=== PATIENT | male | born 1955 | race Caucasian/White ===

== ENCOUNTER → 2017-07-25 | Outpatient (CLI) | payer OTHER ==
[~2017-07-25] MED LIST: APRACLONIDINE 1% 0.1 ML OPH ONE; PILOCARPINE 2% 15ML OPH ONE; PROPARACAINE 0.5% 15 ML OPH ONE
== END | disposition home or self-care (01) ==
LOC: RAD 09:59
PROVIDERS: ATTEND Ophthalmology
DX: H40.20X0 Unspecified primary angle-closure glaucoma, stage unspecified (principal)
CPT/HCPCS: 66761; Z7610

== ENCOUNTER → 2017-08-27 | Outpatient (CLI) | END | disposition home or self-care (01) ==

== ENCOUNTER 2018-06-09 05:49 | Day surgery (SDC) | END 2018-06-09 12:28 | disposition home or self-care (01) ==

== ENCOUNTER → 2018-10-31 | Day surgery (SDC) | payer OTHER ==
[~2018-10-31] VITALS: Ht 177.8 cm; Wt 103.0 kg
[2018-10-31] VITALS (8 sets, daily range): BP systolic 101–118; BP diastolic 57–77; PULSE 82–100; RESP 13–18; Ht 177.8 cm; Wt 103.0 kg
[~2018-10-31] MED LIST changes: +ACETAMINOPHEN 325 MG TAB ONE; +ACETAMINOPHEN 325 MG TAB PO PRN; +AMIO200T4 PO; +APIX5TAB PO; -APRACLONIDINE 1% 0.1 ML OPH ONE; +ATOR40TA68 PO; +CLOP75TA27 PO; +DIGO125T19 ORAL; +EMPA25TA PO; +FENTAnyl 50 MCG/ML VIAL ONE; +GABA-526 PO; +GABA300C16 PO; +HEPARIN 1000 UNITS/ML 10 ML INJ ONE; +IODIXANOL LOCM 100 ML BTL ONE; +LACTATED RINGER'S 500 ML IV SCH; +LANT3I SC; +LIDOCAINE 1% (MDV) 20 ML INJ ONE; +METF100010 PO; +MIDAZOLAM 1 MG/ML 2 ML INJ ONE; +MTF1000T PO; +NAPR-688 PO; -PILOCARPINE 2% 15ML OPH ONE; -PROPARACAINE 0.5% 15 ML OPH ONE; +RIVA20TA5 PO; +TAPE100T6 PO
--- NOTE | 2018-10-31 13:01 | SIPON ---
Date/Time of Note Date/Time of Note DATE: 10/31/18 TIME: 12:59 Operative Report Preoperative Diagnosis R heel gangrene Postoperative Diagnosis same Operation/Procedure Performed aortogram, RLE runoff, R EXECUTIVE ADMINISTRATIVE ASST , R DOUGLAS angioplasty Surgeon see signature line assistant accounting manager none Anesthesia: moderate sedation Estimated blood loss: minimal Transfusion Required none Specimen none Grafts/Implants none Complications none VERO MAHONEY MD Oct 31, 2018 13:01
--- NOTE | 2018-10-31 14:18 | OPR ---
DATE OF OPERATION: 10/31/2018 PREOPERATIVE DIAGNOSIS: Right heel gangrene and nonhealing ulcer. POSTOPERATIVE DIAGNOSIS: Right heel gangrene and nonhealing ulcer. PROCEDURE PERFORMED: Aortogram, right lower extremity runoff and percutaneous angioplasty of the pos terior tibial artery and the anterior tibial artery. SURGEON: Vero Sheppard MD ANESTHESIA: Local with sedation. ESTIMATED BLOOD LOSS: Minimal. COMPLICATIONS: No intraprocedural complications. INDICATIONS: A 62-year-old diabetic hypertensive gentleman with CHF and ischemic cardiomyopathy. He presented months ago with a gangrenous right heel. It has been debrided extensively. I did an elvira ogram on him about 6 months ago and the posterior tibial artery is completely occluded distally. The anterior tibial artery had severe stenosis which I treated but he has just not been progressing. I no longer can feel the dorsalis pedis pulse. I brought him back today for angiogram and possible int ervention. PROCEDURE IN DETAILS: The patient was brought to the aquatic laborer and was placed on the table in the sup ine position. Left groin was prepped and draped in the usual sterile fashion. I began by infiltrkali suarez over the left common femoral artery using about 10 mL of 1% Xylocaine. I used a micropuncture nee dle to enter the artery under ultrasound guidance. An 0.018 wire was inserted through the needle int o the artery and then a 6-Mosotho sheath was advanced over the wire into the artery. I then advanced a Bentson wire and then Omniflush catheter into the infrarenal aorta, did an infrarenal aortogram. I then used the catheter and the wire to go up and over the bifurcation. I advanced the catheter down into the left SFA and then did runoff down the left lower extremity. FINDINGS OF ANGIOGRAPHY: The infrarenal aorta, internal and external iliac arteries bilaterally are widely patent. Both common, superficial and profunda femoral artery are widely patent. On the right , the popliteal artery is widely patent below the knee. The TP trunk is patent. The peroneal artery is patent and sort of dissipates in the mid calf. It is diseased. Posterior tibial artery has lynnette re diffuse disease from the mid portion down and then there is no reconstitution of the foot. I do n ot see any posterior tibial vessels in the foot itself. The anterior tibial artery had severe recurr ent stenosis about I would say 75% proximally and the rest of the anterior tibial artery is patent ac ross the ankle into the foot with patent dorsalis pedis, so I decided to treat the anterior tibial ar marii for sure. I gave the patient 5000 units of heparin intravenously, Advantage wire through the sh eath and into the left popliteal. I then advanced a 6-Mosotho 70 cm Loami Destination sheath over the wire into the right popliteal. I then used the Advantage wire and NaviCross catheter to engage t he anterior tibial artery and then used 0.014 Command wire which I advanced down through the stenosis in the proximal anterior tibial. I then treated the anterior tibial with severe stenosis with a 3 m m x 10 cm balloon to 12 atmospheres with no residual stenosis. It looked good. There was good flow down into the dorsalis pedis. There are ulcers at the heel so I decided to open up the posterior tib ial and get some flow even though it is occluded distally to see if I can get some flow down into the heel region, so I backed out the Command wire and then I advanced it down into the posterior tibial and I was able to get the wire to go all the way down into the foot. Even though the vessels were oc cluded proximal to that and I do not see any runoff, I was able to get the wire all the way down, so then I used a 2.5 x 22 cm balloon. I ballooned the posterior tibial artery below the medial malleolu s all the way up to its origin to 12 atmospheres. Completion angiogram showed the posterior tibial w as wide open all the way down across the ankle into the foot and there was very little runoff distall y through the plantar but there was several branches going towards the heel area, so the perfusion wa s definitely improved although not perfect. There was no complete pedal arch, but there was now flow into the heel region through the posterior tibial artery. The dorsalis pedis again was wide open an d anterior tibial now is wide open. I was happy with the results. I removed all the catheter sheath s and wires. I closed the left groin puncture site using a 6-Mosotho Angio-Seal device with good hemo stasis. Sterile dressing was applied. The patient was transferred to recovery room in stable condit ion. He tolerated the procedure well without any complications. Dictated By: VERO TAYLOR/DEXTER Conf#: [id number] DID#: [id number] CC: KIM ODELL MD; LIANA MANRIQUEZ DPM;*EndCC*
== END | disposition home or self-care (01) ==
LOC: SDS 10:09
PROVIDERS: ATTEND Surgery Vascular Surgery
DX: L97.419 Non-pressure chronic ulcer of right heel and midfoot with unspecified severity (principal); I96 Gangrene, not elsewhere classified; E11.9 Type 2 diabetes mellitus without complications; I10 Essential (primary) hypertension; I73.9 Peripheral vascular disease, unspecified
CPT/HCPCS: 75630; 80048; 81003; 82962; 85025; 85610; 85730; C1725; C1760; C1769; C1894; J1644; J2250; J3010; Q9967

== ENCOUNTER 2019-01-09 14:04 | Inpatient (IN) | payer OTHER ==
[~2019-01-09] VITALS: Ht 177.8 cm; Wt 102.7 kg
[~2019-01-09 14:04] MED LIST changes: -ACETAMINOPHEN 325 MG TAB ONE; -ACETAMINOPHEN 325 MG TAB PO PRN; -APIX5TAB PO; -ATOR40TA68 PO; -FENTAnyl 50 MCG/ML VIAL ONE; -GABA300C16 PO; -HEPARIN 1000 UNITS/ML 10 ML INJ ONE; -IODIXANOL LOCM 100 ML BTL ONE; -LACTATED RINGER'S 500 ML IV SCH; -LIDOCAINE 1% (MDV) 20 ML INJ ONE; -MIDAZOLAM 1 MG/ML 2 ML INJ ONE
[2019-01-09] MEDS ORDERED: VANCOMYCIN 1 GM (PMX) 250 ML IVPB STA (17:10)
--- NOTE | 2019-01-09 17:10 | ERD ---
ER Documentation Chief Complaint Chief Complaint sent by wound care for R foot wound HPI 63-year-old male with history of ischemic cardiomyopathy with AICD, diabetes and atrial fibrillation presenting for right heel wound. He is being seen by Dr. Sheppard in wound clinic and was told to go to the ER due to worsening condition. The wound began to close about a year ago. He developed necrosis of the heel which was debrided at another hospital. Angiogram was done about 2 months ago showing stenosis in the proximal anterior tibial artery with diffuse disease in the posterior tibial artery. He was able to get a balloon procedure done in the posterior tibial artery. Yesterday he was seen by Dr. Sheppard who could not feel dorsalis pedal pulse anymore. He stated in his note that "his heel wound looks terrible. There is more necrosis around the edges. He is having more pain". He recommended patient to go to the emergency room for admission and IV antibiotics. He has recommended the patient have a bypass surgery versus am putation. Patient is complaining of moderate to severe pain in the right heel, nonradiating, worse with touch and ambulation. No associated fevers or chills. No alleviating factors. He has bilateral foot burning pain at baseline due to his diabetes. ROS All systems reviewed and are negative except as per history of present illness. Medications Home Meds Reported Medications Amiodarone Hcl* (Amiodarone Hcl*) 200 Mg Tablet, 200 MG PO DAILY, #30 TAB 01/09/19 Digoxin* (Digitek*) 125 Mcg Tablet, 0.125 MG PO DAILY, TAB 01/09/19 Rivaroxaban* (Xarelto*) 20 Mg Tablet, 20 MG PO WITH DINNER, TAB 01/09/19 Clopidogrel Bisulfate* (Clopidogrel Bisulfate*) 75 Mg Tablet, 75 MG PO DAILY, #3 0 TAB 01/09/19 Empagliflozin (Jardiance) 25 Mg Tablet, 25 MG PO DAILY, TAB 01/09/19 Insulin Glargine,Hum.rec.anlog (Basaglar Kwikpen U-100) 100 Unit/1 Ml Insuln .pen, 18 UNIT SC QHS, EA 01/09/19 Sulfamethoxazole/Trimethoprim* (Bactrim Ds* Tablet) 1 Each Tablet, 1 TAB PO BID, TAB FOR 10 DAYS,START TAKING 01/06/19 01/09/19 Tapentadol Hcl (Nucynta) 100 Mg Tablet, 100 MG PO BID, TAB 01/09/19 Gabapentin* (Gabapentin*) 600 Mg Tablet, 600 MG PO DAILY, #60 TAB 01/09/19 Metformin Hcl* (Metformin Hcl*) 1,000 Mg Tablet, 1000 MG PO WITH BREAKFAST DINNE, #60 TAB 01/09/19 Discontinued Reported Medications Amiodarone Hcl* (Amiodarone Hcl*) 200 Mg Tablet, 200 MG PO DAILY, #30 TAB 10/31/18 Digoxin* (Digox*) 125 Mcg Tablet, 125 MCG ORAL am 10/31/18 Gabapentin* (Gabapentin*) 600 Mg Tablet, 600 MG PO hs, #60 TAB 10/31/18 Naproxen* (Naproxen*) 500 Mg Tablet, 500 MG PO DAILY, TAB 10/31/18 Rivaroxaban* (Xarelto*) 20 Mg Tablet, 20 MG PO WITH DINNER, TAB 10/31/18 Clopidogrel Bisulfate (Clopidogrel) 75 Mg Tablet, 75 MG PO DAILY, #30 TAB 10/31/18 Tapentadol Hcl (Nucynta) 100 Mg Tablet, 100 MG PO Q4 PRN for PAIN LEVEL 6-10, TAB 10/31/18 Empagliflozin (Jardiance) 25 Mg Tablet, 25 MG PO DAILY, TAB 10/31/18 Insulin Glargine* (Lantus*) 100 Unit/Ml Soln, 20 UNIT SC QHS, #1 VIAL 10/31/18 Metformin* (Glucophage*) 1,000 Mg Tablet, 1000 MG PO WITH BREAKFAST DINNE, #30 TAB 10/31/18 Metformin Hcl* (Metformin Hcl*) 1,000 Mg Tablet, 1000 MG PO WITH BREAKFAST DINNE, #60 TAB 06/09/18 Amiodarone Hcl* (Amiodarone Hcl*) 200 Mg Tablet, 200 MG PO DAILY, #30 TAB 06/09/18 Allergies Allergies: Coded Allergies: No Known Allergy (Unverified , 01/09/19) PMhx/Soc History of Surgery: Yes (CARDIAC STENTS, CABG,AICD,EPIDURALS FOR PAIN) Anesthesia Reaction: No Hx 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 Disorder: Yes (NEUROPATHY) Hx Respiratory Disorders: Yes (PNA) Hx Cardiac Disorders: Yes (CAD WITH STENTS, ) Hx Psychiatric Problems: No Hx Miscellaneous Medical Probl: No Hx Alcohol Use: Yes (1 YEAR AGO) Hx Substance Use: No Hx Tobacco Use: Yes FmHx Family History: diabetes Physical Exam Vitals Vital Signs Date Temp Pulse Resp B/P (MAP) Pulse Ox O2 O2 Flow FiO2 Time Delivery Rate 01/09/19 68 14 112/76 98 Room Air 18:00 (88) 01/09/19 71 16 107/68 98 Room Air 16:55 (81) 01/09/19 98.1 77 20 107/62 97 16:55 (77) Physical Exam Const: No acute distress, nontoxic Head: Atraumatic Eyes: Normal Conjunctiva ENT: Normal External Ears, Nose and Mouth. Neck: Full range of motion. No meningismus. Resp: Clear to auscultation bilaterally Cardio: Regular rate and rhythm, no murmurs. 1+ DP pulse right lower extremity, difficult to palpate right PT pulse. 1+ DP and PT pulses left lower extremity Abd: Soft, non tender, non distended. Normal bowel sounds Skin: See extremity exam. No petechiae or rashes Back: No midline or flank tenderness Ext: No cyanosis, or edema. right foot with 3 x 3 cm deep wound over the calcaneus. Surrounding erythema. No active discharge. Tender to palpation surrounding the wound. Foot otherwise nontender without erythema. Neur: Awake and alert Psych: Normal Mood and Affect Result Diagram: 01/09/19171601/09/191716 Results 24 hrs Laboratory Tests Test 01/09/19 17:17 White Blood Count 9.9 10^3/ul Red Blood Count 4.70 10^6/ul Hemoglobin 13.8 g/dl Hematocrit 43.0 % Mean Corpuscular Volume 91.5 fl Mean Corpuscular Hemoglobin 29.4 pg Mean Corpuscular Hemoglobin Concent 32.1 g/dl Red Cell Distribution Width 14.6 % Platelet Count 257 10^3/UL Mean Platelet Volume 11.0 fl Immature Granulocytes % 0.400 % Neutrophils % 58.0 % Lymphocytes % 29.8 % Monocytes % 8.4 % Eosinophils % 3.1 % Basophils % 0.3 % Nucleated Red Blood Cells % 0.0 /100WBC Immature Granulocytes # 0.040 10^3/ul Neutrophils # 5.7 10^3/ul Lymphocytes # 3.0 10^3/ul Monocytes # 0.8 10^3/ul Eosinophils # 0.3 10^3/ul Basophils # 0.0 10^3/ul Nucleated Red Blood Cells # 0.0 10^3/ul Erythrocyte Sedimentation Rate 26 mm/Hr Prothrombin Time 12.4 Sec Prothrombin Time Ratio 1.0 INR International Normalized Ratio 0.91 Activated Partial Thromboplast Time 23.5 Sec Sodium Level 141 mmol/L Potassium Level 4.9 mmol/L Chloride Level 108 mmol/L Carbon Dioxide Level 21 mmol/L Anion Gap 12 Blood Urea Nitrogen 18 mg/dl Creatinine 0.57 mg/dl Est Glomerular Filtrat Rate mL/min > 60 mL/min Glucose Level 125 mg/dl Calcium Level 9.8 mg/dl Total Bilirubin 0.2 mg/dl Direct Bilirubin 0.00 mg/dl Indirect Bilirubin 0.2 mg/dl Aspartate Amino Transf (AST/SGOT) 26 IU/L Alanine Aminotransferase (ALT/SGPT) 12 IU/L Alkaline Phosphatase 102 IU/L C-Reactive Protein < 0.5 mg/dl Total Protein 7.9 g/dl Albumin 4.3 g/dl Globulin 3.60 g/dl Albumin/Globulin Ratio 1.19 Current Medications Medications Dose Sig/Pritesh Start Time Status Last (Trade) Ordered Route PRN Stop Time Admin Dose Reason Admin Vancomycin 250 ml @ ONCE STAT 01/09/19 01/09/19 HCl 125 mls/hr IVPB 17:10 01/09/19 18:06 19:09 Cefepime HCl 50 ml @ ONCE ONCE 01/09/19 DC 01/09/19 100 mls/hr IVPB 17:30 01/09/19 17:32 17:59 Morphine 6 mg ONCE ONCE 01/09/19 DC 01/09/19 Sulfate IV 18:30 01/09/19 18:14 (morphine) 18:31 Ondansetron 4 mg BRIDGE ORDER 01/09/19 HCl (Zofran PRN IV 18:30 01/10/19 Inj) NAUSEA/VOMITI 18:29 NG 650 mg ER BRIDGE 01/09/19 Acetaminophen PRN PO 18:30 01/10/19 (Tylenol .MILD PAIN 18:29 Tab) 1-3 OR TEMP Procedures/MDM EMERGENT LABS AND DIAGNOSTIC STUDIES: Lab Results above were reviewed and interpreted by me. CBC: no anemia or evidence of infection CMP: No evidence of clinically significant electrolyte abnormality, acidosis, renal failure, hypoglycemia, liver disease, or biliary obstruction ESR elevated but CRP is within normal limits Coags unremarkable, no evidence of coagulopathy 1 12-lead EKG was interpreted by Liz Avalos MD: Normal Sinus Rhythm Normal axis Normal intervals No acute ST or T wave changes suggestive of acute ischemia or STEMI. Radiology Results as interpreted by Radiology below were reviewed by SJamie Avalos MD: Chest x-ray shows no acute abnormalities Initial Nursing notes reviewed. Previous Medical Records requested via the Electronic Health Record. EMERGENCY DEPARTMENT COURSE / MEDICAL DECISION MAKING: Patient is presenting with left heel chronic wound with acute infection. There are no signs of sepsis. Patient was given pain medications and started on IV antibiotics. Blood cultures were collected prior to IV antibiotics. There is n o evidence of critical ischemic limb. Patient will be admitted for further management and surgical intervention. Accepting Care Team: Current data and ongoing care discussed. Time: Time of admission Primary Provider: Dr. Mann Consulting: Dr. Sheppard Outstanding Data: none Departure Diagnosis: Primary Impression: Infected wound Additional Impression: Chronic wound of extremity Condition: SUSAN Malik MD January 09, 2019 17:10
[2019-01-09] MEDS ORDERED: CEFEPIME 2GM/50 ML (PMX) 50 ML IVPB ONE (17:30)
[2019-01-09] MEDS ORDERED: METF100010 PO (17:47)
[2019-01-09] MEDS ORDERED: TAPE100T6 PO (17:48)
[2019-01-09] MEDS ORDERED: GABA-526 PO (17:48)
[2019-01-09] MEDS ORDERED: INSU100I33 SC (17:49)
[2019-01-09] MEDS ORDERED: SULF1TAB31 PO (17:49)
[2019-01-09] MEDS ORDERED: CLOP75TA19 PO (17:50)
[2019-01-09] MEDS ORDERED: RIVA20TA5 PO (17:50)
[2019-01-09] MEDS ORDERED: EMPA25TA PO (17:50)
[2019-01-09] MEDS ORDERED: AMIO200T4 PO (17:51)
[2019-01-09] MEDS ORDERED: DIGO125T PO (17:51)
[2019-01-09] MEDS ORDERED: ACETAMINOPHEN 325 MG TAB PO PRN ×2 (18:30→20:30)
[2019-01-09] MEDS ORDERED: morphine 10 MG INJ IV ONE (18:30)
[2019-01-09] MEDS ORDERED: ONDANSETRON 4 MG INJ IV PRN ×2 (18:30→20:30)
[2019-01-09 20:00] VITALS: BP 119/74; PULSE 69; RESP 19
[2019-01-09 20:19] VITALS: Ht 177.8 cm; Wt 102.7 kg
[2019-01-09] MEDS: ACCU-CHEK XX SCH (21:00)
[2019-01-09] MEDS ORDERED: GLUCAGON 1 MG INJ IM PRN (21:30)
[2019-01-09] MEDS ORDERED: GLUCOSE GEL 15 GRAM TUBE PO PRN ×2 (21:30)
[2019-01-09] MEDS ORDERED: GLUCOSE GEL 15 GRAM TUBE BUCCAL PRN (21:30)
[2019-01-09] MEDS ORDERED: DEXTROSE 50% 50 ML SYRINGE IV PRN ×2 (21:30)
[2019-01-09] MEDS: morphine 4 MG/ML VIAL IV PRN (21:49)
[2019-01-09] MEDS ORDERED: TRIMETHOPRIM/SULFAMETHOX (DS) TAB PO SCH (22:30)
[2019-01-09] MEDS ORDERED: INSULIN GLARGINE [LANtus] 3 ML PEN SC SCH (22:30)
[2019-01-09] MEDS: INSULIN ASPART [NOVOLOG] 3 ML PEN SC SCH (23:33)
[2019-01-09] MEDS: INSULIN GLARGINE [LANTus] (100 UNITS/ML) SYG SC SCH (23:36)
--- NOTE | 2019-01-10 00:02 | HP ---
DATE OF ADMISSION: 01/09/2019 CHIEF COMPLAINT: Necrotic right heel wound. HISTORY OF PRESENT ILLNESS: The patient is a 63-year-old gentleman with history of coronary artery d isease, status post CABG, also status post AICD placement. The patient also has history of hypertens ion, diabetes, peripheral vascular disease, status post aortogram and right lower extremity runoff an d percutaneous angioplasty of the posterior tibial artery and anterior tibial artery in 10/2018. The patient, however, continued to have worsening of his wound. The patient is being followed by Dr. Claus Mata from podiatry standpoint and Dr. Bakari Sheppard from a medical standpoint. The patient kassie torres is noncompliant and has missed several appointments in ____. In 11/2018, he underwent excisio nal debridement of the right heel. The patient apparently was also placed on oral antibiotic as an o utpatient. Details are not available. The patient back in October 2018 had a wound culture from [facility] heel, which revealed E. coli, but only scant growth, which was sensitive to third generation ceph alosporins and aminoglycosides. The patient was sent to ER by Dr. Sheppard for further evaluation and m anagement. The patient was seen in ER and was found to have normal white count. The patient did not have any fever or chills. The patient did have significant pain and therefore, patient was admitted for evaluation and management. The patient did have his defibrillator go off a couple of times back in 11/2018. The patient went to see Dr. Ronnell Eduardo who had been following him from electrophysiology standpoint and possibly als o from cardiac standpoint. The patient was told that his AICD [facility] needs to be [facility], [facility] or not. The patient denied any anginal chest pain. N o reported fever or chills. No reported nausea or vomiting. No reported headache, dizziness or sync ope. REVIEW OF SYSTEMS: Rest of the review of systems is unremarkable. PAST MEDICAL HISTORY: As stated above. PAST MEDICAL HISTORY: As stated above. ALLERGIES: NONE. SOCIAL HISTORY: The patient intermittently smoked a few cigarettes. No history of alcohol abuse. N o history of drug abuse. FAMILY HISTORY: Noncontributory. PHYSICAL EXAMINATION: GENERAL: The patient is awake, alert and fairly oriented. VITAL SIGNS: Temperature 97.3, pulse 69, respiration 19, blood pressure 190/74, O2 saturation 99% on room air. HEENT: Atraumatic, normocephalic. Conjunctivae normal. Oropharynx clear. NECK: Supple. No mass or thyromegaly. CHEST: Fairly clear. CARDIOVASCULAR: S1, S2 normal, no murmur. ABDOMEN: Soft, nondistended and nontender. Bowel sounds plus. EXTREMITIES: No leg edema. Right heel has necrotic ulcer, I could not appreciate pedal pulses. Lef t foot pedal pulses palpable. NEUROLOGIC: The patient is awake, alert, fairly oriented with no gross focal deficit. LABORATORY DATA: WBC 9.9, hemoglobin 13.8 and platelet 257. Sodium 141, potassium 4.9, BUN 18 and c reatinine 0.5. Liver enzymes unremarkable. Coagulation profile unremarkable. EKG revealed normal s inus rhythm, no acute ST or T changes. IMPRESSION: 1. Right heel necrotic wound. 2. Peripheral vascular disease status post REFERRAL MANAGER, right lower extremity. 3. Coronary artery disease, status post coronary artery bypass graft. 4. Status post AICD. 5. Hypertension. 6. Diabetes. PLAN: The patient will be admitted on medical floor. The patient will be given a diabetic diet and will be continued on Lantus, oral hypoglycemic and sliding scale insulin. We will hold off on antico agulant, but will continue Plavix for now. Apparently, he was already on antibiotic, Septra. We nik l obtain ID consultation for further guidance. Cardiology consult with Dr. Foster has also been req uested for cardiac clearance. Echocardiogram will be obtained. Meanwhile, we will obtain lipid pane l and hemoglobin A1c. The patient did receive IV vancomycin and cefepime in the ER. I am not sure w hether new wound cultures were obtained or not. However, blood cultures were obtained. Meanwhile, C -reactive protein was less than 0.5. Sed rate is 26. We will continue to follow. Dictated By: KRISTIN ASTUDILLO/DEXTER Conf#: [id number] DID#: [id number]
[2019-01-10] MEDS: HYDROCODONE/APAP (5/325) TAB PO PRN ×4 (00:18→23:01)
[2019-01-10] MEDS: morphine 4 MG/ML VIAL IV PRN ×5 (01:57→20:33)
[2019-01-10] MEDS: ACCU-CHEK XX SCH ×5 (01:59→20:42)
[2019-01-10 02:44] VITALS: BP 97/57; PULSE 65; RESP 20
[2019-01-10 07:28] VITALS: BP 107/66; PULSE 65; RESP 20
[2019-01-10] MEDS: INSULIN ASPART [NOVOLOG] 3 ML PEN SC SCH ×4 (08:00→20:42)
[2019-01-10] MEDS: GABAPENTIN 300 MG CAP PO SCH (09:12)
[2019-01-10] MEDS: LINAGLIPTIN 5 MG TABLET PO SCH (09:14)
[2019-01-10] MEDS: EMPAGLIFLOZIN 10 MG TABLET PO SCH (09:14)
[2019-01-10] MEDS: CLOPIDOGREL 75 MG TAB PO SCH (09:15)
[2019-01-10] MEDS: AMIODARONE 200 MG TAB PO SCH (09:16)
[2019-01-10 12:37] VITALS: BP 141/83; PULSE 82; RESP 18
[2019-01-10] MEDS: DIGOXIN 0.125 MG TAB PO SCH (12:40)
--- NOTE | 2019-01-10 13:29 | PN ---
Date/Time of Note Date/Time of Note DATE: 01/10/19 TIME: 13:28 Assessment/Plan VTE Prophylaxis Risk score (from [facility] [place]0 risk: 5 SCD applied (from [facility] [place]): No SCD contraindicated: other Pharmacological prophylaxis: LMWH Lines/Catheters IV Catheter Type (from [facility]): [place] Assessment/Plan Hospital Course 1. Right heel necrotic wound. 2. Peripheral vascular disease status post LOGISTICS COORDINATOR, right lower extremity. 3. Coronary artery disease, status post coronary artery bypass graft. 4. Status post AICD. 5. Hypertension. 6. Diabetes. Result Diagram: 01/09/19 1717 01/10/19 0502 Results 24hrs Laboratory Tests Test 01/09/19 17:17 01/09/19 21:48 01/09/19 23:32 01/10/19 05:02 White Blood Count 9.9 Red Blood Count 4.70 Hemoglobin 13.8 L Hematocrit 43.0 Mean Corpuscular Volume 91.5 Mean Corpuscular 29.4 Hemoglobin Mean Corpuscular 32.1 Hemoglobin Concent Red Cell Distribution 14.6 H Width Platelet Count 257 Mean Platelet Volume 11.0 H Immature Granulocytes % 0.400 Neutrophils % 58.0 Lymphocytes % 29.8 Monocytes % 8.4 Eosinophils % 3.1 Basophils % 0.3 Nucleated Red Blood 0.0 Cells % Immature Granulocytes # 0.040 H Neutrophils # 5.7 Lymphocytes # 3.0 H Monocytes # 0.8 Eosinophils # 0.3 Basophils # 0.0 Nucleated Red Blood 0.0 Cells # Erythrocyte 26 H Sedimentation Rate Prothrombin Time 12.4 12.4 Prothrombin Time Ratio 1.0 1.0 INR International 0.91 0.91 Normalized Ratio Activated 23.5 26.2 Partial Thromboplast Time Sodium Level 141 140 Potassium Level 4.9 4.3 Chloride Level 108 105 Carbon Dioxide Level 21 28 Anion Gap 12 7 Blood Urea Nitrogen 18 16 Creatinine 0.57 L 0.56 L Est Glomerular Filtrat > 60 > 60 Rate mL/min Glucose Level 125 114 Calcium Level 9.8 9.2 Total Bilirubin 0.2 Direct Bilirubin 0.00 Indirect Bilirubin 0.2 Aspartate Amino 26 Transf (AST/SGOT) Alanine 12 L Aminotransferase (ALT/SG PT) Alkaline Phosphatase 102 C-Reactive Protein < 0.5 Total Protein 7.9 Albumin 4.3 Globulin 3.60 H Albumin/Globulin Ratio 1.19 Bedside Glucose 112 163 Hemoglobin A1c 7.6 H Triglycerides Level 89 Cholesterol Level 108 LDL Cholesterol, 65 Calculated HDL Cholesterol 25 L Cholesterol/HDL Ratio 4.3 Test 01/10/19 07:54 01/10/19 12:28 Bedside Glucose 109 92 Subjective 24 Hr Interval Summary Free Text/Dictation Patient complain of pain in right knee Exam/Review of Systems Exam Vitals Vital Signs Date Temp Pulse Resp B/P (MAP) Pulse Ox O2 O2 Flow FiO2 Time Delivery Rate 01/10/19 82 18 141/83 100 Room Air 12:37 (102) 01/10/19 97.5 07:28 Intake and Output 01/09/19 01/09/19 01/10/19 1515:00 23:00 07:00 IntakeIntake Total 120 ml BalanceBalance 120 ml Constitutional: well developed Head: normocephalic, atraumatic Neck: supple Respiratory: clear to auscultation Cardiovascular: regular rate and rhythm Gastrointestinal: soft, non-tender Extremities: normal pulses Results Results 24hrs Laboratory Tests Test 01/09/19 17:17 01/09/19 21:48 01/09/19 23:32 01/10/19 05:02 White Blood Count 9.9 Red Blood Count 4.70 Hemoglobin 13.8 L Hematocrit 43.0 Mean Corpuscular Volume 91.5 Mean Corpuscular 29.4 Hemoglobin Mean Corpuscular 32.1 Hemoglobin Concent Red Cell Distribution 14.6 H Width Platelet Count 257 Mean Platelet Volume 11.0 H Immature Granulocytes % 0.400 Neutrophils % 58.0 Lymphocytes % 29.8 Monocytes % 8.4 Eosinophils % 3.1 Basophils % 0.3 Nucleated Red Blood 0.0 Cells % Immature Granulocytes # 0.040 H Neutrophils # 5.7 Lymphocytes # 3.0 H Monocytes # 0.8 Eosinophils # 0.3 Basophils # 0.0 Nucleated Red Blood 0.0 Cells # Erythrocyte 26 H Sedimentation Rate Prothrombin Time 12.4 12.4 Prothrombin Time Ratio 1.0 1.0 INR International 0.91 0.91 Normalized Ratio Activated 23.5 26.2 Partial Thromboplast Time Sodium Level 141 140 Potassium Level 4.9 4.3 Chloride Level 108 105 Carbon Dioxide Level 21 28 Anion Gap 12 7 Blood Urea Nitrogen 18 16 Creatinine 0.57 L 0.56 L Est Glomerular Filtrat > 60 > 60 Rate mL/min Glucose Level 125 114 Calcium Level 9.8 9.2 Total Bilirubin 0.2 Direct Bilirubin 0.00 Indirect Bilirubin 0.2 Aspartate Amino 26 Transf (AST/SGOT) Alanine 12 L Aminotransferase (ALT/SG PT) Alkaline Phosphatase 102 C-Reactive Protein < 0.5 Total Protein 7.9 Albumin 4.3 Globulin 3.60 H Albumin/Globulin Ratio 1.19 Bedside Glucose 112 163 Hemoglobin A1c 7.6 H Triglycerides Level 89 Cholesterol Level 108 LDL Cholesterol, 65 Calculated HDL Cholesterol 25 L Cholesterol/HDL Ratio 4.3 Test 01/10/19 07:54 01/10/19 12:28 Bedside Glucose 109 92 Medications Medication Current Medications Ondansetron HCl (Zofran Inj) 4 mg BRIDGE ORDER PRN IV NAUSEA/VOMITING; Start 01/09/19 at 18:30; Stop 01/10/19 at 18:29 Acetaminophen (Tylenol Tab) 650 mg ER BRIDGE PRN PO .MILD PAIN 1-3 OR TEMP; Start 01/09/19 at 18:30; Stop 01/10/19 at 18:29 Amiodarone HCl (Cordarone) 200 mg DAILY PO Last administered on 01/10/19 09:16; Admin Dose 200 MG; Start 01/10/19 at 09:00 Clopidogrel Bisulfate (plaVIX) 75 mg DAILY PO Last administered on 01/10/19 09: 15; Admin Dose 75 MG; Start 01/10/19 at 09:00 Digoxin (Digoxin) 0.125 mg DAILY@1300 PO Last administered on 01/10/19at 12:40; Admin Dose 0.125 MG; Start 01/10/19 at 13:00 Gabapentin (Neurontin) 600 mg DAILY PO Last administered on 01/10/19 09:12; Admin Dose 600 MG; Start 01/10/19 at 09:00 Empaglifozin (Jardiance) 25 mg DAILY PO Last administered on 01/10/19 09:14; Admin Dose 25 MG; Start 01/10/19 at 09:00 Linagliptin (Tradjenta) 5 mg DAILY PO Last administered on 01/10/19 09:14; Admin Dose 5 MG; Start 01/10/19 at 09:00 Diagnostic Test (Pha) (Accu-Chek) 1 ea AC MEALS AND BEDTIME XX ; Start 01/09/19 at 21:00 Acetaminophen (Tylenol Tab) 650 mg Q4H PRN PO MILD PAIN(1-3)OR ELEVATED TEMP; Start 01/09/19 at 20:30 Acetaminophen/ Hydrocodone Bitart ([place] (5/325)) 1 tab Q4H PRN PO MODERATE PAIN LEVEL 4-6 Last administered on 01/10/19at 09:15; Admin Dose 1 TAB; Start 01/09/19 at 20:30 Morphine Sulfate (morphine) 3 mg Q4H PRN IV SEVERE PAIN LEVEL 7-10 Last administered on 01/10/19at 11:05; Admin Dose 3 MG; Start 01/09/19 at 20:30 Ondansetron HCl (Zofran Inj) 4 mg Q6H PRN IV NAUSEA AND/OR VOMITING; Start 01/09/19 at 20:30 Diagnostic Test (Pha) (Accu-Chek) 1 ea 02 XX ; Start 01/10/19 at 02:00 Insulin Aspart (Novolog Insulin Pen) NOVOLOG *MILD* ALGORITHM WITH MEALS BEDTIME SC ; Start 01/09/19 at 22:30 Miscellaneous Information 1 ea NOTE XX ; Start 01/09/19 at 21:30 Glucose (Glutose) 15 gm Q15M PRN PO DECREASED GLUCOSE; Start 01/09/19 at 21:30 Glucose (Glutose) 22.5 gm Q15M PRN PO DECREASED GLUCOSE; Start 01/09/19 at 21:30 Dextrose (D50w Syringe) 25 ml Q15M PRN IV DECREASED GLUCOSE; Start 01/09/19 at 21:30 Dextrose (D50w Syringe) 50 ml Q15M PRN IV DECREASED GLUCOSE; Start 01/09/19 at 21:30 Glucagon (Glucagen) 1 mg Q15M PRN IM DECREASED GLUCOSE; Start 01/09/19 at 21:30 Glucose (Glutose) 15 gm Q15M PRN BUCCAL DECREASED GLUCOSE; Start 01/09/19 at 21:30 Insulin Glargine (Lantus) 18 units QHS SC Last administered on 01/09/19at 23:36; Admin Dose 18 UNITS; Start 01/09/19 at 22:30 PARISA VARGAS January 10, 2019 13:29
[2019-01-10 15:51] VITALS: BP 115/57; PULSE 70; RESP 20
--- NOTE | 2019-01-10 18:52 | RADRPT ---
Echocardiogram Report Patient Name: SHANELL STEVENSONPatient ID: [id number] : 1955 (63y 1m)Study Date: 01/10/2019 11:40:20 AM Gender: MAccession #: [id number] Tech: Santiago Sortoagawa [facility] Location: [address] Ref.Physician: KRISTIN PRYOR Height(Cm): BSA: Weight(Kg): Quality: AdequateAccount #: Procedures: Echocardiographic Report: Transthoracic echocardiogram with complete 2D, M-Mode, and doppler examination. Indications: Pre-op. Measurements: 2D/M Mode Doppler Measurement Value Normal Range Measurement Value Normal Range LVIDd 2D 6.5 [ 4.2 - 5.8 ] cm AV Peak Leopoldo 1.2 [ 100.0 - 170.0 ] cm/sec LVIDs 2D 5.9 [ 2.5 - 4.0 ] cm AV Peak PG 6.0 [ 2.0 - 9.0 ] mmHg LVPWd 2D 0.9 [ 0.6 - 1.0 ] cm LVOT Peak Leopoldo 1.0 [ 70.0 - 110.0 ] cm/sec IVSd 2D 0.9 [ 0.6 - 1.0 ] cm LVOT Peak PG 4.0 [ 2.0 - 6.0 ] mmHg AoR Diam 2D 2.9 [ 2.6 - 3.4 ] cm MV E Peak Leopoldo 0.7 [ 60.0 - 130.0 ] cm/sec EDV 2D 215.0 [ 62.0 - 150.0 ] ml MV A Peak Leopoldo 0.5 [ 100.0 - 120.0 ] cm/sec ESV 2D 173.0 [ 21.0 - 61.0 ] ml MV E/A 1.5 [ 0.8 - 1.5 ] ratio EF 2D 19.5 [ 52.0 - 72.0 ] percent MV Decel Time 229 [ 104 - 258 ] msec LA Dimen 2D 4.4 [ 3.0 - 4.0 ] cm Lat E` Leopoldo 0.1 [ 10.0 - 15.0 ] cm/sec Lateral E/E` 7.5 [ 1.0 - 2.0 ] ratio MV E/A 1.5 [ 0.8 - 1.5 ] ratio TR Peak Leopoldo 2.4 [ 100.0 - 280.0 ] cm/sec TR Peak PG 23.0 mmHg RVSP 26.0 [ 10.0 - 36.0 ] mmHg Findings: Left Ventricle: Normal left ventricular wall thickness. Mild enlargement of left ventricle cavity. Severe global left ventricular systolic dysfunction. Ejection fraction is visually estimated at 25 %. Tissue Doppler/Mitral Doppler indices are consistent with pseudonormalization with mildly elevated left atrial pressure (Stage II diastolic dysfunction). Right Ventricle: Normal right ventricular size. Normal right ventricular systolic function. Linear artifact in right ventricle suggestive of catheter, pacer lead, or ICD lead. Left Atrium: There is mild enlargement of left atrium. Right Atrium: The right atrium is normal in size. Mitral Valve: Mild mitral leaflet calcification. Mild mitral annular calcification. Trace mitral regurgitation. Aortic Valve: No hemodynamically significant aortic stenosis by doppler. Aortic cusps appear mildly calcified. Tricuspid Valve: Normal appearance of the tricuspid valve. Estimated peak PA systolic pressure 26 mmHg. There is trace tricuspid regurgitation. Pericardium: Normal pericardium with no significant pericardial effusion. Aorta: Normal aortic root. IVC: Normal size and normal respiratory collapse consistent with normal right atrial pressure. Conclusions: Normal left ventricular wall thickness. Mild enlargement of left ventricle cavity. Severe global left ventricular systolic dysfunction. Ejection fraction is visually estimated at 25 %. Tissue Doppler/Mitral Doppler indices are consistent with pseudonormalization with mildly elevated left atrial pressure (Stage II diastolic dysfunction). There is mild enlargement of left atrium. Mild mitral leaflet calcification. Mild mitral annular calcification. Trace mitral regurgitation. Normal appearance of the tricuspid valve. Estimated peak PA systolic pressure 26 mmHg. There is trace tricuspid regurgitation. Electronically Signed By: Bakari Foster 2019-01-10 18:51:54 PDT
[2019-01-10 19:29] VITALS: BP 107/55; PULSE 70; RESP 18
[2019-01-10] MEDS: INSULIN GLARGINE [LANTus] (100 UNITS/ML) SYG SC SCH (20:46)
--- NOTE | 2019-01-10 23:12 | CONS ---
Assessment/Plan Assessment/Plan Hospital Course (Demo Recall) - infections of non-healing ulcer of R heel - chronic wound of R heel, in the past the wound culture grew E. coli - h/o OM of R foot, h/o 6 weeks of IV vancomycin and 2nd antibiotic in 2018 - trauma to R knee - CAD - PVD - h/o aortogram, RLE runoff and percutaneous angioplasty of the posterior tibial artery and the anterior tibial artery in 10/2018 - h/o CABG - h/o AICD placement - DM recommendations - pending: blood culture x2 - ordered: wound culture, aerobic and anaerobic bacteria, ESR, CT to r/o osteomyelitis - start IV vancomycin, cefepime and metronidazole (01/11/2019-); will adjust the antibiotics based on the final culture results management d/w Pt and his RN Consultation Date/Type/Reason Admit Date/Time January 09, 2019 at 18:17 Date of Consultation: January 10, 2019 Type of Consult ID Reason for Consultation non-healing ulcer of R heel Requesting Provider: KRISTIN PRYOR MD Date/Time of Note DATE: 01/10/19 TIME: 23:10 Hx of Present Illness This is a 63 yo male with CAD, PVD and DM who was sent to ER by Dr. Sheppard for infection of chronic wound of R heel. Approximately one year ago Pt sustained a small ulcer on R heel. This eventually became larger, necrotic and infected. Pt was seen by two ux consultant, and finally admitted at [facility]. Pt was informed that the infection was reaching the bone. As a result Pt completed 6 weeks of IV vancomycin and another antibiotic. His ID resourcing consultant at that time was Dr. Calvillo at [facility]. He was getting care from two podiatrists. The wound was lightly debrided. Pt was informed that the infection was controlled based on the results of his blood tests (?ESR). In 10/2018, Pt underwent artogram, RLE runoff and percutaneous angioplasty of the posterior tibial artery and the anterior tibial artery. Around that time, the wound of R heel became necrotic; started producing green, malodorous purulence. Pt has diminished sensation of toes and feet due to diabetic neuropathy. For the last two weeks, the wound continued to drain purulence, R foot became swollen and very painful. It is rated at 10 on the 1-10 scale. Pt was advised to present at ER of [facility] by Dr. Sheppard. As he entered the [facility] hospital, he fell off from the scooter and hit R knee. As a result of this, Pt is in considerable pain of RLE, including knee, hamstring and feel. Dr. Pryor requested ID consultation on this Pt. Constitutional: No chills, No diaphoresis, No febrile Eyes: no complaints ENT: sore throat Respiratory: cough Cardiovascular: no complaints Gastrointestinal: no complaints Genitourinary: no complaints Musculoskeletal: bone/joint pain, restricted range of motion, swelling Skin: skin lesions (wound of R heel has some yoana that looked pale) Neurologic: no complaints, other (normally has diminished sensation of b/l toes) Endocrine: no complaints Lymphatic: no complaints Psychological: no complaints, nl mood/affect Past Medical History Medical History: congestive heart failure, coronary artery disease, diabetes, high cholesterol, hypertension Home Meds Reported Medications Amiodarone Hcl* (Amiodarone Hcl*) 200 Mg Tablet, 200 MG PO DAILY, #30 TAB 01/09/19 Digoxin* (Digitek*) 125 Mcg Tablet, 0.125 MG PO DAILY, TAB 01/09/19 Rivaroxaban* (Xarelto*) 20 Mg Tablet, 20 MG PO WITH DINNER, TAB 01/09/19 Clopidogrel Bisulfate* (Clopidogrel Bisulfate*) 75 Mg Tablet, 75 MG PO DAILY, #30 TAB 01/09/19 Empagliflozin (Jardiance) 25 Mg Tablet, 25 MG PO DAILY, TAB 01/09/19 Insulin Glargine,Hum.rec.anlog (Basaglar Kwikpen U-100) 100 Unit/1 Ml Insuln.pen, 18 UNIT SC QHS, EA 01/09/19 Sulfamethoxazole/Trimethoprim* (Bactrim Ds* Tablet) 1 Each Tablet, 1 TAB PO BID, TAB FOR 10 DAYS,START TAKING 01/06/19 01/09/19 Tapentadol Hcl (Nucynta) 100 Mg Tablet, 100 MG PO BID, TAB 01/09/19 Gabapentin* (Gabapentin*) 600 Mg Tablet, 600 MG PO DAILY, #60 TAB 01/09/19 Metformin Hcl* (Metformin Hcl*) 1,000 Mg Tablet, 1000 MG PO WITH BREAKFAST DINNE, #60 TAB 01/09/19 Discontinued Reported Medications Amiodarone Hcl* (Amiodarone Hcl*) 200 Mg Tablet, 200 MG PO DAILY, #30 TAB 10/31/18 Digoxin* (Digox*) 125 Mcg Tablet, 125 MCG ORAL am 10/31/18 Gabapentin* (Gabapentin*) 600 Mg Tablet, 600 MG PO hs, #60 TAB 10/31/18 Naproxen* (Naproxen*) 500 Mg Tablet, 500 MG PO DAILY, TAB 10/31/18 Rivaroxaban* (Xarelto*) 20 Mg Tablet, 20 MG PO WITH DINNER, TAB 10/31/18 Clopidogrel Bisulfate (Clopidogrel) 75 Mg Tablet, 75 MG PO DAILY, #30 TAB 10/31/18 Tapentadol Hcl (Nucynta) 100 Mg Tablet, 100 MG PO Q4 PRN for PAIN LEVEL 6-10, TAB 10/31/18 Empagliflozin (Jardiance) 25 Mg Tablet, 25 MG PO DAILY, TAB 10/31/18 Insulin Glargine* (Lantus*) 100 Unit/Ml Soln, 20 UNIT SC QHS, #1 VIAL 10/31/18 Metformin* (Glucophage*) 1,000 Mg Tablet, 1000 MG PO WITH BREAKFAST DINNE, #30 TAB 10/31/18 Metformin Hcl* (Metformin Hcl*) 1,000 Mg Tablet, 1000 MG PO WITH BREAKFAST DINNE, #60 TAB 06/09/18 Amiodarone Hcl* (Amiodarone Hcl*) 200 Mg Tablet, 200 MG PO DAILY, #30 TAB 06/09/18 Medications Current Medications Amiodarone HCl (Cordarone) 200 mg DAILY PO Last administered on 01/10/19at 09:16; Admin Dose 200 MG; Start 01/10/19 at 09:00 Clopidogrel Bisulfate (plaVIX) 75 mg DAILY PO Last administered on 01/10/19at 09:15; Admin Dose 75 MG; Start 01/10/19 at 09:00 Digoxin (Digoxin) 0.125 mg DAILY@1300 PO Last administered on 01/10/19at 12:40; Admin Dose 0.125 MG; Start 01/10/19 at 13:00 Gabapentin (Neurontin) 600 mg DAILY PO Last administered on 01/10/19at 09:12; Admin Dose 600 MG; Start 01/10/19 at 09:00 Empaglifozin (Jardiance) 25 mg DAILY PO Last administered on 01/10/19at 09:14; Admin Dose 25 MG; Start 01/10/19 at 09:00 Linagliptin (Tradjenta) 5 mg DAILY PO Last administered on 01/10/19at 09:14; Admin Dose 5 MG; Start 01/10/19 at 09:00 Diagnostic Test (Pha) (Accu-Chek) 1 ea AC MEALS AND BEDTIME XX ; Start 01/09/19 at 21:00 Acetaminophen (Tylenol Tab) 650 mg Q4H PRN PO MILD PAIN(1-3)OR ELEVATED TEMP; Start 01/09/19 at 20:30 Acetaminophen/ Hydrocodone Bitart ([place] (5/325)) 1 tab Q4H PRN PO MODERATE PAIN LEVEL 4-6 Last administered on 01/10/19at 23:01; Admin Dose 1 TAB; Start 01/09/19 at 20:30 Ondansetron HCl (Zofran Inj) 4 mg Q6H PRN IV NAUSEA AND/OR VOMITING; Start 01/09/19 at 20:30 Diagnostic Test (Pha) (Accu-Chek) 1 ea 02 XX ; Start 01/10/19 at 02:00 Insulin Aspart (Novolog Insulin Pen) NOVOLOG *MILD* ALGORITHM WITH MEALS BEDTIME SC Last administered on 01/10/19at 17:44; Admin Dose 1 UNIT; Start 01/09/19 at 22:30 Miscellaneous Information 1 ea NOTE XX ; Start 01/09/19 at 21:30 Glucose (Glutose) 15 gm Q15M PRN PO DECREASED GLUCOSE; Start 01/09/19 at 21:30 Glucose (Glutose) 22.5 gm Q15M PRN PO DECREASED GLUCOSE; Start 01/09/19 at 21:30 Dextrose (D50w Syringe) 25 ml Q15M PRN IV DECREASED GLUCOSE; Start 01/09/19 at 21:30 Dextrose (D50w Syringe) 50 ml Q15M PRN IV DECREASED GLUCOSE; Start 01/09/19 at 21:30 Glucagon (Glucagen) 1 mg Q15M PRN IM DECREASED GLUCOSE; Start 01/09/19 at 21:30 Glucose (Glutose) 15 gm Q15M PRN BUCCAL DECREASED GLUCOSE; Start 01/09/19 at 21:30 Insulin Glargine (Lantus) 18 units QHS SC Last administered on 01/10/19at 20:46; Admin Dose 18 UNITS; Start 01/09/19 at 22:30 Carvedilol (Coreg) 3.125 mg BID PO ; Start 01/10/19 at 21:00 Morphine Sulfate (morphine) 4 mg Q4H PRN IV SEVERE PAIN LEVEL 7-10; Start 01/11/19 at 00:00 Allergies: Coded Allergies: No Known Allergy (Unverified , 01/09/19) Past Surgical History Past Surgical Hx: coronary bypass surgery Social History Alcohol Use: none Smoking Status: Never smoker Exam/Review of Systems Exam Vitals Vital Signs Date Temp Pulse Resp B/P (MAP) Pulse Ox O2 O2 Flow FiO2 Time Delivery Rate 01/10/19 98.6 70 18 107/55 98 19:29 (72) 01/10/19 Room Air 12:37 Intake and Output 01/09/19 01/09/19 01/10/19 1515:00 23:00 07:00 IntakeIntake Total 120 ml BalanceBalance 120 ml Constitutional: alert, oriented, well developed Psych: no complaints, nl mood/affect Head: normocephalic, atraumatic Eyes: nl conjunctiva, nl lids, nl sclera ENMT: nl external ears & nose, nl nasal mucosa & septum, mucosa pink and moist Neck: supple, non-tender Respiratory: clear to auscultation, normal air movement Cardiovascular: nl pulses, edema Gastrointestinal: soft, nl liver, spleen, non-tender Musculoskeletal: swelling (R knee, without effusion), other (large ulcer of R heel) Extremities: normal pulses 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: BOLT LABELER II-XII intact Skin: rash or lesions (large ulcer of R heel) Results Result Diagram: 01/09/19 1717 01/10/19 0502 Results 24hrs Laboratory Tests Test 01/09/19 23:32 01/10/19 05:02 01/10/19 07:54 01/10/19 12:28 Bedside Glucose 163 109 92 Prothrombin Time 12.4 Prothrombin Time Ratio 1.0 INR International 0.91 Normalized Ratio Activated 26.2 Partial Thromboplast Time Sodium Level 140 Potassium Level 4.3 Chloride Level 105 Carbon Dioxide Level 28 Anion Gap 7 Blood Urea Nitrogen 16 Creatinine 0.56 L Est Glomerular Filtrat > 60 Rate mL/min Glucose Level 114 Hemoglobin A1c 7.6 H Calcium Level 9.2 Triglycerides Level 89 Cholesterol Level 108 LDL Cholesterol, 65 Calculated HDL Cholesterol 25 L Cholesterol/HDL Ratio 4.3 Test 01/10/19 17:41 01/10/19 18:04 01/10/19 20:39 Bedside Glucose 170 145 Troponin I < 0.012 Medications Medication Current Medications Amiodarone HCl (Cordarone) 200 mg DAILY PO Last administered on 01/10/19 09:16; Admin Dose 200 MG; Start 01/10/19 at 09:00 Clopidogrel Bisulfate (plaVIX) 75 mg DAILY PO Last administered on 01/10/19 09:15; Admin Dose 75 MG; Start 01/10/19 at 09:00 Digoxin (Digoxin) 0.125 mg DAILY@1300 PO Last administered on 01/10/19 12:40; Admin Dose 0.125 MG; Start 01/10/19 at 13:00 Gabapentin (Neurontin) 600 mg DAILY PO Last administered on 01/10/19 09:12; Admin Dose 600 MG; Start 01/10/19 at 09:00 Empaglifozin (Jardiance) 25 mg DAILY PO Last administered on 01/10/19 09:14; Admin Dose 25 MG; Start 01/10/19 at 09:00 Linagliptin (Tradjenta) 5 mg DAILY PO Last administered on 01/10/19 09:14; Admin Dose 5 MG; Start 01/10/19 at 09:00 Diagnostic Test (Pha) (Accu-Chek) 1 ea AC MEALS AND BEDTIME XX ; Start 01/09/19 at 21:00 Acetaminophen (Tylenol Tab) 650 mg Q4H PRN PO MILD PAIN(1-3)OR ELEVATED TEMP; Start 01/09/19 at 20:30 Acetaminophen/ Hydrocodone Bitart ([place] (5/325)) 1 tab Q4H PRN PO MODERATE PAIN LEVEL 4-6 Last administered on 01/10/19at 23:01; Admin Dose 1 TAB; Start 01/09/19 at 20:30 Ondansetron HCl (Zofran Inj) 4 mg Q6H PRN IV NAUSEA AND/OR VOMITING; Start 01/09/19 at 20:30 Diagnostic Test (Pha) (Accu-Chek) 1 ea 02 XX ; Start 01/10/19 at 02:00 Insulin Aspart (Novolog Insulin Pen) NOVOLOG *MILD* ALGORITHM WITH MEALS BEDTIME SC Last administered on 01/10/19at 17:44; Admin Dose 1 UNIT; Start 01/09/19 at 22:30 Miscellaneous Information 1 ea NOTE XX ; Start 01/09/19 at 21:30 Glucose (Glutose) 15 gm Q15M PRN PO DECREASED GLUCOSE; Start 01/09/19 at 21:30 Glucose (Glutose) 22.5 gm Q15M PRN PO DECREASED GLUCOSE; Start 01/09/19 at 21:30 Dextrose (D50w Syringe) 25 ml Q15M PRN IV DECREASED GLUCOSE; Start 01/09/19 at 21:30 Dextrose (D50w Syringe) 50 ml Q15M PRN IV DECREASED GLUCOSE; Start 01/09/19 at 21:30 Glucagon (Glucagen) 1 mg Q15M PRN IM DECREASED GLUCOSE; Start 01/09/19 at 21:30 Glucose (Glutose) 15 gm Q15M PRN BUCCAL DECREASED GLUCOSE; Start 01/09/19 at 21:30 Insulin Glargine (Lantus) 18 units QHS SC Last administered on 01/10/19at 20:46; Admin Dose 18 UNITS; Start 01/09/19 at 22:30 Carvedilol (Coreg) 3.125 mg BID PO ; Start 01/10/19 at 21:00 Morphine Sulfate (morphine) 4 mg Q4H PRN IV SEVERE PAIN LEVEL 7-10; Start at 00:00 CARMITA WATTS M.D. January 10, 2019 23:12
[2019-01-11] MEDS: morphine 4 MG/ML VIAL IV PRN ×5 (01:47→22:44)
[2019-01-11] MEDS: ACCU-CHEK XX SCH ×5 (02:00→20:31)
[2019-01-11] MEDS: metroNIDAZOLE 500 MG TAB PO SCH ×3 (02:04→14:13)
[2019-01-11 02:15] VITALS: BP 99/55; PULSE 68; RESP 18
[2019-01-11] MEDS ORDERED: VANCOMYCIN IV PER PHARMACY XX SCH (02:30)
[2019-01-11] MEDS ORDERED: VANCOMYCIN HCL 2 GM in SOD CHLORIDE 0.9% 500 ML IVPB SCH (04:00)
[2019-01-11] MEDS: HYDROCODONE/APAP (5/325) TAB PO PRN ×3 (04:15→20:27)
[2019-01-11 07:27] VITALS: BP 94/59; PULSE 66; RESP 18
[2019-01-11] MEDS: INSULIN ASPART [NOVOLOG] 3 ML PEN SC SCH ×4 (08:00→20:31)
[2019-01-11] MEDS: LINAGLIPTIN 5 MG TABLET PO SCH (08:48)
[2019-01-11] MEDS: CLOPIDOGREL 75 MG TAB PO SCH (08:48)
[2019-01-11] MEDS: EMPAGLIFLOZIN 10 MG TABLET PO SCH (08:49)
[2019-01-11] MEDS: GABAPENTIN 300 MG CAP PO SCH (08:50)
[2019-01-11] MEDS: AMIODARONE 200 MG TAB PO SCH (09:00)
[2019-01-11] MEDS ORDERED: CEFEPIME 2GM/50 ML (PMX) 50 ML IVPB SCH (09:00)
[2019-01-11] MEDS ORDERED: REGADENOSON 0.4 MG/5 ML SYG ONE (10:48)
--- NOTE | 2019-01-11 12:17 | CONS ---
DATE OF ADMISSION: 01/09/2019 DATE OF CONSULTATION: 01/10/2019 CARDIAC CONSULTATION REASON FOR CONSULTATION: Preoperative evaluation and a history of congestive heart failure, cardiomyopathy. REQUESTING PHYSICIAN: Kristin Pryor MD HISTORY OF PRESENT ILLNESS: Mr. Zayas is a 63-year-old male with history of coronary artery disease, status post coronary artery bypass graft surgery, prior AICD placement, followed by Dr. Eduardo, recent discharge 11/2018. Peripheral arterial disease, status post prior right lower extremity PTAs with a nonhealing heel ulcer, who has been admitted to the hospital after being evaluated in the wound care clinic with needs to undergo peripheral bypass. The patient at this time denies chest pain or shortness of breath. Has pain in his foot. PAST MEDICAL HISTORY: As above in HPI. MEDICATIONS: Currently in the hospital: 1. Digoxin 0.125 mg daily. 2. Amiodarone 10 mg daily. 3. Plavix 75 mg daily. 4. Neurontin 300 mg daily. 5. Jardiance. 6. Tradjenta. 7. Tylenol p.r.n. 7. Morley p.r.n. 8. Morphine p.r.n. ALLERGIES: NO KNOWN DRUG ALLERGIES. SOCIAL HISTORY: No current tobacco, ETOH or illicit drug use. FAMILY HISTORY: No history of sudden cardiac or early CAD. REVIEW OF SYSTEMS: As above in HPI. CONSTITUTIONAL: No fevers, chills. PULMONARY: No current signs of respiratory compromise. GASTROINTESTINAL: No vomiting. GENITOURINARY: No hematuria. MUSCULOSKELETAL: Degenerative joint disease. PSYCHIATRIC: No documented psych history. NEUROLOGIC: No documented history of CVA. ENDOCRINE: Diabetes mellitus. PHYSICAL EXAMINATION: VITAL SIGNS: Temperature 98.3, blood pressure most recently 115/57, pulse 70, respiratory rate 20, sat 97%. GENERAL: The patient is alert, awake, no acute distress. NECK: JVP approximately 9 cm of water. CHEST: Decreased breath sounds at bases bilaterally. HEART: Regular rate and rhythm. Normal S1, S2, I/ systolic murmur, nondisplaced PMI. ABDOMEN: Positive bowel sounds, soft. EXTREMITIES: Right lower extremity swelling, covered by dressing, nonhealing ulceration on the heel. Difficult to palpate distal pulses bilaterally, dorsalis pedis and posterior tibial. LABORATORY DATA: Most recently from today, sodium 140, potassium 4.3, creatinine 0.56, BUN 16, LDL 65, HDL 25. White blood cell count 9.9, hemoglobin 13.8, platelet count 257. IMAGING STUDIES: A venous ultrasound revealing no DVT with venous mapping done, and a chest x-ray with no acute cardiopulmonary. ECG dated 01/09/2019 revealed normal sinus rhythm, rate of 66, normal axis and intervals with inferolateral biphasic T abnormalities. IMPRESSION: 1. Preoperative evaluation prior to possible peripheral bypass surgery. 2. Abnormal cardiogram with inferolateral T-wave abnormalities, assess for acute coronary syndrome. 3. History of coronary artery disease, status post coronary bypass graft surgery. 4. History of congestive heart failure, question systolic versus diastolic, likely chronic at this time. 5. Hypertension. 6. Cardiac arrhythmia, on amiodarone. 7. History of ICD with discharge from 11/2018. 8. Diabetes mellitus. RECOMMENDATIONS: 1. At this time, would check serial EKGs to assess for changes and repeat EKG in the morning. EKG for any complaints of chest pain or change in rhythm. 2. Complete the patient's rule out for myocardial infarction to ensure the patient's chronic in nature and not due to any recent acute coronary syndrome. 3. Continue the patient's current Plavix for prevention of cardiovascular events and will continue the patient's amiodarone to prevent recurrent cardiac arrhythmias. 4. Likely initiate patient on low dose beta dejon to assure good heart rate and to treat possible cardiomyopathy and also in the setting of AICD discharge. 5. We will follow the patient's 2D echo and found to have decreased EF, will initiate patient on afterload reduction. 6. Will give patient gentle Lasix diuresis, following strict I's and O's, creatinine closely and will consider a stress test on this patient unless patient is found to have had a stress test done by primary tipple engineer, Dr. Dumont, who I will contact. Thank you for allowing me to take part in the care of this patient. I will continue to follow very closely with you. Further recommendations will be made as the patient progresses through his inpatient hospital clinical course. Dictated By: VERO BRITO/DEXTER Conf#: [id number] DID#: [id number] CC: KRISTIN PRYOR MD;*EndCC* MTDD
--- NOTE | 2019-01-11 12:20 | CONS ---
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 7.DM Recc: -Contineu coreg/digoxin -Contineu amio -Contineu plavix -add low dose afterload reduction -Pre-op lexsican stress test -Continue abx's and f/u cx data Consultation Date/Type/Reason Admit Date/Time January 09, 2019 at 18:17 Initial Consult Date 01/10/19 Type of Consult Cardiology Reason for Consultation preop Requesting Provider: KRISTIN PRYOR MD Date/Time of Note DATE: 01/11/19 TIME: 12:15 Exam/Review of Systems Vital Signs Vitals Vital Signs Date Temp Pulse Resp B/P (MAP) Pulse Ox O2 O2 Flow FiO2 Time Delivery Rate 01/11/19 97.8 66 18 94/59 (71) 100 Room Air 07:27 Intake and Output 01/10/19 01/10/19 01/11/19 1414:59 22:59 06:59 IntakeIntake Total 880 ml 840 ml 610 ml OutputOutput Total 600 ml BalanceBalance 880 ml 840 ml 10 ml Exam Exam Review of Systems: CONSTITUTIONAL: No fevers, chills. PULMONARY: No sob CARDIOVASCULAR: No chest pain/palpitations GASTROINTESTINAL: No nausea/vomiting. GENITOURINARY: No hematuria/dysuria. MUSCULOSKELETAL: No myagias/arthalgias. PSYCHIATRIC: The patient denies depression. NEUROLOGIC: No weakness Constitutional: alert Psych: no complaints Head: normocephalic ENMT: mucosa pink and moist Neck: supple, jvd (9 cm water) Respiratory: diminished breath sounds Cardiovascular: regular rate and rhythm Gastrointestinal: soft, non-tender Musculoskeletal: muscle tone (normal) Extremities: edema (RLE), other (R foot and ankle covered by dressing) Labs Result Diagram: 01/09/19 1717 01/10/19 0502 Results 24hrs Laboratory Tests Test 01/10/19 12:28 01/10/19 17:41 01/10/19 18:04 01/10/19 20:39 Bedside Glucose 92 170 145 Troponin I < 0.012 Test 01/11/19 00:34 01/11/19 05:08 01/11/19 08:01 Troponin I < 0.012 < 0.012 Triglycerides Level 57 Cholesterol Level 102 LDL Cholesterol, 62 Calculated HDL Cholesterol 29 L Cholesterol/HDL Ratio 3.5 Bedside Glucose 122 Medications Medications Current Medications Amiodarone HCl (Cordarone) 200 mg DAILY PO Last administered on 01/10/19 09:16; Admin Dose 200 MG; Start 01/10/19 at 09:00 Clopidogrel Bisulfate (plaVIX) 75 mg DAILY PO Last administered on 01/11/19 08:48; Admin Dose 75 MG; Start 01/10/19 at 09:00 Digoxin (Digoxin) 0.125 mg DAILY@1300 PO Last administered on 01/10/19at 12:40; Admin Dose 0.125 MG; Start 01/10/19 at 13:00 Gabapentin (Neurontin) 600 mg DAILY PO Last administered on 01/10/19 09:12; Admin Dose 600 MG; Start 01/10/19 at 09:00 Empaglifozin (Jardiance) 25 mg DAILY PO Last administered on 01/11/19at 08:49; Admin Dose 25 MG; Start 01/10/19 at 09:00 Linagliptin (Tradjenta) 5 mg DAILY PO Last administered on 01/11/19 08:48; Admin Dose 5 MG; Start 01/10/19 at 09:00 Diagnostic Test (Pha) (Accu-Chek) 1 ea AC MEALS AND BEDTIME XX ; Start 01/09/19 at 21:00 Acetaminophen (Tylenol Tab) 650 mg Q4H PRN PO MILD PAIN(1-3)OR ELEVATED TEMP; Start 01/09/19 at 20:30 Acetaminophen/ Hydrocodone Bitart ([place] (5/325)) 1 tab Q4H PRN PO MODERATE PAIN LEVEL 4-6 Last administered on 01/11/19at 10:24; Admin Dose 1 TAB; Start 01/09/19 at 20:30 Ondansetron HCl (Zofran Inj) 4 mg Q6H PRN IV NAUSEA AND/OR VOMITING; Start 01/09/19 at 20:30 Diagnostic Test (Pha) (Accu-Chek) 1 ea 02 XX ; Start 01/10/19 at 02:00 Insulin Aspart (Novolog Insulin Pen) NOVOLOG *MILD* ALGORITHM WITH MEALS BEDTIME SC Last administered on 01/10/19at 17:44; Admin Dose 1 UNIT; Start 01/09/19 at 22:30 Miscellaneous Information 1 ea NOTE XX ; Start 01/09/19 at 21:30 Glucose (Glutose) 15 gm Q15M PRN PO DECREASED GLUCOSE; Start 01/09/19 at 21:30 Glucose (Glutose) 22.5 gm Q15M PRN PO DECREASED GLUCOSE; Start 01/09/19 at 21:30 Dextrose (D50w Syringe) 25 ml Q15M PRN IV DECREASED GLUCOSE; Start 01/09/19 at 21:30 Dextrose (D50w Syringe) 50 ml Q15M PRN IV DECREASED GLUCOSE; Start 01/09/19 at 21:30 Glucagon (Glucagen) 1 mg Q15M PRN IM DECREASED GLUCOSE; Start 01/09/19 at 21:30 Glucose (Glutose) 15 gm Q15M PRN BUCCAL DECREASED GLUCOSE; Start 01/09/19 at 21:30 Insulin Glargine (Lantus) 18 units QHS SC Last administered on 01/10/19at 20:46; Admin Dose 18 UNITS; Start 01/09/19 at 22:30 Carvedilol (Coreg) 3.125 mg BID PO ; Start 01/10/19 at 21:00 Morphine Sulfate (morphine) 4 mg Q4H PRN IV SEVERE PAIN LEVEL 7-10 Last administered on 01/11/19at 07:57; Admin Dose 4 MG; Start 01/11/19 at 00:00 Vancomycin HCl (Vanco Iv Per Pharmacy) VANCOMYCIN PER PHARMACY PER PROTOCOL XX ; Start 01/11/19 at 02:30 Cefepime HCl 50 ml @ 100 mls/hr Q12 IVPB Last administered on 01/11/19at 08:55; Admin Dose 100 MLS/HR; Start 01/11/19 at 09:00 Metronidazole (Flagyl) 500 mg Q8 PO Last administered on 01/11/19at 08:47; Admin Dose 500 MG; Start 01/11/19 at 01:30 Vancomycin HCl 1.5 gm/Sodium Chloride 250 ml @ 83.333 mls/ hr Q12H IVPB ; Start 01/11/19 at 16:00 Miscellaneous Information (*Rx Drug Level Order Reminder*) VANCO TROUGH 01/12 @ 1,500 1500 ONCE XX ; Start 01/12/19 at 15:00; Stop 01/12/19 at 15:01 VERO ARELLANO January 11, 2019 12:20
--- NOTE | 2019-01-11 13:41 | PN ---
Date/Time of Note Date/Time of Note DATE: 01/11/19 TIME: 13:41 Assessment/Plan VTE Prophylaxis Risk score (from Ns)>0 risk: 5 [place] [facility] [place] contraindicated: other Pharmacological prophylaxis: LMWH Lines/Catheters IV Catheter Type (from [facility]): [place] Assessment/Plan Hospital Course 1. Right heel necrotic wound. 2. Peripheral vascular disease status post MEDICAL SERVICES COORDINATOR, right lower extremity. 3. Coronary artery disease, status post coronary artery bypass graft. 4. Status post AICD. 5. Hypertension. 6. Diabetes. Result Diagram: 01/09/19 1717 01/10/19 0502 Results 24hrs Laboratory Tests Test 01/10/19 17:41 01/10/19 18:04 01/10/19 20:39 01/11/19 00:34 Bedside Glucose 170 145 Troponin I < 0.012 < 0.012 Test 01/11/19 05:08 01/11/19 08:01 01/11/19 13:02 Troponin I < 0.012 Triglycerides Level 57 Cholesterol Level 102 LDL Cholesterol, 62 Calculated HDL Cholesterol 29 L Cholesterol/HDL Ratio 3.5 Bedside Glucose 122 110 Subjective 24 Hr Interval Summary Free Text/Dictation Patient complain of pain and swelling in right leg where the cellulitis is Exam/Review of Systems Exam Vitals Vital Signs Date Temp Pulse Resp B/P (MAP) Pulse Ox O2 O2 Flow FiO2 Time Delivery Rate 01/11/19 97.8 66 18 94/59 (71) 100 Room Air 07:27 Intake and Output 01/10/19 01/10/19 01/11/19 1515:00 23:00 07:00 IntakeIntake Total 880 ml 840 ml 610 ml OutputOutput Total 600 ml BalanceBalance 880 ml 840 ml 10 ml Constitutional: well developed Head: normocephalic, atraumatic Neck: supple Respiratory: clear to auscultation Cardiovascular: regular rate and rhythm Gastrointestinal: soft, non-tender Extremities: normal pulses Results Results 24hrs Laboratory Tests Test 01/10/19 17:41 01/10/19 18:04 01/10/19 20:39 01/11/19 00:34 Bedside Glucose 170 145 Troponin I < 0.012 < 0.012 Test 01/11/19 05:08 01/11/19 08:01 01/11/19 13:02 Troponin I < 0.012 Triglycerides Level 57 Cholesterol Level 102 LDL Cholesterol, 62 Calculated HDL Cholesterol 29 L Cholesterol/HDL Ratio 3.5 Bedside Glucose 122 110 Medications Medication Current Medications Amiodarone HCl (Cordarone) 200 mg DAILY PO Last administered on 01/10/19 09:16; Admin Dose 200 MG; Start 01/10/19 at 09:00 Clopidogrel Bisulfate (plaVIX) 75 mg DAILY PO Last administered on 01/11/19 08:48; Admin Dose 75 MG; Start 01/10/19 at 09:00 Digoxin (Digoxin) 0.125 mg DAILY@1300 PO Last administered on 01/10/19 12:40; Admin Dose 0.125 MG; Start 01/10/19 at 13:00 Gabapentin (Neurontin) 600 mg DAILY PO Last administered on 01/10/19 09:12; Admin Dose 600 MG; Start 01/10/19 at 09:00 Empaglifozin (Jardiance) 25 mg DAILY PO Last administered on 01/11/19 08:49; Admin Dose 25 MG; Start 01/10/19 at 09:00 Linagliptin (Tradjenta) 5 mg DAILY PO Last administered on 01/11/19 08:48; Admin Dose 5 MG; Start 01/10/19 at 09:00 Diagnostic Test (Pha) (Accu-Chek) 1 ea AC MEALS AND BEDTIME XX ; Start 01/09/19 at 21:00 Acetaminophen (Tylenol Tab) 650 mg Q4H PRN PO MILD PAIN(1-3)OR ELEVATED TEMP; Start 01/09/19 at 20:30 Acetaminophen/ Hydrocodone Bitart ([place] (5/325)) 1 tab Q4H PRN PO MODERATE PAIN LEVEL 4-6 Last administered on 01/11/19 10:24; Admin Dose 1 TAB; Start 01/09/19 at 20:30 Ondansetron HCl (Zofran Inj) 4 mg Q6H PRN IV NAUSEA AND/OR VOMITING; Start 01/09/19 at 20:30 Diagnostic Test (Pha) (Accu-Chek) 1 ea 02 XX ; Start 01/10/19 at 02:00 Insulin Aspart (Novolog Insulin Pen) NOVOLOG *MILD* ALGORITHM WITH MEALS BEDTIME SC Last administered on 01/10/19at 17:44; Admin Dose 1 UNIT; Start 01/09/19 at 22:30 Miscellaneous Information 1 ea NOTE XX ; Start 01/09/19 at 21:30 Glucose (Glutose) 15 gm Q15M PRN PO DECREASED GLUCOSE; Start 01/09/19 at 21:30 Glucose (Glutose) 22.5 gm Q15M PRN PO DECREASED GLUCOSE; Start 01/09/19 at 21:30 Dextrose (D50w Syringe) 25 ml Q15M PRN IV DECREASED GLUCOSE; Start 01/09/19 at 21:30 Dextrose (D50w Syringe) 50 ml Q15M PRN IV DECREASED GLUCOSE; Start 01/09/19 at 21:30 Glucagon (Glucagen) 1 mg Q15M PRN IM DECREASED GLUCOSE; Start 01/09/19 at 21:30 Glucose (Glutose) 15 gm Q15M PRN BUCCAL DECREASED GLUCOSE; Start 01/09/19 at 21:30 Insulin Glargine (Lantus) 18 units QHS SC Last administered on 01/10/19at 20:46; Admin Dose 18 UNITS; Start 01/09/19 at 22:30 Carvedilol (Coreg) 3.125 mg BID PO ; Start 01/10/19 at 21:00 Morphine Sulfate (morphine) 4 mg Q4H PRN IV SEVERE PAIN LEVEL 7-10 Last administered on 01/11/19at 07:57; Admin Dose 4 MG; Start 01/11/19 at 00:00 Vancomycin HCl (Vanco Iv Per Pharmacy) VANCOMYCIN PER PHARMACY PER PROTOCOL XX ; Start 01/11/19 at 02:30 Cefepime HCl 50 ml @ 100 mls/hr Q12 IVPB Last administered on 01/11/19at 08:55; Admin Dose 100 MLS/HR; Start 01/11/19 at 09:00 Metronidazole (Flagyl) 500 mg Q8 PO Last administered on 01/11/19at 08:47; Admin Dose 500 MG; Start 01/11/19 at 01:30 Vancomycin HCl 1.5 gm/Sodium Chloride 250 ml @ 83.333 mls/ hr Q12H IVPB ; Start 01/11/19 at 16:00 Miscellaneous Information (*Rx Drug Level Order Reminder*) VANCO TROUGH 01/12 @ 1,500 1500 ONCE XX ; Start 01/12/19 at 15:00; Stop 5/6/19 at 15:01 PARISA VARGAS January 11, 2019 13:41
[2019-01-11 14:00] VITALS: BP 115/73; PULSE 100; RESP 17
[2019-01-11] MEDS: DIGOXIN 0.125 MG TAB PO SCH (14:14)
--- NOTE | 2019-01-11 14:55 | CONS ---
DATE OF ADMISSION: 01/09/2019 DATE OF CONSULTATION: 01/11/2019 LEXISCAN CARDIOLITE STRESS TEST REASON FOR STRESS TESTING: Preoperative evaluation. Severe depressed left ventricular ejection fraction, abnormal electrocardiogram, assess for ischemia. BASELINE VITAL SIGNS AND ELECTROCARDIOGRAM: Pulse 60, blood pressure 124/71. Electrocardiogram reveals sinus rhythm, rate of 64, normal axis, normal intervals with inferior lateral T-wave abnormalities. PROCEDURE: The patient underwent standard Lexiscan infusion . The patient's test was stopped due to completion of protocol. Maximal blood pressure during test 122/73. Maximum heart rate during the test 80. ECG FINDINGS: The patient did not develop any new Lexiscan-induced ST or T-wave changes from baseline abnormalities. No documented PVCs. SYMPTOMS: The patient had no complaints of chest pain or shortness of breath during stress testing. IMPRESSION: 1. No Lexiscan-induced ST or T-wave changes from baseline abnormalities diagnostic of cardiac ischemia. 2. No complaints of chest pain or shortness of breath during stress test. 3. No documented premature ventricular contractions during stress testing. 4. Report of nuclear images to follow in separate dictation. Dictated By: VERO BRITO/DEXTER Conf#: [id number] DID#: [id number] CC: KRISTIN PRYOR MD;*EndCC* MTDD
[2019-01-11] MEDS: VANCOMYCIN HCL 1.5 GM in SOD CHLORIDE 0.9% 250 ML IVPB SCH (16:20)
--- NOTE | 2019-01-11 18:50 | CONS ---
Assessment/Plan Assessment/Plan Hospital Course (Demo Recall) - infections of non-healing ulcer of R heel due to Gram negative bacteria. CT on 01/10/2019 did not show evidence of OM. ESR 26 on 01/09/2019 - chronic wound of R heel, in the past the wound culture grew E. coli - h/o OM of R foot, h/o 6 weeks of IV vancomycin and ceftriaxone in 2018. Pt remembers it was a "Staph infection." - trauma to R knee - CAD - PVD - h/o aortogram, RLE runoff and percutaneous angioplasty of the posterior tibial artery and the anterior tibial artery in 10/2018 - h/o CABG - h/o AICD placement - DM recommendations - pending: blood culture x2, wound culture, aerobic and anaerobic bacteria - continue IV vancomycin (01/11/2019-) - will d/c cefepime and metronidazole; start IV meropenem in case of ESBL+bacteria - will also add clindamycin (01/11/2019-); Pt exhibits signs and Sx of progressive inflammation, and I recommend adding clindamycin until streptococcal infections are ruled out - If Pt undergoes debridement, will collect more samples for testing management d/w Pt and his RN Yee Consultation Date/Type/Reason Admit Date/Time January 09, 2019 at 18:17 Initial Consult Date 01/10/19 Type of Consult ID Requesting Provider: KRISTIN PRYOR MD Date/Time of Note DATE: 01/11/19 TIME: 18:41 24 HR Interval Summary Constitutional: no complaints Detailed Summary Eyes: no complaints ENT: no complaints Respiratory: no complaints Cardiovascular: no complaints Gastrointestinal: no complaints Genitourinary: no complaints Musculoskeletal: bone/joint pain (pain of R foot) Skin: other (the color of the metatarsal and heel has darkened) Neurologic: other (at baseline, has diminished sensation of b/l toes) Exam/Review of Systems Exam Vitals Vital Signs Date Temp Pulse Resp B/P (MAP) Pulse Ox O2 O2 Flow FiO2 Time Delivery Rate 01/11/19 98.3 100 17 115/73 98 14:00 (87) 01/11/19 Room Air 07:27 Intake and Output 01/10/19 01/10/19 01/11/19 1515:00 23:00 07:00 IntakeIntake Total 880 ml 840 ml 610 ml OutputOutput Total 600 ml BalanceBalance 880 ml 840 ml 10 ml Constitutional: alert, oriented, well developed Psych: no complaints, nl mood/affect Head: normocephalic, atraumatic Eyes: nl conjunctiva, nl lids, nl sclera ENMT: nl external ears & nose, nl nasal mucosa & septum Neck: supple, other (not swollen) Respiratory: normal air movement Cardiovascular: edema (R pedal edema) Gastrointestinal: No distended Musculoskeletal: swelling (R foot) Extremities: edema (R foot and R ankle) 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: other (+sensation of toes and feet is intact) Skin: other (darker color of R toes and heel) Results Result Diagram: 01/09/19 1717 01/10/19 0502 Results 24hrs Laboratory Tests Test 01/10/19 20:39 01/11/19 00:34 01/11/19 05:08 01/11/19 08:01 Bedside Glucose 145 122 Troponin I < 0.012 < 0.012 Triglycerides Level 57 Cholesterol Level 102 LDL Cholesterol, 62 Calculated HDL Cholesterol 29 L Cholesterol/HDL Ratio 3.5 Test 01/11/19 13:02 01/11/19 17:56 Bedside Glucose 110 154 Medications Medication Current Medications Amiodarone HCl (Cordarone) 200 mg DAILY PO Last administered on 01/10/19 09:16; Admin Dose 200 MG; Start 01/10/19 at 09:00 Clopidogrel Bisulfate (plaVIX) 75 mg DAILY PO Last administered on 01/11/19 08:48; Admin Dose 75 MG; Start 01/10/19 at 09:00 Digoxin (Digoxin) 0.125 mg DAILY@1300 PO Last administered on 01/11/19 14:14; Admin Dose 0.125 MG; Start 01/10/19 at 13:00 Gabapentin (Neurontin) 600 mg DAILY PO Last administered on 01/10/19 09:12; Admin Dose 600 MG; Start 01/10/19 at 09:00 Empaglifozin (Jardiance) 25 mg DAILY PO Last administered on 01/11/19 08:49; Admin Dose 25 MG; Start 01/10/19 at 09:00 Linagliptin (Tradjenta) 5 mg DAILY PO Last administered on 01/11/19 08:48; Admin Dose 5 MG; Start 01/10/19 at 09:00 Diagnostic Test (Pha) (Accu-Chek) 1 ea AC MEALS AND BEDTIME XX ; Start 01/09/19 at 21:00 Acetaminophen (Tylenol Tab) 650 mg Q4H PRN PO MILD PAIN(1-3)OR ELEVATED TEMP; Start 01/09/19 at 20:30 Acetaminophen/ Hydrocodone Bitart ([place] (5/325)) 1 tab Q4H PRN PO MODERATE PAIN LEVEL 4-6 Last administered on 01/11/19at 10:24; Admin Dose 1 TAB; Start 01/09/19 at 20:30 Ondansetron HCl (Zofran Inj) 4 mg Q6H PRN IV NAUSEA AND/OR VOMITING; Start 01/09/19 at 20:30 Diagnostic Test (Pha) (Accu-Chek) 1 ea 02 XX ; Start 01/10/19 at 02:00 Insulin Aspart (Novolog Insulin Pen) NOVOLOG *MILD* ALGORITHM WITH MEALS BEDTIME SC Last administered on 01/11/19at 17:57; Admin Dose 1 UNIT; Start 01/09/19 at 22:30 Miscellaneous Information 1 ea NOTE XX ; Start 01/09/19 at 21:30 Glucose (Glutose) 15 gm Q15M PRN PO DECREASED GLUCOSE; Start 01/09/19 at 21:30 Glucose (Glutose) 22.5 gm Q15M PRN PO DECREASED GLUCOSE; Start 01/09/19 at 21:30 Dextrose (D50w Syringe) 25 ml Q15M PRN IV DECREASED GLUCOSE; Start 01/09/19 at 21:30 Dextrose (D50w Syringe) 50 ml Q15M PRN IV DECREASED GLUCOSE; Start 01/09/19 at 21:30 Glucagon (Glucagen) 1 mg Q15M PRN IM DECREASED GLUCOSE; Start 01/09/19 at 21:30 Glucose (Glutose) 15 gm Q15M PRN BUCCAL DECREASED GLUCOSE; Start 01/09/19 at 21:30 Insulin Glargine (Lantus) 18 units QHS SC Last administered on 01/10/19at 20:46; Admin Dose 18 UNITS; Start 01/09/19 at 22:30 Carvedilol (Coreg) 3.125 mg BID PO ; Start 01/10/19 at 21:00 Morphine Sulfate (morphine) 4 mg Q4H PRN IV SEVERE PAIN LEVEL 7-10 Last administered on 01/11/19at 18:16; Admin Dose 4 MG; Start 01/11/19 at 00:00 Vancomycin HCl (Vanco Iv Per Pharmacy) VANCOMYCIN PER PHARMACY PER PROTOCOL XX ; Start 01/11/19 at 02:30 Cefepime HCl 50 ml @ 100 mls/hr Q12 IVPB Last administered on 01/11/19at 08:55; Admin Dose 100 MLS/HR; Start 01/11/19 at 09:00 Metronidazole (Flagyl) 500 mg Q8 PO Last administered on 01/11/19at 14:13; Admin Dose 500 MG; Start 01/11/19 at 01:30 Vancomycin HCl 1.5 gm/Sodium Chloride 250 ml @ 83.333 mls/ hr Q12H IVPB Last administered on 01/11/19at 16:20; Admin Dose 83.333 MLS/HR; Start 01/11/19 at 16:00 Miscellaneous Information (*Rx Drug Level Order Reminder*) VANCO TROUGH 01/12 @ 1,500 1500 ONCE XX ; Start 01/12/19 at 15:00; Stop 01/12/19 at 15:01 CARMITA WATTS M.D. January 11, 2019 18:50
[2019-01-11 19:42] VITALS: BP 113/76; PULSE 76; RESP 18
[2019-01-11] MEDS: INSULIN GLARGINE [LANTus] (100 UNITS/ML) SYG SC SCH (20:33)
[2019-01-11] MEDS: MEROPENEM 1 GM/50ML(PMX) 50 ML IVPB SCH (20:35)
[2019-01-11] MEDS: CLINDAMYCIN 900 MG/D5W (PMX) 50 ML IVPB SCH (22:47)
[2019-01-12] MEDS: HYDROCODONE/APAP (5/325) TAB PO PRN ×4 (00:37→22:13)
[2019-01-12 02:00] VITALS: BP 98/69; PULSE 70; RESP 18
[2019-01-12] MEDS: ACCU-CHEK XX SCH ×5 (02:00→21:00)
[2019-01-12] MEDS: morphine 4 MG/ML VIAL IV PRN ×6 (02:54→23:52)
[2019-01-12] MEDS: VANCOMYCIN HCL 1.5 GM in SOD CHLORIDE 0.9% 250 ML IVPB SCH ×2 (04:09→16:32)
[2019-01-12] MEDS: MEROPENEM 1 GM/50ML(PMX) 50 ML IVPB SCH ×3 (05:47→21:28)
[2019-01-12] MEDS: CLINDAMYCIN 900 MG/D5W (PMX) 50 ML IVPB SCH ×3 (06:15→23:46)
[2019-01-12 07:30] VITALS: BP 99/62; PULSE 63; RESP 20
[2019-01-12] MEDS: INSULIN ASPART [NOVOLOG] 3 ML PEN SC SCH ×4 (08:00→21:00)
--- NOTE | 2019-01-12 09:26 | PN ---
Date/Time of Note Date/Time of Note DATE: 01/12/19 TIME: 09:22 Assessment/Plan Lines/Catheters IV Catheter Type (from [facility]): Peripheral IV Assessment/Plan Assessment/Plan R heel chronic ulcer - infected w/ GNR, chronic PAD s/p angioplasty x 2 Dr. Mata to see from podiatry Continue antibiotics per ID I will schedule him for R pop-DP bypass at the next available time - in process, likely next week, he can go home in the interim with wound care and antibiotics if necessary Subjective 24 Hr Interval Summary No new c/o. R foot is feeling better today. Stress test was negative for ischemia. Vein mapping shows reasonable R GSV for bypass. Exam/Review of Systems Vital Signs Vitals Vital Signs Date Temp Pulse Resp B/P (MAP) Pulse Ox O2 O2 Flow FiO2 Time Delivery Rate 01/12/19 97.7 63 20 99/62 (74) 100 07:30 01/11/19 Room Air 07:27 Intake and Output 01/11/19 01/11/19 01/12/19 1515:00 23:00 07:00 IntakeIntake Total 780 ml 800 ml 290 ml OutputOutput Total 500 ml 600 ml 700 ml BalanceBalance 280 ml 200 ml -410 ml Exam Free Text/Dictation R foot dressed, no drainage Results Result Diagram: 01/12/19 0456 01/12/19 0455 VERO MAHONEY MD January 12, 2019 09:26
[2019-01-12] MEDS: CLOPIDOGREL 75 MG TAB PO SCH (09:33)
[2019-01-12] MEDS: GABAPENTIN 300 MG CAP PO SCH (09:34)
[2019-01-12] MEDS: LINAGLIPTIN 5 MG TABLET PO SCH (09:34)
[2019-01-12] MEDS: AMIODARONE 200 MG TAB PO SCH (09:35)
[2019-01-12] MEDS: EMPAGLIFLOZIN 10 MG TABLET PO SCH (11:17)
[2019-01-12] MEDS: DIGOXIN 0.125 MG TAB PO SCH (12:32)
--- NOTE | 2019-01-12 12:55 | CONS ---
Assessment/Plan Assessment/Plan Hospital Course (Demo Recall) - infections of non-healing ulcer of R heel due to Gram negative bacteria. CT on 01/10/2019 did not show evidence of OM. ESR 26 on 01/09/2019 - chronic wound of R heel, in the past the wound culture grew E. coli - h/o OM of R foot, h/o 6 weeks of IV vancomycin and ceftriaxone in 2018. Pt remembers it was a "Staph infection." - trauma to R knee - CAD - PVD - h/o aortogram, RLE runoff and percutaneous angioplasty of the posterior tibial artery and the anterior tibial artery in 10/2018 - h/o CABG - h/o AICD placement - DM Recommendations: - pending: blood culture x2 (NGTD), wound culture (prelim GNR, GNRx2, enterococcus), aerobic and anaerobic bacteria - continue IV vancomycin (01/11/2019-) - Continue IV meropenem in case of ESBL+bacteria; s/p cefepime and metronidazole; - Continue clindamycin (01/11/2019-); Pt exhibits signs and Sx of progressive inflammation, and we recommend adding clindamycin until streptococcal infections are ruled out - Patient going for debridement tomorrow - ordered deep wound culture to be done at time of procedure. management d/w patient, KAY Estevez, and with Dr. Urbano. Thank you Consultation Date/Type/Reason Admit Date/Time January 09, 2019 at 18:17 Initial Consult Date 01/10/19 Type of Consult ID Requesting Provider: KRISTIN PRYOR MD Date/Time of Note DATE: 01/12/19 TIME: 12:51 24 HR Interval Summary Free Text/Dictation Patient states he spoke to his tier over a short time ago and that podiatry plans a debridement and will try to schedule him. He remains afebrile, wbc 8.4. No acute issues were reported by nursing. Pt reports pain 10/10 in his right foot stating that pain medication does not help. Also reports pain R knee s/p a fall prior to hospitalization for which he applies ice packs intermittently. Detailed Summary Eyes: no complaints ENT: no complaints; No sore throat Respiratory: no complaints; No cough, No shortness of breath, No sputum, No wheezing Cardiovascular: edema (right foot); No chest pain Gastrointestinal: no complaints; No diarrhea, No nausea, No vomiting Genitourinary: no complaints Musculoskeletal: bone/joint pain Skin: other (states Left foot wound still draining green drainage but that amt has improved.) Neurologic: no complaints Psychological: no complaints, nl mood/affect Exam/Review of Systems Exam Vitals Vital Signs Date Temp Pulse Resp B/P (MAP) Pulse Ox O2 O2 Flow FiO2 Time Delivery Rate 01/12/19 97.7 63 20 99/62 (74) 100 07:30 01/11/19 Room Air 07:27 Intake and Output 01/11/19 01/11/19 01/12/19 1515:00 23:00 07:00 IntakeIntake Total 780 ml 800 ml 290 ml OutputOutput Total 500 ml 600 ml 700 ml BalanceBalance 280 ml 200 ml -410 ml Allergies Coded Allergies No Known Allergy (Unverified01/09/19) Constitutional: alert, oriented, well developed, other (sitting up at side of bed ) Psych: no complaints, nl mood/affect Head: normocephalic, atraumatic Eyes: nl conjunctiva, nl lids, nl sclera ENMT: nl external ears & nose, nl nasal mucosa & septum, mucosa pink and moist (no thrushj) Neck: supple, non-tender Respiratory: clear to auscultation, normal air movement; No labored breathing, No wheezing Cardiovascular: regular rate and rhythm, nl pulses, edema (right foot swelling) Gastrointestinal: soft, non-tender, bowel sounds (normoactive); No distended, No firm, No tender Genitourinary - Male: other (urinal at bedside.) Extremities: normal pulses, other (right foot wrapped with c/d/i kerlix dressing) 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, nl mental status, nl speech, nl strength Skin: nl turgor; No rash or lesions Results Result Diagram: 01/12/19 0456 01/12/19 0455 Results 24hrs Laboratory Tests Test 01/11/19 13:02 01/11/19 17:56 01/11/19 20:29 01/12/19 02:57 Bedside Glucose 110 154 144 113 Test 01/12/19 04:55 01/12/19 04:56 01/12/19 08:14 Erythrocyte 37 H Sedimentation Rate Sodium Level 140 Potassium Level 4.2 Chloride Level 104 Carbon Dioxide Level 27 Anion Gap 9 Blood Urea Nitrogen 19 Creatinine 0.59 L Est Glomerular Filtrat > 60 Rate mL/min Glucose Level 123 Calcium Level 9.4 White Blood Count 8.4 Red Blood Count 4.79 Hemoglobin 14.0 Hematocrit 43.0 Mean Corpuscular Volume 89.8 Mean Corpuscular 29.2 Hemoglobin Mean Corpuscular 32.6 Hemoglobin Concent Red Cell Distribution 14.3 Width Platelet Count 257 Mean Platelet Volume 10.9 H Immature Granulocytes % 0.500 H Neutrophils % 62.1 Lymphocytes % 24.9 Monocytes % 8.6 Eosinophils % 3.5 Basophils % 0.4 Nucleated Red Blood 0.0 Cells % Immature Granulocytes # 0.040 H Neutrophils # 5.2 Lymphocytes # 2.1 Monocytes # 0.7 Eosinophils # 0.3 Basophils # 0.0 Nucleated Red Blood 0.0 Cells # Bedside Glucose 121 Imaging Imaging Lexiscan 01/11/19 IMPRESSION: 1. The type and distribution of the scintigraphic abnormalities are most consistent with a small to moderate-sized nonreversible perfusion defect in the apical, distal anterior, distal anteroseptal and distal inferior roman. 2. Moderate hypokinesis of the left ventricle. 3. The left ventricle ejection fraction at stress is 28%. Medications Medication Current Medications Amiodarone HCl (Cordarone) 200 mg DAILY PO Last administered on 01/12/19 09:35; Admin Dose 200 MG; Start 01/10/19 at 09:00 Clopidogrel Bisulfate (plaVIX) 75 mg DAILY PO Last administered on 01/12/19 09:33; Admin Dose 75 MG; Start 01/10/19 at 09:00 Digoxin (Digoxin) 0.125 mg DAILY@1300 PO Last administered on 01/12/19 12:32; Admin Dose 0.125 MG; Start 01/10/19 at 13:00 Gabapentin (Neurontin) 600 mg DAILY PO Last administered on 01/12/19 09:34; Admin Dose 600 MG; Start 01/10/19 at 09:00 Empaglifozin (Jardiance) 25 mg DAILY PO Last administered on 01/12/19 11:17; Admin Dose 25 MG; Start 01/10/19 at 09:00 Linagliptin (Tradjenta) 5 mg DAILY PO Last administered on 01/12/19 09:34; Admin Dose 5 MG; Start 01/10/19 at 09:00 Diagnostic Test (Pha) (Accu-Chek) 1 ea AC MEALS AND BEDTIME XX ; Start 01/09/19 at 21:00 Acetaminophen (Tylenol Tab) 650 mg Q4H PRN PO MILD PAIN(1-3)OR ELEVATED TEMP; Start 01/09/19 at 20:30 Acetaminophen/ Hydrocodone Bitart ([place]jo (5/325)) 1 tab Q4H PRN PO MODERATE PAIN LEVEL 4-6 Last administered on 01/12/19 05:42; Admin Dose 1 TAB; Start 01/09/19 at 20:30 Ondansetron HCl (Zofran Inj) 4 mg Q6H PRN IV NAUSEA AND/OR VOMITING; Start 01/09/19 at 20:30 Diagnostic Test (Pha) (Accu-Chek) 1 ea 02 XX ; Start 01/10/19 at 02:00 Insulin Aspart (Novolog Insulin Pen) NOVOLOG *MILD* ALGORITHM WITH MEALS BEDTIME SC Last administered on 01/11/19at 17:57; Admin Dose 1 UNIT; Start 01/09/19 at 22:30 Miscellaneous Information 1 ea NOTE XX ; Start 01/09/19 at 21:30 Glucose (Glutose) 15 gm Q15M PRN PO DECREASED GLUCOSE; Start 01/09/19 at 21:30 Glucose (Glutose) 22.5 gm Q15M PRN PO DECREASED GLUCOSE; Start 01/09/19 at 21:30 Dextrose (D50w Syringe) 25 ml Q15M PRN IV DECREASED GLUCOSE; Start 01/09/19 at 21:30 Dextrose (D50w Syringe) 50 ml Q15M PRN IV DECREASED GLUCOSE; Start 01/09/19 at 21:30 Glucagon (Glucagen) 1 mg Q15M PRN IM DECREASED GLUCOSE; Start 01/09/19 at 21:30 Glucose (Glutose) 15 gm Q15M PRN BUCCAL DECREASED GLUCOSE; Start 01/09/19 at 21:30 Insulin Glargine (Lantus) 18 units QHS SC Last administered on 01/11/19 20:33; Admin Dose 18 UNITS; Start 01/09/19 at 22:30 Carvedilol (Coreg) 3.125 mg BID PO Last administered on 01/11/19at 20:27; Admin Dose 3.125 MG; Start 01/10/19 at 21:00 Morphine Sulfate (morphine) 4 mg Q4H PRN IV SEVERE PAIN LEVEL 7-10 Last administered on 01/12/19at 11:10; Admin Dose 4 MG; Start 01/11/19 at 00:00 Vancomycin HCl (Vanco Iv Per Pharmacy) VANCOMYCIN PER PHARMACY PER PROTOCOL XX ; Start 01/11/19 at 02:30 Vancomycin HCl 1.5 gm/Sodium Chloride 250 ml @ 83.333 mls/ hr Q12H IVPB Last administered on 01/12/19at 04:09; Admin Dose 83.333 MLS/HR; Start 01/11/19 at 16:00 Miscellaneous Information (*Rx Drug Level Order Reminder*) VANCO TROUGH 01/12 @ 1,500 1500 ONCE XX ; Start 01/12/19 at 15:00; Stop 01/12/19 at 15:01 Meropenem/Sodium Chloride 50 ml @ 100 mls/hr Q8 IVPB Last administered on 01/12/19at 05:47; Admin Dose 100 MLS/HR; Start 01/11/19 at 19:30 Clindamycin HCl/ Dextrose 50 ml @ 50 mls/hr Q8 IVPB Last administered on 01/12/19at 06:15; Admin Dose 50 MLS/HR; Start 01/11/19 at 22:00 FELICITY SORTO NP January 12, 2019 12:55
--- NOTE | 2019-01-12 13:45 | CONS ---
Assessment/Plan Assessment/Plan Hospital Course (Demo Recall) IMP: 1.Pre-op for peripheral bypass surgery. Lexiscan with no ischemia/+scar EF 28%. Echo EF 25%. 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 7.DM Recc: -Contineu coreg/digoxin -Contineu amio -Contineu plavix -add low dose afterload reduction as tolerated -Continue abx's and f/u cx data -local wound care Consultation Date/Type/Reason Admit Date/Time January 09, 2019 at 18:17 Initial Consult Date 01/10/19 Type of Consult Cardiology Reason for Consultation preop Requesting Provider: KRISTIN PRYOR MD Date/Time of Note DATE: 01/12/19 TIME: 13:42 Exam/Review of Systems Vital Signs Vitals Vital Signs Date Temp Pulse Resp B/P (MAP) Pulse Ox O2 O2 Flow FiO2 Time Delivery Rate 01/12/19 97.7 63 20 99/62 (74) 100 07:30 01/11/19 Room Air 07:27 Intake and Output 01/11/19 01/11/19 01/12/19 1515:00 23:00 07:00 IntakeIntake Total 780 ml 800 ml 290 ml OutputOutput Total 500 ml 600 ml 700 ml BalanceBalance 280 ml 200 ml -410 ml Exam Exam Review of Systems: CONSTITUTIONAL: No fevers, chills. PULMONARY: No sob CARDIOVASCULAR: No chest pain/palpitations GASTROINTESTINAL: No nausea/vomiting. GENITOURINARY: No hematuria/dysuria. MUSCULOSKELETAL: No myagias/arthalgias. PSYCHIATRIC: The patient denies depression. NEUROLOGIC: No weakness Constitutional: alert, oriented Psych: no complaints Head: normocephalic ENMT: mucosa pink and moist Neck: supple, jvd Respiratory: diminished breath sounds (at bases/B) Cardiovascular: regular rate and rhythm Gastrointestinal: soft, non-tender Musculoskeletal: muscle tone (normal) Extremities: edema (none) 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: other (No focal deficits) Labs Result Diagram: 01/12/19 0456 01/12/19 0455 Results 24hrs Laboratory Tests Test 01/11/19 17:56 01/11/19 20:29 01/12/19 02:57 01/12/19 04:55 Bedside Glucose 154 144 113 Erythrocyte 37 H Sedimentation Rate Sodium Level 140 Potassium Level 4.2 Chloride Level 104 Carbon Dioxide Level 27 Anion Gap 9 Blood Urea Nitrogen 19 Creatinine 0.59 L Est Glomerular Filtrat > 60 Rate mL/min Glucose Level 123 Calcium Level 9.4 Test 01/12/19 04:56 01/12/19 08:14 01/12/19 12:49 White Blood Count 8.4 Red Blood Count 4.79 Hemoglobin 14.0 Hematocrit 43.0 Mean Corpuscular Volume 89.8 Mean Corpuscular 29.2 Hemoglobin Mean Corpuscular 32.6 Hemoglobin Concent Red Cell Distribution 14.3 Width Platelet Count 257 Mean Platelet Volume 10.9 H Immature Granulocytes % 0.500 H Neutrophils % 62.1 Lymphocytes % 24.9 Monocytes % 8.6 Eosinophils % 3.5 Basophils % 0.4 Nucleated Red Blood 0.0 Cells % Immature Granulocytes # 0.040 H Neutrophils # 5.2 Lymphocytes # 2.1 Monocytes # 0.7 Eosinophils # 0.3 Basophils # 0.0 Nucleated Red Blood 0.0 Cells # Bedside Glucose 121 108 Medications Medications Current Medications Amiodarone HCl (Cordarone) 200 mg DAILY PO Last administered on 01/12/19 09:35; Admin Dose 200 MG; Start 01/10/19 at 09:00 Clopidogrel Bisulfate (plaVIX) 75 mg DAILY PO Last administered on 01/12/19 09:33; Admin Dose 75 MG; Start 01/10/19 at 09:00 Digoxin (Digoxin) 0.125 mg DAILY@1300 PO Last administered on 01/12/19 12:32; Admin Dose 0.125 MG; Start 01/10/19 at 13:00 Gabapentin (Neurontin) 600 mg DAILY PO Last administered on 01/12/19 09:34; Admin Dose 600 MG; Start 01/10/19 at 09:00 Empaglifozin (Jardiance) 25 mg DAILY PO Last administered on 01/12/19 11:17; Admin Dose 25 MG; Start 01/10/19 at 09:00 Linagliptin (Tradjenta) 5 mg DAILY PO Last administered on 01/12/19 09:34; Admin Dose 5 MG; Start 01/10/19 at 09:00 Diagnostic Test (Pha) (Accu-Chek) 1 ea AC MEALS AND BEDTIME XX ; Start 01/09/19 at 21:00 Acetaminophen (Tylenol Tab) 650 mg Q4H PRN PO MILD PAIN(1-3)OR ELEVATED TEMP; Start 01/09/19 at 20:30 Acetaminophen/ Hydrocodone Bitart (Mcdonald (5/325)) 1 tab Q4H PRN PO MODERATE PAIN LEVEL 4-6 Last administered on 01/12/19at 13:10; Admin Dose 1 TAB; Start 01/09/19 at 20:30 Ondansetron HCl (Zofran Inj) 4 mg Q6H PRN IV NAUSEA AND/OR VOMITING; Start 01/09/19 at 20:30 Diagnostic Test (Pha) (Accu-Chek) 1 ea 02 XX ; Start 01/10/19 at 02:00 Insulin Aspart (Novolog Insulin Pen) NOVOLOG *MILD* ALGORITHM WITH MEALS BEDTIME SC Last administered on 01/11/19at 17:57; Admin Dose 1 UNIT; Start 01/09/19 at 22:30 Miscellaneous Information 1 ea NOTE XX ; Start 01/09/19 at 21:30 Glucose (Glutose) 15 gm Q15M PRN PO DECREASED GLUCOSE; Start 01/09/19 at 21:30 Glucose (Glutose) 22.5 gm Q15M PRN PO DECREASED GLUCOSE; Start 01/09/19 at 21:30 Dextrose (D50w Syringe) 25 ml Q15M PRN IV DECREASED GLUCOSE; Start 01/09/19 at 21:30 Dextrose (D50w Syringe) 50 ml Q15M PRN IV DECREASED GLUCOSE; Start 01/09/19 at 21:30 Glucagon (Glucagen) 1 mg Q15M PRN IM DECREASED GLUCOSE; Start 01/09/19 at 21:30 Glucose (Glutose) 15 gm Q15M PRN BUCCAL DECREASED GLUCOSE; Start 01/09/19 at 21:30 Insulin Glargine (Lantus) 18 units QHS SC Last administered on 01/11/19at 20:33; Admin Dose 18 UNITS; Start 01/09/19 at 22:30 Carvedilol (Coreg) 3.125 mg BID PO Last administered on 01/11/19at 20:27; Admin Dose 3.125 MG; Start 01/10/19 at 21:00 Morphine Sulfate (morphine) 4 mg Q4H PRN IV SEVERE PAIN LEVEL 7-10 Last admini stered on 01/12/19at 11:10; Admin Dose 4 MG; Start 01/11/19 at 00:00 Vancomycin HCl (Vanco Iv Per Pharmacy) VANCOMYCIN PER PHARMACY PER PROTOCOL XX ; Start 01/11/19 at 02:30 Vancomycin HCl 1.5 gm/Sodium Chloride 250 ml @ 83.333 mls/ hr Q12H IVPB Last administered on 01/12/19at 04:09; Admin Dose 83.333 MLS/HR; Start 01/11/19 at 16:00 Miscellaneous Information (*Rx Drug Level Order Reminder*) VANCO TROUGH 01/12 @ 1,500 1500 ONCE XX ; Start 01/12/19 at 15:00; Stop 01/12/19 at 15:01 Meropenem/Sodium Chloride 50 ml @ 100 mls/hr Q8 IVPB Last administered on 01/12/19at 13:10; Admin Dose 100 MLS/HR; Start 01/11/19 at 19:30 Clindamycin HCl/ Dextrose 50 ml @ 50 mls/hr Q8 IVPB Last administered on 01/12/19at 06:15; Admin Dose 50 MLS/HR; Start 01/11/19 at 22:00 VERO ARELLANO January 12, 2019 13:45
[2019-01-12 14:06] VITALS: BP 117/74; PULSE 74; RESP 20
--- NOTE | 2019-01-12 16:16 | CONS ---
Consultation Date/Type/Reason Admit Date/Time January 09, 2019 at 18:17 Date/Time of Note DATE: 01/12/19 TIME: 16:11 Hx of Present Illness DM right calcaneal ulceration. Plan: Debridement in the OR with application of allograft. 930am tomorrow. Past Medical History Medical History: congestive heart failure, coronary artery disease, diabetes, high cholesterol, hypertension Home Meds Reported Medications Amiodarone Hcl* (Amiodarone Hcl*) 200 Mg Tablet, 200 MG PO DAILY, #30 TAB 01/09/19 Digoxin* (Digitek*) 125 Mcg Tablet, 0.125 MG PO DAILY, TAB 01/09/19 Rivaroxaban* (Xarelto*) 20 Mg Tablet, 20 MG PO WITH DINNER, TAB 01/09/19 Clopidogrel Bisulfate* (Clopidogrel Bisulfate*) 75 Mg Tablet, 75 MG PO DAILY, #30 TAB 01/09/19 Empagliflozin (Jardiance) 25 Mg Tablet, 25 MG PO DAILY, TAB 01/09/19 Insulin Glargine,Hum.rec.anlog (Basaglar Kwikpen U-100) 100 Unit/1 Ml Insuln.pe n, 18 UNIT SC QHS, EA 01/09/19 Sulfamethoxazole/Trimethoprim* (Bactrim Ds* Tablet) 1 Each Tablet, 1 TAB PO BID, TAB FOR 10 DAYS,START TAKING 01/06/19 01/09/19 Tapentadol Hcl (Nucynta) 100 Mg Tablet, 100 MG PO BID, TAB 01/09/19 Gabapentin* (Gabapentin*) 600 Mg Tablet, 600 MG PO DAILY, #60 TAB 01/09/19 Metformin Hcl* (Metformin Hcl*) 1,000 Mg Tablet, 1000 MG PO WITH BREAKFAST DINNE, #60 TAB 01/09/19 Discontinued Reported Medications Amiodarone Hcl* (Amiodarone Hcl*) 200 Mg Tablet, 200 MG PO DAILY, #30 TAB 10/31/18 Digoxin* (Digox*) 125 Mcg Tablet, 125 MCG ORAL am 10/31/18 Gabapentin* (Gabapentin*) 600 Mg Tablet, 600 MG PO hs, #60 TAB 10/31/18 Naproxen* (Naproxen*) 500 Mg Tablet, 500 MG PO DAILY, TAB 10/31/18 Rivaroxaban* (Xarelto*) 20 Mg Tablet, 20 MG PO WITH DINNER, TAB 10/31/18 Clopidogrel Bisulfate (Clopidogrel) 75 Mg Tablet, 75 MG PO DAILY, #30 TAB 10/31/18 Tapentadol Hcl (Nucynta) 100 Mg Tablet, 100 MG PO Q4 PRN for PAIN LEVEL 6-10, TAB 10/31/18 Empagliflozin (Jardiance) 25 Mg Tablet, 25 MG PO DAILY, TAB 10/31/18 Insulin Glargine* (Lantus*) 100 Unit/Ml Soln, 20 UNIT SC QHS, #1 VIAL 10/31/18 Metformin* (Glucophage*) 1,000 Mg Tablet, 1000 MG PO WITH BREAKFAST DINNE, #30 TAB 10/31/18 Metformin Hcl* (Metformin Hcl*) 1,000 Mg Tablet, 1000 MG PO WITH BREAKFAST DINNE, #60 TAB 06/09/18 Amiodarone Hcl* (Amiodarone Hcl*) 200 Mg Tablet, 200 MG PO DAILY, #30 TAB 06/09/18 Medications Current Medications Amiodarone HCl (Cordarone) 200 mg DAILY PO Last administered on 01/12/19 09:35; Admin Dose 200 MG; Start 01/10/19 at 09:00 Clopidogrel Bisulfate (plaVIX) 75 mg DAILY PO Last administered on 01/12/19 09:33; Admin Dose 75 MG; Start 01/10/19 at 09:00 Digoxin (Digoxin) 0.125 mg DAILY@1300 PO Last administered on 01/12/19at 12:32; Admin Dose 0.125 MG; Start 01/10/19 at 13:00 Gabapentin (Neurontin) 600 mg DAILY PO Last administered on 01/12/19 09:34; Admin Dose 600 MG; Start 01/10/19 at 09:00 Empaglifozin (Jardiance) 25 mg DAILY PO Last administered on 01/12/19at 11:17; Admin Dose 25 MG; Start 01/10/19 at 09:00 Linagliptin (Tradjenta) 5 mg DAILY PO Last administered on 01/12/19 09:34; Admin Dose 5 MG; Start 01/10/19 at 09:00 Diagnostic Test (Pha) (Accu-Chek) 1 ea AC MEALS AND BEDTIME XX ; Start 01/09/19 at 21:00 Acetaminophen (Tylenol Tab) 650 mg Q4H PRN PO MILD PAIN(1-3)OR ELEVATED TEMP; Start 01/09/19 at 20:30 Acetaminophen/ Hydrocodone Bitart ([place] (5/325)) 1 tab Q4H PRN PO MODERATE PAIN LEVEL 4-6 Last administered on 01/12/19at 13:10; Admin Dose 1 TAB; Start 01/09/19 at 20:30 Ondansetron HCl (Zofran Inj) 4 mg Q6H PRN IV NAUSEA AND/OR VOMITING; Start 01/09/19 at 20:30 Diagnostic Test (Pha) (Accu-Chek) 1 ea 02 XX ; Start 01/10/19 at 02:00 Insulin Aspart (Novolog Insulin Pen) NOVOLOG *MILD* ALGORITHM WITH MEALS BEDTIME SC Last administered on 01/11/19at 17:57; Admin Dose 1 UNIT; Start 01/09/19 at 22:30 Miscellaneous Information 1 ea NOTE XX ; Start 01/09/19 at 21:30 Glucose (Glutose) 15 gm Q15M PRN PO DECREASED GLUCOSE; Start 01/09/19 at 21:30 Glucose (Glutose) 22.5 gm Q15M PRN PO DECREASED GLUCOSE; Start 01/09/19 at 21:30 Dextrose (D50w Syringe) 25 ml Q15M PRN IV DECREASED GLUCOSE; Start 01/09/19 at 21:30 Dextrose (D50w Syringe) 50 ml Q15M PRN IV DECREASED GLUCOSE; Start 01/09/19 at 21:30 Glucagon (Glucagen) 1 mg Q15M PRN IM DECREASED GLUCOSE; Start 01/09/19 at 21:30 Glucose (Glutose) 15 gm Q15M PRN BUCCAL DECREASED GLUCOSE; Start 01/09/19 at 21:30 Insulin Glargine (Lantus) 18 units QHS SC Last administered on 01/11/19at 20:33; Admin Dose 18 UNITS; Start 01/09/19 at 22:30 Carvedilol (Coreg) 3.125 mg BID PO Last administered on 01/11/19at 20:27; Admin Dose 3.125 MG; Start 01/10/19 at 21:00 Morphine Sulfate (morphine) 4 mg Q4H PRN IV SEVERE PAIN LEVEL 7-10 Last administered on 01/12/19at 15:40; Admin Dose 4 MG; Start 01/11/19 at 00:00 Vancomycin HCl (Vanco Iv Per Pharmacy) VANCOMYCIN PER PHARMACY PER PROTOCOL XX ; Start 01/11/19 at 02:30 Vancomycin HCl 1.5 gm/Sodium Chloride 250 ml @ 83.333 mls/ hr Q12H IVPB Last administered on 01/12/19at 04:09; Admin Dose 83.333 MLS/HR; Start 01/11/19 at 16:00 Meropenem/Sodium Chloride 50 ml @ 100 mls/hr Q8 IVPB Last administered on 01/12/19at 13:10; Admin Dose 100 MLS/HR; Start 01/11/19 at 19:30 Clindamycin HCl/ Dextrose 50 ml @ 50 mls/hr Q8 IVPB Last administered on 01/12/19at 14:04; Admin Dose 50 MLS/HR; Start 01/11/19 at 22:00 Lisinopril (Zestril) 2.5 mg DAILY PO ; Start 01/13/19 at 09:00 Allergies: Coded Allergies: No Known Allergy (Unverified , 01/09/19) Past Surgical History Past Surgical Hx: coronary bypass surgery Social History Alcohol Use: none Smoking Status: Never smoker Exam/Review of Systems Exam Vitals Vital Signs Date Temp Pulse Resp B/P (MAP) Pulse Ox O2 O2 Flow FiO2 Time Delivery Rate 01/12/19 97.1 74 20 117/74 98 14:06 (88) 01/11/19 Room Air 07:27 Intake and Output 01/11/19 01/11/19 01/12/19 1414:59 22:59 06:59 IntakeIntake Total 780 ml 800 ml 290 ml OutputOutput Total 500 ml 600 ml 700 ml BalanceBalance 280 ml 200 ml -410 ml Results Result Diagram: 01/12/19 0456 01/12/19 0455 Results 24hrs Laboratory Tests Test 01/11/19 17:56 01/11/19 20:29 01/12/19 02:57 01/12/19 04:55 Bedside Glucose 154 144 113 Erythrocyte 37 H Sedimentation Rate Sodium Level 140 Potassium Level 4.2 Chloride Level 104 Carbon Dioxide Level 27 Anion Gap 9 Blood Urea Nitrogen 19 Creatinine 0.59 L Est Glomerular Filtrat > 60 Rate mL/min Glucose Level 123 Calcium Level 9.4 Test 01/12/19 04:56 01/12/19 08:14 01/12/19 12:49 01/12/19 14:54 White Blood Count 8.4 Red Blood Count 4.79 Hemoglobin 14.0 Hematocrit 43.0 Mean Corpuscular Volume 89.8 Mean Corpuscular 29.2 Hemoglobin Mean Corpuscular 32.6 Hemoglobin Concent Red Cell Distribution 14.3 Width Platelet Count 257 Mean Platelet Volume 10.9 H Immature Granulocytes % 0.500 H Neutrophils % 62.1 Lymphocytes % 24.9 Monocytes % 8.6 Eosinophils % 3.5 Basophils % 0.4 Nucleated Red Blood 0.0 Cells % Immature Granulocytes # 0.040 H Neutrophils # 5.2 Lymphocytes # 2.1 Monocytes # 0.7 Eosinophils # 0.3 Basophils # 0.0 Nucleated Red Blood 0.0 Cells # Bedside Glucose 121 108 Vancomycin Level Trough 13.7 Medications Medication Current Medications Amiodarone HCl (Cordarone) 200 mg DAILY PO Last administered on 01/12/19 09:35; Admin Dose 200 MG; Start 01/10/19 at 09:00 Clopidogrel Bisulfate (plaVIX) 75 mg DAILY PO Last administered on 01/12/19 09:33; Admin Dose 75 MG; Start 01/10/19 at 09:00 Digoxin (Digoxin) 0.125 mg DAILY@1300 PO Last administered on 01/12/19 12:32; Admin Dose 0.125 MG; Start 01/10/19 at 13:00 Gabapentin (Neurontin) 600 mg DAILY PO Last administered on 01/12/19 09:34; Admin Dose 600 MG; Start 01/10/19 at 09:00 Empaglifozin (Jardiance) 25 mg DAILY PO Last administered on 01/12/19 11:17; Admin Dose 25 MG; Start 01/10/19 at 09:00 Linagliptin (Tradjenta) 5 mg DAILY PO Last administered on 01/12/19 09:34; Admin Dose 5 MG; Start 01/10/19 at 09:00 Diagnostic Test (Pha) (Accu-Chek) 1 ea AC MEALS AND BEDTIME XX ; Start 01/09/19 at 21:00 Acetaminophen (Tylenol Tab) 650 mg Q4H PRN PO MILD PAIN(1-3)OR ELEVATED TEMP; Start 01/09/19 at 20:30 Acetaminophen/ Hydrocodone Bitart ([place] (5/325)) 1 tab Q4H PRN PO MODERATE PAIN LEVEL 4-6 Last administered on 01/12/19at 13:10; Admin Dose 1 TAB; Start 01/09/19 at 20:30 Ondansetron HCl (Zofran Inj) 4 mg Q6H PRN IV NAUSEA AND/OR VOMITING; Start 01/09/19 at 20:30 Diagnostic Test (Pha) (Accu-Chek) 1 ea 02 XX ; Start 01/10/19 at 02:00 Insulin Aspart (Novolog Insulin Pen) NOVOLOG *MILD* ALGORITHM WITH MEALS BEDTIME SC Last administered on 01/11/19at 17:57; Admin Dose 1 UNIT; Start 01/09/19 at 22:30 Miscellaneous Information 1 ea NOTE XX ; Start 01/09/19 at 21:30 Glucose (Glutose) 15 gm Q15M PRN PO DECREASED GLUCOSE; Start 01/09/19 at 21:30 Glucose (Glutose) 22.5 gm Q15M PRN PO DECREASED GLUCOSE; Start 01/09/19 at 21:30 Dextrose (D50w Syringe) 25 ml Q15M PRN IV DECREASED GLUCOSE; Start 01/09/19 at 21:30 Dextrose (D50w Syringe) 50 ml Q15M PRN IV DECREASED GLUCOSE; Start 01/09/19 at 21:30 Glucagon (Glucagen) 1 mg Q15M PRN IM DECREASED GLUCOSE; Start 01/09/19 at 21:30 Glucose (Glutose) 15 gm Q15M PRN BUCCAL DECREASED GLUCOSE; Start 01/09/19 at 21:30 Insulin Glargine (Lantus) 18 units QHS SC Last administered on 01/11/19at 20:33; Admin Dose 18 UNITS; Start 01/09/19 at 22:30 Carvedilol (Coreg) 3.125 mg BID PO Last administered on 01/11/19at 20:27; Admin Dose 3.125 MG; Start 01/10/19 at 21:00 Morphine Sulfate (morphine) 4 mg Q4H PRN IV SEVERE PAIN LEVEL 7-10 Last administered on 01/12/19at 15:40; Admin Dose 4 MG; Start 01/11/19 at 00:00 Vancomycin HCl (Vanco Iv Per Pharmacy) VANCOMYCIN PER PHARMACY PER PROTOCOL XX ; Start 01/11/19 at 02:30 Vancomycin HCl 1.5 gm/Sodium Chloride 250 ml @ 83.333 mls/ hr Q12H IVPB Last administered on 01/12/19at 04:09; Admin Dose 83.333 MLS/HR; Start 01/11/19 at 16:00 Meropenem/Sodium Chloride 50 ml @ 100 mls/hr Q8 IVPB Last administered on 01/12/19at 13:10; Admin Dose 100 MLS/HR; Start 01/11/19 at 19:30 Clindamycin HCl/ Dextrose 50 ml @ 50 mls/hr Q8 IVPB Last administered on 01/12/19at 14:04; Admin Dose 50 MLS/HR; Start 01/11/19 at 22:00 Lisinopril (Zestril) 2.5 mg DAILY PO ; Start 01/13/19 at 09:00 KIM ODELL DPM January 12, 2019 16:16
--- NOTE | 2019-01-12 17:12 | PN ---
DATE: 01/12/2019 HISTORY OF PRESENT ILLNESS: This is a patient that I have seen in the past with an ulceration on the plantar aspect of his right heel. He was admitted to the hospital through the ER on Saturday by Dr. Vero Mahoney for an infected diabetic wound. We are seeing him today and he relates that he is feeling much better, but he still has pain in his heel and he is currently getting antibiotics and bed rest. PAST MEDICAL HISTORY: Right heel infected diabetic wound, diabetes with neuropathy. PHYSICAL EXAMINATION: DERMATOLOGIC: There is a circular approximately 3 cm x 3 cm x 2 cm ulceration on the plantar aspect of the right calcaneal region. There is localized hyperkeratotic tissue maceration and local cellulitis. However, there is no drainage and no odor noted. VASCULAR: A 0/4 for posterior tibial pulses of the right, 2/4 for the left posterior tibial. DP is +2/4 bilaterally. NEUROLOGIC: Neuropathy to the mid foot region, confirmed with 5.07 monofilament. MUSCULOSKELETAL: No abnormalities noted. IMPRESSION: Right heel infected diabetic ulceration. PLAN: We are going to institute dressing changes on a daily basis of Betadine wet to dry. We are going to take him to the OR tomorrow at 9:30 a.m. for debridement of the ulceration and application of allograft. We will keep him n.p.o. after midnight and we will follow him during his course here in the hospital afterwards. Dictated By: KIM ODELL MD RS/NTS Conf#: [id number] DID#: [id number] CC: KRISTIN PRYOR MD; VERO MAHONEY MD;*EndCC* MTDD
--- NOTE | 2019-01-12 17:31 | PN ---
Date/Time of Note Date/Time of Note DATE: 01/12/19 TIME: 17:31 Assessment/Plan VTE Prophylaxis Risk score (from Ns)>0 risk: 4 SCD applied (from [facility] [place] No SCD contraindicated: other Pharmacological prophylaxis: LMWH Lines/Catheters IV Catheter Type (from [facility] [place] Assessment/Plan Hospital Course Patient stated that her foot pain is better controlled, denies any nausea and vomiting, plan for wound debridement tomorrow. Assessment/Plan -Right heel necrotic wound. Dr. Mata is following in podiatry consultation. Continue antibiotics per ID. Dr. Landa is following in infection disease consultation. -Chronic peripheral vascular disease, history of angioplasty x2. Dr. Sheppard is following in vascular surgery consultation with recommendation for a right pop DP bypass next week. -Coronary artery disease, status post coronary artery bypass graft. Continue Plavix. -Cardiomyopathy with ejection fraction of 25%. Continue Coreg. Dr. Foster is following in cardiology consultation. -Status post AICD. -Hypertension. -Diabetes hemoglobin A1c 7.6. Further recommendations based on clinical course. Plan of care discussed with Dr. Mann. Result Diagram: 01/12/19 0456 01/12/19 0455 Results 24hrs Laboratory Tests Test 01/11/19 17:56 01/11/19 20:29 01/12/19 02:57 01/12/19 04:55 Bedside Glucose 154 144 113 Erythrocyte 37 H Sedimentation Rate Sodium Level 140 Potassium Level 4.2 Chloride Level 104 Carbon Dioxide Level 27 Anion Gap 9 Blood Urea Nitrogen 19 Creatinine 0.59 L Est Glomerular Filtrat > 60 Rate mL/min Glucose Level 123 Calcium Level 9.4 Test 01/12/19 04:56 01/12/19 08:14 01/12/19 12:49 01/12/19 14:54 White Blood Count 8.4 Red Blood Count 4.79 Hemoglobin 14.0 Hematocrit 43.0 Mean Corpuscular Volume 89.8 Mean Corpuscular 29.2 Hemoglobin Mean Corpuscular 32.6 Hemoglobin Concent Red Cell Distribution 14.3 Width Platelet Count 257 Mean Platelet Volume 10.9 H Immature Granulocytes % 0.500 H Neutrophils % 62.1 Lymphocytes % 24.9 Monocytes % 8.6 Eosinophils % 3.5 Basophils % 0.4 Nucleated Red Blood 0.0 Cells % Immature Granulocytes # 0.040 H Neutrophils # 5.2 Lymphocytes # 2.1 Monocytes # 0.7 Eosinophils # 0.3 Basophils # 0.0 Nucleated Red Blood 0.0 Cells # Bedside Glucose 121 108 Vancomycin Level Trough 13.7 Exam/Review of Systems Exam Vitals Vital Signs Date Temp Pulse Resp B/P (MAP) Pulse Ox O2 O2 Flow FiO2 Time Delivery Rate 01/12/19 97.1 74 20 117/74 98 14:06 (88) 01/11/19 Room Air 07:27 Intake and Output 01/11/19 01/11/19 01/12/19 1515:00 23:00 07:00 IntakeIntake Total 780 ml 800 ml 290 ml OutputOutput Total 500 ml 600 ml 700 ml BalanceBalance 280 ml 200 ml -410 ml Constitutional: alert, oriented Neck: supple Respiratory: clear to auscultation Cardiovascular: nl pulses Gastrointestinal: soft, non-tender Extremities: normal pulses, other (Right heel wound) Results Results 24hrs Laboratory Tests Test 01/11/19 17:56 01/11/19 20:29 01/12/19 02:57 01/12/19 04:55 Bedside Glucose 154 144 113 Erythrocyte 37 H Sedimentation Rate Sodium Level 140 Potassium Level 4.2 Chloride Level 104 Carbon Dioxide Level 27 Anion Gap 9 Blood Urea Nitrogen 19 Creatinine 0.59 L Est Glomerular Filtrat > 60 Rate mL/min Glucose Level 123 Calcium Level 9.4 Test 01/12/19 04:56 01/12/19 08:14 01/12/19 12:49 01/12/19 14:54 White Blood Count 8.4 Red Blood Count 4.79 Hemoglobin 14.0 Hematocrit 43.0 Mean Corpuscular Volume 89.8 Mean Corpuscular 29.2 Hemoglobin Mean Corpuscular 32.6 Hemoglobin Concent Red Cell Distribution 14.3 Width Platelet Count 257 Mean Platelet Volume 10.9 H Immature Granulocytes % 0.500 H Neutrophils % 62.1 Lymphocytes % 24.9 Monocytes % 8.6 Eosinophils % 3.5 Basophils % 0.4 Nucleated Red Blood 0.0 Cells % Immature Granulocytes # 0.040 H Neutrophils # 5.2 Lymphocytes # 2.1 Monocytes # 0.7 Eosinophils # 0.3 Basophils # 0.0 Nucleated Red Blood 0.0 Cells # Bedside Glucose 121 108 Vancomycin Level Trough 13.7 Medications Medication Current Medications Amiodarone HCl (Cordarone) 200 mg DAILY PO Last administered on 01/12/19 09:35; Admin Dose 200 MG; Start 01/10/19 at 09:00 Clopidogrel Bisulfate (plaVIX) 75 mg DAILY PO Last administered on 01/12/19 09:33; Admin Dose 75 MG; Start 01/10/19 at 09:00 Digoxin (Digoxin) 0.125 mg DAILY@1300 PO Last administered on 01/12/19 12:32; Admin Dose 0.125 MG; Start 01/10/19 at 13:00 Gabapentin (Neurontin) 600 mg DAILY PO Last administered on 01/12/19 09:34; Admin Dose 600 MG; Start 01/10/19 at 09:00 Empaglifozin (Jardiance) 25 mg DAILY PO Last administered on 01/12/19 11:17; Admin Dose 25 MG; Start 01/10/19 at 09:00 Linagliptin (Tradjenta) 5 mg DAILY PO Last administered on 01/12/19 09:34; Admin Dose 5 MG; Start 01/10/19 at 09:00 Diagnostic Test (Pha) (Accu-Chek) 1 ea AC MEALS AND BEDTIME XX ; Start 01/09/19 at 21:00 Acetaminophen (Tylenol Tab) 650 mg Q4H PRN PO MILD PAIN(1-3)OR ELEVATED TEMP; Start 01/09/19 at 20:30 Acetaminophen/ Hydrocodone Bitart ([place] (5/325)) 1 tab Q4H PRN PO MODERATE PAIN LEVEL 4-6 Last administered on 01/12/19 13:10; Admin Dose 1 TAB; Start 01/09/19 at 20:30 Ondansetron HCl (Zofran Inj) 4 mg Q6H PRN IV NAUSEA AND/OR VOMITING; Start 01/09/19 at 20:30 Diagnostic Test (Pha) (Accu-Chek) 1 ea 02 XX ; Start 01/10/19 at 02:00 Insulin Aspart (Novolog Insulin Pen) NOVOLOG *MILD* ALGORITHM WITH MEALS BEDTIME SC Last administered on 01/11/19 17:57; Admin Dose 1 UNIT; Start 01/09/19 at 22:30 Miscellaneous Information 1 ea NOTE XX ; Start 01/09/19 at 21:30 Glucose (Glutose) 15 gm Q15M PRN PO DECREASED GLUCOSE; Start 01/09/19 at 21:30 Glucose (Glutose) 22.5 gm Q15M PRN PO DECREASED GLUCOSE; Start 01/09/19 at 21:30 Dextrose (D50w Syringe) 25 ml Q15M PRN IV DECREASED GLUCOSE; Start 01/09/19 at 21:30 Dextrose (D50w Syringe) 50 ml Q15M PRN IV DECREASED GLUCOSE; Start 01/09/19 at 21:30 Glucagon (Glucagen) 1 mg Q15M PRN IM DECREASED GLUCOSE; Start 01/09/19 at 21:30 Glucose (Glutose) 15 gm Q15M PRN BUCCAL DECREASED GLUCOSE; Start 01/09/19 at 21:30 Insulin Glargine (Lantus) 18 units QHS SC Last administered on 01/11/19at 20:33; Admin Dose 18 UNITS; Start 01/09/19 at 22:30 Carvedilol (Coreg) 3.125 mg BID PO Last administered on 01/11/19 20:27; Admin Dose 3.125 MG; Start 01/10/19 at 21:00 Morphine Sulfate (morphine) 4 mg Q4H PRN IV SEVERE PAIN LEVEL 7-10 Last administered on 01/12/19 15:40; Admin Dose 4 MG; Start 01/11/19 at 00:00 Vancomycin HCl (Vanco Iv Per Pharmacy) VANCOMYCIN PER PHARMACY PER PROTOCOL XX ; Start 01/11/19 at 02:30 Vancomycin HCl 1.5 gm/Sodium Chloride 250 ml @ 83.333 mls/ hr Q12H IVPB Last administered on 01/12/19at 16:32; Admin Dose 83.333 MLS/HR; Start 01/11/19 at 16:00 Meropenem/Sodium Chloride 50 ml @ 100 mls/hr Q8 IVPB Last administered on 01/12/19at 13:10; Admin Dose 100 MLS/HR; Start 01/11/19 at 19:30 Lisinopril (Zestril) 2.5 mg DAILY PO ; Start 01/13/19 at 09:00 Clindamycin HCl/ Dextrose 50 ml @ 50 mls/hr Q8 IVPB ; Start 01/12/19 at 22:00 RAMESH SOLORZANO January 12, 2019 17:31
[2019-01-12] MEDS: NEOMYC/POLYMYX/BACIT 30 GM OINT TOP SCH (18:30)
[2019-01-12 20:00] VITALS: BP 114/72; PULSE 68; RESP 18
[2019-01-12] MEDS: INSULIN GLARGINE [LANTus] (100 UNITS/ML) SYG SC SCH (21:33)
[2019-01-13] VITALS (15 sets, daily range): BP systolic 86–140; BP diastolic 55–97; PULSE 62–76; RESP 12–22
[2019-01-13] MEDS: ACCU-CHEK XX SCH ×5 (02:00→20:40)
[2019-01-13] MEDS: HYDROCODONE/APAP (5/325) TAB PO PRN ×4 (02:18→20:36)
[2019-01-13] MEDS: VANCOMYCIN HCL 1.5 GM in SOD CHLORIDE 0.9% 250 ML IVPB SCH ×2 (03:22→16:06)
[2019-01-13] MEDS: morphine 4 MG/ML VIAL IV PRN ×5 (04:04→22:09)
[2019-01-13] MEDS: MEROPENEM 1 GM/50ML(PMX) 50 ML IVPB SCH ×3 (06:32→22:08)
[2019-01-13] MEDS: CLINDAMYCIN 900 MG/D5W (PMX) 50 ML IVPB SCH ×3 (07:09→22:47)
--- NOTE | 2019-01-13 07:53 | PREAC ---
Date/Time of Note Date/Time of Note DATE: 01/13/19 TIME: 07:52 Anesthesia Eval and Record Evaluation Time Pre-Procedure Interview DATE: 01/13/19 TIME: 07:52 Age 63 Sex male NPO: 8 hrs Preoperative diagnosis Right heel necrotic wound Planned procedure DEBRIDEMENT RIGHT HEEL Past Medical History Past Medical History: Includes Cardio: HTN, CAD, CABG, PPM/AICD, CHF, Other ( Peripheral vascular disease) Endo: Diabetes GI: Morbid obesity Surgery & Anesthesia Issues No known issue Meds Anticoagulation: No Beta Tasha within 24 hr: Yes Reason Beta Tasha not given: Pt. not on B-Tasha Reported Medications Amiodarone Hcl* (Amiodarone Hcl*) 200 Mg Tablet, 200 MG PO DAILY, #30 TAB 01/09/19 Digoxin* (Digitek*) 125 Mcg Tablet, 0.125 MG PO DAILY, TAB 01/09/19 Rivaroxaban* (Xarelto*) 20 Mg Tablet, 20 MG PO WITH DINNER, TAB 01/09/19 Clopidogrel Bisulfate* (Clopidogrel Bisulfate*) 75 Mg Tablet, 75 MG PO DAILY, #30 TAB 01/09/19 Empagliflozin (Jardiance) 25 Mg Tablet, 25 MG PO DAILY, TAB 01/09/19 Insulin Glargine,Hum.rec.anlog (Basaglar Kwikpen U-100) 100 Unit/1 Ml Insuln.pen, 18 UNIT SC QHS, EA 01/09/19 Sulfamethoxazole/Trimethoprim* (Bactrim Ds* Tablet) 1 Each Tablet, 1 TAB PO BID, TAB FOR 10 DAYS,START TAKING 01/06/19 01/09/19 Tapentadol Hcl (Nucynta) 100 Mg Tablet, 100 MG PO BID, TAB 01/09/19 Gabapentin* (Gabapentin*) 600 Mg Tablet, 600 MG PO DAILY, #60 TAB 01/09/19 Metformin Hcl* (Metformin Hcl*) 1,000 Mg Tablet, 1000 MG PO WITH BREAKFAST DINNE, #60 TAB 01/09/19 Discontinued Reported Medications Amiodarone Hcl* (Amiodarone Hcl*) 200 Mg Tablet, 200 MG PO DAILY, #30 TAB 10/31/18 Digoxin* (Digox*) 125 Mcg Tablet, 125 MCG ORAL am 10/31/18 Gabapentin* (Gabapentin*) 600 Mg Tablet, 600 MG PO hs, #60 TAB 10/31/18 Naproxen* (Naproxen*) 500 Mg Tablet, 500 MG PO DAILY, TAB 10/31/18 Rivaroxaban* (Xarelto*) 20 Mg Tablet, 20 MG PO WITH DINNER, TAB 10/31/18 Clopidogrel Bisulfate (Clopidogrel) 75 Mg Tablet, 75 MG PO DAILY, #30 TAB 10/31/18 Tapentadol Hcl (Nucynta) 100 Mg Tablet, 100 MG PO Q4 PRN for PAIN LEVEL 6-10, TAB 10/31/18 Empagliflozin (Jardiance) 25 Mg Tablet, 25 MG PO DAILY, TAB 10/31/18 Insulin Glargine* (Lantus*) 100 Unit/Ml Soln, 20 UNIT SC QHS, #1 VIAL 10/31/18 Metformin* (Glucophage*) 1,000 Mg Tablet, 1000 MG PO WITH BREAKFAST DINNE, #30 TAB 10/31/18 Metformin Hcl* (Metformin Hcl*) 1,000 Mg Tablet, 1000 MG PO WITH BREAKFAST DINNE, #60 TAB 06/09/18 Amiodarone Hcl* (Amiodarone Hcl*) 200 Mg Tablet, 200 MG PO DAILY, #30 TAB 06/09/18 Current Medications Amiodarone HCl (Cordarone) 200 mg DAILY PO Last administered on 01/12/19 09:35; Admin Dose 200 MG; Start 01/10/19 at 09:00 Clopidogrel Bisulfate (plaVIX) 75 mg DAILY PO Last administered on 01/12/19 09:33; Admin Dose 75 MG; Start 01/10/19 at 09:00 Digoxin (Digoxin) 0.125 mg DAILY@1300 PO Last administered on 01/12/19at 12:32; Admin Dose 0.125 MG; Start 01/10/19 at 13:00 Gabapentin (Neurontin) 600 mg DAILY PO Last administered on 01/12/19 09:34; Admin Dose 600 MG; Start 01/10/19 at 09:00 Empaglifozin (Jardiance) 25 mg DAILY PO Last administered on 01/12/19at 11:17; Admin Dose 25 MG; Start 01/10/19 at 09:00 Linagliptin (Tradjenta) 5 mg DAILY PO Last administered on 01/12/19 09:34; Admin Dose 5 MG; Start 01/10/19 at 09:00 Diagnostic Test (Pha) (Accu-Chek) 1 ea AC MEALS AND BEDTIME XX ; Start 01/09/19 at 21:00 Acetaminophen (Tylenol Tab) 650 mg Q4H PRN PO MILD PAIN(1-3)OR ELEVATED TEMP; Start 01/09/19 at 20:30 Acetaminophen/ Hydrocodone Bitart ([place] (5/325)) 1 tab Q4H PRN PO MODERATE PAIN LEVEL 4-6 Last administered on 01/13/19 02:18; Admin Dose 1 TAB; Start 01/09/19 at 20:30 Ondansetron HCl (Zofran Inj) 4 mg Q6H PRN IV NAUSEA AND/OR VOMITING; Start 01/09/19 at 20:30 Diagnostic Test (Pha) (Accu-Chek) 1 ea 02 XX ; Start 01/10/19 at 02:00 Insulin Aspart (Novolog Insulin Pen) NOVOLOG *MILD* ALGORITHM WITH MEALS BEDTIME SC Last administered on 01/12/19at 17:53; Admin Dose 1 UNIT; Start 01/09/19 at 22:30 Miscellaneous Information 1 ea NOTE XX ; Start 01/09/19 at 21:30 Glucose (Glutose) 15 gm Q15M PRN PO DECREASED GLUCOSE; Start 01/09/19 at 21:30 Glucose (Glutose) 22.5 gm Q15M PRN PO DECREASED GLUCOSE; Start 01/09/19 at 21:30 Dextrose (D50w Syringe) 25 ml Q15M PRN IV DECREASED GLUCOSE; Start 01/09/19 at 21:30 Dextrose (D50w Syringe) 50 ml Q15M PRN IV DECREASED GLUCOSE; Start 01/09/19 at 21:30 Glucagon (Glucagen) 1 mg Q15M PRN IM DECREASED GLUCOSE; Start 01/09/19 at 21:30 Glucose (Glutose) 15 gm Q15M PRN BUCCAL DECREASED GLUCOSE; Start 01/09/19 at 21:30 Insulin Glargine (Lantus) 18 units QHS SC Last administered on 01/12/19at 21:33; Admin Dose 18 UNITS; Start 01/09/19 at 22:30 Carvedilol (Coreg) 3.125 mg BID PO Last administered on 01/12/19at 21:30; Admin Dose 3.125 MG; Start 01/10/19 at 21:00 Morphine Sulfate (morphine) 4 mg Q4H PRN IV SEVERE PAIN LEVEL 7-10 Last administered on 01/13/19at 04:04; Admin Dose 4 MG; Start 01/11/19 at 00:00 Vancomycin HCl (Vanco Iv Per Pharmacy) VANCOMYCIN PER PHARMACY PER PROTOCOL XX ; Start 01/11/19 at 02:30 Vancomycin HCl 1.5 gm/Sodium Chloride 250 ml @ 83.333 mls/ hr Q12H IVPB Last administered on 01/13/19at 03:22; Admin Dose 83.333 MLS/HR; Start 01/11/19 at 16:00 Meropenem/Sodium Chloride 50 ml @ 100 mls/hr Q8 IVPB Last administered on 01/13/19at 06:32; Admin Dose 100 MLS/HR; Start 01/11/19 at 19:30 Lisinopril (Zestril) 2.5 mg DAILY PO ; Start 01/13/19 at 09:00 Clindamycin HCl/ Dextrose 50 ml @ 50 mls/hr Q8 IVPB Last administered on 01/13/19at 07:09; Admin Dose 50 MLS/HR; Start 01/12/19 at 22:00 Senna (Senokot) 1 tab DAILY PRN PO CONSTIPATION; Start 01/12/19 at 18:30 Docusate Sodium (Colace) 100 mg BID PRN PO CONSTIPATION; Start 01/12/19 at 18:30 Neomycin/ Polymyxin/ Bacitracin (Neosporin Topical Oint) 1 applic DAILY TOP ; Start 01/12/19 at 18:30 Acetaminophen (Tylenol Tab) 1,000 mg ONCE ONCE PO ; Start 01/13/19 at 08:00; Stop 01/13/19 at 08:01 Meds reviewed: Yes Allergies Coded Allergies: No Known Allergy (Unverified , 01/09/19) Allergies Reviewed: Yes Labs/Studies Labs Reviewed: Reviewed by anesthesiologist Result Diagram: 01/12/19 0456 01/12/19 0455 test: N/A Studies: ECG, CXR (The lungs are clear of acute infiltrates, edema, effusions, or masses. Sternotomy wires and CABG clips are present. Left-sided dual chamber AICD is in place.. The cardiomediastinal silhouette is unremarkable. The osseous structures are intact. ), 2D Echo (EF 25%) Pre-procedure Exam Last vitals Vital Signs Date Temp Pulse Resp B/P (MAP) Pulse Ox O2 O2 Flow FiO2 Time Delivery Rate 01/13/19 98.0 69 20 108/62 99 07:45 (77) 01/11/19 Room Air 07:27 Airway: Adequate mouth opening Mallampati: Mallampati II Teeth: Abnormal Lung: Normal Heart: Normal ASA Physical Status ASA physical status: 3 Emergency: None Planned Anesthetic General/MAC: MAC Pre-operative Attestations Prior to commencing anesthesia and surgery, the patient was re-evaluated, there was verification of: *The patient's identity *The results of appropriate recent lab work and preoperative vital signs *The above evaluation not changing prior to induction *Anesthetic plan, risk benefits, alternative and complications discussed with patient/family; questions answered; patient/family understands, accepts and wishes to proceed. MATHEW FORREST January 13, 2019 07:53
[2019-01-13] MEDS: INSULIN ASPART [NOVOLOG] 3 ML PEN SC SCH ×4 (08:00→20:39)
[2019-01-13] MEDS ORDERED: ACETAMINOPHEN 500 MG TAB PO ONE (08:00)
[2019-01-13] MEDS ORDERED: LIDOCAINE 100 MG SYRINGE ONE (08:49)
[2019-01-13] MEDS ORDERED: FENTAnyl 50 MCG/ML VIAL ONE ×2 (08:49→10:01)
[2019-01-13] MEDS ORDERED: MIDAZOLAM 1 MG/ML 2 ML INJ ONE (08:49)
--- NOTE | 2019-01-13 08:52 | HPN ---
Date/Time of Note Date/Time of Note DATE: 01/13/19 TIME: 08:52 Interval H&P Admission Note Pt. seen H&P reviewed: No system changes KIM ODELL DPM January 13, 2019 08:52
[2019-01-13] MEDS: GABAPENTIN 300 MG CAP PO SCH (09:00)
[2019-01-13] MEDS: NEOMYC/POLYMYX/BACIT 30 GM OINT TOP SCH (09:00)
[2019-01-13] MEDS: LISINOPRIL 5 MG TAB PO SCH (09:00)
[2019-01-13] MEDS ORDERED: BUPIVACAINE 0.5% (SDV) 30 ML INJ ONE (09:25)
[2019-01-13] MEDS ORDERED: CEFAZOLIN 1 GM INJ ONE (10:00)
[2019-01-13] MEDS ORDERED: LIDOCAINE 2% (MDV) 20 ML INJ ONE (10:05)
[2019-01-13] MEDS ORDERED: ETOMIDATE 20 MG INJ ONE (10:26)
[2019-01-13] MEDS ORDERED: PROPOFOL 100 ML ONE (10:26)
[2019-01-13] MEDS ORDERED: HYDROmorphONE 1 MG/5 ML IV SYRINGE IV PRN ×2 (10:30)
[2019-01-13] MEDS ORDERED: LABETALOL HCL 20MG INJ IV PRN (10:30)
[2019-01-13] MEDS ORDERED: ONDANSETRON 4 MG INJ IV PRN (10:30)
[2019-01-13] MEDS ORDERED: METOCLOPRAMIDE 10 MG INJ IV PRN (10:30)
[2019-01-13] MEDS ORDERED: hydrALAzine 20 MG INJ IV PRN (10:30)
[2019-01-13] MEDS ORDERED: FENTAnyl 50 MCG/ML VIAL IV PRN ×2 (10:30)
--- NOTE | 2019-01-13 10:37 | PAC ---
Date/Time of Note Date/Time of Note DATE: 01/13/19 TIME: 10:37 Post-Anesthesia Notes Post-Anesthesia Note Last documented vital signs Vital Signs Date Temp Pulse Resp B/P (MAP) Pulse Ox O2 O2 Flow FiO2 Time Delivery Rate 01/13/19 98.0 69 20 108/62 99 07:45 (77) 01/11/19 Room Air 07:27 Activity: WNL Respiratory function: WNL Cardiovascular function: WNL Mental status: Baseline Pain reasonably controlled: Yes Hydration appropriate: Yes Nausea/Vomiting absent: Yes MATHEW FORREST January 13, 2019 10:37
--- NOTE | 2019-01-13 10:40 | SIPON ---
Date/Time of Note Date/Time of Note DATE: 01/13/19 TIME: 10:38 Operative Report Preoperative Diagnosis Right Calcneal ulceration. DFU. Postoperative Diagnosis Same Operation/Procedure Performed Debridement of the ulceration. application of Allograft. Surgeon see signature line assistant chief nursing officer None. Anesthesia: MAC Estimated blood loss: minimal Transfusion Required none Specimen Necrotic Tissue. Grafts/Implants none Complications none KIM ODELL DPM January 13, 2019 10:40
--- NOTE | 2019-01-13 10:42 | SIPON ---
Date/Time of Note Date/Time of Note DATE: 01/13/19 TIME: 10:40 Operative Report Preoperative Diagnosis DFU. Postoperative Diagnosis Same Operation/Procedure Performed Debridement of the right calcaneal ulceration. Surgeon see signature line gynecological assistant None. Anesthesia: MAC Estimated blood loss: minimal Transfusion Required none Specimen Necrotic Tissue Grafts/Implants Acell. Allograft. Complications none KIM ODELL DPM January 13, 2019 10:42
--- NOTE | 2019-01-13 10:47 | CONS ---
Consultation Date/Type/Reason Admit Date/Time January 09, 2019 at 18:17 Initial Consult Date 01/10/19 Requesting Provider: KRISTIN PRYOR MD Date/Time of Note DATE: 01/13/19 TIME: 10:47 24 HR Interval Summary Free Text/Dictation In OR now, VS reviewed Exam/Review of Systems Exam Vitals Vital Signs Date Temp Pulse Resp B/P (MAP) Pulse Ox O2 O2 Flow FiO2 Time Delivery Rate 01/13/19 74 12 98/64 (75) 92 Room Air 10:45 01/13/19 98.6 10:41 01/13/19 6.0 10:35 Intake and Output 01/12/19 01/12/19 01/13/19 1515:00 23:00 07:00 IntakeIntake Total 1450 ml 1010 ml 350 ml OutputOutput Total 200 ml 450 ml BalanceBalance 1250 ml 560 ml 350 ml Results Result Diagram: 01/12/19 0456 01/12/19 0455 Results 24hrs Laboratory Tests Test 01/12/19 12:49 01/12/19 14:54 01/12/19 17:37 01/12/19 21:26 Bedside Glucose 108 157 110 Vancomycin Level Trough 13.7 Test 01/13/19 09:08 Bedside Glucose 126 Medications Medication Current Medications Amiodarone HCl (Cordarone) 200 mg DAILY PO Last administered on 01/12/19 09:35; Admin Dose 200 MG; Start 01/10/19 at 09:00 Clopidogrel Bisulfate (plaVIX) 75 mg DAILY PO Last administered on 01/12/19 09:33; Admin Dose 75 MG; Start 01/10/19 at 09:00 Digoxin (Digoxin) 0.125 mg DAILY@1300 PO Last administered on 01/12/19 12:32; Admin Dose 0.125 MG; Start 01/10/19 at 13:00 Gabapentin (Neurontin) 600 mg DAILY PO Last administered on 01/12/19 09:34; Admin Dose 600 MG; Start 01/10/19 at 09:00 Empaglifozin (Jardiance) 25 mg DAILY PO Last administered on 01/12/19 11:17; Admin Dose 25 MG; Start 01/10/19 at 09:00 Linagliptin (Tradjenta) 5 mg DAILY PO Last administered on 5/6/19at 09:34; Admin Dose 5 MG; Start 01/10/19 at 09:00 Diagnostic Test (Pha) (Accu-Chek) 1 ea AC MEALS AND BEDTIME XX Last administe red on 01/13/19at 07:00; Admin Dose 1 EA; Start 01/09/19 at 21:00 Acetaminophen (Tylenol Tab) 650 mg Q4H PRN PO MILD PAIN(1-3)OR ELEVATED TEMP; Start 01/09/19 at 20:30 Acetaminophen/ Hydrocodone Bitart ([place] (5/325)) 1 tab Q4H PRN PO MODERATE PAIN LEVEL 4-6 Last administered on 01/13/19 02:18; Admin Dose 1 TAB; Start 01/09/19 at 20:30 Ondansetron HCl (Zofran Inj) 4 mg Q6H PRN IV NAUSEA AND/OR VOMITING; Start 01/09/19 at 20:30 Diagnostic Test (Pha) (Accu-Chek) 1 ea 02 XX ; Start 01/10/19 at 02:00 Insulin Aspart (Novolog Insulin Pen) NOVOLOG *MILD* ALGORITHM WITH MEALS BEDTIME SC Last administered on 01/12/19 17:53; Admin Dose 1 UNIT; Start 01/09/19 at 22:30 Miscellaneous Information 1 ea NOTE XX ; Start 01/09/19 at 21:30 Glucose (Glutose) 15 gm Q15M PRN PO DECREASED GLUCOSE; Start 01/09/19 at 21:30 Glucose (Glutose) 22.5 gm Q15M PRN PO DECREASED GLUCOSE; Start 01/09/19 at 21:30 Dextrose (D50w Syringe) 25 ml Q15M PRN IV DECREASED GLUCOSE; Start 01/09/19 at 21:30 Dextrose (D50w Syringe) 50 ml Q15M PRN IV DECREASED GLUCOSE; Start 01/09/19 at 21:30 Glucagon (Glucagen) 1 mg Q15M PRN IM DECREASED GLUCOSE; Start 01/09/19 at 21:30 Glucose (Glutose) 15 gm Q15M PRN BUCCAL DECREASED GLUCOSE; Start 01/09/19 at 21:30 Insulin Glargine (Lantus) 18 units QHS SC Last administered on 01/12/19 21:33; Admin Dose 18 UNITS; Start 01/09/19 at 22:30 Carvedilol (Coreg) 3.125 mg BID PO Last administered on 01/12/19at 21:30; Admin Dose 3.125 MG; Start 01/10/19 at 21:00 Morphine Sulfate (morphine) 4 mg Q4H PRN IV SEVERE PAIN LEVEL 7-10 Last administered on 01/13/19at 07:59; Admin Dose 4 MG; Start 01/11/19 at 00:00 Vancomycin HCl (Vanco Iv Per Pharmacy) VANCOMYCIN PER PHARMACY PER PROTOCOL XX ; Start 01/11/19 at 02:30 Vancomycin HCl 1.5 gm/Sodium Chloride 250 ml @ 83.333 mls/ hr Q12H IVPB Last administered on 01/13/19at 03:22; Admin Dose 83.333 MLS/HR; Start 01/11/19 at 16:00 Meropenem/Sodium Chloride 50 ml @ 100 mls/hr Q8 IVPB Last administered on 01/13/19at 06:32; Admin Dose 100 MLS/HR; Start 01/11/19 at 19:30 Lisinopril (Zestril) 2.5 mg DAILY PO ; Start 01/13/19 at 09:00 Clindamycin HCl/ Dextrose 50 ml @ 50 mls/hr Q8 IVPB Last administered on 01/13/19at 07:09; Admin Dose 50 MLS/HR; Start 01/12/19 at 22:00 Senna (Senokot) 1 tab DAILY PRN PO CONSTIPATION; Start 01/12/19 at 18:30 Docusate Sodium (Colace) 100 mg BID PRN PO CONSTIPATION; Start 01/12/19 at 18:30 Neomycin/ Polymyxin/ Bacitracin (Neosporin Topical Oint) 1 applic DAILY TOP ; Start 01/12/19 at 18:30 Hydromorphone HCl (Dilaudid) 0.2 mg PACU PRN IV MILD PAIN 1-3; Start 01/13/19 at 10:30; Stop 01/13/19 at 20:00 Hydromorphone HCl (Dilaudid) 0.4 mg PACU PRN IV MOD PAIN 4-6; Start 01/13/19 at 10:30; Stop 01/13/19 at 20:00 Fentanyl (Sublimaze) 25 mcg PACU ORDER PRN IV MILD PAIN 1-3; Start 5/7/19 at 10:30; Stop 01/13/19 at 20:00 Fentanyl (Sublimaze) 50 mcg PACU ORDER PRN IV MOD PAIN 4-6; Start 01/13/19 at 10:30; Stop 01/13/19 at 20:00 Ondansetron HCl (Zofran Inj) 4 mg PACU ORDER PRN IV NAUSEA/VOMITING; Start 01/13/19 at 10:30; Stop 01/13/19 at 20:00 Metoclopramide HCl (Reglan) 10 mg PACU ORDER PRN IV NAUSEA/VOMITING; Start 01/13/19 at 10:30; Stop 01/13/19 at 20:00 Labetalol HCl (Labetalol) 5 mg PACU ORDER PRN IV HIGH BLOOD PRESSURE; Start 01/13 at 10:30; Stop 01/13/19 at 20:00 Hydralazine HCl (Apresoline) 5 mg PACU ORDER PRN IV HIGH BLOOD PRESSURE; Start 01/13/19 at 10:30; Stop 01/13/19 at 20:00 MIGUEL WADE MD January 13, 2019 10:47
[2019-01-13] MEDS: EMPAGLIFLOZIN 10 MG TABLET PO SCH (11:41)
[2019-01-13] MEDS: LINAGLIPTIN 5 MG TABLET PO SCH (11:42)
[2019-01-13] MEDS: AMIODARONE 200 MG TAB PO SCH (11:42)
[2019-01-13] MEDS: CLOPIDOGREL 75 MG TAB PO SCH (11:42)
--- NOTE | 2019-01-13 12:59 | OPR ---
DATE OF OPERATION: 01/13/2019 PREOPERATIVE DIAGNOSIS: Right ulceration of the Achilles region diabetes, diabetic foot ulceration a nd peripheral vascular disease. POSTOPERATIVE DIAGNOSIS: Right ulceration of the Achilles region diabetes, diabetic foot ulceration and peripheral vascular disease. DESCRIPTION OF PROCEDURE: The patient was brought into the OR and approximately 10 mL of 0.5% plain Marcaine was utilized circumferentially around the ulceration on the plantar medial aspect of the rig ht calcaneal region. After anesthesia was achieved, the tourniquet was applied around the ankle. e foot and ankle were cleaned with Betadine solution. A tourniquet was applied around the ankle. Es march was utilized to exsanguinate the foot and ankle and the tourniquet was inflated to approximatel y 250 mmHg. Attention was then directed to the posterior medial aspect of the right calcaneal region . Utilizing a #10 blade, the necrotic tissue was removed up circumferentially around the rim of the ulceration to create excellent bleeding in the region. Utilizing scissors a 10 blade and a curet wit h necrotic adipose tissue was debrided and removed from the central area of the wound. The wound is approximately 4.5 x 4 x 2 cm in depth. Continued debridement is done down to the adipose, fascia and bone layer. The area was then inspected. There was no necrotic adipose tissue noted. There did no t appear to be any osteomyelitic changes in the plantar aspect of the calcaneus. There is excellent bleeding around the wound periphery as well as the central area of the wound. Anaerobic and aerobic cultures were taken at this time. Utilizing the pulse lavage approximately 1000 mL of antibiotic natan ution was utilized to lavage the ulcerative area. Once again, the ulcer was inspected. There was ex cellent bleeding and no necrotic tissue was noted around the ulcer or centrally. The area was then i njected with approximately 9 mL of 0.5% plain Marcaine. It should also be noted that intraoperativel y 2% plain lidocaine was used approximately 8 mL. After the area was inspected for excellent bleedin g, 1 gram of ACell allograft Micro-Matrix powder paste was utilized to fill the void where the ulcera tion remained. In addition, a 7 x 10 cm ACell second layer was applied, which is considered the wou nd sheet over the area and followed with Adaptic and gel to keep the wound moist. A dressing was the n applied of gauze, rolled gauze, Coban and an Anupam wrap. The tourniquet was released and normoactive hyperemia was noted to all the digits of the right foot. This patient tolerated the procedure well and left the OR in stable condition. There were no intraoperative complications noted. There was mi nimal blood loss noted. Dictated By: KIM ODELL MD RS/NTS Conf#: [id number] DID#: [id number] CC: KRISTIN PRYOR MD;*EndCC*
[2019-01-13] MEDS: DIGOXIN 0.125 MG TAB PO SCH (13:12)
--- NOTE | 2019-01-13 16:42 | CONS ---
Assessment/Plan Assessment/Plan Hospital Course (Demo Recall) - infections of non-healing ulcer of R heel due to Gram negative bacteria. CT on 01/10/2019 did not show evidence of OM. ESR 26 on 01/09/2019 - chronic wound of R heel, in the past the wound culture grew E. coli - h/o OM of R foot, h/o 6 weeks of IV vancomycin and ceftriaxone in 2018. Pt remembers it was a "Staph infection." - trauma to R knee - CAD - PVD - h/o aortogram, RLE runoff and percutaneous angioplasty of the posterior tibial artery and the anterior tibial artery in 10/2018 - h/o CABG - h/o AICD placement - DM Recommendations: - consider picc line - will likely require 4-6 weeks abx - pending: blood culture x2 (NGTD), wound culture (prelim GNR, GNRx2, enteroc occus), aerobic and anaerobic bacteria - continue IV vancomycin (01/11/2019-) - Continue IV meropenem in case of ESBL+bacteria; s/p cefepime and metronidazole; - Continue clindamycin (01/11/2019-); Pt exhibits signs and Sx of progressive inflammation, and we recommend adding clindamycin until streptococcal infections are ruled out Consultation Date/Type/Reason Admit Date/Time January 09, 2019 at 18:17 Initial Consult Date 01/10/19 Requesting Provider: KRISTIN PRYOR MD Date/Time of Note DATE: 01/13/19 TIME: 16:32 24 HR Interval Summary Free Text/Dictation s/p debridement Exam/Review of Systems Exam Vitals Vital Signs Date Temp Pulse Resp B/P (MAP) Pulse Ox O2 O2 Flow FiO2 Time Delivery Rate 01/13/19 98.0 69 20 131/67 96 13:18 (88) 01/13/19 Room Air 11:00 01/13/19 6.0 10:35 Intake and Output 01/12/19 01/12/19 01/13/19 1515:00 23:00 07:00 IntakeIntake Total 1450 ml 1010 ml 350 ml OutputOutput Total 200 ml 450 ml BalanceBalance 1250 ml 560 ml 350 ml Constitutional: alert, oriented, well developed Psych: no complaints, nl mood/affect Head: normocephalic, atraumatic Eyes: nl conjunctiva, EOMI, nl lids, nl sclera, PERRL ENMT: nl external ears & nose, nl lips & teeth, nl nasal mucosa & septum Respiratory: clear to auscultation, normal air movement Cardiovascular: regular rate and rhythm, nl pulses Gastrointestinal: soft, nl liver, spleen, non-tender Musculoskeletal: nl extremities to inspection, nl gait and stance 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, nl mental status, nl speech, nl strength Skin: other (wound banadaged) Results Result Diagram: 01/12/19 0456 01/12/19 0455 Results 24hrs Laboratory Tests Test 01/12/19 17:37 01/12/19 21:26 01/13/19 09:08 01/13/19 11:36 Bedside Glucose 157 110 126 114 Medications Medication Current Medications Amiodarone HCl (Cordarone) 200 mg DAILY PO Last administered on 01/13/19 11:42; Admin Dose 200 MG; Start 01/10/19 at 09:00 Clopidogrel Bisulfate (plaVIX) 75 mg DAILY PO Last administered on 01/13/19 11:42; Admin Dose 75 MG; Start 01/10/19 at 09:00 Digoxin (Digoxin) 0.125 mg DAILY@1300 PO Last administered on 01/13/19 13:12; Admin Dose 0.125 MG; Start 01/10/19 at 13:00 Gabapentin (Neurontin) 600 mg DAILY PO Last administered on 01/12/19 09:34; Admin Dose 600 MG; Start 01/10/19 at 09:00 Empaglifozin (Jardiance) 25 mg DAILY PO Last administered on 01/13/19 11:41; Admin Dose 25 MG; Start 01/10/19 at 09:00 Linagliptin (Tradjenta) 5 mg DAILY PO Last administered on 01/13/19 11:42; Admin Dose 5 MG; Start 01/10/19 at 09:00 Diagnostic Test (Pha) (Accu-Chek) 1 ea AC MEALS AND BEDTIME XX Last administered on 01/13/19 11:36; Admin Dose 1 EA; Start 01/09/19 at 21:00 Acetaminophen (Tylenol Tab) 650 mg Q4H PRN PO MILD PAIN(1-3)OR ELEVATED TEMP; Start 01/09/19 at 20:30 Acetaminophen/ Hydrocodone Bitart ([place] (5/325)) 1 tab Q4H PRN PO MODERATE PA IN LEVEL 4-6 Last administered on 01/13/19at 16:00; Admin Dose 1 TAB; Start 01/09/19 at 20:30 Ondansetron HCl (Zofran Inj) 4 mg Q6H PRN IV NAUSEA AND/OR VOMITING; Start 01/09/19 at 20:30 Diagnostic Test (Pha) (Accu-Chek) 1 ea 02 XX ; Start 01/10/19 at 02:00 Insulin Aspart (Novolog Insulin Pen) NOVOLOG *MILD* ALGORITHM WITH MEALS BEDTIME SC Last administered on 01/12/19at 17:53; Admin Dose 1 UNIT; Start 01/09/19 at 22:30 Miscellaneous Information 1 ea NOTE XX ; Start 01/09/19 at 21:30 Glucose (Glutose) 15 gm Q15M PRN PO DECREASED GLUCOSE; Start 01/09/19 at 21:30 Glucose (Glutose) 22.5 gm Q15M PRN PO DECREASED GLUCOSE; Start 01/09/19 at 21:30 Dextrose (D50w Syringe) 25 ml Q15M PRN IV DECREASED GLUCOSE; Start 01/09/19 at 21:30 Dextrose (D50w Syringe) 50 ml Q15M PRN IV DECREASED GLUCOSE; Start 01/09/19 at 21:30 Glucagon (Glucagen) 1 mg Q15M PRN IM DECREASED GLUCOSE; Start 01/09/19 at 21:30 Glucose (Glutose) 15 gm Q15M PRN BUCCAL DECREASED GLUCOSE; Start 01/09/19 at 21:30 Insulin Glargine (Lantus) 18 units QHS SC Last administered on 01/12/19at 21:33; Admin Dose 18 UNITS; Start 01/09/19 at 22:30 Carvedilol (Coreg) 3.125 mg BID PO Last administered on 01/12/19at 21:30; Admin Dose 3.125 MG; Start 01/10/19 at 21:00 Morphine Sulfate (morphine) 4 mg Q4H PRN IV SEVERE PAIN LEVEL 7-10 Last administered on 01/13/19at 13:07; Admin Dose 4 MG; Start 01/11/19 at 00:00 Vancomycin HCl (Vanco Iv Per Pharmacy) VANCOMYCIN PER PHARMACY PER PROTOCOL XX ; Start 01/11/19 at 02:30 Vancomycin HCl 1.5 gm/Sodium Chloride 250 ml @ 83.333 mls/ hr Q12H IVPB Last administered on 01/13/19at 16:06; Admin Dose 83.333 MLS/HR; Start 01/11/19 at 16:00 Meropenem/Sodium Chloride 50 ml @ 100 mls/hr Q8 IVPB Last administered on 01/13/19at 13:09; Admin Dose 100 MLS/HR; Start 01/11/19 at 19:30 Lisinopril (Zestril) 2.5 mg DAILY PO ; Start 01/13/19 at 09:00 Clindamycin HCl/ Dextrose 50 ml @ 50 mls/hr Q8 IVPB Last administered on 01/13/19at 14:01; Admin Dose 50 MLS/HR; Start 01/12/19 at 22:00 Senna (Senokot) 1 tab DAILY PRN PO CONSTIPATION; Start 01/12/19 at 18:30 Docusate Sodium (Colace) 100 mg BID PRN PO CONSTIPATION; Start 01/12/19 at 18:30 Neomycin/ Polymyxin/ Bacitracin (Neosporin Topical Oint) 1 applic DAILY TOP ; Start 01/12/19 at 18:30 Hydromorphone HCl (Dilaudid) 0.2 mg PACU PRN IV MILD PAIN 1-3; Start 01/13/19 at 10:30; Stop 01/13/19 at 20:00 Hydromorphone HCl (Dilaudid) 0.4 mg PACU PRN IV MOD PAIN 4-6; Start 01/13/19 at 10:30; Stop 01/13/19 at 20:00 Fentanyl (Sublimaze) 25 mcg PACU ORDER PRN IV MILD PAIN 1-3; Start 01/13/19 at 10:30; Stop 01/13/19 at 20:00 Fentanyl (Sublimaze) 50 mcg PACU ORDER PRN IV MOD PAIN 4-6; Start 01/13/19 at 10:30; Stop 01/13/19 at 20:00 Ondansetron HCl (Zofran Inj) 4 mg PACU ORDER PRN IV NAUSEA/VOMITING; Start 01/13/19 at 10:30; Stop 01/13/19 at 20:00 Metoclopramide HCl (Reglan) 10 mg PACU ORDER PRN IV NAUSEA/VOMITING; Start 01/13/19 at 10:30; Stop 01/13/19 at 20:00 Labetalol HCl (Labetalol) 5 mg PACU ORDER PRN IV HIGH BLOOD PRESSURE; Start 01/13/19 at 10:30; Stop 01/13/19 at 20:00 Hydralazine HCl (Apresoline) 5 mg PACU ORDER PRN IV HIGH BLOOD PRESSURE; Start 01/13/19 at 10:30; Stop 01/13/19 at 20:00 Enoxaparin Sodium (Lovenox) 30 mg DAILY SC ; Start 01/14/19 at 09:00 DENITA WOMACK MD January 13, 2019 16:42
--- NOTE | 2019-01-13 17:39 | CONS ---
DATE OF ADMISSION: 01/09/2019 DATE OF CONSULTATION: 01/13/2019 TYPE OF CONSULTATION: Orthopedic surgical. HISTORY OF PRESENT ILLNESS: The patient is a 63-year-old male who was admitted for the surgical care of the necrotic right heel wound on 01/09/2019. PAST MEDICAL HISTORY: He has multiple medical problems including coronary artery disease, status pos t CABG, status post AICD placement, hypertension, diabetes mellitus, peripheral vascular disease, sta tus post percutaneous angioplasty of the tibial arteries. He obviously had a ground-level fall about 4 days ago and was having painful swelling involving his r ight knee along with the pain involving the left low back. He seems to have a history of spondylolis thesis according to his description in the past. PHYSICAL EXAMINATION: GENERAL: My examination revealed a 63-year-old male who can be up and around without too much proble ms. MUSCULOSKELETAL: There was minimal swelling of the soft tissue around the anterior aspect of the rig ht knee with small area of abrasions. There were no gross instabilities and there was no obvious eff usion in the knee joint. There was mild tenderness in the medial aspect of the prepatellar area of t he right knee. The examination of the low back revealed mild tenderness at the left lumbosacral junc tion. Range of motion of the lumbosacral spine was essentially within normal limits. Straight leg r aising was negative up to 80 degrees bilaterally. There were no signs of motor weakness or sensory c hanges in the distribution of the lumbosacral spinal nerve. Deep tendon reflexes excluding ankle carloine k was essentially within normal limits. DIAGNOSTIC DATA: X-ray of the right knee was essentially within normal limits. DIAGNOSTIC IMPRESSION: 1. Soft tissue contusion and abrasion over the anterior aspect of the right knee, minimally symptoma tic at this time. No signs of fracture or dislocations. 2. Recurrent low back pain at the lumbosacral area following the fall without any signs of lumbosacr al radiculopathy. RECOMMENDATIONS FOR MANAGEMENT: 1. Continue observation for right knee. 2. X-rays of the lumbosacral spine to complete the evaluation. Dictated By: CHRISTIANO SULTANA/NTS Conf#: [id number] DID#: [id number] CC: VERO MAHONEY MD; KRISTIN PRYOR MD;*EndCC*
[2019-01-13] MEDS: SENNA TAB PO PRN (17:49)
--- NOTE | 2019-01-13 19:46 | PN ---
Date/Time of Note Date/Time of Note DATE: 01/13/19 TIME: 19:41 Assessment/Plan VTE Prophylaxis Risk score (from Ns)>0 risk: 2 SCD applied (from [facility] [place]): No SCD contraindicated: other Pharmacological prophylaxis: NA/contraindicated Pharm contraindication: surgical contra Lines/Catheters [facility] Peripheral IV Urinary Cath still in place: No Assessment/Plan Hospital Course Patient underwent right heel wound debridement today in the morning, patient complains of the left lower extremity pain pending a lumbar spine x-ray. Continue current pain management. Assessment/Plan -Right heel necrotic wound. Dr. Mata is following in podiatry consultation. Status post debridement. Continue antibiotics per ID. Dr. Landa is following in infection disease consultation. -Chronic peripheral vascular disease, history of angioplasty x2. Dr. Sheppard is following in vascular surgery consultation with recommendation for a right pop DP bypass next week. -Coronary artery disease, status post coronary artery bypass graft. Continue Plavix. -Cardiomyopathy with ejection fraction of 25%. Continue Coreg. Dr. Foster is following in cardiology consultation. -Status post AICD. -Hypertension. -Diabetes hemoglobin A1c 7.6. -Right knee contusion and abrasion status post fall. Status post evaluation by Dr. Zelaya and orthopedic surgery. No signs of fracture or dystrophic dislocation. Further recommendations based on clinical course. Plan of care discussed with Dr. Mann. Result Diagram: 01/12/19 0456 01/12/19 0455 Results 24hrs Laboratory Tests Test 01/12/19 21:26 01/13/19 09:08 01/13/19 11:36 01/13/19 17:39 Bedside Glucose 110 126 114 132 Exam/Review of Systems Exam Vitals Vital Signs Date Temp Pulse Resp B/P (MAP) Pulse Ox O2 O2 Flow FiO2 Time Delivery Rate 01/13/19 98.0 69 20 131/67 96 13:18 (88) 01/13/19 Room Air 12:40 01/13/19 6.0 10:35 Intake and Output 01/12/19 01/12/19 01/13/19 1515:00 23:00 07:00 IntakeIntake Total 1450 ml 1010 ml 350 ml OutputOutput Total 200 ml 450 ml BalanceBalance 1250 ml 560 ml 350 ml Exam Constitutional: alert, oriented Respiratory: clear to auscultation Cardiovascular: nl pulses Gastrointestinal: soft, non-tender Extremities: normal pulses, other (Right heel wound) Results Results 24hrs Laboratory Tests Test 01/12/19 21:26 01/13/19 09:08 01/13/19 11:36 01/13/19 17:39 Bedside Glucose 110 126 114 132 Medications Medication Current Medications Amiodarone HCl (Cordarone) 200 mg DAILY PO Last administered on 01/13/19 11:42; Admin Dose 200 MG; Start 01/10/19 at 09:00 Clopidogrel Bisulfate (plaVIX) 75 mg DAILY PO Last administered on 01/13/19 11:42; Admin Dose 75 MG; Start 01/10/19 at 09:00 Digoxin (Digoxin) 0.125 mg DAILY@1300 PO Last administered on 01/13/19 13:12; Admin Dose 0.125 MG; Start 01/10/19 at 13:00 Gabapentin (Neurontin) 600 mg DAILY PO Last administered on 01/12/19 09:34; Admin Dose 600 MG; Start 01/10/19 at 09:00 Empaglifozin (Jardiance) 25 mg DAILY PO Last administered on 01/13/19 11:41; Admin Dose 25 MG; Start 01/10/19 at 09:00 Linagliptin (Tradjenta) 5 mg DAILY PO Last administered on 01/13/19 11:42; Admin Dose 5 MG; Start 01/10/19 at 09:00 Diagnostic Test (Pha) (Accu-Chek) 1 ea AC MEALS AND BEDTIME XX Last administered on 01/13/19 17:35; Admin Dose 1 EA; Start 01/09/19 at 21:00 Acetaminophen (Tylenol Tab) 650 mg Q4H PRN PO MILD PAIN(1-3)OR ELEVATED TEMP; Start 01/09/19 at 20:30 Acetaminophen/ Hydrocodone Bitart ([place] (5/325)) 1 tab Q4H PRN PO MODERATE PAIN LEVEL 4-6 Last administered on 01/13/19 16:00; Admin Dose 1 TAB; Start 01/09/19 at 20:30 Ondansetron HCl (Zofran Inj) 4 mg Q6H PRN IV NAUSEA AND/OR VOMITING; Start 01/09/19 at 20:30 Diagnostic Test (Pha) (Accu-Chek) 1 ea 02 XX ; Start 01/10/19 at 02:00 Insulin Aspart (Novolog Insulin Pen) NOVOLOG *MILD* ALGORITHM WITH MEALS BEDTIME SC Last administered on 01/12/19 17:53; Admin Dose 1 UNIT; Start 01/09/19 at 22:30 Miscellaneous Information 1 ea NOTE XX ; Start 01/09/19 at 21:30 Glucose (Glutose) 15 gm Q15M PRN PO DECREASED GLUCOSE; Start 01/09/19 at 21:30 Glucose (Glutose) 22.5 gm Q15M PRN PO DECREASED GLUCOSE; Start 01/09/19 at 21:30 Dextrose (D50w Syringe) 25 ml Q15M PRN IV DECREASED GLUCOSE; Start 01/09/19 at 21:30 Dextrose (D50w Syringe) 50 ml Q15M PRN IV DECREASED GLUCOSE; Start 01/09/19 at 21:30 Glucagon (Glucagen) 1 mg Q15M PRN IM DECREASED GLUCOSE; Start 01/09/19 at 21:30 Glucose (Glutose) 15 gm Q15M PRN BUCCAL DECREASED GLUCOSE; Start 01/09/19 at 21: 30 Insulin Glargine (Lantus) 18 units QHS SC Last administered on 01/12/19 21:33; Admin Dose 18 UNITS; Start 01/09/19 at 22:30 Carvedilol (Coreg) 3.125 mg BID PO Last administered on 01/12/19 21:30; Admin Dose 3.125 MG; Start 01/10/19 at 21:00 Morphine Sulfate (morphine) 4 mg Q4H PRN IV SEVERE PAIN LEVEL 7-10 Last administered on 01/13/19 17:34; Admin Dose 4 MG; Start 01/11/19 at 00:00 Vancomycin HCl (Vanco Iv Per Pharmacy) VANCOMYCIN PER PHARMACY PER PROTOCOL XX ; Start 01/11/19 at 02:30 Vancomycin HCl 1.5 gm/Sodium Chloride 250 ml @ 83.333 mls/ hr Q12H IVPB Last administered on 01/13/19 16:06; Admin Dose 83.333 MLS/HR; Start 01/11/19 at 16:00 Meropenem/Sodium Chloride 50 ml @ 100 mls/hr Q8 IVPB Last administered on 01/13/19 13:09; Admin Dose 100 MLS/HR; Start 01/11/19 at 19:30 Lisinopril (Zestril) 2.5 mg DAILY PO ; Start 01/13/19 at 09:00 Clindamycin HCl/ Dextrose 50 ml @ 50 mls/hr Q8 IVPB Last administered on 01/13/19at 14:01; Admin Dose 50 MLS/HR; Start 01/12/19 at 22:00 Senna (Senokot) 1 tab DAILY PRN PO CONSTIPATION Last administered on 01/13/19at 17:49; Admin Dose 1 TAB; Start 01/12/19 at 18:30 Docusate Sodium (Colace) 100 mg BID PRN PO CONSTIPATION; Start 01/12/19 at 18:30 Neomycin/ Polymyxin/ Bacitracin (Neosporin Topical Oint) 1 applic DAILY TOP ; Start 01/12/19 at 18:30 Hydromorphone HCl (Dilaudid) 0.2 mg PACU PRN IV MILD PAIN 1-3; Start 01/13/19 at 10:30; Stop 01/13/19 at 20:00 Hydromorphone HCl (Dilaudid) 0.4 mg PACU PRN IV MOD PAIN 4-6; Start 01/13/19 at 10:30; Stop 01/13/19 at 20:00 Fentanyl (Sublimaze) 25 mcg PACU ORDER PRN IV MILD PAIN 1-3; Start 01/13/19 at 10:30; Stop 01/13/19 at 20:00 Fentanyl (Sublimaze) 50 mcg PACU ORDER PRN IV MOD PAIN 4-6; Start 01/13/19 at 10 :30; Stop 01/13/19 at 20:00 Ondansetron HCl (Zofran Inj) 4 mg PACU ORDER PRN IV NAUSEA/VOMITING; Start 01/13/19 at 10:30; Stop 01/13/19 at 20:00 Metoclopramide HCl (Reglan) 10 mg PACU ORDER PRN IV NAUSEA/VOMITING; Start 01/13/19 at 10:30; Stop 01/13/19 at 20:00 Labetalol HCl (Labetalol) 5 mg PACU ORDER PRN IV HIGH BLOOD PRESSURE; Start 01/13/19 at 10:30; Stop 01/13/19 at 20:00 Hydralazine HCl (Apresoline) 5 mg PACU ORDER PRN IV HIGH BLOOD PRESSURE; Start 01/13/19 at 10:30; Stop 01/13/19 at 20:00 Enoxaparin Sodium (Lovenox) 30 mg DAILY SC ; Start 01/14/19 at 09:00 RAMESH SOLORZANO January 13, 2019 19:46
[2019-01-13] MEDS: INSULIN GLARGINE [LANTus] (100 UNITS/ML) SYG SC SCH (20:43)
[2019-01-14 01:52] VITALS: BP 114/64; PULSE 72; RESP 18
[2019-01-14] MEDS: ACCU-CHEK XX SCH ×5 (02:00→21:04)
[2019-01-14] MEDS: morphine 4 MG/ML VIAL IV PRN ×4 (02:33→16:44)
[2019-01-14] MEDS: VANCOMYCIN HCL 1.5 GM in SOD CHLORIDE 0.9% 250 ML IVPB SCH ×3 (04:00→16:53)
[2019-01-14] MEDS: CLINDAMYCIN 900 MG/D5W (PMX) 50 ML IVPB SCH ×3 (06:00→23:26)
[2019-01-14] MEDS: MEROPENEM 1 GM/50ML(PMX) 50 ML IVPB SCH ×3 (06:02→21:43)
[2019-01-14] MEDS: INSULIN ASPART [NOVOLOG] 3 ML PEN SC SCH ×4 (08:00→21:00)
[2019-01-14 08:25] VITALS: BP 132/75; PULSE 85; RESP 17
[2019-01-14] MEDS: CLOPIDOGREL 75 MG TAB PO SCH (08:41)
[2019-01-14] MEDS: LISINOPRIL 5 MG TAB PO SCH (08:41)
[2019-01-14] MEDS: EMPAGLIFLOZIN 10 MG TABLET PO SCH (08:41)
[2019-01-14] MEDS: AMIODARONE 200 MG TAB PO SCH (08:41)
[2019-01-14] MEDS: NEOMYC/POLYMYX/BACIT 30 GM OINT TOP SCH (08:42)
[2019-01-14] MEDS: ENOXAPARIN 30 MG/0.3 ML SYG SC SCH (08:48)
[2019-01-14] MEDS: GABAPENTIN 300 MG CAP PO SCH (08:49)
[2019-01-14] MEDS: LINAGLIPTIN 5 MG TABLET PO SCH (08:50)
[2019-01-14] MEDS: HYDROCODONE/APAP (10/325) TAB PO PRN (11:02)
[2019-01-14] MEDS: DIGOXIN 0.125 MG TAB PO SCH (14:25)
--- NOTE | 2019-01-14 14:37 | QN ---
Documentation Comment No new c/o. Foot was debrided yesterday. No pain. R foot wrapped - scheduled for R pop-DP bypass this Saturday AM - antibiotics per VERO MILIAN MD January 14, 2019 14:37
--- NOTE | 2019-01-14 14:51 | CONS ---
Assessment/Plan Assessment/Plan Hospital Course (Demo Recall) - infections of non-healing ulcer of R heel due to Gram negative bacteria. CT on 01/10/2019 did not show evidence of OM. ESR 26 on 01/09/2019 - chronic wound of R heel, in the past the wound culture grew E. coli - h/o OM of R foot, h/o 6 weeks of IV vancomycin and ceftriaxone in 2018. Pt remembers it was a "Staph infection." - trauma to R knee - CAD - PVD - h/o aortogram, RLE runoff and percutaneous angioplasty of the posterior tibial artery and the anterior tibial artery in 10/2018 - h/o CABG - h/o AICD placement - DM Recommendations: - consider picc line - will likely require 4-6 weeks abx - pending: blood culture x2 (NGTD), wound culture (prelim GNR, GNRx2, enteroc occus), aerobic and anaerobic bacteria - continue IV vancomycin (01/11/2019-) - Continue IV meropenem in case of ESBL+bacteria; s/p cefepime and metronidazole; - Continue clindamycin (01/11/2019-); Pt exhibits signs and Sx of progressive inflammation, and we recommend adding clindamycin until streptococcal infections are ruled out-- so far not uncovered. Consultation Date/Type/Reason Admit Date/Time January 09, 2019 at 18:17 Initial Consult Date 01/10/19 Requesting Provider: KRISTIN PRYOR MD Date/Time of Note DATE: 01/14/19 TIME: 14:49 24 HR Interval Summary Free Text/Dictation awaiting deep cx from foot. Exam/Review of Systems Exam Vitals Vital Signs Date Temp Pulse Resp B/P (MAP) Pulse Ox O2 O2 Flow FiO2 Time Delivery Rate 01/14/19 97.6 85 17 132/75 97 Room Air 08:25 (94) 01/13/19 6.0 10:35 Intake and Output 01/13/19 01/13/19 01/14/19 1515:00 23:00 07:00 IntakeIntake Total 630 ml 1020 ml 100 ml OutputOutput Total 860 ml 1925 ml BalanceBalance -230 ml -905 ml 100 ml Results Result Diagram: 01/14/19 0437 01/14/19 0437 Results 24hrs Laboratory Tests Test 01/13/19 17:39 01/13/19 20:39 01/14/19 04:37 01/14/19 08:19 Bedside Glucose 132 152 122 White Blood Count 10.4 # Red Blood Count 4.77 Hemoglobin 14.1 Hematocrit 42.9 Mean Corpuscular Volume 89.9 Mean Corpuscular 29.6 Hemoglobin Mean Corpuscular 32.9 Hemoglobin Concent Red Cell Distribution 14.3 Width Platelet Count 256 Mean Platelet Volume 10.9 H Immature Granulocytes % 0.500 H Neutrophils % 65.3 Lymphocytes % 21.0 Monocytes % 9.1 Eosinophils % 3.7 Basophils % 0.4 Nucleated Red Blood 0.0 Cells % Immature Granulocytes # 0.050 H Neutrophils # 6.8 Lymphocytes # 2.2 Monocytes # 1.0 H Eosinophils # 0.4 Basophils # 0.0 Nucleated Red Blood 0.0 Cells # Sodium Level 139 Potassium Level 5.0 Chloride Level 101 Carbon Dioxide Level 30 Anion Gap 8 Blood Urea Nitrogen 28 H Creatinine 0.68 Est Glomerular Filtrat > 60 Rate mL/min Glucose Level 122 Calcium Level 9.8 Magnesium Level 2.2 Test 01/14/19 12:40 Bedside Glucose 186 Medications Medication Current Medications Amiodarone HCl (Cordarone) 200 mg DAILY PO Last administered on 01/14/19 08:41; Admin Dose 200 MG; Start 01/10/19 at 09:00 Clopidogrel Bisulfate (plaVIX) 75 mg DAILY PO Last administered on 01/14/19 08:41; Admin Dose 75 MG; Start 01/10/19 at 09:00 Digoxin (Digoxin) 0.125 mg DAILY@1300 PO Last administered on 01/14/19 14:25; Admin Dose 0.125 MG; Start 01/10/19 at 13:00 Gabapentin (Neurontin) 600 mg DAILY PO Last administered on 01/12/19 09:34; Admin Dose 600 MG; Start 01/10/19 at 09:00 Empaglifozin (Jardiance) 25 mg DAILY PO Last administered on 01/14/19 08:41; Admin Dose 25 MG; Start 01/10/19 at 09:00 Linagliptin (Tradjenta) 5 mg DAILY PO Last administered on 01/14/19 08:50; Admin Dose 5 MG; Start 01/10/19 at 09:00 Diagnostic Test (Pha) (Accu-Chek) 1 ea AC MEALS AND BEDTIME XX Last administered on 01/14/19 11:30; Admin Dose 1 EA; Start 01/09/19 at 21:00 Acetaminophen (Tylenol Tab) 650 mg Q4H PRN PO MILD PAIN(1-3)OR ELEVATED TEMP; Start 01/09/19 at 20:30 Acetaminophen/ Hydrocodone Bitart ([place] (5/325)) 1 tab Q4H PRN PO MODERATE PAIN LEVEL 4-6 Last administered on 01/13/19 20:36; Admin Dose 1 TAB; Start 01/09/19 at 20:30 Ondansetron HCl (Zofran Inj) 4 mg Q6H PRN IV NAUSEA AND/OR VOMITING; Start 01/09/19 at 20:30 Diagnostic Test (Pha) (Accu-Chek) 1 ea 02 XX ; Start 01/10/19 at 02:00 Insulin Aspart (Novolog Insulin Pen) NOVOLOG *MILD* ALGORITHM WITH MEALS BEDTIME SC Last administered on 01/14/19 12:42; Admin Dose 1 UNIT; Start 01/09/19 at 22:30 Miscellaneous Information 1 ea NOTE XX ; Start 01/09/19 at 21:30 Glucose (Glutose) 15 gm Q15M PRN PO DECREASED GLUCOSE; Start 01/09/19 at 21:30 Glucose (Glutose) 22.5 gm Q15M PRN PO DECREASED GLUCOSE; Start 01/09/19 at 21:30 Dextrose (D50w Syringe) 25 ml Q15M PRN IV DECREASED GLUCOSE; Start 01/09/19 at 21:30 Dextrose (D50w Syringe) 50 ml Q15M PRN IV DECREASED GLUCOSE; Start 01/09/19 at 21:30 Glucagon (Glucagen) 1 mg Q15M PRN IM DECREASED GLUCOSE; Start 01/09/19 at 21:30 Glucose (Glutose) 15 gm Q15M PRN BUCCAL DECREASED GLUCOSE; Start 01/09/19 at 21:30 Insulin Glargine (Lantus) 18 units QHS SC Last administered on 01/13/19 20:43; Admin Dose 18 UNITS; Start 01/09/19 at 22:30 Carvedilol (Coreg) 3.125 mg BID PO Last administered on 01/14/19 08:50; Admin Dose 3.125 MG; Start 01/10/19 at 21:00 Morphine Sulfate (morphine) 4 mg Q4H PRN IV SEVERE PAIN LEVEL 7-10 Last administered on 01/14/19 12:34; Admin Dose 4 MG; Start 01/11/19 at 00:00 Vancomycin HCl (Vanco Iv Per Pharmacy) VANCOMYCIN PER PHARMACY PER PROTOCOL XX ; Start 01/11/19 at 02:30 Vancomycin HCl 1.5 gm/Sodium Chloride 250 ml @ 83.333 mls/ hr Q12H IVPB Last administered on 01/14/19 05:04; Admin Dose 83.333 MLS/HR; Start 01/11/19 at 16:00 Meropenem/Sodium Chloride 50 ml @ 100 mls/hr Q8 IVPB Last administered on 01/14/19 14:15; Admin Dose 100 MLS/HR; Start 01/11/19 at 19:30 Lisinopril (Zestril) 2.5 mg DAILY PO Last administered on 01/14/19 08:41; Admin Dose 2.5 MG; Start 01/13/19 at 09:00 Clindamycin HCl/ Dextrose 50 ml @ 50 mls/hr Q8 IVPB Last administered on 01/13/19 22:47; Admin Dose 50 MLS/HR; Start 01/12/19 at 22:00 Senna (Senokot) 1 tab DAILY PRN PO CONSTIPATION Last administered on 01/13/19 17:49; Admin Dose 1 TAB; Start 01/12/19 at 18:30 Docusate Sodium (Colace) 100 mg BID PRN PO CONSTIPATION; Start 01/12/19 at 18:30 Neomycin/ Polymyxin/ Bacitracin (Neosporin Topical Oint) 1 applic DAILY TOP Last administered on 01/14/19 08:42; Admin Dose 1 APPLIC; Start 01/12/19 at 18:30 Enoxaparin Sodium (Lovenox) 30 mg DAILY SC Last administered on 01/14/19 08:48; Admin Dose 30 MG; Start 01/14/19 at 09:00 Acetaminophen/ Hydrocodone Bitart ([place] (10/325)) 1 tab Q4H PRN PO MODERATE PAIN LEVEL 4-6 Last administered on 01/14/19 11:02; Admin Dose 1 TAB; Start 01/13/19 at 21:00 DENITA WOMACK MD January 14, 2019 14:51
[2019-01-14 14:55] VITALS: BP 92/54; PULSE 73; RESP 17
--- NOTE | 2019-01-14 15:28 | CONS ---
Assessment/Plan Assessment/Plan Hospital Course (Demo Recall) IMP: 1.Pre-op for peripheral bypass surgery. Lexiscan with no ischemia/+scar EF 28%. Echo EF 25%. OK to proceed to surgery at moderate CV risk 2.Cardiomyopathy with low EF-severely depressed by echo this admit 3.HTN 4.HL 5.Non-healing LE ulcer 6.PAD-severe s/p prior COTTON BAG CLIPPER 7.DM Recc: -Continue coreg/digoxin/zestril -Continue amio -Continue plavix -Continue abx's and f/u cx data -start daily lasix and follow volume status clsoely -local wound care -pnding LE bypass Consultation Date/Type/Reason Admit Date/Time January 09, 2019 at 18:17 Initial Consult Date 01/10/19 Type of Consult Cardiology Reason for Consultation preop Requesting Provider: KRISTIN PRYOR MD Date/Time of Note DATE: 01/14/19 TIME: 15:25 Exam/Review of Systems Vital Signs Vitals Vital Signs Date Temp Pulse Resp B/P (MAP) Pulse Ox O2 O2 Flow FiO2 Time Delivery Rate 01/14/19 98.4 73 17 92/54 (67) 96 Room Air 14:55 01/13/19 6.0 10:35 Intake and Output 01/13/19 01/13/19 01/14/19 1414:59 22:59 06:59 IntakeIntake Total 630 ml 1020 ml 100 ml OutputOutput Total 860 ml 1925 ml BalanceBalance -230 ml -905 ml 100 ml Exam Exam Review of Systems: CONSTITUTIONAL: No fevers, chills. PULMONARY: No sob CARDIOVASCULAR: No chest pain/palpitations GASTROINTESTINAL: No nausea/vomiting. GENITOURINARY: No hematuria/dysuria. MUSCULOSKELETAL: pain in foot PSYCHIATRIC: The patient denies depression. NEUROLOGIC: No weakness Constitutional: alert Psych: no complaints Head: normocephalic ENMT: mucosa pink and moist Neck: supple, jvd (9 cm water) Respiratory: diminished breath sounds (at bases/B) Cardiovascular: regular rate and rhythm Gastrointestinal: soft, non-tender Musculoskeletal: muscle tone (normal) Extremities: edema (none) 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: other (No focal deficits) Labs Result Diagram: 01/14/19 0437 01/14/19 0437 Results 24hrs Laboratory Tests Test 01/13/19 17:39 01/13/19 20:39 01/14/19 04:37 01/14/19 08:19 Bedside Glucose 132 152 122 White Blood Count 10.4 # Red Blood Count 4.77 Hemoglobin 14.1 Hematocrit 42.9 Mean Corpuscular Volume 89.9 Mean Corpuscular 29.6 Hemoglobin Mean Corpuscular 32.9 Hemoglobin Concent Red Cell Distribution 14.3 Width Platelet Count 256 Mean Platelet Volume 10.9 H Immature Granulocytes % 0.500 H Neutrophils % 65.3 Lymphocytes % 21.0 Monocytes % 9.1 Eosinophils % 3.7 Basophils % 0.4 Nucleated Red Blood 0.0 Cells % Immature Granulocytes # 0.050 H Neutrophils # 6.8 Lymphocytes # 2.2 Monocytes # 1.0 H Eosinophils # 0.4 Basophils # 0.0 Nucleated Red Blood 0.0 Cells # Sodium Level 139 Potassium Level 5.0 Chloride Level 101 Carbon Dioxide Level 30 Anion Gap 8 Blood Urea Nitrogen 28 H Creatinine 0.68 Est Glomerular Filtrat > 60 Rate mL/min Glucose Level 122 Calcium Level 9.8 Magnesium Level 2.2 Test 01/14/19 12:40 Bedside Glucose 186 Medications Medications Current Medications Amiodarone HCl (Cordarone) 200 mg DAILY PO Last administered on 01/14/19 08:41; Admin Dose 200 MG; Start 01/10/19 at 09:00 Clopidogrel Bisulfate (plaVIX) 75 mg DAILY PO Last administered on 01/14/19 08:41; Admin Dose 75 MG; Start 01/10/19 at 09:00 Digoxin (Digoxin) 0.125 mg DAILY@1300 PO Last administered on 01/14/19 14:25; Admin Dose 0.125 MG; Start 01/10/19 at 13:00 Gabapentin (Neurontin) 600 mg DAILY PO Last administered on 01/12/19 09:34; Admin Dose 600 MG; Start 01/10/19 at 09:00 Empaglifozin (Jardiance) 25 mg DAILY PO Last administered on 01/14/19 08:41; Admin Dose 25 MG; Start 01/10/19 at 09:00 Linagliptin (Tradjenta) 5 mg DAILY PO Last administered on 01/14/19 08:50; Admin Dose 5 MG; Start 01/10/19 at 09:00 Diagnostic Test (Pha) (Accu-Chek) 1 ea AC MEALS AND BEDTIME XX Last administered on 01/14/19 11:30; Admin Dose 1 EA; Start 01/09/19 at 21:00 Acetaminophen (Tylenol Tab) 650 mg Q4H PRN PO MILD PAIN(1-3)OR ELEVATED TEMP; Start 01/09/19 at 20:30 Acetaminophen/ Hydrocodone Bitart ([place] (5/325)) 1 tab Q4H PRN PO MODERATE PAIN LEVEL 4-6 Last administered on 01/13/19 20:36; Admin Dose 1 TAB; Start 01/09/19 at 20:30 Ondansetron HCl (Zofran Inj) 4 mg Q6H PRN IV NAUSEA AND/OR VOMITING; Start 01/09/19 at 20:30 Diagnostic Test (Pha) (Accu-Chek) 1 ea 02 XX ; Start 01/10/19 at 02:00 Insulin Aspart (Novolog Insulin Pen) NOVOLOG *MILD* ALGORITHM WITH MEALS BEDTIME SC Last administered on 01/14/19 12:42; Admin Dose 1 UNIT; Start 01/09/19 at 22:30 Miscellaneous Information 1 ea NOTE XX ; Start 01/09/19 at 21:30 Glucose (Glutose) 15 gm Q15M PRN PO DECREASED GLUCOSE; Start 01/09/19 at 21:30 Glucose (Glutose) 22.5 gm Q15M PRN PO DECREASED GLUCOSE; Start 01/09/19 at 21:30 Dextrose (D50w Syringe) 25 ml Q15M PRN IV DECREASED GLUCOSE; Start 01/09/19 at 21:30 Dextrose (D50w Syringe) 50 ml Q15M PRN IV DECREASED GLUCOSE; Start 01/09/19 at 21:30 Glucagon (Glucagen) 1 mg Q15M PRN IM DECREASED GLUCOSE; Start 01/09/19 at 21:30 Glucose (Glutose) 15 gm Q15M PRN BUCCAL DECREASED GLUCOSE; Start 01/09/19 at 21:30 Insulin Glargine (Lantus) 18 units QHS SC Last administered on 01/13/19 20:43; Admin Dose 18 UNITS; Start 01/09/19 at 22:30 Carvedilol (Coreg) 3.125 mg BID PO Last administered on 01/14/19 08:50; Admin Dose 3.125 MG; Start 01/10/19 at 21:00 Morphine Sulfate (morphine) 4 mg Q4H PRN IV SEVERE PAIN LEVEL 7-10 Last administered on 01/14/19 12:34; Admin Dose 4 MG; Start 01/11/19 at 00:00 Vancomycin HCl (Vanco Iv Per Pharmacy) VANCOMYCIN PER PHARMACY PER PROTOCOL XX ; Start 01/11/19 at 02:30 Vancomycin HCl 1.5 gm/Sodium Chloride 250 ml @ 83.333 mls/ hr Q12H IVPB Last administered on 01/14/19 05:04; Admin Dose 83.333 MLS/HR; Start 01/11/19 at 16:00 Meropenem/Sodium Chloride 50 ml @ 100 mls/hr Q8 IVPB Last administered on 01/14/19 14:15; Admin Dose 100 MLS/HR; Start 01/11/19 at 19:30 Lisinopril (Zestril) 2.5 mg DAILY PO Last administered on 01/14/19 08:41; Admin Dose 2.5 MG; Start 01/13/19 at 09:00 Clindamycin HCl/ Dextrose 50 ml @ 50 mls/hr Q8 IVPB Last administered on 22:47; Admin Dose 50 MLS/HR; Start 01/12/19 at 22:00 Senna (Senokot) 1 tab DAILY PRN PO CONSTIPATION Last administered on 01/13/19 17:49; Admin Dose 1 TAB; Start 01/12/19 at 18:30 Docusate Sodium (Colace) 100 mg BID PRN PO CONSTIPATION; Start 01/12/19 at 18:30 Neomycin/ Polymyxin/ Bacitracin (Neosporin Topical Oint) 1 applic DAILY TOP Last administered on 01/14/19 08:42; Admin Dose 1 APPLIC; Start 01/12/19 at 18:30 Enoxaparin Sodium (Lovenox) 30 mg DAILY SC Last administered on 01/14/19 08:48; Admin Dose 30 MG; Start 01/14/19 at 09:00 Acetaminophen/ Hydrocodone Bitart ([place] (10/325)) 1 tab Q4H PRN PO MODERATE PAIN LEVEL 4-6 Last administered on 01/14/19 11:02; Admin Dose 1 TAB; Start 01/13/19 at 21:00 VERO ARELLANO 8, 2019 15:28
[2019-01-14] MEDS: SENNA TAB PO PRN (16:52)
[2019-01-14] MEDS: DOCUSATE SODIUM 100 MG CAP PO PRN (16:52)
--- NOTE | 2019-01-14 17:34 | PN ---
Date/Time of Note Date/Time of Note DATE: 01/14/19 TIME: 17:31 Assessment/Plan VTE Prophylaxis Risk score (from Ns)>0 risk: 3 SCD applied (from Ns): Yes Pharmacological prophylaxis: LMWH Lines/Catheters IV [facility]ter Type [facility]from [facility] [place] Urinary Cath still in place: No Assessment/Plan Hospital Course Patient's complaints of low back pain, lumbar x-ray noted, follow-up orthopedic surgery recommendations, patient remains hemodynamically stable, afebrile pain is adequately controlled. Plan for vascular surgery on right lower extremity on Saturday. Assessment/Plan -Right heel necrotic wound. Dr. Mata is following in podiatry consultation. Status post debridement. Continue antibiotics per ID. Dr. Landa is following in infection disease consultation. -Chronic peripheral vascular disease, history of angioplasty x2. Dr. Sheppard is following in vascular surgery consultation with recommendation for a right pop DP bypass. -Coronary artery disease, status post coronary artery bypass graft. Continue Plavix. -Cardiomyopathy with ejection fraction of 25%. Continue Coreg. Dr. Foster is following in cardiology consultation. -Status post AICD. -Hypertension. -Diabetes hemoglobin A1c 7.6. -Right knee contusion and abrasion status post fall. Status post evaluation by Dr. Zelaya and orthopedic surgery. No signs of fracture or dystrophic dislocation. Further recommendations based on clinical course. Plan of care discussed with Dr. Mann. Result Diagram: 01/14/19 0437 01/14/19 0437 Results 24hrs Laboratory Tests Test 01/13/19 17:39 01/13/19 20:39 01/14/19 04:37 01/14/19 08:19 Bedside Glucose 132 152 122 White Blood Count 10.4 # Red Blood Count 4.77 Hemoglobin 14.1 Hematocrit 42.9 Mean Corpuscular Volume 89.9 Mean Corpuscular 29.6 Hemoglobin Mean Corpuscular 32.9 Hemoglobin Concent Red Cell Distribution 14.3 Width Platelet Count 256 Mean Platelet Volume 10.9 H Immature Granulocytes % 0.500 H Neutrophils % 65.3 Lymphocytes % 21.0 Monocytes % 9.1 Eosinophils % 3.7 Basophils % 0.4 Nucleated Red Blood 0.0 Cells % Immature Granulocytes # 0.050 H Neutrophils # 6.8 Lymphocytes # 2.2 Monocytes # 1.0 H Eosinophils # 0.4 Basophils # 0.0 Nucleated Red Blood 0.0 Cells # Sodium Level 139 Potassium Level 5.0 Chloride Level 101 Carbon Dioxide Level 30 Anion Gap 8 Blood Urea Nitrogen 28 H Creatinine 0.68 Est Glomerular Filtrat > 60 Rate mL/min Glucose Level 122 Calcium Level 9.8 Magnesium Level 2.2 Test 01/14/19 12:40 Bedside Glucose 186 Exam/Review of Systems Exam Vitals Vital Signs Date Temp Pulse Resp B/P (MAP) Pulse Ox O2 O2 Flow FiO2 Time Delivery Rate 01/14/19 98.4 73 17 92/54 (67) 96 Room Air 14:55 01/13/19 6.0 10:35 Intake and Output 01/13/19 01/13/19 01/14/19 1515:00 23:00 07:00 IntakeIntake Total 630 ml 1020 ml 100 ml OutputOutput Total 860 ml 1925 ml BalanceBalance -230 ml -905 ml 100 ml Exam Constitutional: alert, oriented Respiratory: clear to auscultation Cardiovascular: nl pulses Gastrointestinal: soft, non-tender Extremities: normal pulses, other (Right heel wound) Results Results 24hrs Laboratory Tests Test 01/13/19 17:39 01/13/19 20:39 01/14/19 04:37 01/14/19 08:19 Bedside Glucose 132 152 122 White Blood Count 10.4 # Red Blood Count 4.77 Hemoglobin 14.1 Hematocrit 42.9 Mean Corpuscular Volume 89.9 Mean Corpuscular 29.6 Hemoglobin Mean Corpuscular 32.9 Hemoglobin Concent Red Cell Distribution 14.3 Width Platelet Count 256 Mean Platelet Volume 10.9 H Immature Granulocytes % 0.500 H Neutrophils % 65.3 Lymphocytes % 21.0 Monocytes % 9.1 Eosinophils % 3.7 Basophils % 0.4 Nucleated Red Blood 0.0 Cells % Immature Granulocytes # 0.050 H Neutrophils # 6.8 Lymphocytes # 2.2 Monocytes # 1.0 H Eosinophils # 0.4 Basophils # 0.0 Nucleated Red Blood 0.0 Cells # Sodium Level 139 Potassium Level 5.0 Chloride Level 101 Carbon Dioxide Level 30 Anion Gap 8 Blood Urea Nitrogen 28 H Creatinine 0.68 Est Glomerular Filtrat > 60 Rate mL/min Glucose Level 122 Calcium Level 9.8 Magnesium Level 2.2 Test 01/14/19 12:40 Bedside Glucose 186 Medications Medication Current Medications Amiodarone HCl (Cordarone) 200 mg DAILY PO Last administered on 01/14/19 08:41; Admin Dose 200 MG; Start 01/10/19 at 09:00 Clopidogrel Bisulfate (plaVIX) 75 mg DAILY PO Last administered on 01/14/19 08:41; Admin Dose 75 MG; Start 01/10/19 at 09:00 Digoxin (Digoxin) 0.125 mg DAILY@1300 PO Last administered on 01/14/19 14:25; Admin Dose 0.125 MG; Start 01/10/19 at 13:00 Gabapentin (Neurontin) 600 mg DAILY PO Last administered on 01/12/19 09:34; Admin Dose 600 MG; Start 01/10/19 at 09:00 Empaglifozin (Jardiance) 25 mg DAILY PO Last administered on 01/14/19 08:41; Admin Dose 25 MG; Start 01/10/19 at 09:00 Linagliptin (Tradjenta) 5 mg DAILY PO Last administered on 01/14/19 08:50; Admin Dose 5 MG; Start 01/10/19 at 09:00 Diagnostic Test (Pha) (Accu-Chek) 1 ea AC MEALS AND BEDTIME XX Last administered on 01/14/19 11:30; Admin Dose 1 EA; Start 01/09/19 at 21:00 Acetaminophen (Tylenol Tab) 650 mg Q4H PRN PO MILD PAIN(1-3)OR ELEVATED TEMP; Start 01/09/19 at 20:30 Acetaminophen/ Hydrocodone Bitart ([place] (5/325)) 1 tab Q4H PRN PO MODERATE PAIN LEVEL 4-6 Last administered on 01/13/19 20:36; Admin Dose 1 TAB; Start 01/09/19 at 20:30 Ondansetron HCl (Zofran Inj) 4 mg Q6H PRN IV NAUSEA AND/OR VOMITING; Start 01/09/19 at 20:30 Diagnostic Test (Pha) (Accu-Chek) 1 ea 02 XX ; Start 01/10/19 at 02:00 Insulin Aspart (Novolog Insulin Pen) NOVOLOG *MILD* ALGORITHM WITH MEALS BEDTIME SC Last administered on 01/14/19 12:42; Admin Dose 1 UNIT; Start 01/09/19 at 22:30 Miscellaneous Information 1 ea NOTE XX ; Start 01/09/19 at 21:30 Glucose (Glutose) 15 gm Q15M PRN PO DECREASED GLUCOSE; Start 01/09/19 at 21:30 Glucose (Glutose) 22.5 gm Q15M PRN PO DECREASED GLUCOSE; Start 01/09/19 at 21:30 Dextrose (D50w Syringe) 25 ml Q15M PRN IV DECREASED GLUCOSE; Start 01/09/19 at 21:30 Dextrose (D50w Syringe) 50 ml Q15M PRN IV DECREASED GLUCOSE; Start 01/09/19 at 21:30 Glucagon (Glucagen) 1 mg Q15M PRN IM DECREASED GLUCOSE; Start 01/09/19 at 21:30 Glucose (Glutose) 15 gm Q15M PRN BUCCAL DECREASED GLUCOSE; Start 01/09/19 at 21:30 Insulin Glargine (Lantus) 18 units QHS SC Last administered on 01/13/19 20:43; Admin Dose 18 UNITS; Start 01/09/19 at 22:30 Carvedilol (Coreg) 3.125 mg BID PO Last administered on 01/14/19 08:50; Admin Dose 3.125 MG; Start 01/10/19 at 21:00 Morphine Sulfate (morphine) 4 mg Q4H PRN IV SEVERE PAIN LEVEL 7-10 Last administered on 01/14/19 16:44; Admin Dose 4 MG; Start 01/11/19 at 00:00 Vancomycin HCl (Vanco Iv Per Pharmacy) VANCOMYCIN PER PHARMACY PER PROTOCOL XX ; Start 01/11/19 at 02:30 Vancomycin HCl 1.5 gm/Sodium Chloride 250 ml @ 83.333 mls/ hr Q12H IVPB Last administered on 01/14/19 16:53; Admin Dose 83.333 MLS/HR; Start 01/11/19 at 16:00 Meropenem/Sodium Chloride 50 ml @ 100 mls/hr Q8 IVPB Last administered on 01/14/19 14:15; Admin Dose 100 MLS/HR; Start 01/11/19 at 19:30 Lisinopril (Zestril) 2.5 mg DAILY PO Last administered on 01/14/19 08:41; Admin Dose 2.5 MG; Start 01/13/19 at 09:00 Clindamycin HCl/ Dextrose 50 ml @ 50 mls/hr Q8 IVPB Last administered on 01/14/19 15:54; Admin Dose 50 MLS/HR; Start 01/12/19 at 22:00 Senna (Senokot) 1 tab DAILY PRN PO CONSTIPATION Last administered on 01/14/19 16:52; Admin Dose 1 TAB; Start 01/12/19 at 18:30 Docusate Sodium (Colace) 100 mg BID PRN PO CONSTIPATION Last administered on 01/14/19 16:52; Admin Dose 100 MG; Start 01/12/19 at 18:30 Neomycin/ Polymyxin/ Bacitracin (Neosporin Topical Oint) 1 applic DAILY TOP Last administered on 01/14/19 08:42; Admin Dose 1 APPLIC; Start 01/12/19 at 18:30 Enoxaparin Sodium (Lovenox) 30 mg DAILY SC Last administered on 01/14/19 08:48; Admin Dose 30 MG; Start 01/14/19 at 09:00 Acetaminophen/ Hydrocodone Bitart ([place] (10/325)) 1 tab Q4H PRN PO MODERATE PAIN LEVEL 4-6 Last administered on 01/14/19 11:02; Admin Dose 1 TAB; Start 01/13/19 at 21:00 Furosemide (Lasix) 20 mg DAILY PO ; Start 01/15/19 at 09:00 RAMESH SOLORZANO January 14, 2019 17:34
[2019-01-14] MEDS ORDERED: LIDOCAINE 1% (MPF) 5 ML VIAL SC ONE (18:00)
[2019-01-14] MEDS: INSULIN GLARGINE [LANTus] (100 UNITS/ML) SYG SC SCH (21:03)
[2019-01-15] VITALS (66 sets, daily range): BP systolic 58–114; BP diastolic 39–88; PULSE 78–121; RESP 10–29
[2019-01-15] MEDS ORDERED: ACETAMINOPHEN 1000MG/100ML IV 100 ML IVPB ONE
[2019-01-15] MEDS ORDERED: SOD CHLORIDE 0.9% 250 ML IV ONE
[2019-01-15] MEDS ORDERED: PHENYLephrine 20MG IN 250 ML 250 ML ONE (01:11)
[2019-01-15] MEDS: PHENYLephrine 20MG IN 250 ML 250 ML IV SCH ×3 (01:15→08:38)
[2019-01-15] MEDS: ACCU-CHEK XX SCH ×5 (02:00→20:56)
[2019-01-15] MEDS: VANCOMYCIN HCL 1.5 GM in SOD CHLORIDE 0.9% 250 ML IVPB SCH ×2 (04:07→17:09)
[2019-01-15] MEDS: MEROPENEM 1 GM/50ML(PMX) 50 ML IVPB SCH ×3 (05:09→21:36)
[2019-01-15] MEDS: GABAPENTIN 300 MG CAP PO SCH ×2 (08:01→08:14)
[2019-01-15] MEDS: EMPAGLIFLOZIN 10 MG TABLET PO SCH (08:01)
[2019-01-15] MEDS: CLOPIDOGREL 75 MG TAB PO SCH (08:01)
[2019-01-15] MEDS: LINAGLIPTIN 5 MG TABLET PO SCH (08:01)
[2019-01-15] MEDS: ENOXAPARIN 30 MG/0.3 ML SYG SC SCH (08:03)
[2019-01-15] MEDS: FUROSEMIDE 20 MG TAB PO SCH (08:05)
[2019-01-15] MEDS: CLINDAMYCIN 900 MG/D5W (PMX) 50 ML IVPB SCH ×3 (08:05→21:20)
[2019-01-15] MEDS: LISINOPRIL 5 MG TAB PO SCH (08:22)
[2019-01-15] MEDS: HYDROCODONE/APAP (5/325) TAB PO PRN (08:43)
[2019-01-15] MEDS: AMIODARONE 200 MG TAB PO SCH (09:00)
[2019-01-15] MEDS: NEOMYC/POLYMYX/BACIT 30 GM OINT TOP SCH (09:00)
[2019-01-15] MEDS: INSULIN ASPART [NOVOLOG] 3 ML PEN SC SCH ×4 (10:10→21:03)
--- NOTE | 2019-01-15 10:18 | CONS ---
Assessment/Plan Assessment/Plan Hospital Course (Demo Recall) - infections of non-healing ulcer of R heel due to Gram negative bacteria. CT on 01/10/2019 did not show evidence of OM. ESR 26 on 01/09/2019 - chronic wound of R heel, in the past the wound culture grew E. coli - h/o OM of R foot, h/o 6 weeks of IV vancomycin and ceftriaxone in 2018. Pt remembers it was a "Staph infection." - trauma to R knee - CAD - PVD - h/o aortogram, RLE runoff and percutaneous angioplasty of the posterior tibial artery and the anterior tibial artery in 10/2018 - h/o CABG - h/o AICD placement - DM Recommendations: - Check LA - ordered - Consider picc line - Will likely require 4-6 weeks abx - Pending: blood culture x2 (NGTD), 01/13/19 wound culture (prelim GNR) - Continue IV vancomycin (01/11/2019-) - Continue IV meropenem in case of ESBL+bacteria; s/p cefepime and metronidazole; - Continue clindamycin (01/11/2019-); Pt exhibits signs and Sx of progressive inflammation, and we recommend adding clindamycin until streptococcal infections are ruled out-- so far not uncovered. Above plan discussed and coordinated with via [employer]. Consultation Date/Type/Reason Admit Date/Time January 09, 2019 at 18:17 Initial Consult Date 01/10/19 Requesting Provider: KRISTIN PRYOR MD Date/Time of Note DATE: 01/15/19 TIME: 10:10 24 HR Interval Summary Free Text/Dictation Pt was transferred to ICU overnight due to hypotensive episode and tachycardia, started on phenylephrine in ICU per d/w nurse. WBC 10.2, Afebrile 01/13/19 R foot cx preliminary - GNR Detailed Summary Additional Comments Pt expressed frustration of his current health status. Exam/Review of Systems Exam Vitals Vital Signs Date Temp Pulse Resp B/P (MAP) Pulse Ox O2 O2 Flow FiO2 Time Delivery Rate 01/15/19 97.7 86 19 110/62 98 Room Air 09:00 (78) 01/13/19 6.0 10:35 Intake and Output 01/14/19 01/14/19 01/15/19 1515:00 23:00 07:00 IntakeIntake Total 900 ml 1100 ml 971.250 ml OutputOutput Total 625 ml 700 ml BalanceBalance 275 ml 1100 ml 271.250 ml Constitutional: alert, oriented, well developed, obese Psych: other (crying expressed frustration) Head: normocephalic, atraumatic Eyes: EOMI, PERRL ENMT: mucosa pink and moist Neck: supple Respiratory: clear to auscultation; No congested cough, No crackles/rales Cardiovascular: other (S.tachy); No bruits, No edema, No irregular rhythm, No murmurs/extra sounds Gastrointestinal: bowel sounds, other (obese); No distended Extremities: No cyanosis, No clubbing, No edema 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: nl mental status, nl speech, nl strength; No numbness Skin: other (R foot non healing ulcer wrapped with bandage ) Results Result Diagram: 01/15/19 0907 01/15/19 0500 Results 24hrs Laboratory Tests Test 01/14/19 12:40 01/14/19 17:56 01/14/19 20:53 01/14/19 23:28 Bedside Glucose 186 159 169 152 Test 01/15/19 02:08 01/15/19 05:00 01/15/19 07:53 01/15/19 09:07 Bedside Glucose 151 169 White Blood Count 11.7 H 10.2 Red Blood Count 3.11 #L 2.74 L Hemoglobin 9.2 #L 8.3 L Hematocrit 28.7 #L 25.3 L Mean Corpuscular Volume 92.3 92.3 Mean Corpuscular 29.6 30.3 Hemoglobin Mean Corpuscular 32.1 32.8 Hemoglobin Concent Red Cell Distribution 14.2 14.5 Width Platelet Count 254 226 Mean Platelet Volume 11.4 H 10.2 Immature Granulocytes % 1.000 H 0.700 H Neutrophils % 72.2 69.9 Lymphocytes % 19.8 21.5 Monocytes % 6.4 7.4 Eosinophils % 0.3 0.3 Basophils % 0.3 0.2 Nucleated Red Blood 0.0 0.0 Cells % Immature Granulocytes # 0.120 H 0.070 H Neutrophils # 8.4 H 7.1 Lymphocytes # 2.3 2.2 Monocytes # 0.8 0.8 Eosinophils # 0.0 0.0 Basophils # 0.0 0.0 Nucleated Red Blood 0.0 0.0 Cells # Sodium Level 140 Potassium Level 5.4 H Chloride Level 108 Carbon Dioxide Level 24 Anion Gap 8 Blood Urea Nitrogen 67 #H Creatinine 0.84 Est Glomerular Filtrat > 60 Rate mL/min Glucose Level 159 Calcium Level 8.7 Magnesium Level 2.2 Imaging Imaging [place] [id number] Radiology Main Line: [phone] DIAGNOSTIC IMAGING REPORT Patient: SHANELL STEVENSON : 1955 Age: 63 Sex: M MR #: [id number] DOS: 01/15/19 0120 Ordering MD: DAVID NEGRETE MD Location: ICU Room/Bed: [facility] PROCEDURE: Portable chest x-ray. CLINICAL INDICATION: 63 years of age, male. Central line placement TECHNIQUE: Portable AP view of the chest. COMPARISON: None available. FINDINGS: Medical devices: There is a right subclavian central venous line with the tip over the superior right atrium. There is a left subclavian dual chamber pacemaker / AICD with leads in the right atrium and right ventricle. Mediastinum: Sternal wires from previous surgery. Atherosclerotic calcification of the thoracic aorta. Normal heart size. Lungs: Lungs are clear. Pleura: Negative for pleural effusion or pneumothorax. Bones: No acute bony abnormality. Additional comment: None. IMPRESSION: 1. Right subclavian central venous line tip is over the superior right atrium. The line could be pulled back 2 cm to the inferior SVC. Negative for a postprocedure pneumothorax. 2. Left subclavian pacemaker / AICD and postsurgical changes with sternal wires. RPTAT: HCTS Medications Medication Current Medications Amiodarone HCl (Cordarone) 200 mg DAILY PO Last administered on 01/14/19at 08:41; Admin Dose 200 MG; Start 01/10/19 at 09:00 Clopidogrel Bisulfate (plaVIX) 75 mg DAILY PO Last administered on 01/15/19at 08:01; Admin Dose 75 MG; Start 01/10/19 at 09:00 Digoxin (Digoxin) 0.125 mg DAILY@1300 PO Last administered on 01/14/19 14:25; Admin Dose 0.125 MG; Start 01/10/19 at 13:00 Gabapentin (Neurontin) 600 mg DAILY PO Last administered on 01/12/19 09:34; Admin Dose 600 MG; Start 01/10/19 at 09:00 Empaglifozin (Jardiance) 25 mg DAILY PO Last administered on 01/15/19 08:01; Admin Dose 25 MG; Start 01/10/19 at 09:00 Linagliptin (Tradjenta) 5 mg DAILY PO Last administered on 01/15/19 08:01; Admin Dose 5 MG; Start 01/10/19 at 09:00 Diagnostic Test (Pha) (Accu-Chek) 1 ea AC MEALS AND BEDTIME XX Last administered on 01/15/19 06:59; Admin Dose 1 EA; Start 01/09/19 at 21:00 Acetaminophen (Tylenol Tab) 650 mg Q4H PRN PO MILD PAIN(1-3)OR ELEVATED TEMP; Start 01/09/19 at 20:30 Acetaminophen/ Hydrocodone Bitart ([place] (5/325)) 1 tab Q4H PRN PO MODERATE PAIN LEVEL 4-6 Last administered on 01/15/19 08:43; Admin Dose 1 TAB; Start 01/09/19 at 20:30 Ondansetron HCl (Zofran Inj) 4 mg Q6H PRN IV NAUSEA AND/OR VOMITING Last administered on 01/14/19 19:59; Admin Dose 4 MG; Start 01/09/19 at 20:30 Diagnostic Test (Pha) (Accu-Chek) 1 ea 02 XX ; Start 01/10/19 at 02:00 Insulin Aspart (Novolog Insulin Pen) NOVOLOG *MILD* ALGORITHM WITH MEALS BEDTIME SC Last administered on 01/14/19 17:59; Admin Dose 1 UNIT; Start 01/09/19 at 22:30 Miscellaneous Information 1 ea NOTE XX ; Start 01/09/19 at 21:30 Glucose (Glutose) 15 gm Q15M PRN PO DECREASED GLUCOSE; Start 01/09/19 at 21:30 Glucose (Glutose) 22.5 gm Q15M PRN PO DECREASED GLUCOSE; Start 01/09/19 at 21:30 Dextrose (D50w Syringe) 25 ml Q15M PRN IV DECREASED GLUCOSE; Start 01/09/19 at 21:30 Dextrose (D50w Syringe) 50 ml Q15M PRN IV DECREASED GLUCOSE; Start 01/09/19 at 21:30 Glucagon (Glucagen) 1 mg Q15M PRN IM DECREASED GLUCOSE; Start 01/09/19 at 21:30 Glucose (Glutose) 15 gm Q15M PRN BUCCAL DECREASED GLUCOSE; Start 01/09/19 at 21:30 Insulin Glargine (Lantus) 18 units QHS SC Last administered on 01/14/19 21:03; Admin Dose 18 UNITS; Start 01/09/19 at 22:30 Carvedilol (Coreg) 3.125 mg BID PO Last administered on 01/14/19 08:50; Admin Dose 3.125 MG; Start 01/10/19 at 21:00 Vancomycin HCl (Vanco Iv Per Pharmacy) VANCOMYCIN PER PHARMACY PER PROTOCOL XX ; Start 01/11/19 at 02:30 Vancomycin HCl 1.5 gm/Sodium Chloride 250 ml @ 83.333 mls/ hr Q12H IVPB Last administered on 01/15/19 04:07; Admin Dose 83.333 MLS/HR; Start 01/11/19 at 16:00 Meropenem/Sodium Chloride 50 ml @ 100 mls/hr Q8 IVPB Last administered on 01/15/19 05:09; Admin Dose 100 MLS/HR; Start 01/11/19 at 19:30 Lisinopril (Zestril) 2.5 mg DAILY PO Last administered on 01/14/19 08:41; Admin Dose 2.5 MG; Start 01/13/19 at 09:00 Clindamycin HCl/ Dextrose 50 ml @ 50 mls/hr Q8 IVPB Last administered on 01/15/19 08:05; Admin Dose 50 MLS/HR; Start 01/12/19 at 22:00 Senna (Senokot) 1 tab DAILY PRN PO CONSTIPATION Last administered on 01/14/19 16:52; Admin Dose 1 TAB; Start 01/12/19 at 18:30 Docusate Sodium (Colace) 100 mg BID PRN PO CONSTIPATION Last administered on 01/14/19 16:52; Admin Dose 100 MG; Start 01/12/19 at 18:30 Neomycin/ Polymyxin/ Bacitracin (Neosporin Topical Oint) 1 applic DAILY TOP Last administered on 01/14/19 08:42; Admin Dose 1 APPLIC; Start 01/12/19 at 18:30 Enoxaparin Sodium (Lovenox) 30 mg DAILY SC Last administered on 01/15/19 08:03; Admin Dose 30 MG; Start 01/14/19 at 09:00 Acetaminophen/ Hydrocodone Bitart ([place] (10/325)) 1 tab Q4H PRN PO MODERATE PAIN LEVEL 4-6 Last administered on 01/14/19 11:02; Admin Dose 1 TAB; Start 01/13/19 at 21:00 Furosemide (Lasix) 20 mg DAILY PO Last administered on 01/15/19 08:05; Admin Dose 20 MG; Start 01/15/19 at 09:00 Phenylephrine HCl 250 ml @ 75 mls/hr TITRATE IV Last administered on 01/15/19 08:38; Admin Dose 56.25 MLS/HR; Start 01/15/19 at 01:30 BLANCO MAR NP January 15, 2019 10:18
--- NOTE | 2019-01-15 11:51 | PN ---
Date/Time of Note Date/Time of Note DATE: 01/15/19 TIME: 11:39 Assessment/Plan VTE Prophylaxis Risk score (from Ns)>0 risk: 4 SCD applied (from Nsg): Yes Pharmacological prophylaxis: LMWH Lines/Catheters IV Catheter Type (from Nrsg): Central Line Central line still needed: Yes Urinary Cath still in place: No Assessment/Plan Hospital Course Patient became hypotensive and tachycardic overnight, ASSISTANT PASTRY CHEF was called, patient did not respond to IV fluid bolus and was transferred to intensive care unit and started on pressor. Patient is currently is awake, alert denies any chest pain, denies shortness of breath. Noted hemoglobin dropped from 14 yesterday to 9.2 today in the morning, continue to monitor H&H, will obtain stool for OB. Patient is currently on Phenylephrne for BP support. Continue ICU care, obtain troponin q. 8 hours x 3. Assessment/Plan -Hypotension requiring pressors and ICU monitoring. -Hyperkalemia, administer Kayexalate. -Drop in hemoglobin, continue to monitor H&H, follow-up on stool for OB. -Right heel necrotic wound. Dr. Mata is following in podiatry consultation. Status post debridement. Continue antibiotics per ID. Dr. Landa is following in infection disease consultation. -Chronic peripheral vascular disease, history of angioplasty x2. Dr. Sheppard is following in vascular surgery consultation. Plan for a right pop DP bypass on Saturday. -Coronary artery disease, status post coronary artery bypass graft. Continue Plavix. -Cardiomyopathy with ejection fraction of 25%. Continue Coreg. Dr. Foster is following in cardiology consultation. -Status post AICD. -Hx of Hypertension. -Diabetes hemoglobin A1c 7.6. Continue Lantus and NovoLog. -Right knee contusion and abrasion status post fall. Status post evaluation by Dr. Zelaya and orthopedic surgery. No signs of fracture or dystrophic dislocation. Further recommendations based on clinical course. Plan of care discussed with Dr. Mann. Result Diagram: 01/15/19 0907 01/15/19 0500 Results 24hrs Laboratory Tests Test 01/14/19 12:40 01/14/19 17:56 01/14/19 20:53 01/14/19 23:28 Bedside Glucose 186 159 169 152 Test 01/15/19 02:08 01/15/19 05:00 01/15/19 07:53 01/15/19 09:07 Bedside Glucose 151 169 White Blood Count 11.7 H 10.2 Red Blood Count 3.11 #L 2.74 L Hemoglobin 9.2 #L 8.3 L Hematocrit 28.7 #L 25.3 L Mean Corpuscular Volume 92.3 92.3 Mean Corpuscular 29.6 30.3 Hemoglobin Mean Corpuscular 32.1 32.8 Hemoglobin Concent Red Cell Distribution 14.2 14.5 Width Platelet Count 254 226 Mean Platelet Volume 11.4 H 10.2 Immature Granulocytes % 1.000 H 0.700 H Neutrophils % 72.2 69.9 Lymphocytes % 19.8 21.5 Monocytes % 6.4 7.4 Eosinophils % 0.3 0.3 Basophils % 0.3 0.2 Nucleated Red Blood 0.0 0.0 Cells % Immature Granulocytes # 0.120 H 0.070 H Neutrophils # 8.4 H 7.1 Lymphocytes # 2.3 2.2 Monocytes # 0.8 0.8 Eosinophils # 0.0 0.0 Basophils # 0.0 0.0 Nucleated Red Blood 0.0 0.0 Cells # Sodium Level 140 Potassium Level 5.4 H Chloride Level 108 Carbon Dioxide Level 24 Anion Gap 8 Blood Urea Nitrogen 67 #H Creatinine 0.84 Est Glomerular Filtrat > 60 Rate mL/min Glucose Level 159 Calcium Level 8.7 Magnesium Level 2.2 Exam/Review of Systems Exam Vitals Vital Signs Date Temp Pulse Resp B/P (MAP) Pulse Ox O2 O2 Flow FiO2 Time Delivery Rate 01/15/19 97.7 86 19 110/62 98 Room Air 09:00 (78) 01/13/19 6.0 10:35 Intake and Output 01/14/19 01/14/19 01/15/19 1515:00 23:00 07:00 IntakeIntake Total 900 ml 1100 ml 971.250 ml OutputOutput Total 625 ml 700 ml BalanceBalance 275 ml 1100 ml 271.250 ml Exam Constitutional: alert, oriented Respiratory: clear to auscultation Cardiovascular: Regular rhythm and rate, AICD Gastrointestinal: soft, non-tender Extremities: normal pulses, other (Right heel wound) Right chest triple lumen catheter Results Results 24hrs Laboratory Tests Test 01/14/19 12:40 01/14/19 17:56 01/14/19 20:53 01/14/19 23:28 Bedside Glucose 186 159 169 152 Test 01/15/19 02:08 01/15/19 05:00 01/15/19 07:53 01/15/19 09:07 Bedside Glucose 151 169 White Blood Count 11.7 H 10.2 Red Blood Count 3.11 #L 2.74 L Hemoglobin 9.2 #L 8.3 L Hematocrit 28.7 #L 25.3 L Mean Corpuscular Volume 92.3 92.3 Mean Corpuscular 29.6 30.3 Hemoglobin Mean Corpuscular 32.1 32.8 Hemoglobin Concent Red Cell Distribution 14.2 14.5 Width Platelet Count 254 226 Mean Platelet Volume 11.4 H 10.2 Immature Granulocytes % 1.000 H 0.700 H Neutrophils % 72.2 69.9 Lymphocytes % 19.8 21.5 Monocytes % 6.4 7.4 Eosinophils % 0.3 0.3 Basophils % 0.3 0.2 Nucleated Red Blood 0.0 0.0 Cells % Immature Granulocytes # 0.120 H 0.070 H Neutrophils # 8.4 H 7.1 Lymphocytes # 2.3 2.2 Monocytes # 0.8 0.8 Eosinophils # 0.0 0.0 Basophils # 0.0 0.0 Nucleated Red Blood 0.0 0.0 Cells # Sodium Level 140 Potassium Level 5.4 H Chloride Level 108 Carbon Dioxide Level 24 Anion Gap 8 Blood Urea Nitrogen 67 #H Creatinine 0.84 Est Glomerular Filtrat > 60 Rate mL/min Glucose Level 159 Calcium Level 8.7 Magnesium Level 2.2 Medications Medication Current Medications Amiodarone HCl (Cordarone) 200 mg DAILY PO Last administered on 01/14/19at 08:41; Admin Dose 200 MG; Start 01/10/19 at 09:00 Clopidogrel Bisulfate (plaVIX) 75 mg DAILY PO Last administered on 01/15/19at 0 8:01; Admin Dose 75 MG; Start 01/10/19 at 09:00 Digoxin (Digoxin) 0.125 mg DAILY@1300 PO Last administered on 01/14/19at 14:25; Admin Dose 0.125 MG; Start 01/10/19 at 13:00 Gabapentin (Neurontin) 600 mg DAILY PO Last administered on 01/12/19 09:34; Admin Dose 600 MG; Start 01/10/19 at 09:00 Empaglifozin (Jardiance) 25 mg DAILY PO Last administered on 01/15/19 08:01; Admin Dose 25 MG; Start 01/10/19 at 09:00 Linagliptin (Tradjenta) 5 mg DAILY PO Last administered on 01/15/19 08:01; Admin Dose 5 MG; Start 01/10/19 at 09:00 Diagnostic Test (Pha) (Accu-Chek) 1 ea AC MEALS AND BEDTIME XX Last admini stered on 01/15/19 06:59; Admin Dose 1 EA; Start 01/09/19 at 21:00 Acetaminophen (Tylenol Tab) 650 mg Q4H PRN PO MILD PAIN(1-3)OR ELEVATED TEMP; Start 01/09/19 at 20:30 Acetaminophen/ Hydrocodone Bitart ([place] (5/325)) 1 tab Q4H PRN PO MODERATE PAIN LEVEL 4-6 Last administered on 01/15/19 08:43; Admin Dose 1 TAB; Start 01/09/19 at 20:30 Ondansetron HCl (Zofran Inj) 4 mg Q6H PRN IV NAUSEA AND/OR VOMITING Last administered on 01/14/19 19:59; Admin Dose 4 MG; Start 01/09/19 at 20:30 Diagnostic Test (Pha) (Accu-Chek) 1 ea 02 XX ; Start 01/10/19 at 02:00 Insulin Aspart (Novolog Insulin Pen) NOVOLOG *MILD* ALGORITHM WITH MEALS BEDTIME SC Last administered on 01/14/19 17:59; Admin Dose 1 UNIT; Start 01/09/19 at 22:30 Miscellaneous Information 1 ea NOTE XX ; Start 01/09/19 at 21:30 Glucose (Glutose) 15 gm Q15M PRN PO DECREASED GLUCOSE; Start 01/09/19 at 21:30 Glucose (Glutose) 22.5 gm Q15M PRN PO DECREASED GLUCOSE; Start 01/09/19 at 21:30 Dextrose (D50w Syringe) 25 ml Q15M PRN IV DECREASED GLUCOSE; Start 01/09/19 at 21:30 Dextrose (D50w Syringe) 50 ml Q15M PRN IV DECREASED GLUCOSE; Start 01/09/19 at 21:30 Glucagon (Glucagen) 1 mg Q15M PRN IM DECREASED GLUCOSE; Start 01/09/19 at 21:30 Glucose (Glutose) 15 gm Q15M PRN BUCCAL DECREASED GLUCOSE; Start 01/09/19 at 21:30 Insulin Glargine (Lantus) 18 units QHS SC Last administered on 01/14/19 21:03; Admin Dose 18 UNITS; Start 01/09/19 at 22:30 Carvedilol (Coreg) 3.125 mg BID PO Last administered on 01/14/19 08:50; Admin Dose 3.125 MG; Start 01/10/19 at 21:00 Vancomycin HCl (Vanco Iv Per Pharmacy) VANCOMYCIN PER PHARMACY PER PROTOCOL XX ; Start 01/11/19 at 02:30 Vancomycin HCl 1.5 gm/Sodium Chloride 250 ml @ 83.333 mls/ hr Q12H IVPB Last administered on 01/15/19 04:07; Admin Dose 83.333 MLS/HR; Start 01/11/19 at 16:00 Meropenem/Sodium Chloride 50 ml @ 100 mls/hr Q8 IVPB Last administered on 01/15/19 05:09; Admin Dose 100 MLS/HR; Start 01/11/19 at 19:30 Lisinopril (Zestril) 2.5 mg DAILY PO Last administered on 01/14/19 08:41; Admin Dose 2.5 MG; Start 01/13/19 at 09:00 Clindamycin HCl/ Dextrose 50 ml @ 50 mls/hr Q8 IVPB Last administered on 01/15/19 08:05; Admin Dose 50 MLS/HR; Start 01/12/19 at 22:00 Senna (Senokot) 1 tab DAILY PRN PO CONSTIPATION Last administered on 01/14/19 16:52; Admin Dose 1 TAB; Start 01/12/19 at 18:30 Docusate Sodium (Colace) 100 mg BID PRN PO CONSTIPATION Last administered on 01/14/19 16:52; Admin Dose 100 MG; Start 01/12/19 at 18:30 Neomycin/ Polymyxin/ Bacitracin (Neosporin Topical Oint) 1 applic DAILY TOP Last administered on 01/15/19 09:00; Admin Dose 1 APPLIC; Start 01/12/19 at 18:30 Enoxaparin Sodium (Lovenox) 30 mg DAILY SC Last administered on 01/15/19 08:03; Admin Dose 30 MG; Start 01/14/19 at 09:00 Acetaminophen/ Hydrocodone Bitart ([place] (10/325)) 1 tab Q4H PRN PO MODERATE PAIN LEVEL 4-6 Last administered on 01/14/19 11:02; Admin Dose 1 TAB; Start 01/13/19 at 21:00 Furosemide (Lasix) 20 mg DAILY PO Last administered on 01/15/19 08:05; Admin Dose 20 MG; Start 01/15/19 at 09:00 Phenylephrine HCl 250 ml @ 75 mls/hr TITRATE IV Last administered on 01/15/19 08:38; Admin Dose 56.25 MLS/HR; Start 01/15/19 at 01:30 RAMESH SOLORZANO January 15, 2019 11:49
[2019-01-15] MEDS ORDERED: NA POLYST SULFON 15 GM/60 ML BTL PO ONE (12:00)
[2019-01-15] MEDS: DIGOXIN 0.125 MG TAB PO SCH (12:29)
[2019-01-15] MEDS: HYDROCODONE/APAP (10/325) TAB PO PRN ×2 (14:43→21:26)
--- NOTE | 2019-01-15 14:43 | PN ---
Date/Time of Note Date/Time of Note DATE: 01/15/19 TIME: 14:36 Assessment/Plan Lines/Catheters IV C[facility]ter Type (from [facility] Central Line Avelar in Place (from Nrs): No Assessment/Plan Assessment/Plan R heel ulcer - was scheduled for bypass tomorrow but he is now having either a cardiac event or ? GI bleed Bypass is canceled and will be rescheduled once he has stabilized Serial Hg being checked Subjective 24 Hr Interval Summary Transferred to ICU overnight b/c hypotension and tachycardia, Hg dropped from 14 to 8. He has no c/o other than being dizzy. No BM or vomiting. No abdominal or back pain. He has been on pressors but they are now off and BP is 80-100, HR 120's. Exam/Review of Systems Vital Signs Vitals Vital Signs Date Temp Pulse Resp B/P (MAP) Pulse Ox O2 O2 Flow FiO2 Time Delivery Rate 01/15/19 94 25 107/59 99 Room Air 14:00 (75) 01/15/19 98.4 12:00 01/13/19 6.0 10:35 Intake and Output 01/14/19 01/14/19 01/15/19 1515:00 23:00 07:00 IntakeIntake Total 900 ml 1100 ml 971.250 ml OutputOutput Total 625 ml 700 ml BalanceBalance 275 ml 1100 ml 271.250 ml Exam Free Text/Dictation abdomen is soft, nontender R foot wrapped Results Result Diagram: 01/15/19 0907 01/15/19 0500 VERO MAHONEY MD January 15, 2019 14:43
--- NOTE | 2019-01-15 16:41 | PREAC ---
Date/Time of Note Date/Time of Note DATE: 01/15/19 TIME: 16:39 Anesthesia Eval and Record Evaluation Time Pre-Procedure Interview DATE: 01/15/19 TIME: 16:39 Age 63 Sex male NPO: 8 hrs Preoperative diagnosis Peripheral vascular disease Planned procedure RIGHT POPLITEAL TO DORSALIS PEDIS VEIN Past Medical History Past Medical History: Includes Cardio: HTN, CAD, CABG, Arrythmia, PPM/AICD, CHF, Other (Peripheral vascular disease) Endo: Diabetes GI: Obesity Surgery & Anesthesia Issues No known issue Meds Anticoagulation: No Beta Tasha within 24 hr: No Reason Beta Tasha not given: Pt. not on B-Tasha Reported Medications Amiodarone Hcl* (Amiodarone Hcl*) 200 Mg Tablet, 200 MG PO DAILY, #30 TAB 01/09/19 Digoxin* (Digitek*) 125 Mcg Tablet, 0.125 MG PO DAILY, TAB 01/09/19 Rivaroxaban* (Xarelto*) 20 Mg Tablet, 20 MG PO WITH DINNER, TAB 01/09/19 Clopidogrel Bisulfate* (Clopidogrel Bisulfate*) 75 Mg Tablet, 75 MG PO DAILY, #30 TAB 01/09/19 Empagliflozin (Jardiance) 25 Mg Tablet, 25 MG PO DAILY, TAB 01/09/19 Insulin Glargine,Hum.rec.anlog (Basaglar Kwikpen U-100) 100 Unit/1 Ml Insuln. pen, 18 UNIT SC QHS, EA 01/09/19 Sulfamethoxazole/Trimethoprim* (Bactrim Ds* Tablet) 1 Each Tablet, 1 TAB PO BID, TAB FOR 10 DAYS,START TAKING 01/06/19 01/09/19 Tapentadol Hcl (Nucynta) 100 Mg Tablet, 100 MG PO BID, TAB 01/09/19 Gabapentin* (Gabapentin*) 600 Mg Tablet, 600 MG PO DAILY, #60 TAB 01/09/19 Metformin Hcl* (Metformin Hcl*) 1,000 Mg Tablet, 1000 MG PO WITH BREAKFAST DINNE, #60 TAB 01/09/19 Discontinued Reported Medications Amiodarone Hcl* (Amiodarone Hcl*) 200 Mg Tablet, 200 MG PO DAILY, #30 TAB 10/31/18 Digoxin* (Digox*) 125 Mcg Tablet, 125 MCG ORAL am 10/31/18 Gabapentin* (Gabapentin*) 600 Mg Tablet, 600 MG PO hs, #60 TAB 10/31/18 Naproxen* (Naproxen*) 500 Mg Tablet, 500 MG PO DAILY, TAB 10/31/18 Rivaroxaban* (Xarelto*) 20 Mg Tablet, 20 MG PO WITH DINNER, TAB 10/31/18 Clopidogrel Bisulfate (Clopidogrel) 75 Mg Tablet, 75 MG PO DAILY, #30 TAB 10/31/18 Tapentadol Hcl (Nucynta) 100 Mg Tablet, 100 MG PO Q4 PRN for PAIN LEVEL 6-10, TAB 10/31/18 Empagliflozin (Jardiance) 25 Mg Tablet, 25 MG PO DAILY, TAB 10/31/18 Insulin Glargine* (Lantus*) 100 Unit/Ml Soln, 20 UNIT SC QHS, #1 VIAL 10/31/18 Metformin* (Glucophage*) 1,000 Mg Tablet, 1000 MG PO WITH BREAKFAST DINNE, #30 TAB 10/31/18 Metformin Hcl* (Metformin Hcl*) 1,000 Mg Tablet, 1000 MG PO WITH BREAKFAST DINNE, #60 TAB 06/09/18 Amiodarone Hcl* (Amiodarone Hcl*) 200 Mg Tablet, 200 MG PO DAILY, #30 TAB 06/09/18 Current Medications Amiodarone HCl (Cordarone) 200 mg DAILY PO Last administered on 01/14/19at 08:41; Admin Dose 200 MG; Start 01/10/19 at 09:00 Clopidogrel Bisulfate (plaVIX) 75 mg DAILY PO Last administered on 01/15/19 08:01; Admin Dose 75 MG; Start 01/10/19 at 09:00 Digoxin (Digoxin) 0.125 mg DAILY@1300 PO Last administered on 01/15/19at 12:29; Admin Dose 0.125 MG; Start 01/10/19 at 13:00 Gabapentin (Neurontin) 600 mg DAILY PO Last administered on 01/12/19 09:34; Admin Dose 600 MG; Start 01/10/19 at 09:00 Empaglifozin (Jardiance) 25 mg DAILY PO Last administered on 01/15/19 08:01; Admin Dose 25 MG; Start 01/10/19 at 09:00 Linagliptin (Tradjenta) 5 mg DAILY PO Last administered on 01/15/19 08:01; Admin Dose 5 MG; Start 01/10/19 at 09:00 Diagnostic Test (Pha) (Accu-Chek) 1 ea AC MEALS AND BEDTIME XX Last administered on 01/15/19at 11:00; Admin Dose 1 EA; Start 01/09/19 at 21:00 Acetaminophen (Tylenol Tab) 650 mg Q4H PRN PO MILD PAIN(1-3)OR ELEVATED TEMP; Start 01/09/19 at 20:30 Acetaminophen/ Hydrocodone Bitart ([place] (5/325)) 1 tab Q4H PRN PO MODERATE PAIN LEVEL 4-6 Last administered on 01/15/19at 08:43; Admin Dose 1 TAB; Start 01/09/19 at 20:30 Ondansetron HCl (Zofran Inj) 4 mg Q6H PRN IV NAUSEA AND/OR VOMITING Last administered on 01/14/19 19:59; Admin Dose 4 MG; Start 01/09/19 at 20:30 Diagnostic Test (Pha) (Accu-Chek) 1 ea 02 XX ; Start 01/10/19 at 02:00 Insulin Aspart (Novolog Insulin Pen) NOVOLOG *MILD* ALGORITHM WITH MEALS BEDTIME SC Last administered on 01/14/19 17:59; Admin Dose 1 UNIT; Start 01/09/19 at 22:30 Miscellaneous Information 1 ea NOTE XX ; Start 01/09/19 at 21:30 Glucose (Glutose) 15 gm Q15M PRN PO DECREASED GLUCOSE; Start 01/09/19 at 21:30 Glucose (Glutose) 22.5 gm Q15M PRN PO DECREASED GLUCOSE; Start 01/09/19 at 21:30 Dextrose (D50w Syringe) 25 ml Q15M PRN IV DECREASED GLUCOSE; Start 01/09/19 at 21:30 Dextrose (D50w Syringe) 50 ml Q15M PRN IV DECREASED GLUCOSE; Start 01/09/19 at 21:30 Glucagon (Glucagen) 1 mg Q15M PRN IM DECREASED GLUCOSE; Start 01/09/19 at 21:30 Glucose (Glutose) 15 gm Q15M PRN BUCCAL DECREASED GLUCOSE; Start 01/09/19 at 21:30 Insulin Glargine (Lantus) 18 units QHS SC Last administered on 01/14/19 21:03; Admin Dose 18 UNITS; Start 01/09/19 at 22:30 Carvedilol (Coreg) 3.125 mg BID PO Last administered on 01/14/19 08:50; Admin Dose 3.125 MG; Start 01/10/19 at 21:00 Vancomycin HCl (Vanco Iv Per Pharmacy) VANCOMYCIN PER PHARMACY PER PROTOCOL XX ; Start 01/11/19 at 02:30 Vancomycin HCl 1.5 gm/Sodium Chloride 250 ml @ 83.333 mls/ hr Q12H IVPB Last administered on 01/15/19 04:07; Admin Dose 83.333 MLS/HR; Start 01/11/19 at 16:00 Meropenem/Sodium Chloride 50 ml @ 100 mls/hr Q8 IVPB Last administered on 01/15/19 14:43; Admin Dose 100 MLS/HR; Start 01/11/19 at 19:30 Lisinopril (Zestril) 2.5 mg DAILY PO Last administered on 01/14/19 08:41; Admin Dose 2.5 MG; Start 01/13/19 at 09:00 Clindamycin HCl/ Dextrose 50 ml @ 50 mls/hr Q8 IVPB Last administered on 01/15/19 13:16; Admin Dose 50 MLS/HR; Start 01/12/19 at 22:00 Senna (Senokot) 1 tab DAILY PRN PO CONSTIPATION Last administered on 01/14/19 16:52; Admin Dose 1 TAB; Start 01/12/19 at 18:30 Docusate Sodium (Colace) 100 mg BID PRN PO CONSTIPATION Last administered on 01/14/19 16:52; Admin Dose 100 MG; Start 01/12/19 at 18:30 Neomycin/ Polymyxin/ Bacitracin (Neosporin Topical Oint) 1 applic DAILY TOP Last administered on 01/15/19 09:00; Admin Dose 1 APPLIC; Start 01/12/19 at 18:30 Enoxaparin Sodium (Lovenox) 30 mg DAILY SC Last administered on 01/15/19 08:03; Admin Dose 30 MG; Start 01/14/19 at 09:00 Acetaminophen/ Hydrocodone Bitart ([place] (10/325)) 1 tab Q4H PRN PO MODERATE PAIN LEVEL 4-6 Last administered on 01/15/19 14:43; Admin Dose 1 TAB; Start 01/13/19 at 21:00 Furosemide (Lasix) 20 mg DAILY PO Last administered on 01/15/19at 08:05; Admin Dose 20 MG; Start 01/15/19 at 09:00 Phenylephrine HCl 250 ml @ 75 mls/hr TITRATE IV Last administered on 01/15/19at 08:38; Admin Dose 56.25 MLS/HR; Start 01/15/19 at 01:30 Miscellaneous Information (*Rx Drug Level Order Reminder*) VANCO TROUGH @ 0,300 ON... 0300 ONCE XX ; Start 01/16/19 at 03:00; Stop 01/16/19 at 03:01 Meds reviewed: Yes Allergies Coded Allergies: No Known Allergy (Unverified , 01/09/19) Allergies Reviewed: Yes Labs/Studies Labs Reviewed: Reviewed by anesthesiologist Result Diagram: 01/15/19 1556 01/15/19 0500 Laboratory Tests 01/15/19 05:00 01/15/19 15:56 test: N/A Studies: ECG, CXR (Negative for pleural effusion or pneumothorax.), 2D Echo (EF 25%) Pre-procedure Exam Last vitals Vital Signs Date Temp Pulse Resp B/P (MAP) Pulse Ox O2 O2 Flow FiO2 Time Delivery Rate 01/15/19 100 16:00 01/15/19 25 107/59 99 Room Air 14:00 (75) 01/15/19 98.4 12:00 01/13/19 6.0 10:35 Airway: Adequate mouth opening Mallampati: Mallampati II Teeth: Normal Lung: Normal Heart: Normal ASA Physical Status ASA physical status: 4 Emergency: None Planned Anesthetic General/MAC: ETT Pre-operative Attestations Prior to commencing anesthesia and surgery, the patient was re-evaluated, there was verification of: *The patient's identity *The results of appropriate recent lab work and preoperative vital signs *The above evaluation not changing prior to induction *Anesthetic plan, risk benefits, alternative and complications discussed with patient/family; questions answered; patient/family understands, accepts and wishes to proceed. MATHEW FORREST January 15, 2019 16:41
--- NOTE | 2019-01-15 17:38 | CONS ---
Assessment/Plan Assessment/Plan Hospital Course (Demo Recall) IMP: 1.Pre-op for peripheral bypass surgery. Lexiscan with no ischemia/+scar EF 28%. Echo EF 25%. OK to proceed to surgery at moderate CV risk 2.Cardiomyopathy with low EF-severely depressed by echo this admit 3.HTN 4.HL 5.Non-healing LE ulcer 6.PAD-severe s/p prior CLIENT CONSULTANT 7.DM Recc: -Transferred to ICU secondary to onset of anemia and subsequent hypotension -Holding Continue coreg/zestril while on pressors -wean pressors as tolerated -Continue amio -Continue plavix -Continue abx's and f/u cx data -Follow volume status clsoely -local wound care -pnding LE bypass if patient stable -transfusr PRBC's as necessary Consultation Date/Type/Reason Admit Date/Time January 09, 2019 at 18:17 Initial Consult Date 01/10/19 Type of Consult Cardiology Reason for Consultation perop/cardiomyopathy Requesting Provider: KRISTIN PRYOR MD Date/Time of Note DATE: 01/15/19 TIME: 17:32 Exam/Review of Systems Vital Signs Vitals Vital Signs Date Temp Pulse Resp B/P (MAP) Pulse Ox O2 O2 Flow FiO2 Time Delivery Rate 01/15/19 108 16 100 17:00 01/15/19 70/48 (55) 16:45 01/15/19 98.7 Room Air 16:00 01/13/19 6.0 10:35 Intake and Output 01/14/19 01/14/19 01/15/19 1515:00 23:00 07:00 IntakeIntake Total 900 ml 1100 ml 971.250 ml OutputOutput Total 625 ml 700 ml BalanceBalance 275 ml 1100 ml 271.250 ml Exam Exam Review of Systems: CONSTITUTIONAL: No fevers, chills. PULMONARY: No sob CARDIOVASCULAR: No chest pain/palpitations GASTROINTESTINAL: No nausea/vomiting. GENITOURINARY: No hematuria/dysuria. MUSCULOSKELETAL: No myagias/arthalgias. PSYCHIATRIC: The patient denies depression. NEUROLOGIC: No weakness Constitutional: alert, oriented Psych: no complaints Head: normocephalic ENMT: mucosa pink and moist Neck: supple, jvd (9 cm water) Respiratory: clear to auscultation Cardiovascular: regular rate and rhythm Gastrointestinal: soft Musculoskeletal: muscle tone (normal) Extremities: edema (trace/B), other (foot covered by cast) Labs Result Diagram: 01/15/19 1556 01/15/19 0500 Results 24hrs Laboratory Tests Test 01/14/19 17:56 01/14/19 20:53 01/14/19 23:28 01/15/19 02:08 Bedside Glucose 159 169 152 151 Test 01/15/19 05:00 01/15/19 07:53 01/15/19 09:07 01/15/19 12:18 White Blood Count 11.7 H 10.2 Red Blood Count 3.11 #L 2.74 L Hemoglobin 9.2 #L 8.3 L Hematocrit 28.7 #L 25.3 L Mean Corpuscular Volume 92.3 92.3 Mean Corpuscular 29.6 30.3 Hemoglobin Mean Corpuscular 32.1 32.8 Hemoglobin Concent Red Cell Distribution 14.2 14.5 Width Platelet Count 254 226 Mean Platelet Volume 11.4 H 10.2 Immature Granulocytes % 1.000 H 0.700 H Neutrophils % 72.2 69.9 Lymphocytes % 19.8 21.5 Monocytes % 6.4 7.4 Eosinophils % 0.3 0.3 Basophils % 0.3 0.2 Nucleated Red Blood 0.0 0.0 Cells % Immature Granulocytes # 0.120 H 0.070 H Neutrophils # 8.4 H 7.1 Lymphocytes # 2.3 2.2 Monocytes # 0.8 0.8 Eosinophils # 0.0 0.0 Basophils # 0.0 0.0 Nucleated Red Blood 0.0 0.0 Cells # Sodium Level 140 Potassium Level 5.4 H Chloride Level 108 Carbon Dioxide Level 24 Anion Gap 8 Blood Urea Nitrogen 67 #H Creatinine 0.84 Est Glomerular Filtrat > 60 Rate mL/min Glucose Level 159 Calcium Level 8.7 Magnesium Level 2.2 Bedside Glucose 169 Lactic Acid Level 0.7 Troponin I 0.014 Test 01/15/19 12:25 01/15/19 15:56 01/15/19 17:10 Bedside Glucose 129 194 White Blood Count 10.7 Red Blood Count 2.68 L Hemoglobin 7.9 L Hematocrit 24.2 L Mean Corpuscular Volume 90.3 Mean Corpuscular 29.5 Hemoglobin Mean Corpuscular 32.6 Hemoglobin Concent Red Cell Distribution 14.6 H Width Platelet Count 210 Mean Platelet Volume 9.8 Immature Granulocytes % 0.900 H Neutrophils % 60.0 Lymphocytes % 27.2 Monocytes % 11.0 Eosinophils % 0.7 Basophils % 0.2 Nucleated Red Blood 0.0 Cells % Immature Granulocytes # 0.100 H Neutrophils # 6.4 Lymphocytes # 2.9 Monocytes # 1.2 H Eosinophils # 0.1 Basophils # 0.0 Nucleated Red Blood 0.0 Cells # Medications Medications Current Medications Amiodarone HCl (Cordarone) 200 mg DAILY PO Last administered on 01/14/19 08:41; Admin Dose 200 MG; Start 01/10/19 at 09:00 Clopidogrel Bisulfate (plaVIX) 75 mg DAILY PO Last administered on 01/15/19 08:01; Admin Dose 75 MG; Start 01/10/19 at 09:00 Digoxin (Digoxin) 0.125 mg DAILY@1300 PO Last administered on 01/15/19 12:29; Admin Dose 0.125 MG; Start 01/10/19 at 13:00 Gabapentin (Neurontin) 600 mg DAILY PO Last administered on 01/12/19 09:34; Admin Dose 600 MG; Start 01/10/19 at 09:00 Empaglifozin (Jardiance) 25 mg DAILY PO Last administered on 01/15/19 08:01; Admin Dose 25 MG; Start 01/10/19 at 09:00 Linagliptin (Tradjenta) 5 mg DAILY PO Last administered on 01/15/19 08:01; Admin Dose 5 MG; Start 01/10/19 at 09:00 Diagnostic Test (Pha) (Accu-Chek) 1 ea AC MEALS AND BEDTIME XX Last administered on 01/15/19 11:00; Admin Dose 1 EA; Start 01/09/19 at 21:00 Acetaminophen (Tylenol Tab) 650 mg Q4H PRN PO MILD PAIN(1-3)OR ELEVATED TEMP; Start 01/09/19 at 20:30 Acetaminophen/ Hydrocodone Bitart ([place] (5/325)) 1 tab Q4H PRN PO MODERATE PAIN LEVEL 4-6 Last administered on 01/15/19 08:43; Admin Dose 1 TAB; Start 01/09/19 at 20:30 Ondansetron HCl (Zofran Inj) 4 mg Q6H PRN IV NAUSEA AND/OR VOMITING Last administered on 01/14/19 19:59; Admin Dose 4 MG; Start 01/09/19 at 20:30 Diagnostic Test (Pha) (Accu-Chek) 1 ea 02 XX ; Start 01/10/19 at 02:00 Insulin Aspart (Novolog Insulin Pen) NOVOLOG *MILD* ALGORITHM WITH MEALS BEDTIME SC Last administered on 01/14/19 17:59; Admin Dose 1 UNIT; Start 01/09/19 at 22:30 Miscellaneous Information 1 ea NOTE XX ; Start 01/09/19 at 21:30 Glucose (Glutose) 15 gm Q15M PRN PO DECREASED GLUCOSE; Start 01/09/19 at 21:30 Glucose (Glutose) 22.5 gm Q15M PRN PO DECREASED GLUCOSE; Start 01/09/19 at 21:30 Dextrose (D50w Syringe) 25 ml Q15M PRN IV DECREASED GLUCOSE; Start 01/09/19 at 21:30 Dextrose (D50w Syringe) 50 ml Q15M PRN IV DECREASED GLUCOSE; Start 01/09/19 at 21:30 Glucagon (Glucagen) 1 mg Q15M PRN IM DECREASED GLUCOSE; Start 01/09/19 at 21:30 Glucose (Glutose) 15 gm Q15M PRN BUCCAL DECREASED GLUCOSE; Start 01/09/19 at 21: 30 Insulin Glargine (Lantus) 18 units QHS SC Last administered on 01/14/19at 21:03; Admin Dose 18 UNITS; Start 01/09/19 at 22:30 Carvedilol (Coreg) 3.125 mg BID PO Last administered on 01/14/19at 08:50; Admin Dose 3.125 MG; Start 01/10/19 at 21:00 Vancomycin HCl (Vanco Iv Per Pharmacy) VANCOMYCIN PER PHARMACY PER PROTOCOL XX ; Start 01/11/19 at 02:30 Vancomycin HCl 1.5 gm/Sodium Chloride 250 ml @ 83.333 mls/ hr Q12H IVPB Last administered on 01/15/19 04:07; Admin Dose 83.333 MLS/HR; Start 01/11/19 at 16:00 Meropenem/Sodium Chloride 50 ml @ 100 mls/hr Q8 IVPB Last administered on 01/15/19at 14:43; Admin Dose 100 MLS/HR; Start 01/11/19 at 19:30 Lisinopril (Zestril) 2.5 mg DAILY PO Last administered on 01/14/19 08:41; Admin Dose 2.5 MG; Start 01/13/19 at 09:00 Clindamycin HCl/ Dextrose 50 ml @ 50 mls/hr Q8 IVPB Last administered on 01/15/19 13:16; Admin Dose 50 MLS/HR; Start 01/12/19 at 22:00 Senna (Senokot) 1 tab DAILY PRN PO CONSTIPATION Last administered on 01/14/19 16:52; Admin Dose 1 TAB; Start 01/12/19 at 18:30 Docusate Sodium (Colace) 100 mg BID PRN PO CONSTIPATION Last administered on 01/14/19 16:52; Admin Dose 100 MG; Start 01/12/19 at 18:30 Neomycin/ Polymyxin/ Bacitracin (Neosporin Topical Oint) 1 applic DAILY TOP Last administered on 01/15/19 09:00; Admin Dose 1 APPLIC; Start 01/12/19 at 18:30 Enoxaparin Sodium (Lovenox) 30 mg DAILY SC Last administered on 01/15/19 08:03; Admin Dose 30 MG; Start 01/14/19 at 09:00 Acetaminophen/ Hydrocodone Bitart ([place] (10/325)) 1 tab Q4H PRN PO MODERATE PAIN LEVEL 4-6 Last administered on 01/15/19 14:43; Admin Dose 1 TAB; Start 01/13/19 at 21:00 Furosemide (Lasix) 20 mg DAILY PO Last administered on 01/15/19 08:05; Admin Dose 20 MG; Start 01/15/19 at 09:00 Phenylephrine HCl 250 ml @ 75 mls/hr TITRATE IV Last administered on 01/15/19 08:38; Admin Dose 56.25 MLS/HR; Start 01/15/19 at 01:30 Miscellaneous Information (*Rx Drug Level Order Reminder*) VANCO TROUGH @ 0,300 ON... 0300 ONCE XX ; Start 01/16/19 at 03:00; Stop 01/16/19 at 03:01 VERO ARELLANO January 15, 2019 17:38
[2019-01-15] MEDS ORDERED: SOD CHLORIDE 0.9% 250 ML IV* ONE (18:27)
--- NOTE | 2019-01-15 20:05 | CONS ---
DATE OF ADMISSION: 01/09/2019 DATE OF CONSULTATION: HISTORY OF PRESENT ILLNESS: The patient is a 63-year-old male with a history of coronary artery dise ase status post coronary artery bypass graft, AICD, hypertension, diabetes mellitus, peripheral vascu lar disease, status post angiogram of the lower extremity and percutaneous angioplasty in 2019. The patient came to the ER with complaints of fever and chills and was found to have a right heel necroti c wound, so was admitted for further management. He is in intensive care unit. GI consult was becker d in for a significant drop in hemoglobin from 13 to 8. The patient was intubated. He denied of any abdominal pain, no nausea, no vomiting, no GI bleeding. His stool is brown in color. He has been o n blood thinner and also Lovenox. He had a 2D echo done which showed EF of 20% to 35%. PAST MEDICAL HISTORY: As described. SOCIAL HISTORY: Used to smoke, quit. No alcohol or recreational drug. ALLERGIES: NONE. FAMILY HISTORY: Nothing contributory. REVIEW OF SYSTEMS: Negative. PHYSICAL EXAMINATION GENERAL: Well-built, nourished, not in distress. VITAL SIGNS: Blood pressure is towards lower side 70/50, heart rate is normal. CARDIOVASCULAR: No murmur, gallop or click. LUNGS: Clear. ABDOMEN: Benign. EXTREMITIES: No edema. CENTRAL NERVOUS SYSTEM: Grossly within normal limits. In the right foot, he has a necrotic ulcer. IMPRESSION: 1. Right heel necrotic wound. 2. Cardiomyopathy with ejection fraction of 20% to 30%. 3. Peripheral vascular disease status post PCI, right lower extremity. 4. Coronary artery disease status post coronary artery bypass graft. 5. Status post automatic implantable cardioverter-defibrillator. 6. Hypertension. 7. Diabetes mellitus. 8. Anemia. Patient has a significant drop in hematocrit. So far, clinically, there is no evidence of obvious GI bleeding. PLAN: Hold off on Lovenox. Monitor for acute GI bleeding. Continue with PPI. Continue all the sup portive care. We will give 1 unit of packed cell RBC. We will also send for stool for occult blood. However, if the hematocrit continues to drop, then will get a CAT scan of the abdomen and pelvis to rule out retroperitoneal bleed in the abdominal cavity. Dictated By: KACI BALBUENA/DEXTER Conf#: [id number] [facility]#: [id number]
[2019-01-15] MEDS: morphine 2 MG INJ IV PRN (20:09)
[2019-01-15] MEDS: INSULIN GLARGINE [LANTus] (100 UNITS/ML) SYG SC SCH (21:21)
[2019-01-16] VITALS (25 sets, daily range): BP systolic 85–133; BP diastolic 37–88; PULSE 68–95; RESP 12–65
[2019-01-16] MEDS: morphine 2 MG INJ IV PRN ×4 (01:08→22:10)
[2019-01-16] MEDS: ACCU-CHEK XX SCH ×5 (01:58→20:47)
[2019-01-16] MEDS: HYDROCODONE/APAP (10/325) TAB PO PRN ×4 (02:57→19:49)
[2019-01-16] MEDS: VANCOMYCIN HCL 1.5 GM in SOD CHLORIDE 0.9% 250 ML IVPB SCH (04:24)
[2019-01-16] MEDS: MEROPENEM 1 GM/50ML(PMX) 50 ML IVPB SCH ×2 (05:06→13:06)
[2019-01-16] MEDS: CLINDAMYCIN 900 MG/D5W (PMX) 50 ML IVPB SCH ×2 (05:48→13:06)
[2019-01-16] MEDS ORDERED: PANTOPRAZOLE 40 MG INJ IV SCH (06:00)
[2019-01-16] MEDS ORDERED: GELATIN SIZE 100 SPONGE ONE (07:35)
[2019-01-16] MEDS ORDERED: THROMBIN (BOVINE) 5,000 UNIT VIAL TP ONE (07:35)
[2019-01-16] MEDS ORDERED: HEPARIN 1000 UNITS/ML 10 ML INJ ONE (07:39)
[2019-01-16] MEDS: INSULIN ASPART [NOVOLOG] 3 ML PEN SC SCH ×4 (07:50→20:46)
[2019-01-16] MEDS: AMIODARONE 200 MG TAB PO SCH (08:47)
[2019-01-16] MEDS: CLOPIDOGREL 75 MG TAB PO SCH (08:47)
[2019-01-16] MEDS: EMPAGLIFLOZIN 10 MG TABLET PO SCH (08:47)
[2019-01-16] MEDS: FUROSEMIDE 20 MG TAB PO SCH (08:48)
[2019-01-16] MEDS: GABAPENTIN 300 MG CAP PO SCH (08:49)
[2019-01-16] MEDS: CYANOCOBALAMIN 1000 MCG INJ IM SCH (08:50)
[2019-01-16] MEDS: ENOXAPARIN 30 MG/0.3 ML SYG SC SCH (08:51)
[2019-01-16] MEDS: LINAGLIPTIN 5 MG TABLET PO SCH (08:58)
[2019-01-16] MEDS: LISINOPRIL 5 MG TAB PO SCH (08:58)
[2019-01-16] MEDS: NEOMYC/POLYMYX/BACIT 30 GM OINT TOP SCH (08:59)
--- NOTE | 2019-01-16 09:16 | CONS ---
Consult Date/Type/Reason Admit Date/Time January 09, 2019 at 18:17 Initial Consult Date 01/10/19 Requesting Provider: KRISTIN PRYOR MD Date/Time of Note DATE: 01/16/19 TIME: 09:12 Subjective No acute events - pt stable - off mariel gtt now - better overall - might go to tele if stable. ROS: No fever, no chills, no nausea, no vomiting, no diarrhea/constipation - improved SOB Objective Vitals Vital Signs Date Temp Pulse Resp B/P (MAP) Pulse Ox O2 O2 Flow FiO2 Time Delivery Rate 01/16/19 78 18 92/65 (74) 100 Room Air 06:00 01/16/19 97.8 04:00 01/13/19 6.0 10:35 Intake and Output 01/15/19 01/15/19 01/16/19 1515:00 23:00 07:00 IntakeIntake Total 1253.75 ml 1510 ml 673.333 ml OutputOutput Total 2000 ml 1850 ml 500 ml BalanceBalance -746.25 ml -340 ml 173.333 ml Exam General: WN/WD/NAD, AOx 3 HEENT: Unicetric/atraumatic/EOMI (follow commands) NECK: JVD elevated, no thyromegaly Lymph: no lymphadenopathy HEART: regular with no S3, II/ systolic murmur at apex, scar from CABG LUNGS: Coarse sounds ABD: soft, NT, ND, +BS : Intact Neuro: non focal SKIN: chronic changes EXT: trace edema, R LE in bandage - warm Results/Medications Result Diagram: 01/16/19 0324 01/16/19 0324 Results 24 hrs Laboratory Tests Test 01/15/19 12:18 01/15/19 12:25 01/15/19 15:56 01/15/19 17:10 Lactic Acid Level 0.7 Troponin I 0.014 Bedside Glucose 129 194 White Blood Count 10.7 Red Blood Count 2.68 L Hemoglobin 7.9 L Hematocrit 24.2 L Mean Corpuscular 90.3 Volume Mean Corpuscular 29.5 Hemoglobin Mean Corpuscular 32.6 Hemoglobin Concen t Red Cell 14.6 H Distribution Width Platelet Count 210 Mean Platelet 9.8 Volume Immature 0.900 H Granulocytes % Neutrophils % 60.0 Lymphocytes % 27.2 Monocytes % 11.0 Eosinophils % 0.7 Basophils % 0.2 Nucleated Red 0.0 Blood Cells % Immature 0.100 H Granulocytes # Neutrophils # 6.4 Lymphocytes # 2.9 Monocytes # 1.2 H Eosinophils # 0.1 Basophils # 0.0 Nucleated Red 0.0 Blood Cells # Test 01/15/19 17:38 01/15/19 20:55 01/15/19 22:52 01/16/19 00:23 Troponin I 0.014 0.014 Bedside Glucose 199 Iron Level 98 Total Iron 251 Binding Capacity Percent Iron 39 Saturation Test 01/16/19 01:57 01/16/19 03:24 01/16/19 04:42 01/16/19 07:01 Bedside Glucose 168 152 White Blood Count 10.2 Red Blood Count 2.57 L Hemoglobin 7.8 L Hematocrit 23.5 L Mean Corpuscular 91.4 Volume Mean Corpuscular 30.4 Hemoglobin Mean Corpuscular 33.2 Hemoglobin Concen t Red Cell 14.6 H Distribution Width Platelet Count 189 Mean Platelet 10.9 H Volume Immature 1.000 H Granulocytes % Neutrophils % 58.5 Lymphocytes % 29.2 Monocytes % 8.9 Eosinophils % 2.2 Basophils % 0.2 Nucleated Red 0.0 Blood Cells % Immature 0.100 H Granulocytes # Neutrophils # 6.0 Lymphocytes # 3.0 H Monocytes # 0.9 Eosinophils # 0.2 Basophils # 0.0 Nucleated Red 0.0 Blood Cells # Absolute 0.100 Reticulocyte Count Percent 3.9 H Reticulocyte Count Sodium Level 140 Potassium Level 3.9 Chloride Level 111 H Carbon Dioxide 24 Level Anion Gap 5 Blood Urea 39 #H Nitrogen Creatinine 0.58 L Est Glomerular > 60 Filtrat Rate mL/min Glucose Level 133 Calcium Level 8.3 L Magnesium Level 2.3 Total Bilirubin 0.4 Direct Bilirubin 0.00 Indirect 0.4 Bilirubin Aspartate Amino 21 Transf (AST/SGOT) Alanine 29 Aminotransferase (ALT/SGPT) Alkaline 60 Phosphatase Total Protein 5.4 L Albumin 2.9 L Globulin 2.50 Albumin/Globulin 1.16 Ratio Vancomycin Level 14.5 Trough Lab Scanned BLOOD TRANSFUSIO Report N Home Meds Reported Medications Amiodarone Hcl* (Amiodarone Hcl*) 200 Mg Tablet, 200 MG PO DAILY, #30 TAB 01/09/19 Digoxin* (Digitek*) 125 Mcg Tablet, 0.125 MG PO DAILY, TAB 01/09/19 Rivaroxaban* (Xarelto*) 20 Mg Tablet, 20 MG PO WITH DINNER, TAB 01/09/19 Clopidogrel Bisulfate* (Clopidogrel Bisulfate*) 75 Mg Tablet, 75 MG PO DAILY, #30 TAB 01/09/19 Empagliflozin (Jardiance) 25 Mg Tablet, 25 MG PO DAILY, TAB 01/09/19 Insulin Glargine,Hum.rec.anlog (Basaglar Kwikpen U-100) 100 Unit/1 Ml Insuln.pen, 18 UNIT SC QHS, EA 01/09/19 Sulfamethoxazole/Trimethoprim* (Bactrim Ds* Tablet) 1 Each Tablet, 1 TAB PO BID, TAB FOR 10 DAYS,START TAKING 01/06/19 01/09/19 Tapentadol Hcl (Nucynta) 100 Mg Tablet, 100 MG PO BID, TAB 01/09/19 Gabapentin* (Gabapentin*) 600 Mg Tablet, 600 MG PO DAILY, #60 TAB 01/09/19 Metformin Hcl* (Metformin Hcl*) 1,000 Mg Tablet, 1000 MG PO WITH BREAKFAST DINNE, #60 TAB 01/09/19 Discontinued Reported Medications Amiodarone Hcl* (Amiodarone Hcl*) 200 Mg Tablet, 200 MG PO DAILY, #30 TAB 10/31/18 Digoxin* (Digox*) 125 Mcg Tablet, 125 MCG ORAL am 10/31/18 Gabapentin* (Gabapentin*) 600 Mg Tablet, 600 MG PO hs, #60 TAB 10/31/18 Naproxen* (Naproxen*) 500 Mg Tablet, 500 MG PO DAILY, TAB 10/31/18 Rivaroxaban* (Xarelto*) 20 Mg Tablet, 20 MG PO WITH DINNER, TAB 10/31/18 Clopidogrel Bisulfate (Clopidogrel) 75 Mg Tablet, 75 MG PO DAILY, #30 TAB 10/31/18 Tapentadol Hcl (Nucynta) 100 Mg Tablet, 100 MG PO Q4 PRN for PAIN LEVEL 6-10, TAB 10/31/18 Empagliflozin (Jardiance) 25 Mg Tablet, 25 MG PO DAILY, TAB 10/31/18 Insulin Glargine* (Lantus*) 100 Unit/Ml Soln, 20 UNIT SC QHS, #1 VIAL 10/31/18 Metformin* (Glucophage*) 1,000 Mg Tablet, 1000 MG PO WITH BREAKFAST DINNE, #30 TAB 10/31/18 Metformin Hcl* (Metformin Hcl*) 1,000 Mg Tablet, 1000 MG PO WITH BREAKFAST DINNE, #60 TAB 06/09/18 Amiodarone Hcl* (Amiodarone Hcl*) 200 Mg Tablet, 200 MG PO DAILY, #30 TAB 06/09/18 Medications Current Medications Amiodarone HCl (Cordarone) 200 mg DAILY PO Last administered on 01/16/19 08:47; Admin Dose 200 MG; Start 01/10/19 at 09:00 Clopidogrel Bisulfate (plaVIX) 75 mg DAILY PO Last administered on 01/16/19 08:47; Admin Dose 75 MG; Start 01/10/19 at 09:00 Digoxin (Digoxin) 0.125 mg DAILY@1300 PO Last administered on 01/15/19 12:29; Admin Dose 0.125 MG; Start 01/10/19 at 13:00 Gabapentin (Neurontin) 600 mg DAILY PO Last administered on 01/16/19 08:49; Admin Dose 600 MG; Start 01/10/19 at 09:00 Empaglifozin (Jardiance) 25 mg DAILY PO Last administered on 01/16/19 08:47; Admin Dose 25 MG; Start 01/10/19 at 09:00 Linagliptin (Tradjenta) 5 mg DAILY PO Last administered on 01/16/19 08:58; Admin Dose 5 MG; Start 01/10/19 at 09:00 Diagnostic Test (Pha) (Accu-Chek) 1 ea AC MEALS AND BEDTIME XX Last administered on 01/15/19 17:49; Admin Dose 1 EA; Start 01/09/19 at 21:00 Acetaminophen (Tylenol Tab) 650 mg Q4H PRN PO MILD PAIN(1-3)OR ELEVATED TEMP; Start 01/09/19 at 20:30 Acetaminophen/ Hydrocodone Bitart ([place] (5/325)) 1 tab Q4H PRN PO MODERATE PAIN LEVEL 4-6 Last administered on 01/15/19 08:43; Admin Dose 1 TAB; Start 01/09/19 at 20:30 Ondansetron HCl (Zofran Inj) 4 mg Q6H PRN IV NAUSEA AND/OR VOMITING Last administered on 01/14/19 19:59; Admin Dose 4 MG; Start 01/09/19 at 20:30 Diagnostic Test (Pha) (Accu-Chek) 1 ea 02 XX ; Start 01/10/19 at 02:00 Insulin Aspart (Novolog Insulin Pen) NOVOLOG *MILD* ALGORITHM WITH MEALS BEDTIME SC Last administered on 01/16/19at 07:50; Admin Dose 1 UNIT; Start 01/09/19 at 22:30 Miscellaneous Information 1 ea NOTE XX ; Start 01/09/19 at 21:30 Glucose (Glutose) 15 gm Q15M PRN PO DECREASED GLUCOSE; Start 01/09/19 at 21:30 Glucose (Glutose) 22.5 gm Q15M PRN PO DECREASED GLUCOSE; Start 01/09/19 at 21:30 Dextrose (D50w Syringe) 25 ml Q15M PRN IV DECREASED GLUCOSE; Start 01/09/19 at 21:30 Dextrose (D50w Syringe) 50 ml Q15M PRN IV DECREASED GLUCOSE; Start 01/09/19 at 21:30 Glucagon (Glucagen) 1 mg Q15M PRN IM DECREASED GLUCOSE; Start 01/09/19 at 21:30 Glucose (Glutose) 15 gm Q15M PRN BUCCAL DECREASED GLUCOSE; Start 01/09/19 at 21:30 Insulin Glargine (Lantus) 18 units QHS SC Last administered on 01/15/19at 21:21; Admin Dose 18 UNITS; Start 01/09/19 at 22:30 Carvedilol (Coreg) 3.125 mg BID PO Last administered on 01/16/19at 08:57; Admin Dose 3.125 MG; Start 01/10/19 at 21:00 Vancomycin HCl (Vanco Iv Per Pharmacy) VANCOMYCIN PER PHARMACY PER PROTOCOL XX ; Start 01/11/19 at 02:30 Meropenem/Sodium Chloride 50 ml @ 100 mls/hr Q8 IVPB Last administered on 01/16/19at 05:06; Admin Dose 100 MLS/HR; Start 01/11/19 at 19:30 Lisinopril (Zestril) 2.5 mg DAILY PO Last administered on 01/16/19at 08:58; Admin Dose 2.5 MG; Start 01/13/19 at 09:00 Clindamycin HCl/ Dextrose 50 ml @ 50 mls/hr Q8 IVPB Last administered on 9at 05:48; Admin Dose 50 MLS/HR; Start 01/12/19 at 22:00 Senna (Senokot) 1 tab DAILY PRN PO CONSTIPATION Last administered on 01/14/19 16:52; Admin Dose 1 TAB; Start 01/12/19 at 18:30 Docusate Sodium (Colace) 100 mg BID PRN PO CONSTIPATION Last administered on 01/14/19 16:52; Admin Dose 100 MG; Start 01/12/19 at 18:30 Neomycin/ Polymyxin/ Bacitracin (Neosporin Topical Oint) 1 applic DAILY TOP Last administered on 01/16/19 08:59; Admin Dose 1 APPLIC; Start 01/12/19 at 18:30 Enoxaparin Sodium (Lovenox) 30 mg DAILY SC Last administered on 01/16/19 08:51; Admin Dose 30 MG; Start 01/14/19 at 09:00 Acetaminophen/ Hydrocodone Bitart ([place] (10/325)) 1 tab Q4H PRN PO MODERATE PAIN LEVEL 4-6 Last administered on 01/16/19 09:00; Admin Dose 1 TAB; Start 01/13/19 at 21:00 Furosemide (Lasix) 20 mg DAILY PO Last administered on 01/16/19 08:48; Admin Dose 20 MG; Start 01/15/19 at 09:00 Phenylephrine HCl 250 ml @ 75 mls/hr TITRATE IV Last administered on 01/15/19 08:38; Admin Dose 56.25 MLS/HR; Start 01/15/19 at 01:30 Pantoprazole (Protonix Iv) 40 mg DAILY@06 IV Last administered on 01/16/19 0 5:06; Admin Dose 40 MG; Start 01/16/19 at 06:00 Morphine Sulfate (morphine) 2 mg Q4H PRN IV SEVERE PAIN LEVEL 7-10 Last administered on 01/16/19 06:33; Admin Dose 2 MG; Start 01/15/19 at 20:30 Cyanocobalamin (Vitamin B12 Inj) 1,000 mcg DAILY IM Last administered on 01/16/19 08:50; Admin Dose 1,000 MCG; Start 01/16/19 at 09:00 Vancomycin HCl 1.25 gm/Sodium Chloride 250 ml @ 83.333 mls/ hr Q12H IVPB ; Start 01/16/19 at 16:00 Assessment/Plan Hospital Course (Demo Recall) 1.Pre-op for peripheral bypass surgery. Lexiscan with no ischemia/+scar EF 28%. Echo EF 25%. OK to proceed to surgery at moderate CV risk - stable now 2.Cardiomyopathy with low EF-severely depressed by echo this admit - mild CHF, con't gentle diuresis 3.HTN - well Rx - on therapy now 4.HL 5.Non-healing LE ulcer - in bandage, will follow 6.PAD-severe s/p prior [employer] 7.DM - on meds, keep euglycemic 8. A. Fib - in sinus now, paroxysmal - on amio - off anti-coag with low H/H MIGUEL WADE MD January 16, 2019 09:16
[2019-01-16] MEDS: DIGOXIN 0.125 MG TAB PO SCH (12:53)
--- NOTE | 2019-01-16 12:53 | PN ---
Date/Time of Note Date/Time of Note DATE: 01/16/19 TIME: 12:53 Assessment/Plan VTE Prophylaxis Risk score (from [facility] [place]0 risk: 7 SCD applied (from [facility] [place]): No SCD contraindicated: other Pharmacological prophylaxis: other Lines/Catheters IV Catheter Type (from [facility]): Saline Lock Urinary Cath still in place: No Assessment/Plan Assessment/Plan -Hypotension requiring pressors and ICU monitoring. -Hyperkalemia, sp Kayexalate- RESOLVED -Drop in hemoglobin- SP 1 unit PRBC Hgb 7.8 tday - continue to monitor H&H - stool for OB.- Negative -Right heel necrotic wound. Status post debridement - Dr Black follows in oncology for Anemia - Dr. Mata is following in podiatry consultation. -Continue antibiotics per ID. Dr. Landa is following in infection disease consultation. -Chronic peripheral vascular disease, history of angioplasty x2. Dr. Sheppard is following in vascular surgery consultation. - Plan for a right pop DP bypass today -Coronary artery disease, status post coronary artery bypass graft. -Continue Plavix. -Cardiomyopathy with ejection fraction of 25%. Continue Coreg. -Dr. Foster is following in cardiology consultation. -Status post AICD. -Hx of Hypertension. -Diabetes hemoglobin A1c 7.6. Continue Lantus and NovoLog. -Right knee contusion and abrasion status post fall. - Status post evaluation by Dr. Zelaya and orthopedic surgery. No signs of fracture or dystrophic dislocation. Total critical care time spent 30 mins Further recommendations based on clinical course. Plan of care discussed with Dr. Mann. Result Diagram: 01/16/19 0324 01/16/19 0324 Results 24hrs Laboratory Tests Test 01/15/19 15:56 01/15/19 17:10 01/15/19 17:38 01/15/19 20:55 White Blood Count 10.7 Red Blood Count 2.68 L Hemoglobin 7.9 L Hematocrit 24.2 L Mean Corpuscular 90.3 Volume Mean Corpuscular 29.5 Hemoglobin Mean Corpuscular 32.6 Hemoglobin Concen t Red Cell 14.6 H Distribution Width Platelet Count 210 Mean Platelet 9.8 Volume Immature 0.900 H Granulocytes % Neutrophils % 60.0 Lymphocytes % 27.2 Monocytes % 11.0 Eosinophils % 0.7 Basophils % 0.2 Nucleated Red 0.0 Blood Cells % Immature 0.100 H Granulocytes # Neutrophils # 6.4 Lymphocytes # 2.9 Monocytes # 1.2 H Eosinophils # 0.1 Basophils # 0.0 Nucleated Red 0.0 Blood Cells # Bedside Glucose 194 199 Troponin I 0.014 Test 01/15/19 22:52 01/16/19 00:23 01/16/19 01:57 01/16/19 03:24 Iron Level 98 Total Iron 251 Binding Capacity Percent Iron 39 Saturation Troponin I 0.014 Bedside Glucose 168 White Blood Count 10.2 Red Blood Count 2.57 L Hemoglobin 7.8 L Hematocrit 23.5 L Mean Corpuscular 91.4 Volume Mean Corpuscular 30.4 Hemoglobin Mean Corpuscular 33.2 Hemoglobin Concen t Red Cell 14.6 H Distribution Width Platelet Count 189 Mean Platelet 10.9 H Volume Immature 1.000 H Granulocytes % Neutrophils % 58.5 Lymphocytes % 29.2 Monocytes % 8.9 Eosinophils % 2.2 Basophils % 0.2 Nucleated Red 0.0 Blood Cells % Immature 0.100 H Granulocytes # Neutrophils # 6.0 Lymphocytes # 3.0 H Monocytes # 0.9 Eosinophils # 0.2 Basophils # 0.0 Nucleated Red 0.0 Blood Cells # Absolute 0.100 Reticulocyte Count Percent 3.9 H Reticulocyte Count Sodium Level 140 Potassium Level 3.9 Chloride Level 111 H Carbon Dioxide 24 Level Anion Gap 5 Blood Urea 39 #H Nitrogen Creatinine 0.58 L Est Glomerular > 60 Filtrat Rate mL/min Glucose Level 133 Calcium Level 8.3 L Magnesium Level 2.3 Total Bilirubin 0.4 Direct Bilirubin 0.00 Indirect 0.4 Bilirubin Aspartate Amino 21 Transf (AST/SGOT) Alanine 29 Aminotransferase (ALT/SGPT) Alkaline 60 Phosphatase Total Protein 5.4 L Albumin 2.9 L Globulin 2.50 Albumin/Globulin 1.16 Ratio Vancomycin Level 14.5 Trough Test 01/16/19 04:42 01/16/19 07:01 01/16/19 12:17 Lab Scanned BLOOD TRANSFUSIO Report N Bedside Glucose 152 166 Subjective 24 Hr Interval Summary Free Text/Dictation - NAD - C/O right heel pain - Patient was scheduled for bypass today but Bypass is canceled 2/2 Low Hgb, ? sp AICD ; will be rescheduled once he has stabilized Constitutional: improved Eyes: no complaints ENT: no complaints Respiratory: no complaints Cardiovascular: no complaints Gastrointestinal: no complaints Musculoskeletal: bone/joint pain, restricted range of motion Skin: other Neurologic: no complaints Endocrine: no complaints Psychological: no complaints Immunologic: no complaints Exam/Review of Systems Exam Vitals Vital Signs Date Temp Pulse Resp B/P (MAP) Pulse Ox O2 O2 Flow FiO2 Time Delivery Rate 01/16/19 93 12 95/46 (62) 100 Room Air 10:00 01/16/19 97.5 08:00 01/13/19 6.0 10:35 Intake and Output 01/15/19 01/15/19 01/16/19 1515:00 23:00 07:00 IntakeIntake Total 1253.75 ml 1510 ml 673.333 ml OutputOutput Total 2000 ml 1850 ml 500 ml BalanceBalance -746.25 ml -340 ml 173.333 ml Constitutional: alert, well developed, obese Psych: nl mood/affect Head: normocephalic Eyes: nl lids, nl sclera ENMT: nl external ears & nose Neck: non-tender Respiratory: clear to auscultation Cardiovascular: nl pulses, other (s1s2) Gastrointestinal: soft, non-tender Musculoskeletal: range of motion, swelling Extremities: edema 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: nl speech, other (alert/repsonsive) Skin: other Lymph: nontender Results Results 24hrs Laboratory Tests Test 01/15/19 15:56 01/15/19 17:10 01/15/19 17:38 01/15/19 20:55 White Blood Count 10.7 Red Blood Count 2.68 L Hemoglobin 7.9 L Hematocrit 24.2 L Mean Corpuscular 90.3 Volume Mean Corpuscular 29.5 Hemoglobin Mean Corpuscular 32.6 Hemoglobin Concen t Red Cell 14.6 H Distribution Width Platelet Count 210 Mean Platelet 9.8 Volume Immature 0.900 H Granulocytes % Neutrophils % 60.0 Lymphocytes % 27.2 Monocytes % 11.0 Eosinophils % 0.7 Basophils % 0.2 Nucleated Red 0.0 Blood Cells % Immature 0.100 H Granulocytes # Neutrophils # 6.4 Lymphocytes # 2.9 Monocytes # 1.2 H Eosinophils # 0.1 Basophils # 0.0 Nucleated Red 0.0 Blood Cells # Bedside Glucose 194 199 Troponin I 0.014 Test 01/15/19 22:52 01/16/19 00:23 01/16/19 01:57 01/16/19 03:24 Iron Level 98 Total Iron 251 Binding Capacity Percent Iron 39 Saturation Troponin I 0.014 Bedside Glucose 168 White Blood Count 10.2 Red Blood Count 2.57 L Hemoglobin 7.8 L Hematocrit 23.5 L Mean Corpuscular 91.4 Volume Mean Corpuscular 30.4 Hemoglobin Mean Corpuscular 33.2 Hemoglobin Concen t Red Cell 14.6 H Distribution Width Platelet Count 189 Mean Platelet 10.9 H Volume Immature 1.000 H Granulocytes % Neutrophils % 58.5 Lymphocytes % 29.2 Monocytes % 8.9 Eosinophils % 2.2 Basophils % 0.2 Nucleated Red 0.0 Blood Cells % Immature 0.100 H Granulocytes # Neutrophils # 6.0 Lymphocytes # 3.0 H Monocytes # 0.9 Eosinophils # 0.2 Basophils # 0.0 Nucleated Red 0.0 Blood Cells # Absolute 0.100 Reticulocyte Count Percent 3.9 H Reticulocyte Count Sodium Level 140 Potassium Level 3.9 Chloride Level 111 H Carbon Dioxide 24 Level Anion Gap 5 Blood Urea 39 #H Nitrogen Creatinine 0.58 L Est Glomerular > 60 Filtrat Rate mL/min Glucose Level 133 Calcium Level 8.3 L Magnesium Level 2.3 Total Bilirubin 0.4 Direct Bilirubin 0.00 Indirect 0.4 Bilirubin Aspartate Amino 21 Transf (AST/SGOT) Alanine 29 Aminotransferase (ALT/SGPT) Alkaline 60 Phosphatase Total Protein 5.4 L Albumin 2.9 L Globulin 2.50 Albumin/Globulin 1.16 Ratio Vancomycin Level 14.5 Trough Test 01/16/19 04:42 01/16/19 07:01 01/16/19 12:17 Lab Scanned BLOOD TRANSFUSIO Report N Bedside Glucose 152 166 Medications Medication Current Medications Amiodarone HCl (Cordarone) 200 mg DAILY PO Last administered on 01/16/19 08:47; Admin Dose 200 MG; Start 01/10/19 at 09:00 Clopidogrel Bisulfate (plaVIX) 75 mg DAILY PO Last administered on 01/16/19 08:47; Admin Dose 75 MG; Start 01/10/19 at 09:00 Digoxin (Digoxin) 0.125 mg DAILY@1300 PO Last administered on 01/15/19 12:29; Admin Dose 0.125 MG; Start 01/10/19 at 13:00 Gabapentin (Neurontin) 600 mg DAILY PO Last administered on 01/16/19at 08:49; Admin Dose 600 MG; Start 01/10/19 at 09:00 Empaglifozin (Jardiance) 25 mg DAILY PO Last administered on 01/16/19 08:47; Admin Dose 25 MG; Start 01/10/19 at 09:00 Linagliptin (Tradjenta) 5 mg DAILY PO Last administered on 01/16/19 08:58; Admin Dose 5 MG; Start 01/10/19 at 09:00 Diagnostic Test (Pha) (Accu-Chek) 1 ea AC MEALS AND BEDTIME XX Last administered on 01/15/19 17:49; Admin Dose 1 EA; Start 01/09/19 at 21:00 Acetaminophen (Tylenol Tab) 650 mg Q4H PRN PO MILD PAIN(1-3)OR ELEVATED TEMP; Start 01/09/19 at 20:30 Acetaminophen/ Hydrocodone Bitart (Chemult (5/325)) 1 tab Q4H PRN PO MODERATE PAIN LEVEL 4-6 Last administered on 01/15/19 08:43; Admin Dose 1 TAB; Start 01/09/19 at 20:30 Ondansetron HCl (Zofran Inj) 4 mg Q6H PRN IV NAUSEA AND/OR VOMITING Last administered on 01/14/19 19:59; Admin Dose 4 MG; Start 01/09/19 at 20:30 Diagnostic Test (Pha) (Accu-Chek) 1 ea 02 XX ; Start 01/10/19 at 02:00 Insulin Aspart (Novolog Insulin Pen) NOVOLOG *MILD* ALGORITHM WITH MEALS BEDTIME SC Last administered on 01/16/19 12:38; Admin Dose 1 UNIT; Start 01/09/19 at 22:30 Miscellaneous Information 1 ea NOTE XX ; Start 01/09/19 at 21:30 Glucose (Glutose) 15 gm Q15M PRN PO DECREASED GLUCOSE; Start 01/09/19 at 21:30 Glucose (Glutose) 22.5 gm Q15M PRN PO DECREASED GLUCOSE; Start 01/09/19 at 21:30 Dextrose (D50w Syringe) 25 ml Q15M PRN IV DECREASED GLUCOSE; Start 01/09/19 at 21:30 Dextrose (D50w Syringe) 50 ml Q15M PRN IV DECREASED GLUCOSE; Start 01/09/19 at 21:30 Glucagon (Glucagen) 1 mg Q15M PRN IM DECREASED GLUCOSE; Start 01/09/19 at 21:30 Glucose (Glutose) 15 gm Q15M PRN BUCCAL DECREASED GLUCOSE; Start 01/09/19 at 21:30 Insulin Glargine (Lantus) 18 units QHS SC Last administered on 01/15/19 21:21; Admin Dose 18 UNITS; Start 01/09/19 at 22:30 Carvedilol (Coreg) 3.125 mg BID PO Last administered on 01/16/19 08:57; Admin Dose 3.125 MG; Start 01/10/19 at 21:00 Vancomycin HCl (Vanco Iv Per Pharmacy) VANCOMYCIN PER PHARMACY PER PROTOCOL XX ; Start 01/11/19 at 02:30 Meropenem/Sodium Chloride 50 ml @ 100 mls/hr Q8 IVPB Last administered on 01/16/19 05:06; Admin Dose 100 MLS/HR; Start 01/11/19 at 19:30 Lisinopril (Zestril) 2.5 mg DAILY PO Last administered on 01/16/19 08:58; Admin Dose 2.5 MG; Start 01/13/19 at 09:00 Clindamycin HCl/ Dextrose 50 ml @ 50 mls/hr Q8 IVPB Last administered on 01/16/19 05:48; Admin Dose 50 MLS/HR; Start 01/12/19 at 22:00 Senna (Senokot) 1 tab DAILY PRN PO CONSTIPATION Last administered on 01/14/19 16:52; Admin Dose 1 TAB; Start 01/12/19 at 18:30 Docusate Sodium (Colace) 100 mg BID PRN PO CONSTIPATION Last administered on 01/14/19 16:52; Admin Dose 100 MG; Start 01/12/19 at 18:30 Neomycin/ Polymyxin/ Bacitracin (Neosporin Topical Oint) 1 applic DAILY TOP Last administered on 01/16/19 08:59; Admin Dose 1 APPLIC; Start 01/12/19 at 18:30 Enoxaparin Sodium (Lovenox) 30 mg DAILY SC Last administered on 01/16/19 08:51; Admin Dose 30 MG; Start 01/14/19 at 09:00 Acetaminophen/ Hydrocodone Bitart (Chemult (10)) 1 tab Q4H PRN PO MODERATE PAIN LEVEL 4-6 Last administered on 01/16/19 09:00; Admin Dose 1 TAB; Start 01/13/19 at 21:00 Furosemide (Lasix) 20 mg DAILY PO Last administered on 01/16/19 08:48; Admin Dose 20 MG; Start 01/15/19 at 09:00 Phenylephrine HCl 250 ml @ 75 mls/hr TITRATE IV Last administered on 01/15/19 08:38; Admin Dose 56.25 MLS/HR; Start 01/15/19 at 01:30 Pantoprazole (Protonix Iv) 40 mg DAILY@06 IV Last administered on 01/16/19 05:06; Admin Dose 40 MG; Start 01/16/19 at 06:00 Morphine Sulfate (morphine) 2 mg Q4H PRN IV SEVERE PAIN LEVEL 7-10 Last administered on 01/16/19 06:33; Admin Dose 2 MG; Start 01/15/19 at 20:30 Cyanocobalamin (Vitamin B12 Inj) 1,000 mcg DAILY IM Last administered on 01/16/19 08:50; Admin Dose 1,000 MCG; Start 01/16/19 at 09:00 Vancomycin HCl 1.25 gm/Sodium Chloride 250 ml @ 83.333 mls/ hr Q12H IVPB ; Start 01/16/19 at 16:00 MARTINE PUENTES January 16, 2019 12:53
--- NOTE | 2019-01-16 13:16 | CONS ---
Assessment/Plan Assessment/Plan Assessment/Plan (Daily) 63-year-old gentleman with history of coronary artery disease, status post CABG, also status post AICD placement, hypertension, diabetes, peripheral vascular disease, status post aortogram and right lower extremity runoff and percutaneous angioplasty of the posterior tibial artery and anterior tibial artery in 10/2018. Patient has a worsening RLE heel wound and thus admitted for sepsis. Patient with acute 3-4 gram drop in Hgb since admission and thus consulted for anemia. # Anemia-normocytic -With the acute drop, I am concerned about either a GI bleed or intrabdominal bleed. -Patient has been on lovenox and I would discontinue at this time. -Recommend CT A/P with contrast to evaluate for intra-abdominal bleed. -Transfuse to keep hgb > 7. Patient had a transfusion yesterday but did not r espond appropriately. -Iron studies are normal but vitamin b12 is low and thus initiated vitamin b12 1000 mcg weekly. -There is no evidence of hemolysis at this time. -Stool occult blood sent and awaiting results; stool color was black. -I do not think there is a bone marrow disorder or blood disorder causing anemia and think this is highly due to blood loss. Thank you to Dr. Mann for allowing me to participate in the care of this patient. I am covering Dr. Hancock this weekend. Consultation Date/Type/Reason Admit Date/Time January 09, 2019 at 18:17 Date of Consultation: January 16, 2019 Type of Consult Hematology/Oncology Reason for Consultation anemia Date/Time of Note DATE: 01/16/19 TIME: 13:13 Hx of Present Illness 63-year-old gentleman with history of coronary artery disease, status post CABG, also status post AICD placement, hypertension, diabetes, peripheral vascular disease, status post aortogram and right lower extremity runoff and percutaneous angioplasty of the posterior tibial artery and anterior tibial artery in 10/2018. The patient, however, continued to have worsening of his wound and was noted to have a heel ulcer with infection. MRI did not show any osteomyelitis. Upon admission the patient's Hgb was 13.8 and then on 01/15/19, the patient had an acute drop to 9. The patient states he has never had a colonscopy or EGD. The patient states he noted melenic stools over the past 24 hours which have been sent for evaluation. Patient was also on lovenox prophylaxis as well. Due to this significant drop in hgb, we were consulted. Stool studies are pending. Iron studies are stable. Vitamin b12 are stable. PMH: as above PSxH: as above SH: Denies tobacco, ETOH, or IVDA. FH: denies any family history of blood disorders or cancers. Meds: see list All: NKDA Constitutional: improved Eyes: no complaints ENT: no complaints Respiratory: no complaints Cardiovascular: no complaints Gastrointestinal: no complaints Genitourinary: no complaints Musculoskeletal: no complaints Skin: skin lesions Neurologic: no complaints Lymphatic: no complaints Psychological: no complaints, nl mood/affect Immunologic: no complaints Past Medical History Medical History: congestive heart failure, coronary artery disease, diabetes, high cholesterol, hypertension Home Meds Reported Medications Amiodarone Hcl* (Amiodarone Hcl*) 200 Mg Tablet, 200 MG PO DAILY, #30 TAB 01/09/19 Digoxin* (Digitek*) 125 Mcg Tablet, 0.125 MG PO DAILY, TAB 01/09/19 Rivaroxaban* (Xarelto*) 20 Mg Tablet, 20 MG PO WITH DINNER, TAB 01/09/19 Clopidogrel Bisulfate* (Clopidogrel Bisulfate*) 75 Mg Tablet, 75 MG PO DAILY, #30 TAB 01/09/19 Empagliflozin (Jardiance) 25 Mg Tablet, 25 MG PO DAILY, TAB 01/09/19 Insulin Glargine,Hum.rec.anlog (Basaglar Kwikpen U-100) 100 Unit/1 Ml Insuln.pen, 18 UNIT SC QHS, EA 01/09/19 Sulfamethoxazole/Trimethoprim* (Bactrim Ds* Tablet) 1 Each Tablet, 1 TAB PO BID, TAB FOR 10 DAYS,START TAKING 01/06/19 01/09/19 Tapentadol Hcl (Nucynta) 100 Mg Tablet, 100 MG PO BID, TAB 01/09/19 Gabapentin* (Gabapentin*) 600 Mg Tablet, 600 MG PO DAILY, #60 TAB 01/09/19 Metformin Hcl* (Metformin Hcl*) 1,000 Mg Tablet, 1000 MG PO WITH BREAKFAST DINNE, #60 TAB 01/09/19 Discontinued Reported Medications Amiodarone Hcl* (Amiodarone Hcl*) 200 Mg Tablet, 200 MG PO DAILY, #30 TAB 10/31/18 Digoxin* (Digox*) 125 Mcg Tablet, 125 MCG ORAL am 10/31/18 Gabapentin* (Gabapentin*) 600 Mg Tablet, 600 MG PO hs, #60 TAB 10/31/18 Naproxen* (Naproxen*) 500 Mg Tablet, 500 MG PO DAILY, TAB 10/31/18 Rivaroxaban* (Xarelto*) 20 Mg Tablet, 20 MG PO WITH DINNER, TAB 10/31/18 Clopidogrel Bisulfate (Clopidogrel) 75 Mg Tablet, 75 MG PO DAILY, #30 TAB 10/31/18 Tapentadol Hcl (Nucynta) 100 Mg Tablet, 100 MG PO Q4 PRN for PAIN LEVEL 6-10, TAB 10/31/18 Empagliflozin (Jardiance) 25 Mg Tablet, 25 MG PO DAILY, TAB 10/31/18 Insulin Glargine* (Lantus*) 100 Unit/Ml Soln, 20 UNIT SC QHS, #1 VIAL 10/31/18 Metformin* (Glucophage*) 1,000 Mg Tablet, 1000 MG PO WITH BREAKFAST DINNE, #30 TAB 10/31/18 Metformin Hcl* (Metformin Hcl*) 1,000 Mg Tablet, 1000 MG PO WITH BREAKFAST DINNE, #60 TAB 06/09/18 Amiodarone Hcl* (Amiodarone Hcl*) 200 Mg Tablet, 200 MG PO DAILY, #30 TAB 06/09/18 Medications Current Medications Amiodarone HCl (Cordarone) 200 mg DAILY PO Last administered on 01/16/19at 08:47; Admin Dose 200 MG; Start 01/10/19 at 09:00 Clopidogrel Bisulfate (plaVIX) 75 mg DAILY PO Last administered on 01/16/19at 08:47; Admin Dose 75 MG; Start 01/10/19 at 09:00 Digoxin (Digoxin) 0.125 mg DAILY@1300 PO Last administered on 01/16/19at 12:53; Admin Dose 0.125 MG; Start 01/10/19 at 13:00 Gabapentin (Neurontin) 600 mg DAILY PO Last administered on 01/16/19at 08:49; Admin Dose 600 MG; Start 01/10/19 at 09:00 Empaglifozin (Jardiance) 25 mg DAILY PO Last administered on 01/16/19at 08:47; Admin Dose 25 MG; Start 01/10/19 at 09:00 Linagliptin (Tradjenta) 5 mg DAILY PO Last administered on 01/16/19 08:58; Admin Dose 5 MG; Start 01/10/19 at 09:00 Diagnostic Test (Pha) (Accu-Chek) 1 ea AC MEALS AND BEDTIME XX Last administered on 01/15/19 17:49; Admin Dose 1 EA; Start 01/09/19 at 21:00 Acetaminophen (Tylenol Tab) 650 mg Q4H PRN PO MILD PAIN(1-3)OR ELEVATED TEMP; Start 01/09/19 at 20:30 Acetaminophen/ Hydrocodone Bitart (Denair (5/325)) 1 tab Q4H PRN PO MODERATE PAIN LEVEL 4-6 Last administered on 01/15/19 08:43; Admin Dose 1 TAB; Start 01/09/19 at 20:30 Ondansetron HCl (Zofran Inj) 4 mg Q6H PRN IV NAUSEA AND/OR VOMITING Last administered on 01/14/19 19:59; Admin Dose 4 MG; Start 01/09/19 at 20:30 Diagnostic Test (Pha) (Accu-Chek) 1 ea 02 XX ; Start 01/10/19 at 02:00 Insulin Aspart (Novolog Insulin Pen) NOVOLOG *MILD* ALGORITHM WITH MEALS BEDT TIKA SC Last administered on 01/16/19 12:38; Admin Dose 1 UNIT; Start 01/09/19 at 22:30 Miscellaneous Information 1 ea NOTE XX ; Start 01/09/19 at 21:30 Glucose (Glutose) 15 gm Q15M PRN PO DECREASED GLUCOSE; Start 01/09/19 at 21:30 Glucose (Glutose) 22.5 gm Q15M PRN PO DECREASED GLUCOSE; Start 01/09/19 at 21:30 Dextrose (D50w Syringe) 25 ml Q15M PRN IV DECREASED GLUCOSE; Start 01/09/19 at 21:30 Dextrose (D50w Syringe) 50 ml Q15M PRN IV DECREASED GLUCOSE; Start 01/09/19 at 21:30 Glucagon (Glucagen) 1 mg Q15M PRN IM DECREASED GLUCOSE; Start 01/09/19 at 21:30 Glucose (Glutose) 15 gm Q15M PRN BUCCAL DECREASED GLUCOSE; Start 01/09/19 at 21:30 Insulin Glargine (Lantus) 18 units QHS SC Last administered on 01/15/19 21:21; Admin Dose 18 UNITS; Start 01/09/19 at 22:30 Carvedilol (Coreg) 3.125 mg BID PO Last administered on 01/16/19 08:57; Admin Dose 3.125 MG; Start 01/10/19 at 21:00 Vancomycin HCl (Vanco Iv Per Pharmacy) VANCOMYCIN PER PHARMACY PER PROTOCOL XX ; Start 01/11/19 at 02:30 Meropenem/Sodium Chloride 50 ml @ 100 mls/hr Q8 IVPB Last administered on 01/16/19 13:06; Admin Dose 100 MLS/HR; Start 01/11/19 at 19:30 Lisinopril (Zestril) 2.5 mg DAILY PO Last administered on 01/16/19 08:58; Admin Dose 2.5 MG; Start 01/13/19 at 09:00 Clindamycin HCl/ Dextrose 50 ml @ 50 mls/hr Q8 IVPB Last administered on 01/16/19 13:06; Admin Dose 50 MLS/HR; Start 01/12/19 at 22:00 Senna (Senokot) 1 tab DAILY PRN PO CONSTIPATION Last administered on 01/14/19 16:52; Admin Dose 1 TAB; Start 01/12/19 at 18:30 Docusate Sodium (Colace) 100 mg BID PRN PO CONSTIPATION Last administered on 01/14/19 16:52; Admin Dose 100 MG; Start 01/12/19 at 18:30 Neomycin/ Polymyxin/ Bacitracin (Neosporin Topical Oint) 1 applic DAILY TOP Last administered on 01/16/19 08:59; Admin Dose 1 APPLIC; Start 01/12/19 at 18:30 Enoxaparin Sodium (Lovenox) 30 mg DAILY SC Last administered on 01/16/19 08:51; Admin Dose 30 MG; Start 01/14/19 at 09:00 Acetaminophen/ Hydrocodone Bitart (Denair (10/325)) 1 tab Q4H PRN PO MODERATE PAIN LEVEL 4-6 Last administered on 01/16/19 13:07; Admin Dose 1 TAB; Start 01/13/19 at 21:00 Furosemide (Lasix) 20 mg DAILY PO Last administered on 01/16/19 08:48; Admin Dose 20 MG; Start 01/15/19 at 09:00 Phenylephrine HCl 250 ml @ 75 mls/hr TITRATE IV Last administered on 01/15/19at 08:38; Admin Dose 56.25 MLS/HR; Start 01/15/19 at 01:30 Pantoprazole (Protonix Iv) 40 mg DAILY@06 IV Last administered on 01/16/19at 05:06; Admin Dose 40 MG; Start 01/16/19 at 06:00 Morphine Sulfate (morphine) 2 mg Q4H PRN IV SEVERE PAIN LEVEL 7-10 Last administered on 01/16/19at 06:33; Admin Dose 2 MG; Start 01/15/19 at 20:30 Cyanocobalamin (Vitamin B12 Inj) 1,000 mcg DAILY IM Last administered on 01/16at 08:50; Admin Dose 1,000 MCG; Start 01/16/19 at 09:00 Vancomycin HCl 1.25 gm/Sodium Chloride 250 ml @ 83.333 mls/ hr Q12H IVPB ; Start 01/16/19 at 16:00 Allergies: Coded Allergies: No Known Allergy (Unverified , 01/09/19) Past Surgical History Past Surgical Hx: coronary bypass surgery Social History Alcohol Use: none Smoking Status: Never smoker Exam/Review of Systems Exam Vitals Vital Signs Date Temp Pulse Resp B/P (MAP) Pulse Ox O2 O2 Flow FiO2 Time Delivery Rate 01/16/19 93 12 95/46 (62) 100 Room Air 10:00 01/16/19 97.5 08:00 01/13/19 6.0 10:35 Intake and Output 01/15/19 01/15/19 01/16/19 1515:00 23:00 07:00 IntakeIntake Total 1253.75 ml 1510 ml 673.333 ml OutputOutput Total 2000 ml 1850 ml 500 ml BalanceBalance -746.25 ml -340 ml 173.333 ml Constitutional: alert, oriented, well developed Psych: no complaints, nl mood/affect Head: normocephalic, atraumatic Eyes: nl conjunctiva, EOMI, nl lids, nl sclera, PERRL ENMT: nl external ears & nose, nl lips & teeth, nl nasal mucosa & septum Neck: supple, non-tender Respiratory: clear to auscultation, normal air movement Cardiovascular: regular rate and rhythm, nl pulses Gastrointestinal: soft, nl liver, spleen, non-tender Musculoskeletal: nl extremities to inspection, nl gait and stance Extremities: normal pulses, pitting pedal edema, tenderness, other (heel ulcer) 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: PILLOW CLEANER II-XII intact, nl mental status, nl speech, nl strength Skin: nl turgor; No rash or lesions Lymph: nl lymph nodes Results Result Diagram: 01/16/19 0324 01/16/19 0324 Results 24hrs Laboratory Tests Test 01/15/19 15:56 01/15/19 17:10 01/15/19 17:38 01/15/19 20:55 White Blood Count 10.7 Red Blood Count 2.68 L Hemoglobin 7.9 L Hematocrit 24.2 L Mean Corpuscular 90.3 Volume Mean Corpuscular 29.5 Hemoglobin Mean Corpuscular 32.6 Hemoglobin Concen t Red Cell 14.6 H Distribution Width Platelet Count 210 Mean Platelet 9.8 Volume Immature 0.900 H Granulocytes % Neutrophils % 60.0 Lymphocytes % 27.2 Monocytes % 11.0 Eosinophils % 0.7 Basophils % 0.2 Nucleated Red 0.0 Blood Cells % Immature 0.100 H Granulocytes # Neutrophils # 6.4 Lymphocytes # 2.9 Monocytes # 1.2 H Eosinophils # 0.1 Basophils # 0.0 Nucleated Red 0.0 Blood Cells # Bedside Glucose 194 199 Troponin I 0.014 Test 01/15/19 22:52 01/16/19 00:23 01/16/19 01:57 01/16/19 03:24 Iron Level 98 Total Iron 251 Binding Capacity Percent Iron 39 Saturation Troponin I 0.014 Bedside Glucose 168 White Blood Count 10.2 Red Blood Count 2.57 L Hemoglobin 7.8 L Hematocrit 23.5 L Mean Corpuscular 91.4 Volume Mean Corpuscular 30.4 Hemoglobin Mean Corpuscular 33.2 Hemoglobin Concen t Red Cell 14.6 H Distribution Width Platelet Count 189 Mean Platelet 10.9 H Volume Immature 1.000 H Granulocytes % Neutrophils % 58.5 Lymphocytes % 29.2 Monocytes % 8.9 Eosinophils % 2.2 Basophils % 0.2 Nucleated Red 0.0 Blood Cells % Immature 0.100 H Granulocytes # Neutrophils # 6.0 Lymphocytes # 3.0 H Monocytes # 0.9 Eosinophils # 0.2 Basophils # 0.0 Nucleated Red 0.0 Blood Cells # Absolute 0.100 Reticulocyte Count Percent 3.9 H Reticulocyte Count Sodium Level 140 Potassium Level 3.9 Chloride Level 111 H Carbon Dioxide 24 Level Anion Gap 5 Blood Urea 39 #H Nitrogen Creatinine 0.58 L Est Glomerular > 60 Filtrat Rate mL/min Glucose Level 133 Calcium Level 8.3 L Magnesium Level 2.3 Total Bilirubin 0.4 Direct Bilirubin 0.00 Indirect 0.4 Bilirubin Aspartate Amino 21 Transf (AST/SGOT) Alanine 29 Aminotransferase (ALT/SGPT) Alkaline 60 Phosphatase Total Protein 5.4 L Albumin 2.9 L Globulin 2.50 Albumin/Globulin 1.16 Ratio Vancomycin Level 14.5 Trough Test 01/16/19 04:42 01/16/19 07:01 01/16/19 08:00 01/16/19 12:17 Lab Scanned BLOOD TRANSFUSIO Report N Bedside Glucose 152 166 Stool Occult NEGATIVE Blood Medications Medication Current Medications Amiodarone HCl (Cordarone) 200 mg DAILY PO Last administered on 01/16/19 08:47; Admin Dose 200 MG; Start 01/10/19 at 09:00 Clopidogrel Bisulfate (plaVIX) 75 mg DAILY PO Last administered on 01/16/19 08:47; Admin Dose 75 MG; Start 01/10/19 at 09:00 Digoxin (Digoxin) 0.125 mg DAILY@1300 PO Last administered on 01/16/19 12:53; Admin Dose 0.125 MG; Start 01/10/19 at 13:00 Gabapentin (Neurontin) 600 mg DAILY PO Last administered on 01/16/19 08:49; Admin Dose 600 MG; Start 01/10/19 at 09:00 Empaglifozin (Jardiance) 25 mg DAILY PO Last administered on 01/16/19 08:47; Admin Dose 25 MG; Start 01/10/19 at 09:00 Linagliptin (Tradjenta) 5 mg DAILY PO Last administered on 01/16/19 08:58; Admin Dose 5 MG; Start 01/10/19 at 09:00 Diagnostic Test (Pha) (Accu-Chek) 1 ea AC MEALS AND BEDTIME XX Last administered on 01/15/19 17:49; Admin Dose 1 EA; Start 01/09/19 at 21:00 Acetaminophen (Tylenol Tab) 650 mg Q4H PRN PO MILD PAIN(1-3)OR ELEVATED TEMP; Start 01/09/19 at 20:30 Acetaminophen/ Hydrocodone Bitart (Denair (5/325)) 1 tab Q4H PRN PO MODERATE PAIN LEVEL 4-6 Last administered on 01/15/19 08:43; Admin Dose 1 TAB; Start 01/09/19 at 20:30 Ondansetron HCl (Zofran Inj) 4 mg Q6H PRN IV NAUSEA AND/OR VOMITING Last administered on 01/14/19 19:59; Admin Dose 4 MG; Start 01/09/19 at 20:30 Diagnostic Test (Pha) (Accu-Chek) 1 ea 02 XX ; Start 01/10/19 at 02:00 Insulin Aspart (Novolog Insulin Pen) NOVOLOG *MILD* ALGORITHM WITH MEALS BE DTIME SC Last administered on 01/16/19 12:38; Admin Dose 1 UNIT; Start 01/09/19 at 22:30 Miscellaneous Information 1 ea NOTE XX ; Start 01/09/19 at 21:30 Glucose (Glutose) 15 gm Q15M PRN PO DECREASED GLUCOSE; Start 01/09/19 at 21:30 Glucose (Glutose) 22.5 gm Q15M PRN PO DECREASED GLUCOSE; Start 01/09/19 at 21:30 Dextrose (D50w Syringe) 25 ml Q15M PRN IV DECREASED GLUCOSE; Start 01/09/19 at 21:30 Dextrose (D50w Syringe) 50 ml Q15M PRN IV DECREASED GLUCOSE; Start 01/09/19 at 21:30 Glucagon (Glucagen) 1 mg Q15M PRN IM DECREASED GLUCOSE; Start 01/09/19 at 21:30 Glucose (Glutose) 15 gm Q15M PRN BUCCAL DECREASED GLUCOSE; Start 01/09/19 at 21:30 Insulin Glargine (Lantus) 18 units QHS SC Last administered on 01/15/19 21:21; Admin Dose 18 UNITS; Start 01/09/19 at 22:30 Carvedilol (Coreg) 3.125 mg BID PO Last administered on 01/16/19 08:57; Admin Dose 3.125 MG; Start 01/10/19 at 21:00 Vancomycin HCl (Vanco Iv Per Pharmacy) VANCOMYCIN PER PHARMACY PER PROTOCOL XX ; Start 01/11/19 at 02:30 Meropenem/Sodium Chloride 50 ml @ 100 mls/hr Q8 IVPB Last administered on 01/16/19 13:06; Admin Dose 100 MLS/HR; Start 01/11/19 at 19:30 Lisinopril (Zestril) 2.5 mg DAILY PO Last administered on 01/16/19 08:58; Admin Dose 2.5 MG; Start 01/13/19 at 09:00 Clindamycin HCl/ Dextrose 50 ml @ 50 mls/hr Q8 IVPB Last administered on 01/16/19 13:06; Admin Dose 50 MLS/HR; Start 01/12/19 at 22:00 Senna (Senokot) 1 tab DAILY PRN PO CONSTIPATION Last administered on 01/14/19 16:52; Admin Dose 1 TAB; Start 01/12/19 at 18:30 Docusate Sodium (Colace) 100 mg BID PRN PO CONSTIPATION Last administered on 01/14/19 16:52; Admin Dose 100 MG; Start 01/12/19 at 18:30 Neomycin/ Polymyxin/ Bacitracin (Neosporin Topical Oint) 1 applic DAILY TOP Last administered on 01/16/19 08:59; Admin Dose 1 APPLIC; Start 01/12/19 at 18:30 Enoxaparin Sodium (Lovenox) 30 mg DAILY SC Last administered on 01/16/19 08:51; Admin Dose 30 MG; Start 01/14/19 at 09:00 Acetaminophen/ Hydrocodone Bitart (Denair (10/325)) 1 tab Q4H PRN PO MODERATE PAIN LEVEL 4-6 Last administered on 01/16/19 13:07; Admin Dose 1 TAB; Start 01/13/19 at 21:00 Furosemide (Lasix) 20 mg DAILY PO Last administered on 01/16/19 08:48; Admin Dose 20 MG; Start 01/15/19 at 09:00 Phenylephrine HCl 250 ml @ 75 mls/hr TITRATE IV Last administered on 01/15/19 08:38; Admin Dose 56.25 MLS/HR; Start 01/15/19 at 01:30 Pantoprazole (Protonix Iv) 40 mg DAILY@06 IV Last administered on 01/16/19 05:06; Admin Dose 40 MG; Start 01/16/19 at 06:00 Morphine Sulfate (morphine) 2 mg Q4H PRN IV SEVERE PAIN LEVEL 7-10 Last administered on 01/16/19at 06:33; Admin Dose 2 MG; Start 01/15/19 at 20:30 Cyanocobalamin (Vitamin B12 Inj) 1,000 mcg DAILY IM Last administered on 06/27at 08:50; Admin Dose 1,000 MCG; Start 01/16/19 at 09:00 Vancomycin HCl 1.25 gm/Sodium Chloride 250 ml @ 83.333 mls/ hr Q12H IVPB ; Start 01/16/19 at 16:00 STEVEN LOPEZ DO January 16, 2019 13:16
--- NOTE | 2019-01-16 13:37 | CONS ---
Assessment/Plan Assessment/Plan Hospital Course (Demo Recall) Case will be coordinated with [employer] BLANCO MAR via [employer] texting and phone call. I reviewed the emr as well and will be directing care shortly. Consultation Date/Type/Reason Admit Date/Time January 09, 2019 at 18:17 Initial Consult Date 01/10/19 Requesting Provider: KRISTIN PRYOR MD Date/Time of Note DATE: 01/16/19 TIME: 13:36 Exam/Review of Systems Exam Vitals Vital Signs Date Temp Pulse Resp B/P (MAP) Pulse Ox O2 O2 Flow FiO2 Time Delivery Rate 01/16/19 93 12 95/46 (62) 100 Room Air 10:00 01/16/19 97.5 08:00 01/13/19 6.0 10:35 Intake and Output 01/15/19 01/15/19 01/16/19 1414:59 22:59 06:59 IntakeIntake Total 1404.584 ml 1340 ml 843.333 ml OutputOutput Total 2000 ml 1400 ml 950 ml BalanceBalance -595.416 ml -60 ml -106.667 ml Results Result Diagram: 01/16/19 0324 01/16/19 0324 Results 24hrs Laboratory Tests Test 01/15/19 15:56 01/15/19 17:10 01/15/19 17:38 01/15/19 20:55 White Blood Count 10.7 Red Blood Count 2.68 L Hemoglobin 7.9 L Hematocrit 24.2 L Mean Corpuscular 90.3 Volume Mean Corpuscular 29.5 Hemoglobin Mean Corpuscular 32.6 Hemoglobin Concen t Red Cell 14.6 H Distribution Width Platelet Count 210 Mean Platelet 9.8 Volume Immature 0.900 H Granulocytes % Neutrophils % 60.0 Lymphocytes % 27.2 Monocytes % 11.0 Eosinophils % 0.7 Basophils % 0.2 Nucleated Red 0.0 Blood Cells % Immature 0.100 H Granulocytes # Neutrophils # 6.4 Lymphocytes # 2.9 Monocytes # 1.2 H Eosinophils # 0.1 Basophils # 0.0 Nucleated Red 0.0 Blood Cells # Bedside Glucose 194 199 Troponin I 0.014 Test 01/15/19 22:52 01/16/19 00:23 01/16/19 01:57 01/16/19 03:24 Iron Level 98 Total Iron 251 Binding Capacity Percent Iron 39 Saturation Troponin I 0.014 Bedside Glucose 168 White Blood Count 10.2 Red Blood Count 2.57 L Hemoglobin 7.8 L Hematocrit 23.5 L Mean Corpuscular 91.4 Volume Mean Corpuscular 30.4 Hemoglobin Mean Corpuscular 33.2 Hemoglobin Concen t Red Cell 14.6 H Distribution Width Platelet Count 189 Mean Platelet 10.9 H Volume Immature 1.000 H Granulocytes % Neutrophils % 58.5 Lymphocytes % 29.2 Monocytes % 8.9 Eosinophils % 2.2 Basophils % 0.2 Nucleated Red 0.0 Blood Cells % Immature 0.100 H Granulocytes # Neutrophils # 6.0 Lymphocytes # 3.0 H Monocytes # 0.9 Eosinophils # 0.2 Basophils # 0.0 Nucleated Red 0.0 Blood Cells # Absolute 0.100 Reticulocyte Count Percent 3.9 H Reticulocyte Count Sodium Level 140 Potassium Level 3.9 Chloride Level 111 H Carbon Dioxide 24 Level Anion Gap 5 Blood Urea 39 #H Nitrogen Creatinine 0.58 L Est Glomerular > 60 Filtrat Rate mL/min Glucose Level 133 Calcium Level 8.3 L Magnesium Level 2.3 Total Bilirubin 0.4 Direct Bilirubin 0.00 Indirect 0.4 Bilirubin Aspartate Amino 21 Transf (AST/SGOT) Alanine 29 Aminotransferase (ALT/SGPT) Alkaline 60 Phosphatase Total Protein 5.4 L Albumin 2.9 L Globulin 2.50 Albumin/Globulin 1.16 Ratio Vancomycin Level 14.5 Trough Test 01/16/19 04:42 01/16/19 07:01 01/16/19 08:00 01/16/19 12:17 Lab Scanned BLOOD TRANSFUSIO Report N Bedside Glucose 152 166 Stool Occult NEGATIVE Blood Medications Medication Current Medications Amiodarone HCl (Cordarone) 200 mg DAILY PO Last administered on 01/16/19 08:47; Admin Dose 200 MG; Start 01/10/19 at 09:00 Clopidogrel Bisulfate (plaVIX) 75 mg DAILY PO Last administered on 01/16/19 08:47; Admin Dose 75 MG; Start 01/10/19 at 09:00 Digoxin (Digoxin) 0.125 mg DAILY@1300 PO Last administered on 01/16/19 12:53; Admin Dose 0.125 MG; Start 01/10/19 at 13:00 Gabapentin (Neurontin) 600 mg DAILY PO Last administered on 01/16/19 08:49; Admin Dose 600 MG; Start 01/10/19 at 09:00 Empaglifozin (Jardiance) 25 mg DAILY PO Last administered on 01/16/19 08:47; Admin Dose 25 MG; Start 01/10/19 at 09:00 Linagliptin (Tradjenta) 5 mg DAILY PO Last administered on 01/16/19 08:58; Admin Dose 5 MG; Start 01/10/19 at 09:00 Diagnostic Test (Pha) (Accu-Chek) 1 ea AC MEALS AND BEDTIME XX Last administered on 01/15/19 17:49; Admin Dose 1 EA; Start 01/09/19 at 21:00 Acetaminophen (Tylenol Tab) 650 mg Q4H PRN PO MILD PAIN(1-3)OR ELEVATED TEMP; Start 01/09/19 at 20:30 Acetaminophen/ Hydrocodone Bitart ([place] (5/325)) 1 tab Q4H PRN PO MODERATE PAIN LEVEL 4-6 Last administered on 01/15/19 08:43; Admin Dose 1 TAB; Start 01/09/19 at 20:30 Ondansetron HCl (Zofran Inj) 4 mg Q6H PRN IV NAUSEA AND/OR VOMITING Last administered on 01/14/19 19:59; Admin Dose 4 MG; Start 01/09/19 at 20:30 Diagnostic Test (Pha) (Accu-Chek) 1 ea 02 XX ; Start 01/10/19 at 02:00 Insulin Aspart (Novolog Insulin Pen) NOVOLOG *MILD* ALGORITHM WITH MEALS BEDTIME SC Last administered on 01/16/19 12:38; Admin Dose 1 UNIT; Start 01/09/19 at 22:30 Miscellaneous Information 1 ea NOTE XX ; Start 01/09/19 at 21:30 Glucose (Glutose) 15 gm Q15M PRN PO DECREASED GLUCOSE; Start 01/09/19 at 21:30 Glucose (Glutose) 22.5 gm Q15M PRN PO DECREASED GLUCOSE; Start 01/09/19 at 21:30 Dextrose (D50w Syringe) 25 ml Q15M PRN IV DECREASED GLUCOSE; Start 01/09/19 at 21:30 Dextrose (D50w Syringe) 50 ml Q15M PRN IV DECREASED GLUCOSE; Start 01/09/19 at 21:30 Glucagon (Glucagen) 1 mg Q15M PRN IM DECREASED GLUCOSE; Start 01/09/19 at 21:30 Glucose (Glutose) 15 gm Q15M PRN BUCCAL DECREASED GLUCOSE; Start 01/09/19 at 21:30 Insulin Glargine (Lantus) 18 units QHS SC Last administered on 01/15/19 21:21; Admin Dose 18 UNITS; Start 01/09/19 at 22:30 Carvedilol (Coreg) 3.125 mg BID PO Last administered on 01/16/19 08:57; Admin Dose 3.125 MG; Start 01/10/19 at 21:00 Vancomycin HCl (Vanco Iv Per Pharmacy) VANCOMYCIN PER PHARMACY PER PROTOCOL XX ; Start 01/11/19 at 02:30 Meropenem/Sodium Chloride 50 ml @ 100 mls/hr Q8 IVPB Last administered on 01/16/19 13:06; Admin Dose 100 MLS/HR; Start 01/11/19 at 19:30 Lisinopril (Zestril) 2.5 mg DAILY PO Last administered on 01/16/19 08:58; Admin Dose 2.5 MG; Start 01/13/19 at 09:00 Clindamycin HCl/ Dextrose 50 ml @ 50 mls/hr Q8 IVPB Last administered on 01/16/19 13:06; Admin Dose 50 MLS/HR; Start 01/12/19 at 22:00 Senna (Senokot) 1 tab DAILY PRN PO CONSTIPATION Last administered on 01/14/19 16:52; Admin Dose 1 TAB; Start 01/12/19 at 18:30 Docusate Sodium (Colace) 100 mg BID PRN PO CONSTIPATION Last administered on 01/14/19 16:52; Admin Dose 100 MG; Start 01/12/19 at 18:30 Neomycin/ Polymyxin/ Bacitracin (Neosporin Topical Oint) 1 applic DAILY TOP Last administered on 01/16/19 08:59; Admin Dose 1 APPLIC; Start 01/12/19 at 18:30 Enoxaparin Sodium (Lovenox) 30 mg DAILY SC Last administered on 01/16/19 08:51; Admin Dose 30 MG; Start 01/14/19 at 09:00 Acetaminophen/ Hydrocodone Bitart ([place] (10/325)) 1 tab Q4H PRN PO MODERATE PAIN LEVEL 4-6 Last administered on 01/16/19 13:07; Admin Dose 1 TAB; Start 01/13/19 at 21:00 Furosemide (Lasix) 20 mg DAILY PO Last administered on 01/16/19 08:48; Admin Dose 20 MG; Start 01/15/19 at 09:00 Phenylephrine HCl 250 ml @ 75 mls/hr TITRATE IV Last administered on 01/15/19 08:38; Admin Dose 56.25 MLS/HR; Start 01/15/19 at 01:30 Pantoprazole (Protonix Iv) 40 mg DAILY@06 IV Last administered on 01/16/19 05:06; Admin Dose 40 MG; Start 01/16/19 at 06:00 Morphine Sulfate (morphine) 2 mg Q4H PRN IV SEVERE PAIN LEVEL 7-10 Last administered on 01/16/19 06:33; Admin Dose 2 MG; Start 01/15/19 at 20:30 Cyanocobalamin (Vitamin B12 Inj) 1,000 mcg DAILY IM Last administered on 01/16/19 08:50; Admin Dose 1,000 MCG; Start 01/16/19 at 09:00 Vancomycin HCl 1.25 gm/Sodium Chloride 250 ml @ 83.333 mls/ hr Q12H IVPB ; Start 01/16/19 at 16:00 DENITA WOMACK MD January 16, 2019 13:37
--- NOTE | 2019-01-16 14:56 | CONS ---
Assessment/Plan Assessment/Plan Hospital Course (Demo Recall) - infections of non-healing ulcer of R heel due to Gram negative bacteria. CT on 01/10/2019 did not show evidence of OM. ESR 26 on 01/09/2019; 01/13/19 wound cx grew E.Coli, P.mirabilis, Enterococcus species - chronic wound of R heel, in the past the wound culture grew E. coli - h/o OM of R foot, h/o 6 weeks of IV vancomycin and ceftriaxone in 2018. Pt remembers it was a "Staph infection." - trauma to R knee - CAD - PVD - h/o aortogram, RLE runoff and percutaneous angioplasty of the posterior tibial artery and the anterior tibial artery in 10/2018 - h/o CABG - h/o AICD placement - DM Recommendations: - Start Flagyl IV and Ceftriaxone (01/16/19 -) - Continue IV vancomycin (01/11/2019-) - F/u with micro: Unasyn S to E.coli and P.mirabilis from 01/13/19 wound cx - ordered - Consider picc line - Will likely require 4-6 weeks abx - S/p IV meropenem; s/p cefepime and metronidazole; - S/p clindamycin (01/11/2019-01/16/19) Above plan discussed and coordinated with via [employer]. Consultation Date/Type/Reason Admit Date/Time January 09, 2019 at 18:17 Initial Consult Date 01/10/19 Requesting Provider: KRISTIN PRYOR MD Date/Time of Note DATE: 01/16/19 TIME: 14:55 24 HR Interval Summary Free Text/Dictation Off Phenylephrine; BP stable WBC 10.2, afebrile 01/13/19 Wound cx grew E.Coli, P.mirabilis, Enterococcus species Constitutional: no complaints Exam/Review of Systems Exam Vitals Vital Signs Date Temp Pulse Resp B/P (MAP) Pulse Ox O2 O2 Flow FiO2 Time Delivery Rate 01/16/19 83 16 133/88 100 Room Air 13:00 (103) 01/16/19 97.5 08:00 01/13/19 6.0 10:35 Intake and Output 01/15/19 01/15/19 01/16/19 1515:00 23:00 07:00 IntakeIntake Total 1253.75 ml 1510 ml 673.333 ml OutputOutput Total 2000 ml 1850 ml 500 ml BalanceBalance -746.25 ml -340 ml 173.333 ml Exam Constitutional: alert, oriented, well developed, obese Head: normocephalic, atraumatic Eyes: EOMI, PERRL ENMT: mucosa pink and moist Neck: supple Respiratory: clear to auscultation; No congested cough, No crackles/rales Cardiovascular: other (S.tachy); No bruits, No irregular rhythm, No murmurs/extra sounds Gastrointestinal: bowel sounds, other (obese); No distended Extremities: Edema +1 RLE, No cyanosis, No clubbing, 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: nl mental status, nl speech, nl strength; No numbness Skin: other (R foot non healing ulcer wrapped with bandage ) Psych: no complaints, nl mood/affect Results Result Diagram: 01/16/19 0324 01/16/19 0324 Results 24hrs Laboratory Tests Test 01/15/19 15:56 01/15/19 17:10 01/15/19 17:38 01/15/19 20:55 White Blood Count 10.7 Red Blood Count 2.68 L Hemoglobin 7.9 L Hematocrit 24.2 L Mean Corpuscular 90.3 Volume Mean Corpuscular 29.5 Hemoglobin Mean Corpuscular 32.6 Hemoglobin Concen t Red Cell 14.6 H Distribution Width Platelet Count 210 Mean Platelet 9.8 Volume Immature 0.900 H Granulocytes % Neutrophils % 60.0 Lymphocytes % 27.2 Monocytes % 11.0 Eosinophils % 0.7 Basophils % 0.2 Nucleated Red 0.0 Blood Cells % Immature 0.100 H Granulocytes # Neutrophils # 6.4 Lymphocytes # 2.9 Monocytes # 1.2 H Eosinophils # 0.1 Basophils # 0.0 Nucleated Red 0.0 Blood Cells # Bedside Glucose 194 199 Troponin I 0.014 Test 01/15/19 22:52 01/16/19 00:23 01/16/19 01:57 01/16/19 03:24 Iron Level 98 Total Iron 251 Binding Capacity Percent Iron 39 Saturation Troponin I 0.014 Bedside Glucose 168 White Blood Count 10.2 Red Blood Count 2.57 L Hemoglobin 7.8 L Hematocrit 23.5 L Mean Corpuscular 91.4 Volume Mean Corpuscular 30.4 Hemoglobin Mean Corpuscular 33.2 Hemoglobin Concen t Red Cell 14.6 H Distribution Width Platelet Count 189 Mean Platelet 10.9 H Volume Immature 1.000 H Granulocytes % Neutrophils % 58.5 Lymphocytes % 29.2 Monocytes % 8.9 Eosinophils % 2.2 Basophils % 0.2 Nucleated Red 0.0 Blood Cells % Immature 0.100 H Granulocytes # Neutrophils # 6.0 Lymphocytes # 3.0 H Monocytes # 0.9 Eosinophils # 0.2 Basophils # 0.0 Nucleated Red 0.0 Blood Cells # Absolute 0.100 Reticulocyte Count Percent 3.9 H Reticulocyte Count Sodium Level 140 Potassium Level 3.9 Chloride Level 111 H Carbon Dioxide 24 Level Anion Gap 5 Blood Urea 39 #H Nitrogen Creatinine 0.58 L Est Glomerular > 60 Filtrat Rate mL/min Glucose Level 133 Calcium Level 8.3 L Magnesium Level 2.3 Total Bilirubin 0.4 Direct Bilirubin 0.00 Indirect 0.4 Bilirubin Aspartate Amino 21 Transf (AST/SGOT) Alanine 29 Aminotransferase (ALT/SGPT) Alkaline 60 Phosphatase Total Protein 5.4 L Albumin 2.9 L Globulin 2.50 Albumin/Globulin 1.16 Ratio Vancomycin Level 14.5 Trough Test 01/16/19 04:42 01/16/19 07:01 01/16/19 08:00 01/16/19 12:17 Lab Scanned BLOOD TRANSFUSIO Report N Bedside Glucose 152 166 Stool Occult NEGATIVE Blood Medications Medication Current Medications Amiodarone HCl (Cordarone) 200 mg DAILY PO Last administered on 01/16/19 08:47; Admin Dose 200 MG; Start 01/10/19 at 09:00 Clopidogrel Bisulfate (plaVIX) 75 mg DAILY PO Last administered on 01/16/19 08:47; Admin Dose 75 MG; Start 01/10/19 at 09:00 Digoxin (Digoxin) 0.125 mg DAILY@1300 PO Last administered on 01/16/19 12:53; Admin Dose 0.125 MG; Start 01/10/19 at 13:00 Gabapentin (Neurontin) 600 mg DAILY PO Last administered on 01/16/19 08:49; Admin Dose 600 MG; Start 01/10/19 at 09:00 Empaglifozin (Jardiance) 25 mg DAILY PO Last administered on 01/16/19 08:47; Admin Dose 25 MG; Start 01/10/19 at 09:00 Linagliptin (Tradjenta) 5 mg DAILY PO Last administered on 01/16/19 08:58; Admin Dose 5 MG; Start 01/10/19 at 09:00 Diagnostic Test (Pha) (Accu-Chek) 1 ea AC MEALS AND BEDTIME XX Last administered on 01/15/19 17:49; Admin Dose 1 EA; Start 01/09/19 at 21:00 Acetaminophen (Tylenol Tab) 650 mg Q4H PRN PO MILD PAIN(1-3)OR ELEVATED TEMP; Start 01/09/19 at 20:30 Acetaminophen/ Hydrocodone Bitart ([place] (5/325)) 1 tab Q4H PRN PO MODERATE PAIN LEVEL 4-6 Last administered on 01/15/19 08:43; Admin Dose 1 TAB; Start 01/09/19 at 20:30 Ondansetron HCl (Zofran Inj) 4 mg Q6H PRN IV NAUSEA AND/OR VOMITING Last administered on 01/14/19 19:59; Admin Dose 4 MG; Start 01/09/19 at 20:30 Diagnostic Test (Pha) (Accu-Chek) 1 ea 02 XX ; Start 01/10/19 at 02:00 Insulin Aspart (Novolog Insulin Pen) NOVOLOG *MILD* ALGORITHM WITH MEALS BEDTIME SC Last administered on 01/16/19 12:38; Admin Dose 1 UNIT; Start 01/09/19 at 22:30 Miscellaneous Information 1 ea NOTE XX ; Start 01/09/19 at 21:30 Glucose (Glutose) 15 gm Q15M PRN PO DECREASED GLUCOSE; Start 01/09/19 at 21:30 Glucose (Glutose) 22.5 gm Q15M PRN PO DECREASED GLUCOSE; Start 01/09/19 at 21:30 Dextrose (D50w Syringe) 25 ml Q15M PRN IV DECREASED GLUCOSE; Start 01/09/19 at 21:30 Dextrose (D50w Syringe) 50 ml Q15M PRN IV DECREASED GLUCOSE; Start 01/09/19 at 21:30 Glucagon (Glucagen) 1 mg Q15M PRN IM DECREASED GLUCOSE; Start 01/09/19 at 21:30 Glucose (Glutose) 15 gm Q15M PRN BUCCAL DECREASED GLUCOSE; Start 01/09/19 at 21:30 Insulin Glargine (Lantus) 18 units QHS SC Last administered on 01/15/19 21:21; Admin Dose 18 UNITS; Start 01/09/19 at 22:30 Carvedilol (Coreg) 3.125 mg BID PO Last administered on 01/16/19 08:57; Admin Dose 3.125 MG; Start 01/10/19 at 21:00 Vancomycin HCl (Vanco Iv Per Pharmacy) VANCOMYCIN PER PHARMACY PER PROTOCOL XX ; Start 01/11/19 at 02:30 Meropenem/Sodium Chloride 50 ml @ 100 mls/hr Q8 IVPB Last administered on 01/16/19 13:06; Admin Dose 100 MLS/HR; Start 01/11/19 at 19:30 Lisinopril (Zestril) 2.5 mg DAILY PO Last administered on 01/16/19 08:58; Admin Dose 2.5 MG; Start 01/13/19 at 09:00 Clindamycin HCl/ Dextrose 50 ml @ 50 mls/hr Q8 IVPB Last administered on 01/16/19 13:06; Admin Dose 50 MLS/HR; Start 01/12/19 at 22:00 Senna (Senokot) 1 tab DAILY PRN PO CONSTIPATION Last administered on 01/14/19 16:52; Admin Dose 1 TAB; Start 01/12/19 at 18:30 Docusate Sodium (Colace) 100 mg BID PRN PO CONSTIPATION Last administered on 01/14/19 16:52; Admin Dose 100 MG; Start 01/12/19 at 18:30 Neomycin/ Polymyxin/ Bacitracin (Neosporin Topical Oint) 1 applic DAILY TOP Last administered on 01/16/19 08:59; Admin Dose 1 APPLIC; Start 01/12/19 at 18:30 Acetaminophen/ Hydrocodone Bitart ([place] (10/325)) 1 tab Q4H PRN PO MODERATE PAIN LEVEL 4-6 Last administered on 01/16/19 13:07; Admin Dose 1 TAB; Start 01/13/19 at 21:00 Furosemide (Lasix) 20 mg DAILY PO Last administered on 01/16/19 08:48; Admin D ose 20 MG; Start 01/15/19 at 09:00 Phenylephrine HCl 250 ml @ 75 mls/hr TITRATE IV Last administered on 5/9/19at 08:38; Admin Dose 56.25 MLS/HR; Start 01/15/19 at 01:30 Morphine Sulfate (morphine) 2 mg Q4H PRN IV SEVERE PAIN LEVEL 7-10 Last administered on 01/16/19at 06:33; Admin Dose 2 MG; Start 01/15/19 at 20:30 Cyanocobalamin (Vitamin B12 Inj) 1,000 mcg DAILY IM Last administered on 01/16/19at 08:50; Admin Dose 1,000 MCG; Start 01/16/19 at 09:00 Vancomycin HCl 1.25 gm/Sodium Chloride 250 ml @ 83.333 mls/ hr Q12H IVPB ; Start 01/16/19 at 16:00 Pantoprazole (Protonix Tab) 40 mg DAILY@06 PO ; Start 01/17/19 at 06:00 BLANCO MAR NP January 16, 2019 14:55
[2019-01-16] MEDS: CEFTRIAXONE 1 GM/50 ML (PMX) 50 ML IVPB SCH (16:37)
[2019-01-16] MEDS: VANCOMYCIN HCL 1.25 GM in SOD CHLORIDE 0.9% 250 ML IVPB SCH (16:38)
[2019-01-16] MEDS: INSULIN GLARGINE [LANTus] (100 UNITS/ML) SYG SC SCH (20:47)
[2019-01-16] MEDS: metroNIDAZOLE 500 MG/NS (PMX) 100 ML IVPB SCH (21:45)
[2019-01-17] VITALS (20 sets, daily range): BP systolic 88–118; BP diastolic 53–89; PULSE 63–101; RESP 8–47
[2019-01-17] MEDS: HYDROCODONE/APAP (10/325) TAB PO PRN ×4 (00:22→22:11)
[2019-01-17] MEDS: ACCU-CHEK XX SCH ×5 (02:00→20:47)
[2019-01-17] MEDS: VANCOMYCIN HCL 1.25 GM in SOD CHLORIDE 0.9% 250 ML IVPB SCH ×2 (04:09→17:02)
[2019-01-17] MEDS: metroNIDAZOLE 500 MG/NS (PMX) 100 ML IVPB SCH ×3 (05:07→21:14)
[2019-01-17] MEDS: PANTOPRAZOLE (EC) 40 MG TAB PO SCH (05:07)
[2019-01-17] MEDS: LISINOPRIL 5 MG TAB PO SCH (09:00)
[2019-01-17] MEDS: GABAPENTIN 300 MG CAP PO SCH (09:06)
[2019-01-17] MEDS: EMPAGLIFLOZIN 10 MG TABLET PO SCH (09:07)
[2019-01-17] MEDS: AMIODARONE 200 MG TAB PO SCH (09:08)
[2019-01-17] MEDS: CLOPIDOGREL 75 MG TAB PO SCH (09:08)
[2019-01-17] MEDS: FUROSEMIDE 20 MG TAB PO SCH (09:09)
[2019-01-17] MEDS: LINAGLIPTIN 5 MG TABLET PO SCH (09:11)
[2019-01-17] MEDS: CYANOCOBALAMIN 1000 MCG INJ IM SCH (09:12)
[2019-01-17] MEDS: morphine 2 MG INJ IV PRN ×2 (09:13→17:51)
[2019-01-17] MEDS: NEOMYC/POLYMYX/BACIT 30 GM OINT TOP SCH (09:14)
[2019-01-17] MEDS: INSULIN ASPART [NOVOLOG] 3 ML PEN SC SCH ×5 (09:21→20:45)
--- NOTE | 2019-01-17 10:50 | PN ---
Date/Time of Note Date/Time of Note DATE: 01/17/19 TIME: 10:48 Assessment/Plan VTE Prophylaxis Risk score (from Ns)>0 risk: 5 SCD applied (from [facility] [place] No SCD contraindicated: other Pharmacological prophylaxis: other Pharm contraindication: other Lines/Catheters IV Catheter Type (from Nrsg): Central Line Central line still needed: Yes Urinary Cath still in place: No Assessment/Plan Assessment/Plan -Hypotension requiring pressors and ICU monitoring. -Drop in hemoglobin- SP 1 unit PRBC Hgb 7.8 tday - continue to monitor H&H - stool for OB.- Negative -Right heel necrotic wound. Status post debridement - Dr Black follows in oncology for Anemia - Dr. Mata is following in podiatry consultation. -Continue antibiotics per ID. Dr. Landa is following in infection disease consultation. -Chronic peripheral vascular disease, history of angioplasty x2. Dr. Sheppard is following in vascular surgery consultation. - Plan for a right pop DP bypass today -Coronary artery disease, status post coronary artery bypass graft. -Continue Plavix. -Cardiomyopathy with ejection fraction of 25%. Continue Coreg. -Dr. Foster is following in cardiology consultation. -Status post AICD. -Hx of Hypertension. -Diabetes hemoglobin A1c 7.6. Continue Lantus and NovoLog. -Right knee contusion and abrasion status post fall. - Status post evaluation by Dr. Zelaya and orthopedic surgery. No signs of fracture or dystrophic dislocation. Total critical care time spent 30 mins Further recommendations based on clinical course. Plan of care discussed with Dr. Mann. - NAD - C/O right heel pain ; ;effective pain control - Patient was scheduled for bypass today but Bypass is canceled 2/2 Low Hgb, ? sp AICD ; will be rescheduled once he has stabilized - tele transfer when bed available - no acute events reported last night dw staff Result Diagram: 01/17/19 0726 01/17/19 0726 Results 24hrs Laboratory Tests Test 01/16/19 12:17 01/16/19 16:39 01/16/19 20:44 01/17/19 02:01 Bedside Glucose 166 150 177 143 Test 01/17/19 07:26 01/17/19 08:46 White Blood Count 8.5 Red Blood Count 2.57 L Hemoglobin 7.8 L Hematocrit 23.6 L Mean Corpuscular 91.8 Volume Mean Corpuscular 30.4 Hemoglobin Mean Corpuscular 33.1 Hemoglobin Concent Red Cell 14.7 H Distribution Width Platelet Count 204 Mean Platelet Volume 11.3 H Immature 1.300 H Granulocytes % Neutrophils % 63.1 Lymphocytes % 24.0 Monocytes % 8.2 Eosinophils % 3.2 Basophils % 0.2 Nucleated Red Blood 0.0 Cells % Immature 0.110 H Granulocytes # Neutrophils # 5.3 Lymphocytes # 2.0 Monocytes # 0.7 Eosinophils # 0.3 Basophils # 0.0 Nucleated Red Blood 0.0 Cells # Sodium Level 138 Potassium Level 4.1 Chloride Level 104 Carbon Dioxide Level 25 Anion Gap 9 Blood Urea Nitrogen 18 # Creatinine 0.49 L Est Glomerular > 60 Filtrat Rate mL/min Glucose Level 125 Calcium Level 8.8 Bedside Glucose 143 Subjective 24 Hr Interval Summary Free Text/Dictation - NAD - C/O right heel pain ; ;effective pain control - Patient was scheduled for bypass today but Bypass is canceled 2/2 Low Hgb, ? sp AICD ; will be rescheduled once he has stabilized - tele transfer when bed available - no acute events reported last night dw staff Exam/Review of Systems Exam Vitals Vital Signs Date Temp Pulse Resp B/P (MAP) Pulse Ox O2 O2 Flow FiO2 Time Delivery Rate 01/17/19 63 08:00 01/17/19 97.9 16 104/68 100 Room Air 08:00 (80) 01/13/19 6.0 10:35 Intake and Output 01/16/19 01/16/19 01/17/19 1515:00 23:00 07:00 IntakeIntake Total 940 ml 1563.334 ml 203.333 ml OutputOutput Total 1100 ml 1593 ml 1025 ml BalanceBalance -160 ml -29.666 ml -821.667 ml Constitutional: alert, well developed, obese Head: normocephalic Eyes: nl lids, nl sclera ENMT: nl external ears & nose Neck: non-tender Respiratory: clear to auscultation Cardiovascular: nl pulses, other (s1s2) Gastrointestinal: soft, non-tender Musculoskeletal: range of motion, swelling Extremities: edema 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: nl speech, other (alert/responsive) Skin: other Lymph: nontender Results Results 24hrs Laboratory Tests Test 01/16/19 12:17 01/16/19 16:39 01/16/19 20:44 01/17/19 02:01 Bedside Glucose 166 150 177 143 Test 01/17/19 07:26 01/17/19 08:46 White Blood Count 8.5 Red Blood Count 2.57 L Hemoglobin 7.8 L Hematocrit 23.6 L Mean Corpuscular 91.8 Volume Mean Corpuscular 30.4 Hemoglobin Mean Corpuscular 33.1 Hemoglobin Concent Red Cell 14.7 H Distribution Width Platelet Count 204 Mean Platelet Volume 11.3 H Immature 1.300 H Granulocytes % Neutrophils % 63.1 Lymphocytes % 24.0 Monocytes % 8.2 Eosinophils % 3.2 Basophils % 0.2 Nucleated Red Blood 0.0 Cells % Immature 0.110 H Granulocytes # Neutrophils # 5.3 Lymphocytes # 2.0 Monocytes # 0.7 Eosinophils # 0.3 Basophils # 0.0 Nucleated Red Blood 0.0 Cells # Sodium Level 138 Potassium Level 4.1 Chloride Level 104 Carbon Dioxide Level 25 Anion Gap 9 Blood Urea Nitrogen 18 # Creatinine 0.49 L Est Glomerular > 60 Filtrat Rate mL/min Glucose Level 125 Calcium Level 8.8 Bedside Glucose 143 Medications Medication Current Medications Amiodarone HCl (Cordarone) 200 mg DAILY PO Last administered on 01/17/19 09:08; Admin Dose 200 MG; Start 01/10/19 at 09:00 Clopidogrel Bisulfate (plaVIX) 75 mg DAILY PO Last administered on 01/17/19 09:08; Admin Dose 75 MG; Start 01/10/19 at 09:00 Digoxin (Digoxin) 0.125 mg DAILY@1300 PO Last administered on 01/16/19 12:53; Admin Dose 0.125 MG; Start 01/10/19 at 13:00 Gabapentin (Neurontin) 600 mg DAILY PO Last administered on 01/17/19 09:06; Admin Dose 600 MG; Start 01/10/19 at 09:00 Empaglifozin (Jardiance) 25 mg DAILY PO Last administered on 01/17/19 09:07; Admin Dose 25 MG; Start 01/10/19 at 09:00 Linagliptin (Tradjenta) 5 mg DAILY PO Last administered on 01/17/19 09:11; Admin Dose 5 MG; Start 01/10/19 at 09:00 Diagnostic Test (Pha) (Accu-Chek) 1 ea AC MEALS AND BEDTIME XX Last administer ed on 01/15/19 17:49; Admin Dose 1 EA; Start 01/09/19 at 21:00 Acetaminophen (Tylenol Tab) 650 mg Q4H PRN PO MILD PAIN(1-3)OR ELEVATED TEMP; Start 01/09/19 at 20:30 Acetaminophen/ Hydrocodone Bitart ([place] (5/325)) 1 tab Q4H PRN PO MODERATE PAIN LEVEL 4-6 Last administered on 01/15/19 08:43; Admin Dose 1 TAB; Start 01/09/19 at 20:30 Ondansetron HCl (Zofran Inj) 4 mg Q6H PRN IV NAUSEA AND/OR VOMITING Last administered on 01/14/19 19:59; Admin Dose 4 MG; Start 01/09/19 at 20:30 Diagnostic Test (Pha) (Accu-Chek) 1 ea 02 XX ; Start 01/10/19 at 02:00 Insulin Aspart (Novolog Insulin Pen) NOVOLOG *MILD* ALGORITHM WITH MEALS BEDTIME SC Last administered on 01/17/19 09:21; Admin Dose 1 UNIT; Start 01/09/19 at 22:30 Miscellaneous Information 1 ea NOTE XX ; Start 01/09/19 at 21:30 Glucose (Glutose) 15 gm Q15M PRN PO DECREASED GLUCOSE; Start 01/09/19 at 21:30 Glucose (Glutose) 22.5 gm Q15M PRN PO DECREASED GLUCOSE; Start 01/09/19 at 21:30 Dextrose (D50w Syringe) 25 ml Q15M PRN IV DECREASED GLUCOSE; Start 01/09/19 at 21:30 Dextrose (D50w Syringe) 50 ml Q15M PRN IV DECREASED GLUCOSE; Start 01/09/19 at 21:30 Glucagon (Glucagen) 1 mg Q15M PRN IM DECREASED GLUCOSE; Start 01/09/19 at 21:30 Glucose (Glutose) 15 gm Q15M PRN BUCCAL DECREASED GLUCOSE; Start 01/09/19 at 21:30 Insulin Glargine (Lantus) 18 units QHS SC Last administered on 01/16/19 20:47; Admin Dose 18 UNITS; Start 01/09/19 at 22:30 Carvedilol (Coreg) 3.125 mg BID PO Last administered on 01/17/19 09:10; Admin Dose 3.125 MG; Start 01/10/19 at 21:00 Vancomycin HCl (Vanco Iv Per Pharmacy) VANCOMYCIN PER PHARMACY PER PROTOCOL XX ; Start 01/11/19 at 02:30 Lisinopril (Zestril) 2.5 mg DAILY PO Last administered on 01/16/19 08:58; Admi n Dose 2.5 MG; Start 01/13/19 at 09:00 Senna (Senokot) 1 tab DAILY PRN PO CONSTIPATION Last administered on 01/14/19 16:52; Admin Dose 1 TAB; Start 01/12/19 at 18:30 Docusate Sodium (Colace) 100 mg BID PRN PO CONSTIPATION Last administered on 01/14/19 16:52; Admin Dose 100 MG; Start 01/12/19 at 18:30 Neomycin/ Polymyxin/ Bacitracin (Neosporin Topical Oint) 1 applic DAILY TOP Last administered on 01/17/19 09:14; Admin Dose 1 APPLIC; Start 01/12/19 at 18:30 Acetaminophen/ Hydrocodone Bitart ([place] (10/325)) 1 tab Q4H PRN PO MODERATE PAIN LEVEL 4-6 Last administered on 01/17/19 00:22; Admin Dose 1 TAB; Start 01/13/19 at 21:00 Furosemide (Lasix) 20 mg DAILY PO Last administered on 01/17/19 09:09; Admin Dose 20 MG; Start 01/15/19 at 09:00 Phenylephrine HCl 250 ml @ 75 mls/hr TITRATE IV Last administered on 01/15/19 08:38; Admin Dose 56.25 MLS/HR; Start 01/15/19 at 01:30 Morphine Sulfate (morphine) 2 mg Q4H PRN IV SEVERE PAIN LEVEL 7-10 Last administered on 01/17/19 09:13; Admin Dose 2 MG; Start 01/15/19 at 20:30 Cyanocobalamin (Vitamin B12 Inj) 1,000 mcg DAILY IM Last administered on 01/17/19 09:12; Admin Dose 1,000 MCG; Start 01/16/19 at 09:00 Vancomycin HCl 1.25 gm/Sodium Chloride 250 ml @ 83.333 mls/ hr Q12H IVPB Last administered on 5/11/19at 04:09; Admin Dose 83.333 MLS/HR; Start 01/16/19 at 16:00 Pantoprazole (Protonix Tab) 40 mg DAILY@06 PO Last administered on 01/17/19 05:07; Admin Dose 40 MG; Start 01/17/19 at 06:00 Ceftriaxone Sodium 50 ml @ 100 mls/hr Q24H IVPB Last administered on 01/16/19at 16:37; Admin Dose 100 MLS/HR; Start 01/16/19 at 16:00 Metronidazole 100 ml @ 100 mls/hr Q8 IVPB Last administered on 01/17/19 05:07; Admin Dose 100 MLS/HR; Start 01/16/19 at 22:00 MARTINE PUENTES January 17, 2019 10:50
--- NOTE | 2019-01-17 12:50 | CONS ---
Consult Date/Type/Reason Admit Date/Time January 09, 2019 at 18:17 Initial Consult Date 01/10/19 Requesting Provider: KRISTIN PRYOR MD Date/Time of Note DATE: 01/17/19 TIME: 12:48 Subjective NO acute events - BP in good range - no CP now - in a chair now - surgical intervention postponed now. ROS: No fever, no chills, no nausea, no vomiting, no diarrhea/constipation No recent weight changes No chest pain, no PND, no orthopnea - mild SOB,better now No dizziness, blurred vision No thirst, no heat or cold intolerance Objective Vitals Vital Signs Date Temp Pulse Resp B/P (MAP) Pulse Ox O2 O2 Flow FiO2 Time Delivery Rate 01/17/19 63 08:00 01/17/19 97.9 16 104/68 100 Room Air 08:00 (80) 01/13/19 6.0 10:35 Intake and Output 01/16/19 01/16/19 01/17/19 1515:00 23:00 07:00 IntakeIntake Total 940 ml 1563.334 ml 203.333 ml OutputOutput Total 1100 ml 1593 ml 1025 ml BalanceBalance -160 ml -29.666 ml -821.667 ml Exam General: WN/WD/NAD, AOx 3 HEENT: Unicetric/atraumatic/EOMI (follows commands) NECK: JVD elevated, no thyromegaly Lymph: no lymphadenopathy HEART: regular with no S3, II/ systolic murmur at apex, PMI L LUNGS: Coarse sounds ABD: soft, NT, ND, +BS : Intact Neuro: non focal SKIN: chronic changes EXT: trace edema, dressing on Results/Medications Result Diagram: 01/17/1972501/17/19 07 Results 24 hrs Laboratory Tests Test 01/16/19 16:39 01/16/19 20:44 01/17/19 02:01 01/17/19 07:26 Bedside Glucose 150 177 143 White Blood Count 8.5 Red Blood Count 2.57 L Hemoglobin 7.8 L Hematocrit 23.6 L Mean Corpuscular 91.8 Volume Mean Corpuscular 30.4 Hemoglobin Mean Corpuscular 33.1 Hemoglobin Concent Red Cell 14.7 H Distribution Width Platelet Count 204 Mean Platelet Volume 11.3 H Immature 1.300 H Granulocytes % Neutrophils % 63.1 Lymphocytes % 24.0 Monocytes % 8.2 Eosinophils % 3.2 Basophils % 0.2 Nucleated Red Blood 0.0 Cells % Immature 0.110 H Granulocytes # Neutrophils # 5.3 Lymphocytes # 2.0 Monocytes # 0.7 Eosinophils # 0.3 Basophils # 0.0 Nucleated Red Blood 0.0 Cells # Sodium Level 138 Potassium Level 4.1 Chloride Level 104 Carbon Dioxide Level 25 Anion Gap 9 Blood Urea Nitrogen 18 # Creatinine 0.49 L Est Glomerular > 60 Filtrat Rate mL/min Glucose Level 125 Calcium Level 8.8 Test 01/17/19 08:46 01/17/19 12:30 Bedside Glucose 143 164 Home Meds Reported Medications Amiodarone Hcl* (Amiodarone Hcl*) 200 Mg Tablet, 200 MG PO DAILY, #30 TAB 01/09/19 Digoxin* (Digitek*) 125 Mcg Tablet, 0.125 MG PO DAILY, TAB 01/09/19 Rivaroxaban* (Xarelto*) 20 Mg Tablet, 20 MG PO WITH DINNER, TAB 01/09/19 Clopidogrel Bisulfate* (Clopidogrel Bisulfate*) 75 Mg Tablet, 75 MG PO DAILY, #30 TAB 01/09/19 Empagliflozin (Jardiance) 25 Mg Tablet, 25 MG PO DAILY, TAB 01/09/19 Insulin Glargine,Hum.rec.anlog (Basaglar Kwikpen U-100) 100 Unit/1 Ml Insuln.pen, 18 UNIT SC QHS, EA 01/09/19 Sulfamethoxazole/Trimethoprim* (Bactrim Ds* Tablet) 1 Each Tablet, 1 TAB PO BID, TAB FOR 10 DAYS,START TAKING 01/06/19 01/09/19 Tapentadol Hcl (Nucynta) 100 Mg Tablet, 100 MG PO BID, TAB 01/09/19 Gabapentin* (Gabapentin*) 600 Mg Tablet, 600 MG PO DAILY, #60 TAB 01/09/19 Metformin Hcl* (Metformin Hcl*) 1,000 Mg Tablet, 1000 MG PO WITH BREAKFAST DINNE, #60 TAB 01/09/19 Medications Current Medications Amiodarone HCl (Cordarone) 200 mg DAILY PO Last administered on 01/17/19at 09:08; Admin Dose 200 MG; Start 01/10/19 at 09:00 Clopidogrel Bisulfate (plaVIX) 75 mg DAILY PO Last administered on 01/17/19 09:08; Admin Dose 75 MG; Start 01/10/19 at 09:00 Digoxin (Digoxin) 0.125 mg DAILY@1300 PO Last administered on 01/16/19 12:53; Admin Dose 0.125 MG; Start 01/10/19 at 13:00 Gabapentin (Neurontin) 600 mg DAILY PO Last administered on 01/17/19 09:06; Admin Dose 600 MG; Start 01/10/19 at 09:00 Empaglifozin (Jardiance) 25 mg DAILY PO Last administered on 01/17/19 09:07; Admin Dose 25 MG; Start 01/10/19 at 09:00 Linagliptin (Tradjenta) 5 mg DAILY PO Last administered on 01/17/19 09:11; Admin Dose 5 MG; Start 01/10/19 at 09:00 Diagnostic Test (Pha) (Accu-Chek) 1 ea AC MEALS AND BEDTIME XX Last administered on 01/15/19 17:49; Admin Dose 1 EA; Start 01/09/19 at 21:00 Acetaminophen (Tylenol Tab) 650 mg Q4H PRN PO MILD PAIN(1-3)OR ELEVATED TEMP; Start 01/09/19 at 20:30 Acetaminophen/ Hydrocodone Bitart ([place] (5/325)) 1 tab Q4H PRN PO MODERATE PAIN LEVEL 4-6 Last administered on 01/15/19 08:43; Admin Dose 1 TAB; Start 01/09/19 at 20:30 Ondansetron HCl (Zofran Inj) 4 mg Q6H PRN IV NAUSEA AND/OR VOMITING Last administered on 01/14/19 19:59; Admin Dose 4 MG; Start 01/09/19 at 20:30 Diagnostic Test (Pha) (Accu-Chek) 1 ea 02 XX ; Start 01/10/19 at 02:00 Insulin Aspart (Novolog Insulin Pen) NOVOLOG *MILD* ALGORITHM WITH MEALS BEDTIME SC Last administered on 01/17/19 12:33; Admin Dose 1 UNIT; Start 01/09/19 at 22:30 Miscellaneous Information 1 ea NOTE XX ; Start 01/09/19 at 21:30 Glucose (Glutose) 15 gm Q15M PRN PO DECREASED GLUCOSE; Start 01/09/19 at 21:30 Glucose (Glutose) 22.5 gm Q15M PRN PO DECREASED GLUCOSE; Start 01/09/19 at 21:30 Dextrose (D50w Syringe) 25 ml Q15M PRN IV DECREASED GLUCOSE; Start 01/09/19 at 21:30 Dextrose (D50w Syringe) 50 ml Q15M PRN IV DECREASED GLUCOSE; Start 01/09/19 at 21:30 Glucagon (Glucagen) 1 mg Q15M PRN IM DECREASED GLUCOSE; Start 01/09/19 at 21:30 Glucose (Glutose) 15 gm Q15M PRN BUCCAL DECREASED GLUCOSE; Start 01/09/19 at 21:30 Insulin Glargine (Lantus) 18 units QHS SC Last administered on 01/16/19 20:47; Admin Dose 18 UNITS; Start 01/09/19 at 22:30 Carvedilol (Coreg) 3.125 mg BID PO Last administered on 01/17/19 09:10; Admin Dose 3.125 MG; Start 01/10/19 at 21:00 Vancomycin HCl (Vanco Iv Per Pharmacy) VANCOMYCIN PER PHARMACY PER PROTOCOL XX ; Start 01/11/19 at 02:30 Lisinopril (Zestril) 2.5 mg DAILY PO Last administered on 01/16/19 08:58; Admin Dose 2.5 MG; Start 01/13/19 at 09:00 Senna (Senokot) 1 tab DAILY PRN PO CONSTIPATION Last administered on 01/14/19 16:52; Admin Dose 1 TAB; Start 01/12/19 at 18:30 Docusate Sodium (Colace) 100 mg BID PRN PO CONSTIPATION Last administered on 01/14/19 16:52; Admin Dose 100 MG; Start 01/12/19 at 18:30 Neomycin/ Polymyxin/ Bacitracin (Neosporin Topical Oint) 1 applic DAILY TOP Last administered on 01/17/19 09:14; Admin Dose 1 APPLIC; Start 01/12/19 at 18:30 Acetaminophen/ Hydrocodone Bitart ([place] (10/325)) 1 tab Q4H PRN PO MODERATE PAIN LEVEL 4-6 Last administered on 01/17/19 11:19; Admin Dose 1 TAB; Start 01/13/19 at 21:00 Furosemide (Lasix) 20 mg DAILY PO Last administered on 01/17/19 09:09; Admin Dose 20 MG; Start 01/15/19 at 09:00 Morphine Sulfate (morphine) 2 mg Q4H PRN IV SEVERE PAIN LEVEL 7-10 Last administered on 01/17/19 09:13; Admin Dose 2 MG; Start 01/15/19 at 20:30 Cyanocobalamin (Vitamin B12 Inj) 1,000 mcg DAILY IM Last administered on 01/17/19 09:12; Admin Dose 1,000 MCG; Start 01/16/19 at 09:00 Vancomycin HCl 1.25 gm/Sodium Chloride 250 ml @ 83.333 mls/ hr Q12H IVPB Last administered on 01/17/19 04:09; Admin Dose 83.333 MLS/HR; Start 01/16/19 at 16:00 Pantoprazole (Protonix Tab) 40 mg DAILY@06 PO Last administered on 01/17/19 05:07; Admin Dose 40 MG; Start 01/17/19 at 06:00 Ceftriaxone Sodium 50 ml @ 100 mls/hr Q24H IVPB Last administered on 01/16/19 16:37; Admin Dose 100 MLS/HR; Start 01/16/19 at 16:00 Metronidazole 100 ml @ 100 mls/hr Q8 IVPB Last administered on 01/17/19 05:07; Admin Dose 100 MLS/HR; Start 01/16/19 at 22:00 Assessment/Plan Hospital Course (Demo Recall) 1.Pre-op for peripheral bypass surgery. Lexiscan with no ischemia/+scar EF 28%. Echo EF 25%. OK to proceed to surgery at moderate CV risk - stable now - on hold for now - con't wound care. 2.Cardiomyopathy with low EF-severely depressed by echo this admit - mild CHF, con't gentle diuresis - stable fluidsatus. 3.HTN - well Rx - on therapy now - in good range now. 4.HL 5.Non-healing LE ulcer - in bandage, will follow - con't wound care. 6.PAD-severe s/p prior [employer] 7.DM - on meds, keep euglycemic 8. A. Fib - in sinus now, paroxysmal - on amio - off anti-coag with low H/H MIGUEL WADE MD January 17, 2019 12:50
--- NOTE | 2019-01-17 13:59 | CONS ---
[facility] HCIS Consult Follow-up Patient Name: Humble Zayas Unit Number: [id number] Date of : 1955 Patient Status: Admitted Inpatient Attending Doctor: Kristin Pryor MD Edit: CARMITA GARCIA M.D. on 01/19/19 @ 03:19 Jose: I discussed the management with PHOEBE Hutchins and agree Assessment/Plan Assessment/Plan Hospital Course (Demo Recall) - polymicrobial infection of non-healing ulcer of R heel. CT on 01/10/2019 did not show evidence of OM. ESR 26 on 01/09/2019 and 37 on 01/12/2019; superficial wound cx Pseudomonas, E. Coli, Enterococcus (isolated from broth only), scant Proteus, and scant CoNS - s/p Debridement of the right calcaneal ulceration 01/13/2019; intraop cx grew E. Coli, Proteus, and Enterococcus - chronic wound of R heel, in the past the wound culture grew E. coli - h/o OM of R foot, h/o 6 weeks of IV vancomycin and ceftriaxone in 2018. Pt remembers it was a "Staph infection." - trauma to R knee - anemia requiring PRBC - PAF - CAD s/p CABG - HTN - CM with EF 25% - h/o AICD placement - PVD - h/o aortogram, RLE runoff and percutaneous angioplasty of the posterior tibial artery and the anterior tibial artery in 10/2018 - DM - Hgb A1c 7.6% - HLD associated with DM Recommendations: - Change Ceftriaxone to Cefepime (restart 01/17/2019-) to also cover Pseudomonas - Continue IV vancomycin (01/11/2019-) - Continue Flagyl IV (01/16/19 -) - F/u with micro: Unasyn S to E.coli and P.mirabilis from 5/7/19 wound cx - ordered - Consider picc line - Will likely require 4-6 weeks abx - S/p clindamycin and meropenem (01/11/2019-01/16/19) Management d/w patient and with Dr. Garcia Critical care time spent: 40 min Consultation Date/Type/Reason Admit Date/Time January 09, 2019 at 18:17 Initial Consult Date 01/16/19 Type of Consult Infectious Disease Requesting Provider: KRISTIN PRYOR MD Date/Time of Note DATE: 01/17/19 TIME: 13:55 24 HR Interval Summary Free Text/Dictation RLE bypass was cancelled d/t anemia and hypotension requiring short term pressor support. Pt will likely transfer to telemetry per d/w [employer]. States R foot pain is tolerable after getting [place]. Currently rates pain 4- 5/10. Denies fever, chills, SOB, CP, n/v/d. Exam/Review of Systems Exam Vitals Vital Signs Date Temp Pulse Resp B/P (MAP) Pulse Ox O2 O2 Flow FiO2 Time Delivery Rate 01/17/19 70 12:00 01/17/19 97.9 16 104/68 100 Room Air 08:00 (80) 01/13/19 6.0 10:35 Intake and Output 01/16/19 01/16/19 01/17/19 1515:00 23:00 07:00 IntakeIntake Total 940 ml 1563.334 ml 203.333 ml OutputOutput Total 1100 ml 1593 ml 1025 ml BalanceBalance -160 ml -29.666 ml -821.667 ml Constitutional: alert, oriented, well developed, obese, other (sitting in chair in ICU in NAD) Psych: no complaints, nl mood/affect Head: normocephalic, atraumatic Eyes: nl conjunctiva, nl sclera ENMT: nl external ears & nose, nl nasal mucosa & septum, mucosa pink and moist Neck: supple, non-tender Respiratory: clear to auscultation, normal air movement, other (on room air) Cardiovascular: regular rate and rhythm, edema (R foot) Gastrointestinal: soft, non-tender, bowel sounds; No distended Genitourinary - Male: other (No Avelar) Musculoskeletal: swelling (R foot); No nl gait and stance Extremities: normal pulses, edema (R foot), other (R foot wrapped with coban and GABI wrap c/d/i) 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: nl mental status, nl speech Skin: nl turgor Results Result Diagram: 01/17/19 0726 01/17/19 0726 Results 24hrs Laboratory Tests Test 01/16/19 16:39 01/16/19 20:44 01/17/19 02:01 01/17/19 07:26 Bedside Glucose 150 177 143 White Blood Count 8.5 Red Blood Count 2.57 L Hemoglobin 7.8 L Hematocrit 23.6 L Mean Corpuscular 91.8 Volume Mean Corpuscular 30.4 Hemoglobin Mean Corpuscular 33.1 Hemoglobin Concent Red Cell 14.7 H Distribution Width Platelet Count 204 Mean Platelet Volume 11.3 H Immature 1.300 H Granulocytes % Neutrophils % 63.1 Lymphocytes % 24.0 Monocytes % 8.2 Eosinophils % 3.2 Basophils % 0.2 Nucleated Red Blood 0.0 Cells % Immature 0.110 H Granulocytes # Neutrophils # 5.3 Lymphocytes # 2.0 Monocytes # 0.7 Eosinophils # 0.3 Basophils # 0.0 Nucleated Red Blood 0.0 Cells # Sodium Level 138 Potassium Level 4.1 Chloride Level 104 Carbon Dioxide Level 25 Anion Gap 9 Blood Urea Nitrogen 18 # Creatinine 0.49 L Est Glomerular > 60 Filtrat Rate mL/min Glucose Level 125 Calcium Level 8.8 Test 01/17/19 08:46 01/17/19 12:30 Bedside Glucose 143 164 Imaging Imaging CXR 01/15/2019: 1. Right subclavian central venous line tip is over the superior right atrium. The line could be pulled back 2 cm to the inferior SVC. Negative for a postprocedure pneumothorax. 2. Left subclavian pacemaker / AICD and postsurgical changes with sternal wires. Medications Medication Current Medications Amiodarone HCl (Cordarone) 200 mg DAILY PO Last administered on 01/17/19at 09:08; Admin Dose 200 MG; Start 01/10/19 at 09:00 Clopidogrel Bisulfate (plaVIX) 75 mg DAILY PO Last administered on 01/17/19at 09:08; Admin Dose 75 MG; Start 01/10/19 at 09:00 Digoxin (Digoxin) 0.125 mg DAILY@1300 PO Last administered on 01/16/19at 12:53; Admin Dose 0.125 MG; Start 01/10/19 at 13:00 Gabapentin (Neurontin) 600 mg DAILY PO Last administered on 01/17/19 09:06; Admin Dose 600 MG; Start 01/10/19 at 09:00 Empaglifozin (Jardiance) 25 mg DAILY PO Last administered on 01/17/19 09:07; Admin Dose 25 MG; Start 01/10/19 at 09:00 Linagliptin (Tradjenta) 5 mg DAILY PO Last administered on 01/17/19 09:11; Admin Dose 5 MG; Start 01/10/19 at 09:00 Diagnostic Test (Pha) (Accu-Chek) 1 ea AC MEALS AND BEDTIME XX Last administered on 01/15/19 17:49; Admin Dose 1 EA; Start 01/09/19 at 21:00 Acetaminophen (Tylenol Tab) 650 mg Q4H PRN PO MILD PAIN(1-3)OR ELEVATED TEMP; Start 01/09/19 at 20:30 Acetaminophen/ Hydrocodone Bitart ([place] (5/325)) 1 tab Q4H PRN PO MODERATE PAIN LEVEL 4-6 Last administered on 01/15/19 08:43; Admin Dose 1 TAB; Start 01/09/19 at 20:30 Ondansetron HCl (Zofran Inj) 4 mg Q6H PRN IV NAUSEA AND/OR VOMITING Last administered on 01/14/19 19:59; Admin Dose 4 MG; Start 01/09/19 at 20:30 Diagnostic Test (Pha) (Accu-Chek) 1 ea 02 XX ; Start 01/10/19 at 02:00 Insulin Aspart (Novolog Insulin Pen) NOVOLOG *MILD* ALGORITHM WITH MEALS BEDTIME SC Last administered on 01/17/19 12:33; Admin Dose 1 UNIT; Start 01/09/19 at 22:30 Miscellaneous Information 1 ea NOTE XX ; Start 01/09/19 at 21:30 Glucose (Glutose) 15 gm Q15M PRN PO DECREASED GLUCOSE; Start 01/09/19 at 21:30 Glucose (Glutose) 22.5 gm Q15M PRN PO DECREASED GLUCOSE; Start 01/09/19 at 21:30 Dextrose (D50w Syringe) 25 ml Q15M PRN IV DECREASED GLUCOSE; Start 01/09/19 at 21:30 Dextrose (D50w Syringe) 50 ml Q15M PRN IV DECREASED GLUCOSE; Start 01/09/19 at 21:30 Glucagon (Glucagen) 1 mg Q15M PRN IM DECREASED GLUCOSE; Start 01/09/19 at 21:30 Glucose (Glutose) 15 gm Q15M PRN BUCCAL DECREASED GLUCOSE; Start 01/09/19 at 21:30 Insulin Glargine (Lantus) 18 units QHS SC Last administered on 01/16/19 20:47; Admin Dose 18 UNITS; Start 01/09/19 at 22:30 Carvedilol (Coreg) 3.125 mg BID PO Last administered on 01/17/19 09:10; Admin Dose 3.125 MG; Start 01/10/19 at 21:00 Vancomycin HCl (Vanco Iv Per Pharmacy) VANCOMYCIN PER PHARMACY PER PROTOCOL XX ; Start 01/11/19 at 02:30 Lisinopril (Zestril) 2.5 mg DAILY PO Last administered on 01/16/19 08:58; Admin Dose 2.5 MG; Start 01/13/19 at 09:00 Senna (Senokot) 1 tab DAILY PRN PO CONSTIPATION Last administered on 01/14/19 16:52; Admin Dose 1 TAB; Start 01/12/19 at 18:30 Docusate Sodium (Colace) 100 mg BID PRN PO CONSTIPATION Last administered on 01/14/19 16:52; Admin Dose 100 MG; Start 01/12/19 at 18:30 Neomycin/ Polymyxin/ Bacitracin (Neosporin Topical Oint) 1 applic DAILY TOP Last administered on 01/17/19 09:14; Admin Dose 1 APPLIC; Start 01/12/19 at 18:30 Acetaminophen/ Hydrocodone Bitart ([place] (10/325)) 1 tab Q4H PRN PO MODERATE PA IN LEVEL 4-6 Last administered on 01/17/19 11:19; Admin Dose 1 TAB; Start 01/13/19 at 21:00 Furosemide (Lasix) 20 mg DAILY PO Last administered on 01/17/19 09:09; Admin Dose 20 MG; Start 01/15/19 at 09:00 Morphine Sulfate (morphine) 2 mg Q4H PRN IV SEVERE PAIN LEVEL 7-10 Last administered on 01/17/19 09:13; Admin Dose 2 MG; Start 01/15/19 at 20:30 Cyanocobalamin (Vitamin B12 Inj) 1,000 mcg DAILY IM Last administered on 01/17/19at 09:12; Admin Dose 1,000 MCG; Start 01/16/19 at 09:00 Vancomycin HCl 1.25 gm/Sodium Chloride 250 ml @ 83.333 mls/ hr Q12H IVPB Last administered on 01/17/19at 04:09; Admin Dose 83.333 MLS/HR; Start 01/16/19 at 16:00 Pantoprazole (Protonix Tab) 40 mg DAILY@06 PO Last administered on 01/17/19at 05:07; Admin Dose 40 MG; Start 01/17/19 at 06:00 Ceftriaxone Sodium 50 ml @ 100 mls/hr Q24H IVPB Last administered on 01/16/19at 16:37; Admin Dose 100 MLS/HR; Start 01/16/19 at 16:00 Metronidazole 100 ml @ 100 mls/hr Q8 IVPB Last administered on 01/17/19at 05:07; Admin Dose 100 MLS/HR; Start 01/16/19 at 22:00 LE HUTCHINS NP January 17, 2019 13:59
[2019-01-17] MEDS: DIGOXIN 0.125 MG TAB PO SCH (14:25)
--- NOTE | 2019-01-17 15:28 | CONS ---
Assessment/Plan Assessment/Plan Assessment/Plan (Daily) 63-year-old gentleman with history of coronary artery disease, status post CABG, also status post AICD placement, hypertension, diabetes, peripheral vascular disease, status post aortogram and right lower extremity runoff and percutaneous angioplasty of the posterior tibial artery and anterior tibial artery in 10/2018. Patient has a worsening RLE heel wound and thus admitted for sepsis. Patient with acute 3-4 gram drop in Hgb since admission and thus consulted for anemia. # Anemia-normocytic -Hgb stable at this time. -Stool occult was negative. -This patient without hemolysis there is still concern about retroperitoneal or intra-abdominal bleed as he was lovenox and xarelto prior to hospitaliztion. -Still recommend CT A/P with contrast to rule out bleed. -Transfuse to keep hgb > 7. Patient had a transfusion two days ago. -Iron studies are normal but vitamin b12 is low and thus initiated vitamin b12 1000 mcg weekly. -I do not think there is a bone marrow disorder or blood disorder causing anemia and think this is highly due to blood loss. Thank you to Dr. Mann for allowing me to participate in the care of this patient. I am covering Dr. Hancock this weekend. Consultation Date/Type/Reason Admit Date/Time January 09, 2019 at 18:17 Initial Consult Date 01/16/19 Type of Consult Hematology/Oncology Requesting Provider: KRISTIN MANN MD Date/Time of Note DATE: 01/17/19 TIME: 15:22 24 HR Interval Summary Free Text/Dictation Patient states that he is doing better but he still has pain in his foot. He denies any dark stools. The stool occult was negative. His hgb is stable and energy level is stable. Constitutional: no complaints Exam/Review of Systems Exam Vitals Vital Signs Date Temp Pulse Resp B/P (MAP) Pulse Ox O2 O2 Flow FiO2 Time Delivery Rate 01/17/19 70 12:00 01/17/19 97.9 16 104/68 100 Room Air 08:00 (80) 01/13/19 6.0 10:35 Intake and Output 01/16/19 01/16/19 01/17/19 1515:00 23:00 07:00 IntakeIntake Total 940 ml 1563.334 ml 203.333 ml OutputOutput Total 1100 ml 1593 ml 1025 ml BalanceBalance -160 ml -29.666 ml -821.667 ml Constitutional: alert, oriented, well developed Psych: no complaints, nl mood/affect Head: normocephalic, atraumatic Eyes: nl conjunctiva, EOMI, nl lids, nl sclera, PERRL ENMT: nl external ears & nose, nl lips & teeth, nl nasal mucosa & septum Neck: supple, non-tender Respiratory: clear to auscultation, normal air movement Cardiovascular: regular rate and rhythm, nl pulses Gastrointestinal: soft, nl liver, spleen, non-tender Musculoskeletal: nl extremities to inspection, nl gait and stance Extremities: other (heel ulcer and currently wrapped. ) 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: PREP MANAGER II-XII intact, nl mental status, nl speech, nl strength Skin: nl turgor; No rash or lesions Lymph: nl lymph nodes Results Result Diagram: 01/17/19 0726 01/17/19 0726 Results 24hrs Laboratory Tests Test 01/16/19 16:39 01/16/19 20:44 01/17/19 02:01 01/17/19 07:26 Bedside Glucose 150 177 143 White Blood Count 8.5 Red Blood Count 2.57 L Hemoglobin 7.8 L Hematocrit 23.6 L Mean Corpuscular 91.8 Volume Mean Corpuscular 30.4 Hemoglobin Mean Corpuscular 33.1 Hemoglobin Concent Red Cell 14.7 H Distribution Width Platelet Count 204 Mean Platelet Volume 11.3 H Immature 1.300 H Granulocytes % Neutrophils % 63.1 Lymphocytes % 24.0 Monocytes % 8.2 Eosinophils % 3.2 Basophils % 0.2 Nucleated Red Blood 0.0 Cells % Immature 0.110 H Granulocytes # Neutrophils # 5.3 Lymphocytes # 2.0 Monocytes # 0.7 Eosinophils # 0.3 Basophils # 0.0 Nucleated Red Blood 0.0 Cells # Sodium Level 138 Potassium Level 4.1 Chloride Level 104 Carbon Dioxide Level 25 Anion Gap 9 Blood Urea Nitrogen 18 # Creatinine 0.49 L Est Glomerular > 60 Filtrat Rate mL/min Glucose Level 125 Calcium Level 8.8 Test 01/17/19 08:46 01/17/19 12:30 Bedside Glucose 143 164 Medications Medication Current Medications Amiodarone HCl (Cordarone) 200 mg DAILY PO Last administered on 01/17/19at 09:08; Admin Dose 200 MG; Start 01/10/19 at 09:00 Clopidogrel Bisulfate (plaVIX) 75 mg DAILY PO Last administered on 01/17/19 09:08; Admin Dose 75 MG; Start 01/10/19 at 09:00 Digoxin (Digoxin) 0.125 mg DAILY@1300 PO Last administered on 01/17/19 14:25; Admin Dose 0.125 MG; Start 01/10/19 at 13:00 Gabapentin (Neurontin) 600 mg DAILY PO Last administered on 01/17/19 09:06; Admin Dose 600 MG; Start 01/10/19 at 09:00 Empaglifozin (Jardiance) 25 mg DAILY PO Last administered on 01/17/19 09:07; Admin Dose 25 MG; Start 01/10/19 at 09:00 Linagliptin (Tradjenta) 5 mg DAILY PO Last administered on 01/17/19 09:11; Admin Dose 5 MG; Start 01/10/19 at 09:00 Diagnostic Test (Pha) (Accu-Chek) 1 ea AC MEALS AND BEDTIME XX Last administered on 01/15/19 17:49; Admin Dose 1 EA; Start 01/09/19 at 21:00 Acetaminophen (Tylenol Tab) 650 mg Q4H PRN PO MILD PAIN(1-3)OR ELEVATED TEMP; Start 01/09/19 at 20:30 Acetaminophen/ Hydrocodone Bitart ([place] (5/325)) 1 tab Q4H PRN PO MODERATE PAIN LEVEL 4-6 Last administered on 01/15/19 08:43; Admin Dose 1 TAB; Start 01/09/19 at 20:30 Ondansetron HCl (Zofran Inj) 4 mg Q6H PRN IV NAUSEA AND/OR VOMITING Last administered on 01/14/19 19:59; Admin Dose 4 MG; Start 01/09/19 at 20:30 Diagnostic Test (Pha) (Accu-Chek) 1 ea 02 XX ; Start 01/10/19 at 02:00 Insulin Aspart (Novolog Insulin Pen) NOVOLOG *MILD* ALGORITHM WITH MEALS BEDTIME SC Last administered on 01/17/19 12:33; Admin Dose 1 UNIT; Start 01/09/19 at 22:30 Miscellaneous Information 1 ea NOTE XX ; Start 01/09/19 at 21:30 Glucose (Glutose) 15 gm Q15M PRN PO DECREASED GLUCOSE; Start 01/09/19 at 21:30 Glucose (Glutose) 22.5 gm Q15M PRN PO DECREASED GLUCOSE; Start 01/09/19 at 21:30 Dextrose (D50w Syringe) 25 ml Q15M PRN IV DECREASED GLUCOSE; Start 01/09/19 at 21:30 Dextrose (D50w Syringe) 50 ml Q15M PRN IV DECREASED GLUCOSE; Start 01/09/19 at 21:30 Glucagon (Glucagen) 1 mg Q15M PRN IM DECREASED GLUCOSE; Start 01/09/19 at 21:30 Glucose (Glutose) 15 gm Q15M PRN BUCCAL DECREASED GLUCOSE; Start 01/09/19 at 21:30 Insulin Glargine (Lantus) 18 units QHS SC Last administered on 01/16/19 20:47; Admin Dose 18 UNITS; Start 01/09/19 at 22:30 Carvedilol (Coreg) 3.125 mg BID PO Last administered on 01/17/19 09:10; Admin Dose 3.125 MG; Start 01/10/19 at 21:00 Vancomycin HCl (Vanco Iv Per Pharmacy) VANCOMYCIN PER PHARMACY PER PROTOCOL XX ; Start 01/11/19 at 02:30 Lisinopril (Zestril) 2.5 mg DAILY PO Last administered on 01/16/19 08:58; Admin Dose 2.5 MG; Start 01/13/19 at 09:00 Senna (Senokot) 1 tab DAILY PRN PO CONSTIPATION Last administered on 01/14/19 16:52; Admin Dose 1 TAB; Start 01/12/19 at 18:30 Docusate Sodium (Colace) 100 mg BID PRN PO CONSTIPATION Last administered on 01/14/19 16:52; Admin Dose 100 MG; Start 01/12/19 at 18:30 Neomycin/ Polymyxin/ Bacitracin (Neosporin Topical Oint) 1 applic DAILY TOP Last administered on 01/17/19 09:14; Admin Dose 1 APPLIC; Start 01/12/19 at 18:30 Acetaminophen/ Hydrocodone Bitart ([place] (10)) 1 tab Q4H PRN PO MODERATE PAIN LEVEL 4-6 Last administered on 01/17/19 11:19; Admin Dose 1 TAB; Start 01/13/19 at 21:00 Furosemide (Lasix) 20 mg DAILY PO Last administered on 01/17/19 09:09; Admin Dose 20 MG; Start 01/15/19 at 09:00 Morphine Sulfate (morphine) 2 mg Q4H PRN IV SEVERE PAIN LEVEL 7-10 Last administered on 01/17/19 09:13; Admin Dose 2 MG; Start 01/15/19 at 20:30 Cyanocobalamin (Vitamin B12 Inj) 1,000 mcg DAILY IM Last administered on 01/17/19 09:12; Admin Dose 1,000 MCG; Start 01/16/19 at 09:00 Vancomycin HCl 1.25 gm/Sodium Chloride 250 ml @ 83.333 mls/ hr Q12H IVPB Last administered on 01/17/19 04:09; Admin Dose 83.333 MLS/HR; Start 01/16/19 at 16:00 Pantoprazole (Protonix Tab) 40 mg DAILY@06 PO Last administered on 01/17/19 05:07; Admin Dose 40 MG; Start 01/17/19 at 06:00 Ceftriaxone Sodium 50 ml @ 100 mls/hr Q24H IVPB Last administered on 01/16/19 16:37; Admin Dose 100 MLS/HR; Start 01/16/19 at 16:00 Metronidazole 100 ml @ 100 mls/hr Q8 IVPB Last administered on 01/17/19 14:25; Admin Dose 100 MLS/HR; Start 01/16/19 at 22:00 STEVEN LOPEZ DO January 17, 2019 15:28
[2019-01-17] MEDS: CEFTRIAXONE 1 GM/50 ML (PMX) 50 ML IVPB SCH (15:39)
--- NOTE | 2019-01-17 17:14 | CONS ---
Assessment/Plan Assessment/Plan Assessment/Plan (Daily) PRESSION: 1. Right heel necrotic wound. 2. Cardiomyopathy with ejection fraction of 20% to 30%. 3. Peripheral vascular disease status post PCI, right lower extremity. 4. Coronary artery disease status post coronary artery bypass graft. 5. Status post automatic implantable cardioverter-defibrillator. 6. Hypertension. 7. Diabetes mellitus. 8. Anemia. Patient has a significant drop in hematocrit. So far, clinically, there is no evidence of obvious GI bleeding. Plan Continue PPI Hold off on Lovenox Will obtain CAT scan of the abdomen and pelvis to rule out retroperitoneal bleed Consultation Date/Type/Reason Admit Date/Time January 09, 2019 at 18:17 Initial Consult Date 01/16/19 Requesting Provider: KRISTIN PRYOR MD Date/Time of Note DATE: 01/17/19 TIME: 17:13 24 HR Interval Summary Free Text/Dictation Patient denies of abdominal pain no nausea no vomiting no GI bleeding no abdominal discomfort Denies of any abdominal distention Constitutional: no complaints, improved Exam/Review of Systems Exam Vitals Vital Signs Date Temp Pulse Resp B/P (MAP) Pulse Ox O2 O2 Flow FiO2 Time Delivery Rate 01/17/19 70 14 105/55 100 16:00 (72) 01/17/19 97.9 Room Air 14:00 01/13/19 6.0 10:35 Intake and Output 01/16/19 01/16/19 01/17/19 1515:00 23:00 07:00 IntakeIntake Total 940 ml 1563.334 ml 453.333 ml OutputOutput Total 1100 ml 1593 ml 1025 ml BalanceBalance -160 ml -29.666 ml -571.667 ml Constitutional: alert, oriented, well developed Psych: no complaints, nl mood/affect Head: normocephalic, atraumatic Eyes: nl conjunctiva, EOMI, nl lids, nl sclera, PERRL ENMT: nl external ears & nose, nl lips & teeth, nl nasal mucosa & septum Neck: supple, non-tender Respiratory: clear to auscultation, normal air movement Cardiovascular: regular rate and rhythm, nl pulses Gastrointestinal: soft, nl liver, spleen, non-tender Musculoskeletal: nl extremities to inspection, nl gait and stance Extremities: normal pulses 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, nl mental status, nl speech, nl strength Skin: nl turgor; No rash or lesions Lymph: nl lymph nodes Results Result Diagram: 01/17/1972501/17/19725 Results 24hrs Laboratory Tests Test 01/16/19 20:44 01/17/19 02:01 01/17/19 07:26 01/17/19 08:46 Bedside Glucose 177 143 143 White Blood Count 8.5 Red Blood Count 2.57 L Hemoglobin 7.8 L Hematocrit 23.6 L Mean Corpuscular 91.8 Volume Mean Corpuscular 30.4 Hemoglobin Mean Corpuscular 33.1 Hemoglobin Concent Red Cell 14.7 H Distribution Width Platelet Count 204 Mean Platelet Volume 11.3 H Immature 1.300 H Granulocytes % Neutrophils % 63.1 Lymphocytes % 24.0 Monocytes % 8.2 Eosinophils % 3.2 Basophils % 0.2 Nucleated Red Blood 0.0 Cells % Immature 0.110 H Granulocytes # Neutrophils # 5.3 Lymphocytes # 2.0 Monocytes # 0.7 Eosinophils # 0.3 Basophils # 0.0 Nucleated Red Blood 0.0 Cells # Sodium Level 138 Potassium Level 4.1 Chloride Level 104 Carbon Dioxide Level 25 Anion Gap 9 Blood Urea Nitrogen 18 # Creatinine 0.49 L Est Glomerular > 60 Filtrat Rate mL/min Glucose Level 125 Calcium Level 8.8 Test 01/17/19 12:30 01/17/19 17:05 Bedside Glucose 164 141 Medications Medication Current Medications Amiodarone HCl (Cordarone) 200 mg DAILY PO Last administered on 01/17/19 09:08; Admin Dose 200 MG; Start 01/10/19 at 09:00 Clopidogrel Bisulfate (plaVIX) 75 mg DAILY PO Last administered on 01/17/19 09:08; Admin Dose 75 MG; Start 01/10/19 at 09:00 Digoxin (Digoxin) 0.125 mg DAILY@1300 PO Last administered on 01/17/19 14:25; Admin Dose 0.125 MG; Start 01/10/19 at 13:00 Gabapentin (Neurontin) 600 mg DAILY PO Last administered on 01/17/19 09:06; Admin Dose 600 MG; Start 01/10/19 at 09:00 Empaglifozin (Jardiance) 25 mg DAILY PO Last administered on 01/17/19 09:07; Admin Dose 25 MG; Start 01/10/19 at 09:00 Linagliptin (Tradjenta) 5 mg DAILY PO Last administered on 01/17/19 09:11; Admin Dose 5 MG; Start 01/10/19 at 09:00 Diagnostic Test (Pha) (Accu-Chek) 1 ea AC MEALS AND BEDTIME XX Last administered on 01/15/19 17:49; Admin Dose 1 EA; Start 01/09/19 at 21:00 Acetaminophen (Tylenol Tab) 650 mg Q4H PRN PO MILD PAIN(1-3)OR ELEVATED TEMP; Start 01/09/19 at 20:30 Acetaminophen/ Hydrocodone Bitart ([place] (5/325)) 1 tab Q4H PRN PO MODERATE PAIN LEVEL 4-6 Last administered on 01/15/19 08:43; Admin Dose 1 TAB; Start 01/09/19 at 20:30 Ondansetron HCl (Zofran Inj) 4 mg Q6H PRN IV NAUSEA AND/OR VOMITING Last administered on 01/14/19 19:59; Admin Dose 4 MG; Start 01/09/19 at 20:30 Diagnostic Test (Pha) (Accu-Chek) 1 ea 02 XX ; Start 01/10/19 at 02:00 Insulin Aspart (Novolog Insulin Pen) NOVOLOG *MILD* ALGORITHM WITH MEALS BEDTIME SC Last administered on 01/17/19 12:33; Admin Dose 1 UNIT; Start 01/09/19 at 22:30 Miscellaneous Information 1 ea NOTE XX ; Start 01/09/19 at 21:30 Glucose (Glutose) 15 gm Q15M PRN PO DECREASED GLUCOSE; Start 01/09/19 at 21:30 Glucose (Glutose) 22.5 gm Q15M PRN PO DECREASED GLUCOSE; Start 01/09/19 at 21:30 Dextrose (D50w Syringe) 25 ml Q15M PRN IV DECREASED GLUCOSE; Start 01/09/19 at 21:30 Dextrose (D50w Syringe) 50 ml Q15M PRN IV DECREASED GLUCOSE; Start 01/09/19 at 21:30 Glucagon (Glucagen) 1 mg Q15M PRN IM DECREASED GLUCOSE; Start 01/09/19 at 21:30 Glucose (Glutose) 15 gm Q15M PRN BUCCAL DECREASED GLUCOSE; Start 01/09/19 at 21:30 Insulin Glargine (Lantus) 18 units QHS SC Last administered on 01/16/19 20:47; Admin Dose 18 UNITS; Start 01/09/19 at 22:30 Carvedilol (Coreg) 3.125 mg BID PO Last administered on 01/17/19 09:10; Admin Dose 3.125 MG; Start 01/10/19 at 21:00 Vancomycin HCl (Vanco Iv Per Pharmacy) VANCOMYCIN PER PHARMACY PER PROTOCOL XX ; Start 01/11/19 at 02:30 Lisinopril (Zestril) 2.5 mg DAILY PO Last administered on 01/16/19 08:58; Admin Dose 2.5 MG; Start 01/13/19 at 09:00 Senna (Senokot) 1 tab DAILY PRN PO CONSTIPATION Last administered on 01/14/19 16:52; Admin Dose 1 TAB; Start 01/12/19 at 18:30 Docusate Sodium (Colace) 100 mg BID PRN PO CONSTIPATION Last administered on 01/14/19 16:52; Admin Dose 100 MG; Start 01/12/19 at 18:30 Neomycin/ Polymyxin/ Bacitracin (Neosporin Topical Oint) 1 applic DAILY TOP Last administered on 01/17/19 09:14; Admin Dose 1 APPLIC; Start 01/12/19 at 18:30 Acetaminophen/ Hydrocodone Bitart ([place] (10/325)) 1 tab Q4H PRN PO MODERATE PAIN LEVEL 4-6 Last administered on 01/17/19 15:39; Admin Dose 1 TAB; Start 01/13/19 at 21:00 Furosemide (Lasix) 20 mg DAILY PO Last administered on 01/17/19 09:09; Admin Dose 20 MG; Start 01/15/19 at 09:00 Morphine Sulfate (morphine) 2 mg Q4H PRN IV SEVERE PAIN LEVEL 7-10 Last administered on 01/17/19 09:13; Admin Dose 2 MG; Start 01/15/19 at 20:30 Cyanocobalamin (Vitamin B12 Inj) 1,000 mcg DAILY IM Last administered on 01/17/19 09:12; Admin Dose 1,000 MCG; Start 01/16/19 at 09:00 Vancomycin HCl 1.25 gm/Sodium Chloride 250 ml @ 83.333 mls/ hr Q12H IVPB Last administered on 01/17/19at 17:02; Admin Dose 83.333 MLS/HR; Start 01/16/19 at 16:00 Pantoprazole (Protonix Tab) 40 mg DAILY@06 PO Last administered on 01/17/19at 05:07; Admin Dose 40 MG; Start 01/17/19 at 06:00 Ceftriaxone Sodium 50 ml @ 100 mls/hr Q24H IVPB Last administered on 01/17/19at 15:39; Admin Dose 100 MLS/HR; Start 01/16/19 at 16:00 Metronidazole 100 ml @ 100 mls/hr Q8 IVPB Last administered on 01/17/19at 14: 25; Admin Dose 100 MLS/HR; Start 01/16/19 at 22:00 KACI TORRES MD January 17, 2019 17:14
[2019-01-17] MEDS ORDERED: IOHEXOL 14.3 MG(I)/ML (ADULT) BTL PO ONE (17:30)
[2019-01-17] MEDS: INSULIN GLARGINE [LANTus] (100 UNITS/ML) SYG SC SCH (21:15)
[2019-01-17] MEDS: CEFEPIME 2GM/50 ML (PMX) 50 ML IVPB SCH (21:17)
[2019-01-18] VITALS (10 sets, daily range): BP systolic 99–118; BP diastolic 51–62; PULSE 64–75; RESP 17–18
[2019-01-18] MEDS: HYDROCODONE/APAP (5/325) TAB PO PRN (00:56)
[2019-01-18] MEDS: ACCU-CHEK XX SCH ×5 (02:20→20:49)
[2019-01-18] MEDS: morphine 2 MG INJ IV PRN ×2 (02:36→10:01)
[2019-01-18] MEDS: VANCOMYCIN HCL 1.25 GM in SOD CHLORIDE 0.9% 250 ML IVPB SCH ×2 (04:05→15:54)
[2019-01-18] MEDS: HYDROCODONE/APAP (10/325) TAB PO PRN ×2 (04:39→11:32)
[2019-01-18] MEDS: PANTOPRAZOLE (EC) 40 MG TAB PO SCH (04:39)
[2019-01-18] MEDS: metroNIDAZOLE 500 MG/NS (PMX) 100 ML IVPB SCH ×3 (04:46→21:05)
--- NOTE | 2019-01-18 05:37 | PN ---
Date/Time of Note Date/Time of Note DATE: 01/18/19 TIME: 05:35 Assessment/Plan VTE Prophylaxis Risk score (from [facility] [place])>0 risk: 8 SCD applied (from [facility] [place]): No SCD contraindicated: other Pharmacological prophylaxis: other Pharm contraindication: other Lines/Catheters [facility]from [facility] Central Line Central line still needed: Yes Urinary Cath still in place: No Assessment/Plan Assessment/Plan -Hypotension requiring pressors and ICU monitoring. -Drop in hemoglobin- SP 1 unit PRBC Hgb 7.8 tday - continue to monitor H&H - stool for OB.- Negative -Right heel necrotic wound. Status post debridement. Intractable pain - Will et pain management consult - Dr Black follows in oncology for Anemia - Dr. Mata is following in podiatry consultation. -Continue antibiotics per ID. Dr. Landa is following in infection disease consultation. -Chronic peripheral vascular disease, history of angioplasty x2. Dr. Sheppard is following in vascular surgery consultation. - Plan for a right pop DP bypass today -Coronary artery disease, status post coronary artery bypass graft. -Continue Plavix. -Cardiomyopathy with ejection fraction of 25%. Continue Coreg. -Dr. Foster is following in cardiology consultation. -Status post AICD. -Hx of Hypertension. -Diabetes hemoglobin A1c 7.6. Continue Lantus and NovoLog. -Right knee contusion and abrasion status post fall. - Status post evaluation by Dr. Zelaya and orthopedic surgery. No signs of fracture or dystrophic dislocation. Further recommendations based on clinical course. Plan of care discussed with Dr. Mann. Result Diagram: 01/17/19 0726 01/17/19 0726 Results 24hrs Laboratory Tests Test 01/17/19 07:26 01/17/19 08:46 01/17/19 12:30 01/17/19 17:05 White Blood Count 8.5 Red Blood Count 2.57 L Hemoglobin 7.8 L Hematocrit 23.6 L Mean Corpuscular 91.8 Volume Mean Corpuscular 30.4 Hemoglobin Mean Corpuscular 33.1 Hemoglobin Concent Red Cell 14.7 H Distribution Width Platelet Count 204 Mean Platelet Volume 11.3 H Immature 1.300 H Granulocytes % Neutrophils % 63.1 Lymphocytes % 24.0 Monocytes % 8.2 Eosinophils % 3.2 Basophils % 0.2 Nucleated Red Blood 0.0 Cells % Immature 0.110 H Granulocytes # Neutrophils # 5.3 Lymphocytes # 2.0 Monocytes # 0.7 Eosinophils # 0.3 Basophils # 0.0 Nucleated Red Blood 0.0 Cells # Sodium Level 138 Potassium Level 4.1 Chloride Level 104 Carbon Dioxide Level 25 Anion Gap 9 Blood Urea Nitrogen 18 # Creatinine 0.49 L Est Glomerular > 60 Filtrat Rate mL/min Glucose Level 125 Calcium Level 8.8 Bedside Glucose 143 164 141 Test 01/17/19 17:55 01/17/19 20:08 01/18/19 02:16 Bedside Glucose 118 220 113 Subjective 24 Hr Interval Summary Free Text/Dictation -got transferred from ICU - alert; sitting on side of bed patient c/o left foot pain; states norco helps; but wants something stronger. - WILL GET PAIN MANAGEMENT - CT abdomen done r/o bleeding - pending results - - CT abdomen result available, Vee notified [facility] STAFF ENT: no complaints Respiratory: no complaints Cardiovascular: no complaints Gastrointestinal: no complaints Musculoskeletal: bone/joint pain, restricted range of motion Skin: other Neurologic: no complaints Endocrine: no complaints Psychological: nl mood/affect Exam/Review of Systems Exam Vitals Vital Signs Date Temp Pulse Resp B/P (MAP) Pulse Ox O2 O2 Flow FiO2 Time Delivery Rate 01/18/19 97.8 67 17 115/55 99 04:00 (75) 01/17/19 Room Air 14:00 Intake and Output 01/17/19 01/17/19 01/18/19 1515:00 23:00 07:00 IntakeIntake Total 200 ml 390 ml 800 ml OutputOutput Total 2000 ml 500 ml 850 ml BalanceBalance -1800 ml -110 ml -50 ml Constitutional: alert, well developed, obese Psych: no complaints Head: normocephalic Eyes: nl lids, nl sclera ENMT: nl external ears & nose Neck: non-tender Respiratory: clear to auscultation Cardiovascular: nl pulses, other (s1s2) Gastrointestinal: soft, non-tender Musculoskeletal: swelling Extremities: edema 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: nl speech, other (alert/reponsive) Lymph: nontender Results Results 24hrs Laboratory Tests Test 01/17/19 07:26 01/17/19 08:46 01/17/19 12:30 01/17/19 17:05 White Blood Count 8.5 Red Blood Count 2.57 L Hemoglobin 7.8 L Hematocrit 23.6 L Mean Corpuscular 91.8 Volume Mean Corpuscular 30.4 Hemoglobin Mean Corpuscular 33.1 Hemoglobin Concent Red Cell 14.7 H Distribution Width Platelet Count 204 Mean Platelet Volume 11.3 H Immature 1.300 H Granulocytes % Neutrophils % 63.1 Lymphocytes % 24.0 Monocytes % 8.2 Eosinophils % 3.2 Basophils % 0.2 Nucleated Red Blood 0.0 Cells % Immature 0.110 H Granulocytes # Neutrophils # 5.3 Lymphocytes # 2.0 Monocytes # 0.7 Eosinophils # 0.3 Basophils # 0.0 Nucleated Red Blood 0.0 Cells # Sodium Level 138 Potassium Level 4.1 Chloride Level 104 Carbon Dioxide Level 25 Anion Gap 9 Blood Urea Nitrogen 18 # Creatinine 0.49 L Est Glomerular > 60 Filtrat Rate mL/min Glucose Level 125 Calcium Level 8.8 Bedside Glucose 143 164 141 Test 01/17/19 17:55 01/17/19 20:08 01/18/19 02:16 Bedside Glucose 118 220 113 Medications Medication Current Medications Amiodarone HCl (Cordarone) 200 mg DAILY PO Last administered on 01/17/19 09:08; Admin Dose 200 MG; Start 01/10/19 at 09:00 Clopidogrel Bisulfate (plaVIX) 75 mg DAILY PO Last administered on 01/17/19 09:08; Admin Dose 75 MG; Start 01/10/19 at 09:00 Digoxin (Digoxin) 0.125 mg DAILY@1300 PO Last administered on 01/17/19 14:25; Admin Dose 0.125 MG; Start 01/10/19 at 13:00 Gabapentin (Neurontin) 600 mg DAILY PO Last administered on 01/17/19 09:06; Admin Dose 600 MG; Start 01/10/19 at 09:00 Empaglifozin (Jardiance) 25 mg DAILY PO Last administered on 01/17/19 09:07; Admin Dose 25 MG; Start 01/10/19 at 09:00 Linagliptin (Tradjenta) 5 mg DAILY PO Last administered on 01/17/19 09:11; Admin Dose 5 MG; Start 01/10/19 at 09:00 Diagnostic Test (Pha) (Accu-Chek) 1 ea AC MEALS AND BEDTIME XX Last administered on 01/17/19 20:47; Admin Dose 1 EA; Start 01/09/19 at 21:00 Acetaminophen (Tylenol Tab) 650 mg Q4H PRN PO MILD PAIN(1-3)OR ELEVATED TEMP; Start 01/09/19 at 20:30 Acetaminophen/ Hydrocodone Bitart ([place] (5/325)) 1 tab Q4H PRN PO MODERATE PAIN LEVEL 4-6 Last administered on 01/18/19 00:56; Admin Dose 1 TAB; Start 01/09/19 at 20:30 Ondansetron HCl (Zofran Inj) 4 mg Q6H PRN IV NAUSEA AND/OR VOMITING Last admin istered on 01/14/19 19:59; Admin Dose 4 MG; Start 01/09/19 at 20:30 Diagnostic Test (Pha) (Accu-Chek) 1 ea 02 XX Last administered on 01/18/19 02:20; Admin Dose 1 EA; Start 01/10/19 at 02:00 Insulin Aspart (Novolog Insulin Pen) NOVOLOG *MILD* ALGORITHM WITH MEALS BEDTIME SC Last administered on 01/17/19 20:45; Admin Dose 1 UNIT; Start 01/09/19 at 22:30 Miscellaneous Information 1 ea NOTE XX ; Start 01/09/19 at 21:30 Glucose (Glutose) 15 gm Q15M PRN PO DECREASED GLUCOSE; Start 01/09/19 at 21:30 Glucose (Glutose) 22.5 gm Q15M PRN PO DECREASED GLUCOSE; Start 01/09/19 at 21:30 Dextrose (D50w Syringe) 25 ml Q15M PRN IV DECREASED GLUCOSE; Start 01/09/19 at 21:30 Dextrose (D50w Syringe) 50 ml Q15M PRN IV DECREASED GLUCOSE; Start 01/09/19 at 21:30 Glucagon (Glucagen) 1 mg Q15M PRN IM DECREASED GLUCOSE; Start 01/09/19 at 21:30 Glucose (Glutose) 15 gm Q15M PRN BUCCAL DECREASED GLUCOSE; Start 01/09/19 at 21:30 Insulin Glargine (Lantus) 18 units QHS SC Last administered on 01/17/19 21:15; Admin Dose 18 UNITS; Start 01/09/19 at 22:30 Carvedilol (Coreg) 3.125 mg BID PO Last administered on 01/17/19 09:10; Admin Dose 3.125 MG; Start 01/10/19 at 21:00 Vancomycin HCl (Vanco Iv Per Pharmacy) VANCOMYCIN PER PHARMACY PER PROTOCOL XX ; Start 01/11/19 at 02:30 Lisinopril (Zestril) 2.5 mg DAILY PO Last administered on 01/16/19 08:58; Admin Dose 2.5 MG; Start 01/13/19 at 09:00 Senna (Senokot) 1 tab DAILY PRN PO CONSTIPATION Last administered on 01/14/19 16:52; Admin Dose 1 TAB; Start 01/12/19 at 18:30 Docusate Sodium (Colace) 100 mg BID PRN PO CONSTIPATION Last administered on 01/14/19 16:52; Admin Dose 100 MG; Start 01/12/19 at 18:30 Neomycin/ Polymyxin/ Bacitracin (Neosporin Topical Oint) 1 applic DAILY TOP Last administered on 01/17/19 09:14; Admin Dose 1 APPLIC; Start 01/12/19 at 18:30 Acetaminophen/ Hydrocodone Bitart ([place] (10/325)) 1 tab Q4H PRN PO MODERATE PAIN LEVEL 4-6 Last administered on 01/18/19 04:39; Admin Dose 1 TAB; Start 01/13/19 at 21:00 Furosemide (Lasix) 20 mg DAILY PO Last administered on 01/17/19 09:09; Admin Dose 20 MG; Start 01/15/19 at 09:00 Morphine Sulfate (morphine) 2 mg Q4H PRN IV SEVERE PAIN LEVEL 7-10 Last administered on 01/18/19 02:36; Admin Dose 2 MG; Start 01/15/19 at 20:30 Cyanocobalamin (Vitamin B12 Inj) 1,000 mcg DAILY IM Last administered on 01/17/19 09:12; Admin Dose 1,000 MCG; Start 01/16/19 at 09:00 Vancomycin HCl 1.25 gm/Sodium Chloride 250 ml @ 83.333 mls/ hr Q12H IVPB Last administered on 01/18/19 04:05; Admin Dose 83.333 MLS/HR; Start 01/16/19 at 16:00 Pantoprazole (Protonix Tab) 40 mg DAILY@06 PO Last administered on 01/18/19 04:39; Admin Dose 40 MG; Start 01/17/19 at 06:00 Metronidazole 100 ml @ 100 mls/hr Q8 IVPB Last administered on 01/18/19at 04:46; Admin Dose 100 MLS/HR; Start 01/16/19 at 22:00 Cefepime HCl 50 ml @ 100 mls/hr Q12 IVPB Last administered on 01/17/19at 21:17; Admin Dose 100 MLS/HR; Start 01/17/19 at 21:00 MARTINE PUENTES January 18, 2019 05:37
[2019-01-18] MEDS: INSULIN ASPART [NOVOLOG] 3 ML PEN SC SCH ×4 (07:55→20:30)
[2019-01-18] MEDS: CYANOCOBALAMIN 1000 MCG INJ IM SCH (08:20)
[2019-01-18] MEDS: CEFEPIME 2GM/50 ML (PMX) 50 ML IVPB SCH ×2 (08:20→20:49)
[2019-01-18] MEDS: EMPAGLIFLOZIN 10 MG TABLET PO SCH (08:21)
[2019-01-18] MEDS: GABAPENTIN 300 MG CAP PO SCH (08:21)
[2019-01-18] MEDS: FUROSEMIDE 20 MG TAB PO SCH (08:21)
[2019-01-18] MEDS: AMIODARONE 200 MG TAB PO SCH (08:22)
[2019-01-18] MEDS: CLOPIDOGREL 75 MG TAB PO SCH (08:22)
[2019-01-18] MEDS: LINAGLIPTIN 5 MG TABLET PO SCH (08:22)
[2019-01-18] MEDS: LISINOPRIL 5 MG TAB PO SCH (08:22)
[2019-01-18] MEDS: NEOMYC/POLYMYX/BACIT 30 GM OINT TOP SCH (08:23)
--- NOTE | 2019-01-18 13:40 | CONS ---
[facility] HCIS Consult Follow-up Patient Name: Humble Zayas Unit Number: [id number] Date of : 1955 Patient Status: Admitted Inpatient Attending Doctor: Kristin Pryor MD Edit: CARMITA GARCIA M.D. on 01/19/19 @ 03:22 Jose: I discussed the management with PHOEBE Hutchins and agree Assessment/Plan Assessment/Plan Hospital Course (Demo Recall) - polymicrobial infection of non-healing ulcer of R heel. CT on 01/10/2019 did not show evidence of OM. ESR 26 on 01/09/2019 and 37 on 01/12/2019; superficial wound cx Pseudomonas, E. Coli, Enterococcus (isolated from broth only), scant Proteus, and scant CoNS - s/p Debridement of the right calcaneal ulceration 01/13/2019; intraop cx grew E. Coli, Proteus, and Enterococcus - chronic wound of R heel, in the past the wound culture grew E. coli - h/o OM of R foot, h/o 6 weeks of IV vancomycin and ceftriaxone in 2018. Pt remembers it was a "Staph infection." - trauma to R knee - anemia requiring PRBC - PAF - CAD s/p CABG - HTN - CM with EF 25% - h/o AICD placement - PVD - h/o aortogram, RLE runoff and percutaneous angioplasty of the posterior tibial artery and the anterior tibial artery in 10/2018 - DM - Hgb A1c 7.6% - HLD associated with DM Recommendations: - Continue Cefepime (restart 01/17/2019-) for Pseudomonas, E. Coli and Proteus. I spoked to Judy at [facility] who confirmed sensis of Cefepime to E. Coli and Proteus - Continue IV vancomycin (01/11/2019-) - Continue Flagyl IV (01/16/19 -) - Consider PICC line - Will likely require 4-6 weeks abx - S/p clindamycin and meropenem (01/11/2019-01/16/19); S/p Ceftriaxone Management d/w patient, KAY Regan, and with Dr. Garcia Consultation Date/Type/Reason Admit Date/Time January 09, 2019 at 18:17 Initial Consult Date 01/16/19 Type of Consult Infectious Disease Requesting Provider: KRISTIN PRYOR MD Date/Time of Note DATE: 01/18/19 TIME: 15:30 24 HR Interval Summary Free Text/Dictation Cefepime is sensitive to E. coli and proteus per d/w [facility]. Seen by Dr. Angeles and pain meds were adjusted with verbalized improvement. Pt states R foot pain is currently 0/10. Still has BLE edema. No n/v/d, dysuria, SOB, CP, fever or chills. Exam/Review of Systems Exam Vitals Vital Signs Date Temp Pulse Resp B/P (MAP) Pulse Ox O2 O2 Flow FiO2 Time Delivery Rate 01/18/19 65 12:47 01/18/19 98.0 18 101/51 100 11:40 (68) 01/17/19 Room Air 14:00 Intake and Output 01/17/19 01/17/19 01/18/19 1515:00 23:00 07:00 IntakeIntake Total 200 ml 390 ml 800 ml OutputOutput Total 2000 ml 500 ml 850 ml BalanceBalance -1800 ml -110 ml -50 ml Exam Constitutional: alert, oriented, well developed, obese, other (sitting in chair in NAD) Psych: no complaints, nl mood/affect Head: normocephalic, atraumatic Eyes: nl conjunctiva, nl sclera ENMT: nl external ears & nose, nl nasal mucosa & septum, mucosa pink and moist Neck: supple, non-tender Respiratory: clear to auscultation, normal air movement, other (on room air) Cardiovascular: regular rate and rhythm, edema (R foot) Gastrointestinal: soft, non-tender, bowel sounds; No distended Genitourinary - Male: other (No Avelar) Musculoskeletal: swelling (R foot); No nl gait and stance Extremities: normal pulses, edema (R foot), other (R foot wrapped with Coban and GABI wrap c/d/i. I offered pt his knee walker so that he can elevate BLE) 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: nl mental status, nl speech Skin: nl turgor Results Result Diagram: 01/18/19 0557 01/18/19 0557 Results 24hrs Laboratory Tests Test 01/17/19 17:05 01/17/19 17:55 01/17/19 20:08 01/18/19 02:16 Bedside Glucose 141 118 220 113 Test 01/18/19 05:57 01/18/19 07:52 01/18/19 11:26 White Blood Count 7.4 Red Blood Count 2.48 L Hemoglobin 7.5 L Hematocrit 22.9 L Mean Corpuscular 92.3 Volume Mean Corpuscular 30.2 Hemoglobin Mean Corpuscular 32.8 Hemoglobin Concent Red Cell 14.8 H Distribution Width Platelet Count 203 Mean Platelet Volume 11.4 H Immature 1.000 H Granulocytes % Neutrophils % 56.4 Lymphocytes % 29.8 Monocytes % 9.0 Eosinophils % 3.7 Basophils % 0.1 Nucleated Red Blood 0.0 Cells % Immature 0.070 H Granulocytes # Neutrophils # 4.2 Lymphocytes # 2.2 Monocytes # 0.7 Eosinophils # 0.3 Basophils # 0.0 Nucleated Red Blood 0.0 Cells # Sodium Level 138 Potassium Level 4.1 Chloride Level 105 Carbon Dioxide Level 27 Anion Gap 6 Blood Urea Nitrogen 14 Creatinine 0.50 L Est Glomerular > 60 Filtrat Rate mL/min Glucose Level 112 Calcium Level 8.5 Bedside Glucose 123 159 Medications Medication Current Medications Amiodarone HCl (Cordarone) 200 mg DAILY PO Last administered on 01/18/19 08:22; Admin Dose 200 MG; Start 01/10/19 at 09:00 Clopidogrel Bisulfate (plaVIX) 75 mg DAILY PO Last administered on 01/18/19 08:22; Admin Dose 75 MG; Start 01/10/19 at 09:00 Digoxin (Digoxin) 0.125 mg DAILY@1300 PO Last administered on 01/17/19 14:25; Admin Dose 0.125 MG; Start 01/10/19 at 13:00 Gabapentin (Neurontin) 600 mg DAILY PO Last administered on 01/18/19 08:21; Admin Dose 600 MG; Start 01/10/19 at 09:00 Empaglifozin (Jardiance) 25 mg DAILY PO Last administered on 01/18/19 08:21; Admin Dose 25 MG; Start 01/10/19 at 09:00 Linagliptin (Tradjenta) 5 mg DAILY PO Last administered on 01/18/19 08:22; Admin Dose 5 MG; Start 01/10/19 at 09:00 Diagnostic Test (Pha) (Accu-Chek) 1 ea AC MEALS AND BEDTIME XX Last administered on 01/17/19 20:47; Admin Dose 1 EA; Start 01/09/19 at 21:00 Acetaminophen (Tylenol Tab) 650 mg Q4H PRN PO MILD PAIN(1-3)OR ELEVATED TEMP; Start 01/09/19 at 20:30 Acetaminophen/ Hydrocodone Bitart ([place] (5/325)) 1 tab Q4H PRN PO MODERATE PAIN LEVEL 4-6 Last administered on 01/18/19 00:56; Admin Dose 1 TAB; Start 01/09/19 at 20:30 Ondansetron HCl (Zofran Inj) 4 mg Q6H PRN IV NAUSEA AND/OR VOMITING Last administered on 01/14/19 19:59; Admin Dose 4 MG; Start 01/09/19 at 20:30 Diagnostic Test (Pha) (Accu-Chek) 1 ea 02 XX Last administered on 01/18/19 02:20; Admin Dose 1 EA; Start 01/10/19 at 02:00 Insulin Aspart (Novolog Insulin Pen) NOVOLOG *MILD* ALGORITHM WITH MEALS BEDTIME SC Last administered on 01/18/19 11:39; Admin Dose 1 UNIT; Start 01/09/19 at 22:30 Miscellaneous Information 1 ea NOTE XX ; Start 01/09/19 at 21:30 Glucose (Glutose) 15 gm Q15M PRN PO DECREASED GLUCOSE; Start 01/09/19 at 21:30 Glucose (Glutose) 22.5 gm Q15M PRN PO DECREASED GLUCOSE; Start 01/09/19 at 21:30 Dextrose (D50w Syringe) 25 ml Q15M PRN IV DECREASED GLUCOSE; Start 01/09/19 at 21:30 Dextrose (D50w Syringe) 50 ml Q15M PRN IV DECREASED GLUCOSE; Start 01/09/19 at 21:30 Glucagon (Glucagen) 1 mg Q15M PRN IM DECREASED GLUCOSE; Start 01/09/19 at 21:30 Glucose (Glutose) 15 gm Q15M PRN BUCCAL DECREASED GLUCOSE; Start 01/09/19 at 21:30 Insulin Glargine (Lantus) 18 units QHS SC Last administered on 01/17/19 21:15; Admin Dose 18 UNITS; Start 01/09/19 at 22:30 Carvedilol (Coreg) 3.125 mg BID PO Last administered on 01/18/19 08:21; Admin Dose 3.125 MG; Start 01/10/19 at 21:00 Vancomycin HCl (Vanco Iv Per Pharmacy) VANCOMYCIN PER PHARMACY PER PROTOCOL XX ; Start 01/11/19 at 02:30 Lisinopril (Zestril) 2.5 mg DAILY PO Last administered on 01/18/19 08:22; Admin Dose 2.5 MG; Start 01/13/19 at 09:00 Senna (Senokot) 1 tab DAILY PRN PO CONSTIPATION Last administered on 01/14/19 16:52; Admin Dose 1 TAB; Start 01/12/19 at 18:30 Docusate Sodium (Colace) 100 mg BID PRN PO CONSTIPATION Last administered on 01/14/19 16:52; Admin Dose 100 MG; Start 01/12/19 at 18:30 Neomycin/ Polymyxin/ Bacitracin (Neosporin Topical Oint) 1 applic DAILY TOP Last administered on 01/18/19 08:23; Admin Dose 1 APPLIC; Start 01/12/19 at 18:30 Acetaminophen/ Hydrocodone Bitart ([place] (10/325)) 1 tab Q4H PRN PO MODERATE PAIN LEVEL 4-6 Last administered on 01/18/19 11:32; Admin Dose 1 TAB; Start 01/13/19 at 21:00 Furosemide (Lasix) 20 mg DAILY PO Last administered on 01/18/19 08:21; Admin Dose 20 MG; Start 01/15/19 at 09:00 Morphine Sulfate (morphine) 2 mg Q4H PRN IV SEVERE PAIN LEVEL 7-10 Last administered on 01/18/19 10:01; Admin Dose 2 MG; Start 01/15/19 at 20:30 Cyanocobalamin (Vitamin B12 Inj) 1,000 mcg DAILY IM Last administered on 01/18/19 08:20; Admin Dose 1,000 MCG; Start 01/16/19 at 09:00 Vancomycin HCl 1.25 gm/Sodium Chloride 250 ml @ 83.333 mls/ hr Q12H IVPB Last administered on 01/18/19at 04:05; Admin Dose 83.333 MLS/HR; Start 01/16/19 at 16:00 Pantoprazole (Protonix Tab) 40 mg DAILY@06 PO Last administered on 01/18/19at 04:39; Admin Dose 40 MG; Start 01/17/19 at 06:00 Metronidazole 100 ml @ 100 mls/hr Q8 IVPB Last administered on 01/18/19at 04:46; Admin Dose 100 MLS/HR; Start 01/16/19 at 22:00 Cefepime HCl 50 ml @ 100 mls/hr Q12 IVPB Last administered on 01/18/19at 08:20; Admin Dose 100 MLS/HR; Start 01/17/19 at 21:00 LE HUTCHINS NP January 18, 2019 13:40
[2019-01-18] MEDS: DIGOXIN 0.125 MG TAB PO SCH (13:47)
--- NOTE | 2019-01-18 15:23 | CONS ---
Consult Date/Type/Reason Admit Date/Time January 09, 2019 at 18:17 Initial Consult Date 01/10/19 Requesting Provider: KRISTIN PRYOR MD Date/Time of Note DATE: 01/18/19 TIME: 15:21 Subjective NO acute events - BP in good range - out of ICU - minimally increased edema - elevation advised. ROS: No fever, no chills, no nausea, no vomiting, no diarrhea/constipation NO CP now - pain better controlled. Objective Vitals Vital Signs Date Temp Pulse Resp B/P (MAP) Pulse Ox O2 O2 Flow FiO2 Time Delivery Rate 01/18/19 65 12:47 01/18/19 98.0 18 101/51 100 11:40 (68) 01/17/19 Room Air 14:00 Intake and Output 01/17/19 01/17/19 01/18/19 1515:00 23:00 07:00 IntakeIntake Total 200 ml 390 ml 800 ml OutputOutput Total 2000 ml 500 ml 850 ml BalanceBalance -1800 ml -110 ml -50 ml Exam General: WN/WD/NAD, AOx 3 HEENT: Unicetric/atraumatic/EOMI ( follow commands) NECK: JVD elevated, no thyromegaly Lymph: no lymphadenopathy HEART: regular with no S3, II/ systolic murmur at apex, PMI L mid-sternal scar LUNGS: Coarse sounds ABD: soft, NT, ND, +BS : Intact Neuro: non focal SKIN: chronic changes EXT: bandages, 1+ edema, poor pulse Results/Medications Result Diagram: 01/18/19 0557 01/18/19 0557 Results 24 hrs Laboratory Tests Test 01/17/19 17:05 01/17/19 17:55 01/17/19 20:08 01/18/19 02:16 Bedside Glucose 141 118 220 113 Test 01/18/19 05:57 01/18/19 07:52 01/18/19 11:26 White Blood Count 7.4 Red Blood Count 2.48 L Hemoglobin 7.5 L Hematocrit 22.9 L Mean Corpuscular 92.3 Volume Mean Corpuscular 30.2 Hemoglobin Mean Corpuscular 32.8 Hemoglobin Concent Red Cell 14.8 H Distribution Width Platelet Count 203 Mean Platelet Volume 11.4 H Immature 1.000 H Granulocytes % Neutrophils % 56.4 Lymphocytes % 29.8 Monocytes % 9.0 Eosinophils % 3.7 Basophils % 0.1 Nucleated Red Blood 0.0 Cells % Immature 0.070 H Granulocytes # Neutrophils # 4.2 Lymphocytes # 2.2 Monocytes # 0.7 Eosinophils # 0.3 Basophils # 0.0 Nucleated Red Blood 0.0 Cells # Sodium Level 138 Potassium Level 4.1 Chloride Level 105 Carbon Dioxide Level 27 Anion Gap 6 Blood Urea Nitrogen 14 Creatinine 0.50 L Est Glomerular > 60 Filtrat Rate mL/min Glucose Level 112 Calcium Level 8.5 Bedside Glucose 123 159 Home Meds Reported Medications Amiodarone Hcl* (Amiodarone Hcl*) 200 Mg Tablet, 200 MG PO DAILY, #30 TAB 01/09/19 Digoxin* (Digitek*) 125 Mcg Tablet, 0.125 MG PO DAILY, TAB 01/09/19 Rivaroxaban* (Xarelto*) 20 Mg Tablet, 20 MG PO WITH DINNER, TAB 01/09/19 Clopidogrel Bisulfate* (Clopidogrel Bisulfate*) 75 Mg Tablet, 75 MG PO DAILY, #30 TAB 01/09/19 Empagliflozin (Jardiance) 25 Mg Tablet, 25 MG PO DAILY, TAB 01/09/19 Insulin Glargine,Hum.rec.anlog (Basaglar Kwikpen U-100) 100 Unit/1 Ml Insuln.pen, 18 UNIT SC QHS, EA 01/09/19 Sulfamethoxazole/Trimethoprim* (Bactrim Ds* Tablet) 1 Each Tablet, 1 TAB PO BID, TAB FOR 10 DAYS,START TAKING 01/06/19 01/09/19 Tapentadol Hcl (Nucynta) 100 Mg Tablet, 100 MG PO BID, TAB 01/09/19 Gabapentin* (Gabapentin*) 600 Mg Tablet, 600 MG PO DAILY, #60 TAB 01/09/19 Metformin Hcl* (Metformin Hcl*) 1,000 Mg Tablet, 1000 MG PO WITH BREAKFAST DINNE, #60 TAB 01/09/19 Medications Current Medications Amiodarone HCl (Cordarone) 200 mg DAILY PO Last administered on 01/18/19at 08:22; Admin Dose 200 MG; Start 01/10/19 at 09:00 Clopidogrel Bisulfate (plaVIX) 75 mg DAILY PO Last administered on 01/18/19at 08:22; Admin Dose 75 MG; Start 01/10/19 at 09:00 Digoxin (Digoxin) 0.125 mg DAILY@1300 PO Last administered on 01/18/19 13:47; Admin Dose 0.125 MG; Start 01/10/19 at 13:00 Gabapentin (Neurontin) 600 mg DAILY PO Last administered on 01/18/19 08:21; Admin Dose 600 MG; Start 01/10/19 at 09:00 Empaglifozin (Jardiance) 25 mg DAILY PO Last administered on 01/18/19 08:21; Admin Dose 25 MG; Start 01/10/19 at 09:00 Linagliptin (Tradjenta) 5 mg DAILY PO Last administered on 01/18/19 08:22; Admin Dose 5 MG; Start 01/10/19 at 09:00 Diagnostic Test (Pha) (Accu-Chek) 1 ea AC MEALS AND BEDTIME XX Last administered on 01/17/19 20:47; Admin Dose 1 EA; Start 01/09/19 at 21:00 Acetaminophen (Tylenol Tab) 650 mg Q4H PRN PO MILD PAIN(1-3)OR ELEVATED TEMP; Start 01/09/19 at 20:30 Acetaminophen/ Hydrocodone Bitart ([place] (5/325)) 1 tab Q4H PRN PO MODERATE PAIN LEVEL 4-6 Last administered on 01/18/19 00:56; Admin Dose 1 TAB; Start 01/09/19 at 20:30 Ondansetron HCl (Zofran Inj) 4 mg Q6H PRN IV NAUSEA AND/OR VOMITING Last administered on 01/14/19 19:59; Admin Dose 4 MG; Start 01/09/19 at 20:30 Diagnostic Test (Pha) (Accu-Chek) 1 ea 02 XX Last administered on 01/18/19 02:20; Admin Dose 1 EA; Start 01/10/19 at 02:00 Insulin Aspart (Novolog Insulin Pen) NOVOLOG *MILD* ALGORITHM WITH MEALS BEDTIM E SC Last administered on 01/18/19 11:39; Admin Dose 1 UNIT; Start 01/09/19 at 22:30 Miscellaneous Information 1 ea NOTE XX ; Start 01/09/19 at 21:30 Glucose (Glutose) 15 gm Q15M PRN PO DECREASED GLUCOSE; Start 01/09/19 at 21:30 Glucose (Glutose) 22.5 gm Q15M PRN PO DECREASED GLUCOSE; Start 01/09/19 at 21:30 Dextrose (D50w Syringe) 25 ml Q15M PRN IV DECREASED GLUCOSE; Start 01/09/19 at 21:30 Dextrose (D50w Syringe) 50 ml Q15M PRN IV DECREASED GLUCOSE; Start 01/09/19 at 21:30 Glucagon (Glucagen) 1 mg Q15M PRN IM DECREASED GLUCOSE; Start 01/09/19 at 21:30 Glucose (Glutose) 15 gm Q15M PRN BUCCAL DECREASED GLUCOSE; Start 01/09/19 at 21:30 Insulin Glargine (Lantus) 18 units QHS SC Last administered on 01/17/19 21:15; Admin Dose 18 UNITS; Start 01/09/19 at 22:30 Carvedilol (Coreg) 3.125 mg BID PO Last administered on 01/18/19 08:21; Admin Dose 3.125 MG; Start 01/10/19 at 21:00 Vancomycin HCl (Vanco Iv Per Pharmacy) VANCOMYCIN PER PHARMACY PER PROTOCOL XX ; Start 01/11/19 at 02:30 Lisinopril (Zestril) 2.5 mg DAILY PO Last administered on 01/18/19 08:22; Admin Dose 2.5 MG; Start 01/13/19 at 09:00 Senna (Senokot) 1 tab DAILY PRN PO CONSTIPATION Last administered on 01/14/19 16:52; Admin Dose 1 TAB; Start 01/12/19 at 18:30 Docusate Sodium (Colace) 100 mg BID PRN PO CONSTIPATION Last administered on 01/14/19 16:52; Admin Dose 100 MG; Start 01/12/19 at 18:30 Neomycin/ Polymyxin/ Bacitracin (Neosporin Topical Oint) 1 applic DAILY TOP Last administered on 01/18/19 08:23; Admin Dose 1 APPLIC; Start 01/12/19 at 18:30 Furosemide (Lasix) 20 mg DAILY PO Last administered on 01/18/19 08:21; Admin Dose 20 MG; Start 01/15/19 at 09:00 Cyanocobalamin (Vitamin B12 Inj) 1,000 mcg DAILY IM Last administered on 01/18/19 08:20; Admin Dose 1,000 MCG; Start 01/16/19 at 09:00 Vancomycin HCl 1.25 gm/Sodium Chloride 250 ml @ 83.333 mls/ hr Q12H IVPB Last administered on 01/18/19at 04:05; Admin Dose 83.333 MLS/HR; Start 01/16/19 at 16:00 Pantoprazole (Protonix Tab) 40 mg DAILY@06 PO Last administered on 01/18/19at 04:39; Admin Dose 40 MG; Start 01/17/19 at 06:00 Metronidazole 100 ml @ 100 mls/hr Q8 IVPB Last administered on 01/18/19at 13:48; Admin Dose 100 MLS/HR; Start 01/16/19 at 22:00 Cefepime HCl 50 ml @ 100 mls/hr Q12 IVPB Last administered on 01/18/19at 08:20; Admin Dose 100 MLS/HR; Start 01/17/19 at 21:00 Oxycodone HCl (Oxycontin) 10 mg BID PO ; Start 01/18/19 at 15:00 Hydromorphone HCl (Dilaudid) 1 mg Q4H PRN IV SEVERE PAIN LEVEL 7-10; Start 01/18/19 at 15:00 Assessment/Plan Hospital Course (Demo Recall) 1.Pre-op for peripheral bypass surgery. Lexiscan with no ischemia/+scar EF 28%. Echo EF 25%. OK to proceed to surgery at moderate CV risk - stable now - on hold for now - con't wound care. Treated. 2.Cardiomyopathy with low EF-severely depressed by echo this admit - mild CHF, con't gentle diuresis - stable fluid satus. BiV upgrade planned per Dr. Herrera. 3.HTN - well Rx - on therapy now - in good range now. TREATED. 4.HL 5.Non-healing LE ulcer - in bandage, will follow - con't wound care. 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 A. Fib - in sinus now, paroxysmal - on amio - off anti-coag with low H/H MIGUEL WADE MD January 18, 2019 15:23
[2019-01-18] MEDS: oxyCODONE (CR) 10 MG TAB [oxyCONTIN] PO SCH ×2 (15:25→21:05)
[2019-01-18] MEDS: HYDROmorphONE 1 MG/ML SYG IV PRN ×2 (15:26→20:15)
--- NOTE | 2019-01-18 17:29 | PN ---
DATE: 01/18/2019 Still has some residual pain over left low back. However, it is better than right after the recent f all. The x-rays of the lumbosacral spine and subsequent CT scan revealed a rather significant spondy lolisthesis grade II at the level of L5 to S1 with the bilateral pars defect. This has been known to the patient more than 20 years and possible surgical treatment in the form of fusion with instrument ation was discussed, but it has not done because of the patient's reluctance and he claims that he is feeling better without surgery with exercise, et cetera. Further ortho followup will be on p.r.n. b asis as an outpatient for his back problems. Dictated By: CHRISTIANO ECHOLS MD IK/NTS Conf#: [id number] DID#: [id number] CC: VERO MAHONEY MD; KRISTIN PRYOR MD;*EndCC*
[2019-01-18] MEDS: INSULIN GLARGINE [LANTus] (100 UNITS/ML) SYG SC SCH (20:30)
--- NOTE | 2019-01-18 21:00 | CONS ---
Assessment/Plan Assessment/Plan Assessment/Plan (Daily) Assessment/Plan (Daily) PRESSION: 1. Right heel necrotic wound. 2. Cardiomyopathy with ejection fraction of 20% to 30%. 3. Peripheral vascular disease status post PCI, right lower extremity. 4. Coronary artery disease status post coronary artery bypass graft. 5. Status post automatic implantable cardioverter-defibrillator. 6. Hypertension. 7. Diabetes mellitus. 8. Anemia. Patient has a significant drop in hematocrit. So far, clinically, there is no evidence of obvious GI bleeding. Plan Continue PPI Hold off on Lovenox Will obtain CAT scan of the abdomen and pelvis shows 3 cm gastric mass EGD Consultation Date/Type/Reason Admit Date/Time January 09, 2019 at 18:17 Initial Consult Date 01/16/19 Requesting Provider: KRISTIN PRYOR MD Date/Time of Note DATE: 01/18/19 TIME: 20:59 24 HR Interval Summary Constitutional: no complaints, improved Exam/Review of Systems Exam Vitals Vital Signs Date Temp Pulse Resp B/P (MAP) Pulse Ox O2 O2 Flow FiO2 Time Delivery Rate 01/18/19 97.4 69 18 99/54 (69) 100 20:00 01/17/19 Room Air 14:00 Intake and Output 01/17/19 01/17/19 01/18/19 1515:00 23:00 07:00 IntakeIntake Total 200 ml 390 ml 800 ml OutputOutput Total 2000 ml 500 ml 850 ml BalanceBalance -1800 ml -110 ml -50 ml Constitutional: alert, oriented, well developed Psych: no complaints, nl mood/affect Head: normocephalic, atraumatic Eyes: nl conjunctiva, EOMI, nl lids, nl sclera, PERRL ENMT: nl external ears & nose, nl lips & teeth, nl nasal mucosa & septum Neck: supple, non-tender Respiratory: clear to auscultation, normal air movement Cardiovascular: regular rate and rhythm, nl pulses Gastrointestinal: soft, nl liver, spleen, non-tender Musculoskeletal: nl extremities to inspection, nl gait and stance Extremities: normal pulses 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: DOLL WIG HACKLER II-XII intact, nl mental status, nl speech, nl strength Skin: nl turgor; No rash or lesions Lymph: nl lymph nodes Results Result Diagram: 01/18/19 0557 01/18/19 0557 Results 24hrs Laboratory Tests Test 01/18/19 02:16 01/18/19 05:57 01/18/19 07:52 01/18/19 11:26 Bedside Glucose 113 123 159 White Blood Count 7.4 Red Blood Count 2.48 L Hemoglobin 7.5 L Hematocrit 22.9 L Mean Corpuscular 92.3 Volume Mean Corpuscular 30.2 Hemoglobin Mean Corpuscular 32.8 Hemoglobin Concent Red Cell 14.8 H Distribution Width Platelet Count 203 Mean Platelet Volume 11.4 H Immature 1.000 H Granulocytes % Neutrophils % 56.4 Lymphocytes % 29.8 Monocytes % 9.0 Eosinophils % 3.7 Basophils % 0.1 Nucleated Red Blood 0.0 Cells % Immature 0.070 H Granulocytes # Neutrophils # 4.2 Lymphocytes # 2.2 Monocytes # 0.7 Eosinophils # 0.3 Basophils # 0.0 Nucleated Red Blood 0.0 Cells # Sodium Level 138 Potassium Level 4.1 Chloride Level 105 Carbon Dioxide Level 27 Anion Gap 6 Blood Urea Nitrogen 14 Creatinine 0.50 L Est Glomerular > 60 Filtrat Rate mL/min Glucose Level 112 Calcium Level 8.5 Test 01/18/19 17:37 01/18/19 20:14 Bedside Glucose 121 183 Medications Medication Current Medications Amiodarone HCl (Cordarone) 200 mg DAILY PO Last administered on 01/18/19 08:22; Admin Dose 200 MG; Start 01/10/19 at 09:00 Clopidogrel Bisulfate (plaVIX) 75 mg DAILY PO Last administered on 01/18/19 08:22; Admin Dose 75 MG; Start 01/10/19 at 09:00 Digoxin (Digoxin) 0.125 mg DAILY@1300 PO Last administered on 01/18/19 13:47; Admin Dose 0.125 MG; Start 01/10/19 at 13:00 Gabapentin (Neurontin) 600 mg DAILY PO Last administered on 01/18/19 08:21; Admin Dose 600 MG; Start 01/10/19 at 09:00 Empaglifozin (Jardiance) 25 mg DAILY PO Last administered on 01/18/19 08:21; Admin Dose 25 MG; Start 01/10/19 at 09:00 Linagliptin (Tradjenta) 5 mg DAILY PO Last administered on 01/18/19 08:22; Admin Dose 5 MG; Start 01/10/19 at 09:00 Diagnostic Test (Pha) (Accu-Chek) 1 ea AC MEALS AND BEDTIME XX Last administered on 01/18/19 20:49; Admin Dose 1 EA; Start 01/09/19 at 21:00 Acetaminophen (Tylenol Tab) 650 mg Q4H PRN PO MILD PAIN(1-3)OR ELEVATED TEMP; Start 01/09/19 at 20:30 Acetaminophen/ Hydrocodone Bitart ([place] (5/325)) 1 tab Q4H PRN PO MODERATE PAIN LEVEL 4-6 Last administered on 01/18/19 00:56; Admin Dose 1 TAB; Start 01/09/19 at 20:30 Ondansetron HCl (Zofran Inj) 4 mg Q6H PRN IV NAUSEA AND/OR VOMITING Last administered on 01/14/19 19:59; Admin Dose 4 MG; Start 01/09/19 at 20:30 Diagnostic Test (Pha) (Accu-Chek) 1 ea 02 XX Last administered on 01/18/19 02:20; Admin Dose 1 EA; Start 01/10/19 at 02:00 Insulin Aspart (Novolog Insulin Pen) NOVOLOG *MILD* ALGORITHM WITH MEALS BEDTIME SC Last administered on 01/18/19 20:30; Admin Dose 1 UNIT; Start 01/09/19 at 22:30 Miscellaneous Information 1 ea NOTE XX ; Start 01/09/19 at 21:30 Glucose (Glutose) 15 gm Q15M PRN PO DECREASED GLUCOSE; Start 01/09/19 at 21:30 Glucose (Glutose) 22.5 gm Q15M PRN PO DECREASED GLUCOSE; Start 01/09/19 at 21:30 Dextrose (D50w Syringe) 25 ml Q15M PRN IV DECREASED GLUCOSE; Start 01/09/19 at 21:30 Dextrose (D50w Syringe) 50 ml Q15M PRN IV DECREASED GLUCOSE; Start 01/09/19 at 21:30 Glucagon (Glucagen) 1 mg Q15M PRN IM DECREASED GLUCOSE; Start 01/09/19 at 21:30 Glucose (Glutose) 15 gm Q15M PRN BUCCAL DECREASED GLUCOSE; Start 01/09/19 at 21:30 Insulin Glargine (Lantus) 18 units QHS SC Last administered on 01/18/19 20:30; Admin Dose 18 UNITS; Start 01/09/19 at 22:30 Carvedilol (Coreg) 3.125 mg BID PO Last administered on 01/18/19 08:21; Admin Dose 3.125 MG; Start 01/10/19 at 21:00 Vancomycin HCl (Vanco Iv Per Pharmacy) VANCOMYCIN PER PHARMACY PER PROTOCOL XX ; Start 01/11/19 at 02:30 Lisinopril (Zestril) 2.5 mg DAILY PO Last administered on 01/18/19 08:22; Admin Dose 2.5 MG; Start 01/13/19 at 09:00 Senna (Senokot) 1 tab DAILY PRN PO CONSTIPATION Last administered on 01/14/19 16:52; Admin Dose 1 TAB; Start 01/12/19 at 18:30 Docusate Sodium (Colace) 100 mg BID PRN PO CONSTIPATION Last administered on 01/14/19 16:52; Admin Dose 100 MG; Start 01/12/19 at 18:30 Neomycin/ Polymyxin/ Bacitracin (Neosporin Topical Oint) 1 applic DAILY TOP Last administered on 01/18/19 08:23; Admin Dose 1 APPLIC; Start 01/12/19 at 18:30 Furosemide (Lasix) 20 mg DAILY PO Last administered on 01/18/19 08:21; Admin Dose 20 MG; Start 01/15/19 at 09:00 Cyanocobalamin (Vitamin B12 Inj) 1,000 mcg DAILY IM Last administered on 01/18/19 08:20; Admin Dose 1,000 MCG; Start 01/16/19 at 09:00 Vancomycin HCl 1.25 gm/Sodium Chloride 250 ml @ 83.333 mls/ hr Q12H IVPB Last administered on 01/18/19 15:54; Admin Dose 83.333 MLS/HR; Start 01/16/19 at 16:00 Pantoprazole (Protonix Tab) 40 mg DAILY@06 PO Last administered on 01/18/19 04:39; Admin Dose 40 MG; Start 01/17/19 at 06:00 Metronidazole 100 ml @ 100 mls/hr Q8 IVPB Last administered on 01/18/19 13:48; Admin Dose 100 MLS/HR; Start 01/16/19 at 22:00 Cefepime HCl 50 ml @ 100 mls/hr Q12 IVPB Last administered on 01/18/19at 20:49; Admin Dose 100 MLS/HR; Start 01/17/19 at 21:00 Oxycodone HCl (Oxycontin) 10 mg BID PO Last administered on 01/18/19at 15:25; Admin Dose 10 MG; Start 01/18/19 at 15:00 Hydromorphone HCl (Dilaudid) 1 mg Q4H PRN IV SEVERE PAIN LEVEL 7-10 Last administered on 01/18/19at 20:15; Admin Dose 1 MG; Start 01/18/19 at 15:00 KACI TORRES MD January 18, 2019 21:00
[2019-01-19] VITALS (13 sets, daily range): BP systolic 87–117; BP diastolic 46–87; PULSE 60–87; RESP 16–18
[2019-01-19] MEDS: ACCU-CHEK XX SCH ×5 (02:19→21:49)
[2019-01-19] MEDS: VANCOMYCIN HCL 1.25 GM in SOD CHLORIDE 0.9% 250 ML IVPB SCH ×2 (04:12→16:32)
[2019-01-19] MEDS: metroNIDAZOLE 500 MG/NS (PMX) 100 ML IVPB SCH ×3 (05:36→22:41)
[2019-01-19] MEDS: PANTOPRAZOLE (EC) 40 MG TAB PO SCH (05:36)
[2019-01-19] MEDS: HYDROmorphONE 1 MG/ML SYG IV PRN ×3 (05:39→19:39)
--- NOTE | 2019-01-19 07:10 | CONS ---
Assessment/Plan Assessment/Plan Assessment/Plan (Daily) Status post debridement debridement the right human chronic wound Severe peripheral vascular disease status post angioplasty times two, hyperkalemia hypertension coronary artery disease status post coronary artery bypass graft, cardiomyopathy with an ejection fraction 25% Severe peripheral vascular disease resulting in uncontrolled pain with elevation of his leg with light dependent pain is almost 100% resolved. At this time our switches current pain control medication to OxyContin low dose continue with this as needed dose of the Dilaudid force for the control of his pain relief throughout the day. His BUN and creatinine are normal but I will follow to make sure that is renal function does not deteriorate on OxyContin. Consultation Date/Type/Reason Admit Date/Time January 09, 2019 at 18:17 Date/Time of Note DATE: 01/19/19 TIME: 07:08 This is a very pleasant 63-year-old gentleman was admitted to [facility] with right heel necrotic wound. Patient is a long-standing history of severe peripheral vascular disease status post CONSERVATION OR HERITAGE ARCHITECT, history of coronary heart disease status post coronary artery bypass graft. Patient is status post agreement through this hospitalization is been seen by ID as well as cardiology consultations. I am seen this gentleman and pain management consultation secondary to continue right foot pain. Patient describes his pain is ignoring discomfort primarily when he elevates his leg and his legs are dependent he is without pain. Current pain control medications are not achieving optimal control so much so he is unable to participate in therapy. Describes his pain is 9/10 when his legs elevated 3/10 when his leg is in a dependent position with current pain control medications he has control of his pain for short period of time with IV Dilaudid administration. Denies mood changes or social relationship changes however he states that his pain interferes with his overall physical functioning and sleeping patterns. Denies nausea, vomiting, constipation, itching hands, mental cloudiness. He is not negotiating for higher doses of pain control medications on examination he has no negative mood changes does not appear to be intoxicated or unkempt. He is not ask for increases dose of pain control medication just better control is not a attempting to obtain higher doses of pain control medication there's no past medical history of smoking or alcohol abuse. ENT: no complaints Respiratory: no complaints Cardiovascular: no complaints Gastrointestinal: no complaints Genitourinary: no complaints Musculoskeletal: other (HPI) Skin: no complaints Neurologic: no complaints Endocrine: no complaints Psychological: no complaints, nl mood/affect Past Medical History Medical History: congestive heart failure, coronary artery disease, diabetes, high cholesterol, hypertension Home Meds Reported Medications Amiodarone Hcl* (Amiodarone Hcl*) 200 Mg Tablet, 200 MG PO DAILY, #30 TAB 01/09/19 Digoxin* (Digitek*) 125 Mcg Tablet, 0.125 MG PO DAILY, TAB 01/09/19 Rivaroxaban* (Xarelto*) 20 Mg Tablet, 20 MG PO WITH DINNER, TAB 01/09/19 Clopidogrel Bisulfate* (Clopidogrel Bisulfate*) 75 Mg Tablet, 75 MG PO DAILY, #30 TAB 01/09/19 Empagliflozin (Jardiance) 25 Mg Tablet, 25 MG PO DAILY, TAB 01/09/19 Insulin Glargine,Hum.rec.anlog (Basaglar Kwikpen U-100) 100 Unit/1 Ml Insuln.pen, 18 UNIT SC QHS, EA 01/09/19 Sulfamethoxazole/Trimethoprim* (Bactrim Ds* Tablet) 1 Each Tablet, 1 TAB PO BID, TAB FOR 10 DAYS,START TAKING 01/06/19 01/09/19 Tapentadol Hcl (Nucynta) 100 Mg Tablet, 100 MG PO BID, TAB 01/09/19 Gabapentin* (Gabapentin*) 600 Mg Tablet, 600 MG PO DAILY, #60 TAB 01/09/19 Metformin Hcl* (Metformin Hcl*) 1,000 Mg Tablet, 1000 MG PO WITH BREAKFAST DINNE, #60 TAB 01/09/19 Medications Current Medications Amiodarone HCl (Cordarone) 200 mg DAILY PO Last administered on 01/18/19at 08:22; Admin Dose 200 MG; Start 01/10/19 at 09:00 Clopidogrel Bisulfate (plaVIX) 75 mg DAILY PO Last administered on 01/18/19at 08:22; Admin Dose 75 MG; Start 01/10/19 at 09:00 Digoxin (Digoxin) 0.125 mg DAILY@1300 PO Last administered on 01/18/19at 13:47; Admin Dose 0.125 MG; Start 01/10/19 at 13:00 Gabapentin (Neurontin) 600 mg DAILY PO Last administered on 01/18/19at 08:21; Admin Dose 600 MG; Start 01/10/19 at 09:00 Empaglifozin (Jardiance) 25 mg DAILY PO Last administered on 01/18/19 08:21; Admin Dose 25 MG; Start 01/10/19 at 09:00 Linagliptin (Tradjenta) 5 mg DAILY PO Last administered on 01/18/19 08:22; Admin Dose 5 MG; Start 01/10/19 at 09:00 Diagnostic Test (Pha) (Accu-Chek) 1 ea AC MEALS AND BEDTIME XX Last administered on 01/18/19 20:49; Admin Dose 1 EA; Start 01/09/19 at 21:00 Acetaminophen (Tylenol Tab) 650 mg Q4H PRN PO MILD PAIN(1-3)OR ELEVATED TEMP; Start 01/09/19 at 20:30 Acetaminophen/ Hydrocodone Bitart ([place] (5/325)) 1 tab Q4H PRN PO MODERATE PAIN LEVEL 4-6 Last administered on 01/18/19 00:56; Admin Dose 1 TAB; Start 01/09/19 at 20:30 Ondansetron HCl (Zofran Inj) 4 mg Q6H PRN IV NAUSEA AND/OR VOMITING Last administered on 01/14/19 19:59; Admin Dose 4 MG; Start 01/09/19 at 20:30 Diagnostic Test (Pha) (Accu-Chek) 1 ea 02 XX Last administered on 01/19/19 02:19; Admin Dose 1 EA; Start 01/10/19 at 02:00 Insulin Aspart (Novolog Insulin Pen) NOVOLOG *MILD* ALGORITHM WITH MEALS BEDTIME SC Last administered on 01/18/19 20:30; Admin Dose 1 UNIT; Start 01/09/19 at 22:30 Miscellaneous Information 1 ea NOTE XX ; Start 01/09/19 at 21:30 Glucose (Glutose) 15 gm Q15M PRN PO DECREASED GLUCOSE; Start 01/09/19 at 21:30 Glucose (Glutose) 22.5 gm Q15M PRN PO DECREASED GLUCOSE; Start 01/09/19 at 21:30 Dextrose (D50w Syringe) 25 ml Q15M PRN IV DECREASED GLUCOSE; Start 01/09/19 at 2 1:30 Dextrose (D50w Syringe) 50 ml Q15M PRN IV DECREASED GLUCOSE; Start 01/09/19 at 21:30 Glucagon (Glucagen) 1 mg Q15M PRN IM DECREASED GLUCOSE; Start 01/09/19 at 21:30 Glucose (Glutose) 15 gm Q15M PRN BUCCAL DECREASED GLUCOSE; Start 01/09/19 at 21:30 Insulin Glargine (Lantus) 18 units QHS SC Last administered on 01/18/19 20:30; Admin Dose 18 UNITS; Start 01/09/19 at 22:30 Carvedilol (Coreg) 3.125 mg BID PO Last administered on 01/18/19 08:21; Admin Dose 3.125 MG; Start 01/10/19 at 21:00 Vancomycin HCl (Vanco Iv Per Pharmacy) VANCOMYCIN PER PHARMACY PER PROTOCOL XX ; Start 01/11/19 at 02:30 Lisinopril (Zestril) 2.5 mg DAILY PO Last administered on 01/18/19 08:22; Admin Dose 2.5 MG; Start 01/13/19 at 09:00 Senna (Senokot) 1 tab DAILY PRN PO CONSTIPATION Last administered on 01/14/19 16:52; Admin Dose 1 TAB; Start 01/12/19 at 18:30 Docusate Sodium (Colace) 100 mg BID PRN PO CONSTIPATION Last administered on 01/14/19 16:52; Admin Dose 100 MG; Start 01/12/19 at 18:30 Neomycin/ Polymyxin/ Bacitracin (Neosporin Topical Oint) 1 applic DAILY TOP Last administered on 01/18/19 08:23; Admin Dose 1 APPLIC; Start 01/12/19 at 18:30 Furosemide (Lasix) 20 mg DAILY PO Last administered on 01/18/19 08:21; Admin Dose 20 MG; Start 01/15/19 at 09:00 Cyanocobalamin (Vitamin B12 Inj) 1,000 mcg DAILY IM Last administered on 01/18/19 08:20; Admin Dose 1,000 MCG; Start 01/16/19 at 09:00 Vancomycin HCl 1.25 gm/Sodium Chloride 250 ml @ 83.333 mls/ hr Q12H IVPB Last administered on 01/19/19 04:12; Admin Dose 83.333 MLS/HR; Start 01/16/19 at 16:00 Pantoprazole (Protonix Tab) 40 mg DAILY@06 PO Last administered on 01/19/19 05:36; Admin Dose 40 MG; Start 01/17/19 at 06:00 Metronidazole 100 ml @ 100 mls/hr Q8 IVPB Last administered on 01/19/19at 05:36; Admin Dose 100 MLS/HR; Start 01/16/19 at 22:00 Cefepime HCl 50 ml @ 100 mls/hr Q12 IVPB Last administered on 01/18/19at 20:49; Admin Dose 100 MLS/HR; Start 01/17/19 at 21:00 Oxycodone HCl (Oxycontin) 10 mg BID PO Last administered on 01/18/19at 21:05; Admin Dose 10 MG; Start 01/18/19 at 15:00 Hydromorphone HCl (Dilaudid) 1 mg Q4H PRN IV SEVERE PAIN LEVEL 7-10 Last administered on 01/19/19at 05:39; Admin Dose 1 MG; Start 01/18/19 at 15:00 Allergies: Coded Allergies: No Known Allergy (Unverified , 01/09/19) Past Surgical History Past Surgical Hx: coronary bypass surgery Social History Alcohol Use: none Smoking Status: Never smoker Exam/Review of Systems Exam Vitals Vital Signs Date Temp Pulse Resp B/P (MAP) Pulse Ox O2 O2 Flow FiO2 Time Delivery Rate 01/19/19 79 04:00 01/19/19 97.9 18 97/50 (66) 98 04:00 01/17/19 Room Air 14:00 Intake and Output 01/18/19 01/18/19 01/19/19 1515:00 23:00 07:00 IntakeIntake Total 1200 ml 250 ml OutputOutput Total 2100 ml 750 ml BalanceBalance -900 ml -500 ml Constitutional: alert, oriented, well developed Psych: No no complaints, No nl mood/affect, No anxiety, No confusion, No depression, No suicidal, No other Eyes: No nl conjunctiva, No EOMI, No nl lids, No nl sclera, No PERRL, No i cteric, No fundi, disc, No other ENMT: No nl external ears & nose, No nl lips & teeth, No nl nasal mucosa & septum, No mucosa pink and moist, No intubated, No tympanic membranes, No other Respiratory: No clear to auscultation, No normal air movement, No congested cough, No crackles/rales, No diminished breath sounds, No intercostal retraction, No labored breathing, No respirations, No tactile fremitus, No wheezing, No other Cardiovascular: No regular rate and rhythm, No nl pulses, No bruits, No diastolic murmur, No edema, No gallop, No irregular rhythm, No jugular venous distention (JVD), No murmurs/extra sounds, No rub, No systolic murmur, No S3, No S4, No other Gastrointestinal: No soft, No nl liver, spleen, No non-tender, No ascites, No bowel sounds, No distended, No firm, No hepatomegaly, No mass, No rebound or guarding, No splenomegaly, No surgical scars, No tender, No other Musculoskeletal: No nl extremities to inspection, No nl gait and stance, No joint tenderness, No muscle tone, No muscle weakness, No range of motion, No spine non-tender, No swelling, No other 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: No WOUND SPECIALIST II-XII intact, No nl mental status, No nl speech, No nl strength, No confused, No DTR's symmetric, No focal weakness, No lethargic, No numbness, No reflexes, No unresponsive, No other Results Result Diagram: 01/19/19 0554 01/18/19 0557 Results 24hrs Laboratory Tests Test 01/18/19 07:52 01/18/19 11:26 01/18/19 17:37 01/18/19 20:14 Bedside Glucose 123 159 121 183 Test 01/19/19 02:09 01/19/19 05:54 Bedside Glucose 147 White Blood Count 8.0 Red Blood Count 2.68 L Hemoglobin 8.1 L Hematocrit 24.7 L Mean Corpuscular 92.2 Volume Mean Corpuscular 30.2 Hemoglobin Mean Corpuscular 32.8 Hemoglobin Concent Red Cell 15.4 H Distribution Width Platelet Count 242 Mean Platelet Volume 11.3 H Immature 0.900 H Granulocytes % Neutrophils % 64.3 Lymphocytes % 23.1 Monocytes % 8.4 Eosinophils % 3.0 Basophils % 0.3 Nucleated Red Blood 0.0 Cells % Immature 0.070 H Granulocytes # Neutrophils # 5.1 Lymphocytes # 1.8 Monocytes # 0.7 Eosinophils # 0.2 Basophils # 0.0 Nucleated Red Blood 0.0 Cells # Sodium Level 138 Potassium Level 4.2 Chloride Level 104 Carbon Dioxide Level 26 Anion Gap 8 Blood Urea Nitrogen 13 Creatinine 0.50 L Est Glomerular > 60 Filtrat Rate mL/min Glucose Level 119 Calcium Level 8.8 Medications Medication Current Medications Amiodarone HCl (Cordarone) 200 mg DAILY PO Last administered on 01/18/19 08:22; Admin Dose 200 MG; Start 01/10/19 at 09:00 Clopidogrel Bisulfate (plaVIX) 75 mg DAILY PO Last administered on 01/18/19 08:22; Admin Dose 75 MG; Start 01/10/19 at 09:00 Digoxin (Digoxin) 0.125 mg DAILY@1300 PO Last administered on 01/18/19 13:47; Admin Dose 0.125 MG; Start 01/10/19 at 13:00 Gabapentin (Neurontin) 600 mg DAILY PO Last administered on 01/18/19 08:21; Admin Dose 600 MG; Start 01/10/19 at 09:00 Empaglifozin (Jardiance) 25 mg DAILY PO Last administered on 01/18/19 08:21; Admin Dose 25 MG; Start 01/10/19 at 09:00 Linagliptin (Tradjenta) 5 mg DAILY PO Last administered on 01/18/19 08:22; Admin Dose 5 MG; Start 01/10/19 at 09:00 Diagnostic Test (Pha) (Accu-Chek) 1 ea AC MEALS AND BEDTIME XX Last administered on 01/18/19 20:49; Admin Dose 1 EA; Start 01/09/19 at 21:00 Acetaminophen (Tylenol Tab) 650 mg Q4H PRN PO MILD PAIN(1-3)OR ELEVATED TEMP; Start 01/09/19 at 20:30 Acetaminophen/ Hydrocodone Bitart ([place] (5/325)) 1 tab Q4H PRN PO MODERATE PAIN LEVEL 4-6 Last administered on 01/18/19 00:56; Admin Dose 1 TAB; Start 01/09/19 at 20:30 Ondansetron HCl (Zofran Inj) 4 mg Q6H PRN IV NAUSEA AND/OR VOMITING Last administered on 01/14/19 19:59; Admin Dose 4 MG; Start 01/09/19 at 20:30 Diagnostic Test (Pha) (Accu-Chek) 1 ea 02 XX Last administered on 01/19/19 02:19; Admin Dose 1 EA; Start 01/10/19 at 02:00 Insulin Aspart (Novolog Insulin Pen) NOVOLOG *MILD* ALGORITHM WITH MEALS BEDTIME SC Last administered on 01/18/19 20:30; Admin Dose 1 UNIT; Start 01/09/19 at 22:30 Miscellaneous Information 1 ea NOTE XX ; Start 01/09/19 at 21:30 Glucose (Glutose) 15 gm Q15M PRN PO DECREASED GLUCOSE; Start 01/09/19 at 21:30 Glucose (Glutose) 22.5 gm Q15M PRN PO DECREASED GLUCOSE; Start 01/09/19 at 21:30 Dextrose (D50w Syringe) 25 ml Q15M PRN IV DECREASED GLUCOSE; Start 01/09/19 at 21:30 Dextrose (D50w Syringe) 50 ml Q15M PRN IV DECREASED GLUCOSE; Start 01/09/19 at 21:30 Glucagon (Glucagen) 1 mg Q15M PRN IM DECREASED GLUCOSE; Start 01/09/19 at 21:30 Glucose (Glutose) 15 gm Q15M PRN BUCCAL DECREASED GLUCOSE; Start 01/09/19 at 21:30 Insulin Glargine (Lantus) 18 units QHS SC Last administered on 01/18/19 20:30; Admin Dose 18 UNITS; Start 01/09/19 at 22:30 Carvedilol (Coreg) 3.125 mg BID PO Last administered on 01/18/19 08:21; Admin Dose 3.125 MG; Start 01/10/19 at 21:00 Vancomycin HCl (Vanco Iv Per Pharmacy) VANCOMYCIN PER PHARMACY PER PROTOCOL XX ; Start 01/11/19 at 02:30 Lisinopril (Zestril) 2.5 mg DAILY PO Last administered on 01/18/19 08:22; Admin Dose 2.5 MG; Start 01/13/19 at 09:00 Senna (Senokot) 1 tab DAILY PRN PO CONSTIPATION Last administered on 01/14/19 16:52; Admin Dose 1 TAB; Start 01/12/19 at 18:30 Docusate Sodium (Colace) 100 mg BID PRN PO CONSTIPATION Last administered on 01/14/19 16:52; Admin Dose 100 MG; Start 01/12/19 at 18:30 Neomycin/ Polymyxin/ Bacitracin (Neosporin Topical Oint) 1 applic DAILY TOP Last administered on 01/18/19 08:23; Admin Dose 1 APPLIC; Start 01/12/19 at 18:30 Furosemide (Lasix) 20 mg DAILY PO Last administered on 01/18/19 08:21; Admin Dose 20 MG; Start 01/15/19 at 09:00 Cyanocobalamin (Vitamin B12 Inj) 1,000 mcg DAILY IM Last administered on 01/18/19 08:20; Admin Dose 1,000 MCG; Start 01/16/19 at 09:00 Vancomycin HCl 1.25 gm/Sodium Chloride 250 ml @ 83.333 mls/ hr Q12H IVPB Last administered on 01/19/19 04:12; Admin Dose 83.333 MLS/HR; Start 01/16/19 at 16:00 Pantoprazole (Protonix Tab) 40 mg DAILY@06 PO Last administered on 01/19/19 05:36; Admin Dose 40 MG; Start 01/17/19 at 06:00 Metronidazole 100 ml @ 100 mls/hr Q8 IVPB Last administered on 01/19/19 05:36; Admin Dose 100 MLS/HR; Start 01/16/19 at 22:00 Cefepime HCl 50 ml @ 100 mls/hr Q12 IVPB Last administered on 01/18/19 20:49; Admin Dose 100 MLS/HR; Start 01/17/19 at 21:00 Oxycodone HCl (Oxycontin) 10 mg BID PO Last administered on 01/18/19 21:05; Admin Dose 10 MG; Start 01/18/19 at 15:00 Hydromorphone HCl (Dilaudid) 1 mg Q4H PRN IV SEVERE PAIN LEVEL 7-10 Last administered on 01/19/19 05:39; Admin Dose 1 MG; Start 01/18/19 at 15:00 BIGG RICHARDSON January 19, 2019 07:10
[2019-01-19] MEDS: INSULIN ASPART [NOVOLOG] 3 ML PEN SC SCH ×4 (07:55→21:47)
--- NOTE | 2019-01-19 08:30 | CONS ---
Assessment/Plan Assessment/Plan Hospital Course (Demo Recall) 63 yo male with anemia Interval hx: NO abd pain. Has been tolerating PO diet. NPO for possible EGD. 1. Right heel necrotic wound. 2. Cardiomyopathy with ejection fraction of 20% to 30%. 3. Peripheral vascular disease status post PCI, right lower extremity. 4. Coronary artery disease status post coronary artery bypass graft. 5. Status post automatic implantable cardioverter-defibrillator. 6. Hypertension. 7. Diabetes mellitus. 8. Anemia. Patient has a significant drop in hematocrit. So far, clinically, there is no evidence of obvious GI bleeding. 9. Ovoid mass or filling defect arising from lesser curvature of stomach. 10. Pt is pre op for peripheral artery bypass surgery which is on hold for now. CT of abd pelvis:IMPRESSION: 1. No acute intra-abdominal or pelvic abnormality including no evidence of intraperitoneal or retroperitoneal free fluid or hemorrhage seen. 2. There is an ovoid 3.5 cm mass/filling defect arising along the lesser curvature of the stomach, for which endoscopic evaluation is recommended. 3. No evidence of intestinal obstruction. Colonic diverticulosis without diverticulitis. Moderate colonic stool burden. 4. Advanced degenerative changes with chronic bilateral L5 pars defects, grade 2 anterolisthesis, along with associated central canal and foraminal stenosis at L5-S1. Plan Continue PPI EGD planned for today if cardiology gives clearance. He is on Plavix. Last dose yesterday. INR 0.91 Pt examined and plan of care discussed with Dr Roberts Consultation Date/Type/Reason Admit Date/Time January 09, 2019 at 18:17 Initial Consult Date 01/16/19 Requesting Provider: KRISTIN PRYOR MD Date/Time of Note DATE: 01/19/19 TIME: Exam/Review of Systems Exam Vitals Vital Signs Date Temp Pulse Resp B/P (MAP) Pulse Ox O2 O2 Flow FiO2 Time Delivery Rate 01/19/19 98.0 67 16 90/46 (61) 100 07:54 01/17/19 Room Air 14:00 Intake and Output 01/18/19 01/18/19 01/19/19 1515:00 23:00 07:00 IntakeIntake Total 1200 ml 250 ml OutputOutput Total 2100 ml 750 ml BalanceBalance -900 ml -500 ml Constitutional: alert, oriented Psych: no complaints Eyes: nl sclera, PERRL Respiratory: clear to auscultation Gastrointestinal: soft, non-tender Extremities: other (rt foot bandage) 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: nl mental status Results Result Diagram: 01/19/19 0554 01/19/19 0554 Results 24hrs Laboratory Tests Test 01/18/19 11:26 01/18/19 17:37 01/18/19 20:14 01/19/19 02:09 Bedside Glucose 159 121 183 147 Test 01/19/19 05:54 01/19/19 08:03 White Blood Count 8.0 Red Blood Count 2.68 L Hemoglobin 8.1 L Hematocrit 24.7 L Mean Corpuscular 92.2 Volume Mean Corpuscular 30.2 Hemoglobin Mean Corpuscular 32.8 Hemoglobin Concent Red Cell 15.4 H Distribution Width Platelet Count 242 Mean Platelet Volume 11.3 H Immature 0.900 H Granulocytes % Neutrophils % 64.3 Lymphocytes % 23.1 Monocytes % 8.4 Eosinophils % 3.0 Basophils % 0.3 Nucleated Red Blood 0.0 Cells % Immature 0.070 H Granulocytes # Neutrophils # 5.1 Lymphocytes # 1.8 Monocytes # 0.7 Eosinophils # 0.2 Basophils # 0.0 Nucleated Red Blood 0.0 Cells # Sodium Level 138 Potassium Level 4.2 Chloride Level 104 Carbon Dioxide Level 26 Anion Gap 8 Blood Urea Nitrogen 13 Creatinine 0.50 L Est Glomerular > 60 Filtrat Rate mL/min Glucose Level 119 Calcium Level 8.8 Bedside Glucose 132 Medications Medication Current Medications Amiodarone HCl (Cordarone) 200 mg DAILY PO Last administered on 01/18/19 08:22; Admin Dose 200 MG; Start 01/10/19 at 09:00 Clopidogrel Bisulfate (plaVIX) 75 mg DAILY PO Last administered on 01/18/19 08:22; Admin Dose 75 MG; Start 01/10/19 at 09:00 Digoxin (Digoxin) 0.125 mg DAILY@1300 PO Last administered on 01/18/19 13:47; Admin Dose 0.125 MG; Start 01/10/19 at 13:00 Gabapentin (Neurontin) 600 mg DAILY PO Last administered on 01/18/19 08:21; Admin Dose 600 MG; Start 01/10/19 at 09:00 Empaglifozin (Jardiance) 25 mg DAILY PO Last administered on 01/18/19 08:21; Admin Dose 25 MG; Start 01/10/19 at 09:00 Linagliptin (Tradjenta) 5 mg DAILY PO Last administered on 01/18/19 08:22; Admin Dose 5 MG; Start 01/10/19 at 09:00 Diagnostic Test (Pha) (Accu-Chek) 1 ea AC MEALS AND BEDTIME XX Last administered on 01/19/19 08:05; Admin Dose 1 EA; Start 01/09/19 at 21:00 Acetaminophen (Tylenol Tab) 650 mg Q4H PRN PO MILD PAIN(1-3)OR ELEVATED TEMP; Start 01/09/19 at 20:30 Acetaminophen/ Hydrocodone Bitart ([place] (5/325)) 1 tab Q4H PRN PO MODERATE PAIN LEVEL 4-6 Last administered on 01/18/19 00:56; Admin Dose 1 TAB; Start 01/09/19 at 20:30 Ondansetron HCl (Zofran Inj) 4 mg Q6H PRN IV NAUSEA AND/OR VOMITING Last administered on 01/14/19 19:59; Admin Dose 4 MG; Start 01/09/19 at 20:30 Diagnostic Test (Pha) (Accu-Chek) 1 ea 02 XX Last administered on 01/19/19 02:19; Admin Dose 1 EA; Start 01/10/19 at 02:00 Insulin Aspart (Novolog Insulin Pen) NOVOLOG *MILD* ALGORITHM WITH MEALS BEDTIME SC Last administered on 01/18/19 20:30; Admin Dose 1 UNIT; Start 01/09/19 at 22:30 Miscellaneous Information 1 ea NOTE XX ; Start 01/09/19 at 21:30 Glucose (Glutose) 15 gm Q15M PRN PO DECREASED GLUCOSE; Start 01/09/19 at 21:30 Glucose (Glutose) 22.5 gm Q15M PRN PO DECREASED GLUCOSE; Start 01/09/19 at 21:30 Dextrose (D50w Syringe) 25 ml Q15M PRN IV DECREASED GLUCOSE; Start 01/09/19 at 21:30 Dextrose (D50w Syringe) 50 ml Q15M PRN IV DECREASED GLUCOSE; Start 01/09/19 at 21:30 Glucagon (Glucagen) 1 mg Q15M PRN IM DECREASED GLUCOSE; Start 01/09/19 at 21:30 Glucose (Glutose) 15 gm Q15M PRN BUCCAL DECREASED GLUCOSE; Start 01/09/19 at 21:30 Insulin Glargine (Lantus) 18 units QHS SC Last administered on 01/18/19 20:30; Admin Dose 18 UNITS; Start 01/09/19 at 22:30 Carvedilol (Coreg) 3.125 mg BID PO Last administered on 01/18/19 08:21; Admin Dose 3.125 MG; Start 01/10/19 at 21:00 Vancomycin HCl (Vanco Iv Per Pharmacy) VANCOMYCIN PER PHARMACY PER PROTOCOL XX ; Start 01/11/19 at 02:30 Lisinopril (Zestril) 2.5 mg DAILY PO Last administered on 01/18/19 08:22; Admin Dose 2.5 MG; Start 01/13/19 at 09:00 Senna (Senokot) 1 tab DAILY PRN PO CONSTIPATION Last administered on 01/14/19 16:52; Admin Dose 1 TAB; Start 01/12/19 at 18:30 Docusate Sodium (Colace) 100 mg BID PRN PO CONSTIPATION Last administered on 01/14/19 16:52; Admin Dose 100 MG; Start 01/12/19 at 18:30 Neomycin/ Polymyxin/ Bacitracin (Neosporin Topical Oint) 1 applic DAILY TOP [place] [facility] administered on 01/18/19 08:23; Admin Dose 1 APPLIC; Start 01/12/19 at 18:30 Furosemide (Lasix) 20 mg DAILY PO Last administered on 01/18/19 08:21; Admin Dose 20 MG; Start 01/15/19 at 09:00 Cyanocobalamin (Vitamin B12 Inj) 1,000 mcg DAILY IM Last administered on 01/18/19 08:20; Admin Dose 1,000 MCG; Start 01/16/19 at 09:00 Vancomycin HCl 1.25 gm/Sodium Chloride 250 ml @ 83.333 mls/ hr Q12H IVPB Last administered on 01/19/19 04:12; Admin Dose 83.333 MLS/HR; Start 01/16/19 at 16:00 Pantoprazole (Protonix Tab) 40 mg DAILY@06 PO Last administered on 01/19/19 05:36; Admin Dose 40 MG; Start 01/17/19 at 06:00 Metronidazole 100 ml @ 100 mls/hr Q8 IVPB Last administered on 01/19/19 05:3 6; Admin Dose 100 MLS/HR; Start 01/16/19 at 22:00 Cefepime HCl 50 ml @ 100 mls/hr Q12 IVPB Last administered on 01/18/19at 20:49; Admin Dose 100 MLS/HR; Start 01/17/19 at 21:00 Oxycodone HCl (Oxycontin) 10 mg BID PO Last administered on 01/18/19at 21:05; Admin Dose 10 MG; Start 01/18/19 at 15:00 Hydromorphone HCl (Dilaudid) 1 mg Q4H PRN IV SEVERE PAIN LEVEL 7-10 Last administered on 01/19/19 05:39; Admin Dose 1 MG; Start 01/18/19 at 15:00 TAMELA BOWMAN January 19, 2019 08:30
--- NOTE | 2019-01-19 08:42 | CONS ---
Consult Date/Type/Reason Admit Date/Time January 09, 2019 at 18:17 Initial Consult Date 01/10/19 Requesting Provider: KRISTIN PRYOR MD Date/Time of Note DATE: 01/19/19 TIME: 08:40 Subjective NO acute events - pt feels much better now - EGD planned today - OK to proceed if needed - improved CHF now. ROS: No fever, no chills, no nausea, no vomiting, no diarrhea/constipation No recent weight changes No chest pain, no PND, no orthopnea - improved pain, improved SOB No dizziness, blurred vision No thirst, no heat or cold intolerance Objective Vitals Vital Signs Date Temp Pulse Resp B/P (MAP) Pulse Ox O2 O2 Flow FiO2 Time Delivery Rate 01/19/19 98.0 67 16 90/46 (61) 100 07:54 01/17/19 Room Air 14:00 Intake and Output 01/18/19 01/18/19 01/19/19 1515:00 23:00 07:00 IntakeIntake Total 1200 ml 250 ml OutputOutput Total 2100 ml 750 ml BalanceBalance -900 ml -500 ml Exam General: WN/WD/NAD, AOx 3 HEENT: Unicetric/atraumatic/EOMI (follows commands) NECK: JVD elevated, no thyromegaly Lymph: no lymphadenopathy HEART: regular with no S3, II/ systolic murmur at apex, PMI L - ICD, scar LUNGS: Coarse sounds ABD: soft, NT, ND, +BS : Intact Neuro: non focal SKIN: chronic changes EXT: 1+ edema, bandages Results/Medications Result Diagram: 01/19/19 0554 01/19/19 0554 Results 24 hrs Laboratory Tests Test 01/18/19 11:26 01/18/19 17:37 01/18/19 20:14 01/19/19 02:09 Bedside Glucose 159 121 183 147 Test 01/19/19 05:54 01/19/19 08:03 White Blood Count 8.0 Red Blood Count 2.68 L Hemoglobin 8.1 L Hematocrit 24.7 L Mean Corpuscular 92.2 Volume Mean Corpuscular 30.2 Hemoglobin Mean Corpuscular 32.8 Hemoglobin Concent Red Cell 15.4 H Distribution Width Platelet Count 242 Mean Platelet Volume 11.3 H Immature 0.900 H Granulocytes % Neutrophils % 64.3 Lymphocytes % 23.1 Monocytes % 8.4 Eosinophils % 3.0 Basophils % 0.3 Nucleated Red Blood 0.0 Cells % Immature 0.070 H Granulocytes # Neutrophils # 5.1 Lymphocytes # 1.8 Monocytes # 0.7 Eosinophils # 0.2 Basophils # 0.0 Nucleated Red Blood 0.0 Cells # Sodium Level 138 Potassium Level 4.2 Chloride Level 104 Carbon Dioxide Level 26 Anion Gap 8 Blood Urea Nitrogen 13 Creatinine 0.50 L Est Glomerular > 60 Filtrat Rate mL/min Glucose Level 119 Calcium Level 8.8 Bedside Glucose 132 Home Meds Reported Medications Amiodarone Hcl* (Amiodarone Hcl*) 200 Mg Tablet, 200 MG PO DAILY, #30 TAB 01/09/19 Digoxin* (Digitek*) 125 Mcg Tablet, 0.125 MG PO DAILY, TAB 01/09/19 Rivaroxaban* (Xarelto*) 20 Mg Tablet, 20 MG PO WITH DINNER, TAB 01/09/19 Clopidogrel Bisulfate* (Clopidogrel Bisulfate*) 75 Mg Tablet, 75 MG PO DAILY, #30 TAB 01/09/19 Empagliflozin (Jardiance) 25 Mg Tablet, 25 MG PO DAILY, TAB 01/09/19 Insulin Glargine,Hum.rec.anlog (Basaglar Kwikpen U-100) 100 Unit/1 Ml Insuln.pen, 18 UNIT SC QHS, EA 01/09/19 Sulfamethoxazole/Trimethoprim* (Bactrim Ds* Tablet) 1 Each Tablet, 1 TAB PO BID, TAB FOR 10 DAYS,START TAKING 01/06/19 01/09/19 Tapentadol Hcl (Nucynta) 100 Mg Tablet, 100 MG PO BID, TAB 01/09/19 Gabapentin* (Gabapentin*) 600 Mg Tablet, 600 MG PO DAILY, #60 TAB 01/09/19 Metformin Hcl* (Metformin Hcl*) 1,000 Mg Tablet, 1000 MG PO WITH BREAKFAST DINN E, #60 TAB 01/09/19 Medications Current Medications Amiodarone HCl (Cordarone) 200 mg DAILY PO Last administered on 01/18/19at 08:22; Admin Dose 200 MG; Start 01/10/19 at 09:00 Clopidogrel Bisulfate (plaVIX) 75 mg DAILY PO Last administered on 01/18/19at 08:22; Admin Dose 75 MG; Start 01/10/19 at 09:00 Digoxin (Digoxin) 0.125 mg DAILY@1300 PO Last administered on 01/18/19 13:47; Admin Dose 0.125 MG; Start 01/10/19 at 13:00 Gabapentin (Neurontin) 600 mg DAILY PO Last administered on 01/18/19 08:21; Admin Dose 600 MG; Start 01/10/19 at 09:00 Empaglifozin (Jardiance) 25 mg DAILY PO Last administered on 01/18/19 08:21; Admin Dose 25 MG; Start 01/10/19 at 09:00 Linagliptin (Tradjenta) 5 mg DAILY PO Last administered on 01/18/19 08:22; Admin Dose 5 MG; Start 01/10/19 at 09:00 Diagnostic Test (Pha) (Accu-Chek) 1 ea AC MEALS AND BEDTIME XX Last admin istered on 01/19/19 08:05; Admin Dose 1 EA; Start 01/09/19 at 21:00 Acetaminophen (Tylenol Tab) 650 mg Q4H PRN PO MILD PAIN(1-3)OR ELEVATED TEMP; Start 01/09/19 at 20:30 Acetaminophen/ Hydrocodone Bitart ([place] (5/325)) 1 tab Q4H PRN PO MODERATE PAIN LEVEL 4-6 Last administered on 01/18/19 00:56; Admin Dose 1 TAB; Start 01/09/19 at 20:30 Ondansetron HCl (Zofran Inj) 4 mg Q6H PRN IV NAUSEA AND/OR VOMITING Last administered on 01/14/19 19:59; Admin Dose 4 MG; Start 01/09/19 at 20:30 Diagnostic Test (Pha) (Accu-Chek) 1 ea 02 XX Last administered on 01/19/19 02:19; Admin Dose 1 EA; Start 01/10/19 at 02:00 Insulin Aspart (Novolog Insulin Pen) NOVOLOG *MILD* ALGORITHM WITH MEALS BEDTIME SC Last administered on 01/18/19 20:30; Admin Dose 1 UNIT; Start 01/09/19 at 22:30 Miscellaneous Information 1 ea NOTE XX ; Start 01/09/19 at 21:30 Glucose (Glutose) 15 gm Q15M PRN PO DECREASED GLUCOSE; Start 01/09/19 at 21:30 Glucose (Glutose) 22.5 gm Q15M PRN PO DECREASED GLUCOSE; Start 01/09/19 at 21:30 Dextrose (D50w Syringe) 25 ml Q15M PRN IV DECREASED GLUCOSE; Start 01/09/19 at 21:30 Dextrose (D50w Syringe) 50 ml Q15M PRN IV DECREASED GLUCOSE; Start 01/09/19 at 21:30 Glucagon (Glucagen) 1 mg Q15M PRN IM DECREASED GLUCOSE; Start 01/09/19 at 21:30 Glucose (Glutose) 15 gm Q15M PRN BUCCAL DECREASED GLUCOSE; Start 01/09/19 at 21:30 Insulin Glargine (Lantus) 18 units QHS SC Last administered on 01/18/19 20:30; Admin Dose 18 UNITS; Start 01/09/19 at 22:30 Carvedilol (Coreg) 3.125 mg BID PO Last administered on 01/18/19 08:21; Admin Dose 3.125 MG; Start 01/10/19 at 21:00 Vancomycin HCl (Vanco Iv Per Pharmacy) VANCOMYCIN PER PHARMACY PER PROTOCOL XX ; Start 01/11/19 at 02:30 Lisinopril (Zestril) 2.5 mg DAILY PO Last administered on 01/18/19 08:22; Admin Dose 2.5 MG; Start 01/13/19 at 09:00 Senna (Senokot) 1 tab DAILY PRN PO CONSTIPATION Last administered on 01/14/19 16:52; Admin Dose 1 TAB; Start 01/12/19 at 18:30 Docusate Sodium (Colace) 100 mg BID PRN PO CONSTIPATION Last administered on 01/14/19 16:52; Admin Dose 100 MG; Start 01/12/19 at 18:30 Neomycin/ Polymyxin/ Bacitracin (Neosporin Topical Oint) 1 applic DAILY TOP Last administered on 01/18/19 08:23; Admin Dose 1 APPLIC; Start 01/12/19 at 18:30 Furosemide (Lasix) 20 mg DAILY PO Last administered on 01/18/19 08:21; Admin Dose 20 MG; Start 01/15/19 at 09:00 Cyanocobalamin (Vitamin B12 Inj) 1,000 mcg DAILY IM Last administered on 01/18/19 08:20; Admin Dose 1,000 MCG; Start 01/16/19 at 09:00 Vancomycin HCl 1.25 gm/Sodium Chloride 250 ml @ 83.333 mls/ hr Q12H IVPB Last administered on 01/19/19at 04:12; Admin Dose 83.333 MLS/HR; Start 01/16/19 at 16:00 Pantoprazole (Protonix Tab) 40 mg DAILY@06 PO Last administered on 01/19/19at 05:36; Admin Dose 40 MG; Start 01/17/19 at 06:00 Metronidazole 100 ml @ 100 mls/hr Q8 IVPB Last administered on 01/19/19at 05:36; Admin Dose 100 MLS/HR; Start 01/16/19 at 22:00 Cefepime HCl 50 ml @ 100 mls/hr Q12 IVPB Last administered on 01/18/19at 20:49; Admin Dose 100 MLS/HR; Start 01/17/19 at 21:00 Oxycodone HCl (Oxycontin) 10 mg BID PO Last administered on 01/18/19at 21:05; Admin Dose 10 MG; Start 01/18/19 at 15:00 Hydromorphone HCl (Dilaudid) 1 mg Q4H PRN IV SEVERE PAIN LEVEL 7-10 Last administered on 01/19/19at 05:39; Admin Dose 1 MG; Start 01/18/19 at 15:00 Assessment/Plan Hospital Course (Demo Recall) 1.Pre-op for peripheral bypass surgery. Lexiscan with no ischemia/+scar EF 28%. Echo EF 25%. OK to proceed to surgery at moderate CV risk - stable now - on hold for now - con't wound care. Treated. Pt planned for EGD - OK to proceed if needed from cardiac standpoint. 2.Cardiomyopathy with low EF-severely depressed by echo this admit - mild CHF, con't gentle diuresis - stable fluid satus. BiV upgrade planned per Dr. Herrera. Jagdish. 3.HTN - well Rx - on therapy now - in good range now. TREATED. 4.HL 5.Non-healing LE ulcer - in bandage, will follow - con't wound care. Pain better Rx. 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 A. Fib - in sinus now, paroxysmal - on amio - off anti-coag with low H/H MIGUEL WADE MD January 19, 2019 08:42
[2019-01-19] MEDS: LISINOPRIL 5 MG TAB PO SCH (09:00)
[2019-01-19] MEDS: CLOPIDOGREL 75 MG TAB PO SCH (09:00)
[2019-01-19] MEDS: NEOMYC/POLYMYX/BACIT 30 GM OINT TOP SCH (09:18)
[2019-01-19] MEDS: LINAGLIPTIN 5 MG TABLET PO SCH (09:19)
[2019-01-19] MEDS: oxyCODONE (CR) 10 MG TAB [oxyCONTIN] PO SCH ×2 (09:19→22:41)
[2019-01-19] MEDS: GABAPENTIN 300 MG CAP PO SCH (09:19)
[2019-01-19] MEDS: AMIODARONE 200 MG TAB PO SCH (09:20)
[2019-01-19] MEDS: EMPAGLIFLOZIN 10 MG TABLET PO SCH (09:21)
[2019-01-19] MEDS: CYANOCOBALAMIN 1000 MCG INJ IM SCH (09:21)
[2019-01-19] MEDS: FUROSEMIDE 20 MG TAB PO SCH (09:22)
[2019-01-19] MEDS: CEFEPIME 2GM/50 ML (PMX) 50 ML IVPB SCH ×2 (09:30→21:26)
--- NOTE | 2019-01-19 12:48 | CONS ---
Assessment/Plan Assessment/Plan Hospital Course (Demo Recall) - polymicrobial infection of non-healing ulcer of R heel. CT on 01/10/2019 did not show evidence of OM. ESR 26 on 01/09/2019 and 37 on 01/12/2019; superficial wound cx Pseudomonas, E. Coli, Enterococcus (isolated from broth only), scant Proteus, and scant CoNS - s/p Debridement of the right calcaneal ulceration 01/13/2019; intraop cx grew E. Coli, Proteus, and Enterococcus - chronic wound of R heel, in the past the wound culture grew E. coli - h/o OM of R foot, h/o 6 weeks of IV vancomycin and ceftriaxone in 2018. Pt remembers it was a "Staph infection." - trauma to R knee - anemia requiring PRBC - PAF - CAD s/p CABG - HTN - CM with EF 25% - h/o AICD placement - PVD - h/o aortogram, RLE runoff and percutaneous angioplasty of the posterior tibial artery and the anterior tibial artery in 10/2018 - DM - Hgb A1c 7.6% - HLD associated with DM Recommendations: - Continue Cefepime (restart 01/17/2019-) for Pseudomonas, E. Coli and Proteus. Micro Lab who confirmed sensis of Cefepime to E. Coli and Proteus. E.coli is resistant to Amp-sulbactam - Continue IV vancomycin (01/11/2019-) - Continue Flagyl IV (01/16/19 -) - Consider PICC line - Will likely require 4-6 weeks abx Consultation Date/Type/Reason Admit Date/Time January 09, 2019 at 18:17 Initial Consult Date 01/10/19 Requesting Provider: KRISTIN PRYOR MD Date/Time of Note DATE: 01/19/19 TIME: 12:47 24 HR Interval Summary Free Text/Dictation going for EGD Exam/Review of Systems Exam Vitals Vital Signs Date Temp Pulse Resp B/P (MAP) Pulse Ox O2 O2 Flow FiO2 Time Delivery Rate 01/19/19 97.5 77 18 110/60 98 12:14 (77) 01/17/19 Room Air 14:00 Intake and Output 01/18/19 01/18/19 01/19/19 1515:00 23:00 07:00 IntakeIntake Total 1200 ml 250 ml OutputOutput Total 2100 ml 750 ml BalanceBalance -900 ml -500 ml Constitutional: alert, oriented, well developed Psych: no complaints, nl mood/affect Head: normocephalic, atraumatic Eyes: nl conjunctiva, EOMI, nl lids, nl sclera, PERRL ENMT: nl external ears & nose, nl lips & teeth, nl nasal mucosa & septum Respiratory: clear to auscultation, normal air movement Cardiovascular: regular rate and rhythm, nl pulses Gastrointestinal: soft, nl liver, spleen, non-tender Results Result Diagram: 01/19/19 0554 01/19/19 0554 Results 24hrs Laboratory Tests Test 01/18/19 17:37 01/18/19 20:14 01/19/19 02:09 01/19/19 05:54 Bedside Glucose 121 183 147 White Blood Count 8.0 Red Blood Count 2.68 L Hemoglobin 8.1 L Hematocrit 24.7 L Mean Corpuscular 92.2 Volume Mean Corpuscular 30.2 Hemoglobin Mean Corpuscular 32.8 Hemoglobin Concent Red Cell 15.4 H Distribution Width Platelet Count 242 Mean Platelet Volume 11.3 H Immature 0.900 H Granulocytes % Neutrophils % 64.3 Lymphocytes % 23.1 Monocytes % 8.4 Eosinophils % 3.0 Basophils % 0.3 Nucleated Red Blood 0.0 Cells % Immature 0.070 H Granulocytes # Neutrophils # 5.1 Lymphocytes # 1.8 Monocytes # 0.7 Eosinophils # 0.2 Basophils # 0.0 Nucleated Red Blood 0.0 Cells # Sodium Level 138 Potassium Level 4.2 Chloride Level 104 Carbon Dioxide Level 26 Anion Gap 8 Blood Urea Nitrogen 13 Creatinine 0.50 L Est Glomerular > 60 Filtrat Rate mL/min Glucose Level 119 Calcium Level 8.8 Test 01/19/19 08:03 01/19/19 11:49 Bedside Glucose 132 134 Medications Medication Current Medications Amiodarone HCl (Cordarone) 200 mg DAILY PO Last administered on 01/19/19at 09:20; Admin Dose 200 MG; Start 01/10/19 at 09:00 Clopidogrel Bisulfate (plaVIX) 75 mg DAILY PO Last administered on 01/18/19at 08:22; Admin Dose 75 MG; Start 01/10/19 at 09:00 Digoxin (Digoxin) 0.125 mg DAILY@1300 PO Last administered on 01/18/19 13:47; Admin Dose 0.125 MG; Start 01/10/19 at 13:00 Gabapentin (Neurontin) 600 mg DAILY PO Last administered on 01/19/19 09:19; Admin Dose 600 MG; Start 01/10/19 at 09:00 Empaglifozin (Jardiance) 25 mg DAILY PO Last administered on 01/19/19 09:21; Admin Dose 25 MG; Start 01/10/19 at 09:00 Linagliptin (Tradjenta) 5 mg DAILY PO Last administered on 01/19/19 09:19; Admin Dose 5 MG; Start 01/10/19 at 09:00 Diagnostic Test (Pha) (Accu-Chek) 1 ea AC MEALS AND BEDTIME XX Last administered on 01/19/19 08:05; Admin Dose 1 EA; Start 01/09/19 at 21:00 Acetaminophen (Tylenol Tab) 650 mg Q4H PRN PO MILD PAIN(1-3)OR ELEVATED TEMP; Start 01/09/19 at 20:30 Acetaminophen/ Hydrocodone Bitart ([place] (5/325)) 1 tab Q4H PRN PO MODERATE PAIN LEVEL 4-6 Last administered on 01/18/19 00:56; Admin Dose 1 TAB; Start 01/09/19 at 20:30 Ondansetron HCl (Zofran Inj) 4 mg Q6H PRN IV NAUSEA AND/OR VOMITING Last administered on 01/14/19 19:59; Admin Dose 4 MG; Start 01/09/19 at 20:30 Diagnostic Test (Pha) (Accu-Chek) 1 ea 02 XX Last administered on 01/19/19 02:19; Admin Dose 1 EA; Start 01/10/19 at 02:00 Insulin Aspart (Novolog Insulin Pen) NOVOLOG *MILD* ALGORITHM WITH MEALS BEDTIME SC Last administered on 01/18/19 20:30; Admin Dose 1 UNIT; Start 01/09/19 at 22:30 Miscellaneous Information 1 ea NOTE XX ; Start 01/09/19 at 21:30 Glucose (Glutose) 15 gm Q15M PRN PO DECREASED GLUCOSE; Start 01/09/19 at 21:30 Glucose (Glutose) 22.5 gm Q15M PRN PO DECREASED GLUCOSE; Start 01/09/19 at 21:30 Dextrose (D50w Syringe) 25 ml Q15M PRN IV DECREASED GLUCOSE; Start 01/09/19 at 21:30 Dextrose (D50w Syringe) 50 ml Q15M PRN IV DECREASED GLUCOSE; Start 01/09/19 at 21:30 Glucagon (Glucagen) 1 mg Q15M PRN IM DECREASED GLUCOSE; Start 01/09/19 at 21:30 Glucose (Glutose) 15 gm Q15M PRN BUCCAL DECREASED GLUCOSE; Start 01/09/19 at 21:30 Insulin Glargine (Lantus) 18 units QHS SC Last administered on 01/18/19 20:30; Admin Dose 18 UNITS; Start 01/09/19 at 22:30 Carvedilol (Coreg) 3.125 mg BID PO Last administered on 01/18/19 08:21; Admin Dose 3.125 MG; Start 01/10/19 at 21:00 Vancomycin HCl (Vanco Iv Per Pharmacy) VANCOMYCIN PER PHARMACY PER PROTOCOL XX ; Start 01/11/19 at 02:30 Lisinopril (Zestril) 2.5 mg DAILY PO Last administered on 01/18/19 08:22; Admin Dose 2.5 MG; Start 01/13/19 at 09:00 Senna (Senokot) 1 tab DAILY PRN PO CONSTIPATION Last administered on 01/14/19 16:52; Admin Dose 1 TAB; Start 01/12/19 at 18:30 Docusate Sodium (Colace) 100 mg BID PRN PO CONSTIPATION Last administered on 01/14/19 16:52; Admin Dose 100 MG; Start 01/12/19 at 18:30 Neomycin/ Polymyxin/ Bacitracin (Neosporin Topical Oint) 1 applic DAILY TOP Last administered on 01/19/19 09:18; Admin Dose 1 APPLIC; Start 01/12/19 at 18:30 Furosemide (Lasix) 20 mg DAILY PO Last administered on 01/19/19 09:22; Admin Dose 20 MG; Start 01/15/19 at 09:00 Cyanocobalamin (Vitamin B12 Inj) 1,000 mcg DAILY IM Last administered on 01/19/19 09:21; Admin Dose 1,000 MCG; Start 01/16/19 at 09:00 Vancomycin HCl 1.25 gm/Sodium Chloride 250 ml @ 83.333 mls/ hr Q12H IVPB Last administered on 01/19/19 04:12; Admin Dose 83.333 MLS/HR; Start 01/16/19 at 16:00 Pantoprazole (Protonix Tab) 40 mg DAILY@06 PO Last administered on 01/19/19 05:36; Admin Dose 40 MG; Start 01/17/19 at 06:00 Metronidazole 100 ml @ 100 mls/hr Q8 IVPB Last administered on 01/19/19at 05:36; Admin Dose 100 MLS/HR; Start 01/16/19 at 22:00 Cefepime HCl 50 ml @ 100 mls/hr Q12 IVPB Last administered on 01/19/19 09:30; Admin Dose 100 MLS/HR; Start 01/17/19 at 21:00 Oxycodone HCl (Oxycontin) 10 mg BID PO Last administered on 01/19/19 09:19; Admin Dose 10 MG; Start 01/18/19 at 15:00 Hydromorphone HCl (Dilaudid) 1 mg Q4H PRN IV SEVERE PAIN LEVEL 7-10 Last administered on 01/19/19at 10:46; Admin Dose 1 MG; Start 01/18/19 at 15:00 Miscellaneous Information (*Rx Drug Level Order Reminder*) VANCO TROUGH ON 01/07... 1500 ONCE XX ; Start 01/20/19 at 15:00; Stop 01/20/19 at 15:01 DENITA WOMACK MD January 19, 2019 12:48
[2019-01-19] MEDS: DIGOXIN 0.125 MG TAB PO SCH (13:18)
--- NOTE | 2019-01-19 14:54 | PN ---
Date/Time of Note Date/Time of Note DATE: 01/19/19 TIME: 14:49 Assessment/Plan VTE Prophylaxis Risk score (from Ns)>0 risk: 5 SCD applied (from Ns): Yes Pharmacological prophylaxis: NA/contraindicated Pharm contraindication: surgical contra Lines/Catheters IV Catheter Type (from Nrsg): Central Line Central line still needed: Yes Urinary Cath still in place: No Assessment/Plan Hospital Course Pt is awake, alert, sitting in chair eating dinner, pain is well controlled, plan for EGD tomorrow. Start pt NPO from midnight. Assessment/Plan -Gastric mass, plan for EGD today. Continue PPI. Dr. Han is following in [facility] consultation. -New onset of anemia and hypotension requiring blood transfusion on 01/15/2019, stool for OB is negative. -Right heel necrotic wound. Dr. Mata is following in podiatry consultation. Status post debridement. Continue antibiotics per ID. Dr. Landa is following in infection disease consultation. -Chronic peripheral vascular disease, history of angioplasty x2. Dr. Sheppard is following in vascular surgery consultation. Plan for a right pop DP bypass on Saturday. -Coronary artery disease, status post coronary artery bypass graft. Continue Plavix. -Cardiomyopathy with ejection fraction of 25%. Continue Coreg. Dr. Foster is following in cardiology consultation. -Status post AICD. -Hx of Hypertension. -Diabetes hemoglobin A1c 7.6. Continue Lantus and NovoLog. -Right knee contusion and abrasion status post fall. Status post evaluation by Dr. Zelaya and orthopedic surgery. No signs of fracture or dystrophic dislocation. -Chronic low back pain with significant spondylolisthesis grade II at the level of L5 to S1. Further recommendations based on clinical course. Plan of care discussed with Dr. Mann. Result Diagram: 01/19/19 0554 01/19/19 0554 Results 24hrs Laboratory Tests Test 01/18/19 17:37 01/18/19 20:14 01/19/19 02:09 01/19/19 05:54 Bedside Glucose 121 183 147 White Blood Count 8.0 Red Blood Count 2.68 L Hemoglobin 8.1 L Hematocrit 24.7 L Mean Corpuscular 92.2 Volume Mean Corpuscular 30.2 Hemoglobin Mean Corpuscular 32.8 Hemoglobin Concent Red Cell 15.4 H Distribution Width Platelet Count 242 Mean Platelet Volume 11.3 H Immature 0.900 H Granulocytes % Neutrophils % 64.3 Lymphocytes % 23.1 Monocytes % 8.4 Eosinophils % 3.0 Basophils % 0.3 Nucleated Red Blood 0.0 Cells % Immature 0.070 H Granulocytes # Neutrophils # 5.1 Lymphocytes # 1.8 Monocytes # 0.7 Eosinophils # 0.2 Basophils # 0.0 Nucleated Red Blood 0.0 Cells # Sodium Level 138 Potassium Level 4.2 Chloride Level 104 Carbon Dioxide Level 26 Anion Gap 8 Blood Urea Nitrogen 13 Creatinine 0.50 L Est Glomerular > 60 Filtrat Rate mL/min Glucose Level 119 Calcium Level 8.8 Test 01/19/19 08:03 01/19/19 11:49 Bedside Glucose 132 134 Exam/Review of Systems Exam Vitals Vital Signs Date Temp Pulse Resp B/P (MAP) Pulse Ox O2 O2 Flow FiO2 Time Delivery Rate 01/19/19 97.5 77 18 110/60 98 12:14 (77) 01/17/19 Room Air 14:00 Intake and Output 01/18/19 01/18/19 01/19/19 1515:00 23:00 07:00 IntakeIntake Total 1200 ml 250 ml OutputOutput Total 2100 ml 750 ml BalanceBalance -900 ml -500 ml Exam Constitutional: alert, oriented Respiratory: clear to auscultation Cardiovascular: Regular rhythm and rate, AICD Gastrointestinal: soft, non-tender Extremities: normal pulses, other (Right heel wound) Right chest triple lumen catheter Results Results 24hrs Laboratory Tests Test 01/18/19 17:37 01/18/19 20:14 01/19/19 02:09 01/19/19 05:54 Bedside Glucose 121 183 147 White Blood Count 8.0 Red Blood Count 2.68 L Hemoglobin 8.1 L Hematocrit 24.7 L Mean Corpuscular 92.2 Volume Mean Corpuscular 30.2 Hemoglobin Mean Corpuscular 32.8 Hemoglobin Concent Red Cell 15.4 H Distribution Width Platelet Count 242 Mean Platelet Volume 11.3 H Immature 0.900 H Granulocytes % Neutrophils % 64.3 Lymphocytes % 23.1 Monocytes % 8.4 Eosinophils % 3.0 Basophils % 0.3 Nucleated Red Blood 0.0 Cells % Immature 0.070 H Granulocytes # Neutrophils # 5.1 Lymphocytes # 1.8 Monocytes # 0.7 Eosinophils # 0.2 Basophils # 0.0 Nucleated Red Blood 0.0 Cells # Sodium Level 138 Potassium Level 4.2 Chloride Level 104 Carbon Dioxide Level 26 Anion Gap 8 Blood Urea Nitrogen 13 Creatinine 0.50 L Est Glomerular > 60 Filtrat Rate mL/min Glucose Level 119 Calcium Level 8.8 Test 01/19/19 08:03 01/19/19 11:49 Bedside Glucose 132 134 Medications Medication Current Medications Amiodarone HCl (Cordarone) 200 mg DAILY PO Last administered on 01/19/19 09:20; Admin Dose 200 MG; Start 01/10/19 at 09:00 Clopidogrel Bisulfate (plaVIX) 75 mg DAILY PO Last administered on 01/18/19 08:22; Admin Dose 75 MG; Start 01/10/19 at 09:00 Digoxin (Digoxin) 0.125 mg DAILY@1300 PO Last administered on 01/19/19 13:18; Admin Dose 0.125 MG; Start 01/10/19 at 13:00 Gabapentin (Neurontin) 600 mg DAILY PO Last administered on 01/19/19 09:19; Admin Dose 600 MG; Start 01/10/19 at 09:00 Empaglifozin (Jardiance) 25 mg DAILY PO Last administered on 01/19/19 09:21; Admin Dose 25 MG; Start 01/10/19 at 09:00 Linagliptin (Tradjenta) 5 mg DAILY PO Last administered on 01/19/19 09:19; Admin Dose 5 MG; Start 01/10/19 at 09:00 Diagnostic Test (Pha) (Accu-Chek) 1 ea AC MEALS AND BEDTIME XX Last administered on 01/19/19 08:05; Admin Dose 1 EA; Start 01/09/19 at 21:00 Acetaminophen (Tylenol Tab) 650 mg Q4H PRN PO MILD PAIN(1-3)OR ELEVATED TEMP; Start 01/09/19 at 20:30 Acetaminophen/ Hydrocodone Bitart ([place] (5/325)) 1 tab Q4H PRN PO MODERATE PA IN LEVEL 4-6 Last administered on 01/18/19 00:56; Admin Dose 1 TAB; Start 01/09/19 at 20:30 Ondansetron HCl (Zofran Inj) 4 mg Q6H PRN IV NAUSEA AND/OR VOMITING Last administered on 01/14/19 19:59; Admin Dose 4 MG; Start 01/09/19 at 20:30 Diagnostic Test (Pha) (Accu-Chek) 1 ea 02 XX Last administered on 01/19/19 02:19; Admin Dose 1 EA; Start 01/10/19 at 02:00 Insulin Aspart (Novolog Insulin Pen) NOVOLOG *MILD* ALGORITHM WITH MEALS BEDTIME SC Last administered on 01/18/19 20:30; Admin Dose 1 UNIT; Start 01/09/19 at 22:30 Miscellaneous Information 1 ea NOTE XX ; Start 01/09/19 at 21:30 Glucose (Glutose) 15 gm Q15M PRN PO DECREASED GLUCOSE; Start 01/09/19 at 21:30 Glucose (Glutose) 22.5 gm Q15M PRN PO DECREASED GLUCOSE; Start 01/09/19 at 21:30 Dextrose (D50w Syringe) 25 ml Q15M PRN IV DECREASED GLUCOSE; Start 01/09/19 at 21:30 Dextrose (D50w Syringe) 50 ml Q15M PRN IV DECREASED GLUCOSE; Start 01/09/19 at 21:30 Glucagon (Glucagen) 1 mg Q15M PRN IM DECREASED GLUCOSE; Start 01/09/19 at 21:30 Glucose (Glutose) 15 gm Q15M PRN BUCCAL DECREASED GLUCOSE; Start 01/09/19 at 21:30 Insulin Glargine (Lantus) 18 units QHS SC Last administered on 01/18/19 20:30; Admin Dose 18 UNITS; Start 01/09/19 at 22:30 Carvedilol (Coreg) 3.125 mg BID PO Last administered on 01/18/19 08:21; Admin Dose 3.125 MG; Start 01/10/19 at 21:00 Vancomycin HCl (Vanco Iv Per Pharmacy) VANCOMYCIN PER PHARMACY PER PROTOCOL XX ; Start 01/11/19 at 02:30 Lisinopril (Zestril) 2.5 mg DAILY PO Last administered on 01/18/19 08:22; Admin Dose 2.5 MG; Start 01/13/19 at 09:00 Senna (Senokot) 1 tab DAILY PRN PO CONSTIPATION Last administered on 01/14/19 16:52; Admin Dose 1 TAB; Start 01/12/19 at 18:30 Docusate Sodium (Colace) 100 mg BID PRN PO CONSTIPATION Last administered on 01/14/19 16:52; Admin Dose 100 MG; Start 01/12/19 at 18:30 Neomycin/ Polymyxin/ Bacitracin (Neosporin Topical Oint) 1 applic DAILY TOP Last administered on 01/19/19 09:18; Admin Dose 1 APPLIC; Start 01/12/19 at 18:30 Furosemide (Lasix) 20 mg DAILY PO Last administered on 01/19/19 09:22; Admin Dose 20 MG; Start 01/15/19 at 09:00 Cyanocobalamin (Vitamin B12 Inj) 1,000 mcg DAILY IM Last administered on 01/19/19 09:21; Admin Dose 1,000 MCG; Start 01/16/19 at 09:00 Vancomycin HCl 1.25 gm/Sodium Chloride 250 ml @ 83.333 mls/ hr Q12H IVPB Last administered on 01/19/19 04:12; Admin Dose 83.333 MLS/HR; Start 01/16/19 at 16:00 Pantoprazole (Protonix Tab) 40 mg DAILY@06 PO Last administered on 01/19/19 05:36; Admin Dose 40 MG; Start 01/17/19 at 06:00 Metronidazole 100 ml @ 100 mls/hr Q8 IVPB Last administered on 01/19/19 13:18; Admin Dose 100 MLS/HR; Start 01/16/19 at 22:00 Cefepime HCl 50 ml @ 100 mls/hr Q12 IVPB Last administered on 01/19/19 09:30; Admin Dose 100 MLS/HR; Start 01/17/19 at 21:00 Oxycodone HCl (Oxycontin) 10 mg BID PO Last administered on 01/19/19 09:19; Admin Dose 10 MG; Start 01/18/19 at 15:00 Hydromorphone HCl (Dilaudid) 1 mg Q4H PRN IV SEVERE PAIN LEVEL 7-10 Last administered on 01/19/19 10:46; Admin Dose 1 MG; Start 01/18/19 at 15:00 Miscellaneous Information (*Rx Drug Level Order Reminder*) VANCO TROUGH ON 01/07... 1500 ONCE XX ; Start 01/20/19 at 15:00; Stop 01/20/19 at 15:01 RAMESH SOLORZANO January 19, 2019 14:54
--- NOTE | 2019-01-19 16:14 | CONS ---
Assessment/Plan Assessment/Plan Hospital Course (Demo Recall) Bandage intact. Pt. having less pain at surgical site. Will remove dressing and evaluate allograft next week. Will see him in [facility] if discharged prior to next week. Consultation Date/Type/Reason Admit Date/Time January 09, 2019 at 18:17 Initial Consult Date 01/16/19 Requesting Provider: KRISTIN PRYOR MD Date/Time of Note DATE: 01/19/19 TIME: 16:11 24 HR Interval Summary Free Text/Dictation s/p Debridement of plantar calcaneal ulceration with application of allograft. Exam/Review of Systems Exam Vitals Vital Signs Date Temp Pulse Resp B/P (MAP) Pulse Ox O2 O2 Flow FiO2 Time Delivery Rate 01/19/19 98.0 75 18 100/55 98 16:08 (70) 01/17/19 Room Air 14:00 Intake and Output 01/18/19 01/18/19 01/19/19 1414:59 22:59 06:59 IntakeIntake Total 1200 ml 250 ml OutputOutput Total 2100 ml 750 ml BalanceBalance -900 ml -500 ml Results Result Diagram: 01/19/19 0554 01/19/19 0554 Results 24hrs Laboratory Tests Test 01/18/19 17:37 01/18/19 20:14 01/19/19 02:09 01/19/19 05:54 Bedside Glucose 121 183 147 White Blood Count 8.0 Red Blood Count 2.68 L Hemoglobin 8.1 L Hematocrit 24.7 L Mean Corpuscular 92.2 Volume Mean Corpuscular 30.2 Hemoglobin Mean Corpuscular 32.8 Hemoglobin Concent Red Cell 15.4 H Distribution Width Platelet Count 242 Mean Platelet Volume 11.3 H Immature 0.900 H Granulocytes % Neutrophils % 64.3 Lymphocytes % 23.1 Monocytes % 8.4 Eosinophils % 3.0 Basophils % 0.3 Nucleated Red Blood 0.0 Cells % Immature 0.070 H Granulocytes # Neutrophils # 5.1 Lymphocytes # 1.8 Monocytes # 0.7 Eosinophils # 0.2 Basophils # 0.0 Nucleated Red Blood 0.0 Cells # Sodium Level 138 Potassium Level 4.2 Chloride Level 104 Carbon Dioxide Level 26 Anion Gap 8 Blood Urea Nitrogen 13 Creatinine 0.50 L Est Glomerular > 60 Filtrat Rate mL/min Glucose Level 119 Calcium Level 8.8 Test 01/19/19 08:03 01/19/19 11:49 Bedside Glucose 132 134 Medications Medication Current Medications Amiodarone HCl (Cordarone) 200 mg DAILY PO Last administered on 01/19/19 09:20; Admin Dose 200 MG; Start 01/10/19 at 09:00 Clopidogrel Bisulfate (plaVIX) 75 mg DAILY PO Last administered on 01/18/19 08:22; Admin Dose 75 MG; Start 01/10/19 at 09:00 Digoxin (Digoxin) 0.125 mg DAILY@1300 PO Last administered on 01/19/19 13:18; Admin Dose 0.125 MG; Start 01/10/19 at 13:00 Gabapentin (Neurontin) 600 mg DAILY PO Last administered on 01/19/19 09:19; Admin Dose 600 MG; Start 01/10/19 at 09:00 Empaglifozin (Jardiance) 25 mg DAILY PO Last administered on 01/19/19 09:21; Admin Dose 25 MG; Start 01/10/19 at 09:00 Linagliptin (Tradjenta) 5 mg DAILY PO Last administered on 01/19/19 09:19; Admin Dose 5 MG; Start 01/10/19 at 09:00 Diagnostic Test (Pha) (Accu-Chek) 1 ea AC MEALS AND BEDTIME XX Last a dministered on 01/19/19 08:05; Admin Dose 1 EA; Start 01/09/19 at 21:00 Acetaminophen (Tylenol Tab) 650 mg Q4H PRN PO MILD PAIN(1-3)OR ELEVATED TEMP; Start 01/09/19 at 20:30 Acetaminophen/ Hydrocodone Bitart ([place] (5/325)) 1 tab Q4H PRN PO MODERATE PAIN LEVEL 4-6 Last administered on 01/18/19 00:56; Admin Dose 1 TAB; Start 01/09/19 at 20:30 Ondansetron HCl (Zofran Inj) 4 mg Q6H PRN IV NAUSEA AND/OR VOMITING Last administered on 01/14/19 19:59; Admin Dose 4 MG; Start 01/09/19 at 20:30 Diagnostic Test (Pha) (Accu-Chek) 1 ea 02 XX Last administered on 01/19/19 02:19; Admin Dose 1 EA; Start 01/10/19 at 02:00 Insulin Aspart (Novolog Insulin Pen) NOVOLOG *MILD* ALGORITHM WITH MEALS BEDTIME SC Last administered on 01/18/19 20:30; Admin Dose 1 UNIT; Start 01/09/19 at 22:30 Miscellaneous Information 1 ea NOTE XX ; Start 01/09/19 at 21:30 Glucose (Glutose) 15 gm Q15M PRN PO DECREASED GLUCOSE; Start 01/09/19 at 21:30 Glucose (Glutose) 22.5 gm Q15M PRN PO DECREASED GLUCOSE; Start 01/09/19 at 21:30 Dextrose (D50w Syringe) 25 ml Q15M PRN IV DECREASED GLUCOSE; Start 01/09/19 at 21:30 Dextrose (D50w Syringe) 50 ml Q15M PRN IV DECREASED GLUCOSE; Start 01/09/19 at 21:30 Glucagon (Glucagen) 1 mg Q15M PRN IM DECREASED GLUCOSE; Start 01/09/19 at 21:30 Glucose (Glutose) 15 gm Q15M PRN BUCCAL DECREASED GLUCOSE; Start 01/09/19 at 21:30 Insulin Glargine (Lantus) 18 units QHS SC Last administered on 01/18/19 20:30; Admin Dose 18 UNITS; Start 01/09/19 at 22:30 Carvedilol (Coreg) 3.125 mg BID PO Last administered on 01/18/19 08:21; Admin Dose 3.125 MG; Start 01/10/19 at 21:00 Vancomycin HCl (Vanco Iv Per Pharmacy) VANCOMYCIN PER PHARMACY PER PROTOCOL XX ; Start 01/11/19 at 02:30 Lisinopril (Zestril) 2.5 mg DAILY PO Last administered on 01/18/19 08:22; Admin Dose 2.5 MG; Start 01/13/19 at 09:00 Senna (Senokot) 1 tab DAILY PRN PO CONSTIPATION Last administered on 01/14/19 16:52; Admin Dose 1 TAB; Start 01/12/19 at 18:30 Docusate Sodium (Colace) 100 mg BID PRN PO CONSTIPATION Last administered on 01/14/19 16:52; Admin Dose 100 MG; Start 01/12/19 at 18:30 Neomycin/ Polymyxin/ Bacitracin (Neosporin Topical Oint) 1 applic DAILY TOP Last administered on 01/19/19 09:18; Admin Dose 1 APPLIC; Start 01/12/19 at 18:30 Furosemide (Lasix) 20 mg DAILY PO Last administered on 01/19/19 09:22; Admin Dose 20 MG; Start 01/15/19 at 09:00 Cyanocobalamin (Vitamin B12 Inj) 1,000 mcg DAILY IM Last administered on 01/19/19 09:21; Admin Dose 1,000 MCG; Start 01/16/19 at 09:00 Vancomycin HCl 1.25 gm/Sodium Chloride 250 ml @ 83.333 mls/ hr Q12H IVPB Last administered on 01/19/19 04:12; Admin Dose 83.333 MLS/HR; Start 01/16/19 at 16:00 Pantoprazole (Protonix Tab) 40 mg DAILY@06 PO Last administered on 01/19/19 05:36; Admin Dose 40 MG; Start 01/17/19 at 06:00 Metronidazole 100 ml @ 100 mls/hr Q8 IVPB Last administered on 01/19/19 13:18; Admin Dose 100 MLS/HR; Start 01/16/19 at 22:00 Cefepime HCl 50 ml @ 100 mls/hr Q12 IVPB Last administered on 01/19/19 09:30; Admin Dose 100 MLS/HR; Start 01/17/19 at 21:00 Oxycodone HCl (Oxycontin) 10 mg BID PO Last administered on 01/19/19 09:19; Admin Dose 10 MG; Start 01/18/19 at 15:00 Hydromorphone HCl (Dilaudid) 1 mg Q4H PRN IV SEVERE PAIN LEVEL 7-10 Last administered on 01/19/19at 10:46; Admin Dose 1 MG; Start 01/18/19 at 15:00 Miscellaneous Information (*Rx Drug Level Order Reminder*) VANCO TROUGH ON 01/07... 1500 ONCE XX ; Start 01/20/19 at 15:00; Stop 01/20/19 at 15:01 KIM ODELL DPM January 19, 2019 16:14
[2019-01-19] MEDS: DOCUSATE SODIUM 100 MG CAP PO PRN (21:26)
[2019-01-19] MEDS: INSULIN GLARGINE [LANTus] (100 UNITS/ML) SYG SC SCH (21:47)
[2019-01-20] VITALS (13 sets, daily range): BP systolic 87–121; BP diastolic 50–64; PULSE 63–93; RESP 17–20
[2019-01-20] MEDS: HYDROmorphONE 1 MG/ML SYG IV PRN ×5 (00:08→23:33)
[2019-01-20] MEDS: ACCU-CHEK XX SCH ×5 (02:53→21:00)
[2019-01-20] MEDS: VANCOMYCIN HCL 1.25 GM in SOD CHLORIDE 0.9% 250 ML IVPB SCH ×2 (04:11→17:38)
[2019-01-20] MEDS: metroNIDAZOLE 500 MG/NS (PMX) 100 ML IVPB SCH ×3 (05:45→22:32)
[2019-01-20] MEDS: PANTOPRAZOLE (EC) 40 MG TAB PO SCH (05:45)
--- NOTE | 2019-01-20 07:35 | CONS ---
Assessment/Plan Assessment/Plan Hospital Course (Demo Recall) 63 yo male with anemia 1. Right heel necrotic wound. 2. Cardiomyopathy with ejection fraction of 20% to 30%. 3. Peripheral vascular disease status post PCI, right lower extremity. 4. Coronary artery disease status post coronary artery bypass graft. 5. Status post automatic implantable cardioverter-defibrillator. 6. Hypertension. 7. Diabetes mellitus. 8. Anemia. Patient has a significant drop in hematocrit. So far, clinically, there is no evidence of obvious GI bleeding. 9. Ovoid mass or filling defect arising from lesser curvature of stomach. 10. Pt is pre op for peripheral artery bypass surgery which is on hold for now. CT of abd pelvis:IMPRESSION: 1. No acute intra-abdominal or pelvic abnormality including no evidence of intraperitoneal or retroperitoneal free fluid or hemorrhage seen. 2. There is an ovoid 3.5 cm mass/filling defect arising along the lesser curvatu re of the stomach, for which endoscopic evaluation is recommended. 3. No evidence of intestinal obstruction. Colonic diverticulosis without diverticulitis. Moderate colonic stool burden. 4. Advanced degenerative changes with chronic bilateral L5 pars defects, grade 2 anterolisthesis, along with associated central canal and foraminal stenosis at L5-S1. Plan EGD cancelled yesterday. Pt has been on plavix and biopsy of mass is needed. We will wait 5 days with patient off of Plavix. If no surgeries are scheduled for Saturday, which per pt and RN there is not, we will plan for EGD on Saturday to evaluate stomach mass seen on CT scan Continue PPI Continue diet as tolerated. PSA Pt examined and plan of care discussed with Dr Roberts Consultation Date/Type/Reason Admit Date/Time January 09, 2019 at 18:17 Initial Consult Date 01/16/19 Requesting Provider: KRISTIN PRYOR MD Date/Time of Note DATE: 01/20/19 TIME: 07:33 Exam/Review of Systems Exam Vitals Vital Signs Date Temp Pulse Resp B/P (MAP) Pulse Ox O2 O2 Flow FiO2 Time Delivery Rate 01/20/19 68 19 111/64 05:44 (80) 01/20/19 98.1 100 03:37 01/17/19 Room Air 14:00 Intake and Output 01/19/19 01/19/19 01/20/19 1515:00 23:00 07:00 IntakeIntake Total 1100 ml 600 ml OutputOutput Total 1200 ml 850 ml BalanceBalance -100 ml -250 ml Constitutional: alert, oriented, well developed Psych: no complaints Head: normocephalic Eyes: nl sclera, PERRL ENMT: mucosa pink and moist Respiratory: normal air movement Cardiovascular: regular rate and rhythm Gastrointestinal: soft, non-tender Musculoskeletal: other (rt foot wrapped in rosalba bandage) 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: nl mental status Results Result Diagram: 01/19/19 0554 01/19/19 0554 Results 24hrs Laboratory Tests Test 01/19/19 08:03 01/19/19 11:49 01/19/19 17:36 01/19/19 21:20 Bedside Glucose 132 134 213 189 Test 01/20/19 02:18 Bedside Glucose 159 Medications Medication Current Medications Amiodarone HCl (Cordarone) 200 mg DAILY PO Last administered on 01/19/19 09:20; Admin Dose 200 MG; Start 01/10/19 at 09:00 Digoxin (Digoxin) 0.125 mg DAILY@1300 PO Last administered on 01/19/19 13:18; Admin Dose 0.125 MG; Start 01/10/19 at 13:00 Gabapentin (Neurontin) 600 mg DAILY PO Last administered on 01/19/19 09:19; Admin Dose 600 MG; Start 01/10/19 at 09:00 Empaglifozin (Jardiance) 25 mg DAILY PO Last administered on 01/19/19 09:21; Admin Dose 25 MG; Start 01/10/19 at 09:00 Linagliptin (Tradjenta) 5 mg DAILY PO Last administered on 01/19/19 09:19; Admin Dose 5 MG; Start 01/10/19 at 09:00 Diagnostic Test (Pha) (Accu-Chek) 1 ea AC MEALS AND BEDTIME XX Last administered on 01/19/19 21:49; Admin Dose 1 EA; Start 01/09/19 at 21:00 Acetaminophen (Tylenol Tab) 650 mg Q4H PRN PO MILD PAIN(1-3)OR ELEVATED TEMP; Start 01/09/19 at 20:30 Acetaminophen/ Hydrocodone Bitart ([place] (5/325)) 1 tab Q4H PRN PO MODERATE PAIN LEVEL 4-6 Last administered on 01/18/19at 00:56; Admin Dose 1 TAB; Start 01/09/19 at 20:30 Ondansetron HCl (Zofran Inj) 4 mg Q6H PRN IV NAUSEA AND/OR VOMITING Last administered on 01/14/19 19:59; Admin Dose 4 MG; Start 01/09/19 at 20:30 Diagnostic Test (Pha) (Accu-Chek) 1 ea 02 XX Last administered on 01/20/19 02:53; Admin Dose 1 EA; Start 01/10/19 at 02:00 Insulin Aspart (Novolog Insulin Pen) NOVOLOG *MILD* ALGORITHM WITH MEALS BEDTIME SC Last administered on 01/19/19 21:47; Admin Dose 1 UNIT; Start 01/09/19 at 22:30 Miscellaneous Information 1 ea NOTE XX ; Start 01/09/19 at 21:30 Glucose (Glutose) 15 gm Q15M PRN PO DECREASED GLUCOSE; Start 01/09/19 at 21:30 Glucose (Glutose) 22.5 gm Q15M PRN PO DECREASED GLUCOSE; Start 01/09/19 at 21:30 Dextrose (D50w Syringe) 25 ml Q15M PRN IV DECREASED GLUCOSE; Start 01/09/19 at 21:30 Dextrose (D50w Syringe) 50 ml Q15M PRN IV DECREASED GLUCOSE; Start 01/09/19 at 21:30 Glucagon (Glucagen) 1 mg Q15M PRN IM DECREASED GLUCOSE; Start 01/09/19 at 21:30 Glucose (Glutose) 15 gm Q15M PRN BUCCAL DECREASED GLUCOSE; Start 01/09/19 at 21:30 Insulin Glargine (Lantus) 18 units QHS SC Last administered on 01/19/19at 21:47; Admin Dose 18 UNITS; Start 01/09/19 at 22:30 Carvedilol (Coreg) 3.125 mg BID PO Last administered on 01/19/19 21:27; Admin Dose 3.125 MG; Start 01/10/19 at 21:00 Vancomycin HCl (Vanco Iv Per Pharmacy) VANCOMYCIN PER PHARMACY PER PROTOCOL XX ; Start 01/11/19 at 02:30 Lisinopril (Zestril) 2.5 mg DAILY PO Last administered on 01/18/19at 08:22; Admin Dose 2.5 MG; Start 01/13/19 at 09:00 Senna (Senokot) 1 tab DAILY PRN PO CONSTIPATION Last administered on 01/14/19 16:52; Admin Dose 1 TAB; Start 01/12/19 at 18:30 Docusate Sodium (Colace) 100 mg BID PRN PO CONSTIPATION Last administered on 01/19/19 21:26; Admin Dose 100 MG; Start 01/12/19 at 18:30 Neomycin/ Polymyxin/ Bacitracin (Neosporin Topical Oint) 1 applic DAILY TOP Last administered on 01/19/19 09:18; Admin Dose 1 APPLIC; Start 01/12/19 at 18:30 Furosemide (Lasix) 20 mg DAILY PO Last administered on 01/19/19 09:22; Admin Dose 20 MG; Start 01/15/19 at 09:00 Cyanocobalamin (Vitamin B12 Inj) 1,000 mcg DAILY IM Last administered on 01/19/19 09:21; Admin Dose 1,000 MCG; Start 01/16/19 at 09:00 Vancomycin HCl 1.25 gm/Sodium Chloride 250 ml @ 83.333 mls/ hr Q12H IVPB Last administered on 01/20/19 04:11; Admin Dose 83.333 MLS/HR; Start 01/16/19 at 16:00 Pantoprazole (Protonix Tab) 40 mg DAILY@06 PO Last administered on 01/20/19 05:45; Admin Dose 40 MG; Start 01/17/19 at 06:00 Metronidazole 100 ml @ 100 mls/hr Q8 IVPB Last administered on 01/20/19 05:45; Admin Dose 100 MLS/HR; Start 01/16/19 at 22:00 Cefepime HCl 50 ml @ 100 mls/hr Q12 IVPB Last administered on 01/19/19 21:26; Admin Dose 100 MLS/HR; Start 01/17/19 at 21:00 Oxycodone HCl (Oxycontin) 10 mg BID PO Last administered on 01/19/19 22:41; Admin Dose 10 MG; Start 01/18/19 at 15:00 Hydromorphone HCl (Dilaudid) 1 mg Q4H PRN IV SEVERE PAIN LEVEL 7-10 Last administered on 01/20/19 00:08; Admin Dose 1 MG; Start 01/18/19 at 15:00 Miscellaneous Information (*Rx Drug Level Order Reminder*) VANCO TROUGH ON 01/07... 1500 ONCE XX ; Start 01/20/19 at 15:00; Stop 01/20/19 at 15:01 TAMELA BOWMAN January 20, 2019 07:35
[2019-01-20] MEDS: INSULIN ASPART [NOVOLOG] 3 ML PEN SC SCH ×4 (08:31→20:47)
[2019-01-20] MEDS: oxyCODONE (CR) 10 MG TAB [oxyCONTIN] PO SCH ×2 (08:38→21:56)
[2019-01-20] MEDS: AMIODARONE 200 MG TAB PO SCH (08:38)
[2019-01-20] MEDS: CYANOCOBALAMIN 1000 MCG INJ IM SCH (08:38)
[2019-01-20] MEDS: LINAGLIPTIN 5 MG TABLET PO SCH (08:38)
[2019-01-20] MEDS: LISINOPRIL 5 MG TAB PO SCH (08:39)
[2019-01-20] MEDS: NEOMYC/POLYMYX/BACIT 30 GM OINT TOP SCH (08:40)
[2019-01-20] MEDS: GABAPENTIN 300 MG CAP PO SCH (08:40)
[2019-01-20] MEDS: EMPAGLIFLOZIN 10 MG TABLET PO SCH (08:40)
[2019-01-20] MEDS: FUROSEMIDE 20 MG TAB PO SCH (08:40)
[2019-01-20] MEDS: CEFEPIME 2GM/50 ML (PMX) 50 ML IVPB SCH ×2 (08:43→20:46)
--- NOTE | 2019-01-20 10:51 | CONS ---
Consult Date/Type/Reason Admit Date/Time January 09, 2019 at 18:17 Initial Consult Date 01/10/19 Requesting Provider: KRISTIN PRYOR MD Date/Time of Note DATE: 01/20/19 TIME: 10:49 Subjective NO acute events - pt comfortable - EGD planned for Saturday - discussed with GI team - hold plavix now. ROS: No fever, no chills, no nausea, no vomiting, no diarrhea/constipation No recent weight changes No chest pain, no PND, no orthopnea - improved SOB No dizziness, blurred vision No thirst, no heat or cold intolerance Objective Vitals Vital Signs Date Temp Pulse Resp B/P (MAP) Pulse Ox O2 O2 Flow FiO2 Time Delivery Rate 01/20/19 69 08:01 01/20/19 98.0 18 92/57 (69) 98 07:38 01/17/19 Room Air 14:00 Intake and Output 01/19/19 01/19/19 01/20/19 1515:00 23:00 07:00 IntakeIntake Total 1100 ml 600 ml OutputOutput Total 1200 ml 850 ml BalanceBalance -100 ml -250 ml Exam General: WN/WD/NAD, AOx 3 HEENT: Unicetric/atraumatic/EOMI (follow commands) NECK: JVD elevated, no thyromegaly Lymph: no lymphadenopathy HEART: regular with no S3, II/ systolic murmur at apex, PMI L LUNGS: Coarse sounds ABD: soft, NT, ND, +BS : Intact Neuro: non focal SKIN: chronic changes EXT: 1-2 + edema, bandages - stable Results/Medications Result Diagram: 01/19/19 0554 01/19/19 0554 Results 24 hrs Laboratory Tests Test 01/19/19 11:49 01/19/19 17:36 01/19/19 21:20 01/20/19 02:18 Bedside Glucose 134 213 189 159 Test 01/20/19 08:12 01/20/19 08:45 Bedside Glucose 147 Prostate Specific 0.4 Antigen Home Meds Reported Medications Amiodarone Hcl* (Amiodarone Hcl*) 200 Mg Tablet, 200 MG PO DAILY, #30 TAB 01/09/19 Digoxin* (Digitek*) 125 Mcg Tablet, 0.125 MG PO DAILY, TAB 01/09/19 Rivaroxaban* (Xarelto*) 20 Mg Tablet, 20 MG PO WITH DINNER, TAB 01/09/19 Clopidogrel Bisulfate* (Clopidogrel Bisulfate*) 75 Mg Tablet, 75 MG PO DAILY, #30 TAB 01/09/19 Empagliflozin (Jardiance) 25 Mg Tablet, 25 MG PO DAILY, TAB 01/09/19 Insulin Glargine,Hum.rec.anlog (Basaglar Kwikpen U-100) 100 Unit/1 Ml Insuln.pen, 18 UNIT SC QHS, EA 01/09/19 Sulfamethoxazole/Trimethoprim* (Bactrim Ds* Tablet) 1 Each Tablet, 1 TAB PO BID, TAB FOR 10 DAYS,START TAKING 01/06/19 01/09/19 Tapentadol Hcl (Nucynta) 100 Mg Tablet, 100 MG PO BID, TAB 01/09/19 Gabapentin* (Gabapentin*) 600 Mg Tablet, 600 MG PO DAILY, #60 TAB 01/09/19 Metformin Hcl* (Metformin Hcl*) 1,000 Mg Tablet, 1000 MG PO WITH BREAKFAST DINNE, #60 TAB 01/09/19 Medications Current Medications Amiodarone HCl (Cordarone) 200 mg DAILY PO Last administered on 01/20/19 08:38; Admin Dose 200 MG; Start 01/10/19 at 09:00 Digoxin (Digoxin) 0.125 mg DAILY@1300 PO Last administered on 01/19/19at 13:18; Admin Dose 0.125 MG; Start 01/10/19 at 13:00 Gabapentin (Neurontin) 600 mg DAILY PO Last administered on 01/20/19at 08:40; Admin Dose 600 MG; Start 01/10/19 at 09:00 Empaglifozin (Jardiance) 25 mg DAILY PO Last administered on 01/20/19at 08:40; Admin Dose 25 MG; Start 01/10/19 at 09:00 Linagliptin (Tradjenta) 5 mg DAILY PO Last administered on 01/20/19 08:38; Admin Dose 5 MG; Start 01/10/19 at 09:00 Diagnostic Test (Pha) (Accu-Chek) 1 ea AC MEALS AND BEDTIME XX Last administe red on 01/20/19at 08:14; Admin Dose 1 EA; Start 01/09/19 at 21:00 Acetaminophen (Tylenol Tab) 650 mg Q4H PRN PO MILD PAIN(1-3)OR ELEVATED TEMP; Start 01/09/19 at 20:30 Acetaminophen/ Hydrocodone Bitart ([place] (5/325)) 1 tab Q4H PRN PO MODERATE PAIN LEVEL 4-6 Last administered on 01/18/19 00:56; Admin Dose 1 TAB; Start 01/09/19 at 20:30 Ondansetron HCl (Zofran Inj) 4 mg Q6H PRN IV NAUSEA AND/OR VOMITING Last administered on 01/14/19 19:59; Admin Dose 4 MG; Start 01/09/19 at 20:30 Diagnostic Test (Pha) (Accu-Chek) 1 ea 02 XX Last administered on 01/20/19 02:53; Admin Dose 1 EA; Start 01/10/19 at 02:00 Insulin Aspart (Novolog Insulin Pen) NOVOLOG *MILD* ALGORITHM WITH MEALS BEDTIME SC Last administered on 01/20/19 08:31; Admin Dose 1 UNIT; Start 01/09/19 at 22:30 Miscellaneous Information 1 ea NOTE XX ; Start 01/09/19 at 21:30 Glucose (Glutose) 15 gm Q15M PRN PO DECREASED GLUCOSE; Start 01/09/19 at 21:30 Glucose (Glutose) 22.5 gm Q15M PRN PO DECREASED GLUCOSE; Start 01/09/19 at 21:30 Dextrose (D50w Syringe) 25 ml Q15M PRN IV DECREASED GLUCOSE; Start 01/09/19 at 21:30 Dextrose (D50w Syringe) 50 ml Q15M PRN IV DECREASED GLUCOSE; Start 01/09/19 at 21:30 Glucagon (Glucagen) 1 mg Q15M PRN IM DECREASED GLUCOSE; Start 01/09/19 at 21:30 Glucose (Glutose) 15 gm Q15M PRN BUCCAL DECREASED GLUCOSE; Start 01/09/19 at 21:30 Insulin Glargine (Lantus) 18 units QHS SC Last administered on 01/19/19 21:47; Admin Dose 18 UNITS; Start 01/09/19 at 22:30 Carvedilol (Coreg) 3.125 mg BID PO Last administered on 01/19/19 21:27; Admin Dose 3.125 MG; Start 01/10/19 at 21:00 Vancomycin HCl (Vanco Iv Per Pharmacy) VANCOMYCIN PER PHARMACY PER PROTOCOL XX ; Start 01/11/19 at 02:30 Lisinopril (Zestril) 2.5 mg DAILY PO Last administered on 01/18/19 08:22; Admin Dose 2.5 MG; Start 01/13/19 at 09:00 Senna (Senokot) 1 tab DAILY PRN PO CONSTIPATION Last administered on 01/14/19 16:52; Admin Dose 1 TAB; Start 01/12/19 at 18:30 Docusate Sodium (Colace) 100 mg BID PRN PO CONSTIPATION Last administered on 01/19/19 21:26; Admin Dose 100 MG; Start 01/12/19 at 18:30 Neomycin/ Polymyxin/ Bacitracin (Neosporin Topical Oint) 1 applic DAILY TOP Last administered on 01/20/19 08:40; Admin Dose 1 APPLIC; Start 01/12/19 at 18:30 Furosemide (Lasix) 20 mg DAILY PO Last administered on 01/20/19 08:40; Admin Dose 20 MG; Start 01/15/19 at 09:00 Cyanocobalamin (Vitamin B12 Inj) 1,000 mcg DAILY IM Last administered on 01/20/19 08:38; Admin Dose 1,000 MCG; Start 01/16/19 at 09:00 Vancomycin HCl 1.25 gm/Sodium Chloride 250 ml @ 83.333 mls/ hr Q12H IVPB Last administered on 01/20/19 04:11; Admin Dose 83.333 MLS/HR; Start 01/16/19 at 16:00 Pantoprazole (Protonix Tab) 40 mg DAILY@06 PO Last administered on 01/20/19 05:45; Admin Dose 40 MG; Start 01/17/19 at 06:00 Metronidazole 100 ml @ 100 mls/hr Q8 IVPB Last administered on 01/20/19 05:45; Admin Dose 100 MLS/HR; Start 01/16/19 at 22:00 Cefepime HCl 50 ml @ 100 mls/hr Q12 IVPB Last administered on 01/20/19 08:43; Admin Dose 100 MLS/HR; Start 01/17/19 at 21:00 Oxycodone HCl (Oxycontin) 10 mg BID PO Last administered on 01/20/19 08:38; Admin Dose 10 MG; Start 01/18/19 at 15:00 Hydromorphone HCl (Dilaudid) 1 mg Q4H PRN IV SEVERE PAIN LEVEL 7-10 Last administered on 01/20/19at 10:39; Admin Dose 1 MG; Start 01/18/19 at 15:00 Miscellaneous Information (*Rx Drug Level Order Reminder*) VANCO TROUGH ON 01/07... 1500 ONCE XX ; Start 01/20/19 at 15:00; Stop 01/20/19 at 15:01 Assessment/Plan Hospital Course (Demo Recall) 1.Pre-op for peripheral bypass surgery. Lexiscan with no ischemia/+scar EF 28%. Echo EF 25%. OK to proceed to surgery at moderate CV risk - stable now - on hold for now - con't wound care. Treated. Pt planned for EGD - OK to proceed if needed from cardiac standpoint. 2.Cardiomyopathy with low EF-severely depressed by echo this admit - mild CHF, con't gentle diuresis - stable fluid satus. BiV upgrade planned per Dr. Herrera. Jagdish. 3.HTN - well Rx - on therapy now - in good range now. TREATED. 4.HL 5.Non-healing LE ulcer - in bandage, will follow - con't wound care. Pain better Rx. 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 A. Fib - in sinus now, paroxysmal - on amio - off anti-coag with low H/H MIGUEL WADE MD January 20, 2019 10:51
--- NOTE | 2019-01-20 11:09 | CONS ---
Assessment/Plan Assessment/Plan Hospital Course (Demo Recall) - polymicrobial infection of non-healing ulcer of R heel. CT on 01/10/2019 did not show evidence of OM. ESR 26 on 01/09/2019 and 37 on 01/12/2019; superficial wound cx Pseudomonas, E. Coli, Enterococcus (isolated from broth only), scant Proteus, and scant CoNS - s/p Debridement of the right calcaneal ulceration 01/13/2019; intraop cx grew E. Coli, Proteus, and Enterococcus - chronic wound of R heel, in the past the wound culture grew E. coli - h/o OM of R foot, h/o 6 weeks of IV vancomycin and ceftriaxone in 2018. Pt remembers it was a "Staph infection." - trauma to R knee - anemia requiring PRBC - PAF - CAD s/p CABG - HTN - CM with EF 25% - h/o AICD placement - PVD - h/o aortogram, RLE runoff and percutaneous angioplasty of the posterior tibial artery and the anterior tibial artery in 10/2018 - DM - Hgb A1c 7.6% - HLD associated with DM Recommendations: - Continue Cefepime (restart 01/17/2019-) for Pseudomonas, E. Coli and Proteus. TRIPE SCRAPER Garo spoke with [facility] who confirmed sensis of Cefepime to E. Coli and Proteus. E.coli is resistant to Amp-sulbactam - Continue IV vancomycin (01/11/2019-) - Continue Flagyl IV (01/16/19 -) - Consider PICC line - Will likely require 4-6 weeks abx Management was d/w patient, patient's RN at bedside, and with Dr. Urbano via [employer]. Thank you Total time spent was 45 min including therapeutic time. Consultation Date/Type/Reason Admit Date/Time January 09, 2019 at 18:17 Initial Consult Date 01/10/19 Type of Consult ID Requesting Provider: KRISTIN PRYOR MD Date/Time of Note DATE: 01/20/19 TIME: 11:07 24 HR Interval Summary Free Text/Dictation Patient reports that "I am feeling much better now." He states that his EGD was postponed to Saturday d/t plavix. Reports he has been having R foot pain. States that if he is still here on saturday then he might get another debridement done. He reports he had a lack of appetite after transfer from ICU but that now his appetite has been improving. Denies feeling of fevers, chills, night sweats, sob, cp, cough, n/v/d, dysuria, pruritis, or rash. Had many questions regarding that he applied for disability a few month ago. RN arrived to bedside and she will call drug abuse social worker to discuss these concerns with the patient. Patient also had questions about if he is discharged and the antibiotics how he will receive them. I answered his questions, therapeutic time was provided. Exam/Review of Systems Exam Vitals Vital Signs Date Temp Pulse Resp B/P (MAP) Pulse Ox O2 O2 Flow FiO2 Time Delivery Rate 01/20/19 69 08:01 01/20/19 98.0 18 92/57 (69) 98 07:38 01/17/19 Room Air 14:00 Intake and Output 01/19/19 01/19/19 01/20/19 1515:00 23:00 07:00 IntakeIntake Total 1100 ml 600 ml OutputOutput Total 1200 ml 850 ml BalanceBalance -100 ml -250 ml Allergies Coded Allergies No Known Allergy (Unverified01/09/19) . Exam Constitutional: alert, oriented, well developed, other (sitting in a chair at the bedside) Psych: no complaints, nl mood/affect (smiling) Head: normocephalic, atraumatic Eyes: nl conjunctiva, nl lids, nl sclera ENMT: nl external ears & nose, nl nasal mucosa & septum, mucosa pink and moist (no thrush) Neck: supple, non-tender Respiratory: clear to auscultation, normal air movement; No labored breathing, No wheezing Cardiovascular: regular rate and rhythm, nl pulses, edema (right foot swelling) Gastrointestinal: soft, non-tender, bowel sounds (normoactive); No distended, No firm, No tender Genitourinary - Male: other (urinal at bedside) Extremities: normal pulses, other (right foot wrapped with a c/d/i dressing) 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: DATA MIGRATION CONSULTANT II-XII intact, nl mental status, nl speech, nl strength Skin: nl turgor; No rash or lesions Results Result Diagram: 01/19/19 0554 01/19/19 0554 Results 24hrs Laboratory Tests Test 01/19/19 11:49 01/19/19 17:36 01/19/19 21:20 01/20/19 02:18 Bedside Glucose 134 213 189 159 Test 01/20/19 08:12 01/20/19 08:45 Bedside Glucose 147 Prostate Specific 0.4 Antigen Medications Medication Current Medications Amiodarone HCl (Cordarone) 200 mg DAILY PO Last administered on 01/20/19 08:38; Admin Dose 200 MG; Start 01/10/19 at 09:00 Digoxin (Digoxin) 0.125 mg DAILY@1300 PO Last administered on 01/19/19 13:18; Admin Dose 0.125 MG; Start 01/10/19 at 13:00 Gabapentin (Neurontin) 600 mg DAILY PO Last administered on 01/20/19 08:40; Admin Dose 600 MG; Start 01/10/19 at 09:00 Empaglifozin (Jardiance) 25 mg DAILY PO Last administered on 01/20/19 08:40; Admin Dose 25 MG; Start 01/10/19 at 09:00 Linagliptin (Tradjenta) 5 mg DAILY PO Last administered on 01/20/19 08:38; Admin Dose 5 MG; Start 01/10/19 at 09:00 Diagnostic Test (Pha) (Accu-Chek) 1 ea AC MEALS AND BEDTIME XX Last administered on 01/20/19 08:14; Admin Dose 1 EA; Start 01/09/19 at 21:00 Acetaminophen (Tylenol Tab) 650 mg Q4H PRN PO MILD PAIN(1-3)OR ELEVATED TEMP; Start 01/09/19 at 20:30 Acetaminophen/ Hydrocodone Bitart ([place] (5/325)) 1 tab Q4H PRN PO MODERATE PAIN LEVEL 4-6 Last administered on 01/18/19 00:56; Admin Dose 1 TAB; Start 01/09/19 at 20:30 Ondansetron HCl (Zofran Inj) 4 mg Q6H PRN IV NAUSEA AND/OR VOMITING Last administered on 01/14/19 19:59; Admin Dose 4 MG; Start 01/09/19 at 20:30 Diagnostic Test (Pha) (Accu-Chek) 1 ea 02 XX Last administered on 01/20/19 02:53; Admin Dose 1 EA; Start 01/10/19 at 02:00 Insulin Aspart (Novolog Insulin Pen) NOVOLOG *MILD* ALGORITHM WITH MEALS BEDTIME SC Last administered on 01/20/19 08:31; Admin Dose 1 UNIT; Start 01/09/19 at 22:30 Miscellaneous Information 1 ea NOTE XX ; Start 01/09/19 at 21:30 Glucose (Glutose) 15 gm Q15M PRN PO DECREASED GLUCOSE; Start 01/09/19 at 21:30 Glucose (Glutose) 22.5 gm Q15M PRN PO DECREASED GLUCOSE; Start 01/09/19 at 21:30 Dextrose (D50w Syringe) 25 ml Q15M PRN IV DECREASED GLUCOSE; Start 01/09/19 at 21:30 Dextrose (D50w Syringe) 50 ml Q15M PRN IV DECREASED GLUCOSE; Start 01/09/19 at 21:30 Glucagon (Glucagen) 1 mg Q15M PRN IM DECREASED GLUCOSE; Start 01/09/19 at 21:30 Glucose (Glutose) 15 gm Q15M PRN BUCCAL DECREASED GLUCOSE; Start 01/09/19 at 21:30 Insulin Glargine (Lantus) 18 units QHS SC Last administered on 01/19/19 21:47; Admin Dose 18 UNITS; Start 01/09/19 at 22:30 Carvedilol (Coreg) 3.125 mg BID PO Last administered on 01/19/19 21:27; Admin Dose 3.125 MG; Start 01/10/19 at 21:00 Vancomycin HCl (Vanco Iv Per Pharmacy) VANCOMYCIN PER PHARMACY PER PROTOCOL XX ; Start 01/11/19 at 02:30 Lisinopril (Zestril) 2.5 mg DAILY PO Last administered on 01/18/19 08:22; Admin Dose 2.5 MG; Start 01/13/19 at 09:00 Senna (Senokot) 1 tab DAILY PRN PO CONSTIPATION Last administered on 01/14/19 16:52; Admin Dose 1 TAB; Start 01/12/19 at 18:30 Docusate Sodium (Colace) 100 mg BID PRN PO CONSTIPATION Last administered on 01/19/19 21:26; Admin Dose 100 MG; Start 01/12/19 at 18:30 Neomycin/ Polymyxin/ Bacitracin (Neosporin Topical Oint) 1 applic DAILY TOP Last administered on 01/20/19 08:40; Admin Dose 1 APPLIC; Start 01/12/19 at 18:30 Furosemide (Lasix) 20 mg DAILY PO Last administered on 01/20/19 08:40; Admin Dose 20 MG; Start 01/15/19 at 09:00 Cyanocobalamin (Vitamin B12 Inj) 1,000 mcg DAILY IM Last administered on 08:38; Admin Dose 1,000 MCG; Start 01/16/19 at 09:00 Vancomycin HCl 1.25 gm/Sodium Chloride 250 ml @ 83.333 mls/ hr Q12H IVPB Last administered on 01/20/19 04:11; Admin Dose 83.333 MLS/HR; Start 01/16/19 at 16:00 Pantoprazole (Protonix Tab) 40 mg DAILY@06 PO Last administered on 01/20/19 0 5:45; Admin Dose 40 MG; Start 01/17/19 at 06:00 Metronidazole 100 ml @ 100 mls/hr Q8 IVPB Last administered on 01/20/19 05:45; Admin Dose 100 MLS/HR; Start 01/16/19 at 22:00 Cefepime HCl 50 ml @ 100 mls/hr Q12 IVPB Last administered on 01/20/19 08:43; Admin Dose 100 MLS/HR; Start 01/17/19 at 21:00 Oxycodone HCl (Oxycontin) 10 mg BID PO Last administered on 01/20/19 08:38; Admin Dose 10 MG; Start 01/18/19 at 15:00 Hydromorphone HCl (Dilaudid) 1 mg Q4H PRN IV SEVERE PAIN LEVEL 7-10 Last a dministered on 01/20/19 10:39; Admin Dose 1 MG; Start 01/18/19 at 15:00 Miscellaneous Information (*Rx Drug Level Order Reminder*) VANCO TROUGH ON 01/07... 1500 ONCE XX ; Start 01/20/19 at 15:00; Stop 01/20/19 at 15:01 FELICITY SORTO NP January 20, 2019 11:09
--- NOTE | 2019-01-20 13:21 | CONS ---
Assessment/Plan Assessment/Plan Hospital Course (Demo Recall) 63-year-old gentleman with history of coronary artery disease, status post CABG, also status post AICD placement, hypertension, diabetes, peripheral vascular disease, status post aortogram and right lower extremity runoff and percutaneous angioplasty of the posterior tibial artery and anterior tibial artery in 10/2018. Patient has a worsening RLE heel wound and thus admitted for sepsis. Patient with acute 3-4 gram drop in Hgb since admission and thus consulted for anemia. # Anemia-normocytic -With the acute drop, there is concern about either a GI bleed or intrabdominal bleed. -continue to hold all blood thinners -CT A/P does not reveal evidence of bleed -f/u endoscopy. tp was found with a T3.5 cm mass/filling defect arising along the lesser curvature of the stomach, -Transfuse to keep hgb > 7. Patient had a transfusion yesterday but did not respond appropriately. -Iron studies are normal but vitamin b12 is low and thus initiated vitamin b12 1000 mcg weekly, will continue -There is no evidence of hemolysis at this time. -Stool occult blood sent and awaiting results; stool color was black. -I do not think there is a bone marrow disorder or blood disorder causing anemia and think this is highly due to blood loss. d. Consultation Date/Type/Reason Admit Date/Time January 09, 2019 at 18:17 Initial Consult Date 01/16/19 Type of Consult hematology Reason for Consultation anemia Requesting Provider: KRISTIN PRYOR MD Date/Time of Note DATE: 01/20/19 TIME: 13:18 24 HR Interval Summary Free Text/Dictation pt started on vitamin b12 Exam/Review of Systems Exam Vitals Vital Signs Date Temp Pulse Resp B/P (MAP) Pulse Ox O2 O2 Flow FiO2 Time Delivery Rate 01/20/19 77 12:30 01/20/19 98.0 18 99/58 (72) 98 12:22 01/17/19 Room Air 14:00 Intake and Output 01/19/19 01/19/19 01/20/19 1515:00 23:00 07:00 IntakeIntake Total 1100 ml 600 ml OutputOutput Total 1200 ml 850 ml BalanceBalance -100 ml -250 ml Constitutional: alert, oriented Psych: no complaints Head: normocephalic Eyes: nl conjunctiva ENMT: nl external ears & nose Neck: supple Respiratory: clear to auscultation Cardiovascular: regular rate and rhythm Gastrointestinal: soft Musculoskeletal: nl extremities to inspection Extremities: normal pulses Results Result Diagram: 01/19/19 0554 01/19/19 0554 Results 24hrs Laboratory Tests Test 01/19/19 17:36 01/19/19 21:20 01/20/19 02:18 01/20/19 08:12 Bedside Glucose 213 189 159 147 Test 01/20/19 08:45 01/20/19 11:58 Prostate Specific 0.4 Antigen Bedside Glucose 120 Medications Medication Current Medications Amiodarone HCl (Cordarone) 200 mg DAILY PO Last administered on 01/20/19 08:38; Admin Dose 200 MG; Start 01/10/19 at 09:00 Digoxin (Digoxin) 0.125 mg DAILY@1300 PO Last administered on 01/19/19 13:18; Admin Dose 0.125 MG; Start 01/10/19 at 13:00 Gabapentin (Neurontin) 600 mg DAILY PO Last administered on 01/20/19 08:40; Admin Dose 600 MG; Start 01/10/19 at 09:00 Empaglifozin (Jardiance) 25 mg DAILY PO Last administered on 01/20/19 08:40; Admin Dose 25 MG; Start 01/10/19 at 09:00 Linagliptin (Tradjenta) 5 mg DAILY PO Last administered on 01/20/19 08:38; Admin Dose 5 MG; Start 01/10/19 at 09:00 Diagnostic Test (Pha) (Accu-Chek) 1 ea AC MEALS AND BEDTIME XX Last administered on 01/20/19 11:59; Admin Dose 1 EA; Start 01/09/19 at 21:00 Acetaminophen (Tylenol Tab) 650 mg Q4H PRN PO MILD PAIN(1-3)OR ELEVATED TEMP; Start 01/09/19 at 20:30 Acetaminophen/ Hydrocodone Bitart ([place] (5/325)) 1 tab Q4H PRN PO MODERATE PAIN LEVEL 4-6 Last administered on 01/18/19 00:56; Admin Dose 1 TAB; Start 01/09/19 at 20:30 Ondansetron HCl (Zofran Inj) 4 mg Q6H PRN IV NAUSEA AND/OR VOMITING Last administered on 01/14/19 19:59; Admin Dose 4 MG; Start 01/09/19 at 20:30 Diagnostic Test (Pha) (Accu-Chek) 1 ea 02 XX Last administered on 01/20/19 02:53; Admin Dose 1 EA; Start 01/10/19 at 02:00 Insulin Aspart (Novolog Insulin Pen) NOVOLOG *MILD* ALGORITHM WITH MEALS BEDTIME SC Last administered on 01/20/19 08:31; Admin Dose 1 UNIT; Start 01/09/19 at 22:30 Miscellaneous Information 1 ea NOTE XX ; Start 01/09/19 at 21:30 Glucose (Glutose) 15 gm Q15M PRN PO DECREASED GLUCOSE; Start 01/09/19 at 21:30 Glucose (Glutose) 22.5 gm Q15M PRN PO DECREASED GLUCOSE; Start 01/09/19 at 21:30 Dextrose (D50w Syringe) 25 ml Q15M PRN IV DECREASED GLUCOSE; Start 01/09/19 at 21:30 Dextrose (D50w Syringe) 50 ml Q15M PRN IV DECREASED GLUCOSE; Start 01/09/19 at 21:30 Glucagon (Glucagen) 1 mg Q15M PRN IM DECREASED GLUCOSE; Start 01/09/19 at 21:30 Glucose (Glutose) 15 gm Q15M PRN BUCCAL DECREASED GLUCOSE; Start 01/09/19 at 21:30 Insulin Glargine (Lantus) 18 units QHS SC Last administered on 01/19/19 21:47; Admin Dose 18 UNITS; Start 01/09/19 at 22:30 Carvedilol (Coreg) 3.125 mg BID PO Last administered on 01/19/19 21:27; Admin Dose 3.125 MG; Start 01/10/19 at 21:00 Vancomycin HCl (Vanco Iv Per Pharmacy) VANCOMYCIN PER PHARMACY PER PROTOCOL XX ; Start 01/11/19 at 02:30 Lisinopril (Zestril) 2.5 mg DAILY PO Last administered on 01/18/19 08:22; Admin Dose 2.5 MG; Start 01/13/19 at 09:00 Senna (Senokot) 1 tab DAILY PRN PO CONSTIPATION Last administered on 01/14/19 16:52; Admin Dose 1 TAB; Start 01/12/19 at 18:30 Docusate Sodium (Colace) 100 mg BID PRN PO CONSTIPATION Last administered on 01/19/19 21:26; Admin Dose 100 MG; Start 01/12/19 at 18:30 Neomycin/ Polymyxin/ Bacitracin (Neosporin Topical Oint) 1 applic DAILY TOP Last administered on 01/20/19 08:40; Admin Dose 1 APPLIC; Start 01/12/19 at 18:30 Furosemide (Lasix) 20 mg DAILY PO Last administered on 01/20/19 08:40; Admin Dose 20 MG; Start 01/15/19 at 09:00 Cyanocobalamin (Vitamin B12 Inj) 1,000 mcg DAILY IM Last administered on 01/20/19 08:38; Admin Dose 1,000 MCG; Start 01/16/19 at 09:00 Vancomycin HCl 1.25 gm/Sodium Chloride 250 ml @ 83.333 mls/ hr Q12H IVPB Last administered on 01/20/19 04:11; Admin Dose 83.333 MLS/HR; Start 01/16/19 at 16:00 Pantoprazole (Protonix Tab) 40 mg DAILY@06 PO Last administered on 01/20/19 05:45; Admin Dose 40 MG; Start 01/17/19 at 06:00 Metronidazole 100 ml @ 100 mls/hr Q8 IVPB Last administered on 01/20/19 05:45; Admin Dose 100 MLS/HR; Start 01/16/19 at 22:00 Cefepime HCl 50 ml @ 100 mls/hr Q12 IVPB Last administered on 01/20/19 08:43; Admin Dose 100 MLS/HR; Start 01/17/19 at 21:00 Oxycodone HCl (Oxycontin) 10 mg BID PO Last administered on 01/20/19 08:38; Admin Dose 10 MG; Start 01/18/19 at 15:00 Hydromorphone HCl (Dilaudid) 1 mg Q4H PRN IV SEVERE PAIN LEVEL 7-10 Last administered on 01/20/19 10:39; Admin Dose 1 MG; Start 01/18/19 at 15:00 Miscellaneous Information (*Rx Drug Level Order Reminder*) VANCO TROUGH ON 01/07... 1500 ONCE XX ; Start 01/20/19 at 15:00; Stop 01/20/19 at 15:01 JT QUINTERO M.D. January 20, 2019 13:21
[2019-01-20] MEDS: DIGOXIN 0.125 MG TAB PO SCH (13:26)
--- NOTE | 2019-01-20 15:02 | PN ---
Date/Time of Note Date/Time of Note DATE: 01/20/19 TIME: 15:00 Assessment/Plan VTE Prophylaxis Risk score (from Ns)>0 risk: 7 SCD applied (from Ns): Yes Pharmacological prophylaxis: NA/contraindicated Pharm contraindication: bleeding Lines/Catheters IV Catheter Type (from Nrsg): Central Line Central line still needed: Yes Urinary Cath still in place: No Assessment/Plan Hospital Course No acute events overnight, patient remains hemodynamically stable, plan for EGD on Saturday, Plavix is held. Assessment/Plan -Gastric mass, plan for EGD today. Continue PPI. Dr. Han is following in gastroenterology consultation. -New onset of anemia and hypotension requiring blood transfusion on 01/15/2019, stool for OB is negative. -Right heel necrotic wound. Dr. Mata is following in podiatry consultation. Status post debridement. Continue antibiotics per ID. Dr. Landa is following in infection disease consultation. -Chronic peripheral vascular disease, history of angioplasty x2. Dr. Sheppard is following in vascular surgery consultation. Plan for a right pop DP bypass on Saturday. -Coronary artery disease, status post coronary artery bypass graft. Continue Plavix. -Cardiomyopathy with ejection fraction of 25%. Continue Coreg. Dr. Foster is following in cardiology consultation. -Status post AICD. -Hx of Hypertension. -Diabetes hemoglobin A1c 7.6. Continue Lantus and NovoLog. -Right knee contusion and abrasion status post fall. Status post evaluation by Dr. Zelaya and orthopedic surgery. No signs of fracture or dystrophic dislocation. -Chronic low back pain with significant spondylolisthesis grade II at the level of L5 to S1. Further recommendations based on clinical course. Plan of care discussed with Dr. Mann. Result Diagram: 01/19/19 0554 01/19/19 0554 Results 24hrs Laboratory Tests Test 01/19/19 17:36 01/19/19 21:20 01/20/19 02:18 01/20/19 08:12 Bedside Glucose 213 189 159 147 Test 01/20/19 08:45 01/20/19 11:58 Prostate Specific 0.4 Antigen Bedside Glucose 120 Exam/Review of Systems Exam Vitals Vital Signs Date Temp Pulse Resp B/P (MAP) Pulse Ox O2 O2 Flow FiO2 Time Delivery Rate 01/20/19 77 12:30 01/20/19 98.0 18 99/58 (72) 98 12:22 01/17/19 Room Air 14:00 Intake and Output 01/19/19 01/19/19 01/20/19 1414:59 22:59 06:59 IntakeIntake Total 1100 ml 600 ml OutputOutput Total 1200 ml 850 ml BalanceBalance -100 ml -250 ml Exam Constitutional: alert, oriented Respiratory: clear to auscultation Cardiovascular: Regular rhythm and rate, AICD Gastrointestinal: soft, non-tender Extremities: normal pulses, other (Right heel wound) Right chest triple lumen catheter Results Results 24hrs Laboratory Tests Test 01/19/19 17:36 01/19/19 21:20 01/20/19 02:18 01/20/19 08:12 Bedside Glucose 213 189 159 147 Test 01/20/19 08:45 01/20/19 11:58 Prostate Specific 0.4 Antigen Bedside Glucose 120 Medications Medication Current Medications Amiodarone HCl (Cordarone) 200 mg DAILY PO Last administered on 01/20/19 08:38; Admin Dose 200 MG; Start 01/10/19 at 09:00 Digoxin (Digoxin) 0.125 mg DAILY@1300 PO Last administered on 01/20/19 13:26; Admin Dose 0.125 MG; Start 01/10/19 at 13:00 Gabapentin (Neurontin) 600 mg DAILY PO Last administered on 01/20/19 08:40; Admin Dose 600 MG; Start 01/10/19 at 09:00 Empaglifozin (Jardiance) 25 mg DAILY PO Last administered on 01/20/19 08:40; Admin Dose 25 MG; Start 01/10/19 at 09:00 Linagliptin (Tradjenta) 5 mg DAILY PO Last administered on 01/20/19 08:38; Admin Dose 5 MG; Start 01/10/19 at 09:00 Diagnostic Test (Pha) (Accu-Chek) 1 ea AC MEALS AND BEDTIME XX Last administered on 01/20/19at 11:59; Admin Dose 1 EA; Start 01/09/19 at 21:00 Acetaminophen (Tylenol Tab) 650 mg Q4H PRN PO MILD PAIN(1-3)OR ELEVATED TEMP; Start 01/09/19 at 20:30 Acetaminophen/ Hydrocodone Bitart ([place] (5/325)) 1 tab Q4H PRN PO MODERATE PAIN LEVEL 4-6 Last administered on 01/18/19 00:56; Admin Dose 1 TAB; Start 01/09/19 at 20:30 Ondansetron HCl (Zofran Inj) 4 mg Q6H PRN IV NAUSEA AND/OR VOMITING Last administered on 01/14/19 19:59; Admin Dose 4 MG; Start 01/09/19 at 20:30 Diagnostic Test (Pha) (Accu-Chek) 1 ea 02 XX Last administered on 01/20/19 02:53; Admin Dose 1 EA; Start 01/10/19 at 02:00 Insulin Aspart (Novolog Insulin Pen) NOVOLOG *MILD* ALGORITHM WITH MEALS BEDTIME SC Last administered on 01/20/19 08:31; Admin Dose 1 UNIT; Start 01/09/19 at 22:30 Miscellaneous Information 1 ea NOTE XX ; Start 01/09/19 at 21:30 Glucose (Glutose) 15 gm Q15M PRN PO DECREASED GLUCOSE; Start 01/09/19 at 21:30 Glucose (Glutose) 22.5 gm Q15M PRN PO DECREASED GLUCOSE; Start 01/09/19 at 21:30 Dextrose (D50w Syringe) 25 ml Q15M PRN IV DECREASED GLUCOSE; Start 01/09/19 at 21:30 Dextrose (D50w Syringe) 50 ml Q15M PRN IV DECREASED GLUCOSE; Start 01/09/19 at 21:30 Glucagon (Glucagen) 1 mg Q15M PRN IM DECREASED GLUCOSE; Start 01/09/19 at 21:30 Glucose (Glutose) 15 gm Q15M PRN BUCCAL DECREASED GLUCOSE; Start 01/09/19 at 21:30 Insulin Glargine (Lantus) 18 units QHS SC Last administered on 01/19/19 21:47; Admin Dose 18 UNITS; Start 01/09/19 at 22:30 Carvedilol (Coreg) 3.125 mg BID PO Last administered on 01/19/19 21:27; Admin Dose 3.125 MG; Start 01/10/19 at 21:00 Vancomycin HCl (Vanco Iv Per Pharmacy) VANCOMYCIN PER PHARMACY PER PROTOCOL XX ; Start 01/11/19 at 02:30 Lisinopril (Zestril) 2.5 mg DAILY PO Last administered on 01/18/19 08:22; Admin Dose 2.5 MG; Start 01/13/19 at 09:00 Senna (Senokot) 1 tab DAILY PRN PO CONSTIPATION Last administered on 01/14/19 16:52; Admin Dose 1 TAB; Start 01/12/19 at 18:30 Docusate Sodium (Colace) 100 mg BID PRN PO CONSTIPATION Last administered on 01/19/19 21:26; Admin Dose 100 MG; Start 01/12/19 at 18:30 Neomycin/ Polymyxin/ Bacitracin (Neosporin Topical Oint) 1 applic DAILY TOP Last administered on 01/20/19 08:40; Admin Dose 1 APPLIC; Start 01/12/19 at 18:30 Furosemide (Lasix) 20 mg DAILY PO Last administered on 01/20/19 08:40; Admin Dose 20 MG; Start 01/15/19 at 09:00 Cyanocobalamin (Vitamin B12 Inj) 1,000 mcg DAILY IM Last administered on 01/20/19 08:38; Admin Dose 1,000 MCG; Start 01/16/19 at 09:00 Vancomycin HCl 1.25 gm/Sodium Chloride 250 ml @ 83.333 mls/ hr Q12H IVPB Last administered on 01/20/19 04:11; Admin Dose 83.333 MLS/HR; Start 01/16/19 at 16:00 Pantoprazole (Protonix Tab) 40 mg DAILY@06 PO Last administered on 01/20/19 05:45; Admin Dose 40 MG; Start 01/17/19 at 06:00 Metronidazole 100 ml @ 100 mls/hr Q8 IVPB Last administered on 01/20/19 13:26; Admin Dose 100 MLS/HR; Start 01/16/19 at 22:00 Cefepime HCl 50 ml @ 100 mls/hr Q12 IVPB Last administered on 01/20/19 08:43; Admin Dose 100 MLS/HR; Start 01/17/19 at 21:00 Oxycodone HCl (Oxycontin) 10 mg BID PO Last administered on 01/20/19 08:38; Admin Dose 10 MG; Start 01/18/19 at 15:00 Hydromorphone HCl (Dilaudid) 1 mg Q4H PRN IV SEVERE PAIN LEVEL 7-10 Last administered on 5/14/19at 14:47; Admin Dose 1 MG; Start 01/18/19 at 15:00 Miscellaneous Information (*Rx Drug Level Order Reminder*) VANCO TROUGH ON 01/07... 1500 ONCE XX ; Start 01/20/19 at 15:00; Stop 01/20/19 at 15:01 RAMESH SOLORZANO January 20, 2019 15:02
[2019-01-20] MEDS: INSULIN GLARGINE [LANTus] (100 UNITS/ML) SYG SC SCH (20:57)
--- NOTE | 2019-01-20 23:37 | CONS ---
DATE OF ADMISSION: 01/09/2019 DATE OF CONSULTATION: 01/19/2019 HISTORY OF PRESENT ILLNESS: A 63-year-old male who was scheduled for EGD. The procedure was cancele d because patient was given Plavix 36 hours ago. The patient has otherwise no GI symptoms. OBJECTIVE: VITAL SIGNS: Stable. ABDOMEN: Benign. LUNGS: Clear. EXTREMITIES: No edema. CENTRAL NERVOUS SYSTEM: Grossly within normal limits. LABORATORY DATA: Hematocrit is stable. IMPRESSION: 1. Cardiomyopathy with ejection fraction of 30%. 2. Anemia. No obvious gastrointestinal bleeding. 3. Gastric mass as demonstrated on the CAT scan. 4. Peripheral arterial disease. PLAN: At this point, is to stop the Plavix. The patient is also scheduled for bypass surgery for th e lower extremity on Saturday. Plavix needs to be stopped for 5 days before we do EGD with biopsy. I have discussed with the machine operator general. Dictated By: KACI BALBUENA/DEXTER Conf#: [id number] DID#: [id number]
[2019-01-21] VITALS (11 sets, daily range): BP systolic 91–107; BP diastolic 55–71; PULSE 62–75; RESP 16–20
[2019-01-21] MEDS: ACCU-CHEK XX SCH ×5 (02:12→21:00)
[2019-01-21] MEDS: VANCOMYCIN HCL 1.25 GM in SOD CHLORIDE 0.9% 250 ML IVPB SCH ×2 (03:19→15:50)
[2019-01-21] MEDS: metroNIDAZOLE 500 MG/NS (PMX) 100 ML IVPB SCH ×3 (05:47→21:29)
[2019-01-21] MEDS: PANTOPRAZOLE (EC) 40 MG TAB PO SCH (05:47)
[2019-01-21] MEDS: HYDROmorphONE 1 MG/ML SYG IV PRN ×3 (05:47→15:50)
[2019-01-21] MEDS: INSULIN ASPART [NOVOLOG] 3 ML PEN SC SCH ×4 (07:55→20:42)
[2019-01-21] MEDS: CEFEPIME 2GM/50 ML (PMX) 50 ML IVPB SCH ×2 (08:30→20:41)
[2019-01-21] MEDS: GABAPENTIN 300 MG CAP PO SCH (08:33)
[2019-01-21] MEDS: oxyCODONE (CR) 10 MG TAB [oxyCONTIN] PO SCH ×2 (08:33→20:42)
[2019-01-21] MEDS: EMPAGLIFLOZIN 10 MG TABLET PO SCH (08:33)
[2019-01-21] MEDS: FUROSEMIDE 20 MG TAB PO SCH (08:34)
[2019-01-21] MEDS: LISINOPRIL 5 MG TAB PO SCH ×2 (08:34→08:44)
[2019-01-21] MEDS: AMIODARONE 200 MG TAB PO SCH (08:34)
[2019-01-21] MEDS: NEOMYC/POLYMYX/BACIT 30 GM OINT TOP SCH (08:35)
[2019-01-21] MEDS: LINAGLIPTIN 5 MG TABLET PO SCH (08:35)
[2019-01-21] MEDS: CYANOCOBALAMIN 1000 MCG INJ IM SCH (08:35)
[2019-01-21] MEDS: DIGOXIN 0.125 MG TAB PO SCH (12:54)
--- NOTE | 2019-01-21 13:45 | PN ---
Date/Time of Note Date/Time of Note DATE: 01/21/19 TIME: 13:35 Assessment/Plan VTE Prophylaxis Risk score (from Ns)>0 risk: 4 SCD applied (from Ns): Yes Pharmacological prophylaxis: NA/contraindicated Pharm contraindication: surgical contra Lines/Catheters [facility]from [facility]): Central Line Central line still needed: Yes Urinary Cath still in place: No Assessment/Plan Hospital Course Patient remains hemodynamically stable, plan for EGD on Saturday, Plavix is held. Assessment/Plan -Gastric mass, plan for EGD. Continue PPI. Dr. Roberts is following in gastroenterology consultation. -New onset of anemia and hypotension requiring blood transfusion on 01/15/2019, stool for OB is negative. -Right heel necrotic wound. Dr. Mata is following in podiatry consultation. Status post debridement. Continue antibiotics per ID. Dr. Urbano is following in infection disease consultation. -Chronic peripheral vascular disease, history of angioplasty x2. Dr. Sheppard is following in vascular surgery consultation. Plan for a right pop DP bypass on Saturday. -Coronary artery disease, status post coronary artery bypass graft. Continue Plavix. -Cardiomyopathy with ejection fraction of 25%. Continue Coreg. Dr. Foster is following in cardiology consultation. -Status post AICD. -Hx of Hypertension. -Diabetes hemoglobin A1c 7.6. Continue Lantus and NovoLog. -Right knee contusion and abrasion status post fall. Status post evaluation by Dr. Zelaya and orthopedic surgery. No signs of fracture or dystrophic dislocation. -Chronic low back pain with significant spondylolisthesis grade II at the level of L5 to S1. Further recommendations based on clinical course. Plan of care discussed with Dr. Mann. Result Diagram: 01/21/19 0615 01/21/19 0615 Results 24hrs Laboratory Tests Test 01/20/19 15:09 01/20/19 17:39 01/20/19 20:42 01/21/19 01:38 Vancomycin Level 16.5 Trough Bedside Glucose 164 139 155 Test 01/21/19 06:15 01/21/19 07:55 01/21/19 11:52 White Blood Count 8.5 Red Blood Count 2.62 L Hemoglobin 7.9 L Hematocrit 24.7 L Mean Corpuscular 94.3 Volume Mean Corpuscular 30.2 Hemoglobin Mean Corpuscular 32.0 Hemoglobin Concent Red Cell 15.5 H Distribution Width Platelet Count 293 # Mean Platelet Volume 11.0 H Immature 0.900 H Granulocytes % Neutrophils % 57.7 Lymphocytes % 26.1 Monocytes % 11.1 H Eosinophils % 4.0 Basophils % 0.2 Nucleated Red Blood 0.0 Cells % Immature 0.080 H Granulocytes # Neutrophils # 4.9 Lymphocytes # 2.2 Monocytes # 0.9 Eosinophils # 0.3 Basophils # 0.0 Nucleated Red Blood 0.0 Cells # Sodium Level 138 Potassium Level 4.4 Chloride Level 104 Carbon Dioxide Level 29 Anion Gap 5 Blood Urea Nitrogen 17 Creatinine 0.61 Est Glomerular > 60 Filtrat Rate mL/min Glucose Level 109 Calcium Level 9.1 Bedside Glucose 122 145 Exam/Review of Systems Exam Vitals Vital Signs Date Temp Pulse Resp B/P (MAP) Pulse Ox O2 O2 Flow FiO2 Time Delivery Rate 01/21/19 98.7 75 16 91/71 (78) 100 11:28 01/17/19 Room Air 14:00 Intake and Output 01/20/19 01/20/19 01/21/19 1515:00 23:00 07:00 IntakeIntake Total 1400 ml 400 ml OutputOutput Total 1800 ml 3 ml BalanceBalance -400 ml 397 ml Exam Constitutional: alert, oriented Respiratory: clear to auscultation Cardiovascular: regular rhythm and rate, AICD Gastrointestinal: soft, non-tender Extremities: normal pulses, other (Right heel wound) Right chest triple lumen catheter Results Results 24hrs Laboratory Tests Test 01/20/19 15:09 01/20/19 17:39 01/20/19 20:42 01/21/19 01:38 Vancomycin Level 16.5 Trough Bedside Glucose 164 139 155 Test 01/21/19 06:15 01/21/19 07:55 01/21/19 11:52 White Blood Count 8.5 Red Blood Count 2.62 L Hemoglobin 7.9 L Hematocrit 24.7 L Mean Corpuscular 94.3 Volume Mean Corpuscular 30.2 Hemoglobin Mean Corpuscular 32.0 Hemoglobin Concent Red Cell 15.5 H Distribution Width Platelet Count 293 # Mean Platelet Volume 11.0 H Immature 0.900 H Granulocytes % Neutrophils % 57.7 Lymphocytes % 26.1 Monocytes % 11.1 H Eosinophils % 4.0 Basophils % 0.2 Nucleated Red Blood 0.0 Cells % Immature 0.080 H Granulocytes # Neutrophils # 4.9 Lymphocytes # 2.2 Monocytes # 0.9 Eosinophils # 0.3 Basophils # 0.0 Nucleated Red Blood 0.0 Cells # Sodium Level 138 Potassium Level 4.4 Chloride Level 104 Carbon Dioxide Level 29 Anion Gap 5 Blood Urea Nitrogen 17 Creatinine 0.61 Est Glomerular > 60 Filtrat Rate mL/min Glucose Level 109 Calcium Level 9.1 Bedside Glucose 122 145 Medications Medication Current Medications Amiodarone HCl (Cordarone) 200 mg DAILY PO Last administered on 01/21/19 08:34; Admin Dose 200 MG; Start 01/10/19 at 09:00 Digoxin (Digoxin) 0.125 mg DAILY@1300 PO Last administered on 01/21/19 12:54; Admin Dose 0.125 MG; Start 01/10/19 at 13:00 Gabapentin (Neurontin) 600 mg DAILY PO Last administered on 01/21/19 08:33; Admin Dose 600 MG; Start 01/10/19 at 09:00 Empaglifozin (Jardiance) 25 mg DAILY PO Last administered on 01/21/19 08:33; Admin Dose 25 MG; Start 01/10/19 at 09:00 Linagliptin (Tradjenta) 5 mg DAILY PO Last administered on 01/21/19 08:35; Admin Dose 5 MG; Start 01/10/19 at 09:00 Diagnostic Test (Pha) (Accu-Chek) 1 ea AC MEALS AND BEDTIME XX Last administered on 01/20/19 21:00; Admin Dose 1 EA; Start 01/09/19 at 21:00 Acetaminophen (Tylenol Tab) 650 mg Q4H PRN PO MILD PAIN(1-3)OR ELEVATED TEMP; Start 01/09/19 at 20:30 Acetaminophen/ Hydrocodone Bitart ([place] (5/325)) 1 tab Q4H PRN PO MODERATE PAIN LEVEL 4-6 Last administered on 01/18/19 00:56; Admin Dose 1 TAB; Start 01/09/19 at 20:30 Ondansetron HCl (Zofran Inj) 4 mg Q6H PRN IV NAUSEA AND/OR VOMITING Last administered on 01/14/19 19:59; Admin Dose 4 MG; Start 01/09/19 at 20:30 Diagnostic Test (Pha) (Accu-Chek) 1 ea 02 XX Last administered on 01/21/19at 02:12; Admin Dose 1 EA; Start 01/10/19 at 02:00 Insulin Aspart (Novolog Insulin Pen) NOVOLOG *MILD* ALGORITHM WITH MEALS BEDTIME SC Last administered on 01/21/19 12:00; Admin Dose 1 UNIT; Start 01/09/19 at 22:30 Miscellaneous Information 1 ea NOTE XX ; Start 01/09/19 at 21:30 Glucose (Glutose) 15 gm Q15M PRN PO DECREASED GLUCOSE; Start 01/09/19 at 21:30 Glucose (Glutose) 22.5 gm Q15M PRN PO DECREASED GLUCOSE; Start 01/09/19 at 21:30 Dextrose (D50w Syringe) 25 ml Q15M PRN IV DECREASED GLUCOSE; Start 01/09/19 at 21:30 Dextrose (D50w Syringe) 50 ml Q15M PRN IV DECREASED GLUCOSE; Start 01/09/19 at 21:30 Glucagon (Glucagen) 1 mg Q15M PRN IM DECREASED GLUCOSE; Start 01/09/19 at 21:30 Glucose (Glutose) 15 gm Q15M PRN BUCCAL DECREASED GLUCOSE; Start 01/09/19 at 21: 30 Insulin Glargine (Lantus) 18 units QHS SC Last administered on 01/20/19 20:57; Admin Dose 18 UNITS; Start 01/09/19 at 22:30 Carvedilol (Coreg) 3.125 mg BID PO Last administered on 01/20/19 20:46; Admin Dose 3.125 MG; Start 01/10/19 at 21:00 Vancomycin HCl (Vanco Iv Per Pharmacy) VANCOMYCIN PER PHARMACY PER PROTOCOL XX ; Start 01/11/19 at 02:30 Lisinopril (Zestril) 2.5 mg DAILY PO Last administered on 01/18/19 08:22; Admin Dose 2.5 MG; Start 01/13/19 at 09:00 Senna (Senokot) 1 tab DAILY PRN PO CONSTIPATION Last administered on 01/14/19 16:52; Admin Dose 1 TAB; Start 01/12/19 at 18:30 Docusate Sodium (Colace) 100 mg BID PRN PO CONSTIPATION Last administered on 01/19/19 21:26; Admin Dose 100 MG; Start 01/12/19 at 18:30 Neomycin/ Polymyxin/ Bacitracin (Neosporin Topical Oint) 1 applic DAILY TOP Last administered on 01/21/19 08:35; Admin Dose 1 APPLIC; Start 01/12/19 at 18:30 Furosemide (Lasix) 20 mg DAILY PO Last administered on 01/21/19 08:34; Admin Dose 20 MG; Start 01/15/19 at 09:00 Cyanocobalamin (Vitamin B12 Inj) 1,000 mcg DAILY IM Last administered on 01/21/19 08:35; Admin Dose 1,000 MCG; Start 01/16/19 at 09:00 Vancomycin HCl 1.25 gm/Sodium Chloride 250 ml @ 83.333 mls/ hr Q12H IVPB Last administered on 01/21/19 03:19; Admin Dose 83.333 MLS/HR; Start 01/16/19 at 1 6:00 Pantoprazole (Protonix Tab) 40 mg DAILY@06 PO Last administered on 01/21/19 05:47; Admin Dose 40 MG; Start 01/17/19 at 06:00 Metronidazole 100 ml @ 100 mls/hr Q8 IVPB Last administered on 01/21/19 13:01; Admin Dose 100 MLS/HR; Start 01/16/19 at 22:00 Cefepime HCl 50 ml @ 100 mls/hr Q12 IVPB Last administered on 01/21/19 08:30; Admin Dose 100 MLS/HR; Start 01/17/19 at 21:00 Oxycodone HCl (Oxycontin) 10 mg BID PO Last administered on 01/21/19 08:33; Admin Dose 10 MG; Start 01/18/19 at 15:00 Hydromorphone HCl (Dilaudid) 1 mg Q4H PRN IV SEVERE PAIN LEVEL 7-10 Last administered on 01/21/19 11:08; Admin Dose 1 MG; Start 01/18/19 at 15:00 RAMESH SOLORZANO January 21, 2019 13:45
--- NOTE | 2019-01-21 14:33 | CONS ---
Assessment/Plan Assessment/Plan Hospital Course (Demo Recall) 63-year-old gentleman with history of coronary artery disease, status post CABG, also status post AICD placement, hypertension, diabetes, peripheral vascular disease, status post aortogram and right lower extremity runoff and percutaneous angioplasty of the posterior tibial artery and anterior tibial artery in 10/2018. Patient has a worsening RLE heel wound and thus admitted for sepsis. Patient with acute 3-4 gram drop in Hgb since admission and thus consulted for anemia. #Gastric mass -pt have this biopsied this saturday -further recommendations will be based on biopsy report # Anemia-normocytic -With the acute drop, there is concern about either a GI bleed or intraabdominal bleed. -continue to hold all blood thinners -CT A/P does not reveal evidence of bleed -f/u endoscopy. pt was found with a T3.5 cm mass/filling defect arising along the lesser curvature of the stomach, -Transfuse to keep hgb > 7. Patient had a transfusion yesterday but did not respond appropriately. -Iron studies are normal but vitamin b12 is low and thus initiated vitamin b12 1000 mcg weekly, will continue -There is no evidence of hemolysis at this time. -Stool occult blood sent and awaiting results; stool color was black. -I do not think there is a bone marrow disorder or blood disorder causing anemia and think this is highly due to blood loss. d. Consultation Date/Type/Reason Admit Date/Time January 09, 2019 at 18:17 Initial Consult Date 01/16/19 Type of Consult hematology Reason for Consultation anemia Requesting Provider: KRISTIN PRYOR MD Date/Time of Note DATE: 01/21/19 TIME: 14:22 24 HR Interval Summary Free Text/Dictation pt had EGD done and mass was noted. they were unable biopsy the lesion bc patient was on plavix. Exam/Review of Systems Exam Vitals Vital Signs Date Temp Pulse Resp B/P (MAP) Pulse Ox O2 O2 Flow FiO2 Time Delivery Rate 01/21/19 98.7 75 16 91/71 (78) 100 11:28 01/17/19 Room Air 14:00 Intake and Output 01/20/19 01/20/19 01/21/19 1515:00 23:00 07:00 IntakeIntake Total 1400 ml 400 ml OutputOutput Total 1800 ml 3 ml BalanceBalance -400 ml 397 ml Constitutional: alert, oriented Psych: no complaints Head: normocephalic Eyes: nl conjunctiva ENMT: nl external ears & nose Neck: supple Respiratory: clear to auscultation Cardiovascular: regular rate and rhythm Gastrointestinal: soft Musculoskeletal: nl extremities to inspection Results Result Diagram: 01/21/19 0615 01/21/19 0615 Results 24hrs Laboratory Tests Test 01/20/19 15:09 01/20/19 17:39 01/20/19 20:42 01/21/19 01:38 Vancomycin Level 16.5 Trough Bedside Glucose 164 139 155 Test 01/21/19 06:15 01/21/19 07:55 01/21/19 11:52 White Blood Count 8.5 Red Blood Count 2.62 L Hemoglobin 7.9 L Hematocrit 24.7 L Mean Corpuscular 94.3 Volume Mean Corpuscular 30.2 Hemoglobin Mean Corpuscular 32.0 Hemoglobin Concent Red Cell 15.5 H Distribution Width Platelet Count 293 # Mean Platelet Volume 11.0 H Immature 0.900 H Granulocytes % Neutrophils % 57.7 Lymphocytes % 26.1 Monocytes % 11.1 H Eosinophils % 4.0 Basophils % 0.2 Nucleated Red Blood 0.0 Cells % Immature 0.080 H Granulocytes # Neutrophils # 4.9 Lymphocytes # 2.2 Monocytes # 0.9 Eosinophils # 0.3 Basophils # 0.0 Nucleated Red Blood 0.0 Cells # Sodium Level 138 Potassium Level 4.4 Chloride Level 104 Carbon Dioxide Level 29 Anion Gap 5 Blood Urea Nitrogen 17 Creatinine 0.61 Est Glomerular > 60 Filtrat Rate mL/min Glucose Level 109 Calcium Level 9.1 Bedside Glucose 122 145 Medications Medication Current Medications Amiodarone HCl (Cordarone) 200 mg DAILY PO Last administered on 01/21/19 08:34; Admin Dose 200 MG; Start 01/10/19 at 09:00 Digoxin (Digoxin) 0.125 mg DAILY@1300 PO Last administered on 01/21/19 12:54; Admin Dose 0.125 MG; Start 01/10/19 at 13:00 Gabapentin (Neurontin) 600 mg DAILY PO Last administered on 01/21/19 08:33; Admin Dose 600 MG; Start 01/10/19 at 09:00 Empaglifozin (Jardiance) 25 mg DAILY PO Last administered on 01/21/19 08:33; Admin Dose 25 MG; Start 01/10/19 at 09:00 Linagliptin (Tradjenta) 5 mg DAILY PO Last administered on 01/21/19 08:35; Admin Dose 5 MG; Start 01/10/19 at 09:00 Diagnostic Test (Pha) (Accu-Chek) 1 ea AC MEALS AND BEDTIME XX Last administered on 01/20/19 21:00; Admin Dose 1 EA; Start 01/09/19 at 21:00 Acetaminophen (Tylenol Tab) 650 mg Q4H PRN PO MILD PAIN(1-3)OR ELEVATED TEMP; Start 01/09/19 at 20:30 Acetaminophen/ Hydrocodone Bitart ([place] (5/325)) 1 tab Q4H PRN PO MODERATE PAIN LEVEL 4-6 Last administered on 01/18/19 00:56; Admin Dose 1 TAB; Start 01/09/19 at 20:30 Ondansetron HCl (Zofran Inj) 4 mg Q6H PRN IV NAUSEA AND/OR VOMITING Last administered on 01/14/19 19:59; Admin Dose 4 MG; Start 01/09/19 at 20:30 Diagnostic Test (Pha) (Accu-Chek) 1 ea 02 XX Last administered on 01/21/19 02:12; Admin Dose 1 EA; Start 01/10/19 at 02:00 Insulin Aspart (Novolog Insulin Pen) NOVOLOG *MILD* ALGORITHM WITH MEALS BEDTIME SC Last administered on 01/21/19 12:00; Admin Dose 1 UNIT; Start 01/09/19 at 22:30 Miscellaneous Information 1 ea NOTE XX ; Start 01/09/19 at 21:30 Glucose (Glutose) 15 gm Q15M PRN PO DECREASED GLUCOSE; Start 01/09/19 at 21:30 Glucose (Glutose) 22.5 gm Q15M PRN PO DECREASED GLUCOSE; Start 01/09/19 at 21:30 Dextrose (D50w Syringe) 25 ml Q15M PRN IV DECREASED GLUCOSE; Start 01/09/19 at 21:30 Dextrose (D50w Syringe) 50 ml Q15M PRN IV DECREASED GLUCOSE; Start 01/09/19 at 21:30 Glucagon (Glucagen) 1 mg Q15M PRN IM DECREASED GLUCOSE; Start 01/09/19 at 21:30 Glucose (Glutose) 15 gm Q15M PRN BUCCAL DECREASED GLUCOSE; Start 01/09/19 at 21:30 Insulin Glargine (Lantus) 18 units QHS SC Last administered on 01/20/19 20:57; Admin Dose 18 UNITS; Start 01/09/19 at 22:30 Carvedilol (Coreg) 3.125 mg BID PO Last administered on 01/20/19 20:46; Admin Dose 3.125 MG; Start 01/10/19 at 21:00 Vancomycin HCl (Vanco Iv Per Pharmacy) VANCOMYCIN PER PHARMACY PER PROTOCOL XX ; Start 01/11/19 at 02:30 Lisinopril (Zestril) 2.5 mg DAILY PO Last administered on 01/18/19 08:22; Admin Dose 2.5 MG; Start 01/13/19 at 09:00 Senna (Senokot) 1 tab DAILY PRN PO CONSTIPATION Last administered on 01/14/19 16:52; Admin Dose 1 TAB; Start 01/12/19 at 18:30 Docusate Sodium (Colace) 100 mg BID PRN PO CONSTIPATION Last administered on 01/19/19 21:26; Admin Dose 100 MG; Start 01/12/19 at 18:30 Neomycin/ Polymyxin/ Bacitracin (Neosporin Topical Oint) 1 applic DAILY TOP Last administered on 01/21/19 08:35; Admin Dose 1 APPLIC; Start 01/12/19 at 18:30 Furosemide (Lasix) 20 mg DAILY PO Last administered on 01/21/19 08:34; Admin Dose 20 MG; Start 01/15/19 at 09:00 Cyanocobalamin (Vitamin B12 Inj) 1,000 mcg DAILY IM Last administered on 01/21/19 08:35; Admin Dose 1,000 MCG; Start 01/16/19 at 09:00 Vancomycin HCl 1.25 gm/Sodium Chloride 250 ml @ 83.333 mls/ hr Q12H IVPB Last administered on 01/21/19 03:19; Admin Dose 83.333 MLS/HR; Start 01/16/19 at 16:00 Pantoprazole (Protonix Tab) 40 mg DAILY@06 PO Last administered on 01/21/19 05:47; Admin Dose 40 MG; Start 01/17/19 at 06:00 Metronidazole 100 ml @ 100 mls/hr Q8 IVPB Last administered on 01/21/19 13:01; Admin Dose 100 MLS/HR; Start 01/16/19 at 22:00 Cefepime HCl 50 ml @ 100 mls/hr Q12 IVPB Last administered on 01/21/19 08:30; Admin Dose 100 MLS/HR; Start 01/17/19 at 21:00 Oxycodone HCl (Oxycontin) 10 mg BID PO Last administered on 01/21/19 08:33; Admin Dose 10 MG; Start 01/18/19 at 15:00 Hydromorphone HCl (Dilaudid) 1 mg Q4H PRN IV SEVERE PAIN LEVEL 7-10 Last administered on 01/21/19 11:08; Admin Dose 1 MG; Start 01/18/19 at 15:00 TJ QUINTERO M.D. January 21, 2019 14:33
--- NOTE | 2019-01-21 16:39 | CONS ---
Assessment/Plan Assessment/Plan Hospital Course (Demo Recall) - polymicrobial infection of non-healing ulcer of R heel. CT on 01/10/2019 did not show evidence of OM. ESR 26 on 01/09/2019 and 37 on 01/12/2019; superficial wound cx Pseudomonas, E. Coli, Enterococcus (isolated from broth only), scant Proteus, and scant CoNS - s/p Debridement of the right calcaneal ulceration 01/13/2019; intraop cx grew E. Coli, Proteus, and Enterococcus - chronic wound of R heel, in the past the wound culture grew E. coli - h/o OM of R foot, h/o 6 weeks of IV vancomycin and ceftriaxone in 2018. Pt remembers it was a "Staph infection." - trauma to R knee - anemia requiring PRBC - PAF - CAD s/p CABG - HTN - CM with EF 25% - h/o AICD placement - PVD - h/o aortogram, RLE runoff and percutaneous angioplasty of the posterior tibial artery and the anterior tibial artery in 10/2018 - DM - Hgb A1c 7.6% - HLD associated with DM Recommendations: - Continue Cefepime (restart 01/17/2019-) for Pseudomonas, E. Coli and Proteus. PHOEBE Wyman spoke with [facility] who confirmed sensis of Cefepime to E. Coli and Proteus. E.coli is resistant to Amp-sulbactam - Continue IV vancomycin (01/11/2019-) - Continue Flagyl IV (01/16/19 -) - Consider PICC line - Will likely require 4-6 weeks abx Management was d/w patient, patient's RN at bedside, and with PHOEBE Cosme yesterday via [employer] messaging. Please refer to [employer] log. Consultation Date/Type/Reason Admit Date/Time January 09, 2019 at 18:17 Initial Consult Date 01/10/19 Requesting Provider: KRISTIN PRYOR MD Date/Time of Note DATE: 01/21/19 TIME: 16:38 Exam/Review of Systems Exam Vitals Vital Signs Date Temp Pulse Resp B/P (MAP) Pulse Ox O2 O2 Flow FiO2 Time Delivery Rate 01/21/19 73 16:28 01/21/19 98.0 16 107/58 98 15:27 (74) 01/17/19 Room Air 14:00 Intake and Output 01/20/19 01/20/19 01/21/19 1515:00 23:00 07:00 IntakeIntake Total 1400 ml 400 ml OutputOutput Total 1800 ml 3 ml BalanceBalance -400 ml 397 ml Constitutional: alert, oriented, well developed Psych: no complaints, nl mood/affect Eyes: nl conjunctiva, EOMI, nl lids, nl sclera, PERRL Neck: supple, non-tender Respiratory: clear to auscultation, normal air movement Cardiovascular: regular rate and rhythm, nl pulses Results Result Diagram: 01/21/1961401/21/19614 Results 24hrs Laboratory Tests Test 01/20/19 17:39 01/20/19 20:42 01/21/19 01:38 01/21/19 06:15 Bedside Glucose 164 139 155 White Blood Count 8.5 Red Blood Count 2.62 L Hemoglobin 7.9 L Hematocrit 24.7 L Mean Corpuscular 94.3 Volume Mean Corpuscular 30.2 Hemoglobin Mean Corpuscular 32.0 Hemoglobin Concent Red Cell 15.5 H Distribution Width Platelet Count 293 # Mean Platelet Volume 11.0 H Immature 0.900 H Granulocytes % Neutrophils % 57.7 Lymphocytes % 26.1 Monocytes % 11.1 H Eosinophils % 4.0 Basophils % 0.2 Nucleated Red Blood 0.0 Cells % Immature 0.080 H Granulocytes # Neutrophils # 4.9 Lymphocytes # 2.2 Monocytes # 0.9 Eosinophils # 0.3 Basophils # 0.0 Nucleated Red Blood 0.0 Cells # Sodium Level 138 Potassium Level 4.4 Chloride Level 104 Carbon Dioxide Level 29 Anion Gap 5 Blood Urea Nitrogen 17 Creatinine 0.61 Est Glomerular > 60 Filtrat Rate mL/min Glucose Level 109 Calcium Level 9.1 Test 01/21/19 07:55 01/21/19 11:52 Bedside Glucose 122 145 Medications Medication Current Medications Amiodarone HCl (Cordarone) 200 mg DAILY PO Last administered on 01/21/19at 08:34; Admin Dose 200 MG; Start 01/10/19 at 09:00 Digoxin (Digoxin) 0.125 mg DAILY@1300 PO Last administered on 01/21/19at 12:54; Admin Dose 0.125 MG; Start 01/10/19 at 13:00 Gabapentin (Neurontin) 600 mg DAILY PO Last administered on 01/21/19 08:33; Admin Dose 600 MG; Start 01/10/19 at 09:00 Empaglifozin (Jardiance) 25 mg DAILY PO Last administered on 01/21/19 08:33; Admin Dose 25 MG; Start 01/10/19 at 09:00 Linagliptin (Tradjenta) 5 mg DAILY PO Last administered on 01/21/19 08:35; Admin Dose 5 MG; Start 01/10/19 at 09:00 Diagnostic Test (Pha) (Accu-Chek) 1 ea AC MEALS AND BEDTIME XX Last administered on 01/20/19 21:00; Admin Dose 1 EA; Start 01/09/19 at 21:00 Acetaminophen (Tylenol Tab) 650 mg Q4H PRN PO MILD PAIN(1-3)OR ELEVATED TEMP; Start 01/09/19 at 20:30 Acetaminophen/ Hydrocodone Bitart ([place] (5/325)) 1 tab Q4H PRN PO MODERATE PAIN LEVEL 4-6 Last administered on 01/18/19 00:56; Admin Dose 1 TAB; Start 01/09/19 at 20:30 Ondansetron HCl (Zofran Inj) 4 mg Q6H PRN IV NAUSEA AND/OR VOMITING Last administered on 01/14/19 19:59; Admin Dose 4 MG; Start 01/09/19 at 20:30 Diagnostic Test (Pha) (Accu-Chek) 1 ea 02 XX Last administered on 01/21/19 02:12; Admin Dose 1 EA; Start 01/10/19 at 02:00 Insulin Aspart (Novolog Insulin Pen) NOVOLOG *MILD* ALGORITHM WITH MEALS BEDTIME SC Last administered on 01/21/19 12:00; Admin Dose 1 UNIT; Start 01/09/19 at 22:30 Miscellaneous Information 1 ea NOTE XX ; Start 01/09/19 at 21:30 Glucose (Glutose) 15 gm Q15M PRN PO DECREASED GLUCOSE; Start 01/09/19 at 21:30 Glucose (Glutose) 22.5 gm Q15M PRN PO DECREASED GLUCOSE; Start 01/09/19 at 21:30 Dextrose (D50w Syringe) 25 ml Q15M PRN IV DECREASED GLUCOSE; Start 01/09/19 at 21:30 Dextrose (D50w Syringe) 50 ml Q15M PRN IV DECREASED GLUCOSE; Start 01/09/19 at 21:30 Glucagon (Glucagen) 1 mg Q15M PRN IM DECREASED GLUCOSE; Start 01/09/19 at 21:30 Glucose (Glutose) 15 gm Q15M PRN BUCCAL DECREASED GLUCOSE; Start 01/09/19 at 21:30 Insulin Glargine (Lantus) 18 units QHS SC Last administered on 01/20/19 20:57; Admin Dose 18 UNITS; Start 01/09/19 at 22:30 Carvedilol (Coreg) 3.125 mg BID PO Last administered on 01/20/19 20:46; Admin Dose 3.125 MG; Start 01/10/19 at 21:00 Vancomycin HCl (Vanco Iv Per Pharmacy) VANCOMYCIN PER PHARMACY PER PROTOCOL XX ; Start 01/11/19 at 02:30 Lisinopril (Zestril) 2.5 mg DAILY PO Last administered on 01/18/19 08:22; Adm in Dose 2.5 MG; Start 01/13/19 at 09:00 Senna (Senokot) 1 tab DAILY PRN PO CONSTIPATION Last administered on 01/14/19 16:52; Admin Dose 1 TAB; Start 01/12/19 at 18:30 Docusate Sodium (Colace) 100 mg BID PRN PO CONSTIPATION Last administered on 01/19/19 21:26; Admin Dose 100 MG; Start 01/12/19 at 18:30 Neomycin/ Polymyxin/ Bacitracin (Neosporin Topical Oint) 1 applic DAILY TOP Last administered on 01/21/19 08:35; Admin Dose 1 APPLIC; Start 01/12/19 at 18:30 Furosemide (Lasix) 20 mg DAILY PO Last administered on 01/21/19 08:34; Admin Dose 20 MG; Start 01/15/19 at 09:00 Cyanocobalamin (Vitamin B12 Inj) 1,000 mcg DAILY IM Last administered on 01/21/19 08:35; Admin Dose 1,000 MCG; Start 01/16/19 at 09:00 Vancomycin HCl 1.25 gm/Sodium Chloride 250 ml @ 83.333 mls/ hr Q12H IVPB Last administered on 01/21/19 15:50; Admin Dose 83.333 MLS/HR; Start 01/16/19 at 16:00 Pantoprazole (Protonix Tab) 40 mg DAILY@06 PO Last administered on 01/21/19 05:47; Admin Dose 40 MG; Start 01/17/19 at 06:00 Metronidazole 100 ml @ 100 mls/hr Q8 IVPB Last administered on 01/21/19at 13:01; Admin Dose 100 MLS/HR; Start 01/16/19 at 22:00 Cefepime HCl 50 ml @ 100 mls/hr Q12 IVPB Last administered on 01/21/19at 08:30; Admin Dose 100 MLS/HR; Start 01/17/19 at 21:00 Oxycodone HCl (Oxycontin) 10 mg BID PO Last administered on 01/21/19 08:33; Admin Dose 10 MG; Start 01/18/19 at 15:00 Hydromorphone HCl (Dilaudid) 1 mg Q4H PRN IV SEVERE PAIN LEVEL 7-10 Last administered on 01/21/19at 15:50; Admin Dose 1 MG; Start 01/18/19 at 15:00 DENITA WOMACK MD January 21, 2019 16:39
--- NOTE | 2019-01-21 17:24 | CONS ---
Assessment/Plan Assessment/Plan Assessment/Plan (Daily) Assessment/Plan Hospital Course (Demo Recall) 63 yo male with anemia 1. Right heel necrotic wound. 2. Cardiomyopathy with ejection fraction of 20% to 30%. 3. Peripheral vascular disease status post PCI, right lower extremity. 4. Coronary artery disease status post coronary artery bypass graft. 5. Status post automatic implantable cardioverter-defibrillator. 6. Hypertension. 7. Diabetes mellitus. 8. Anemia. Patient has a significant drop in hematocrit. So far, clinically, there is no evidence of obvious GI bleeding. 9. Ovoid mass or filling defect arising from lesser curvature of stomach. 10. Pt is pre op for peripheral artery bypass surgery which is on hold for now. CT of abd pelvis:IMPRESSION: 1. No acute intra-abdominal or pelvic abnormality including no evidence of intraperitoneal or retroperitoneal free fluid or hemorrhage seen. 2. There is an ovoid 3.5 cm mass/filling defect arising along the lesser curvature of the stomach, for which endoscopic evaluation is recommended. 3. No evidence of intestinal obstruction. Colonic diverticulosis without diverticulitis. Moderate colonic stool burden. 4. Advanced degenerative changes with chronic bilateral L5 pars defects, grade 2 anterolisthesis, along with associated central canal and foraminal stenosis at L5-S1. Plan EGD cancelled yesterday. Pt has been on plavix and biopsy of mass is needed. We will wait 5 days with patient off of Plavix. If no surgeries are scheduled for Saturday, which per pt and RN there is not, we will plan for EGD on Saturday to evaluate stomach mass seen on CT scan Continue PPI Continue diet as tolerated. PSA Consultation Date/Type/Reason Admit Date/Time January 09, 2019 at 18:17 Initial Consult Date 01/16/19 Requesting Provider: KRISTIN PRYOR MD Date/Time of Note DATE: 01/21/19 TIME: 17:23 24 HR Interval Summary Free Text/Dictation No gross GI bleeding Constitutional: no complaints, improved Exam/Review of Systems Exam Vitals Vital Signs Date Temp Pulse Resp B/P (MAP) Pulse Ox O2 O2 Flow FiO2 Time Delivery Rate 01/21/19 73 16:28 01/21/19 98.0 16 107/58 98 15:27 (74) 01/17/19 Room Air 14:00 Intake and Output 01/20/19 01/20/19 01/21/19 1515:00 23:00 07:00 IntakeIntake Total 1400 ml 400 ml OutputOutput Total 1800 ml 3 ml BalanceBalance -400 ml 397 ml Constitutional: alert, oriented, well developed Psych: no complaints, nl mood/affect Head: normocephalic, atraumatic Eyes: nl conjunctiva, EOMI, nl lids, nl sclera, PERRL ENMT: nl external ears & nose, nl lips & teeth, nl nasal mucosa & septum Neck: supple, non-tender Respiratory: clear to auscultation, normal air movement Cardiovascular: regular rate and rhythm, nl pulses Gastrointestinal: soft, nl liver, spleen, non-tender Musculoskeletal: nl extremities to inspection, nl gait and stance Extremities: normal pulses 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, nl mental status, nl speech, nl strength Skin: nl turgor; No rash or lesions Lymph: nl lymph nodes Results Result Diagram: 01/21/19 0615 01/21/19 0615 Results 24hrs Laboratory Tests Test 01/20/19 17:39 01/20/19 20:42 01/21/19 01:38 01/21/19 06:15 Bedside Glucose 164 139 155 White Blood Count 8.5 Red Blood Count 2.62 L Hemoglobin 7.9 L Hematocrit 24.7 L Mean Corpuscular 94.3 Volume Mean Corpuscular 30.2 Hemoglobin Mean Corpuscular 32.0 Hemoglobin Concent Red Cell 15.5 H Distribution Width Platelet Count 293 # Mean Platelet Volume 11.0 H Immature 0.900 H Granulocytes % Neutrophils % 57.7 Lymphocytes % 26.1 Monocytes % 11.1 H Eosinophils % 4.0 Basophils % 0.2 Nucleated Red Blood 0.0 Cells % Immature 0.080 H Granulocytes # Neutrophils # 4.9 Lymphocytes # 2.2 Monocytes # 0.9 Eosinophils # 0.3 Basophils # 0.0 Nucleated Red Blood 0.0 Cells # Sodium Level 138 Potassium Level 4.4 Chloride Level 104 Carbon Dioxide Level 29 Anion Gap 5 Blood Urea Nitrogen 17 Creatinine 0.61 Est Glomerular > 60 Filtrat Rate mL/min Glucose Level 109 Calcium Level 9.1 Test 01/21/19 07:55 01/21/19 11:52 01/21/19 17:03 Bedside Glucose 122 145 191 Medications Medication Current Medications Amiodarone HCl (Cordarone) 200 mg DAILY PO Last administered on 01/21/19 08:34; Admin Dose 200 MG; Start 01/10/19 at 09:00 Digoxin (Digoxin) 0.125 mg DAILY@1300 PO Last administered on 01/21/19 12:54; Admin Dose 0.125 MG; Start 01/10/19 at 13:00 Gabapentin (Neurontin) 600 mg DAILY PO Last administered on 01/21/19 08:33; Admin Dose 600 MG; Start 01/10/19 at 09:00 Empaglifozin (Jardiance) 25 mg DAILY PO Last administered on 01/21/19 08:33; Admin Dose 25 MG; Start 01/10/19 at 09:00 Linagliptin (Tradjenta) 5 mg DAILY PO Last administered on 01/21/19 08:35; Admin Dose 5 MG; Start 01/10/19 at 09:00 Diagnostic Test (Pha) (Accu-Chek) 1 ea AC MEALS AND BEDTIME XX Last administered on 01/20/19 21:00; Admin Dose 1 EA; Start 01/09/19 at 21:00 Acetaminophen (Tylenol Tab) 650 mg Q4H PRN PO MILD PAIN(1-3)OR ELEVATED TEMP; Start 01/09/19 at 20:30 Acetaminophen/ Hydrocodone Bitart ([place] (5/325)) 1 tab Q4H PRN PO MODERATE PAIN LEVEL 4-6 Last administered on 01/18/19 00:56; Admin Dose 1 TAB; Start 01/09/19 at 20:30 Ondansetron HCl (Zofran Inj) 4 mg Q6H PRN IV NAUSEA AND/OR VOMITING Last administered on 01/14/19 19:59; Admin Dose 4 MG; Start 01/09/19 at 20:30 Diagnostic Test (Pha) (Accu-Chek) 1 ea 02 XX Last administered on 01/21/19 02:12; Admin Dose 1 EA; Start 01/10/19 at 02:00 Insulin Aspart (Novolog Insulin Pen) NOVOLOG *MILD* ALGORITHM WITH MEALS BEDTIME SC Last administered on 01/21/19 17:15; Admin Dose 2 UNIT; Start 01/09/19 at 22:30 Miscellaneous Information 1 ea NOTE XX ; Start 01/09/19 at 21:30 Glucose (Glutose) 15 gm Q15M PRN PO DECREASED GLUCOSE; Start 01/09/19 at 21:30 Glucose (Glutose) 22.5 gm Q15M PRN PO DECREASED GLUCOSE; Start 01/09/19 at 21:30 Dextrose (D50w Syringe) 25 ml Q15M PRN IV DECREASED GLUCOSE; Start 01/09/19 at 21:30 Dextrose (D50w Syringe) 50 ml Q15M PRN IV DECREASED GLUCOSE; Start 01/09/19 at 21:30 Glucagon (Glucagen) 1 mg Q15M PRN IM DECREASED GLUCOSE; Start 01/09/19 at 21:30 Glucose (Glutose) 15 gm Q15M PRN BUCCAL DECREASED GLUCOSE; Start 01/09/19 at 21:30 Insulin Glargine (Lantus) 18 units QHS SC Last administered on 01/20/19 20:57; Admin Dose 18 UNITS; Start 01/09/19 at 22:30 Carvedilol (Coreg) 3.125 mg BID PO Last administered on 01/20/19 20:46; Admin Dose 3.125 MG; Start 01/10/19 at 21:00 Vancomycin HCl (Vanco Iv Per Pharmacy) VANCOMYCIN PER PHARMACY PER PROTOCOL XX ; Start 01/11/19 at 02:30 Lisinopril (Zestril) 2.5 mg DAILY PO Last administered on 01/18/19 08:22; Admin Dose 2.5 MG; Start 01/13/19 at 09:00 Senna (Senokot) 1 tab DAILY PRN PO CONSTIPATION Last administered on 01/14/19 16:52; Admin Dose 1 TAB; Start 01/12/19 at 18:30 Docusate Sodium (Colace) 100 mg BID PRN PO CONSTIPATION Last administered on 01/19/19 21:26; Admin Dose 100 MG; Start 01/12/19 at 18:30 Neomycin/ Polymyxin/ Bacitracin (Neosporin Topical Oint) 1 applic DAILY TOP L ast administered on 01/21/19 08:35; Admin Dose 1 APPLIC; Start 01/12/19 at 18:30 Furosemide (Lasix) 20 mg DAILY PO Last administered on 01/21/19 08:34; Admin Dose 20 MG; Start 01/15/19 at 09:00 Cyanocobalamin (Vitamin B12 Inj) 1,000 mcg DAILY IM Last administered on 01/21/19 08:35; Admin Dose 1,000 MCG; Start 01/16/19 at 09:00 Vancomycin HCl 1.25 gm/Sodium Chloride 250 ml @ 83.333 mls/ hr Q12H IVPB Last administered on 01/21/19 15:50; Admin Dose 83.333 MLS/HR; Start 01/16/19 at 16:00 Pantoprazole (Protonix Tab) 40 mg DAILY@06 PO Last administered on 01/21/19 05:47; Admin Dose 40 MG; Start 01/17/19 at 06:00 Metronidazole 100 ml @ 100 mls/hr Q8 IVPB Last administered on 01/21/19 13: 01; Admin Dose 100 MLS/HR; Start 01/16/19 at 22:00 Cefepime HCl 50 ml @ 100 mls/hr Q12 IVPB Last administered on 01/21/19 08:30; Admin Dose 100 MLS/HR; Start 01/17/19 at 21:00 Oxycodone HCl (Oxycontin) 10 mg BID PO Last administered on 01/21/19 08:33; Admin Dose 10 MG; Start 01/18/19 at 15:00 Hydromorphone HCl (Dilaudid) 1 mg Q4H PRN IV SEVERE PAIN LEVEL 7-10 Last administered on 01/21/19 15:50; Admin Dose 1 MG; Start 01/18/19 at 15:00 KACI TORRES MD January 21, 2019 17:24
--- NOTE | 2019-01-21 18:00 | CONS ---
Assessment/Plan Assessment/Plan Hospital Course (Demo Recall) IMP: 1.Pre-op for peripheral bypass surgery. Lexiscan with no ischemia/+scar EF 28%. Echo EF 25%. 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 anemia/GIB Recc: -ON tele -Continue coreg and zestril as tolerated only for treatment of cardiomyopathy -Continue amio -PLavix held in anticipation of endoscopy -Continue abx's and f/u cx data -Follow volume status clsoely -local wound care -pnding LE bypass when patient stable -transfuse PRBC's as necessary Consultation Date/Type/Reason Admit Date/Time January 09, 2019 at 18:17 Initial Consult Date 01/10/19 Type of Consult Cardiology Reason for Consultation Preop/CHF Requesting Provider: KRISTIN PRYOR MD Date/Time of Note DATE: 01/21/19 TIME: 17:57 Exam/Review of Systems Vital Signs Vitals Vital Signs Date Temp Pulse Resp B/P (MAP) Pulse Ox O2 O2 Flow FiO2 Time Delivery Rate 01/21/19 73 16:28 01/21/19 98.0 16 107/58 98 15:27 (74) 01/17/19 Room Air 14:00 Intake and Output 01/20/19 01/20/19 01/21/19 1515:00 23:00 07:00 IntakeIntake Total 1400 ml 400 ml OutputOutput Total 1800 ml 3 ml BalanceBalance -400 ml 397 ml Exam Exam Review of Systems: CONSTITUTIONAL: No fevers, chills. PULMONARY: No sob CARDIOVASCULAR: No chest pain/palpitations GASTROINTESTINAL: No nausea/vomiting. GENITOURINARY: No hematuria/dysuria. MUSCULOSKELETAL: No myagias/arthalgias. PSYCHIATRIC: The patient denies depression. NEUROLOGIC: No weakness Constitutional: alert Psych: no complaints Head: normocephalic ENMT: mucosa pink and moist Neck: supple, jvd (9 cm water) Respiratory: clear to auscultation Cardiovascular: regular rate and rhythm Gastrointestinal: soft, non-tender Musculoskeletal: muscle tone (normal) Extremities: edema (trace) 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: other (NO focal deficits) Labs Result Diagram: 01/21/19 0615 01/21/19 0615 Results 24hrs Laboratory Tests Test 01/20/19 20:42 01/21/19 01:38 01/21/19 06:15 01/21/19 07:55 Bedside Glucose 139 155 122 White Blood Count 8.5 Red Blood Count 2.62 L Hemoglobin 7.9 L Hematocrit 24.7 L Mean Corpuscular 94.3 Volume Mean Corpuscular 30.2 Hemoglobin Mean Corpuscular 32.0 Hemoglobin Concent Red Cell 15.5 H Distribution Width Platelet Count 293 # Mean Platelet Volume 11.0 H Immature 0.900 H Granulocytes % Neutrophils % 57.7 Lymphocytes % 26.1 Monocytes % 11.1 H Eosinophils % 4.0 Basophils % 0.2 Nucleated Red Blood 0.0 Cells % Immature 0.080 H Granulocytes # Neutrophils # 4.9 Lymphocytes # 2.2 Monocytes # 0.9 Eosinophils # 0.3 Basophils # 0.0 Nucleated Red Blood 0.0 Cells # Sodium Level 138 Potassium Level 4.4 Chloride Level 104 Carbon Dioxide Level 29 Anion Gap 5 Blood Urea Nitrogen 17 Creatinine 0.61 Est Glomerular > 60 Filtrat Rate mL/min Glucose Level 109 Calcium Level 9.1 Test 01/21/19 11:52 01/21/19 17:03 Bedside Glucose 145 191 Medications Medications Current Medications Amiodarone HCl (Cordarone) 200 mg DAILY PO Last administered on 01/21/19at 08:34; Admin Dose 200 MG; Start 01/10/19 at 09:00 Digoxin (Digoxin) 0.125 mg DAILY@1300 PO Last administered on 01/21/19 12:54; Admin Dose 0.125 MG; Start 01/10/19 at 13:00 Gabapentin (Neurontin) 600 mg DAILY PO Last administered on 01/21/19 08:33; Admin Dose 600 MG; Start 01/10/19 at 09:00 Empaglifozin (Jardiance) 25 mg DAILY PO Last administered on 01/21/19 08:33; Admin Dose 25 MG; Start 01/10/19 at 09:00 Linagliptin (Tradjenta) 5 mg DAILY PO Last administered on 01/21/19 08:35; Admin Dose 5 MG; Start 01/10/19 at 09:00 Diagnostic Test (Pha) (Accu-Chek) 1 ea AC MEALS AND BEDTIME XX Last administered on 01/20/19at 21:00; Admin Dose 1 EA; Start 01/09/19 at 21:00 Acetaminophen (Tylenol Tab) 650 mg Q4H PRN PO MILD PAIN(1-3)OR ELEVATED TEMP; Start 01/09/19 at 20:30 Acetaminophen/ Hydrocodone Bitart ([place] (5/325)) 1 tab Q4H PRN PO MODERATE PAIN LEVEL 4-6 Last administered on 01/18/19at 00:56; Admin Dose 1 TAB; Start 01/09/19 at 20:30 Ondansetron HCl (Zofran Inj) 4 mg Q6H PRN IV NAUSEA AND/OR VOMITING Last administered on 01/14/19 19:59; Admin Dose 4 MG; Start 01/09/19 at 20:30 Diagnostic Test (Pha) (Accu-Chek) 1 ea 02 XX Last administered on 01/21/19at 02:12; Admin Dose 1 EA; Start 01/10/19 at 02:00 Insulin Aspart (Novolog Insulin Pen) NOVOLOG *MILD* ALGORITHM WITH MEALS BEDTIME SC Last administered on 01/21/19at 17:15; Admin Dose 2 UNIT; Start 01/09/19 at 22:30 Miscellaneous Information 1 ea NOTE XX ; Start 01/09/19 at 21:30 Glucose (Glutose) 15 gm Q15M PRN PO DECREASED GLUCOSE; Start 01/09/19 at 21:30 Glucose (Glutose) 22.5 gm Q15M PRN PO DECREASED GLUCOSE; Start 01/09/19 at 21:30 Dextrose (D50w Syringe) 25 ml Q15M PRN IV DECREASED GLUCOSE; Start 01/09/19 at 21:30 Dextrose (D50w Syringe) 50 ml Q15M PRN IV DECREASED GLUCOSE; Start 01/09/19 at 21:30 Glucagon (Glucagen) 1 mg Q15M PRN IM DECREASED GLUCOSE; Start 01/09/19 at 21:30 Glucose (Glutose) 15 gm Q15M PRN BUCCAL DECREASED GLUCOSE; Start 01/09/19 at 21:30 Insulin Glargine (Lantus) 18 units QHS SC Last administered on 01/20/19 20:57; Admin Dose 18 UNITS; Start 01/09/19 at 22:30 Carvedilol (Coreg) 3.125 mg BID PO Last administered on 01/20/19 20:46; Admin Dose 3.125 MG; Start 01/10/19 at 21:00 Vancomycin HCl (Vanco Iv Per Pharmacy) VANCOMYCIN PER PHARMACY PER PROTOCOL XX ; Start 01/11/19 at 02:30 Lisinopril (Zestril) 2.5 mg DAILY PO Last administered on 01/18/19 08:22; Admin Dose 2.5 MG; Start 01/13/19 at 09:00 Senna (Senokot) 1 tab DAILY PRN PO CONSTIPATION Last administered on 01/14/19 16:52; Admin Dose 1 TAB; Start 01/12/19 at 18:30 Docusate Sodium (Colace) 100 mg BID PRN PO CONSTIPATION Last administered on 01/19/19 21:26; Admin Dose 100 MG; Start 01/12/19 at 18:30 Neomycin/ Polymyxin/ Bacitracin (Neosporin Topical Oint) 1 applic DAILY TOP Last administered on 01/21/19 08:35; Admin Dose 1 APPLIC; Start 01/12/19 at 18:30 Furosemide (Lasix) 20 mg DAILY PO Last administered on 01/21/19 08:34; Admin Dose 20 MG; Start 01/15/19 at 09:00 Cyanocobalamin (Vitamin B12 Inj) 1,000 mcg DAILY IM Last administered on 01/21/19 08:35; Admin Dose 1,000 MCG; Start 01/16/19 at 09:00 Vancomycin HCl 1.25 gm/Sodium Chloride 250 ml @ 83.333 mls/ hr Q12H IVPB Last administered on 01/21/19 15:50; Admin Dose 83.333 MLS/HR; Start 01/16/19 at 16:00 Pantoprazole (Protonix Tab) 40 mg DAILY@06 PO Last administered on 01/21/19 05:47; Admin Dose 40 MG; Start 01/17/19 at 06:00 Metronidazole 100 ml @ 100 mls/hr Q8 IVPB Last administered on 01/21/19 13:01; Admin Dose 100 MLS/HR; Start 01/16/19 at 22:00 Cefepime HCl 50 ml @ 100 mls/hr Q12 IVPB Last administered on 01/21/19 08:30; Admin Dose 100 MLS/HR; Start 01/17/19 at 21:00 Oxycodone HCl (Oxycontin) 10 mg BID PO Last administered on 01/21/19at 08:33; Admin Dose 10 MG; Start 01/18/19 at 15:00 Hydromorphone HCl (Dilaudid) 1 mg Q4H PRN IV SEVERE PAIN LEVEL 7-10 Last administered on 01/21/19at 15:50; Admin Dose 1 MG; Start 01/18/19 at 15:00 VERO ARELLANO January 21, 2019 18:00
[2019-01-21] MEDS: DOCUSATE SODIUM 100 MG CAP PO PRN (18:46)
[2019-01-21] MEDS: SENNA TAB PO PRN (18:46)
[2019-01-21] MEDS: FUROSEMIDE 20 MG INJ IV SCH (19:05)
[2019-01-21] MEDS: INSULIN GLARGINE [LANTus] (100 UNITS/ML) SYG SC SCH (20:53)
[2019-01-22] VITALS (14 sets, daily range): BP systolic 89–107; BP diastolic 52–69; PULSE 62–89; RESP 18–19
[2019-01-22] MEDS: HYDROmorphONE 1 MG/ML SYG IV PRN ×2 (00:02→05:29)
[2019-01-22] MEDS: ACCU-CHEK XX SCH ×5 (02:00→20:34)
[2019-01-22] MEDS: VANCOMYCIN HCL 1.25 GM in SOD CHLORIDE 0.9% 250 ML IVPB SCH (04:20)
[2019-01-22] MEDS: metroNIDAZOLE 500 MG/NS (PMX) 100 ML IVPB SCH ×3 (05:29→22:34)
[2019-01-22] MEDS: PANTOPRAZOLE (EC) 40 MG TAB PO SCH (05:29)
[2019-01-22] MEDS: FUROSEMIDE 20 MG INJ IV SCH ×2 (06:55→17:36)
[2019-01-22] MEDS: INSULIN ASPART [NOVOLOG] 3 ML PEN SC SCH ×4 (08:19→20:33)
[2019-01-22] MEDS: EMPAGLIFLOZIN 10 MG TABLET PO SCH (08:24)
[2019-01-22] MEDS: LINAGLIPTIN 5 MG TABLET PO SCH (08:24)
[2019-01-22] MEDS: AMIODARONE 200 MG TAB PO SCH (08:25)
[2019-01-22] MEDS: oxyCODONE (CR) 10 MG TAB [oxyCONTIN] PO SCH ×2 (08:25→20:23)
[2019-01-22] MEDS: GABAPENTIN 300 MG CAP PO SCH (08:26)
[2019-01-22] MEDS: NEOMYC/POLYMYX/BACIT 30 GM OINT TOP SCH (08:26)
[2019-01-22] MEDS: LISINOPRIL 5 MG TAB PO SCH (08:26)
[2019-01-22] MEDS: CYANOCOBALAMIN 1000 MCG INJ IM SCH (08:28)
[2019-01-22] MEDS: CEFEPIME 2GM/50 ML (PMX) 50 ML IVPB SCH ×2 (08:41→20:35)
[2019-01-22] MEDS: SOD FERRIC GLUC COMPLX 125 MG in SOD CHLORIDE 0.9% 100 ML IVPB SCH (12:15)
[2019-01-22] MEDS: DIGOXIN 0.125 MG TAB PO SCH (12:23)
--- NOTE | 2019-01-22 12:59 | CONS ---
Assessment/Plan Assessment/Plan Hospital Course (Demo Recall) IMP: 1.Pre-op for peripheral bypass surgery. Lexiscan with no ischemia/+scar EF 28%. Echo EF 25%. OK to proceed to surgery at moderate CV risk 2.Cardiomyopathy with low EF-severely depressed by echo this admit 3.HTN 4.HL 5.Non-healing LE ulcer 6.PAD-severe s/p prior [employer] 7.DM 8. anemia/GIB Recc: -ON tele -Continue coreg and zestril as tolerated only for treatment of cardiomyopathy -Continue amio -PLavix held in anticipation of endoscopy/Bx -Continue abx's and f/u cx data -Follow volume status clsoely -local wound care -pnding LE bypass when patient stable -transfuse PRBC's as necessary Consultation Date/Type/Reason Admit Date/Time January 09, 2019 at 18:17 Initial Consult Date 01/10/19 Type of Consult Cardiology Reason for Consultation Preop Requesting Provider: KRISTIN PRYOR MD Date/Time of Note DATE: 01/22/19 TIME: 12:56 Exam/Review of Systems Vital Signs Vitals Vital Signs Date Temp Pulse Resp B/P (MAP) Pulse Ox O2 O2 Flow FiO2 Time Delivery Rate 01/22/19 76 12:22 01/22/19 98.1 18 92/53 (66) 97 11:07 Intake and Output 01/21/19 01/21/19 01/22/19 1515:00 23:00 07:00 IntakeIntake Total 1000 ml 750 ml OutputOutput Total 1500 ml 1400 ml BalanceBalance -500 ml -650 ml Exam Exam Review of Systems: CONSTITUTIONAL: No fevers, chills. PULMONARY: No sob CARDIOVASCULAR: No chest pain/palpitations GASTROINTESTINAL: No nausea/vomiting. GENITOURINARY: No hematuria/dysuria. MUSCULOSKELETAL: No myagias/arthalgias. PSYCHIATRIC: The patient denies depression. NEUROLOGIC: No weakness Constitutional: alert Psych: no complaints Head: normocephalic ENMT: mucosa pink and moist Neck: supple, jvd (9 cm water) Respiratory: diminished breath sounds Cardiovascular: regular rate and rhythm Gastrointestinal: soft, non-tender Musculoskeletal: muscle tone (normal) Extremities: pitting pedal edema (bilateral) 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: other (No focal deficits) Labs Result Diagram: 01/21/19 0615 01/21/19 0615 Results 24hrs Laboratory Tests Test 01/21/19 17:03 01/21/19 20:40 01/22/19 02:29 01/22/19 08:09 Bedside Glucose 191 174 172 143 Test 01/22/19 12:15 Bedside Glucose 137 Medications Medications Current Medications Amiodarone HCl (Cordarone) 200 mg DAILY PO Last administered on 01/22/19 08:25; Admin Dose 200 MG; Start 01/10/19 at 09:00 Digoxin (Digoxin) 0.125 mg DAILY@1300 PO Last administered on 01/22/19 12:23; Admin Dose 0.125 MG; Start 01/10/19 at 13:00 Gabapentin (Neurontin) 600 mg DAILY PO Last administered on 01/21/19 08:33; Admin Dose 600 MG; Start 01/10/19 at 09:00 Empaglifozin (Jardiance) 25 mg DAILY PO Last administered on 01/22/19 08:24; Admin Dose 25 MG; Start 01/10/19 at 09:00 Linagliptin (Tradjenta) 5 mg DAILY PO Last administered on 01/22/19 08:24; Admin Dose 5 MG; Start 01/10/19 at 09:00 Diagnostic Test (Pha) (Accu-Chek) 1 ea AC MEALS AND BEDTIME XX Last administered on 01/22/19 12:15; Admin Dose 1 EA; Start 01/09/19 at 21:00 Acetaminophen (Tylenol Tab) 650 mg Q4H PRN PO MILD PAIN(1-3)OR ELEVATED TEMP; Start 01/09/19 at 20:30 Ondansetron HCl (Zofran Inj) 4 mg Q6H PRN IV NAUSEA AND/OR VOMITING Last administered on 01/14/19 19:59; Admin Dose 4 MG; Start 01/09/19 at 20:30 Diagnostic Test (Pha) (Accu-Chek) 1 ea 02 XX Last administered on 01/22/19 02:00; Admin Dose 1 EA; Start 01/10/19 at 02:00 Insulin Aspart (Novolog Insulin Pen) NOVOLOG *MILD* ALGORITHM WITH MEALS BEDTIME SC Last administered on 01/22/19 08:19; Admin Dose 1 UNIT; Start 01/09/19 at 22:30 Miscellaneous Information 1 ea NOTE XX ; Start 01/09/19 at 21:30 Glucose (Glutose) 15 gm Q15M PRN PO DECREASED GLUCOSE; Start 01/09/19 at 21:30 Glucose (Glutose) 22.5 gm Q15M PRN PO DECREASED GLUCOSE; Start 01/09/19 at 21:30 Dextrose (D50w Syringe) 25 ml Q15M PRN IV DECREASED GLUCOSE; Start 01/09/19 at 21:30 Dextrose (D50w Syringe) 50 ml Q15M PRN IV DECREASED GLUCOSE; Start 01/09/19 at 21:30 Glucagon (Glucagen) 1 mg Q15M PRN IM DECREASED GLUCOSE; Start 01/09/19 at 21:30 Glucose (Glutose) 15 gm Q15M PRN BUCCAL DECREASED GLUCOSE; Start 01/09/19 at 21:30 Insulin Glargine (Lantus) 18 units QHS SC Last administered on 01/21/19at 20:53; Admin Dose 18 UNITS; Start 01/09/19 at 22:30 Carvedilol (Coreg) 3.125 mg BID PO Last administered on 01/20/19 20:46; Admin Dose 3.125 MG; Start 01/10/19 at 21:00 Vancomycin HCl (Vanco Iv Per Pharmacy) VANCOMYCIN PER PHARMACY PER PROTOCOL XX ; Start 01/11/19 at 02:30 Lisinopril (Zestril) 2.5 mg DAILY PO Last administered on 01/18/19 08:22; Admin Dose 2.5 MG; Start 01/13/19 at 09:00 Senna (Senokot) 1 tab DAILY PRN PO CONSTIPATION Last administered on 01/21/19 18:46; Admin Dose 1 TAB; Start 01/12/19 at 18:30 Docusate Sodium (Colace) 100 mg BID PRN PO CONSTIPATION Last administered on 01/21/19 18:46; Admin Dose 100 MG; Start 01/12/19 at 18:30 Neomycin/ Polymyxin/ Bacitracin (Neosporin Topical Oint) 1 applic DAILY TOP Last administered on 01/22/19 08:26; Admin Dose 1 APPLIC; Start 01/12/19 at 18:30 Cyanocobalamin (Vitamin B12 Inj) 1,000 mcg DAILY IM Last administered on 01/22 08:28; Admin Dose 1,000 MCG; Start 01/16/19 at 09:00 Pantoprazole (Protonix Tab) 40 mg DAILY@06 PO Last administered on 01/22/19at 05:29; Admin Dose 40 MG; Start 01/17/19 at 06:00 Metronidazole 100 ml @ 100 mls/hr Q8 IVPB Last administered on 01/22/19at 05:29; Admin Dose 100 MLS/HR; Start 01/16/19 at 22:00 Cefepime HCl 50 ml @ 100 mls/hr Q12 IVPB Last administered on 01/22/19at 08:41; Admin Dose 100 MLS/HR; Start 01/17/19 at 21:00 Oxycodone HCl (Oxycontin) 10 mg BID PO Last administered on 01/22/19at 08:25; Admin Dose 10 MG; Start 01/18/19 at 15:00 Furosemide (Lasix) 20 mg BID DIURETICS IV Last administered on 01/22/19at 06:55; Admin Dose 20 MG; Start 01/21/19 at 18:30 Ferric Sodium Gluconate Complex 125 mg/Sodium Chloride 110 ml @ 110 mls/hr DAILY@1300 IVPB Last administered on 01/22/19at 12:15; Admin Dose 110 MLS/HR; Start 01/22/19 at 13:00; Stop 01/26/19 at 13:59 Hydromorphone HCl (Dilaudid) 0.5 mg Q4H PRN IV SEVERE PAIN LEVEL 7-10; Start 01/22/19 at 13:00 Vancomycin HCl 250 ml @ 125 mls/hr Q12H IVPB ; Start 01/22/19 at 16:00 VERO ARELLANO January 22, 2019 12:59
--- NOTE | 2019-01-22 13:07 | PN ---
Date/Time of Note Date/Time of Note DATE: 01/22/19 TIME: 13:05 Assessment/Plan VTE Prophylaxis Risk score (from Ns)>0 risk: 5 SCD applied (from Ns): Yes Pharmacological prophylaxis: NA/contraindicated Pharm contraindication: bleeding Lines/Catheters IV Catheter Type (from Nrsg): Central Line Central line still needed: Yes Urinary Cath still in place: No Assessment/Plan Hospital Course No acute events overnight, patient remains hemodynamically stable, plan for EGD on Saturday, Plavix is held. Assessment/Plan -Gastric mass, plan for EGD. Continue PPI. Dr. Roberts is following in gastroenterology consultation. -New onset of anemia and hypotension requiring blood transfusion on 01/15/2019, stool for OB is negative. -Right heel necrotic wound. Dr. Mata is following in podiatry consultation. Status post debridement. Continue antibiotics per ID. Dr. Urbano is following in infection disease consultation. -Chronic peripheral vascular disease, history of angioplasty x2. Dr. Sheppard is following in vascular surgery consultation. Plan for a right pop DP bypass which is on hold due to GI issues. -Coronary artery disease, status post coronary artery bypass graft. -Cardiomyopathy with ejection fraction of 25%. Continue Coreg. Dr. Foster is following in cardiology consultation. -Status post AICD. -Hx of Hypertension. -Diabetes hemoglobin A1c 7.6. Continue Lantus and NovoLog. -Right knee contusion and abrasion status post fall. Status post evaluation by Dr. Zelaya and orthopedic surgery. No signs of fracture or dystrophic dislocation. -Chronic low back pain with significant spondylolisthesis grade II at the level of L5 to S1. Further recommendations based on clinical course. Plan of care discussed with Dr. Mann. Result Diagram: 01/21/19 0615 01/21/19 0615 Results 24hrs Laboratory Tests Test 01/21/19 17:03 01/21/19 20:40 01/22/19 02:29 01/22/19 08:09 Bedside Glucose 191 174 172 143 Test 01/22/19 12:15 Bedside Glucose 137 Exam/Review of Systems Exam Vitals Vital Signs Date Temp Pulse Resp B/P (MAP) Pulse Ox O2 O2 Flow FiO2 Time Delivery Rate 01/22/19 76 12:22 01/22/19 98.1 18 92/53 (66) 97 11:07 Intake and Output 5/15/19 5/15/19 5/16/19 1515:00 23:00 07:00 IntakeIntake Total 1000 ml 750 ml OutputOutput Total 1500 ml 1400 ml BalanceBalance -500 ml -650 ml Exam Constitutional: alert, oriented Respiratory: clear to auscultation Cardiovascular: regular rhythm and rate, AICD Gastrointestinal: soft, non-tender Extremities: normal pulses, other (Right heel wound) Right chest triple lumen catheter Results Results 24hrs Laboratory Tests Test 01/21/19 17:03 01/21/19 20:40 01/22/19 02:29 01/22/19 08:09 Bedside Glucose 191 174 172 143 Test 01/22/19 12:15 Bedside Glucose 137 Medications Medication Current Medications Amiodarone HCl (Cordarone) 200 mg DAILY PO Last administered on 01/22/19 08:25; Admin Dose 200 MG; Start 01/10/19 at 09:00 Digoxin (Digoxin) 0.125 mg DAILY@1300 PO Last administered on 01/22/19 12:23; Admin Dose 0.125 MG; Start 01/10/19 at 13:00 Gabapentin (Neurontin) 600 mg DAILY PO Last administered on 01/21/19 08:33; Admin Dose 600 MG; Start 01/10/19 at 09:00 Empaglifozin (Jardiance) 25 mg DAILY PO Last administered on 01/22/19 08:24; Admin Dose 25 MG; Start 01/10/19 at 09:00 Linagliptin (Tradjenta) 5 mg DAILY PO Last administered on 01/22/19 08:24; Admin Dose 5 MG; Start 01/10/19 at 09:00 Diagnostic Test (Pha) (Accu-Chek) 1 ea AC MEALS AND BEDTIME XX Last administered on 01/22/19 12:15; Admin Dose 1 EA; Start 01/09/19 at 21:00 Acetaminophen (Tylenol Tab) 650 mg Q4H PRN PO MILD PAIN(1-3)OR ELEVATED TEMP; Start 01/09/19 at 20:30 Ondansetron HCl (Zofran Inj) 4 mg Q6H PRN IV NAUSEA AND/OR VOMITING Last administered on 01/14/19 19:59; Admin Dose 4 MG; Start 01/09/19 at 20:30 Diagnostic Test (Pha) (Accu-Chek) 1 ea 02 XX Last administered on 01/22/19at 02:00; Admin Dose 1 EA; Start 01/10/19 at 02:00 Insulin Aspart (Novolog Insulin Pen) NOVOLOG *MILD* ALGORITHM WITH MEALS BEDTIME SC Last administered on 01/22/19 08:19; Admin Dose 1 UNIT; Start 01/09/19 at 22:30 Miscellaneous Information 1 ea NOTE XX ; Start 01/09/19 at 21:30 Glucose (Glutose) 15 gm Q15M PRN PO DECREASED GLUCOSE; Start 01/09/19 at 21:30 Glucose (Glutose) 22.5 gm Q15M PRN PO DECREASED GLUCOSE; Start 01/09/19 at 21:30 Dextrose (D50w Syringe) 25 ml Q15M PRN IV DECREASED GLUCOSE; Start 01/09/19 at 21:30 Dextrose (D50w Syringe) 50 ml Q15M PRN IV DECREASED GLUCOSE; Start 01/09/19 at 21:30 Glucagon (Glucagen) 1 mg Q15M PRN IM DECREASED GLUCOSE; Start 01/09/19 at 21:30 Glucose (Glutose) 15 gm Q15M PRN BUCCAL DECREASED GLUCOSE; Start 01/09/19 at 21: 30 Insulin Glargine (Lantus) 18 units QHS SC Last administered on 01/21/19at 20:53; Admin Dose 18 UNITS; Start 01/09/19 at 22:30 Carvedilol (Coreg) 3.125 mg BID PO Last administered on 01/20/19at 20:46; Admin Dose 3.125 MG; Start 01/10/19 at 21:00 Vancomycin HCl (Vanco Iv Per Pharmacy) VANCOMYCIN PER PHARMACY PER PROTOCOL XX ; Start 01/11/19 at 02:30 Lisinopril (Zestril) 2.5 mg DAILY PO Last administered on 01/18/19 08:22; Admin Dose 2.5 MG; Start 01/13/19 at 09:00 Senna (Senokot) 1 tab DAILY PRN PO CONSTIPATION Last administered on 01/21/19 18:46; Admin Dose 1 TAB; Start 01/12/19 at 18:30 Docusate Sodium (Colace) 100 mg BID PRN PO CONSTIPATION Last administered on 01/21/19 18:46; Admin Dose 100 MG; Start 01/12/19 at 18:30 Neomycin/ Polymyxin/ Bacitracin (Neosporin Topical Oint) 1 applic DAILY TOP Last administered on 01/22/19 08:26; Admin Dose 1 APPLIC; Start 01/12/19 at 18:30 Cyanocobalamin (Vitamin B12 Inj) 1,000 mcg DAILY IM Last administered on 01/22/19 08:28; Admin Dose 1,000 MCG; Start 01/16/19 at 09:00 Pantoprazole (Protonix Tab) 40 mg DAILY@06 PO Last administered on 01/22/19 05:29; Admin Dose 40 MG; Start 01/17/19 at 06:00 Metronidazole 100 ml @ 100 mls/hr Q8 IVPB Last administered on 01/22/19 05:29; Admin Dose 100 MLS/HR; Start 01/16/19 at 22:00 Cefepime HCl 50 ml @ 100 mls/hr Q12 IVPB Last administered on 01/22/19 08:41; Admin Dose 100 MLS/HR; Start 01/17/19 at 21:00 Oxycodone HCl (Oxycontin) 10 mg BID PO Last administered on 01/22/19 08:25; Admin Dose 10 MG; Start 01/18/19 at 15:00 Furosemide (Lasix) 20 mg BID DIURETICS IV Last administered on 01/22/19 06:55; Admin Dose 20 MG; Start 01/21/19 at 18:30 Ferric Sodium Gluconate Complex 125 mg/Sodium Chloride 110 ml @ 110 mls/hr DAILY@1300 IVPB Last administered on 01/22/19 12:15; Admin Dose 110 MLS/HR; Start 01/22/19 at 13:00; Stop 01/26/19 at 13:59 Hydromorphone HCl (Dilaudid) 0.5 mg Q4H PRN IV SEVERE PAIN LEVEL 7-10; Start 01/22/19 at 13:00 Vancomycin HCl 250 ml @ 125 mls/hr Q12H IVPB ; Start 01/22/19 at 16:00 RAMESH SOLORZANO January 22, 2019 13:07
[2019-01-22] MEDS: HYDROmorphONE 0.5 MG/0.5 ML SYG IV PRN ×2 (13:33→20:24)
--- NOTE | 2019-01-22 13:40 | CONS ---
Assessment/Plan Assessment/Plan Hospital Course (Demo Recall) 63-year-old gentleman with history of coronary artery disease, status post CABG, also status post AICD placement, hypertension, diabetes, peripheral vascular disease, status post aortogram and right lower extremity runoff and percutaneous angioplasty of the posterior tibial artery and anterior tibial artery in 10/2018. Patient has a worsening RLE heel wound and thus admitted for sepsis. Patient with acute 3-4 gram drop in Hgb since admission and thus consulted for anemia. #Gastric mass -pt have this biopsied this saturday -further recommendations will be based on biopsy report # Anemia-normocytic -With the acute drop, there is concern about either a GI bleed or intraabdominal bleed. -continue to hold all blood thinners -CT A/P does not reveal evidence of bleed -f/u endoscopy. pt was found with a T3.5 cm mass/filling defect arising along the lesser curvature of the stomach, -Transfuse to keep hgb > 7. Patient had a transfusion yesterday but did not respond appropriately. -Iron studies are normal but vitamin b12 is low and thus initiated vitamin b12 1000 mcg weekly, will continue -There is no evidence of hemolysis at this time. -Stool occult blood sent and awaiting results; stool color was black. -I do not think there is a bone marrow disorder or blood disorder causing anemia and think this is highly due to blood loss. d. Consultation Date/Type/Reason Admit Date/Time January 09, 2019 at 18:17 Initial Consult Date 01/16/19 Type of Consult hematology Reason for Consultation gastric mass / anemia Requesting Provider: KRISTIN PRYOR MD Date/Time of Note DATE: 01/22/19 TIME: 13:38 24 HR Interval Summary Free Text/Dictation no acute overnight events Exam/Review of Systems Exam Vitals Vital Signs Date Temp Pulse Resp B/P (MAP) Pulse Ox O2 O2 Flow FiO2 Time Delivery Rate 01/22/19 89 19 107/69 96 13:28 (82) 01/22/19 98.1 11:07 Intake and Output 01/21/19 01/21/19 01/22/19 1515:00 23:00 07:00 IntakeIntake Total 1000 ml 750 ml OutputOutput Total 1500 ml 1400 ml BalanceBalance -500 ml -650 ml Constitutional: alert, oriented Psych: no complaints Head: normocephalic Eyes: nl conjunctiva ENMT: nl external ears & nose Neck: supple Respiratory: clear to auscultation Cardiovascular: regular rate and rhythm Gastrointestinal: soft Musculoskeletal: nl extremities to inspection, nl gait and stance Results Result Diagram: 01/21/19 0615 01/21/19 0615 Results 24hrs Laboratory Tests Test 01/21/19 17:03 01/21/19 20:40 01/22/19 02:29 01/22/19 08:09 Bedside Glucose 191 174 172 143 Test 01/22/19 12:15 Bedside Glucose 137 Medications Medication Current Medications Amiodarone HCl (Cordarone) 200 mg DAILY PO Last administered on 01/22/19 08:25; Admin Dose 200 MG; Start 01/10/19 at 09:00 Digoxin (Digoxin) 0.125 mg DAILY@1300 PO Last administered on 01/22/19 12:23; Admin Dose 0.125 MG; Start 01/10/19 at 13:00 Gabapentin (Neurontin) 600 mg DAILY PO Last administered on 01/21/19 08:33; Admin Dose 600 MG; Start 01/10/19 at 09:00 Empaglifozin (Jardiance) 25 mg DAILY PO Last administered on 01/22/19 08:24; Admin Dose 25 MG; Start 01/10/19 at 09:00 Linagliptin (Tradjenta) 5 mg DAILY PO Last administered on 01/22/19 08:24; Admin Dose 5 MG; Start 01/10/19 at 09:00 Diagnostic Test (Pha) (Accu-Chek) 1 ea AC MEALS AND BEDTIME XX Last administered on 01/22/19 12:15; Admin Dose 1 EA; Start 01/09/19 at 21:00 Acetaminophen (Tylenol Tab) 650 mg Q4H PRN PO MILD PAIN(1-3)OR ELEVATED TEMP; Start 01/09/19 at 20:30 Ondansetron HCl (Zofran Inj) 4 mg Q6H PRN IV NAUSEA AND/OR VOMITING Last administered on 01/14/19 19:59; Admin Dose 4 MG; Start 01/09/19 at 20:30 Diagnostic Test (Pha) (Accu-Chek) 1 ea 02 XX Last administered on 01/22/19at 02:00; Admin Dose 1 EA; Start 01/10/19 at 02:00 Insulin Aspart (Novolog Insulin Pen) NOVOLOG *MILD* ALGORITHM WITH MEALS BEDTIME SC Last administered on 01/22/19 08:19; Admin Dose 1 UNIT; Start 01/09 at 22:30 Miscellaneous Information 1 ea NOTE XX ; Start 01/09/19 at 21:30 Glucose (Glutose) 15 gm Q15M PRN PO DECREASED GLUCOSE; Start 01/09/19 at 21:30 Glucose (Glutose) 22.5 gm Q15M PRN PO DECREASED GLUCOSE; Start 01/09/19 at 21:30 Dextrose (D50w Syringe) 25 ml Q15M PRN IV DECREASED GLUCOSE; Start 01/09/19 at 21:30 Dextrose (D50w Syringe) 50 ml Q15M PRN IV DECREASED GLUCOSE; Start 01/09/19 at 21:30 Glucagon (Glucagen) 1 mg Q15M PRN IM DECREASED GLUCOSE; Start 01/09/19 at 21:30 Glucose (Glutose) 15 gm Q15M PRN BUCCAL DECREASED GLUCOSE; Start 01/09/19 at 21:30 Insulin Glargine (Lantus) 18 units QHS SC Last administered on 01/21/19at 20:53; Admin Dose 18 UNITS; Start 01/09/19 at 22:30 Carvedilol (Coreg) 3.125 mg BID PO Last administered on 01/20/19at 20:46; Admin Dose 3.125 MG; Start 01/10/19 at 21:00 Vancomycin HCl (Vanco Iv Per Pharmacy) VANCOMYCIN PER PHARMACY PER PROTOCOL XX ; Start 01/11/19 at 02:30 Lisinopril (Zestril) 2.5 mg DAILY PO Last administered on 01/18/19at 08:22; Admin Dose 2.5 MG; Start 01/13/19 at 09:00 Senna (Senokot) 1 tab DAILY PRN PO CONSTIPATION Last administered on 01/21/19at 18:46; Admin Dose 1 TAB; Start 01/12/19 at 18:30 Docusate Sodium (Colace) 100 mg BID PRN PO CONSTIPATION Last administered on 01/21/19at 18:46; Admin Dose 100 MG; Start 01/12/19 at 18:30 Neomycin/ Polymyxin/ Bacitracin (Neosporin Topical Oint) 1 applic DAILY TOP Last administered on 01/22/19 08:26; Admin Dose 1 APPLIC; Start 01/12/19 at 18:30 Cyanocobalamin (Vitamin B12 Inj) 1,000 mcg DAILY IM Last administered on 01/22/19 08:28; Admin Dose 1,000 MCG; Start 01/16/19 at 09:00 Pantoprazole (Protonix Tab) 40 mg DAILY@06 PO Last administered on 01/22/19 05:29; Admin Dose 40 MG; Start 01/17/19 at 06:00 Metronidazole 100 ml @ 100 mls/hr Q8 IVPB Last administered on 01/22/19 05 :29; Admin Dose 100 MLS/HR; Start 01/16/19 at 22:00 Cefepime HCl 50 ml @ 100 mls/hr Q12 IVPB Last administered on 01/22/19 08:41; Admin Dose 100 MLS/HR; Start 01/17/19 at 21:00 Oxycodone HCl (Oxycontin) 10 mg BID PO Last administered on 01/22/19 08:25; Admin Dose 10 MG; Start 01/18/19 at 15:00 Furosemide (Lasix) 20 mg BID DIURETICS IV Last administered on 01/22/19 06:55; Admin Dose 20 MG; Start 01/21/19 at 18:30 Ferric Sodium Gluconate Complex 125 mg/Sodium Chloride 110 ml @ 110 mls/hr DAILY@1300 IVPB Last administered on 01/22/19 12:15; Admin Dose 110 MLS/HR; Start 01/22/19 at 13:00; Stop 01/26/19 at 13:59 Hydromorphone HCl (Dilaudid) 0.5 mg Q4H PRN IV SEVERE PAIN LEVEL 7-10; Start 01/22/19 at 13:00 Vancomycin HCl 250 ml @ 125 mls/hr Q12H IVPB ; Start 01/22/19 at 16:00 JT QUINTERO M.D. January 22, 2019 13:40
[2019-01-22] MEDS: VANCOMYCIN 1 GM 250 ML IVPB SCH (15:59)
--- NOTE | 2019-01-22 17:26 | CONS ---
Assessment/Plan Assessment/Plan Assessment/Plan (Daily) Assessment/Plan (Daily) Assessment/Plan Hospital Course (Demo Recall) 63 yo male with anemia 1. Right heel necrotic wound. 2. Cardiomyopathy with ejection fraction of 20% to 30%. 3. Peripheral vascular disease status post PCI, right lower extremity. 4. Coronary artery disease status post coronary artery bypass graft. 5. Status post automatic implantable cardioverter-defibrillator. 6. Hypertension. 7. Diabetes mellitus. 8. Anemia. Patient has a significant drop in hematocrit. So far, clinically, there is no evidence of obvious GI bleeding. 9. Ovoid mass or filling defect arising from lesser curvature of stomach. 10. Pt is pre op for peripheral artery bypass surgery which is on hold for now. CT of abd pelvis:IMPRESSION: 1. No acute intra-abdominal or pelvic abnormality including no evidence of intraperitoneal or retroperitoneal free fluid or hemorrhage seen. 2. There is an ovoid 3.5 cm mass/filling defect arising along the lesser curvature of the stomach, for which endoscopic evaluation is recommended. 3. No evidence of intestinal obstruction. Colonic diverticulosis without diverticulitis. Moderate colonic stool burden. 4. Advanced degenerative changes with chronic bilateral L5 pars defects, grade 2 anterolisthesis, along with associated central canal and foraminal stenosis at L5-S1. Plan EGD cancelled yesterday. Pt has been on plavix and biopsy of mass is needed. We will wait 5 days with patient off of Plavix. If no surgeries are scheduled for Saturday, which per pt and RN there is not, we will plan for EGD on Saturday to evaluate stomach mass seen on CT scan Continue PPI Continue diet as tolerated. Patient is scheduled for EGD tomorrow Consultation Date/Type/Reason Admit Date/Time January 09, 2019 at 18:17 Initial Consult Date 01/16/19 Requesting Provider: KRISTIN PRYOR MD Date/Time of Note DATE: 01/22/19 TIME: 17:25 24 HR Interval Summary Constitutional: no complaints, improved Exam/Review of Systems Exam Vitals Vital Signs Date Temp Pulse Resp B/P (MAP) Pulse Ox O2 O2 Flow FiO2 Time Delivery Rate 01/22/19 79 16:24 01/22/19 98.1 19 89/55 (66) 96 15:04 Intake and Output 01/21/19 01/21/19 01/22/19 1515:00 23:00 07:00 IntakeIntake Total 1000 ml 750 ml OutputOutput Total 1500 ml 1400 ml BalanceBalance -500 ml -650 ml Constitutional: alert, oriented, well developed Psych: no complaints, nl mood/affect Head: normocephalic, atraumatic Eyes: nl conjunctiva, EOMI, nl lids, nl sclera, PERRL ENMT: nl external ears & nose, nl lips & teeth, nl nasal mucosa & septum Neck: supple, non-tender Respiratory: clear to auscultation, normal air movement Cardiovascular: regular rate and rhythm, nl pulses Gastrointestinal: soft, nl liver, spleen, non-tender Musculoskeletal: nl extremities to inspection, nl gait and stance Extremities: normal pulses 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: FIRER GLOST KILN II-XII intact, nl mental status, nl speech, nl strength Skin: nl turgor; No rash or lesions Lymph: nl lymph nodes Results Result Diagram: 01/21/19 0615 01/21/19 0615 Results 24hrs Laboratory Tests Test 01/21/19 20:40 01/22/19 02:29 01/22/19 08:09 01/22/19 12:15 Bedside Glucose 174 172 143 137 Medications Medication Current Medications Amiodarone HCl (Cordarone) 200 mg DAILY PO Last administered on 01/22/19 08:25; Admin Dose 200 MG; Start 01/10/19 at 09:00 Digoxin (Digoxin) 0.125 mg DAILY@1300 PO Last administered on 01/22/19at 12:23; Admin Dose 0.125 MG; Start 01/10/19 at 13:00 Gabapentin (Neurontin) 600 mg DAILY PO Last administered on 01/21/19at 08:33; Admin Dose 600 MG; Start 01/10/19 at 09:00 Empaglifozin (Jardiance) 25 mg DAILY PO Last administered on 01/22/19 08:24; Admin Dose 25 MG; Start 01/10/19 at 09:00 Linagliptin (Tradjenta) 5 mg DAILY PO Last administered on 01/22/19 08:24; Admin Dose 5 MG; Start 01/10/19 at 09:00 Diagnostic Test (Pha) (Accu-Chek) 1 ea AC MEALS AND BEDTIME XX Last administered on 01/22/19at 12:15; Admin Dose 1 EA; Start 01/09/19 at 21:00 Acetaminophen (Tylenol Tab) 650 mg Q4H PRN PO MILD PAIN(1-3)OR ELEVATED TEMP; Start 01/09/19 at 20:30 Ondansetron HCl (Zofran Inj) 4 mg Q6H PRN IV NAUSEA AND/OR VOMITING Last administered on 01/14/19 19:59; Admin Dose 4 MG; Start 01/09/19 at 20:30 Diagnostic Test (Pha) (Accu-Chek) 1 ea 02 XX Last administered on 01/22/19at 02:00; Admin Dose 1 EA; Start 01/10/19 at 02:00 Insulin Aspart (Novolog Insulin Pen) NOVOLOG *MILD* ALGORITHM WITH MEALS BEDTIME SC Last administered on 01/22/19 08:19; Admin Dose 1 UNIT; Start 01/09/19 at 22:30 Miscellaneous Information 1 ea NOTE XX ; Start 01/09/19 at 21:30 Glucose (Glutose) 15 gm Q15M PRN PO DECREASED GLUCOSE; Start 01/09/19 at 21:30 Glucose (Glutose) 22.5 gm Q15M PRN PO DECREASED GLUCOSE; Start 01/09/19 at 21:30 Dextrose (D50w Syringe) 25 ml Q15M PRN IV DECREASED GLUCOSE; Start 01/09/19 at 21:30 Dextrose (D50w Syringe) 50 ml Q15M PRN IV DECREASED GLUCOSE; Start 01/09/19 at 21:30 Glucagon (Glucagen) 1 mg Q15M PRN IM DECREASED GLUCOSE; Start 01/09/19 at 21:30 Glucose (Glutose) 15 gm Q15M PRN BUCCAL DECREASED GLUCOSE; Start 01/09/19 at 21:30 Insulin Glargine (Lantus) 18 units QHS SC Last administered on 01/21/19at 20:53; Admin Dose 18 UNITS; Start 01/09/19 at 22:30 Carvedilol (Coreg) 3.125 mg BID PO Last administered on 01/20/19at 20:46; Admin Dose 3.125 MG; Start 01/10/19 at 21:00 Vancomycin HCl (Vanco Iv Per Pharmacy) VANCOMYCIN PER PHARMACY PER PROTOCOL XX ; Start 01/11/19 at 02:30 Lisinopril (Zestril) 2.5 mg DAILY PO Last administered on 01/18/19 08:22; Admin Dose 2.5 MG; Start 01/13/19 at 09:00 Senna (Senokot) 1 tab DAILY PRN PO CONSTIPATION Last administered on 01/21/19 18:46; Admin Dose 1 TAB; Start 01/12/19 at 18:30 Docusate Sodium (Colace) 100 mg BID PRN PO CONSTIPATION Last administered on 01/21/19 18:46; Admin Dose 100 MG; Start 01/12/19 at 18:30 Neomycin/ Polymyxin/ Bacitracin (Neosporin Topical Oint) 1 applic DAILY TOP Last administered on 01/22/19 08:26; Admin Dose 1 APPLIC; Start 01/12/19 at 18:30 Cyanocobalamin (Vitamin B12 Inj) 1,000 mcg DAILY IM Last administered on 01/22/19 08:28; Admin Dose 1,000 MCG; Start 01/16/19 at 09:00 Pantoprazole (Protonix Tab) 40 mg DAILY@06 PO Last administered on 01/22/19 05:29; Admin Dose 40 MG; Start 01/17/19 at 06:00 Metronidazole 100 ml @ 100 mls/hr Q8 IVPB Last administered on 01/22/19 13:35; Admin Dose 100 MLS/HR; Start 01/16/19 at 22:00 Cefepime HCl 50 ml @ 100 mls/hr Q12 IVPB Last administered on 01/22/19 08:41; Admin Dose 100 MLS/HR; Start 01/17/19 at 21:00 Oxycodone HCl (Oxycontin) 10 mg BID PO Last administered on 01/22/19 08:25; Admin Dose 10 MG; Start 01/18/19 at 15:00 Furosemide (Lasix) 20 mg BID DIURETICS IV Last administered on 01/22/19 06:55; Admin Dose 20 MG; Start 01/21/19 at 18:30 Ferric Sodium Gluconate Complex 125 mg/Sodium Chloride 110 ml @ 110 mls/hr DAILY@1300 IVPB Last administered on 01/22/19 12:15; Admin Dose 110 MLS/HR; Start 01/22/19 at 13:00; Stop 01/26/19 at 13:59 Hydromorphone HCl (Dilaudid) 0.5 mg Q4H PRN IV SEVERE PAIN LEVEL 7-10 Last administered on 01/22/19at 13:33; Admin Dose 0.5 MG; Start 01/22/19 at 13:00 Vancomycin HCl 250 ml @ 125 mls/hr Q12H IVPB Last administered on 01/22/19at 15:59; Admin Dose 125 MLS/HR; Start 01/22/19 at 16:00 KACI TORRES MD January 22, 2019 17:26
--- NOTE | 2019-01-22 17:43 | PREAC ---
Date/Time of Note Date/Time of Note DATE: 01/22/19 TIME: 17:42 Anesthesia Eval and Record Evaluation Time Pre-Procedure Interview DATE: 01/22/19 TIME: 17:42 Age 63 Sex male NPO: 8 hrs Preoperative diagnosis ovoid 3.5 cm mass/filling defect Planned procedure EGD Past Medical History Past Medical History: Includes Cardio: HTN, CAD, CABG, Arrythmia, PPM/AICD, CHF, Other (Peripheral vascular disease) Endo: Diabetes GI: Morbid obesity Surgery & Anesthesia Issues No known issue Meds Anticoagulation: No Beta Tasha within 24 hr: No Reason Beta Tasha not given: Pt. not on B-Tasha Reported Medications Amiodarone Hcl* (Amiodarone Hcl*) 200 Mg Tablet, 200 MG PO DAILY, #30 TAB 01/09/19 Digoxin* (Digitek*) 125 Mcg Tablet, 0.125 MG PO DAILY, TAB 01/09/19 Rivaroxaban* (Xarelto*) 20 Mg Tablet, 20 MG PO WITH DINNER, TAB 01/09/19 Clopidogrel Bisulfate* (Clopidogrel Bisulfate*) 75 Mg Tablet, 75 MG PO DAILY, #30 TAB 01/09/19 Empagliflozin (Jardiance) 25 Mg Tablet, 25 MG PO DAILY, TAB 01/09/19 Insulin Glargine,Hum.rec.anlog (Basaglar Kwikpen U-100) 100 Unit/1 Ml Insuln.pen, 18 UNIT SC QHS, EA 01/09/19 Sulfamethoxazole/Trimethoprim* (Bactrim Ds* Tablet) 1 Each Tablet, 1 TAB PO BID, TAB FOR 10 DAYS,START TAKING 01/06/19 01/09/19 Tapentadol Hcl (Nucynta) 100 Mg Tablet, 100 MG PO BID, TAB 01/09/19 Gabapentin* (Gabapentin*) 600 Mg Tablet, 600 MG PO DAILY, #60 TAB 01/09/19 Metformin Hcl* (Metformin Hcl*) 1,000 Mg Tablet, 1000 MG PO WITH BREAKFAST DINNE, #60 TAB 01/09/19 Current Medications Amiodarone HCl (Cordarone) 200 mg DAILY PO Last administered on 01/22/19at 08:25; Admin Dose 200 MG; Start 01/10/19 at 09:00 Digoxin (Digoxin) 0.125 mg DAILY@1300 PO Last administered on 01/22/19at 12:23; Admin Dose 0.125 MG; Start 01/10/19 at 13:00 Gabapentin (Neurontin) 600 mg DAILY PO Last administered on 01/21/19 08:33; Admin Dose 600 MG; Start 01/10/19 at 09:00 Empaglifozin (Jardiance) 25 mg DAILY PO Last administered on 01/22/19 08:24; Admin Dose 25 MG; Start 01/10/19 at 09:00 Linagliptin (Tradjenta) 5 mg DAILY PO Last administered on 01/22/19 08:24; Admin Dose 5 MG; Start 01/10/19 at 09:00 Diagnostic Test (Pha) (Accu-Chek) 1 ea AC MEALS AND BEDTIME XX Last administered on 01/22/19 12:15; Admin Dose 1 EA; Start 01/09/19 at 21:00 Acetaminophen (Tylenol Tab) 650 mg Q4H PRN PO MILD PAIN(1-3)OR ELEVATED TEMP; Start 01/09/19 at 20:30 Ondansetron HCl (Zofran Inj) 4 mg Q6H PRN IV NAUSEA AND/OR VOMITING Last administered on 01/14/19 19:59; Admin Dose 4 MG; Start 01/09/19 at 20:30 Diagnostic Test (Pha) (Accu-Chek) 1 ea 02 XX Last administered on 01/22/19at 02:00; Admin Dose 1 EA; Start 01/10/19 at 02:00 Insulin Aspart (Novolog Insulin Pen) NOVOLOG *MILD* ALGORITHM WITH MEALS BED TIME SC Last administered on 01/22/19 08:19; Admin Dose 1 UNIT; Start 01/09/19 at 22:30 Miscellaneous Information 1 ea NOTE XX ; Start 01/09/19 at 21:30 Glucose (Glutose) 15 gm Q15M PRN PO DECREASED GLUCOSE; Start 01/09/19 at 21:30 Glucose (Glutose) 22.5 gm Q15M PRN PO DECREASED GLUCOSE; Start 01/09/19 at 21:30 Dextrose (D50w Syringe) 25 ml Q15M PRN IV DECREASED GLUCOSE; Start 01/09/19 at 21:30 Dextrose (D50w Syringe) 50 ml Q15M PRN IV DECREASED GLUCOSE; Start 01/09/19 at 21:30 Glucagon (Glucagen) 1 mg Q15M PRN IM DECREASED GLUCOSE; Start 01/09/19 at 21:30 Glucose (Glutose) 15 gm Q15M PRN BUCCAL DECREASED GLUCOSE; Start 01/09/19 at 21:30 Insulin Glargine (Lantus) 18 units QHS SC Last administered on 01/21/19 20:53; Admin Dose 18 UNITS; Start 01/09/19 at 22:30 Carvedilol (Coreg) 3.125 mg BID PO Last administered on 01/20/19 20:46; Admin Dose 3.125 MG; Start 01/10/19 at 21:00 Vancomycin HCl (Vanco Iv Per Pharmacy) VANCOMYCIN PER PHARMACY PER PROTOCOL XX ; Start 01/11/19 at 02:30 Lisinopril (Zestril) 2.5 mg DAILY PO Last administered on 01/18/19 08:22; Admin Dose 2.5 MG; Start 01/13/19 at 09:00 Senna (Senokot) 1 tab DAILY PRN PO CONSTIPATION Last administered on 01/21/19 18:46; Admin Dose 1 TAB; Start 01/12/19 at 18:30 Docusate Sodium (Colace) 100 mg BID PRN PO CONSTIPATION Last administered on 01/21/19 18:46; Admin Dose 100 MG; Start 01/12/19 at 18:30 Neomycin/ Polymyxin/ Bacitracin (Neosporin Topical Oint) 1 applic DAILY TOP Last administered on 01/22/19 08:26; Admin Dose 1 APPLIC; Start 01/12/19 at 18:30 Cyanocobalamin (Vitamin B12 Inj) 1,000 mcg DAILY IM Last administered on 01/22/19 08:28; Admin Dose 1,000 MCG; Start 01/16/19 at 09:00 Pantoprazole (Protonix Tab) 40 mg DAILY@06 PO Last administered on 01/22/19 05:29; Admin Dose 40 MG; Start 01/17/19 at 06:00 Metronidazole 100 ml @ 100 mls/hr Q8 IVPB Last administered on 01/22/19 13:35; Admin Dose 100 MLS/HR; Start 01/16/19 at 22:00 Cefepime HCl 50 ml @ 100 mls/hr Q12 IVPB Last administered on 01/22/19 08:41; Admin Dose 100 MLS/HR; Start 01/17/19 at 21:00 Oxycodone HCl (Oxycontin) 10 mg BID PO Last administered on 01/22/19at 08:25; Admin Dose 10 MG; Start 01/18/19 at 15:00 Furosemide (Lasix) 20 mg BID DIURETICS IV Last administered on 01/22/19at 06:55; Admin Dose 20 MG; Start 01/21/19 at 18:30 Ferric Sodium Gluconate Complex 125 mg/Sodium Chloride 110 ml @ 110 mls/hr DAILY@1300 IVPB Last administered on 01/22/19at 12:15; Admin Dose 110 MLS/HR; Start 01/22/19 at 13:00; Stop 01/26/19 at 13:59 Hydromorphone HCl (Dilaudid) 0.5 mg Q4H PRN IV SEVERE PAIN LEVEL 7-10 Last administered on 01/22/19at 13:33; Admin Dose 0.5 MG; Start 01/22/19 at 13:00 Vancomycin HCl 250 ml @ 125 mls/hr Q12H IVPB Last administered on 01/22/19at 15:59; Admin Dose 125 MLS/HR; Start 01/22/19 at 16:00 Meds reviewed: Yes Allergies Coded Allergies: No Known Allergy (Unverified , 01/09/19) Allergies Reviewed: Yes Labs/Studies Labs Reviewed: Reviewed by anesthesiologist Result Diagram: 01/21/1961401/21/19614 test: N/A Studies: ECG, CXR, 2D Echo (EF 25%) Pre-procedure Exam Last vitals Vital Signs Date Temp Pulse Resp B/P (MAP) Pulse Ox O2 O2 Flow FiO2 Time Delivery Rate 01/22/19 79 16:24 01/22/19 98.1 19 89/55 (66) 96 15:04 Airway: Adequate mouth opening Mallampati: Mallampati II Teeth: Normal Lung: Normal Heart: Normal ASA Physical Status ASA physical status: 4 Emergency: None Planned Anesthetic General/MAC: MAC Pre-operative Attestations Prior to commencing anesthesia and surgery, the patient was re-evaluated, there was verification of: *The patient's identity *The results of appropriate recent lab work and preoperative vital signs *The above evaluation not changing prior to induction *Anesthetic plan, risk benefits, alternative and complications discussed with patient/family; questions answered; patient/family understands, accepts and wishes to proceed. MATHEW FORREST January 22, 2019 17:43
--- NOTE | 2019-01-22 18:42 | CONS ---
Assessment/Plan Assessment/Plan Hospital Course (Demo Recall) - polymicrobial infection of non-healing ulcer of R heel. CT on 01/10/2019 did not show evidence of OM. ESR 26 on 01/09/2019 and 37 on 01/12/2019; superficial wound cx Pseudomonas, E. Coli, Enterococcus (isolated from broth only), scant Proteus, and scant CoNS - s/p Debridement of the right calcaneal ulceration 01/13/2019; intraop cx grew E. Coli, Proteus, and Enterococcus - chronic wound of R heel, in the past the wound culture grew E. coli - h/o OM of R foot, h/o 6 weeks of IV vancomycin and ceftriaxone in 2018. Pt remembers it was a "Staph infection." - trauma to R knee - anemia requiring PRBC - PAF - CAD s/p CABG - HTN - CM with EF 25% - h/o AICD placement - PVD - h/o aortogram, RLE runoff and percutaneous angioplasty of the posterior tibial artery and the anterior tibial artery in 10/2018 - DM - Hgb A1c 7.6% - HLD associated with DM Recommendations: - Continue Cefepime (restart 01/17/2019-) for Pseudomonas, E. Coli and Proteus. [employer] Garo spoke with [facility] who confirmed sensis of Cefepime to E. Coli and Proteus. E.coli is resistant to Amp-sulbactam - Continue IV vancomycin (01/11/2019-) - Continue Flagyl IV (01/16/19 -) - Consider PICC line - Will likely require 4-6 weeks abx Above plan d/w via [employer] system Consultation Date/Type/Reason Admit Date/Time January 09, 2019 at 18:17 Initial Consult Date 01/10/19 Requesting Provider: KRISTIN PRYOR MD Date/Time of Note DATE: 01/22/19 TIME: 18:42 24 HR Interval Summary Free Text/Dictation Pt has remained afebrile and asymptomatic. Plan for EGD tomorrow. Constitutional: no complaints Detailed Summary Eyes: no complaints ENT: no complaints Respiratory: no complaints Gastrointestinal: no complaints Genitourinary: no complaints Musculoskeletal: other (r foot pain controlled with dilaudid per pt ) Skin: no complaints Neurologic: no complaints Endocrine: no complaints Psychological: no complaints Exam/Review of Systems Exam Vitals Vital Signs Date Temp Pulse Resp B/P (MAP) Pulse Ox O2 O2 Flow FiO2 Time Delivery Rate 01/22/19 94/54 (67) 17:30 01/22/19 79 16:24 01/22/19 98.1 19 96 15:04 Intake and Output 01/21/19 01/21/19 01/22/19 1414:59 22:59 06:59 IntakeIntake Total 1000 ml 750 ml OutputOutput Total 1500 ml 1400 ml BalanceBalance -500 ml -650 ml Constitutional: alert, oriented, well developed, obese; No distress Psych: nl mood/affect Head: normocephalic Eyes: EOMI, PERRL ENMT: mucosa pink and moist Neck: supple Respiratory: clear to auscultation, normal air movement; No congested cough, No crackles/rales Cardiovascular: regular rate and rhythm, edema (+1 BLE) Gastrointestinal: soft, non-tender, bowel sounds (normoactive); No rebound or guarding Extremities: No cyanosis, No clubbing 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: nl speech, nl strength Skin: other (right foot wound wrapped in kerlix and bandage) Results Result Diagram: 01/21/1915 01/21/19 0615 Results 24hrs Laboratory Tests Test 01/21/19 20:40 01/22/19 02:29 01/22/19 08:09 01/22/19 12:15 Bedside Glucose 174 172 143 137 Test 01/22/19 17:38 Bedside Glucose 211 Medications Medication Current Medications Amiodarone HCl (Cordarone) 200 mg DAILY PO Last administered on 01/22/19at 08:25; Admin Dose 200 MG; Start 01/10/19 at 09:00 Digoxin (Digoxin) 0.125 mg DAILY@1300 PO Last administered on 01/22/19at 12:23; Admin Dose 0.125 MG; Start 01/10/19 at 13:00 Gabapentin (Neurontin) 600 mg DAILY PO Last administered on 01/21/19at 08:33; A dmin Dose 600 MG; Start 01/10/19 at 09:00 Empaglifozin (Jardiance) 25 mg DAILY PO Last administered on 01/22/19at 08:24; Admin Dose 25 MG; Start 01/10/19 at 09:00 Linagliptin (Tradjenta) 5 mg DAILY PO Last administered on 01/22/19 08:24; Admin Dose 5 MG; Start 01/10/19 at 09:00 Diagnostic Test (Pha) (Accu-Chek) 1 ea AC MEALS AND BEDTIME XX Last administered on 01/22/19at 17:40; Admin Dose 1 EA; Start 01/09/19 at 21:00 Acetaminophen (Tylenol Tab) 650 mg Q4H PRN PO MILD PAIN(1-3)OR ELEVATED TEMP; Start 01/09/19 at 20:30 Ondansetron HCl (Zofran Inj) 4 mg Q6H PRN IV NAUSEA AND/OR VOMITING Last adm inistered on 01/14/19 19:59; Admin Dose 4 MG; Start 01/09/19 at 20:30 Diagnostic Test (Pha) (Accu-Chek) 1 ea 02 XX Last administered on 01/22/19 02:00; Admin Dose 1 EA; Start 01/10/19 at 02:00 Insulin Aspart (Novolog Insulin Pen) NOVOLOG *MILD* ALGORITHM WITH MEALS BEDTIME SC Last administered on 01/22/19 18:02; Admin Dose 2 UNIT; Start 01/09/19 at 22:30 Miscellaneous Information 1 ea NOTE XX ; Start 01/09/19 at 21:30 Glucose (Glutose) 15 gm Q15M PRN PO DECREASED GLUCOSE; Start 01/09/19 at 21:30 Glucose (Glutose) 22.5 gm Q15M PRN PO DECREASED GLUCOSE; Start 01/09/19 at 21:30 Dextrose (D50w Syringe) 25 ml Q15M PRN IV DECREASED GLUCOSE; Start 01/09/19 at 21:30 Dextrose (D50w Syringe) 50 ml Q15M PRN IV DECREASED GLUCOSE; Start 01/09/19 at 21:30 Glucagon (Glucagen) 1 mg Q15M PRN IM DECREASED GLUCOSE; Start 01/09/19 at 21:30 Glucose (Glutose) 15 gm Q15M PRN BUCCAL DECREASED GLUCOSE; Start 01/09/19 at 21:30 Insulin Glargine (Lantus) 18 units QHS SC Last administered on 01/21/19at 20:53; Admin Dose 18 UNITS; Start 01/09/19 at 22:30 Carvedilol (Coreg) 3.125 mg BID PO Last administered on 01/20/19 20:46; Admin Dose 3.125 MG; Start 01/10/19 at 21:00 Vancomycin HCl (Vanco Iv Per Pharmacy) VANCOMYCIN PER PHARMACY PER PROTOCOL XX ; Start 01/11/19 at 02:30 Lisinopril (Zestril) 2.5 mg DAILY PO Last administered on 01/18/19 08:22; Admin Dose 2.5 MG; Start 01/13/19 at 09:00 Senna (Senokot) 1 tab DAILY PRN PO CONSTIPATION Last administered on 01/21/19 18:46; Admin Dose 1 TAB; Start 01/12/19 at 18:30 Docusate Sodium (Colace) 100 mg BID PRN PO CONSTIPATION Last administered on 01/21/19 18:46; Admin Dose 100 MG; Start 01/12/19 at 18:30 Neomycin/ Polymyxin/ Bacitracin (Neosporin Topical Oint) 1 applic DAILY TOP Last administered on 01/22/19 08:26; Admin Dose 1 APPLIC; Start 01/12/19 at 1 8:30 Cyanocobalamin (Vitamin B12 Inj) 1,000 mcg DAILY IM Last administered on 01/22/19 08:28; Admin Dose 1,000 MCG; Start 01/16/19 at 09:00 Pantoprazole (Protonix Tab) 40 mg DAILY@06 PO Last administered on 01/22/19 05:29; Admin Dose 40 MG; Start 01/17/19 at 06:00 Metronidazole 100 ml @ 100 mls/hr Q8 IVPB Last administered on 01/22/19 13:35; Admin Dose 100 MLS/HR; Start 01/16/19 at 22:00 Cefepime HCl 50 ml @ 100 mls/hr Q12 IVPB Last administered on 01/22/19 08:41; Admin Dose 100 MLS/HR; Start 01/17/19 at 21:00 Oxycodone HCl (Oxycontin) 10 mg BID PO Last administered on 01/22/19 08:25; Admin Dose 10 MG; Start 01/18/19 at 15:00 Furosemide (Lasix) 20 mg BID DIURETICS IV Last administered on 01/22/19 06:55; Admin Dose 20 MG; Start 01/21/19 at 18:30 Ferric Sodium Gluconate Complex 125 mg/Sodium Chloride 110 ml @ 110 mls/hr DAILY@1300 IVPB Last administered on 01/22/19at 12:15; Admin Dose 110 MLS/HR; Start 01/22/19 at 13:00; Stop 01/26/19 at 13:59 Hydromorphone HCl (Dilaudid) 0.5 mg Q4H PRN IV SEVERE PAIN LEVEL 7-10 Last administered on 01/22/19at 13:33; Admin Dose 0.5 MG; Start 01/22/19 at 13:00 Vancomycin HCl 250 ml @ 125 mls/hr Q12H IVPB Last administered on 01/22/19at 15:59; Admin Dose 125 MLS/HR; Start 01/22/19 at 16:00 BLANCO MAR NP January 22, 2019 18:42
[2019-01-22] MEDS: INSULIN GLARGINE [LANTus] (100 UNITS/ML) SYG SC SCH (20:33)
[2019-01-23] VITALS (12 sets, daily range): BP systolic 92–110; BP diastolic 51–65; PULSE 62–94; RESP 11–20
[2019-01-23] MEDS: ACCU-CHEK XX SCH ×5 (01:53→21:08)
[2019-01-23] MEDS: HYDROmorphONE 0.5 MG/0.5 ML SYG IV PRN ×4 (01:58→20:57)
[2019-01-23] MEDS: VANCOMYCIN 1 GM 250 ML IVPB SCH ×2 (04:22→16:15)
[2019-01-23] MEDS: FUROSEMIDE 20 MG INJ IV SCH ×2 (06:00→17:43)
[2019-01-23] MEDS: PANTOPRAZOLE (EC) 40 MG TAB PO SCH (06:00)
[2019-01-23] MEDS: metroNIDAZOLE 500 MG/NS (PMX) 100 ML IVPB SCH ×3 (06:21→21:08)
[2019-01-23] MEDS ORDERED: PROPOFOL 200 MG INJ ONE (07:00)
[2019-01-23] MEDS ORDERED: ETOMIDATE 20 MG INJ ONE (07:00)
[2019-01-23] MEDS ORDERED: LIDOCAINE 2% (SDV) 5 ML INJ ONE (07:00)
[2019-01-23] MEDS: INSULIN ASPART [NOVOLOG] 3 ML PEN SC SCH ×4 (07:55→21:00)
[2019-01-23] MEDS: CYANOCOBALAMIN 1000 MCG INJ IM SCH (08:37)
[2019-01-23] MEDS: LINAGLIPTIN 5 MG TABLET PO SCH (08:38)
[2019-01-23] MEDS: AMIODARONE 200 MG TAB PO SCH (08:38)
[2019-01-23] MEDS: EMPAGLIFLOZIN 10 MG TABLET PO SCH (08:38)
[2019-01-23] MEDS: GABAPENTIN 300 MG CAP PO SCH (08:38)
[2019-01-23] MEDS: LISINOPRIL 5 MG TAB PO SCH (08:39)
[2019-01-23] MEDS: oxyCODONE (CR) 10 MG TAB [oxyCONTIN] PO SCH ×2 (08:41→21:00)
[2019-01-23] MEDS: NEOMYC/POLYMYX/BACIT 30 GM OINT TOP SCH (08:42)
[2019-01-23] MEDS: CEFEPIME 2GM/50 ML (PMX) 50 ML IVPB SCH ×2 (08:42→21:19)
--- NOTE | 2019-01-23 11:06 | PN ---
Date/Time of Note Date/Time of Note DATE: 01/23/19 TIME: 10:58 Assessment/Plan VTE [place] [facility] [place]: 7 [place] [facility] [place] SCD contraindicated: other Pharmacological prophylaxis: other Pharm contraindication: other Lines/Catheters IV C[facility]ter Type [facility]from [facility] Central Line Central line still needed: Yes Urinary Cath still in place: No Assessment/Plan Assessment/Plan -Gastric mass, plan for EGD today - . Continue PPI. Dr. Roberts is following in gastroenterology consultation. -New onset of anemia and hypotension requiring blood transfusion on 01/15/2019, stool for OB is negative. -Right heel necrotic wound. Dr. Mata is following in podiatry consultation. Status post debridement. Continue antibiotics per ID. Dr. Urbano is following in infection disease consultation. -Chronic peripheral vascular disease, history of angioplasty x2. Dr. Sheppard is following in vascular surgery consultation. Plan for a right pop DP bypass which is on hold due to GI issues. -Coronary artery disease, status post coronary artery bypass graft. -Cardiomyopathy with ejection fraction of 25%. Continue Coreg. Dr. Foster is following in cardiology consultation. -Status post AICD. -Hx of Hypertension. -Diabetes hemoglobin A1c 7.6. Continue Lantus and NovoLog. -Right knee contusion and abrasion status post fall. Status post evaluation by Dr. Zelaya and orthopedic surgery. No signs of fracture or dystrophic dislocation. -Chronic low back pain with significant spondylolisthesis grade II at the level of L5 to S1. Further recommendations based on clinical course. Plan of care discussed with Dr. Mann. Result Diagram: 01/23/19 0534 01/23/19 0540 Results 24hrs Laboratory Tests Test 01/22/19 12:15 01/22/19 17:38 01/22/19 20:20 01/23/19 01:52 Bedside Glucose 137 211 205 128 Test 01/23/19 05:34 01/23/19 05:40 01/23/19 07:54 White Blood Count 7.3 Red Blood Count 2.88 L Hemoglobin 8.5 L Hematocrit 26.8 L Mean Corpuscular 93.1 Volume Mean Corpuscular 29.5 Hemoglobin Mean Corpuscular 31.7 L Hemoglobin Concent Red Cell 15.3 H Distribution Width Platelet Count 336 Mean Platelet Volume 10.7 H Immature 0.500 H Granulocytes % Neutrophils % 53.1 Lymphocytes % 30.8 Monocytes % 10.4 Eosinophils % 4.9 Basophils % 0.3 Nucleated Red Blood 0.0 Cells % Immature 0.040 H Granulocytes # Neutrophils # 3.9 Lymphocytes # 2.3 Monocytes # 0.8 Eosinophils # 0.4 Basophils # 0.0 Nucleated Red Blood 0.0 Cells # Sodium Level 140 Potassium Level 4.1 Chloride Level 102 Carbon Dioxide Level 30 Anion Gap 8 Blood Urea Nitrogen 18 Creatinine 0.61 Est Glomerular > 60 Filtrat Rate mL/min Glucose Level 108 Calcium Level 9.3 Bedside Glucose 127 Subjective 24 Hr Interval Summary Free Text/Dictation -nad - patient remains hemodynamically stable - plan for EGD today, Plavix on hold - Right foot pain is well controlled - No acute events overnight reported Eyes: no complaints ENT: no complaints Respiratory: no complaints Cardiovascular: no complaints Gastrointestinal: no complaints Genitourinary: no complaints Musculoskeletal: bone/joint pain, restricted range of motion Skin: other Psychological: nl mood/affect Exam/Review of Systems Exam Vitals Vital Signs Date Temp Pulse Resp B/P (MAP) Pulse Ox O2 O2 Flow FiO2 Time Delivery Rate 01/23/19 63 08:14 01/23/19 97.7 19 95/51 (66) 100 07:18 01/23/19 Room Air 04:00 Intake and Output 01/22/19 01/22/19 01/23/19 1515:00 23:00 07:00 IntakeIntake Total 260 ml 1100 ml 850 ml OutputOutput Total 1600 ml 800 ml BalanceBalance 260 ml -500 ml 50 ml Constitutional: alert, well developed, obese Psych: nl mood/affect Head: normocephalic Eyes: nl lids, nl sclera ENMT: nl external ears & nose Neck: non-tender Respiratory: clear to auscultation, other (s1s2) Cardiovascular: nl pulses Gastrointestinal: soft, non-tender Musculoskeletal: joint tenderness, range of motion Extremities: edema Skin: other (right foot ) Lymph: nontender Results Results 24hrs Laboratory Tests Test 01/22/19 12:15 01/22/19 17:38 01/22/19 20:20 01/23/19 01:52 Bedside Glucose 137 211 205 128 Test 01/23/19 05:34 01/23/19 05:40 01/23/19 07:54 White Blood Count 7.3 Red Blood Count 2.88 L Hemoglobin 8.5 L Hematocrit 26.8 L Mean Corpuscular 93.1 Volume Mean Corpuscular 29.5 Hemoglobin Mean Corpuscular 31.7 L Hemoglobin Concent Red Cell 15.3 H Distribution Width Platelet Count 336 Mean Platelet Volume 10.7 H Immature 0.500 H Granulocytes % Neutrophils % 53.1 Lymphocytes % 30.8 Monocytes % 10.4 Eosinophils % 4.9 Basophils % 0.3 Nucleated Red Blood 0.0 Cells % Immature 0.040 H Granulocytes # Neutrophils # 3.9 Lymphocytes # 2.3 Monocytes # 0.8 Eosinophils # 0.4 Basophils # 0.0 Nucleated Red Blood 0.0 Cells # Sodium Level 140 Potassium Level 4.1 Chloride Level 102 Carbon Dioxide Level 30 Anion Gap 8 Blood Urea Nitrogen 18 Creatinine 0.61 Est Glomerular > 60 Filtrat Rate mL/min Glucose Level 108 Calcium Level 9.3 Bedside Glucose 127 Medications Medication Current Medications Amiodarone HCl (Cordarone) 200 mg DAILY PO Last administered on 01/23/19 08:38; Admin Dose 200 MG; Start 01/10/19 at 09:00 Digoxin (Digoxin) 0.125 mg DAILY@1300 PO Last administered on 01/22/19 12:23; Admin Dose 0.125 MG; Start 01/10/19 at 13:00 Gabapentin (Neurontin) 600 mg DAILY PO Last administered on 01/21/19 08:33; Admin Dose 600 MG; Start 01/10/19 at 09:00 Empaglifozin (Jardiance) 25 mg DAILY PO Last administered on 01/22/19 08:24; Admin Dose 25 MG; Start 01/10/19 at 09:00 Linagliptin (Tradjenta) 5 mg DAILY PO Last administered on 01/22/19 08:24; Admin Dose 5 MG; Start 01/10/19 at 09:00 Diagnostic Test (Pha) (Accu-Chek) 1 ea AC MEALS AND BEDTIME XX Last administered on 01/23/19at 07:55; Admin Dose 1 EA; Start 01/09/19 at 21:00 Acetaminophen (Tylenol Tab) 650 mg Q4H PRN PO MILD PAIN(1-3)OR ELEVATED TEMP; Start 01/09/19 at 20:30 Ondansetron HCl (Zofran Inj) 4 mg Q6H PRN IV NAUSEA AND/OR VOMITING Last administered on 01/14/19 19:59; Admin Dose 4 MG; Start 01/09/19 at 20:30 Diagnostic Test (Pha) (Accu-Chek) 1 ea 02 XX Last administered on 01/23/19 01:53; Admin Dose 1 EA; Start 01/10/19 at 02:00 Insulin Aspart (Novolog Insulin Pen) NOVOLOG *MILD* ALGORITHM WITH MEALS BEDTIME SC Last administered on 01/22/19 20:33; Admin Dose 1 UNIT; Start 01/09/19 at 22:30 Miscellaneous Information 1 ea NOTE XX ; Start 01/09/19 at 21:30 Glucose (Glutose) 15 gm Q15M PRN PO DECREASED GLUCOSE; Start 01/09/19 at 21:30 Glucose (Glutose) 22.5 gm Q15M PRN PO DECREASED GLUCOSE; Start 01/09/19 at 21:30 Dextrose (D50w Syringe) 25 ml Q15M PRN IV DECREASED GLUCOSE; Start 01/09/19 at 21:30 Dextrose (D50w Syringe) 50 ml Q15M PRN IV DECREASED GLUCOSE; Start 01/09/19 at 21:30 Glucagon (Glucagen) 1 mg Q15M PRN IM DECREASED GLUCOSE; Start 01/09/19 at 21:30 Glucose (Glutose) 15 gm Q15M PRN BUCCAL DECREASED GLUCOSE; Start 01/09/19 at 21:30 Insulin Glargine (Lantus) 18 units QHS SC Last administered on 01/22/19 20:33; Admin Dose 18 UNITS; Start 01/09/19 at 22:30 Carvedilol (Coreg) 3.125 mg BID PO Last administered on 01/20/19 20:46; Admin Dose 3.125 MG; Start 01/10/19 at 21:00 Vancomycin HCl (Vanco Iv Per Pharmacy) VANCOMYCIN PER PHARMACY PER PROTOCOL XX ; Start 01/11/19 at 02:30 Lisinopril (Zestril) 2.5 mg DAILY PO Last administered on 01/18/19 08:22; Admin Dose 2.5 MG; Start 01/13/19 at 09:00 Senna (Senokot) 1 tab DAILY PRN PO CONSTIPATION Last administered on 01/21/19 18:46; Admin Dose 1 TAB; Start 01/12/19 at 18:30 Docusate Sodium (Colace) 100 mg BID PRN PO CONSTIPATION Last administered on 01/21/19 18:46; Admin Dose 100 MG; Start 01/12/19 at 18:30 Neomycin/ Polymyxin/ Bacitracin (Neosporin Topical Oint) 1 applic DAILY TOP Last administered on 01/23/19 08:42; Admin Dose 1 APPLIC; Start 01/12/19 at 18:30 Cyanocobalamin (Vitamin B12 Inj) 1,000 mcg DAILY IM Last administered on 01/23/19 08:37; Admin Dose 1,000 MCG; Start 01/16/19 at 09:00 Pantoprazole (Protonix Tab) 40 mg DAILY@06 PO Last administered on 01/22/19 05:29; Admin Dose 40 MG; Start 01/17/19 at 06:00 Metronidazole 100 ml @ 100 mls/hr Q8 IVPB Last administered on 01/23/19 06:21; Admin Dose 100 MLS/HR; Start 01/16/19 at 22:00 Cefepime HCl 50 ml @ 100 mls/hr Q12 IVPB Last administered on 01/23/19 08:42; Admin Dose 100 MLS/HR; Start 01/17/19 at 21:00 Oxycodone HCl (Oxycontin) 10 mg BID PO Last administered on 01/23/19 08:41; Admin Dose 10 MG; Start 01/18/19 at 15:00 Furosemide (Lasix) 20 mg BID DIURETICS IV Last administered on 01/22/19 06:55; Admin Dose 20 MG; Start 01/21/19 at 18:30 Ferric Sodium Gluconate Complex 125 mg/Sodium Chloride 110 ml @ 110 mls/hr DAILY@1300 IVPB Last administered on 01/22/19 12:15; Admin Dose 110 MLS/HR; Start 01/22/19 at 13:00; Stop 01/26/19 at 13:59 Hydromorphone HCl (Dilaudid) 0.5 mg Q4H PRN IV SEVERE PAIN LEVEL 7-10 Last administered on 01/23/19 06:21; Admin Dose 0.5 MG; Start 01/22/19 at 13:00 Vancomycin HCl 250 ml @ 125 mls/hr Q12H IVPB Last administered on 01/23/19at 04:22; Admin Dose 125 MLS/HR; Start 01/22/19 at 16:00 MARTINE PUENTES January 23, 2019 11:05
--- NOTE | 2019-01-23 11:59 | PAC ---
Date/Time of Note Date/Time of Note DATE: 01/23/19 TIME: 11:59 Post-Anesthesia Notes Post-Anesthesia Note Last documented vital signs Vital Signs Date Temp Pulse Resp B/P (MAP) Pulse Ox O2 O2 Flow FiO2 Time Delivery Rate 01/23/19 Simple 10 11:40 Mask 01/23/19 98.2 79 19 102/56 96 11:19 (71) Activity: WNL Respiratory function: WNL Cardiovascular function: WNL Mental status: Baseline Pain reasonably controlled: Yes Hydration appropriate: Yes Nausea/Vomiting absent: Yes MATHEW FORREST January 23, 2019 11:59
[2019-01-23] MEDS ORDERED: hydrALAzine 20 MG INJ IV PRN (12:00)
[2019-01-23] MEDS ORDERED: LABETALOL HCL 20MG INJ IV PRN (12:00)
[2019-01-23] MEDS ORDERED: FENTAnyl 50 MCG/ML VIAL IV PRN ×2 (12:30)
[2019-01-23] MEDS: DIGOXIN 0.125 MG TAB PO SCH (13:31)
[2019-01-23] MEDS: DOCUSATE SODIUM 100 MG CAP PO PRN (13:31)
[2019-01-23] MEDS: SENNA TAB PO PRN (13:31)
[2019-01-23] MEDS: SOD FERRIC GLUC COMPLX 125 MG in SOD CHLORIDE 0.9% 100 ML IVPB SCH (13:33)
--- NOTE | 2019-01-23 13:34 | CONS ---
Assessment/Plan Assessment/Plan Hospital Course (Demo Recall) IMP: 1.Pre-op for peripheral bypass surgery. Lexiscan with no ischemia/+scar EF 28%. Echo EF 25%. OK to proceed to surgery at moderate CV risk 2.Cardiomyopathy with low EF-severely depressed by echo this admit 3.HTN 4.HL 5.Non-healing LE ulcer 6.PAD-severe s/p prior SHAPE CARVER 7.DM 8. 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 resume -Continue abx's and f/u cx data -Follow volume status closely and continue lasix diuresis as patient will comply -local wound care -pnding LE bypass when patient stable -transfuse PRBC's as necessary Consultation Date/Type/Reason Admit Date/Time January 09, 2019 at 18:17 Initial Consult Date 01/10/19 Type of Consult Cardiology Reason for Consultation Preop Requesting Provider: KRISTIN PRYOR MD Date/Time of Note DATE: 01/23/19 TIME: 13:31 Exam/Review of Systems Vital Signs Vitals Vital Signs Date Temp Pulse Resp B/P (MAP) Pulse Ox O2 O2 Flow FiO2 Time Delivery Rate 01/23/19 94 12:08 01/23/19 97.0 11 106/57 100 Room Air 11:49 (73) 01/23/19 10 11:40 Intake and Output 01/22/19 01/22/19 01/23/19 1515:00 23:00 07:00 IntakeIntake Total 260 ml 1100 ml 850 ml OutputOutput Total 1600 ml 800 ml BalanceBalance 260 ml -500 ml 50 ml Exam Exam Review of Systems: CONSTITUTIONAL: No fevers, chills. PULMONARY: No sob CARDIOVASCULAR: No chest pain/palpitations GASTROINTESTINAL: No nausea/vomiting. GENITOURINARY: No hematuria/dysuria. MUSCULOSKELETAL: No myagias/arthalgias. PSYCHIATRIC: The patient denies depression. NEUROLOGIC: No weakness Constitutional: alert Psych: no complaints Head: normocephalic ENMT: mucosa pink and moist Neck: supple, jvd (9 cm water) Respiratory: diminished breath sounds Cardiovascular: regular rate and rhythm Gastrointestinal: soft, non-tender Musculoskeletal: muscle tone (normal) Extremities: pitting pedal edema (BIlateral) Labs Result Diagram: 01/23/19 0534 01/23/19 0540 Results 24hrs Laboratory Tests Test 01/22/19 17:38 01/22/19 20:20 01/23/19 01:52 01/23/19 05:34 Bedside Glucose 211 205 128 White Blood Count 7.3 Red Blood Count 2.88 L Hemoglobin 8.5 L Hematocrit 26.8 L Mean Corpuscular 93.1 Volume Mean Corpuscular 29.5 Hemoglobin Mean Corpuscular 31.7 L Hemoglobin Concent Red Cell 15.3 H Distribution Width Platelet Count 336 Mean Platelet Volume 10.7 H Immature 0.500 H Granulocytes % Neutrophils % 53.1 Lymphocytes % 30.8 Monocytes % 10.4 Eosinophils % 4.9 Basophils % 0.3 Nucleated Red Blood 0.0 Cells % Immature 0.040 H Granulocytes # Neutrophils # 3.9 Lymphocytes # 2.3 Monocytes # 0.8 Eosinophils # 0.4 Basophils # 0.0 Nucleated Red Blood 0.0 Cells # Test 01/23/19 05:40 01/23/19 07:54 Sodium Level 140 Potassium Level 4.1 Chloride Level 102 Carbon Dioxide Level 30 Anion Gap 8 Blood Urea Nitrogen 18 Creatinine 0.61 Est Glomerular > 60 Filtrat Rate mL/min Glucose Level 108 Calcium Level 9.3 Bedside Glucose 127 Medications Medications Current Medications Amiodarone HCl (Cordarone) 200 mg DAILY PO Last administered on 01/23/19at 08:38; Admin Dose 200 MG; Start 01/10/19 at 09:00 Digoxin (Digoxin) 0.125 mg DAILY@1300 PO Last administered on 01/22/19at 12:23; Admin Dose 0.125 MG; Start 01/10/19 at 13:00 Gabapentin (Neurontin) 600 mg DAILY PO Last administered on 01/21/19at 08:33; Admin Dose 600 MG; Start 01/10/19 at 09:00 Empaglifozin (Jardiance) 25 mg DAILY PO Last administered on 01/22/19at 08:24; Admin Dose 25 MG; Start 01/10/19 at 09:00 Linagliptin (Tradjenta) 5 mg DAILY PO Last administered on 01/22/19at 08:24; Admin Dose 5 MG; Start 01/10/19 at 09:00 Diagnostic Test (Pha) (Accu-Chek) 1 ea AC MEALS AND BEDTIME XX Last administered on 01/23/19 07:55; Admin Dose 1 EA; Start 01/09/19 at 21:00 Acetaminophen (Tylenol Tab) 650 mg Q4H PRN PO MILD PAIN(1-3)OR ELEVATED TEMP; Start 01/09/19 at 20:30 Ondansetron HCl (Zofran Inj) 4 mg Q6H PRN IV NAUSEA AND/OR VOMITING Last administered on 01/14/19 19:59; Admin Dose 4 MG; Start 01/09/19 at 20:30 Diagnostic Test (Pha) (Accu-Chek) 1 ea 02 XX Last administered on 01/23/19 01:53; Admin Dose 1 EA; Start 01/10/19 at 02:00 Insulin Aspart (Novolog Insulin Pen) NOVOLOG *MILD* ALGORITHM WITH MEALS BEDTIME SC Last administered on 01/22/19 20:33; Admin Dose 1 UNIT; Start 01/09/19 at 22:30 Miscellaneous Information 1 ea NOTE XX ; Start 01/09/19 at 21:30 Glucose (Glutose) 15 gm Q15M PRN PO DECREASED GLUCOSE; Start 01/09/19 at 21:30 Glucose (Glutose) 22.5 gm Q15M PRN PO DECREASED GLUCOSE; Start 01/09/19 at 21:30 Dextrose (D50w Syringe) 25 ml Q15M PRN IV DECREASED GLUCOSE; Start 01/09/19 at 21:30 Dextrose (D50w Syringe) 50 ml Q15M PRN IV DECREASED GLUCOSE; Start 01/09/19 at 21:30 Glucagon (Glucagen) 1 mg Q15M PRN IM DECREASED GLUCOSE; Start 01/09/19 at 21:30 Glucose (Glutose) 15 gm Q15M PRN BUCCAL DECREASED GLUCOSE; Start 01/09/19 at 21:30 Insulin Glargine (Lantus) 18 units QHS SC Last administered on 01/22/19 20:33; Admin Dose 18 UNITS; Start 01/09/19 at 22:30 Carvedilol (Coreg) 3.125 mg BID PO Last administered on 01/20/19at 20:46; Admin Dose 3.125 MG; Start 01/10/19 at 21:00 Vancomycin HCl (Vanco Iv Per Pharmacy) VANCOMYCIN PER PHARMACY PER PROTOCOL XX ; Start 01/11/19 at 02:30 Lisinopril (Zestril) 2.5 mg DAILY PO Last administered on 01/18/19 08:22; Admin Dose 2.5 MG; Start 01/13/19 at 09:00 Senna (Senokot) 1 tab DAILY PRN PO CONSTIPATION Last administered on 01/21/19 18:46; Admin Dose 1 TAB; Start 01/12/19 at 18:30 Docusate Sodium (Colace) 100 mg BID PRN PO CONSTIPATION Last administered on 01/21/19 18:46; Admin Dose 100 MG; Start 01/12/19 at 18:30 Neomycin/ Polymyxin/ Bacitracin (Neosporin Topical Oint) 1 applic DAILY TOP Last administered on 01/23/19 08:42; Admin Dose 1 APPLIC; Start 01/12/19 at 18:30 Cyanocobalamin (Vitamin B12 Inj) 1,000 mcg DAILY IM Last administered on 01/23/19 08:37; Admin Dose 1,000 MCG; Start 01/16/19 at 09:00 Pantoprazole (Protonix Tab) 40 mg DAILY@06 PO Last administered on 01/22/19 05:29; Admin Dose 40 MG; Start 01/17/19 at 06:00 Metronidazole 100 ml @ 100 mls/hr Q8 IVPB Last administered on 01/23/19 06:21; Admin Dose 100 MLS/HR; Start 01/16/19 at 22:00 Cefepime HCl 50 ml @ 100 mls/hr Q12 IVPB Last administered on 01/23/19 08:42; Admin Dose 100 MLS/HR; Start 01/17/19 at 21:00 Oxycodone HCl (Oxycontin) 10 mg BID PO Last administered on 01/23/19 08:41; Admin Dose 10 MG; Start 01/18/19 at 15:00 Furosemide (Lasix) 20 mg BID DIURETICS IV Last administered on 01/22/19 06:55; Admin Dose 20 MG; Start 01/21/19 at 18:30 Ferric Sodium Gluconate Complex 125 mg/Sodium Chloride 110 ml @ 110 mls/hr DAILY@1300 IVPB Last administered on 01/22/19 12:15; Admin Dose 110 MLS/HR; Start 01/22/19 at 13:00; Stop 01/26/19 at 13:59 Hydromorphone HCl (Dilaudid) 0.5 mg Q4H PRN IV SEVERE PAIN LEVEL 7-10 Last administered on 01/23/19at 06:21; Admin Dose 0.5 MG; Start 01/22/19 at 13:00 Vancomycin HCl 250 ml @ 125 mls/hr Q12H IVPB Last administered on 01/23/19at 04:22; Admin Dose 125 MLS/HR; Start 01/22/19 at 16:00 Labetalol HCl (Labetalol) 5 mg PACU ORDER PRN IV HIGH BLOOD PRESSURE; Start 01/23/19 at 12:00; Stop 01/23/19 at 16:00 Hydralazine HCl (Apresoline) 5 mg PACU ORDER PRN IV HIGH BLOOD PRESSURE; Start 01/23/19 at 12:00; Stop 01/23/19 at 16:00 Miscellaneous Information (*Rx Drug Level Order Reminder*) VANCOMYCIN TROUGH AT 1500 ONCE ONCE XX ; Start 01/24/19 at 15:00; Stop 01/24/19 at 15:01 Fentanyl (Sublimaze) 25 mcg PACU ORDER PRN IV MILD PAIN 1-3 Last administered on 01/23/19at 12:40; Admin Dose 25 MCG; Start 01/23/19 at 12:30; Stop 01/23/19 at 16:30 Fentanyl (Sublimaze) 50 mcg PACU ORDER PRN IV MOD PAIN 4-6; Start 01/23/19 at 12:30; Stop 01/23/19 at 16:30 VERO ARELLANO January 23, 2019 13:34
--- NOTE | 2019-01-23 14:12 | CONS ---
Assessment/Plan Assessment/Plan Hospital Course (Demo Recall) - polymicrobial infection of non-healing ulcer of R heel. CT on 01/10/2019 did not show evidence of OM. ESR 26 on 01/09/2019 and 37 on 01/12/2019; superficial wound cx Pseudomonas, E. Coli, Enterococcus (isolated from broth only), scant Proteus, and scant CoNS - s/p Debridement of the right calcaneal ulceration 01/13/2019; intraop cx grew E. Coli, Proteus, and Enterococcus - chronic wound of R heel, in the past the wound culture grew E. coli - h/o OM of R foot, h/o 6 weeks of IV vancomycin and ceftriaxone in 2018. Pt remembers it was a "Staph infection." - trauma to R knee - anemia requiring PRBC - PAF - CAD s/p CABG - HTN - CM with EF 25% - h/o AICD placement - PVD - h/o aortogram, RLE runoff and percutaneous angioplasty of the posterior tibial artery and the anterior tibial artery in 10/2018 - DM - Hgb A1c 7.6% - HLD associated with DM Recommendations: - Continue Cefepime (restart 01/17/2019-) for Pseudomonas, E. Coli and Proteus. MANAGER AGENCY Garo spoke with [facility] who confirmed sensis of Cefepime to E. Coli and Proteus. E.coli is resistant to Amp-sulbactam - Continue IV vancomycin (01/11/2019-) - Continue Flagyl IV (01/16/19 -) - await EGD report - Will likely require 4-6 weeks abx Care directed to MANAGER AGENCY yesterday via [employer] Consultation Date/Type/Reason Admit Date/Time January 09, 2019 at 18:17 Initial Consult Date 01/10/19 Requesting Provider: KRISTIN PRYOR MD Date/Time of Note DATE: 01/23/19 TIME: 14:11 24 HR Interval Summary Free Text/Dictation s/p EGD Exam/Review of Systems Exam Vitals Vital Signs Date Temp Pulse Resp B/P (MAP) Pulse Ox O2 O2 Flow FiO2 Time Delivery Rate 01/23/19 94 12:08 01/23/19 97.0 11 106/57 100 Room Air 11:49 (73) 01/23/19 10 11:40 Intake and Output 01/22/19 01/22/19 01/23/19 1515:00 23:00 07:00 IntakeIntake Total 260 ml 1100 ml 850 ml OutputOutput Total 1600 ml 800 ml BalanceBalance 260 ml -500 ml 50 ml Constitutional: alert, oriented, well developed Psych: no complaints, nl mood/affect Head: normocephalic, atraumatic Eyes: nl conjunctiva, EOMI, nl lids, nl sclera, PERRL Results Result Diagram: 01/23/19 0534 01/23/19 0540 Results 24hrs Laboratory Tests Test 01/22/19 17:38 01/22/19 20:20 01/23/19 01:52 01/23/19 05:34 Bedside Glucose 211 205 128 White Blood Count 7.3 Red Blood Count 2.88 L Hemoglobin 8.5 L Hematocrit 26.8 L Mean Corpuscular 93.1 Volume Mean Corpuscular 29.5 Hemoglobin Mean Corpuscular 31.7 L Hemoglobin Concent Red Cell 15.3 H Distribution Width Platelet Count 336 Mean Platelet Volume 10.7 H Immature 0.500 H Granulocytes % Neutrophils % 53.1 Lymphocytes % 30.8 Monocytes % 10.4 Eosinophils % 4.9 Basophils % 0.3 Nucleated Red Blood 0.0 Cells % Immature 0.040 H Granulocytes # Neutrophils # 3.9 Lymphocytes # 2.3 Monocytes # 0.8 Eosinophils # 0.4 Basophils # 0.0 Nucleated Red Blood 0.0 Cells # Test 01/23/19 05:40 01/23/19 07:54 Sodium Level 140 Potassium Level 4.1 Chloride Level 102 Carbon Dioxide Level 30 Anion Gap 8 Blood Urea Nitrogen 18 Creatinine 0.61 Est Glomerular > 60 Filtrat Rate mL/min Glucose Level 108 Calcium Level 9.3 Bedside Glucose 127 Medications Medication Current Medications Amiodarone HCl (Cordarone) 200 mg DAILY PO Last administered on 01/23/19at 08:38; Admin Dose 200 MG; Start 01/10/19 at 09:00 Digoxin (Digoxin) 0.125 mg DAILY@1300 PO Last administered on 01/23/19at 13:31; Admin Dose 0.125 MG; Start 01/10/19 at 13:00 Gabapentin (Neurontin) 600 mg DAILY PO Last administered on 01/21/19at 08:33; Admin Dose 600 MG; Start 01/10/19 at 09:00 Empaglifozin (Jardiance) 25 mg DAILY PO Last administered on 01/22/19 08:24; Admin Dose 25 MG; Start 01/10/19 at 09:00 Linagliptin (Tradjenta) 5 mg DAILY PO Last administered on 01/22/19 08:24; Admin Dose 5 MG; Start 01/10/19 at 09:00 Diagnostic Test (Pha) (Accu-Chek) 1 ea AC MEALS AND BEDTIME XX Last admini stered on 01/23/19 07:55; Admin Dose 1 EA; Start 01/09/19 at 21:00 Acetaminophen (Tylenol Tab) 650 mg Q4H PRN PO MILD PAIN(1-3)OR ELEVATED TEMP; Start 01/09/19 at 20:30 Ondansetron HCl (Zofran Inj) 4 mg Q6H PRN IV NAUSEA AND/OR VOMITING Last administered on 01/14/19 19:59; Admin Dose 4 MG; Start 01/09/19 at 20:30 Diagnostic Test (Pha) (Accu-Chek) 1 ea 02 XX Last administered on 01/23/19 01:53; Admin Dose 1 EA; Start 01/10/19 at 02:00 Insulin Aspart (Novolog Insulin Pen) NOVOLOG *MILD* ALGORITHM WITH MEALS BEDTIME SC Last administered on 01/22/19 20:33; Admin Dose 1 UNIT; Start 01/09/19 at 22:30 Miscellaneous Information 1 ea NOTE XX ; Start 01/09/19 at 21:30 Glucose (Glutose) 15 gm Q15M PRN PO DECREASED GLUCOSE; Start 01/09/19 at 21:30 Glucose (Glutose) 22.5 gm Q15M PRN PO DECREASED GLUCOSE; Start 01/09/19 at 21:30 Dextrose (D50w Syringe) 25 ml Q15M PRN IV DECREASED GLUCOSE; Start 01/09/19 at 21:30 Dextrose (D50w Syringe) 50 ml Q15M PRN IV DECREASED GLUCOSE; Start 01/09/19 at 21:30 Glucagon (Glucagen) 1 mg Q15M PRN IM DECREASED GLUCOSE; Start 01/09/19 at 21:30 Glucose (Glutose) 15 gm Q15M PRN BUCCAL DECREASED GLUCOSE; Start 01/09/19 at 21:30 Insulin Glargine (Lantus) 18 units QHS SC Last administered on 01/22/19 20:33; Admin Dose 18 UNITS; Start 01/09/19 at 22:30 Carvedilol (Coreg) 3.125 mg BID PO Last administered on 01/20/19 20:46; Admin Dose 3.125 MG; Start 01/10/19 at 21:00 Vancomycin HCl (Vanco Iv Per Pharmacy) VANCOMYCIN PER PHARMACY PER PROTOCOL XX ; Start 01/11/19 at 02:30 Lisinopril (Zestril) 2.5 mg DAILY PO Last administered on 01/18/19 08:22; Admin Dose 2.5 MG; Start 01/13/19 at 09:00 Senna (Senokot) 1 tab DAILY PRN PO CONSTIPATION Last administered on 01/23/19 13:31; Admin Dose 1 TAB; Start 01/12/19 at 18:30 Docusate Sodium (Colace) 100 mg BID PRN PO CONSTIPATION Last administered on 01/23/19 13:31; Admin Dose 100 MG; Start 01/12/19 at 18:30 Neomycin/ Polymyxin/ Bacitracin (Neosporin Topical Oint) 1 applic DAILY TOP Last administered on 01/23/19 08:42; Admin Dose 1 APPLIC; Start 01/12/19 at 18:30 Cyanocobalamin (Vitamin B12 Inj) 1,000 mcg DAILY IM Last administered on 01/23/19 08:37; Admin Dose 1,000 MCG; Start 01/16/19 at 09:00 Pantoprazole (Protonix Tab) 40 mg DAILY@06 PO Last administered on 01/22/19 05:29; Admin Dose 40 MG; Start 01/17/19 at 06:00 Metronidazole 100 ml @ 100 mls/hr Q8 IVPB Last administered on 01/23/19 06:21; Admin Dose 100 MLS/HR; Start 01/16/19 at 22:00 Cefepime HCl 50 ml @ 100 mls/hr Q12 IVPB Last administered on 01/23/19 08:42; Admin Dose 100 MLS/HR; Start 01/17/19 at 21:00 Oxycodone HCl (Oxycontin) 10 mg BID PO Last administered on 01/23/19 08:41; Admin Dose 10 MG; Start 01/18/19 at 15:00 Furosemide (Lasix) 20 mg BID DIURETICS IV Last administered on 01/22/19at 06:55; Admin Dose 20 MG; Start 01/21/19 at 18:30 Ferric Sodium Gluconate Complex 125 mg/Sodium Chloride 110 ml @ 110 mls/hr DAILY@1300 IVPB Last administered on 01/23/19at 13:33; Admin Dose 110 MLS/HR; Start 01/22/19 at 13:00; Stop 01/26/19 at 13:59 Hydromorphone HCl (Dilaudid) 0.5 mg Q4H PRN IV SEVERE PAIN LEVEL 7-10 Last administered on 01/23/19at 13:58; Admin Dose 0.5 MG; Start 01/22/19 at 13:00 Vancomycin HCl 250 ml @ 125 mls/hr Q12H IVPB Last administered on 01/23/19at 04:22; Admin Dose 125 MLS/HR; Start 01/22/19 at 16:00 Labetalol HCl (Labetalol) 5 mg PACU ORDER PRN IV HIGH BLOOD PRESSURE; Start 01/23/19 at 12:00; Stop 01/23/19 at 16:00 Hydralazine HCl (Apresoline) 5 mg PACU ORDER PRN IV HIGH BLOOD PRESSURE; Start 01/23/19 at 12:00; Stop 01/23/19 at 16:00 Miscellaneous Information (*Rx Drug Level Order Reminder*) VANCOMYCIN TROUGH AT 1500 ONCE ONCE XX ; Start 01/24/19 at 15:00; Stop 01/24/19 at 15:01 Fentanyl (Sublimaze) 25 mcg PACU ORDER PRN IV MILD PAIN 1-3 Last administered on 01/23/19at 12:40; Admin Dose 25 MCG; Start 01/23/19 at 12:30; Stop 01/23/19 at 16:30 Fentanyl (Sublimaze) 50 mcg PACU ORDER PRN IV MOD PAIN 4-6; Start 01/23/19 at 12:30; Stop 01/23/19 at 16:30 DENITA WOMACK MD January 23, 2019 14:12
--- NOTE | 2019-01-23 14:45 | CONS ---
Assessment/Plan Assessment/Plan Hospital Course (Demo Recall) 63-year-old gentleman with history of coronary artery disease, status post CABG, also status post AICD placement, hypertension, diabetes, peripheral vascular disease, status post aortogram and right lower extremity runoff and percutaneous angioplasty of the posterior tibial artery and anterior tibial artery in 10/2018. Patient has a worsening RLE heel wound and thus admitted for sepsis. #Gastric mass -pt have this biopsied today -further recommendations will be based on biopsy report # Anemia-normocytic -Hg currently stable -likely 2/2 GI bleed -continue to hold all blood thinners -CT A/P does not reveal evidence of bleed -f/u endoscopy. pt was found with a T3.5 cm mass/filling defect arising along the lesser curvature of the stomach, -Transfuse to keep hgb > 7. Patient had a transfusion yesterday but did not respond appropriately. -Iron studies are normal but vitamin b12 is low and thus initiated vitamin b12 1000 mcg weekly, will continue d. Consultation Date/Type/Reason Admit Date/Time January 09, 2019 at 18:17 Initial Consult Date 01/16/19 Type of Consult hematology Reason for Consultation gastric mass Requesting Provider: KRISTIN PRYOR MD Date/Time of Note DATE: 01/23/19 TIME: 14:43 24 HR Interval Summary Free Text/Dictation no acute overnight events.continues on IV iron Exam/Review of Systems Exam Vitals Vital Signs Date Temp Pulse Resp B/P (MAP) Pulse Ox O2 O2 Flow FiO2 Time Delivery Rate 01/23/19 94 12:08 01/23/19 97.0 11 106/57 100 Room Air 11:49 (73) 01/23/19 10 11:40 Intake and Output 01/22/19 01/22/19 01/23/19 1515:00 23:00 07:00 IntakeIntake Total 260 ml 1100 ml 850 ml OutputOutput Total 1600 ml 800 ml BalanceBalance 260 ml -500 ml 50 ml Constitutional: alert, oriented Psych: no complaints Head: normocephalic Eyes: nl conjunctiva ENMT: nl external ears & nose Neck: supple Respiratory: clear to auscultation Cardiovascular: regular rate and rhythm Gastrointestinal: soft Musculoskeletal: nl extremities to inspection Results Result Diagram: 01/23/19 0534 01/23/19 0540 Results 24hrs Laboratory Tests Test 01/22/19 17:38 01/22/19 20:20 01/23/19 01:52 01/23/19 05:34 Bedside Glucose 211 205 128 White Blood Count 7.3 Red Blood Count 2.88 L Hemoglobin 8.5 L Hematocrit 26.8 L Mean Corpuscular 93.1 Volume Mean Corpuscular 29.5 Hemoglobin Mean Corpuscular 31.7 L Hemoglobin Concent Red Cell 15.3 H Distribution Width Platelet Count 336 Mean Platelet Volume 10.7 H Immature 0.500 H Granulocytes % Neutrophils % 53.1 Lymphocytes % 30.8 Monocytes % 10.4 Eosinophils % 4.9 Basophils % 0.3 Nucleated Red Blood 0.0 Cells % Immature 0.040 H Granulocytes # Neutrophils # 3.9 Lymphocytes # 2.3 Monocytes # 0.8 Eosinophils # 0.4 Basophils # 0.0 Nucleated Red Blood 0.0 Cells # Test 01/23/19 05:40 01/23/19 07:54 Sodium Level 140 Potassium Level 4.1 Chloride Level 102 Carbon Dioxide Level 30 Anion Gap 8 Blood Urea Nitrogen 18 Creatinine 0.61 Est Glomerular > 60 Filtrat Rate mL/min Glucose Level 108 Calcium Level 9.3 Bedside Glucose 127 Medications Medication Current Medications Amiodarone HCl (Cordarone) 200 mg DAILY PO Last administered on 01/23/19 08:38; Admin Dose 200 MG; Start 01/10/19 at 09:00 Digoxin (Digoxin) 0.125 mg DAILY@1300 PO Last administered on 01/23/19 13:31; Admin Dose 0.125 MG; Start 01/10/19 at 13:00 Gabapentin (Neurontin) 600 mg DAILY PO Last administered on 01/21/19 08:33; Admin Dose 600 MG; Start 01/10/19 at 09:00 Empaglifozin (Jardiance) 25 mg DAILY PO Last administered on 01/22/19 08:24; Admin Dose 25 MG; Start 01/10/19 at 09:00 Linagliptin (Tradjenta) 5 mg DAILY PO Last administered on 01/22/19 08:24; Admin Dose 5 MG; Start 01/10/19 at 09:00 Diagnostic Test (Pha) (Accu-Chek) 1 ea AC MEALS AND BEDTIME XX Last administered on 01/23/19at 07:55; Admin Dose 1 EA; Start 01/09/19 at 21:00 Acetaminophen (Tylenol Tab) 650 mg Q4H PRN PO MILD PAIN(1-3)OR ELEVATED TEMP; Start 01/09/19 at 20:30 Ondansetron HCl (Zofran Inj) 4 mg Q6H PRN IV NAUSEA AND/OR VOMITING Last administered on 01/14/19 19:59; Admin Dose 4 MG; Start 01/09/19 at 20:30 Diagnostic Test (Pha) (Accu-Chek) 1 ea 02 XX Last administered on 01/23/19at 01:53; Admin Dose 1 EA; Start 01/10/19 at 02:00 Insulin Aspart (Novolog Insulin Pen) NOVOLOG *MILD* ALGORITHM WITH MEALS BE DTIME SC Last administered on 01/22/19 20:33; Admin Dose 1 UNIT; Start 01/09/19 at 22:30 Miscellaneous Information 1 ea NOTE XX ; Start 01/09/19 at 21:30 Glucose (Glutose) 15 gm Q15M PRN PO DECREASED GLUCOSE; Start 01/09/19 at 21:30 Glucose (Glutose) 22.5 gm Q15M PRN PO DECREASED GLUCOSE; Start 01/09/19 at 21:30 Dextrose (D50w Syringe) 25 ml Q15M PRN IV DECREASED GLUCOSE; Start 01/09/19 at 21:30 Dextrose (D50w Syringe) 50 ml Q15M PRN IV DECREASED GLUCOSE; Start 01/09/19 at 21:30 Glucagon (Glucagen) 1 mg Q15M PRN IM DECREASED GLUCOSE; Start 01/09/19 at 21:30 Glucose (Glutose) 15 gm Q15M PRN BUCCAL DECREASED GLUCOSE; Start 01/09/19 at 21:30 Insulin Glargine (Lantus) 18 units QHS SC Last administered on 01/22/19 20:33; Admin Dose 18 UNITS; Start 01/09/19 at 22:30 Carvedilol (Coreg) 3.125 mg BID PO Last administered on 01/20/19at 20:46; Admin Dose 3.125 MG; Start 01/10/19 at 21:00 Vancomycin HCl (Vanco Iv Per Pharmacy) VANCOMYCIN PER PHARMACY PER PROTOCOL XX ; Start 01/11/19 at 02:30 Lisinopril (Zestril) 2.5 mg DAILY PO Last administered on 01/18/19 08:22; Admin Dose 2.5 MG; Start 01/13/19 at 09:00 Senna (Senokot) 1 tab DAILY PRN PO CONSTIPATION Last administered on 01/23/19 13:31; Admin Dose 1 TAB; Start 01/12/19 at 18:30 Docusate Sodium (Colace) 100 mg BID PRN PO CONSTIPATION Last administered on 01/23/19 13:31; Admin Dose 100 MG; Start 01/12/19 at 18:30 Neomycin/ Polymyxin/ Bacitracin (Neosporin Topical Oint) 1 applic DAILY TOP Last administered on 01/23/19 08:42; Admin Dose 1 APPLIC; Start 01/12/19 at 18:30 Cyanocobalamin (Vitamin B12 Inj) 1,000 mcg DAILY IM Last administered on 01/23/19 08:37; Admin Dose 1,000 MCG; Start 01/16/19 at 09:00 Pantoprazole (Protonix Tab) 40 mg DAILY@06 PO Last administered on 01/22/19 05:29; Admin Dose 40 MG; Start 01/17/19 at 06:00 Metronidazole 100 ml @ 100 mls/hr Q8 IVPB Last administered on 01/23/19 06:21; Admin Dose 100 MLS/HR; Start 01/16/19 at 22:00 Cefepime HCl 50 ml @ 100 mls/hr Q12 IVPB Last administered on 01/23/19 08:42; Admin Dose 100 MLS/HR; Start 01/17/19 at 21:00 Oxycodone HCl (Oxycontin) 10 mg BID PO Last administered on 01/23/19 08:41; Admin Dose 10 MG; Start 01/18/19 at 15:00 Furosemide (Lasix) 20 mg BID DIURETICS IV Last administered on 01/22/19 06:55; Admin Dose 20 MG; Start 01/21/19 at 18:30 Ferric Sodium Gluconate Complex 125 mg/Sodium Chloride 110 ml @ 110 mls/hr DAILY@1300 IVPB Last administered on 01/23/19 13:33; Admin Dose 110 MLS/HR; Start 01/22/19 at 13:00; Stop 01/26/19 at 13:59 Hydromorphone HCl (Dilaudid) 0.5 mg Q4H PRN IV SEVERE PAIN LEVEL 7-10 Last administered on 01/23/19at 13:58; Admin Dose 0.5 MG; Start 01/22/19 at 13:00 Vancomycin HCl 250 ml @ 125 mls/hr Q12H IVPB Last administered on 01/23/19at 04:22; Admin Dose 125 MLS/HR; Start 01/22/19 at 16:00 Labetalol HCl (Labetalol) 5 mg PACU ORDER PRN IV HIGH BLOOD PRESSURE; Start 01/23/19 at 12:00; Stop 01/23/19 at 16:00 Hydralazine HCl (Apresoline) 5 mg PACU ORDER PRN IV HIGH BLOOD PRESSURE; Start 01/23/19 at 12:00; Stop 01/23/19 at 16:00 Miscellaneous Information (*Rx Drug Level Order Reminder*) VANCOMYCIN TROUGH AT 1500 ONCE ONCE XX ; Start 01/24/19 at 15:00; Stop 01/24/19 at 15:01 Fentanyl (Sublimaze) 25 mcg PACU ORDER PRN IV MILD PAIN 1-3 Last administered on 01/23/19at 12:40; Admin Dose 25 MCG; Start 01/23/19 at 12:30; Stop 01/23/19 at 16:30 Fentanyl (Sublimaze) 50 mcg PACU ORDER PRN IV MOD PAIN 4-6; Start 01/23/19 at 12:30; Stop 01/23/19 at 16:30 TJ QUINTERO M.D. January 23, 2019 14:45
[2019-01-23] MEDS: INSULIN GLARGINE [LANTus] (100 UNITS/ML) SYG SC SCH (21:16)
[2019-01-24] VITALS (11 sets, daily range): BP systolic 92–109; BP diastolic 51–59; PULSE 60–89; RESP 18–19
[2019-01-24] MEDS: HYDROmorphONE 0.5 MG/0.5 ML SYG IV PRN ×3 (01:31→18:43)
[2019-01-24] MEDS: ACCU-CHEK XX SCH ×5 (02:00→21:00)
[2019-01-24] MEDS: VANCOMYCIN 1 GM 250 ML IVPB SCH ×2 (04:24→15:58)
[2019-01-24] MEDS: PANTOPRAZOLE (EC) 40 MG TAB PO SCH (06:48)
[2019-01-24] MEDS: FUROSEMIDE 20 MG INJ IV SCH ×2 (06:48→17:41)
[2019-01-24] MEDS: metroNIDAZOLE 500 MG/NS (PMX) 100 ML IVPB SCH ×3 (06:48→23:16)
[2019-01-24] MEDS: INSULIN ASPART [NOVOLOG] 3 ML PEN SC SCH ×4 (07:55→21:00)
--- NOTE | 2019-01-24 08:54 | CONS ---
Assessment/Plan Assessment/Plan Assessment/Plan (Daily) Assessment/Plan (Daily) Assessment/Plan Hospital Course (Demo Recall) 63 yo male with anemia 1. Right heel necrotic wound. 2. Cardiomyopathy with ejection fraction of 20% to 30%. 3. Peripheral vascular disease status post PCI, right lower extremity. 4. Coronary artery disease status post coronary artery bypass graft. 5. Status post automatic implantable cardioverter-defibrillator. 6. Hypertension. 7. Diabetes mellitus. 8. Anemia. Patient has a significant drop in hematocrit. So far, clinically, there is no evidence of obvious GI bleeding. 9. Ovoid mass or filling defect arising from lesser curvature of stomach. 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 Pt is pre op for peripheral artery bypass surgery which is on hold for now. CT of abd pelvis:IMPRESSION: 1. No acute intra-abdominal or pelvic abnormality including no evidence of intraperitoneal or retroperitoneal free fluid or hemorrhage seen. 2. There is an ovoid 3.5 cm mass/filling defect arising along the lesser curvature of the stomach, for which endoscopic evaluation is recommended. 3. No evidence of intestinal obstruction. Colonic diverticulosis without diverticulitis. Moderate colonic stool burden. 4. Advanced degenerative changes with chronic bilateral L5 pars defects, grade 2 anterolisthesis, along with associated central canal and foraminal stenosis at L5-S1. Plan Patient has GIST tumor and needs EUS with FNA to confirm the diagnosis. Patient will need surgery in the future to remove the tumor. In the interim he can go for his bypass surgery for the lower extremity. Continue PPI Continue diet as tolerated. Consultation Date/Type/Reason Admit Date/Time January 09, 2019 at 18:17 Initial Consult Date 01/16/19 Requesting Provider: KRISTIN PRYOR MD Date/Time of Note DATE: 01/24/19 TIME: 08:51 24 HR Interval Summary Constitutional: no complaints, improved Exam/Review of Systems Exam Vitals Vital Signs Date Temp Pulse Resp B/P (MAP) Pulse Ox O2 O2 Flow FiO2 Time Delivery Rate 01/24/19 68 08:33 01/24/19 98.1 18 109/58 98 Room Air 07:34 (75) 01/23/19 10 11:40 Intake and Output 01/23/19 01/23/19 01/24/19 1515:00 23:00 07:00 IntakeIntake Total 360 ml 900 ml 450 ml OutputOutput Total 3100 ml 800 ml BalanceBalance 360 ml -2200 ml -350 ml Constitutional: alert, oriented, well developed Psych: no complaints, nl mood/affect Head: normocephalic, atraumatic Eyes: nl conjunctiva, EOMI, nl lids, nl sclera, PERRL ENMT: nl external ears & nose, nl lips & teeth, nl nasal mucosa & septum Neck: supple, non-tender Respiratory: clear to auscultation, normal air movement Cardiovascular: regular rate and rhythm, nl pulses Gastrointestinal: soft, nl liver, spleen, non-tender Musculoskeletal: nl extremities to inspection, nl gait and stance Extremities: normal pulses 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: 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/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 II-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 intact, nl mental status, nl speech, nl strength Skin: nl turgor; No rash or lesions Lymph: nl lymph nodes Results Result Diagram: 01/24/19 0619 01/24/19 0620 Results 24hrs Laboratory Tests Test 01/23/19 17:40 01/23/19 21:06 01/24/19 06:19 01/24/19 06:20 Bedside Glucose 213 148 White Blood Count 6.8 Red Blood Count 2.96 L Hemoglobin 8.6 L Hematocrit 27.7 L Mean Corpuscular 93.6 Volume Mean Corpuscular 29.1 Hemoglobin Mean Corpuscular 31.0 L Hemoglobin Concent Red Cell 15.4 H Distribution Width Platelet Count 347 Mean Platelet Volume 10.0 Immature 0.600 H Granulocytes % Neutrophils % 51.5 Lymphocytes % 30.9 Monocytes % 11.2 H Eosinophils % 5.5 Basophils % 0.3 Nucleated Red Blood 0.0 Cells % Immature 0.040 H Granulocytes # Neutrophils # 3.5 Lymphocytes # 2.1 Monocytes # 0.8 Eosinophils # 0.4 Basophils # 0.0 Nucleated Red Blood 0.0 Cells # Sodium Level 137 Potassium Level 4.3 Chloride Level 105 Carbon Dioxide Level 29 Anion Gap 3 L Blood Urea Nitrogen 16 Creatinine 0.72 Est Glomerular > 60 Filtrat Rate mL/min Glucose Level 125 Calcium Level 9.0 Test 01/24/19 07:58 Bedside Glucose 139 Medications Medication Current Medications Amiodarone HCl (Cordarone) 200 mg DAILY PO Last administered on 01/23/19at 08:38; Admin Dose 200 MG; Start 01/10/19 at 09:00 Digoxin (Digoxin) 0.125 mg DAILY@1300 PO Last administered on 01/23/19 13:31; Admin Dose 0.125 MG; Start 01/10/19 at 13:00 Gabapentin (Neurontin) 600 mg DAILY PO Last administered on 01/21/19 08:33; Admin Dose 600 MG; Start 01/10/19 at 09:00 Empaglifozin (Jardiance) 25 mg DAILY PO Last administered on 01/22/19 08:24; Admin Dose 25 MG; Start 01/10/19 at 09:00 Linagliptin (Tradjenta) 5 mg DAILY PO Last administered on 01/22/19 08:24; Admin Dose 5 MG; Start 01/10/19 at 09:00 Diagnostic Test (Pha) (Accu-Chek) 1 ea AC MEALS AND BEDTIME XX Last administered on 01/24/19 08:01; Admin Dose 1 EA; Start 01/09/19 at 21:00 Acetaminophen (Tylenol Tab) 650 mg Q4H PRN PO MILD PAIN(1-3)OR ELEVATED TEMP; Start 01/09/19 at 20:30 Ondansetron HCl (Zofran Inj) 4 mg Q6H PRN IV NAUSEA AND/OR VOMITING Last administered on 01/14/19 19:59; Admin Dose 4 MG; Start 01/09/19 at 20:30 Diagnostic Test (Pha) (Accu-Chek) 1 ea 02 XX Last administered on 01/23/19 01:53; Admin Dose 1 EA; Start 01/10/19 at 02:00 Insulin Aspart (Novolog Insulin Pen) NOVOLOG *MILD* ALGORITHM WITH MEALS BEDTIME SC Last administered on 01/23/19 18:01; Admin Dose 2 UNIT; Start 01/09/19 at 22:30 Miscellaneous Information 1 ea NOTE XX ; Start 01/09/19 at 21:30 Glucose (Glutose) 15 gm Q15M PRN PO DECREASED GLUCOSE; Start 01/09/19 at 21:30 Glucose (Glutose) 22.5 gm Q15M PRN PO DECREASED GLUCOSE; Start 01/09/19 at 21:30 Dextrose (D50w Syringe) 25 ml Q15M PRN IV DECREASED GLUCOSE; Start 01/09/19 at 21:30 Dextrose (D50w Syringe) 50 ml Q15M PRN IV DECREASED GLUCOSE; Start 01/09/19 at 21:30 Glucagon (Glucagen) 1 mg Q15M PRN IM DECREASED GLUCOSE; Start 01/09/19 at 21:30 Glucose (Glutose) 15 gm Q15M PRN BUCCAL DECREASED GLUCOSE; Start 01/09/19 at 21:30 Insulin Glargine (Lantus) 18 units QHS SC Last administered on 01/23/19 21:16; Admin Dose 18 UNITS; Start 01/09/19 at 22:30 Carvedilol (Coreg) 3.125 mg BID PO Last administered on 01/20/19 20:46; Admin Dose 3.125 MG; Start 01/10/19 at 21:00 Vancomycin HCl (Vanco Iv Per Pharmacy) VANCOMYCIN PER PHARMACY PER PROTOCOL XX ; Start 01/11/19 at 02:30 Lisinopril (Zestril) 2.5 mg DAILY PO Last administered on 01/18/19 08:22; Admin Dose 2.5 MG; Start 01/13/19 at 09:00 Senna (Senokot) 1 tab DAILY PRN PO CONSTIPATION Last administered on 01/23/19 13:31; Admin Dose 1 TAB; Start 01/12/19 at 18:30 Docusate Sodium (Colace) 100 mg BID PRN PO CONSTIPATION Last administered on 01/23/19 13:31; Admin Dose 100 MG; Start 01/12/19 at 18:30 Neomycin/ Polymyxin/ Bacitracin (Neosporin Topical Oint) 1 applic DAILY TOP Last administered on 01/23/19 08:42; Admin Dose 1 APPLIC; Start 01/12/19 at 18:30 Cyanocobalamin (Vitamin B12 Inj) 1,000 mcg DAILY IM Last administered on 01/23/19 08:37; Admin Dose 1,000 MCG; Start 01/16/19 at 09:00 Pantoprazole (Protonix Tab) 40 mg DAILY@06 PO Last administered on 01/24/19 06:48; Admin Dose 40 MG; Start 01/17/19 at 06:00 Metronidazole 100 ml @ 100 mls/hr Q8 IVPB Last administered on 01/24/19at 06:48; Admin Dose 100 MLS/HR; Start 01/16/19 at 22:00 Cefepime HCl 50 ml @ 100 mls/hr Q12 IVPB Last administered on 01/23/19at 21:19; Admin Dose 100 MLS/HR; Start 01/17/19 at 21:00 Oxycodone HCl (Oxycontin) 10 mg BID PO Last administered on 01/23/19at 08:41; Admin Dose 10 MG; Start 01/18/19 at 15:00 Furosemide (Lasix) 20 mg BID DIURETICS IV Last administered on 01/24/19at 06:48; Admin Dose 20 MG; Start 01/21/19 at 18:30 Ferric Sodium Gluconate Complex 125 mg/Sodium Chloride 110 ml @ 110 mls/hr DAILY@1300 IVPB Last administered on 01/23/19at 13:33; Admin Dose 110 MLS/HR; Start 01/22/19 at 13:00; Stop 01/26/19 at 13:59 Hydromorphone HCl (Dilaudid) 0.5 mg Q4H PRN IV SEVERE PAIN LEVEL 7-10 Last administered on 01/24/19at 01:31; Admin Dose 0.5 MG; Start 01/22/19 at 13:00 Vancomycin HCl 250 ml @ 125 mls/hr Q12H IVPB Last administered on 01/24/19at 04:24; Admin Dose 125 MLS/HR; Start 01/22/19 at 16:00 Miscellaneous Information (*Rx Drug Level Order Reminder*) VANCOMYCIN TROUGH AT 1500 ONCE ONCE XX ; Start 01/24/19 at 15:00; Stop 01/24/19 at 15:01 KACI TORRES MD January 24, 2019 08:54
[2019-01-24] MEDS: LISINOPRIL 5 MG TAB PO SCH (09:00)
--- NOTE | 2019-01-24 09:09 | CONS ---
Assessment/Plan Assessment/Plan Hospital Course (Demo Recall) - polymicrobial infection of non-healing ulcer of R heel. CT on 01/10/2019 did not show evidence of OM. ESR 26 on 01/09/2019 and 37 on 01/12/2019; superficial wound cx Pseudomonas, E. Coli, Enterococcus (isolated from broth only), scant Proteus, and scant CoNS - s/p Debridement of the right calcaneal ulceration 01/13/2019; intraop cx grew E. Coli, Proteus, and Enterococcus - chronic wound of R heel, in the past the wound culture grew E. coli - h/o OM of R foot, h/o 6 weeks of IV vancomycin and ceftriaxone in 2018. 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 Coli and Proteus. PHOEBE Wyman spoke with [facility] who confirmed sensis of Cefepime to E. Coli and Proteus. E.coli is resistant to Amp-sulbactam - Continue IV vancomycin (01/11/2019-) - Continue Flagyl IV (01/16/19 -) - Await EGD report - Will likely require 4-6 weeks abx Plan was d/w patient verbally and with Dr. Urbano via [employer] messaging. Thank you Consultation Date/Type/Reason Admit Date/Time January 09, 2019 at 18:17 Initial Consult Date 01/10/19 Type of Consult ID Requesting Provider: KRISTIN PRYOR MD Date/Time of Note DATE: 01/24/19 TIME: 09:08 24 HR Interval Summary Free Text/Dictation The patient tells me "I'm very tired" states he couldn't sleep last night. Reports his pain in his foot today is 5/10. States he would like to stay at [facility] to get his RLE bypass done because he is w orried about insurance auth if he transfers elsewhere. Reports that when he spoke with Dr. Roberts he was told for his mass for additional workup would like to have him transferred to [facility]. Patient denied all other ROS on a 10pt ROS. Exam/Review of Systems Exam Vitals Vital Signs Date Temp Pulse Resp B/P (MAP) Pulse Ox O2 O2 Flow FiO2 Time Delivery Rate 01/24/19 68 08:33 01/24/19 98.1 18 109/58 98 Room Air 07:34 (75) 01/23/19 10 11:40 Allergies Coded Allergies No Known Allergy (Unverified01/09/19) Intake and Output 01/23/19 01/23/19 01/24/19 1515:00 23:00 07:00 IntakeIntake Total 360 ml 900 ml 450 ml OutputOutput Total 3100 ml 800 ml BalanceBalance 360 ml -2200 ml -350 ml Exam Constitutional: alert, oriented, well developed, other (sitting in a chair at the bedside sleeping - easily awakened for assessment and then quickly fell back to sleep) Psych: no complaints, nl mood/affect Head: normocephalic, atraumatic Eyes: nl conjunctiva, nl lids, nl sclera ENMT: nl external ears & nose, nl nasal mucosa & septum, mucosa pink and moist (no thrush) Neck: supple, non-tender Respiratory: clear to auscultation, normal air movement; No labored breathing, No wheezing Cardiovascular: regular rate and rhythm, nl pulses, edema (right foot swelling), other (Right 3-lumen chest central line, site is c/d/i) Gastrointestinal: soft, non-tender, bowel sounds (normoactive); No distended, No firm, No tender Genitourinary - Male: other (urinal at bedside containing yellow urine) Extremities: normal pulses, other (right foot wrapped with a c/d/i dressing) 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: FINISHER PLATE II-XII intact, nl mental status, nl speech, nl strength Skin: nl turgor; No rash or lesions Results Result Diagram: 01/24/19 0619 01/24/19 0620 Results 24hrs Laboratory Tests Test 01/23/19 17:40 01/23/19 21:06 01/24/19 06:19 01/24/19 06:20 Bedside Glucose 213 148 White Blood Count 6.8 Red Blood Count 2.96 L Hemoglobin 8.6 L Hematocrit 27.7 L Mean Corpuscular 93.6 Volume Mean Corpuscular 29.1 Hemoglobin Mean Corpuscular 31.0 L Hemoglobin Concent Red Cell 15.4 H Distribution Width Platelet Count 347 Mean Platelet Volume 10.0 Immature 0.600 H Granulocytes % Neutrophils % 51.5 Lymphocytes % 30.9 Monocytes % 11.2 H Eosinophils % 5.5 Basophils % 0.3 Nucleated Red Blood 0.0 Cells % Immature 0.040 H Granulocytes # Neutrophils # 3.5 Lymphocytes # 2.1 Monocytes # 0.8 Eosinophils # 0.4 Basophils # 0.0 Nucleated Red Blood 0.0 Cells # Sodium Level 137 Potassium Level 4.3 Chloride Level 105 Carbon Dioxide Level 29 Anion Gap 3 L Blood Urea Nitrogen 16 Creatinine 0.72 Est Glomerular > 60 Filtrat Rate mL/min Glucose Level 125 Calcium Level 9.0 Test 01/24/19 07:58 Bedside Glucose 139 Medications Medication Current Medications Amiodarone HCl (Cordarone) 200 mg DAILY PO Last administered on 01/23/19 08:38; Admin Dose 200 MG; Start 01/10/19 at 09:00 Digoxin (Digoxin) 0.125 mg DAILY@1300 PO Last administered on 01/23/19 13:31; Admin Dose 0.125 MG; Start 01/10/19 at 13:00 Gabapentin (Neurontin) 600 mg DAILY PO Last administered on 01/21/19 08:33; Admin Dose 600 MG; Start 01/10/19 at 09:00 Empaglifozin (Jardiance) 25 mg DAILY PO Last administered on 01/22/19 08:24; Admin Dose 25 MG; Start 01/10/19 at 09:00 Linagliptin (Tradjenta) 5 mg DAILY PO Last administered on 01/22/19 08:24; Admin Dose 5 MG; Start 01/10/19 at 09:00 Diagnostic Test (Pha) (Accu-Chek) 1 ea AC MEALS AND BEDTIME XX Last administered on 01/24/19 08:01; Admin Dose 1 EA; Start 01/09/19 at 21:00 Acetaminophen (Tylenol Tab) 650 mg Q4H PRN PO MILD PAIN(1-3)OR ELEVATED TEMP; Start 01/09/19 at 20:30 Ondansetron HCl (Zofran Inj) 4 mg Q6H PRN IV NAUSEA AND/OR VOMITING Last administered on 01/14/19at 19:59; Admin Dose 4 MG; Start 01/09/19 at 20:30 Diagnostic Test (Pha) (Accu-Chek) 1 ea 02 XX Last administered on 01/23/19at 01:53; Admin Dose 1 EA; Start 01/10/19 at 02:00 Insulin Aspart (Novolog Insulin Pen) NOVOLOG *MILD* ALGORITHM WITH MEALS B EDTIME SC Last administered on 01/23/19at 18:01; Admin Dose 2 UNIT; Start 01/09/19 at 22:30 Miscellaneous Information 1 ea NOTE XX ; Start 01/09/19 at 21:30 Glucose (Glutose) 15 gm Q15M PRN PO DECREASED GLUCOSE; Start 01/09/19 at 21:30 Glucose (Glutose) 22.5 gm Q15M PRN PO DECREASED GLUCOSE; Start 01/09/19 at 21:30 Dextrose (D50w Syringe) 25 ml Q15M PRN IV DECREASED GLUCOSE; Start 01/09/19 at 21:30 Dextrose (D50w Syringe) 50 ml Q15M PRN IV DECREASED GLUCOSE; Start 01/09/19 at 21:30 Glucagon (Glucagen) 1 mg Q15M PRN IM DECREASED GLUCOSE; Start 01/09/19 at 21:30 Glucose (Glutose) 15 gm Q15M PRN BUCCAL DECREASED GLUCOSE; Start 01/09/19 at 21:30 Insulin Glargine (Lantus) 18 units QHS SC Last administered on 01/23/19at 21:16; Admin Dose 18 UNITS; Start 01/09/19 at 22:30 Carvedilol (Coreg) 3.125 mg BID PO Last administered on 01/20/19at 20:46; Admin Dose 3.125 MG; Start 01/10/19 at 21:00 Vancomycin HCl (Vanco Iv Per Pharmacy) VANCOMYCIN PER PHARMACY PER PROTOCOL XX ; Start 01/11/19 at 02:30 Lisinopril (Zestril) 2.5 mg DAILY PO Last administered on 01/18/19at 08:22; Admin Dose 2.5 MG; Start 01/13/19 at 09:00 Senna (Senokot) 1 tab DAILY PRN PO CONSTIPATION Last administered on 01/23/19 13:31; Admin Dose 1 TAB; Start 01/12/19 at 18:30 Docusate Sodium (Colace) 100 mg BID PRN PO CONSTIPATION Last administered on 01/23/19 13:31; Admin Dose 100 MG; Start 01/12/19 at 18:30 Neomycin/ Polymyxin/ Bacitracin (Neosporin Topical Oint) 1 applic DAILY TOP Last administered on 01/23/19 08:42; Admin Dose 1 APPLIC; Start 01/12/19 at 18:30 Cyanocobalamin (Vitamin B12 Inj) 1,000 mcg DAILY IM Last administered on 01/23/19 08:37; Admin Dose 1,000 MCG; Start 01/16/19 at 09:00 Pantoprazole (Protonix Tab) 40 mg DAILY@06 PO Last administered on 01/24/19 06:48; Admin Dose 40 MG; Start 01/17/19 at 06:00 Metronidazole 100 ml @ 100 mls/hr Q8 IVPB Last administered on 01/24/19 06:48; Admin Dose 100 MLS/HR; Start 01/16/19 at 22:00 Cefepime HCl 50 ml @ 100 mls/hr Q12 IVPB Last administered on 01/23/19 21:19; Admin Dose 100 MLS/HR; Start 01/17/19 at 21:00 Oxycodone HCl (Oxycontin) 10 mg BID PO Last administered on 01/23/19 08:41; Admin Dose 10 MG; Start 01/18/19 at 15:00 Furosemide (Lasix) 20 mg BID DIURETICS IV Last administered on 01/24/19 06:48; Admin Dose 20 MG; Start 01/21/19 at 18:30 Ferric Sodium Gluconate Complex 125 mg/Sodium Chloride 110 ml @ 110 mls/hr DAILY@1300 IVPB Last administered on 01/23/19 13:33; Admin Dose 110 MLS/HR; Start 01/22/19 at 13:00; Stop 01/26/19 at 13:59 Hydromorphone HCl (Dilaudid) 0.5 mg Q4H PRN IV SEVERE PAIN LEVEL 7-10 Last administered on 01/24/19 01:31; Admin Dose 0.5 MG; Start 01/22/19 at 13:00 Vancomycin HCl 250 ml @ 125 mls/hr Q12H IVPB Last administered on 01/24/19at 04:24; Admin Dose 125 MLS/HR; Start 01/22/19 at 16:00 Miscellaneous Information (*Rx Drug Level Order Reminder*) VANCOMYCIN TROUGH AT 1500 ONCE ONCE XX ; Start 01/24/19 at 15:00; Stop 01/24/19 at 15:01 FELICITY SORTO NP January 24, 2019 09:09
[2019-01-24] MEDS: CYANOCOBALAMIN 1000 MCG INJ IM SCH (09:52)
[2019-01-24] MEDS: GABAPENTIN 300 MG CAP PO SCH (09:54)
[2019-01-24] MEDS: EMPAGLIFLOZIN 10 MG TABLET PO SCH (09:54)
[2019-01-24] MEDS: CEFEPIME 2GM/50 ML (PMX) 50 ML IVPB SCH ×2 (09:54→20:55)
[2019-01-24] MEDS: oxyCODONE (CR) 10 MG TAB [oxyCONTIN] PO SCH ×2 (09:55→20:53)
[2019-01-24] MEDS: LINAGLIPTIN 5 MG TABLET PO SCH (09:55)
[2019-01-24] MEDS: AMIODARONE 200 MG TAB PO SCH (09:56)
[2019-01-24] MEDS: NEOMYC/POLYMYX/BACIT 30 GM OINT TOP SCH (09:56)
--- NOTE | 2019-01-24 11:19 | PN ---
Date/Time of Note Date/Time of Note DATE: 01/24/19 TIME: 11:18 Assessment/Plan VTE Prophylaxis Risk score (from [facility]0 risk: 8 SCD applied (from [facility] [place] No SCD contraindicated: other Pharmacological prophylaxis: LMWH Lines/Catheters IV Catheter Type (from [facility]): Central Line Central line still needed: Yes Urinary Cath still in place: No Assessment/Plan Hospital Course 1. Right heel necrotic wound. 2. 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 3. Coronary artery disease, status post coronary artery bypass graft. 4. Status post AICD. 5. Hypertension. 6. Diabetes. Result Diagram: 01/24/19 0619 01/24/19 0620 Results 24hrs Laboratory Tests Test 01/23/19 17:40 01/23/19 21:06 01/24/19 06:19 01/24/19 06:20 Bedside Glucose 213 148 White Blood Count 6.8 Red Blood Count 2.96 L Hemoglobin 8.6 L Hematocrit 27.7 L Mean Corpuscular 93.6 Volume Mean Corpuscular 29.1 Hemoglobin Mean Corpuscular 31.0 L Hemoglobin Concent Red Cell 15.4 H Distribution Width Platelet Count 347 Mean Platelet Volume 10.0 Immature 0.600 H Granulocytes % Neutrophils % 51.5 Lymphocytes % 30.9 Monocytes % 11.2 H Eosinophils % 5.5 Basophils % 0.3 Nucleated Red Blood 0.0 Cells % Immature 0.040 H Granulocytes # Neutrophils # 3.5 Lymphocytes # 2.1 Monocytes # 0.8 Eosinophils # 0.4 Basophils # 0.0 Nucleated Red Blood 0.0 Cells # Sodium Level 137 Potassium Level 4.3 Chloride Level 105 Carbon Dioxide Level 29 Anion Gap 3 L Blood Urea Nitrogen 16 Creatinine 0.72 Est Glomerular > 60 Filtrat Rate mL/min Glucose Level 125 Calcium Level 9.0 Test 01/24/19 07:58 01/24/19 09:54 Bedside Glucose 139 257 H Subjective 24 Hr Interval Summary Free Text/Dictation Patient has no complaints Exam/Review of Systems Exam Vitals Vital Signs Date Temp Pulse Resp B/P (MAP) Pulse Ox O2 O2 Flow FiO2 Time Delivery Rate 01/24/19 68 08:33 01/24/19 98.1 18 109/58 98 Room Air 07:34 (75) 01/23/19 10 11:40 Intake and Output 01/23/19 01/23/19 01/24/19 1515:00 23:00 07:00 IntakeIntake Total 360 ml 900 ml 450 ml OutputOutput Total 3100 ml 800 ml BalanceBalance 360 ml -2200 ml -350 ml Constitutional: well developed Head: normocephalic, atraumatic Neck: supple Respiratory: clear to auscultation Cardiovascular: regular rate and rhythm Gastrointestinal: soft, non-tender Extremities: normal pulses Results Results 24hrs Laboratory Tests Test 01/23/19 17:40 01/23/19 21:06 01/24/19 06:19 01/24/19 06:20 Bedside Glucose 213 148 White Blood Count 6.8 Red Blood Count 2.96 L Hemoglobin 8.6 L Hematocrit 27.7 L Mean Corpuscular 93.6 Volume Mean Corpuscular 29.1 Hemoglobin Mean Corpuscular 31.0 L Hemoglobin Concent Red Cell 15.4 H Distribution Width Platelet Count 347 Mean Platelet Volume 10.0 Immature 0.600 H Granulocytes % Neutrophils % 51.5 Lymphocytes % 30.9 Monocytes % 11.2 H Eosinophils % 5.5 Basophils % 0.3 Nucleated Red Blood 0.0 Cells % Immature 0.040 H Granulocytes # Neutrophils # 3.5 Lymphocytes # 2.1 Monocytes # 0.8 Eosinophils # 0.4 Basophils # 0.0 Nucleated Red Blood 0.0 Cells # Sodium Level 137 Potassium Level 4.3 Chloride Level 105 Carbon Dioxide Level 29 Anion Gap 3 L Blood Urea Nitrogen 16 Creatinine 0.72 Est Glomerular > 60 Filtrat Rate mL/min Glucose Level 125 Calcium Level 9.0 Test 01/24/19 07:58 01/24/19 09:54 Bedside Glucose 139 257 H Medications Medication Current Medications Amiodarone HCl (Cordarone) 200 mg DAILY PO Last administered on 01/24/19at 09:56; Admin Dose 200 MG; Start 01/10/19 at 09:00 Digoxin (Digoxin) 0.125 mg DAILY@1300 PO Last administered on 01/23/19at 13:31; Admin Dose 0.125 MG; Start 01/10/19 at 13:00 Gabapentin (Neurontin) 600 mg DAILY PO Last administered on 01/24/19at 09:54; Admin Dose 600 MG; Start 01/10/19 at 09:00 Empaglifozin (Jardiance) 25 mg DAILY PO Last administered on 01/24/19 09:54; Admin Dose 25 MG; Start 01/10/19 at 09:00 Linagliptin (Tradjenta) 5 mg DAILY PO Last administered on 01/24/19 09:55; Admin Dose 5 MG; Start 01/10/19 at 09:00 Diagnostic Test (Pha) (Accu-Chek) 1 ea AC MEALS AND BEDTIME XX Last administered on 01/24/19 08:01; Admin Dose 1 EA; Start 01/09/19 at 21:00 Acetaminophen (Tylenol Tab) 650 mg Q4H PRN PO MILD PAIN(1-3)OR ELEVATED TEMP; Start 01/09/19 at 20:30 Ondansetron HCl (Zofran Inj) 4 mg Q6H PRN IV NAUSEA AND/OR VOMITING Last administered on 01/14/19 19:59; Admin Dose 4 MG; Start 01/09/19 at 20:30 Diagnostic Test (Pha) (Accu-Chek) 1 ea 02 XX Last administered on 01/23/19 01:53; Admin Dose 1 EA; Start 01/10/19 at 02:00 Insulin Aspart (Novolog Insulin Pen) NOVOLOG *MILD* ALGORITHM WITH MEALS BEDTIME SC Last administered on 01/23/19 18:01; Admin Dose 2 UNIT; Start 01/09/19 at 22:30 Miscellaneous Information 1 ea NOTE XX ; Start 01/09/19 at 21:30 Glucose (Glutose) 15 gm Q15M PRN PO DECREASED GLUCOSE; Start 01/09/19 at 21:30 Glucose (Glutose) 22.5 gm Q15M PRN PO DECREASED GLUCOSE; Start 01/09/19 at 21:30 Dextrose (D50w Syringe) 25 ml Q15M PRN IV DECREASED GLUCOSE; Start 01/09/19 at 21:30 Dextrose (D50w Syringe) 50 ml Q15M PRN IV DECREASED GLUCOSE; Start 01/09/19 at 21:30 Glucagon (Glucagen) 1 mg Q15M PRN IM DECREASED GLUCOSE; Start 01/09/19 at 21:30 Glucose (Glutose) 15 gm Q15M PRN BUCCAL DECREASED GLUCOSE; Start 01/09/19 at 21:30 Insulin Glargine (Lantus) 18 units QHS SC Last administered on 5/17/19at 21:16; Admin Dose 18 UNITS; Start 01/09/19 at 22:30 Carvedilol (Coreg) 3.125 mg BID PO Last administered on 01/20/19 20:46; Admin Dose 3.125 MG; Start 01/10/19 at 21:00 Vancomycin HCl (Vanco Iv Per Pharmacy) VANCOMYCIN PER PHARMACY PER PROTOCOL XX ; Start 01/11/19 at 02:30 Lisinopril (Zestril) 2.5 mg DAILY PO Last administered on 01/18/19 08:22; Admin Dose 2.5 MG; Start 01/13/19 at 09:00 Senna (Senokot) 1 tab DAILY PRN PO CONSTIPATION Last administered on 01/23/19 13:31; Admin Dose 1 TAB; Start 01/12/19 at 18:30 Docusate Sodium (Colace) 100 mg BID PRN PO CONSTIPATION Last administered on 01/23/19 13:31; Admin Dose 100 MG; Start 01/12/19 at 18:30 Neomycin/ Polymyxin/ Bacitracin (Neosporin Topical Oint) 1 applic DAILY TOP Last administered on 01/24/19 09:56; Admin Dose 1 APPLIC; Start 01/12/19 at 18:30 Cyanocobalamin (Vitamin B12 Inj) 1,000 mcg DAILY IM Last administered on 01/24/19 09:52; Admin Dose 1,000 MCG; Start 01/16/19 at 09:00 Pantoprazole (Protonix Tab) 40 mg DAILY@06 PO Last administered on 01/24/19 06:48; Admin Dose 40 MG; Start 01/17/19 at 06:00 Metronidazole 100 ml @ 100 mls/hr Q8 IVPB Last administered on 01/24/19 06:48; Admin Dose 100 MLS/HR; Start 01/16/19 at 22:00 Cefepime HCl 50 ml @ 100 mls/hr Q12 IVPB Last administered on 01/24/19 09:54; Admin Dose 100 MLS/HR; Start 01/17/19 at 21:00 Oxycodone HCl (Oxycontin) 10 mg BID PO Last administered on 01/24/19 09:55; Admin Dose 10 MG; Start 01/18/19 at 15:00 Furosemide (Lasix) 20 mg BID DIURETICS IV Last administered on 5/18/19at 06:48; Admin Dose 20 MG; Start 01/21/19 at 18:30 Ferric Sodium Gluconate Complex 125 mg/Sodium Chloride 110 ml @ 110 mls/hr DAILY@1300 IVPB Last administered on 01/23/19at 13:33; Admin Dose 110 MLS/HR; Start 01/22/19 at 13:00; Stop 01/26/19 at 13:59 Hydromorphone HCl (Dilaudid) 0.5 mg Q4H PRN IV SEVERE PAIN LEVEL 7-10 Last administered on 01/24/19at 01:31; Admin Dose 0.5 MG; Start 01/22/19 at 13:00 Vancomycin HCl 250 ml @ 125 mls/hr Q12H IVPB Last administered on 01/24/19at 04:24; Admin Dose 125 MLS/HR; Start 01/22/19 at 16:00 Miscellaneous Information (*Rx Drug Level Order Reminder*) VANCOMYCIN TROUGH AT 1500 ONCE ONCE XX ; Start 01/24/19 at 15:00; Stop 01/24/19 at 15:01 PARISA VARGAS January 24, 2019 11:19
[2019-01-24] MEDS: SOD FERRIC GLUC COMPLX 125 MG in SOD CHLORIDE 0.9% 100 ML IVPB SCH (12:12)
[2019-01-24] MEDS: DIGOXIN 0.125 MG TAB PO SCH (12:13)
--- NOTE | 2019-01-24 13:20 | CONS ---
Assessment/Plan Assessment/Plan Assessment/Plan (Daily) 63-year-old gentleman with history of coronary artery disease, status post CABG, also status post AICD placement, hypertension, diabetes, peripheral vascular disease, status post aortogram and right lower extremity runoff and percutaneous angioplasty of the posterior tibial artery and anterior tibial artery in 10/2018. Patient has a worsening RLE heel wound and thus admitted for sepsis. 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 Patient will need surgery in the future to remove the tumor. -Hg currently stable -likely 2/2 GI bleed -continue to hold all blood thinners -CT A/P does not reveal evidence of bleed -f/u endoscopy. pt was found with a T3.5 cm mass/filling defect arising along the lesser curvature of the stomach, -Transfuse to keep hgb > 7. Patient had a transfusion 01/15/2019; but did not respond appropriately. 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 Patient will need surgery in the future to remove the tumor. -01/17/2019- CT abdomen/pelvis -c/o right foot pain- effective pain control - no new events reported last night dw staff Detailed Summary Eyes: no complaints ENT: no complaints Respiratory: no complaints Cardiovascular: no complaints Gastrointestinal: no complaints Genitourinary: no complaints Musculoskeletal: bone/joint pain Skin: other Neurologic: no complaints Endocrine: no complaints Lymphatic: no complaints Psychological: nl mood/affect Exam/Review of Systems Exam Vitals Vital Signs Date Temp Pulse Resp B/P (MAP) Pulse Ox O2 O2 Flow FiO2 Time Delivery Rate 01/24/19 75 12:48 01/24/19 98.1 19 92/59 (70) 98 Room Air 11:33 01/23/19 10 11:40 Intake and Output 01/23/19 01/23/19 01/24/19 1515:00 23:00 07:00 IntakeIntake Total 360 ml 900 ml 450 ml OutputOutput Total 3100 ml 800 ml BalanceBalance 360 ml -2200 ml -350 ml Constitutional: alert, well developed, obese Psych: nl mood/affect Head: normocephalic Eyes: nl lids, nl sclera ENMT: nl external ears & nose Neck: non-tender Respiratory: clear to auscultation Cardiovascular: nl pulses, other (s1s2) Gastrointestinal: soft, non-tender Musculoskeletal: joint tenderness, range of motion, swelling Extremities: edema 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: nl speech, other (alert/responsive) Lymph: No nontender Results Result Diagram: 01/24/1961801/24/19 0620 Results 24hrs Laboratory Tests Test 01/23/19 17:40 01/23/19 21:06 01/24/19 06:19 01/24/19 06:20 Bedside Glucose 213 148 White Blood Count 6.8 Red Blood Count 2.96 L Hemoglobin 8.6 L Hematocrit 27.7 L Mean Corpuscular 93.6 Volume Mean Corpuscular 29.1 Hemoglobin Mean Corpuscular 31.0 L Hemoglobin Concent Red Cell 15.4 H Distribution Width Platelet Count 347 Mean Platelet Volume 10.0 Immature 0.600 H Granulocytes % Neutrophils % 51.5 Lymphocytes % 30.9 Monocytes % 11.2 H Eosinophils % 5.5 Basophils % 0.3 Nucleated Red Blood 0.0 Cells % Immature 0.040 H Granulocytes # Neutrophils # 3.5 Lymphocytes # 2.1 Monocytes # 0.8 Eosinophils # 0.4 Basophils # 0.0 Nucleated Red Blood 0.0 Cells # Sodium Level 137 Potassium Level 4.3 Chloride Level 105 Carbon Dioxide Level 29 Anion Gap 3 L Blood Urea Nitrogen 16 Creatinine 0.72 Est Glomerular > 60 Filtrat Rate mL/min Glucose Level 125 Calcium Level 9.0 Test 01/24/19 07:58 01/24/19 09:54 01/24/19 12:11 Bedside Glucose 139 257 H 210 Medications Medication Current Medications Amiodarone HCl (Cordarone) 200 mg DAILY PO Last administered on 01/24/19 09:56; Admin Dose 200 MG; Start 01/10/19 at 09:00 Digoxin (Digoxin) 0.125 mg DAILY@1300 PO Last administered on 01/24/19 12:13; Admin Dose 0.125 MG; Start 01/10/19 at 13:00 Gabapentin (Neurontin) 600 mg DAILY PO Last administered on 01/24/19 09:54; Admin Dose 600 MG; Start 01/10/19 at 09:00 Empaglifozin (Jardiance) 25 mg DAILY PO Last administered on 01/24/19 09:54; Admin Dose 25 MG; Start 01/10/19 at 09:00 Linagliptin (Tradjenta) 5 mg DAILY PO Last administered on 01/24/19 09:55; Admin Dose 5 MG; Start 01/10/19 at 09:00 Diagnostic Test (Pha) (Accu-Chek) 1 ea AC MEALS AND BEDTIME XX Last administered on 01/24/19 12:13; Admin Dose 1 EA; Start 01/09/19 at 21:00 Acetaminophen (Tylenol Tab) 650 mg Q4H PRN PO MILD PAIN(1-3)OR ELEVATED TEMP; Start 01/09/19 at 20:30 Ondansetron HCl (Zofran Inj) 4 mg Q6H PRN IV NAUSEA AND/OR VOMITING Last administered on 01/14/19 19:59; Admin Dose 4 MG; Start 01/09/19 at 20:30 Diagnostic Test (Pha) (Accu-Chek) 1 ea 02 XX Last administered on 01/23/19 01:53; Admin Dose 1 EA; Start 01/10/19 at 02:00 Insulin Aspart (Novolog Insulin Pen) NOVOLOG *MILD* ALGORITHM WITH MEALS BEDTIME SC Last administered on 01/24/19 12:22; Admin Dose 2 UNIT; Start 01/09/19 at 22:30 Miscellaneous Information 1 ea NOTE XX ; Start 01/09/19 at 21:30 Glucose (Glutose) 15 gm Q15M PRN PO DECREASED GLUCOSE; Start 01/09/19 at 21:30 Glucose (Glutose) 22.5 gm Q15M PRN PO DECREASED GLUCOSE; Start 01/09/19 at 21:30 Dextrose (D50w Syringe) 25 ml Q15M PRN IV DECREASED GLUCOSE; Start 01/09/19 at 21:30 Dextrose (D50w Syringe) 50 ml Q15M PRN IV DECREASED GLUCOSE; Start 01/09/19 at 21:30 Glucagon (Glucagen) 1 mg Q15M PRN IM DECREASED GLUCOSE; Start 01/09/19 at 21:30 Glucose (Glutose) 15 gm Q15M PRN BUCCAL DECREASED GLUCOSE; Start 01/09/19 at 21 :30 Insulin Glargine (Lantus) 18 units QHS SC Last administered on 01/23/19 21:16; Admin Dose 18 UNITS; Start 01/09/19 at 22:30 Carvedilol (Coreg) 3.125 mg BID PO Last administered on 01/20/19 20:46; Admin Dose 3.125 MG; Start 01/10/19 at 21:00 Vancomycin HCl (Vanco Iv Per Pharmacy) VANCOMYCIN PER PHARMACY PER PROTOCOL XX ; Start 01/11/19 at 02:30 Lisinopril (Zestril) 2.5 mg DAILY PO Last administered on 01/18/19 08:22; Admin Dose 2.5 MG; Start 01/13/19 at 09:00 Senna (Senokot) 1 tab DAILY PRN PO CONSTIPATION Last administered on 01/23/19 13:31; Admin Dose 1 TAB; Start 01/12/19 at 18:30 Docusate Sodium (Colace) 100 mg BID PRN PO CONSTIPATION Last administered on 01/23/19 13:31; Admin Dose 100 MG; Start 01/12/19 at 18:30 Neomycin/ Polymyxin/ Bacitracin (Neosporin Topical Oint) 1 applic DAILY TOP Last administered on 01/24/19 09:56; Admin Dose 1 APPLIC; Start 01/12/19 at 18:30 Cyanocobalamin (Vitamin B12 Inj) 1,000 mcg DAILY IM Last administered on 01/24/19 09:52; Admin Dose 1,000 MCG; Start 01/16/19 at 09:00 Pantoprazole (Protonix Tab) 40 mg DAILY@06 PO Last administered on 01/24/19 06:48; Admin Dose 40 MG; Start 01/17/19 at 06:00 Metronidazole 100 ml @ 100 mls/hr Q8 IVPB Last administered on 01/24/19 06:48; Admin Dose 100 MLS/HR; Start 01/16/19 at 22:00 Cefepime HCl 50 ml @ 100 mls/hr Q12 IVPB Last administered on 01/24/19 09:54; Admin Dose 100 MLS/HR; Start 01/17/19 at 21:00 Oxycodone HCl (Oxycontin) 10 mg BID PO Last administered on 01/24/19 09:55; Admin Dose 10 MG; Start 01/18/19 at 15:00 Furosemide (Lasix) 20 mg BID DIURETICS IV Last administered on 01/24/19 06:48; Admin Dose 20 MG; Start 01/21/19 at 18:30 Ferric Sodium Gluconate Complex 125 mg/Sodium Chloride 110 ml @ 110 mls/hr DAILY@1300 IVPB Last administered on 01/24/19 12:12; Admin Dose 110 MLS/HR; Start 01/22/19 at 13:00; Stop 01/26/19 at 13:59 Hydromorphone HCl (Dilaudid) 0.5 mg Q4H PRN IV SEVERE PAIN LEVEL 7-10 Last administered on 01/24/19 01:31; Admin Dose 0.5 MG; Start 01/22/19 at 13:00 Vancomycin HCl 250 ml @ 125 mls/hr Q12H IVPB Last administered on 01/24/19 04:24; Admin Dose 125 MLS/HR; Start 01/22/19 at 16:00 Miscellaneous Information (*Rx Drug Level Order Reminder*) VANCOMYCIN TROUGH AT 1500 ONCE ONCE XX ; Start 01/24/19 at 15:00; Stop 01/24/19 at 15:01 MARTINE PUENTES January 24, 2019 13:20
--- NOTE | 2019-01-24 13:49 | CONS ---
Consultation Date/Type/Reason Admit Date/Time January 09, 2019 at 18:17 Initial Consult Date 01/10/19 Type of Consult Cardiology Requesting Provider: KRISTIN PRYOR MD Date/Time of Note DATE: 01/24/19 TIME: 13:49 24 HR Interval Summary Free Text/Dictation VS reviewd - stable. Exam/Review of Systems Vital Signs Vitals Vital Signs Date Temp Pulse Resp B/P (MAP) Pulse Ox O2 O2 Flow FiO2 Time Delivery Rate 01/24/19 75 12:48 01/24/19 98.1 19 92/59 (70) 98 Room Air 11:33 01/23/19 10 11:40 Intake and Output 01/23/19 01/23/19 01/24/19 1515:00 23:00 07:00 IntakeIntake Total 360 ml 900 ml 450 ml OutputOutput Total 3100 ml 800 ml BalanceBalance 360 ml -2200 ml -350 ml Labs Result Diagram: 01/24/19 0619 01/24/19 0620 Results 24hrs Laboratory Tests Test 01/23/19 17:40 01/23/19 21:06 01/24/19 06:19 01/24/19 06:20 Bedside Glucose 213 148 White Blood Count 6.8 Red Blood Count 2.96 L Hemoglobin 8.6 L Hematocrit 27.7 L Mean Corpuscular 93.6 Volume Mean Corpuscular 29.1 Hemoglobin Mean Corpuscular 31.0 L Hemoglobin Concent Red Cell 15.4 H Distribution Width Platelet Count 347 Mean Platelet Volume 10.0 Immature 0.600 H Granulocytes % Neutrophils % 51.5 Lymphocytes % 30.9 Monocytes % 11.2 H Eosinophils % 5.5 Basophils % 0.3 Nucleated Red Blood 0.0 Cells % Immature 0.040 H Granulocytes # Neutrophils # 3.5 Lymphocytes # 2.1 Monocytes # 0.8 Eosinophils # 0.4 Basophils # 0.0 Nucleated Red Blood 0.0 Cells # Sodium Level 137 Potassium Level 4.3 Chloride Level 105 Carbon Dioxide Level 29 Anion Gap 3 L Blood Urea Nitrogen 16 Creatinine 0.72 Est Glomerular > 60 Filtrat Rate mL/min Glucose Level 125 Calcium Level 9.0 Test 01/24/19 07:58 01/24/19 09:54 01/24/19 12:11 Bedside Glucose 139 257 H 210 Medications Medications Current Medications Amiodarone HCl (Cordarone) 200 mg DAILY PO Last administered on 01/24/19 09:56; Admin Dose 200 MG; Start 01/10/19 at 09:00 Digoxin (Digoxin) 0.125 mg DAILY@1300 PO Last administered on 01/24/19 12:13; Admin Dose 0.125 MG; Start 01/10/19 at 13:00 Gabapentin (Neurontin) 600 mg DAILY PO Last administered on 01/24/19 09:54; A dmin Dose 600 MG; Start 01/10/19 at 09:00 Empaglifozin (Jardiance) 25 mg DAILY PO Last administered on 01/24/19 09:54; Admin Dose 25 MG; Start 01/10/19 at 09:00 Linagliptin (Tradjenta) 5 mg DAILY PO Last administered on 01/24/19 09:55; Admin Dose 5 MG; Start 01/10/19 at 09:00 Diagnostic Test (Pha) (Accu-Chek) 1 ea AC MEALS AND BEDTIME XX Last administered on 01/24/19 12:13; Admin Dose 1 EA; Start 01/09/19 at 21:00 Acetaminophen (Tylenol Tab) 650 mg Q4H PRN PO MILD PAIN(1-3)OR ELEVATED TEMP; Start 01/09/19 at 20:30 Ondansetron HCl (Zofran Inj) 4 mg Q6H PRN IV NAUSEA AND/OR VOMITING Last adm inistered on 01/14/19 19:59; Admin Dose 4 MG; Start 01/09/19 at 20:30 Diagnostic Test (Pha) (Accu-Chek) 1 ea 02 XX Last administered on 01/23/19 01:53; Admin Dose 1 EA; Start 01/10/19 at 02:00 Insulin Aspart (Novolog Insulin Pen) NOVOLOG *MILD* ALGORITHM WITH MEALS BEDTIME SC Last administered on 01/24/19 12:22; Admin Dose 2 UNIT; Start 01/09/19 at 22:30 Miscellaneous Information 1 ea NOTE XX ; Start 01/09/19 at 21:30 Glucose (Glutose) 15 gm Q15M PRN PO DECREASED GLUCOSE; Start 01/09/19 at 21:30 Glucose (Glutose) 22.5 gm Q15M PRN PO DECREASED GLUCOSE; Start 01/09/19 at 21:30 Dextrose (D50w Syringe) 25 ml Q15M PRN IV DECREASED GLUCOSE; Start 01/09/19 at 21:30 Dextrose (D50w Syringe) 50 ml Q15M PRN IV DECREASED GLUCOSE; Start 01/09/19 at 21:30 Glucagon (Glucagen) 1 mg Q15M PRN IM DECREASED GLUCOSE; Start 01/09/19 at 21:30 Glucose (Glutose) 15 gm Q15M PRN BUCCAL DECREASED GLUCOSE; Start 01/09/19 at 21:30 Insulin Glargine (Lantus) 18 units QHS SC Last administered on 01/23/19 21:16; Admin Dose 18 UNITS; Start 01/09/19 at 22:30 Carvedilol (Coreg) 3.125 mg BID PO Last administered on 01/20/19at 20:46; Admin Dose 3.125 MG; Start 01/10/19 at 21:00 Vancomycin HCl (Vanco Iv Per Pharmacy) VANCOMYCIN PER PHARMACY PER PROTOCOL XX ; Start 01/11/19 at 02:30 Lisinopril (Zestril) 2.5 mg DAILY PO Last administered on 01/18/19at 08:22; Admin Dose 2.5 MG; Start 01/13/19 at 09:00 Senna (Senokot) 1 tab DAILY PRN PO CONSTIPATION Last administered on 01/23/19 13:31; Admin Dose 1 TAB; Start 01/12/19 at 18:30 Docusate Sodium (Colace) 100 mg BID PRN PO CONSTIPATION Last administered on 01/23/19 13:31; Admin Dose 100 MG; Start 01/12/19 at 18:30 Neomycin/ Polymyxin/ Bacitracin (Neosporin Topical Oint) 1 applic DAILY TOP Last administered on 01/24/19at 09:56; Admin Dose 1 APPLIC; Start 01/12/19 at 1 8:30 Cyanocobalamin (Vitamin B12 Inj) 1,000 mcg DAILY IM Last administered on 01/24/19at 09:52; Admin Dose 1,000 MCG; Start 01/16/19 at 09:00 Pantoprazole (Protonix Tab) 40 mg DAILY@06 PO Last administered on 01/24/19at 06:48; Admin Dose 40 MG; Start 01/17/19 at 06:00 Metronidazole 100 ml @ 100 mls/hr Q8 IVPB Last administered on 01/24/19 06:48; Admin Dose 100 MLS/HR; Start 01/16/19 at 22:00 Cefepime HCl 50 ml @ 100 mls/hr Q12 IVPB Last administered on 01/24/19 09:54; Admin Dose 100 MLS/HR; Start 01/17/19 at 21:00 Oxycodone HCl (Oxycontin) 10 mg BID PO Last administered on 01/24/19 09:55; Admin Dose 10 MG; Start 01/18/19 at 15:00 Furosemide (Lasix) 20 mg BID DIURETICS IV Last administered on 01/24/19 06:48; Admin Dose 20 MG; Start 01/21/19 at 18:30 Ferric Sodium Gluconate Complex 125 mg/Sodium Chloride 110 ml @ 110 mls/hr DAILY@1300 IVPB Last administered on 01/24/19 12:12; Admin Dose 110 MLS/HR; Start 01/22/19 at 13:00; Stop 01/26/19 at 13:59 Hydromorphone HCl (Dilaudid) 0.5 mg Q4H PRN IV SEVERE PAIN LEVEL 7-10 Last administered on 01/24/19 13:44; Admin Dose 0.5 MG; Start 01/22/19 at 13:00 Vancomycin HCl 250 ml @ 125 mls/hr Q12H IVPB Last administered on 01/24/19 04:24; Admin Dose 125 MLS/HR; Start 01/22/19 at 16:00 Miscellaneous Information (*Rx Drug Level Order Reminder*) VANCOMYCIN TROUGH AT 1500 ONCE ONCE XX ; Start 01/24/19 at 15:00; Stop 01/24/19 at 15:01 MIGUEL WADE MD January 24, 2019 13:49
--- NOTE | 2019-01-24 19:47 | CONS ---
Assessment/Plan Assessment/Plan Assessment/Plan (Daily) Status post debridement debridement the right human chronic wound Severe peripheral vascular disease status post angioplasty times two, hyperkalemia hypertension coronary artery disease status post coronary artery bypass graft, cardiomyopathy with an ejection fraction 25% Severe peripheral vascular disease resulting in uncontrolled pain with elevation of his leg with light dependent pain is almost 100% resolved. At this time our switches current pain control medication to OxyContin low dose continue with this as needed dose of the Dilaudid force for the control of his pain relief throughout the day. His BUN and creatinine are normal but I will follow to make sure that is renal function does not deteriorate on OxyContin. Long discussion with patient will not change his current pain control me dications he understands and he states that his pain is improving 40% since he has been here. Consultation Date/Type/Reason Admit Date/Time January 09, 2019 at 18:17 Initial Consult Date 01/16/19 Requesting Provider: KRISTIN PRYOR MD Date/Time of Note DATE: 01/24/19 TIME: 19:46 24 HR Interval Summary Free Text/Dictation Remains controlled on low-dose of IV Dilaudid and Trinity Contin. With increasing doses his blood pressure falls into the low 90s. Exam/Review of Systems Exam Vitals Vital Signs Date Temp Pulse Resp B/P (MAP) Pulse Ox O2 O2 Flow FiO2 Time Delivery Rate 01/24/19 79 16:23 01/24/19 98.3 18 96/52 (67) 98 Room Air 15:40 01/23/19 10 11:40 Intake and Output 01/23/19 01/23/19 01/24/19 1515:00 23:00 07:00 IntakeIntake Total 360 ml 900 ml 450 ml OutputOutput Total 3100 ml 800 ml BalanceBalance 360 ml -2200 ml -350 ml Constitutional: alert, oriented, well developed Psych: anxiety 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: [employer] II-XII intact, nl mental status, nl speech, nl strength Results Result Diagram: 01/24/19 0619 01/24/19 0620 Results 24hrs Laboratory Tests Test 01/23/19 21:06 01/24/19 06:19 01/24/19 06:20 01/24/19 07:58 Bedside Glucose 148 139 White Blood Count 6.8 Red Blood Count 2.96 L Hemoglobin 8.6 L Hematocrit 27.7 L Mean Corpuscular 93.6 Volume Mean Corpuscular 29.1 Hemoglobin Mean Corpuscular 31.0 L Hemoglobin Concent Red Cell 15.4 H Distribution Width Platelet Count 347 Mean Platelet Volume 10.0 Immature 0.600 H Granulocytes % Neutrophils % 51.5 Lymphocytes % 30.9 Monocytes % 11.2 H Eosinophils % 5.5 Basophils % 0.3 Nucleated Red Blood 0.0 Cells % Immature 0.040 H Granulocytes # Neutrophils # 3.5 Lymphocytes # 2.1 Monocytes # 0.8 Eosinophils # 0.4 Basophils # 0.0 Nucleated Red Blood 0.0 Cells # Sodium Level 137 Potassium Level 4.3 Chloride Level 105 Carbon Dioxide Level 29 Anion Gap 3 L Blood Urea Nitrogen 16 Creatinine 0.72 Est Glomerular > 60 Filtrat Rate mL/min Glucose Level 125 Calcium Level 9.0 Test 01/24/19 09:54 01/24/19 12:11 01/24/19 15:00 01/24/19 17:40 Bedside Glucose 257 H 210 108 Vancomycin Level 7.8 L Trough Medications Medication Current Medications Amiodarone HCl (Cordarone) 200 mg DAILY PO Last administered on 01/24/19 09:56; Admin Dose 200 MG; Start 01/10/19 at 09:00 Digoxin (Digoxin) 0.125 mg DAILY@1300 PO Last administered on 01/24/19 12:13; Admin Dose 0.125 MG; Start 01/10/19 at 13:00 Gabapentin (Neurontin) 600 mg DAILY PO Last administered on 01/24/19 09:54; Admin Dose 600 MG; Start 01/10/19 at 09:00 Empaglifozin (Jardiance) 25 mg DAILY PO Last administered on 01/24/19 09:54; Admin Dose 25 MG; Start 01/10/19 at 09:00 Linagliptin (Tradjenta) 5 mg DAILY PO Last administered on 01/24/19 09:55; Admin Dose 5 MG; Start 01/10/19 at 09:00 Diagnostic Test (Pha) (Accu-Chek) 1 ea AC MEALS AND BEDTIME XX Last administered on 01/24/19 17:42; Admin Dose 1 EA; Start 01/09/19 at 21:00 Acetaminophen (Tylenol Tab) 650 mg Q4H PRN PO MILD PAIN(1-3)OR ELEVATED TEMP; Start 01/09/19 at 20:30 Ondansetron HCl (Zofran Inj) 4 mg Q6H PRN IV NAUSEA AND/OR VOMITING Last administered on 01/14/19at 19:59; Admin Dose 4 MG; Start 01/09/19 at 20:30 Diagnostic Test (Pha) (Accu-Chek) 1 ea 02 XX Last administered on 01/23/19at 01:53; Admin Dose 1 EA; Start 01/10/19 at 02:00 Insulin Aspart (Novolog Insulin Pen) NOVOLOG *MILD* ALGORITHM WITH MEALS BEDTIME SC Last administered on 01/24/19at 12:22; Admin Dose 2 UNIT; Start 01/09/19 at 22:30 Miscellaneous Information 1 ea NOTE XX ; Start 01/09/19 at 21:30 Glucose (Glutose) 15 gm Q15M PRN PO DECREASED GLUCOSE; Start 01/09/19 at 21:30 Glucose (Glutose) 22.5 gm Q15M PRN PO DECREASED GLUCOSE; Start 01/09/19 at 21:30 Dextrose (D50w Syringe) 25 ml Q15M PRN IV DECREASED GLUCOSE; Start 01/09/19 at 21:30 Dextrose (D50w Syringe) 50 ml Q15M PRN IV DECREASED GLUCOSE; Start 01/09/19 at 21:30 Glucagon (Glucagen) 1 mg Q15M PRN IM DECREASED GLUCOSE; Start 01/09/19 at 21:30 Glucose (Glutose) 15 gm Q15M PRN BUCCAL DECREASED GLUCOSE; Start 01/09/19 at 21:30 Insulin Glargine (Lantus) 18 units QHS SC Last administered on 01/23/19at 21:16; Admin Dose 18 UNITS; Start 01/09/19 at 22:30 Carvedilol (Coreg) 3.125 mg BID PO Last administered on 01/20/19at 20:46; Admin Dose 3.125 MG; Start 01/10/19 at 21:00 Vancomycin HCl (Vanco Iv Per Pharmacy) VANCOMYCIN PER PHARMACY PER PROTOCOL XX ; Start 01/11/19 at 02:30 Lisinopril (Zestril) 2.5 mg DAILY PO Last administered on 01/18/19at 08:22; Admin Dose 2.5 MG; Start 01/13/19 at 09:00 Senna (Senokot) 1 tab DAILY PRN PO CONSTIPATION Last administered on 01/23/19 13:31; Admin Dose 1 TAB; Start 01/12/19 at 18:30 Docusate Sodium (Colace) 100 mg BID PRN PO CONSTIPATION Last administered on 01/23/19 13:31; Admin Dose 100 MG; Start 01/12/19 at 18:30 Neomycin/ Polymyxin/ Bacitracin (Neosporin Topical Oint) 1 applic DAILY TOP Last administered on 01/24/19 09:56; Admin Dose 1 APPLIC; Start 01/12/19 at 18:30 Cyanocobalamin (Vitamin B12 Inj) 1,000 mcg DAILY IM Last administered on 01/24/19 09:52; Admin Dose 1,000 MCG; Start 01/16/19 at 09:00 Pantoprazole (Protonix Tab) 40 mg DAILY@06 PO Last administered on 01/24/19 06:48; Admin Dose 40 MG; Start 01/17/19 at 06:00 Metronidazole 100 ml @ 100 mls/hr Q8 IVPB Last administered on 01/24/19 14:40; Admin Dose 100 MLS/HR; Start 01/16/19 at 22:00 Cefepime HCl 50 ml @ 100 mls/hr Q12 IVPB Last administered on 01/24/19 09:54; Admin Dose 100 MLS/HR; Start 01/17/19 at 21:00 Oxycodone HCl (Oxycontin) 10 mg BID PO Last administered on 01/24/19 09:55; Admin Dose 10 MG; Start 01/18/19 at 15:00 Furosemide (Lasix) 20 mg BID DIURETICS IV Last administered on 01/24/19 17:41; Admin Dose 20 MG; Start 01/21/19 at 18:30 Ferric Sodium Gluconate Complex 125 mg/Sodium Chloride 110 ml @ 110 mls/hr DAILY@1300 IVPB Last administered on 01/24/19 12:12; Admin Dose 110 MLS/HR; Start 01/22/19 at 13:00; Stop 01/26/19 at 13:59 Hydromorphone HCl (Dilaudid) 0.5 mg Q4H PRN IV SEVERE PAIN LEVEL 7-10 Last administered on 01/24/19 18:43; Admin Dose 0.5 MG; Start 01/22/19 at 13:00 Vancomycin HCl 1.25 gm/Sodium Chloride 250 ml @ 83.333 mls/ hr Q12H IVPB ; Start 01/25/19 at 01:00 BIGG RICHARDSON January 24, 2019 19:47
[2019-01-24] MEDS: INSULIN GLARGINE [LANTus] (100 UNITS/ML) SYG SC SCH (21:02)
[2019-01-25] VITALS (14 sets, daily range): BP systolic 78–103; BP diastolic 51–60; PULSE 63–77; RESP 18–20
[2019-01-25] MEDS: HYDROmorphONE 0.5 MG/0.5 ML SYG IV PRN ×5 (00:11→23:44)
[2019-01-25] MEDS: VANCOMYCIN HCL 1.25 GM in SOD CHLORIDE 0.9% 250 ML IVPB SCH ×2 (00:11→12:11)
[2019-01-25] MEDS: ACCU-CHEK XX SCH ×5 (02:00→21:17)
[2019-01-25] MEDS: PANTOPRAZOLE (EC) 40 MG TAB PO SCH (05:45)
[2019-01-25] MEDS: FUROSEMIDE 20 MG INJ IV SCH ×2 (05:45→17:58)
[2019-01-25] MEDS: metroNIDAZOLE 500 MG/NS (PMX) 100 ML IVPB SCH ×3 (05:46→21:57)
--- NOTE | 2019-01-25 06:47 | EN ---
Date/Time of Note Date/Time of Note DATE: 01/25/19 TIME: 06:46 Event Note Medicine Medicine Event Note EMR reviewed. I coordinated and directed care with FINANCIAL OPERATIONS CLERK yesterday via Telemediq. Please reference telemediq logs. I will review and direct care today. initiated order to have pharmacy adjust vanco dosing to achieve trough of 10-15 DENITA WOMACK MD January 25, 2019 06:47
[2019-01-25] MEDS: INSULIN ASPART [NOVOLOG] 3 ML PEN SC SCH ×4 (07:55→21:15)
[2019-01-25] MEDS: EMPAGLIFLOZIN 10 MG TABLET PO SCH (08:21)
[2019-01-25] MEDS: oxyCODONE (CR) 10 MG TAB [oxyCONTIN] PO SCH ×2 (08:21→20:57)
[2019-01-25] MEDS: CYANOCOBALAMIN 1000 MCG INJ IM SCH (08:21)
[2019-01-25] MEDS: LINAGLIPTIN 5 MG TABLET PO SCH (08:21)
[2019-01-25] MEDS: GABAPENTIN 300 MG CAP PO SCH (08:21)
[2019-01-25] MEDS: LISINOPRIL 5 MG TAB PO SCH (08:22)
[2019-01-25] MEDS: NEOMYC/POLYMYX/BACIT 30 GM OINT TOP SCH (08:22)
[2019-01-25] MEDS: AMIODARONE 200 MG TAB PO SCH (08:22)
[2019-01-25] MEDS: CEFEPIME 2GM/50 ML (PMX) 50 ML IVPB SCH ×2 (09:14→20:58)
--- NOTE | 2019-01-25 09:51 | CONS ---
Assessment/Plan Assessment/Plan Hospital Course (Demo Recall) - polymicrobial infection of non-healing ulcer of R heel. CT on 01/10/2019 did not show evidence of OM. ESR 26 on 01/09/2019 and 37 on 01/12/2019; superficial wound cx Pseudomonas, E. Coli, Enterococcus (isolated from broth only), scant Proteus, and scant CoNS - s/p Debridement of the right calcaneal ulceration 01/13/2019; intraop cx grew E. Coli, Proteus, and Enterococcus - chronic wound of R heel, in the past the wound culture grew E. coli - h/o OM of R foot, h/o 6 weeks of IV vancomycin and ceftriaxone in 2018. 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 Coli and Proteus. PHOEBE Wyman spoke with [facility] who confirmed sensis of Cefepime to E. Coli and Proteus. E.coli is resistant to Amp-sulbactam - Continue IV vancomycin (01/11/2019-) - Continue Flagyl IV (01/16/19 -) - Await EGD report - Will likely require 4-6 weeks abx - Hypotension s/p Dilaudid + Lasix - Fall precautions, and recheck BP Plan was d/w patient and KAY Joseph verbally, and with Dr. Urbano via telem[employer] messaging. Thank you Consultation Date/Type/Reason Admit Date/Time January 09, 2019 at 18:17 Initial Consult Date 01/10/19 Type of Consult ID Requesting Provider: KRISTIN PRYOR MD Date/Time of Note DATE: 01/25/19 TIME: 09:48 24 HR Interval Summary Free Text/Dictation The patient rec'd dilaudid and lasix at same time this am and is now hypotensive. Documented BP 0732 78/51, rechecked and is in 80s, slowly improving. The patient reports he is asymptomatic and without dizziness. He is laying in bed resting. Fall precautions were reinforced and RN to recheck BP shortly. Detailed Summary Eyes: no complaints ENT: no complaints Respiratory: no complaints Cardiovascular: no complaints Gastrointestinal: no complaints Genitourinary: no complaints Musculoskeletal: swelling (BLE edema, R foot swelling), other (RLE dressing - pt states planned for tomorrow for another debridement) Skin: other (as per musculo) Neurologic: no complaints, other (pt verbalizes he will not get oob, will call nurse for assistance); No confusion, No dizziness, No headache, No syncope Endocrine: no complaints Lymphatic: no complaints Psychological: no complaints, nl mood/affect Immunologic: no complaints Exam/Review of Systems Exam Vitals Vital Signs Date Temp Pulse Resp B/P (MAP) Pulse Ox O2 O2 Flow FiO2 Time Delivery Rate 01/25/19 70 08:00 01/25/19 97.7 18 78/51 (60) 98 Room Air 07:32 01/23/19 10 11:40 Allergies Coded Allergies No Known Allergy (Unverified01/09/19) Intake and Output 01/24/19 01/24/19 01/25/19 1414:59 22:59 06:59 IntakeIntake Total 480 ml OutputOutput Total 800 ml BalanceBalance -320 ml Exam Constitutional: alert, oriented, well developed, other (laying in bed sleeping, easily awakened with verbal stimuli) Psych: no complaints, nl mood/affect Head: normocephalic, atraumatic Eyes: nl conjunctiva, nl lids, nl sclera ENMT: nl external ears & nose, nl nasal mucosa & septum, mucosa pink and moist (no thrush) Neck: supple, non-tender Respiratory: clear to auscultation, normal air movement; No labored breathing, No wheezing Cardiovascular: regular rate and rhythm, nl pulses, edema (right foot swelling), other (Right 3-lumen chest central line, site is c/d/i) Gastrointestinal: soft, non-tender, bowel sounds (normoactive); No distended, No firm, No tender Genitourinary - Male: other (urinal at bedside containing clear yellow urine) Extremities: normal pulses, other (right foot wrapped with a c/d/i dressing) 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, nl mental status, nl speech, nl strength Skin: nl turgor; No rash or lesions Results Result Diagram: 01/24/1961801/24/19619 Results 24hrs Laboratory Tests Test 01/24/19 09:54 01/24/19 12:11 01/24/19 15:00 01/24/19 17:40 Bedside Glucose 257 H 210 108 Vancomycin Level 7.8 L Trough Test 01/24/19 20:51 01/25/19 08:20 Bedside Glucose 176 122 Medications Medication Current Medications Amiodarone HCl (Cordarone) 200 mg DAILY PO Last administered on 01/24/19 09:56; Admin Dose 200 MG; Start 01/10/19 at 09:00 Digoxin (Digoxin) 0.125 mg DAILY@1300 PO Last administered on 01/24/19 12:13; Admin Dose 0.125 MG; Start 01/10/19 at 13:00 Gabapentin (Neurontin) 600 mg DAILY PO Last administered on 01/25/19 08:21; Admin Dose 600 MG; Start 01/10/19 at 09:00 Empaglifozin (Jardiance) 25 mg DAILY PO Last administered on 01/25/19 08:21; Admin Dose 25 MG; Start 01/10/19 at 09:00 Linagliptin (Tradjenta) 5 mg DAILY PO Last administered on 01/25/19 08:21; Admin Dose 5 MG; Start 01/10/19 at 09:00 Diagnostic Test (Pha) (Accu-Chek) 1 ea AC MEALS AND BEDTIME XX Last administered on 01/25/19 08:20; Admin Dose 1 EA; Start 01/09/19 at 21:00 Acetaminophen (Tylenol Tab) 650 mg Q4H PRN PO MILD PAIN(1-3)OR ELEVATED TEMP; Start 01/09/19 at 20:30 Ondansetron HCl (Zofran Inj) 4 mg Q6H PRN IV NAUSEA AND/OR VOMITING Last administered on 01/14/19 19:59; Admin Dose 4 MG; Start 01/09/19 at 20:30 Diagnostic Test (Pha) (Accu-Chek) 1 ea 02 XX Last administered on 01/23/19 01:53; Admin Dose 1 EA; Start 01/10/19 at 02:00 Insulin Aspart (Novolog Insulin Pen) NOVOLOG *MILD* ALGORITHM WITH MEALS BEDTIME SC Last administered on 01/24/19at 12:22; Admin Dose 2 UNIT; Start 01/09/19 at 22:30 Miscellaneous Information 1 ea NOTE XX ; Start 01/09/19 at 21:30 Glucose (Glutose) 15 gm Q15M PRN PO DECREASED GLUCOSE; Start 01/09/19 at 21:30 Glucose (Glutose) 22.5 gm Q15M PRN PO DECREASED GLUCOSE; Start 01/09/19 at 21:30 Dextrose (D50w Syringe) 25 ml Q15M PRN IV DECREASED GLUCOSE; Start 01/09/19 at 21:30 Dextrose (D50w Syringe) 50 ml Q15M PRN IV DECREASED GLUCOSE; Start 01/09/19 at 21:30 Glucagon (Glucagen) 1 mg Q15M PRN IM DECREASED GLUCOSE; Start 01/09/19 at 21:30 Glucose (Glutose) 15 gm Q15M PRN BUCCAL DECREASED GLUCOSE; Start 01/09/19 at 21:30 Insulin Glargine (Lantus) 18 units QHS SC Last administered on 01/24/19at 21:02; Admin Dose 18 UNITS; Start 01/09/19 at 22:30 Carvedilol (Coreg) 3.125 mg BID PO Last administered on 01/20/19at 20:46; Admin Dose 3.125 MG; Start 01/10/19 at 21:00 Vancomycin HCl (Vanco Iv Per Pharmacy) VANCOMYCIN PER PHARMACY PER PROTOCOL XX ; Start 01/11/19 at 02:30 Lisinopril (Zestril) 2.5 mg DAILY PO Last administered on 01/18/19at 08:22; Admin Dose 2.5 MG; Start 01/13/19 at 09:00 Senna (Senokot) 1 tab DAILY PRN PO CONSTIPATION Last administered on 01/23/19at 13:31; Admin Dose 1 TAB; Start 01/12/19 at 18:30 Docusate Sodium (Colace) 100 mg BID PRN PO CONSTIPATION Last administered on 01/23/19 13:31; Admin Dose 100 MG; Start 01/12/19 at 18:30 Neomycin/ Polymyxin/ Bacitracin (Neosporin Topical Oint) 1 applic DAILY TOP Last administered on 01/25/19 08:22; Admin Dose 1 APPLIC; Start 01/12/19 at 18:30 Cyanocobalamin (Vitamin B12 Inj) 1,000 mcg DAILY IM Last administered on 01/25/19 08:21; Admin Dose 1,000 MCG; Start 01/16/19 at 09:00 Pantoprazole (Protonix Tab) 40 mg DAILY@06 PO Last administered on 01/25/19 05:45; Admin Dose 40 MG; Start 01/17/19 at 06:00 Metronidazole 100 ml @ 100 mls/hr Q8 IVPB Last administered on 01/25/19 05:46; Admin Dose 100 MLS/HR; Start 01/16/19 at 22:00 Cefepime HCl 50 ml @ 100 mls/hr Q12 IVPB Last administered on 01/25/19 09:14; Admin Dose 100 MLS/HR; Start 01/17/19 at 21:00 Oxycodone HCl (Oxycontin) 10 mg BID PO Last administered on 01/24/19 20:53; Admin Dose 10 MG; Start 01/18/19 at 15:00 Furosemide (Lasix) 20 mg BID DIURETICS IV Last administered on 01/25/19 05:45; Admin Dose 20 MG; Start 01/21/19 at 18:30 Ferric Sodium Gluconate Complex 125 mg/Sodium Chloride 110 ml @ 110 mls/hr DAILY@1300 IVPB Last administered on 01/24/19 12:12; Admin Dose 110 MLS/HR; Start 01/22/19 at 13:00; Stop 01/26/19 at 13:59 Hydromorphone HCl (Dilaudid) 0.5 mg Q4H PRN IV SEVERE PAIN LEVEL 7-10 Last administered on 01/25/19 05:45; Admin Dose 0.5 MG; Start 01/22/19 at 13:00 Vancomycin HCl 1.25 gm/Sodium Chloride 250 ml @ 83.333 mls/ hr Q12H IVPB Last administered on 01/25/19 00:11; Admin Dose 83.333 MLS/HR; Start 01/25/19 at 01:00 FELICITY SORTO NP January 25, 2019 09:51
--- NOTE | 2019-01-25 11:49 | PN ---
Date/Time of Note Date/Time of Note DATE: 01/25/19 TIME: 11:49 Assessment/Plan VTE Prophylaxis Risk score (from Ns)>0 risk: 3 SCD applied (from [facility] [place]): No SCD contraindicated: other Pharmacological prophylaxis: LMWH Lines/Catheters IV Catheter Type (from [facility]): Central Line Central line still needed: Yes Urinary Cath still in place: No Assessment/Plan Hospital Course 1. Right heel necrotic wound. 2. 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 3. Coronary artery disease, status post coronary artery bypass graft. 4. Status post AICD. 5. Hypertension. 6. Diabetes. Result Diagram: 01/24/19 0619 01/24/19 0620 Results 24hrs Laboratory Tests Test 01/24/19 12:11 01/24/19 15:00 01/24/19 17:40 01/24/19 20:51 Bedside Glucose 210 108 176 Vancomycin Level 7.8 L Trough Test 01/25/19 08:20 Bedside Glucose 122 Subjective 24 Hr Interval Summary Free Text/Dictation Patient has pain in legs Exam/Review of Systems Exam Vitals Vital Signs Date Temp Pulse Resp B/P (MAP) Pulse Ox O2 O2 Flow FiO2 Time Delivery Rate 01/25/19 98.7 77 18 96/52 (67) 98 Room Air 11:35 01/23/19 10 11:40 Intake and Output 01/24/19 01/24/19 01/25/19 1414:59 22:59 06:59 IntakeIntake Total 480 ml OutputOutput Total 800 ml BalanceBalance -320 ml Constitutional: well developed Head: normocephalic, atraumatic Neck: supple Respiratory: clear to auscultation Cardiovascular: regular rate and rhythm Gastrointestinal: soft, non-tender Extremities: normal pulses Results Results 24hrs Laboratory Tests Test 01/24/19 12:11 01/24/19 15:00 01/24/19 17:40 01/24/19 20:51 Bedside Glucose 210 108 176 Vancomycin Level 7.8 L Trough Test 01/25/19 08:20 Bedside Glucose 122 Medications Medication Current Medications Amiodarone HCl (Cordarone) 200 mg DAILY PO Last administered on 01/24/19at 09:56; Admin Dose 200 MG; Start 01/10/19 at 09:00 Digoxin (Digoxin) 0.125 mg DAILY@1300 PO Last administered on 01/24/19 12:13; Admin Dose 0.125 MG; Start 01/10/19 at 13:00 Gabapentin (Neurontin) 600 mg DAILY PO Last administered on 01/25/19 08:21; Admin Dose 600 MG; Start 01/10/19 at 09:00 Empaglifozin (Jardiance) 25 mg DAILY PO Last administered on 01/25/19 08:21; Admin Dose 25 MG; Start 01/10/19 at 09:00 Linagliptin (Tradjenta) 5 mg DAILY PO Last administered on 01/25/19 08:21; Admin Dose 5 MG; Start 01/10/19 at 09:00 Diagnostic Test (Pha) (Accu-Chek) 1 ea AC MEALS AND BEDTIME XX Last administered on 01/25/19 08:20; Admin Dose 1 EA; Start 01/09/19 at 21:00 Acetaminophen (Tylenol Tab) 650 mg Q4H PRN PO MILD PAIN(1-3)OR ELEVATED TEMP; Start 01/09/19 at 20:30 Ondansetron HCl (Zofran Inj) 4 mg Q6H PRN IV NAUSEA AND/OR VOMITING Last administered on 01/14/19 19:59; Admin Dose 4 MG; Start 01/09/19 at 20:30 Diagnostic Test (Pha) (Accu-Chek) 1 ea 02 XX Last administered on 01/23/19 01:53; Admin Dose 1 EA; Start 01/10/19 at 02:00 Insulin Aspart (Novolog Insulin Pen) NOVOLOG *MILD* ALGORITHM WITH MEALS BEDTIME SC Last administered on 01/24/19 12:22; Admin Dose 2 UNIT; Start 01/09/19 at 22:30 Miscellaneous Information 1 ea NOTE XX ; Start 01/09/19 at 21:30 Glucose (Glutose) 15 gm Q15M PRN PO DECREASED GLUCOSE; Start 01/09/19 at 21:30 Glucose (Glutose) 22.5 gm Q15M PRN PO DECREASED GLUCOSE; Start 01/09/19 at 21:30 Dextrose (D50w Syringe) 25 ml Q15M PRN IV DECREASED GLUCOSE; Start 01/09/19 at 21:30 Dextrose (D50w Syringe) 50 ml Q15M PRN IV DECREASED GLUCOSE; Start 01/09/19 at 21:30 Glucagon (Glucagen) 1 mg Q15M PRN IM DECREASED GLUCOSE; Start 01/09/19 at 21:30 Glucose (Glutose) 15 gm Q15M PRN BUCCAL DECREASED GLUCOSE; Start 01/09/19 at 21:30 Insulin Glargine (Lantus) 18 units QHS SC Last administered on 01/24/19 21:02; Admin Dose 18 UNITS; Start 01/09/19 at 22:30 Carvedilol (Coreg) 3.125 mg BID PO Last administered on 01/20/19 20:46; Admin Dose 3.125 MG; Start 01/10/19 at 21:00 Vancomycin HCl (Vanco Iv Per Pharmacy) VANCOMYCIN PER PHARMACY PER PROTOCOL XX ; Start 01/11/19 at 02:30 Lisinopril (Zestril) 2.5 mg DAILY PO Last administered on 01/18/19 08:22; Admin Dose 2.5 MG; Start 01/13/19 at 09:00 Senna (Senokot) 1 tab DAILY PRN PO CONSTIPATION Last administered on 01/23/19 13:31; Admin Dose 1 TAB; Start 01/12/19 at 18:30 Docusate Sodium (Colace) 100 mg BID PRN PO CONSTIPATION Last administered on 01/23/19 13:31; Admin Dose 100 MG; Start 01/12/19 at 18:30 Neomycin/ Polymyxin/ Bacitracin (Neosporin Topical Oint) 1 applic DAILY TOP Last administered on 01/25/19 08:22; Admin Dose 1 APPLIC; Start 01/12/19 at 18:30 Cyanocobalamin (Vitamin B12 Inj) 1,000 mcg DAILY IM Last administered on 01/25 08:21; Admin Dose 1,000 MCG; Start 01/16/19 at 09:00 Pantoprazole (Protonix Tab) 40 mg DAILY@06 PO Last administered on 01/25/19 05:45; Admin Dose 40 MG; Start 01/17/19 at 06:00 Metronidazole 100 ml @ 100 mls/hr Q8 IVPB Last administered on 01/25/19 05:46; Admin Dose 100 MLS/HR; Start 01/16/19 at 22:00 Cefepime HCl 50 ml @ 100 mls/hr Q12 IVPB Last administered on 01/25/19 09:14; Admin Dose 100 MLS/HR; Start 01/17/19 at 21:00 Oxycodone HCl (Oxycontin) 10 mg BID PO Last administered on 01/24/19at 20:53; Admin Dose 10 MG; Start 01/18/19 at 15:00 Furosemide (Lasix) 20 mg BID DIURETICS IV Last administered on 01/25/19 05:45; Admin Dose 20 MG; Start 01/21/19 at 18:30 Ferric Sodium Gluconate Complex 125 mg/Sodium Chloride 110 ml @ 110 mls/hr DAILY@1300 IVPB Last administered on 01/24/19 12:12; Admin Dose 110 MLS/HR; Start 01/22/19 at 13:00; Stop 01/26/19 at 13:59 Hydromorphone HCl (Dilaudid) 0.5 mg Q4H PRN IV SEVERE PAIN LEVEL 7-10 Last administered on 01/25/19 05:45; Admin Dose 0.5 MG; Start 01/22/19 at 13:00 Vancomycin HCl 1.25 gm/Sodium Chloride 250 ml @ 83.333 mls/ hr Q12H IVPB Last administered on 01/25/19 00:11; Admin Dose 83.333 MLS/HR; Start 01/25/19 at 01 :00 PARISA VARGAS January 25, 2019 11:49
--- NOTE | 2019-01-25 11:54 | CONS ---
Consultation Date/Type/Reason Admit Date/Time January 09, 2019 at 18:17 Initial Consult Date 01/10/19 Type of Consult Cardiology Requesting Provider: KRISTIN PRYOR MD Date/Time of Note DATE: 01/25/19 TIME: 11:54 24 HR Interval Summary Free Text/Dictation VS reviewed - stable Exam/Review of Systems Vital Signs Vitals Vital Signs Date Temp Pulse Resp B/P (MAP) Pulse Ox O2 O2 Flow FiO2 Time Delivery Rate 01/25/19 98.7 77 18 96/52 (67) 98 Room Air 11:35 01/23/19 10 11:40 Intake and Output 01/24/19 01/24/19 01/25/19 1515:00 23:00 07:00 IntakeIntake Total 480 ml OutputOutput Total 800 ml BalanceBalance -320 ml Labs Result Diagram: 01/24/19 0619 01/24/19 0620 Results 24hrs Laboratory Tests Test 01/24/19 12:11 01/24/19 15:00 01/24/19 17:40 01/24/19 20:51 Bedside Glucose 210 108 176 Vancomycin Level 7.8 L Trough Test 01/25/19 08:20 Bedside Glucose 122 Medications Medications Current Medications Amiodarone HCl (Cordarone) 200 mg DAILY PO Last administered on 01/24/19 09:56; Admin Dose 200 MG; Start 01/10/19 at 09:00 Digoxin (Digoxin) 0.125 mg DAILY@1300 PO Last administered on 01/24/19 12:13; Admin Dose 0.125 MG; Start 01/10/19 at 13:00 Gabapentin (Neurontin) 600 mg DAILY PO Last administered on 01/25/19 08:21; Admin Dose 600 MG; Start 01/10/19 at 09:00 Empaglifozin (Jardiance) 25 mg DAILY PO Last administered on 01/25/19 08:21; Admin Dose 25 MG; Start 01/10/19 at 09:00 Linagliptin (Tradjenta) 5 mg DAILY PO Last administered on 01/25/19 08:21; Admin Dose 5 MG; Start 01/10/19 at 09:00 Diagnostic Test (Pha) (Accu-Chek) 1 ea AC MEALS AND BEDTIME XX Last administered on 01/25/19 08:20; Admin Dose 1 EA; Start 01/09/19 at 21:00 Acetaminophen (Tylenol Tab) 650 mg Q4H PRN PO MILD PAIN(1-3)OR ELEVATED TEMP; Start 01/09/19 at 20:30 Ondansetron HCl (Zofran Inj) 4 mg Q6H PRN IV NAUSEA AND/OR VOMITING Last administered on 01/14/19at 19:59; Admin Dose 4 MG; Start 01/09/19 at 20:30 Diagnostic Test (Pha) (Accu-Chek) 1 ea 02 XX Last administered on 01/23/19at 01:53; Admin Dose 1 EA; Start 01/10/19 at 02:00 Insulin Aspart (Novolog Insulin Pen) NOVOLOG *MILD* ALGORITHM WITH MEALS BEDTIME SC Last administered on 01/24/19at 12:22; Admin Dose 2 UNIT; Start 01/09/19 at 22:30 Miscellaneous Information 1 ea NOTE XX ; Start 01/09/19 at 21:30 Glucose (Glutose) 15 gm Q15M PRN PO DECREASED GLUCOSE; Start 01/09/19 at 21:30 Glucose (Glutose) 22.5 gm Q15M PRN PO DECREASED GLUCOSE; Start 01/09/19 at 21:30 Dextrose (D50w Syringe) 25 ml Q15M PRN IV DECREASED GLUCOSE; Start 01/09/19 at 21:30 Dextrose (D50w Syringe) 50 ml Q15M PRN IV DECREASED GLUCOSE; Start 01/09/19 at 21:30 Glucagon (Glucagen) 1 mg Q15M PRN IM DECREASED GLUCOSE; Start 01/09/19 at 21:30 Glucose (Glutose) 15 gm Q15M PRN BUCCAL DECREASED GLUCOSE; Start 01/09/19 at 21:30 Insulin Glargine (Lantus) 18 units QHS SC Last administered on 01/24/19at 21:02; Admin Dose 18 UNITS; Start 01/09/19 at 22:30 Carvedilol (Coreg) 3.125 mg BID PO Last administered on 01/20/19at 20:46; Admin Dose 3.125 MG; Start 01/10/19 at 21:00 Vancomycin HCl (Vanco Iv Per Pharmacy) VANCOMYCIN PER PHARMACY PER PROTOCOL XX ; Start 01/11/19 at 02:30 Lisinopril (Zestril) 2.5 mg DAILY PO Last administered on 01/18/19 08:22; Admin Dose 2.5 MG; Start 01/13/19 at 09:00 Senna (Senokot) 1 tab DAILY PRN PO CONSTIPATION Last administered on 01/23/19 13:31; Admin Dose 1 TAB; Start 01/12/19 at 18:30 Docusate Sodium (Colace) 100 mg BID PRN PO CONSTIPATION Last administered on 01/23/19 13:31; Admin Dose 100 MG; Start 01/12/19 at 18:30 Neomycin/ Polymyxin/ Bacitracin (Neosporin Topical Oint) 1 applic DAILY TOP Last administered on 01/25/19 08:22; Admin Dose 1 APPLIC; Start 01/12/19 at 18:30 Cyanocobalamin (Vitamin B12 Inj) 1,000 mcg DAILY IM Last administered on 01/25/19 08:21; Admin Dose 1,000 MCG; Start 01/16/19 at 09:00 Pantoprazole (Protonix Tab) 40 mg DAILY@06 PO Last administered on 01/25/19 05:45; Admin Dose 40 MG; Start 01/17/19 at 06:00 Metronidazole 100 ml @ 100 mls/hr Q8 IVPB Last administered on 01/25/19 05:46; Admin Dose 100 MLS/HR; Start 01/16/19 at 22:00 Cefepime HCl 50 ml @ 100 mls/hr Q12 IVPB Last administered on 01/25/19 09:14; Admin Dose 100 MLS/HR; Start 01/17/19 at 21:00 Oxycodone HCl (Oxycontin) 10 mg BID PO Last administered on 01/24/19 20:53; Admin Dose 10 MG; Start 01/18/19 at 15:00 Furosemide (Lasix) 20 mg BID DIURETICS IV Last administered on 01/25/19 05:45; Admin Dose 20 MG; Start 01/21/19 at 18:30 Ferric Sodium Gluconate Complex 125 mg/Sodium Chloride 110 ml @ 110 mls/hr DAILY@1300 IVPB Last administered on 01/24/19 12:12; Admin Dose 110 MLS/HR; Start 01/22/19 at 13:00; Stop 01/26/19 at 13:59 Hydromorphone HCl (Dilaudid) 0.5 mg Q4H PRN IV SEVERE PAIN LEVEL 7-10 Last administered on 01/25/19at 05:45; Admin Dose 0.5 MG; Start 01/22/19 at 13:00 Vancomycin HCl 1.25 gm/Sodium Chloride 250 ml @ 83.333 mls/ hr Q12H IVPB Last administered on 01/25/19at 00:11; Admin Dose 83.333 MLS/HR; Start 01/25/19 at 01:00 MIGUEL WADE MD January 25, 2019 11:54
[2019-01-25] MEDS: DIGOXIN 0.125 MG TAB PO SCH (12:11)
[2019-01-25] MEDS: SOD FERRIC GLUC COMPLX 125 MG in SOD CHLORIDE 0.9% 100 ML IVPB SCH (12:11)
--- NOTE | 2019-01-25 12:13 | CONS ---
Assessment/Plan Assessment/Plan Assessment/Plan (Daily) 63-year-old gentleman with history of coronary artery disease, status post CABG, also status post AICD placement, hypertension, diabetes, peripheral vascular disease, status post aortogram and right lower extremity runoff and percutaneous angioplasty of the posterior tibial artery and anterior tibial artery in 10/2018. Patient has a worsening RLE heel wound and thus admitted for sepsis. 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 Patient will need surgery in the future to remove the tumor. -Hg currently stable -likely 2/2 GI bleed -continue to hold all blood thinners -CT A/P does not reveal evidence of bleed -f/u endoscopy. pt was found with a T3.5 cm mass/filling defect arising along the lesser curvature of the stomach, -Transfuse to keep hgb > 7. Patient had a transfusion 01/15/2019; but did not respond appropriately. -Iron studies are normal but vitamin b12 is low and thus initiated vitamin b12 1000 mcg weekly, will continue Patient seen in collaboration with Dr Hancock/ [facility] staff Consultation Date/Type/Reason Admit Date/Time January 09, 2019 at 18:17 Initial Consult Date 01/16/19 Type of Consult ONCOLOGY/HEMATOLOGY Reason for Consultation Anemia/ Gastric mass Requesting Provider: KRISTIN PRYOR MD Date/Time of Note DATE: 01/25/19 TIME: 12:12 24 HR Interval Summary Free Text/Dictation resting in bed effective pain control denies any GI bleeding no new events overnight dw staff Constitutional: requiring O2 Detailed Summary Eyes: no complaints ENT: no complaints Respiratory: no complaints Cardiovascular: no complaints Gastrointestinal: no complaints Genitourinary: no complaints Musculoskeletal: bone/joint pain, restricted range of motion Skin: no complaints Neurologic: no complaints Endocrine: no complaints Lymphatic: no complaints Psychological: nl mood/affect Immunologic: no complaints Exam/Review of Systems Exam Vitals Vital Signs Date Temp Pulse Resp B/P (MAP) Pulse Ox O2 O2 Flow FiO2 Time Delivery Rate 01/25/19 98.7 77 18 96/52 (67) 98 Room Air 11:35 01/23/19 10 11:40 Intake and Output 01/24/19 01/24/19 01/25/19 1515:00 23:00 07:00 IntakeIntake Total 480 ml OutputOutput Total 800 ml BalanceBalance -320 ml Constitutional: alert, oriented, well developed, obese Head: atraumatic Eyes: nl lids, nl sclera ENMT: nl external ears & nose Neck: non-tender Respiratory: clear to auscultation Cardiovascular: nl pulses, other (s1s2) Gastrointestinal: soft, non-tender Musculoskeletal: joint tenderness, range of motion 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: nl speech, other (alert/respsonsive) Results Result Diagram: 01/24/19 0619 01/24/19 0620 Results 24hrs Laboratory Tests Test 01/24/19 15:00 01/24/19 17:40 01/24/19 20:51 01/25/19 08:20 Vancomycin Level 7.8 L Trough Bedside Glucose 108 176 122 Test 01/25/19 12:06 Bedside Glucose 148 Medications Medication Current Medications Amiodarone HCl (Cordarone) 200 mg DAILY PO Last administered on 01/24/19 09:56; Admin Dose 200 MG; Start 01/10/19 at 09:00 Digoxin (Digoxin) 0.125 mg DAILY@1300 PO Last administered on 01/24/19 12:13; Admin Dose 0.125 MG; Start 01/10/19 at 13:00 Gabapentin (Neurontin) 600 mg DAILY PO Last administered on 01/25/19 08:21; Admin Dose 600 MG; Start 01/10/19 at 09:00 Empaglifozin (Jardiance) 25 mg DAILY PO Last administered on 01/25/19 08:21; Admin Dose 25 MG; Start 01/10/19 at 09:00 Linagliptin (Tradjenta) 5 mg DAILY PO Last administered on 01/25/19 08:21; Admin Dose 5 MG; Start 01/10/19 at 09:00 Diagnostic Test (Pha) (Accu-Chek) 1 ea AC MEALS AND BEDTIME XX Last administered on 01/25/19 08:20; Admin Dose 1 EA; Start 01/09/19 at 21:00 Acetaminophen (Tylenol Tab) 650 mg Q4H PRN PO MILD PAIN(1-3)OR ELEVATED TEMP; Start 01/09/19 at 20:30 Ondansetron HCl (Zofran Inj) 4 mg Q6H PRN IV NAUSEA AND/OR VOMITING Last administered on 01/14/19 19:59; Admin Dose 4 MG; Start 01/09/19 at 20:30 Diagnostic Test (Pha) (Accu-Chek) 1 ea 02 XX Last administered on 01/23/19at 01:53; Admin Dose 1 EA; Start 01/10/19 at 02:00 Insulin Aspart (Novolog Insulin Pen) NOVOLOG *MILD* ALGORITHM WITH MEALS BEDTIME SC Last administered on 01/24/19at 12:22; Admin Dose 2 UNIT; Start 01/09/19 at 22:30 Miscellaneous Information 1 ea NOTE XX ; Start 01/09/19 at 21:30 Glucose (Glutose) 15 gm Q15M PRN PO DECREASED GLUCOSE; Start 01/09/19 at 21:30 Glucose (Glutose) 22.5 gm Q15M PRN PO DECREASED GLUCOSE; Start 01/09/19 at 21:30 Dextrose (D50w Syringe) 25 ml Q15M PRN IV DECREASED GLUCOSE; Start 01/09/19 at 21:30 Dextrose (D50w Syringe) 50 ml Q15M PRN IV DECREASED GLUCOSE; Start 01/09/19 at 21:30 Glucagon (Glucagen) 1 mg Q15M PRN IM DECREASED GLUCOSE; Start 01/09/19 at 21:30 Glucose (Glutose) 15 gm Q15M PRN BUCCAL DECREASED GLUCOSE; Start 01/09/19 at 21:30 Insulin Glargine (Lantus) 18 units QHS SC Last administered on 01/24/19at 21:02; Admin Dose 18 UNITS; Start 01/09/19 at 22:30 Carvedilol (Coreg) 3.125 mg BID PO Last administered on 01/20/19at 20:46; Admin Dose 3.125 MG; Start 01/10/19 at 21:00 Vancomycin HCl (Vanco Iv Per Pharmacy) VANCOMYCIN PER PHARMACY PER PROTOCOL XX ; Start 01/11/19 at 02:30 Lisinopril (Zestril) 2.5 mg DAILY PO Last administered on 01/18/19 08:22; Admin Dose 2.5 MG; Start 01/13/19 at 09:00 Senna (Senokot) 1 tab DAILY PRN PO CONSTIPATION Last administered on 5/17/19at 13:31; Admin Dose 1 TAB; Start 01/12/19 at 18:30 Docusate Sodium (Colace) 100 mg BID PRN PO CONSTIPATION Last administered on 01/23/19 13:31; Admin Dose 100 MG; Start 01/12/19 at 18:30 Neomycin/ Polymyxin/ Bacitracin (Neosporin Topical Oint) 1 applic DAILY TOP Last administered on 01/25/19 08:22; Admin Dose 1 APPLIC; Start 01/12/19 at 18:30 Cyanocobalamin (Vitamin B12 Inj) 1,000 mcg DAILY IM Last administered on 01/25/19 08:21; Admin Dose 1,000 MCG; Start 01/16/19 at 09:00 Pantoprazole (Protonix Tab) 40 mg DAILY@06 PO Last administered on 01/25/19 05:45; Admin Dose 40 MG; Start 01/17/19 at 06:00 Metronidazole 100 ml @ 100 mls/hr Q8 IVPB Last administered on 01/25/19 05:46; Admin Dose 100 MLS/HR; Start 01/16/19 at 22:00 Cefepime HCl 50 ml @ 100 mls/hr Q12 IVPB Last administered on 01/25/19 09:14; Admin Dose 100 MLS/HR; Start 01/17/19 at 21:00 Oxycodone HCl (Oxycontin) 10 mg BID PO Last administered on 01/24/19 20:53; Admin Dose 10 MG; Start 01/18/19 at 15:00 Furosemide (Lasix) 20 mg BID DIURETICS IV Last administered on 01/25/19 05:45; Admin Dose 20 MG; Start 01/21/19 at 18:30 Ferric Sodium Gluconate Complex 125 mg/Sodium Chloride 110 ml @ 110 mls/hr DAILY@1300 IVPB Last administered on 01/24/19 12:12; Admin Dose 110 MLS/HR; Start 01/22/19 at 13:00; Stop 01/26/19 at 13:59 Hydromorphone HCl (Dilaudid) 0.5 mg Q4H PRN IV SEVERE PAIN LEVEL 7-10 Last administered on 01/25/19 05:45; Admin Dose 0.5 MG; Start 01/22/19 at 13:00 Vancomycin HCl 1.25 gm/Sodium Chloride 250 ml @ 83.333 mls/ hr Q12H IVPB Last administered on 01/25/19at 00:11; Admin Dose 83.333 MLS/HR; Start 01/25/19 at 01:00 MARTINE PUENTES January 25, 2019 12:13
--- NOTE | 2019-01-25 13:51 | CONS ---
Assessment/Plan Assessment/Plan Hospital Course (Demo Recall) 63 yo male with anemia 1. Right heel necrotic wound. 2. Cardiomyopathy with ejection fraction of 20% to 30%. 3. Peripheral vascular disease status post PCI, right lower extremity. 4. Coronary artery disease status post coronary artery bypass graft. 5. Status post automatic implantable cardioverter-defibrillator. 6. Hypertension. 7. Diabetes mellitus. 8. Anemia. Patient has a significant drop in hematocrit. So far, clinically, there is no evidence of obvious GI bleeding. 9. Ovoid mass or filling defect arising from lesser curvature of stomach. -GIST tumor 10. Pt is pre op for peripheral artery bypass surgery which is on hold for now. Plan EUS with FNA as outpatient to confirm GIST tumor diagnosis. Will likely need surgical removal of tumor in future. Pt examined and plan of care discussed with Dr Roberts Consultation Date/Type/Reason Admit Date/Time January 09, 2019 at 18:17 Initial Consult Date 01/16/19 Requesting Provider: KRISTIN PRYOR MD Date/Time of Note DATE: 01/25/19 TIME: 13:48 Exam/Review of Systems Exam Vitals Vital Signs Date Temp Pulse Resp B/P (MAP) Pulse Ox O2 O2 Flow FiO2 Time Delivery Rate 01/25/19 72 12:00 01/25/19 98.7 18 96/52 (67) 98 Room Air 11:35 01/23/19 10 11:40 Intake and Output 01/24/19 01/24/19 01/25/19 1515:00 23:00 07:00 IntakeIntake Total 480 ml OutputOutput Total 800 ml BalanceBalance -320 ml Constitutional: alert, oriented Psych: no complaints Eyes: nl sclera, PERRL Respiratory: clear to auscultation Cardiovascular: regular rate and rhythm Gastrointestinal: soft, non-tender, bowel sounds 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: nl mental status Results Result Diagram: 01/24/19 0619 01/24/19 0620 Results 24hrs Laboratory Tests Test 01/24/19 15:00 01/24/19 17:40 01/24/19 20:51 01/25/19 08:20 Vancomycin Level 7.8 L Trough Bedside Glucose 108 176 122 Test 01/25/19 12:06 Bedside Glucose 148 Medications Medication Current Medications Amiodarone HCl (Cordarone) 200 mg DAILY PO Last administered on 01/24/19 09:56; Admin Dose 200 MG; Start 01/10/19 at 09:00 Digoxin (Digoxin) 0.125 mg DAILY@1300 PO Last administered on 01/25/19 12:11; Admin Dose 0.125 MG; Start 01/10/19 at 13:00 Gabapentin (Neurontin) 600 mg DAILY PO Last administered on 01/25/19 08:21; Admin Dose 600 MG; Start 01/10/19 at 09:00 Empaglifozin (Jardiance) 25 mg DAILY PO Last administered on 01/25/19 08:21; Admin Dose 25 MG; Start 01/10/19 at 09:00 Linagliptin (Tradjenta) 5 mg DAILY PO Last administered on 01/25/19 08:21; Admin Dose 5 MG; Start 01/10/19 at 09:00 Diagnostic Test (Pha) (Accu-Chek) 1 ea AC MEALS AND BEDTIME XX Last administered on 01/25/19 11:20; Admin Dose 1 EA; Start 01/09/19 at 21:00 Acetaminophen (Tylenol Tab) 650 mg Q4H PRN PO MILD PAIN(1-3)OR ELEVATED TEMP; Start 01/09/19 at 20:30 Ondansetron HCl (Zofran Inj) 4 mg Q6H PRN IV NAUSEA AND/OR VOMITING Last administered on 01/14/19 19:59; Admin Dose 4 MG; Start 01/09/19 at 20:30 Diagnostic Test (Pha) (Accu-Chek) 1 ea 02 XX Last administered on 01/23/19 01:53; Admin Dose 1 EA; Start 01/10/19 at 02:00 Insulin Aspart (Novolog Insulin Pen) NOVOLOG *MILD* ALGORITHM WITH MEALS BE DTIME SC Last administered on 01/25/19 12:27; Admin Dose 1 UNIT; Start 01/09/19 at 22:30 Miscellaneous Information 1 ea NOTE XX ; Start 01/09/19 at 21:30 Glucose (Glutose) 15 gm Q15M PRN PO DECREASED GLUCOSE; Start 01/09/19 at 21:30 Glucose (Glutose) 22.5 gm Q15M PRN PO DECREASED GLUCOSE; Start 01/09/19 at 21:30 Dextrose (D50w Syringe) 25 ml Q15M PRN IV DECREASED GLUCOSE; Start 01/09/19 at 21:30 Dextrose (D50w Syringe) 50 ml Q15M PRN IV DECREASED GLUCOSE; Start 01/09/19 at 21:30 Glucagon (Glucagen) 1 mg Q15M PRN IM DECREASED GLUCOSE; Start 01/09/19 at 21:30 Glucose (Glutose) 15 gm Q15M PRN BUCCAL DECREASED GLUCOSE; Start 01/09/19 at 21:30 Insulin Glargine (Lantus) 18 units QHS SC Last administered on 01/24/19 21:02; Admin Dose 18 UNITS; Start 01/09/19 at 22:30 Carvedilol (Coreg) 3.125 mg BID PO Last administered on 01/20/19 20:46; Admin Dose 3.125 MG; Start 01/10/19 at 21:00 Vancomycin HCl (Vanco Iv Per Pharmacy) VANCOMYCIN PER PHARMACY PER PROTOCOL XX ; Start 01/11/19 at 02:30 Lisinopril (Zestril) 2.5 mg DAILY PO Last administered on 01/18/19 08:22; Admin Dose 2.5 MG; Start 01/13/19 at 09:00 Senna (Senokot) 1 tab DAILY PRN PO CONSTIPATION Last administered on 01/23/19 13:31; Admin Dose 1 TAB; Start 01/12/19 at 18:30 Docusate Sodium (Colace) 100 mg BID PRN PO CONSTIPATION Last administered on 01/23/19 13:31; Admin Dose 100 MG; Start 01/12/19 at 18:30 Neomycin/ Polymyxin/ Bacitracin (Neosporin Topical Oint) 1 applic DAILY TOP Last administered on 01/25/19 08:22; Admin Dose 1 APPLIC; Start 01/12/19 at 18:30 Cyanocobalamin (Vitamin B12 Inj) 1,000 mcg DAILY IM Last administered on 01/25/19 08:21; Admin Dose 1,000 MCG; Start 01/16/19 at 09:00 Pantoprazole (Protonix Tab) 40 mg DAILY@06 PO Last administered on 01/25/19 05:45; Admin Dose 40 MG; Start 01/17/19 at 06:00 Metronidazole 100 ml @ 100 mls/hr Q8 IVPB Last administered on 01/25/19 05:46; Admin Dose 100 MLS/HR; Start 01/16/19 at 22:00 Cefepime HCl 50 ml @ 100 mls/hr Q12 IVPB Last administered on 01/25/19 09:14; Admin Dose 100 MLS/HR; Start 01/17/19 at 21:00 Oxycodone HCl (Oxycontin) 10 mg BID PO Last administered on 01/24/19 20:53; Admin Dose 10 MG; Start 01/18/19 at 15:00 Furosemide (Lasix) 20 mg BID DIURETICS IV Last administered on 01/25/19 05:45; Admin Dose 20 MG; Start 01/21/19 at 18:30 Ferric Sodium Gluconate Complex 125 mg/Sodium Chloride 110 ml @ 110 mls/hr DAILY@1300 IVPB Last administered on 01/25/19 12:11; Admin Dose 110 MLS/HR; Start 01/22/19 at 13:00; Stop 01/26/19 at 13:59 Hydromorphone HCl (Dilaudid) 0.5 mg Q4H PRN IV SEVERE PAIN LEVEL 7-10 Last administered on 01/25/19 12:12; Admin Dose 0.5 MG; Start 01/22/19 at 13:00 Vancomycin HCl 1.25 gm/Sodium Chloride 250 ml @ 83.333 mls/ hr Q12H IVPB Last administered on 01/25/19 12:11; Admin Dose 83.333 MLS/HR; Start 01/25/19 at 01:00 TAMELA BOWMAN January 25, 2019 13:50
[2019-01-25] MEDS: SENNA TAB PO PRN (21:12)
[2019-01-25] MEDS: DOCUSATE SODIUM 100 MG CAP PO PRN (21:12)
[2019-01-25] MEDS: INSULIN GLARGINE [LANTus] (100 UNITS/ML) SYG SC SCH (21:15)
[2019-01-26] VITALS (14 sets, daily range): BP systolic 91–116; BP diastolic 52–64; PULSE 64–88; RESP 16–18
[2019-01-26] MEDS: VANCOMYCIN HCL 1.25 GM in SOD CHLORIDE 0.9% 250 ML IVPB SCH ×2 (01:04→13:52)
[2019-01-26] MEDS: ACCU-CHEK XX SCH ×5 (01:09→21:42)
[2019-01-26] MEDS: metroNIDAZOLE 500 MG/NS (PMX) 100 ML IVPB SCH ×3 (05:16→21:40)
[2019-01-26] MEDS: FUROSEMIDE 20 MG INJ IV SCH ×2 (05:27→17:16)
[2019-01-26] MEDS: PANTOPRAZOLE (EC) 40 MG TAB PO SCH (05:27)
[2019-01-26] MEDS: HYDROmorphONE 0.5 MG/0.5 ML SYG IV PRN ×4 (05:27→20:20)
[2019-01-26] MEDS: INSULIN ASPART [NOVOLOG] 3 ML PEN SC SCH ×4 (07:49→20:34)
[2019-01-26] MEDS: EMPAGLIFLOZIN 10 MG TABLET PO SCH (08:41)
[2019-01-26] MEDS: AMIODARONE 200 MG TAB PO SCH (08:42)
[2019-01-26] MEDS: GABAPENTIN 300 MG CAP PO SCH (08:42)
[2019-01-26] MEDS: CYANOCOBALAMIN 1000 MCG INJ IM SCH (08:43)
[2019-01-26] MEDS: LISINOPRIL 5 MG TAB PO SCH (08:43)
[2019-01-26] MEDS: CEFEPIME 2GM/50 ML (PMX) 50 ML IVPB SCH ×2 (08:43→20:20)
[2019-01-26] MEDS: LINAGLIPTIN 5 MG TABLET PO SCH (08:43)
[2019-01-26] MEDS: NEOMYC/POLYMYX/BACIT 30 GM OINT TOP SCH (08:44)
--- NOTE | 2019-01-26 08:52 | CONS ---
Assessment/Plan Assessment/Plan Hospital Course (Demo Recall) 63 yo male with anemia Interval hx: NO acute changes. 1. Right heel necrotic wound. 2. Cardiomyopathy with ejection fraction of 20% to 30%. 3. Peripheral vascular disease status post PCI, right lower extremity. 4. Coronary artery disease status post coronary artery bypass graft. 5. Status post automatic implantable cardioverter-defibrillator. 6. Hypertension. 7. Diabetes mellitus. 8. Anemia. Patient has a significant drop in hematocrit. So far, clinically, there is no evidence of obvious GI bleeding. 9. Ovoid mass or filling defect arising from lesser curvature of stomach. -GIST tumor 10. Pt is pre op for peripheral artery bypass surgery which is on hold for now. Plan EUS with FNA as outpatient to confirm GIST tumor diagnosis. Will likely need surgical removal of tumor in future. Spoke with patient today regarding GIST tumor. He will follow up with Dr. Roberts as outpatient. Office number of Dr. Roberts provided. Pt examined and plan of care discussed with Dr Roberts Consultation Date/Type/Reason Admit Date/Time January 09, 2019 at 18:17 Initial Consult Date 01/16/19 Requesting Provider: KRISTIN PRYOR MD Date/Time of Note DATE: 01/26/19 TIME: 08:50 Exam/Review of Systems Exam Vitals Vital Signs Date Temp Pulse Resp B/P (MAP) Pulse Ox O2 O2 Flow FiO2 Time Delivery Rate 01/26/19 66 08:11 01/26/19 98.0 18 106/57 98 07:27 (73) 01/25/19 Room Air 20:25 01/23/19 10 11:40 Intake and Output 01/25/19 01/25/19 01/26/19 1515:00 23:00 07:00 IntakeIntake Total 650 ml 850 ml OutputOutput Total 1900 ml 2100 ml BalanceBalance -1250 ml -1250 ml Constitutional: alert, oriented, well developed Psych: no complaints Head: normocephalic Eyes: nl sclera, PERRL Respiratory: normal air movement Cardiovascular: regular rate and rhythm Gastrointestinal: soft, non-tender Extremities: other (RLE in bandage) 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: nl mental status Results Result Diagram: 01/24/19 0619 01/26/19 0515 Results 24hrs Laboratory Tests Test 01/25/19 12:06 01/25/19 17:49 01/25/19 20:55 01/26/19 01:08 Bedside Glucose 148 135 190 118 Test 01/26/19 05:15 01/26/19 07:48 Blood Urea Nitrogen 17 Creatinine 0.60 L Bedside Glucose 125 Medications Medication Current Medications Amiodarone HCl (Cordarone) 200 mg DAILY PO Last administered on 01/24/19 09:56; Admin Dose 200 MG; Start 01/10/19 at 09:00 Digoxin (Digoxin) 0.125 mg DAILY@1300 PO Last administered on 01/25/19 12:11; Admin Dose 0.125 MG; Start 01/10/19 at 13:00 Gabapentin (Neurontin) 600 mg DAILY PO Last administered on 01/25/19 08:21; Admin Dose 600 MG; Start 01/10/19 at 09:00 Empaglifozin (Jardiance) 25 mg DAILY PO Last administered on 01/25/19 08:21; Admin Dose 25 MG; Start 01/10/19 at 09:00 Linagliptin (Tradjenta) 5 mg DAILY PO Last administered on 01/25/19 08:21; Admin Dose 5 MG; Start 01/10/19 at 09:00 Diagnostic Test (Pha) (Accu-Chek) 1 ea AC MEALS AND BEDTIME XX Last administered on 01/25/19 21:17; Admin Dose 1 EA; Start 01/09/19 at 21:00 Acetaminophen (Tylenol Tab) 650 mg Q4H PRN PO MILD PAIN(1-3)OR ELEVATED TEMP; Start 01/09/19 at 20:30 Ondansetron HCl (Zofran Inj) 4 mg Q6H PRN IV NAUSEA AND/OR VOMITING Last administered on 01/14/19 19:59; Admin Dose 4 MG; Start 01/09/19 at 20:30 Diagnostic Test (Pha) (Accu-Chek) 1 ea 02 XX Last administered on 01/26/19 01:09; Admin Dose 1 EA; Start 01/10/19 at 02:00 Insulin Aspart (Novolog Insulin Pen) NOVOLOG *MILD* ALGORITHM WITH MEALS BEDTIME SC Last administered on 01/25/19 21:15; Admin Dose 1 UNIT; Start 01/09/19 at 22:30 Miscellaneous Information 1 ea NOTE XX ; Start 01/09/19 at 21:30 Glucose (Glutose) 15 gm Q15M PRN PO DECREASED GLUCOSE; Start 01/09/19 at 21:30 Glucose (Glutose) 22.5 gm Q15M PRN PO DECREASED GLUCOSE; Start 01/09/19 at 21:30 Dextrose (D50w Syringe) 25 ml Q15M PRN IV DECREASED GLUCOSE; Start 01/09/19 at 21:30 Dextrose (D50w Syringe) 50 ml Q15M PRN IV DECREASED GLUCOSE; Start 01/09/19 at 21:30 Glucagon (Glucagen) 1 mg Q15M PRN IM DECREASED GLUCOSE; Start 01/09/19 at 21:30 Glucose (Glutose) 15 gm Q15M PRN BUCCAL DECREASED GLUCOSE; Start 01/09/19 at 21:30 Insulin Glargine (Lantus) 18 units QHS SC Last administered on 01/25/19 21:15; Admin Dose 18 UNITS; Start 01/09/19 at 22:30 Carvedilol (Coreg) 3.125 mg BID PO Last administered on 01/20/19at 20:46; Admin Dose 3.125 MG; Start 01/10/19 at 21:00 Vancomycin HCl (Vanco Iv Per Pharmacy) VANCOMYCIN PER PHARMACY PER PROTOCOL XX ; Start 01/11/19 at 02:30 Lisinopril (Zestril) 2.5 mg DAILY PO Last administered on 01/18/19 08:22; Admin Dose 2.5 MG; Start 01/13/19 at 09:00 Senna (Senokot) 1 tab DAILY PRN PO CONSTIPATION Last administered on 01/25/19 21:12; Admin Dose 1 TAB; Start 01/12/19 at 18:30 Docusate Sodium (Colace) 100 mg BID PRN PO CONSTIPATION Last administered on 01/25/19 21:12; Admin Dose 100 MG; Start 01/12/19 at 18:30 Neomycin/ Polymyxin/ Bacitracin (Neosporin Topical Oint) 1 applic DAILY TOP Last administered on 01/25/19 08:22; Admin Dose 1 APPLIC; Start 01/12/19 at 18:30 Cyanocobalamin (Vitamin B12 Inj) 1,000 mcg DAILY IM Last administered on 01/25/19 08:21; Admin Dose 1,000 MCG; Start 01/16/19 at 09:00 Pantoprazole (Protonix Tab) 40 mg DAILY@06 PO Last administered on 01/26/19 05:27; Admin Dose 40 MG; Start 01/17/19 at 06:00 Metronidazole 100 ml @ 100 mls/hr Q8 IVPB Last administered on 01/26/19 05:16; Admin Dose 100 MLS/HR; Start 01/16/19 at 22:00 Cefepime HCl 50 ml @ 100 mls/hr Q12 IVPB Last administered on 01/25/19 20:58; Admin Dose 100 MLS/HR; Start 01/17/19 at 21:00 Oxycodone HCl (Oxycontin) 10 mg BID PO Last administered on 01/25/19 20:57; Admin Dose 10 MG; Start 01/18/19 at 15:00 Furosemide (Lasix) 20 mg BID DIURETICS IV Last administered on 01/26/19 05:27; Admin Dose 20 MG; Start 01/21/19 at 18:30 Ferric Sodium Gluconate Complex 125 mg/Sodium Chloride 110 ml @ 110 mls/hr DAILY@1300 IVPB Last administered on 01/25/19 12:11; Admin Dose 110 MLS/HR; Start 01/22/19 at 13:00; Stop 01/26/19 at 13:59 Hydromorphone HCl (Dilaudid) 0.5 mg Q4H PRN IV SEVERE PAIN LEVEL 7-10 Last administered on 01/26/19 05:27; Admin Dose 0.5 MG; Start 01/22/19 at 13:00 Vancomycin HCl 1.25 gm/Sodium Chloride 250 ml @ 83.333 mls/ hr Q12H IVPB Last administered on 01/26/19 01:04; Admin Dose 83.333 MLS/HR; Start 01/25/19 at 01:00 TAMELA BOWMAN January 26, 2019 08:52
[2019-01-26] MEDS: oxyCODONE (CR) 10 MG TAB [oxyCONTIN] PO SCH ×2 (09:01→21:39)
--- NOTE | 2019-01-26 10:52 | CONS ---
Assessment/Plan Assessment/Plan Hospital Course (Demo Recall) 63-year-old gentleman with history of coronary artery disease, status post CABG, also status post AICD placement, hypertension, diabetes, peripheral vascular disease, status post aortogram and right lower extremity runoff and percutaneous angioplasty of the posterior tibial artery and anterior tibial artery in 10/2018. Patient has a worsening RLE heel wound and thus admitted for sepsis. 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 pt was found with a T3.5 cm mass/filling defect arising along the lesser curvature of the stomach, -Transfuse to keep hgb > 7. Patient had a transfusion yesterday but did not respond appropriately. -Iron studies are normal but vitamin b12 is low and thus initiated vitamin b12 1000 mcg weekly, will continue d. Consultation Date/Type/Reason Admit Date/Time January 09, 2019 at 18:17 Initial Consult Date 01/16/19 Type of Consult oncology Reason for Consultation gastric mass Requesting Provider: KRISTIN PRYOR MD Date/Time of Note DATE: 01/26/19 TIME: 10:45 24 HR Interval Summary Free Text/Dictation no acute overnight events. Hg is currently stable Exam/Review of Systems Exam Vitals Vital Signs Date Temp Pulse Resp B/P (MAP) Pulse Ox O2 O2 Flow FiO2 Time Delivery Rate 01/26/19 66 08:11 01/26/19 98.0 18 106/57 98 07:27 (73) 01/25/19 Room Air 20:25 01/23/19 10 11:40 Intake and Output 01/25/19 01/25/19 01/26/19 1515:00 23:00 07:00 IntakeIntake Total 650 ml 850 ml OutputOutput Total 1900 ml 2100 ml BalanceBalance -1250 ml -1250 ml Constitutional: alert, oriented Psych: no complaints Head: normocephalic Eyes: nl conjunctiva ENMT: nl external ears & nose Neck: supple Respiratory: clear to auscultation Cardiovascular: regular rate and rhythm Gastrointestinal: soft Musculoskeletal: nl extremities to inspection Results Result Diagram: 01/24/19618 01/26/19 0515 Results 24hrs Laboratory Tests Test 01/25/19 12:06 01/25/19 17:49 01/25/19 20:55 01/26/19 01:08 Bedside Glucose 148 135 190 118 Test 01/26/19 05:15 01/26/19 07:48 Blood Urea Nitrogen 17 Creatinine 0.60 L Bedside Glucose 125 Medications Medication Current Medications Amiodarone HCl (Cordarone) 200 mg DAILY PO Last administered on 01/26/19 08:42; Admin Dose 200 MG; Start 01/10/19 at 09:00 Digoxin (Digoxin) 0.125 mg DAILY@1300 PO Last administered on 01/25/19 12:11; Admin Dose 0.125 MG; Start 01/10/19 at 13:00 Gabapentin (Neurontin) 600 mg DAILY PO Last administered on 01/26/19 08:42; Admin Dose 600 MG; Start 01/10/19 at 09:00 Empaglifozin (Jardiance) 25 mg DAILY PO Last administered on 01/26/19 08:41; Admin Dose 25 MG; Start 01/10/19 at 09:00 Linagliptin (Tradjenta) 5 mg DAILY PO Last administered on 01/26/19 08:43; Admin Dose 5 MG; Start 01/10/19 at 09:00 Diagnostic Test (Pha) (Accu-Chek) 1 ea AC MEALS AND BEDTIME XX Last administered on 01/25/19 21:17; Admin Dose 1 EA; Start 01/09/19 at 21:00 Acetaminophen (Tylenol Tab) 650 mg Q4H PRN PO MILD PAIN(1-3)OR ELEVATED TEMP; Start 01/09/19 at 20:30 Ondansetron HCl (Zofran Inj) 4 mg Q6H PRN IV NAUSEA AND/OR VOMITING Last administered on 01/14/19 19:59; Admin Dose 4 MG; Start 01/09/19 at 20:30 Diagnostic Test (Pha) (Accu-Chek) 1 ea 02 XX Last administered on 01/26/19 01:09; Admin Dose 1 EA; Start 01/10/19 at 02:00 Insulin Aspart (Novolog Insulin Pen) NOVOLOG *MILD* ALGORITHM WITH MEALS B EDTIME SC Last administered on 01/25/19 21:15; Admin Dose 1 UNIT; Start 01/09/19 at 22:30 Miscellaneous Information 1 ea NOTE XX ; Start 01/09/19 at 21:30 Glucose (Glutose) 15 gm Q15M PRN PO DECREASED GLUCOSE; Start 01/09/19 at 21:30 Glucose (Glutose) 22.5 gm Q15M PRN PO DECREASED GLUCOSE; Start 01/09/19 at 21:30 Dextrose (D50w Syringe) 25 ml Q15M PRN IV DECREASED GLUCOSE; Start 01/09/19 at 21:30 Dextrose (D50w Syringe) 50 ml Q15M PRN IV DECREASED GLUCOSE; Start 01/09/19 at 21:30 Glucagon (Glucagen) 1 mg Q15M PRN IM DECREASED GLUCOSE; Start 01/09/19 at 21:30 Glucose (Glutose) 15 gm Q15M PRN BUCCAL DECREASED GLUCOSE; Start 01/09/19 at 21:30 Insulin Glargine (Lantus) 18 units QHS SC Last administered on 01/25/19 21:15; Admin Dose 18 UNITS; Start 01/09/19 at 22:30 Carvedilol (Coreg) 3.125 mg BID PO Last administered on 01/26/19 08:44; Admin Dose 3.125 MG; Start 01/10/19 at 21:00 Vancomycin HCl (Vanco Iv Per Pharmacy) VANCOMYCIN PER PHARMACY PER PROTOCOL XX ; Start 01/11/19 at 02:30 Lisinopril (Zestril) 2.5 mg DAILY PO Last administered on 01/26/19 08:43; Admin Dose 2.5 MG; Start 01/13/19 at 09:00 Senna (Senokot) 1 tab DAILY PRN PO CONSTIPATION Last administered on 01/25/19 21:12; Admin Dose 1 TAB; Start 01/12/19 at 18:30 Docusate Sodium (Colace) 100 mg BID PRN PO CONSTIPATION Last administered on 01/25/19 21:12; Admin Dose 100 MG; Start 01/12/19 at 18:30 Neomycin/ Polymyxin/ Bacitracin (Neosporin Topical Oint) 1 applic DAILY TOP Last administered on 01/26/19 08:44; Admin Dose 1 APPLIC; Start 01/12/19 at 18:30 Cyanocobalamin (Vitamin B12 Inj) 1,000 mcg DAILY IM Last administered on 01/26/19 08:43; Admin Dose 1,000 MCG; Start 01/16/19 at 09:00 Pantoprazole (Protonix Tab) 40 mg DAILY@06 PO Last administered on 01/26/19 05:27; Admin Dose 40 MG; Start 01/17/19 at 06:00 Metronidazole 100 ml @ 100 mls/hr Q8 IVPB Last administered on 01/26/19 05:16; Admin Dose 100 MLS/HR; Start 01/16/19 at 22:00 Cefepime HCl 50 ml @ 100 mls/hr Q12 IVPB Last administered on 01/26/19 08:43; Admin Dose 100 MLS/HR; Start 01/17/19 at 21:00 Oxycodone HCl (Oxycontin) 10 mg BID PO Last administered on 01/26/19 09:01; Admin Dose 10 MG; Start 01/18/19 at 15:00 Furosemide (Lasix) 20 mg BID DIURETICS IV Last administered on 01/26/19 05:27; Admin Dose 20 MG; Start 01/21/19 at 18:30 Ferric Sodium Gluconate Complex 125 mg/Sodium Chloride 110 ml @ 110 mls/hr DAILY@1300 IVPB Last administered on 01/25/19 12:11; Admin Dose 110 MLS/HR; Start 01/22/19 at 13:00; Stop 01/26/19 at 13:59 Hydromorphone HCl (Dilaudid) 0.5 mg Q4H PRN IV SEVERE PAIN LEVEL 7-10 Last administered on 01/26/19 05:27; Admin Dose 0.5 MG; Start 01/22/19 at 13:00 Vancomycin HCl 1.25 gm/Sodium Chloride 250 ml @ 83.333 mls/ hr Q12H IVPB Last administered on 01/26/19 01:04; Admin Dose 83.333 MLS/HR; Start 01/25/19 at 01:00 TJ QUINTERO M.D. January 26, 2019 10:52
--- NOTE | 2019-01-26 12:13 | CONS ---
Assessment/Plan Assessment/Plan Hospital Course (Demo Recall) IMP: 1.Pre-op for peripheral bypass surgery. Lexiscan with no ischemia/+scar EF 28%. Echo EF 25%. OK to proceed to surgery at moderate CV risk 2.Cardiomyopathy with low EF-severely depressed by echo this admit 3.HTN 4.HL 5.Non-healing LE ulcer 6.PAD-severe s/p prior ASSEMBLER TYPE BAR AND SEGMENT 7.DM 8. 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 Recc: -ON tele -Continue digoxin -Continue coreg and zestril as tolerated only for treatment of cardiomyopathy -Continue amio -PLavix was held for procedure ? resume -Continue abx's and f/u cx data -Follow volume status closely and continue lasix diuresis -local wound care -pnding LE bypass when patient stable -transfuse PRBC's as necessary -ongoing heme eval Consultation Date/Type/Reason Admit Date/Time January 09, 2019 at 18:17 Initial Consult Date 01/10/19 Type of Consult Cardiology Reason for Consultation Preop/CHF Requesting Provider: KRISTIN PRYOR MD Date/Time of Note DATE: 01/26/19 TIME: 12:10 Exam/Review of Systems Vital Signs Vitals Vital Signs Date Temp Pulse Resp B/P (MAP) Pulse Ox O2 O2 Flow FiO2 Time Delivery Rate 01/26/19 82 12:06 01/26/19 116/59 11:32 (78) 01/26/19 98.0 18 98 07:27 01/25/19 Room Air 20:25 01/23/19 10 11:40 Intake and Output 01/25/19 01/25/19 01/26/19 1515:00 23:00 07:00 IntakeIntake Total 650 ml 850 ml OutputOutput Total 1900 ml 2100 ml BalanceBalance -1250 ml -1250 ml Exam Exam Review of Systems: CONSTITUTIONAL: No fevers, chills. PULMONARY: No sob CARDIOVASCULAR: No chest pain/palpitations GASTROINTESTINAL: No nausea/vomiting. GENITOURINARY: No hematuria/dysuria. MUSCULOSKELETAL: No myagias/arthalgias. PSYCHIATRIC: The patient denies depression. NEUROLOGIC: No weakness Constitutional: alert Psych: no complaints Head: normocephalic ENMT: mucosa pink and moist Neck: supple, jvd (9 cm water) Respiratory: diminished breath sounds (at bases/B) Cardiovascular: regular rate and rhythm Gastrointestinal: soft, non-tender Musculoskeletal: muscle weakness (generalized) Extremities: pitting pedal edema (bilateral) 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: other (No focal deficits) Labs Result Diagram: 01/24/19 0619 01/26/19 0515 Results 24hrs Laboratory Tests Test 01/25/19 17:49 01/25/19 20:55 01/26/19 01:08 01/26/19 05:15 Bedside Glucose 135 190 118 Blood Urea Nitrogen 17 Creatinine 0.60 L Test 01/26/19 07:48 01/26/19 11:38 Bedside Glucose 125 286 H Medications Medications Current Medications Amiodarone HCl (Cordarone) 200 mg DAILY PO Last administered on 01/26/19 08:42; Admin Dose 200 MG; Start 01/10/19 at 09:00 Digoxin (Digoxin) 0.125 mg DAILY@1300 PO Last administered on 01/25/19 12:11; Admin Dose 0.125 MG; Start 01/10/19 at 13:00 Gabapentin (Neurontin) 600 mg DAILY PO Last administered on 01/26/19 08:42; Admin Dose 600 MG; Start 01/10/19 at 09:00 Empaglifozin (Jardiance) 25 mg DAILY PO Last administered on 01/26/19 08:41; Admin Dose 25 MG; Start 01/10/19 at 09:00 Linagliptin (Tradjenta) 5 mg DAILY PO Last administered on 01/26/19 08:43; Admin Dose 5 MG; Start 01/10/19 at 09:00 Diagnostic Test (Pha) (Accu-Chek) 1 ea AC MEALS AND BEDTIME XX Last administered on 01/26/19 11:39; Admin Dose 1 EA; Start 01/09/19 at 21:00 Acetaminophen (Tylenol Tab) 650 mg Q4H PRN PO MILD PAIN(1-3)OR ELEVATED TEMP; Start 01/09/19 at 20:30 Ondansetron HCl (Zofran Inj) 4 mg Q6H PRN IV NAUSEA AND/OR VOMITING Last admini stered on 01/14/19 19:59; Admin Dose 4 MG; Start 01/09/19 at 20:30 Diagnostic Test (Pha) (Accu-Chek) 1 ea 02 XX Last administered on 01/26/19at 01:09; Admin Dose 1 EA; Start 01/10/19 at 02:00 Insulin Aspart (Novolog Insulin Pen) NOVOLOG *MILD* ALGORITHM WITH MEALS BEDTIME SC Last administered on 01/26/19at 11:51; Admin Dose 4 UNIT; Start 01/09/19 at 22:30 Miscellaneous Information 1 ea NOTE XX ; Start 01/09/19 at 21:30 Glucose (Glutose) 15 gm Q15M PRN PO DECREASED GLUCOSE; Start 01/09/19 at 21:30 Glucose (Glutose) 22.5 gm Q15M PRN PO DECREASED GLUCOSE; Start 01/09/19 at 21:30 Dextrose (D50w Syringe) 25 ml Q15M PRN IV DECREASED GLUCOSE; Start 01/09/19 at 21:30 Dextrose (D50w Syringe) 50 ml Q15M PRN IV DECREASED GLUCOSE; Start 01/09/19 at 21:30 Glucagon (Glucagen) 1 mg Q15M PRN IM DECREASED GLUCOSE; Start 01/09/19 at 21:30 Glucose (Glutose) 15 gm Q15M PRN BUCCAL DECREASED GLUCOSE; Start 01/09/19 at 21:30 Insulin Glargine (Lantus) 18 units QHS SC Last administered on 01/25/19at 21:15; Admin Dose 18 UNITS; Start 01/09/19 at 22:30 Carvedilol (Coreg) 3.125 mg BID PO Last administered on 01/26/19at 08:44; Admin Dose 3.125 MG; Start 01/10/19 at 21:00 Vancomycin HCl (Vanco Iv Per Pharmacy) VANCOMYCIN PER PHARMACY PER PROTOCOL XX ; Start 01/11/19 at 02:30 Lisinopril (Zestril) 2.5 mg DAILY PO Last administered on 01/26/19at 08:43; Admin Dose 2.5 MG; Start 01/13/19 at 09:00 Senna (Senokot) 1 tab DAILY PRN PO CONSTIPATION Last administered on 01/25/19at 21:12; Admin Dose 1 TAB; Start 01/12/19 at 18:30 Docusate Sodium (Colace) 100 mg BID PRN PO CONSTIPATION Last administered on 01/25/19at 21:12; Admin Dose 100 MG; Start 01/12/19 at 18:30 Neomycin/ Polymyxin/ Bacitracin (Neosporin Topical Oint) 1 applic DAILY TOP Last administered on 01/26/19 08:44; Admin Dose 1 APPLIC; Start 01/12/19 at 18:3 0 Cyanocobalamin (Vitamin B12 Inj) 1,000 mcg DAILY IM Last administered on 01/26/19 08:43; Admin Dose 1,000 MCG; Start 01/16/19 at 09:00 Pantoprazole (Protonix Tab) 40 mg DAILY@06 PO Last administered on 01/26/19 05:27; Admin Dose 40 MG; Start 01/17/19 at 06:00 Metronidazole 100 ml @ 100 mls/hr Q8 IVPB Last administered on 01/26/19 05:16; Admin Dose 100 MLS/HR; Start 01/16/19 at 22:00 Cefepime HCl 50 ml @ 100 mls/hr Q12 IVPB Last administered on 01/26/19 08:43; Admin Dose 100 MLS/HR; Start 01/17/19 at 21:00 Oxycodone HCl (Oxycontin) 10 mg BID PO Last administered on 01/26/19 09:01; Admin Dose 10 MG; Start 01/18/19 at 15:00 Furosemide (Lasix) 20 mg BID DIURETICS IV Last administered on 01/26/19 05:27; Admin Dose 20 MG; Start 01/21/19 at 18:30 Ferric Sodium Gluconate Complex 125 mg/Sodium Chloride 110 ml @ 110 mls/hr DAILY@1300 IVPB Last administered on 01/25/19 12:11; Admin Dose 110 MLS/HR; Start 01/22/19 at 13:00; Stop 01/26/19 at 13:59 Hydromorphone HCl (Dilaudid) 0.5 mg Q4H PRN IV SEVERE PAIN LEVEL 7-10 Last administered on 01/26/19 11:40; Admin Dose 0.5 MG; Start 01/22/19 at 13:00 Vancomycin HCl 1.25 gm/Sodium Chloride 250 ml @ 83.333 mls/ hr Q12H IVPB Last administered on 01/26/19 01:04; Admin Dose 83.333 MLS/HR; Start 01/25/19 at 01:00 VERO ARELLANO January 26, 2019 12:13
--- NOTE | 2019-01-26 12:19 | CONS ---
Assessment/Plan Assessment/Plan Hospital Course (Demo Recall) - polymicrobial infection of non-healing ulcer of R heel. CT on 01/10/2019 did not show evidence of OM. ESR 26 on 01/09/2019 and 37 on 01/12/2019; superficial wound cx Pseudomonas, E. Coli, Enterococcus (isolated from broth only), scant Proteus, and scant CoNS - s/p Debridement of the right calcaneal ulceration 01/13/2019; intraop cx grew E. Coli, Proteus, and Enterococcus - chronic wound of R heel, in the past the wound culture grew E. coli - h/o OM of R foot, h/o 6 weeks of IV vancomycin and ceftriaxone in 2018. 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 Coli and Proteus. PHOEBE Wyman spoke with [facility] who confirmed sensis of Cefepime to E. Coli and Proteus. E.coli is resistant to Amp-sulbactam - Continue IV vancomycin (01/11/2019-) - Continue Flagyl IV (01/16/19 -) - Will likely require 4-6 weeks abx - Hypotension s/p Dilaudid + Lasix - Fall precautions, and recheck BP - f/u path Consultation Date/Type/Reason Admit Date/Time January 09, 2019 at 18:17 Initial Consult Date 01/10/19 Requesting Provider: KRISTIN PRYOR MD Date/Time of Note DATE: 01/26/19 TIME: 12:17 Exam/Review of Systems Exam Vitals Vital Signs Date Temp Pulse Resp B/P (MAP) Pulse Ox O2 O2 Flow FiO2 Time Delivery Rate 01/26/19 98.0 75 16 110/62 98 12:12 (78) 01/25/19 Room Air 20:25 01/23/19 10 11:40 Intake and Output 01/25/19 01/25/19 01/26/19 1515:00 23:00 07:00 IntakeIntake Total 650 ml 850 ml OutputOutput Total 1900 ml 2100 ml BalanceBalance -1250 ml -1250 ml Results Result Diagram: 01/24/19 0619 01/26/19 0515 Results 24hrs Laboratory Tests Test 01/25/19 17:49 01/25/19 20:55 01/26/19 01:08 01/26/19 05:15 Bedside Glucose 135 190 118 Blood Urea Nitrogen 17 Creatinine 0.60 L Test 01/26/19 07:48 01/26/19 11:38 Bedside Glucose 125 286 H Medications Medication Current Medications Amiodarone HCl (Cordarone) 200 mg DAILY PO Last administered on 01/26/19 08:42; Admin Dose 200 MG; Start 01/10/19 at 09:00 Digoxin (Digoxin) 0.125 mg DAILY@1300 PO Last administered on 01/25/19 12:11; Admin Dose 0.125 MG; Start 01/10/19 at 13:00 Gabapentin (Neurontin) 600 mg DAILY PO Last administered on 01/26/19 08:42; Admin Dose 600 MG; Start 01/10/19 at 09:00 Empaglifozin (Jardiance) 25 mg DAILY PO Last administered on 01/26/19 08:41; Admin Dose 25 MG; Start 01/10/19 at 09:00 Linagliptin (Tradjenta) 5 mg DAILY PO Last administered on 01/26/19 08:43; Admin Dose 5 MG; Start 01/10/19 at 09:00 Diagnostic Test (Pha) (Accu-Chek) 1 ea AC MEALS AND BEDTIME XX Last administered on 01/26/19 11:39; Admin Dose 1 EA; Start 01/09/19 at 21:00 Acetaminophen (Tylenol Tab) 650 mg Q4H PRN PO MILD PAIN(1-3)OR ELEVATED TEMP; Start 01/09/19 at 20:30 Ondansetron HCl (Zofran Inj) 4 mg Q6H PRN IV NAUSEA AND/OR VOMITING Last administered on 01/14/19 19:59; Admin Dose 4 MG; Start 01/09/19 at 20:30 Diagnostic Test (Pha) (Accu-Chek) 1 ea 02 XX Last administered on 01/26/19at 01:09; Admin Dose 1 EA; Start 01/10/19 at 02:00 Insulin Aspart (Novolog Insulin Pen) NOVOLOG *MILD* ALGORITHM WITH MEALS BEDTIME SC Last administered on 01/26/19at 11:51; Admin Dose 4 UNIT; Start 01/09/19 at 22:30 Miscellaneous Information 1 ea NOTE XX ; Start 01/09/19 at 21:30 Glucose (Glutose) 15 gm Q15M PRN PO DECREASED GLUCOSE; Start 01/09/19 at 21:30 Glucose (Glutose) 22.5 gm Q15M PRN PO DECREASED GLUCOSE; Start 01/09/19 at 21:30 Dextrose (D50w Syringe) 25 ml Q15M PRN IV DECREASED GLUCOSE; Start 01/09/19 at 21:30 Dextrose (D50w Syringe) 50 ml Q15M PRN IV DECREASED GLUCOSE; Start 01/09/19 at 21:30 Glucagon (Glucagen) 1 mg Q15M PRN IM DECREASED GLUCOSE; Start 01/09/19 at 21:30 Glucose (Glutose) 15 gm Q15M PRN BUCCAL DECREASED GLUCOSE; Start 01/09/19 at 21:30 Insulin Glargine (Lantus) 18 units QHS SC Last administered on 01/25/19at 21:15; Admin Dose 18 UNITS; Start 01/09/19 at 22:30 Carvedilol (Coreg) 3.125 mg BID PO Last administered on 01/26/19at 08:44; Admin Dose 3.125 MG; Start 01/10/19 at 21:00 Vancomycin HCl (Vanco Iv Per Pharmacy) VANCOMYCIN PER PHARMACY PER PROTOCOL XX ; Start 01/11/19 at 02:30 Lisinopril (Zestril) 2.5 mg DAILY PO Last administered on 01/26/19at 08:43; Admin Dose 2.5 MG; Start 01/13/19 at 09:00 Senna (Senokot) 1 tab DAILY PRN PO CONSTIPATION Last administered on 01/25/19at 21:12; Admin Dose 1 TAB; Start 01/12/19 at 18:30 Docusate Sodium (Colace) 100 mg BID PRN PO CONSTIPATION Last administered on 01/25/19at 21:12; Admin Dose 100 MG; Start 01/12/19 at 18:30 Neomycin/ Polymyxin/ Bacitracin (Neosporin Topical Oint) 1 applic DAILY TOP Last administered on 01/26/19 08:44; Admin Dose 1 APPLIC; Start 01/12/19 at 18:30 Cyanocobalamin (Vitamin B12 Inj) 1,000 mcg DAILY IM Last administered on 01/26/19 08:43; Admin Dose 1,000 MCG; Start 01/16/19 at 09:00 Pantoprazole (Protonix Tab) 40 mg DAILY@06 PO Last administered on 01/26/19 05:27; Admin Dose 40 MG; Start 01/17/19 at 06:00 Metronidazole 100 ml @ 100 mls/hr Q8 IVPB Last administered on 01/26/19 05:16; Admin Dose 100 MLS/HR; Start 01/16/19 at 22:00 Cefepime HCl 50 ml @ 100 mls/hr Q12 IVPB Last administered on 01/26/19 08:43; Admin Dose 100 MLS/HR; Start 01/17/19 at 21:00 Oxycodone HCl (Oxycontin) 10 mg BID PO Last administered on 01/26/19 09:01; Admin Dose 10 MG; Start 01/18/19 at 15:00 Furosemide (Lasix) 20 mg BID DIURETICS IV Last administered on 01/26/19 05:27; Admin Dose 20 MG; Start 01/21/19 at 18:30 Ferric Sodium Gluconate Complex 125 mg/Sodium Chloride 110 ml @ 110 mls/hr DAILY@1300 IVPB Last administered on 01/25/19 12:11; Admin Dose 110 MLS/HR; Start 01/22/19 at 13:00; Stop 01/26/19 at 13:59 Hydromorphone HCl (Dilaudid) 0.5 mg Q4H PRN IV SEVERE PAIN LEVEL 7-10 Last administered on 01/26/19 11:40; Admin Dose 0.5 MG; Start 01/22/19 at 13:00 Vancomycin HCl 1.25 gm/Sodium Chloride 250 ml @ 83.333 mls/ hr Q12H IVPB Last administered on 01/26/19 01:04; Admin Dose 83.333 MLS/HR; Start 01/25/19 at 01:00 DENITA WOMACK MD January 26, 2019 12:19
[2019-01-26] MEDS: SOD FERRIC GLUC COMPLX 125 MG in SOD CHLORIDE 0.9% 100 ML IVPB SCH (12:38)
[2019-01-26] MEDS: DIGOXIN 0.125 MG TAB PO SCH (12:38)
--- NOTE | 2019-01-26 14:01 | PN ---
Date/Time of Note Date/Time of Note DATE: 01/26/19 TIME: 13:57 Assessment/Plan VTE Prophylaxis Risk score (from Ns)>0 risk: 7 SCD applied (from [facility] [place]): Yes Pharmacological prophylaxis: NA/contraindicated Pharm contraindication: bleeding Lines/Catheters IV Catheter Type (from [facility]): Central Line Central line still needed: Yes Urinary Cath still in place: No Assessment/Plan Hospital Course Patient can undergo vascular surgery per GI and cardiology. Dr. Sheppard is notified. Patient remains hemodynamically stable, afebrile. Assessment/Plan -GIST tumor per EGD. Continue PPI. Dr. Roberts is following in gastroenterology consultation. -New onset of anemia and hypotension requiring blood transfusion on 01/15/2019, stool for OB is negative. -Right heel necrotic wound. Dr. Mata is following in podiatry consultation. Status post debridement. Continue antibiotics per ID. Dr. Urbano is following in infection disease consultation. -Chronic peripheral vascular disease, history of angioplasty x2. Dr. Sheppard is following in vascular surgery consultation. Plan for a right pop DP bypass which is on hold due to GI issues. -Coronary artery disease, status post coronary artery bypass graft. -Cardiomyopathy with ejection fraction of 25%. Continue Coreg. Dr. Foster is following in cardiology consultation. -Status post AICD. -Hx of Hypertension. -Diabetes hemoglobin A1c 7.6. Continue Lantus and NovoLog. -Right knee contusion and abrasion status post fall. Status post evaluation by Dr. Zelaya and orthopedic surgery. No signs of fracture or dystrophic dislocation. -Chronic low back pain with significant spondylolisthesis grade II at the level of L5 to S1. Further recommendations based on clinical course. Plan of care discussed with Dr. Mann. Result Diagram: 01/24/19 0619 01/26/19 0515 Results 24hrs Laboratory Tests Test 01/25/19 17:49 01/25/19 20:55 01/26/19 01:08 01/26/19 05:15 Bedside Glucose 135 190 118 Blood Urea Nitrogen 17 Creatinine 0.60 L Test 01/26/19 07:48 01/26/19 11:38 Bedside Glucose 125 286 H Exam/Review of Systems Exam Vitals Vital Signs Date Temp Pulse Resp B/P (MAP) Pulse Ox O2 O2 Flow FiO2 Time Delivery Rate 01/26/19 98.0 75 16 110/62 98 12:12 (78) 01/25/19 Room Air 20:25 01/23/19 10 11:40 Intake and Output 01/25/19 01/25/19 01/26/19 1515:00 23:00 07:00 IntakeIntake Total 650 ml 850 ml OutputOutput Total 1900 ml 2100 ml BalanceBalance -1250 ml -1250 ml Exam Constitutional: alert, oriented Respiratory: clear to auscultation Cardiovascular: regular rhythm and rate, AICD Gastrointestinal: soft, non-tender Extremities: normal pulses, other (Right heel wound) Right chest triple lumen catheter Results Results 24hrs Laboratory Tests Test 01/25/19 17:49 01/25/19 20:55 01/26/19 01:08 01/26/19 05:15 Bedside Glucose 135 190 118 Blood Urea Nitrogen 17 Creatinine 0.60 L Test 01/26/19 07:48 01/26/19 11:38 Bedside Glucose 125 286 H Medications Medication Current Medications Amiodarone HCl (Cordarone) 200 mg DAILY PO Last administered on 01/26/19 08:42; Admin Dose 200 MG; Start 01/10/19 at 09:00 Digoxin (Digoxin) 0.125 mg DAILY@1300 PO Last administered on 01/26/19 12:38; Admin Dose 0.125 MG; Start 01/10/19 at 13:00 Gabapentin (Neurontin) 600 mg DAILY PO Last administered on 01/26/19 08:42; Admin Dose 600 MG; Start 01/10/19 at 09:00 Empaglifozin (Jardiance) 25 mg DAILY PO Last administered on 01/26/19 08:41; Admin Dose 25 MG; Start 01/10/19 at 09:00 Linagliptin (Tradjenta) 5 mg DAILY PO Last administered on 01/26/19 08:43; Admin Dose 5 MG; Start 01/10/19 at 09:00 Diagnostic Test (Pha) (Accu-Chek) 1 ea AC MEALS AND BEDTIME XX Last administered on 01/26/19 11:39; Admin Dose 1 EA; Start 01/09/19 at 21:00 Acetaminophen (Tylenol Tab) 650 mg Q4H PRN PO MILD PAIN(1-3)OR ELEVATED TEMP; Start 01/09/19 at 20:30 Ondansetron HCl (Zofran Inj) 4 mg Q6H PRN IV NAUSEA AND/OR VOMITING Last administered on 01/14/19 19:59; Admin Dose 4 MG; Start 01/09/19 at 20:30 Diagnostic Test (Pha) (Accu-Chek) 1 ea 02 XX Last administered on 01/26/19 01:09; Admin Dose 1 EA; Start 01/10/19 at 02:00 Insulin Aspart (Novolog Insulin Pen) NOVOLOG *MILD* ALGORITHM WITH MEALS BEDTIME SC Last administered on 01/26/19 11:51; Admin Dose 4 UNIT; Start 01/09/19 at 22:30 Miscellaneous Information 1 ea NOTE XX ; Start 01/09/19 at 21:30 Glucose (Glutose) 15 gm Q15M PRN PO DECREASED GLUCOSE; Start 01/09/19 at 21:30 Glucose (Glutose) 22.5 gm Q15M PRN PO DECREASED GLUCOSE; Start 01/09/19 at 21:30 Dextrose (D50w Syringe) 25 ml Q15M PRN IV DECREASED GLUCOSE; Start 01/09/19 at 21:30 Dextrose (D50w Syringe) 50 ml Q15M PRN IV DECREASED GLUCOSE; Start 01/09/19 at 21:30 Glucagon (Glucagen) 1 mg Q15M PRN IM DECREASED GLUCOSE; Start 01/09/19 at 21:30 Glucose (Glutose) 15 gm Q15M PRN BUCCAL DECREASED GLUCOSE; Start 01/09/19 at 21:30 Insulin Glargine (Lantus) 18 units QHS SC Last administered on 01/25/19at 21:15; Admin Dose 18 UNITS; Start 01/09/19 at 22:30 Carvedilol (Coreg) 3.125 mg BID PO Last administered on 01/26/19at 08:44; Admin Dose 3.125 MG; Start 01/10/19 at 21:00 Vancomycin HCl (Vanco Iv Per Pharmacy) VANCOMYCIN PER PHARMACY PER PROTOCOL XX ; Start 01/11/19 at 02:30 Lisinopril (Zestril) 2.5 mg DAILY PO Last administered on 01/26/19 08:43; Admin Dose 2.5 MG; Start 01/13/19 at 09:00 Senna (Senokot) 1 tab DAILY PRN PO CONSTIPATION Last administered on 01/25/19 21:12; Admin Dose 1 TAB; Start 01/12/19 at 18:30 Docusate Sodium (Colace) 100 mg BID PRN PO CONSTIPATION Last administered on 01/25/19 21:12; Admin Dose 100 MG; Start 01/12/19 at 18:30 Neomycin/ Polymyxin/ Bacitracin (Neosporin Topical Oint) 1 applic DAILY TOP Last administered on 01/26/19 08:44; Admin Dose 1 APPLIC; Start 01/12/19 at 18:30 Cyanocobalamin (Vitamin B12 Inj) 1,000 mcg DAILY IM Last administered on 01/26/19 08:43; Admin Dose 1,000 MCG; Start 01/16/19 at 09:00 Pantoprazole (Protonix Tab) 40 mg DAILY@06 PO Last administered on 01/26/19 05:27; Admin Dose 40 MG; Start 01/17/19 at 06:00 Metronidazole 100 ml @ 100 mls/hr Q8 IVPB Last administered on 01/26/19 13:53; Admin Dose 100 MLS/HR; Start 01/16/19 at 22:00 Cefepime HCl 50 ml @ 100 mls/hr Q12 IVPB Last administered on 01/26/19 08:43; Admin Dose 100 MLS/HR; Start 01/17/19 at 21:00 Oxycodone HCl (Oxycontin) 10 mg BID PO Last administered on 01/26/19 09:01; Admin Dose 10 MG; Start 01/18/19 at 15:00 Furosemide (Lasix) 20 mg BID DIURETICS IV Last administered on 01/26/19 05 :27; Admin Dose 20 MG; Start 01/21/19 at 18:30 Ferric Sodium Gluconate Complex 125 mg/Sodium Chloride 110 ml @ 110 mls/hr DAILY@1300 IVPB Last administered on 01/26/19 12:38; Admin Dose 110 MLS/HR; Start 01/22/19 at 13:00; Stop 01/26/19 at 13:59 Hydromorphone HCl (Dilaudid) 0.5 mg Q4H PRN IV SEVERE PAIN LEVEL 7-10 Last administered on 01/26/19 11:40; Admin Dose 0.5 MG; Start 01/22/19 at 13:00 Vancomycin HCl 1.25 gm/Sodium Chloride 250 ml @ 83.333 mls/ hr Q12H IVPB Last administered on 01/26/19at 13:52; Admin Dose 83.333 MLS/HR; Start 01/25/19 at 01:00 RAMESH SOLORZANO January 26, 2019 14:01
[2019-01-26] MEDS: INSULIN GLARGINE [LANTus] (100 UNITS/ML) SYG SC SCH (20:35)
[2019-01-26] MEDS: DOCUSATE SODIUM 100 MG CAP PO PRN (20:43)
[2019-01-27] VITALS (13 sets, daily range): BP systolic 90–130; BP diastolic 52–67; PULSE 63–98; RESP 16–18
[2019-01-27] MEDS: HYDROmorphONE 0.5 MG/0.5 ML SYG IV PRN ×4 (01:05→20:45)
[2019-01-27] MEDS: VANCOMYCIN HCL 1.25 GM in SOD CHLORIDE 0.9% 250 ML IVPB SCH ×2 (01:41→12:11)
[2019-01-27] MEDS: ACCU-CHEK XX SCH ×4 (02:00→21:00)
[2019-01-27] MEDS: FUROSEMIDE 20 MG INJ IV SCH ×3 (06:00→19:02)
[2019-01-27] MEDS: PANTOPRAZOLE (EC) 40 MG TAB PO SCH (06:10)
[2019-01-27] MEDS: metroNIDAZOLE 500 MG/NS (PMX) 100 ML IVPB SCH ×3 (06:10→21:45)
--- NOTE | 2019-01-27 07:25 | CONS ---
Assessment/Plan Assessment/Plan Assessment/Plan (Daily) Assessment/Plan (Daily) Status post debridement debridement the right human chronic wound Severe peripheral vascular disease status post angioplasty times two, hyperkalemia hypertension coronary artery disease status post coronary artery bypass graft, cardiomyopathy with an ejection fraction 25% Severe peripheral vascular disease resulting in uncontrolled pain with elevation of his leg with light dependent pain is almost 100% resolved Patient remains very optimistic that he will continue to improve, pain is under control with very low dose of opioids and distraction therapy. Consultation Date/Type/Reason Admit Date/Time January 09, 2019 at 18:17 Initial Consult Date 01/16/19 Requesting Provider: KRISTIN PRYOR MD Date/Time of Note DATE: 01/27/19 TIME: 07:24 Exam/Review of Systems Exam Vitals Vital Signs Date Temp Pulse Resp B/P (MAP) Pulse Ox O2 O2 Flow FiO2 Time Delivery Rate 01/27/19 98.0 73 16 90/53 (65) 100 04:15 01/25/19 Room Air 20:25 01/23/19 10 11:40 Intake and Output 01/26/19 01/26/19 01/27/19 1515:00 23:00 07:00 IntakeIntake Total 150 ml 800 ml 500 ml OutputOutput Total 200 ml 500 ml BalanceBalance 150 ml 600 ml 0 ml Constitutional: alert, oriented, well developed Head: normocephalic, atraumatic Respiratory: clear to auscultation, normal air movement Cardiovascular: regular rate and rhythm, nl pulses 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: BRONZE PLATER II-XII intact, nl mental status, nl speech, nl strength; No confused, No DTR's symmetric, No focal weakness, No lethargic, No numbness, No reflexes, No unresponsive, No other Results Result Diagram: 01/27/19 0609 01/27/19 0609 Results 24hrs Laboratory Tests Test 01/26/19 07:48 01/26/19 11:38 01/26/19 17:16 01/26/19 20:26 Bedside Glucose 125 286 H 192 239 H Test 01/27/19 00:15 01/27/19 01:42 01/27/19 06:09 Vancomycin Level 14.9 Trough Bedside Glucose 121 White Blood Count 7.6 Red Blood Count 3.08 L Hemoglobin 9.0 L Hematocrit 29.4 L Mean Corpuscular 95.5 Volume Mean Corpuscular 29.2 Hemoglobin Mean Corpuscular 30.6 L Hemoglobin Concent Red Cell 17.1 H Distribution Width Platelet Count 331 Mean Platelet Volume 10.6 H Immature 0.800 H Granulocytes % Neutrophils % 59.5 Lymphocytes % 25.5 Monocytes % 9.9 Eosinophils % 3.9 Basophils % 0.4 Nucleated Red Blood 0.0 Cells % Immature 0.060 H Granulocytes # Neutrophils # 4.5 Lymphocytes # 1.9 Monocytes # 0.8 Eosinophils # 0.3 Basophils # 0.0 Nucleated Red Blood 0.0 Cells # Sodium Level 137 Potassium Level 4.1 Chloride Level 102 Carbon Dioxide Level 28 Anion Gap 7 Blood Urea Nitrogen 18 Creatinine 0.65 Est Glomerular > 60 Filtrat Rate mL/min Glucose Level 115 Calcium Level 9.2 Medications Medication Current Medications Amiodarone HCl (Cordarone) 200 mg DAILY PO Last administered on 01/26/19 08:42; Admin Dose 200 MG; Start 01/10/19 at 09:00 Digoxin (Digoxin) 0.125 mg DAILY@1300 PO Last administered on 01/26/19 12:38; Admin Dose 0.125 MG; Start 01/10/19 at 13:00 Gabapentin (Neurontin) 600 mg DAILY PO Last administered on 01/26/19 08:42; Admin Dose 600 MG; Start 01/10/19 at 09:00 Empaglifozin (Jardiance) 25 mg DAILY PO Last administered on 01/26/19 08:41; Admin Dose 25 MG; Start 01/10/19 at 09:00 Linagliptin (Tradjenta) 5 mg DAILY PO Last administered on 01/26/19 08:43; Admin Dose 5 MG; Start 01/10/19 at 09:00 Diagnostic Test (Pha) (Accu-Chek) 1 ea AC MEALS AND BEDTIME XX Last administered on 01/26/19 21:42; Admin Dose 1 EA; Start 01/09/19 at 21:00 Acetaminophen (Tylenol Tab) 650 mg Q4H PRN PO MILD PAIN(1-3)OR ELEVATED TEMP; Start 01/09/19 at 20:30 Ondansetron HCl (Zofran Inj) 4 mg Q6H PRN IV NAUSEA AND/OR VOMITING Last administered on 01/14/19 19:59; Admin Dose 4 MG; Start 01/09/19 at 20:30 Diagnostic Test (Pha) (Accu-Chek) 1 ea 02 XX Last administered on 01/27/19at 02 :00; Admin Dose 1 EA; Start 01/10/19 at 02:00 Miscellaneous Information 1 ea NOTE XX ; Start 01/09/19 at 21:30 Glucose (Glutose) 15 gm Q15M PRN PO DECREASED GLUCOSE; Start 01/09/19 at 21:30 Glucose (Glutose) 22.5 gm Q15M PRN PO DECREASED GLUCOSE; Start 01/09/19 at 21:30 Dextrose (D50w Syringe) 25 ml Q15M PRN IV DECREASED GLUCOSE; Start 01/09/19 at 21:30 Dextrose (D50w Syringe) 50 ml Q15M PRN IV DECREASED GLUCOSE; Start 01/09/19 at 21:30 Glucagon (Glucagen) 1 mg Q15M PRN IM DECREASED GLUCOSE; Start 01/09/19 at 21:30 Glucose (Glutose) 15 gm Q15M PRN BUCCAL DECREASED GLUCOSE; Start 01/09/19 at 21:30 Insulin Glargine (Lantus) 18 units QHS SC Last administered on 01/26/19at 20:35; Admin Dose 18 UNITS; Start 01/09/19 at 22:30 Carvedilol (Coreg) 3.125 mg BID PO Last administered on 01/26/19at 08:44; Admin Dose 3.125 MG; Start 01/10/19 at 21:00 Vancomycin HCl (Vanco Iv Per Pharmacy) VANCOMYCIN PER PHARMACY PER PROTOCOL XX ; Start 01/11/19 at 02:30 Lisinopril (Zestril) 2.5 mg DAILY PO Last administered on 01/26/19at 08:43; Admin Dose 2.5 MG; Start 01/13/19 at 09:00 Senna (Senokot) 1 tab DAILY PRN PO CONSTIPATION Last administered on 01/25/19at 21:12; Admin Dose 1 TAB; Start 01/12/19 at 18:30 Docusate Sodium (Colace) 100 mg BID PRN PO CONSTIPATION Last administered on 01/26/19at 20:43; Admin Dose 100 MG; Start 01/12/19 at 18:30 Neomycin/ Polymyxin/ Bacitracin (Neosporin Topical Oint) 1 applic DAILY TOP Last administered on 01/26/19 08:44; Admin Dose 1 APPLIC; Start 01/12/19 at 18:30 Cyanocobalamin (Vitamin B12 Inj) 1,000 mcg DAILY IM Last administered on 01/26/19 08:43; Admin Dose 1,000 MCG; Start 01/16/19 at 09:00 Pantoprazole (Protonix Tab) 40 mg DAILY@06 PO Last administered on 01/27/19 06:10; Admin Dose 40 MG; Start 01/17/19 at 06:00 Metronidazole 100 ml @ 100 mls/hr Q8 IVPB Last administered on 01/27/19 06:10; Admin Dose 100 MLS/HR; Start 01/16/19 at 22:00 Cefepime HCl 50 ml @ 100 mls/hr Q12 IVPB Last administered on 01/26/19 20:20; Admin Dose 100 MLS/HR; Start 01/17/19 at 21:00 Oxycodone HCl (Oxycontin) 10 mg BID PO Last administered on 01/26/19 21:39; Admin Dose 10 MG; Start 01/18/19 at 15:00 Furosemide (Lasix) 20 mg BID DIURETICS IV Last administered on 01/26/19 17:16; Admin Dose 20 MG; Start 01/21/19 at 18:30 Hydromorphone HCl (Dilaudid) 0.5 mg Q4H PRN IV SEVERE PAIN LEVEL 7-10 Last administered on 01/27/19 01:05; Admin Dose 0.5 MG; Start 01/22/19 at 13:00 Vancomycin HCl 1.25 gm/Sodium Chloride 250 ml @ 83.333 mls/ hr Q12H IVPB Last administered on 01/27/19 01:41; Admin Dose 83.333 MLS/HR; Start 01/25/19 at 01:00 Insulin Aspart (Novolog Insulin Pen) NOVOLOG *MODERATE* ALGORITHM WITH MEALS BEDTIME SC Last administered on 01/26/19 20:34; Admin Dose 2 UNIT; Start 01/26/19 at 21:00 BIGG RICHARDSON January 27, 2019 07:25
[2019-01-27] MEDS: INSULIN ASPART [NOVOLOG] 3 ML PEN SC SCH ×4 (07:55→21:03)
[2019-01-27] MEDS: LINAGLIPTIN 5 MG TABLET PO SCH (08:27)
[2019-01-27] MEDS: EMPAGLIFLOZIN 10 MG TABLET PO SCH (08:27)
[2019-01-27] MEDS: AMIODARONE 200 MG TAB PO SCH (08:28)
[2019-01-27] MEDS: LISINOPRIL 5 MG TAB PO SCH (08:28)
[2019-01-27] MEDS: CYANOCOBALAMIN 1000 MCG INJ IM SCH (08:29)
[2019-01-27] MEDS: CEFEPIME 2GM/50 ML (PMX) 50 ML IVPB SCH ×2 (08:33→20:40)
[2019-01-27] MEDS: GABAPENTIN 300 MG CAP PO SCH (08:40)
[2019-01-27] MEDS: oxyCODONE (CR) 10 MG TAB [oxyCONTIN] PO SCH ×2 (08:40→21:45)
[2019-01-27] MEDS: NEOMYC/POLYMYX/BACIT 30 GM OINT TOP SCH (08:41)
--- NOTE | 2019-01-27 08:45 | CONS ---
Assessment/Plan Assessment/Plan Hospital Course (Demo Recall) 63 yo male with anemia 1. Right heel necrotic wound. -s/p debridement of rt foot, silvadene cream 2. Cardiomyopathy with ejection fraction of 20% to 30%. 3. Peripheral vascular disease status post PCI, right lower extremity. 4. Coronary artery disease status post coronary artery bypass graft. 5. Status post automatic implantable cardioverter-defibrillator. 6. Hypertension. 7. Diabetes mellitus. 8. Anemia. Patient has a significant drop in hematocrit. So far, clinically, there is no evidence of obvious GI bleeding. 9. Ovoid mass or filling defect arising from lesser curvature of stomach. -GIST tumor 10. Pt is pre op for peripheral artery bypass surgery which is on hold for now. Plan EUS with FNA as outpatient to confirm GIST tumor diagnosis. Will likely need surgical removal of tumor in future. Spoke with patient today regarding GIST tumor. He will follow up with Dr. Roberts as outpatient. Office number of Dr. Roberts provided. Pt examined and plan of care discussed with Dr Roberts Consultation Date/Type/Reason Admit Date/Time January 09, 2019 at 18:17 Initial Consult Date 01/16/19 Requesting Provider: KRISTIN PRYOR MD Date/Time of Note DATE: 01/27/19 TIME: 08:44 24 HR Interval Summary Free Text/Dictation s/p debridement yesterday. pt has no complaints. Exam/Review of Systems Exam Vitals Vital Signs Date Temp Pulse Resp B/P (MAP) Pulse Ox O2 O2 Flow FiO2 Time Delivery Rate 01/27/19 98.0 86 18 130/58 96 07:47 (82) 01/25/19 Room Air 20:25 01/23/19 10 11:40 Intake and Output 01/26/19 01/26/19 01/27/19 1515:00 23:00 07:00 IntakeIntake Total 150 ml 800 ml 500 ml OutputOutput Total 200 ml 500 ml BalanceBalance 150 ml 600 ml 0 ml Constitutional: alert, oriented Psych: no complaints Head: normocephalic Eyes: nl sclera, PERRL ENMT: mucosa pink and moist Respiratory: normal air movement Cardiovascular: regular rate and rhythm Gastrointestinal: soft, non-tender, bowel sounds Musculoskeletal: nl gait and stance Extremities: other (rt foot bandaged) 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: nl mental status Results Result Diagram: 01/27/19 0609 01/27/19 0609 Results 24hrs Laboratory Tests Test 01/26/19 11:38 01/26/19 17:16 01/26/19 20:26 01/27/19 00:15 Bedside Glucose 286 H 192 239 H Vancomycin Level 14.9 Trough Test 01/27/19 01:42 01/27/19 06:09 01/27/19 07:53 Bedside Glucose 121 119 White Blood Count 7.6 Red Blood Count 3.08 L Hemoglobin 9.0 L Hematocrit 29.4 L Mean Corpuscular 95.5 Volume Mean Corpuscular 29.2 Hemoglobin Mean Corpuscular 30.6 L Hemoglobin Concent Red Cell 17.1 H Distribution Width Platelet Count 331 Mean Platelet Volume 10.6 H Immature 0.800 H Granulocytes % Neutrophils % 59.5 Lymphocytes % 25.5 Monocytes % 9.9 Eosinophils % 3.9 Basophils % 0.4 Nucleated Red Blood 0.0 Cells % Immature 0.060 H Granulocytes # Neutrophils # 4.5 Lymphocytes # 1.9 Monocytes # 0.8 Eosinophils # 0.3 Basophils # 0.0 Nucleated Red Blood 0.0 Cells # Sodium Level 137 Potassium Level 4.1 Chloride Level 102 Carbon Dioxide Level 28 Anion Gap 7 Blood Urea Nitrogen 18 Creatinine 0.65 Est Glomerular > 60 Filtrat Rate mL/min Glucose Level 115 Calcium Level 9.2 Medications Medication Current Medications Amiodarone HCl (Cordarone) 200 mg DAILY PO Last administered on 01/27/19at 08:28; Admin Dose 200 MG; Start 01/10/19 at 09:00 Digoxin (Digoxin) 0.125 mg DAILY@1300 PO Last administered on 01/26/19at 12:38; Admin Dose 0.125 MG; Start 01/10/19 at 13:00 Gabapentin (Neurontin) 600 mg DAILY PO Last administered on 01/26/19at 08:42; Admin Dose 600 MG; Start 01/10/19 at 09:00 Empaglifozin (Jardiance) 25 mg DAILY PO Last administered on 01/27/19at 08:27; Admin Dose 25 MG; Start 01/10/19 at 09:00 Linagliptin (Tradjenta) 5 mg DAILY PO Last administered on 01/27/19at 08:27; Admin Dose 5 MG; Start 01/10/19 at 09:00 Diagnostic Test (Pha) (Accu-Chek) 1 ea AC MEALS AND BEDTIME XX Last administered on 01/27/19 07:56; Admin Dose 1 EA; Start 01/09/19 at 21:00 Acetaminophen (Tylenol Tab) 650 mg Q4H PRN PO MILD PAIN(1-3)OR ELEVATED TEMP; Start 01/09/19 at 20:30 Ondansetron HCl (Zofran Inj) 4 mg Q6H PRN IV NAUSEA AND/OR VOMITING Last administered on 01/14/19 19:59; Admin Dose 4 MG; Start 01/09/19 at 20:30 Diagnostic Test (Pha) (Accu-Chek) 1 ea 02 XX Last administered on 01/27/19at 02:00; Admin Dose 1 EA; Start 01/10/19 at 02:00 Miscellaneous Information 1 ea NOTE XX ; Start 01/09/19 at 21:30 Glucose (Glutose) 15 gm Q15M PRN PO DECREASED GLUCOSE; Start 01/09/19 at 21:30 Glucose (Glutose) 22.5 gm Q15M PRN PO DECREASED GLUCOSE; Start 01/09/19 at 21:30 Dextrose (D50w Syringe) 25 ml Q15M PRN IV DECREASED GLUCOSE; Start 01/09/19 at 21:30 Dextrose (D50w Syringe) 50 ml Q15M PRN IV DECREASED GLUCOSE; Start 01/09/19 at 21:30 Glucagon (Glucagen) 1 mg Q15M PRN IM DECREASED GLUCOSE; Start 01/09/19 at 21:30 Glucose (Glutose) 15 gm Q15M PRN BUCCAL DECREASED GLUCOSE; Start 01/09/19 at 21:30 Insulin Glargine (Lantus) 18 units QHS SC Last administered on 01/26/19at 20:35; Admin Dose 18 UNITS; Start 01/09/19 at 22:30 Carvedilol (Coreg) 3.125 mg BID PO Last administered on 01/27/19at 08:29; Admin Dose 3.125 MG; Start 01/10/19 at 21:00 Vancomycin HCl (Vanco Iv Per Pharmacy) VANCOMYCIN PER PHARMACY PER PROTOCOL XX ; Start 01/11/19 at 02:30 Lisinopril (Zestril) 2.5 mg DAILY PO Last administered on 01/27/19 08:28; Admin Dose 2.5 MG; Start 01/13/19 at 09:00 Senna (Senokot) 1 tab DAILY PRN PO CONSTIPATION Last administered on 01/25/19 21:12; Admin Dose 1 TAB; Start 01/12/19 at 18:30 Docusate Sodium (Colace) 100 mg BID PRN PO CONSTIPATION Last administered on 01/26/19 20:43; Admin Dose 100 MG; Start 01/12/19 at 18:30 Neomycin/ Polymyxin/ Bacitracin (Neosporin Topical Oint) 1 applic DAILY TOP Last administered on 01/27/19 08:41; Admin Dose 1 APPLIC; Start 01/12/19 at 18:30 Cyanocobalamin (Vitamin B12 Inj) 1,000 mcg DAILY IM Last administered on 01/27/19 08:29; Admin Dose 1,000 MCG; Start 01/16/19 at 09:00 Pantoprazole (Protonix Tab) 40 mg DAILY@06 PO Last administered on 01/27/19 06:10; Admin Dose 40 MG; Start 01/17/19 at 06:00 Metronidazole 100 ml @ 100 mls/hr Q8 IVPB Last administered on 01/27/19 0 6:10; Admin Dose 100 MLS/HR; Start 01/16/19 at 22:00 Cefepime HCl 50 ml @ 100 mls/hr Q12 IVPB Last administered on 01/27/19 08:33; Admin Dose 100 MLS/HR; Start 01/17/19 at 21:00 Oxycodone HCl (Oxycontin) 10 mg BID PO Last administered on 01/27/19 08:40; Admin Dose 10 MG; Start 01/18/19 at 15:00 Furosemide (Lasix) 20 mg BID DIURETICS IV Last administered on 01/27/19 08:30; Admin Dose 20 MG; Start 01/21/19 at 18:30 Hydromorphone HCl (Dilaudid) 0.5 mg Q4H PRN IV SEVERE PAIN LEVEL 7-10 Last administered on 01/27/19 01:05; Admin Dose 0.5 MG; Start 01/22/19 at 13:00 Vancomycin HCl 1.25 gm/Sodium Chloride 250 ml @ 83.333 mls/ hr Q12H IVPB Last administered on 5/21/19at 01:41; Admin Dose 83.333 MLS/HR; Start 01/25/19 at 01:00 Insulin Aspart (Novolog Insulin Pen) NOVOLOG *MODERATE* ALGORITHM WITH MEALS BEDTIME SC Last administered on 01/26/19at 20:34; Admin Dose 2 UNIT; Start 01/26/19 at 21:00 TAMELA BOWMAN January 27, 2019 08:45
--- NOTE | 2019-01-27 12:31 | CONS ---
Assessment/Plan Assessment/Plan Hospital Course (Demo Recall) - polymicrobial infection of non-healing ulcer of R heel. CT on 01/10/2019 did not show evidence of OM. ESR 26 on 01/09/2019 and 37 on 01/12/2019; superficial wound cx Pseudomonas, E. Coli, Enterococcus (isolated from broth only), scant Proteus, and scant CoNS - s/p Debridement of the right calcaneal ulceration 01/13/2019; intraop cx grew E. Coli, Proteus, and Enterococcus - chronic wound of R heel, in the past the wound culture grew E. coli - h/o OM of R foot, h/o 6 weeks of IV vancomycin and ceftriaxone in 2018. 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 - Continue Cefepime (restart 01/17/2019-) for Pseudomonas, E. Coli and Proteus. PHOEBE Wyman spoke with [facility] who confirmed sensis of Cefepime to E. Coli and Proteus. E.coli is resistant to Amp-sulbactam - Continue IV vancomycin (01/11/2019-) - Continue Flagyl IV (01/16/19 -) - Hypotension s/p Dilaudid + Lasix - Fall precautions, and recheck BP - f/u path above plan d/w via [facility]. Consultation Date/Type/Reason Admit Date/Time January 09, 2019 at 18:17 Initial Consult Date 01/10/19 Requesting Provider: KRISTIN PRYOR MD Date/Time of Note DATE: 01/27/19 TIME: 12:31 24 HR Interval Summary Free Text/Dictation Pt has remained afebrile and asymptomatic. Detailed Summary Eyes: no complaints ENT: no complaints Respiratory: no complaints Cardiovascular: no complaints Gastrointestinal: no complaints Genitourinary: no complaints Musculoskeletal: other (right foot pain controlled with pain medication) Skin: no complaints Neurologic: no complaints Endocrine: no complaints Psychological: no complaints Exam/Review of Systems Exam Vitals Vital Signs Date Temp Pulse Resp B/P (MAP) Pulse Ox O2 O2 Flow FiO2 Time Delivery Rate 01/27/19 98.0 78 18 97/53 (68) 98 11:40 01/25/19 Room Air 20:25 01/23/19 10 11:40 Intake and Output 01/26/19 01/26/19 01/27/19 1515:00 23:00 07:00 IntakeIntake Total 150 ml 800 ml 500 ml OutputOutput Total 200 ml 500 ml BalanceBalance 150 ml 600 ml 0 ml Exam Constitutional: alert, oriented, well developed, obese; No distress Psych: nl mood/affect Head: normocephalic Eyes: EOMI, PERRL ENMT: mucosa pink and moist Neck: supple Respiratory: clear to auscultation, normal air movement; No congested cough, No crackles/rales Cardiovascular: regular rate and rhythm, edema (+1 BLE) Gastrointestinal: soft, non-tender, bowel sounds (normoactive); No rebound or guarding Extremities: No cyanosis, No clubbing 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: nl speech, nl strength Skin: other (right foot wound wrapped in kerlix and bandage) Results Result Diagram: 01/27/19 0609 01/27/19 0609 Results 24hrs Laboratory Tests Test 01/26/19 17:16 01/26/19 20:26 01/27/19 00:15 01/27/19 01:42 Bedside Glucose 192 239 H 121 Vancomycin Level 14.9 Trough Test 01/27/19 06:09 01/27/19 07:53 01/27/19 11:58 White Blood Count 7.6 Red Blood Count 3.08 L Hemoglobin 9.0 L Hematocrit 29.4 L Mean Corpuscular 95.5 Volume Mean Corpuscular 29.2 Hemoglobin Mean Corpuscular 30.6 L Hemoglobin Concent Red Cell 17.1 H Distribution Width Platelet Count 331 Mean Platelet Volume 10.6 H Immature 0.800 H Granulocytes % Neutrophils % 59.5 Lymphocytes % 25.5 Monocytes % 9.9 Eosinophils % 3.9 Basophils % 0.4 Nucleated Red Blood 0.0 Cells % Immature 0.060 H Granulocytes # Neutrophils # 4.5 Lymphocytes # 1.9 Monocytes # 0.8 Eosinophils # 0.3 Basophils # 0.0 Nucleated Red Blood 0.0 Cells # Sodium Level 137 Potassium Level 4.1 Chloride Level 102 Carbon Dioxide Level 28 Anion Gap 7 Blood Urea Nitrogen 18 Creatinine 0.65 Est Glomerular > 60 Filtrat Rate mL/min Glucose Level 115 Calcium Level 9.2 Bedside Glucose 119 143 Medications Medication Current Medications Amiodarone HCl (Cordarone) 200 mg DAILY PO Last administered on 01/27/19 08:28; Admin Dose 200 MG; Start 01/10/19 at 09:00 Digoxin (Digoxin) 0.125 mg DAILY@1300 PO Last administered on 01/26/19 12:38; Admin Dose 0.125 MG; Start 01/10/19 at 13:00 Gabapentin (Neurontin) 600 mg DAILY PO Last administered on 01/26/19 08:42; Admin Dose 600 MG; Start 01/10/19 at 09:00 Empaglifozin (Jardiance) 25 mg DAILY PO Last administered on 01/27/19 08:27; Admin Dose 25 MG; Start 01/10/19 at 09:00 Linagliptin (Tradjenta) 5 mg DAILY PO Last administered on 01/27/19 08:27; Admin Dose 5 MG; Start 01/10/19 at 09:00 Diagnostic Test (Pha) (Accu-Chek) 1 ea AC MEALS AND BEDTIME XX Last administered on 01/27/19 11:59; Admin Dose 1 EA; Start 01/09/19 at 21:00 Acetaminophen (Tylenol Tab) 650 mg Q4H PRN PO MILD PAIN(1-3)OR ELEVATED TEMP; Start 01/09/19 at 20:30 Ondansetron HCl (Zofran Inj) 4 mg Q6H PRN IV NAUSEA AND/OR VOMITING Last administered on 01/14/19 19:59; Admin Dose 4 MG; Start 01/09/19 at 20:30 Diagnostic Test (Pha) (Accu-Chek) 1 ea 02 XX Last administered on 01/27/19 02:00; Admin Dose 1 EA; Start 01/10/19 at 02:00 Miscellaneous Information 1 ea NOTE XX ; Start 01/09/19 at 21:30 Glucose (Glutose) 15 gm Q15M PRN PO DECREASED GLUCOSE; Start 01/09/19 at 21:30 Glucose (Glutose) 22.5 gm Q15M PRN PO DECREASED GLUCOSE; Start 01/09/19 at 21:30 Dextrose (D50w Syringe) 25 ml Q15M PRN IV DECREASED GLUCOSE; Start 01/09/19 at 21:30 Dextrose (D50w Syringe) 50 ml Q15M PRN IV DECREASED GLUCOSE; Start 01/09/19 at 21:30 Glucagon (Glucagen) 1 mg Q15M PRN IM DECREASED GLUCOSE; Start 01/09/19 at 21:30 Glucose (Glutose) 15 gm Q15M PRN BUCCAL DECREASED GLUCOSE; Start 01/09/19 at 21:30 Insulin Glargine (Lantus) 18 units QHS SC Last administered on 01/26/19at 20:35; Admin Dose 18 UNITS; Start 01/09/19 at 22:30 Carvedilol (Coreg) 3.125 mg BID PO Last administered on 01/27/19 08:29; Admin Dose 3.125 MG; Start 01/10/19 at 21:00 Vancomycin HCl (Vanco Iv Per Pharmacy) VANCOMYCIN PER PHARMACY PER PROTOCOL XX ; Start 01/11/19 at 02:30 Lisinopril (Zestril) 2.5 mg DAILY PO Last administered on 01/27/19 08:28; Admin Dose 2.5 MG; Start 01/13/19 at 09:00 Senna (Senokot) 1 tab DAILY PRN PO CONSTIPATION Last administered on 01/25/19 21:12; Admin Dose 1 TAB; Start 01/12/19 at 18:30 Docusate Sodium (Colace) 100 mg BID PRN PO CONSTIPATION Last administered on 01/26/19 20:43; Admin Dose 100 MG; Start 01/12/19 at 18:30 Neomycin/ Polymyxin/ Bacitracin (Neosporin Topical Oint) 1 applic DAILY TOP Last administered on 01/27/19 08:41; Admin Dose 1 APPLIC; Start 01/12/19 at 18:30 Cyanocobalamin (Vitamin B12 Inj) 1,000 mcg DAILY IM Last administered on 01/27/19 08:29; Admin Dose 1,000 MCG; Start 01/16/19 at 09:00 Pantoprazole (Protonix Tab) 40 mg DAILY@06 PO Last administered on 01/27/19 06:10; Admin Dose 40 MG; Start 01/17/19 at 06:00 Metronidazole 100 ml @ 100 mls/hr Q8 IVPB Last administered on 01/27/19 06:10; Admin Dose 100 MLS/HR; Start 01/16/19 at 22:00 Cefepime HCl 50 ml @ 100 mls/hr Q12 IVPB Last administered on 01/27/19 08:33; Admin Dose 100 MLS/HR; Start 01/17/19 at 21:00 Oxycodone HCl (Oxycontin) 10 mg BID PO Last administered on 01/27/19 08:40; Admin Dose 10 MG; Start 01/18/19 at 15:00 Furosemide (Lasix) 20 mg BID DIURETICS IV Last administered on 01/27/19 08:30; Admin Dose 20 MG; Start 01/21/19 at 18:30 Hydromorphone HCl (Dilaudid) 0.5 mg Q4H PRN IV SEVERE PAIN LEVEL 7-10 Last administered on 01/27/19 12:17; Admin Dose 0.5 MG; Start 01/22/19 at 13:00 Vancomycin HCl 1.25 gm/Sodium Chloride 250 ml @ 83.333 mls/ hr Q12H IVPB Last administered on 01/27/19 12:11; Admin Dose 83.333 MLS/HR; Start 01/25/19 at 01:00 Insulin Aspart (Novolog Insulin Pen) NOVOLOG *MODERATE* ALGORITHM WITH MEALS BEDTIME SC Last administered on 01/27/19 12:03; Admin Dose 2 UNIT; Start 01/26/19 at 21:00 BLANCO MAR NP January 27, 2019 12:31
[2019-01-27] MEDS: DIGOXIN 0.125 MG TAB PO SCH (13:16)
--- NOTE | 2019-01-27 14:09 | CONS ---
Assessment/Plan Assessment/Plan Hospital Course (Demo Recall) 63-year-old gentleman with history of coronary artery disease, status post CABG, also status post AICD placement, hypertension, diabetes, peripheral vascular disease, status post aortogram and right lower extremity runoff and percutaneous angioplasty of the posterior tibial artery and anterior tibial artery in 10/2018. Patient has a worsening RLE heel wound and thus admitted for sepsis. #Gastric mass -FNA consistent with GIST tumor -CT A/P does not show evidence of metastatic disease -pt needs surgical resection of the mass -depending on the grade of the GIST tumor and pathologic features patient may benefit from adjuvant imatinib therapy #Non healing right foot ulcer - s/p Debridement of the right calcaneal ulceration 01/13/2019; intraop cx grew E. Coli, Proteus, and Enterococcus -h/o 6 weeks of IV vancomycin and ceftriaxone in 2018 # Anemia-normocytic -Hg currently stable > 9 -likely 2/2 GI bleed -continue to hold all blood thinners -CT A/P does not reveal evidence of bleed -f/u endoscopy. pt was found with a T3.5 cm mass/filling defect arising along the lesser curvature of the stomach - consistent with GIST tumor Consultation Date/Type/Reason Admit Date/Time January 09, 2019 at 18:17 Initial Consult Date 01/16/19 Type of Consult oncology Reason for Consultation GIST tumor Requesting Provider: KRISTIN PRYOR MD Date/Time of Note DATE: 01/27/19 TIME: 14:02 24 HR Interval Summary Free Text/Dictation pt continues on IV abx Exam/Review of Systems Exam Vitals Vital Signs Date Temp Pulse Resp B/P (MAP) Pulse Ox O2 O2 Flow FiO2 Time Delivery Rate 01/27/19 77 12:00 01/27/19 98.0 18 97/53 (68) 98 11:40 01/25/19 Room Air 20:25 01/23/19 10 11:40 Intake and Output 01/26/19 01/26/19 01/27/19 1515:00 23:00 07:00 IntakeIntake Total 150 ml 800 ml 500 ml OutputOutput Total 200 ml 500 ml BalanceBalance 150 ml 600 ml 0 ml Constitutional: alert, oriented Psych: no complaints Head: normocephalic Eyes: nl conjunctiva ENMT: nl external ears & nose Neck: supple Respiratory: clear to auscultation Cardiovascular: regular rate and rhythm Gastrointestinal: soft Musculoskeletal: nl extremities to inspection Results Result Diagram: 01/27/19 0609 01/27/19 0609 Results 24hrs Laboratory Tests Test 01/26/19 17:16 01/26/19 20:26 01/27/19 00:15 01/27/19 01:42 Bedside Glucose 192 239 H 121 Vancomycin Level 14.9 Trough Test 01/27/19 06:09 01/27/19 07:53 01/27/19 11:58 White Blood Count 7.6 Red Blood Count 3.08 L Hemoglobin 9.0 L Hematocrit 29.4 L Mean Corpuscular 95.5 Volume Mean Corpuscular 29.2 Hemoglobin Mean Corpuscular 30.6 L Hemoglobin Concent Red Cell 17.1 H Distribution Width Platelet Count 331 Mean Platelet Volume 10.6 H Immature 0.800 H Granulocytes % Neutrophils % 59.5 Lymphocytes % 25.5 Monocytes % 9.9 Eosinophils % 3.9 Basophils % 0.4 Nucleated Red Blood 0.0 Cells % Immature 0.060 H Granulocytes # Neutrophils # 4.5 Lymphocytes # 1.9 Monocytes # 0.8 Eosinophils # 0.3 Basophils # 0.0 Nucleated Red Blood 0.0 Cells # Sodium Level 137 Potassium Level 4.1 Chloride Level 102 Carbon Dioxide Level 28 Anion Gap 7 Blood Urea Nitrogen 18 Creatinine 0.65 Est Glomerular > 60 Filtrat Rate mL/min Glucose Level 115 Calcium Level 9.2 Bedside Glucose 119 143 Medications Medication Current Medications Amiodarone HCl (Cordarone) 200 mg DAILY PO Last administered on 01/27/19 08:28 ; Admin Dose 200 MG; Start 01/10/19 at 09:00 Digoxin (Digoxin) 0.125 mg DAILY@1300 PO Last administered on 01/27/19at 13:16; Admin Dose 0.125 MG; Start 01/10/19 at 13:00 Gabapentin (Neurontin) 600 mg DAILY PO Last administered on 01/26/19at 08:42; Admin Dose 600 MG; Start 01/10/19 at 09:00 Empaglifozin (Jardiance) 25 mg DAILY PO Last administered on 01/27/19 08:27; Admin Dose 25 MG; Start 01/10/19 at 09:00 Linagliptin (Tradjenta) 5 mg DAILY PO Last administered on 01/27/19at 08:27; Admin Dose 5 MG; Start 01/10/19 at 09:00 Diagnostic Test (Pha) (Accu-Chek) 1 ea AC MEALS AND BEDTIME XX Last admin istered on 01/27/19at 11:59; Admin Dose 1 EA; Start 01/09/19 at 21:00 Acetaminophen (Tylenol Tab) 650 mg Q4H PRN PO MILD PAIN(1-3)OR ELEVATED TEMP; Start 01/09/19 at 20:30 Ondansetron HCl (Zofran Inj) 4 mg Q6H PRN IV NAUSEA AND/OR VOMITING Last administered on 01/14/19 19:59; Admin Dose 4 MG; Start 01/09/19 at 20:30 Diagnostic Test (Pha) (Accu-Chek) 1 ea 02 XX Last administered on 01/27/19at 02:00; Admin Dose 1 EA; Start 01/10/19 at 02:00 Miscellaneous Information 1 ea NOTE XX ; Start 01/09/19 at 21:30 Glucose (Glutose) 15 gm Q15M PRN PO DECREASED GLUCOSE; Start 01/09/19 at 21:30 Glucose (Glutose) 22.5 gm Q15M PRN PO DECREASED GLUCOSE; Start 01/09/19 at 21:30 Dextrose (D50w Syringe) 25 ml Q15M PRN IV DECREASED GLUCOSE; Start 01/09/19 at 21:30 Dextrose (D50w Syringe) 50 ml Q15M PRN IV DECREASED GLUCOSE; Start 01/09/19 at 21:30 Glucagon (Glucagen) 1 mg Q15M PRN IM DECREASED GLUCOSE; Start 01/09/19 at 21:30 Glucose (Glutose) 15 gm Q15M PRN BUCCAL DECREASED GLUCOSE; Start 01/09/19 at 21:30 Insulin Glargine (Lantus) 18 units QHS SC Last administered on 01/26/19at 20:35; Admin Dose 18 UNITS; Start 01/09/19 at 22:30 Carvedilol (Coreg) 3.125 mg BID PO Last administered on 01/27/19 08:29; Admin Dose 3.125 MG; Start 01/10/19 at 21:00 Vancomycin HCl (Vanco Iv Per Pharmacy) VANCOMYCIN PER PHARMACY PER PROTOCOL XX ; Start 01/11/19 at 02:30 Lisinopril (Zestril) 2.5 mg DAILY PO Last administered on 01/27/19 08:28; Admin Dose 2.5 MG; Start 01/13/19 at 09:00 Senna (Senokot) 1 tab DAILY PRN PO CONSTIPATION Last administered on 01/25/19 21:12; Admin Dose 1 TAB; Start 01/12/19 at 18:30 Docusate Sodium (Colace) 100 mg BID PRN PO CONSTIPATION Last administered on 01/26/19 20:43; Admin Dose 100 MG; Start 01/12/19 at 18:30 Neomycin/ Polymyxin/ Bacitracin (Neosporin Topical Oint) 1 applic DAILY TOP Last administered on 01/27/19 08:41; Admin Dose 1 APPLIC; Start 01/12/19 at 18:30 Cyanocobalamin (Vitamin B12 Inj) 1,000 mcg DAILY IM Last administered on 01/27/19 08:29; Admin Dose 1,000 MCG; Start 01/16/19 at 09:00 Pantoprazole (Protonix Tab) 40 mg DAILY@06 PO Last administered on 01/27/19 06:10; Admin Dose 40 MG; Start 01/17/19 at 06:00 Metronidazole 100 ml @ 100 mls/hr Q8 IVPB Last administered on 01/27/19 06:10; Admin Dose 100 MLS/HR; Start 01/16/19 at 22:00 Cefepime HCl 50 ml @ 100 mls/hr Q12 IVPB Last administered on 01/27/19 08:33; Admin Dose 100 MLS/HR; Start 01/17/19 at 21:00 Oxycodone HCl (Oxycontin) 10 mg BID PO Last administered on 01/27/19 08:40; Admin Dose 10 MG; Start 01/18/19 at 15:00 Furosemide (Lasix) 20 mg BID DIURETICS IV Last administered on 01/27/19 08:30; Admin Dose 20 MG; Start 01/21/19 at 18:30 Hydromorphone HCl (Dilaudid) 0.5 mg Q4H PRN IV SEVERE PAIN LEVEL 7-10 Last administered on 01/27/19 12:17; Admin Dose 0.5 MG; Start 01/22/19 at 13:00 Vancomycin HCl 1.25 gm/Sodium Chloride 250 ml @ 83.333 mls/ hr Q12H IVPB Last administered on 01/27/19at 12:11; Admin Dose 83.333 MLS/HR; Start 01/25/19 at 01:00 Insulin Aspart (Novolog Insulin Pen) NOVOLOG *MODERATE* ALGORITHM WITH MEALS BEDTIME SC Last administered on 01/27/19 12:03; Admin Dose 2 UNIT; Start 01/26/19 at 21:00 TJ QUINTERO M.D. January 27, 2019 14:09
--- NOTE | 2019-01-27 14:36 | CONS ---
Consult Date/Type/Reason Admit Date/Time January 09, 2019 at 18:17 Initial Consult Date 01/10/19 Requesting Provider: KRISTIN PRYOR MD Date/Time of Note DATE: 01/27/19 TIME: 14:35 Subjective NO acute events - on anti-Bx now - no focal ectopy - cont med rx ROS: No fever, no chills, no nausea, no vomiting, no diarrhea/constipation No recent weight changes No chest pain, no PND, no orthopnea - improved SOB No dizziness, blurred vision No thirst, no heat or cold intolerance Objective Vitals Vital Signs Date Temp Pulse Resp B/P (MAP) Pulse Ox O2 O2 Flow FiO2 Time Delivery Rate 01/27/19 77 12:00 01/27/19 98.0 18 97/53 (68) 98 11:40 01/25/19 Room Air 20:25 01/23/19 10 11:40 Intake and Output 01/26/19 01/26/19 01/27/19 1515:00 23:00 07:00 IntakeIntake Total 150 ml 800 ml 500 ml OutputOutput Total 200 ml 500 ml BalanceBalance 150 ml 600 ml 0 ml Exam General: WN/WD/NAD, AOx 3 HEENT: Unicetric/atraumatic/EOMI (follow commands) NECK: JVD elevated, no thyromegaly Lymph: no lymphadenopathy HEART: regular with no S3, II/ systolic murmur at apex LUNGS: Coarse sounds ABD: soft, NT, ND, +BS : Intact Neuro: non focal SKIN: chronic changes EXT: 1+ edema, bandages Results/Medications Result Diagram: 01/27/19 0609 01/27/19 0609 Results 24 hrs Laboratory Tests Test 01/26/19 17:16 01/26/19 20:26 01/27/19 00:15 01/27/19 01:42 Bedside Glucose 192 239 H 121 Vancomycin Level 14.9 Trough Test 01/27/19 06:09 01/27/19 07:53 01/27/19 11:58 White Blood Count 7.6 Red Blood Count 3.08 L Hemoglobin 9.0 L Hematocrit 29.4 L Mean Corpuscular 95.5 Volume Mean Corpuscular 29.2 Hemoglobin Mean Corpuscular 30.6 L Hemoglobin Concent Red Cell 17.1 H Distribution Width Platelet Count 331 Mean Platelet Volume 10.6 H Immature 0.800 H Granulocytes % Neutrophils % 59.5 Lymphocytes % 25.5 Monocytes % 9.9 Eosinophils % 3.9 Basophils % 0.4 Nucleated Red Blood 0.0 Cells % Immature 0.060 H Granulocytes # Neutrophils # 4.5 Lymphocytes # 1.9 Monocytes # 0.8 Eosinophils # 0.3 Basophils # 0.0 Nucleated Red Blood 0.0 Cells # Sodium Level 137 Potassium Level 4.1 Chloride Level 102 Carbon Dioxide Level 28 Anion Gap 7 Blood Urea Nitrogen 18 Creatinine 0.65 Est Glomerular > 60 Filtrat Rate mL/min Glucose Level 115 Calcium Level 9.2 Bedside Glucose 119 143 Home Meds Reported Medications Amiodarone Hcl* (Amiodarone Hcl*) 200 Mg Tablet, 200 MG PO DAILY, #30 TAB 01/09/19 Digoxin* (Digitek*) 125 Mcg Tablet, 0.125 MG PO DAILY, TAB 01/09/19 Rivaroxaban* (Xarelto*) 20 Mg Tablet, 20 MG PO WITH DINNER, TAB 01/09/19 Clopidogrel Bisulfate* (Clopidogrel Bisulfate*) 75 Mg Tablet, 75 MG PO DAILY, #30 TAB 01/09/19 Empagliflozin (Jardiance) 25 Mg Tablet, 25 MG PO DAILY, TAB 01/09/19 Insulin Glargine,Hum.rec.anlog (Basaglar Kwikpen U-100) 100 Unit/1 Ml Insuln.pen, 18 UNIT SC QHS, EA 01/09/19 Sulfamethoxazole/Trimethoprim* (Bactrim Ds* Tablet) 1 Each Tablet, 1 TAB PO BID, TAB FOR 10 DAYS,START TAKING 01/06/19 01/09/19 Tapentadol Hcl (Nucynta) 100 Mg Tablet, 100 MG PO BID, TAB 01/09/19 Gabapentin* (Gabapentin*) 600 Mg Tablet, 600 MG PO DAILY, #60 TAB 01/09/19 Metformin Hcl* (Metformin Hcl*) 1,000 Mg Tablet, 1000 MG PO WITH BREAKFAST DINNE, #60 TAB 01/09/19 Medications Current Medications Amiodarone HCl (Cordarone) 200 mg DAILY PO Last administered on 01/27/19at 08:28; Admin Dose 200 MG; Start 01/10/19 at 09:00 Digoxin (Digoxin) 0.125 mg DAILY@1300 PO Last administered on 5/21/19at 13:16; Admin Dose 0.125 MG; Start 01/10/19 at 13:00 Gabapentin (Neurontin) 600 mg DAILY PO Last administered on 01/26/19 08:42; Admin Dose 600 MG; Start 01/10/19 at 09:00 Empaglifozin (Jardiance) 25 mg DAILY PO Last administered on 01/27/19 08:27; Admin Dose 25 MG; Start 01/10/19 at 09:00 Linagliptin (Tradjenta) 5 mg DAILY PO Last administered on 01/27/19 08:27; Admin Dose 5 MG; Start 01/10/19 at 09:00 Diagnostic Test (Pha) (Accu-Chek) 1 ea AC MEALS AND BEDTIME XX Last administ ered on 01/27/19 11:59; Admin Dose 1 EA; Start 01/09/19 at 21:00 Acetaminophen (Tylenol Tab) 650 mg Q4H PRN PO MILD PAIN(1-3)OR ELEVATED TEMP; Start 01/09/19 at 20:30 Ondansetron HCl (Zofran Inj) 4 mg Q6H PRN IV NAUSEA AND/OR VOMITING Last administered on 01/14/19 19:59; Admin Dose 4 MG; Start 01/09/19 at 20:30 Diagnostic Test (Pha) (Accu-Chek) 1 ea 02 XX Last administered on 01/27/19at 02:00; Admin Dose 1 EA; Start 01/10/19 at 02:00 Miscellaneous Information 1 ea NOTE XX ; Start 01/09/19 at 21:30 Glucose (Glutose) 15 gm Q15M PRN PO DECREASED GLUCOSE; Start 01/09/19 at 21:30 Glucose (Glutose) 22.5 gm Q15M PRN PO DECREASED GLUCOSE; Start 01/09/19 at 21:30 Dextrose (D50w Syringe) 25 ml Q15M PRN IV DECREASED GLUCOSE; Start 01/09/19 at 21:30 Dextrose (D50w Syringe) 50 ml Q15M PRN IV DECREASED GLUCOSE; Start 01/09/19 at 21:30 Glucagon (Glucagen) 1 mg Q15M PRN IM DECREASED GLUCOSE; Start 01/09/19 at 21:30 Glucose (Glutose) 15 gm Q15M PRN BUCCAL DECREASED GLUCOSE; Start 01/09/19 at 21:30 Insulin Glargine (Lantus) 18 units QHS SC Last administered on 01/26/19 20:35; Admin Dose 18 UNITS; Start 01/09/19 at 22:30 Carvedilol (Coreg) 3.125 mg BID PO Last administered on 01/27/19 08:29; Admin Dose 3.125 MG; Start 01/10/19 at 21:00 Vancomycin HCl (Vanco Iv Per Pharmacy) VANCOMYCIN PER PHARMACY PER PROTOCOL XX ; Start 01/11/19 at 02:30 Lisinopril (Zestril) 2.5 mg DAILY PO Last administered on 01/27/19 08:28; Admin Dose 2.5 MG; Start 01/13/19 at 09:00 Senna (Senokot) 1 tab DAILY PRN PO CONSTIPATION Last administered on 01/25/19 21:12; Admin Dose 1 TAB; Start 01/12/19 at 18:30 Docusate Sodium (Colace) 100 mg BID PRN PO CONSTIPATION Last administered on 01/26/19 20:43; Admin Dose 100 MG; Start 01/12/19 at 18:30 Neomycin/ Polymyxin/ Bacitracin (Neosporin Topical Oint) 1 applic DAILY TOP Last administered on 01/27/19 08:41; Admin Dose 1 APPLIC; Start 01/12/19 at 18:30 Cyanocobalamin (Vitamin B12 Inj) 1,000 mcg DAILY IM Last administered on 01/27/19 08:29; Admin Dose 1,000 MCG; Start 01/16/19 at 09:00 Pantoprazole (Protonix Tab) 40 mg DAILY@06 PO Last administered on 01/27/19 06 :10; Admin Dose 40 MG; Start 01/17/19 at 06:00 Metronidazole 100 ml @ 100 mls/hr Q8 IVPB Last administered on 01/27/19 06:10; Admin Dose 100 MLS/HR; Start 01/16/19 at 22:00 Cefepime HCl 50 ml @ 100 mls/hr Q12 IVPB Last administered on 01/27/19 08:33; Admin Dose 100 MLS/HR; Start 01/17/19 at 21:00 Oxycodone HCl (Oxycontin) 10 mg BID PO Last administered on 5/21/19at 08:40; Admin Dose 10 MG; Start 01/18/19 at 15:00 Furosemide (Lasix) 20 mg BID DIURETICS IV Last administered on 01/27/19at 0 8:30; Admin Dose 20 MG; Start 01/21/19 at 18:30 Hydromorphone HCl (Dilaudid) 0.5 mg Q4H PRN IV SEVERE PAIN LEVEL 7-10 Last administered on 01/27/19at 12:17; Admin Dose 0.5 MG; Start 01/22/19 at 13:00 Vancomycin HCl 1.25 gm/Sodium Chloride 250 ml @ 83.333 mls/ hr Q12H IVPB Last administered on 01/27/19at 12:11; Admin Dose 83.333 MLS/HR; Start 01/25/19 at 01:00 Insulin Aspart (Novolog Insulin Pen) NOVOLOG *MODERATE* ALGORITHM WITH MEALS BEDTIME SC Last administered on 01/27/19at 12:03; Admin Dose 2 UNIT; Start 01/26/19 at 21:00 Assessment/Plan Hospital Course (Demo Recall) 1.Pre-op for peripheral bypass surgery. Lexiscan with no ischemia/+scar EF 28%. Echo EF 25%. OK to proceed to surgery at moderate CV risk - stable now - on hold for now - con't wound care. Treated. Pt planned for EGD - OK to proceed if needed from cardiac standpoint. Awaiting surgical dispo now for foot care. 2.Cardiomyopathy with low EF-severely depressed by echo this admit - mild CHF, con't gentle diuresis - stable fluid satus. BiV upgrade planned per Dr. Herrera. Stable. Defer to DR. Bowman. 3.HTN - well Rx - on therapy now - in good range now. TREATED. 4.HL 5.Non-healing LE ulcer - in bandage, will follow - con't wound care. Pain better Rx. 6.PAD-severe s/p prior [employer] 7.DM - on meds, keep euglycemic 8. A. Fib - in sinus now, paroxysmal - on amio - off anti-coag with low H/H - Hg 9.0 now. MIGUEL WADE MD January 27, 2019 14:36
--- NOTE | 2019-01-27 17:12 | PN ---
Date/Time of Note Date/Time of Note DATE: 01/27/19 TIME: 17:08 Assessment/Plan VTE Prophylaxis Risk score (from Ns)>0 risk: 3 SCD applied (from Ns): Yes Pharmacological prophylaxis: NA/contraindicated Pharm contraindication: anticoag not tolerated Lines/Catheters IV Catheter Type (from Nrsg): Saline Lock Urinary Cath still in place: No Assessment/Plan Hospital Course Patient remains hemodynamically stable, afebrile pain is currently well controlled. Discussed with Dr. Sheppard unable to do surgery this week with recommendation to follow-up as an outpatient. Patient is currently on 3 antibiotics for wound infection with recommendation for jail facility for continuation of antibiotic therapy and wound care. Dr. Urbano contacted for final antibiotics recommendation. I spoke with patient, patient is reluctant to go to jail facility asking to go home with home health if possible. Patient has a right chest triple lumen catheter, will obtain PICC line for antibiotics. Assessment/Plan -GIST tumor per EGD. Continue PPI. Dr. Roberts is following in gastroenterology consultation. -New onset of anemia and hypotension requiring blood transfusion on 01/15/2019, stool for OB is negative. -Right heel necrotic wound. Dr. Mata is following in podiatry consultation. Status post debridement. Continue antibiotics per ID. Dr. Urbano is following in infection disease consultation. -Chronic peripheral vascular disease, history of angioplasty x2. Dr. Sheppard is following in vascular surgery consultation. Plan for a right pop DP bypass which is on hold due to GI issues. -Coronary artery disease, status post coronary artery bypass graft. -Cardiomyopathy with ejection fraction of 25%. Continue Coreg. Dr. Foster is following in cardiology consultation. -Status post AICD. -Hx of Hypertension. -Diabetes hemoglobin A1c 7.6. Continue Lantus and NovoLog. -Right knee contusion and abrasion status post fall. Status post evaluation by Dr. Zelaya and orthopedic surgery. No signs of fracture or dystrophic dislocation. -Chronic low back pain with significant spondylolisthesis grade II at the level of L5 to S1. Further recommendations based on clinical course. Plan of care discussed with Dr. Mann. Result Diagram: 01/27/19 0609 01/27/19 0609 Results 24hrs Laboratory Tests Test 01/26/19 17:16 01/26/19 20:26 01/27/19 00:15 01/27/19 01:42 Bedside Glucose 192 239 H 121 Vancomycin Level 14.9 Trough Test 01/27/19 06:09 01/27/19 07:53 01/27/19 11:58 White Blood Count 7.6 Red Blood Count 3.08 L Hemoglobin 9.0 L Hematocrit 29.4 L Mean Corpuscular 95.5 Volume Mean Corpuscular 29.2 Hemoglobin Mean Corpuscular 30.6 L Hemoglobin Concent Red Cell 17.1 H Distribution Width Platelet Count 331 Mean Platelet Volume 10.6 H Immature 0.800 H Granulocytes % Neutrophils % 59.5 Lymphocytes % 25.5 Monocytes % 9.9 Eosinophils % 3.9 Basophils % 0.4 Nucleated Red Blood 0.0 Cells % Immature 0.060 H Granulocytes # Neutrophils # 4.5 Lymphocytes # 1.9 Monocytes # 0.8 Eosinophils # 0.3 Basophils # 0.0 Nucleated Red Blood 0.0 Cells # Sodium Level 137 Potassium Level 4.1 Chloride Level 102 Carbon Dioxide Level 28 Anion Gap 7 Blood Urea Nitrogen 18 Creatinine 0.65 Est Glomerular > 60 Filtrat Rate mL/min Glucose Level 115 Calcium Level 9.2 Bedside Glucose 119 143 Exam/Review of Systems Exam Vitals Vital Signs Date Temp Pulse Resp B/P (MAP) Pulse Ox O2 O2 Flow FiO2 Time Delivery Rate 01/27/19 98.0 96 18 96/57 (70) 98 16:48 01/25/19 Room Air 20:25 01/23/19 10 11:40 Intake and Output 01/26/19 01/26/19 01/27/19 1515:00 23:00 07:00 IntakeIntake Total 150 ml 800 ml 500 ml OutputOutput Total 200 ml 500 ml BalanceBalance 150 ml 600 ml 0 ml Exam Constitutional: alert, oriented Respiratory: clear to auscultation Cardiovascular: regular rhythm and rate, AICD Gastrointestinal: soft, non-tender Extremities: normal pulses, other (Right heel wound) Right chest triple lumen catheter Results Results 24hrs Laboratory Tests Test 01/26/19 17:16 01/26/19 20:26 01/27/19 00:15 01/27/19 01:42 Bedside Glucose 192 239 H 121 Vancomycin Level 14.9 Trough Test 01/27/19 06:09 01/27/19 07:53 01/27/19 11:58 White Blood Count 7.6 Red Blood Count 3.08 L Hemoglobin 9.0 L Hematocrit 29.4 L Mean Corpuscular 95.5 Volume Mean Corpuscular 29.2 Hemoglobin Mean Corpuscular 30.6 L Hemoglobin Concent Red Cell 17.1 H Distribution Width Platelet Count 331 Mean Platelet Volume 10.6 H Immature 0.800 H Granulocytes % Neutrophils % 59.5 Lymphocytes % 25.5 Monocytes % 9.9 Eosinophils % 3.9 Basophils % 0.4 Nucleated Red Blood 0.0 Cells % Immature 0.060 H Granulocytes # Neutrophils # 4.5 Lymphocytes # 1.9 Monocytes # 0.8 Eosinophils # 0.3 Basophils # 0.0 Nucleated Red Blood 0.0 Cells # Sodium Level 137 Potassium Level 4.1 Chloride Level 102 Carbon Dioxide Level 28 Anion Gap 7 Blood Urea Nitrogen 18 Creatinine 0.65 Est Glomerular > 60 Filtrat Rate mL/min Glucose Level 115 Calcium Level 9.2 Bedside Glucose 119 143 Medications Medication Current Medications Amiodarone HCl (Cordarone) 200 mg DAILY PO Last administered on 01/27/19 0 8:28; Admin Dose 200 MG; Start 01/10/19 at 09:00 Digoxin (Digoxin) 0.125 mg DAILY@1300 PO Last administered on 01/27/19 13:16; Admin Dose 0.125 MG; Start 01/10/19 at 13:00 Gabapentin (Neurontin) 600 mg DAILY PO Last administered on 01/26/19 08:42; Admin Dose 600 MG; Start 01/10/19 at 09:00 Empaglifozin (Jardiance) 25 mg DAILY PO Last administered on 01/27/19 08:27; Admin Dose 25 MG; Start 01/10/19 at 09:00 Linagliptin (Tradjenta) 5 mg DAILY PO Last administered on 01/27/19 08:27; Admin Dose 5 MG; Start 01/10/19 at 09:00 Diagnostic Test (Pha) (Accu-Chek) 1 ea AC MEALS AND BEDTIME XX Last a dministered on 01/27/19 11:59; Admin Dose 1 EA; Start 01/09/19 at 21:00 Acetaminophen (Tylenol Tab) 650 mg Q4H PRN PO MILD PAIN(1-3)OR ELEVATED TEMP; Start 01/09/19 at 20:30 Ondansetron HCl (Zofran Inj) 4 mg Q6H PRN IV NAUSEA AND/OR VOMITING Last administered on 01/14/19 19:59; Admin Dose 4 MG; Start 01/09/19 at 20:30 Diagnostic Test (Pha) (Accu-Chek) 1 ea 02 XX Last administered on 01/27/19at 02: 00; Admin Dose 1 EA; Start 01/10/19 at 02:00 Miscellaneous Information 1 ea NOTE XX ; Start 01/09/19 at 21:30 Glucose (Glutose) 15 gm Q15M PRN PO DECREASED GLUCOSE; Start 01/09/19 at 21:30 Glucose (Glutose) 22.5 gm Q15M PRN PO DECREASED GLUCOSE; Start 01/09/19 at 21:30 Dextrose (D50w Syringe) 25 ml Q15M PRN IV DECREASED GLUCOSE; Start 01/09/19 at 21:30 Dextrose (D50w Syringe) 50 ml Q15M PRN IV DECREASED GLUCOSE; Start 01/09/19 at 21:30 Glucagon (Glucagen) 1 mg Q15M PRN IM DECREASED GLUCOSE; Start 01/09/19 at 21:30 Glucose (Glutose) 15 gm Q15M PRN BUCCAL DECREASED GLUCOSE; Start 01/09/19 at 21:30 Insulin Glargine (Lantus) 18 units QHS SC Last administered on 01/26/19at 20:35; Admin Dose 18 UNITS; Start 01/09/19 at 22:30 Carvedilol (Coreg) 3.125 mg BID PO Last administered on 01/27/19at 08:29; Admin Dose 3.125 MG; Start 01/10/19 at 21:00 Vancomycin HCl (Vanco Iv Per Pharmacy) VANCOMYCIN PER PHARMACY PER PROTOCOL XX ; Start 01/11/19 at 02:30 Lisinopril (Zestril) 2.5 mg DAILY PO Last administered on 01/27/19at 08:28; Admin Dose 2.5 MG; Start 01/13/19 at 09:00 Senna (Senokot) 1 tab DAILY PRN PO CONSTIPATION Last administered on 01/25/19 21:12; Admin Dose 1 TAB; Start 01/12/19 at 18:30 Docusate Sodium (Colace) 100 mg BID PRN PO CONSTIPATION Last administered on 01/26/19at 20:43; Admin Dose 100 MG; Start 01/12/19 at 18:30 Neomycin/ Polymyxin/ Bacitracin (Neosporin Topical Oint) 1 applic DAILY TOP Last administered on 01/27/19 08:41; Admin Dose 1 APPLIC; Start 01/12/19 at 18:30 Cyanocobalamin (Vitamin B12 Inj) 1,000 mcg DAILY IM Last administered on 01/27/19 08:29; Admin Dose 1,000 MCG; Start 01/16/19 at 09:00 Pantoprazole (Protonix Tab) 40 mg DAILY@06 PO Last administered on 01/27/19 06:10; Admin Dose 40 MG; Start 01/17/19 at 06:00 Metronidazole 100 ml @ 100 mls/hr Q8 IVPB Last administered on 01/27/19 14:45; Admin Dose 100 MLS/HR; Start 01/16/19 at 22:00 Cefepime HCl 50 ml @ 100 mls/hr Q12 IVPB Last administered on 01/27/19 08:33; Admin Dose 100 MLS/HR; Start 01/17/19 at 21:00 Oxycodone HCl (Oxycontin) 10 mg BID PO Last administered on 01/27/19 08:40; Admin Dose 10 MG; Start 01/18/19 at 15:00 Furosemide (Lasix) 20 mg BID DIURETICS IV Last administered on 01/27/19 08:30; Admin Dose 20 MG; Start 01/21/19 at 18:30 Hydromorphone HCl (Dilaudid) 0.5 mg Q4H PRN IV SEVERE PAIN LEVEL 7-10 Last administered on 01/27/19 16:29; Admin Dose 0.5 MG; Start 01/22/19 at 13:00 Vancomycin HCl 1.25 gm/Sodium Chloride 250 ml @ 83.333 mls/ hr Q12H IVPB Last administered on 01/27/19 12:11; Admin Dose 83.333 MLS/HR; Start 01/25/19 at 01:00 Insulin Aspart (Novolog Insulin Pen) NOVOLOG *MODERATE* ALGORITHM WITH MEALS BEDTIME SC Last administered on 01/27/19 12:03; Admin Dose 2 UNIT; Start 01/26/19 at 21:00 RAMESH SOLORZANO January 27, 2019 17:12
[2019-01-27] MEDS ORDERED: LIDOCAINE 1% (MPF) 5 ML VIAL SC ONE (17:30)
[2019-01-27] MEDS: INSULIN GLARGINE [LANTus] (100 UNITS/ML) SYG SC SCH (20:43)
[2019-01-28] VITALS (11 sets, daily range): BP systolic 93–114; BP diastolic 50–70; PULSE 61–82; RESP 16–18
[2019-01-28] MEDS: VANCOMYCIN HCL 1.25 GM in SOD CHLORIDE 0.9% 250 ML IVPB SCH ×2 (00:43→12:23)
[2019-01-28] MEDS: HYDROmorphONE 0.5 MG/0.5 ML SYG IV PRN ×6 (00:44→23:35)
[2019-01-28] MEDS: ACCU-CHEK XX SCH ×5 (02:34→21:26)
[2019-01-28] MEDS: PANTOPRAZOLE (EC) 40 MG TAB PO SCH (05:02)
[2019-01-28] MEDS: metroNIDAZOLE 500 MG/NS (PMX) 100 ML IVPB SCH ×3 (05:03→21:26)
[2019-01-28] MEDS: FUROSEMIDE 20 MG INJ IV SCH ×2 (06:00→18:07)
[2019-01-28] MEDS: INSULIN ASPART [NOVOLOG] 3 ML PEN SC SCH ×4 (07:44→21:32)
[2019-01-28] MEDS: EMPAGLIFLOZIN 10 MG TABLET PO SCH (07:45)
[2019-01-28] MEDS: LINAGLIPTIN 5 MG TABLET PO SCH (07:45)
[2019-01-28] MEDS: LISINOPRIL 5 MG TAB PO SCH (08:58)
[2019-01-28] MEDS: GABAPENTIN 300 MG CAP PO SCH (09:06)
[2019-01-28] MEDS: AMIODARONE 200 MG TAB PO SCH (09:06)
--- NOTE | 2019-01-28 09:06 | CONS ---
Assessment/Plan Assessment/Plan Hospital Course (Demo Recall) 63-year-old gentleman with history of coronary artery disease, status post CABG, also status post AICD placement, hypertension, diabetes, peripheral vascular disease, status post aortogram and right lower extremity runoff and percutaneous angioplasty of the posterior tibial artery and anterior tibial artery in 10/2018. Patient has a worsening RLE heel wound and thus admitted for sepsis. #Gastric mass -pt to have EUS and FNA ans an out patient. 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 Coli, Proteus, and Enterococcus -h/o 6 weeks of IV vancomycin and ceftriaxone in 2018 -need bypass surgery in future # Anemia-normocytic -Hg currently stable > 9 -likely 2/2 GI bleed -continue to hold all blood thinners -CT A/P does not reveal evidence of bleed -f/u endoscopy. pt was found with a T3.5 cm mass/filling defect arising along the lesser curvature of the stomach - consistent with GIST tumor Consultation Date/Type/Reason Admit Date/Time January 09, 2019 at 18:17 Initial Consult Date 01/16/19 Type of Consult oncology Reason for Consultation anemia/ gastric mass Requesting Provider: KRISTIN PRYOR MD Date/Time of Note DATE: 01/28/19 TIME: 09:03 24 HR Interval Summary Free Text/Dictation no acute overnight events Exam/Review of Systems Exam Vitals Vital Signs Date Temp Pulse Resp B/P (MAP) Pulse Ox O2 O2 Flow FiO2 Time Delivery Rate 01/28/19 97.5 68 18 103/55 98 Room Air 07:09 (71) Intake and Output 01/27/19 01/27/19 01/28/19 1515:00 23:00 07:00 IntakeIntake Total 50 ml 1150 ml 500 ml OutputOutput Total 3000 ml 700 ml BalanceBalance 50 ml -1850 ml -200 ml Constitutional: alert, oriented Psych: no complaints Head: normocephalic Eyes: nl conjunctiva ENMT: nl external ears & nose Neck: supple Respiratory: clear to auscultation Cardiovascular: regular rate and rhythm Gastrointestinal: soft Musculoskeletal: nl extremities to inspection Extremities: other (R heel necrotic wound) Results Result Diagram: 01/27/19 0609 01/27/19 0609 Results 24hrs Laboratory Tests Test 01/27/19 11:58 01/27/19 17:28 01/27/19 20:38 01/28/19 02:31 Bedside Glucose 143 169 189 143 Test 01/28/19 07:43 Bedside Glucose 111 Medications Medication Current Medications Amiodarone HCl (Cordarone) 200 mg DAILY PO Last administered on 01/27/19 08:28; Admin Dose 200 MG; Start 01/10/19 at 09:00 Digoxin (Digoxin) 0.125 mg DAILY@1300 PO Last administered on 01/27/19 13:16; Admin Dose 0.125 MG; Start 01/10/19 at 13:00 Gabapentin (Neurontin) 600 mg DAILY PO Last administered on 01/26/19 08:42; Admin Dose 600 MG; Start 01/10/19 at 09:00 Empaglifozin (Jardiance) 25 mg DAILY PO Last administered on 01/28/19 07:45; Admin Dose 25 MG; Start 01/10/19 at 09:00 Linagliptin (Tradjenta) 5 mg DAILY PO Last administered on 01/28/19 07:45; Admin Dose 5 MG; Start 01/10/19 at 09:00 Diagnostic Test (Pha) (Accu-Chek) 1 ea AC MEALS AND BEDTIME XX Last administered on 01/28/19 07:47; Admin Dose 1 EA; Start 01/09/19 at 21:00 Acetaminophen (Tylenol Tab) 650 mg Q4H PRN PO MILD PAIN(1-3)OR ELEVATED TEMP; Start 01/09/19 at 20:30 Ondansetron HCl (Zofran Inj) 4 mg Q6H PRN IV NAUSEA AND/OR VOMITING Last administered on 01/14/19 19:59; Admin Dose 4 MG; Start 01/09/19 at 20:30 Diagnostic Test (Pha) (Accu-Chek) 1 ea 02 XX Last administered on 01/28/19 02:34; Admin Dose 1 EA; Start 01/10/19 at 02:00 Miscellaneous Information 1 ea NOTE XX ; Start 01/09/19 at 21:30 Glucose (Glutose) 15 gm Q15M PRN PO DECREASED GLUCOSE; Start 01/09/19 at 21:30 Glucose (Glutose) 22.5 gm Q15M PRN PO DECREASED GLUCOSE; Start 01/09/19 at 21:30 Dextrose (D50w Syringe) 25 ml Q15M PRN IV DECREASED GLUCOSE; Start 01/09/19 at 21:30 Dextrose (D50w Syringe) 50 ml Q15M PRN IV DECREASED GLUCOSE; Start 01/09/19 at 21:30 Glucagon (Glucagen) 1 mg Q15M PRN IM DECREASED GLUCOSE; Start 01/09/19 at 21:30 Glucose (Glutose) 15 gm Q15M PRN BUCCAL DECREASED GLUCOSE; Start 01/09/19 at 21:30 Insulin Glargine (Lantus) 18 units QHS SC Last administered on 01/27/19 20:43; Admin Dose 18 UNITS; Start 01/09/19 at 22:30 Carvedilol (Coreg) 3.125 mg BID PO Last administered on 01/27/19 08:29; Admin Dose 3.125 MG; Start 01/10/19 at 21:00 Vancomycin HCl (Vanco Iv Per Pharmacy) VANCOMYCIN PER PHARMACY PER PROTOCOL XX ; Start 01/11/19 at 02:30 Lisinopril (Zestril) 2.5 mg DAILY PO Last administered on 01/27/19 08:28; Admin Dose 2.5 MG; Start 01/13/19 at 09:00 Senna (Senokot) 1 tab DAILY PRN PO CONSTIPATION Last administered on 01/25/19 21:12; Admin Dose 1 TAB; Start 01/12/19 at 18:30 Docusate Sodium (Colace) 100 mg BID PRN PO CONSTIPATION Last administered on 01/26/19 20:43; Admin Dose 100 MG; Start 01/12/19 at 18:30 Neomycin/ Polymyxin/ Bacitracin (Neosporin Topical Oint) 1 applic DAILY TOP Last administered on 01/27/19 08:41; Admin Dose 1 APPLIC; Start 01/12/19 at 18:30 Cyanocobalamin (Vitamin B12 Inj) 1,000 mcg DAILY IM Last administered on 08:29; Admin Dose 1,000 MCG; Start 01/16/19 at 09:00 Pantoprazole (Protonix Tab) 40 mg DAILY@06 PO Last administered on 01/28/19 05:02; Admin Dose 40 MG; Start 01/17/19 at 06:00 Metronidazole 100 ml @ 100 mls/hr Q8 IVPB Last administered on 01/28/19 05:03; Admin Dose 100 MLS/HR; Start 01/16/19 at 22:00 Cefepime HCl 50 ml @ 100 mls/hr Q12 IVPB Last administered on 01/27/19 20:40; Admin Dose 100 MLS/HR; Start 01/17/19 at 21:00 Oxycodone HCl (Oxycontin) 10 mg BID PO Last administered on 01/27/19 21:45; Admin Dose 10 MG; Start 01/18/19 at 15:00 Furosemide (Lasix) 20 mg BID DIURETICS IV Last administered on 01/27/19 08:30; Admin Dose 20 MG; Start 01/21/19 at 18:30 Hydromorphone HCl (Dilaudid) 0.5 mg Q4H PRN IV SEVERE PAIN LEVEL 7-10 Last administered on 01/28/19 05:03; Admin Dose 0.5 MG; Start 01/22/19 at 13:00 Vancomycin HCl 1.25 gm/Sodium Chloride 250 ml @ 83.333 mls/ hr Q12H IVPB Last administered on 01/28/19 00:43; Admin Dose 83.333 MLS/HR; Start 01/25/19 at 01 :00 Insulin Aspart (Novolog Insulin Pen) NOVOLOG *MODERATE* ALGORITHM WITH MEALS BEDTIME SC Last administered on 01/27/19 21:03; Admin Dose 1 UNIT; Start 01/26/19 at 21:00 TJ QUINTERO M.D. January 28, 2019 09:06
[2019-01-28] MEDS: CEFEPIME 2GM/50 ML (PMX) 50 ML IVPB SCH ×2 (09:09→22:20)
[2019-01-28] MEDS: CYANOCOBALAMIN 1000 MCG INJ IM SCH (09:12)
[2019-01-28] MEDS: NEOMYC/POLYMYX/BACIT 30 GM OINT TOP SCH (09:15)
[2019-01-28] MEDS: oxyCODONE (CR) 10 MG TAB [oxyCONTIN] PO SCH ×2 (10:42→21:25)
[2019-01-28] MEDS: DIGOXIN 0.125 MG TAB PO SCH (12:24)
--- NOTE | 2019-01-28 13:04 | CONS ---
Assessment/Plan Assessment/Plan Hospital Course (Demo Recall) IMP: 1.Pre-op for peripheral bypass surgery. Lexiscan with no ischemia/+scar EF 28%. Echo EF 25%. 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 Recc: -ON tele -Continue digoxin -Continue coreg and zestril as tolerated only for treatment of cardiomyopathy -Continue amiodarone -Continue abx's and f/u cx data -Follow volume status closely and continue lasix diuresis -local wound care -pnding LE bypass when patient stable -transfuse PRBC's as neccessary -? ability to resume Consultation Date/Type/Reason Admit Date/Time January 09, 2019 at 18:17 Initial Consult Date 01/10/19 Type of Consult Cardiology Reason for Consultation preop/cardiomyopathy Requesting Provider: KRISTIN PRYOR MD Date/Time of Note DATE: 01/28/19 TIME: 13:00 Exam/Review of Systems Vital Signs Vitals Vital Signs Date Temp Pulse Resp B/P (MAP) Pulse Ox O2 O2 Flow FiO2 Time Delivery Rate 01/28/19 75 12:49 01/28/19 98.7 16 96/50 (65) 98 Room Air 11:09 Intake and Output 01/27/19 01/27/19 01/28/19 1515:00 23:00 07:00 IntakeIntake Total 50 ml 1150 ml 500 ml OutputOutput Total 3000 ml 700 ml BalanceBalance 50 ml -1850 ml -200 ml Exam Exam Review of Systems: CONSTITUTIONAL: No fevers, chills. PULMONARY: No sob CARDIOVASCULAR: No chest pain/palpitations GASTROINTESTINAL: No nausea/vomiting. GENITOURINARY: No hematuria/dysuria. MUSCULOSKELETAL: No myagias/arthalgias. PSYCHIATRIC: The patient denies depression. NEUROLOGIC: No weakness Constitutional: alert, oriented Psych: no complaints Head: normocephalic Neck: supple, jvd (9 cm water) Respiratory: diminished breath sounds (at bases/B) Cardiovascular: regular rate and rhythm Gastrointestinal: soft, non-tender Musculoskeletal: muscle tone (normal) Extremities: pitting pedal edema (bilateral) 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: other (No focal deficits) Labs Result Diagram: 01/27/19 0609 01/27/19 0609 Results 24hrs Laboratory Tests Test 01/27/19 17:28 01/27/19 20:38 01/28/19 02:31 01/28/19 07:43 Bedside Glucose 169 189 143 111 Test 01/28/19 12:00 Bedside Glucose 167 Medications Medications Current Medications Amiodarone HCl (Cordarone) 200 mg DAILY PO Last administered on 01/28/19 09:06; Admin Dose 200 MG; Start 01/10/19 at 09:00 Digoxin (Digoxin) 0.125 mg DAILY@1300 PO Last administered on 01/28/19 12:24; Admin Dose 0.125 MG; Start 01/10/19 at 13:00 Gabapentin (Neurontin) 600 mg DAILY PO Last administered on 01/28/19 09:06; Admin Dose 600 MG; Start 01/10/19 at 09:00 Empaglifozin (Jardiance) 25 mg DAILY PO Last administered on 01/28/19 07:45; Admin Dose 25 MG; Start 01/10/19 at 09:00 Linagliptin (Tradjenta) 5 mg DAILY PO Last administered on 01/28/19 07:45; Admin Dose 5 MG; Start 01/10/19 at 09:00 Diagnostic Test (Pha) (Accu-Chek) 1 ea AC MEALS AND BEDTIME XX Last administered on 01/28/19 12:00; Admin Dose 1 EA; Start 01/09/19 at 21:00 Acetaminophen (Tylenol Tab) 650 mg Q4H PRN PO MILD PAIN(1-3)OR ELEVATED TEMP; Start 01/09/19 at 20:30 Ondansetron HCl (Zofran Inj) 4 mg Q6H PRN IV NAUSEA AND/OR VOMITING Last administered on 01/14/19 19:59; Admin Dose 4 MG; Start 01/09/19 at 20:30 Diagnostic Test (Pha) (Accu-Chek) 1 ea 02 XX Last administered on 01/28/19 02:34; Admin Dose 1 EA; Start 01/10/19 at 02:00 Miscellaneous Information 1 ea NOTE XX ; Start 01/09/19 at 21:30 Glucose (Glutose) 15 gm Q15M PRN PO DECREASED GLUCOSE; Start 01/09/19 at 21:30 Glucose (Glutose) 22.5 gm Q15M PRN PO DECREASED GLUCOSE; Start 01/09/19 at 21:30 Dextrose (D50w Syringe) 25 ml Q15M PRN IV DECREASED GLUCOSE; Start 01/09/19 at 21:30 Dextrose (D50w Syringe) 50 ml Q15M PRN IV DECREASED GLUCOSE; Start 01/09/19 at 21:30 Glucagon (Glucagen) 1 mg Q15M PRN IM DECREASED GLUCOSE; Start 01/09/19 at 21:30 Glucose (Glutose) 15 gm Q15M PRN BUCCAL DECREASED GLUCOSE; Start 01/09/19 at 21:30 Insulin Glargine (Lantus) 18 units QHS SC Last administered on 01/27/19 20:43; Admin Dose 18 UNITS; Start 01/09/19 at 22:30 Carvedilol (Coreg) 3.125 mg BID PO Last administered on 01/27/19 08:29; Admin Dose 3.125 MG; Start 01/10/19 at 21:00 Vancomycin HCl (Vanco Iv Per Pharmacy) VANCOMYCIN PER PHARMACY PER PROTOCOL XX ; Start 01/11/19 at 02:30 Lisinopril (Zestril) 2.5 mg DAILY PO Last administered on 01/27/19 08:28; Admin Dose 2.5 MG; Start 01/13/19 at 09:00 Senna (Senokot) 1 tab DAILY PRN PO CONSTIPATION Last administered on 01/25/19 21:12; Admin Dose 1 TAB; Start 01/12/19 at 18:30 Docusate Sodium (Colace) 100 mg BID PRN PO CONSTIPATION Last administered on 01/26/19 20:43; Admin Dose 100 MG; Start 01/12/19 at 18:30 Neomycin/ Polymyxin/ Bacitracin (Neosporin Topical Oint) 1 applic DAILY TOP Last administered on 01/28/19 09:15; Admin Dose 1 APPLIC; Start 01/12/19 at 18:30 Cyanocobalamin (Vitamin B12 Inj) 1,000 mcg DAILY IM Last administered on 01/28/19 09:12; Admin Dose 1,000 MCG; Start 01/16/19 at 09:00 Pantoprazole (Protonix Tab) 40 mg DAILY@06 PO Last administered on 01/28/19 05:02; Admin Dose 40 MG; Start 01/17/19 at 06:00 Metronidazole 100 ml @ 100 mls/hr Q8 IVPB Last administered on 01/28/19 05:03; Admin Dose 100 MLS/HR; Start 01/16/19 at 22:00 Cefepime HCl 50 ml @ 100 mls/hr Q12 IVPB Last administered on 01/28/19 09:09; Admin Dose 100 MLS/HR; Start 01/17/19 at 21:00 Oxycodone HCl (Oxycontin) 10 mg BID PO Last administered on 01/28/19 10:42; Admin Dose 10 MG; Start 01/18/19 at 15:00 Furosemide (Lasix) 20 mg BID DIURETICS IV Last administered on 01/27/19 08:30; Admin Dose 20 MG; Start 01/21/19 at 18:30 Hydromorphone HCl (Dilaudid) 0.5 mg Q4H PRN IV SEVERE PAIN LEVEL 7-10 Last administered on 01/28/19 09:07; Admin Dose 0.5 MG; Start 01/22/19 at 13:00 Vancomycin HCl 1.25 gm/Sodium Chloride 250 ml @ 83.333 mls/ hr Q12H IVPB Last administered on 01/28/19 12:23; Admin Dose 83.333 MLS/HR; Start 01/25/19 at 01:00 Insulin Aspart (Novolog Insulin Pen) NOVOLOG *MODERATE* ALGORITHM WITH MEALS BEDTIME SC Last administered on 01/28/19 12:01; Admin Dose 2 UNIT; Start 01/26/19 at 21:00 VERO ARELLANO January 28, 2019 13:04
--- NOTE | 2019-01-28 15:36 | CONS ---
Assessment/Plan Assessment/Plan Hospital Course (Demo Recall) - polymicrobial infection of non-healing ulcer of R heel. CT on 01/10/2019 did not show evidence of OM. ESR 26 on 01/09/2019 and 37 on 01/12/2019; superficial wound cx Pseudomonas, E. Coli, Enterococcus (isolated from broth only), scant Proteus, and scant CoNS - s/p Debridement of the right calcaneal ulceration 01/13/2019; intraop cx grew E. Coli, Proteus, and Enterococcus - chronic wound of R heel, in the past the wound culture grew E. coli - h/o OM of R foot, h/o 6 weeks of IV vancomycin and ceftriaxone in 2018. 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 - Continue Cefepime (restart 01/17/2019-) for Pseudomonas, E. Coli and Proteus. PHOEBE Wyman spoke with [facility] who confirmed sensis of Cefepime to E. Coli and Proteus. E.coli is resistant to Amp-sulbactam - Continue IV vancomycin (01/11/2019-) - Continue Flagyl IV (01/16/19 -) - Hypotension s/p Dilaudid + Lasix - Fall precautions, and recheck BP - f/u path Consultation Date/Type/Reason Admit Date/Time January 09, 2019 at 18:17 Initial Consult Date 01/10/19 Requesting Provider: KRISTIN PRYOR MD Date/Time of Note DATE: 01/28/19 TIME: 15:35 Exam/Review of Systems Exam Vitals Vital Signs Date Temp Pulse Resp B/P (MAP) Pulse Ox O2 O2 Flow FiO2 Time Delivery Rate 01/28/19 75 12:49 01/28/19 98.7 16 96/50 (65) 98 Room Air 11:09 Intake and Output 01/27/19 01/27/19 01/28/19 1515:00 23:00 07:00 IntakeIntake Total 50 ml 1150 ml 500 ml OutputOutput Total 3000 ml 700 ml BalanceBalance 50 ml -1850 ml -200 ml Constitutional: alert, oriented, well developed Psych: no complaints, nl mood/affect Head: normocephalic, atraumatic Eyes: nl conjunctiva, EOMI, nl lids, nl sclera, PERRL Respiratory: clear to auscultation, normal air movement Cardiovascular: regular rate and rhythm, nl pulses Musculoskeletal: nl extremities to inspection, nl gait and stance 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: ROUTING EQUIPMENT TENDER II-XII intact, nl mental status, nl speech, nl strength Results Result Diagram: 01/27/1909 01/27/19 0609 Results 24hrs Laboratory Tests Test 01/27/19 17:28 01/27/19 20:38 01/28/19 02:31 01/28/19 07:43 Bedside Glucose 169 189 143 111 Test 01/28/19 12:00 Bedside Glucose 167 Medications Medication Current Medications Amiodarone HCl (Cordarone) 200 mg DAILY PO Last administered on 01/28/19 09:06; Admin Dose 200 MG; Start 01/10/19 at 09:00 Digoxin (Digoxin) 0.125 mg DAILY@1300 PO Last administered on 01/28/19 12:24; Admin Dose 0.125 MG; Start 01/10/19 at 13:00 Gabapentin (Neurontin) 600 mg DAILY PO Last administered on 01/28/19 09:06; Admin Dose 600 MG; Start 01/10/19 at 09:00 Empaglifozin (Jardiance) 25 mg DAILY PO Last administered on 01/28/19 07:45; Admin Dose 25 MG; Start 01/10/19 at 09:00 Linagliptin (Tradjenta) 5 mg DAILY PO Last administered on 01/28/19 07:45; Admin Dose 5 MG; Start 01/10/19 at 09:00 Diagnostic Test (Pha) (Accu-Chek) 1 ea AC MEALS AND BEDTIME XX Last administered on 01/28/19at 12:00; Admin Dose 1 EA; Start 01/09/19 at 21:00 Acetaminophen (Tylenol Tab) 650 mg Q4H PRN PO MILD PAIN(1-3)OR ELEVATED TEMP; Start 01/09/19 at 20:30 Ondansetron HCl (Zofran Inj) 4 mg Q6H PRN IV NAUSEA AND/OR VOMITING Last administered on 01/14/19 19:59; Admin Dose 4 MG; Start 01/09/19 at 20:30 Diagnostic Test (Pha) (Accu-Chek) 1 ea 02 XX Last administered on 01/28/19at 02:34; Admin Dose 1 EA; Start 01/10/19 at 02:00 Miscellaneous Information 1 ea NOTE XX ; Start 01/09/19 at 21:30 Glucose (Glutose) 15 gm Q15M PRN PO DECREASED GLUCOSE; Start 01/09/19 at 21:30 Glucose (Glutose) 22.5 gm Q15M PRN PO DECREASED GLUCOSE; Start 01/09/19 at 21:30 Dextrose (D50w Syringe) 25 ml Q15M PRN IV DECREASED GLUCOSE; Start 01/09/19 at 21:30 Dextrose (D50w Syringe) 50 ml Q15M PRN IV DECREASED GLUCOSE; Start 01/09/19 at 21:30 Glucagon (Glucagen) 1 mg Q15M PRN IM DECREASED GLUCOSE; Start 01/09/19 at 21:30 Glucose (Glutose) 15 gm Q15M PRN BUCCAL DECREASED GLUCOSE; Start 01/09/19 at 21:30 Insulin Glargine (Lantus) 18 units QHS SC Last administered on 01/27/19at 20:43; Admin Dose 18 UNITS; Start 01/09/19 at 22:30 Carvedilol (Coreg) 3.125 mg BID PO Last administered on 01/27/19at 08:29; Admin Dose 3.125 MG; Start 01/10/19 at 21:00 Vancomycin HCl (Vanco Iv Per Pharmacy) VANCOMYCIN PER PHARMACY PER PROTOCOL XX ; Start 01/11/19 at 02:30 Lisinopril (Zestril) 2.5 mg DAILY PO Last administered on 01/27/19at 08:28; Admin Dose 2.5 MG; Start 01/13/19 at 09:00 Senna (Senokot) 1 tab DAILY PRN PO CONSTIPATION Last administered on 01/25/19at 21:12; Admin Dose 1 TAB; Start 01/12/19 at 18:30 Docusate Sodium (Colace) 100 mg BID PRN PO CONSTIPATION Last administered on 01/26/19 20:43; Admin Dose 100 MG; Start 01/12/19 at 18:30 Neomycin/ Polymyxin/ Bacitracin (Neosporin Topical Oint) 1 applic DAILY TOP Last administered on 01/28/19 09:15; Admin Dose 1 APPLIC; Start 01/12/19 at 18:30 Cyanocobalamin (Vitamin B12 Inj) 1,000 mcg DAILY IM Last administered on 01/28/19 09:12; Admin Dose 1,000 MCG; Start 01/16/19 at 09:00 Pantoprazole (Protonix Tab) 40 mg DAILY@06 PO Last administered on 01/28/19 05:02; Admin Dose 40 MG; Start 01/17/19 at 06:00 Metronidazole 100 ml @ 100 mls/hr Q8 IVPB Last administered on 01/28/19 14:27; Admin Dose 100 MLS/HR; Start 01/16/19 at 22:00 Cefepime HCl 50 ml @ 100 mls/hr Q12 IVPB Last administered on 01/28/19 09:09; Admin Dose 100 MLS/HR; Start 01/17/19 at 21:00 Oxycodone HCl (Oxycontin) 10 mg BID PO Last administered on 01/28/19 10:42; Admin Dose 10 MG; Start 01/18/19 at 15:00 Furosemide (Lasix) 20 mg BID DIURETICS IV Last administered on 01/27/19 08:30; Admin Dose 20 MG; Start 01/21/19 at 18:30 Hydromorphone HCl (Dilaudid) 0.5 mg Q4H PRN IV SEVERE PAIN LEVEL 7-10 Last administered on 01/28/19 13:47; Admin Dose 0.5 MG; Start 01/22/19 at 13:00 Vancomycin HCl 1.25 gm/Sodium Chloride 250 ml @ 83.333 mls/ hr Q12H IVPB Last administered on 01/28/19 12:23; Admin Dose 83.333 MLS/HR; Start 01/25/19 at 01:00 Insulin Aspart (Novolog Insulin Pen) NOVOLOG *MODERATE* ALGORITHM WITH MEALS BEDTIME SC Last administered on 5/22/19at 12:01; Admin Dose 2 UNIT; Start 01/26/19 at 21:00 DENITA WOMACK MD January 28, 2019 15:36
--- NOTE | 2019-01-28 16:32 | PN ---
Date/Time of Note Date/Time of Note DATE: 01/28/19 TIME: 16:24 Assessment/Plan VTE Prophylaxis Risk score (from Ns)>0 risk: 3 SCD applied (from Ns): No SCD contraindicated: other Pharmacological prophylaxis: NA/contraindicated Pharm contraindication: anticoag not tolerated Lines/Catheters IV [facility] Central Line Central line still needed: Yes Urinary Cath still in place: No Assessment/Plan Hospital Course Patient remains hemodynamically stable, plan for PICC line placement for long- term antibiotics, discussed with Dr. Urbano patient will need vancomycin cefepime and Flagyl through February 22. Pending custodial facility placement. 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 EUS and FNA ans an out patient. Continue PPI. -New onset of anemia and hypotension requiring blood transfusion on 01/15/2019, stool for OB is negative. -Right heel necrotic wound. Dr. Mata is following in podiatry consultation. St atus post debridement. Continue antibiotics per ID. Dr. Urbano is following in infection disease consultation. Will require total of 6 weeks of Vancomycin IV, Cefepime IV, and Flagyl IV through 02/22/19. -Chronic peripheral vascular disease, history of angioplasty x2. Dr. Sheppard is following in vascular surgery consultation. Plan for a right pop DP bypass as an outpatient. -Coronary artery disease, status post coronary artery bypass graft. -Cardiomyopathy with ejection fraction of 25%. Continue Coreg. Dr. Foster is following in cardiology consultation. -Status post AICD. -Hx of Hypertension. -Diabetes hemoglobin A1c 7.6. Continue Lantus and NovoLog. -Right knee contusion and abrasion status post fall. Status post evaluation by Dr. Zelaya and orthopedic surgery. No signs of fracture or dystrophic dislocation. -Chronic low back pain with significant spondylolisthesis grade II at the level of L5 to S1. Further recommendations based on clinical course. Plan of care discussed with Dr. Mann. Result Diagram: 01/27/19 0609 01/27/19 0609 Results 24hrs Laboratory Tests Test 01/27/19 17:28 01/27/19 20:38 01/28/19 02:31 01/28/19 07:43 Bedside Glucose 169 189 143 111 Test 01/28/19 12:00 Bedside Glucose 167 Exam/Review of Systems Exam Vitals Vital Signs Date Temp Pulse Resp B/P (MAP) Pulse Ox O2 O2 Flow FiO2 Time Delivery Rate 01/28/19 98.7 68 18 93/51 (65) 98 Room Air 15:35 Intake and Output 01/27/19 01/27/19 01/28/19 1515:00 23:00 07:00 IntakeIntake Total 50 ml 1150 ml 500 ml OutputOutput Total 3000 ml 700 ml BalanceBalance 50 ml -1850 ml -200 ml Exam Constitutional: alert, oriented Respiratory: clear to auscultation Cardiovascular: regular rhythm and rate, AICD Gastrointestinal: soft, non-tender Extremities: normal pulses, other (Right heel wound) Right chest triple lumen catheter Results Results 24hrs Laboratory Tests Test 01/27/19 17:28 01/27/19 20:38 01/28/19 02:31 01/28/19 07:43 Bedside Glucose 169 189 143 111 Test 01/28/19 12:00 Bedside Glucose 167 Medications Medication Current Medications Amiodarone HCl (Cordarone) 200 mg DAILY PO Last administered on 01/28/19 09:06; Admin Dose 200 MG; Start 01/10/19 at 09:00 Digoxin (Digoxin) 0.125 mg DAILY@1300 PO Last administered on 01/28/19 12:24; Admin Dose 0.125 MG; Start 01/10/19 at 13:00 Gabapentin (Neurontin) 600 mg DAILY PO Last administered on 01/28/19 09:06; Admin Dose 600 MG; Start 01/10/19 at 09:00 Empaglifozin (Jardiance) 25 mg DAILY PO Last administered on 01/28/19 07:45; Admin Dose 25 MG; Start 01/10/19 at 09:00 Linagliptin (Tradjenta) 5 mg DAILY PO Last administered on 01/28/19 07:45; Admin Dose 5 MG; Start 01/10/19 at 09:00 Diagnostic Test (Pha) (Accu-Chek) 1 ea AC MEALS AND BEDTIME XX Last administered on 01/28/19 12:00; Admin Dose 1 EA; Start 01/09/19 at 21:00 Acetaminophen (Tylenol Tab) 650 mg Q4H PRN PO MILD PAIN(1-3)OR ELEVATED TEMP; Start 01/09/19 at 20:30 Ondansetron HCl (Zofran Inj) 4 mg Q6H PRN IV NAUSEA AND/OR VOMITING Last administered on 01/14/19at 19:59; Admin Dose 4 MG; Start 01/09/19 at 20:30 Diagnostic Test (Pha) (Accu-Chek) 1 ea 02 XX Last administered on 01/28/19at 02:34; Admin Dose 1 EA; Start 01/10/19 at 02:00 Miscellaneous Information 1 ea NOTE XX ; Start 01/09/19 at 21:30 Glucose (Glutose) 15 gm Q15M PRN PO DECREASED GLUCOSE; Start 01/09/19 at 21:30 Glucose (Glutose) 22.5 gm Q15M PRN PO DECREASED GLUCOSE; Start 01/09/19 at 21:30 Dextrose (D50w Syringe) 25 ml Q15M PRN IV DECREASED GLUCOSE; Start 01/09/19 at 21:30 Dextrose (D50w Syringe) 50 ml Q15M PRN IV DECREASED GLUCOSE; Start 01/09/19 at 21:30 Glucagon (Glucagen) 1 mg Q15M PRN IM DECREASED GLUCOSE; Start 01/09/19 at 21:30 Glucose (Glutose) 15 gm Q15M PRN BUCCAL DECREASED GLUCOSE; Start 01/09/19 at 21:30 Insulin Glargine (Lantus) 18 units QHS SC Last administered on 01/27/19at 20:43; Admin Dose 18 UNITS; Start 01/09/19 at 22:30 Carvedilol (Coreg) 3.125 mg BID PO Last administered on 01/27/19at 08:29; Admin Dose 3.125 MG; Start 01/10/19 at 21:00 Vancomycin HCl (Vanco Iv Per Pharmacy) VANCOMYCIN PER PHARMACY PER PROTOCOL XX ; Start 01/11/19 at 02:30 Lisinopril (Zestril) 2.5 mg DAILY PO Last administered on 01/27/19at 08:28; Admin Dose 2.5 MG; Start 01/13/19 at 09:00 Senna (Senokot) 1 tab DAILY PRN PO CONSTIPATION Last administered on 01/25/19at 21:12; Admin Dose 1 TAB; Start 01/12/19 at 18:30 Docusate Sodium (Colace) 100 mg BID PRN PO CONSTIPATION Last administered on 20:43; Admin Dose 100 MG; Start 01/12/19 at 18:30 Neomycin/ Polymyxin/ Bacitracin (Neosporin Topical Oint) 1 applic DAILY TOP Last administered on 01/28/19 09:15; Admin Dose 1 APPLIC; Start 01/12/19 at 18:30 Cyanocobalamin (Vitamin B12 Inj) 1,000 mcg DAILY IM Last administered on 01/28/19 09:12; Admin Dose 1,000 MCG; Start 01/16/19 at 09:00 Pantoprazole (Protonix Tab) 40 mg DAILY@06 PO Last administered on 01/28/19 05:02; Admin Dose 40 MG; Start 01/17/19 at 06:00 Metronidazole 100 ml @ 100 mls/hr Q8 IVPB Last administered on 01/28/19 14:27; Admin Dose 100 MLS/HR; Start 01/16/19 at 22:00 Cefepime HCl 50 ml @ 100 mls/hr Q12 IVPB Last administered on 01/28/19 09:09; Admin Dose 100 MLS/HR; Start 01/17/19 at 21:00 Oxycodone HCl (Oxycontin) 10 mg BID PO Last administered on 01/28/19 10:42; Admin Dose 10 MG; Start 01/18/19 at 15:00 Furosemide (Lasix) 20 mg BID DIURETICS IV Last administered on 01/27/19 08:30; Admin Dose 20 MG; Start 01/21/19 at 18:30 Hydromorphone HCl (Dilaudid) 0.5 mg Q4H PRN IV SEVERE PAIN LEVEL 7-10 Last administered on 01/28/19 13:47; Admin Dose 0.5 MG; Start 01/22/19 at 13:00 Vancomycin HCl 1.25 gm/Sodium Chloride 250 ml @ 83.333 mls/ hr Q12H IVPB Last administered on 01/28/19 12:23; Admin Dose 83.333 MLS/HR; Start 01/25/19 at 01:00 Insulin Aspart (Novolog Insulin Pen) NOVOLOG *MODERATE* ALGORITHM WITH MEALS BEDTIME SC Last administered on 01/28/19 12:01; Admin Dose 2 UNIT; Start 01/26/19 at 21:00 RAMESH SOLORZANO January 28, 2019 16:32
--- NOTE | 2019-01-28 17:51 | CONS ---
Assessment/Plan Assessment/Plan Assessment/Plan (Daily) Consultation Assessment/Plan Assessment/Plan Hospital Course (Demo Recall) 63 yo male with anemia 1. Right heel necrotic wound. -s/p debridement of rt foot, silvadene cream 2. Cardiomyopathy with ejection fraction of 20% to 30%. 3. Peripheral vascular disease status post PCI, right lower extremity. 4. Coronary artery disease status post coronary artery bypass graft. 5. Status post automatic implantable cardioverter-defibrillator. 6. Hypertension. 7. Diabetes mellitus. 8. Anemia. Patient has a significant drop in hematocrit. So far, clinically, there is no evidence of obvious GI bleeding. 9. Ovoid mass or filling defect arising from lesser curvature of stomach. -GIST tumor 10. Pt is pre op for peripheral artery bypass surgery which is on hold for now. Plan EUS with FNA as outpatient to confirm GIST tumor diagnosis. Will likely need surgical removal of tumor in future. Spoke with patient today regarding GIST tumor Patient is awaiting for bypass surgery for his lower extremity. Plan of care discussed the patient he understood and has agreed. My office will try to get urgent authorization for EUS and FNA Consultation Date/Type/Reason Admit Date/Time January 09, 2019 at 18:17 Initial Consult Date 01/16/19 Requesting Provider: KRISTIN PRYOR MD Date/Time of Note DATE: 01/28/19 TIME: 17:51 24 HR Interval Summary Constitutional: no complaints Exam/Review of Systems Exam Vitals Vital Signs Date Temp Pulse Resp B/P (MAP) Pulse Ox O2 O2 Flow FiO2 Time Delivery Rate 01/28/19 65 16:35 01/28/19 98.7 18 93/51 (65) 98 Room Air 15:35 Intake and Output 01/27/19 01/27/19 01/28/19 1515:00 23:00 07:00 IntakeIntake Total 50 ml 1150 ml 500 ml OutputOutput Total 3000 ml 700 ml BalanceBalance 50 ml -1850 ml -200 ml Constitutional: alert, oriented, well developed Psych: no complaints, nl mood/affect Head: normocephalic, atraumatic Eyes: nl conjunctiva, EOMI, nl lids, nl sclera, PERRL ENMT: nl external ears & nose, nl lips & teeth, nl nasal mucosa & septum Neck: supple, non-tender Respiratory: clear to auscultation, normal air movement Cardiovascular: regular rate and rhythm, nl pulses Gastrointestinal: soft, nl liver, spleen, non-tender Musculoskeletal: nl extremities to inspection, nl gait and stance Extremities: normal pulses 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: CHASSIS DRIVER II-XII intact, nl mental status, nl speech, nl strength Skin: nl turgor; No rash or lesions Lymph: nl lymph nodes Results Result Diagram: 01/27/19 0609 01/27/19 0609 Results 24hrs Laboratory Tests Test 01/27/19 20:38 01/28/19 02:31 01/28/19 07:43 01/28/19 12:00 Bedside Glucose 189 143 111 167 Test 01/28/19 17:29 Bedside Glucose 222 H Medications Medication Current Medications Amiodarone HCl (Cordarone) 200 mg DAILY PO Last administered on 01/28/19 09:06; Admin Dose 200 MG; Start 01/10/19 at 09:00 Digoxin (Digoxin) 0.125 mg DAILY@1300 PO Last administered on 01/28/19 12:24; Admin Dose 0.125 MG; Start 01/10/19 at 13:00 Gabapentin (Neurontin) 600 mg DAILY PO Last administered on 01/28/19 09:06; Admin Dose 600 MG; Start 01/10/19 at 09:00 Empaglifozin (Jardiance) 25 mg DAILY PO Last administered on 01/28/19 07:45; Admin Dose 25 MG; Start 01/10/19 at 09:00 Linagliptin (Tradjenta) 5 mg DAILY PO Last administered on 01/28/19 07:45; Admin Dose 5 MG; Start 01/10/19 at 09:00 Diagnostic Test (Pha) (Accu-Chek) 1 ea AC MEALS AND BEDTIME XX Last administered on 01/28/19 17:30; Admin Dose 1 EA; Start 01/09/19 at 21:00 Acetaminophen (Tylenol Tab) 650 mg Q4H PRN PO MILD PAIN(1-3)OR ELEVATED TEMP; Start 01/09/19 at 20:30 Ondansetron HCl (Zofran Inj) 4 mg Q6H PRN IV NAUSEA AND/OR VOMITING Last administered on 01/14/19 19:59; Admin Dose 4 MG; Start 01/09/19 at 20:30 Diagnostic Test (Pha) (Accu-Chek) 1 ea 02 XX Last administered on 01/28/19at 02:34; Admin Dose 1 EA; Start 01/10/19 at 02:00 Miscellaneous Information 1 ea NOTE XX ; Start 01/09/19 at 21:30 Glucose (Glutose) 15 gm Q15M PRN PO DECREASED GLUCOSE; Start 01/09/19 at 21:30 Glucose (Glutose) 22.5 gm Q15M PRN PO DECREASED GLUCOSE; Start 01/09/19 at 21:30 Dextrose (D50w Syringe) 25 ml Q15M PRN IV DECREASED GLUCOSE; Start 01/09/19 at 21:30 Dextrose (D50w Syringe) 50 ml Q15M PRN IV DECREASED GLUCOSE; Start 01/09/19 at 21:30 Glucagon (Glucagen) 1 mg Q15M PRN IM DECREASED GLUCOSE; Start 01/09/19 at 21:30 Glucose (Glutose) 15 gm Q15M PRN BUCCAL DECREASED GLUCOSE; Start 01/09/19 at 21:30 Insulin Glargine (Lantus) 18 units QHS SC Last administered on 01/27/19at 20:43; Admin Dose 18 UNITS; Start 01/09/19 at 22:30 Carvedilol (Coreg) 3.125 mg BID PO Last administered on 01/27/19 08:29; Admin Dose 3.125 MG; Start 01/10/19 at 21:00 Vancomycin HCl (Vanco Iv Per Pharmacy) VANCOMYCIN PER PHARMACY PER PROTOCOL XX ; Start 01/11/19 at 02:30 Lisinopril (Zestril) 2.5 mg DAILY PO Last administered on 01/27/19at 08:28; Admin Dose 2.5 MG; Start 01/13/19 at 09:00 Senna (Senokot) 1 tab DAILY PRN PO CONSTIPATION Last administered on 01/25/19 21:12; Admin Dose 1 TAB; Start 01/12/19 at 18:30 Docusate Sodium (Colace) 100 mg BID PRN PO CONSTIPATION Last administered on 01/26/19 20:43; Admin Dose 100 MG; Start 01/12/19 at 18:30 Neomycin/ Polymyxin/ Bacitracin (Neosporin Topical Oint) 1 applic DAILY TOP Last administered on 01/28/19at 09:15; Admin Dose 1 APPLIC; Start 01/12/19 at 18:30 Cyanocobalamin (Vitamin B12 Inj) 1,000 mcg DAILY IM Last administered on 01/28/19 09:12; Admin Dose 1,000 MCG; Start 01/16/19 at 09:00 Pantoprazole (Protonix Tab) 40 mg DAILY@06 PO Last administered on 01/28/19 05:02; Admin Dose 40 MG; Start 01/17/19 at 06:00 Metronidazole 100 ml @ 100 mls/hr Q8 IVPB Last administered on 01/28/19 14:27; Admin Dose 100 MLS/HR; Start 01/16/19 at 22:00 Cefepime HCl 50 ml @ 100 mls/hr Q12 IVPB Last administered on 01/28/19 09:09; Admin Dose 100 MLS/HR; Start 01/17/19 at 21:00 Oxycodone HCl (Oxycontin) 10 mg BID PO Last administered on 01/28/19 10:42; Admin Dose 10 MG; Start 01/18/19 at 15:00 Furosemide (Lasix) 20 mg BID DIURETICS IV Last administered on 01/27/19 08:30; Admin Dose 20 MG; Start 01/21/19 at 18:30 Hydromorphone HCl (Dilaudid) 0.5 mg Q4H PRN IV SEVERE PAIN LEVEL 7-10 Last admi nistered on 01/28/19 13:47; Admin Dose 0.5 MG; Start 01/22/19 at 13:00 Vancomycin HCl 1.25 gm/Sodium Chloride 250 ml @ 83.333 mls/ hr Q12H IVPB Last administered on 01/28/19 12:23; Admin Dose 83.333 MLS/HR; Start 01/25/19 at 01:00 Insulin Aspart (Novolog Insulin Pen) NOVOLOG *MODERATE* ALGORITHM WITH MEALS BEDTIME SC Last administered on 01/28/19 17:34; Admin Dose 6 UNIT; Start 01/26/19 at 21:00 KACI TORRES MD January 28, 2019 17:51
[2019-01-28] MEDS: INSULIN GLARGINE [LANTus] (100 UNITS/ML) SYG SC SCH (21:33)
[2019-01-28] MEDS: SENNA TAB PO PRN (21:36)
[2019-01-28] MEDS: DOCUSATE SODIUM 100 MG CAP PO PRN (21:36)
[2019-01-29] VITALS (11 sets, daily range): BP systolic 89–111; BP diastolic 54–72; PULSE 72–85; RESP 18–20
[2019-01-29] MEDS: ACCU-CHEK XX SCH ×5 (01:56→20:37)
[2019-01-29] MEDS: VANCOMYCIN HCL 1.25 GM in SOD CHLORIDE 0.9% 250 ML IVPB SCH ×2 (02:02→13:07)
[2019-01-29] MEDS: HYDROmorphONE 0.5 MG/0.5 ML SYG IV PRN ×5 (03:48→22:54)
[2019-01-29] MEDS: PANTOPRAZOLE (EC) 40 MG TAB PO SCH (06:07)
[2019-01-29] MEDS: metroNIDAZOLE 500 MG/NS (PMX) 100 ML IVPB SCH ×3 (06:07→21:43)
[2019-01-29] MEDS: FUROSEMIDE 20 MG INJ IV SCH ×2 (06:13→17:51)
[2019-01-29] MEDS: EMPAGLIFLOZIN 10 MG TABLET PO SCH (07:36)
[2019-01-29] MEDS: LINAGLIPTIN 5 MG TABLET PO SCH (07:37)
[2019-01-29] MEDS: INSULIN ASPART [NOVOLOG] 3 ML PEN SC SCH ×4 (07:41→20:24)
[2019-01-29] MEDS: GABAPENTIN 300 MG CAP PO SCH (08:26)
[2019-01-29] MEDS: CYANOCOBALAMIN 1000 MCG INJ IM SCH (08:26)
[2019-01-29] MEDS: CEFEPIME 2GM/50 ML (PMX) 50 ML IVPB SCH ×2 (08:31→20:19)
[2019-01-29] MEDS: AMIODARONE 200 MG TAB PO SCH (08:36)
[2019-01-29] MEDS: LISINOPRIL 5 MG TAB PO SCH (08:36)
[2019-01-29] MEDS: NEOMYC/POLYMYX/BACIT 30 GM OINT TOP SCH (08:38)
--- NOTE | 2019-01-29 11:13 | CONS ---
Assessment/Plan Assessment/Plan Assessment/Plan (Daily) Assessment/Plan Hospital Course (Demo Recall) 63 yo male with anemia 1. Right heel necrotic wound. -s/p debridement of rt foot, silvadene cream 2. Cardiomyopathy with ejection fraction of 20% to 30%. 3. Peripheral vascular disease status post PCI, right lower extremity. 4. Coronary artery disease status post coronary artery bypass graft. 5. Status post automatic implantable cardioverter-defibrillator. 6. Hypertension. 7. Diabetes mellitus. 8. Anemia. Patient has a significant drop in hematocrit. So far, clinically, there is no evidence of obvious GI bleeding. 9. Ovoid mass or filling defect arising from lesser curvature of stomach. -GIST tumor 10. Pt is pre op for peripheral artery bypass surgery which is on hold for now. Plan EUS with FNA as outpatient to confirm GIST tumor diagnosis. Will likely need surgical removal of tumor in future. Spoke with patient today regarding GIST tumor Patient will be completing the course of antibiotic for his wound infection in the lower extremity Plan of care discussed the patient he understood and has agreed. My office will try to get urgent authorization for EUS and FNA Consultation Date/Type/Reason Admit Date/Time January 09, 2019 at 18:17 Initial Consult Date 01/16/19 Requesting Provider: KRISTIN PRYOR MD Date/Time of Note DATE: 01/29/19 TIME: 11:12 24 HR Interval Summary Constitutional: no complaints, improved Exam/Review of Systems Exam Vitals Vital Signs Date Temp Pulse Resp B/P (MAP) Pulse Ox O2 O2 Flow FiO2 Time Delivery Rate 01/29/19 76 08:29 01/29/19 97.7 20 106/67 100 Room Air 07:43 (80) Intake and Output 01/28/19 01/28/19 01/29/19 1515:00 23:00 07:00 IntakeIntake Total 1350 ml 750 ml OutputOutput Total 2000 ml 1700 ml BalanceBalance -650 ml -950 ml Constitutional: alert, oriented, well developed Psych: no complaints, nl mood/affect Head: normocephalic, atraumatic Eyes: nl conjunctiva, EOMI, nl lids, nl sclera, PERRL ENMT: nl external ears & nose, nl lips & teeth, nl nasal mucosa & septum Neck: supple, non-tender Respiratory: clear to auscultation, normal air movement Cardiovascular: regular rate and rhythm, nl pulses Gastrointestinal: soft, nl liver, spleen, non-tender Musculoskeletal: nl extremities to inspection, nl gait and stance Extremities: normal pulses 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: ANALOG IC DESIGN ARCHITECT II-XII intact, nl mental status, nl speech, nl strength Skin: nl turgor; No rash or lesions Lymph: nl lymph nodes Results Result Diagram: 01/27/19 0609 01/27/19 0609 Results 24hrs Laboratory Tests Test 01/28/19 12:00 01/28/19 17:29 01/28/19 21:23 01/29/19 01:45 Bedside Glucose 167 222 H 197 176 Test 01/29/19 07:36 Bedside Glucose 123 Medications Medication Current Medications Amiodarone HCl (Cordarone) 200 mg DAILY PO Last administered on 01/28/19 09:06; Admin Dose 200 MG; Start 01/10/19 at 09:00 Digoxin (Digoxin) 0.125 mg DAILY@1300 PO Last administered on 01/28/19 12:24; Admin Dose 0.125 MG; Start 01/10/19 at 13:00 Gabapentin (Neurontin) 600 mg DAILY PO Last administered on 01/29/19 08:26; Admin Dose 600 MG; Start 01/10/19 at 09:00 Empaglifozin (Jardiance) 25 mg DAILY PO Last administered on 01/29/19 07:36; Admin Dose 25 MG; Start 01/10/19 at 09:00 Linagliptin (Tradjenta) 5 mg DAILY PO Last administered on 01/29/19 07:37; Admin Dose 5 MG; Start 01/10/19 at 09:00 Diagnostic Test (Pha) (Accu-Chek) 1 ea AC MEALS AND BEDTIME XX Last administered on 01/29/19 07:41; Admin Dose 1 EA; Start 01/09/19 at 21:00 Acetaminophen (Tylenol Tab) 650 mg Q4H PRN PO MILD PAIN(1-3)OR ELEVATED TEMP; Start 01/09/19 at 20:30 Ondansetron HCl (Zofran Inj) 4 mg Q6H PRN IV NAUSEA AND/OR VOMITING Last ad ministered on 01/14/19 19:59; Admin Dose 4 MG; Start 01/09/19 at 20:30 Diagnostic Test (Pha) (Accu-Chek) 1 ea 02 XX Last administered on 01/29/19at 01:56; Admin Dose 1 EA; Start 01/10/19 at 02:00 Miscellaneous Information 1 ea NOTE XX ; Start 01/09/19 at 21:30 Glucose (Glutose) 15 gm Q15M PRN PO DECREASED GLUCOSE; Start 01/09/19 at 21:30 Glucose (Glutose) 22.5 gm Q15M PRN PO DECREASED GLUCOSE; Start 01/09/19 at 21:30 Dextrose (D50w Syringe) 25 ml Q15M PRN IV DECREASED GLUCOSE; Start 01/09/19 at 21:30 Dextrose (D50w Syringe) 50 ml Q15M PRN IV DECREASED GLUCOSE; Start 01/09/19 at 21:30 Glucagon (Glucagen) 1 mg Q15M PRN IM DECREASED GLUCOSE; Start 01/09/19 at 21:30 Glucose (Glutose) 15 gm Q15M PRN BUCCAL DECREASED GLUCOSE; Start 01/09/19 at 21:30 Insulin Glargine (Lantus) 18 units QHS SC Last administered on 01/28/19 21:33; Admin Dose 18 UNITS; Start 01/09/19 at 22:30 Carvedilol (Coreg) 3.125 mg BID PO Last administered on 01/27/19 08:29; Admin Dose 3.125 MG; Start 01/10/19 at 21:00 Vancomycin HCl (Vanco Iv Per Pharmacy) VANCOMYCIN PER PHARMACY PER PROTOCOL XX ; Start 01/11/19 at 02:30 Lisinopril (Zestril) 2.5 mg DAILY PO Last administered on 01/27/19 08:28; Admin Dose 2.5 MG; Start 01/13/19 at 09:00 Senna (Senokot) 1 tab DAILY PRN PO CONSTIPATION Last administered on 01/28/19 21:36; Admin Dose 1 TAB; Start 01/12/19 at 18:30 Docusate Sodium (Colace) 100 mg BID PRN PO CONSTIPATION Last administered on 01/28/19 21:36; Admin Dose 100 MG; Start 01/12/19 at 18:30 Neomycin/ Polymyxin/ Bacitracin (Neosporin Topical Oint) 1 applic DAILY TOP Last administered on 01/29/19 08:38; Admin Dose 1 APPLIC; Start 01/12/19 at 18:30 Cyanocobalamin (Vitamin B12 Inj) 1,000 mcg DAILY IM Last administered on 01/29/19 08:26; Admin Dose 1,000 MCG; Start 01/16/19 at 09:00 Pantoprazole (Protonix Tab) 40 mg DAILY@06 PO Last administered on 01/29/19 06:07; Admin Dose 40 MG; Start 01/17/19 at 06:00 Metronidazole 100 ml @ 100 mls/hr Q8 IVPB Last administered on 01/29/19 06:07; Admin Dose 100 MLS/HR; Start 01/16/19 at 22:00 Cefepime HCl 50 ml @ 100 mls/hr Q12 IVPB Last administered on 01/29/19 08:31; Admin Dose 100 MLS/HR; Start 01/17/19 at 21:00 Oxycodone HCl (Oxycontin) 10 mg BID PO Last administered on 01/28/19 21:25; Admin Dose 10 MG; Start 01/18/19 at 15:00 Furosemide (Lasix) 20 mg BID DIURETICS IV Last administered on 01/29/19 06:13; Admin Dose 20 MG; Start 01/21/19 at 18:30 Hydromorphone HCl (Dilaudid) 0.5 mg Q4H PRN IV SEVERE PAIN LEVEL 7-10 Last administered on 01/29/19 07:37; Admin Dose 0.5 MG; Start 01/22/19 at 13:00 Vancomycin HCl 1.25 gm/Sodium Chloride 250 ml @ 83.333 mls/ hr Q12H IVPB Last administered on 01/29/19 02:02; Admin Dose 83.333 MLS/HR; Start 01/25/19 at 01:00 Insulin Aspart (Novolog Insulin Pen) NOVOLOG *MODERATE* ALGORITHM WITH MEALS BE DTIME SC Last administered on 01/28/19 21:32; Admin Dose 1 UNIT; Start 01/26/19 at 21:00 KACI TORRES MD January 29, 2019 11:13
--- NOTE | 2019-01-29 12:18 | PN ---
Date/Time of Note Date/Time of Note DATE: 01/29/19 TIME: 12:16 Assessment/Plan VTE Prophylaxis Risk score (from Ns)>0 risk: 7 SCD applied (from Ns): No SCD contraindicated: other Pharmacological prophylaxis: NA/contraindicated Pharm contraindication: bleeding Lines/Catheters IV Catheter Type (from Nrsg): Central Line Central line still needed: Yes Urinary Cath still in place: No Assessment/Plan Hospital Course No acute events overnight, blood sugar is adequately controlled, awaits for PICC line placement for shelter abx, pending residential facility placement. 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 EUS and FNA ans an out patient. Continue PPI. -New onset of anemia and hypotension requiring blood transfusion on 01/15/2019, stool for OB is negative. -Right heel necrotic wound. Dr. Mata is following in podiatry consultation. Status post debridement. Continue antibiotics per ID. Dr. Urbano is following in infection disease consultation. Will require total of 6 weeks of Vancomycin IV, Cefepime IV, and Flagyl IV through 02/22/19. -Chronic peripheral vascular disease, history of angioplasty x2. Dr. Sheppard is following in vascular surgery consultation. Plan for a right pop DP bypass as an outpatient. -Coronary artery disease, status post coronary artery bypass graft. -Cardiomyopathy with ejection fraction of 25%. Continue Coreg. Dr. Foster is following in cardiology consultation. -Status post AICD. -Hx of Hypertension. -Diabetes hemoglobin A1c 7.6. Continue Lantus and NovoLog. -Right knee contusion and abrasion status post fall. Status post evaluation by Dr. Zelaya and orthopedic surgery. No signs of fracture or dystrophic dislocation. -Chronic low back pain with significant spondylolisthesis grade II at the level of L5 to S1. Further recommendations based on clinical course. Plan of care discussed with Dr. Mann. Result Diagram: 01/27/19 0609 01/27/19 0609 Results 24hrs Laboratory Tests Test 01/28/19 17:29 01/28/19 21:23 01/29/19 01:45 01/29/19 07:36 Bedside Glucose 222 H 197 176 123 Test 01/29/19 11:42 Bedside Glucose 159 Exam/Review of Systems Exam Vitals Vital Signs Date Temp Pulse Resp B/P (MAP) Pulse Ox O2 O2 Flow FiO2 Time Delivery Rate 01/29/19 97.3 84 20 97/59 (72) 98 Room Air 11:26 Intake and Output 01/28/19 01/28/19 01/29/19 1515:00 23:00 07:00 IntakeIntake Total 1350 ml 750 ml OutputOutput Total 2000 ml 1700 ml BalanceBalance -650 ml -950 ml Exam Constitutional: alert, oriented Respiratory: clear to auscultation Cardiovascular: regular rhythm and rate, AICD Gastrointestinal: soft, non-tender Extremities: normal pulses, other (Right heel wound) Right chest triple lumen catheter Results Results 24hrs Laboratory Tests Test 01/28/19 17:29 01/28/19 21:23 01/29/19 01:45 01/29/19 07:36 Bedside Glucose 222 H 197 176 123 Test 01/29/19 11:42 Bedside Glucose 159 Medications Medication Current Medications Amiodarone HCl (Cordarone) 200 mg DAILY PO Last administered on 01/28/19 09:06; Admin Dose 200 MG; Start 01/10/19 at 09:00 Digoxin (Digoxin) 0.125 mg DAILY@1300 PO Last administered on 01/28/19 12:24; Admin Dose 0.125 MG; Start 01/10/19 at 13:00 Gabapentin (Neurontin) 600 mg DAILY PO Last administered on 01/29/19 08:26; Admin Dose 600 MG; Start 01/10/19 at 09:00 Empaglifozin (Jardiance) 25 mg DAILY PO Last administered on 01/29/19 07:36; Admin Dose 25 MG; Start 01/10/19 at 09:00 Linagliptin (Tradjenta) 5 mg DAILY PO Last administered on 01/29/19 07:37; Admin Dose 5 MG; Start 01/10/19 at 09:00 Diagnostic Test (Pha) (Accu-Chek) 1 ea AC MEALS AND BEDTIME XX Last administered on 01/29/19 11:43; Admin Dose 1 EA; Start 01/09/19 at 21:00 Acetaminophen (Tylenol Tab) 650 mg Q4H PRN PO MILD PAIN(1-3)OR ELEVATED TEMP; Start 01/09/19 at 20:30 Ondansetron HCl (Zofran Inj) 4 mg Q6H PRN IV NAUSEA AND/OR VOMITING Last administered on 01/14/19 19:59; Admin Dose 4 MG; Start 01/09/19 at 20:30 Diagnostic Test (Pha) (Accu-Chek) 1 ea 02 XX Last administered on 01/29/19at 01:56; Admin Dose 1 EA; Start 01/10/19 at 02:00 Miscellaneous Information 1 ea NOTE XX ; Start 01/09/19 at 21:30 Glucose (Glutose) 15 gm Q15M PRN PO DECREASED GLUCOSE; Start 01/09/19 at 21:30 Glucose (Glutose) 22.5 gm Q15M PRN PO DECREASED GLUCOSE; Start 01/09/19 at 21:30 Dextrose (D50w Syringe) 25 ml Q15M PRN IV DECREASED GLUCOSE; Start 01/09/19 at 21:30 Dextrose (D50w Syringe) 50 ml Q15M PRN IV DECREASED GLUCOSE; Start 01/09/19 at 21:30 Glucagon (Glucagen) 1 mg Q15M PRN IM DECREASED GLUCOSE; Start 01/09/19 at 21:30 Glucose (Glutose) 15 gm Q15M PRN BUCCAL DECREASED GLUCOSE; Start 01/09/19 at 21:30 Insulin Glargine (Lantus) 18 units QHS SC Last administered on 01/28/19at 21:33; Admin Dose 18 UNITS; Start 01/09/19 at 22:30 Carvedilol (Coreg) 3.125 mg BID PO Last administered on 01/27/19at 08:29; Admin Dose 3.125 MG; Start 01/10/19 at 21:00 Vancomycin HCl (Vanco Iv Per Pharmacy) VANCOMYCIN PER PHARMACY PER PROTOCOL XX ; Start 01/11/19 at 02:30 Lisinopril (Zestril) 2.5 mg DAILY PO Last administered on 01/27/19at 08:28; Admin Dose 2.5 MG; Start 01/13/19 at 09:00 Senna (Senokot) 1 tab DAILY PRN PO CONSTIPATION Last administered on 01/28/19at 21:36; Admin Dose 1 TAB; Start 01/12/19 at 18:30 Docusate Sodium (Colace) 100 mg BID PRN PO CONSTIPATION Last administered on 01/28/19 21:36; Admin Dose 100 MG; Start 01/12/19 at 18:30 Neomycin/ Polymyxin/ Bacitracin (Neosporin Topical Oint) 1 applic DAILY TOP Last administered on 01/29/19 08:38; Admin Dose 1 APPLIC; Start 01/12/19 at 18:30 Cyanocobalamin (Vitamin B12 Inj) 1,000 mcg DAILY IM Last administered on 08:26; Admin Dose 1,000 MCG; Start 01/16/19 at 09:00 Pantoprazole (Protonix Tab) 40 mg DAILY@06 PO Last administered on 01/29/19 06:07; Admin Dose 40 MG; Start 01/17/19 at 06:00 Metronidazole 100 ml @ 100 mls/hr Q8 IVPB Last administered on 01/29/19 06:07; Admin Dose 100 MLS/HR; Start 01/16/19 at 22:00 Cefepime HCl 50 ml @ 100 mls/hr Q12 IVPB Last administered on 01/29/19 08:31; Admin Dose 100 MLS/HR; Start 01/17/19 at 21:00 Oxycodone HCl (Oxycontin) 10 mg BID PO Last administered on 01/28/19 21:25; Admin Dose 10 MG; Start 01/18/19 at 15:00 Furosemide (Lasix) 20 mg BID DIURETICS IV Last administered on 01/29/19 06:13; Admin Dose 20 MG; Start 01/21/19 at 18:30 Hydromorphone HCl (Dilaudid) 0.5 mg Q4H PRN IV SEVERE PAIN LEVEL 7-10 Last administered on 01/29/19 11:43; Admin Dose 0.5 MG; Start 01/22/19 at 13:00 Vancomycin HCl 1.25 gm/Sodium Chloride 250 ml @ 83.333 mls/ hr Q12H IVPB Last administered on 01/29/19 02:02; Admin Dose 83.333 MLS/HR; Start 01/25/19 at 01:00 Insulin Aspart (Novolog Insulin Pen) NOVOLOG *MODERATE* ALGORITHM WITH MEALS BEDTIME SC Last administered on 01/29/19 11:49; Admin Dose 2 UNIT; Start 01/26/19 at 21:00 RAMESH SOLORZANO January 29, 2019 12:18
[2019-01-29] MEDS: DIGOXIN 0.125 MG TAB PO SCH (13:07)
--- NOTE | 2019-01-29 13:07 | CONS ---
Assessment/Plan Assessment/Plan Hospital Course (Demo Recall) 63-year-old gentleman with history of coronary artery disease, status post CABG, also status post AICD placement, hypertension, diabetes, peripheral vascular disease, status post aortogram and right lower extremity runoff and percutaneous angioplasty of the posterior tibial artery and anterior tibial artery in 10/2018. Patient has a worsening RLE heel wound and thus admitted for sepsis. #Gastric mass -pt to have EUS and FNA ans an out patient. 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 Coli, Proteus, and Enterococcus -h/o 6 weeks of IV vancomycin and ceftriaxone in 2018 -need bypass surgery in future # Anemia-normocytic -Hg currently stable > 9 -likely 2/2 GI bleed -continue to hold all blood thinners -CT A/P does not reveal evidence of bleed -f/u endoscopy. pt was found with a T3.5 cm mass/filling defect arising along the lesser curvature of the stomach - consistent with GIST tumor Consultation Date/Type/Reason Admit Date/Time January 09, 2019 at 18:17 Initial Consult Date 01/16/19 Type of Consult oncology Reason for Consultation gastric mass Requesting Provider: KRISTIN PRYOR MD Date/Time of Note DATE: 01/29/19 TIME: 13:04 24 HR Interval Summary Free Text/Dictation no acute overnight events Exam/Review of Systems Exam Vitals Vital Signs Date Temp Pulse Resp B/P (MAP) Pulse Ox O2 O2 Flow FiO2 Time Delivery Rate 01/29/19 97.3 84 20 97/59 (72) 98 Room Air 11:26 Intake and Output 01/28/19 01/28/19 01/29/19 1515:00 23:00 07:00 IntakeIntake Total 1350 ml 750 ml OutputOutput Total 2000 ml 1700 ml BalanceBalance -650 ml -950 ml Constitutional: alert, oriented Psych: no complaints Head: normocephalic Eyes: nl conjunctiva ENMT: nl external ears & nose Neck: supple Respiratory: clear to auscultation Cardiovascular: regular rate and rhythm Gastrointestinal: soft Musculoskeletal: nl extremities to inspection Extremities: normal pulses Results Result Diagram: 01/27/19 0609 01/27/19 0609 Results 24hrs Laboratory Tests Test 01/28/19 17:29 01/28/19 21:23 01/29/19 01:45 01/29/19 07:36 Bedside Glucose 222 H 197 176 123 Test 01/29/19 11:42 Bedside Glucose 159 Medications Medication Current Medications Amiodarone HCl (Cordarone) 200 mg DAILY PO Last administered on 01/28/19 0 9:06; Admin Dose 200 MG; Start 01/10/19 at 09:00 Digoxin (Digoxin) 0.125 mg DAILY@1300 PO Last administered on 01/28/19 12:24; Admin Dose 0.125 MG; Start 01/10/19 at 13:00 Gabapentin (Neurontin) 600 mg DAILY PO Last administered on 01/29/19 08:26; Admin Dose 600 MG; Start 01/10/19 at 09:00 Empaglifozin (Jardiance) 25 mg DAILY PO Last administered on 01/29/19 07:36; Admin Dose 25 MG; Start 01/10/19 at 09:00 Linagliptin (Tradjenta) 5 mg DAILY PO Last administered on 01/29/19 07:37; Admin Dose 5 MG; Start 01/10/19 at 09:00 Diagnostic Test (Pha) (Accu-Chek) 1 ea AC MEALS AND BEDTIME XX Last a dministered on 01/29/19 11:43; Admin Dose 1 EA; Start 01/09/19 at 21:00 Acetaminophen (Tylenol Tab) 650 mg Q4H PRN PO MILD PAIN(1-3)OR ELEVATED TEMP; Start 01/09/19 at 20:30 Ondansetron HCl (Zofran Inj) 4 mg Q6H PRN IV NAUSEA AND/OR VOMITING Last administered on 01/14/19 19:59; Admin Dose 4 MG; Start 01/09/19 at 20:30 Diagnostic Test (Pha) (Accu-Chek) 1 ea 02 XX Last administered on 01/29/19 01: 56; Admin Dose 1 EA; Start 01/10/19 at 02:00 Miscellaneous Information 1 ea NOTE XX ; Start 01/09/19 at 21:30 Glucose (Glutose) 15 gm Q15M PRN PO DECREASED GLUCOSE; Start 01/09/19 at 21:30 Glucose (Glutose) 22.5 gm Q15M PRN PO DECREASED GLUCOSE; Start 01/09/19 at 21:30 Dextrose (D50w Syringe) 25 ml Q15M PRN IV DECREASED GLUCOSE; Start 01/09/19 at 21:30 Dextrose (D50w Syringe) 50 ml Q15M PRN IV DECREASED GLUCOSE; Start 01/09/19 at 21:30 Glucagon (Glucagen) 1 mg Q15M PRN IM DECREASED GLUCOSE; Start 01/09/19 at 21:30 Glucose (Glutose) 15 gm Q15M PRN BUCCAL DECREASED GLUCOSE; Start 01/09/19 at 21:30 Insulin Glargine (Lantus) 18 units QHS SC Last administered on 01/28/19 21:33; Admin Dose 18 UNITS; Start 01/09/19 at 22:30 Carvedilol (Coreg) 3.125 mg BID PO Last administered on 01/27/19 08:29; Admin Dose 3.125 MG; Start 01/10/19 at 21:00 Vancomycin HCl (Vanco Iv Per Pharmacy) VANCOMYCIN PER PHARMACY PER PROTOCOL XX ; Start 01/11/19 at 02:30 Lisinopril (Zestril) 2.5 mg DAILY PO Last administered on 01/27/19 08:28; Admin Dose 2.5 MG; Start 01/13/19 at 09:00 Senna (Senokot) 1 tab DAILY PRN PO CONSTIPATION Last administered on 01/28/19 21:36; Admin Dose 1 TAB; Start 01/12/19 at 18:30 Docusate Sodium (Colace) 100 mg BID PRN PO CONSTIPATION Last administered on 01/28/19 21:36; Admin Dose 100 MG; Start 01/12/19 at 18:30 Neomycin/ Polymyxin/ Bacitracin (Neosporin Topical Oint) 1 applic DAILY TOP Last administered on 01/29/19 08:38; Admin Dose 1 APPLIC; Start 01/12/19 at 18:30 Cyanocobalamin (Vitamin B12 Inj) 1,000 mcg DAILY IM Last administered on 01/29/19 08:26; Admin Dose 1,000 MCG; Start 01/16/19 at 09:00 Pantoprazole (Protonix Tab) 40 mg DAILY@06 PO Last administered on 01/29/19 06:07; Admin Dose 40 MG; Start 01/17/19 at 06:00 Metronidazole 100 ml @ 100 mls/hr Q8 IVPB Last administered on 01/29/19 06:07; Admin Dose 100 MLS/HR; Start 01/16/19 at 22:00 Cefepime HCl 50 ml @ 100 mls/hr Q12 IVPB Last administered on 01/29/19 08:31; Admin Dose 100 MLS/HR; Start 01/17/19 at 21:00 Oxycodone HCl (Oxycontin) 10 mg BID PO Last administered on 01/28/19 21:25; Admin Dose 10 MG; Start 01/18/19 at 15:00 Furosemide (Lasix) 20 mg BID DIURETICS IV Last administered on 01/29/19 06:13; Admin Dose 20 MG; Start 01/21/19 at 18:30 Hydromorphone HCl (Dilaudid) 0.5 mg Q4H PRN IV SEVERE PAIN LEVEL 7-10 Last administered on 01/29/19 11:43; Admin Dose 0.5 MG; Start 01/22/19 at 13:00 Vancomycin HCl 1.25 gm/Sodium Chloride 250 ml @ 83.333 mls/ hr Q12H IVPB Last administered on 01/29/19 02:02; Admin Dose 83.333 MLS/HR; Start 01/25/19 at 01:00 Insulin Aspart (Novolog Insulin Pen) NOVOLOG *MODERATE* ALGORITHM WITH MEALS BEDTIME SC Last administered on 01/29/19 11:49; Admin Dose 2 UNIT; Start 01/26/19 at 21:00 TJ QUINTERO M.D. January 29, 2019 13:07
[2019-01-29] MEDS: oxyCODONE (CR) 10 MG TAB [oxyCONTIN] PO SCH ×2 (13:08→20:16)
--- NOTE | 2019-01-29 16:37 | CONS ---
Assessment/Plan Assessment/Plan Hospital Course (Demo Recall) - polymicrobial infection of non-healing ulcer of R heel. CT on 01/10/2019 did not show evidence of OM. ESR 26 on 01/09/2019 and 37 on 01/12/2019; superficial wound cx Pseudomonas, E. Coli, Enterococcus (isolated from broth only), scant Proteus, and scant CoNS - s/p Debridement of the right calcaneal ulceration 01/13/2019; intraop cx grew E. Coli, Proteus, and Enterococcus - chronic wound of R heel, in the past the wound culture grew E. coli - h/o OM of R foot, h/o 6 weeks of IV vancomycin and ceftriaxone in 2018. 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 - Continue Cefepime (restart 01/17/2019-) for Pseudomonas, E. Coli and Proteus. PHOEBE Wyman spoke with [facility] who confirmed sensis of Cefepime to E. Coli and Proteus. E.coli is resistant to Amp-sulbactam - Continue IV vancomycin (01/11/2019-) - Continue Flagyl IV (01/16/19 -) - Hypotension s/p Dilaudid + Lasix - Fall precautions, and recheck BP - f/u path Above plan d/w via [employer]. Consultation Date/Type/Reason Admit Date/Time January 09, 2019 at 18:17 Initial Consult Date 01/10/19 Requesting Provider: KRISITN PRYOR MD Date/Time of Note DATE: 01/29/19 TIME: 16:34 24 HR Interval Summary Free Text/Dictation Pt has remained afebrile and asymptomatic, no acute changes in condition, pending transfer to SNF. Detailed Summary Eyes: no complaints ENT: no complaints Respiratory: no complaints Cardiovascular: no complaints Gastrointestinal: no complaints Genitourinary: no complaints Musculoskeletal: other (R foot wound pain) Skin: no complaints Neurologic: no complaints Endocrine: no complaints Psychological: other; No nl mood/affect (crying and ecpressed sadness regarding to his R foot wound ) Exam/Review of Systems Exam Vitals Vital Signs Date Temp Pulse Resp B/P (MAP) Pulse Ox O2 O2 Flow FiO2 Time Delivery Rate 01/29/19 98.6 75 20 89/54 (66) 97 Room Air 15:05 Intake and Output 01/28/19 01/28/19 01/29/19 1515:00 23:00 07:00 IntakeIntake Total 1350 ml 750 ml OutputOutput Total 2000 ml 1700 ml BalanceBalance -650 ml -950 ml Exam Constitutional: alert, oriented, well developed, obese; No distress Psych: nl mood/affect Head: normocephalic Eyes: EOMI, PERRL ENMT: mucosa pink and moist Neck: supple Respiratory: clear to auscultation, normal air movement; No congested cough, No crackles/rales Cardiovascular: regular rate and rhythm, edema (+1 BLE) Gastrointestinal: soft, non-tender, bowel sounds (normoactive); No rebound or guarding Extremities: No cyanosis, No clubbing 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: nl speech, nl strength Skin: other (right foot wound wrapped in kerlix and bandage) Results Result Diagram: 01/27/19 0609 01/27/19 0609 Results 24hrs Laboratory Tests Test 01/28/19 17:29 01/28/19 21:23 01/29/19 01:45 01/29/19 07:36 Bedside Glucose 222 H 197 176 123 Test 01/29/19 11:42 Bedside Glucose 159 Medications Medication Current Medications Amiodarone HCl (Cordarone) 200 mg DAILY PO Last administered on 01/28/19at 09:06; Admin Dose 200 MG; Start 01/10/19 at 09:00 Digoxin (Digoxin) 0.125 mg DAILY@1300 PO Last administered on 01/29/19at 13:07; Admin Dose 0.125 MG; Start 01/10/19 at 13:00 Gabapentin (Neurontin) 600 mg DAILY PO Last administered on 01/29/19at 08:26; Admin Dose 600 MG; Start 01/10/19 at 09:00 Empaglifozin (Jardiance) 25 mg DAILY PO Last administered on 01/29/19 07:36; Admin Dose 25 MG; Start 01/10/19 at 09:00 Linagliptin (Tradjenta) 5 mg DAILY PO Last administered on 01/29/19 07:37; Admin Dose 5 MG; Start 01/10/19 at 09:00 Diagnostic Test (Pha) (Accu-Chek) 1 ea AC MEALS AND BEDTIME XX Last administered on 01/29/19 11:43; Admin Dose 1 EA; Start 01/09/19 at 21:00 Acetaminophen (Tylenol Tab) 650 mg Q4H PRN PO MILD PAIN(1-3)OR ELEVATED TEMP; Start 01/09/19 at 20:30 Ondansetron HCl (Zofran Inj) 4 mg Q6H PRN IV NAUSEA AND/OR VOMITING Last administered on 01/14/19 19:59; Admin Dose 4 MG; Start 01/09/19 at 20:30 Diagnostic Test (Pha) (Accu-Chek) 1 ea 02 XX Last administered on 01/29/19 01:56; Admin Dose 1 EA; Start 01/10/19 at 02:00 Miscellaneous Information 1 ea NOTE XX ; Start 01/09/19 at 21:30 Glucose (Glutose) 15 gm Q15M PRN PO DECREASED GLUCOSE; Start 01/09/19 at 21:30 Glucose (Glutose) 22.5 gm Q15M PRN PO DECREASED GLUCOSE; Start 01/09/19 at 21:30 Dextrose (D50w Syringe) 25 ml Q15M PRN IV DECREASED GLUCOSE; Start 01/09/19 at 21:30 Dextrose (D50w Syringe) 50 ml Q15M PRN IV DECREASED GLUCOSE; Start 01/09/19 at 21:30 Glucagon (Glucagen) 1 mg Q15M PRN IM DECREASED GLUCOSE; Start 01/09/19 at 21:30 Glucose (Glutose) 15 gm Q15M PRN BUCCAL DECREASED GLUCOSE; Start 01/09/19 at 21:30 Insulin Glargine (Lantus) 18 units QHS SC Last administered on 01/28/19 21:33; Admin Dose 18 UNITS; Start 01/09/19 at 22:30 Carvedilol (Coreg) 3.125 mg BID PO Last administered on 01/27/19 08:29; Admin Dose 3.125 MG; Start 01/10/19 at 21:00 Vancomycin HCl (Vanco Iv Per Pharmacy) VANCOMYCIN PER PHARMACY PER PROTOCOL XX ; Start 01/11/19 at 02:30 Lisinopril (Zestril) 2.5 mg DAILY PO Last administered on 01/27/19 08:28; Admin Dose 2.5 MG; Start 01/13/19 at 09:00 Senna (Senokot) 1 tab DAILY PRN PO CONSTIPATION Last administered on 01/28/19 21:36; Admin Dose 1 TAB; Start 01/12/19 at 18:30 Docusate Sodium (Colace) 100 mg BID PRN PO CONSTIPATION Last administered on 01/28/19 21:36; Admin Dose 100 MG; Start 01/12/19 at 18:30 Neomycin/ Polymyxin/ Bacitracin (Neosporin Topical Oint) 1 applic DAILY TOP Last administered on 01/29/19 08:38; Admin Dose 1 APPLIC; Start 01/12/19 at 18:30 Cyanocobalamin (Vitamin B12 Inj) 1,000 mcg DAILY IM Last administered on 01/29/19 08:26; Admin Dose 1,000 MCG; Start 01/16/19 at 09:00 Pantoprazole (Protonix Tab) 40 mg DAILY@06 PO Last administered on 01/29/19 06:07; Admin Dose 40 MG; Start 01/17/19 at 06:00 Metronidazole 100 ml @ 100 mls/hr Q8 IVPB Last administered on 01/29/19 14:37; Admin Dose 100 MLS/HR; Start 01/16/19 at 22:00 Cefepime HCl 50 ml @ 100 mls/hr Q12 IVPB Last administered on 01/29/19 08:31; Admin Dose 100 MLS/HR; Start 01/17/19 at 21:00 Oxycodone HCl (Oxycontin) 10 mg BID PO Last administered on 01/29/19 13:08; Admin Dose 10 MG; Start 01/18/19 at 15:00 Furosemide (Lasix) 20 mg BID DIURETICS IV Last administered on 01/29/19 06:13; Admin Dose 20 MG; Start 01/21/19 at 18:30 Hydromorphone HCl (Dilaudid) 0.5 mg Q4H PRN IV SEVERE PAIN LEVEL 7-10 Last administered on 01/29/19 11:43; Admin Dose 0.5 MG; Start 01/22/19 at 13:00 Vancomycin HCl 1.25 gm/Sodium Chloride 250 ml @ 83.333 mls/ hr Q12H IVPB Last administered on 01/29/19 13:07; Admin Dose 83.333 MLS/HR; Start 01/25/19 at 01:00 Insulin Aspart (Novolog Insulin Pen) NOVOLOG *MODERATE* ALGORITHM WITH MEALS BEDTIME SC Last administered on 01/29/19 11:49; Admin Dose 2 UNIT; Start 01/26/19 at 21:00 BLANCO MAR NP January 29, 2019 16:37
--- NOTE | 2019-01-29 19:35 | CONS ---
Assessment/Plan Assessment/Plan Hospital Course (Demo Recall) IMP: 1.Pre-op for peripheral bypass surgery. Lexiscan with no ischemia/+scar EF 28%. Echo EF 25%. OK to proceed to surgery at moderate CV risk 2.Cardiomyopathy with low EF-severely depressed by echo this admit 3.HTN 4.HL 5.Non-healing LE ulcer 6.PAD-severe s/p prior ART CRITIC 7.DM 8. 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 Recc: -ON tele -Continue digoxin -Continue coreg and zestril as tolerated only for treatment of cardiomyopathy -Continue amiodarone -Continue abx's and f/u cx data -Follow volume status closely and continue lasix diuresis -local wound care -pnding LE bypass when patient stable. Pedro transferred to SNF -transfuse PRBC's as neccessary Consultation Date/Type/Reason Admit Date/Time January 09, 2019 at 18:17 Initial Consult Date 01/10/19 Type of Consult Cardiology Reason for Consultation Preop/cardiomyopathy Requesting Provider: KRISTIN PRYOR MD Date/Time of Note DATE: 01/29/19 TIME: 19:31 Exam/Review of Systems Vital Signs Vitals Vital Signs Date Temp Pulse Resp B/P (MAP) Pulse Ox O2 O2 Flow FiO2 Time Delivery Rate 01/29/19 81 17:25 01/29/19 98.6 20 89/54 (66) 97 Room Air 15:05 Intake and Output 01/28/19 01/28/19 01/29/19 1515:00 23:00 07:00 IntakeIntake Total 1350 ml 750 ml OutputOutput Total 2000 ml 1700 ml BalanceBalance -650 ml -950 ml Exam Exam Review of Systems: CONSTITUTIONAL: No fevers, chills. PULMONARY: No sob CARDIOVASCULAR: No chest pain/palpitations GASTROINTESTINAL: No nausea/vomiting. GENITOURINARY: No hematuria/dysuria. MUSCULOSKELETAL: No myagias/arthalgias. PSYCHIATRIC: The patient denies depression. NEUROLOGIC: No weakness Constitutional: alert, oriented Psych: no complaints Head: normocephalic ENMT: mucosa pink and moist Neck: supple, jvd (9 cm water) Respiratory: clear to auscultation Cardiovascular: regular rate and rhythm Gastrointestinal: soft, non-tender Musculoskeletal: muscle tone (normal) Extremities: pitting pedal edema (bilateral but decreased) Labs Result Diagram: 01/27/19 0609 01/27/19 0609 Results 24hrs Laboratory Tests Test 01/28/19 21:23 01/29/19 01:45 01/29/19 07:36 01/29/19 11:42 Bedside Glucose 197 176 123 159 Test 01/29/19 17:48 Bedside Glucose 196 Medications Medications Current Medications Amiodarone HCl (Cordarone) 200 mg DAILY PO Last administered on 01/28/19 09:06; Admin Dose 200 MG; Start 01/10/19 at 09:00 Digoxin (Digoxin) 0.125 mg DAILY@1300 PO Last administered on 01/29/19 13:07; Admin Dose 0.125 MG; Start 01/10/19 at 13:00 Gabapentin (Neurontin) 600 mg DAILY PO Last administered on 01/29/19 08:26; Admin Dose 600 MG; Start 01/10/19 at 09:00 Empaglifozin (Jardiance) 25 mg DAILY PO Last administered on 01/29/19 07:36; Admin Dose 25 MG; Start 01/10/19 at 09:00 Linagliptin (Tradjenta) 5 mg DAILY PO Last administered on 01/29/19 07:37; Admin Dose 5 MG; Start 01/10/19 at 09:00 Diagnostic Test (Pha) (Accu-Chek) 1 ea AC MEALS AND BEDTIME XX Last administered on 01/29/19 11:43; Admin Dose 1 EA; Start 01/09/19 at 21:00 Acetaminophen (Tylenol Tab) 650 mg Q4H PRN PO MILD PAIN(1-3)OR ELEVATED TEMP; Start 01/09/19 at 20:30 Ondansetron HCl (Zofran Inj) 4 mg Q6H PRN IV NAUSEA AND/OR VOMITING Last administered on 01/14/19 19:59; Admin Dose 4 MG; Start 01/09/19 at 20:30 Diagnostic Test (Pha) (Accu-Chek) 1 ea 02 XX Last administered on 01/29/19 01:56; Admin Dose 1 EA; Start 01/10/19 at 02:00 Miscellaneous Information 1 ea NOTE XX ; Start 01/09/19 at 21:30 Glucose (Glutose) 15 gm Q15M PRN PO DECREASED GLUCOSE; Start 01/09/19 at 21:30 Glucose (Glutose) 22.5 gm Q15M PRN PO DECREASED GLUCOSE; Start 01/09/19 at 21:30 Dextrose (D50w Syringe) 25 ml Q15M PRN IV DECREASED GLUCOSE; Start 01/09/19 at 21:30 Dextrose (D50w Syringe) 50 ml Q15M PRN IV DECREASED GLUCOSE; Start 01/09/19 at 21:30 Glucagon (Glucagen) 1 mg Q15M PRN IM DECREASED GLUCOSE; Start 01/09/19 at 21:30 Glucose (Glutose) 15 gm Q15M PRN BUCCAL DECREASED GLUCOSE; Start 01/09/19 at 21:30 Insulin Glargine (Lantus) 18 units QHS SC Last administered on 01/28/19 21:33; Admin Dose 18 UNITS; Start 01/09/19 at 22:30 Carvedilol (Coreg) 3.125 mg BID PO Last administered on 01/27/19 08:29; Admin Dose 3.125 MG; Start 01/10/19 at 21:00 Vancomycin HCl (Vanco Iv Per Pharmacy) VANCOMYCIN PER PHARMACY PER PROTOCOL XX ; Start 01/11/19 at 02:30 Lisinopril (Zestril) 2.5 mg DAILY PO Last administered on 01/27/19 08:28; Admin Dose 2.5 MG; Start 01/13/19 at 09:00 Senna (Senokot) 1 tab DAILY PRN PO CONSTIPATION Last administered on 01/28/19 21:36; Admin Dose 1 TAB; Start 01/12/19 at 18:30 Docusate Sodium (Colace) 100 mg BID PRN PO CONSTIPATION Last administered on 21:36; Admin Dose 100 MG; Start 01/12/19 at 18:30 Neomycin/ Polymyxin/ Bacitracin (Neosporin Topical Oint) 1 applic DAILY TOP Last administered on 01/29/19 08:38; Admin Dose 1 APPLIC; Start 01/12/19 at 18:30 Cyanocobalamin (Vitamin B12 Inj) 1,000 mcg DAILY IM Last administered on 01/29/19 08:26; Admin Dose 1,000 MCG; Start 01/16/19 at 09:00 Pantoprazole (Protonix Tab) 40 mg DAILY@06 PO Last administered on 01/29/19 06:07; Admin Dose 40 MG; Start 01/17/19 at 06:00 Metronidazole 100 ml @ 100 mls/hr Q8 IVPB Last administered on 01/29/19 14:37; Admin Dose 100 MLS/HR; Start 01/16/19 at 22:00 Cefepime HCl 50 ml @ 100 mls/hr Q12 IVPB Last administered on 01/29/19 08:31; Admin Dose 100 MLS/HR; Start 01/17/19 at 21:00 Oxycodone HCl (Oxycontin) 10 mg BID PO Last administered on 01/29/19 13:08; Admin Dose 10 MG; Start 01/18/19 at 15:00 Furosemide (Lasix) 20 mg BID DIURETICS IV Last administered on 01/29/19 06:13; Admin Dose 20 MG; Start 01/21/19 at 18:30 Hydromorphone HCl (Dilaudid) 0.5 mg Q4H PRN IV SEVERE PAIN LEVEL 7-10 Last administered on 01/29/19 17:55; Admin Dose 0.5 MG; Start 01/22/19 at 13:00 Vancomycin HCl 1.25 gm/Sodium Chloride 250 ml @ 83.333 mls/ hr Q12H IVPB Last administered on 01/29/19 13:07; Admin Dose 83.333 MLS/HR; Start 01/25/19 at 01:00 Insulin Aspart (Novolog Insulin Pen) NOVOLOG *MODERATE* ALGORITHM WITH MEALS BEDTIME SC Last administered on 01/29/19 17:50; Admin Dose 4 UNIT; Start 01/26/19 at 21:00 IV Flush (NS 10 ml) 10 ml PRN PRN IV IV PROTOCOL; Start 01/29/19 at 17:00 VERO ARELLANO January 29, 2019 19:35
[2019-01-29] MEDS: DOCUSATE SODIUM 100 MG CAP PO PRN (20:30)
[2019-01-29] MEDS: INSULIN GLARGINE [LANTus] (100 UNITS/ML) SYG SC SCH (20:35)
[2019-01-30] VITALS (10 sets, daily range): BP systolic 90–116; BP diastolic 54–63; PULSE 66–86; RESP 16–19
[2019-01-30] MEDS: VANCOMYCIN HCL 1.25 GM in SOD CHLORIDE 0.9% 250 ML IVPB SCH ×2 (00:21→12:24)
[2019-01-30] MEDS: ACCU-CHEK XX SCH ×5 (01:49→20:27)
[2019-01-30] MEDS: HYDROmorphONE 0.5 MG/0.5 ML SYG IV PRN ×6 (04:29→21:47)
[2019-01-30] MEDS: FUROSEMIDE 20 MG INJ IV SCH ×2 (05:19→18:00)
[2019-01-30] MEDS: PANTOPRAZOLE (EC) 40 MG TAB PO SCH (05:22)
[2019-01-30] MEDS: metroNIDAZOLE 500 MG/NS (PMX) 100 ML IVPB SCH ×3 (05:22→21:45)
--- NOTE | 2019-01-30 05:59 | CONS ---
Assessment/Plan Assessment/Plan Assessment/Plan (Daily) Status post debridement debridement the right human chronic wound Severe peripheral vascular disease status post angioplasty times two, hyperkalemia hypertension coronary artery disease status post coronary artery bypass graft, cardiomyopathy with an ejection fraction 25% Severe peripheral vascular disease resulting in uncontrolled pain with elevation of his leg with light dependent pain is almost 100% resolved Patient remains very optimistic that he will continue to improve, pain is under control with very low dose of opioids and distraction therapy. Progressing well pain is under control she is not negotiating for higher doses of medications Consultation Date/Type/Reason Admit Date/Time January 09, 2019 at 18:17 Initial Consult Date 01/16/19 Requesting Provider: KRISTIN PRYOR MD Date/Time of Note DATE: 01/30/19 TIME: 05:58 Exam/Review of Systems Exam Vitals Vital Signs Date Temp Pulse Resp B/P (MAP) Pulse Ox O2 O2 Flow FiO2 Time Delivery Rate 01/30/19 98.2 67 19 98/56 (70) 96 Room Air 04:11 Intake and Output 01/29/19 01/29/19 01/30/19 1515:00 23:00 07:00 IntakeIntake Total 870 ml 950 ml OutputOutput Total 3000 ml 2800 ml BalanceBalance -2130 ml -1850 ml Constitutional: alert, oriented, well developed Psych: anxiety 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: [employer] II-XII intact, nl mental status, nl speech, nl strength; No confused, No DTR's symmetric, No focal weakness, No lethargic, No numbness, No reflexes, No unresponsive, No other Results Result Diagram: 01/27/19 0609 01/27/19 0609 Results 24hrs Laboratory Tests Test 01/29/19 07:36 01/29/19 11:42 01/29/19 17:48 01/29/19 20:24 Bedside Glucose 123 159 196 141 Medications Medication Current Medications Amiodarone HCl (Cordarone) 200 mg DAILY PO Last administered on 01/28/19at 09:06; Admin Dose 200 MG; Start 01/10/19 at 09:00 Digoxin (Digoxin) 0.125 mg DAILY@1300 PO Last administered on 01/29/19at 13:07; Admin Dose 0.125 MG; Start 01/10/19 at 13:00 Gabapentin (Neurontin) 600 mg DAILY PO Last administered on 01/29/19 08:26; Admin Dose 600 MG; Start 01/10/19 at 09:00 Empaglifozin (Jardiance) 25 mg DAILY PO Last administered on 01/29/19 07:36; Admin Dose 25 MG; Start 01/10/19 at 09:00 Linagliptin (Tradjenta) 5 mg DAILY PO Last administered on 01/29/19 07:37; Admin Dose 5 MG; Start 01/10/19 at 09:00 Diagnostic Test (Pha) (Accu-Chek) 1 ea AC MEALS AND BEDTIME XX Last administered on 01/29/19 20:37; Admin Dose 1 EA; Start 01/09/19 at 21:00 Acetaminophen (Tylenol Tab) 650 mg Q4H PRN PO MILD PAIN(1-3)OR ELEVATED TEMP; Start 01/09/19 at 20:30 Ondansetron HCl (Zofran Inj) 4 mg Q6H PRN IV NAUSEA AND/OR VOMITING Last administered on 01/14/19 19:59; Admin Dose 4 MG; Start 01/09/19 at 20:30 Diagnostic Test (Pha) (Accu-Chek) 1 ea 02 XX Last administered on 01/29/19 01:56; Admin Dose 1 EA; Start 01/10/19 at 02:00 Miscellaneous Information 1 ea NOTE XX ; Start 01/09/19 at 21:30 Glucose (Glutose) 15 gm Q15M PRN PO DECREASED GLUCOSE; Start 01/09/19 at 21:30 Glucose (Glutose) 22.5 gm Q15M PRN PO DECREASED GLUCOSE; Start 01/09/19 at 21:30 Dextrose (D50w Syringe) 25 ml Q15M PRN IV DECREASED GLUCOSE; Start 01/09/19 at 21:30 Dextrose (D50w Syringe) 50 ml Q15M PRN IV DECREASED GLUCOSE; Start 01/09/19 at 21:30 Glucagon (Glucagen) 1 mg Q15M PRN IM DECREASED GLUCOSE; Start 01/09/19 at 21:30 Glucose (Glutose) 15 gm Q15M PRN BUCCAL DECREASED GLUCOSE; Start 01/09/19 at 21:30 Insulin Glargine (Lantus) 18 units QHS SC Last administered on 01/29/19 20:35; Admin Dose 18 UNITS; Start 01/09/19 at 22:30 Carvedilol (Coreg) 3.125 mg BID PO Last administered on 01/27/19 08:29; Admin Dose 3.125 MG; Start 01/10/19 at 21:00 Vancomycin HCl (Vanco Iv Per Pharmacy) VANCOMYCIN PER PHARMACY PER PROTOCOL XX ; Start 01/11/19 at 02:30 Lisinopril (Zestril) 2.5 mg DAILY PO Last administered on 01/27/19 08:28; Admin Dose 2.5 MG; Start 01/13/19 at 09:00 Senna (Senokot) 1 tab DAILY PRN PO CONSTIPATION Last administered on 01/28/19 21:36; Admin Dose 1 TAB; Start 01/12/19 at 18:30 Docusate Sodium (Colace) 100 mg BID PRN PO CONSTIPATION Last administered on 01/29/19 20:30; Admin Dose 100 MG; Start 01/12/19 at 18:30 Neomycin/ Polymyxin/ Bacitracin (Neosporin Topical Oint) 1 applic DAILY TOP Last administered on 01/29/19 08:38; Admin Dose 1 APPLIC; Start 01/12/19 at 18:30 Cyanocobalamin (Vitamin B12 Inj) 1,000 mcg DAILY IM Last administered on 01/29/19 08:26; Admin Dose 1,000 MCG; Start 01/16/19 at 09:00 Pantoprazole (Protonix Tab) 40 mg DAILY@06 PO Last administered on 01/30/19 05:22; Admin Dose 40 MG; Start 01/17/19 at 06:00 Metronidazole 100 ml @ 100 mls/hr Q8 IVPB Last administered on 01/30/19 05:22; Admin Dose 100 MLS/HR; Start 01/16/19 at 22:00 Cefepime HCl 50 ml @ 100 mls/hr Q12 IVPB Last administered on 01/29/19 20:19; Admin Dose 100 MLS/HR; Start 01/17/19 at 21:00 Oxycodone HCl (Oxycontin) 10 mg BID PO Last administered on 01/29/19 20:16; Admin Dose 10 MG; Start 01/18/19 at 15:00 Furosemide (Lasix) 20 mg BID DIURETICS IV Last administered on 5/23/19at 06:13; Admin Dose 20 MG; Start 01/21/19 at 18:30 Hydromorphone HCl (Dilaudid) 0.5 mg Q4H PRN IV SEVERE PAIN LEVEL 7-10 Last administered on 01/30/19 04:29; Admin Dose 0.5 MG; Start 01/22/19 at 13:00 Vancomycin HCl 1.25 gm/Sodium Chloride 250 ml @ 83.333 mls/ hr Q12H IVPB Last administered on 01/30/19at 00:21; Admin Dose 83.333 MLS/HR; Start 01/25/19 at 01:00 Insulin Aspart (Novolog Insulin Pen) NOVOLOG *MODERATE* ALGORITHM WITH MEALS BEDTIME SC Last administered on 01/29/19at 17:50; Admin Dose 4 UNIT; Start 01/26/19 at 21:00 IV Flush (NS 10 ml) 10 ml PRN PRN IV IV PROTOCOL; Start 01/29/19 at 17:00 BIGG RICHARDSON January 30, 2019 05:59
[2019-01-30] MEDS: INSULIN ASPART [NOVOLOG] 3 ML PEN SC SCH ×4 (07:50→20:27)
[2019-01-30] MEDS: LINAGLIPTIN 5 MG TABLET PO SCH (08:26)
[2019-01-30] MEDS: AMIODARONE 200 MG TAB PO SCH (08:26)
[2019-01-30] MEDS: GABAPENTIN 300 MG CAP PO SCH (08:27)
[2019-01-30] MEDS: oxyCODONE (CR) 10 MG TAB [oxyCONTIN] PO SCH ×2 (08:27→20:23)
[2019-01-30] MEDS: LISINOPRIL 5 MG TAB PO SCH (08:28)
[2019-01-30] MEDS: EMPAGLIFLOZIN 10 MG TABLET PO SCH (08:29)
[2019-01-30] MEDS: CYANOCOBALAMIN 1000 MCG INJ IM SCH (08:32)
[2019-01-30] MEDS: DOCUSATE SODIUM 100 MG CAP PO PRN (08:35)
[2019-01-30] MEDS: CEFEPIME 2GM/50 ML (PMX) 50 ML IVPB SCH ×2 (08:38→21:44)
[2019-01-30] MEDS: NEOMYC/POLYMYX/BACIT 30 GM OINT TOP SCH (08:40)
[2019-01-30] MEDS: DIGOXIN 0.125 MG TAB PO SCH (12:24)
--- NOTE | 2019-01-30 13:27 | CONS ---
Assessment/Plan Assessment/Plan Hospital Course (Demo Recall) - polymicrobial infection of non-healing ulcer of R heel. CT on 01/10/2019 did not show evidence of OM. ESR 26 on 01/09/2019 and 37 on 01/12/2019; superficial wound cx Pseudomonas, E. Coli, Enterococcus (isolated from broth only), scant Proteus, and scant CoNS - s/p Debridement of the right calcaneal ulceration 01/13/2019; intraop cx grew E. Coli, Proteus, and Enterococcus - chronic wound of R heel, in the past the wound culture grew E. coli - h/o OM of R foot, h/o 6 weeks of IV vancomycin and ceftriaxone in 2018. 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 - Continue Cefepime (restart 01/17/2019-) for Pseudomonas, E. Coli and Proteus. PHOEBE Wyman spoke with [facility] who confirmed sensis of Cefepime to E. Coli and Proteus. E.coli is resistant to Amp-sulbactam - Continue IV vancomycin (01/11/2019-) - Continue Flagyl IV (01/16/19 -) - F/u path Plan was d/w patient and with Dr. Urbano via [facility]. Consultation Date/Type/Reason Admit Date/Time January 09, 2019 at 18:17 Initial Consult Date 01/10/19 Type of Consult ID Requesting Provider: KRISTIN PRYOR MD Date/Time of Note DATE: 01/30/19 TIME: 13:26 24 HR Interval Summary Free Text/Dictation Patient reports he does not yet know which correction he will be transferred. States he has a court date on 02/11/19 and is asking who will write him a note whe n he is at the correction. Has remained afebrile, no acute issues reported by nursing s/p PICC placement yesterday Detailed Summary Eyes: no complaints ENT: no complaints Respiratory: no complaints; No cough, No shortness of breath, No wheezing Cardiovascular: no complaints, edema (R foot); No chest pain, No palpitations Gastrointestinal: no complaints; No decreased appetite, No diarrhea, No nausea, No vomiting Genitourinary: other (reports trouble initiating urine stream. ); No dysuria (or burning) Musculoskeletal: swelling (R foot); No restricted range of motion Skin: other (R foot wound, pt states dressing was changed saturday and that he was told it is more shallow and healing well. Reports intermittent pain 7/10, currently 0/10 ) Neurologic: other (Numbness R foot x3 days - dressing not tight) Endocrine: no complaints Lymphatic: no complaints Psychological: no complaints Immunologic: no complaints Exam/Review of Systems Exam Vitals Vital Signs Date Temp Pulse Resp B/P (MAP) Pulse Ox O2 O2 Flow FiO2 Time Delivery Rate 01/30/19 86 12:22 01/30/19 98.1 16 116/60 98 Room Air 11:34 (78) Allergies Coded Allergies No Known Allergy (Unverified01/09/19) Intake and Output 01/29/19 01/29/19 01/30/19 1515:00 23:00 07:00 IntakeIntake Total 870 ml 950 ml OutputOutput Total 3000 ml 2800 ml BalanceBalance -2130 ml -1850 ml Exam Exam Constitutional: alert, oriented, well developed, other (sitting on the side of the bed stretching his limbs) Psych: no complaints, nl mood/affect Head: normocephalic, atraumatic Eyes: nl conjunctiva, nl lids, nl sclera ENMT: nl external ears & nose, nl nasal mucosa & septum, mucosa pink and moist (no thrush) Neck: supple, non-tender Respiratory: clear to auscultation, normal air movement; No labored breathing, No wheezing Cardiovascular: regular rate and rhythm, nl pulses, edema (right foot swelling) Gastrointestinal: soft, non-tender, bowel sounds (normoactive); No distended, No firm, No tender Genitourinary - Male: other (urinal at bedside containing clear yellow urine) Extremities: normal pulses, other (right foot wrapped with a c/d/i dressing, RUE PICC site is c/d/i) 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: 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 intact, nl mental status, nl speech, nl strength Skin: nl turgor; No rash or lesions Results Result Diagram: 01/27/19 0609 01/30/19 0614 Results 24hrs Laboratory Tests Test 01/29/19 17:48 01/29/19 20:24 01/30/19 06:14 01/30/19 07:49 Bedside Glucose 196 141 119 Blood Urea Nitrogen 18 Creatinine 0.59 L Test 01/30/19 11:48 Bedside Glucose 133 Medications Medication Current Medications Amiodarone HCl (Cordarone) 200 mg DAILY PO Last administered on 01/30/19 08: 26; Admin Dose 200 MG; Start 01/10/19 at 09:00 Digoxin (Digoxin) 0.125 mg DAILY@1300 PO Last administered on 01/30/19 12:24; Admin Dose 0.125 MG; Start 01/10/19 at 13:00 Gabapentin (Neurontin) 600 mg DAILY PO Last administered on 01/30/19 08:27; Admin Dose 600 MG; Start 01/10/19 at 09:00 Empaglifozin (Jardiance) 25 mg DAILY PO Last administered on 01/30/19 08:29; Admin Dose 25 MG; Start 01/10/19 at 09:00 Linagliptin (Tradjenta) 5 mg DAILY PO Last administered on 01/30/19 08:26; Admin Dose 5 MG; Start 01/10/19 at 09:00 Diagnostic Test (Pha) (Accu-Chek) 1 ea AC MEALS AND BEDTIME XX Last adm inistered on 01/30/19 11:46; Admin Dose 1 EA; Start 01/09/19 at 21:00 Acetaminophen (Tylenol Tab) 650 mg Q4H PRN PO MILD PAIN(1-3)OR ELEVATED TEMP; Start 01/09/19 at 20:30 Ondansetron HCl (Zofran Inj) 4 mg Q6H PRN IV NAUSEA AND/OR VOMITING Last administered on 01/14/19 19:59; Admin Dose 4 MG; Start 01/09/19 at 20:30 Diagnostic Test (Pha) (Accu-Chek) 1 ea 02 XX Last administered on 01/29/19at 01:56; Admin Dose 1 EA; Start 01/10/19 at 02:00 Miscellaneous Information 1 ea NOTE XX ; Start 01/09/19 at 21:30 Glucose (Glutose) 15 gm Q15M PRN PO DECREASED GLUCOSE; Start 01/09/19 at 21:30 Glucose (Glutose) 22.5 gm Q15M PRN PO DECREASED GLUCOSE; Start 01/09/19 at 21:30 Dextrose (D50w Syringe) 25 ml Q15M PRN IV DECREASED GLUCOSE; Start 01/09/19 at 21:30 Dextrose (D50w Syringe) 50 ml Q15M PRN IV DECREASED GLUCOSE; Start 01/09/19 at 21:30 Glucagon (Glucagen) 1 mg Q15M PRN IM DECREASED GLUCOSE; Start 01/09/19 at 21:30 Glucose (Glutose) 15 gm Q15M PRN BUCCAL DECREASED GLUCOSE; Start 01/09/19 at 21:30 Insulin Glargine (Lantus) 18 units QHS SC Last administered on 01/29/19 20:35; Admin Dose 18 UNITS; Start 01/09/19 at 22:30 Carvedilol (Coreg) 3.125 mg BID PO Last administered on 01/27/19 08:29; Admin Dose 3.125 MG; Start 01/10/19 at 21:00 Vancomycin HCl (Vanco Iv Per Pharmacy) VANCOMYCIN PER PHARMACY PER PROTOCOL XX ; Start 01/11/19 at 02:30 Lisinopril (Zestril) 2.5 mg DAILY PO Last administered on 01/30/19 08:28; Admin Dose 2.5 MG; Start 01/13/19 at 09:00 Senna (Senokot) 1 tab DAILY PRN PO CONSTIPATION Last administered on 01/28/19 21:36; Admin Dose 1 TAB; Start 01/12/19 at 18:30 Docusate Sodium (Colace) 100 mg BID PRN PO CONSTIPATION Last administered on 01/30/19 08:35; Admin Dose 100 MG; Start 01/12/19 at 18:30 Neomycin/ Polymyxin/ Bacitracin (Neosporin Topical Oint) 1 applic DAILY TOP Last administered on 01/30/19 08:40; Admin Dose 1 APPLIC; Start 01/12/19 at 18:30 Cyanocobalamin (Vitamin B12 Inj) 1,000 mcg DAILY IM Last administered on 01/30/19 08:32; Admin Dose 1,000 MCG; Start 01/16/19 at 09:00 Pantoprazole (Protonix Tab) 40 mg DAILY@06 PO Last administered on 01/30/19 05:22; Admin Dose 40 MG; Start 01/17/19 at 06:00 Metronidazole 100 ml @ 100 mls/hr Q8 IVPB Last administered on 01/30/19 05:22; Admin Dose 100 MLS/HR; Start 01/16/19 at 22:00 Cefepime HCl 50 ml @ 100 mls/hr Q12 IVPB Last administered on 01/30/19 08:38; Admin Dose 100 MLS/HR; Start 01/17/19 at 21:00 Oxycodone HCl (Oxycontin) 10 mg BID PO Last administered on 01/30/19 08:27; Admin Dose 10 MG; Start 01/18/19 at 15:00 Furosemide (Lasix) 20 mg BID DIURETICS IV Last administered on 01/29/19 06:13; Admin Dose 20 MG; Start 01/21/19 at 18:30 Hydromorphone HCl (Dilaudid) 0.5 mg Q4H PRN IV SEVERE PAIN LEVEL 7-10 Last administered on 01/30/19 13:05; Admin Dose 0.5 MG; Start 01/22/19 at 13:00 Vancomycin HCl 1.25 gm/Sodium Chloride 250 ml @ 83.333 mls/ hr Q12H IVPB Last administered on 01/30/19 12:24; Admin Dose 83.333 MLS/HR; Start 01/25/19 at 01:00 Insulin Aspart (Novolog Insulin Pen) NOVOLOG *MODERATE* ALGORITHM WITH MEALS BEDTIME SC Last administered on 01/29/19 17:50; Admin Dose 4 UNIT; Start 01/26/19 at 21:00 IV Flush (NS 10 ml) 10 ml PRN PRN IV IV PROTOCOL; Start 01/29/19 at 17:00 FELICITY SORTO NP January 30, 2019 13:27
--- NOTE | 2019-01-30 15:02 | CONS ---
Assessment/Plan Assessment/Plan Assessment/Plan (Daily) 1. Right heel necrotic wound. -s/p debridement of rt foot, silvadene cream 2. Cardiomyopathy with ejection fraction of 20% to 30%. 3. Peripheral vascular disease status post PCI, right lower extremity. 4. Coronary artery disease status post coronary artery bypass graft. 5. Status post automatic implantable cardioverter-defibrillator. 6. Hypertension. 7. Diabetes mellitus. 8. Anemia. Patient has a significant drop in hematocrit. So far, clinically, there is no evidence of obvious GI bleeding. 9. Ovoid mass or filling defect arising from lesser curvature of stomach. -GIST tumor 10. Pt is pre op for peripheral artery bypass surgery which is on hold for now. Plan EUS with FNA as outpatient to confirm GIST tumor diagnosis. Will likely need surgical removal of tumor in future. Spoke with patient today regarding GIST tumor Patient will be completing the course of antibiotic for his wound infection in the lower extremity Plan of care discussed the patient he understood and has agreed. My office will try to get urgent authorization for EUS and FNA Consultation Date/Type/Reason Admit Date/Time January 09, 2019 at 18:17 Initial Consult Date 01/16/19 Requesting Provider: KRISTIN PRYOR MD Date/Time of Note DATE: 01/30/19 TIME: 15:01 24 HR Interval Summary Constitutional: no complaints, improved Exam/Review of Systems Exam Vitals Vital Signs Date Temp Pulse Resp B/P (MAP) Pulse Ox O2 O2 Flow FiO2 Time Delivery Rate 01/30/19 86 12:22 01/30/19 98.1 16 116/60 98 Room Air 11:34 (78) Intake and Output 01/29/19 01/29/19 01/30/19 1515:00 23:00 07:00 IntakeIntake Total 870 ml 950 ml OutputOutput Total 3000 ml 2800 ml BalanceBalance -2130 ml -1850 ml Results Result Diagram: 01/27/19 0609 01/30/19 0614 Results 24hrs Laboratory Tests Test 01/29/19 17:48 01/29/19 20:24 01/30/19 06:14 01/30/19 07:49 Bedside Glucose 196 141 119 Blood Urea Nitrogen 18 Creatinine 0.59 L Test 01/30/19 11:48 Bedside Glucose 133 Medications Medication Current Medications Amiodarone HCl (Cordarone) 200 mg DAILY PO Last administered on 01/30/19 08:26; Admin Dose 200 MG; Start 01/10/19 at 09:00 Digoxin (Digoxin) 0.125 mg DAILY@1300 PO Last administered on 01/30/19 12:24; Admin Dose 0.125 MG; Start 01/10/19 at 13:00 Gabapentin (Neurontin) 600 mg DAILY PO Last administered on 01/30/19 08:27; Admin Dose 600 MG; Start 01/10/19 at 09:00 Empaglifozin (Jardiance) 25 mg DAILY PO Last administered on 01/30/19 08:29; Admin Dose 25 MG; Start 01/10/19 at 09:00 Linagliptin (Tradjenta) 5 mg DAILY PO Last administered on 01/30/19 08:26; Admin Dose 5 MG; Start 01/10/19 at 09:00 Diagnostic Test (Pha) (Accu-Chek) 1 ea AC MEALS AND BEDTIME XX Last administered on 01/30/19 11:46; Admin Dose 1 EA; Start 01/09/19 at 21:00 Acetaminophen (Tylenol Tab) 650 mg Q4H PRN PO MILD PAIN(1-3)OR ELEVATED TEMP; Start 01/09/19 at 20:30 Ondansetron HCl (Zofran Inj) 4 mg Q6H PRN IV NAUSEA AND/OR VOMITING Last administered on 01/14/19 19:59; Admin Dose 4 MG; Start 01/09/19 at 20:30 Diagnostic Test (Pha) (Accu-Chek) 1 ea 02 XX Last administered on 01/29/19 01:56; Admin Dose 1 EA; Start 01/10/19 at 02:00 Miscellaneous Information 1 ea NOTE XX ; Start 01/09/19 at 21:30 Glucose (Glutose) 15 gm Q15M PRN PO DECREASED GLUCOSE; Start 01/09/19 at 21:30 Glucose (Glutose) 22.5 gm Q15M PRN PO DECREASED GLUCOSE; Start 01/09/19 at 21:30 Dextrose (D50w Syringe) 25 ml Q15M PRN IV DECREASED GLUCOSE; Start 01/09/19 at 21:30 Dextrose (D50w Syringe) 50 ml Q15M PRN IV DECREASED GLUCOSE; Start 01/09/19 at 21:30 Glucagon (Glucagen) 1 mg Q15M PRN IM DECREASED GLUCOSE; Start 01/09/19 at 21:30 Glucose (Glutose) 15 gm Q15M PRN BUCCAL DECREASED GLUCOSE; Start 01/09/19 at 21:30 Insulin Glargine (Lantus) 18 units QHS SC Last administered on 01/29/19 20:35; Admin Dose 18 UNITS; Start 01/09/19 at 22:30 Carvedilol (Coreg) 3.125 mg BID PO Last administered on 01/27/19 08:29; Admin Dose 3.125 MG; Start 01/10/19 at 21:00 Vancomycin HCl (Vanco Iv Per Pharmacy) VANCOMYCIN PER PHARMACY PER PROTOCOL XX ; Start 01/11/19 at 02:30 Lisinopril (Zestril) 2.5 mg DAILY PO Last administered on 01/30/19 08:28; Admin Dose 2.5 MG; Start 01/13/19 at 09:00 Senna (Senokot) 1 tab DAILY PRN PO CONSTIPATION Last administered on 01/28/19 21:36; Admin Dose 1 TAB; Start 01/12/19 at 18:30 Docusate Sodium (Colace) 100 mg BID PRN PO CONSTIPATION Last administered on 01/30/19 08:35; Admin Dose 100 MG; Start 01/12/19 at 18:30 Neomycin/ Polymyxin/ Bacitracin (Neosporin Topical Oint) 1 applic DAILY TOP Last administered on 01/30/19 08:40; Admin Dose 1 APPLIC; Start 01/12/19 at 18:30 Cyanocobalamin (Vitamin B12 Inj) 1,000 mcg DAILY IM Last administered on 01/30/19 08:32; Admin Dose 1,000 MCG; Start 01/16/19 at 09:00 Pantoprazole (Protonix Tab) 40 mg DAILY@06 PO Last administered on 01/30/19 05:22; Admin Dose 40 MG; Start 01/17/19 at 06:00 Metronidazole 100 ml @ 100 mls/hr Q8 IVPB Last administered on 01/30/19 05:22; Admin Dose 100 MLS/HR; Start 01/16/19 at 22:00 Cefepime HCl 50 ml @ 100 mls/hr Q12 IVPB Last administered on 01/30/19 08:38; Admin Dose 100 MLS/HR; Start 01/17/19 at 21:00 Oxycodone HCl (Oxycontin) 10 mg BID PO Last administered on 01/30/19 08:27; Admin Dose 10 MG; Start 01/18/19 at 15:00 Furosemide (Lasix) 20 mg BID DIURETICS IV Last administered on 01/29/19 06:13; Admin Dose 20 MG; Start 01/21/19 at 18:30 Hydromorphone HCl (Dilaudid) 0.5 mg Q4H PRN IV SEVERE PAIN LEVEL 7-10 Last administered on 01/30/19 13:05; Admin Dose 0.5 MG; Start 01/22/19 at 13:00 Vancomycin HCl 1.25 gm/Sodium Chloride 250 ml @ 83.333 mls/ hr Q12H IVPB Last administered on 01/30/19 12:24; Admin Dose 83.333 MLS/HR; Start 01/25/19 at 01:00 Insulin Aspart (Novolog Insulin Pen) NOVOLOG *MODERATE* ALGORITHM WITH MEALS BEDTIME SC Last administered on 01/29/19 17:50; Admin Dose 4 UNIT; Start 01/26/19 at 21:00 IV Flush (NS 10 ml) 10 ml PRN PRN IV IV PROTOCOL; Start 01/29/19 at 17:00 KACI TORRES MD January 30, 2019 15:02
--- NOTE | 2019-01-30 16:00 | CONS ---
Assessment/Plan Assessment/Plan Hospital Course (Demo Recall) IMP: 1.Pre-op for peripheral bypass surgery. Lexiscan with no ischemia/+scar EF 28%. Echo EF 25%. OK to proceed to surgery at moderate CV risk 2.Cardiomyopathy with low EF-severely depressed by echo this admit 3.HTN 4.HL 5.Non-healing LE ulcer 6.PAD-severe s/p prior [employer] 7.DM 8. 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 Recc: -ON tele -Continue digoxin -Continue coreg and zestril as tolerated only for treatment of cardiomyopathy -Continue amiodarone -Continue abx's and f/u cx data -Follow volume status closely and continue lasix diuresis -local wound care -pnding LE bypass when patient stable. Pedro transferred to SNF and to return for surgery at later date -transfuse PRBC's as neccessary Consultation Date/Type/Reason Admit Date/Time January 09, 2019 at 18:17 Initial Consult Date 01/10/19 Type of Consult Cardiology Reason for Consultation preop Requesting Provider: KRISTIN PRYOR MD Date/Time of Note DATE: 01/30/19 TIME: 15:58 Exam/Review of Systems Vital Signs Vitals Vital Signs Date Temp Pulse Resp B/P (MAP) Pulse Ox O2 O2 Flow FiO2 Time Delivery Rate 01/30/19 98.7 72 16 94/55 (68) 98 Room Air 15:35 Intake and Output 01/29/19 01/29/19 01/30/19 1515:00 23:00 07:00 IntakeIntake Total 870 ml 950 ml OutputOutput Total 3000 ml 2800 ml BalanceBalance -2130 ml -1850 ml Exam Exam Review of Systems: CONSTITUTIONAL: No fevers, chills. PULMONARY: No sob CARDIOVASCULAR: No chest pain/palpitations GASTROINTESTINAL: No nausea/vomiting. GENITOURINARY: No hematuria/dysuria. MUSCULOSKELETAL: No myagias/arthalgias. PSYCHIATRIC: The patient denies depression. NEUROLOGIC: No weakness Constitutional: alert Psych: no complaints Head: normocephalic ENMT: mucosa pink and moist Neck: supple, jvd (9-10 cm water) Respiratory: diminished breath sounds (at bases/B) Cardiovascular: regular rate and rhythm Gastrointestinal: soft, non-tender Musculoskeletal: muscle tone (normal) Extremities: pitting pedal edema (bilateral) 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: other (No focal deficits) Labs Result Diagram: 01/27/19 0609 01/30/19 0614 Results 24hrs Laboratory Tests Test 01/29/19 17:48 01/29/19 20:24 01/30/19 06:14 01/30/19 07:49 Bedside Glucose 196 141 119 Blood Urea Nitrogen 18 Creatinine 0.59 L Test 01/30/19 11:48 Bedside Glucose 133 Medications Medications Current Medications Amiodarone HCl (Cordarone) 200 mg DAILY PO Last administered on 01/30/19 08:26; Admin Dose 200 MG; Start 01/10/19 at 09:00 Digoxin (Digoxin) 0.125 mg DAILY@1300 PO Last administered on 01/30/19 12:24; Admin Dose 0.125 MG; Start 01/10/19 at 13:00 Gabapentin (Neurontin) 600 mg DAILY PO Last administered on 01/30/19 08:27; Admin Dose 600 MG; Start 01/10/19 at 09:00 Empaglifozin (Jardiance) 25 mg DAILY PO Last administered on 01/30/19 08:29; Admin Dose 25 MG; Start 01/10/19 at 09:00 Linagliptin (Tradjenta) 5 mg DAILY PO Last administered on 01/30/19 08:26; Admin Dose 5 MG; Start 01/10/19 at 09:00 Diagnostic Test (Pha) (Accu-Chek) 1 ea AC MEALS AND BEDTIME XX Last administered on 01/30/19 11:46; Admin Dose 1 EA; Start 01/09/19 at 21:00 Acetaminophen (Tylenol Tab) 650 mg Q4H PRN PO MILD PAIN(1-3)OR ELEVATED TEMP; Start 01/09/19 at 20:30 Ondansetron HCl (Zofran Inj) 4 mg Q6H PRN IV NAUSEA AND/OR VOMITING Last administered on 01/14/19 19:59; Admin Dose 4 MG; Start 01/09/19 at 20:30 Diagnostic Test (Pha) (Accu-Chek) 1 ea 02 XX Last administered on 01/29/19 01:56; Admin Dose 1 EA; Start 01/10/19 at 02:00 Miscellaneous Information 1 ea NOTE XX ; Start 01/09/19 at 21:30 Glucose (Glutose) 15 gm Q15M PRN PO DECREASED GLUCOSE; Start 01/09/19 at 21:30 Glucose (Glutose) 22.5 gm Q15M PRN PO DECREASED GLUCOSE; Start 01/09/19 at 21:30 Dextrose (D50w Syringe) 25 ml Q15M PRN IV DECREASED GLUCOSE; Start 01/09/19 at 21:30 Dextrose (D50w Syringe) 50 ml Q15M PRN IV DECREASED GLUCOSE; Start 01/09/19 at 21:30 Glucagon (Glucagen) 1 mg Q15M PRN IM DECREASED GLUCOSE; Start 01/09/19 at 21:30 Glucose (Glutose) 15 gm Q15M PRN BUCCAL DECREASED GLUCOSE; Start 01/09/19 at 21:30 Insulin Glargine (Lantus) 18 units QHS SC Last administered on 01/29/19 20:35; Admin Dose 18 UNITS; Start 01/09/19 at 22:30 Carvedilol (Coreg) 3.125 mg BID PO Last administered on 01/27/19 08:29; Admin Dose 3.125 MG; Start 01/10/19 at 21:00 Vancomycin HCl (Vanco Iv Per Pharmacy) VANCOMYCIN PER PHARMACY PER PROTOCOL XX ; Start 01/11/19 at 02:30 Lisinopril (Zestril) 2.5 mg DAILY PO Last administered on 01/30/19 08:28; Admin Dose 2.5 MG; Start 01/13/19 at 09:00 Senna (Senokot) 1 tab DAILY PRN PO CONSTIPATION Last administered on 01/28/19 21:36; Admin Dose 1 TAB; Start 01/12/19 at 18:30 Docusate Sodium (Colace) 100 mg BID PRN PO CONSTIPATION Last administered on 01/30/19 08:35; Admin Dose 100 MG; Start 01/12/19 at 18:30 Neomycin/ Polymyxin/ Bacitracin (Neosporin Topical Oint) 1 applic DAILY TOP Last administered on 01/30/19 08:40; Admin Dose 1 APPLIC; Start 01/12/19 at 18:30 Cyanocobalamin (Vitamin B12 Inj) 1,000 mcg DAILY IM Last administered on 08:32; Admin Dose 1,000 MCG; Start 01/16/19 at 09:00 Pantoprazole (Protonix Tab) 40 mg DAILY@06 PO Last administered on 01/30/19 05:22; Admin Dose 40 MG; Start 01/17/19 at 06:00 Metronidazole 100 ml @ 100 mls/hr Q8 IVPB Last administered on 01/30/19 15:33; Admin Dose 100 MLS/HR; Start 01/16/19 at 22:00 Cefepime HCl 50 ml @ 100 mls/hr Q12 IVPB Last administered on 01/30/19 08:38; Admin Dose 100 MLS/HR; Start 01/17/19 at 21:00 Oxycodone HCl (Oxycontin) 10 mg BID PO Last administered on 01/30/19 08:27; Admin Dose 10 MG; Start 01/18/19 at 15:00 Furosemide (Lasix) 20 mg BID DIURETICS IV Last administered on 01/29/19 06:13; Admin Dose 20 MG; Start 01/21/19 at 18:30 Hydromorphone HCl (Dilaudid) 0.5 mg Q4H PRN IV SEVERE PAIN LEVEL 7-10 Last administered on 01/30/19 13:05; Admin Dose 0.5 MG; Start 01/22/19 at 13:00 Vancomycin HCl 1.25 gm/Sodium Chloride 250 ml @ 83.333 mls/ hr Q12H IVPB Last administered on 01/30/19 12:24; Admin Dose 83.333 MLS/HR; Start 01/25/19 at 01 :00 Insulin Aspart (Novolog Insulin Pen) NOVOLOG *MODERATE* ALGORITHM WITH MEALS BEDTIME SC Last administered on 01/29/19 17:50; Admin Dose 4 UNIT; Start 01/26/19 at 21:00 IV Flush (NS 10 ml) 10 ml PRN PRN IV IV PROTOCOL; Start 01/29/19 at 17:00 VERO ARELLANO January 30, 2019 16:00
[2019-01-30] MEDS: INSULIN GLARGINE [LANTus] (100 UNITS/ML) SYG SC SCH (20:34)
--- NOTE | 2019-01-30 21:09 | PN ---
DATE: 01/30/2019 SUBJECTIVE: Follow up on gastric mass, right heel necrotic wound, peripheral vascular disease, coron jayde artery disease, cardiomyopathy status post AICD, diabetes. The patient is breathing comfortably at rest. He denies any chest pain. No reported orthopnea, no reported bleeding from any site. No r eported fever or chills. He remains awake and alert. PHYSICAL EXAMINATION: VITAL SIGNS: Temperature 98.7, pulse 72, respirations 16, blood pressure 94/50, O2 saturation 98% ro om air. HEENT: No eye discharge or redness. Conjunctivae normal. Oropharynx clear. NECK: No mass. CHEST: Fairly clear. CARDIOVASCULAR: S1, S2 normal. ABDOMEN: Soft, nontender. EXTREMITIES: No significant edema. The patient has right heel nonhealing ulcer. IMPRESSION 1. Polymicrobial infection of nonhealing ulcer of right heel with negative CT for osteo. Continue a ntibiotic as per ID. 2. Cardiomyopathy. Continue Lasix, lisinopril, carvedilol, digoxin and amiodarone. 3. Diabetes. Continue Lantus and sliding scale insulin and Jardiance. 4. Gastric mass, possible yeast. The patient needs endoscopic ultrasound with FNA as an outpatient to confirm GIST tumor diagnosis. I spoke with Dr. Roberts, his office is obtaining authorization for the above procedures. For now, we will continue to manage his multiple medical issues including acute infection. Dictated By: KRISTIN PRYOR MD AB/NTS Conf#: [id number] DID#: [id number] CC: VERO MAHONEY MD; KRISTIN PRYOR MD;*EndCC*
[2019-01-31] VITALS (12 sets, daily range): BP systolic 91–110; BP diastolic 53–67; PULSE 65–80; RESP 18–22
[2019-01-31] MEDS: VANCOMYCIN HCL 1.25 GM in SOD CHLORIDE 0.9% 250 ML IVPB SCH ×2 (00:18→13:06)
[2019-01-31] MEDS: ACCU-CHEK XX SCH ×5 (01:04→20:25)
[2019-01-31] MEDS: HYDROmorphONE 0.5 MG/0.5 ML SYG IV PRN ×5 (02:53→20:31)
[2019-01-31] MEDS: PANTOPRAZOLE (EC) 40 MG TAB PO SCH (05:28)
[2019-01-31] MEDS: FUROSEMIDE 20 MG INJ IV SCH ×2 (05:28→18:19)
[2019-01-31] MEDS: metroNIDAZOLE 500 MG/NS (PMX) 100 ML IVPB SCH ×3 (05:29→20:32)
[2019-01-31] MEDS: INSULIN ASPART [NOVOLOG] 3 ML PEN SC SCH ×4 (07:55→20:25)
[2019-01-31] MEDS: CYANOCOBALAMIN 1000 MCG INJ IM SCH (08:06)
[2019-01-31] MEDS: NEOMYC/POLYMYX/BACIT 30 GM OINT TOP SCH (08:08)
[2019-01-31] MEDS: EMPAGLIFLOZIN 10 MG TABLET PO SCH (08:09)
[2019-01-31] MEDS: oxyCODONE (CR) 10 MG TAB [oxyCONTIN] PO SCH ×3 (08:09→21:25)
[2019-01-31] MEDS: GABAPENTIN 300 MG CAP PO SCH (08:09)
[2019-01-31] MEDS: LINAGLIPTIN 5 MG TABLET PO SCH (08:10)
[2019-01-31] MEDS: LISINOPRIL 5 MG TAB PO SCH (08:10)
[2019-01-31] MEDS: CEFEPIME 2GM/50 ML (PMX) 50 ML IVPB SCH ×2 (08:10→20:26)
[2019-01-31] MEDS: AMIODARONE 200 MG TAB PO SCH (08:11)
--- NOTE | 2019-01-31 12:43 | CONS ---
Assessment/Plan Assessment/Plan Hospital Course (Demo Recall) - polymicrobial infection of non-healing ulcer of R heel. CT on 01/10/2019 did not show evidence of OM. ESR 26 on 01/09/2019 and 37 on 01/12/2019; superficial wound cx Pseudomonas, E. Coli, Enterococcus (isolated from broth only), scant Proteus, and scant CoNS - s/p Debridement of the right calcaneal ulceration 01/13/2019; intraop cx grew E. Coli, Proteus, and Enterococcus - chronic wound of R heel, in the past the wound culture grew E. coli - h/o OM of R foot, h/o 6 weeks of IV vancomycin and ceftriaxone in 2018. 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 Coli and Proteus. FORENSIC PATHOLOGIST Garo spoke with [facility] who confirmed sensis of Cefepime to E. Coli and Proteus. E.coli is resistant to Amp-sulbactam - Continue IV vancomycin (01/11/2019-) - Continue Flagyl IV (01/16/19 -) - F/u path I personally directed care to FORENSIC PATHOLOGIST yesterday via [employer] messaging. Consultation Date/Type/Reason Admit Date/Time January 09, 2019 at 18:17 Initial Consult Date 01/10/19 Requesting Provider: KRISTIN PRYOR MD Date/Time of Note DATE: 01/31/19 TIME: 12:43 Exam/Review of Systems Exam Vitals Vital Signs Date Temp Pulse Resp B/P (MAP) Pulse Ox O2 O2 Flow FiO2 Time Delivery Rate 01/31/19 98.6 76 22 98/56 (70) 96 Room Air 11:34 Intake and Output 01/30/19 01/30/19 01/31/19 1515:00 23:00 07:00 IntakeIntake Total 750 ml 1150 ml OutputOutput Total 3000 ml 3000 ml BalanceBalance -2250 ml -1850 ml Results Result Diagram: 01/27/19 0609 01/30/19 0614 Results 24hrs Laboratory Tests Test 01/30/19 17:02 01/30/19 20:27 01/31/19 08:08 01/31/19 11:58 Bedside Glucose 186 133 130 114 Medications Medication Current Medications Amiodarone HCl (Cordarone) 200 mg DAILY PO Last administered on 01/31/19 08:11; Admin Dose 200 MG; Start 01/10/19 at 09:00 Digoxin (Digoxin) 0.125 mg DAILY@1300 PO Last administered on 01/30/19 12:24; Admin Dose 0.125 MG; Start 01/10/19 at 13:00 Gabapentin (Neurontin) 600 mg DAILY PO Last administered on 01/31/19 08:09; Admin Dose 600 MG; Start 01/10/19 at 09:00 Empaglifozin (Jardiance) 25 mg DAILY PO Last administered on 01/31/19 08:09; Admin Dose 25 MG; Start 01/10/19 at 09:00 Linagliptin (Tradjenta) 5 mg DAILY PO Last administered on 01/31/19 08:10; Admin Dose 5 MG; Start 01/10/19 at 09:00 Diagnostic Test (Pha) (Accu-Chek) 1 ea AC MEALS AND BEDTIME XX Last administered on 01/31/19 12:17; Admin Dose 1 EA; Start 01/09/19 at 21:00 Acetaminophen (Tylenol Tab) 650 mg Q4H PRN PO MILD PAIN(1-3)OR ELEVATED TEMP; Start 01/09/19 at 20:30 Ondansetron HCl (Zofran Inj) 4 mg Q6H PRN IV NAUSEA AND/OR VOMITING Last administered on 01/14/19 19:59; Admin Dose 4 MG; Start 01/09/19 at 20:30 Diagnostic Test (Pha) (Accu-Chek) 1 ea 02 XX Last administered on 01/29/19 01:56; Admin Dose 1 EA; Start 01/10/19 at 02:00 Miscellaneous Information 1 ea NOTE XX ; Start 01/09/19 at 21:30 Glucose (Glutose) 15 gm Q15M PRN PO DECREASED GLUCOSE; Start 01/09/19 at 21:30 Glucose (Glutose) 22.5 gm Q15M PRN PO DECREASED GLUCOSE; Start 01/09/19 at 21:30 Dextrose (D50w Syringe) 25 ml Q15M PRN IV DECREASED GLUCOSE; Start 01/09/19 at 21:30 Dextrose (D50w Syringe) 50 ml Q15M PRN IV DECREASED GLUCOSE; Start 01/09/19 at 21:30 Glucagon (Glucagen) 1 mg Q15M PRN IM DECREASED GLUCOSE; Start 01/09/19 at 21:30 Glucose (Glutose) 15 gm Q15M PRN BUCCAL DECREASED GLUCOSE; Start 01/09/19 at 21:30 Insulin Glargine (Lantus) 18 units QHS SC Last administered on 01/30/19at 20:34; Admin Dose 18 UNITS; Start 01/09/19 at 22:30 Carvedilol (Coreg) 3.125 mg BID PO Last administered on 01/27/19 08:29; Admin Dose 3.125 MG; Start 01/10/19 at 21:00 Vancomycin HCl (Vanco Iv Per Pharmacy) VANCOMYCIN PER PHARMACY PER PROTOCOL XX ; Start 01/11/19 at 02:30 Lisinopril (Zestril) 2.5 mg DAILY PO Last administered on 01/30/19 08:28; Admi n Dose 2.5 MG; Start 01/13/19 at 09:00 Senna (Senokot) 1 tab DAILY PRN PO CONSTIPATION Last administered on 01/28/19 21:36; Admin Dose 1 TAB; Start 01/12/19 at 18:30 Docusate Sodium (Colace) 100 mg BID PRN PO CONSTIPATION Last administered on 01/30/19 08:35; Admin Dose 100 MG; Start 01/12/19 at 18:30 Neomycin/ Polymyxin/ Bacitracin (Neosporin Topical Oint) 1 applic DAILY TOP Last administered on 01/31/19 08:08; Admin Dose 1 APPLIC; Start 01/12/19 at 18:30 Cyanocobalamin (Vitamin B12 Inj) 1,000 mcg DAILY IM Last administered on 01/31/19 08:06; Admin Dose 1,000 MCG; Start 01/16/19 at 09:00 Pantoprazole (Protonix Tab) 40 mg DAILY@06 PO Last administered on 01/31/19 05:28; Admin Dose 40 MG; Start 01/17/19 at 06:00 Metronidazole 100 ml @ 100 mls/hr Q8 IVPB Last administered on 01/31/19 05:29; Admin Dose 100 MLS/HR; Start 01/16/19 at 22:00 Cefepime HCl 50 ml @ 100 mls/hr Q12 IVPB Last administered on 01/31/19 08:10; Admin Dose 100 MLS/HR; Start 01/17/19 at 21:00 Oxycodone HCl (Oxycontin) 10 mg BID PO Last administered on 01/31/19 11:15; Admin Dose 10 MG; Start 01/18/19 at 15:00 Furosemide (Lasix) 20 mg BID DIURETICS IV Last administered on 01/29/19 06:13; Admin Dose 20 MG; Start 01/21/19 at 18:30 Hydromorphone HCl (Dilaudid) 0.5 mg Q4H PRN IV SEVERE PAIN LEVEL 7-10 Last administered on 01/31/19 12:22; Admin Dose 0.5 MG; Start 01/22/19 at 13:00 Vancomycin HCl 1.25 gm/Sodium Chloride 250 ml @ 83.333 mls/ hr Q12H IVPB Last administered on 01/31/19 00:18; Admin Dose 83.333 MLS/HR; Start 01/25/19 at 01:00 Insulin Aspart (Novolog Insulin Pen) NOVOLOG *MODERATE* ALGORITHM WITH MEALS BEDTIME SC Last administered on 01/30/19 17:23; Admin Dose 4 UNIT; Start 01/26 at 21:00 IV Flush (NS 10 ml) 10 ml PRN PRN IV IV PROTOCOL; Start 01/29/19 at 17:00 DENITA WOMACK MD January 31, 2019 12:43
[2019-01-31] MEDS: DIGOXIN 0.125 MG TAB PO SCH (13:06)
[2019-01-31] MEDS: INSULIN GLARGINE [LANTus] (100 UNITS/ML) SYG SC SCH (20:28)
--- NOTE | 2019-01-31 21:09 | PN ---
Date/Time of Note Date/Time of Note DATE: 01/31/19 TIME: 21:08 Assessment/Plan VTE Prophylaxis Risk score (from Nsg)>0 risk: 5 SCD applied (from Ns): No SCD contraindicated: other Pharmacological prophylaxis: other Pharm contraindication: other Lines/Catheters IV Catheter Type (from Nrsg): PICC Line Central line still needed: Yes Urinary Cath still in place: No Assessment/Plan Assessment/Plan 1. Polymicrobial infection of nonhealing ulcer of right heel with negative CT for osteo. - Continue antibiotic as per ID. - pain control per pain management - per podiatry 2. Cardiomyopathy. Continue Lasix, lisinopril, carvedilol, digoxin and amiodarone. 3. Diabetes. Continue Lantus and sliding scale insulin and Jardiance. 4. Gastric mass, possible yeast. The patient needs endoscopic ultrasound with FNA as an outpatient to confirm GIST tumor diagnosis. - Hem/Onc folllows Dr Mann spoke with Dr. Roberts, his office is obtaining authorization for the above procedures. For now, we will continue to manage his multiple medical issues including acute infection. Patient seen in collaboration with Dr Mann . Dw staff Result Diagram: 01/27/19 0609 01/30/19 0614 Results 24hrs Laboratory Tests Test 01/31/19 08:08 01/31/19 11:58 01/31/19 12:02 01/31/19 17:39 Bedside Glucose 130 114 107 Vancomycin Level 13.0 Trough Test 01/31/19 20:23 Bedside Glucose 154 Subjective 24 Hr Interval Summary Free Text/Dictation c/o right foot pain- pain management follows no new events reported overnight dw staff Eyes: no complaints ENT: no complaints Respiratory: no complaints Cardiovascular: no complaints Gastrointestinal: no complaints Musculoskeletal: bone/joint pain, restricted range of motion Skin: other (Right foot ulcer) Neurologic: no complaints Endocrine: no complaints Lymphatic: no complaints Psychological: no complaints Exam/Review of Systems Exam Vitals Vital Signs Date Temp Pulse Resp B/P (MAP) Pulse Ox O2 O2 Flow FiO2 Time Delivery Rate 01/31/19 71 20:00 01/31/19 98.2 18 92/59 (70) 99 Room Air 19:44 Intake and Output 01/30/19 01/30/19 01/31/19 1515:00 23:00 07:00 IntakeIntake Total 750 ml 1150 ml OutputOutput Total 3000 ml 3000 ml BalanceBalance -2250 ml -1850 ml Constitutional: alert, well developed, obese Psych: nl mood/affect Eyes: nl lids, nl sclera Neck: non-tender Respiratory: clear to auscultation Cardiovascular: nl pulses, other (s1s2) Gastrointestinal: soft, non-tender Musculoskeletal: joint tenderness, range of motion, other (right foot - non healing ulcer- DDI) Extremities: edema 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: nl speech, other (alert/responsive) Skin: other Lymph: nontender Results Results 24hrs Laboratory Tests Test 01/31/19 08:08 01/31/19 11:58 01/31/19 12:02 01/31/19 17:39 Bedside Glucose 130 114 107 Vancomycin Level 13.0 Trough Test 01/31/19 20:23 Bedside Glucose 154 Medications Medication Current Medications Amiodarone HCl (Cordarone) 200 mg DAILY PO Last administered on 01/31/19 08:11; Admin Dose 200 MG; Start 01/10/19 at 09:00 Digoxin (Digoxin) 0.125 mg DAILY@1300 PO Last administered on 01/31/19 13:06; Admin Dose 0.125 MG; Start 01/10/19 at 13:00 Gabapentin (Neurontin) 600 mg DAILY PO Last administered on 01/31/19 08:09; Admin Dose 600 MG; Start 01/10/19 at 09:00 Empaglifozin (Jardiance) 25 mg DAILY PO Last administered on 01/31/19 08:09; Admin Dose 25 MG; Start 01/10/19 at 09:00 Linagliptin (Tradjenta) 5 mg DAILY PO Last administered on 01/31/19 08:10; Admin Dose 5 MG; Start 01/10/19 at 09:00 Diagnostic Test (Pha) (Accu-Chek) 1 ea AC MEALS AND BEDTIME XX Last administered on 01/31/19 20:25; Admin Dose 1 EA; Start 01/09/19 at 21:00 Acetaminophen (Tylenol Tab) 650 mg Q4H PRN PO MILD PAIN(1-3)OR ELEVATED TEMP; Start 01/09/19 at 20:30 Ondansetron HCl (Zofran Inj) 4 mg Q6H PRN IV NAUSEA AND/OR VOMITING Last administered on 01/14/19 19:59; Admin Dose 4 MG; Start 01/09/19 at 20:30 Diagnostic Test (Pha) (Accu-Chek) 1 ea 02 XX Last administered on 01/29/19at 01:56; Admin Dose 1 EA; Start 01/10/19 at 02:00 Miscellaneous Information 1 ea NOTE XX ; Start 01/09/19 at 21:30 Glucose (Glutose) 15 gm Q15M PRN PO DECREASED GLUCOSE; Start 01/09/19 at 21:30 Glucose (Glutose) 22.5 gm Q15M PRN PO DECREASED GLUCOSE; Start 01/09/19 at 21:30 Dextrose (D50w Syringe) 25 ml Q15M PRN IV DECREASED GLUCOSE; Start 01/09/19 at 21:30 Dextrose (D50w Syringe) 50 ml Q15M PRN IV DECREASED GLUCOSE; Start 01/09/19 at 21:30 Glucagon (Glucagen) 1 mg Q15M PRN IM DECREASED GLUCOSE; Start 01/09/19 at 21:30 Glucose (Glutose) 15 gm Q15M PRN BUCCAL DECREASED GLUCOSE; Start 01/09/19 at 21:30 Insulin Glargine (Lantus) 18 units QHS SC Last administered on 01/31/19 20:28; Admin Dose 18 UNITS; Start 01/09/19 at 22:30 Carvedilol (Coreg) 3.125 mg BID PO Last administered on 01/27/19 08:29; Admin Dose 3.125 MG; Start 01/10/19 at 21:00 Vancomycin HCl (Vanco Iv Per Pharmacy) VANCOMYCIN PER PHARMACY PER PROTOCOL XX ; Start 01/11/19 at 02:30 Lisinopril (Zestril) 2.5 mg DAILY PO Last administered on 01/30/19 08:28; Admin Dose 2.5 MG; Start 01/13/19 at 09:00 Senna (Senokot) 1 tab DAILY PRN PO CONSTIPATION Last administered on 01/28/19at 21:36; Admin Dose 1 TAB; Start 01/12/19 at 18:30 Docusate Sodium (Colace) 100 mg BID PRN PO CONSTIPATION Last administered on 01/30/19at 08:35; Admin Dose 100 MG; Start 01/12/19 at 18:30 Neomycin/ Polymyxin/ Bacitracin (Neosporin Topical Oint) 1 applic DAILY TOP [facility] administered on 01/31/19 08:08; Admin Dose 1 APPLIC; Start 01/12/19 at 18:30 Cyanocobalamin (Vitamin B12 Inj) 1,000 mcg DAILY IM Last administered on 01/31/19 08:06; Admin Dose 1,000 MCG; Start 01/16/19 at 09:00 Pantoprazole (Protonix Tab) 40 mg DAILY@06 PO Last administered on 01/31/19 05:28; Admin Dose 40 MG; Start 01/17/19 at 06:00 Metronidazole 100 ml @ 100 mls/hr Q8 IVPB Last administered on 01/31/19 20:32; Admin Dose 100 MLS/HR; Start 01/16/19 at 22:00 Cefepime HCl 50 ml @ 100 mls/hr Q12 IVPB Last administered on 01/31/19 20:26; Admin Dose 100 MLS/HR; Start 01/17/19 at 21:00 Oxycodone HCl (Oxycontin) 10 mg BID PO Last administered on 01/31/19 11:15; Admin Dose 10 MG; Start 01/18/19 at 15:00 Furosemide (Lasix) 20 mg BID DIURETICS IV Last administered on 01/31/19 18:1 9; Admin Dose 20 MG; Start 01/21/19 at 18:30 Hydromorphone HCl (Dilaudid) 0.5 mg Q4H PRN IV SEVERE PAIN LEVEL 7-10 Last administered on 01/31/19 20:31; Admin Dose 0.5 MG; Start 01/22/19 at 13:00 Vancomycin HCl 1.25 gm/Sodium Chloride 250 ml @ 83.333 mls/ hr Q12H IVPB Last administered on 01/31/19 13:06; Admin Dose 83.333 MLS/HR; Start 01/25/19 at 01:00 Insulin Aspart (Novolog Insulin Pen) NOVOLOG *MODERATE* ALGORITHM WITH MEALS BEDTIME SC Last administered on 01/30/19 17:23; Admin Dose 4 UNIT; Start 01/26/19 at 21:00 IV Flush (NS 10 ml) 10 ml PRN PRN IV IV PROTOCOL; Start 01/29/19 at 17:00 MARTINE PUENTES January 31, 2019 21:09
[2019-02-01] VITALS (11 sets, daily range): BP systolic 100–114; BP diastolic 56–73; PULSE 69–106; RESP 18–22
[2019-02-01] MEDS: HYDROmorphONE 0.5 MG/0.5 ML SYG IV PRN ×6 (00:22→20:03)
[2019-02-01] MEDS: VANCOMYCIN HCL 1.25 GM in SOD CHLORIDE 0.9% 250 ML IVPB SCH ×2 (00:22→12:17)
[2019-02-01] MEDS: ACCU-CHEK XX SCH ×5 (02:00→21:01)
[2019-02-01] MEDS: PANTOPRAZOLE (EC) 40 MG TAB PO SCH (05:31)
[2019-02-01] MEDS: metroNIDAZOLE 500 MG/NS (PMX) 100 ML IVPB SCH ×2 (05:31→15:25)
[2019-02-01] MEDS: FUROSEMIDE 20 MG INJ IV SCH ×2 (05:32→17:44)
[2019-02-01] MEDS: INSULIN ASPART [NOVOLOG] 3 ML PEN SC SCH ×4 (07:55→20:20)
[2019-02-01] MEDS: AMIODARONE 200 MG TAB PO SCH (08:32)
[2019-02-01] MEDS: CYANOCOBALAMIN 1000 MCG INJ IM SCH (08:33)
[2019-02-01] MEDS: CEFEPIME 2GM/50 ML (PMX) 50 ML IVPB SCH ×2 (08:33→21:34)
[2019-02-01] MEDS: GABAPENTIN 300 MG CAP PO SCH (08:34)
[2019-02-01] MEDS: LINAGLIPTIN 5 MG TABLET PO SCH (08:34)
[2019-02-01] MEDS: EMPAGLIFLOZIN 10 MG TABLET PO SCH (08:34)
[2019-02-01] MEDS: oxyCODONE (CR) 10 MG TAB [oxyCONTIN] PO SCH ×3 (08:34→21:38)
[2019-02-01] MEDS: LISINOPRIL 5 MG TAB PO SCH (08:35)
[2019-02-01] MEDS: NEOMYC/POLYMYX/BACIT 30 GM OINT TOP SCH (08:35)
--- NOTE | 2019-02-01 09:44 | CONS ---
Assessment/Plan Assessment/Plan Hospital Course (Demo Recall) - polymicrobial infection of non-healing ulcer of R heel. CT on 01/10/2019 did not show evidence of OM. ESR 26 on 01/09/2019 and 37 on 01/12/2019; superficial wound cx Pseudomonas, E. Coli, Enterococcus (isolated from broth only), scant Proteus, and scant CoNS - s/p Debridement of the right calcaneal ulceration 01/13/2019; intraop cx grew E. Coli, Proteus, and Enterococcus - chronic wound of R heel, in the past the wound culture grew E. coli - h/o OM of R foot, h/o 6 weeks of IV vancomycin and ceftriaxone in 2018. 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 Coli and Proteus. PHOEBE Wyman spoke with [facility] who confirmed sensis of Cefepime to E. Coli and Proteus. E.coli is resistant to Amp-sulbactam - Continue IV vancomycin (01/11/2019-) - Continue Flagyl IV (01/16/19 -) - F/u path when avail Plan was d/w patient and patient's RN verbally, and with Dr. Urbano via [employer] messaging. Consultation Date/Type/Reason Admit Date/Time January 09, 2019 at 18:17 Initial Consult Date 01/10/19 Type of Consult ID Requesting Provider: KRISTIN PRYOR MD Date/Time of Note DATE: 02/01/19 TIME: 09:43 24 HR Interval Summary Free Text/Dictation The patient has remained afebrile with no acute issues reported by nursing. WBC 6.2. Detailed Summary Eyes: no complaints ENT: no complaints Respiratory: no complaints; No cough, No shortness of breath, No wheezing Cardiovascular: no complaints, edema (BLE), other (states after dilaudid his bp was low today but most recently was sbp 100s); No chest pain, No palpitations Gastrointestinal: no complaints; No pain, No constipation, No decreased appetite, No diarrhea, No nausea, No vomiting Genitourinary: no complaints; No dysuria Musculoskeletal: swelling (BLE ), other (reports in the am his BLE feet were numb. States he began to shake his feet and legs and he felt better. Still reports numbness R foot.); No neck pain Skin: No pruritis, No rash Neurologic: other (denied tingling BLE) Endocrine: no complaints Psychological: no complaints, nl mood/affect Additional Comments The patient also reports concern that he has been off his plavix x5 days. d/w pt's RN - she will contact md. Exam/Review of Systems Exam Vitals Vital Signs Date Temp Pulse Resp B/P (MAP) Pulse Ox O2 O2 Flow FiO2 Time Delivery Rate 02/01/19 81 08:55 02/01/19 97.8 22 114/56 96 Room Air 07:58 (75) Allergies Coded Allergies No Known Allergy (Unverified01/09/19) Intake and Output 01/31/19 01/31/19 02/01/19 1515:00 23:00 07:00 IntakeIntake Total 50 ml 1720 ml 340 ml OutputOutput Total 2500 ml 4750 ml BalanceBalance 50 ml -780 ml -4410 ml Exam Constitutional: alert, oriented, well developed, other (sitting in a chair at the bedside) Psych: no complaints, nl mood/affect Head: normocephalic, atraumatic Eyes: nl conjunctiva, nl lids, nl sclera ENMT: nl external ears & nose, nl nasal mucosa & septum, mucosa pink and moist (no thrush) Neck: supple, non-tender Respiratory: clear to auscultation, normal air movement; No labored breathing, No wheezing Cardiovascular: regular rate and rhythm, nl pulses, edema (BLE R>L) Gastrointestinal: soft, non-tender, bowel sounds (normoactive); No distended, No firm, No tender Genitourinary - Male: other (urinal at bedside containing clear yellow urine) Extremities: normal pulses, other (right foot wrapped with a c/d/i dressing, RUE PICC site is c/d/i) 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: PERSONAL PROPERTY ASSESSOR II-XII intact, nl mental status, nl speech, nl strength Skin: nl turgor; No rash or lesions Results Result Diagram: 02/01/19 0548 02/01/19 0548 Results 24hrs Laboratory Tests Test 01/31/19 11:58 01/31/19 12:02 01/31/19 17:39 01/31/19 20:23 Bedside Glucose 114 107 154 Vancomycin Level 13.0 Trough Test 02/01/19 05:48 02/01/19 07:55 White Blood Count 6.2 Red Blood Count 3.44 L Hemoglobin 10.2 L Hematocrit 32.9 L Mean Corpuscular 95.6 Volume Mean Corpuscular 29.7 Hemoglobin Mean Corpuscular 31.0 L Hemoglobin Concent Red Cell 16.8 H Distribution Width Platelet Count 238 # Mean Platelet Volume 10.8 H Immature 0.600 H Granulocytes % Neutrophils % 56.9 Lymphocytes % 24.5 Monocytes % 11.9 H Eosinophils % 5.6 Basophils % 0.5 Nucleated Red Blood 0.0 Cells % Immature 0.040 H Granulocytes # Neutrophils # 3.5 Lymphocytes # 1.5 Monocytes # 0.7 Eosinophils # 0.4 Basophils # 0.0 Nucleated Red Blood 0.0 Cells # Sodium Level 139 Potassium Level 4.5 Chloride Level 102 Carbon Dioxide Level 31 Anion Gap 6 Blood Urea Nitrogen 19 Creatinine 0.60 L Est Glomerular > 60 Filtrat Rate mL/min Glucose Level 101 Calcium Level 9.1 Bedside Glucose 111 Medications Medication Current Medications Amiodarone HCl (Cordarone) 200 mg DAILY PO Last administered on 02/01/19at 08:3 2; Admin Dose 200 MG; Start 01/10/19 at 09:00 Digoxin (Digoxin) 0.125 mg DAILY@1300 PO Last administered on 01/31/19 13:06; Admin Dose 0.125 MG; Start 01/10/19 at 13:00 Gabapentin (Neurontin) 600 mg DAILY PO Last administered on 02/01/19at 08:34; Admin Dose 600 MG; Start 01/10/19 at 09:00 Empaglifozin (Jardiance) 25 mg DAILY PO Last administered on 02/01/19at 08:34; Admin Dose 25 MG; Start 01/10/19 at 09:00 Linagliptin (Tradjenta) 5 mg DAILY PO Last administered on 02/01/19 08:34; Admin Dose 5 MG; Start 01/10/19 at 09:00 Diagnostic Test (Pha) (Accu-Chek) 1 ea AC MEALS AND BEDTIME XX Last admi nistered on 02/01/19 07:56; Admin Dose 1 EA; Start 01/09/19 at 21:00 Acetaminophen (Tylenol Tab) 650 mg Q4H PRN PO MILD PAIN(1-3)OR ELEVATED TEMP; Start 01/09/19 at 20:30 Ondansetron HCl (Zofran Inj) 4 mg Q6H PRN IV NAUSEA AND/OR VOMITING Last administered on 01/14/19 19:59; Admin Dose 4 MG; Start 01/09/19 at 20:30 Diagnostic Test (Pha) (Accu-Chek) 1 ea 02 XX Last administered on 01/29/19 01:56; Admin Dose 1 EA; Start 01/10/19 at 02:00 Miscellaneous Information 1 ea NOTE XX ; Start 01/09/19 at 21:30 Glucose (Glutose) 15 gm Q15M PRN PO DECREASED GLUCOSE; Start 01/09/19 at 21:30 Glucose (Glutose) 22.5 gm Q15M PRN PO DECREASED GLUCOSE; Start 01/09/19 at 21:30 Dextrose (D50w Syringe) 25 ml Q15M PRN IV DECREASED GLUCOSE; Start 01/09/19 at 21:30 Dextrose (D50w Syringe) 50 ml Q15M PRN IV DECREASED GLUCOSE; Start 01/09/19 at 21:30 Glucagon (Glucagen) 1 mg Q15M PRN IM DECREASED GLUCOSE; Start 01/09/19 at 21:30 Glucose (Glutose) 15 gm Q15M PRN BUCCAL DECREASED GLUCOSE; Start 01/09/19 at 21:30 Insulin Glargine (Lantus) 18 units QHS SC Last administered on 01/31/19 20:28; Admin Dose 18 UNITS; Start 01/09/19 at 22:30 Carvedilol (Coreg) 3.125 mg BID PO Last administered on 01/27/19 08:29; Admin Dose 3.125 MG; Start 01/10/19 at 21:00 Vancomycin HCl (Vanco Iv Per Pharmacy) VANCOMYCIN PER PHARMACY PER PROTOCOL XX ; Start 01/11/19 at 02:30 Lisinopril (Zestril) 2.5 mg DAILY PO Last administered on 01/30/19 08:28; Admin Dose 2.5 MG; Start 01/13/19 at 09:00 Senna (Senokot) 1 tab DAILY PRN PO CONSTIPATION Last administered on 01/28/19 21:36; Admin Dose 1 TAB; Start 01/12/19 at 18:30 Docusate Sodium (Colace) 100 mg BID PRN PO CONSTIPATION Last administered on 01/30/19 08:35; Admin Dose 100 MG; Start 01/12/19 at 18:30 Neomycin/ Polymyxin/ Bacitracin (Neosporin Topical Oint) 1 applic DAILY TOP Last administered on 02/01/19 08:35; Admin Dose 1 APPLIC; Start 01/12/19 at 18:30 Cyanocobalamin (Vitamin B12 Inj) 1,000 mcg DAILY IM Last administered on 02/01/19 08:33; Admin Dose 1,000 MCG; Start 01/16/19 at 09:00 Pantoprazole (Protonix Tab) 40 mg DAILY@06 PO Last administered on 02/01/19 05:31; Admin Dose 40 MG; Start 01/17/19 at 06:00 Metronidazole 100 ml @ 100 mls/hr Q8 IVPB Last administered on 02/01/19 05:31; Admin Dose 100 MLS/HR; Start 01/16/19 at 22:00 Cefepime HCl 50 ml @ 100 mls/hr Q12 IVPB Last administered on 02/01/19 08:33; Admin Dose 100 MLS/HR; Start 01/17/19 at 21:00 Oxycodone HCl (Oxycontin) 10 mg BID PO Last administered on 01/31/19 21:25; Admin Dose 10 MG; Start 01/18/19 at 15:00 Furosemide (Lasix) 20 mg BID DIURETICS IV Last administered on 02/01/19 05:32; Admin Dose 20 MG; Start 01/21/19 at 18:30 Hydromorphone HCl (Dilaudid) 0.5 mg Q4H PRN IV SEVERE PAIN LEVEL 7-10 Last administered on 5/26/19at 08:35; Admin Dose 0.5 MG; Start 01/22/19 at 13:00 Vancomycin HCl 1.25 gm/Sodium Chloride 250 ml @ 83.333 mls/ hr Q12H IVPB Last administered on 02/01/19at 00:22; Admin Dose 83.333 MLS/HR; Start 01/25/19 at 01:00 Insulin Aspart (Novolog Insulin Pen) NOVOLOG *MODERATE* ALGORITHM WITH MEALS BEDTIME SC Last administered on 01/30/19at 17:23; Admin Dose 4 UNIT; Start 01/26/19 at 21:00 IV Flush (NS 10 ml) 10 ml PRN PRN IV IV PROTOCOL; Start 01/29/19 at 17:00 FELICITY SORTO NP February 01, 2019 09:44
[2019-02-01] MEDS: DIGOXIN 0.125 MG TAB PO SCH (12:35)
[2019-02-01] MEDS: INSULIN GLARGINE [LANTus] (100 UNITS/ML) SYG SC SCH (20:19)
[2019-02-02] VITALS (10 sets, daily range): BP systolic 85–172; BP diastolic 53–75; PULSE 61–84; RESP 18–22
[2019-02-02] MEDS: metroNIDAZOLE 500 MG/NS (PMX) 100 ML IVPB SCH ×4 (00:19→21:01)
[2019-02-02] MEDS: HYDROmorphONE 0.5 MG/0.5 ML SYG IV PRN ×4 (00:20→12:51)
[2019-02-02] MEDS: VANCOMYCIN HCL 1.25 GM in SOD CHLORIDE 0.9% 250 ML IVPB SCH ×2 (01:33→11:38)
[2019-02-02] MEDS: ACCU-CHEK XX SCH ×5 (01:33→21:00)
[2019-02-02] MEDS: FUROSEMIDE 20 MG INJ IV SCH ×2 (05:48→16:51)
[2019-02-02] MEDS: PANTOPRAZOLE (EC) 40 MG TAB PO SCH (05:49)
[2019-02-02] MEDS: INSULIN ASPART [NOVOLOG] 3 ML PEN SC SCH ×4 (07:45→21:00)
[2019-02-02] MEDS: CEFEPIME 2GM/50 ML (PMX) 50 ML IVPB SCH ×2 (07:49→22:30)
[2019-02-02] MEDS: CYANOCOBALAMIN 1000 MCG INJ IM SCH (07:50)
[2019-02-02] MEDS: EMPAGLIFLOZIN 10 MG TABLET PO SCH (07:51)
[2019-02-02] MEDS: LINAGLIPTIN 5 MG TABLET PO SCH (07:51)
[2019-02-02] MEDS: AMIODARONE 200 MG TAB PO SCH (07:51)
[2019-02-02] MEDS: GABAPENTIN 300 MG CAP PO SCH (07:52)
[2019-02-02] MEDS: LISINOPRIL 5 MG TAB PO SCH (07:52)
[2019-02-02] MEDS: NEOMYC/POLYMYX/BACIT 30 GM OINT TOP SCH (09:00)
[2019-02-02] MEDS: oxyCODONE (CR) 10 MG TAB [oxyCONTIN] PO SCH ×2 (10:15→21:09)
[2019-02-02] MEDS: DIGOXIN 0.125 MG TAB PO SCH (11:38)
--- NOTE | 2019-02-02 13:17 | CONS ---
Assessment/Plan Assessment/Plan Hospital Course (Demo Recall) IMP: 1.Pre-op for peripheral bypass surgery. Lexiscan with no ischemia/+scar EF 28%. Echo EF 25%. OK to proceed to surgery at moderate CV risk 2.Cardiomyopathy with low EF-severely depressed by echo this admit 3.HTN 4.HL 5.Non-healing LE ulcer 6.PAD-severe s/p prior DIE CASTER 7.DM 8. 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 Recc: -ON tele -Continue digoxin -Continue coreg and zestril as tolerated only for treatment of cardiomyopathy -Continue amiodarone -Continue abx's and f/u cx data -Follow volume status closely and continue lasix diuresis -local wound care -pnding LE bypass when patient stable. Pedro transferred to SNF and to return for surgery at later date -transfuse PRBC's as neccessary Consultation Date/Type/Reason Admit Date/Time January 09, 2019 at 18:17 Initial Consult Date 01/10/19 Type of Consult Cardiology Reason for Consultation preop/cardiomyopathy Requesting Provider: KRISTIN PRYOR MD Date/Time of Note DATE: 02/02/19 TIME: 13:15 Exam/Review of Systems Vital Signs Vitals Vital Signs Date Temp Pulse Resp B/P (MAP) Pulse Ox O2 O2 Flow FiO2 Time Delivery Rate 02/02/19 83 12:00 02/02/19 98.3 20 93/53 (66) 96 11:44 02/02/19 Room Air 04:55 Intake and Output 02/01/19 02/01/19 02/02/19 1515:00 23:00 07:00 IntakeIntake Total 50 ml 1330 ml 800 ml OutputOutput Total 2500 ml 1900 ml BalanceBalance 50 ml -1170 ml -1100 ml Exam Exam Review of Systems: CONSTITUTIONAL: No fevers, chills. PULMONARY: No sob CARDIOVASCULAR: No chest pain/palpitations GASTROINTESTINAL: No nausea/vomiting. GENITOURINARY: No hematuria/dysuria. MUSCULOSKELETAL: No myagias/arthalgias. PSYCHIATRIC: The patient denies depression. NEUROLOGIC: No weakness Constitutional: alert Psych: no complaints Head: normocephalic ENMT: mucosa pink and moist Neck: supple, jvd (9 cm water) Respiratory: diminished breath sounds Cardiovascular: regular rate and rhythm Gastrointestinal: soft, non-tender Musculoskeletal: muscle tone (normal) Extremities: pitting pedal edema (bilateral with anklecovered by dressing) Labs Result Diagram: 02/01/19 0548 02/01/19 0548 Results 24hrs Laboratory Tests Test 02/01/19 17:36 02/01/19 20:08 02/02/19 07:45 02/02/19 11:29 Bedside Glucose 158 171 115 179 Medications Medications Current Medications Amiodarone HCl (Cordarone) 200 mg DAILY PO Last administered on 02/02/19 07:51; Admin Dose 200 MG; Start 01/10/19 at 09:00 Digoxin (Digoxin) 0.125 mg DAILY@1300 PO Last administered on 02/02/19 11:38; Admin Dose 0.125 MG; Start 01/10/19 at 13:00 Gabapentin (Neurontin) 600 mg DAILY PO Last administered on 02/02/19 07:52; Admin Dose 600 MG; Start 01/10/19 at 09:00 Empaglifozin (Jardiance) 25 mg DAILY PO Last administered on 02/02/19 07:51; Admin Dose 25 MG; Start 01/10/19 at 09:00 Linagliptin (Tradjenta) 5 mg DAILY PO Last administered on 02/02/19 07:51; Admin Dose 5 MG; Start 01/10/19 at 09:00 Diagnostic Test (Pha) (Accu-Chek) 1 ea AC MEALS AND BEDTIME XX Last administered on 02/01/19 21:01; Admin Dose 1 EA; Start 01/09/19 at 21:00 Acetaminophen (Tylenol Tab) 650 mg Q4H PRN PO MILD PAIN(1-3)OR ELEVATED TEMP; Start 01/09/19 at 20:30 Ondansetron HCl (Zofran Inj) 4 mg Q6H PRN IV NAUSEA AND/OR VOMITING Last administered on 01/14/19 19:59; Admin Dose 4 MG; Start 01/09/19 at 20:30 Diagnostic Test (Pha) (Accu-Chek) 1 ea 02 XX Last administered on 01/29/19 01:56; Admin Dose 1 EA; Start 01/10/19 at 02:00 Miscellaneous Information 1 ea NOTE XX ; Start 01/09/19 at 21:30 Glucose (Glutose) 15 gm Q15M PRN PO DECREASED GLUCOSE; Start 01/09/19 at 21:30 Glucose (Glutose) 22.5 gm Q15M PRN PO DECREASED GLUCOSE; Start 01/09/19 at 21:30 Dextrose (D50w Syringe) 25 ml Q15M PRN IV DECREASED GLUCOSE; Start 01/09/19 at 21:30 Dextrose (D50w Syringe) 50 ml Q15M PRN IV DECREASED GLUCOSE; Start 01/09/19 at 21:30 Glucagon (Glucagen) 1 mg Q15M PRN IM DECREASED GLUCOSE; Start 01/09/19 at 21:30 Glucose (Glutose) 15 gm Q15M PRN BUCCAL DECREASED GLUCOSE; Start 01/09/19 at 21:30 Insulin Glargine (Lantus) 18 units QHS SC Last administered on 02/01/19 20:19; Admin Dose 18 UNITS; Start 01/09/19 at 22:30 Carvedilol (Coreg) 3.125 mg BID PO Last administered on 02/01/19at 20:05; Admin Dose 3.125 MG; Start 01/10/19 at 21:00 Vancomycin HCl (Vanco Iv Per Pharmacy) VANCOMYCIN PER PHARMACY PER PROTOCOL XX ; Start 01/11/19 at 02:30 Lisinopril (Zestril) 2.5 mg DAILY PO Last administered on 01/30/19 08:28; Admin Dose 2.5 MG; Start 01/13/19 at 09:00 Senna (Senokot) 1 tab DAILY PRN PO CONSTIPATION Last administered on 01/28/19 21:36; Admin Dose 1 TAB; Start 01/12/19 at 18:30 Docusate Sodium (Colace) 100 mg BID PRN PO CONSTIPATION Last administered on 01/30/19 08:35; Admin Dose 100 MG; Start 01/12/19 at 18:30 Neomycin/ Polymyxin/ Bacitracin (Neosporin Topical Oint) 1 applic DAILY TOP Last administered on 02/02/19 09:00; Admin Dose 1 APPLIC; Start 01/12/19 at 18:30 Cyanocobalamin (Vitamin B12 Inj) 1,000 mcg DAILY IM Last administered on 02/02/19at 07:50; Admin Dose 1,000 MCG; Start 01/16/19 at 09:00 Pantoprazole (Protonix Tab) 40 mg DAILY@06 PO Last administered on 02/02/19 05:49; Admin Dose 40 MG; Start 01/17/19 at 06:00 Metronidazole 100 ml @ 100 mls/hr Q8 IVPB Last administered on 02/02/19 12:51; Admin Dose 100 MLS/HR; Start 01/16/19 at 22:00 Cefepime HCl 50 ml @ 100 mls/hr Q12 IVPB Last administered on 02/02/19 07:49; Admin Dose 100 MLS/HR; Start 01/17/19 at 21:00 Oxycodone HCl (Oxycontin) 10 mg BID PO Last administered on 02/02/19 10:15; Admin Dose 10 MG; Start 01/18/19 at 15:00 Furosemide (Lasix) 20 mg BID DIURETICS IV Last administered on 02/02/19 05:48; Admin Dose 20 MG; Start 01/21/19 at 18:30 Hydromorphone HCl (Dilaudid) 0.5 mg Q4H PRN IV SEVERE PAIN LEVEL 7-10 Last administered on 02/02/19 12:51; Admin Dose 0.5 MG; Start 01/22/19 at 13:00 Vancomycin HCl 1.25 gm/Sodium Chloride 250 ml @ 83.333 mls/ hr Q12H IVPB Last administered on 02/02/19 11:38; Admin Dose 83.333 MLS/HR; Start 01/25/19 at 01:00 Insulin Aspart (Novolog Insulin Pen) NOVOLOG *MODERATE* ALGORITHM WITH MEALS BEDTIME SC Last administered on 02/02/19 11:58; Admin Dose 2 UNIT; Start 01/26/19 at 21:00 IV Flush (NS 10 ml) 10 ml PRN PRN IV IV PROTOCOL; Start 01/29/19 at 17:00 VERO ARELLANO February 02, 2019 13:16
--- NOTE | 2019-02-02 14:42 | CONS ---
Assessment/Plan Assessment/Plan Hospital Course (Demo Recall) - polymicrobial infection of non-healing ulcer of R heel. CT on 01/10/2019 did not show evidence of OM. ESR 26 on 01/09/2019 and 37 on 01/12/2019; superficial wound cx Pseudomonas, E. Coli, Enterococcus (isolated from broth only), scant Proteus, and scant CoNS - s/p Debridement of the right calcaneal ulceration 01/13/2019; intraop cx grew E. Coli, Proteus, and Enterococcus - chronic wound of R heel, in the past the wound culture grew E. coli - h/o OM of R foot, h/o 6 weeks of IV vancomycin and ceftriaxone in 2018. 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 Coli and Proteus. [employer] Garo spoke with [facility] who confirmed sensis of Cefepime to E. Coli and Proteus. E.coli is resistant to Amp-sulbactam - Continue IV vancomycin (01/11/2019-) - Continue Flagyl IV (01/16/19 -) - F/u path when avail I directed care to [employer] yesterday via [id number] messaging. Consultation Date/Type/Reason Admit Date/Time January 09, 2019 at 18:17 Initial Consult Date 01/10/19 Requesting Provider: KRISTIN PRYOR MD Date/Time of Note DATE: 02/02/19 TIME: 14:42 Exam/Review of Systems Exam Vitals Vital Signs Date Temp Pulse Resp B/P (MAP) Pulse Ox O2 O2 Flow FiO2 Time Delivery Rate 02/02/19 83 12:00 02/02/19 98.3 20 93/53 (66) 96 11:44 02/02/19 Room Air 04:55 Intake and Output 02/01/19 02/01/19 02/02/19 1515:00 23:00 07:00 IntakeIntake Total 50 ml 1330 ml 800 ml OutputOutput Total 2500 ml 1900 ml BalanceBalance 50 ml -1170 ml -1100 ml Results Result Diagram: 02/01/19 0548 02/01/19 0548 Results 24hrs Laboratory Tests Test 02/01/19 17:36 02/01/19 20:08 02/02/19 07:45 02/02/19 11:29 Bedside Glucose 158 171 115 179 Medications Medication Current Medications Amiodarone HCl (Cordarone) 200 mg DAILY PO Last administered on 02/02/19 07:51; Admin Dose 200 MG; Start 01/10/19 at 09:00 Digoxin (Digoxin) 0.125 mg DAILY@1300 PO Last administered on 02/02/19 11:38; Admin Dose 0.125 MG; Start 01/10/19 at 13:00 Gabapentin (Neurontin) 600 mg DAILY PO Last administered on 02/02/19 07:52; Admin Dose 600 MG; Start 01/10/19 at 09:00 Empaglifozin (Jardiance) 25 mg DAILY PO Last administered on 02/02/19 07:51; Admin Dose 25 MG; Start 01/10/19 at 09:00 Linagliptin (Tradjenta) 5 mg DAILY PO Last administered on 02/02/19 07:51; Admin Dose 5 MG; Start 01/10/19 at 09:00 Diagnostic Test (Pha) (Accu-Chek) 1 ea AC MEALS AND BEDTIME XX Last administered on 02/01/19 21:01; Admin Dose 1 EA; Start 01/09/19 at 21:00 Acetaminophen (Tylenol Tab) 650 mg Q4H PRN PO MILD PAIN(1-3)OR ELEVATED TEMP; Start 01/09/19 at 20:30 Ondansetron HCl (Zofran Inj) 4 mg Q6H PRN IV NAUSEA AND/OR VOMITING Last administered on 01/14/19 19:59; Admin Dose 4 MG; Start 01/09/19 at 20:30 Diagnostic Test (Pha) (Accu-Chek) 1 ea 02 XX Last administered on 01/29/19 01:56; Admin Dose 1 EA; Start 01/10/19 at 02:00 Miscellaneous Information 1 ea NOTE XX ; Start 01/09/19 at 21:30 Glucose (Glutose) 15 gm Q15M PRN PO DECREASED GLUCOSE; Start 01/09/19 at 21:30 Glucose (Glutose) 22.5 gm Q15M PRN PO DECREASED GLUCOSE; Start 01/09/19 at 21:30 Dextrose (D50w Syringe) 25 ml Q15M PRN IV DECREASED GLUCOSE; Start 01/09/19 at 21:30 Dextrose (D50w Syringe) 50 ml Q15M PRN IV DECREASED GLUCOSE; Start 01/09/19 at 21:30 Glucagon (Glucagen) 1 mg Q15M PRN IM DECREASED GLUCOSE; Start 01/09/19 at 21:30 Glucose (Glutose) 15 gm Q15M PRN BUCCAL DECREASED GLUCOSE; Start 01/09/19 at 21:30 Insulin Glargine (Lantus) 18 units QHS SC Last administered on 02/01/19 20:19; Admin Dose 18 UNITS; Start 01/09/19 at 22:30 Carvedilol (Coreg) 3.125 mg BID PO Last administered on 02/01/19 20:05; Admin Dose 3.125 MG; Start 01/10/19 at 21:00 Vancomycin HCl (Vanco Iv Per Pharmacy) VANCOMYCIN PER PHARMACY PER PROTOCOL XX ; Start 01/11/19 at 02:30 Lisinopril (Zestril) 2.5 mg DAILY PO Last administered on 01/30/19 08:28; Admin Dose 2.5 MG; Start 01/13/19 at 09:00 Senna (Senokot) 1 tab DAILY PRN PO CONSTIPATION Last administered on 01/28/19 21:36; Admin Dose 1 TAB; Start 01/12/19 at 18:30 Docusate Sodium (Colace) 100 mg BID PRN PO CONSTIPATION Last administered on 01/30/19 08:35; Admin Dose 100 MG; Start 01/12/19 at 18:30 Neomycin/ Polymyxin/ Bacitracin (Neosporin Topical Oint) 1 applic DAILY TOP Last administered on 02/02/19 09:00; Admin Dose 1 APPLIC; Start 01/12/19 at 18:30 Cyanocobalamin (Vitamin B12 Inj) 1,000 mcg DAILY IM Last administered on 9at 07:50; Admin Dose 1,000 MCG; Start 01/16/19 at 09:00 Pantoprazole (Protonix Tab) 40 mg DAILY@06 PO Last administered on 02/02/19 05:49; Admin Dose 40 MG; Start 01/17/19 at 06:00 Metronidazole 100 ml @ 100 mls/hr Q8 IVPB Last administered on 02/02/19 12:51; Admin Dose 100 MLS/HR; Start 01/16/19 at 22:00 Cefepime HCl 50 ml @ 100 mls/hr Q12 IVPB Last administered on 02/02/19 07:49; Admin Dose 100 MLS/HR; Start 01/17/19 at 21:00 Oxycodone HCl (Oxycontin) 10 mg BID PO Last administered on 02/02/19 10:15; Admin Dose 10 MG; Start 01/18/19 at 15:00 Furosemide (Lasix) 20 mg BID DIURETICS IV Last administered on 02/02/19 05:48; Admin Dose 20 MG; Start 01/21/19 at 18:30 Hydromorphone HCl (Dilaudid) 0.5 mg Q4H PRN IV SEVERE PAIN LEVEL 7-10 Last administered on 02/02/19 12:51; Admin Dose 0.5 MG; Start 01/22/19 at 13:00 Vancomycin HCl 1.25 gm/Sodium Chloride 250 ml @ 83.333 mls/ hr Q12H IVPB Last administered on 02/02/19 11:38; Admin Dose 83.333 MLS/HR; Start 01/25/19 at 01:00 Insulin Aspart (Novolog Insulin Pen) NOVOLOG *MODERATE* ALGORITHM WITH MEALS BEDTIME SC Last administered on 02/02/19 11:58; Admin Dose 2 UNIT; Start 01/26/19 at 21:00 IV Flush (NS 10 ml) 10 ml PRN PRN IV IV PROTOCOL; Start 01/29/19 at 17:00 DENITA WOMACK MD February 02, 2019 14:42
--- NOTE | 2019-02-02 16:36 | PN ---
Date/Time of Note Date/Time of Note DATE: 02/02/19 TIME: 16:32 Assessment/Plan VTE Prophylaxis Risk score (from Nsg)>0 risk: 7 SCD applied (from Ns): No SCD contraindicated: other Pharmacological prophylaxis: NA/contraindicated Pharm contraindication: anticoag not tolerated Lines/Catheters IV Catheter Type (from Nrsg): PICC Line Central line still needed: Yes Urinary Cath still in place: No Assessment/Plan Hospital Course Patient remains hemodynamically stable, appears febrile, complains of sciatica pain asking for increased and Dilaudid. Dr. Robertson is following in pain management consultation. Discussed with nurse Flores. Patient is pending retirement facility placement for IV antibiotics and wound care. 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 EUS and FNA as an outpatient to confirm GIST tumor diagnosis. Continue PPI. -New onset of anemia and hypotension requiring blood transfusion on 01/15/2019, stool for OB is negative. -Right heel necrotic wound. Dr. Mata is following in podiatry consultation. Status post debridement. Continue antibiotics per ID. Dr. Urbano is following in infection disease consultation. Will require total of 6 weeks of Vancomycin IV, Cefepime IV, and Flagyl IV through 02/22/19. -Chronic peripheral vascular disease, history of angioplasty x2. Dr. Sheppard is following in vascular surgery consultation. Plan for a right pop DP bypass as an outpatient. -Coronary artery disease, status post coronary artery bypass graft. -Cardiomyopathy with ejection fraction of 25%. Continue Coreg. Dr. Foster is following in cardiology consultation. -Status post AICD. -Hx of Hypertension. -Diabetes hemoglobin A1c 7.6. Continue Lantus and NovoLog. -Right knee contusion and abrasion status post fall. Status post evaluation by Dr. Zelaya and orthopedic surgery. No signs of fracture or dystrophic dislocation. -Chronic low back pain with significant spondylolisthesis grade II at the level of L5 to S1. Further recommendations based on clinical course. Plan of care discussed with Dr. Mann. Result Diagram: 02/01/19 0548 02/01/19 0548 Results 24hrs Laboratory Tests Test 02/01/19 17:36 02/01/19 20:08 02/02/19 07:45 02/02/19 11:29 Bedside Glucose 158 171 115 179 Exam/Review of Systems Exam Vitals Vital Signs Date Temp Pulse Resp B/P (MAP) Pulse Ox O2 O2 Flow FiO2 Time Delivery Rate 02/02/19 98.6 80 20 101/59 98 15:37 (73) 75 02/02/19 Room Air 04:55 Intake and Output 02/01/19 02/01/19 02/02/19 1515:00 23:00 07:00 IntakeIntake Total 50 ml 1330 ml 800 ml OutputOutput Total 2500 ml 1900 ml BalanceBalance 50 ml -1170 ml -1100 ml Exam Constitutional: alert, oriented Respiratory: clear to auscultation Cardiovascular: regular rhythm and rate, AICD Gastrointestinal: soft, non-tender Extremities: normal pulses, other (Right heel wound) Right chest triple lumen catheter Results Results 24hrs Laboratory Tests Test 02/01/19 17:36 02/01/19 20:08 02/02/19 07:45 02/02/19 11:29 Bedside Glucose 158 171 115 179 Medications Medication Current Medications Amiodarone HCl (Cordarone) 200 mg DAILY PO Last administered on 02/02/19 07:51; Admin Dose 200 MG; Start 01/10/19 at 09:00 Digoxin (Digoxin) 0.125 mg DAILY@1300 PO Last administered on 02/02/19 11:38; Admin Dose 0.125 MG; Start 01/10/19 at 13:00 Gabapentin (Neurontin) 600 mg DAILY PO Last administered on 02/02/19 07:52; Ad min Dose 600 MG; Start 01/10/19 at 09:00 Empaglifozin (Jardiance) 25 mg DAILY PO Last administered on 02/02/19 07:51; Admin Dose 25 MG; Start 01/10/19 at 09:00 Linagliptin (Tradjenta) 5 mg DAILY PO Last administered on 02/02/19 07:51; Admin Dose 5 MG; Start 01/10/19 at 09:00 Diagnostic Test (Pha) (Accu-Chek) 1 ea AC MEALS AND BEDTIME XX Last administered on 02/01/19 21:01; Admin Dose 1 EA; Start 01/09/19 at 21:00 Acetaminophen (Tylenol Tab) 650 mg Q4H PRN PO MILD PAIN(1-3)OR ELEVATED TEMP; Start 01/09/19 at 20:30 Ondansetron HCl (Zofran Inj) 4 mg Q6H PRN IV NAUSEA AND/OR VOMITING Last admi nistered on 01/14/19at 19:59; Admin Dose 4 MG; Start 01/09/19 at 20:30 Diagnostic Test (Pha) (Accu-Chek) 1 ea 02 XX Last administered on 01/29/19at 01:56; Admin Dose 1 EA; Start 01/10/19 at 02:00 Miscellaneous Information 1 ea NOTE XX ; Start 01/09/19 at 21:30 Glucose (Glutose) 15 gm Q15M PRN PO DECREASED GLUCOSE; Start 01/09/19 at 21:30 Glucose (Glutose) 22.5 gm Q15M PRN PO DECREASED GLUCOSE; Start 01/09/19 at 21:30 Dextrose (D50w Syringe) 25 ml Q15M PRN IV DECREASED GLUCOSE; Start 01/09/19 at 21:30 Dextrose (D50w Syringe) 50 ml Q15M PRN IV DECREASED GLUCOSE; Start 01/09/19 at 21:30 Glucagon (Glucagen) 1 mg Q15M PRN IM DECREASED GLUCOSE; Start 01/09/19 at 21:30 Glucose (Glutose) 15 gm Q15M PRN BUCCAL DECREASED GLUCOSE; Start 01/09/19 at 21:30 Insulin Glargine (Lantus) 18 units QHS SC Last administered on 02/01/19at 20:19; Admin Dose 18 UNITS; Start 01/09/19 at 22:30 Carvedilol (Coreg) 3.125 mg BID PO Last administered on 02/01/19at 20:05; Admin Dose 3.125 MG; Start 01/10/19 at 21:00 Vancomycin HCl (Vanco Iv Per Pharmacy) VANCOMYCIN PER PHARMACY PER PROTOCOL XX ; Start 01/11/19 at 02:30 Lisinopril (Zestril) 2.5 mg DAILY PO Last administered on 01/30/19at 08:28; Admin Dose 2.5 MG; Start 01/13/19 at 09:00 Senna (Senokot) 1 tab DAILY PRN PO CONSTIPATION Last administered on 01/28/19at 21:36; Admin Dose 1 TAB; Start 01/12/19 at 18:30 Docusate Sodium (Colace) 100 mg BID PRN PO CONSTIPATION Last administered on 01/30/19 08:35; Admin Dose 100 MG; Start 01/12/19 at 18:30 Neomycin/ Polymyxin/ Bacitracin (Neosporin Topical Oint) 1 applic DAILY TOP Last administered on 02/02/19 09:00; Admin Dose 1 APPLIC; Start 01/12/19 at 18:30 Cyanocobalamin (Vitamin B12 Inj) 1,000 mcg DAILY IM Last administered on 02/02/19 07:50; Admin Dose 1,000 MCG; Start 01/16/19 at 09:00 Pantoprazole (Protonix Tab) 40 mg DAILY@06 PO Last administered on 02/02/19 05:49; Admin Dose 40 MG; Start 01/17/19 at 06:00 Metronidazole 100 ml @ 100 mls/hr Q8 IVPB Last administered on 02/02/19 12:51; Admin Dose 100 MLS/HR; Start 01/16/19 at 22:00 Cefepime HCl 50 ml @ 100 mls/hr Q12 IVPB Last administered on 02/02/19 07:49; Admin Dose 100 MLS/HR; Start 01/17/19 at 21:00 Oxycodone HCl (Oxycontin) 10 mg BID PO Last administered on 02/02/19 10:15; Admin Dose 10 MG; Start 01/18/19 at 15:00 Furosemide (Lasix) 20 mg BID DIURETICS IV Last administered on 02/02/19 05:48; Admin Dose 20 MG; Start 01/21/19 at 18:30 Hydromorphone HCl (Dilaudid) 0.5 mg Q4H PRN IV SEVERE PAIN LEVEL 7-10 Last administered on 02/02/19 12:51; Admin Dose 0.5 MG; Start 01/22/19 at 13:00 Vancomycin HCl 1.25 gm/Sodium Chloride 250 ml @ 83.333 mls/ hr Q12H IVPB Last administered on 02/02/19 11:38; Admin Dose 83.333 MLS/HR; Start 01/25/19 at 01:00 Insulin Aspart (Novolog Insulin Pen) NOVOLOG *MODERATE* ALGORITHM WITH MEALS BEDTIME SC Last administered on 02/02/19 11:58; Admin Dose 2 UNIT; Start 01/26/19 at 21:00 IV Flush (NS 10 ml) 10 ml PRN PRN IV IV PROTOCOL; Start 01/29/19 at 17:00 Hydromorphone HCl (Dilaudid) 1 mg Q4H PRN IV SEVERE PAIN LEVEL 7-10; Start 02/02/19 at 15:30 RAMESH SOLORZANO February 02, 2019 16:36
[2019-02-02] MEDS: HYDROmorphONE 1 MG/ML SYG IV PRN ×2 (16:51→20:56)
--- NOTE | 2019-02-02 17:49 | CONS ---
Assessment/Plan Assessment/Plan Assessment/Plan (Daily) 63-year-old gentleman with history of coronary artery disease, status post CABG, also status post AICD placement, hypertension, diabetes, peripheral vascular disease, status post aortogram and right lower extremity runoff and percutaneous angioplasty of the posterior tibial artery and anterior tibial artery in 10/2018. Patient has a worsening RLE heel wound and thus admitted for sepsis. #Gastric mass -pt to have EUS and FNA ans an out patient. 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 Coli, Proteus, and Enterococcus -h/o 6 weeks of IV vancomycin and ceftriaxone in 2018 -need bypass surgery in future # Anemia-normocytic -Hg currently stable > 9; 10.2 -likely 2/2 GI bleed -continue to hold all blood thinners -CT A/P does not reveal evidence of bleed -f/u endoscopy. pt was found with a T3.5 cm mass/filling defect arising along the lesser curvature of the stomach - consistent with GIST tumor Patient seen in collaboration with Dr Hancock. Dw staff Consultation Date/Type/Reason Admit Date/Time January 09, 2019 at 18:17 Initial Consult Date 01/16/19 Type of Consult ONCOLOGY/HEMATOLOGY Reason for Consultation ANEMIA Requesting Provider: KRISTIN PRYOR MD Date/Time of Note DATE: 02/02/19 TIME: 17:48 24 HR Interval Summary Free Text/Dictation Sitting at the edge of bed c/o right foot pain no GI bleeding reported Hgb 10.2 no new events reported last night Constitutional: requiring O2 Detailed Summary Eyes: no complaints ENT: no complaints Respiratory: no complaints Cardiovascular: no complaints Gastrointestinal: no complaints Genitourinary: no complaints Musculoskeletal: bone/joint pain, restricted range of motion Skin: other Neurologic: no complaints Endocrine: no complaints Lymphatic: no complaints Psychological: nl mood/affect Immunologic: no complaints Exam/Review of Systems Exam Vitals Vital Signs Date Temp Pulse Resp B/P (MAP) Pulse Ox O2 O2 Flow FiO2 Time Delivery Rate 5/27/19 79 16:00 02/02/19 98.6 20 101/59 98 15:37 (73) 02/02/19 Room Air 04:55 Intake and Output 02/01/19 02/01/19 02/02/19 1515:00 23:00 07:00 IntakeIntake Total 50 ml 1330 ml 800 ml OutputOutput Total 2500 ml 1900 ml BalanceBalance 50 ml -1170 ml -1100 ml Constitutional: alert, well developed Psych: nl mood/affect Head: atraumatic Eyes: nl lids, nl sclera ENMT: nl external ears & nose Neck: non-tender Respiratory: clear to auscultation, diminished breath sounds Cardiovascular: nl pulses, other (s1s2) Gastrointestinal: soft Musculoskeletal: joint tenderness, range of motion Extremities: edema 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: nl mental status, nl speech Skin: other Lymph: nontender Results Result Diagram: 02/01/19 0548 02/01/19 0548 Results 24hrs Laboratory Tests Test 02/01/19 20:08 02/02/19 07:45 02/02/19 11:29 02/02/19 16:52 Bedside Glucose 171 115 179 143 Medications Medication Current Medications Amiodarone HCl (Cordarone) 200 mg DAILY PO Last administered on 02/02/19 07:51; Admin Dose 200 MG; Start 01/10/19 at 09:00 Digoxin (Digoxin) 0.125 mg DAILY@1300 PO Last administered on 02/02/19at 11:38; Admin Dose 0.125 MG; Start 01/10/19 at 13:00 Gabapentin (Neurontin) 600 mg DAILY PO Last administered on 02/02/19 07:52; Admin Dose 600 MG; Start 01/10/19 at 09:00 Empaglifozin (Jardiance) 25 mg DAILY PO Last administered on 02/02/19 07:51; Admin Dose 25 MG; Start 01/10/19 at 09:00 Linagliptin (Tradjenta) 5 mg DAILY PO Last administered on 02/02/19 07:51; Admin Dose 5 MG; Start 01/10/19 at 09:00 Diagnostic Test (Pha) (Accu-Chek) 1 ea AC MEALS AND BEDTIME XX Last administered on 02/01/19at 21:01; Admin Dose 1 EA; Start 01/09/19 at 21:00 Acetaminophen (Tylenol Tab) 650 mg Q4H PRN PO MILD PAIN(1-3)OR ELEVATED TEMP; Start 01/09/19 at 20:30 Ondansetron HCl (Zofran Inj) 4 mg Q6H PRN IV NAUSEA AND/OR VOMITING Last administered on 01/14/19at 19:59; Admin Dose 4 MG; Start 01/09/19 at 20:30 Diagnostic Test (Pha) (Accu-Chek) 1 ea 02 XX Last administered on 01/29/19at 01:56; Admin Dose 1 EA; Start 01/10/19 at 02:00 Miscellaneous Information 1 ea NOTE XX ; Start 01/09/19 at 21:30 Glucose (Glutose) 15 gm Q15M PRN PO DECREASED GLUCOSE; Start 01/09/19 at 21:30 Glucose (Glutose) 22.5 gm Q15M PRN PO DECREASED GLUCOSE; Start 01/09/19 at 21:30 Dextrose (D50w Syringe) 25 ml Q15M PRN IV DECREASED GLUCOSE; Start 01/09/19 at 21:30 Dextrose (D50w Syringe) 50 ml Q15M PRN IV DECREASED GLUCOSE; Start 01/09/19 at 21:30 Glucagon (Glucagen) 1 mg Q15M PRN IM DECREASED GLUCOSE; Start 01/09/19 at 21:30 Glucose (Glutose) 15 gm Q15M PRN BUCCAL DECREASED GLUCOSE; Start 01/09/19 at 21:30 Insulin Glargine (Lantus) 18 units QHS SC Last administered on 02/01/19at 20:19; Admin Dose 18 UNITS; Start 01/09/19 at 22:30 Carvedilol (Coreg) 3.125 mg BID PO Last administered on 02/01/19at 20:05; Admin Dose 3.125 MG; Start 01/10/19 at 21:00 Vancomycin HCl (Vanco Iv Per Pharmacy) VANCOMYCIN PER PHARMACY PER PROTOCOL XX ; Start 01/11/19 at 02:30 Lisinopril (Zestril) 2.5 mg DAILY PO Last administered on 01/30/19at 08:28; Admin Dose 2.5 MG; Start 01/13/19 at 09:00 Senna (Senokot) 1 tab DAILY PRN PO CONSTIPATION Last administered on 01/28/19at 21:36; Admin Dose 1 TAB; Start 01/12/19 at 18:30 Docusate Sodium (Colace) 100 mg BID PRN PO CONSTIPATION Last administered on 01/30/19 08:35; Admin Dose 100 MG; Start 01/12/19 at 18:30 Neomycin/ Polymyxin/ Bacitracin (Neosporin Topical Oint) 1 applic DAILY TOP Last administered on 02/02/19 09:00; Admin Dose 1 APPLIC; Start 01/12/19 at 18:30 Cyanocobalamin (Vitamin B12 Inj) 1,000 mcg DAILY IM Last administered on 02/02/19 07:50; Admin Dose 1,000 MCG; Start 01/16/19 at 09:00 Pantoprazole (Protonix Tab) 40 mg DAILY@06 PO Last administered on 02/02/19 05:49; Admin Dose 40 MG; Start 01/17/19 at 06:00 Metronidazole 100 ml @ 100 mls/hr Q8 IVPB Last administered on 02/02/19 12:51; Admin Dose 100 MLS/HR; Start 01/16/19 at 22:00 Cefepime HCl 50 ml @ 100 mls/hr Q12 IVPB Last administered on 02/02/19 07:49; Admin Dose 100 MLS/HR; Start 01/17/19 at 21:00 Oxycodone HCl (Oxycontin) 10 mg BID PO Last administered on 02/02/19 10:15; Admin Dose 10 MG; Start 01/18/19 at 15:00 Furosemide (Lasix) 20 mg BID DIURETICS IV Last administered on 02/02/19 16:51; Admin Dose 20 MG; Start 01/21/19 at 18:30 Vancomycin HCl 1.25 gm/Sodium Chloride 250 ml @ 83.333 mls/ hr Q12H IVPB Last administered on 02/02/19 11:38; Admin Dose 83.333 MLS/HR; Start 01/25/19 at 01:00 Insulin Aspart (Novolog Insulin Pen) NOVOLOG *MODERATE* ALGORITHM WITH MEALS BEDTIME SC Last administered on 02/02/19 16:54; Admin Dose 2 UNIT; Start 01/26/19 at 21:00 IV Flush (NS 10 ml) 10 ml PRN PRN IV IV PROTOCOL; Start 01/29/19 at 17:00 Hydromorphone HCl (Dilaudid) 1 mg Q4H PRN IV SEVERE PAIN LEVEL 7-10 Last admin istered on 02/02/19at 16:51; Admin Dose 1 MG; Start 02/02/19 at 15:30 MARTINE PUENTES February 02, 2019 17:49
[2019-02-02] MEDS: INSULIN GLARGINE [LANTus] (100 UNITS/ML) SYG SC SCH (21:12)
[2019-02-03] VITALS (9 sets, daily range): BP systolic 84–113; BP diastolic 50–63; PULSE 64–79; RESP 18–20
[2019-02-03] MEDS: HYDROmorphONE 1 MG/ML SYG IV PRN ×6 (01:05→21:02)
[2019-02-03] MEDS: VANCOMYCIN HCL 1.25 GM in SOD CHLORIDE 0.9% 250 ML IVPB SCH ×2 (01:05→13:07)
[2019-02-03] MEDS: ACCU-CHEK XX SCH ×5 (01:05→21:00)
--- NOTE | 2019-02-03 01:59 | PN ---
Date/Time of Note Date/Time of Note DATE: 02/03/19 TIME: 01:58 Assessment/Plan VTE Prophylaxis Risk score (from Ns)>0 risk: 6 SCD applied (from [facility] [place]): No SCD contraindicated: other Pharmacological prophylaxis: other Pharm contraindication: other Lines/Catheters IV Catheter Type (from Nrsg): PICC Line Central line still needed: Yes Urinary Cath still in place: No Assessment/Plan Assessment/Plan 1. Polymicrobial infection of nonhealing ulcer of right heel with negative CT for osteo. - Continue antibiotic as per ID. - pain control per pain management - per podiatry 2. Cardiomyopathy. Continue Lasix, lisinopril, carvedilol, digoxin and amiodarone. 3. Diabetes. Continue Lantus and sliding scale insulin and Jardiance. 4. Gastric mass, possible yeast. The patient needs endoscopic ultrasound with FNA as an outpatient to confirm GIST tumor diagnosis. - Hem/Onc folllows Dr Mann spoke with Dr. Roberts, his office is obtaining authorization for the above procedures. For now, we will continue to manage his multiple medical issues including acute infection. Patient seen in collaboration with Dr Mann . Dw staff Result Diagram: 02/01/19 0548 02/01/19 0548 Results 24hrs Laboratory Tests Test 02/02/19 07:45 02/02/19 11:29 02/02/19 16:52 02/02/19 21:04 Bedside Glucose 115 179 143 143 Subjective 24 Hr Interval Summary Free Text/Dictation 02/01/2019 Entry afebrile c/o right foot pain- pain management follows no new events reported overnight dw staff Eyes: no complaints ENT: no complaints Respiratory: no complaints Cardiovascular: no complaints Gastrointestinal: no complaints, other (denies ny gi bleeding) Musculoskeletal: bone/joint pain Skin: other (right foot ulcer) Neurologic: no complaints Endocrine: no complaints Lymphatic: no complaints Psychological: no complaints Exam/Review of Systems Exam Vitals Vital Signs Date Temp Pulse Resp B/P (MAP) Pulse Ox O2 O2 Flow FiO2 Time Delivery Rate 02/03/19 98.6 79 18 90/51 (64) 97 00:00 02/02/19 Room Air 04:55 Intake and Output 02/02/19 02/02/19 02/03/19 1515:00 23:00 07:00 IntakeIntake Total 1350 ml 100 ml OutputOutput Total 600 ml BalanceBalance 750 ml 100 ml Constitutional: alert, well developed Head: atraumatic Eyes: nl lids Respiratory: clear to auscultation Cardiovascular: nl pulses, other (s1s2) Musculoskeletal: nl gait and stance, range of motion Extremities: edema, other (right foot non healing ulcer- DDI) 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: nl speech, other (alert/responsive) Lymph: nontender Results Results 24hrs Laboratory Tests Test 02/02/19 07:45 02/02/19 11:29 02/02/19 16:52 02/02/19 21:04 Bedside Glucose 115 179 143 143 Medications Medication Current Medications Amiodarone HCl (Cordarone) 200 mg DAILY PO Last administered on 02/02/19 07:51; Admin Dose 200 MG; Start 01/10/19 at 09:00 Digoxin (Digoxin) 0.125 mg DAILY@1300 PO Last administered on 02/02/19 11:38; Admin Dose 0.125 MG; Start 01/10/19 at 13:00 Gabapentin (Neurontin) 600 mg DAILY PO Last administered on 02/02/19 07:52; Admin Dose 600 MG; Start 01/10/19 at 09:00 Empaglifozin (Jardiance) 25 mg DAILY PO Last administered on 02/02/19 07:51; Admin Dose 25 MG; Start 01/10/19 at 09:00 Linagliptin (Tradjenta) 5 mg DAILY PO Last administered on 02/02/19 07:51; Admin Dose 5 MG; Start 01/10/19 at 09:00 Diagnostic Test (Pha) (Accu-Chek) 1 ea AC MEALS AND BEDTIME XX Last administered on 02/01/19 21:01; Admin Dose 1 EA; Start 01/09/19 at 21:00 Acetaminophen (Tylenol Tab) 650 mg Q4H PRN PO MILD PAIN(1-3)OR ELEVATED TEMP; Start 01/09/19 at 20:30 Ondansetron HCl (Zofran Inj) 4 mg Q6H PRN IV NAUSEA AND/OR VOMITING Last administered on 01/14/19 19:59; Admin Dose 4 MG; Start 01/09/19 at 20:30 Diagnostic Test (Pha) (Accu-Chek) 1 ea 02 XX Last administered on 01/29/19at 01:56; Admin Dose 1 EA; Start 01/10/19 at 02:00 Miscellaneous Information 1 ea NOTE XX ; Start 01/09/19 at 21:30 Glucose (Glutose) 15 gm Q15M PRN PO DECREASED GLUCOSE; Start 01/09/19 at 21:30 Glucose (Glutose) 22.5 gm Q15M PRN PO DECREASED GLUCOSE; Start 01/09/19 at 21:30 Dextrose (D50w Syringe) 25 ml Q15M PRN IV DECREASED GLUCOSE; Start 01/09/19 at 21:30 Dextrose (D50w Syringe) 50 ml Q15M PRN IV DECREASED GLUCOSE; Start 01/09/19 at 21:30 Glucagon (Glucagen) 1 mg Q15M PRN IM DECREASED GLUCOSE; Start 01/09/19 at 21:30 Glucose (Glutose) 15 gm Q15M PRN BUCCAL DECREASED GLUCOSE; Start 01/09/19 at 21:30 Insulin Glargine (Lantus) 18 units QHS SC Last administered on 02/02/19at 21:12; Admin Dose 18 UNITS; Start 01/09/19 at 22:30 Carvedilol (Coreg) 3.125 mg BID PO Last administered on 02/01/19 20:05; Admin Dose 3.125 MG; Start 01/10/19 at 21:00 Vancomycin HCl (Vanco Iv Per Pharmacy) VANCOMYCIN PER PHARMACY PER PROTOCOL XX ; Start 01/11/19 at 02:30 Lisinopril (Zestril) 2.5 mg DAILY PO Last administered on 01/30/19 08:28; Admin Dose 2.5 MG; Start 01/13/19 at 09:00 Senna (Senokot) 1 tab DAILY PRN PO CONSTIPATION Last administered on 01/28/19 21:36; Admin Dose 1 TAB; Start 01/12/19 at 18:30 Docusate Sodium (Colace) 100 mg BID PRN PO CONSTIPATION Last administered on 01/30/19 08:35; Admin Dose 100 MG; Start 01/12/19 at 18:30 Neomycin/ Polymyxin/ Bacitracin (Neosporin Topical Oint) 1 applic DAILY TOP Last administered on 02/02/19at 09:00; Admin Dose 1 APPLIC; Start 01/12/19 at 18:30 Cyanocobalamin (Vitamin B12 Inj) 1,000 mcg DAILY IM Last administered on 02/02/19 07:50; Admin Dose 1,000 MCG; Start 01/16/19 at 09:00 Pantoprazole (Protonix Tab) 40 mg DAILY@06 PO Last administered on 02/02/19 05:49; Admin Dose 40 MG; Start 01/17/19 at 06:00 Metronidazole 100 ml @ 100 mls/hr Q8 IVPB Last administered on 02/02/19 21:01; Admin Dose 100 MLS/HR; Start 01/16/19 at 22:00 Cefepime HCl 50 ml @ 100 mls/hr Q12 IVPB Last administered on 02/02/19 22:30; Admin Dose 100 MLS/HR; Start 01/17/19 at 21:00 Oxycodone HCl (Oxycontin) 10 mg BID PO Last administered on 02/02/19 21:09; Admin Dose 10 MG; Start 01/18/19 at 15:00 Furosemide (Lasix) 20 mg BID DIURETICS IV Last administered on 02/02/19 16:51; Admin Dose 20 MG; Start 01/21/19 at 18:30 Vancomycin HCl 1.25 gm/Sodium Chloride 250 ml @ 83.333 mls/ hr Q12H IVPB Last administered on 02/03/19 01:05; Admin Dose 83.333 MLS/HR; Start 01/25/19 at 01:00 Insulin Aspart (Novolog Insulin Pen) NOVOLOG *MODERATE* ALGORITHM WITH MEALS BEDTIME SC Last administered on 02/02/19 16:54; Admin Dose 2 UNIT; Start 01/26/19 at 21:00 IV Flush (NS 10 ml) 10 ml PRN PRN IV IV PROTOCOL; Start 01/29/19 at 17:00 Hydromorphone HCl (Dilaudid) 1 mg Q4H PRN IV SEVERE PAIN LEVEL 7-10 Last administered on 02/03/19 01:05; Admin Dose 1 MG; Start 02/02/19 at 15:30 MARTINE PUENTES February 03, 2019 01:59
[2019-02-03] MEDS: metroNIDAZOLE 500 MG/NS (PMX) 100 ML IVPB SCH ×3 (05:04→22:01)
[2019-02-03] MEDS: FUROSEMIDE 20 MG INJ IV SCH ×2 (05:05→16:55)
[2019-02-03] MEDS: PANTOPRAZOLE (EC) 40 MG TAB PO SCH (06:10)
[2019-02-03] MEDS: AMIODARONE 200 MG TAB PO SCH (07:44)
[2019-02-03] MEDS: LISINOPRIL 5 MG TAB PO SCH (07:44)
[2019-02-03] MEDS: CEFEPIME 2GM/50 ML (PMX) 50 ML IVPB SCH ×2 (07:45→21:06)
[2019-02-03] MEDS: EMPAGLIFLOZIN 10 MG TABLET PO SCH (07:45)
[2019-02-03] MEDS: GABAPENTIN 300 MG CAP PO SCH (07:45)
[2019-02-03] MEDS: oxyCODONE (CR) 10 MG TAB [oxyCONTIN] PO SCH ×2 (07:46→21:03)
[2019-02-03] MEDS: CYANOCOBALAMIN 1000 MCG INJ IM SCH (07:46)
[2019-02-03] MEDS: INSULIN ASPART [NOVOLOG] 3 ML PEN SC SCH ×4 (07:47→21:00)
[2019-02-03] MEDS: NEOMYC/POLYMYX/BACIT 30 GM OINT TOP SCH (07:47)
[2019-02-03] MEDS: LINAGLIPTIN 5 MG TABLET PO SCH (07:47)
[2019-02-03] MEDS: DIGOXIN 0.125 MG TAB PO SCH (13:07)
--- NOTE | 2019-02-03 15:23 | CONS ---
Assessment/Plan Assessment/Plan Hospital Course (Demo Recall) 63-year-old gentleman with history of coronary artery disease, status post CABG, also status post AICD placement, hypertension, diabetes, peripheral vascular disease, status post aortogram and right lower extremity runoff and percutaneous angioplasty of the posterior tibial artery and anterior tibial artery in 10/2018. Patient has a worsening RLE heel wound and thus admitted for sepsis. #Gastric mass -pt to have EUS and FNA ans an out patient. 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 Coli, Proteus, and Enterococcus -h/o 6 weeks of IV vancomycin and ceftriaxone in 2018 -need bypass surgery in future # Anemia-normocytic -Hg currently stable > 9 -likely 2/2 GI bleed -continue to hold all blood thinners -CT A/P does not reveal evidence of bleed -f/u endoscopy. pt was found with a T3.5 cm mass/filling defect arising along the lesser curvature of the stomach - consistent with GIST tumor Consultation Date/Type/Reason Admit Date/Time January 09, 2019 at 18:17 Initial Consult Date 01/16/19 Type of Consult oncology Reason for Consultation gastric tumor Requesting Provider: KRISTIN PRYOR MD Date/Time of Note DATE: 02/03/19 TIME: 15:19 Exam/Review of Systems Exam Vitals Vital Signs Date Temp Pulse Resp B/P (MAP) Pulse Ox O2 O2 Flow FiO2 Time Delivery Rate 02/03/19 98.8 68 18 99/56 (70) 96 15:11 02/02/19 Room Air 04:55 Intake and Output 02/02/19 02/02/19 02/03/19 1515:00 23:00 07:00 IntakeIntake Total 1350 ml 450 ml OutputOutput Total 600 ml 1000 ml BalanceBalance 750 ml -550 ml Constitutional: alert, oriented Psych: no complaints Head: normocephalic Eyes: nl conjunctiva ENMT: nl external ears & nose Neck: supple Respiratory: clear to auscultation Cardiovascular: regular rate and rhythm Gastrointestinal: soft Musculoskeletal: nl extremities to inspection Extremities: normal pulses Results Result Diagram: 02/01/19 0548 02/01/19 0548 Results 24hrs Laboratory Tests Test 02/02/19 16:52 02/02/19 21:04 02/03/19 07:46 02/03/19 11:50 Bedside Glucose 143 143 113 142 Medications Medication Current Medications Amiodarone HCl (Cordarone) 200 mg DAILY PO Last administered on 02/03/19 07:44; Admin Dose 200 MG; Start 01/10/19 at 09:00 Digoxin (Digoxin) 0.125 mg DAILY@1300 PO Last administered on 02/03/19 13:07; Admin Dose 0.125 MG; Start 01/10/19 at 13:00 Gabapentin (Neurontin) 600 mg DAILY PO Last administered on 02/03/19 07:45; Admin Dose 600 MG; Start 01/10/19 at 09:00 Empaglifozin (Jardiance) 25 mg DAILY PO Last administered on 02/03/19 07:45; Admin Dose 25 MG; Start 01/10/19 at 09:00 Linagliptin (Tradjenta) 5 mg DAILY PO Last administered on 02/03/19 07:47; Admin Dose 5 MG; Start 01/10/19 at 09:00 Diagnostic Test (Pha) (Accu-Chek) 1 ea AC MEALS AND BEDTIME XX Last administered on 02/01/19 21:01; Admin Dose 1 EA; Start 01/09/19 at 21:00 Acetaminophen (Tylenol Tab) 650 mg Q4H PRN PO MILD PAIN(1-3)OR ELEVATED TEMP; Start 01/09/19 at 20:30 Ondansetron HCl (Zofran Inj) 4 mg Q6H PRN IV NAUSEA AND/OR VOMITING Last administered on 01/14/19 19:59; Admin Dose 4 MG; Start 01/09/19 at 20:30 Diagnostic Test (Pha) (Accu-Chek) 1 ea 02 XX Last administered on 01/29/19 01:56; Admin Dose 1 EA; Start 01/10/19 at 02:00 Miscellaneous Information 1 ea NOTE XX ; Start 01/09/19 at 21:30 Glucose (Glutose) 15 gm Q15M PRN PO DECREASED GLUCOSE; Start 01/09/19 at 21:30 Glucose (Glutose) 22.5 gm Q15M PRN PO DECREASED GLUCOSE; Start 01/09/19 at 21:30 Dextrose (D50w Syringe) 25 ml Q15M PRN IV DECREASED GLUCOSE; Start 01/09/19 at 21:30 Dextrose (D50w Syringe) 50 ml Q15M PRN IV DECREASED GLUCOSE; Start 01/09/19 at 21:30 Glucagon (Glucagen) 1 mg Q15M PRN IM DECREASED GLUCOSE; Start 01/09/19 at 21:30 Glucose (Glutose) 15 gm Q15M PRN BUCCAL DECREASED GLUCOSE; Start 01/09/19 at 21:30 Insulin Glargine (Lantus) 18 units QHS SC Last administered on 02/02/19 21:12; Admin Dose 18 UNITS; Start 01/09/19 at 22:30 Carvedilol (Coreg) 3.125 mg BID PO Last administered on 02/01/19 20:05; Admin Dose 3.125 MG; Start 01/10/19 at 21:00 Vancomycin HCl (Vanco Iv Per Pharmacy) VANCOMYCIN PER PHARMACY PER PROTOCOL XX ; Start 01/11/19 at 02:30 Lisinopril (Zestril) 2.5 mg DAILY PO Last administered on 01/30/19 08:28; Admin Dose 2.5 MG; Start 01/13/19 at 09:00 Senna (Senokot) 1 tab DAILY PRN PO CONSTIPATION Last administered on 01/28/19 21:36; Admin Dose 1 TAB; Start 01/12/19 at 18:30 Docusate Sodium (Colace) 100 mg BID PRN PO CONSTIPATION Last administered on 01/30/19 08:35; Admin Dose 100 MG; Start 01/12/19 at 18:30 Neomycin/ Polymyxin/ Bacitracin (Neosporin Topical Oint) 1 applic DAILY TOP Last administered on 02/03/19 07:47; Admin Dose 1 APPLIC; Start 01/12/19 at 18:30 Cyanocobalamin (Vitamin B12 Inj) 1,000 mcg DAILY IM Last administered on 02/03/19 07:46; Admin Dose 1,000 MCG; Start 01/16/19 at 09:00 Pantoprazole (Protonix Tab) 40 mg DAILY@06 PO Last administered on 02/03/19 06:10; Admin Dose 40 MG; Start 01/17/19 at 06:00 Metronidazole 100 ml @ 100 mls/hr Q8 IVPB Last administered on 02/03/19 13:09; Admin Dose 100 MLS/HR; Start 01/16/19 at 22:00 Cefepime HCl 50 ml @ 100 mls/hr Q12 IVPB Last administered on 02/03/19 07:45; Admin Dose 100 MLS/HR; Start 01/17/19 at 21:00 Oxycodone HCl (Oxycontin) 10 mg BID PO Last administered on 02/03/19 07:46; Admin Dose 10 MG; Start 01/18/19 at 15:00 Furosemide (Lasix) 20 mg BID DIURETICS IV Last administered on 02/03/19 05:05; Admin Dose 20 MG; Start 01/21/19 at 18:30 Vancomycin HCl 1.25 gm/Sodium Chloride 250 ml @ 83.333 mls/ hr Q12H IVPB Last administered on 02/03/19 13:07; Admin Dose 83.333 MLS/HR; Start 01/25/19 at 01:00 Insulin Aspart (Novolog Insulin Pen) NOVOLOG *MODERATE* ALGORITHM WITH MEALS BEDTIME SC Last administered on 02/03/19 11:54; Admin Dose 2 UNIT; Start 01/26/19 at 21:00 IV Flush (NS 10 ml) 10 ml PRN PRN IV IV PROTOCOL; Start 01/29/19 at 17:00 Hydromorphone HCl (Dilaudid) 1 mg Q4H PRN IV SEVERE PAIN LEVEL 7-10 Last administered on 02/03/19 13:07; Admin Dose 1 MG; Start 02/02/19 at 15:30 TJ QUINTERO M.D. February 03, 2019 15:23
[2019-02-03] MEDS: DOCUSATE SODIUM 100 MG CAP PO PRN (16:55)
--- NOTE | 2019-02-03 18:02 | CONS ---
Assessment/Plan Assessment/Plan Hospital Course (Demo Recall) - polymicrobial infection of non-healing ulcer of R heel. CT on 01/10/2019 did not show evidence of OM. ESR 26 on 01/09/2019 and 37 on 01/12/2019; superficial wound cx Pseudomonas, E. Coli, Enterococcus (isolated from broth only), scant Proteus, and scant CoNS - s/p Debridement of the right calcaneal ulceration 01/13/2019; intraop cx grew E. Coli, Proteus, and Enterococcus - chronic wound of R heel, in the past the wound culture grew E. coli - h/o OM of R foot, h/o 6 weeks of IV vancomycin and ceftriaxone in 2018. 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 and needs EUS with FNA to confirm the diagnosis - trauma to R knee - anemia requiring PRBC - PAF - CAD s/p CABG - HTN - CM with EF 25% - h/o AICD placement - PVD - h/o aortogram, RLE runoff and percutaneous angioplasty of the posterior tibial artery and the anterior tibial artery in 10/2018 - DM - Hgb A1c 7.6% - HLD associated with DM recommendations: - we recommend 6 weeks of Vancomycin IV (01/11/2019-), Cefepime IV (restart 01/17/2019-), and metronidazole IV (01/16/2019-) through 02/22/19 - If Pt goes home, IV metronidazole may be replaced with PO metronidazole - please check weekly CBC BMP and ESR while Pt's on IV antibiotics management d/w Pt and his RN Evy Consultation Date/Type/Reason Admit Date/Time January 09, 2019 at 18:17 Initial Consult Date 01/10/19 Type of Consult ID Requesting Provider: KRISTIN PRYOR MD Date/Time of Note DATE: 02/03/19 TIME: 17:59 24 HR Interval Summary Constitutional: no complaints Detailed Summary Eyes: no complaints ENT: no complaints Respiratory: no complaints Cardiovascular: no complaints Gastrointestinal: no complaints Genitourinary: no complaints Musculoskeletal: bone/joint pain (LLE), restricted range of motion Skin: no complaints, skin lesions Neurologic: other (+sciatica extending to LLE) Lymphatic: no complaints Exam/Review of Systems Exam Vitals Vital Signs Date Temp Pulse Resp B/P (MAP) Pulse Ox O2 O2 Flow FiO2 Time Delivery Rate 02/03/19 71 16:01 02/03/19 98.8 18 99/56 (70) 96 15:11 02/02/19 Room Air 04:55 Intake and Output 02/02/19 02/02/19 02/03/19 1515:00 23:00 07:00 IntakeIntake Total 1350 ml 450 ml OutputOutput Total 600 ml 1000 ml BalanceBalance 750 ml -550 ml Constitutional: alert, oriented, well developed Psych: no complaints, nl mood/affect Head: normocephalic, atraumatic Eyes: nl conjunctiva, EOMI, nl lids, nl sclera ENMT: nl external ears & nose, nl nasal mucosa & septum, mucosa pink and moist Neck: supple Respiratory: clear to auscultation, normal air movement Cardiovascular: regular rate and rhythm, nl pulses Gastrointestinal: soft Musculoskeletal: other (R heel has ulcer that is still deep but smaller than before) Extremities: No edema 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: [employer] II-XII intact, nl mental status, nl speech, nl strength Skin: rash or lesions (see MS exam section) Results Result Diagram: 02/01/1948 02/01/1948 Results 24hrs Laboratory Tests Test 02/02/19 21:04 02/03/19 07:46 02/03/19 11:50 02/03/19 16:56 Bedside Glucose 143 113 142 126 Medications Medication Current Medications Amiodarone HCl (Cordarone) 200 mg DAILY PO Last administered on 02/03/19 07:44; Admin Dose 200 MG; Start 01/10/19 at 09:00 Digoxin (Digoxin) 0.125 mg DAILY@1300 PO Last administered on 02/03/19at 13:07; Admin Dose 0.125 MG; Start 01/10/19 at 13:00 Gabapentin (Neurontin) 600 mg DAILY PO Last administered on 02/03/19 07:45; Admin Dose 600 MG; Start 01/10/19 at 09:00 Empaglifozin (Jardiance) 25 mg DAILY PO Last administered on 02/03/19 07:45; Admin Dose 25 MG; Start 01/10/19 at 09:00 Linagliptin (Tradjenta) 5 mg DAILY PO Last administered on 02/03/19 07:47; Admin Dose 5 MG; Start 01/10/19 at 09:00 Diagnostic Test (Pha) (Accu-Chek) 1 ea AC MEALS AND BEDTIME XX Last administered on 02/01/19at 21:01; Admin Dose 1 EA; Start 01/09/19 at 21:00 Acetaminophen (Tylenol Tab) 650 mg Q4H PRN PO MILD PAIN(1-3)OR ELEVATED TEMP; Start 01/09/19 at 20:30 Ondansetron HCl (Zofran Inj) 4 mg Q6H PRN IV NAUSEA AND/OR VOMITING Last a dministered on 01/14/19at 19:59; Admin Dose 4 MG; Start 01/09/19 at 20:30 Diagnostic Test (Pha) (Accu-Chek) 1 ea 02 XX Last administered on 01/29/19at 01:56; Admin Dose 1 EA; Start 01/10/19 at 02:00 Miscellaneous Information 1 ea NOTE XX ; Start 01/09/19 at 21:30 Glucose (Glutose) 15 gm Q15M PRN PO DECREASED GLUCOSE; Start 01/09/19 at 21:30 Glucose (Glutose) 22.5 gm Q15M PRN PO DECREASED GLUCOSE; Start 01/09/19 at 21:30 Dextrose (D50w Syringe) 25 ml Q15M PRN IV DECREASED GLUCOSE; Start 01/09/19 at 21:30 Dextrose (D50w Syringe) 50 ml Q15M PRN IV DECREASED GLUCOSE; Start 01/09/19 at 21:30 Glucagon (Glucagen) 1 mg Q15M PRN IM DECREASED GLUCOSE; Start 01/09/19 at 21:30 Glucose (Glutose) 15 gm Q15M PRN BUCCAL DECREASED GLUCOSE; Start 01/09/19 at 21:30 Insulin Glargine (Lantus) 18 units QHS SC Last administered on 02/02/19at 21:12; Admin Dose 18 UNITS; Start 01/09/19 at 22:30 Carvedilol (Coreg) 3.125 mg BID PO Last administered on 02/01/19at 20:05; Admin Dose 3.125 MG; Start 01/10/19 at 21:00 Vancomycin HCl (Vanco Iv Per Pharmacy) VANCOMYCIN PER PHARMACY PER PROTOCOL XX ; Start 01/11/19 at 02:30 Lisinopril (Zestril) 2.5 mg DAILY PO Last administered on 01/30/19 08:28; Admin Dose 2.5 MG; Start 01/13/19 at 09:00 Senna (Senokot) 1 tab DAILY PRN PO CONSTIPATION Last administered on 01/28/19 21:36; Admin Dose 1 TAB; Start 01/12/19 at 18:30 Docusate Sodium (Colace) 100 mg BID PRN PO CONSTIPATION Last administered on 02/03/19 16:55; Admin Dose 100 MG; Start 01/12/19 at 18:30 Neomycin/ Polymyxin/ Bacitracin (Neosporin Topical Oint) 1 applic DAILY TOP Last administered on 02/03/19 07:47; Admin Dose 1 APPLIC; Start 01/12/19 at 18:30 Cyanocobalamin (Vitamin B12 Inj) 1,000 mcg DAILY IM Last administered on 02/03/19 07:46; Admin Dose 1,000 MCG; Start 01/16/19 at 09:00 Pantoprazole (Protonix Tab) 40 mg DAILY@06 PO Last administered on 02/03/19 06:10; Admin Dose 40 MG; Start 01/17/19 at 06:00 Metronidazole 100 ml @ 100 mls/hr Q8 IVPB Last administered on 02/03/19 13:09; Admin Dose 100 MLS/HR; Start 01/16/19 at 22:00 Cefepime HCl 50 ml @ 100 mls/hr Q12 IVPB Last administered on 02/03/19 07:45; Admin Dose 100 MLS/HR; Start 01/17/19 at 21:00 Oxycodone HCl (Oxycontin) 10 mg BID PO Last administered on 02/03/19 07:46; Admin Dose 10 MG; Start 01/18/19 at 15:00 Furosemide (Lasix) 20 mg BID DIURETICS IV Last administered on 02/03/19 16:55; Admin Dose 20 MG; Start 01/21/19 at 18:30 Vancomycin HCl 1.25 gm/Sodium Chloride 250 ml @ 83.333 mls/ hr Q12H IVPB Last administered on 02/03/19 13:07; Admin Dose 83.333 MLS/HR; Start 01/25/19 at 01:00 Insulin Aspart (Novolog Insulin Pen) NOVOLOG *MODERATE* ALGORITHM WITH MEALS BEDTIME SC Last administered on 02/03/19at 11:54; Admin Dose 2 UNIT; Start 01/26/19 at 21:00 IV Flush (NS 10 ml) 10 ml PRN PRN IV IV PROTOCOL; Start 01/29/19 at 17:00 Hydromorphone HCl (Dilaudid) 1 mg Q4H PRN IV SEVERE PAIN LEVEL 7-10 Last administered on 02/03/19at 16:55; Admin Dose 1 MG; Start 02/02/19 at 15:30 CARMITA WATTS M.D. February 03, 2019 18:02
--- NOTE | 2019-02-03 19:13 | PN ---
Date/Time of Note Date/Time of Note DATE: 02/03/19 TIME: 19:11 Assessment/Plan VTE Prophylaxis Risk score (from Ns)>0 risk: 4 SCD applied (from [facility] [place]): No SCD contraindicated: other Pharmacological prophylaxis: NA/contraindicated Pharm contraindication: anticoag not tolerated Lines/Catheters IV Catheter Type (from [facility]): PICC Line Central line still needed: Yes Urinary Cath still in place: No Assessment/Plan Hospital Course No acute events overnight, stable vital signs. Patient is pending long-term facility placement for IV antibiotics and wound care. 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 EUS and FNA as an outpatient to confirm GIST tumor diagnosis. Continue PPI. -New onset of anemia and hypotension requiring blood transfusion on 01/15/2019, stool for OB is negative. -Right heel necrotic wound. Dr. Mata is following in podiatry consultation. Status post debridement. Continue antibiotics per ID. Dr. Urbano is following in infection disease consultation. Will require total of 6 weeks of Vancomycin IV, Cefepime IV, and Flagyl IV through 02/22/19. -Chronic peripheral vascular disease, history of angioplasty x2. Dr. Sheppard is following in vascular surgery consultation. Plan for a right pop DP bypass as an outpatient. -Coronary artery disease, status post coronary artery bypass graft. -Cardiomyopathy with ejection fraction of 25%. Continue Coreg. Dr. Foster is following in cardiology consultation. -Status post AICD. -Hx of Hypertension. -Diabetes hemoglobin A1c 7.6. Continue Lantus and NovoLog. -Right knee contusion and abrasion status post fall. Status post evaluation by Dr. Zelaya and orthopedic surgery. No signs of fracture or dystrophic dislocation. -Chronic low back pain with significant spondylolisthesis grade II at the level of L5 to S1. Further recommendations based on clinical course. Plan of care discussed with Dr. Mann. Result Diagram: 02/01/19 0548 02/01/1948 Results 24hrs Laboratory Tests Test 02/02/19 21:04 02/03/19 07:46 02/03/19 11:50 02/03/19 16:56 Bedside Glucose 143 113 142 126 Exam/Review of Systems Exam Vitals Vital Signs Date Temp Pulse Resp B/P (MAP) Pulse Ox O2 O2 Flow FiO2 Time Delivery Rate 02/03/19 71 16:01 02/03/19 98.8 18 99/56 (70) 96 15:11 02/02/19 Room Air 04:55 Intake and Output 02/02/19 02/02/19 02/03/19 1515:00 23:00 07:00 IntakeIntake Total 1350 ml 450 ml OutputOutput Total 600 ml 1000 ml BalanceBalance 750 ml -550 ml Exam Constitutional: alert, oriented Respiratory: clear to auscultation Cardiovascular: regular rhythm and rate, AICD Gastrointestinal: soft, non-tender Extremities: normal pulses, other (Right heel wound) Right chest triple lumen catheter Results Results 24hrs Laboratory Tests Test 02/02/19 21:04 02/03/19 07:46 02/03/19 11:50 02/03/19 16:56 Bedside Glucose 143 113 142 126 Medications Medication Current Medications Amiodarone HCl (Cordarone) 200 mg DAILY PO Last administered on 02/03/19 07:44; Admin Dose 200 MG; Start 01/10/19 at 09:00 Digoxin (Digoxin) 0.125 mg DAILY@1300 PO Last administered on 02/03/19 13:07; Admin Dose 0.125 MG; Start 01/10/19 at 13:00 Gabapentin (Neurontin) 600 mg DAILY PO Last administered on 02/03/19 07:45; Admin Dose 600 MG; Start 01/10/19 at 09:00 Empaglifozin (Jardiance) 25 mg DAILY PO Last administered on 02/03/19 07:45; Admin Dose 25 MG; Start 01/10/19 at 09:00 Linagliptin (Tradjenta) 5 mg DAILY PO Last administered on 02/03/19 07:47; Admin Dose 5 MG; Start 01/10/19 at 09:00 Diagnostic Test (Pha) (Accu-Chek) 1 ea AC MEALS AND BEDTIME XX Last administered on 02/01/19 21:01; Admin Dose 1 EA; Start 01/09/19 at 21:00 Acetaminophen (Tylenol Tab) 650 mg Q4H PRN PO MILD PAIN(1-3)OR ELEVATED TEMP; Start 01/09/19 at 20:30 Ondansetron HCl (Zofran Inj) 4 mg Q6H PRN IV NAUSEA AND/OR VOMITING Last administered on 01/14/19 19:59; Admin Dose 4 MG; Start 01/09/19 at 20:30 Diagnostic Test (Pha) (Accu-Chek) 1 ea 02 XX Last administered on 01/29/19at 01:56; Admin Dose 1 EA; Start 01/10/19 at 02:00 Miscellaneous Information 1 ea NOTE XX ; Start 01/09/19 at 21:30 Glucose (Glutose) 15 gm Q15M PRN PO DECREASED GLUCOSE; Start 01/09/19 at 21:30 Glucose (Glutose) 22.5 gm Q15M PRN PO DECREASED GLUCOSE; Start 01/09/19 at 21:30 Dextrose (D50w Syringe) 25 ml Q15M PRN IV DECREASED GLUCOSE; Start 01/09/19 at 21:30 Dextrose (D50w Syringe) 50 ml Q15M PRN IV DECREASED GLUCOSE; Start 01/09/19 at 21:30 Glucagon (Glucagen) 1 mg Q15M PRN IM DECREASED GLUCOSE; Start 01/09/19 at 21:30 Glucose (Glutose) 15 gm Q15M PRN BUCCAL DECREASED GLUCOSE; Start 01/09/19 at 21:30 Insulin Glargine (Lantus) 18 units QHS SC Last administered on 02/02/19 21:12; Admin Dose 18 UNITS; Start 01/09/19 at 22:30 Carvedilol (Coreg) 3.125 mg BID PO Last administered on 02/01/19at 20:05; Admin Dose 3.125 MG; Start 01/10/19 at 21:00 Vancomycin HCl (Vanco Iv Per Pharmacy) VANCOMYCIN PER PHARMACY PER PROTOCOL XX ; Start 01/11/19 at 02:30 Lisinopril (Zestril) 2.5 mg DAILY PO Last administered on 01/30/19 08:28; Admin Dose 2.5 MG; Start 01/13/19 at 09:00 Senna (Senokot) 1 tab DAILY PRN PO CONSTIPATION Last administered on 01/28/19at 21:36; Admin Dose 1 TAB; Start 01/12/19 at 18:30 Docusate Sodium (Colace) 100 mg BID PRN PO CONSTIPATION Last administered on 02/03/19at 16:55; Admin Dose 100 MG; Start 01/12/19 at 18:30 Neomycin/ Polymyxin/ Bacitracin (Neosporin Topical Oint) 1 applic DAILY TOP Last administered on 02/03/19 07:47; Admin Dose 1 APPLIC; Start 01/12/19 at 18:30 Cyanocobalamin (Vitamin B12 Inj) 1,000 mcg DAILY IM Last administered on 02/03/19 07:46; Admin Dose 1,000 MCG; Start 01/16/19 at 09:00 Pantoprazole (Protonix Tab) 40 mg DAILY@06 PO Last administered on 02/03/19 06:10; Admin Dose 40 MG; Start 01/17/19 at 06:00 Metronidazole 100 ml @ 100 mls/hr Q8 IVPB Last administered on 02/03/19 13:09; Admin Dose 100 MLS/HR; Start 01/16/19 at 22:00 Cefepime HCl 50 ml @ 100 mls/hr Q12 IVPB Last administered on 02/03/19 07:45; Admin Dose 100 MLS/HR; Start 01/17/19 at 21:00 Oxycodone HCl (Oxycontin) 10 mg BID PO Last administered on 02/03/19 07:46; Admin Dose 10 MG; Start 01/18/19 at 15:00 Furosemide (Lasix) 20 mg BID DIURETICS IV Last administered on 02/03/19 16:55; Admin Dose 20 MG; Start 01/21/19 at 18:30 Vancomycin HCl 1.25 gm/Sodium Chloride 250 ml @ 83.333 mls/ hr Q12H IVPB Last administered on 02/03/19 13:07; Admin Dose 83.333 MLS/HR; Start 01/25/19 at 01:00 Insulin Aspart (Novolog Insulin Pen) NOVOLOG *MODERATE* ALGORITHM WITH MEALS BEDTIME SC Last administered on 02/03/19 11:54; Admin Dose 2 UNIT; Start 01/26/19 at 21:00 IV Flush (NS 10 ml) 10 ml PRN PRN IV IV PROTOCOL; Start 01/29/19 at 17:00 Hydromorphone HCl (Dilaudid) 1 mg Q4H PRN IV SEVERE PAIN LEVEL 7-10 Last administered on 02/03/19 16:55; Admin Dose 1 MG; Start 02/02/19 at 15:30 RAMESH SOLORZANO February 03, 2019 19:13
[2019-02-03] MEDS: INSULIN GLARGINE [LANTus] (100 UNITS/ML) SYG SC SCH (21:16)
[2019-02-04] VITALS (11 sets, daily range): BP systolic 90–129; BP diastolic 50–76; PULSE 66–91; RESP 18–20
[2019-02-04] MEDS: HYDROmorphONE 1 MG/ML SYG IV PRN ×5 (01:01→21:55)
[2019-02-04] MEDS: ACCU-CHEK XX SCH ×5 (01:01→21:01)
[2019-02-04] MEDS: VANCOMYCIN HCL 1.25 GM in SOD CHLORIDE 0.9% 250 ML IVPB SCH ×2 (01:01→12:54)
[2019-02-04] MEDS: PANTOPRAZOLE (EC) 40 MG TAB PO SCH (05:14)
[2019-02-04] MEDS: metroNIDAZOLE 500 MG/NS (PMX) 100 ML IVPB SCH ×3 (05:15→22:05)
[2019-02-04] MEDS: FUROSEMIDE 20 MG INJ IV SCH ×2 (05:15→17:49)
[2019-02-04] MEDS: INSULIN ASPART [NOVOLOG] 3 ML PEN SC SCH ×4 (07:55→21:00)
[2019-02-04] MEDS: GABAPENTIN 300 MG CAP PO SCH (08:54)
[2019-02-04] MEDS: CYANOCOBALAMIN 1000 MCG INJ IM SCH (08:54)
[2019-02-04] MEDS: LISINOPRIL 5 MG TAB PO SCH (08:55)
[2019-02-04] MEDS: EMPAGLIFLOZIN 10 MG TABLET PO SCH (08:55)
[2019-02-04] MEDS: AMIODARONE 200 MG TAB PO SCH (08:55)
[2019-02-04] MEDS: NEOMYC/POLYMYX/BACIT 30 GM OINT TOP SCH (08:56)
[2019-02-04] MEDS: LINAGLIPTIN 5 MG TABLET PO SCH (08:56)
[2019-02-04] MEDS: oxyCODONE (CR) 10 MG TAB [oxyCONTIN] PO SCH ×2 (09:08→20:45)
[2019-02-04] MEDS: CEFEPIME 2GM/50 ML (PMX) 50 ML IVPB SCH ×2 (09:09→20:43)
[2019-02-04] MEDS: DIGOXIN 0.125 MG TAB PO SCH (12:54)
--- NOTE | 2019-02-04 13:37 | CONS ---
Assessment/Plan Assessment/Plan Hospital Course (Demo Recall) 63-year-old gentleman with history of coronary artery disease, status post CABG, also status post AICD placement, hypertension, diabetes, peripheral vascular disease, status post aortogram and right lower extremity runoff and percutaneous angioplasty of the posterior tibial artery and anterior tibial artery in 10/2018. Patient has a worsening RLE heel wound and thus admitted for sepsis. #Gastric mass -pt to have EUS and FNA ans an out patient. 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 Coli, Proteus, and Enterococcus -h/o 6 weeks of IV vancomycin and ceftriaxone in 2018 - Plan for a right pop DP bypass as an outpatient. # Anemia-normocytic -Hg currently stable > 9 -likely 2/2 GI bleed -continue to hold all blood thinners -CT A/P does not reveal evidence of bleed -f/u endoscopy. pt was found with a T3.5 cm mass/filling defect arising along the lesser curvature of the stomach - consistent with GIST tumor Consultation Date/Type/Reason Admit Date/Time January 09, 2019 at 18:17 Initial Consult Date 01/16/19 Type of Consult oncology Reason for Consultation GIST tumor Requesting Provider: KRISTIN PRYOR MD Date/Time of Note DATE: 02/04/19 TIME: 13:36 24 HR Interval Summary Free Text/Dictation no acute overnight events Exam/Review of Systems Exam Vitals Vital Signs Date Temp Pulse Resp B/P (MAP) Pulse Ox O2 O2 Flow FiO2 Time Delivery Rate 02/04/19 69 12:00 02/04/19 98.0 18 119/65 97 Room Air 11:15 (83) Intake and Output 02/03/19 02/03/19 02/04/19 1515:00 23:00 07:00 IntakeIntake Total 1250 ml 1450 ml OutputOutput Total 1000 ml 1400 ml BalanceBalance 250 ml 50 ml Constitutional: alert, oriented Psych: no complaints Head: normocephalic Eyes: nl conjunctiva ENMT: nl external ears & nose Neck: supple Respiratory: clear to auscultation Cardiovascular: regular rate and rhythm Gastrointestinal: soft Musculoskeletal: nl extremities to inspection Extremities: normal pulses Results Result Diagram: 02/01/19 0548 02/01/19 0548 Results 24hrs Laboratory Tests Test 02/03/19 16:56 02/03/19 21:02 02/04/19 07:50 02/04/19 12:12 Bedside Glucose 126 130 111 144 Medications Medication Current Medications Amiodarone HCl (Cordarone) 200 mg DAILY PO Last administered on 02/04/19 08:55; Admin Dose 200 MG; Start 01/10/19 at 09:00 Digoxin (Digoxin) 0.125 mg DAILY@1300 PO Last administered on 02/04/19 12:54; Admin Dose 0.125 MG; Start 01/10/19 at 13:00 Gabapentin (Neurontin) 600 mg DAILY PO Last administered on 02/04/19 08:54; Admin Dose 600 MG; Start 01/10/19 at 09:00 Empaglifozin (Jardiance) 25 mg DAILY PO Last administered on 02/04/19 08:55; Admin Dose 25 MG; Start 01/10/19 at 09:00 Linagliptin (Tradjenta) 5 mg DAILY PO Last administered on 02/04/19 08:56; Admin Dose 5 MG; Start 01/10/19 at 09:00 Diagnostic Test (Pha) (Accu-Chek) 1 ea AC MEALS AND BEDTIME XX Last administered on 02/04/19 12:13; Admin Dose 1 EA; Start 01/09/19 at 21:00 Acetaminophen (Tylenol Tab) 650 mg Q4H PRN PO MILD PAIN(1-3)OR ELEVATED TEMP; Start 01/09/19 at 20:30 Ondansetron HCl (Zofran Inj) 4 mg Q6H PRN IV NAUSEA AND/OR VOMITING Last administered on 01/14/19 19:59; Admin Dose 4 MG; Start 01/09/19 at 20:30 Diagnostic Test (Pha) (Accu-Chek) 1 ea 02 XX Last administered on 01/29/19 01:56; Admin Dose 1 EA; Start 01/10/19 at 02:00 Miscellaneous Information 1 ea NOTE XX ; Start 01/09/19 at 21:30 Glucose (Glutose) 15 gm Q15M PRN PO DECREASED GLUCOSE; Start 01/09/19 at 21:30 Glucose (Glutose) 22.5 gm Q15M PRN PO DECREASED GLUCOSE; Start 01/09/19 at 21:30 Dextrose (D50w Syringe) 25 ml Q15M PRN IV DECREASED GLUCOSE; Start 01/09/19 at 21:30 Dextrose (D50w Syringe) 50 ml Q15M PRN IV DECREASED GLUCOSE; Start 01/09/19 at 21:30 Glucagon (Glucagen) 1 mg Q15M PRN IM DECREASED GLUCOSE; Start 01/09/19 at 21:30 Glucose (Glutose) 15 gm Q15M PRN BUCCAL DECREASED GLUCOSE; Start 01/09/19 at 21:30 Insulin Glargine (Lantus) 18 units QHS SC Last administered on 02/03/19 21:16; Admin Dose 18 UNITS; Start 01/09/19 at 22:30 Carvedilol (Coreg) 3.125 mg BID PO Last administered on 02/01/19 20:05; Admin Dose 3.125 MG; Start 01/10/19 at 21:00 Vancomycin HCl (Vanco Iv Per Pharmacy) VANCOMYCIN PER PHARMACY PER PROTOCOL XX ; Start 01/11/19 at 02:30 Lisinopril (Zestril) 2.5 mg DAILY PO Last administered on 02/04/19 08:55; Admin Dose 2.5 MG; Start 01/13/19 at 09:00 Senna (Senokot) 1 tab DAILY PRN PO CONSTIPATION Last administered on 01/28/19 21:36; Admin Dose 1 TAB; Start 01/12/19 at 18:30 Docusate Sodium (Colace) 100 mg BID PRN PO CONSTIPATION Last administered on 02/03/19 16:55; Admin Dose 100 MG; Start 01/12/19 at 18:30 Neomycin/ Polymyxin/ Bacitracin (Neosporin Topical Oint) 1 applic DAILY TOP Last administered on 02/04/19 08:56; Admin Dose 1 APPLIC; Start 01/12/19 at 18:30 Cyanocobalamin (Vitamin B12 Inj) 1,000 mcg DAILY IM Last administered on 02/04/19 08:54; Admin Dose 1,000 MCG; Start 01/16/19 at 09:00 Pantoprazole (Protonix Tab) 40 mg DAILY@06 PO Last administered on 02/04/19 05:14; Admin Dose 40 MG; Start 01/17/19 at 06:00 Metronidazole 100 ml @ 100 mls/hr Q8 IVPB Last administered on 02/04/19 05:15; Admin Dose 100 MLS/HR; Start 01/16/19 at 22:00 Cefepime HCl 50 ml @ 100 mls/hr Q12 IVPB Last administered on 02/04/19 09:09; Admin Dose 100 MLS/HR; Start 01/17/19 at 21:00 Oxycodone HCl (Oxycontin) 10 mg BID PO Last administered on 02/04/19 09:08; Admin Dose 10 MG; Start 01/18/19 at 15:00 Furosemide (Lasix) 20 mg BID DIURETICS IV Last administered on 02/04/19 05:15; Admin Dose 20 MG; Start 01/21/19 at 18:30 Vancomycin HCl 1.25 gm/Sodium Chloride 250 ml @ 83.333 mls/ hr Q12H IVPB Last administered on 02/04/19 12:54; Admin Dose 83.333 MLS/HR; Start 01/25/19 at 01 :00 Insulin Aspart (Novolog Insulin Pen) NOVOLOG *MODERATE* ALGORITHM WITH MEALS BEDTIME SC Last administered on 02/04/19 12:29; Admin Dose 2 UNIT; Start 01/26/19 at 21:00 IV Flush (NS 10 ml) 10 ml PRN PRN IV IV PROTOCOL; Start 01/29/19 at 17:00 Hydromorphone HCl (Dilaudid) 1 mg Q4H PRN IV SEVERE PAIN LEVEL 7-10 Last administered on 02/04/19 11:08; Admin Dose 1 MG; Start 02/02/19 at 15:30 TJ QUINTERO M.D. February 04, 2019 13:37
--- NOTE | 2019-02-04 13:59 | PN ---
Date/Time of Note Date/Time of Note DATE: 02/04/19 TIME: 13:54 Assessment/Plan VTE Prophylaxis Risk score (from Ns)>0 risk: 5 SCD applied (from Ns): No SCD contraindicated: low risk/ambulating Pharmacological prophylaxis: NA/contraindicated Pharm contraindication: anticoag not tolerated Lines/Catheters IV C[facility]ter Type [facility]from [facility]): PICC Line Central line still needed: Yes Urinary Cath still in place: No Reason Cath still needed: urinary retention Assessment/Plan Hospital Course Patient remains hemodynamically stable, afebrile, DC planning. No detention facility is available per case management meeting today. Discussed case with Dr. Sheppard no plan for surgery this week patient is to follow-up with Dr. Rush as an outpatient. 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 EUS and FNA as an outpatient to confirm GIST tumor diagnosis. Continue PPI. -New onset of anemia and hypotension requiring blood transfusion on 01/15/2019, stool for OB is negative. -Right heel necrotic wound. Dr. Mata is following in podiatry consultation. Status post debridement. Continue antibiotics per ID. Dr. Urbano is following in infection disease consultation. Will require total of 6 weeks of Vancomycin IV, Cefepime IV, and Flagyl IV through 02/22/19. -Chronic peripheral vascular disease, history of angioplasty x2. Dr. Sheppard is following in vascular surgery consultation. Plan for a right pop DP bypass as an outpatient. -Coronary artery disease, status post coronary artery bypass graft. -Cardiomyopathy with ejection fraction of 25%. Continue Coreg. Dr. Foster is following in cardiology consultation. -Status post AICD. -Hx of Hypertension. -Diabetes hemoglobin A1c 7.6. Continue Lantus and NovoLog. -Right knee contusion and abrasion status post fall. Status post evaluation by Dr. Zelaya and orthopedic surgery. No signs of fracture or dystrophic dislocation. -Chronic low back pain with significant spondylolisthesis grade II at the level of L5 to S1. Further recommendations based on clinical course. Plan of care discussed with Dr. Mann. Result Diagram: 02/01/19 0548 02/01/19 0548 Results 24hrs Laboratory Tests Test 02/03/19 16:56 02/03/19 21:02 02/04/19 07:50 02/04/19 12:12 Bedside Glucose 126 130 111 144 Exam/Review of Systems Exam Vitals Vital Signs Date Temp Pulse Resp B/P (MAP) Pulse Ox O2 O2 Flow FiO2 Time Delivery Rate 02/04/19 69 12:00 02/04/19 98.0 18 119/65 97 Room Air 11:15 (83) Intake and Output 02/03/19 02/03/19 02/04/19 1515:00 23:00 07:00 IntakeIntake Total 1250 ml 1450 ml OutputOutput Total 1000 ml 1400 ml BalanceBalance 250 ml 50 ml Exam Constitutional: alert, oriented Respiratory: clear to auscultation Cardiovascular: regular rhythm and rate, AICD Gastrointestinal: soft, non-tender Extremities: normal pulses, other (Right heel wound) Right chest triple lumen catheter Results Results 24hrs Laboratory Tests Test 02/03/19 16:56 02/03/19 21:02 02/04/19 07:50 02/04/19 12:12 Bedside Glucose 126 130 111 144 Medications Medication Current Medications Amiodarone HCl (Cordarone) 200 mg DAILY PO Last administered on 02/04/19 08:55; Admin Dose 200 MG; Start 01/10/19 at 09:00 Digoxin (Digoxin) 0.125 mg DAILY@1300 PO Last administered on 02/04/19 12:54; Admin Dose 0.125 MG; Start 01/10/19 at 13:00 Gabapentin (Neurontin) 600 mg DAILY PO Last administered on 02/04/19 08:54; Admin Dose 600 MG; Start 01/10/19 at 09:00 Empaglifozin (Jardiance) 25 mg DAILY PO Last administered on 02/04/19 08:55; Admin Dose 25 MG; Start 01/10/19 at 09:00 Linagliptin (Tradjenta) 5 mg DAILY PO Last administered on 02/04/19 08:56; Admin Dose 5 MG; Start 01/10/19 at 09:00 Diagnostic Test (Pha) (Accu-Chek) 1 ea AC MEALS AND BEDTIME XX Last administered on 02/04/19 12:13; Admin Dose 1 EA; Start 01/09/19 at 21:00 Acetaminophen (Tylenol Tab) 650 mg Q4H PRN PO MILD PAIN(1-3)OR ELEVATED TEMP; Start 01/09/19 at 20:30 Ondansetron HCl (Zofran Inj) 4 mg Q6H PRN IV NAUSEA AND/OR VOMITING Last administered on 01/14/19at 19:59; Admin Dose 4 MG; Start 01/09/19 at 20:30 Diagnostic Test (Pha) (Accu-Chek) 1 ea 02 XX Last administered on 01/29/19at 01:56; Admin Dose 1 EA; Start 01/10/19 at 02:00 Miscellaneous Information 1 ea NOTE XX ; Start 01/09/19 at 21:30 Glucose (Glutose) 15 gm Q15M PRN PO DECREASED GLUCOSE; Start 01/09/19 at 21:30 Glucose (Glutose) 22.5 gm Q15M PRN PO DECREASED GLUCOSE; Start 01/09/19 at 21:30 Dextrose (D50w Syringe) 25 ml Q15M PRN IV DECREASED GLUCOSE; Start 01/09/19 at 21:30 Dextrose (D50w Syringe) 50 ml Q15M PRN IV DECREASED GLUCOSE; Start 01/09/19 at 21:30 Glucagon (Glucagen) 1 mg Q15M PRN IM DECREASED GLUCOSE; Start 01/09/19 at 21:30 Glucose (Glutose) 15 gm Q15M PRN BUCCAL DECREASED GLUCOSE; Start 01/09/19 at 21:30 Insulin Glargine (Lantus) 18 units QHS SC Last administered on 02/03/19at 21:16; Admin Dose 18 UNITS; Start 01/09/19 at 22:30 Carvedilol (Coreg) 3.125 mg BID PO Last administered on 02/01/19at 20:05; Admin Dose 3.125 MG; Start 01/10/19 at 21:00 Vancomycin HCl (Vanco Iv Per Pharmacy) VANCOMYCIN PER PHARMACY PER PROTOCOL XX ; Start 01/11/19 at 02:30 Lisinopril (Zestril) 2.5 mg DAILY PO Last administered on 02/04/19at 08:55; Admin Dose 2.5 MG; Start 01/13/19 at 09:00 Senna (Senokot) 1 tab DAILY PRN PO CONSTIPATION Last administered on 01/28/19at 21:36; Admin Dose 1 TAB; Start 01/12/19 at 18:30 Docusate Sodium (Colace) 100 mg BID PRN PO CONSTIPATION Last administered on 02/03/19 16:55; Admin Dose 100 MG; Start 01/12/19 at 18:30 Neomycin/ Polymyxin/ Bacitracin (Neosporin Topical Oint) 1 applic DAILY TOP Last administered on 02/04/19 08:56; Admin Dose 1 APPLIC; Start 01/12/19 at 18:30 Cyanocobalamin (Vitamin B12 Inj) 1,000 mcg DAILY IM Last administered on 02/04/19 08:54; Admin Dose 1,000 MCG; Start 01/16/19 at 09:00 Pantoprazole (Protonix Tab) 40 mg DAILY@06 PO Last administered on 02/04/19 05:14; Admin Dose 40 MG; Start 01/17/19 at 06:00 Metronidazole 100 ml @ 100 mls/hr Q8 IVPB Last administered on 02/04/19 05:15; Admin Dose 100 MLS/HR; Start 01/16/19 at 22:00 Cefepime HCl 50 ml @ 100 mls/hr Q12 IVPB Last administered on 02/04/19 09:09; Admin Dose 100 MLS/HR; Start 01/17/19 at 21:00 Oxycodone HCl (Oxycontin) 10 mg BID PO Last administered on 02/04/19 09:08; Admin Dose 10 MG; Start 01/18/19 at 15:00 Furosemide (Lasix) 20 mg BID DIURETICS IV Last administered on 02/04/19 05:15; Admin Dose 20 MG; Start 01/21/19 at 18:30 Vancomycin HCl 1.25 gm/Sodium Chloride 250 ml @ 83.333 mls/ hr Q12H IVPB Last administered on 02/04/19 12:54; Admin Dose 83.333 MLS/HR; Start 01/25/19 at 01:00 Insulin Aspart (Novolog Insulin Pen) NOVOLOG *MODERATE* ALGORITHM WITH MEALS BEDTIME SC Last administered on 02/04/19 12:29; Admin Dose 2 UNIT; Start 01/26/19 at 21:00 IV Flush (NS 10 ml) 10 ml PRN PRN IV IV PROTOCOL; Start 01/29/19 at 17:00 Hydromorphone HCl (Dilaudid) 1 mg Q4H PRN IV SEVERE PAIN LEVEL 7-10 Last administered on 5/29/19at 11:08; Admin Dose 1 MG; Start 02/02/19 at 15:30 RAMESH SOLORZANO February 04, 2019 13:59
--- NOTE | 2019-02-04 15:13 | CONS ---
Assessment/Plan Assessment/Plan Hospital Course (Demo Recall) - polymicrobial infection of non-healing ulcer of R heel. CT on 01/10/2019 did not show evidence of OM. ESR 26 on 01/09/2019 and 37 on 01/12/2019; superficial wound cx Pseudomonas, E. Coli, Enterococcus (isolated from broth only), scant Proteus, and scant CoNS - s/p Debridement of the right calcaneal ulceration 01/13/2019; intraop cx grew E. Coli, Proteus, and Enterococcus - chronic wound of R heel, in the past the wound culture grew E. coli - h/o OM of R foot, h/o 6 weeks of IV vancomycin and ceftriaxone in 2018. 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 and needs EUS with FNA to confirm the diagnosis - trauma to R knee - anemia requiring PRBC - PAF - CAD s/p CABG - HTN - CM with EF 25% - h/o AICD placement - PVD - h/o aortogram, RLE runoff and percutaneous angioplasty of the posterior tibial artery and the anterior tibial artery in 10/2018 - DM - Hgb A1c 7.6% - HLD associated with DM recommendations: - ordered: ESR in AM (ESR 26 on 01/09/2019 and 37 on 01/12/2019) - we recommend 6 weeks of Vancomycin IV (01/11/2019-), Cefepime IV (restart 01/17/2019-), and metronidazole IV (01/16/2019-) through 02/22/19 - If Pt goes home, IV metronidazole may be replaced with PO metronidazole - please check weekly CBC BMP and ESR while Pt's on IV antibiotics management d/w Pt Consultation Date/Type/Reason Admit Date/Time January 09, 2019 at 18:17 Initial Consult Date 01/10/19 Type of Consult ID Requesting Provider: KRISTIN PRYOR MD Date/Time of Note DATE: 02/04/19 TIME: 15:09 24 HR Interval Summary Constitutional: no complaints Detailed Summary Eyes: no complaints ENT: no complaints Respiratory: no complaints Cardiovascular: no complaints Gastrointestinal: no complaints Genitourinary: no complaints Musculoskeletal: bone/joint pain (L heel) Skin: no complaints Neurologic: other (sciatica pain of LLE) Exam/Review of Systems Exam Vitals Vital Signs Date Temp Pulse Resp B/P (MAP) Pulse Ox O2 O2 Flow FiO2 Time Delivery Rate 02/04/19 69 12:00 02/04/19 98.0 18 119/65 97 Room Air 11:15 (83) Intake and Output 02/03/19 02/03/19 02/04/19 1515:00 23:00 07:00 IntakeIntake Total 1250 ml 1450 ml OutputOutput Total 1000 ml 1400 ml BalanceBalance 250 ml 50 ml Constitutional: alert, oriented, well developed Psych: no complaints, nl mood/affect Head: normocephalic, atraumatic Eyes: nl conjunctiva, nl lids ENMT: nl external ears & nose, nl nasal mucosa & septum Neck: non-tender Respiratory: normal air movement Musculoskeletal: other (L heel is dressed) 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, nl mental status, nl speech; No numbness Skin: nl turgor Results Result Diagram: 02/01/19 0548 02/01/19 0548 Results 24hrs Laboratory Tests Test 02/03/19 16:56 02/03/19 21:02 02/04/19 07:50 02/04/19 12:12 Bedside Glucose 126 130 111 144 Medications Medication Current Medications Amiodarone HCl (Cordarone) 200 mg DAILY PO Last administered on 02/04/19 08:55; Admin Dose 200 MG; Start 01/10/19 at 09:00 Digoxin (Digoxin) 0.125 mg DAILY@1300 PO Last administered on 02/04/19 12:54; Admin Dose 0.125 MG; Start 01/10/19 at 13:00 Gabapentin (Neurontin) 600 mg DAILY PO Last administered on 02/04/19 08:54; Admin Dose 600 MG; Start 01/10/19 at 09:00 Empaglifozin (Jardiance) 25 mg DAILY PO Last administered on 02/04/19 08:55; Admin Dose 25 MG; Start 01/10/19 at 09:00 Linagliptin (Tradjenta) 5 mg DAILY PO Last administered on 02/04/19 08:56; Admin Dose 5 MG; Start 01/10/19 at 09:00 Diagnostic Test (Pha) (Accu-Chek) 1 ea AC MEALS AND BEDTIME XX Last administered on 02/04/19 12:13; Admin Dose 1 EA; Start 01/09/19 at 21:00 Acetaminophen (Tylenol Tab) 650 mg Q4H PRN PO MILD PAIN(1-3)OR ELEVATED TEMP; Start 01/09/19 at 20:30 Ondansetron HCl (Zofran Inj) 4 mg Q6H PRN IV NAUSEA AND/OR VOMITING Last administered on 01/14/19at 19:59; Admin Dose 4 MG; Start 01/09/19 at 20:30 Diagnostic Test (Pha) (Accu-Chek) 1 ea 02 XX Last administered on 01/29/19at 01:56; Admin Dose 1 EA; Start 01/10/19 at 02:00 Miscellaneous Information 1 ea NOTE XX ; Start 01/09/19 at 21:30 Glucose (Glutose) 15 gm Q15M PRN PO DECREASED GLUCOSE; Start 01/09/19 at 21:30 Glucose (Glutose) 22.5 gm Q15M PRN PO DECREASED GLUCOSE; Start 01/09/19 at 21:30 Dextrose (D50w Syringe) 25 ml Q15M PRN IV DECREASED GLUCOSE; Start 01/09/19 at 21:30 Dextrose (D50w Syringe) 50 ml Q15M PRN IV DECREASED GLUCOSE; Start 01/09/19 at 21:30 Glucagon (Glucagen) 1 mg Q15M PRN IM DECREASED GLUCOSE; Start 01/09/19 at 21:30 Glucose (Glutose) 15 gm Q15M PRN BUCCAL DECREASED GLUCOSE; Start 01/09/19 at 21:30 Insulin Glargine (Lantus) 18 units QHS SC Last administered on 02/03/19at 21:16; Admin Dose 18 UNITS; Start 01/09/19 at 22:30 Carvedilol (Coreg) 3.125 mg BID PO Last administered on 02/01/19at 20:05; Admin Dose 3.125 MG; Start 01/10/19 at 21:00 Vancomycin HCl (Vanco Iv Per Pharmacy) VANCOMYCIN PER PHARMACY PER PROTOCOL XX ; Start 01/11/19 at 02:30 Lisinopril (Zestril) 2.5 mg DAILY PO Last administered on 02/04/19at 08:55; Admin Dose 2.5 MG; Start 01/13/19 at 09:00 Senna (Senokot) 1 tab DAILY PRN PO CONSTIPATION Last administered on 01/28/19 21:36; Admin Dose 1 TAB; Start 01/12/19 at 18:30 Docusate Sodium (Colace) 100 mg BID PRN PO CONSTIPATION Last administered on 02/03/19 16:55; Admin Dose 100 MG; Start 01/12/19 at 18:30 Neomycin/ Polymyxin/ Bacitracin (Neosporin Topical Oint) 1 applic DAILY TOP Last administered on 02/04/19 08:56; Admin Dose 1 APPLIC; Start 01/12/19 at 18:30 Cyanocobalamin (Vitamin B12 Inj) 1,000 mcg DAILY IM Last administered on 02/04/19 08:54; Admin Dose 1,000 MCG; Start 01/16/19 at 09:00 Pantoprazole (Protonix Tab) 40 mg DAILY@06 PO Last administered on 02/04/19 05:14; Admin Dose 40 MG; Start 01/17/19 at 06:00 Metronidazole 100 ml @ 100 mls/hr Q8 IVPB Last administered on 02/04/19 05:15; Admin Dose 100 MLS/HR; Start 01/16/19 at 22:00 Cefepime HCl 50 ml @ 100 mls/hr Q12 IVPB Last administered on 02/04/19 09:09; Admin Dose 100 MLS/HR; Start 01/17/19 at 21:00 Oxycodone HCl (Oxycontin) 10 mg BID PO Last administered on 02/04/19 09:08; Admin Dose 10 MG; Start 01/18/19 at 15:00 Furosemide (Lasix) 20 mg BID DIURETICS IV Last administered on 02/04/19 05:15; Admin Dose 20 MG; Start 01/21/19 at 18:30 Vancomycin HCl 1.25 gm/Sodium Chloride 250 ml @ 83.333 mls/ hr Q12H IVPB Last administered on 02/04/19 12:54; Admin Dose 83.333 MLS/HR; Start 01/25/19 at 01:00 Insulin Aspart (Novolog Insulin Pen) NOVOLOG *MODERATE* ALGORITHM WITH MEALS BEDTIME SC Last administered on 02/04/19 12:29; Admin Dose 2 UNIT; Start 01/26/19 at 21:00 IV Flush (NS 10 ml) 10 ml PRN PRN IV IV PROTOCOL; Start 01/29/19 at 17:00 Hydromorphone HCl (Dilaudid) 1 mg Q4H PRN IV SEVERE PAIN LEVEL 7-10 Last administered on 02/04/19at 11:08; Admin Dose 1 MG; Start 02/02/19 at 15:30 CARMITA WATTS M.D. February 04, 2019 15:13
--- NOTE | 2019-02-04 17:16 | CONS ---
Assessment/Plan Assessment/Plan Assessment/Plan (Daily) 1. Right heel necrotic wound. -s/p debridement of rt foot, silvadene cream 2. Cardiomyopathy with ejection fraction of 20% to 30%. 3. Peripheral vascular disease status post PCI, right lower extremity. 4. Coronary artery disease status post coronary artery bypass graft. 5. Status post automatic implantable cardioverter-defibrillator. 6. Hypertension. 7. Diabetes mellitus. 8. Anemia. Patient has a significant drop in hematocrit. So far, clinically, there is no evidence of obvious GI bleeding. 9. Ovoid mass or filling defect arising from lesser curvature of stomach. -GIST tumor 10. Pt is pre op for peripheral artery bypass surgery which is on hold for now. Plan EUS with FNA as outpatient to confirm GIST tumor diagnosis. Will likely need surgical removal of tumor in future. Spoke with patient today regarding GIST tumor Patient will be completing the course of antibiotic for his wound infection in the lower extremity Plan of care discussed the patient he understood and has agreed Consultation Date/Type/Reason Admit Date/Time January 09, 2019 at 18:17 Initial Consult Date 01/16/19 Requesting Provider: KRISTIN PRYOR MD Date/Time of Note DATE: 02/04/19 TIME: 17:15 24 HR Interval Summary Free Text/Dictation No abdominal pain no GI bleeding no nausea no vomiting Constitutional: no complaints, improved Exam/Review of Systems Exam Vitals Vital Signs Date Temp Pulse Resp B/P (MAP) Pulse Ox O2 O2 Flow FiO2 Time Delivery Rate 02/04/19 98.0 72 18 104/56 98 Room Air 15:11 (72) Intake and Output 02/03/19 02/03/19 02/04/19 1515:00 23:00 07:00 IntakeIntake Total 1250 ml 1450 ml OutputOutput Total 1000 ml 1400 ml BalanceBalance 250 ml 50 ml Constitutional: alert, oriented, well developed Psych: no complaints, nl mood/affect Head: normocephalic, atraumatic Eyes: nl conjunctiva, EOMI, nl lids, nl sclera, PERRL ENMT: nl external ears & nose, nl lips & teeth, nl nasal mucosa & septum Neck: supple, non-tender Respiratory: clear to auscultation, normal air movement Cardiovascular: regular rate and rhythm, nl pulses Gastrointestinal: soft, nl liver, spleen, non-tender Musculoskeletal: nl extremities to inspection, nl gait and stance Extremities: normal pulses 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, nl mental status, nl speech, nl strength Skin: nl turgor; No rash or lesions Lymph: nl lymph nodes Results Result Diagram: 02/01/19 0548 02/01/19 0548 Results 24hrs Laboratory Tests Test 02/03/19 21:02 02/04/19 07:50 02/04/19 12:12 Bedside Glucose 130 111 144 Medications Medication Current Medications Amiodarone HCl (Cordarone) 200 mg DAILY PO Last administered on 02/04/19 08:55; Admin Dose 200 MG; Start 01/10/19 at 09:00 Digoxin (Digoxin) 0.125 mg DAILY@1300 PO Last administered on 02/04/19 12:54; Admin Dose 0.125 MG; Start 01/10/19 at 13:00 Gabapentin (Neurontin) 600 mg DAILY PO Last administered on 02/04/19 08:54; Admin Dose 600 MG; Start 01/10/19 at 09:00 Empaglifozin (Jardiance) 25 mg DAILY PO Last administered on 02/04/19 08:55; Admin Dose 25 MG; Start 01/10/19 at 09:00 Linagliptin (Tradjenta) 5 mg DAILY PO Last administered on 02/04/19 08:56; Admin Dose 5 MG; Start 01/10/19 at 09:00 Diagnostic Test (Pha) (Accu-Chek) 1 ea AC MEALS AND BEDTIME XX Last administered on 02/04/19 12:13; Admin Dose 1 EA; Start 01/09/19 at 21:00 Acetaminophen (Tylenol Tab) 650 mg Q4H PRN PO MILD PAIN(1-3)OR ELEVATED TEMP; Start 01/09/19 at 20:30 Ondansetron HCl (Zofran Inj) 4 mg Q6H PRN IV NAUSEA AND/OR VOMITING Last administered on 01/14/19 19:59; Admin Dose 4 MG; Start 01/09/19 at 20:30 Diagnostic Test (Pha) (Accu-Chek) 1 ea 02 XX Last administered on 01/29/19 01:56; Admin Dose 1 EA; Start 01/10/19 at 02:00 Miscellaneous Information 1 ea NOTE XX ; Start 01/09/19 at 21:30 Glucose (Glutose) 15 gm Q15M PRN PO DECREASED GLUCOSE; Start 01/09/19 at 21:30 Glucose (Glutose) 22.5 gm Q15M PRN PO DECREASED GLUCOSE; Start 01/09/19 at 21:30 Dextrose (D50w Syringe) 25 ml Q15M PRN IV DECREASED GLUCOSE; Start 01/09/19 at 21:30 Dextrose (D50w Syringe) 50 ml Q15M PRN IV DECREASED GLUCOSE; Start 01/09/19 at 21:30 Glucagon (Glucagen) 1 mg Q15M PRN IM DECREASED GLUCOSE; Start 01/09/19 at 21:30 Glucose (Glutose) 15 gm Q15M PRN BUCCAL DECREASED GLUCOSE; Start 01/09/19 at 21:30 Insulin Glargine (Lantus) 18 units QHS SC Last administered on 02/03/19 21:16; Admin Dose 18 UNITS; Start 01/09/19 at 22:30 Carvedilol (Coreg) 3.125 mg BID PO Last administered on 02/01/19 20:05; Admin Dose 3.125 MG; Start 01/10/19 at 21:00 Vancomycin HCl (Vanco Iv Per Pharmacy) VANCOMYCIN PER PHARMACY PER PROTOCOL XX ; Start 01/11/19 at 02:30 Lisinopril (Zestril) 2.5 mg DAILY PO Last administered on 02/04/19 08:55; Admin Dose 2.5 MG; Start 01/13/19 at 09:00 Senna (Senokot) 1 tab DAILY PRN PO CONSTIPATION Last administered on 01/28/19 21:36; Admin Dose 1 TAB; Start 01/12/19 at 18:30 Docusate Sodium (Colace) 100 mg BID PRN PO CONSTIPATION Last administered on 02/03/19 16:55; Admin Dose 100 MG; Start 01/12/19 at 18:30 Neomycin/ Polymyxin/ Bacitracin (Neosporin Topical Oint) 1 applic DAILY TOP Last administered on 02/04/19 08:56; Admin Dose 1 APPLIC; Start 01/12/19 at 18:30 Cyanocobalamin (Vitamin B12 Inj) 1,000 mcg DAILY IM Last administered on 02/04/19 08:54; Admin Dose 1,000 MCG; Start 01/16/19 at 09:00 Pantoprazole (Protonix Tab) 40 mg DAILY@06 PO Last administered on 02/04/19 05:14; Admin Dose 40 MG; Start 01/17/19 at 06:00 Metronidazole 100 ml @ 100 mls/hr Q8 IVPB Last administered on 02/04/19 15:15; Admin Dose 100 MLS/HR; Start 01/16/19 at 22:00 Cefepime HCl 50 ml @ 100 mls/hr Q12 IVPB Last administered on 02/04/19 09:09; Admin Dose 100 MLS/HR; Start 01/17/19 at 21:00 Oxycodone HCl (Oxycontin) 10 mg BID PO Last administered on 02/04/19 09:08; Admin Dose 10 MG; Start 01/18/19 at 15:00 Furosemide (Lasix) 20 mg BID DIURETICS IV Last administered on 02/04/19 05:15; Admin Dose 20 MG; Start 01/21/19 at 18:30 Vancomycin HCl 1.25 gm/Sodium Chloride 250 ml @ 83.333 mls/ hr Q12H IVPB Last administered on 02/04/19 12:54; Admin Dose 83.333 MLS/HR; Start 01/25/19 at 01:00 Insulin Aspart (Novolog Insulin Pen) NOVOLOG *MODERATE* ALGORITHM WITH MEALS BEDTIME SC Last administered on 02/04/19 12:29; Admin Dose 2 UNIT; Start 01/26/19 at 21:00 IV Flush (NS 10 ml) 10 ml PRN PRN IV IV PROTOCOL; Start 01/29/19 at 17:00 Hydromorphone HCl (Dilaudid) 1 mg Q4H PRN IV SEVERE PAIN LEVEL 7-10 Last administered on 02/04/19 15:15; Admin Dose 1 MG; Start 02/02/19 at 15:30 Miscellaneous Information (*Rx Drug Level Order Reminder*) MARLONO TR AT 1200 1200 ONCE XX ; Start 02/05/19 at 12:00; Stop 02/05/19 at 12:01 KACI TORRES MD February 04, 2019 17:16
--- NOTE | 2019-02-04 20:16 | CONS ---
Assessment/Plan Assessment/Plan Hospital Course (Demo Recall) IMP: 1.Pre-op for peripheral bypass surgery. Lexiscan with no ischemia/+scar EF 28%. Echo EF 25%. 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 Recc: -ON tele -Continue digoxin -Continue coreg and zestril as tolerated only for treatment of cardiomyopathy -Continue amiodarone -Continue abx's and f/u cx data -Follow volume status closely and continue lasix diuresis -local wound care -pnding LE bypass when patient stable. Pedro transferred to SNF and to return for surgery at later date -transfuse PRBC's as neccessary -further outpatient eval of likely GIST tumor Consultation Date/Type/Reason Admit Date/Time January 09, 2019 at 18:17 Initial Consult Date 01/10/19 Type of Consult Cardiology Reason for Consultation Preop Requesting Provider: KRISTIN PRYOR MD Date/Time of Note DATE: 02/04/19 TIME: 20:06 Exam/Review of Systems Vital Signs Vitals Vital Signs Date Temp Pulse Resp B/P (MAP) Pulse Ox O2 O2 Flow FiO2 Time Delivery Rate 02/04/19 71 16:00 02/04/19 98.0 18 104/56 98 Room Air 15:11 (72) Intake and Output 02/03/19 02/03/19 02/04/19 1515:00 23:00 07:00 IntakeIntake Total 1250 ml 1450 ml OutputOutput Total 1000 ml 1400 ml BalanceBalance 250 ml 50 ml Exam Exam Review of Systems: CONSTITUTIONAL: No fevers, chills. PULMONARY: No sob CARDIOVASCULAR: No chest pain/palpitations GASTROINTESTINAL: No nausea/vomiting. GENITOURINARY: No hematuria/dysuria. MUSCULOSKELETAL: No myagias/arthalgias. PSYCHIATRIC: The patient denies depression. NEUROLOGIC: No weakness Constitutional: alert Psych: no complaints Head: normocephalic ENMT: mucosa pink and moist Neck: supple, jvd (9 cm water) Respiratory: diminished breath sounds (at bases/B) Cardiovascular: regular rate and rhythm Gastrointestinal: soft, non-tender Musculoskeletal: muscle tone (normal) Extremities: pitting pedal edema (bilateral LE) 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: other (No focal deficits) Labs Result Diagram: 02/01/1948 02/01/19 0548 Results 24hrs Laboratory Tests Test 02/03/19 21:02 02/04/19 07:50 02/04/19 12:12 02/04/19 17:37 Bedside Glucose 130 111 144 235 H Test 02/04/19 17:39 Bedside Glucose 135 Medications Medications Current Medications Amiodarone HCl (Cordarone) 200 mg DAILY PO Last administered on 02/04/19 08:55; Admin Dose 200 MG; Start 01/10/19 at 09:00 Digoxin (Digoxin) 0.125 mg DAILY@1300 PO Last administered on 02/04/19 12:54; Admin Dose 0.125 MG; Start 01/10/19 at 13:00 Gabapentin (Neurontin) 600 mg DAILY PO Last administered on 02/04/19 08:54; Admin Dose 600 MG; Start 01/10/19 at 09:00 Empaglifozin (Jardiance) 25 mg DAILY PO Last administered on 02/04/19 08:55; Admin Dose 25 MG; Start 01/10/19 at 09:00 Linagliptin (Tradjenta) 5 mg DAILY PO Last administered on 02/04/19 08:56; Admin Dose 5 MG; Start 01/10/19 at 09:00 Diagnostic Test (Pha) (Accu-Chek) 1 ea AC MEALS AND BEDTIME XX Last administered on 02/04/19 17:40; Admin Dose 1 EA; Start 01/09/19 at 21:00 Acetaminophen (Tylenol Tab) 650 mg Q4H PRN PO MILD PAIN(1-3)OR ELEVATED TEMP; Start 01/09/19 at 20:30 Ondansetron HCl (Zofran Inj) 4 mg Q6H PRN IV NAUSEA AND/OR VOMITING Last administered on 01/14/19 19:59; Admin Dose 4 MG; Start 01/09/19 at 20:30 Diagnostic Test (Pha) (Accu-Chek) 1 ea 02 XX Last administered on 01/29/19 01:56; Admin Dose 1 EA; Start 01/10/19 at 02:00 Miscellaneous Information 1 ea NOTE XX ; Start 01/09/19 at 21:30 Glucose (Glutose) 15 gm Q15M PRN PO DECREASED GLUCOSE; Start 01/09/19 at 21:30 Glucose (Glutose) 22.5 gm Q15M PRN PO DECREASED GLUCOSE; Start 01/09/19 at 21:30 Dextrose (D50w Syringe) 25 ml Q15M PRN IV DECREASED GLUCOSE; Start 01/09/19 at 21:30 Dextrose (D50w Syringe) 50 ml Q15M PRN IV DECREASED GLUCOSE; Start 01/09/19 at 21:30 Glucagon (Glucagen) 1 mg Q15M PRN IM DECREASED GLUCOSE; Start 01/09/19 at 21:30 Glucose (Glutose) 15 gm Q15M PRN BUCCAL DECREASED GLUCOSE; Start 01/09/19 at 21:30 Insulin Glargine (Lantus) 18 units QHS SC Last administered on 02/03/19 21:16; Admin Dose 18 UNITS; Start 01/09/19 at 22:30 Carvedilol (Coreg) 3.125 mg BID PO Last administered on 02/01/19at 20:05; Admin Dose 3.125 MG; Start 01/10/19 at 21:00 Vancomycin HCl (Vanco Iv Per Pharmacy) VANCOMYCIN PER PHARMACY PER PROTOCOL XX ; Start 01/11/19 at 02:30 Lisinopril (Zestril) 2.5 mg DAILY PO Last administered on 02/04/19 08:55; Admin Dose 2.5 MG; Start 01/13/19 at 09:00 Senna (Senokot) 1 tab DAILY PRN PO CONSTIPATION Last administered on 01/28/19 21:36; Admin Dose 1 TAB; Start 01/12/19 at 18:30 Docusate Sodium (Colace) 100 mg BID PRN PO CONSTIPATION Last administered on 02/03/19 16:55; Admin Dose 100 MG; Start 01/12/19 at 18:30 Neomycin/ Polymyxin/ Bacitracin (Neosporin Topical Oint) 1 applic DAILY TOP Last administered on 02/04/19 08:56; Admin Dose 1 APPLIC; Start 01/12/19 at 18:30 Cyanocobalamin (Vitamin B12 Inj) 1,000 mcg DAILY IM Last administered on 02/04/19 08:54; Admin Dose 1,000 MCG; Start 01/16/19 at 09:00 Pantoprazole (Protonix Tab) 40 mg DAILY@06 PO Last administered on 02/04/19 05:14; Admin Dose 40 MG; Start 01/17/19 at 06:00 Metronidazole 100 ml @ 100 mls/hr Q8 IVPB Last administered on 02/04/19 15:15; Admin Dose 100 MLS/HR; Start 01/16/19 at 22:00 Cefepime HCl 50 ml @ 100 mls/hr Q12 IVPB Last administered on 02/04/19 09:09; Admin Dose 100 MLS/HR; Start 01/17/19 at 21:00 Oxycodone HCl (Oxycontin) 10 mg BID PO Last administered on 02/04/19 09:08; Admin Dose 10 MG; Start 01/18/19 at 15:00 Furosemide (Lasix) 20 mg BID DIURETICS IV Last administered on 02/04/19 17:49; Admin Dose 20 MG; Start 01/21/19 at 18:30 Vancomycin HCl 1.25 gm/Sodium Chloride 250 ml @ 83.333 mls/ hr Q12H IVPB Last administered on 02/04/19 12:54; Admin Dose 83.333 MLS/HR; Start 01/25/19 at 01:00 Insulin Aspart (Novolog Insulin Pen) NOVOLOG *MODERATE* ALGORITHM WITH MEALS BEDTIME SC Last administered on 02/04/19 12:29; Admin Dose 2 UNIT; Start 01/26/19 at 21:00 IV Flush (NS 10 ml) 10 ml PRN PRN IV IV PROTOCOL; Start 01/29/19 at 17:00 Hydromorphone HCl (Dilaudid) 1 mg Q4H PRN IV SEVERE PAIN LEVEL 7-10 Last administered on 02/04/19 15:15; Admin Dose 1 MG; Start 02/02/19 at 15:30 Miscellaneous Information (*Rx Drug Level Order Reminder*) VANCO TR AT 1200 1200 ONCE XX ; Start 02/05/19 at 12:00; Stop 02/05/19 at 12:01 VERO ARELLANO February 04, 2019 20:16
[2019-02-04] MEDS: DOCUSATE SODIUM 100 MG CAP PO PRN (20:45)
[2019-02-04] MEDS: INSULIN GLARGINE [LANTus] (100 UNITS/ML) SYG SC SCH (21:00)
[2019-02-05] VITALS (13 sets, daily range): BP systolic 93–119; BP diastolic 25–65; PULSE 72–92; RESP 18–20
[2019-02-05] MEDS: VANCOMYCIN HCL 1.25 GM in SOD CHLORIDE 0.9% 250 ML IVPB SCH ×2 (01:37→13:32)
[2019-02-05] MEDS: HYDROmorphONE 1 MG/ML SYG IV PRN ×5 (02:42→21:24)
[2019-02-05] MEDS: ACCU-CHEK XX SCH ×5 (02:59→21:15)
[2019-02-05] MEDS: FUROSEMIDE 20 MG INJ IV SCH ×2 (06:00→17:22)
[2019-02-05] MEDS: metroNIDAZOLE 500 MG/NS (PMX) 100 ML IVPB SCH ×3 (06:05→22:49)
[2019-02-05] MEDS: PANTOPRAZOLE (EC) 40 MG TAB PO SCH (06:06)
[2019-02-05] MEDS: INSULIN ASPART [NOVOLOG] 3 ML PEN SC SCH ×4 (07:55→21:00)
--- NOTE | 2019-02-05 08:59 | CONS ---
Assessment/Plan Assessment/Plan Hospital Course (Demo Recall) 63-year-old gentleman with history of coronary artery disease, status post CABG, also status post AICD placement, hypertension, diabetes, peripheral vascular disease, status post aortogram and right lower extremity runoff and percutaneous angioplasty of the posterior tibial artery and anterior tibial artery in 10/2018. Patient has a worsening RLE heel wound and thus admitted for sepsis. #Gastric mass -pt to have EUS and FNA ans an out patient. 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 Coli, Proteus, and Enterococcus -h/o 6 weeks of IV vancomycin and ceftriaxone in 2018 - Plan for a right pop DP bypass as an outpatient. # Anemia-normocytic -Hg currently stable > 9 -likely 2/2 GI bleed -continue to hold all blood thinners -CT A/P does not reveal evidence of bleed -f/u endoscopy. pt was found with a T3.5 cm mass/filling defect arising along the lesser curvature of the stomach - consistent with GIST tumor Consultation Date/Type/Reason Admit Date/Time January 09, 2019 at 18:17 Initial Consult Date 01/16/19 Type of Consult oncology Reason for Consultation GIST tumor Requesting Provider: KRISTIN PRYOR MD Date/Time of Note DATE: 02/05/19 TIME: 08:54 24 HR Interval Summary Free Text/Dictation continues on IV antibiotics Exam/Review of Systems Exam Vitals Vital Signs Date Temp Pulse Resp B/P (MAP) Pulse Ox O2 O2 Flow FiO2 Time Delivery Rate 02/05/19 98.1 76 18 93/25 (47) 97 Room Air 07:36 Intake and Output 02/04/19 02/04/19 02/05/19 1515:00 23:00 07:00 IntakeIntake Total 50 ml 250 ml 300 ml OutputOutput Total 800 ml 1100 ml BalanceBalance 50 ml -550 ml -800 ml Constitutional: alert, oriented Psych: no complaints Head: normocephalic Eyes: nl conjunctiva ENMT: nl external ears & nose Neck: supple Respiratory: clear to auscultation Cardiovascular: regular rate and rhythm Gastrointestinal: soft Musculoskeletal: nl extremities to inspection Results Result Diagram: 02/01/19 0548 02/01/19 0548 Results 24hrs Laboratory Tests Test 02/04/19 12:12 02/04/19 17:37 02/04/19 17:39 02/04/19 20:38 Bedside Glucose 144 235 H 135 261 H Test 02/05/19 02:43 02/05/19 05:49 02/05/19 08:08 Bedside Glucose 107 95 Erythrocyte 23.0 H Sedimentation Rate Medications Medication Current Medications Amiodarone HCl (Cordarone) 200 mg DAILY PO Last administered on 02/04/19 08:55; Admin Dose 200 MG; Start 01/10/19 at 09:00 Digoxin (Digoxin) 0.125 mg DAILY@1300 PO Last administered on 02/04/19 12:54; Admin Dose 0.125 MG; Start 01/10/19 at 13:00 Gabapentin (Neurontin) 600 mg DAILY PO Last administered on 02/04/19 08:54; Admin Dose 600 MG; Start 01/10/19 at 09:00 Empaglifozin (Jardiance) 25 mg DAILY PO Last administered on 02/04/19 08:55; Admin Dose 25 MG; Start 01/10/19 at 09:00 Linagliptin (Tradjenta) 5 mg DAILY PO Last administered on 02/04/19 08:56; Admin Dose 5 MG; Start 01/10/19 at 09:00 Diagnostic Test (Pha) (Accu-Chek) 1 ea AC MEALS AND BEDTIME XX Last administered on 02/05/19 08:08; Admin Dose 1 EA; Start 01/09/19 at 21:00 Acetaminophen (Tylenol Tab) 650 mg Q4H PRN PO MILD PAIN(1-3)OR ELEVATED TEMP; Start 01/09/19 at 20:30 Ondansetron HCl (Zofran Inj) 4 mg Q6H PRN IV NAUSEA AND/OR VOMITING Last administered on 01/14/19 19:59; Admin Dose 4 MG; Start 01/09/19 at 20:30 Diagnostic Test (Pha) (Accu-Chek) 1 ea 02 XX Last administered on 02/05/19 02:59; Admin Dose 1 EA; Start 01/10/19 at 02:00 Miscellaneous Information 1 ea NOTE XX ; Start 01/09/19 at 21:30 Glucose (Glutose) 15 gm Q15M PRN PO DECREASED GLUCOSE; Start 01/09/19 at 21:30 Glucose (Glutose) 22.5 gm Q15M PRN PO DECREASED GLUCOSE; Start 01/09/19 at 21:30 Dextrose (D50w Syringe) 25 ml Q15M PRN IV DECREASED GLUCOSE; Start 01/09/19 at 21:30 Dextrose (D50w Syringe) 50 ml Q15M PRN IV DECREASED GLUCOSE; Start 01/09/19 at 21:30 Glucagon (Glucagen) 1 mg Q15M PRN IM DECREASED GLUCOSE; Start 01/09/19 at 21:30 Glucose (Glutose) 15 gm Q15M PRN BUCCAL DECREASED GLUCOSE; Start 01/09/19 at 21:30 Insulin Glargine (Lantus) 18 units QHS SC Last administered on 02/04/19 21:00; Admin Dose 18 UNITS; Start 01/09/19 at 22:30 Carvedilol (Coreg) 3.125 mg BID PO Last administered on 02/01/19 20:05; Admin Dose 3.125 MG; Start 01/10/19 at 21:00 Vancomycin HCl (Vanco Iv Per Pharmacy) VANCOMYCIN PER PHARMACY PER PROTOCOL XX ; Start 01/11/19 at 02:30 Lisinopril (Zestril) 2.5 mg DAILY PO Last administered on 02/04/19 08:55; Admin Dose 2.5 MG; Start 01/13/19 at 09:00 Senna (Senokot) 1 tab DAILY PRN PO CONSTIPATION Last administered on 01/28/19 21:36; Admin Dose 1 TAB; Start 01/12/19 at 18:30 Docusate Sodium (Colace) 100 mg BID PRN PO CONSTIPATION Last administered on 02/04/19 20:45; Admin Dose 100 MG; Start 01/12/19 at 18:30 Neomycin/ Polymyxin/ Bacitracin (Neosporin Topical Oint) 1 applic DAILY TOP Last administered on 02/04/19 08:56; Admin Dose 1 APPLIC; Start 01/12/19 at 18:30 Cyanocobalamin (Vitamin B12 Inj) 1,000 mcg DAILY IM Last administered on 02/04/19 08:54; Admin Dose 1,000 MCG; Start 01/16/19 at 09:00 Pantoprazole (Protonix Tab) 40 mg DAILY@06 PO Last administered on 02/05/19 06:06; Admin Dose 40 MG; Start 01/17/19 at 06:00 Metronidazole 100 ml @ 100 mls/hr Q8 IVPB Last administered on 02/05/19 06:05; Admin Dose 100 MLS/HR; Start 01/16/19 at 22:00 Cefepime HCl 50 ml @ 100 mls/hr Q12 IVPB Last administered on 02/04/19 20:43; Admin Dose 100 MLS/HR; Start 01/17/19 at 21:00 Oxycodone HCl (Oxycontin) 10 mg BID PO Last administered on 02/04/19 20:45; Admin Dose 10 MG; Start 01/18/19 at 15:00 Furosemide (Lasix) 20 mg BID DIURETICS IV Last administered on 02/04/19 17:49; Admin Dose 20 MG; Start 01/21/19 at 18:30 Vancomycin HCl 1.25 gm/Sodium Chloride 250 ml @ 83.333 mls/ hr Q12H IVPB Last administered on 02/05/19 01:37; Admin Dose 83.333 MLS/HR; Start 01/25/19 at 01:00 Insulin Aspart (Novolog Insulin Pen) NOVOLOG *MODERATE* ALGORITHM WITH MEALS BEDTIME SC Last administered on 02/04/19 21:00; Admin Dose 3 UNIT; Start 01/26/19 at 21:00 IV Flush (NS 10 ml) 10 ml PRN PRN IV IV PROTOCOL; Start 01/29/19 at 17:00 Hydromorphone HCl (Dilaudid) 1 mg Q4H PRN IV SEVERE PAIN LEVEL 7-10 Last administered on 02/05/19 06:45; Admin Dose 1 MG; Start 02/02/19 at 15:30 Miscellaneous Information (*Rx Drug Level Order Reminder*) RAJIV TR AT 1200 1200 ONCE XX ; Start 02/05/19 at 12:00; Stop 02/05/19 at 12:01 TJ QUINTERO M.D. February 05, 2019 08:59
[2019-02-05] MEDS: AMIODARONE 200 MG TAB PO SCH (09:00)
[2019-02-05] MEDS: NEOMYC/POLYMYX/BACIT 30 GM OINT TOP SCH (09:00)
[2019-02-05] MEDS: LISINOPRIL 5 MG TAB PO SCH (09:00)
[2019-02-05] MEDS: CEFEPIME 2GM/50 ML (PMX) 50 ML IVPB SCH ×2 (09:17→21:19)
[2019-02-05] MEDS: CYANOCOBALAMIN 1000 MCG INJ IM SCH (09:18)
[2019-02-05] MEDS: GABAPENTIN 300 MG CAP PO SCH (09:18)
[2019-02-05] MEDS: EMPAGLIFLOZIN 10 MG TABLET PO SCH (09:18)
[2019-02-05] MEDS: LINAGLIPTIN 5 MG TABLET PO SCH (09:19)
[2019-02-05] MEDS: oxyCODONE (CR) 10 MG TAB [oxyCONTIN] PO SCH ×2 (09:19→22:49)
[2019-02-05] MEDS: DOCUSATE SODIUM 100 MG CAP PO PRN (09:19)
--- NOTE | 2019-02-05 13:02 | CONS ---
[facility] HCIS Consult Follow-up Patient Name: Humble Zayas Unit Number: [id number] Date of : 1955 Patient Status: Admitted Inpatient Attending Doctor: Kristin Pryor MD Edit: CARMITA GARCIA M.D. on 02/06/19 @ 16:57 Jose: I discussed the management with [employer] Garo and agree Assessment/Plan Assessment/Plan Hospital Course (Demo Recall) - polymicrobial infection of non-healing ulcer of R heel. CT on 01/10/2019 did not show evidence of OM. ESR 26 on 01/09/2019 and 37 on 01/12/2019; superficial wound cx Pseudomonas, E. Coli, Enterococcus (isolated from broth only), scant Proteus, and scant CoNS - s/p Debridement of the right calcaneal ulceration 01/13/2019; intraop cx grew E. Coli, Proteus, and Enterococcus - chronic wound of R heel, in the past the wound culture grew E. coli - h/o OM of R foot, h/o 6 weeks of IV vancomycin and ceftriaxone in 2018. 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 and needs EUS with FNA to confirm the diagnosis - trauma to R knee - anemia requiring PRBC - PAF - CAD s/p CABG - HTN - CM with EF 25% - h/o AICD placement - PVD - h/o aortogram, RLE runoff and percutaneous angioplasty of the posterior tibial artery and the anterior tibial artery in 10/2018 - DM - Hgb A1c 7.6% - HLD associated with DM Recommendations: - serial ESR (ESR 26 ->37->23 on 02/05/2019) - we recommend 6 weeks of Vancomycin IV (01/11/2019-), Cefepime IV (restart 01/17/2019-), and metronidazole IV (01/16/2019-) through 02/22/19 - If Pt goes home, IV metronidazole may be replaced with PO metronidazole - please check weekly CBC BMP and ESR while Pt's on IV antibiotics Management d/w patient, (female friend at bedside), and with Dr. Garcia Recommendations: - Continue Cefepime (restart 01/17/2019-) for Pseudomonas, E. Coli and Proteus. I spoked to Judy at [facility] who confirmed sensis of Cefepime to E. Coli and Proteus - Continue IV vancomycin (01/11/2019-) - Continue Flagyl IV (01/16/19 -) - Consider PICC line - Will likely require 4-6 weeks abx - S/p clindamycin and meropenem (01/11/2019-01/16/19); S/p Ceftriaxone Management d/w patient, KAY Regan, and with Dr. Garcia Consultation Date/Type/Reason Admit Date/Time January 09, 2019 at 18:17 Initial Consult Date 01/16/19 Type of Consult Infectious Disease Requesting Provider: KRISTIN PRYOR MD Date/Time of Note DATE: 02/05/19 TIME: 12:58 24 HR Interval Summary Free Text/Dictation ESR is trending down. Remains afebrile. Pt states he is scheduled for RLE bypass next week on Saturday. C/o sciatica pain extending down LLE. Pt is taking gabapentin but states it make him sleepy in the morning. Denies current R foot pain. No n/v/d, dysuria. C/o mild constipation but states he has been having a BM every two days. Exam/Review of Systems Exam Vitals Vital Signs Date Temp Pulse Resp B/P (MAP) Pulse Ox O2 O2 Flow FiO2 Time Delivery Rate 02/05/19 98.2 78 18 98/57 (71) 97 Room Air 11:10 Intake and Output 02/04/19 02/04/19 02/05/19 1515:00 23:00 07:00 IntakeIntake Total 50 ml 250 ml 300 ml OutputOutput Total 800 ml 1100 ml BalanceBalance 50 ml -550 ml -800 ml Constitutional: alert, oriented, well developed Psych: no complaints, nl mood/affect Head: normocephalic, atraumatic Eyes: nl conjunctiva, nl lids, nl sclera ENMT: nl external ears & nose, nl nasal mucosa & septum, mucosa pink and moist Neck: supple Respiratory: clear to auscultation, normal air movement Cardiovascular: regular rate and rhythm, nl pulses Gastrointestinal: soft, non-tender Extremities: edema (trace RLE edema), other (R foot is wrapped with Kerlix c/d/i; photos in chart and nurses note reviewed) 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: nl mental status, nl speech Skin: nl turgor, other (RUE PICC c/d/i); No rash or lesions Results Result Diagram: 02/01/1948 02/01/19547 Results 24hrs Laboratory Tests Test 02/04/19 17:37 02/04/19 17:39 02/04/19 20:38 02/05/19 02:43 Bedside Glucose 235 H 135 261 H 107 Test 02/05/19 05:49 02/05/19 08:08 02/05/19 12:19 Erythrocyte 23.0 H Sedimentation Rate Bedside Glucose 95 117 Medications Medication Current Medications Amiodarone HCl (Cordarone) 200 mg DAILY PO Last administered on 02/04/19 08:55; Admin Dose 200 MG; Start 01/10/19 at 09:00 Digoxin (Digoxin) 0.125 mg DAILY@1300 PO Last administered on 02/04/19 12:54; Admin Dose 0.125 MG; Start 01/10/19 at 13:00 Gabapentin (Neurontin) 600 mg DAILY PO Last administered on 02/05/19 09:18; Admin Dose 600 MG; Start 01/10/19 at 09:00 Empaglifozin (Jardiance) 25 mg DAILY PO Last administered on 02/05/19 09:18; Admin Dose 25 MG; Start 01/10/19 at 09:00 Linagliptin (Tradjenta) 5 mg DAILY PO Last administered on 02/05/19 09:19; Admin Dose 5 MG; Start 01/10/19 at 09:00 Diagnostic Test (Pha) (Accu-Chek) 1 ea AC MEALS AND BEDTIME XX Last administered on 02/05/19 12:17; Admin Dose 1 EA; Start 01/09/19 at 21:00 Acetaminophen (Tylenol Tab) 650 mg Q4H PRN PO MILD PAIN(1-3)OR ELEVATED TEMP; Start 01/09/19 at 20:30 Ondansetron HCl (Zofran Inj) 4 mg Q6H PRN IV NAUSEA AND/OR VOMITING Last administered on 01/14/19at 19:59; Admin Dose 4 MG; Start 01/09/19 at 20:30 Diagnostic Test (Pha) (Accu-Chek) 1 ea 02 XX Last administered on 02/05/19at 02:59; Admin Dose 1 EA; Start 01/10/19 at 02:00 Miscellaneous Information 1 ea NOTE XX ; Start 01/09/19 at 21:30 Glucose (Glutose) 15 gm Q15M PRN PO DECREASED GLUCOSE; Start 01/09/19 at 21:30 Glucose (Glutose) 22.5 gm Q15M PRN PO DECREASED GLUCOSE; Start 01/09/19 at 21:30 Dextrose (D50w Syringe) 25 ml Q15M PRN IV DECREASED GLUCOSE; Start 01/09/19 at 21:30 Dextrose (D50w Syringe) 50 ml Q15M PRN IV DECREASED GLUCOSE; Start 01/09/19 at 21:30 Glucagon (Glucagen) 1 mg Q15M PRN IM DECREASED GLUCOSE; Start 01/09/19 at 21:30 Glucose (Glutose) 15 gm Q15M PRN BUCCAL DECREASED GLUCOSE; Start 01/09/19 at 21:30 Insulin Glargine (Lantus) 18 units QHS SC Last administered on 02/04/19at 21:00; Admin Dose 18 UNITS; Start 01/09/19 at 22:30 Carvedilol (Coreg) 3.125 mg BID PO Last administered on 02/01/19at 20:05; Admin Dose 3.125 MG; Start 01/10/19 at 21:00 Vancomycin HCl (Vanco Iv Per Pharmacy) VANCOMYCIN PER PHARMACY PER PROTOCOL XX ; Start 01/11/19 at 02:30 Lisinopril (Zestril) 2.5 mg DAILY PO Last administered on 02/04/19at 08:55; Ad min Dose 2.5 MG; Start 01/13/19 at 09:00 Senna (Senokot) 1 tab DAILY PRN PO CONSTIPATION Last administered on 01/28/19at 21:36; Admin Dose 1 TAB; Start 01/12/19 at 18:30 Docusate Sodium (Colace) 100 mg BID PRN PO CONSTIPATION Last administered on 02/05/19 09:19; Admin Dose 100 MG; Start 01/12/19 at 18:30 Neomycin/ Polymyxin/ Bacitracin (Neosporin Topical Oint) 1 applic DAILY TOP Last administered on 02/04/19 08:56; Admin Dose 1 APPLIC; Start 01/12/19 at 18:30 Cyanocobalamin (Vitamin B12 Inj) 1,000 mcg DAILY IM Last administered on 02/05/19 09:18; Admin Dose 1,000 MCG; Start 01/16/19 at 09:00 Pantoprazole (Protonix Tab) 40 mg DAILY@06 PO Last administered on 02/05/19 06:06; Admin Dose 40 MG; Start 01/17/19 at 06:00 Metronidazole 100 ml @ 100 mls/hr Q8 IVPB Last administered on 02/05/19 06:05; Admin Dose 100 MLS/HR; Start 01/16/19 at 22:00 Cefepime HCl 50 ml @ 100 mls/hr Q12 IVPB Last administered on 02/05/19 09:17; Admin Dose 100 MLS/HR; Start 01/17/19 at 21:00 Oxycodone HCl (Oxycontin) 10 mg BID PO Last administered on 02/05/19 09:19; Admin Dose 10 MG; Start 01/18/19 at 15:00 Furosemide (Lasix) 20 mg BID DIURETICS IV Last administered on 02/04/19 17:49; Admin Dose 20 MG; Start 01/21/19 at 18:30 Vancomycin HCl 1.25 gm/Sodium Chloride 250 ml @ 83.333 mls/ hr Q12H IVPB Last administered on 02/05/19 01:37; Admin Dose 83.333 MLS/HR; Start 01/25/19 at 01:00 Insulin Aspart (Novolog Insulin Pen) NOVOLOG *MODERATE* ALGORITHM WITH MEALS BEDTIME SC Last administered on 02/04/19 21:00; Admin Dose 3 UNIT; Start 01/26/19 at 21:00 IV Flush (NS 10 ml) 10 ml PRN PRN IV IV PROTOCOL; Start 01/29/19 at 17:00 Hydromorphone HCl (Dilaudid) 1 mg Q4H PRN IV SEVERE PAIN LEVEL 7-10 Last administered on 02/05/19 11:16; Admin Dose 1 MG; Start 02/02/19 at 15:30 LE HUTCHINS NP February 05, 2019 13:02
[2019-02-05] MEDS: DIGOXIN 0.125 MG TAB PO SCH (13:39)
--- NOTE | 2019-02-05 14:58 | PN ---
Date/Time of Note Date/Time of Note DATE: 02/05/19 TIME: 14:54 Assessment/Plan VTE Prophylaxis Risk score (from Ns)>0 risk: 2 SCD applied (from Ns): Yes SCD contraindicated: other Pharmacological prophylaxis: NA/contraindicated Pharm contraindication: bleeding Lines/Catheters IV Catheter Type (from Nrsg): PICC Line Central line still needed: Yes Urinary Cath still in place: No Assessment/Plan Hospital Course Patient remains hemodynamically stable, pain is adequately controlled. Discussed with case management plan for [facility] facility placement for wound care and IV antibiotics: vancomycin cefepime and Flagyl through 02/22/2019. Patient is to follow-up with Dr. Sheppard as an outpatient for right pop DP bypass. 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 EUS and FNA as an outpatient to confirm GIST tumor diagnosis. Continue PPI. -New onset of anemia and hypotension requiring blood transfusion on 01/15/2019, stool for OB is negative. -Right heel necrotic wound. Dr. Mata is following in podiatry consultation. Status post debridement. Continue antibiotics per ID. Dr. Urbano is following in infection disease consultation. Will require total of 6 weeks of Vancomycin IV, Cefepime IV, and Flagyl IV through 02/22/19. -Chronic peripheral vascular disease, history of angioplasty x2. Dr. Sheppard is following in vascular surgery consultation. Plan for a right pop DP bypass as an outpatient. -Coronary artery disease, status post coronary artery bypass graft. -Cardiomyopathy with ejection fraction of 25%. Continue Coreg. Dr. Foster is following in cardiology consultation. -Status post AICD. -Hx of Hypertension. -Diabetes hemoglobin A1c 7.6. Continue Lantus and NovoLog. -Right knee contusion and abrasion status post fall. Status post evaluation by Dr. Zelaya and orthopedic surgery. No signs of fracture or dystrophic dislocation. -Chronic low back pain with significant spondylolisthesis grade II at the level of L5 to S1. Further recommendations based on clinical course. Plan of care discussed with Dr. Mann. Result Diagram: 02/01/19 0548 02/01/19 0548 Results 24hrs Laboratory Tests Test 02/04/19 17:37 02/04/19 17:39 02/04/19 20:38 02/05/19 02:43 Bedside Glucose 235 H 135 261 H 107 Test 02/05/19 05:49 02/05/19 08:08 02/05/19 12:19 Erythrocyte 23.0 H Sedimentation Rate Bedside Glucose 95 117 Vancomycin Level 12.6 Trough Exam/Review of Systems Exam Vitals Vital Signs Date Temp Pulse Resp B/P (MAP) Pulse Ox O2 O2 Flow FiO2 Time Delivery Rate 02/05/19 74 12:00 02/05/19 98.2 18 98/57 (71) 97 Room Air 11:10 Intake and Output 02/04/19 02/04/19 02/05/19 1515:00 23:00 07:00 IntakeIntake Total 50 ml 250 ml 300 ml OutputOutput Total 800 ml 1100 ml BalanceBalance 50 ml -550 ml -800 ml Exam Constitutional: alert, oriented Respiratory: clear to auscultation Cardiovascular: regular rhythm and rate, AICD Gastrointestinal: soft, non-tender Extremities: normal pulses, other (Right heel wound) Right chest triple lumen catheter Results Results 24hrs Laboratory Tests Test 02/04/19 17:37 02/04/19 17:39 02/04/19 20:38 02/05/19 02:43 Bedside Glucose 235 H 135 261 H 107 Test 02/05/19 05:49 02/05/19 08:08 02/05/19 12:19 Erythrocyte 23.0 H Sedimentation Rate Bedside Glucose 95 117 Vancomycin Level 12.6 Trough Medications Medication Current Medications Amiodarone HCl (Cordarone) 200 mg DAILY PO Last administered on 02/04/19 08:55; Admin Dose 200 MG; Start 01/10/19 at 09:00 Digoxin (Digoxin) 0.125 mg DAILY@1300 PO Last administered on 02/05/19 13:39; Admin Dose 0.125 MG; Start 01/10/19 at 13:00 Gabapentin (Neurontin) 600 mg DAILY PO Last administered on 02/05/19 09:18; Admin Dose 600 MG; Start 01/10/19 at 09:00 Empaglifozin (Jardiance) 25 mg DAILY PO Last administered on 02/05/19 09:18; Admin Dose 25 MG; Start 01/10/19 at 09:00 Linagliptin (Tradjenta) 5 mg DAILY PO Last administered on 02/05/19 09:19; Admin Dose 5 MG; Start 01/10/19 at 09:00 Diagnostic Test (Pha) (Accu-Chek) 1 ea AC MEALS AND BEDTIME XX Last administered on 02/05/19at 12:17; Admin Dose 1 EA; Start 01/09/19 at 21:00 Acetaminophen (Tylenol Tab) 650 mg Q4H PRN PO MILD PAIN(1-3)OR ELEVATED TEMP; Start 01/09/19 at 20:30 Ondansetron HCl (Zofran Inj) 4 mg Q6H PRN IV NAUSEA AND/OR VOMITING Last administered on 01/14/19 19:59; Admin Dose 4 MG; Start 01/09/19 at 20:30 Diagnostic Test (Pha) (Accu-Chek) 1 ea 02 XX Last administered on 02/05/19at 02:59; Admin Dose 1 EA; Start 01/10/19 at 02:00 Miscellaneous Information 1 ea NOTE XX ; Start 01/09/19 at 21:30 Glucose (Glutose) 15 gm Q15M PRN PO DECREASED GLUCOSE; Start 01/09/19 at 21:30 Glucose (Glutose) 22.5 gm Q15M PRN PO DECREASED GLUCOSE; Start 01/09/19 at 21:30 Dextrose (D50w Syringe) 25 ml Q15M PRN IV DECREASED GLUCOSE; Start 01/09/19 at 21:30 Dextrose (D50w Syringe) 50 ml Q15M PRN IV DECREASED GLUCOSE; Start 01/09/19 at 21:30 Glucagon (Glucagen) 1 mg Q15M PRN IM DECREASED GLUCOSE; Start 01/09/19 at 21:30 Glucose (Glutose) 15 gm Q15M PRN BUCCAL DECREASED GLUCOSE; Start 01/09/19 at 21:30 Insulin Glargine (Lantus) 18 units QHS SC Last administered on 02/04/19at 21:00; Admin Dose 18 UNITS; Start 01/09/19 at 22:30 Carvedilol (Coreg) 3.125 mg BID PO Last administered on 02/01/19at 20:05; Admin Dose 3.125 MG; Start 01/10/19 at 21:00 Vancomycin HCl (Vanco Iv Per Pharmacy) VANCOMYCIN PER PHARMACY PER PROTOCOL XX ; Start 01/11/19 at 02:30 Lisinopril (Zestril) 2.5 mg DAILY PO Last administered on 02/04/19 08:55; Admin Dose 2.5 MG; Start 01/13/19 at 09:00 Senna (Senokot) 1 tab DAILY PRN PO CONSTIPATION Last administered on 01/28/19 21:36; Admin Dose 1 TAB; Start 01/12/19 at 18:30 Docusate Sodium (Colace) 100 mg BID PRN PO CONSTIPATION Last administered on 02/05/19 09:19; Admin Dose 100 MG; Start 01/12/19 at 18:30 Neomycin/ Polymyxin/ Bacitracin (Neosporin Topical Oint) 1 applic DAILY TOP Last administered on 02/04/19 08:56; Admin Dose 1 APPLIC; Start 01/12/19 at 18:30 Cyanocobalamin (Vitamin B12 Inj) 1,000 mcg DAILY IM Last administered on 02/05/19 09:18; Admin Dose 1,000 MCG; Start 01/16/19 at 09:00 Pantoprazole (Protonix Tab) 40 mg DAILY@06 PO Last administered on 02/05/19 06:06; Admin Dose 40 MG; Start 01/17/19 at 06:00 Metronidazole 100 ml @ 100 mls/hr Q8 IVPB Last administered on 02/05/19 13:23; Admin Dose 100 MLS/HR; Start 01/16/19 at 22:00 Cefepime HCl 50 ml @ 100 mls/hr Q12 IVPB Last administered on 02/05/19 09:17; Admin Dose 100 MLS/HR; Start 01/17/19 at 21:00 Oxycodone HCl (Oxycontin) 10 mg BID PO Last administered on 02/05/19 09:19; Admin Dose 10 MG; Start 01/18/19 at 15:00 Furosemide (Lasix) 20 mg BID DIURETICS IV Last administered on 02/04/19 17:49; Admin Dose 20 MG; Start 01/21/19 at 18:30 Vancomycin HCl 1.25 gm/Sodium Chloride 250 ml @ 83.333 mls/ hr Q12H IVPB Last administered on 02/05/19 13:32; Admin Dose 83.333 MLS/HR; Start 01/25/19 at 01:00 Insulin Aspart (Novolog Insulin Pen) NOVOLOG *MODERATE* ALGORITHM WITH MEALS BEDTIME SC Last administered on 5/29/19at 21:00; Admin Dose 3 UNIT; Start 01/26/19 at 21:00 IV Flush (NS 10 ml) 10 ml PRN PRN IV IV PROTOCOL; Start 01/29/19 at 17:00 Hydromorphone HCl (Dilaudid) 1 mg Q4H PRN IV SEVERE PAIN LEVEL 7-10 Last administered on 02/05/19at 11:16; Admin Dose 1 MG; Start 02/02/19 at 15:30 RAMESH SOLROZANO February 05, 2019 14:58
--- NOTE | 2019-02-05 19:00 | CONS ---
Assessment/Plan Assessment/Plan Hospital Course (Demo Recall) IMP: 1.Pre-op for peripheral bypass surgery. Lexiscan with no ischemia/+scar EF 28%. Echo EF 25%. OK to proceed to surgery at moderate CV risk 2.Cardiomyopathy with low EF-severely depressed by echo this admit 3.HTN 4.HL 5.Non-healing LE ulcer 6.PAD-severe s/p prior [employer] 7.DM 8. 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 Recc: -ON tele -Continue digoxin -Continue coreg and zestril as tolerated only for treatment of cardiomyopathy -Continue amiodarone -Continue abx's and f/u cx data -Follow volume status closely and continue lasix diuresis -local wound care -pnding LE bypass when patient stable. Pedro transferred to SNF and to return for surgery at later date -transfuse PRBC's as neccessary -further outpatient eval of likely GIST tumor Consultation Date/Type/Reason Admit Date/Time January 09, 2019 at 18:17 Initial Consult Date 01/10/19 Type of Consult Cardiology Reason for Consultation CHF Requesting Provider: KRISTIN PRYOR MD Date/Time of Note DATE: 02/05/19 TIME: 18:58 Exam/Review of Systems Vital Signs Vitals Vital Signs Date Temp Pulse Resp B/P (MAP) Pulse Ox O2 O2 Flow FiO2 Time Delivery Rate 02/05/19 78 16:00 02/05/19 98.0 18 110/65 98 Room Air 15:14 (80) Intake and Output 02/04/19 02/04/19 02/05/19 1515:00 23:00 07:00 IntakeIntake Total 50 ml 250 ml 300 ml OutputOutput Total 800 ml 1100 ml BalanceBalance 50 ml -550 ml -800 ml Exam Exam Review of Systems: CONSTITUTIONAL: No fevers, chills. PULMONARY: No sob CARDIOVASCULAR: No chest pain/palpitations GASTROINTESTINAL: No nausea/vomiting. GENITOURINARY: No hematuria/dysuria. MUSCULOSKELETAL: No myagias/arthalgias. PSYCHIATRIC: The patient denies depression. NEUROLOGIC: No weakness Constitutional: alert Psych: no complaints Head: normocephalic ENMT: mucosa pink and moist Neck: supple, jvd (9 cm water) Respiratory: diminished breath sounds (at bases/B) Cardiovascular: regular rate and rhythm Gastrointestinal: soft, non-tender Musculoskeletal: muscle tone (normal) Extremities: edema (bilateral LE, foot covered by dressing) Labs Result Diagram: 02/01/1946 02/01/19 0548 Results 24hrs Laboratory Tests Test 02/04/19 20:38 02/05/19 02:43 02/05/19 05:49 02/05/19 08:08 Bedside Glucose 261 H 107 95 Erythrocyte 23.0 H Sedimentation Rate Test 02/05/19 12:19 02/05/19 17:22 Bedside Glucose 117 130 Vancomycin Level 12.6 Trough Medications Medications Current Medications Amiodarone HCl (Cordarone) 200 mg DAILY PO Last administered on 02/04/19 08:55; Admin Dose 200 MG; Start 01/10/19 at 09:00 Digoxin (Digoxin) 0.125 mg DAILY@1300 PO Last administered on 02/05/19 13:39; Admin Dose 0.125 MG; Start 01/10/19 at 13:00 Gabapentin (Neurontin) 600 mg DAILY PO Last administered on 02/05/19 09:18; Admin Dose 600 MG; Start 01/10/19 at 09:00 Empaglifozin (Jardiance) 25 mg DAILY PO Last administered on 02/05/19 09:18; Admin Dose 25 MG; Start 01/10/19 at 09:00 Linagliptin (Tradjenta) 5 mg DAILY PO Last administered on 02/05/19 09:19; Admin Dose 5 MG; Start 01/10/19 at 09:00 Diagnostic Test (Pha) (Accu-Chek) 1 ea AC MEALS AND BEDTIME XX Last administered on 02/05/19 16:54; Admin Dose 1 EA; Start 01/09/19 at 21:00 Acetaminophen (Tylenol Tab) 650 mg Q4H PRN PO MILD PAIN(1-3)OR ELEVATED TEMP; Start 01/09/19 at 20:30 Ondansetron HCl (Zofran Inj) 4 mg Q6H PRN IV NAUSEA AND/OR VOMITING Last administered on 01/14/19 19:59; Admin Dose 4 MG; Start 01/09/19 at 20:30 Diagnostic Test (Pha) (Accu-Chek) 1 ea 02 XX Last administered on 02/05/19 02:59; Admin Dose 1 EA; Start 01/10/19 at 02:00 Miscellaneous Information 1 ea NOTE XX ; Start 01/09/19 at 21:30 Glucose (Glutose) 15 gm Q15M PRN PO DECREASED GLUCOSE; Start 01/09/19 at 21:30 Glucose (Glutose) 22.5 gm Q15M PRN PO DECREASED GLUCOSE; Start 01/09/19 at 21:30 Dextrose (D50w Syringe) 25 ml Q15M PRN IV DECREASED GLUCOSE; Start 01/09/19 at 21:30 Dextrose (D50w Syringe) 50 ml Q15M PRN IV DECREASED GLUCOSE; Start 01/09/19 at 21:30 Glucagon (Glucagen) 1 mg Q15M PRN IM DECREASED GLUCOSE; Start 01/09/19 at 21:30 Glucose (Glutose) 15 gm Q15M PRN BUCCAL DECREASED GLUCOSE; Start 01/09/19 at 21 :30 Insulin Glargine (Lantus) 18 units QHS SC Last administered on 02/04/19at 21:00; Admin Dose 18 UNITS; Start 01/09/19 at 22:30 Carvedilol (Coreg) 3.125 mg BID PO Last administered on 02/01/19at 20:05; Admin Dose 3.125 MG; Start 01/10/19 at 21:00 Vancomycin HCl (Vanco Iv Per Pharmacy) VANCOMYCIN PER PHARMACY PER PROTOCOL XX ; Start 01/11/19 at 02:30 Lisinopril (Zestril) 2.5 mg DAILY PO Last administered on 02/04/19at 08:55; Admin Dose 2.5 MG; Start 01/13/19 at 09:00 Senna (Senokot) 1 tab DAILY PRN PO CONSTIPATION Last administered on 01/28/19at 21:36; Admin Dose 1 TAB; Start 01/12/19 at 18:30 Docusate Sodium (Colace) 100 mg BID PRN PO CONSTIPATION Last administered on 02/05/19at 09:19; Admin Dose 100 MG; Start 01/12/19 at 18:30 Neomycin/ Polymyxin/ Bacitracin (Neosporin Topical Oint) 1 applic DAILY TOP Last administered on 02/04/19at 08:56; Admin Dose 1 APPLIC; Start 01/12/19 at 18:30 Cyanocobalamin (Vitamin B12 Inj) 1,000 mcg DAILY IM Last administered on 02/05/19 09:18; Admin Dose 1,000 MCG; Start 01/16/19 at 09:00 Pantoprazole (Protonix Tab) 40 mg DAILY@06 PO Last administered on 02/05/19 06:06; Admin Dose 40 MG; Start 01/17/19 at 06:00 Metronidazole 100 ml @ 100 mls/hr Q8 IVPB Last administered on 02/05/19 13:23; Admin Dose 100 MLS/HR; Start 01/16/19 at 22:00 Cefepime HCl 50 ml @ 100 mls/hr Q12 IVPB Last administered on 02/05/19 09:17; Admin Dose 100 MLS/HR; Start 01/17/19 at 21:00 Oxycodone HCl (Oxycontin) 10 mg BID PO Last administered on 02/05/19 09:19; Admin Dose 10 MG; Start 01/18/19 at 15:00 Furosemide (Lasix) 20 mg BID DIURETICS IV Last administered on 02/05/19 17:22; Admin Dose 20 MG; Start 01/21/19 at 18:30 Vancomycin HCl 1.25 gm/Sodium Chloride 250 ml @ 83.333 mls/ hr Q12H IVPB Last administered on 02/05/19 13:32; Admin Dose 83.333 MLS/HR; Start 01/25/19 at 01:00 Insulin Aspart (Novolog Insulin Pen) NOVOLOG *MODERATE* ALGORITHM WITH MEALS B EDTIME SC Last administered on 02/04/19 21:00; Admin Dose 3 UNIT; Start 01/26/19 at 21:00 IV Flush (NS 10 ml) 10 ml PRN PRN IV IV PROTOCOL; Start 01/29/19 at 17:00 Hydromorphone HCl (Dilaudid) 1 mg Q4H PRN IV SEVERE PAIN LEVEL 7-10 Last administered on 02/05/19 15:32; Admin Dose 1 MG; Start 02/02/19 at 15:30 VERO ARELLANO February 05, 2019 19:00
[2019-02-05] MEDS: INSULIN GLARGINE [LANTus] (100 UNITS/ML) SYG SC SCH (21:46)
[2019-02-06] VITALS (11 sets, daily range): BP systolic 93–129; BP diastolic 55–65; PULSE 67–91; RESP 18–20
[2019-02-06] MEDS: ACCU-CHEK XX SCH ×5 (01:03→21:44)
[2019-02-06] MEDS: VANCOMYCIN HCL 1.25 GM in SOD CHLORIDE 0.9% 250 ML IVPB SCH ×2 (01:08→12:07)
[2019-02-06] MEDS: HYDROmorphONE 1 MG/ML SYG IV PRN ×6 (01:32→21:33)
[2019-02-06] MEDS: metroNIDAZOLE 500 MG/NS (PMX) 100 ML IVPB SCH ×3 (06:45→21:55)
[2019-02-06] MEDS: PANTOPRAZOLE (EC) 40 MG TAB PO SCH (06:45)
[2019-02-06] MEDS: FUROSEMIDE 20 MG INJ IV SCH ×2 (06:46→16:43)
[2019-02-06] MEDS: INSULIN ASPART [NOVOLOG] 3 ML PEN SC SCH ×4 (07:55→21:00)
[2019-02-06] MEDS: NEOMYC/POLYMYX/BACIT 30 GM OINT TOP SCH (08:04)
[2019-02-06] MEDS: CYANOCOBALAMIN 1000 MCG INJ IM SCH (08:04)
[2019-02-06] MEDS: CEFEPIME 2GM/50 ML (PMX) 50 ML IVPB SCH ×2 (08:05→21:54)
[2019-02-06] MEDS: EMPAGLIFLOZIN 10 MG TABLET PO SCH (08:05)
[2019-02-06] MEDS: GABAPENTIN 300 MG CAP PO SCH (08:05)
[2019-02-06] MEDS: AMIODARONE 200 MG TAB PO SCH (08:05)
[2019-02-06] MEDS: LISINOPRIL 5 MG TAB PO SCH (08:06)
[2019-02-06] MEDS: oxyCODONE (CR) 10 MG TAB [oxyCONTIN] PO SCH ×2 (08:06→21:32)
[2019-02-06] MEDS: LINAGLIPTIN 5 MG TABLET PO SCH (08:06)
--- NOTE | 2019-02-06 08:11 | PN ---
Date/Time of Note Date/Time of Note DATE: 02/06/19 TIME: 08:10 Assessment/Plan VTE Prophylaxis Risk score (from Ns)>0 risk: 3 [place] [facility] [place]CD contraindicated: other Pharmacological prophylaxis: other Pharm contraindication: other Lines/Catheters IV Catheter Type (from [facility]): PICC Line Central line still needed: Yes Urinary Cath still in place: No Assessment/Plan Assessment/Plan -Gastric mass which is is clinically consistent with GIST tumor per EGD per Dr Roberts. EUS and FNA as an outpatient to confirm GIST tumor diagnosis. Continue PPI. -New onset of anemia and hypotension requiring blood transfusion on 01/15/2019, stool for OB is negative. -Right heel necrotic wound. Dr. Mata is following in podiatry consultation. Status post debridement. Continue antibiotics per ID. Dr. Urbano is following in infection disease consultation. Will require total of 6 weeks of Vancomycin IV, Cefepime IV, and Flagyl IV through 02/22/19. -Chronic peripheral vascular disease, history of angioplasty x2. Dr. Sheppard is following in vascular surgery consultation. Plan for a right pop DP bypass as an outpatient. -Coronary artery disease, status post coronary artery bypass graft. -Cardiomyopathy with ejection fraction of 25%. Continue Coreg. Dr. Foster is following in cardiology consultation. -Status post AICD. -Hx of Hypertension. -Diabetes hemoglobin A1c 7.6. Continue Lantus and NovoLog. -Right knee contusion and abrasion status post fall. Status post evaluation by Dr. Zelaya and orthopedic surgery. No signs of fracture or dystrophic dislocation. -Chronic low back pain with significant spondylolisthesis grade II at the level of L5 to S1. Further recommendations based on clinical course. Plan of care discussed with Dr. Mann. Results 24hrs Laboratory Tests Test 02/05/19 12:19 02/05/19 17:22 02/05/19 21:14 02/06/19 08:03 Bedside Glucose 117 130 131 120 Vancomycin Level 12.6 Trough Subjective 24 Hr Interval Summary Free Text/Dictation resting feels/ better no gi a bleed reported Eyes: no complaints ENT: no complaints Respiratory: no complaints Cardiovascular: no complaints Musculoskeletal: no complaints Skin: no complaints Neurologic: no complaints Endocrine: no complaints Lymphatic: no complaints Psychological: nl mood/affect Immunologic: no complaints ( ), immunodeficiency Exam/Review of Systems Exam Vitals Vital Signs Date Temp Pulse Resp B/P (MAP) Pulse Ox O2 O2 Flow FiO2 Time Delivery Rate 02/06/19 98.5 67 18 93/59 (70) 90 Room Air 07:33 Intake and Output 02/05/19 02/05/19 02/06/19 1515:00 23:00 07:00 IntakeIntake Total 860 ml 700 ml OutputOutput Total 1020 ml 650 ml BalanceBalance -160 ml 50 ml Constitutional: alert, well developed, obese Psych: nl mood/affect Eyes: nl lids, nl sclera ENMT: nl external ears & nose Respiratory: clear to auscultation Cardiovascular: nl pulses, other (S1S2) Gastrointestinal: non-tender Musculoskeletal: joint tenderness, range of motion Extremities: edema, other (right heel ) 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: nl speech, other (ALERT/RESPONSIVE) Results Results 24hrs Laboratory Tests Test 02/05/19 12:19 02/05/19 17:22 02/05/19 21:14 02/06/19 08:03 Bedside Glucose 117 130 131 120 Vancomycin Level 12.6 Trough Medications Medication Current Medications Amiodarone HCl (Cordarone) 200 mg DAILY PO Last administered on 02/06/19 08:05; Admin Dose 200 MG; Start 01/10/19 at 09:00 Digoxin (Digoxin) 0.125 mg DAILY@1300 PO Last administered on 02/05/19 13:39; Admin Dose 0.125 MG; Start 01/10/19 at 13:00 Gabapentin (Neurontin) 600 mg DAILY PO Last administered on 02/06/19 08:05; Admin Dose 600 MG; Start 01/10/19 at 09:00 Empaglifozin (Jardiance) 25 mg DAILY PO Last administered on 02/06/19 08:05; Admin Dose 25 MG; Start 01/10/19 at 09:00 Linagliptin (Tradjenta) 5 mg DAILY PO Last administered on 02/06/19 08:06; Admin Dose 5 MG; Start 01/10/19 at 09:00 Diagnostic Test (Pha) (Accu-Chek) 1 ea AC MEALS AND BEDTIME XX Last administe red on 02/05/19at 21:15; Admin Dose 1 EA; Start 01/09/19 at 21:00 Acetaminophen (Tylenol Tab) 650 mg Q4H PRN PO MILD PAIN(1-3)OR ELEVATED TEMP; Start 01/09/19 at 20:30 Ondansetron HCl (Zofran Inj) 4 mg Q6H PRN IV NAUSEA AND/OR VOMITING Last administered on 01/14/19 19:59; Admin Dose 4 MG; Start 01/09/19 at 20:30 Diagnostic Test (Pha) (Accu-Chek) 1 ea 02 XX Last administered on 02/05/19at 02:59; Admin Dose 1 EA; Start 01/10/19 at 02:00 Miscellaneous Information 1 ea NOTE XX ; Start 01/09/19 at 21:30 Glucose (Glutose) 15 gm Q15M PRN PO DECREASED GLUCOSE; Start 01/09/19 at 21:30 Glucose (Glutose) 22.5 gm Q15M PRN PO DECREASED GLUCOSE; Start 01/09/19 at 21:30 Dextrose (D50w Syringe) 25 ml Q15M PRN IV DECREASED GLUCOSE; Start 01/09/19 at 21:30 Dextrose (D50w Syringe) 50 ml Q15M PRN IV DECREASED GLUCOSE; Start 01/09/19 at 21:30 Glucagon (Glucagen) 1 mg Q15M PRN IM DECREASED GLUCOSE; Start 01/09/19 at 21:30 Glucose (Glutose) 15 gm Q15M PRN BUCCAL DECREASED GLUCOSE; Start 01/09/19 at 21:30 Insulin Glargine (Lantus) 18 units QHS SC Last administered on 02/05/19at 21:46; Admin Dose 18 UNITS; Start 01/09/19 at 22:30 Carvedilol (Coreg) 3.125 mg BID PO Last administered on 02/01/19at 20:05; Admin Dose 3.125 MG; Start 01/10/19 at 21:00 Vancomycin HCl (Vanco Iv Per Pharmacy) VANCOMYCIN PER PHARMACY PER PROTOCOL XX ; Start 01/11/19 at 02:30 Lisinopril (Zestril) 2.5 mg DAILY PO Last administered on 02/04/19at 08:55; Admin Dose 2.5 MG; Start 01/13/19 at 09:00 Senna (Senokot) 1 tab DAILY PRN PO CONSTIPATION Last administered on 01/28/19at 21:36; Admin Dose 1 TAB; Start 01/12/19 at 18:30 Docusate Sodium (Colace) 100 mg BID PRN PO CONSTIPATION Last administered on 02/05/19 09:19; Admin Dose 100 MG; Start 01/12/19 at 18:30 Neomycin/ Polymyxin/ Bacitracin (Neosporin Topical Oint) 1 applic DAILY TOP Last administered on 02/06/19 08:04; Admin Dose 1 APPLIC; Start 01/12/19 at 18:30 Cyanocobalamin (Vitamin B12 Inj) 1,000 mcg DAILY IM Last administered on 02/06/19 08:04; Admin Dose 1,000 MCG; Start 01/16/19 at 09:00 Pantoprazole (Protonix Tab) 40 mg DAILY@06 PO Last administered on 02/06/19 06:45; Admin Dose 40 MG; Start 01/17/19 at 06:00 Metronidazole 100 ml @ 100 mls/hr Q8 IVPB Last administered on 02/06/19 06:45; Admin Dose 100 MLS/HR; Start 01/16/19 at 22:00 Cefepime HCl 50 ml @ 100 mls/hr Q12 IVPB Last administered on 02/06/19 08:05; Admin Dose 100 MLS/HR; Start 01/17/19 at 21:00 Oxycodone HCl (Oxycontin) 10 mg BID PO Last administered on 02/06/19 08:06; Admin Dose 10 MG; Start 01/18/19 at 15:00 Furosemide (Lasix) 20 mg BID DIURETICS IV Last administered on 02/06/19 06:46; Admin Dose 20 MG; Start 01/21/19 at 18:30 Vancomycin HCl 1.25 gm/Sodium Chloride 250 ml @ 83.333 mls/ hr Q12H IVPB Last administered on 02/06/19 01:08; Admin Dose 83.333 MLS/HR; Start 01/25/19 at 01:00 Insulin Aspart (Novolog Insulin Pen) NOVOLOG *MODERATE* ALGORITHM WITH MEALS BEDTIME SC Last administered on 02/04/19 21:00; Admin Dose 3 UNIT; Start 01/26/19 at 21:00 IV Flush (NS 10 ml) 10 ml PRN PRN IV IV PROTOCOL; Start 01/29/19 at 17:00 Hydromorphone HCl (Dilaudid) 1 mg Q4H PRN IV SEVERE PAIN LEVEL 7-10 Last administered on 02/06/19at 05:29; Admin Dose 1 MG; Start 02/02/19 at 15:30 MARTINE PUENTES February 06, 2019 08:11
--- NOTE | 2019-02-06 10:41 | CONS ---
Assessment/Plan Assessment/Plan Hospital Course (Demo Recall) 63-year-old gentleman with history of coronary artery disease, status post CABG, also status post AICD placement, hypertension, diabetes, peripheral vascular disease, status post aortogram and right lower extremity runoff and percutaneous angioplasty of the posterior tibial artery and anterior tibial artery in 10/2018. Patient has a worsening RLE heel wound and thus admitted for sepsis. #Gastric mass -pt to have EUS and FNA ans an out patient. 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 Coli, Proteus, and Enterococcus -h/o 6 weeks of IV vancomycin and ceftriaxone in 2018 - Plan for a right pop DP bypass as an outpatient. # Anemia-normocytic -Hg currently stable > 9 -likely 2/2 GI bleed -continue to hold all blood thinners -CT A/P does not reveal evidence of bleed -f/u endoscopy. pt was found with a T3.5 cm mass/filling defect arising along the lesser curvature of the stomach - consistent with GIST tumor Consultation Date/Type/Reason Admit Date/Time January 09, 2019 at 18:17 Initial Consult Date 01/16/19 Type of Consult oncology Reason for Consultation GIST tumor Requesting Provider: KRISTIN PRYOR MD Date/Time of Note DATE: 02/06/19 TIME: 10:40 24 HR Interval Summary Free Text/Dictation no acute overnight events. continues on antibiotics Exam/Review of Systems Exam Vitals Vital Signs Date Temp Pulse Resp B/P (MAP) Pulse Ox O2 O2 Flow FiO2 Time Delivery Rate 02/06/19 98.5 67 18 93/59 (70) 90 Room Air 07:33 Intake and Output 02/05/19 02/05/19 02/06/19 1515:00 23:00 07:00 IntakeIntake Total 860 ml 700 ml OutputOutput Total 1020 ml 650 ml BalanceBalance -160 ml 50 ml Constitutional: alert, oriented Psych: no complaints Head: normocephalic Eyes: nl conjunctiva ENMT: nl external ears & nose Neck: supple Respiratory: clear to auscultation Cardiovascular: regular rate and rhythm Gastrointestinal: soft Musculoskeletal: nl extremities to inspection Extremities: other (right heel non healing wound) Results Results 24hrs Laboratory Tests Test 02/05/19 12:19 02/05/19 17:22 02/05/19 21:14 02/06/19 08:03 Bedside Glucose 117 130 131 120 Vancomycin Level 12.6 Trough Medications Medication Current Medications Amiodarone HCl (Cordarone) 200 mg DAILY PO Last administered on 02/06/19 08:05; Admin Dose 200 MG; Start 01/10/19 at 09:00 Digoxin (Digoxin) 0.125 mg DAILY@1300 PO Last administered on 02/05/19 13:39; Admin Dose 0.125 MG; Start 01/10/19 at 13:00 Gabapentin (Neurontin) 600 mg DAILY PO Last administered on 02/06/19 08:05; Admin Dose 600 MG; Start 01/10/19 at 09:00 Empaglifozin (Jardiance) 25 mg DAILY PO Last administered on 02/06/19 08:05; Admin Dose 25 MG; Start 01/10/19 at 09:00 Linagliptin (Tradjenta) 5 mg DAILY PO Last administered on 02/06/19 08:06; Admin Dose 5 MG; Start 01/10/19 at 09:00 Diagnostic Test (Pha) (Accu-Chek) 1 ea AC MEALS AND BEDTIME XX Last administered on 02/05/19 21:15; Admin Dose 1 EA; Start 01/09/19 at 21:00 Acetaminophen (Tylenol Tab) 650 mg Q4H PRN PO MILD PAIN(1-3)OR ELEVATED TEMP; Start 01/09/19 at 20:30 Ondansetron HCl (Zofran Inj) 4 mg Q6H PRN IV NAUSEA AND/OR VOMITING Last administered on 01/14/19 19:59; Admin Dose 4 MG; Start 01/09/19 at 20:30 Diagnostic Test (Pha) (Accu-Chek) 1 ea 02 XX Last administered on 02/05/19 02:59; Admin Dose 1 EA; Start 01/10/19 at 02:00 Miscellaneous Information 1 ea NOTE XX ; Start 01/09/19 at 21:30 Glucose (Glutose) 15 gm Q15M PRN PO DECREASED GLUCOSE; Start 01/09/19 at 21:30 Glucose (Glutose) 22.5 gm Q15M PRN PO DECREASED GLUCOSE; Start 01/09/19 at 21:30 Dextrose (D50w Syringe) 25 ml Q15M PRN IV DECREASED GLUCOSE; Start 01/09/19 at 21:30 Dextrose (D50w Syringe) 50 ml Q15M PRN IV DECREASED GLUCOSE; Start 01/09/19 at 21:30 Glucagon (Glucagen) 1 mg Q15M PRN IM DECREASED GLUCOSE; Start 01/09/19 at 21:30 Glucose (Glutose) 15 gm Q15M PRN BUCCAL DECREASED GLUCOSE; Start 01/09/19 at 21:30 Insulin Glargine (Lantus) 18 units QHS SC Last administered on 02/05/19 21:46; Admin Dose 18 UNITS; Start 01/09/19 at 22:30 Carvedilol (Coreg) 3.125 mg BID PO Last administered on 02/01/19 20:05; Admin Dose 3.125 MG; Start 01/10/19 at 21:00 Vancomycin HCl (Vanco Iv Per Pharmacy) VANCOMYCIN PER PHARMACY PER PROTOCOL XX ; Start 01/11/19 at 02:30 Lisinopril (Zestril) 2.5 mg DAILY PO Last administered on 02/04/19 08:55; Admin Dose 2.5 MG; Start 01/13/19 at 09:00 Senna (Senokot) 1 tab DAILY PRN PO CONSTIPATION Last administered on 01/28/19 21:36; Admin Dose 1 TAB; Start 01/12/19 at 18:30 Docusate Sodium (Colace) 100 mg BID PRN PO CONSTIPATION Last administered on 02/05/19 09:19; Admin Dose 100 MG; Start 01/12/19 at 18:30 Neomycin/ Polymyxin/ Bacitracin (Neosporin Topical Oint) 1 applic DAILY TOP Last administered on 02/06/19 08:04; Admin Dose 1 APPLIC; Start 01/12/19 at 18:30 Cyanocobalamin (Vitamin B12 Inj) 1,000 mcg DAILY IM Last administered on 02/06/19 08:04; Admin Dose 1,000 MCG; Start 01/16/19 at 09:00 Pantoprazole (Protonix Tab) 40 mg DAILY@06 PO Last administered on 02/06/19 06:45; Admin Dose 40 MG; Start 01/17/19 at 06:00 Metronidazole 100 ml @ 100 mls/hr Q8 IVPB Last administered on 02/06/19 06:45; Admin Dose 100 MLS/HR; Start 01/16/19 at 22:00 Cefepime HCl 50 ml @ 100 mls/hr Q12 IVPB Last administered on 02/06/19 08:05; Admin Dose 100 MLS/HR; Start 01/17/19 at 21:00 Oxycodone HCl (Oxycontin) 10 mg BID PO Last administered on 02/06/19 08:06; Admin Dose 10 MG; Start 01/18/19 at 15:00 Furosemide (Lasix) 20 mg BID DIURETICS IV Last administered on 02/06/19 06:46; Admin Dose 20 MG; Start 01/21/19 at 18:30 Vancomycin HCl 1.25 gm/Sodium Chloride 250 ml @ 83.333 mls/ hr Q12H IVPB Last administered on 02/06/19 01:08; Admin Dose 83.333 MLS/HR; Start 01/25/19 at 01:00 Insulin Aspart (Novolog Insulin Pen) NOVOLOG *MODERATE* ALGORITHM WITH MEALS BEDTIME SC Last administered on 02/04/19 21:00; Admin Dose 3 UNIT; Start 01/26/19 at 21:00 IV Flush (NS 10 ml) 10 ml PRN PRN IV IV PROTOCOL; Start 01/29/19 at 17:00 Hydromorphone HCl (Dilaudid) 1 mg Q4H PRN IV SEVERE PAIN LEVEL 7-10 Last adm inistered on 02/06/19 09:33; Admin Dose 1 MG; Start 02/02/19 at 15:30 TJ QUINTERO M.D. February 06, 2019 10:41
[2019-02-06] MEDS: DIGOXIN 0.125 MG TAB PO SCH (12:07)
--- NOTE | 2019-02-06 16:17 | CONS ---
Assessment/Plan Assessment/Plan Hospital Course (Demo Recall) IMP: 1.Pre-op for peripheral bypass surgery. Lexiscan with no ischemia/+scar EF 28%. Echo EF 25%. 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 Recc: -ON tele -Continue digoxin -Continue coreg and zestril as tolerated only for treatment of cardiomyopathy -Continue amiodarone -Continue abx's and f/u cx data -Follow volume status closely and continue lasix diuresis -local wound care -pnding LE bypass? date/timing -transfuse PRBC's as neccessary -further outpatient eval of likely GIST tumor -venous Shannon to r/o DVT given assymetric Le edema Consultation Date/Type/Reason Admit Date/Time January 09, 2019 at 18:17 Initial Consult Date 01/10/19 Type of Consult Cardiology Reason for Consultation Preop/cardiomyopathy Requesting Provider: KRISTIN PRYOR MD Date/Time of Note DATE: 02/06/19 TIME: 16:14 Exam/Review of Systems Vital Signs Vitals Vital Signs Date Temp Pulse Resp B/P (MAP) Pulse Ox O2 O2 Flow FiO2 Time Delivery Rate 02/06/19 98.5 78 18 129/65 98 15:28 (86) 02/06/19 Room Air 07:33 Intake and Output 02/05/19 02/05/19 02/06/19 1515:00 23:00 07:00 IntakeIntake Total 860 ml 700 ml OutputOutput Total 1020 ml 650 ml BalanceBalance -160 ml 50 ml Exam Exam Review of Systems: CONSTITUTIONAL: No fevers, chills. PULMONARY: No sob CARDIOVASCULAR: No chest pain/palpitations GASTROINTESTINAL: No nausea/vomiting. GENITOURINARY: No hematuria/dysuria. MUSCULOSKELETAL: No myagias/arthalgias. PSYCHIATRIC: The patient denies depression. NEUROLOGIC: No weakness Constitutional: alert Psych: no complaints Head: normocephalic ENMT: mucosa pink and moist Neck: supple, jvd (9 cm water) Respiratory: diminished breath sounds Cardiovascular: regular rate and rhythm Gastrointestinal: soft, non-tender Musculoskeletal: muscle tone (normal) Extremities: pitting pedal edema (R>L), other (LLE covered by dressing) 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: other (No focal deficits) Labs Results 24hrs Laboratory Tests Test 02/05/19 17:22 02/05/19 21:14 02/06/19 08:03 02/06/19 11:49 Bedside Glucose 130 131 120 150 Medications Medications Current Medications Amiodarone HCl (Cordarone) 200 mg DAILY PO Last administered on 02/06/19 08:05; Admin Dose 200 MG; Start 01/10/19 at 09:00 Digoxin (Digoxin) 0.125 mg DAILY@1300 PO Last administered on 02/06/19 12:07; Admin Dose 0.125 MG; Start 01/10/19 at 13:00 Gabapentin (Neurontin) 600 mg DAILY PO Last administered on 02/06/19 08:05; Admin Dose 600 MG; Start 01/10/19 at 09:00 Empaglifozin (Jardiance) 25 mg DAILY PO Last administered on 02/06/19 08:05; Admin Dose 25 MG; Start 01/10/19 at 09:00 Linagliptin (Tradjenta) 5 mg DAILY PO Last administered on 02/06/19 08:06; Admin Dose 5 MG; Start 01/10/19 at 09:00 Diagnostic Test (Pha) (Accu-Chek) 1 ea AC MEALS AND BEDTIME XX Last administered on 02/05/19 21:15; Admin Dose 1 EA; Start 01/09/19 at 21:00 Acetaminophen (Tylenol Tab) 650 mg Q4H PRN PO MILD PAIN(1-3)OR ELEVATED TEMP; Start 01/09/19 at 20:30 Ondansetron HCl (Zofran Inj) 4 mg Q6H PRN IV NAUSEA AND/OR VOMITING Last administered on 01/14/19 19:59; Admin Dose 4 MG; Start 01/09/19 at 20:30 Diagnostic Test (Pha) (Accu-Chek) 1 ea 02 XX Last administered on 02/05/19 02:59; Admin Dose 1 EA; Start 01/10/19 at 02:00 Miscellaneous Information 1 ea NOTE XX ; Start 01/09/19 at 21:30 Glucose (Glutose) 15 gm Q15M PRN PO DECREASED GLUCOSE; Start 01/09/19 at 21:30 Glucose (Glutose) 22.5 gm Q15M PRN PO DECREASED GLUCOSE; Start 01/09/19 at 21:30 Dextrose (D50w Syringe) 25 ml Q15M PRN IV DECREASED GLUCOSE; Start 01/09/19 at 21:30 Dextrose (D50w Syringe) 50 ml Q15M PRN IV DECREASED GLUCOSE; Start 01/09/19 at 21:30 Glucagon (Glucagen) 1 mg Q15M PRN IM DECREASED GLUCOSE; Start 01/09/19 at 21:30 Glucose (Glutose) 15 gm Q15M PRN BUCCAL DECREASED GLUCOSE; Start 01/09/19 at 21:30 Insulin Glargine (Lantus) 18 units QHS SC Last administered on 02/05/19 21:46; Admin Dose 18 UNITS; Start 01/09/19 at 22:30 Carvedilol (Coreg) 3.125 mg BID PO Last administered on 02/01/19 20:05; Admin Dose 3.125 MG; Start 01/10/19 at 21:00 Vancomycin HCl (Vanco Iv Per Pharmacy) VANCOMYCIN PER PHARMACY PER PROTOCOL XX ; Start 01/11/19 at 02:30 Lisinopril (Zestril) 2.5 mg DAILY PO Last administered on 02/04/19 08:55; Admin Dose 2.5 MG; Start 01/13/19 at 09:00 Senna (Senokot) 1 tab DAILY PRN PO CONSTIPATION Last administered on 01/28/19 21:36; Admin Dose 1 TAB; Start 01/12/19 at 18:30 Docusate Sodium (Colace) 100 mg BID PRN PO CONSTIPATION Last administered on 02/05/19 09:19; Admin Dose 100 MG; Start 01/12/19 at 18:30 Neomycin/ Polymyxin/ Bacitracin (Neosporin Topical Oint) 1 applic DAILY TOP Last administered on 02/06/19 08:04; Admin Dose 1 APPLIC; Start 01/12/19 at 18:30 Cyanocobalamin (Vitamin B12 Inj) 1,000 mcg DAILY IM Last administered on 02/06/19 08:04; Admin Dose 1,000 MCG; Start 01/16/19 at 09:00 Pantoprazole (Protonix Tab) 40 mg DAILY@06 PO Last administered on 02/06/19 06:45; Admin Dose 40 MG; Start 01/17/19 at 06:00 Metronidazole 100 ml @ 100 mls/hr Q8 IVPB Last administered on 02/06/19 14:00; Admin Dose 100 MLS/HR; Start 01/16/19 at 22:00 Cefepime HCl 50 ml @ 100 mls/hr Q12 IVPB Last administered on 02/06/19 08:05; Admin Dose 100 MLS/HR; Start 01/17/19 at 21:00 Oxycodone HCl (Oxycontin) 10 mg BID PO Last administered on 02/06/19 08:06; Admin Dose 10 MG; Start 01/18/19 at 15:00 Furosemide (Lasix) 20 mg BID DIURETICS IV Last administered on 02/06/19 06:46; Admin Dose 20 MG; Start 01/21/19 at 18:30 Vancomycin HCl 1.25 gm/Sodium Chloride 250 ml @ 83.333 mls/ hr Q12H IVPB Last administered on 02/06/19 12:07; Admin Dose 83.333 MLS/HR; Start 01/25/19 at 01:00 Insulin Aspart (Novolog Insulin Pen) NOVOLOG *MODERATE* ALGORITHM WITH MEALS BEDTIME SC Last administered on 02/06/19 12:12; Admin Dose 2 UNIT; Start 01/26/19 at 21:00 IV Flush (NS 10 ml) 10 ml PRN PRN IV IV PROTOCOL; Start 01/29/19 at 17:00 Hydromorphone HCl (Dilaudid) 1 mg Q4H PRN IV SEVERE PAIN LEVEL 7-10 Last administered on 02/06/19 13:15; Admin Dose 1 MG; Start 02/02/19 at 15:30 VERO ARELLANO February 06, 2019 16:17
--- NOTE | 2019-02-06 16:52 | CONS ---
Assessment/Plan Assessment/Plan Assessment/Plan (Daily) Assessment/Plan Assessment/Plan (Daily) 1. Right heel necrotic wound. -s/p debridement of rt foot, silvadene cream 2. Cardiomyopathy with ejection fraction of 20% to 30%. 3. Peripheral vascular disease status post PCI, right lower extremity. 4. Coronary artery disease status post coronary artery bypass graft. 5. Status post automatic implantable cardioverter-defibrillator. 6. Hypertension. 7. Diabetes mellitus. 8. Anemia. Patient has a significant drop in hematocrit. So far, clinically, there is no evidence of obvious GI bleeding. 9. Ovoid mass or filling defect arising from lesser curvature of stomach. -GIST tumor 10. Pt is pre op for peripheral artery bypass surgery which is on hold for now. 11. Back pain Plan EUS with FNA as outpatient to confirm GIST tumor diagnosis. Will likely need surgical removal of tumor in future. Spoke with patient today regarding GIST tumor Patient will be completing the course of antibiotic for his wound infection in the lower extremity Plan of care discussed the patient he understood and has agreed Monitor H&H Consultation Date/Type/Reason Admit Date/Time January 09, 2019 at 18:17 Initial Consult Date 01/16/19 Requesting Provider: KRISTIN PRYOR MD Date/Time of Note DATE: 02/06/19 TIME: 16:50 24 HR Interval Summary Free Text/Dictation Patient complains of low back pain No constipation no GI bleeding Exam/Review of Systems Exam Vitals Vital Signs Date Temp Pulse Resp B/P (MAP) Pulse Ox O2 O2 Flow FiO2 Time Delivery Rate 02/06/19 98.5 78 18 129/65 98 15:28 (86) 02/06/19 Room Air 07:33 Intake and Output 02/05/19 02/05/19 02/06/19 1515:00 23:00 07:00 IntakeIntake Total 860 ml 700 ml OutputOutput Total 1020 ml 650 ml BalanceBalance -160 ml 50 ml Constitutional: alert, oriented, well developed Psych: no complaints, nl mood/affect Head: normocephalic, atraumatic Eyes: nl conjunctiva, EOMI, nl lids, nl sclera, PERRL ENMT: nl external ears & nose, nl lips & teeth, nl nasal mucosa & septum Neck: supple, non-tender Respiratory: clear to auscultation, normal air movement Cardiovascular: regular rate and rhythm, nl pulses Gastrointestinal: soft, nl liver, spleen, non-tender Musculoskeletal: nl extremities to inspection, nl gait and stance Extremities: normal pulses 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: BLADE BONER II-XII intact, nl mental status, nl speech, nl strength Skin: nl turgor; No rash or lesions Lymph: nl lymph nodes Results Results 24hrs Laboratory Tests Test 02/05/19 17:22 02/05/19 21:14 02/06/19 08:03 02/06/19 11:49 Bedside Glucose 130 131 120 150 Test 02/06/19 16:42 Bedside Glucose 171 Medications Medication Current Medications Amiodarone HCl (Cordarone) 200 mg DAILY PO Last administered on 02/06/19 08:05; Admin Dose 200 MG; Start 01/10/19 at 09:00 Digoxin (Digoxin) 0.125 mg DAILY@1300 PO Last administered on 02/06/19 12:07; Admin Dose 0.125 MG; Start 01/10/19 at 13:00 Gabapentin (Neurontin) 600 mg DAILY PO Last administered on 02/06/19 08:05; Admin Dose 600 MG; Start 01/10/19 at 09:00 Empaglifozin (Jardiance) 25 mg DAILY PO Last administered on 02/06/19 08:05; Admin Dose 25 MG; Start 01/10/19 at 09:00 Linagliptin (Tradjenta) 5 mg DAILY PO Last administered on 02/06/19 08:06; A dmin Dose 5 MG; Start 01/10/19 at 09:00 Diagnostic Test (Pha) (Accu-Chek) 1 ea AC MEALS AND BEDTIME XX Last administered on 02/05/19 21:15; Admin Dose 1 EA; Start 01/09/19 at 21:00 Acetaminophen (Tylenol Tab) 650 mg Q4H PRN PO MILD PAIN(1-3)OR ELEVATED TEMP; Start 01/09/19 at 20:30 Ondansetron HCl (Zofran Inj) 4 mg Q6H PRN IV NAUSEA AND/OR VOMITING Last administered on 01/14/19 19:59; Admin Dose 4 MG; Start 01/09/19 at 20:30 Diagnostic Test (Pha) (Accu-Chek) 1 ea 02 XX Last administered on 5/30/19at 02:59; Admin Dose 1 EA; Start 01/10/19 at 02:00 Miscellaneous Information 1 ea NOTE XX ; Start 01/09/19 at 21:30 Glucose (Glutose) 15 gm Q15M PRN PO DECREASED GLUCOSE; Start 01/09/19 at 21:30 Glucose (Glutose) 22.5 gm Q15M PRN PO DECREASED GLUCOSE; Start 01/09/19 at 21:30 Dextrose (D50w Syringe) 25 ml Q15M PRN IV DECREASED GLUCOSE; Start 01/09/19 at 21:30 Dextrose (D50w Syringe) 50 ml Q15M PRN IV DECREASED GLUCOSE; Start 01/09/19 at 21:30 Glucagon (Glucagen) 1 mg Q15M PRN IM DECREASED GLUCOSE; Start 01/09/19 at 21:30 Glucose (Glutose) 15 gm Q15M PRN BUCCAL DECREASED GLUCOSE; Start 01/09/19 at 21:30 Insulin Glargine (Lantus) 18 units QHS SC Last administered on 02/05/19at 21:46; Admin Dose 18 UNITS; Start 01/09/19 at 22:30 Carvedilol (Coreg) 3.125 mg BID PO Last administered on 02/01/19at 20:05; Admin Dose 3.125 MG; Start 01/10/19 at 21:00 Vancomycin HCl (Vanco Iv Per Pharmacy) VANCOMYCIN PER PHARMACY PER PROTOCOL XX ; Start 01/11/19 at 02:30 Lisinopril (Zestril) 2.5 mg DAILY PO Last administered on 02/04/19at 08:55; Ad min Dose 2.5 MG; Start 01/13/19 at 09:00 Senna (Senokot) 1 tab DAILY PRN PO CONSTIPATION Last administered on 01/28/19at 21:36; Admin Dose 1 TAB; Start 01/12/19 at 18:30 Docusate Sodium (Colace) 100 mg BID PRN PO CONSTIPATION Last administered on 02/05/19at 09:19; Admin Dose 100 MG; Start 01/12/19 at 18:30 Neomycin/ Polymyxin/ Bacitracin (Neosporin Topical Oint) 1 applic DA[address] TOP [place] [facility] administered on 02/06/19at 08:04; Admin Dose 1 APPLIC; Start 01/12/19 at 18:30 Cyanocobalamin (Vitamin B12 Inj) 1,000 mcg DAILY IM Last administered on 02/06/19 08:04; Admin Dose 1,000 MCG; Start 01/16/19 at 09:00 Pantoprazole (Protonix Tab) 40 mg DAILY@06 PO Last administered on 02/06/19 06:45; Admin Dose 40 MG; Start 01/17/19 at 06:00 Metronidazole 100 ml @ 100 mls/hr Q8 IVPB Last administered on 02/06/19 14:00; Admin Dose 100 MLS/HR; Start 01/16/19 at 22:00 Cefepime HCl 50 ml @ 100 mls/hr Q12 IVPB Last administered on 02/06/19 08:05; Admin Dose 100 MLS/HR; Start 01/17/19 at 21:00 Oxycodone HCl (Oxycontin) 10 mg BID PO Last administered on 02/06/19 08:06; Admin Dose 10 MG; Start 01/18/19 at 15:00 Furosemide (Lasix) 20 mg BID DIURETICS IV Last administered on 02/06/19 06:46; Admin Dose 20 MG; Start 01/21/19 at 18:30 Vancomycin HCl 1.25 gm/Sodium Chloride 250 ml @ 83.333 mls/ hr Q12H IVPB Last administered on 02/06/19 12:07; Admin Dose 83.333 MLS/HR; Start 01/25/19 at 01:00 Insulin Aspart (Novolog Insulin Pen) NOVOLOG *MODERATE* ALGORITHM WITH MEALS BEDTIME SC Last administered on 02/06/19 12:12; Admin Dose 2 UNIT; Start 01/26/19 at 21:00 IV Flush (NS 10 ml) 10 ml PRN PRN IV IV PROTOCOL; Start 01/29/19 at 17:00 Hydromorphone HCl (Dilaudid) 1 mg Q4H PRN IV SEVERE PAIN LEVEL 7-10 Last administered on 02/06/19 13:15; Admin Dose 1 MG; Start 02/02/19 at 15:30 KACI TORRES MD February 06, 2019 16:52
--- NOTE | 2019-02-06 17:02 | CONS ---
Assessment/Plan Assessment/Plan Hospital Course (Demo Recall) - polymicrobial infection of non-healing ulcer of R heel. CT on 01/10/2019 did not show evidence of OM. ESR 26 on 01/09/2019 and 37 on 01/12/2019; superficial wound cx Pseudomonas, E. Coli, Enterococcus (isolated from broth only), scant Proteus, and scant CoNS. ESR 23 on 02/06/2019 - s/p Debridement of the right calcaneal ulceration 01/13/2019; intraop cx grew E. Coli, Proteus, and Enterococcus - chronic wound of R heel, in the past the wound culture grew E. coli - h/o OM of R foot, h/o 6 weeks of IV vancomycin and ceftriaxone in 2018. 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 I also recommend debridement of devitalized tissue of R heel - we recommend 6 weeks of Vancomycin iv (01/11/2019-), Cefepime iv (restart 01/17/2019-), and metronidazole IV (01/16/2019-) through 02/22/19 - If Pt goes home, IV metronidazole may be replaced with PO metronidazole - please check weekly CBC BMP and ESR while Pt's on IV antibiotics management d/w Pt Consultation Date/Type/Reason Admit Date/Time January 09, 2019 at 18:17 Initial Consult Date 01/10/19 Type of Consult ID Requesting Provider: KRISTIN PRYOR MD Date/Time of Note DATE: 02/06/19 TIME: 16:58 24 HR Interval Summary Constitutional: improved Detailed Summary Eyes: no complaints ENT: no complaints Respiratory: no complaints Cardiovascular: no complaints Gastrointestinal: no complaints Genitourinary: no complaints Musculoskeletal: other (more purulen ce from R heel) Neurologic: other (numbness of b/l LEs) Lymphatic: other (less lymphedema) Exam/Review of Systems Exam Vitals Vital Signs Date Temp Pulse Resp B/P (MAP) Pulse Ox O2 O2 Flow FiO2 Time Delivery Rate 02/06/19 98.5 78 18 129/65 98 15:28 (86) 02/06/19 Room Air 07:33 Intake and Output 02/05/19 02/05/19 02/06/19 1515:00 23:00 07:00 IntakeIntake Total 860 ml 700 ml OutputOutput Total 1020 ml 650 ml BalanceBalance -160 ml 50 ml Constitutional: alert, oriented, well developed Psych: no complaints, nl mood/affect Head: normocephalic, atraumatic Eyes: nl conjunctiva, nl lids, nl sclera ENMT: nl external ears & nose, nl nasal mucosa & septum, mucosa pink and moist Neck: supple Respiratory: clear to auscultation, normal air movement Cardiovascular: regular rate and rhythm, nl pulses Gastrointestinal: soft Musculoskeletal: other (R heel: devitalized tossie with pale layer on top) Extremities: edema (mild, R>L) 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, nl mental status, nl speech, nl strength Skin: nl turgor; No rash or lesions Results Results 24hrs Laboratory Tests Test 02/05/19 17:22 02/05/19 21:14 02/06/19 08:03 02/06/19 11:49 Bedside Glucose 130 131 120 150 Test 02/06/19 16:42 Bedside Glucose 171 Medications Medication Current Medications Amiodarone HCl (Cordarone) 200 mg DAILY PO Last administered on 02/06/19at 08:05; Admin Dose 200 MG; Start 01/10/19 at 09:00 Digoxin (Digoxin) 0.125 mg DAILY@1300 PO Last administered on 02/06/19at 12:07; Admin Dose 0.125 MG; Start 01/10/19 at 13:00 Gabapentin (Neurontin) 600 mg DAILY PO Last administered on 02/06/19at 08:05; Admin Dose 600 MG; Start 01/10/19 at 09:00 Empaglifozin (Jardiance) 25 mg DAILY PO Last administered on 02/06/19at 08:05; Admin Dose 25 MG; Start 01/10/19 at 09:00 Linagliptin (Tradjenta) 5 mg DAILY PO Last administered on 02/06/19 08:06; Admin Dose 5 MG; Start 01/10/19 at 09:00 Diagnostic Test (Pha) (Accu-Chek) 1 ea AC MEALS AND BEDTIME XX Last administered on 02/05/19 21:15; Admin Dose 1 EA; Start 01/09/19 at 21:00 Acetaminophen (Tylenol Tab) 650 mg Q4H PRN PO MILD PAIN(1-3)OR ELEVATED TEMP; Start 01/09/19 at 20:30 Ondansetron HCl (Zofran Inj) 4 mg Q6H PRN IV NAUSEA AND/OR VOMITING Last administered on 01/14/19 19:59; Admin Dose 4 MG; Start 01/09/19 at 20:30 Diagnostic Test (Pha) (Accu-Chek) 1 ea 02 XX Last administered on 02/05/19 02:59; Admin Dose 1 EA; Start 01/10/19 at 02:00 Miscellaneous Information 1 ea NOTE XX ; Start 01/09/19 at 21:30 Glucose (Glutose) 15 gm Q15M PRN PO DECREASED GLUCOSE; Start 01/09/19 at 21:30 Glucose (Glutose) 22.5 gm Q15M PRN PO DECREASED GLUCOSE; Start 01/09/19 at 21:30 Dextrose (D50w Syringe) 25 ml Q15M PRN IV DECREASED GLUCOSE; Start 01/09/19 at 21:30 Dextrose (D50w Syringe) 50 ml Q15M PRN IV DECREASED GLUCOSE; Start 01/09/19 at 21:30 Glucagon (Glucagen) 1 mg Q15M PRN IM DECREASED GLUCOSE; Start 01/09/19 at 21:30 Glucose (Glutose) 15 gm Q15M PRN BUCCAL DECREASED GLUCOSE; Start 01/09/19 at 21:30 Insulin Glargine (Lantus) 18 units QHS SC Last administered on 02/05/19 21:46; Admin Dose 18 UNITS; Start 01/09/19 at 22:30 Carvedilol (Coreg) 3.125 mg BID PO Last administered on 02/01/19 20:05; Admin Dose 3.125 MG; Start 01/10/19 at 21:00 Vancomycin HCl (Vanco Iv Per Pharmacy) VANCOMYCIN PER PHARMACY PER PROTOCOL XX ; Start 01/11/19 at 02:30 Lisinopril (Zestril) 2.5 mg DAILY PO Last administered on 02/04/19 08:55; Admin Dose 2.5 MG; Start 01/13/19 at 09:00 Senna (Senokot) 1 tab DAILY PRN PO CONSTIPATION Last administered on 01/28/19 21:36; Admin Dose 1 TAB; Start 01/12/19 at 18:30 Docusate Sodium (Colace) 100 mg BID PRN PO CONSTIPATION Last administered on 02/05/19 09:19; Admin Dose 100 MG; Start 01/12/19 at 18:30 Neomycin/ Polymyxin/ Bacitracin (Neosporin Topical Oint) 1 applic DAILY TOP Last administered on 02/06/19 08:04; Admin Dose 1 APPLIC; Start 01/12/19 at 18:30 Cyanocobalamin (Vitamin B12 Inj) 1,000 mcg DAILY IM Last administered on 02/06/19 08:04; Admin Dose 1,000 MCG; Start 01/16/19 at 09:00 Pantoprazole (Protonix Tab) 40 mg DAILY@06 PO Last administered on 02/06/19 06:45; Admin Dose 40 MG; Start 01/17/19 at 06:00 Metronidazole 100 ml @ 100 mls/hr Q8 IVPB Last administered on 02/06/19 14 :00; Admin Dose 100 MLS/HR; Start 01/16/19 at 22:00 Cefepime HCl 50 ml @ 100 mls/hr Q12 IVPB Last administered on 02/06/19 08:05; Admin Dose 100 MLS/HR; Start 01/17/19 at 21:00 Oxycodone HCl (Oxycontin) 10 mg BID PO Last administered on 02/06/19 08:06; Admin Dose 10 MG; Start 01/18/19 at 15:00 Furosemide (Lasix) 20 mg BID DIURETICS IV Last administered on 02/06/19 06:46; Admin Dose 20 MG; Start 01/21/19 at 18:30 Vancomycin HCl 1.25 gm/Sodium Chloride 250 ml @ 83.333 mls/ hr Q12H IVPB Last administered on 02/06/19 12:07; Admin Dose 83.333 MLS/HR; Start 01/25/19 at 01:00 Insulin Aspart (Novolog Insulin Pen) NOVOLOG *MODERATE* ALGORITHM WITH MEALS BEDTIME SC Last administered on 02/06/19at 12:12; Admin Dose 2 UNIT; Start 01/26/19 at 21:00 IV Flush (NS 10 ml) 10 ml PRN PRN IV IV PROTOCOL; Start 01/29/19 at 17:00 Hydromorphone HCl (Dilaudid) 1 mg Q4H PRN IV SEVERE PAIN LEVEL 7-10 Last administered on 02/06/19at 13:15; Admin Dose 1 MG; Start 02/02/19 at 15:30 CARMITA WATTS M.D. February 06, 2019 17:02
[2019-02-06] MEDS: INSULIN GLARGINE [LANTus] (100 UNITS/ML) SYG SC SCH (22:00)
[2019-02-07] VITALS (11 sets, daily range): BP systolic 92–112; BP diastolic 54–71; PULSE 60–84; RESP 18–20
[2019-02-07] MEDS: VANCOMYCIN HCL 1.25 GM in SOD CHLORIDE 0.9% 250 ML IVPB SCH ×2 (01:53→14:10)
[2019-02-07] MEDS: HYDROmorphONE 1 MG/ML SYG IV PRN ×6 (01:55→22:12)
[2019-02-07] MEDS: ACCU-CHEK XX SCH ×5 (01:58→20:58)
[2019-02-07] MEDS: FUROSEMIDE 20 MG INJ IV SCH ×2 (06:00→17:10)
[2019-02-07] MEDS: metroNIDAZOLE 500 MG/NS (PMX) 100 ML IVPB SCH ×3 (06:03→23:00)
[2019-02-07] MEDS: PANTOPRAZOLE (EC) 40 MG TAB PO SCH (06:03)
[2019-02-07] MEDS: INSULIN ASPART [NOVOLOG] 3 ML PEN SC SCH ×4 (07:55→20:58)
[2019-02-07] MEDS: CEFEPIME 2GM/50 ML (PMX) 50 ML IVPB SCH ×2 (08:20→21:37)
[2019-02-07] MEDS: AMIODARONE 200 MG TAB PO SCH (08:21)
[2019-02-07] MEDS: oxyCODONE (CR) 10 MG TAB [oxyCONTIN] PO SCH ×2 (08:21→21:08)
[2019-02-07] MEDS: LINAGLIPTIN 5 MG TABLET PO SCH (08:22)
[2019-02-07] MEDS: GABAPENTIN 300 MG CAP PO SCH (08:22)
[2019-02-07] MEDS: LISINOPRIL 5 MG TAB PO SCH (08:22)
[2019-02-07] MEDS: EMPAGLIFLOZIN 10 MG TABLET PO SCH (08:22)
[2019-02-07] MEDS: CYANOCOBALAMIN 1000 MCG INJ IM SCH (08:23)
[2019-02-07] MEDS: NEOMYC/POLYMYX/BACIT 30 GM OINT TOP SCH (08:23)
--- NOTE | 2019-02-07 10:04 | CONS ---
Assessment/Plan Assessment/Plan Assessment/Plan (Daily) Assessment/Plan (Daily) 1. Right heel necrotic wound. -s/p debridement of rt foot, silvadene cream 2. Cardiomyopathy with ejection fraction of 20% to 30%. 3. Peripheral vascular disease status post PCI, right lower extremity. 4. Coronary artery disease status post coronary artery bypass graft. 5. Status post automatic implantable cardioverter-defibrillator. 6. Hypertension. 7. Diabetes mellitus. 8. Anemia. Patient has a significant drop in hematocrit. So far, clinically, there is no evidence of obvious GI bleeding. 9. Ovoid mass or filling defect arising from lesser curvature of stomach. -GIST tumor 10. Pt is pre op for peripheral artery bypass surgery which is on hold for now. 11. Back pain Plan EUS with FNA as outpatient to confirm GIST tumor diagnosis. Will likely need surgical removal of tumor in future. Spoke with patient today regarding GIST tumor Patient will be completing the course of antibiotic for his wound infection in the lower extremity Plan of care discussed the patient he understood and has agreed Monitor H&H We will check his CBC and CMP Consultation Date/Type/Reason Admit Date/Time January 09, 2019 at 18:17 Initial Consult Date 01/16/19 Requesting Provider: KRISTIN PRYOR MD Date/Time of Note DATE: 02/07/19 TIME: 10:03 24 HR Interval Summary Free Text/Dictation Patient complains of back pain No GI bleeding Exam/Review of Systems Exam Vitals Vital Signs Date Temp Pulse Resp B/P (MAP) Pulse Ox O2 O2 Flow FiO2 Time Delivery Rate 02/07/19 97.4 60 20 92/54 (67) 100 07:06 02/06/19 Room Air 07:33 Intake and Output 02/06/19 02/06/19 02/07/19 1515:00 23:00 07:00 IntakeIntake Total 1150 ml 250 ml OutputOutput Total 1200 ml BalanceBalance -50 ml 250 ml Constitutional: alert, oriented, well developed Psych: no complaints, nl mood/affect Head: normocephalic, atraumatic Eyes: nl conjunctiva, EOMI, nl lids, nl sclera, PERRL ENMT: nl external ears & nose, nl lips & teeth, nl nasal mucosa & septum Neck: supple, non-tender Respiratory: clear to auscultation, normal air movement Cardiovascular: regular rate and rhythm, nl pulses Gastrointestinal: soft, nl liver, spleen, non-tender Musculoskeletal: nl extremities to inspection, nl gait and stance Extremities: normal pulses 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, nl mental status, nl speech, nl strength Skin: nl turgor; No rash or lesions Lymph: nl lymph nodes Results Results 24hrs Laboratory Tests Test 02/06/19 11:49 02/06/19 16:42 02/06/19 21:42 02/07/19 08:17 Bedside Glucose 150 171 158 136 Medications Medication Current Medications Amiodarone HCl (Cordarone) 200 mg DAILY PO Last administered on 02/06/19 08:05; Admin Dose 200 MG; Start 01/10/19 at 09:00 Digoxin (Digoxin) 0.125 mg DAILY@1300 PO Last administered on 02/06/19 12:07; Admin Dose 0.125 MG; Start 01/10/19 at 13:00 Gabapentin (Neurontin) 600 mg DAILY PO Last administered on 02/07/19 08:22; Admin Dose 600 MG; Start 01/10/19 at 09:00 Empaglifozin (Jardiance) 25 mg DAILY PO Last administered on 02/07/19 08:22; Admin Dose 25 MG; Start 01/10/19 at 09:00 Linagliptin (Tradjenta) 5 mg DAILY PO Last administered on 02/07/19 08:22; Admin Dose 5 MG; Start 01/10/19 at 09:00 Diagnostic Test (Pha) (Accu-Chek) 1 ea AC MEALS AND BEDTIME XX Last administered on 02/07/19 08:20; Admin Dose 1 EA; Start 01/09/19 at 21:00 Acetaminophen (Tylenol Tab) 650 mg Q4H PRN PO MILD PAIN(1-3)OR ELEVATED TEMP; Start 01/09/19 at 20:30 Ondansetron HCl (Zofran Inj) 4 mg Q6H PRN IV NAUSEA AND/OR VOMITING Last administered on 01/14/19 19:59; Admin Dose 4 MG; Start 01/09/19 at 20:30 Diagnostic Test (Pha) (Accu-Chek) 1 ea 02 XX Last administered on 02/07/19 01:58; Admin Dose 1 EA; Start 01/10/19 at 02:00 Miscellaneous Information 1 ea NOTE XX ; Start 01/09/19 at 21:30 Glucose (Glutose) 15 gm Q15M PRN PO DECREASED GLUCOSE; Start 01/09/19 at 21:30 Glucose (Glutose) 22.5 gm Q15M PRN PO DECREASED GLUCOSE; Start 01/09/19 at 21:30 Dextrose (D50w Syringe) 25 ml Q15M PRN IV DECREASED GLUCOSE; Start 01/09/19 at 21:30 Dextrose (D50w Syringe) 50 ml Q15M PRN IV DECREASED GLUCOSE; Start 01/09/19 at 21:30 Glucagon (Glucagen) 1 mg Q15M PRN IM DECREASED GLUCOSE; Start 01/09/19 at 21:30 Glucose (Glutose) 15 gm Q15M PRN BUCCAL DECREASED GLUCOSE; Start 01/09/19 at 21:30 Insulin Glargine (Lantus) 18 units QHS SC Last administered on 02/06/19at 22:00; Admin Dose 18 UNITS; Start 01/09/19 at 22:30 Carvedilol (Coreg) 3.125 mg BID PO Last administered on 02/01/19at 20:05; Admin Dose 3.125 MG; Start 01/10/19 at 21:00 Vancomycin HCl (Vanco Iv Per Pharmacy) VANCOMYCIN PER PHARMACY PER PROTOCOL XX ; Start 01/11/19 at 02:30 Lisinopril (Zestril) 2.5 mg DAILY PO Last administered on 02/04/19 08:55; Admin Dose 2.5 MG; Start 01/13/19 at 09:00 Senna (Senokot) 1 tab DAILY PRN PO CONSTIPATION Last administered on 01/28/19at 21:36; Admin Dose 1 TAB; Start 01/12/19 at 18:30 Docusate Sodium (Colace) 100 mg BID PRN PO CONSTIPATION Last administered on 02/05/19 09:19; Admin Dose 100 MG; Start 01/12/19 at 18:30 Neomycin/ Polymyxin/ Bacitracin (Neosporin Topical Oint) 1 applic DAILY TOP Last administered on 02/07/19 08:23; Admin Dose 1 APPLIC; Start 01/12/19 at 18:30 Cyanocobalamin (Vitamin B12 Inj) 1,000 mcg DAILY IM Last administered on 02/07/19 08:23; Admin Dose 1,000 MCG; Start 01/16/19 at 09:00 Pantoprazole (Protonix Tab) 40 mg DAILY@06 PO Last administered on 02/07/19 06:03; Admin Dose 40 MG; Start 01/17/19 at 06:00 Metronidazole 100 ml @ 100 mls/hr Q8 IVPB Last administered on 02/07/19 06:03; Admin Dose 100 MLS/HR; Start 01/16/19 at 22:00 Cefepime HCl 50 ml @ 100 mls/hr Q12 IVPB Last administered on 02/07/19 08:20; Admin Dose 100 MLS/HR; Start 01/17/19 at 21:00 Oxycodone HCl (Oxycontin) 10 mg BID PO Last administered on 02/07/19 08:21; Admin Dose 10 MG; Start 01/18/19 at 15:00 Furosemide (Lasix) 20 mg BID DIURETICS IV Last administered on 02/06/19 16:43; Admin Dose 20 MG; Start 01/21/19 at 18:30 Vancomycin HCl 1.25 gm/Sodium Chloride 250 ml @ 83.333 mls/ hr Q12H IVPB Last administered on 02/07/19 01:53; Admin Dose 83.333 MLS/HR; Start 01/25/19 at 01:00 Insulin Aspart (Novolog Insulin Pen) NOVOLOG *MODERATE* ALGORITHM WITH MEALS BEDTIME SC Last administered on 02/06/19 17:03; Admin Dose 2 UNIT; Start 01/26/19 at 21:00 IV Flush (NS 10 ml) 10 ml PRN PRN IV IV PROTOCOL; Start 01/29/19 at 17:00 Hydromorphone HCl (Dilaudid) 1 mg Q4H PRN IV SEVERE PAIN LEVEL 7-10 Last administered on 02/07/19 06:03; Admin Dose 1 MG; Start 02/02/19 at 15:30 KACI TORRES MD Feb 07, 2019 10:03
--- NOTE | 2019-02-07 11:39 | PN ---
Date/Time of Note Date/Time of Note DATE: 02/07/19 TIME: 11:38 Assessment/Plan VTE Prophylaxis Risk score (from Ns)>0 risk: 4 SCD applied (from Ns): No SCD contraindicated: other Pharmacological prophylaxis: LMWH Lines/Catheters IV Catheter Type (from [facility]): PICC Line Central line still needed: Yes Urinary Cath still in place: No Assessment/Plan Hospital Course -Gastric mass which is is clinically consistent with GIST tumor per EGD per Dr Roberts. EUS and FNA as an outpatient to confirm GIST tumor diagnosis. Continue PPI. -New onset of anemia and hypotension requiring blood transfusion on 01/15/2019, stool for OB is negative. -Right heel necrotic wound. Dr. Mata is following in podiatry consultation. Status post debridement. Continue antibiotics per ID. Dr. Urbano is following in infection disease consultation. Will require total of 6 weeks of Vancomycin IV, Cefepime IV, and Flagyl IV through 02/22/19. -Chronic peripheral vascular disease, history of angioplasty x2. Dr. Sheppard is following in vascular surgery consultation. Plan for a right pop DP bypass as an outpatient. -Coronary artery disease, status post coronary artery bypass graft. -Cardiomyopathy with ejection fraction of 25%. Continue Coreg. Dr. Foster is following in cardiology consultation. -Status post AICD. -Hx of Hypertension. -Diabetes hemoglobin A1c 7.6. Continue Lantus and NovoLog. -Right knee contusion and abrasion status post fall. Status post evaluation by Dr. Zelaya and orthopedic surgery. No signs of fracture or dystrophic dislocation. -Chronic low back pain with significant spondylolisthesis grade II at the level of L5 to S1. Results 24hrs Laboratory Tests Test 02/06/19 11:49 02/06/19 16:42 02/06/19 21:42 02/07/19 08:17 Bedside Glucose 150 171 158 136 Subjective 24 Hr Interval Summary Free Text/Dictation Patient has pain in foot and back Exam/Review of Systems Exam Vitals Vital Signs Date Temp Pulse Resp B/P (MAP) Pulse Ox O2 O2 Flow FiO2 Time Delivery Rate 02/07/19 97.5 80 19 93/59 (70) 96 11:26 02/06/19 Room Air 07:33 Intake and Output 02/06/19 02/06/19 02/07/19 1515:00 23:00 07:00 IntakeIntake Total 1150 ml 250 ml OutputOutput Total 1200 ml BalanceBalance -50 ml 250 ml Constitutional: well developed Head: normocephalic, atraumatic Neck: supple Respiratory: clear to auscultation Cardiovascular: regular rate and rhythm Gastrointestinal: soft, non-tender Extremities: normal pulses Results Results 24hrs Laboratory Tests Test 02/06/19 11:49 02/06/19 16:42 02/06/19 21:42 02/07/19 08:17 Bedside Glucose 150 171 158 136 Medications Medication Current Medications Amiodarone HCl (Cordarone) 200 mg DAILY PO Last administered on 02/06/19 08:05; Admin Dose 200 MG; Start 01/10/19 at 09:00 Digoxin (Digoxin) 0.125 mg DAILY@1300 PO Last administered on 02/06/19 12:07; Admin Dose 0.125 MG; Start 01/10/19 at 13:00 Gabapentin (Neurontin) 600 mg DAILY PO Last administered on 02/07/19 08:22; Admin Dose 600 MG; Start 01/10/19 at 09:00 Empaglifozin (Jardiance) 25 mg DAILY PO Last administered on 02/07/19 08:22; Admin Dose 25 MG; Start 01/10/19 at 09:00 Linagliptin (Tradjenta) 5 mg DAILY PO Last administered on 02/07/19 08:22; Admin Dose 5 MG; Start 01/10/19 at 09:00 Diagnostic Test (Pha) (Accu-Chek) 1 ea AC MEALS AND BEDTIME XX Last administered on 02/07/19 08:20; Admin Dose 1 EA; Start 01/09/19 at 21:00 Acetaminophen (Tylenol Tab) 650 mg Q4H PRN PO MILD PAIN(1-3)OR ELEVATED TEMP; Start 01/09/19 at 20:30 Ondansetron HCl (Zofran Inj) 4 mg Q6H PRN IV NAUSEA AND/OR VOMITING Last administered on 01/14/19 19:59; Admin Dose 4 MG; Start 01/09/19 at 20:30 Diagnostic Test (Pha) (Accu-Chek) 1 ea 02 XX Last administered on 02/07/19 01:58; Admin Dose 1 EA; Start 01/10/19 at 02:00 Miscellaneous Information 1 ea NOTE XX ; Start 01/09/19 at 21:30 Glucose (Glutose) 15 gm Q15M PRN PO DECREASED GLUCOSE; Start 01/09/19 at 21:30 Glucose (Glutose) 22.5 gm Q15M PRN PO DECREASED GLUCOSE; Start 01/09/19 at 21:30 Dextrose (D50w Syringe) 25 ml Q15M PRN IV DECREASED GLUCOSE; Start 01/09/19 at 21:30 Dextrose (D50w Syringe) 50 ml Q15M PRN IV DECREASED GLUCOSE; Start 01/09/19 at 21:30 Glucagon (Glucagen) 1 mg Q15M PRN IM DECREASED GLUCOSE; Start 01/09/19 at 21:30 Glucose (Glutose) 15 gm Q15M PRN BUCCAL DECREASED GLUCOSE; Start 01/09/19 at 21:30 Insulin Glargine (Lantus) 18 units QHS SC Last administered on 02/06/19at 22:00; Admin Dose 18 UNITS; Start 01/09/19 at 22:30 Carvedilol (Coreg) 3.125 mg BID PO Last administered on 02/01/19at 20:05; Admin Dose 3.125 MG; Start 01/10/19 at 21:00 Vancomycin HCl (Vanco Iv Per Pharmacy) VANCOMYCIN PER PHARMACY PER PROTOCOL XX ; Start 01/11/19 at 02:30 Lisinopril (Zestril) 2.5 mg DAILY PO Last administered on 02/04/19 08:55; Admin Dose 2.5 MG; Start 01/13/19 at 09:00 Senna (Senokot) 1 tab DAILY PRN PO CONSTIPATION Last administered on 01/28/19at 21:36; Admin Dose 1 TAB; Start 01/12/19 at 18:30 Docusate Sodium (Colace) 100 mg BID PRN PO CONSTIPATION Last administered on 02/05/19 09:19; Admin Dose 100 MG; Start 01/12/19 at 18:30 Neomycin/ Polymyxin/ Bacitracin (Neosporin Topical Oint) 1 applic DAILY TOP Last administered on 02/07/19 08:23; Admin Dose 1 APPLIC; Start 01/12/19 at 18:30 Cyanocobalamin (Vitamin B12 Inj) 1,000 mcg DAILY IM Last administered on 02/07/19 08:23; Admin Dose 1,000 MCG; Start 01/16/19 at 09:00 Pantoprazole (Protonix Tab) 40 mg DAILY@06 PO Last administered on 02/07/19 06:03; Admin Dose 40 MG; Start 01/17/19 at 06:00 Metronidazole 100 ml @ 100 mls/hr Q8 IVPB Last administered on 02/07/19 06:03; Admin Dose 100 MLS/HR; Start 01/16/19 at 22:00 Cefepime HCl 50 ml @ 100 mls/hr Q12 IVPB Last administered on 02/07/19 08:20; Admin Dose 100 MLS/HR; Start 01/17/19 at 21:00 Oxycodone HCl (Oxycontin) 10 mg BID PO Last administered on 02/07/19 08:21; Admin Dose 10 MG; Start 01/18/19 at 15:00 Furosemide (Lasix) 20 mg BID DIURETICS IV Last administered on 02/06/19 16:43; Admin Dose 20 MG; Start 01/21/19 at 18:30 Vancomycin HCl 1.25 gm/Sodium Chloride 250 ml @ 83.333 mls/ hr Q12H IVPB Last administered on 02/07/19 01:53; Admin Dose 83.333 MLS/HR; Start 01/25/19 at 01:00 Insulin Aspart (Novolog Insulin Pen) NOVOLOG *MODERATE* ALGORITHM WITH MEALS BEDTIME SC Last administered on 02/06/19 17:03; Admin Dose 2 UNIT; Start 01/26/19 at 21:00 IV Flush (NS 10 ml) 10 ml PRN PRN IV IV PROTOCOL; Start 01/29/19 at 17:00 Hydromorphone HCl (Dilaudid) 1 mg Q4H PRN IV SEVERE PAIN LEVEL 7-10 Last administered on 02/07/19 10:19; Admin Dose 1 MG; Start 02/02/19 at 15:30 PARISA VARGAS Feb 07, 2019 11:39
[2019-02-07] MEDS: DIGOXIN 0.125 MG TAB PO SCH (12:30)
[2019-02-07] MEDS: DOCUSATE SODIUM 100 MG CAP PO PRN (14:26)
[2019-02-07] MEDS: SENNA TAB PO PRN (14:26)
--- NOTE | 2019-02-07 16:58 | CONS ---
Assessment/Plan Assessment/Plan Assessment/Plan (Daily) 63-year-old gentleman with history of coronary artery disease, status post CABG, also status post AICD placement, hypertension, diabetes, peripheral vascular disease, status post aortogram and right lower extremity runoff and percutaneous angioplasty of the posterior tibial artery and anterior tibial artery in 10/2018. Patient has a worsening RLE heel wound and thus admitted for sepsis. #Gastric mass -pt to have EUS and FNA ans an out patient. 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 Coli, Proteus, and Enterococcus -h/o 6 weeks of IV vancomycin and ceftriaxone in 2018 - Plan for a right pop DP bypass as an outpatient. # Anemia-normocytic- Hgb 10.2 -Hg currently stable > 9 -likely 2/2 GI bleed -continue to hold all blood thinners -CT A/P does not reveal evidence of bleed -f/u endoscopy. pt was found with a T3.5 cm mass/filling defect arising along the lesser curvature of the stomach - consistent with GIST tumor Patient seen in collaboration with Dr Hancock. Consultation Date/Type/Reason Admit Date/Time January 09, 2019 at 18:17 Initial Consult Date 01/16/19 Type of Consult ONCOLOGY/HEMATOLOGY Reason for Consultation Anemia/gastric mass Requesting Provider: KRISTIN PRYOR MD Date/Time of Note DATE: 02/07/19 TIME: 16:58 24 HR Interval Summary Free Text/Dictation - Hgb 10.2 - no G9 bleeding reported no events reported last night dw staff Exam/Review of Systems Exam Vitals Vital Signs Date Temp Pulse Resp B/P (MAP) Pulse Ox O2 O2 Flow FiO2 Time Delivery Rate 02/07/19 84 16:01 02/07/19 97.5 19 93/59 (70) 96 11:26 02/06/19 Room Air 07:33 Intake and Output 02/06/19 02/06/19 02/07/19 1515:00 23:00 07:00 IntakeIntake Total 1150 ml 250 ml OutputOutput Total 1200 ml BalanceBalance -50 ml 250 ml Constitutional: alert, well developed Eyes: nl lids, nl sclera ENMT: nl external ears & nose Neck: non-tender Respiratory: clear to auscultation Cardiovascular: nl pulses, other (s1s2) Gastrointestinal: soft, non-tender Musculoskeletal: joint tenderness, range of motion Extremities: edema 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: nl mental status, nl speech, other Skin: other (right foot - ulcer) Lymph: nontender Results Results 24hrs Laboratory Tests Test 02/06/19 21:42 02/07/19 08:17 02/07/19 12:12 Bedside Glucose 158 136 133 Medications Medication Current Medications Amiodarone HCl (Cordarone) 200 mg DAILY PO Last administered on 02/06/19 08: 05; Admin Dose 200 MG; Start 01/10/19 at 09:00 Digoxin (Digoxin) 0.125 mg DAILY@1300 PO Last administered on 02/07/19 12:30; Admin Dose 0.125 MG; Start 01/10/19 at 13:00 Gabapentin (Neurontin) 600 mg DAILY PO Last administered on 02/07/19 08:22; Admin Dose 600 MG; Start 01/10/19 at 09:00 Empaglifozin (Jardiance) 25 mg DAILY PO Last administered on 02/07/19 08:22; Admin Dose 25 MG; Start 01/10/19 at 09:00 Linagliptin (Tradjenta) 5 mg DAILY PO Last administered on 02/07/19 08:22; Admin Dose 5 MG; Start 01/10/19 at 09:00 Diagnostic Test (Pha) (Accu-Chek) 1 ea AC MEALS AND BEDTIME XX Last administered on 02/07/19 12:13; Admin Dose 1 EA; Start 01/09/19 at 21:00 Acetaminophen (Tylenol Tab) 650 mg Q4H PRN PO MILD PAIN(1-3)OR ELEVATED TEMP; Start 01/09/19 at 20:30 Ondansetron HCl (Zofran Inj) 4 mg Q6H PRN IV NAUSEA AND/OR VOMITING Last administered on 01/14/19 19:59; Admin Dose 4 MG; Start 01/09/19 at 20:30 Diagnostic Test (Pha) (Accu-Chek) 1 ea 02 XX Last administered on 6/1/19at 01:58; Admin Dose 1 EA; Start 01/10/19 at 02:00 Miscellaneous Information 1 ea NOTE XX ; Start 01/09/19 at 21:30 Glucose (Glutose) 15 gm Q15M PRN PO DECREASED GLUCOSE; Start 01/09/19 at 21:30 Glucose (Glutose) 22.5 gm Q15M PRN PO DECREASED GLUCOSE; Start 01/09/19 at 21:30 Dextrose (D50w Syringe) 25 ml Q15M PRN IV DECREASED GLUCOSE; Start 01/09/19 at 21:30 Dextrose (D50w Syringe) 50 ml Q15M PRN IV DECREASED GLUCOSE; Start 01/09/19 at 21:30 Glucagon (Glucagen) 1 mg Q15M PRN IM DECREASED GLUCOSE; Start 01/09/19 at 21:30 Glucose (Glutose) 15 gm Q15M PRN BUCCAL DECREASED GLUCOSE; Start 01/09/19 at 21:30 Insulin Glargine (Lantus) 18 units QHS SC Last administered on 02/06/19at 22:00; Admin Dose 18 UNITS; Start 01/09/19 at 22:30 Carvedilol (Coreg) 3.125 mg BID PO Last administered on 02/01/19at 20:05; Admin Dose 3.125 MG; Start 01/10/19 at 21:00 Vancomycin HCl (Vanco Iv Per Pharmacy) VANCOMYCIN PER PHARMACY PER PROTOCOL XX ; Start 01/11/19 at 02:30 Lisinopril (Zestril) 2.5 mg DAILY PO Last administered on 02/04/19 08:55; Admin Dose 2.5 MG; Start 01/13/19 at 09:00 Senna (Senokot) 1 tab DAILY PRN PO CONSTIPATION Last administered on 02/07/19 14:26; Admin Dose 1 TAB; Start 01/12/19 at 18:30 Docusate Sodium (Colace) 100 mg BID PRN PO CONSTIPATION Last administered on 02/07/19 14:26; Admin Dose 100 MG; Start 01/12/19 at 18:30 Neomycin/ Polymyxin/ Bacitracin (Neosporin Topical Oint) 1 applic DAILY TOP Last administered on 02/07/19 08:23; Admin Dose 1 APPLIC; Start 01/12/19 at 18:30 Cyanocobalamin (Vitamin B12 Inj) 1,000 mcg DAILY IM Last administered on 02/07/19 08:23; Admin Dose 1,000 MCG; Start 01/16/19 at 09:00 Pantoprazole (Protonix Tab) 40 mg DAILY@06 PO Last administered on 02/07/19 06:03; Admin Dose 40 MG; Start 01/17/19 at 06:00 Metronidazole 100 ml @ 100 mls/hr Q8 IVPB Last administered on 02/07/19 14:26; Admin Dose 100 MLS/HR; Start 01/16/19 at 22:00 Cefepime HCl 50 ml @ 100 mls/hr Q12 IVPB Last administered on 02/07/19 08:20; Admin Dose 100 MLS/HR; Start 01/17/19 at 21:00 Oxycodone HCl (Oxycontin) 10 mg BID PO Last administered on 02/07/19 08:21; Admin Dose 10 MG; Start 01/18/19 at 15:00 Furosemide (Lasix) 20 mg BID DIURETICS IV Last administered on 02/06/19 16:43; Admin Dose 20 MG; Start 01/21/19 at 18:30 Vancomycin HCl 1.25 gm/Sodium Chloride 250 ml @ 83.333 mls/ hr Q12H IVPB Last administered on 02/07/19 14:10; Admin Dose 83.333 MLS/HR; Start 01/25/19 at 01:00 Insulin Aspart (Novolog Insulin Pen) NOVOLOG *MODERATE* ALGORITHM WITH MEALS BEDTIME SC Last administered on 02/06/19 17:03; Admin Dose 2 UNIT; Start 01/26/19 at 21:00 IV Flush (NS 10 ml) 10 ml PRN PRN IV IV PROTOCOL; Start 01/29/19 at 17:00 Hydromorphone HCl (Dilaudid) 1 mg Q4H PRN IV SEVERE PAIN LEVEL 7-10 Last administered on 02/07/19 14:26; Admin Dose 1 MG; Start 02/02/19 at 15:30 MARTINE PUENTES Feb 07, 2019 16:58
[2019-02-07] MEDS: DOCUSATE SODIUM 100 MG CAP PO SCH (20:25)
[2019-02-07] MEDS: INSULIN GLARGINE [LANTus] (100 UNITS/ML) SYG SC SCH (20:35)
--- NOTE | 2019-02-07 23:35 | CONS ---
Assessment/Plan Assessment/Plan Hospital Course (Demo Recall) - polymicrobial infection of non-healing ulcer of R heel. CT on 01/10/2019 did not show evidence of OM. ESR 26 on 01/09/2019 and 37 on 01/12/2019; superficial wound cx Pseudomonas, E. Coli, Enterococcus (isolated from broth only), scant Proteus, and scant CoNS. ESR 23 on 02/06/2019 - s/p Debridement of the right calcaneal ulceration 01/13/2019; intraop cx grew E. Coli, Proteus, and Enterococcus - chronic wound of R heel, in the past the wound culture grew E. coli - h/o OM of R foot, h/o 6 weeks of IV vancomycin and ceftriaxone in 2018. 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 and needs EUS with FNA to confirm the diagnosis - trauma to R knee - anemia requiring PRBC - PAF - CAD s/p CABG - HTN - CM with EF 25% - h/o AICD placement - PVD - h/o aortogram, RLE runoff and percutaneous angioplasty of the posterior tibial artery and the anterior tibial artery in 10/2018 - DM - Hgb A1c 7.6% - HLD associated with DM recommendations: - pending results: repeat wound culture of R heel - Pt's scheduled for RLE bypass surgery on 02/08/2019. I also recommend debridement of devitalized tissue of R heel - we recommend 6 weeks of vancomycin iv (01/11/2019-), cefepime (restart 01/17/2019-), and metronidazole IV (01/16/2019-) through 02/22/19 - If Pt goes home, IV metronidazole may be replaced with PO metronidazole - please check weekly CBC BMP and ESR while Pt's on IV antibiotics management d/w Pt Consultation Date/Type/Reason Admit Date/Time January 09, 2019 at 18:17 Initial Consult Date 01/10/19 Type of Consult ID Requesting Provider: KRISTIN PRYOR MD Date/Time of Note DATE: 02/07/19 TIME: 23:33 24 HR Interval Summary Constitutional: no complaints Detailed Summary Eyes: no complaints ENT: no complaints Respiratory: no complaints Cardiovascular: no complaints Gastrointestinal: no complaints Genitourinary: no complaints Musculoskeletal: swelling (R foot, although less than before) Skin: skin lesions (R heel had purulence) Neurologic: other (decreased sensation of toes) Lymphatic: No tender nodes Exam/Review of Systems Exam Vitals Vital Signs Date Temp Pulse Resp B/P (MAP) Pulse Ox O2 O2 Flow FiO2 Time Delivery Rate 02/07/19 82 20:00 02/07/19 98.5 20 109/71 100 20:00 (84) 02/06/19 Room Air 07:33 Intake and Output 02/06/19 02/06/19 02/07/19 1515:00 23:00 07:00 IntakeIntake Total 1150 ml 250 ml OutputOutput Total 1200 ml BalanceBalance -50 ml 250 ml Constitutional: alert, oriented, well developed Psych: no complaints, nl mood/affect Head: normocephalic, atraumatic Eyes: nl conjunctiva, nl lids, nl sclera ENMT: nl external ears & nose, nl nasal mucosa & septum, mucosa pink and moist Neck: non-tender Respiratory: normal air movement Cardiovascular: regular rate and rhythm, nl pulses; No edema Gastrointestinal: soft, non-tender Musculoskeletal: swelling (R foot is mildly more swollen than L) Extremities: No edema 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: [employer] II-XII intact, nl mental status, nl speech Skin: nl turgor Results Results 24hrs Laboratory Tests Test 02/07/19 08:17 02/07/19 12:12 02/07/19 17:07 02/07/19 20:28 Bedside Glucose 136 133 116 162 Medications Medication Current Medications Amiodarone HCl (Cordarone) 200 mg DAILY PO Last administered on 02/06/19at 08:05; Admin Dose 200 MG; Start 01/10/19 at 09:00 Digoxin (Digoxin) 0.125 mg DAILY@1300 PO Last administered on 02/07/19at 12:30; Admin Dose 0.125 MG; Start 01/10/19 at 13:00 Gabapentin (Neurontin) 600 mg DAILY PO Last administered on 02/07/19at 08:22; Admin Dose 600 MG; Start 01/10/19 at 09:00 Empaglifozin (Jardiance) 25 mg DAILY PO Last administered on 02/07/19at 08:22; Admin Dose 25 MG; Start 01/10/19 at 09:00 Linagliptin (Tradjenta) 5 mg DAILY PO Last administered on 6/1/19at 08:22; Admin Dose 5 MG; Start 01/10/19 at 09:00 Diagnostic Test (Pha) (Accu-Chek) 1 ea AC MEALS AND BEDTIME XX Last administered on 02/07/19 20:58; Admin Dose 1 EA; Start 01/09/19 at 21:00 Acetaminophen (Tylenol Tab) 650 mg Q4H PRN PO MILD PAIN(1-3)OR ELEVATED TEMP; Start 01/09/19 at 20:30 Ondansetron HCl (Zofran Inj) 4 mg Q6H PRN IV NAUSEA AND/OR VOMITING Last administered on 01/14/19 19:59; Admin Dose 4 MG; Start 01/09/19 at 20:30 Diagnostic Test (Pha) (Accu-Chek) 1 ea 02 XX Last administered on 02/07/19 01:58; Admin Dose 1 EA; Start 01/10/19 at 02:00 Miscellaneous Information 1 ea NOTE XX ; Start 01/09/19 at 21:30 Glucose (Glutose) 15 gm Q15M PRN PO DECREASED GLUCOSE; Start 01/09/19 at 21:30 Glucose (Glutose) 22.5 gm Q15M PRN PO DECREASED GLUCOSE; Start 01/09/19 at 21:30 Dextrose (D50w Syringe) 25 ml Q15M PRN IV DECREASED GLUCOSE; Start 01/09/19 at 21:30 Dextrose (D50w Syringe) 50 ml Q15M PRN IV DECREASED GLUCOSE; Start 01/09/19 at 21:30 Glucagon (Glucagen) 1 mg Q15M PRN IM DECREASED GLUCOSE; Start 01/09/19 at 21:30 Glucose (Glutose) 15 gm Q15M PRN BUCCAL DECREASED GLUCOSE; Start 01/09/19 at 21:30 Insulin Glargine (Lantus) 18 units QHS SC Last administered on 02/07/19at 20:35; Admin Dose 18 UNITS; Start 01/09/19 at 22:30 Carvedilol (Coreg) 3.125 mg BID PO Last administered on 02/01/19 20:05; Admin Dose 3.125 MG; Start 01/10/19 at 21:00 Vancomycin HCl (Vanco Iv Per Pharmacy) VANCOMYCIN PER PHARMACY PER PROTOCOL XX ; Start 01/11/19 at 02:30 Lisinopril (Zestril) 2.5 mg DAILY PO Last administered on 02/04/19 08:55; Admin Dose 2.5 MG; Start 01/13/19 at 09:00 Senna (Senokot) 1 tab DAILY PRN PO CONSTIPATION Last administered on 02/07/19 14:26; Admin Dose 1 TAB; Start 01/12/19 at 18:30 Neomycin/ Polymyxin/ Bacitracin (Neosporin Topical Oint) 1 applic DAILY TOP Last administered on 02/07/19 08:23; Admin Dose 1 APPLIC; Start 01/12/19 at 18:30 Cyanocobalamin (Vitamin B12 Inj) 1,000 mcg DAILY IM Last administered on 02/07/19 08:23; Admin Dose 1,000 MCG; Start 01/16/19 at 09:00 Pantoprazole (Protonix Tab) 40 mg DAILY@06 PO Last administered on 02/07/19 06:03; Admin Dose 40 MG; Start 01/17/19 at 06:00 Metronidazole 100 ml @ 100 mls/hr Q8 IVPB Last administered on 02/07/19 23:00; Admin Dose 100 MLS/HR; Start 01/16/19 at 22:00 Cefepime HCl 50 ml @ 100 mls/hr Q12 IVPB Last administered on 02/07/19 21:37; Admin Dose 100 MLS/HR; Start 01/17/19 at 21:00 Oxycodone HCl (Oxycontin) 10 mg BID PO Last administered on 02/07/19 21:08; Admin Dose 10 MG; Start 01/18/19 at 15:00 Furosemide (Lasix) 20 mg BID DIURETICS IV Last administered on 02/07/19 17:10; Admin Dose 20 MG; Start 01/21/19 at 18:30 Vancomycin HCl 1.25 gm/Sodium Chloride 250 ml @ 83.333 mls/ hr Q12H IVPB Last administered on 02/07/19 14:10; Admin Dose 83.333 MLS/HR; Start 01/25/19 at 01:00 Insulin Aspart (Novolog Insulin Pen) NOVOLOG *MODERATE* ALGORITHM WITH MEALS BEDTIME SC Last administered on 02/06/19 17:03; Admin Dose 2 UNIT; Start 01/26/19 at 21:00 IV Flush (NS 10 ml) 10 ml PRN PRN IV IV PROTOCOL; Start 01/29/19 at 17:00 Hydromorphone HCl (Dilaudid) 1 mg Q4H PRN IV SEVERE PAIN LEVEL 7-10 Last administered on 02/07/19at 22:12; Admin Dose 1 MG; Start 02/02/19 at 15:30 Docusate Sodium (Colace) 100 mg BID PO Last administered on 02/07/19at 20:25; Ad min Dose 100 MG; Start 02/07/19 at 21:00 CARMITA WATTS M.D. Feb 07, 2019 23:35
[2019-02-08] VITALS (10 sets, daily range): BP systolic 93–121; BP diastolic 51–76; PULSE 64–115; RESP 16–20
[2019-02-08] MEDS: VANCOMYCIN HCL 1.25 GM in SOD CHLORIDE 0.9% 250 ML IVPB SCH ×2 (01:40→13:25)
[2019-02-08] MEDS: ACCU-CHEK XX SCH ×5 (02:00→21:12)
[2019-02-08] MEDS: HYDROmorphONE 1 MG/ML SYG IV PRN ×5 (02:50→21:25)
[2019-02-08] MEDS: FUROSEMIDE 20 MG INJ IV SCH ×2 (06:00→17:07)
[2019-02-08] MEDS: PANTOPRAZOLE (EC) 40 MG TAB PO SCH (06:00)
[2019-02-08] MEDS: metroNIDAZOLE 500 MG/NS (PMX) 100 ML IVPB SCH ×3 (06:00→21:30)
[2019-02-08] MEDS: INSULIN ASPART [NOVOLOG] 3 ML PEN SC SCH ×4 (07:55→21:09)
[2019-02-08] MEDS: GABAPENTIN 300 MG CAP PO SCH (08:16)
[2019-02-08] MEDS: DOCUSATE SODIUM 100 MG CAP PO SCH ×2 (08:17→20:19)
[2019-02-08] MEDS: CYANOCOBALAMIN 1000 MCG INJ IM SCH (08:17)
[2019-02-08] MEDS: LINAGLIPTIN 5 MG TABLET PO SCH (08:18)
[2019-02-08] MEDS: LISINOPRIL 5 MG TAB PO SCH (08:18)
[2019-02-08] MEDS: EMPAGLIFLOZIN 10 MG TABLET PO SCH (08:18)
[2019-02-08] MEDS: AMIODARONE 200 MG TAB PO SCH (08:19)
[2019-02-08] MEDS: oxyCODONE (CR) 10 MG TAB [oxyCONTIN] PO SCH ×2 (08:22→20:19)
[2019-02-08] MEDS: NEOMYC/POLYMYX/BACIT 30 GM OINT TOP SCH (08:23)
[2019-02-08] MEDS: CEFEPIME 2GM/50 ML (PMX) 50 ML IVPB SCH ×2 (09:30→20:19)
--- NOTE | 2019-02-08 10:54 | CONS ---
Assessment/Plan Assessment/Plan Assessment/Plan (Daily) 63-year-old gentleman with history of coronary artery disease, status post CABG, also status post AICD placement, hypertension, diabetes, peripheral vascular disease, status post aortogram and right lower extremity runoff and percutaneous angioplasty of the posterior tibial artery and anterior tibial artery in 10/2018. Patient has a worsening RLE heel wound and thus admitted for sepsis. #Gastric mass -pt to have EUS and FNA ans an out patient. 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 Coli, Proteus, and Enterococcus -h/o 6 weeks of IV vancomycin and ceftriaxone in 2018 - Plan for a right pop DP bypass as an outpatient. # Anemia-normocytic- Hgb 10.2 -Hg currently stable > 9 -likely 2/2 GI bleed -continue to hold all blood thinners -CT A/P does not reveal evidence of bleed -f/u endoscopy. pt was found with a T3.5 cm mass/filling defect arising along the lesser curvature of the stomach - consistent with GIST tumor Patient seen in collaboration with Dr Hacnock. Consultation Date/Type/Reason Admit Date/Time January 09, 2019 at 18:17 Initial Consult Date 01/16/19 Type of Consult ONCOLOGY/HEMATOLOGY Reason for Consultation Anemia Gastric mass Requesting Provider: KRISTIN PRYOR MD Date/Time of Note DATE: 02/08/19 TIME: 10:54 24 HR Interval Summary Free Text/Dictation feels better no GIB reported Hgb 10.2 dw staff Exam/Review of Systems Exam Vitals Vital Signs Date Temp Pulse Resp B/P (MAP) Pulse Ox O2 O2 Flow FiO2 Time Delivery Rate 02/08/19 64 08:01 02/08/19 97.9 19 115/76 97 07:24 (89) 02/06/19 Room Air 07:33 Intake and Output 02/07/19 02/07/19 02/08/19 1515:00 23:00 07:00 IntakeIntake Total 1100 ml 1300 ml OutputOutput Total 1100 ml BalanceBalance 0 ml 1300 ml Constitutional: alert, well developed Psych: nl mood/affect Head: normocephalic Eyes: nl lids, nl sclera ENMT: nl external ears & nose Neck: non-tender Respiratory: clear to auscultation Cardiovascular: nl pulses, other (s1s2) Gastrointestinal: soft, non-tender Musculoskeletal: joint tenderness, range of motion Extremities: edema 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: nl speech, other (alert/responsive) Lymph: nontender Results Result Diagram: 02/08/19 0551 02/08/19 0551 Results 24hrs Laboratory Tests Test 02/07/19 12:12 02/07/19 17:07 02/07/19 20:28 02/08/19 05:51 Bedside Glucose 133 116 162 White Blood Count 7.0 Red Blood Count 3.60 L Hemoglobin 10.3 L Hematocrit 33.3 L Mean Corpuscular Volume 92.5 Mean Corpuscular 28.6 L Hemoglobin Mean Corpuscular 30.9 L Hemoglobin Concent Red Cell Distribution 15.7 H Width Platelet Count 226 Mean Platelet Volume 11.2 H Immature Granulocytes % 0.300 Neutrophils % 57.0 Lymphocytes % 26.0 Monocytes % 10.9 Eosinophils % 5.5 Basophils % 0.3 Nucleated Red Blood 0.0 Cells % Immature Granulocytes # 0.020 Neutrophils # 4.0 Lymphocytes # 1.8 Monocytes # 0.8 Eosinophils # 0.4 Basophils # 0.0 Nucleated Red Blood 0.0 Cells # Sodium Level 140 Potassium Level 4.1 Chloride Level 104 Carbon Dioxide Level 30 Anion Gap 6 Blood Urea Nitrogen 15 Creatinine 0.60 L Est Glomerular Filtrat > 60 Rate mL/min Glucose Level 163 Calcium Level 8.9 Total Bilirubin 0.3 Direct Bilirubin 0.00 Indirect Bilirubin 0.3 Aspartate Amino 28 Transf (AST/SGOT) Alanine 37 Aminotransferase (ALT/SG PT) Alkaline Phosphatase 46 Total Protein 6.2 Albumin 3.5 Globulin 2.70 Albumin/Globulin Ratio 1.29 Test 02/08/19 08:13 Bedside Glucose 92 Medications Medication Current Medications Amiodarone HCl (Cordarone) 200 mg DAILY PO Last administered on 02/08/19at 08:19; Admin Dose 200 MG; Start 01/10/19 at 09:00 Digoxin (Digoxin) 0.125 mg DAILY@1300 PO Last administered on 02/07/19at 12:30; Admin Dose 0.125 MG; Start 01/10/19 at 13:00 Gabapentin (Neurontin) 600 mg DAILY PO Last administered on 02/08/19 08:16; Admin Dose 600 MG; Start 01/10/19 at 09:00 Empaglifozin (Jardiance) 25 mg DAILY PO Last administered on 02/08/19 08:18; Admin Dose 25 MG; Start 01/10/19 at 09:00 Linagliptin (Tradjenta) 5 mg DAILY PO Last administered on 02/08/19 08:18; Admin Dose 5 MG; Start 01/10/19 at 09:00 Diagnostic Test (Pha) (Accu-Chek) 1 ea AC MEALS AND BEDTIME XX Last administer ed on 02/08/19 08:15; Admin Dose 1 EA; Start 01/09/19 at 21:00 Acetaminophen (Tylenol Tab) 650 mg Q4H PRN PO MILD PAIN(1-3)OR ELEVATED TEMP; Start 01/09/19 at 20:30 Ondansetron HCl (Zofran Inj) 4 mg Q6H PRN IV NAUSEA AND/OR VOMITING Last administered on 01/14/19at 19:59; Admin Dose 4 MG; Start 01/09/19 at 20:30 Diagnostic Test (Pha) (Accu-Chek) 1 ea 02 XX Last administered on 02/07/19at 01:58; Admin Dose 1 EA; Start 01/10/19 at 02:00 Miscellaneous Information 1 ea NOTE XX ; Start 01/09/19 at 21:30 Glucose (Glutose) 15 gm Q15M PRN PO DECREASED GLUCOSE; Start 01/09/19 at 21:30 Glucose (Glutose) 22.5 gm Q15M PRN PO DECREASED GLUCOSE; Start 01/09/19 at 21:30 Dextrose (D50w Syringe) 25 ml Q15M PRN IV DECREASED GLUCOSE; Start 01/09/19 at 21:30 Dextrose (D50w Syringe) 50 ml Q15M PRN IV DECREASED GLUCOSE; Start 01/09/19 at 21:30 Glucagon (Glucagen) 1 mg Q15M PRN IM DECREASED GLUCOSE; Start 01/09/19 at 21:30 Glucose (Glutose) 15 gm Q15M PRN BUCCAL DECREASED GLUCOSE; Start 01/09/19 at 21:30 Insulin Glargine (Lantus) 18 units QHS SC Last administered on 02/07/19 20:35; Admin Dose 18 UNITS; Start 01/09/19 at 22:30 Carvedilol (Coreg) 3.125 mg BID PO Last administered on 02/08/19 08:18; Admin Dose 3.125 MG; Start 01/10/19 at 21:00 Vancomycin HCl (Vanco Iv Per Pharmacy) VANCOMYCIN PER PHARMACY PER PROTOCOL XX ; Start 01/11/19 at 02:30 Lisinopril (Zestril) 2.5 mg DAILY PO Last administered on 02/04/19 08:55; Admin Dose 2.5 MG; Start 01/13/19 at 09:00 Senna (Senokot) 1 tab DAILY PRN PO CONSTIPATION Last administered on 02/07/19 14:26; Admin Dose 1 TAB; Start 01/12/19 at 18:30 Neomycin/ Polymyxin/ Bacitracin (Neosporin Topical Oint) 1 applic DAILY TOP Last administered on 02/08/19 08:23; Admin Dose 1 APPLIC; Start 01/12/19 at 18:30 Cyanocobalamin (Vitamin B12 Inj) 1,000 mcg DAILY IM Last administered on 02/08/19 08:17; Admin Dose 1,000 MCG; Start 01/16/19 at 09:00 Pantoprazole (Protonix Tab) 40 mg DAILY@06 PO Last administered on 02/08/19 06:00; Admin Dose 40 MG; Start 01/17/19 at 06:00 Metronidazole 100 ml @ 100 mls/hr Q8 IVPB Last administered on 02/08/19 06:00; Admin Dose 100 MLS/HR; Start 01/16/19 at 22:00 Cefepime HCl 50 ml @ 100 mls/hr Q12 IVPB Last administered on 02/08/19 09:30; Admin Dose 100 MLS/HR; Start 01/17/19 at 21:00 Oxycodone HCl (Oxycontin) 10 mg BID PO Last administered on 02/08/19 08:22; Admin Dose 10 MG; Start 01/18/19 at 15:00 Furosemide (Lasix) 20 mg BID DIURETICS IV Last administered on 02/08/19 06:00; Admin Dose 20 MG; Start 01/21/19 at 18:30 Vancomycin HCl 1.25 gm/Sodium Chloride 250 ml @ 83.333 mls/ hr Q12H IVPB Last administered on 02/08/19 01:40; Admin Dose 83.333 MLS/HR; Start 01/25/19 at 01:00 Insulin Aspart (Novolog Insulin Pen) NOVOLOG *MODERATE* ALGORITHM WITH MEALS BEDTIME SC Last administered on 02/06/19 17:03; Admin Dose 2 UNIT; Start 01/26/19 at 21:00 IV Flush (NS 10 ml) 10 ml PRN PRN IV IV PROTOCOL; Start 01/29/19 at 17:00 Hydromorphone HCl (Dilaudid) 1 mg Q4H PRN IV SEVERE PAIN LEVEL 7-10 Last administered on 02/08/19 07:15; Admin Dose 1 MG; Start 02/02/19 at 15:30 Docusate Sodium (Colace) 100 mg BID PO Last administered on 02/08/19 08:17; Admin Dose 100 MG; Start 02/07/19 at 21:00 MARTINE PUENTES Feb 08, 2019 10:54
--- NOTE | 2019-02-08 10:57 | PN ---
Date/Time of Note Date/Time of Note DATE: 02/08/19 TIME: 10:56 Assessment/Plan VTE Prophylaxis Risk score (from Ns)>0 risk: 5 SCD applied [place]from [facility] [place] SCD contraindicated: other Pharmacological prophylaxis: LMWH Lines/Catheters IV Catheter Type (from [facility]): PICC Line Central line still needed: Yes Urinary Cath still in place: No Assessment/Plan Hospital Course -Gastric mass which is is clinically consistent with GIST tumor per EGD per Dr Roberts. EUS and FNA as an outpatient to confirm GIST tumor diagnosis. Continue PPI. -New onset of anemia and hypotension requiring blood transfusion on 01/15/2019, stool for OB is negative. -Right heel necrotic wound. Dr. Mata is following in podiatry consultation. Status post debridement. Continue antibiotics per ID. Dr. Urbano is following in infection disease consultation. Will require total of 6 weeks of Vancomycin IV, Cefepime IV, and Flagyl IV through 02/22/19. -Chronic peripheral vascular disease, history of angioplasty x2. Dr. Sheppard is following in vascular surgery consultation. Plan for a right pop DP bypass as an outpatient. -Coronary artery disease, status post coronary artery bypass graft. -Cardiomyopathy with ejection fraction of 25%. Continue Coreg. Dr. Foster is following in cardiology consultation. -Status post AICD. -Hx of Hypertension. -Diabetes hemoglobin A1c 7.6. Continue Lantus and NovoLog. -Right knee contusion and abrasion status post fall. Status post evaluation by Dr. Zelaya and orthopedic surgery. No signs of fracture or dystrophic dislocation. -Chronic low back pain with significant spondylolisthesis grade II at the level of L5 to S1. Result Diagram: 02/08/19 0551 02/08/19 0551 Results 24hrs Laboratory Tests Test 02/07/19 12:12 02/07/19 17:07 02/07/19 20:28 02/08/19 05:51 Bedside Glucose 133 116 162 White Blood Count 7.0 Red Blood Count 3.60 L Hemoglobin 10.3 L Hematocrit 33.3 L Mean Corpuscular Volume 92.5 Mean Corpuscular 28.6 L Hemoglobin Mean Corpuscular 30.9 L Hemoglobin Concent Red Cell Distribution 15.7 H Width Platelet Count 226 Mean Platelet Volume 11.2 H Immature Granulocytes % 0.300 Neutrophils % 57.0 Lymphocytes % 26.0 Monocytes % 10.9 Eosinophils % 5.5 Basophils % 0.3 Nucleated Red Blood 0.0 Cells % Immature Granulocytes # 0.020 Neutrophils # 4.0 Lymphocytes # 1.8 Monocytes # 0.8 Eosinophils # 0.4 Basophils # 0.0 Nucleated Red Blood 0.0 Cells # Sodium Level 140 Potassium Level 4.1 Chloride Level 104 Carbon Dioxide Level 30 Anion Gap 6 Blood Urea Nitrogen 15 Creatinine 0.60 L Est Glomerular Filtrat > 60 Rate mL/min Glucose Level 163 Calcium Level 8.9 Total Bilirubin 0.3 Direct Bilirubin 0.00 Indirect Bilirubin 0.3 Aspartate Amino 28 Transf (AST/SGOT) Alanine 37 Aminotransferase (ALT/SG PT) Alkaline Phosphatase 46 Total Protein 6.2 Albumin 3.5 Globulin 2.70 Albumin/Globulin Ratio 1.29 Test 02/08/19 08:13 Bedside Glucose 92 Subjective 24 Hr Interval Summary Free Text/Dictation Patient has some pain in foot with cellulitis Exam/Review of Systems Exam Vitals Vital Signs Date Temp Pulse Resp B/P (MAP) Pulse Ox O2 O2 Flow FiO2 Time Delivery Rate 02/08/19 64 08:01 02/08/19 97.9 19 115/76 97 07:24 (89) 02/06/19 Room Air 07:33 Intake and Output 02/07/19 02/07/19 02/08/19 1515:00 23:00 07:00 IntakeIntake Total 1100 ml 1300 ml OutputOutput Total 1100 ml BalanceBalance 0 ml 1300 ml Constitutional: well developed Head: normocephalic, atraumatic Neck: supple Respiratory: clear to auscultation Cardiovascular: regular rate and rhythm Gastrointestinal: soft, non-tender Extremities: normal pulses Results Results 24hrs Laboratory Tests Test 02/07/19 12:12 02/07/19 17:07 02/07/19 20:28 02/08/19 05:51 Bedside Glucose 133 116 162 White Blood Count 7.0 Red Blood Count 3.60 L Hemoglobin 10.3 L Hematocrit 33.3 L Mean Corpuscular Volume 92.5 Mean Corpuscular 28.6 L Hemoglobin Mean Corpuscular 30.9 L Hemoglobin Concent Red Cell Distribution 15.7 H Width Platelet Count 226 Mean Platelet Volume 11.2 H Immature Granulocytes % 0.300 Neutrophils % 57.0 Lymphocytes % 26.0 Monocytes % 10.9 Eosinophils % 5.5 Basophils % 0.3 Nucleated Red Blood 0.0 Cells % Immature Granulocytes # 0.020 Neutrophils # 4.0 Lymphocytes # 1.8 Monocytes # 0.8 Eosinophils # 0.4 Basophils # 0.0 Nucleated Red Blood 0.0 Cells # Sodium Level 140 Potassium Level 4.1 Chloride Level 104 Carbon Dioxide Level 30 Anion Gap 6 Blood Urea Nitrogen 15 Creatinine 0.60 L Est Glomerular Filtrat > 60 Rate mL/min Glucose Level 163 Calcium Level 8.9 Total Bilirubin 0.3 Direct Bilirubin 0.00 Indirect Bilirubin 0.3 Aspartate Amino 28 Transf (AST/SGOT) Alanine 37 Aminotransferase (ALT/SG PT) Alkaline Phosphatase 46 Total Protein 6.2 Albumin 3.5 Globulin 2.70 Albumin/Globulin Ratio 1.29 Test 02/08/19 08:13 Bedside Glucose 92 Medications Medication Current Medications Amiodarone HCl (Cordarone) 200 mg DAILY PO Last administered on 02/08/19 08:19; Admin Dose 200 MG; Start 01/10/19 at 09:00 Digoxin (Digoxin) 0.125 mg DAILY@1300 PO Last administered on 02/07/19 12:30; Admin Dose 0.125 MG; Start 01/10/19 at 13:00 Gabapentin (Neurontin) 600 mg DAILY PO Last administered on 02/08/19 08:16; Admin Dose 600 MG; Start 01/10/19 at 09:00 Empaglifozin (Jardiance) 25 mg DAILY PO Last administered on 02/08/19 08:18; Admin Dose 25 MG; Start 01/10/19 at 09:00 Linagliptin (Tradjenta) 5 mg DAILY PO Last administered on 02/08/19 08:18; Admin Dose 5 MG; Start 01/10/19 at 09:00 Diagnostic Test (Pha) (Accu-Chek) 1 ea AC MEALS AND BEDTIME XX Last administered on 02/08/19 08:15; Admin Dose 1 EA; Start 01/09/19 at 21:00 Acetaminophen (Tylenol Tab) 650 mg Q4H PRN PO MILD PAIN(1-3)OR ELEVATED TEMP; Start 01/09/19 at 20:30 Ondansetron HCl (Zofran Inj) 4 mg Q6H PRN IV NAUSEA AND/OR VOMITING Last administered on 01/14/19 19:59; Admin Dose 4 MG; Start 01/09/19 at 20:30 Diagnostic Test (Pha) (Accu-Chek) 1 ea 02 XX Last administered on 02/07/19at 01:58; Admin Dose 1 EA; Start 01/10/19 at 02:00 Miscellaneous Information 1 ea NOTE XX ; Start 01/09/19 at 21:30 Glucose (Glutose) 15 gm Q15M PRN PO DECREASED GLUCOSE; Start 01/09/19 at 21:30 Glucose (Glutose) 22.5 gm Q15M PRN PO DECREASED GLUCOSE; Start 01/09/19 at 21:30 Dextrose (D50w Syringe) 25 ml Q15M PRN IV DECREASED GLUCOSE; Start 01/09/19 at 21:30 Dextrose (D50w Syringe) 50 ml Q15M PRN IV DECREASED GLUCOSE; Start 01/09/19 at 21:30 Glucagon (Glucagen) 1 mg Q15M PRN IM DECREASED GLUCOSE; Start 01/09/19 at 21:30 Glucose (Glutose) 15 gm Q15M PRN BUCCAL DECREASED GLUCOSE; Start 01/09/19 at 21:30 Insulin Glargine (Lantus) 18 units QHS SC Last administered on 02/07/19at 20:35; Admin Dose 18 UNITS; Start 01/09/19 at 22:30 Carvedilol (Coreg) 3.125 mg BID PO Last administered on 02/08/19at 08:18; Admin Dose 3.125 MG; Start 01/10/19 at 21:00 Vancomycin HCl (Vanco Iv Per Pharmacy) VANCOMYCIN PER PHARMACY PER PROTOCOL XX ; Start 01/11/19 at 02:30 Lisinopril (Zestril) 2.5 mg DAILY PO Last administered on 02/04/19at 08:55; Admin Dose 2.5 MG; Start 01/13/19 at 09:00 Senna (Senokot) 1 tab DAILY PRN PO CONSTIPATION Last administered on 02/07/19at 14:26; Admin Dose 1 TAB; Start 01/12/19 at 18:30 Neomycin/ Polymyxin/ Bacitracin (Neosporin Topical Oint) 1 applic DAILY TOP Last administered on 02/08/19at 08:23; Admin Dose 1 APPLIC; Start 01/12/19 at 18:30 Cyanocobalamin (Vitamin B12 Inj) 1,000 mcg DAILY IM Last administered on 02/08/19 08:17; Admin Dose 1,000 MCG; Start 01/16/19 at 09:00 Pantoprazole (Protonix Tab) 40 mg DAILY@06 PO Last administered on 02/08/19 06:00; Admin Dose 40 MG; Start 01/17/19 at 06:00 Metronidazole 100 ml @ 100 mls/hr Q8 IVPB Last administered on 02/08/19 06:00; Admin Dose 100 MLS/HR; Start 01/16/19 at 22:00 Cefepime HCl 50 ml @ 100 mls/hr Q12 IVPB Last administered on 02/08/19 09:30; Admin Dose 100 MLS/HR; Start 01/17/19 at 21:00 Oxycodone HCl (Oxycontin) 10 mg BID PO Last administered on 02/08/19 08:22; Admin Dose 10 MG; Start 01/18/19 at 15:00 Furosemide (Lasix) 20 mg BID DIURETICS IV Last administered on 02/08/19 06:00; Admin Dose 20 MG; Start 01/21/19 at 18:30 Vancomycin HCl 1.25 gm/Sodium Chloride 250 ml @ 83.333 mls/ hr Q12H IVPB Last administered on 02/08/19 01:40; Admin Dose 83.333 MLS/HR; Start 01/25/19 at 01:00 Insulin Aspart (Novolog Insulin Pen) NOVOLOG *MODERATE* ALGORITHM WITH MEALS BEDTIME SC Last administered on 02/06/19 17:03; Admin Dose 2 UNIT; Start 01/26/19 at 21:00 IV Flush (NS 10 ml) 10 ml PRN PRN IV IV PROTOCOL; Start 01/29/19 at 17:00 Hydromorphone HCl (Dilaudid) 1 mg Q4H PRN IV SEVERE PAIN LEVEL 7-10 Last administered on 02/08/19 07:15; Admin Dose 1 MG; Start 02/02/19 at 15:30 Docusate Sodium (Colace) 100 mg BID PO Last administered on 02/08/19 08:17; Admin Dose 100 MG; Start 02/07/19 at 21:00 PARISA VARGAS Feb 08, 2019 10:57
[2019-02-08] MEDS: DIGOXIN 0.125 MG TAB PO SCH (12:01)
--- NOTE | 2019-02-08 14:20 | CONS ---
Assessment/Plan Assessment/Plan Hospital Course (Demo Recall) 1.Pre-op for peripheral bypass surgery. Lexiscan with no ischemia/+scar EF 28%. Echo EF 25%. OK to proceed to surgery at moderate CV risk - stable now - on hold for now - con't wound care. Treated. Pt planned for EGD - OK to proceed if needed from cardiac standpoint. Awaiting surgical dispo now for foot care. 2.Cardiomyopathy with low EF-severely depressed by echo this admit - mild CHF, con't gentle diuresis - stable fluid satus. BiV upgrade planned per Dr. Herrera. Jagdish. Defer to DR. Bowman. 3.HTN - well Rx - on therapy now - in good range now. TREATED. 4.HL 5.Non-healing LE ulcer - in bandage, will follow - con't wound care. Pain better Rx. 6.PAD-severe s/p prior [employer] 7.DM - on meds, keep euglycemic 8. A. Fib - in sinus now, paroxysmal - on amio - off anti-coag with low H/H - Hg 9.0 now. Consultation Date/Type/Reason Admit Date/Time January 09, 2019 at 18:17 Initial Consult Date 01/10/19 Requesting Provider: KRISTIN PRYOR MD Date/Time of Note DATE: 02/08/19 TIME: 14:19 24 HR Interval Summary Free Text/Dictation VS reviewed - stable Exam/Review of Systems Exam Vitals Vital Signs Date Temp Pulse Resp B/P (MAP) Pulse Ox O2 O2 Flow FiO2 Time Delivery Rate 02/08/19 72 12:22 02/08/19 97.8 20 101/51 96 Room Air 11:40 (68) Intake and Output 02/07/19 02/07/19 02/08/19 1515:00 23:00 07:00 IntakeIntake Total 1100 ml 1300 ml OutputOutput Total 1100 ml BalanceBalance 0 ml 1300 ml Results Result Diagram: 02/08/19 0551 02/08/19 0551 Results 24hrs Laboratory Tests Test 02/07/19 17:07 02/07/19 20:28 02/08/19 05:51 02/08/19 08:13 Bedside Glucose 116 162 92 White Blood Count 7.0 Red Blood Count 3.60 L Hemoglobin 10.3 L Hematocrit 33.3 L Mean Corpuscular Volume 92.5 Mean Corpuscular 28.6 L Hemoglobin Mean Corpuscular 30.9 L Hemoglobin Concent Red Cell Distribution 15.7 H Width Platelet Count 226 Mean Platelet Volume 11.2 H Immature Granulocytes % 0.300 Neutrophils % 57.0 Lymphocytes % 26.0 Monocytes % 10.9 Eosinophils % 5.5 Basophils % 0.3 Nucleated Red Blood 0.0 Cells % Immature Granulocytes # 0.020 Neutrophils # 4.0 Lymphocytes # 1.8 Monocytes # 0.8 Eosinophils # 0.4 Basophils # 0.0 Nucleated Red Blood 0.0 Cells # Sodium Level 140 Potassium Level 4.1 Chloride Level 104 Carbon Dioxide Level 30 Anion Gap 6 Blood Urea Nitrogen 15 Creatinine 0.60 L Est Glomerular Filtrat > 60 Rate mL/min Glucose Level 163 Calcium Level 8.9 Total Bilirubin 0.3 Direct Bilirubin 0.00 Indirect Bilirubin 0.3 Aspartate Amino 28 Transf (AST/SGOT) Alanine 37 Aminotransferase (ALT/SG PT) Alkaline Phosphatase 46 Total Protein 6.2 Albumin 3.5 Globulin 2.70 Albumin/Globulin Ratio 1.29 Test 02/08/19 12:00 Bedside Glucose 132 Medications Medication Current Medications Amiodarone HCl (Cordarone) 200 mg DAILY PO Last administered on 02/08/19 08:19; Admin Dose 200 MG; Start 01/10/19 at 09:00 Digoxin (Digoxin) 0.125 mg DAILY@1300 PO Last administered on 02/08/19 12:01; Admin Dose 0.125 MG; Start 01/10/19 at 13:00 Gabapentin (Neurontin) 600 mg DAILY PO Last administered on 02/08/19 08:16; Admin Dose 600 MG; Start 01/10/19 at 09:00 Empaglifozin (Jardiance) 25 mg DAILY PO Last administered on 02/08/19 08:18; Admin Dose 25 MG; Start 01/10/19 at 09:00 Linagliptin (Tradjenta) 5 mg DAILY PO Last administered on 02/08/19 08:18; Admin Dose 5 MG; Start 01/10/19 at 09:00 Diagnostic Test (Pha) (Accu-Chek) 1 ea AC MEALS AND BEDTIME XX Last administered on 02/08/19 12:01; Admin Dose 1 EA; Start 01/09/19 at 21:00 Acetaminophen (Tylenol Tab) 650 mg Q4H PRN PO MILD PAIN(1-3)OR ELEVATED TEMP; Start 01/09/19 at 20:30 Ondansetron HCl (Zofran Inj) 4 mg Q6H PRN IV NAUSEA AND/OR VOMITING Last administered on 01/14/19at 19:59; Admin Dose 4 MG; Start 01/09/19 at 20:30 Diagnostic Test (Pha) (Accu-Chek) 1 ea 02 XX Last administered on 02/07/19at 01:58; Admin Dose 1 EA; Start 01/10/19 at 02:00 Miscellaneous Information 1 ea NOTE XX ; Start 01/09/19 at 21:30 Glucose (Glutose) 15 gm Q15M PRN PO DECREASED GLUCOSE; Start 01/09/19 at 21:30 Glucose (Glutose) 22.5 gm Q15M PRN PO DECREASED GLUCOSE; Start 01/09/19 at 21:30 Dextrose (D50w Syringe) 25 ml Q15M PRN IV DECREASED GLUCOSE; Start 01/09/19 at 21:30 Dextrose (D50w Syringe) 50 ml Q15M PRN IV DECREASED GLUCOSE; Start 01/09/19 at 21:30 Glucagon (Glucagen) 1 mg Q15M PRN IM DECREASED GLUCOSE; Start 01/09/19 at 21:30 Glucose (Glutose) 15 gm Q15M PRN BUCCAL DECREASED GLUCOSE; Start 01/09/19 at 21:30 Insulin Glargine (Lantus) 18 units QHS SC Last administered on 02/07/19at 20:35; Admin Dose 18 UNITS; Start 01/09/19 at 22:30 Carvedilol (Coreg) 3.125 mg BID PO Last administered on 02/08/19at 08:18; Admin Dose 3.125 MG; Start 01/10/19 at 21:00 Vancomycin HCl (Vanco Iv Per Pharmacy) VANCOMYCIN PER PHARMACY PER PROTOCOL XX ; Start 01/11/19 at 02:30 Lisinopril (Zestril) 2.5 mg DAILY PO Last administered on 02/04/19at 08:55; Admin Dose 2.5 MG; Start 01/13/19 at 09:00 Senna (Senokot) 1 tab DAILY PRN PO CONSTIPATION Last administered on 02/07/19at 14:26; Admin Dose 1 TAB; Start 01/12/19 at 18:30 Neomycin/ Polymyxin/ Bacitracin (Neosporin Topical Oint) 1 applic DAILY TOP Last administered on 02/08/19 08:23; Admin Dose 1 APPLIC; Start 01/12/19 at 18:30 Cyanocobalamin (Vitamin B12 Inj) 1,000 mcg DAILY IM Last administered on 02/08/19 08:17; Admin Dose 1,000 MCG; Start 01/16/19 at 09:00 Pantoprazole (Protonix Tab) 40 mg DAILY@06 PO Last administered on 02/08/19 06:00; Admin Dose 40 MG; Start 01/17/19 at 06:00 Metronidazole 100 ml @ 100 mls/hr Q8 IVPB Last administered on 02/08/19 13:25; Admin Dose 100 MLS/HR; Start 01/16/19 at 22:00 Cefepime HCl 50 ml @ 100 mls/hr Q12 IVPB Last administered on 02/08/19 09:30; Admin Dose 100 MLS/HR; Start 01/17/19 at 21:00 Oxycodone HCl (Oxycontin) 10 mg BID PO Last administered on 02/08/19 08:22; Admin Dose 10 MG; Start 01/18/19 at 15:00 Furosemide (Lasix) 20 mg BID DIURETICS IV Last administered on 02/08/19 06:00; Admin Dose 20 MG; Start 01/21/19 at 18:30 Vancomycin HCl 1.25 gm/Sodium Chloride 250 ml @ 83.333 mls/ hr Q12H IVPB Last administered on 02/08/19 13:25; Admin Dose 83.333 MLS/HR; Start 01/25/19 at 01:00 Insulin Aspart (Novolog Insulin Pen) NOVOLOG *MODERATE* ALGORITHM WITH MEALS BEDTIME SC Last administered on 02/06/19 17:03; Admin Dose 2 UNIT; Start 01/26/19 at 21:00 IV Flush (NS 10 ml) 10 ml PRN PRN IV IV PROTOCOL; Start 01/29/19 at 17:00 Hydromorphone HCl (Dilaudid) 1 mg Q4H PRN IV SEVERE PAIN LEVEL 7-10 Last administered on 02/08/19 11:56; Admin Dose 1 MG; Start 5/27/19 at 15:30 Docusate Sodium (Colace) 100 mg BID PO Last administered on 02/08/19at 08:17; Admin Dose 100 MG; Start 02/07/19 at 21:00 Magnesium Hydroxide (Milk Of Mag) 30 ml BID PRN PO CONSTIPATION; Start 02/08/19 at 14:00 MIGUEL WADE MD Feb 08, 2019 14:20
[2019-02-08] MEDS: INSULIN GLARGINE [LANTus] (100 UNITS/ML) SYG SC SCH (21:10)
--- NOTE | 2019-02-08 23:40 | CONS ---
Assessment/Plan Assessment/Plan Hospital Course (Demo Recall) - polymicrobial infection of non-healing ulcer of R heel. CT on 01/10/2019 did not show evidence of OM. ESR 26 on 01/09/2019 and 37 on 01/12/2019; superficial wound culture grew pseudomonas, E. Coli, enterococcus (isolated from broth only), scant proteus, and scant CoNS. ESR 23 and repeat culture on 02/06/2019 grew pseudomonas - s/p Debridement of the right calcaneal ulceration 01/13/2019; intraop culture grew E. Coli, Proteus, and Enterococcus - chronic wound of R heel, in the past the wound culture grew E. coli. repeat culture on 02/06/2019 grew pseudomonas - h/o OM of R foot, h/o 6 weeks of IV vancomycin and ceftriaxone in 2018. 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 I also recommend debridement of devitalized tissue of R heel - we recommend 6 weeks of vancomycin iv (01/11/2019-), cefepime (restart 01/17/2019-), and metronidazole IV (01/16/2019-) through 02/22/19 - I also recommend topical antiseptic e.g. Dakin's solution - If Pt goes home, IV metronidazole may be replaced with PO metronidazole - please check weekly CBC BMP and ESR while Pt's on IV antibiotics management d/w Pt Consultation Date/Type/Reason Admit Date/Time January 09, 2019 at 18:17 Initial Consult Date 01/10/19 Type of Consult ID Requesting Provider: KRISTIN PRYOR MD Date/Time of Note DATE: 02/08/19 TIME: 23:36 24 HR Interval Summary Constitutional: no complaints Detailed Summary Eyes: no complaints ENT: no complaints Respiratory: no complaints Cardiovascular: no complaints Gastrointestinal: no complaints Genitourinary: no complaints Musculoskeletal: restricted range of motion Skin: skin lesions (green purulent material of R heel) Neurologic: other (+sciatica of LLE) Exam/Review of Systems Exam Vitals Vital Signs Date Temp Pulse Resp B/P (MAP) Pulse Ox O2 O2 Flow FiO2 Time Delivery Rate 02/08/19 115 20:00 02/08/19 98.1 16 118/65 98 Room Air 19:53 (82) Intake and Output 02/07/19 02/07/19 02/08/19 1515:00 23:00 07:00 IntakeIntake Total 1100 ml 1300 ml OutputOutput Total 1100 ml BalanceBalance 0 ml 1300 ml Constitutional: other (restless due to pain from sciatica) Psych: no complaints, nl mood/affect Head: normocephalic, atraumatic Eyes: nl conjunctiva, nl lids ENMT: nl external ears & nose, nl nasal mucosa & septum, mucosa pink and moist Neck: other (not swollen) Respiratory: normal air movement Cardiovascular: No edema Gastrointestinal: soft; No distended Musculoskeletal: swelling (R foot is more swollen than L) Extremities: edema (mild edema of R foot) 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: [employer] intact, nl mental status, nl speech; No numbness Skin: rash or lesions (R heel: devitalized tissue with slimy layer) Results Result Diagram: 02/08/19 0551 02/08/19 0551 Results 24hrs Laboratory Tests Test 02/08/19 05:51 02/08/19 08:13 02/08/19 12:00 02/08/19 17:21 White Blood Count 7.0 Red Blood Count 3.60 L Hemoglobin 10.3 L Hematocrit 33.3 L Mean Corpuscular Volume 92.5 Mean Corpuscular 28.6 L Hemoglobin Mean Corpuscular 30.9 L Hemoglobin Concent Red Cell Distribution 15.7 H Width Platelet Count 226 Mean Platelet Volume 11.2 H Immature Granulocytes % 0.300 Neutrophils % 57.0 Lymphocytes % 26.0 Monocytes % 10.9 Eosinophils % 5.5 Basophils % 0.3 Nucleated Red Blood 0.0 Cells % Immature Granulocytes # 0.020 Neutrophils # 4.0 Lymphocytes # 1.8 Monocytes # 0.8 Eosinophils # 0.4 Basophils # 0.0 Nucleated Red Blood 0.0 Cells # Sodium Level 140 Potassium Level 4.1 Chloride Level 104 Carbon Dioxide Level 30 Anion Gap 6 Blood Urea Nitrogen 15 Creatinine 0.60 L Est Glomerular Filtrat > 60 Rate mL/min Glucose Level 163 Calcium Level 8.9 Total Bilirubin 0.3 Direct Bilirubin 0.00 Indirect Bilirubin 0.3 Aspartate Amino 28 Transf (AST/SGOT) Alanine 37 Aminotransferase (ALT/SG PT) Alkaline Phosphatase 46 Total Protein 6.2 Albumin 3.5 Globulin 2.70 Albumin/Globulin Ratio 1.29 Bedside Glucose 92 132 133 Test 02/08/19 20:22 Bedside Glucose 189 Medications Medication Current Medications Amiodarone HCl (Cordarone) 200 mg DAILY PO Last administered on 02/08/19 08:19; Admin Dose 200 MG; Start 01/10/19 at 09:00 Digoxin (Digoxin) 0.125 mg DAILY@1300 PO Last administered on 02/08/19 12:01; Admin Dose 0.125 MG; Start 01/10/19 at 13:00 Gabapentin (Neurontin) 600 mg DAILY PO Last administered on 02/08/19 08:16; Admin Dose 600 MG; Start 01/10/19 at 09:00 Empaglifozin (Jardiance) 25 mg DAILY PO Last administered on 02/08/19 08:18; Admin Dose 25 MG; Start 01/10/19 at 09:00 Linagliptin (Tradjenta) 5 mg DAILY PO Last administered on 02/08/19 08:18; Admin Dose 5 MG; Start 01/10/19 at 09:00 Diagnostic Test (Pha) (Accu-Chek) 1 ea AC MEALS AND BEDTIME XX Last administered on 02/08/19 21:12; Admin Dose 1 EA; Start 01/09/19 at 21:00 Acetaminophen (Tylenol Tab) 650 mg Q4H PRN PO MILD PAIN(1-3)OR ELEVATED TEMP; Start 01/09/19 at 20:30 Ondansetron HCl (Zofran Inj) 4 mg Q6H PRN IV NAUSEA AND/OR VOMITING Last administered on 01/14/19 19:59; Admin Dose 4 MG; Start 01/09/19 at 20:30 Diagnostic Test (Pha) (Accu-Chek) 1 ea 02 XX Last administered on 02/07/19 01:58; Admin Dose 1 EA; Start 01/10/19 at 02:00 Miscellaneous Information 1 ea NOTE XX ; Start 01/09/19 at 21:30 Glucose (Glutose) 15 gm Q15M PRN PO DECREASED GLUCOSE; Start 01/09/19 at 21:30 Glucose (Glutose) 22.5 gm Q15M PRN PO DECREASED GLUCOSE; Start 01/09/19 at 21:30 Dextrose (D50w Syringe) 25 ml Q15M PRN IV DECREASED GLUCOSE; Start 01/09/19 at 21:30 Dextrose (D50w Syringe) 50 ml Q15M PRN IV DECREASED GLUCOSE; Start 01/09/19 at 21:30 Glucagon (Glucagen) 1 mg Q15M PRN IM DECREASED GLUCOSE; Start 01/09/19 at 21:30 Glucose (Glutose) 15 gm Q15M PRN BUCCAL DECREASED GLUCOSE; Start 01/09/19 at 21:30 Insulin Glargine (Lantus) 18 units QHS SC Last administered on 02/08/19at 21:10; Admin Dose 18 UNITS; Start 01/09/19 at 22:30 Carvedilol (Coreg) 3.125 mg BID PO Last administered on 02/08/19at 08:18; Admin Dose 3.125 MG; Start 01/10/19 at 21:00 Vancomycin HCl (Vanco Iv Per Pharmacy) VANCOMYCIN PER PHARMACY PER PROTOCOL XX ; Start 01/11/19 at 02:30 Lisinopril (Zestril) 2.5 mg DAILY PO Last administered on 02/04/19at 08:55; Admin Dose 2.5 MG; Start 01/13/19 at 09:00 Senna (Senokot) 1 tab DAILY PRN PO CONSTIPATION Last administered on 02/07/19at 14:26; Admin Dose 1 TAB; Start 01/12/19 at 18:30 Neomycin/ Polymyxin/ Bacitracin (Neosporin Topical Oint) 1 applic DAILY TOP Last administered on 02/08/19 08:23; Admin Dose 1 APPLIC; Start 01/12/19 at 18:30 Cyanocobalamin (Vitamin B12 Inj) 1,000 mcg DAILY IM Last administered on 02/08/19 08:17; Admin Dose 1,000 MCG; Start 01/16/19 at 09:00 Pantoprazole (Protonix Tab) 40 mg DAILY@06 PO Last administered on 02/08/19 06:00; Admin Dose 40 MG; Start 01/17/19 at 06:00 Metronidazole 100 ml @ 100 mls/hr Q8 IVPB Last administered on 02/08/19 21:30; Admin Dose 100 MLS/HR; Start 01/16/19 at 22:00 Cefepime HCl 50 ml @ 100 mls/hr Q12 IVPB Last administered on 02/08/19 20:19; Admin Dose 100 MLS/HR; Start 01/17/19 at 21:00 Oxycodone HCl (Oxycontin) 10 mg BID PO Last administered on 02/08/19 20:19; Admin Dose 10 MG; Start 01/18/19 at 15:00 Furosemide (Lasix) 20 mg BID DIURETICS IV Last administered on 02/08/19 06:00; Admin Dose 20 MG; Start 01/21/19 at 18:30 Vancomycin HCl 1.25 gm/Sodium Chloride 250 ml @ 83.333 mls/ hr Q12H IVPB Last administered on 02/08/19 13:25; Admin Dose 83.333 MLS/HR; Start 01/25/19 at 01:00 Insulin Aspart (Novolog Insulin Pen) NOVOLOG *MODERATE* ALGORITHM WITH MEALS BEDTIME SC Last administered on 02/08/19 21:09; Admin Dose 1 UNIT; Start 01/26/19 at 21:00 IV Flush (NS 10 ml) 10 ml PRN PRN IV IV PROTOCOL; Start 01/29/19 at 17:00 Hydromorphone HCl (Dilaudid) 1 mg Q4H PRN IV SEVERE PAIN LEVEL 7-10 Last administered on 02/08/19 21:25; Admin Dose 1 MG; Start 02/02/19 at 15:30 Docusate Sodium (Colace) 100 mg BID PO Last administered on 02/08/19 20:19; Admin Dose 100 MG; Start 02/07/19 at 21:00 Magnesium Hydroxide (Milk Of Mag) 30 ml BID PRN PO CONSTIPATION; Start 02/08/19 at 14:00 CARMITA WATTS M.D. Feb 08, 2019 23:40
[2019-02-09] VITALS (10 sets, daily range): BP systolic 91–108; BP diastolic 47–64; PULSE 67–86; RESP 16–20
[2019-02-09] MEDS: VANCOMYCIN HCL 1.25 GM in SOD CHLORIDE 0.9% 250 ML IVPB SCH ×2 (01:22→12:08)
[2019-02-09] MEDS: HYDROmorphONE 1 MG/ML SYG IV PRN ×6 (01:27→22:03)
[2019-02-09] MEDS: ACCU-CHEK XX SCH ×5 (02:00→21:26)
[2019-02-09] MEDS: metroNIDAZOLE 500 MG/NS (PMX) 100 ML IVPB SCH ×3 (05:22→21:59)
[2019-02-09] MEDS: PANTOPRAZOLE (EC) 40 MG TAB PO SCH (05:22)
[2019-02-09] MEDS: FUROSEMIDE 20 MG INJ IV SCH ×2 (05:23→17:25)
--- NOTE | 2019-02-09 07:07 | CONS ---
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 The patient has no GI bleeding, no abdominal pain, no nausea or vomiting. His back pain has 80% gone away. OBJECTIVE: VITAL SIGNS: Stable. ABDOMEN: Benign. LUNGS: Clear. EXTREMITIES: No edema. CENTRAL NERVOUS SYSTEM: Grossly within normal limit. IMPRESSION: 1. Gastric mass. No evidence of active bleeding at this point. The patient's hematocrit remained s table at 23. 2. Back pain, improved. 3. Anemia, which is stable. 4. Right heel necrotic wound, for which patient is on antibiotic. 5. Cardiomyopathy, ejection fraction of 25%. 6. Diabetes mellitus. 7. Status post coronary artery bypass graft. PLAN: 1. Complete the course of antibiotic. 2. The patient is going to have lower extremity bypass surgery for his peripheral arterial disease. 3. Upon discharge, we will do EUS and FNA at [place] and definitely, this mass needs to be remove d surgically. Dictated By: KACI TORERS MD PJ/NTS Conf#: [id number] DID#: [id number] CC: KRISTIN PRYOR MD; VERO MAHONEY MD;*EndCC*
[2019-02-09] MEDS: INSULIN ASPART [NOVOLOG] 3 ML PEN SC SCH ×4 (07:55→21:00)
--- NOTE | 2019-02-09 08:00 | CONS ---
Assessment/Plan Assessment/Plan Hospital Course (Demo Recall) 63 yo male 1. Right heel necrotic wound. -s/p debridement of rt foot, silvadene cream 2. Cardiomyopathy with ejection fraction of 20% to 30%. 3. Peripheral vascular disease status post PCI, right lower extremity. 4. Coronary artery disease status post coronary artery bypass graft. 5. Status post automatic implantable cardioverter-defibrillator. 6. Hypertension. 7. Diabetes mellitus. 8. Anemia. Patient has a significant drop in hematocrit. So far, clinically, there is no evidence of obvious GI bleeding. 9. Ovoid mass or filling defect arising from lesser curvature of stomach. -GIST tumor 10. Pt is pre op for peripheral artery bypass surgery Plan RLE surgery planned for Saturday EUS with FNA as outpatient to confirm GIST tumor diagnosis. Has been discussed with patient. Pt examined and plan of care discussed with Dr Roberts Consultation Date/Type/Reason Admit Date/Time January 09, 2019 at 18:17 Initial Consult Date 01/16/19 Requesting Provider: KRISTIN PRYOR MD Date/Time of Note DATE: 02/09/19 TIME: 07:58 24 HR Interval Summary Free Text/Dictation C/O sciatica pain, receiving PT. Denies N/V, abd pain. Exam/Review of Systems Exam Vitals Vital Signs Date Temp Pulse Resp B/P (MAP) Pulse Ox O2 O2 Flow FiO2 Time Delivery Rate 02/09/19 97.6 67 17 104/59 100 07:45 (74) 02/08/19 Room Air 19:53 Intake and Output 02/08/19 02/08/19 02/09/19 1515:00 23:00 07:00 IntakeIntake Total 1000 ml 400 ml OutputOutput Total 1100 ml BalanceBalance -100 ml 400 ml Constitutional: alert, oriented Psych: no complaints Head: normocephalic Eyes: nl sclera, PERRL Respiratory: normal air movement Cardiovascular: regular rate and rhythm Gastrointestinal: soft, non-tender, bowel sounds Extremities: other (R foot is gauze wrap) 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: nl mental status Results Result Diagram: 02/08/19 0551 02/08/19 0551 Results 24hrs Laboratory Tests Test 02/08/19 08:13 02/08/19 12:00 02/08/19 17:21 02/08/19 20:22 Bedside Glucose 92 132 133 189 Medications Medication Current Medications Amiodarone HCl (Cordarone) 200 mg DAILY PO Last administered on 02/08/19 08:19; Admin Dose 200 MG; Start 01/10/19 at 09:00 Digoxin (Digoxin) 0.125 mg DAILY@1300 PO Last administered on 02/08/19 12:01; Admin Dose 0.125 MG; Start 01/10/19 at 13:00 Gabapentin (Neurontin) 600 mg DAILY PO Last administered on 02/08/19 08:16; Admin Dose 600 MG; Start 01/10/19 at 09:00 Empaglifozin (Jardiance) 25 mg DAILY PO Last administered on 02/08/19 08:18; Admin Dose 25 MG; Start 01/10/19 at 09:00 Linagliptin (Tradjenta) 5 mg DAILY PO Last administered on 02/08/19 08:18; Admin Dose 5 MG; Start 01/10/19 at 09:00 Diagnostic Test (Pha) (Accu-Chek) 1 ea AC MEALS AND BEDTIME XX Last administered on 02/08/19 21:12; Admin Dose 1 EA; Start 01/09/19 at 21:00 Acetaminophen (Tylenol Tab) 650 mg Q4H PRN PO MILD PAIN(1-3)OR ELEVATED TEMP; Start 01/09/19 at 20:30 Ondansetron HCl (Zofran Inj) 4 mg Q6H PRN IV NAUSEA AND/OR VOMITING Last administered on 01/14/19 19:59; Admin Dose 4 MG; Start 01/09/19 at 20:30 Diagnostic Test (Pha) (Accu-Chek) 1 ea 02 XX Last administered on 02/07/19 01:58; Admin Dose 1 EA; Start 01/10/19 at 02:00 Miscellaneous Information 1 ea NOTE XX ; Start 01/09/19 at 21:30 Glucose (Glutose) 15 gm Q15M PRN PO DECREASED GLUCOSE; Start 01/09/19 at 21:30 Glucose (Glutose) 22.5 gm Q15M PRN PO DECREASED GLUCOSE; Start 01/09/19 at 21:30 Dextrose (D50w Syringe) 25 ml Q15M PRN IV DECREASED GLUCOSE; Start 01/09/19 at 21:30 Dextrose (D50w Syringe) 50 ml Q15M PRN IV DECREASED GLUCOSE; Start 01/09/19 at 21:30 Glucagon (Glucagen) 1 mg Q15M PRN IM DECREASED GLUCOSE; Start 01/09/19 at 21:30 Glucose (Glutose) 15 gm Q15M PRN BUCCAL DECREASED GLUCOSE; Start 01/09/19 at 21:30 Insulin Glargine (Lantus) 18 units QHS SC Last administered on 02/08/19 21:10; Admin Dose 18 UNITS; Start 01/09/19 at 22:30 Carvedilol (Coreg) 3.125 mg BID PO Last administered on 02/08/19 08:18; Admin Dose 3.125 MG; Start 01/10/19 at 21:00 Vancomycin HCl (Vanco Iv Per Pharmacy) VANCOMYCIN PER PHARMACY PER PROTOCOL XX ; Start 01/11/19 at 02:30 Lisinopril (Zestril) 2.5 mg DAILY PO Last administered on 02/04/19 08:55; Admin Dose 2.5 MG; Start 01/13/19 at 09:00 Senna (Senokot) 1 tab DAILY PRN PO CONSTIPATION Last administered on 02/07/19 14:26; Admin Dose 1 TAB; Start 01/12/19 at 18:30 Neomycin/ Polymyxin/ Bacitracin (Neosporin Topical Oint) 1 applic DAILY TOP Last administered on 02/08/19 08:23; Admin Dose 1 APPLIC; Start 01/12/19 at 18:30 Cyanocobalamin (Vitamin B12 Inj) 1,000 mcg DAILY IM Last administered on 02/08/19 08:17; Admin Dose 1,000 MCG; Start 01/16/19 at 09:00 Pantoprazole (Protonix Tab) 40 mg DAILY@06 PO Last administered on 02/09/19 05:22; Admin Dose 40 MG; Start 01/17/19 at 06:00 Metronidazole 100 ml @ 100 mls/hr Q8 IVPB Last administered on 02/09/19 05:22; Admin Dose 100 MLS/HR; Start 01/16/19 at 22:00 Cefepime HCl 50 ml @ 100 mls/hr Q12 IVPB Last administered on 02/08/19at 20:19; Admin Dose 100 MLS/HR; Start 01/17/19 at 21:00 Oxycodone HCl (Oxycontin) 10 mg BID PO Last administered on 02/08/19 20:19; Admin Dose 10 MG; Start 01/18/19 at 15:00 Furosemide (Lasix) 20 mg BID DIURETICS IV Last administered on 02/09/19 05:23; Admin Dose 20 MG; Start 01/21/19 at 18:30 Vancomycin HCl 1.25 gm/Sodium Chloride 250 ml @ 83.333 mls/ hr Q12H IVPB Last administered on 02/09/19 01:22; Admin Dose 83.333 MLS/HR; Start 01/25/19 at 01:00 Insulin Aspart (Novolog Insulin Pen) NOVOLOG *MODERATE* ALGORITHM WITH MEALS BEDTIME SC Last administered on 02/08/19 21:09; Admin Dose 1 UNIT; Start 01/26/19 at 21:00 IV Flush (NS 10 ml) 10 ml PRN PRN IV IV PROTOCOL; Start 01/29/19 at 17:00 Hydromorphone HCl (Dilaudid) 1 mg Q4H PRN IV SEVERE PAIN LEVEL 7-10 Last administered on 02/09/19 05:24; Admin Dose 1 MG; Start 02/02/19 at 15:30 Docusate Sodium (Colace) 100 mg BID PO Last administered on 02/08/19 20:19; Admin Dose 100 MG; Start 02/07/19 at 21:00 Magnesium Hydroxide (Milk Of Mag) 30 ml BID PRN PO CONSTIPATION; Start 02/08/19 at 14:00 TAMELA BOWMAN Feb 09, 2019 08:00
[2019-02-09] MEDS: oxyCODONE (CR) 10 MG TAB [oxyCONTIN] PO SCH ×2 (08:16→21:26)
[2019-02-09] MEDS: GABAPENTIN 300 MG CAP PO SCH (08:17)
[2019-02-09] MEDS: AMIODARONE 200 MG TAB PO SCH (08:19)
[2019-02-09] MEDS: LISINOPRIL 5 MG TAB PO SCH (08:19)
[2019-02-09] MEDS: LINAGLIPTIN 5 MG TABLET PO SCH (08:20)
[2019-02-09] MEDS: DOCUSATE SODIUM 100 MG CAP PO SCH ×2 (08:21→21:17)
[2019-02-09] MEDS: EMPAGLIFLOZIN 10 MG TABLET PO SCH (08:21)
[2019-02-09] MEDS: CEFEPIME 2GM/50 ML (PMX) 50 ML IVPB SCH ×2 (08:21→21:12)
[2019-02-09] MEDS: NEOMYC/POLYMYX/BACIT 30 GM OINT TOP SCH (08:23)
[2019-02-09] MEDS: CYANOCOBALAMIN 1000 MCG INJ IM SCH (08:23)
--- NOTE | 2019-02-09 09:53 | PN ---
Date/Time of Note Date/Time of Note DATE: 02/09/19 TIME: 09:52 Assessment/Plan Lines/Catheters IV Catheter Type (from Nrs): PICC Line Avelar in Place (from Nrs): No Assessment/Plan Assessment/Plan L heel ulcer - apply Daikin's daily Scheduled for L pop-DP bypass on Saturday AM Subjective 24 Hr Interval Summary No new c/o. Exam/Review of Systems Vital Signs Vitals Vital Signs Date Temp Pulse Resp B/P (MAP) Pulse Ox O2 O2 Flow FiO2 Time Delivery Rate 02/09/19 67 08:01 02/09/19 97.6 17 104/59 100 07:45 (74) 02/08/19 Room Air 19:53 Intake and Output 02/08/19 02/08/19 02/09/19 1515:00 23:00 07:00 IntakeIntake Total 1000 ml 400 ml OutputOutput Total 1100 ml BalanceBalance -100 ml 400 ml Exam Free Text/Dictation L heel ulcer with pseudomonas colonization, size unchanged Results Result Diagram: 02/08/19 0551 02/08/19 0551 VERO MAHONEY MD Feb 09, 2019 09:53
[2019-02-09] MEDS: DIGOXIN 0.125 MG TAB PO SCH (12:16)
--- NOTE | 2019-02-09 12:38 | CONS ---
Assessment/Plan Assessment/Plan Hospital Course (Demo Recall) IMP: 1.Pre-op for peripheral bypass surgery. Lexiscan with no ischemia/+scar EF 28%. Echo EF 25%. 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 Recc: -ON tele -Continue digoxin -Continue coreg and zestril as tolerated only for treatment of cardiomyopathy -Continue amiodarone -Continue abx's and f/u cx data -Follow slowly improving volume status closely and continue lasix diuresis -local wound care -pnding LE bypass tenatively scheduled for this saturday -transfuse PRBC's as neccessary -further outpatient eval of likely GIST tumor Consultation Date/Type/Reason Admit Date/Time January 09, 2019 at 18:17 Initial Consult Date 01/10/19 Type of Consult Cardiology Reason for Consultation Preop/CHF Requesting Provider: KRISTIN PRYOR MD Date/Time of Note DATE: 02/09/19 TIME: 12:36 Exam/Review of Systems Vital Signs Vitals Vital Signs Date Temp Pulse Resp B/P (MAP) Pulse Ox O2 O2 Flow FiO2 Time Delivery Rate 02/09/19 97.9 82 16 93/64 (74) 99 11:46 02/08/19 Room Air 19:53 Intake and Output 02/08/19 02/08/19 02/09/19 1515:00 23:00 07:00 IntakeIntake Total 1000 ml 400 ml OutputOutput Total 1100 ml BalanceBalance -100 ml 400 ml Exam Exam Review of Systems: CONSTITUTIONAL: No fevers, chills. PULMONARY: No sob CARDIOVASCULAR: No chest pain/palpitations GASTROINTESTINAL: No nausea/vomiting. GENITOURINARY: No hematuria/dysuria. MUSCULOSKELETAL: pain in back PSYCHIATRIC: The patient denies depression. NEUROLOGIC: No weakness Constitutional: alert, oriented Psych: no complaints Head: normocephalic ENMT: mucosa pink and moist Neck: supple, jvd (9 cm water) Respiratory: clear to auscultation Cardiovascular: regular rate and rhythm Gastrointestinal: soft, non-tender Musculoskeletal: muscle tone (normal) Extremities: edema (trace), other (foot/anvkel covered by dressing) Labs Result Diagram: 02/08/19 0551 02/08/19 0551 Results 24hrs Laboratory Tests Test 02/08/19 17:21 02/08/19 20:22 02/09/19 07:57 02/09/19 11:58 Bedside Glucose 133 189 112 154 Medications Medications Current Medications Amiodarone HCl (Cordarone) 200 mg DAILY PO Last administered on 02/09/19 08:19; Admin Dose 200 MG; Start 01/10/19 at 09:00 Digoxin (Digoxin) 0.125 mg DAILY@1300 PO Last administered on 02/09/19 12:16; Admin Dose 0.125 MG; Start 01/10/19 at 13:00 Gabapentin (Neurontin) 600 mg DAILY PO Last administered on 02/09/19 08:17; Admin Dose 600 MG; Start 01/10/19 at 09:00 Empaglifozin (Jardiance) 25 mg DAILY PO Last administered on 02/09/19 08:21; Admin Dose 25 MG; Start 01/10/19 at 09:00 Linagliptin (Tradjenta) 5 mg DAILY PO Last administered on 02/09/19 08:20; Admin Dose 5 MG; Start 01/10/19 at 09:00 Diagnostic Test (Pha) (Accu-Chek) 1 ea AC MEALS AND BEDTIME XX Last administered on 02/09/19 12:13; Admin Dose 1 EA; Start 01/09/19 at 21:00 Acetaminophen (Tylenol Tab) 650 mg Q4H PRN PO MILD PAIN(1-3)OR ELEVATED TEMP; Start 01/09/19 at 20:30 Ondansetron HCl (Zofran Inj) 4 mg Q6H PRN IV NAUSEA AND/OR VOMITING Last administered on 01/14/19 19:59; Admin Dose 4 MG; Start 01/09/19 at 20:30 Diagnostic Test (Pha) (Accu-Chek) 1 ea 02 XX Last administered on 02/07/19 01:58; Admin Dose 1 EA; Start 01/10/19 at 02:00 Miscellaneous Information 1 ea NOTE XX ; Start 01/09/19 at 21:30 Glucose (Glutose) 15 gm Q15M PRN PO DECREASED GLUCOSE; Start 01/09/19 at 21:30 Glucose (Glutose) 22.5 gm Q15M PRN PO DECREASED GLUCOSE; Start 01/09/19 at 21:30 Dextrose (D50w Syringe) 25 ml Q15M PRN IV DECREASED GLUCOSE; Start 01/09/19 at 21:30 Dextrose (D50w Syringe) 50 ml Q15M PRN IV DECREASED GLUCOSE; Start 01/09/19 at 21:30 Glucagon (Glucagen) 1 mg Q15M PRN IM DECREASED GLUCOSE; Start 01/09/19 at 21:30 Glucose (Glutose) 15 gm Q15M PRN BUCCAL DECREASED GLUCOSE; Start 01/09/19 at 21:30 Insulin Glargine (Lantus) 18 units QHS SC Last administered on 02/08/19 21:10; Admin Dose 18 UNITS; Start 01/09/19 at 22:30 Carvedilol (Coreg) 3.125 mg BID PO Last administered on 02/08/19 08:18; Admin Dose 3.125 MG; Start 01/10/19 at 21:00 Vancomycin HCl (Vanco Iv Per Pharmacy) VANCOMYCIN PER PHARMACY PER PROTOCOL XX ; Start 01/11/19 at 02:30 Lisinopril (Zestril) 2.5 mg DAILY PO Last administered on 02/09/19 08:19; Admin Dose 2.5 MG; Start 01/13/19 at 09:00 Senna (Senokot) 1 tab DAILY PRN PO CONSTIPATION Last administered on 02/07/19 14:26; Admin Dose 1 TAB; Start 01/12/19 at 18:30 Neomycin/ Polymyxin/ Bacitracin (Neosporin Topical Oint) 1 applic DAILY TOP Last administered on 02/09/19 08:23; Admin Dose 1 APPLIC; Start 01/12/19 at 18:30 Cyanocobalamin (Vitamin B12 Inj) 1,000 mcg DAILY IM Last administered on 02/09/19 08:23; Admin Dose 1,000 MCG; Start 01/16/19 at 09:00 Pantoprazole (Protonix Tab) 40 mg DAILY@06 PO Last administered on 02/09/19 05:22; Admin Dose 40 MG; Start 01/17/19 at 06:00 Metronidazole 100 ml @ 100 mls/hr Q8 IVPB Last administered on 02/09/19 05:22; Admin Dose 100 MLS/HR; Start 01/16/19 at 22:00 Cefepime HCl 50 ml @ 100 mls/hr Q12 IVPB Last administered on 02/09/19 08:21; Admin Dose 100 MLS/HR; Start 01/17/19 at 21:00 Oxycodone HCl (Oxycontin) 10 mg BID PO Last administered on 02/09/19 08:16; Admin Dose 10 MG; Start 01/18/19 at 15:00 Furosemide (Lasix) 20 mg BID DIURETICS IV Last administered on 02/09/19 05:23; Admin Dose 20 MG; Start 01/21/19 at 18:30 Vancomycin HCl 1.25 gm/Sodium Chloride 250 ml @ 83.333 mls/ hr Q12H IVPB Last administered on 02/09/19 12:08; Admin Dose 83.333 MLS/HR; Start 01/25/19 at 01:00 Insulin Aspart (Novolog Insulin Pen) NOVOLOG *MODERATE* ALGORITHM WITH MEALS BEDTIME SC Last administered on 02/09/19 12:07; Admin Dose 2 UNIT; Start 01/26/19 at 21:00 IV Flush (NS 10 ml) 10 ml PRN PRN IV IV PROTOCOL; Start 01/29/19 at 17:00 Hydromorphone HCl (Dilaudid) 1 mg Q4H PRN IV SEVERE PAIN LEVEL 7-10 Last administered on 02/09/19 09:17; Admin Dose 1 MG; Start 02/02/19 at 15:30 Docusate Sodium (Colace) 100 mg BID PO Last administered on 02/09/19 08:21; Admin Dose 100 MG; Start 02/07/19 at 21:00 Magnesium Hydroxide (Milk Of Mag) 30 ml BID PRN PO CONSTIPATION; Start 02/08/19 at 14:00 Miscellaneous Information (*Order Clarification Bulletin) MEDICATION REQUIRES CLARIFICATI... Q8H XX ; Start 02/09/19 at 09:30 Sodium Hypochlorite (Dakins Diluted (/40)) 1 applic DAILY TP ; Start 02/09/19 at 13:00 Miscellaneous Information (*Rx Drug Level Order Reminder*) VANCO TROUGH 02/10 @ 1,200 1200 ONCE XX ; Start 02/10/19 at 12:00; Stop 02/10/19 at 12:01 VERO ARELLANO Feb 09, 2019 12:38
[2019-02-09] MEDS: DAKINS 0.0125%(1/40) 473 ML SOLUTION TP SCH (14:08)
--- NOTE | 2019-02-09 16:44 | CONS ---
Assessment/Plan Assessment/Plan Hospital Course (Demo Recall) - polymicrobial infection of non-healing ulcer of R heel. CT on 01/10/2019 did not show evidence of OM. ESR 26 on 01/09/2019 and 37 on 01/12/2019; superficial wound culture grew pseudomonas, E. Coli, enterococcus (isolated from broth only), scant proteus, and scant CoNS. ESR 23 and repeat culture on 02/06/2019 grew pseudomonas - s/p Debridement of the right calcaneal ulceration 01/13/2019; intraop culture grew E. Coli, Proteus, and Enterococcus - chronic wound of R heel, in the past the wound culture grew E. coli. repeat culture on 02/06/2019 grew pseudomonas - h/o OM of R foot, h/o 6 weeks of IV vancomycin and ceftriaxone in 2018. 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 I also recommend debridement of devitalized tissue of R heel - we recommend 6 weeks of vancomycin iv (01/11/2019-), cefepime (restart 01/17/2019-), and metronidazole IV (01/16/2019-) through 02/22/19 - continue local wound care with topical antiseptic (Dakin's solution) - If Pt goes home, IV metronidazole may be replaced with PO metronidazole - please check weekly CBC BMP and ESR while Pt's on IV antibiotics Management d/w patient, KAY Gustafson, and with Dr. Urbano Consultation Date/Type/Reason Admit Date/Time January 09, 2019 at 18:17 Initial Consult Date 01/16/19 Type of Consult Infectious Disease Requesting Provider: KRISTIN PRYOR MD Date/Time of Note DATE: 02/09/19 TIME: 16:43 24 HR Interval Summary Free Text/Dictation C/o same L sciatica pain radiating down LLE rating 7/10. No new complaints. Wound care changed to Dakin's solution per d/w nursing. Exam/Review of Systems Exam Vitals Vital Signs Date Temp Pulse Resp B/P (MAP) Pulse Ox O2 O2 Flow FiO2 Time Delivery Rate 02/09/19 98.4 69 16 91/47 (62) 99 15:27 02/08/19 Room Air 19:53 Intake and Output 02/08/19 02/08/19 02/09/19 1515:00 23:00 07:00 IntakeIntake Total 1000 ml 400 ml OutputOutput Total 1100 ml BalanceBalance -100 ml 400 ml Exam Constitutional: alert, oriented, well developed Psych: no complaints, nl mood/affect Head: normocephalic, atraumatic Eyes: nl conjunctiva, nl lids, nl sclera ENMT: nl external ears & nose, nl nasal mucosa & septum, mucosa pink and moist Neck: supple Respiratory: clear to auscultation, normal air movement Cardiovascular: regular rate and rhythm, nl pulses Gastrointestinal: soft, non-tender Musculoskeletal: swelling (R>L foot) Extremities: edema (trace RLE edema), other (R foot is wrapped with Kerlix c/d/i; photos in chart and nurses note reviewed) 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: nl mental status, nl speech Skin: nl turgor, other (RUE PICC c/d/i; R heel is wrapped); No rash or lesions Results Result Diagram: 02/08/19 0551 02/08/19 0551 Results 24hrs Laboratory Tests Test 02/08/19 17:21 02/08/19 20:22 02/09/19 07:57 02/09/19 11:58 Bedside Glucose 133 189 112 154 Medications Medication Current Medications Amiodarone HCl (Cordarone) 200 mg DAILY PO Last administered on 02/09/19at 08:19; Admin Dose 200 MG; Start 01/10/19 at 09:00 Digoxin (Digoxin) 0.125 mg DAILY@1300 PO Last administered on 02/09/19at 12:16; Admin Dose 0.125 MG; Start 01/10/19 at 13:00 Gabapentin (Neurontin) 600 mg DAILY PO Last administered on 02/09/19at 08:17; Admin Dose 600 MG; Start 01/10/19 at 09:00 Empaglifozin (Jardiance) 25 mg DAILY PO Last administered on 02/09/19 08:21; Admin Dose 25 MG; Start 01/10/19 at 09:00 Linagliptin (Tradjenta) 5 mg DAILY PO Last administered on 02/09/19 08:20; Admin Dose 5 MG; Start 01/10/19 at 09:00 Diagnostic Test (Pha) (Accu-Chek) 1 ea AC MEALS AND BEDTIME XX Last administered on 02/09/19 12:13; Admin Dose 1 EA; Start 01/09/19 at 21:00 Acetaminophen (Tylenol Tab) 650 mg Q4H PRN PO MILD PAIN(1-3)OR ELEVATED TEMP; Start 01/09/19 at 20:30 Ondansetron HCl (Zofran Inj) 4 mg Q6H PRN IV NAUSEA AND/OR VOMITING Last administered on 01/14/19 19:59; Admin Dose 4 MG; Start 01/09/19 at 20:30 Diagnostic Test (Pha) (Accu-Chek) 1 ea 02 XX Last administered on 02/07/19 01:58; Admin Dose 1 EA; Start 01/10/19 at 02:00 Miscellaneous Information 1 ea NOTE XX ; Start 01/09/19 at 21:30 Glucose (Glutose) 15 gm Q15M PRN PO DECREASED GLUCOSE; Start 01/09/19 at 21:30 Glucose (Glutose) 22.5 gm Q15M PRN PO DECREASED GLUCOSE; Start 01/09/19 at 21:30 Dextrose (D50w Syringe) 25 ml Q15M PRN IV DECREASED GLUCOSE; Start 01/09/19 at 21:30 Dextrose (D50w Syringe) 50 ml Q15M PRN IV DECREASED GLUCOSE; Start 01/09/19 at 21:30 Glucagon (Glucagen) 1 mg Q15M PRN IM DECREASED GLUCOSE; Start 01/09/19 at 21:30 Glucose (Glutose) 15 gm Q15M PRN BUCCAL DECREASED GLUCOSE; Start 01/09/19 at 21:30 Insulin Glargine (Lantus) 18 units QHS SC Last administered on 02/08/19 21:10; Admin Dose 18 UNITS; Start 01/09/19 at 22:30 Carvedilol (Coreg) 3.125 mg BID PO Last administered on 02/08/19 08:18; Admin Dose 3.125 MG; Start 01/10/19 at 21:00 Vancomycin HCl (Vanco Iv Per Pharmacy) VANCOMYCIN PER PHARMACY PER PROTOCOL XX ; Start 01/11/19 at 02:30 Lisinopril (Zestril) 2.5 mg DAILY PO Last administered on 02/09/19 08:19; Admin Dose 2.5 MG; Start 01/13/19 at 09:00 Senna (Senokot) 1 tab DAILY PRN PO CONSTIPATION Last administered on 02/07/19 14:26; Admin Dose 1 TAB; Start 01/12/19 at 18:30 Neomycin/ Polymyxin/ Bacitracin (Neosporin Topical Oint) 1 applic DAILY TOP Last administered on 02/09/19 08:23; Admin Dose 1 APPLIC; Start 01/12/19 at 18:30 Cyanocobalamin (Vitamin B12 Inj) 1,000 mcg DAILY IM Last administered on 02/09/19 08:23; Admin Dose 1,000 MCG; Start 01/16/19 at 09:00 Pantoprazole (Protonix Tab) 40 mg DAILY@06 PO Last administered on 02/09/19 05:22; Admin Dose 40 MG; Start 01/17/19 at 06:00 Metronidazole 100 ml @ 100 mls/hr Q8 IVPB Last administered on 02/09/19 14:08; Admin Dose 100 MLS/HR; Start 01/16/19 at 22:00 Cefepime HCl 50 ml @ 100 mls/hr Q12 IVPB Last administered on 02/09/19 08:21; Admin Dose 100 MLS/HR; Start 01/17/19 at 21:00 Oxycodone HCl (Oxycontin) 10 mg BID PO Last administered on 02/09/19 08:16; Admin Dose 10 MG; Start 01/18/19 at 15:00 Furosemide (Lasix) 20 mg BID DIURETICS IV Last administered on 02/09/19 05:23; Admin Dose 20 MG; Start 01/21/19 at 18:30 Vancomycin HCl 1.25 gm/Sodium Chloride 250 ml @ 83.333 mls/ hr Q12H IVPB Last administered on 02/09/19 12:08; Admin Dose 83.333 MLS/HR; Start 01/25/19 at 01:00 Insulin Aspart (Novolog Insulin Pen) NOVOLOG *MODERATE* ALGORITHM WITH MEALS BEDTIME SC Last administered on 02/09/19at 12:07; Admin Dose 2 UNIT; Start 01/26/19 at 21:00 IV Flush (NS 10 ml) 10 ml PRN PRN IV IV PROTOCOL; Start 01/29/19 at 17:00 Hydromorphone HCl (Dilaudid) 1 mg Q4H PRN IV SEVERE PAIN LEVEL 7-10 Last administered on 02/09/19at 14:04; Admin Dose 1 MG; Start 02/02/19 at 15:30 Docusate Sodium (Colace) 100 mg BID PO Last administered on 02/09/19at 08:21; Admin Dose 100 MG; Start 02/07/19 at 21:00 Magnesium Hydroxide (Milk Of Mag) 30 ml BID PRN PO CONSTIPATION; Start 02/08/19 at 14:00 Miscellaneous Information (*Order Clarification Bulletin) MEDICATION REQUIRES CLARIFICATI... Q8H XX ; Start 02/09/19 at 09:30 Sodium Hypochlorite (Dakins Diluted (40)) 1 applic DAILY TP Last administered on 02/09/19at 14:08; Admin Dose 1 APPLIC; Start 02/09/19 at 13:00 Miscellaneous Information (*Rx Drug Level Order Reminder*) VANCO TROUGH 02/10 @ 1,200 1200 ONCE XX ; Start 02/10/19 at 12:00; Stop 02/10/19 at 12:01 LE HUTCHINS NP Feb 09, 2019 16:44
--- NOTE | 2019-02-09 16:59 | PN ---
Date/Time of Note Date/Time of Note DATE: 02/09/19 TIME: 16:59 Assessment/Plan VTE Prophylaxis Risk score (from Nsg)>0 risk: 4 SCD applied (from Ns): No SCD contraindicated: other Pharmacological prophylaxis: NA/contraindicated Pharm contraindication: anticoag not tolerated Lines/Catheters IV Catheter Type (from Nrsg): PICC Line Central line still needed: Yes Urinary Cath still in place: No Reason Cath still needed: urinary retention Assessment/Plan Hospital Course Patient remains hemodynamically stable, complains of sciatica pain for which patient gets Dilaudid every 4 hours status post evaluation by pain management, continue current pain management. Plan for vascular surgery on Saturday by Dr. Sheppard. 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 EUS and FNA as an outpatient to confirm GIST tumor diagnosis. Continue PPI. -New onset of anemia and hypotension requiring blood transfusion on 01/15/2019, stool for OB is negative. -Right heel necrotic wound. Dr. Mata is following in podiatry consultation. St atus post debridement. Continue antibiotics per ID. Dr. Urbano is following in infection disease consultation. Will require total of 6 weeks of Vancomycin IV, Cefepime IV, and Flagyl IV through 02/22/19. -Chronic peripheral vascular disease, history of angioplasty x2. Dr. Sheppard is following in vascular surgery consultation. Plan for a right pop DP bypass as an outpatient. -Coronary artery disease, status post coronary artery bypass graft. -Cardiomyopathy with ejection fraction of 25%. Continue Coreg. Dr. Foster is following in cardiology consultation. -Status post AICD. -Hx of Hypertension. -Diabetes hemoglobin A1c 7.6. Continue Lantus and NovoLog. -Right knee contusion and abrasion status post fall. Status post evaluation by Dr. Zelaya and orthopedic surgery. No signs of fracture or dystrophic dislocation. -Chronic low back pain with significant spondylolisthesis grade II at the level of L5 to S1. Further recommendations based on clinical course. Plan of care discussed with Dr. Mann. Result Diagram: 02/08/19 0551 02/08/19 0551 Results 24hrs Laboratory Tests Test 02/08/19 17:21 02/08/19 20:22 02/09/19 07:57 02/09/19 11:58 Bedside Glucose 133 189 112 154 Exam/Review of Systems Exam Vitals Vital Signs Date Temp Pulse Resp B/P (MAP) Pulse Ox O2 O2 Flow FiO2 Time Delivery Rate 02/09/19 86 16:01 02/09/19 98.4 16 91/47 (62) 99 15:27 02/08/19 Room Air 19:53 Intake and Output 02/08/19 02/08/19 02/09/19 1515:00 23:00 07:00 IntakeIntake Total 1000 ml 400 ml OutputOutput Total 1100 ml BalanceBalance -100 ml 400 ml Exam Constitutional: alert, oriented Respiratory: clear to auscultation Cardiovascular: regular rhythm and rate, AICD Gastrointestinal: soft, non-tender Extremities: normal pulses, other (Right heel wound) Right chest triple lumen catheter Results Results 24hrs Laboratory Tests Test 02/08/19 17:21 02/08/19 20:22 02/09/19 07:57 02/09/19 11:58 Bedside Glucose 133 189 112 154 Medications Medication Current Medications Amiodarone HCl (Cordarone) 200 mg DAILY PO Last administered on 02/09/19 08:19; Admin Dose 200 MG; Start 01/10/19 at 09:00 Digoxin (Digoxin) 0.125 mg DAILY@1300 PO Last administered on 02/09/19 12:16; Admin Dose 0.125 MG; Start 01/10/19 at 13:00 Gabapentin (Neurontin) 600 mg DAILY PO Last administered on 02/09/19 08:17; Admin Dose 600 MG; Start 01/10/19 at 09:00 Empaglifozin (Jardiance) 25 mg DAILY PO Last administered on 02/09/19 08:21; Ad min Dose 25 MG; Start 01/10/19 at 09:00 Linagliptin (Tradjenta) 5 mg DAILY PO Last administered on 02/09/19 08:20; Admin Dose 5 MG; Start 01/10/19 at 09:00 Diagnostic Test (Pha) (Accu-Chek) 1 ea AC MEALS AND BEDTIME XX Last administered on 02/09/19 12:13; Admin Dose 1 EA; Start 01/09/19 at 21:00 Acetaminophen (Tylenol Tab) 650 mg Q4H PRN PO MILD PAIN(1-3)OR ELEVATED TEMP; Start 01/09/19 at 20:30 Ondansetron HCl (Zofran Inj) 4 mg Q6H PRN IV NAUSEA AND/OR VOMITING Last administered on 01/14/19at 19:59; Admin Dose 4 MG; Start 01/09/19 at 20:30 Diagnostic Test (Pha) (Accu-Chek) 1 ea 02 XX Last administered on 02/07/19at 01:58; Admin Dose 1 EA; Start 01/10/19 at 02:00 Miscellaneous Information 1 ea NOTE XX ; Start 01/09/19 at 21:30 Glucose (Glutose) 15 gm Q15M PRN PO DECREASED GLUCOSE; Start 01/09/19 at 21:30 Glucose (Glutose) 22.5 gm Q15M PRN PO DECREASED GLUCOSE; Start 01/09/19 at 21:30 Dextrose (D50w Syringe) 25 ml Q15M PRN IV DECREASED GLUCOSE; Start 01/09/19 at 21:30 Dextrose (D50w Syringe) 50 ml Q15M PRN IV DECREASED GLUCOSE; Start 01/09/19 at 21:30 Glucagon (Glucagen) 1 mg Q15M PRN IM DECREASED GLUCOSE; Start 01/09/19 at 21:30 Glucose (Glutose) 15 gm Q15M PRN BUCCAL DECREASED GLUCOSE; Start 01/09/19 at 21:30 Insulin Glargine (Lantus) 18 units QHS SC Last administered on 02/08/19at 21:10; Admin Dose 18 UNITS; Start 01/09/19 at 22:30 Carvedilol (Coreg) 3.125 mg BID PO Last administered on 02/08/19at 08:18; Admin Dose 3.125 MG; Start 01/10/19 at 21:00 Vancomycin HCl (Vanco Iv Per Pharmacy) VANCOMYCIN PER PHARMACY PER PROTOCOL XX ; Start 01/11/19 at 02:30 Lisinopril (Zestril) 2.5 mg DAILY PO Last administered on 02/09/19at 08:19; Admin Dose 2.5 MG; Start 01/13/19 at 09:00 Senna (Senokot) 1 tab DAILY PRN PO CONSTIPATION Last administered on 02/07/19at 14:26; Admin Dose 1 TAB; Start 01/12/19 at 18:30 Neomycin/ Polymyxin/ Bacitracin (Neosporin Topical Oint) 1 applic DAILY TOP Last administered on 02/09/19 08:23; Admin Dose 1 APPLIC; Start 01/12/19 at 18:30 Cyanocobalamin (Vitamin B12 Inj) 1,000 mcg DAILY IM Last administered on 02/09/19 08:23; Admin Dose 1,000 MCG; Start 01/16/19 at 09:00 Pantoprazole (Protonix Tab) 40 mg DAILY@06 PO Last administered on 02/09/19 05:22; Admin Dose 40 MG; Start 01/17/19 at 06:00 Metronidazole 100 ml @ 100 mls/hr Q8 IVPB Last administered on 02/09/19 14:08; Admin Dose 100 MLS/HR; Start 01/16/19 at 22:00 Cefepime HCl 50 ml @ 100 mls/hr Q12 IVPB Last administered on 02/09/19 08:21; Admin Dose 100 MLS/HR; Start 01/17/19 at 21:00 Oxycodone HCl (Oxycontin) 10 mg BID PO Last administered on 02/09/19 08:16; Admin Dose 10 MG; Start 01/18/19 at 15:00 Furosemide (Lasix) 20 mg BID DIURETICS IV Last administered on 02/09/19 05:23; Admin Dose 20 MG; Start 01/21/19 at 18:30 Vancomycin HCl 1.25 gm/Sodium Chloride 250 ml @ 83.333 mls/ hr Q12H IVPB Last administered on 02/09/19 12:08; Admin Dose 83.333 MLS/HR; Start 01/25/19 at 01:00 Insulin Aspart (Novolog Insulin Pen) NOVOLOG *MODERATE* ALGORITHM WITH MEALS BEDTIME SC Last administered on 02/09/19 12:07; Admin Dose 2 UNIT; Start 01/26/19 at 21:00 IV Flush (NS 10 ml) 10 ml PRN PRN IV IV PROTOCOL; Start 01/29/19 at 17:00 Hydromorphone HCl (Dilaudid) 1 mg Q4H PRN IV SEVERE PAIN LEVEL 7-10 Last administered on 02/09/19 14:04; Admin Dose 1 MG; Start 02/02/19 at 15:30 Docusate Sodium (Colace) 100 mg BID PO Last administered on 02/09/19 08:21; Admin Dose 100 MG; Start 02/07/19 at 21:00 Magnesium Hydroxide (Milk Of Mag) 30 ml BID PRN PO CONSTIPATION; Start 02/08/19 at 14:00 Miscellaneous Information (*Order Clarification Bulletin) MEDICATION REQUIRES CLARIFICATI... Q8H XX ; Start 02/09/19 at 09:30 Sodium Hypochlorite (Dakins Diluted ()) 1 applic DAILY TP Last administered on 02/09/19at 14:08; Admin Dose 1 APPLIC; Start 02/09/19 at 13:00 Miscellaneous Information (*Rx Drug Level Order Reminder*) VANCO TROUGH 02/10 @ 1,200 1200 ONCE XX ; Start 02/10/19 at 12:00; Stop 02/10/19 at 12:01 RAMESH SOLORZANO Feb 09, 2019 16:59
[2019-02-09] MEDS: INSULIN GLARGINE [LANTus] (100 UNITS/ML) SYG SC SCH (21:32)
[2019-02-09] MEDS: (Nursing Note) XX SCH (22:00)
[2019-02-10] VITALS (9 sets, daily range): BP systolic 87–112; BP diastolic 52–69; PULSE 71–94; RESP 16–20
[2019-02-10] MEDS: VANCOMYCIN HCL 1.25 GM in SOD CHLORIDE 0.9% 250 ML IVPB SCH ×2 (01:39→13:44)
[2019-02-10] MEDS: ACCU-CHEK XX SCH ×4 (01:51→17:44)
[2019-02-10] MEDS: HYDROmorphONE 1 MG/ML SYG IV PRN ×6 (01:53→21:59)
[2019-02-10] MEDS: FUROSEMIDE 20 MG INJ IV SCH ×2 (06:00→18:07)
[2019-02-10] MEDS: PANTOPRAZOLE (EC) 40 MG TAB PO SCH (06:03)
[2019-02-10] MEDS: metroNIDAZOLE 500 MG/NS (PMX) 100 ML IVPB SCH ×3 (06:03→21:59)
--- NOTE | 2019-02-10 07:36 | CONS ---
Assessment/Plan Assessment/Plan Hospital Course (Demo Recall) 63 yo male 1. Right heel necrotic wound. -s/p debridement of rt foot, silvadene cream 2. Cardiomyopathy with ejection fraction of 20% to 30%. 3. Peripheral vascular disease status post PCI, right lower extremity. 4. Coronary artery disease status post coronary artery bypass graft. 5. Status post automatic implantable cardioverter-defibrillator. 6. Hypertension. 7. Diabetes mellitus. 8. Anemia. Patient has a significant drop in hematocrit. So far, clinically, there is no evidence of obvious GI bleeding. 9. Ovoid mass or filling defect arising from lesser curvature of stomach. -GIST tumor 10. Pt is pre op for peripheral artery bypass surgery, plan for surgery Tuesday 02/13 Plan Consider muscle relaxant to help patient's lower back pain, sciatic pain at night. RLE surgery planned for Saturday EUS with FNA as outpatient to confirm GIST tumor diagnosis. Has been discussed with patient. Pt examined and plan of care discussed with Dr Roberts Consultation Date/Type/Reason Admit Date/Time January 09, 2019 at 18:17 Initial Consult Date 01/16/19 Requesting Provider: KRISTIN PRYOR MD Date/Time of Note DATE: 02/10/19 TIME: 07:33 24 HR Interval Summary Free Text/Dictation No evidence of GI bleeding. Tolerating PO diet. BM qd. C/O sciatic pain in terfering with sleep. Exam/Review of Systems Exam Vitals Vital Signs Date Temp Pulse Resp B/P (MAP) Pulse Ox O2 O2 Flow FiO2 Time Delivery Rate 02/10/19 72 04:00 02/10/19 98.1 18 97/52 (67) 92 04:00 02/08/19 Room Air 19:53 Intake and Output 02/09/19 02/09/19 02/10/19 1515:00 23:00 07:00 IntakeIntake Total 50 ml 1200 ml 500 ml OutputOutput Total 2200 ml BalanceBalance 50 ml -1000 ml 500 ml Constitutional: alert, oriented Psych: no complaints Head: normocephalic Eyes: nl sclera, PERRL ENMT: mucosa pink and moist Respiratory: normal air movement Cardiovascular: regular rate and rhythm Gastrointestinal: soft, non-tender, bowel sounds Extremities: other (rt sciatic pain, lt foot in clean and dry guaze wrap) 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: nl mental status Results Result Diagram: 02/08/19 0551 02/08/19 0551 Results 24hrs Laboratory Tests Test 02/09/19 07:57 02/09/19 11:58 02/09/19 17:20 02/09/19 21:27 Bedside Glucose 112 154 119 157 Test 02/10/19 01:52 Bedside Glucose 102 Medications Medication Current Medications Amiodarone HCl (Cordarone) 200 mg DAILY PO Last administered on 02/09/19 08:19; Admin Dose 200 MG; Start 01/10/19 at 09:00 Digoxin (Digoxin) 0.125 mg DAILY@1300 PO Last administered on 02/09/19 12:16; Admin Dose 0.125 MG; Start 01/10/19 at 13:00 Gabapentin (Neurontin) 600 mg DAILY PO Last administered on 02/09/19 08:17; Admin Dose 600 MG; Start 01/10/19 at 09:00 Empaglifozin (Jardiance) 25 mg DAILY PO Last administered on 02/09/19 08:21; Admin Dose 25 MG; Start 01/10/19 at 09:00 Linagliptin (Tradjenta) 5 mg DAILY PO Last administered on 02/09/19 08:20; Admin Dose 5 MG; Start 01/10/19 at 09:00 Diagnostic Test (Pha) (Accu-Chek) 1 ea AC MEALS AND BEDTIME XX Last administered on 02/09/19 21:26; Admin Dose 1 EA; Start 01/09/19 at 21:00 Acetaminophen (Tylenol Tab) 650 mg Q4H PRN PO MILD PAIN(1-3)OR ELEVATED TEMP; Start 01/09/19 at 20:30 Ondansetron HCl (Zofran Inj) 4 mg Q6H PRN IV NAUSEA AND/OR VOMITING Last administered on 01/14/19 19:59; Admin Dose 4 MG; Start 01/09/19 at 20:30 Diagnostic Test (Pha) (Accu-Chek) 1 ea 02 XX Last administered on 02/10/19 01:51; Admin Dose 1 EA; Start 01/10/19 at 02:00 Miscellaneous Information 1 ea NOTE XX ; Start 01/09/19 at 21:30 Glucose (Glutose) 15 gm Q15M PRN PO DECREASED GLUCOSE; Start 01/09/19 at 21:30 Glucose (Glutose) 22.5 gm Q15M PRN PO DECREASED GLUCOSE; Start 01/09/19 at 21:30 Dextrose (D50w Syringe) 25 ml Q15M PRN IV DECREASED GLUCOSE; Start 01/09/19 at 21:30 Dextrose (D50w Syringe) 50 ml Q15M PRN IV DECREASED GLUCOSE; Start 01/09/19 at 21:30 Glucagon (Glucagen) 1 mg Q15M PRN IM DECREASED GLUCOSE; Start 01/09/19 at 21:30 Glucose (Glutose) 15 gm Q15M PRN BUCCAL DECREASED GLUCOSE; Start 01/09/19 at 21:30 Insulin Glargine (Lantus) 18 units QHS SC Last administered on 02/09/19 21:32; Admin Dose 18 UNITS; Start 01/09/19 at 22:30 Carvedilol (Coreg) 3.125 mg BID PO Last administered on 02/08/19 08:18; Admin Dose 3.125 MG; Start 01/10/19 at 21:00 Vancomycin HCl (Vanco Iv Per Pharmacy) VANCOMYCIN PER PHARMACY PER PROTOCOL XX ; Start 01/11/19 at 02:30 Lisinopril (Zestril) 2.5 mg DAILY PO Last administered on 02/09/19 08:19; Admin Dose 2.5 MG; Start 01/13/19 at 09:00 Senna (Senokot) 1 tab DAILY PRN PO CONSTIPATION Last administered on 02/07/19 14:26; Admin Dose 1 TAB; Start 01/12/19 at 18:30 Neomycin/ Polymyxin/ Bacitracin (Neosporin Topical Oint) 1 applic DAILY TOP Last administered on 02/09/19 08:23; Admin Dose 1 APPLIC; Start 01/12/19 at 18:30 Cyanocobalamin (Vitamin B12 Inj) 1,000 mcg DAILY IM Last administered on 02/09/19 08:23; Admin Dose 1,000 MCG; Start 01/16/19 at 09:00 Pantoprazole (Protonix Tab) 40 mg DAILY@06 PO Last administered on 02/10/19 06:03; Admin Dose 40 MG; Start 01/17/19 at 06:00 Metronidazole 100 ml @ 100 mls/hr Q8 IVPB Last administered on 02/10/19 06:03; Admin Dose 100 MLS/HR; Start 01/16/19 at 22:00 Cefepime HCl 50 ml @ 100 mls/hr Q12 IVPB Last administered on 02/09/19 21:12; Admin Dose 100 MLS/HR; Start 01/17/19 at 21:00 Oxycodone HCl (Oxycontin) 10 mg BID PO Last administered on 02/09/19 21:26; Admin Dose 10 MG; Start 01/18/19 at 15:00 Furosemide (Lasix) 20 mg BID DIURETICS IV Last administered on 02/09/19 17:25; Admin Dose 20 MG; Start 01/21/19 at 18:30 Vancomycin HCl 1.25 gm/Sodium Chloride 250 ml @ 83.333 mls/ hr Q12H IVPB Last administered on 02/10/19 01:39; Admin Dose 83.333 MLS/HR; Start 01/25/19 at 01:00 Insulin Aspart (Novolog Insulin Pen) NOVOLOG *MODERATE* ALGORITHM WITH MEALS BEDTIME SC Last administered on 02/09/19 12:07; Admin Dose 2 UNIT; Start 01/26/19 at 21:00 IV Flush (NS 10 ml) 10 ml PRN PRN IV IV PROTOCOL; Start 01/29/19 at 17:00 Hydromorphone HCl (Dilaudid) 1 mg Q4H PRN IV SEVERE PAIN LEVEL 7-10 Last administered on 02/10/19 06:04; Admin Dose 1 MG; Start 02/02/19 at 15:30 Docusate Sodium (Colace) 100 mg BID PO Last administered on 02/09/19 21:17; Admin Dose 100 MG; Start 02/07/19 at 21:00 Magnesium Hydroxide (Milk Of Mag) 30 ml BID PRN PO CONSTIPATION; Start 02/08/19 at 14:00 Miscellaneous Information (*Order Clarification Bulletin) MEDICATION REQUIRES CLARIFICATI... Q8H XX ; Start 02/09/19 at 09:30 Sodium Hypochlorite (Dakins Diluted (40)) 1 applic DAILY TP Last administered on 02/09/19 14:08; Admin Dose 1 APPLIC; Start 02/09/19 at 13:00 Miscellaneous Information (*Rx Drug Level Order Reminder*) VANCO TROUGH 02/10 @ 1,200 1200 ONCE XX ; Start 02/10/19 at 12:00; Stop 02/10/19 at 12:01 Miscellaneous Information 1 ea Q12 XX ; Start 02/09/19 at 22:00 TAMELA BOWMAN Feb 10, 2019 07:36
[2019-02-10] MEDS: INSULIN ASPART [NOVOLOG] 3 ML PEN SC SCH ×4 (07:48→21:00)
[2019-02-10] MEDS: AMIODARONE 200 MG TAB PO SCH (09:00)
[2019-02-10] MEDS: LISINOPRIL 5 MG TAB PO SCH (09:00)
[2019-02-10] MEDS: (Nursing Note) XX SCH ×2 (09:00→21:00)
[2019-02-10] MEDS: LINAGLIPTIN 5 MG TABLET PO SCH (09:20)
[2019-02-10] MEDS: GABAPENTIN 300 MG CAP PO SCH (09:20)
[2019-02-10] MEDS: EMPAGLIFLOZIN 10 MG TABLET PO SCH (09:20)
[2019-02-10] MEDS: DOCUSATE SODIUM 100 MG CAP PO SCH ×2 (09:20→21:15)
[2019-02-10] MEDS: CYANOCOBALAMIN 1000 MCG INJ IM SCH (09:21)
[2019-02-10] MEDS: CEFEPIME 2GM/50 ML (PMX) 50 ML IVPB SCH ×2 (09:42→21:10)
[2019-02-10] MEDS: oxyCODONE (CR) 10 MG TAB [oxyCONTIN] PO SCH ×2 (09:42→21:15)
[2019-02-10] MEDS: DAKINS 0.0125%(1/40) 473 ML SOLUTION TP SCH (09:44)
--- NOTE | 2019-02-10 09:49 | CONS ---
Consult Date/Type/Reason Admit Date/Time January 09, 2019 at 18:17 Initial Consult Date 01/10/19 Requesting Provider: KRISTIN PRYOR MD Date/Time of Note DATE: 02/10/19 TIME: 09:47 Subjective NO acute events - reports sciatica now - dispo planned for Saturday - BP in good range. ROS: No fever, no chills, no nausea, no vomiting, no diarrhea/constipation Objective Vitals Vital Signs Date Temp Pulse Resp B/P (MAP) Pulse Ox O2 O2 Flow FiO2 Time Delivery Rate 02/10/19 88 08:12 02/10/19 97.3 16 99/64 (76) 96 07:39 02/08/19 Room Air 19:53 Intake and Output 02/09/19 02/09/19 02/10/19 1414:59 22:59 06:59 IntakeIntake Total 50 ml 1200 ml 500 ml OutputOutput Total 2200 ml BalanceBalance 50 ml -1000 ml 500 ml Exam General: WN/WD/NAD, AOx 3 HEENT: Unicetric/atraumatic/EOMI (follows commands) NECK: JVD elevated, no thyromegaly Lymph: no lymphadenopathy HEART: regular with no S3, II/ systolic murmur at apex, PMI L LUNGS: Coarse sounds ABD: soft, NT, ND, +BS : Intact Neuro: non focal SKIN: chronic changes EXT: bandages edema Results/Medications Result Diagram: 02/08/19 0551 02/08/19 0551 Results 24 hrs Laboratory Tests Test 02/09/19 11:58 02/09/19 17:20 02/09/19 21:27 02/10/19 01:52 Bedside Glucose 154 119 157 102 Test 02/10/19 07:46 Bedside Glucose 116 Home Meds Reported Medications Amiodarone Hcl* (Amiodarone Hcl*) 200 Mg Tablet, 200 MG PO DAILY, #30 TAB 01/09/19 Digoxin* (Digitek*) 125 Mcg Tablet, 0.125 MG PO DAILY, TAB 01/09/19 Rivaroxaban* (Xarelto*) 20 Mg Tablet, 20 MG PO WITH DINNER, TAB 01/09/19 Clopidogrel Bisulfate* (Clopidogrel Bisulfate*) 75 Mg Tablet, 75 MG PO DAILY, #30 TAB 01/09/19 Empagliflozin (Jardiance) 25 Mg Tablet, 25 MG PO DAILY, TAB 01/09/19 Insulin Glargine,Hum.rec.anlog (Basaglar Kwikpen U-100) 100 Unit/1 Ml Insuln.pen, 18 UNIT SC QHS, EA 01/09/19 Sulfamethoxazole/Trimethoprim* (Bactrim Ds* Tablet) 1 Each Tablet, 1 TAB PO BID, TAB FOR 10 DAYS,START TAKING 01/06/19 01/09/19 Tapentadol Hcl (Nucynta) 100 Mg Tablet, 100 MG PO BID, TAB 01/09/19 Gabapentin* (Gabapentin*) 600 Mg Tablet, 600 MG PO DAILY, #60 TAB 01/09/19 Metformin Hcl* (Metformin Hcl*) 1,000 Mg Tablet, 1000 MG PO WITH BREAKFAST DINNE, #60 TAB 01/09/19 Medications Current Medications Amiodarone HCl (Cordarone) 200 mg DAILY PO Last administered on 02/09/19 08:19; Admin Dose 200 MG; Start 01/10/19 at 09:00 Digoxin (Digoxin) 0.125 mg DAILY@1300 PO Last administered on 02/09/19 12:16; Admin Dose 0.125 MG; Start 01/10/19 at 13:00 Gabapentin (Neurontin) 600 mg DAILY PO Last administered on 02/10/19 09:20; Admin Dose 600 MG; Start 01/10/19 at 09:00 Empaglifozin (Jardiance) 25 mg DAILY PO Last administered on 02/10/19 09:20; Admin Dose 25 MG; Start 01/10/19 at 09:00 Linagliptin (Tradjenta) 5 mg DAILY PO Last administered on 02/10/19 09:20; Admin Dose 5 MG; Start 01/10/19 at 09:00 Diagnostic Test (Pha) (Accu-Chek) 1 ea AC MEALS AND BEDTIME XX Last administered on 02/10/19 07:48; Admin Dose 1 EA; Start 01/09/19 at 21:00 Acetaminophen (Tylenol Tab) 650 mg Q4H PRN PO MILD PAIN(1-3)OR ELEVATED TEMP; Start 01/09/19 at 20:30 Ondansetron HCl (Zofran Inj) 4 mg Q6H PRN IV NAUSEA AND/OR VOMITING Last administered on 5/8/19at 19:59; Admin Dose 4 MG; Start 01/09/19 at 20:30 Diagnostic Test (Pha) (Accu-Chek) 1 ea 02 XX Last administered on 02/10/19at 01:51; Admin Dose 1 EA; Start 01/10/19 at 02:00 Miscellaneous Information 1 ea NOTE XX ; Start 01/09/19 at 21:30 Glucose (Glutose) 15 gm Q15M PRN PO DECREASED GLUCOSE; Start 01/09/19 at 21:30 Glucose (Glutose) 22.5 gm Q15M PRN PO DECREASED GLUCOSE; Start 01/09/19 at 21:30 Dextrose (D50w Syringe) 25 ml Q15M PRN IV DECREASED GLUCOSE; Start 01/09/19 at 21:30 Dextrose (D50w Syringe) 50 ml Q15M PRN IV DECREASED GLUCOSE; Start 01/09/19 at 21:30 Glucagon (Glucagen) 1 mg Q15M PRN IM DECREASED GLUCOSE; Start 01/09/19 at 21:30 Glucose (Glutose) 15 gm Q15M PRN BUCCAL DECREASED GLUCOSE; Start 01/09/19 at 21:30 Insulin Glargine (Lantus) 18 units QHS SC Last administered on 02/09/19 21:32; Admin Dose 18 UNITS; Start 01/09/19 at 22:30 Carvedilol (Coreg) 3.125 mg BID PO Last administered on 02/08/19 08:18; Admin Dose 3.125 MG; Start 01/10/19 at 21:00 Vancomycin HCl (Vanco Iv Per Pharmacy) VANCOMYCIN PER PHARMACY PER PROTOCOL XX ; Start 01/11/19 at 02:30 Lisinopril (Zestril) 2.5 mg DAILY PO Last administered on 02/09/19 08:19; Admin Dose 2.5 MG; Start 01/13/19 at 09:00 Senna (Senokot) 1 tab DAILY PRN PO CONSTIPATION Last administered on 02/07/19 14:26; Admin Dose 1 TAB; Start 01/12/19 at 18:30 Neomycin/ Polymyxin/ Bacitracin (Neosporin Topical Oint) 1 applic DAILY TOP Last administered on 02/09/19 08:23; Admin Dose 1 APPLIC; Start 01/12/19 at 18:30 Cyanocobalamin (Vitamin B12 Inj) 1,000 mcg DAILY IM Last administered on 02/10/19 09:21; Admin Dose 1,000 MCG; Start 01/16/19 at 09:00 Pantoprazole (Protonix Tab) 40 mg DAILY@06 PO Last administered on 02/10/19 06:03; Admin Dose 40 MG; Start 01/17/19 at 06:00 Metronidazole 100 ml @ 100 mls/hr Q8 IVPB Last administered on 02/10/19 06:03; Admin Dose 100 MLS/HR; Start 01/16/19 at 22:00 Cefepime HCl 50 ml @ 100 mls/hr Q12 IVPB Last administered on 02/10/19 09:42; Admin Dose 100 MLS/HR; Start 01/17/19 at 21:00 Oxycodone HCl (Oxycontin) 10 mg BID PO Last administered on 02/10/19 09:42; Admin Dose 10 MG; Start 01/18/19 at 15:00 Furosemide (Lasix) 20 mg BID DIURETICS IV Last administered on 02/09/19 17:25; Admin Dose 20 MG; Start 01/21/19 at 18:30 Vancomycin HCl 1.25 gm/Sodium Chloride 250 ml @ 83.333 mls/ hr Q12H IVPB Last administered on 02/10/19 01:39; Admin Dose 83.333 MLS/HR; Start 01/25/19 at 01:00 Insulin Aspart (Novolog Insulin Pen) NOVOLOG *MODERATE* ALGORITHM WITH MEALS BEDTIME SC Last administered on 02/09/19 12:07; Admin Dose 2 UNIT; Start 01/26/19 at 21:00 IV Flush (NS 10 ml) 10 ml PRN PRN IV IV PROTOCOL; Start 01/29/19 at 17:00 Hydromorphone HCl (Dilaudid) 1 mg Q4H PRN IV SEVERE PAIN LEVEL 7-10 Last administered on 02/10/19 06:04; Admin Dose 1 MG; Start 02/02/19 at 15:30 Docusate Sodium (Colace) 100 mg BID PO Last administered on 02/10/19 09:20; Admin Dose 100 MG; Start 02/07/19 at 21:00 Magnesium Hydroxide (Milk Of Mag) 30 ml BID PRN PO CONSTIPATION; Start 6/2/19 at 14:00 Miscellaneous Information (*Order Clarification Bulletin) MEDICATION REQUIRES CLARIFICATI... Q8H XX ; Start 02/09/19 at 09:30 Sodium Hypochlorite (Dakins Diluted ()) 1 applic DAILY TP Last administered on 02/10/19at 09:44; Admin Dose 1 APPLIC; Start 02/09/19 at 13:00 Miscellaneous Information (*Rx Drug Level Order Reminder*) VANCO TROUGH 02/10 @ 1,200 1200 ONCE XX ; Start 02/10/19 at 12:00; Stop 02/10/19 at 12:01 Miscellaneous Information 1 ea Q12 XX ; Start 02/09/19 at 22:00 Assessment/Plan Hospital Course (Demo Recall) 1.Pre-op for peripheral bypass surgery. Lexiscan with no ischemia/+scar EF 28%. Echo EF 25%. OK to proceed to surgery at moderate CV risk - stable now - on hold for now - con't wound care. Treated. Pt planned for EGD - OK to proceed if needed from cardiac standpoint. Awaiting surgical dispo now for foot care. Dispo planned Saturday. 2.Cardiomyopathy with low EF-severely depressed by echo this admit - mild CHF, con't gentle diuresis - stable fluid satus. BiV upgrade planned per Dr. Polo. Dubon. Defer to DR. Bowman. Jagdish overall. 3.HTN - well Rx - on therapy now - in good range now. TREATED. 4.HL 5.Non-healing LE ulcer - in bandage, will follow - con't wound care. Pain better Rx. Wound care in place. 6.PAD-severe s/p prior BEVELER 7.DM - on meds, keep euglycemic 8. A. Fib - in sinus now, paroxysmal - on amio - off anti-coag with low H/H - Hg 9.0 now. MIGUEL WADE MD Feb 10, 2019 09:49
[2019-02-10] MEDS: NEOMYC/POLYMYX/BACIT 30 GM OINT TOP SCH (10:01)
[2019-02-10] MEDS: DIGOXIN 0.125 MG TAB PO SCH (13:44)
--- NOTE | 2019-02-10 15:08 | CONS ---
Assessment/Plan Assessment/Plan Hospital Course (Demo Recall) - polymicrobial infection of non-healing ulcer of R heel. CT on 01/10/2019 did not show evidence of OM. ESR 26 on 01/09/2019 and 37 on 01/12/2019; superficial wound culture grew pseudomonas, E. Coli, enterococcus (isolated from broth only), scant proteus, and scant CoNS. ESR 23 and repeat culture on 02/06/2019 grew pseudomonas - s/p Debridement of the right calcaneal ulceration 01/13/2019; intraop culture grew E. Coli, Proteus, and Enterococcus - chronic wound of R heel, in the past the wound culture grew E. coli. repeat culture on 02/06/2019 grew pseudomonas - h/o OM of R foot, h/o 6 weeks of IV vancomycin and ceftriaxone in 2018. 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 consider debridement of devitalized tissue of R heel - we recommend 6 weeks of vancomycin iv (01/11/2019-), cefepime (restart 01/17/2019-), and metronidazole IV (01/16/2019-) through 02/22/19 - continue local wound care with topical antiseptic (Dakin's solution) - If Pt goes home, IV metronidazole may be replaced with PO metronidazole - please check weekly CBC BMP and ESR while Pt's on IV antibiotics Consultation Date/Type/Reason Admit Date/Time January 09, 2019 at 18:17 Initial Consult Date 01/10/19 Requesting Provider: KRISTIN PRYOR MD Date/Time of Note DATE: 02/10/19 TIME: 15:07 Exam/Review of Systems Exam Vitals Vital Signs Date Temp Pulse Resp B/P (MAP) Pulse Ox O2 O2 Flow FiO2 Time Delivery Rate 02/10/19 97.6 72 16 87/55 (66) 99 15:00 02/08/19 Room Air 19:53 Intake and Output 02/09/19 02/09/19 02/10/19 1515:00 23:00 07:00 IntakeIntake Total 50 ml 1200 ml 500 ml OutputOutput Total 2200 ml BalanceBalance 50 ml -1000 ml 500 ml Results Result Diagram: 02/08/19 0551 02/08/19 0551 Results 24hrs Laboratory Tests Test 02/09/19 17:20 02/09/19 21:27 02/10/19 01:52 02/10/19 07:46 Bedside Glucose 119 157 102 116 Test 02/10/19 11:34 02/10/19 12:06 Bedside Glucose 132 Vancomycin Level Trough 13.3 Medications Medication Current Medications Amiodarone HCl (Cordarone) 200 mg DAILY PO Last administered on 02/09/19 08:19; Admin Dose 200 MG; Start 01/10/19 at 09:00 Digoxin (Digoxin) 0.125 mg DAILY@1300 PO Last administered on 02/10/19 13:44; Admin Dose 0.125 MG; Start 01/10/19 at 13:00 Gabapentin (Neurontin) 600 mg DAILY PO Last administered on 02/10/19 09:20; Admin Dose 600 MG; Start 01/10/19 at 09:00 Empaglifozin (Jardiance) 25 mg DAILY PO Last administered on 02/10/19 09:20; Admin Dose 25 MG; Start 01/10/19 at 09:00 Linagliptin (Tradjenta) 5 mg DAILY PO Last administered on 02/10/19 09:20; Admin Dose 5 MG; Start 01/10/19 at 09:00 Diagnostic Test (Pha) (Accu-Chek) 1 ea AC MEALS AND BEDTIME XX Last administered on 02/10/19 07:48; Admin Dose 1 EA; Start 01/09/19 at 21:00 Acetaminophen (Tylenol Tab) 650 mg Q4H PRN PO MILD PAIN(1-3)OR ELEVATED TEMP; Start 01/09/19 at 20:30 Ondansetron HCl (Zofran Inj) 4 mg Q6H PRN IV NAUSEA AND/OR VOMITING Last administered on 01/14/19 19:59; Admin Dose 4 MG; Start 01/09/19 at 20:30 Diagnostic Test (Pha) (Accu-Chek) 1 ea 02 XX Last administered on 02/10/19at 01:51; Admin Dose 1 EA; Start 01/10/19 at 02:00 Miscellaneous Information 1 ea NOTE XX ; Start 01/09/19 at 21:30 Glucose (Glutose) 15 gm Q15M PRN PO DECREASED GLUCOSE; Start 01/09/19 at 21:30 Glucose (Glutose) 22.5 gm Q15M PRN PO DECREASED GLUCOSE; Start 01/09/19 at 21:30 Dextrose (D50w Syringe) 25 ml Q15M PRN IV DECREASED GLUCOSE; Start 01/09/19 at 21:30 Dextrose (D50w Syringe) 50 ml Q15M PRN IV DECREASED GLUCOSE; Start 01/09/19 at 21:30 Glucagon (Glucagen) 1 mg Q15M PRN IM DECREASED GLUCOSE; Start 01/09/19 at 21:30 Glucose (Glutose) 15 gm Q15M PRN BUCCAL DECREASED GLUCOSE; Start 01/09/19 at 21:30 Insulin Glargine (Lantus) 18 units QHS SC Last administered on 02/09/19at 21:32; Admin Dose 18 UNITS; Start 01/09/19 at 22:30 Carvedilol (Coreg) 3.125 mg BID PO Last administered on 02/08/19at 08:18; Admin Dose 3.125 MG; Start 01/10/19 at 21:00 Vancomycin HCl (Vanco Iv Per Pharmacy) VANCOMYCIN PER PHARMACY PER PROTOCOL XX ; Start 01/11/19 at 02:30 Lisinopril (Zestril) 2.5 mg DAILY PO Last administered on 02/09/19 08:19; Admin Dose 2.5 MG; Start 01/13/19 at 09:00 Senna (Senokot) 1 tab DAILY PRN PO CONSTIPATION Last administered on 02/07/19 14:26; Admin Dose 1 TAB; Start 01/12/19 at 18:30 Neomycin/ Polymyxin/ Bacitracin (Neosporin Topical Oint) 1 applic DAILY TOP Last administered on 02/10/19 10:01; Admin Dose 1 APPLIC; Start 01/12/19 at 18:30 Cyanocobalamin (Vitamin B12 Inj) 1,000 mcg DAILY IM Last administered on 02/10/19 09:21; Admin Dose 1,000 MCG; Start 01/16/19 at 09:00 Pantoprazole (Protonix Tab) 40 mg DAILY@06 PO Last administered on 02/10/19 06:03; Admin Dose 40 MG; Start 01/17/19 at 06:00 Metronidazole 100 ml @ 100 mls/hr Q8 IVPB Last administered on 02/10/19 06:03; Admin Dose 100 MLS/HR; Start 01/16/19 at 22:00 Cefepime HCl 50 ml @ 100 mls/hr Q12 IVPB Last administered on 02/10/19 09:42; Admin Dose 100 MLS/HR; Start 01/17/19 at 21:00 Oxycodone HCl (Oxycontin) 10 mg BID PO Last administered on 02/10/19 09:42; Admin Dose 10 MG; Start 01/18/19 at 15:00 Furosemide (Lasix) 20 mg BID DIURETICS IV Last administered on 02/09/19 17:25; Admin Dose 20 MG; Start 01/21/19 at 18:30 Vancomycin HCl 1.25 gm/Sodium Chloride 250 ml @ 83.333 mls/ hr Q12H IVPB Last administered on 02/10/19 13:44; Admin Dose 83.333 MLS/HR; Start 01/25/19 at 01:00 Insulin Aspart (Novolog Insulin Pen) NOVOLOG *MODERATE* ALGORITHM WITH MEALS BEDTIME SC Last administered on 02/09/19 12:07; Admin Dose 2 UNIT; Start 01/26/19 at 21:00 IV Flush (NS 10 ml) 10 ml PRN PRN IV IV PROTOCOL; Start 01/29/19 at 17:00 Hydromorphone HCl (Dilaudid) 1 mg Q4H PRN IV SEVERE PAIN LEVEL 7-10 Last administered on 02/10/19 13:45; Admin Dose 1 MG; Start 02/02/19 at 15:30 Docusate Sodium (Colace) 100 mg BID PO Last administered on 02/10/19 09:20; Admin Dose 100 MG; Start 02/07/19 at 21:00 Magnesium Hydroxide (Milk Of Mag) 30 ml BID PRN PO CONSTIPATION; Start 02/08/19 at 14:00 Miscellaneous Information (*Order Clarification Bulletin) MEDICATION REQUIRES CLARIFICATI... Q8H XX ; Start 02/09/19 at 09:30 Sodium Hypochlorite (Dakins Diluted ()) 1 applic DAILY TP Last administered on 02/10/19at 09:44; Admin Dose 1 APPLIC; Start 02/09/19 at 13:00 Miscellaneous Information 1 ea Q12 XX ; Start 02/09/19 at 22:00 DENITA WOMACK MD Feb 10, 2019 15:08
--- NOTE | 2019-02-10 16:07 | CONS ---
Assessment/Plan Assessment/Plan Hospital Course (Demo Recall) #Gastric mass -pt to have EUS and FNA ans an out patient. 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 Coli, Proteus, and Enterococcus -continue IV abx per ID - Plan for a right pop bypass on 02/13/19 # Anemia-normocytic -Hg currently stable > 9 -likely 2/2 GI bleed -continue to hold all blood thinners -CT A/P does not reveal evidence of bleed -f/u endoscopy. pt was found with a T3.5 cm mass/filling defect arising along the lesser curvature of the stomach - consistent with GIST tumor Consultation Date/Type/Reason Admit Date/Time January 09, 2019 at 18:17 Initial Consult Date 01/16/19 Type of Consult oncology Reason for Consultation gastric mass Requesting Provider: KRISTIN PRYOR MD Date/Time of Note DATE: 02/10/19 TIME: 16:04 24 HR Interval Summary Free Text/Dictation no acute overnight events. continues on IV antibiotics Exam/Review of Systems Exam Vitals Vital Signs Date Temp Pulse Resp B/P (MAP) Pulse Ox O2 O2 Flow FiO2 Time Delivery Rate 02/10/19 97.6 72 16 87/55 (66) 99 15:00 02/08/19 Room Air 19:53 Intake and Output 02/09/19 02/09/19 02/10/19 1515:00 23:00 07:00 IntakeIntake Total 50 ml 1200 ml 500 ml OutputOutput Total 2200 ml BalanceBalance 50 ml -1000 ml 500 ml Constitutional: alert, oriented Psych: no complaints Head: normocephalic Eyes: EOMI ENMT: nl external ears & nose Neck: supple Respiratory: clear to auscultation Cardiovascular: regular rate and rhythm Gastrointestinal: soft Musculoskeletal: nl extremities to inspection, nl gait and stance Results Result Diagram: 02/08/19 0551 02/08/19 0551 Results 24hrs Laboratory Tests Test 02/09/19 17:20 02/09/19 21:27 02/10/19 01:52 02/10/19 07:46 Bedside Glucose 119 157 102 116 Test 02/10/19 11:34 02/10/19 12:06 Bedside Glucose 132 Vancomycin Level Trough 13.3 Medications Medication Current Medications Amiodarone HCl (Cordarone) 200 mg DAILY PO Last administered on 02/09/19 08:19; Admin Dose 200 MG; Start 01/10/19 at 09:00 Digoxin (Digoxin) 0.125 mg DAILY@1300 PO Last administered on 02/10/19 13:44; Admin Dose 0.125 MG; Start 01/10/19 at 13:00 Gabapentin (Neurontin) 600 mg DAILY PO Last administered on 02/10/19 09:20; Admin Dose 600 MG; Start 01/10/19 at 09:00 Empaglifozin (Jardiance) 25 mg DAILY PO Last administered on 02/10/19 09:20; Admin Dose 25 MG; Start 01/10/19 at 09:00 Linagliptin (Tradjenta) 5 mg DAILY PO Last administered on 02/10/19 09:20; Admin Dose 5 MG; Start 01/10/19 at 09:00 Diagnostic Test (Pha) (Accu-Chek) 1 ea AC MEALS AND BEDTIME XX Last administered on 02/10/19 07:48; Admin Dose 1 EA; Start 01/09/19 at 21:00 Acetaminophen (Tylenol Tab) 650 mg Q4H PRN PO MILD PAIN(1-3)OR ELEVATED TEMP; Start 01/09/19 at 20:30 Ondansetron HCl (Zofran Inj) 4 mg Q6H PRN IV NAUSEA AND/OR VOMITING Last administered on 01/14/19 19:59; Admin Dose 4 MG; Start 01/09/19 at 20:30 Diagnostic Test (Pha) (Accu-Chek) 1 ea 02 XX Last administered on 02/10/19 01:51; Admin Dose 1 EA; Start 01/10/19 at 02:00 Miscellaneous Information 1 ea NOTE XX ; Start 01/09/19 at 21:30 Glucose (Glutose) 15 gm Q15M PRN PO DECREASED GLUCOSE; Start 01/09/19 at 21:30 Glucose (Glutose) 22.5 gm Q15M PRN PO DECREASED GLUCOSE; Start 01/09/19 at 21:30 Dextrose (D50w Syringe) 25 ml Q15M PRN IV DECREASED GLUCOSE; Start 01/09/19 at 21:30 Dextrose (D50w Syringe) 50 ml Q15M PRN IV DECREASED GLUCOSE; Start 01/09/19 at 21:30 Glucagon (Glucagen) 1 mg Q15M PRN IM DECREASED GLUCOSE; Start 01/09/19 at 21:30 Glucose (Glutose) 15 gm Q15M PRN BUCCAL DECREASED GLUCOSE; Start 01/09/19 at 21:30 Insulin Glargine (Lantus) 18 units QHS SC Last administered on 02/09/19 21:32; Admin Dose 18 UNITS; Start 01/09/19 at 22:30 Carvedilol (Coreg) 3.125 mg BID PO Last administered on 02/08/19 08:18; Admin Dose 3.125 MG; Start 01/10/19 at 21:00 Vancomycin HCl (Vanco Iv Per Pharmacy) VANCOMYCIN PER PHARMACY PER PROTOCOL XX ; Start 01/11/19 at 02:30 Lisinopril (Zestril) 2.5 mg DAILY PO Last administered on 02/09/19 08:19; Admin Dose 2.5 MG; Start 01/13/19 at 09:00 Senna (Senokot) 1 tab DAILY PRN PO CONSTIPATION Last administered on 02/07/19 14:26; Admin Dose 1 TAB; Start 01/12/19 at 18:30 Neomycin/ Polymyxin/ Bacitracin (Neosporin Topical Oint) 1 applic DAILY TOP L ast administered on 02/10/19at 10:01; Admin Dose 1 APPLIC; Start 01/12/19 at 18:30 Cyanocobalamin (Vitamin B12 Inj) 1,000 mcg DAILY IM Last administered on 02/10/19 09:21; Admin Dose 1,000 MCG; Start 01/16/19 at 09:00 Pantoprazole (Protonix Tab) 40 mg DAILY@06 PO Last administered on 02/10/19 06:03; Admin Dose 40 MG; Start 01/17/19 at 06:00 Metronidazole 100 ml @ 100 mls/hr Q8 IVPB Last administered on 02/10/19 06:03; Admin Dose 100 MLS/HR; Start 01/16/19 at 22:00 Cefepime HCl 50 ml @ 100 mls/hr Q12 IVPB Last administered on 02/10/19 09:42; Admin Dose 100 MLS/HR; Start 01/17/19 at 21:00 Oxycodone HCl (Oxycontin) 10 mg BID PO Last administered on 02/10/19 09:42; Admin Dose 10 MG; Start 01/18/19 at 15:00 Furosemide (Lasix) 20 mg BID DIURETICS IV Last administered on 02/09/19 17:25; Admin Dose 20 MG; Start 01/21/19 at 18:30 Vancomycin HCl 1.25 gm/Sodium Chloride 250 ml @ 83.333 mls/ hr Q12H IVPB Last administered on 02/10/19 13:44; Admin Dose 83.333 MLS/HR; Start 01/25/19 at 01:00 Insulin Aspart (Novolog Insulin Pen) NOVOLOG *MODERATE* ALGORITHM WITH MEALS BEDTIME SC Last administered on 02/09/19 12:07; Admin Dose 2 UNIT; Start 01/26/19 at 21:00 IV Flush (NS 10 ml) 10 ml PRN PRN IV IV PROTOCOL; Start 01/29/19 at 17:00 Hydromorphone HCl (Dilaudid) 1 mg Q4H PRN IV SEVERE PAIN LEVEL 7-10 Last administered on 02/10/19 13:45; Admin Dose 1 MG; Start 02/02/19 at 15:30 Docusate Sodium (Colace) 100 mg BID PO Last administered on 02/10/19 09:20; Admin Dose 100 MG; Start 02/07/19 at 21:00 Magnesium Hydroxide (Milk Of Mag) 30 ml BID PRN PO CONSTIPATION; Start 02/08/19 at 14:00 Miscellaneous Information (*Order Clarification Bulletin) MEDICATION REQUIRES CLARIFICATI... Q8H XX ; Start 02/09/19 at 09:30 Sodium Hypochlorite (Dakins Diluted ()) 1 applic DAILY TP Last administered on 02/10/19 09:44; Admin Dose 1 APPLIC; Start 02/09/19 at 13:00 Miscellaneous Information 1 ea Q12 XX ; Start 02/09/19 at 22:00 TJ QUINTERO M.D. Feb 10, 2019 16:07
--- NOTE | 2019-02-10 19:09 | PN ---
Date/Time of Note Date/Time of Note DATE: 02/10/19 TIME: 19:09 Assessment/Plan VTE Prophylaxis Risk score (from Ns)>0 risk: 4 SCD applied (from Ns): Yes SCD contraindicated: other Pharmacological prophylaxis: NA/contraindicated Pharm contraindication: anticoag not tolerated Lines/Catheters IV [facility] PICC Line Central line still needed: Yes Urinary Cath still in place: No Assessment/Plan Hospital Course no acute events overnight, no complains, Plan for vascular surgery on Saturday by Dr. Sheppard. 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 EUS and FNA as an outpatient to confirm GIST tumor diagnosis. Continue PPI. -New onset of anemia and hypotension requiring blood transfusion on 01/15/2019, stool for OB is negative. -Right heel necrotic wound. Dr. Mata is following in podiatry consultation. Status post debridement. Continue antibiotics per ID. Dr. Urbano is following in infection disease consultation. Will require total of 6 weeks of Vancomycin IV, Cefepime IV, and Flagyl IV through 02/22/19. -Chronic peripheral vascular disease, history of angioplasty x2. Dr. Sheppard is following in vascular surgery consultation. Plan for a right pop DP bypass as an outpatient. -Coronary artery disease, status post coronary artery bypass graft. -Cardiomyopathy with ejection fraction of 25%. Continue Coreg. Dr. Foster is following in cardiology consultation. -Status post AICD. -Hx of Hypertension. -Diabetes hemoglobin A1c 7.6. Continue Lantus and NovoLog. -Right knee contusion and abrasion status post fall. Status post evaluation by Dr. Zelaya and orthopedic surgery. No signs of fracture or dystrophic dislocation. -Chronic low back pain with significant spondylolisthesis grade II at the level of L5 to S1. Further recommendations based on clinical course. Plan of care discussed with Dr. Mann. Result Diagram: 02/08/19 0551 02/08/19 0551 Results 24hrs Laboratory Tests Test 02/09/19 21:27 02/10/19 01:52 02/10/19 07:46 02/10/19 11:34 Bedside Glucose 157 102 116 132 Test 02/10/19 12:06 02/10/19 17:43 Vancomycin Level Trough 13.3 Bedside Glucose 146 Exam/Review of Systems Exam Vitals Vital Signs Date Temp Pulse Resp B/P (MAP) Pulse Ox O2 O2 Flow FiO2 Time Delivery Rate 02/10/19 73 16:37 02/10/19 97.6 16 87/55 (66) 99 15:00 02/08/19 Room Air 19:53 Intake and Output 02/09/19 02/09/19 02/10/19 1515:00 23:00 07:00 IntakeIntake Total 50 ml 1200 ml 500 ml OutputOutput Total 2200 ml BalanceBalance 50 ml -1000 ml 500 ml Exam Constitutional: alert, oriented Respiratory: clear to auscultation Cardiovascular: regular rhythm and rate, AICD Gastrointestinal: soft, non-tender Extremities: normal pulses, other (Right heel wound) Right chest triple lumen catheter Results Results 24hrs Laboratory Tests Test 02/09/19 21:27 02/10/19 01:52 02/10/19 07:46 02/10/19 11:34 Bedside Glucose 157 102 116 132 Test 02/10/19 12:06 02/10/19 17:43 Vancomycin Level Trough 13.3 Bedside Glucose 146 Medications Medication Current Medications Amiodarone HCl (Cordarone) 200 mg DAILY PO Last administered on 02/09/19 08:19; Admin Dose 200 MG; Start 01/10/19 at 09:00 Digoxin (Digoxin) 0.125 mg DAILY@1300 PO Last administered on 02/10/19 13:44; Admin Dose 0.125 MG; Start 01/10/19 at 13:00 Gabapentin (Neurontin) 600 mg DAILY PO Last administered on 02/10/19 09:20; Admin Dose 600 MG; Start 01/10/19 at 09:00 Empaglifozin (Jardiance) 25 mg DAILY PO Last administered on 02/10/19 09:20; Admin Dose 25 MG; Start 01/10/19 at 09:00 Linagliptin (Tradjenta) 5 mg DAILY PO Last administered on 02/10/19 09:20; Admin Dose 5 MG; Start 01/10/19 at 09:00 Diagnostic Test (Pha) (Accu-Chek) 1 ea AC MEALS AND BEDTIME XX Last administered on 02/10/19at 17:44; Admin Dose 1 EA; Start 01/09/19 at 21:00 Acetaminophen (Tylenol Tab) 650 mg Q4H PRN PO MILD PAIN(1-3)OR ELEVATED TEMP; Start 01/09/19 at 20:30 Ondansetron HCl (Zofran Inj) 4 mg Q6H PRN IV NAUSEA AND/OR VOMITING Last administered on 01/14/19at 19:59; Admin Dose 4 MG; Start 01/09/19 at 20:30 Diagnostic Test (Pha) (Accu-Chek) 1 ea 02 XX Last administered on 02/10/19at 01:51; Admin Dose 1 EA; Start 01/10/19 at 02:00 Miscellaneous Information 1 ea NOTE XX ; Start 01/09/19 at 21:30 Glucose (Glutose) 15 gm Q15M PRN PO DECREASED GLUCOSE; Start 01/09/19 at 21:30 Glucose (Glutose) 22.5 gm Q15M PRN PO DECREASED GLUCOSE; Start 01/09/19 at 21:30 Dextrose (D50w Syringe) 25 ml Q15M PRN IV DECREASED GLUCOSE; Start 01/09/19 at 21:30 Dextrose (D50w Syringe) 50 ml Q15M PRN IV DECREASED GLUCOSE; Start 01/09/19 at 21:30 Glucagon (Glucagen) 1 mg Q15M PRN IM DECREASED GLUCOSE; Start 01/09/19 at 21:30 Glucose (Glutose) 15 gm Q15M PRN BUCCAL DECREASED GLUCOSE; Start 01/09/19 at 21:30 Insulin Glargine (Lantus) 18 units QHS SC Last administered on 02/09/19at 21:32; Admin Dose 18 UNITS; Start 01/09/19 at 22:30 Carvedilol (Coreg) 3.125 mg BID PO Last administered on 02/08/19at 08:18; Admin Dose 3.125 MG; Start 01/10/19 at 21:00 Vancomycin HCl (Vanco Iv Per Pharmacy) VANCOMYCIN PER PHARMACY PER PROTOCOL XX ; Start 01/11/19 at 02:30 Lisinopril (Zestril) 2.5 mg DAILY PO Last administered on 02/09/19at 08:19; Admin Dose 2.5 MG; Start 01/13/19 at 09:00 Senna (Senokot) 1 tab DAILY PRN PO CONSTIPATION Last administered on 02/07/19at 14:26; Admin Dose 1 TAB; Start 01/12/19 at 18:30 Neomycin/ Polymyxin/ Bacitracin (Neosporin Topical Oint) 1 applic DAILY TOP Last administered on 02/10/19 10:01; Admin Dose 1 APPLIC; Start 01/12/19 at 18:30 Cyanocobalamin (Vitamin B12 Inj) 1,000 mcg DAILY IM Last administered on 02/10/19 09:21; Admin Dose 1,000 MCG; Start 01/16/19 at 09:00 Pantoprazole (Protonix Tab) 40 mg DAILY@06 PO Last administered on 02/10/19 06:03; Admin Dose 40 MG; Start 01/17/19 at 06:00 Metronidazole 100 ml @ 100 mls/hr Q8 IVPB Last administered on 02/10/19 16:31; Admin Dose 100 MLS/HR; Start 01/16/19 at 22:00 Cefepime HCl 50 ml @ 100 mls/hr Q12 IVPB Last administered on 02/10/19 09:42; Admin Dose 100 MLS/HR; Start 01/17/19 at 21:00 Oxycodone HCl (Oxycontin) 10 mg BID PO Last administered on 02/10/19 09:42; Admin Dose 10 MG; Start 01/18/19 at 15:00 Furosemide (Lasix) 20 mg BID DIURETICS IV Last administered on 02/10/19 18:07; Admin Dose 20 MG; Start 01/21/19 at 18:30 Vancomycin HCl 1.25 gm/Sodium Chloride 250 ml @ 83.333 mls/ hr Q12H IVPB Last administered on 02/10/19 13:44; Admin Dose 83.333 MLS/HR; Start 01/25/19 at 01:00 Insulin Aspart (Novolog Insulin Pen) NOVOLOG *MODERATE* ALGORITHM WITH MEALS BEDTIME SC Last administered on 02/10/19 18:02; Admin Dose 2 UNIT; Start 01/26/19 at 21:00 IV Flush (NS 10 ml) 10 ml PRN PRN IV IV PROTOCOL; Start 01/29/19 at 17:00 Hydromorphone HCl (Dilaudid) 1 mg Q4H PRN IV SEVERE PAIN LEVEL 7-10 Last administered on 02/10/19 17:59; Admin Dose 1 MG; Start 02/02/19 at 15:30 Docusate Sodium (Colace) 100 mg BID PO Last administered on 02/10/19at 09:20; Admin Dose 100 MG; Start 02/07/19 at 21:00 Magnesium Hydroxide (Milk Of Mag) 30 ml BID PRN PO CONSTIPATION; Start 02/08/19 at 14:00 Miscellaneous Information (*Order Clarification Bulletin) MEDICATION REQUIRES CLARIFICATI... Q8H XX ; Start 02/09/19 at 09:30 Sodium Hypochlorite (Dakins Diluted ()) 1 applic DAILY TP Last administered on 02/10/19at 09:44; Admin Dose 1 APPLIC; Start 02/09/19 at 13:00 Miscellaneous Information 1 ea Q12 XX ; Start 02/09/19 at 22:00 RAMESH SOLORZANO Feb 10, 2019 19:09
[2019-02-10] MEDS: INSULIN GLARGINE [LANTus] (100 UNITS/ML) SYG SC SCH (21:25)
[2019-02-10] MEDS ORDERED: ACETAMINOPHEN 325 MG TAB PO PRN (22:00)
[2019-02-10] MEDS ORDERED: ONDANSETRON 4 MG INJ IV PRN (22:00)
[2019-02-11] VITALS (10 sets, daily range): BP systolic 75–117; BP diastolic 59–96; PULSE 68–82; RESP 16–20
[2019-02-11] MEDS: HYDROmorphONE 1 MG/ML SYG IV PRN ×5 (01:54→20:51)
[2019-02-11] MEDS: VANCOMYCIN HCL 1.25 GM in SOD CHLORIDE 0.9% 250 ML IVPB SCH ×2 (01:54→13:08)
[2019-02-11] MEDS: ACCU-CHEK XX SCH (02:01)
[2019-02-11] MEDS: FUROSEMIDE 20 MG INJ IV SCH ×2 (06:00→17:42)
[2019-02-11] MEDS: PANTOPRAZOLE (EC) 40 MG TAB PO SCH (06:07)
[2019-02-11] MEDS: metroNIDAZOLE 500 MG/NS (PMX) 100 ML IVPB SCH ×3 (06:07→22:50)
[2019-02-11] MEDS: INSULIN ASPART [NOVOLOG] 3 ML PEN SC SCH ×4 (07:42→21:00)
[2019-02-11] MEDS: EMPAGLIFLOZIN 10 MG TABLET PO SCH (07:43)
[2019-02-11] MEDS: LINAGLIPTIN 5 MG TABLET PO SCH (07:43)
[2019-02-11] MEDS: CYANOCOBALAMIN 1000 MCG INJ IM SCH (08:57)
[2019-02-11] MEDS: GABAPENTIN 300 MG CAP PO SCH (08:57)
[2019-02-11] MEDS: DOCUSATE SODIUM 100 MG CAP PO SCH ×2 (08:59→20:54)
[2019-02-11] MEDS: CEFEPIME 2GM/50 ML (PMX) 50 ML IVPB SCH ×2 (08:59→21:41)
[2019-02-11] MEDS: (Nursing Note) XX SCH ×2 (09:00→21:00)
[2019-02-11] MEDS: LISINOPRIL 5 MG TAB PO SCH (09:00)
[2019-02-11] MEDS: AMIODARONE 200 MG TAB PO SCH (09:00)
[2019-02-11] MEDS: NEOMYC/POLYMYX/BACIT 30 GM OINT TOP SCH (09:02)
[2019-02-11] MEDS: DAKINS 0.0125%(1/40) 473 ML SOLUTION TP SCH (09:02)
[2019-02-11] MEDS: oxyCODONE (CR) 10 MG TAB [oxyCONTIN] PO SCH ×2 (09:09→20:54)
--- NOTE | 2019-02-11 11:43 | CONS ---
Assessment/Plan Assessment/Plan Hospital Course (Demo Recall) - Polymicrobial infection of non-healing ulcer of R heel. CT on 01/10/2019 did not show evidence of OM. ESR 26 on 01/09/2019 and 37 on 01/12/2019; superficial wound culture grew pseudomonas, E. Coli, enterococcus (isolated from broth only), scant proteus, and scant CoNS. ESR 23 and repeat culture on 02/06/2019 grew pseudomonas - S/p Debridement of the right calcaneal ulceration 01/13/2019; intraop culture grew E. Coli, Proteus, and Enterococcus - Chronic wound of R heel, in the past the wound culture grew E. coli. repeat culture on 02/06/2019 grew pseudomonas - H/o OM of R foot, h/o 6 weeks of IV vancomycin and ceftriaxone in 2018. 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 consider debridement of devitalized tissue of R heel - We recommend 6 weeks of vancomycin iv (01/11/2019-), cefepime (restart 01/17/2019-), and metronidazole IV (01/16/2019-) through 02/22/19 - Continue local wound care with topical antiseptic (Dakin's solution) - If Pt goes home, IV metronidazole may be replaced with PO metronidazole - Please check weekly CBC BMP and ESR while Pt's on IV antibiotics Plan was d/w patient and with Dr. Urbano via [employer] messaging. Consultation Date/Type/Reason Admit Date/Time January 09, 2019 at 18:17 Initial Consult Date 01/10/19 Type of Consult ID Requesting Provider: KRISTIN PRYOR MD Date/Time of Note DATE: 02/11/19 TIME: 11:41 24 HR Interval Summary Free Text/Dictation Remains afebrile, no acute issues reported by nursing. Per patient "i'm worried about the color of the drainage from my foot." Shows me a picture (greenish yellow [infection with pseudomonas]) Has bypass scheduled for 02/13/19 Is c/o sciatica pain. Denies fevers, chills, night sweats, cough, sob, cp, n/v/d, dysuria. Reports R foot pain is 'well controlled' by pain medication. Reports swelling in BLE improving with lasix. Exam/Review of Systems Exam Vitals Vital Signs Date Temp Pulse Resp B/P (MAP) Pulse Ox O2 O2 Flow FiO2 Time Delivery Rate 02/11/19 98.0 82 16 96/59 (71) 100 11:08 02/08/19 Room Air 19:53 Allergies Coded Allergies No Known Allergy (Unverified01/09/19) Intake and Output 02/10/19 02/10/19 02/11/19 1515:00 23:00 07:00 IntakeIntake Total 800 ml OutputOutput Total 1200 ml BalanceBalance -400 ml Constitutional: alert, oriented, well developed, other (sitting at side of bed having lunch) Psych: no complaints, nl mood/affect Head: normocephalic, atraumatic Eyes: nl conjunctiva, nl lids, nl sclera ENMT: nl external ears & nose, nl nasal mucosa & septum, mucosa pink and moist (no thrush) Neck: supple, non-tender Respiratory: clear to auscultation, normal air movement; No labored breathing, No wheezing Cardiovascular: regular rate and rhythm, nl pulses Gastrointestinal: soft, non-tender, bowel sounds (normoactive ); No tender Genitourinary - Male: other (3 urinals at bedside ) Musculoskeletal: nl extremities to inspection, swelling (R foot) Extremities: normal pulses, other (RUE PICC site is c/d/i ) 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 Reviewed picture. ) Results Result Diagram: 02/08/19 0551 02/08/19 0551 Results 24hrs Laboratory Tests Test 02/10/19 12:06 02/10/19 17:43 02/10/19 21:19 02/11/19 02:01 Vancomycin Level Trough 13.3 Bedside Glucose 146 132 140 Test 02/11/19 07:42 Bedside Glucose 114 Medications Medication Current Medications Amiodarone HCl (Cordarone) 200 mg DAILY PO Last administered on 02/09/19at 08:19; Admin Dose 200 MG; Start 01/10/19 at 09:00 Digoxin (Digoxin) 0.125 mg DAILY@1300 PO Last administered on 02/10/19at 13:44; Admin Dose 0.125 MG; Start 01/10/19 at 13:00 Gabapentin (Neurontin) 600 mg DAILY PO Last administered on 02/11/19 08:57; Admin Dose 600 MG; Start 01/10/19 at 09:00 Empaglifozin (Jardiance) 25 mg DAILY PO Last administered on 02/11/19 07:43; Admin Dose 25 MG; Start 01/10/19 at 09:00 Linagliptin (Tradjenta) 5 mg DAILY PO Last administered on 02/11/19at 07:43; Admin Dose 5 MG; Start 01/10/19 at 09:00 Diagnostic Test (Pha) (Accu-Chek) 1 ea 02 XX Last administered on 02/11/19at 02:01; Admin Dose 1 EA; Start 01/10/19 at 02:00 Miscellaneous Information 1 ea NOTE XX ; Start 01/09/19 at 21:30 Glucose (Glutose) 15 gm Q15M PRN PO DECREASED GLUCOSE; Start 01/09/19 at 21:30 Glucose (Glutose) 22.5 gm Q15M PRN PO DECREASED GLUCOSE; Start 01/09/19 at 21:30 Dextrose (D50w Syringe) 50 ml Q15M PRN IV DECREASED GLUCOSE; Start 01/09/19 at 2 1:30 Glucagon (Glucagen) 1 mg Q15M PRN IM DECREASED GLUCOSE; Start 01/09/19 at 21:30 Glucose (Glutose) 15 gm Q15M PRN BUCCAL DECREASED GLUCOSE; Start 01/09/19 at 21:30 Insulin Glargine (Lantus) 18 units QHS SC Last administered on 02/10/19 21:25; Admin Dose 18 UNITS; Start 01/09/19 at 22:30 Carvedilol (Coreg) 3.125 mg BID PO Last administered on 02/10/19at 21:15; Admin Dose 3.125 MG; Start 01/10/19 at 21:00 Vancomycin HCl (Vanco Iv Per Pharmacy) VANCOMYCIN PER PHARMACY PER PROTOCOL XX ; Start 01/11/19 at 02:30 Lisinopril (Zestril) 2.5 mg DAILY PO Last administered on 02/09/19 08:19; Admin Dose 2.5 MG; Start 01/13/19 at 09:00 Senna (Senokot) 1 tab DAILY PRN PO CONSTIPATION Last administered on 02/07/19 14:26; Admin Dose 1 TAB; Start 01/12/19 at 18:30 Neomycin/ Polymyxin/ Bacitracin (Neosporin Topical Oint) 1 applic DAILY TOP Last administered on 02/11/19 09:02; Admin Dose 1 APPLIC; Start 01/12/19 at 18:30 Cyanocobalamin (Vitamin B12 Inj) 1,000 mcg DAILY IM Last administered on 02/11/19 08:57; Admin Dose 1,000 MCG; Start 01/16/19 at 09:00 Pantoprazole (Protonix Tab) 40 mg DAILY@06 PO Last administered on 02/11/19 06:07; Admin Dose 40 MG; Start 01/17/19 at 06:00 Metronidazole 100 ml @ 100 mls/hr Q8 IVPB Last administered on 02/11/19 06:07; Admin Dose 100 MLS/HR; Start 01/16/19 at 22:00 Cefepime HCl 50 ml @ 100 mls/hr Q12 IVPB Last administered on 02/11/19 08:59; Admin Dose 100 MLS/HR; Start 01/17/19 at 21:00 Oxycodone HCl (Oxycontin) 10 mg BID PO Last administered on 02/11/19 09:09; Admin Dose 10 MG; Start 01/18/19 at 15:00 Furosemide (Lasix) 20 mg BID DIURETICS IV Last administered on 02/10/19 18:07; Admin Dose 20 MG; Start 01/21/19 at 18:30 Vancomycin HCl 1.25 gm/Sodium Chloride 250 ml @ 83.333 mls/ hr Q12H IVPB Last administered on 02/11/19 01:54; Admin Dose 83.333 MLS/HR; Start 01/25/19 at 01:00 Insulin Aspart (Novolog Insulin Pen) NOVOLOG *MODERATE* ALGORITHM WITH MEALS BEDTIME SC Last administered on 02/10/19 18:02; Admin Dose 2 UNIT; Start 01/26/19 at 21:00 IV Flush (NS 10 ml) 10 ml PRN PRN IV IV PROTOCOL; Start 01/29/19 at 17:00 Hydromorphone HCl (Dilaudid) 1 mg Q4H PRN IV SEVERE PAIN LEVEL 7-10 Last administered on 02/11/19at 10:15; Admin Dose 1 MG; Start 02/02/19 at 15:30 Docusate Sodium (Colace) 100 mg BID PO Last administered on 02/11/19 08:59; Admin Dose 100 MG; Start 02/07/19 at 21:00 Magnesium Hydroxide (Milk Of Mag) 30 ml BID PRN PO CONSTIPATION; Start 02/08/19 at 14:00 Miscellaneous Information (*Order Clarification Bulletin) MEDICATION REQUIRES CLARIFICATI... Q8H XX ; Start 02/09/19 at 09:30 Sodium Hypochlorite (Dakins Diluted (/40)) 1 applic DAILY TP Last administered on 02/11/19 09:02; Admin Dose 1 APPLIC; Start 02/09/19 at 13:00 Miscellaneous Information 1 ea Q12 XX ; Start 02/09/19 at 22:00 Acetaminophen (Tylenol Tab) 650 mg Q4H PRN PO MILD PAIN(1-3)OR ELEVATED TEMP; Start 02/10/19 at 22:00 Ondansetron HCl (Zofran Inj) 4 mg Q6H PRN IV NAUSEA AND/OR VOMITING; Start 02/10/19 at 22:00 FELICITY SORTO NP Feb 11, 2019 11:43
[2019-02-11] MEDS: DIGOXIN 0.125 MG TAB PO SCH (13:08)
--- NOTE | 2019-02-11 14:52 | CONS ---
Assessment/Plan Assessment/Plan Hospital Course (Demo Recall) IMP: 1.Pre-op for peripheral bypass surgery. Lexiscan with no ischemia/+scar EF 28%. Echo EF 25%. 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 Recc: -ON tele -Continue digoxin -Continue coreg and zestril as tolerated only for treatment of cardiomyopathy -Continue amiodarone -Continue abx's and f/u cx data -Follow slowly improving volume status closely and continue lasix diuresis as patient will comply. Check baseline creatnine -local wound care -pnding LE bypass tenatively scheduled for this saturday -transfuse PRBC's as neccessary -further outpatient eval of likely GIST tumor Consultation Date/Type/Reason Admit Date/Time January 09, 2019 at 18:17 Initial Consult Date 01/10/19 Type of Consult Cardiology Reason for Consultation preop Requesting Provider: KRISTIN PRYOR MD Date/Time of Note DATE: 02/11/19 TIME: 14:47 Exam/Review of Systems Vital Signs Vitals Vital Signs Date Temp Pulse Resp B/P (MAP) Pulse Ox O2 O2 Flow FiO2 Time Delivery Rate 02/11/19 80 12:30 02/11/19 98.0 16 96/59 (71) 100 11:08 02/08/19 Room Air 19:53 Intake and Output 02/10/19 02/10/19 02/11/19 1515:00 23:00 07:00 IntakeIntake Total 800 ml OutputOutput Total 1200 ml BalanceBalance -400 ml Exam Exam Review of Systems: CONSTITUTIONAL: No fevers, chills. PULMONARY: No sob CARDIOVASCULAR: No chest pain/palpitations GASTROINTESTINAL: No nausea/vomiting. GENITOURINARY: No hematuria/dysuria. MUSCULOSKELETAL: No myagias/arthalgias. PSYCHIATRIC: The patient denies depression. NEUROLOGIC: No weakness Constitutional: alert Psych: no complaints Head: normocephalic ENMT: mucosa pink and moist Neck: supple, jvd (9 cm water) Respiratory: diminished breath sounds Cardiovascular: regular rate and rhythm Gastrointestinal: soft, non-tender Musculoskeletal: muscle tone Extremities: edema (trace/B) 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: other (none) Labs Result Diagram: 02/08/19 0551 02/08/19 0551 Results 24hrs Laboratory Tests Test 02/10/19 17:43 02/10/19 21:19 02/11/19 02:01 02/11/19 07:42 Bedside Glucose 146 132 140 114 Test 02/11/19 12:13 Bedside Glucose 131 Medications Medications Current Medications Amiodarone HCl (Cordarone) 200 mg DAILY PO Last administered on 02/09/19at 08:19; Admin Dose 200 MG; Start 01/10/19 at 09:00 Digoxin (Digoxin) 0.125 mg DAILY@1300 PO Last administered on 02/11/19at 13:08; Admin Dose 0.125 MG; Start 01/10/19 at 13:00 Gabapentin (Neurontin) 600 mg DAILY PO Last administered on 02/11/19at 08:57; Admin Dose 600 MG; Start 01/10/19 at 09:00 Empaglifozin (Jardiance) 25 mg DAILY PO Last administered on 02/11/19at 07:43; Admin Dose 25 MG; Start 01/10/19 at 09:00 Linagliptin (Tradjenta) 5 mg DAILY PO Last administered on 02/11/19at 07:43; Admin Dose 5 MG; Start 01/10/19 at 09:00 Diagnostic Test (Pha) (Accu-Chek) 1 ea 02 XX Last administered on 02/11/19at 02:01; Admin Dose 1 EA; Start 01/10/19 at 02:00 Miscellaneous Information 1 ea NOTE XX ; Start 01/09/19 at 21:30 Glucose (Glutose) 15 gm Q15M PRN PO DECREASED GLUCOSE; Start 01/09/19 at 21:30 Glucose (Glutose) 22.5 gm Q15M PRN PO DECREASED GLUCOSE; Start 01/09/19 at 21:30 Dextrose (D50w Syringe) 50 ml Q15M PRN IV DECREASED GLUCOSE; Start 01/09/19 at 21:30 Glucagon (Glucagen) 1 mg Q15M PRN IM DECREASED GLUCOSE; Start 01/09/19 at 21:30 Glucose (Glutose) 15 gm Q15M PRN BUCCAL DECREASED GLUCOSE; Start 01/09/19 at 21:30 Insulin Glargine (Lantus) 18 units QHS SC Last administered on 02/10/19 21:25; Admin Dose 18 UNITS; Start 01/09/19 at 22:30 Carvedilol (Coreg) 3.125 mg BID PO Last administered on 02/10/19 21:15; Admin Dose 3.125 MG; Start 01/10/19 at 21:00 Vancomycin HCl (Vanco Iv Per Pharmacy) VANCOMYCIN PER PHARMACY PER PROTOCOL XX ; Start 01/11/19 at 02:30 Lisinopril (Zestril) 2.5 mg DAILY PO Last administered on 02/09/19 08:19; Admin Dose 2.5 MG; Start 01/13/19 at 09:00 Senna (Senokot) 1 tab DAILY PRN PO CONSTIPATION Last administered on 02/07/19 14:26; Admin Dose 1 TAB; Start 01/12/19 at 18:30 Neomycin/ Polymyxin/ Bacitracin (Neosporin Topical Oint) 1 applic DAILY TOP Last administered on 02/11/19 09:02; Admin Dose 1 APPLIC; Start 01/12/19 at 18:30 Cyanocobalamin (Vitamin B12 Inj) 1,000 mcg DAILY IM Last administered on 02/11/19 08:57; Admin Dose 1,000 MCG; Start 01/16/19 at 09:00 Pantoprazole (Protonix Tab) 40 mg DAILY@06 PO Last administered on 02/11/19 06:07; Admin Dose 40 MG; Start 01/17/19 at 06:00 Metronidazole 100 ml @ 100 mls/hr Q8 IVPB Last administered on 02/11/19 14:36; Admin Dose 100 MLS/HR; Start 01/16/19 at 22:00 Cefepime HCl 50 ml @ 100 mls/hr Q12 IVPB Last administered on 02/11/19 08:59; Admin Dose 100 MLS/HR; Start 01/17/19 at 21:00 Oxycodone HCl (Oxycontin) 10 mg BID PO Last administered on 02/11/19 09:09; Admin Dose 10 MG; Start 01/18/19 at 15:00 Furosemide (Lasix) 20 mg BID DIURETICS IV Last administered on 02/10/19 18:07; Admin Dose 20 MG; Start 01/21/19 at 18:30 Vancomycin HCl 1.25 gm/Sodium Chloride 250 ml @ 83.333 mls/ hr Q12H IVPB Last administered on 02/11/19 13:08; Admin Dose 83.333 MLS/HR; Start 01/25/19 at 01:00 Insulin Aspart (Novolog Insulin Pen) NOVOLOG *MODERATE* ALGORITHM WITH MEALS BEDTIME SC Last administered on 02/10/19 18:02; Admin Dose 2 UNIT; Start 01/26/19 at 21:00 IV Flush (NS 10 ml) 10 ml PRN PRN IV IV PROTOCOL; Start 01/29/19 at 17:00 Hydromorphone HCl (Dilaudid) 1 mg Q4H PRN IV SEVERE PAIN LEVEL 7-10 Last administered on 02/11/19 10:15; Admin Dose 1 MG; Start 02/02/19 at 15:30 Docusate Sodium (Colace) 100 mg BID PO Last administered on 02/11/19 08:59; Admin Dose 100 MG; Start 02/07/19 at 21:00 Magnesium Hydroxide (Milk Of Mag) 30 ml BID PRN PO CONSTIPATION; Start 02/08/19 at 14:00 Miscellaneous Information (*Order Clarification Bulletin) MEDICATION REQUIRES CLARIFICATI... Q8H XX ; Start 02/09/19 at 09:30 Sodium Hypochlorite (Dakins Diluted (/40)) 1 applic DAILY TP Last administered on 02/11/19 09:02; Admin Dose 1 APPLIC; Start 02/09/19 at 13:00 Miscellaneous Information 1 ea Q12 XX ; Start 02/09/19 at 22:00 Acetaminophen (Tylenol Tab) 650 mg Q4H PRN PO MILD PAIN(1-3)OR ELEVATED TEMP; Start 02/10/19 at 22:00 Ondansetron HCl (Zofran Inj) 4 mg Q6H PRN IV NAUSEA AND/OR VOMITING; Start 02/10/19 at 22:00 VERO ARELLANO Feb 11, 2019 14:52
--- NOTE | 2019-02-11 14:57 | PN ---
Date/Time of Note Date/Time of Note DATE: 02/11/19 TIME: 14:55 Assessment/Plan VTE Prophylaxis Risk score (from Ns)>0 risk: 6 SCD applied (from Ns): Yes Pharmacological prophylaxis: NA/contraindicated Pharm contraindication: anticoag not tolerated Lines/Catheters IV Catheter Type (from Nrsg): PICC Line Central line still needed: Yes Urinary Cath still in place: No Assessment/Plan Hospital Course Patient remains hemodynamically stable, afebrile, plan for vascular surgery on Saturday by Dr. Sheppard. No group home facility placement is available for today per centimeter meeting in the morning. 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 EUS and FNA as an outpatient to confirm GIST tumor diagnosis. Continue PPI. -New onset of anemia and hypotension requiring blood transfusion on 01/15/2019, stool for OB is negative. -Right heel necrotic wound. Dr. Mata is following in podiatry consultation. Status post debridement. Continue antibiotics per ID. Dr. Urbano is following in infection disease consultation. Will require total of 6 weeks of Vancomycin IV, Cefepime IV, and Flagyl IV through 02/22/19. -Chronic peripheral vascular disease, history of angioplasty x2. Dr. Sheppard is following in vascular surgery consultation. Plan for a right pop DP bypass as an outpatient. -Coronary artery disease, status post coronary artery bypass graft. -Cardiomyopathy with ejection fraction of 25%. Continue Coreg. Dr. Foster is following in cardiology consultation. -Status post AICD. -Hx of Hypertension. -Diabetes hemoglobin A1c 7.6. Continue Lantus and NovoLog. -Right knee contusion and abrasion status post fall. Status post evaluation by Dr. Zelaya and orthopedic surgery. No signs of fracture or dystrophic dislocation. -Chronic low back pain with significant spondylolisthesis grade II at the level of L5 to S1. Further recommendations based on clinical course. Plan of care discussed with Dr. Mann. Result Diagram: 02/08/19 0551 02/08/19 0551 Results 24hrs Laboratory Tests Test 02/10/19 17:43 02/10/19 21:19 02/11/19 02:01 02/11/19 07:42 Bedside Glucose 146 132 140 114 Test 02/11/19 12:13 Bedside Glucose 131 Exam/Review of Systems Exam Vitals Vital Signs Date Temp Pulse Resp B/P (MAP) Pulse Ox O2 O2 Flow FiO2 Time Delivery Rate 02/11/19 80 12:30 02/11/19 98.0 16 96/59 (71) 100 11:08 02/08/19 Room Air 19:53 Intake and Output 02/10/19 02/10/19 02/11/19 1515:00 23:00 07:00 IntakeIntake Total 800 ml OutputOutput Total 1200 ml BalanceBalance -400 ml Exam Constitutional: alert, oriented Respiratory: clear to auscultation Cardiovascular: regular rhythm and rate, AICD Gastrointestinal: soft, non-tender Extremities: normal pulses, other (Right heel wound) Right chest triple lumen catheter Results Results 24hrs Laboratory Tests Test 02/10/19 17:43 02/10/19 21:19 02/11/19 02:01 02/11/19 07:42 Bedside Glucose 146 132 140 114 Test 02/11/19 12:13 Bedside Glucose 131 Medications Medication Current Medications Amiodarone HCl (Cordarone) 200 mg DAILY PO Last administered on 02/09/19 08:19; Admin Dose 200 MG; Start 01/10/19 at 09:00 Digoxin (Digoxin) 0.125 mg DAILY@1300 PO Last administered on 02/11/19 13:08; A dmin Dose 0.125 MG; Start 01/10/19 at 13:00 Gabapentin (Neurontin) 600 mg DAILY PO Last administered on 02/11/19 08:57; Admin Dose 600 MG; Start 01/10/19 at 09:00 Empaglifozin (Jardiance) 25 mg DAILY PO Last administered on 02/11/19at 07:43; Admin Dose 25 MG; Start 01/10/19 at 09:00 Linagliptin (Tradjenta) 5 mg DAILY PO Last administered on 02/11/19 07:43; Admin Dose 5 MG; Start 01/10/19 at 09:00 Diagnostic Test (Pha) (Accu-Chek) 1 ea 02 XX Last administered on 02/11/19at 02:01; Admin Dose 1 EA; Start 01/10/19 at 02:00 Miscellaneous Information 1 ea NOTE XX ; Start 01/09/19 at 21:30 Glucose (Glutose) 15 gm Q15M PRN PO DECREASED GLUCOSE; Start 01/09/19 at 21:30 Glucose (Glutose) 22.5 gm Q15M PRN PO DECREASED GLUCOSE; Start 01/09/19 at 21:30 Dextrose (D50w Syringe) 50 ml Q15M PRN IV DECREASED GLUCOSE; Start 01/09/19 at 21:30 Glucagon (Glucagen) 1 mg Q15M PRN IM DECREASED GLUCOSE; Start 01/09/19 at 21:30 Glucose (Glutose) 15 gm Q15M PRN BUCCAL DECREASED GLUCOSE; Start 01/09/19 at 21:30 Insulin Glargine (Lantus) 18 units QHS SC Last administered on 02/10/19 21:25; Admin Dose 18 UNITS; Start 01/09/19 at 22:30 Carvedilol (Coreg) 3.125 mg BID PO Last administered on 02/10/19 21:15; Admin Dose 3.125 MG; Start 01/10/19 at 21:00 Vancomycin HCl (Vanco Iv Per Pharmacy) VANCOMYCIN PER PHARMACY PER PROTOCOL XX ; Start 01/11/19 at 02:30 Lisinopril (Zestril) 2.5 mg DAILY PO Last administered on 02/09/19 08:19; Admin Dose 2.5 MG; Start 01/13/19 at 09:00 Senna (Senokot) 1 tab DAILY PRN PO CONSTIPATION Last administered on 02/07/19 14:26; Admin Dose 1 TAB; Start 01/12/19 at 18:30 Neomycin/ Polymyxin/ Bacitracin (Neosporin Topical Oint) 1 applic DAILY TOP Last administered on 02/11/19 09:02; Admin Dose 1 APPLIC; Start 01/12/19 at 18:30 Cyanocobalamin (Vitamin B12 Inj) 1,000 mcg DAILY IM Last administered on 02/11/19 08:57; Admin Dose 1,000 MCG; Start 01/16/19 at 09:00 Pantoprazole (Protonix Tab) 40 mg DAILY@06 PO Last administered on 02/11/19 06:07; Admin Dose 40 MG; Start 01/17/19 at 06:00 Metronidazole 100 ml @ 100 mls/hr Q8 IVPB Last administered on 02/11/19 14:36; Admin Dose 100 MLS/HR; Start 01/16/19 at 22:00 Cefepime HCl 50 ml @ 100 mls/hr Q12 IVPB Last administered on 02/11/19 08:59; Admin Dose 100 MLS/HR; Start 01/17/19 at 21:00 Oxycodone HCl (Oxycontin) 10 mg BID PO Last administered on 02/11/19 09:09; Admin Dose 10 MG; Start 01/18/19 at 15:00 Furosemide (Lasix) 20 mg BID DIURETICS IV Last administered on 02/10/19 18:07; Admin Dose 20 MG; Start 01/21/19 at 18:30 Vancomycin HCl 1.25 gm/Sodium Chloride 250 ml @ 83.333 mls/ hr Q12H IVPB Last administered on 02/11/19 13:08; Admin Dose 83.333 MLS/HR; Start 01/25/19 at 01:00 Insulin Aspart (Novolog Insulin Pen) NOVOLOG *MODERATE* ALGORITHM WITH MEALS BEDTIME SC Last administered on 02/10/19 18:02; Admin Dose 2 UNIT; Start 01/26/19 at 21:00 IV Flush (NS 10 ml) 10 ml PRN PRN IV IV PROTOCOL; Start 01/29/19 at 17:00 Hydromorphone HCl (Dilaudid) 1 mg Q4H PRN IV SEVERE PAIN LEVEL 7-10 Last administered on 02/11/19 10:15; Admin Dose 1 MG; Start 02/02/19 at 15:30 Docusate Sodium (Colace) 100 mg BID PO Last administered on 02/11/19 08:59; Admin Dose 100 MG; Start 02/07/19 at 21:00 Magnesium Hydroxide (Milk Of Mag) 30 ml BID PRN PO CONSTIPATION; Start 02/08/19 at 14:00 Miscellaneous Information (*Order Clarification Bulletin) MEDICATION REQUIRES CLARIFICATI... Q8H XX ; Start 02/09/19 at 09:30 Sodium Hypochlorite (Dakins Diluted ()) 1 applic DAILY TP Last administered on 02/11/19 09:02; Admin Dose 1 APPLIC; Start 02/09/19 at 13:00 Miscellaneous Information 1 ea Q12 XX ; Start 02/09/19 at 22:00 Acetaminophen (Tylenol Tab) 650 mg Q4H PRN PO MILD PAIN(1-3)OR ELEVATED TEMP; Start 02/10/19 at 22:00 Ondansetron HCl (Zofran Inj) 4 mg Q6H PRN IV NAUSEA AND/OR VOMITING; Start 02/10/19 at 22:00 RAMESH SOLORZANO Feb 11, 2019 14:57
[2019-02-11] MEDS: INSULIN GLARGINE [LANTus] (100 UNITS/ML) SYG SC SCH (21:19)
[2019-02-12] VITALS (13 sets, daily range): BP systolic 91–131; BP diastolic 56–74; PULSE 17–106; RESP 17–18
[2019-02-12] MEDS: HYDROmorphONE 1 MG/ML SYG IV PRN ×6 (00:55→21:59)
[2019-02-12] MEDS: VANCOMYCIN HCL 1.25 GM in SOD CHLORIDE 0.9% 250 ML IVPB SCH ×2 (00:56→12:31)
[2019-02-12] MEDS: ACCU-CHEK XX SCH (02:42)
[2019-02-12] MEDS: PANTOPRAZOLE (EC) 40 MG TAB PO SCH (05:10)
[2019-02-12] MEDS: metroNIDAZOLE 500 MG/NS (PMX) 100 ML IVPB SCH ×3 (05:10→21:58)
[2019-02-12] MEDS: FUROSEMIDE 20 MG INJ IV SCH (06:00)
[2019-02-12] MEDS: INSULIN ASPART [NOVOLOG] 3 ML PEN SC SCH ×4 (07:53→21:00)
[2019-02-12] MEDS: EMPAGLIFLOZIN 10 MG TABLET PO SCH (07:54)
[2019-02-12] MEDS: LINAGLIPTIN 5 MG TABLET PO SCH (07:54)
[2019-02-12] MEDS: GABAPENTIN 300 MG CAP PO SCH (08:46)
[2019-02-12] MEDS: DOCUSATE SODIUM 100 MG CAP PO SCH ×2 (08:46→21:06)
[2019-02-12] MEDS: CYANOCOBALAMIN 1000 MCG INJ IM SCH (08:46)
[2019-02-12] MEDS: LISINOPRIL 5 MG TAB PO SCH (08:47)
[2019-02-12] MEDS: AMIODARONE 200 MG TAB PO SCH (08:48)
[2019-02-12] MEDS: (Nursing Note) XX SCH (09:00)
--- NOTE | 2019-02-12 09:53 | CONS ---
Assessment/Plan Assessment/Plan Assessment/Plan (Daily) Note for patient visit 2018 Status post debridement debridement the right human chronic wound Severe peripheral vascular disease status post angioplasty times two, hyperkalemia hypertension coronary artery disease status post coronary artery bypass graft, cardiomyopathy with an ejection fraction 25% Severe peripheral vascular disease resulting in uncontrolled pain with elevation of his leg with light dependent pain is almost 100% resolved Patient remains very optimistic that he will continue to improve, pain is under control with very low dose of opioids and distraction therapy. Progressing well pain is under control she is not negotiating for higher doses of medications Consultation Date/Type/Reason Admit Date/Time January 09, 2019 at 18:17 Initial Consult Date 01/16/19 Requesting Provider: KRISTIN PRYOR MD Date/Time of Note DATE: 02/12/19 TIME: 09:51 Exam/Review of Systems Exam Vitals Vital Signs Date Temp Pulse Resp B/P (MAP) Pulse Ox O2 O2 Flow FiO2 Time Delivery Rate 02/12/19 88 08:00 02/12/19 98.0 18 92/58 (69) 95 07:09 02/08/19 Room Air 19:53 Intake and Output 02/11/19 02/11/19 02/12/19 1515:00 23:00 07:00 IntakeIntake Total 600 ml 1000 ml OutputOutput Total 2000 ml BalanceBalance 600 ml -1000 ml Constitutional: alert, oriented, well developed; No non-verbal, No distress, No frail, No obese, No other 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: [employer] CONSULTANT II-XII intact, nl mental status, nl speech, nl strength Results Result Diagram: 02/08/19 0551 02/12/19 0548 Results 24hrs Laboratory Tests Test 02/11/19 12:13 02/11/19 17:36 02/11/19 20:56 02/12/19 01:44 Bedside Glucose 131 159 129 139 Test 02/12/19 05:48 02/12/19 07:53 Blood Urea Nitrogen 18 Creatinine 0.60 L Bedside Glucose 123 Medications Medication Current Medications Amiodarone HCl (Cordarone) 200 mg DAILY PO Last administered on 02/12/19at 08:48; Admin Dose 200 MG; Start 01/10/19 at 09:00 Digoxin (Digoxin) 0.125 mg DAILY@1300 PO Last administered on 02/11/19at 13:08; Admin Dose 0.125 MG; Start 01/10/19 at 13:00 Gabapentin (Neurontin) 600 mg DAILY PO Last administered on 02/12/19 08:46; Admin Dose 600 MG; Start 01/10/19 at 09:00 Empaglifozin (Jardiance) 25 mg DAILY PO Last administered on 02/12/19 07:54; Admin Dose 25 MG; Start 01/10/19 at 09:00 Linagliptin (Tradjenta) 5 mg DAILY PO Last administered on 02/12/19 07:54; Admi n Dose 5 MG; Start 01/10/19 at 09:00 Diagnostic Test (Pha) (Accu-Chek) 1 ea 02 XX Last administered on 02/12/19 02:42; Admin Dose 1 EA; Start 01/10/19 at 02:00 Miscellaneous Information 1 ea NOTE XX ; Start 01/09/19 at 21:30 Glucose (Glutose) 15 gm Q15M PRN PO DECREASED GLUCOSE; Start 01/09/19 at 21:30 Glucose (Glutose) 22.5 gm Q15M PRN PO DECREASED GLUCOSE; Start 01/09/19 at 21:30 Dextrose (D50w Syringe) 50 ml Q15M PRN IV DECREASED GLUCOSE; Start 01/09/19 at 21:30 Glucagon (Glucagen) 1 mg Q15M PRN IM DECREASED GLUCOSE; Start 01/09/19 at 21:30 Glucose (Glutose) 15 gm Q15M PRN BUCCAL DECREASED GLUCOSE; Start 01/09/19 at 21:30 Insulin Glargine (Lantus) 18 units QHS SC Last administered on 02/11/19 21:19; Admin Dose 18 UNITS; Start 01/09/19 at 22:30 Carvedilol (Coreg) 3.125 mg BID PO Last administered on 02/12/19 08:48; Admin Dose 3.125 MG; Start 01/10/19 at 21:00 Vancomycin HCl (Vanco Iv Per Pharmacy) VANCOMYCIN PER PHARMACY PER PROTOCOL XX ; Start 01/11/19 at 02:30 Lisinopril (Zestril) 2.5 mg DAILY PO Last administered on 02/12/19 08:47; Admin Dose 2.5 MG; Start 01/13/19 at 09:00 Senna (Senokot) 1 tab DAILY PRN PO CONSTIPATION Last administered on 02/07/19 14:26; Admin Dose 1 TAB; Start 01/12/19 at 18:30 Neomycin/ Polymyxin/ Bacitracin (Neosporin Topical Oint) 1 applic DAILY TOP Las t administered on 02/11/19 09:02; Admin Dose 1 APPLIC; Start 01/12/19 at 18:30 Cyanocobalamin (Vitamin B12 Inj) 1,000 mcg DAILY IM Last administered on 02/12/19 08:46; Admin Dose 1,000 MCG; Start 01/16/19 at 09:00 Pantoprazole (Protonix Tab) 40 mg DAILY@06 PO Last administered on 02/12/19 05:10; Admin Dose 40 MG; Start 01/17/19 at 06:00 Metronidazole 100 ml @ 100 mls/hr Q8 IVPB Last administered on 02/12/19 05:10; Admin Dose 100 MLS/HR; Start 01/16/19 at 22:00 Cefepime HCl 50 ml @ 100 mls/hr Q12 IVPB Last administered on 02/11/19 21:41; Admin Dose 100 MLS/HR; Start 01/17/19 at 21:00 Oxycodone HCl (Oxycontin) 10 mg BID PO Last administered on 02/11/19 20:54; Admin Dose 10 MG; Start 01/18/19 at 15:00 Furosemide (Lasix) 20 mg BID DIURETICS IV Last administered on 02/11/19 17:42; Admin Dose 20 MG; Start 01/21/19 at 18:30 Vancomycin HCl 1.25 gm/Sodium Chloride 250 ml @ 83.333 mls/ hr Q12H IVPB Last administered on 02/12/19 00:56; Admin Dose 83.333 MLS/HR; Start 01/25/19 at 01:00 Insulin Aspart (Novolog Insulin Pen) NOVOLOG *MODERATE* ALGORITHM WITH MEALS BEDTIME SC Last administered on 02/11/19 17:48; Admin Dose 2 UNIT; Start 01/26/19 at 21:00 IV Flush (NS 10 ml) 10 ml PRN PRN IV IV PROTOCOL; Start 01/29/19 at 17:00 Hydromorphone HCl (Dilaudid) 1 mg Q4H PRN IV SEVERE PAIN LEVEL 7-10 Last administered on 02/12/19at 08:53; Admin Dose 1 MG; Start 02/02/19 at 15:30 Docusate Sodium (Colace) 100 mg BID PO Last administered on 02/12/19at 08:46; Admin Dose 100 MG; Start 02/07/19 at 21:00 Magnesium Hydroxide (Milk Of Mag) 30 ml BID PRN PO CONSTIPATION; Start 02/08/19 at 14:00 Miscellaneous Information (*Order Clarification Bulletin) MEDICATION REQUIRES CLARIFICATI... Q8H XX ; Start 02/09/19 at 09:30 Sodium Hypochlorite (Dakins Diluted ()) 1 applic DAILY TP Last administered on 02/11/19at 09:02; Admin Dose 1 APPLIC; Start 02/09/19 at 13:00 Miscellaneous Information 1 ea Q12 XX ; Start 02/09/19 at 22:00 Acetaminophen (Tylenol Tab) 650 mg Q4H PRN PO MILD PAIN(1-3)OR ELEVATED TEMP; Start 02/10/19 at 22:00 Ondansetron HCl (Zofran Inj) 4 mg Q6H PRN IV NAUSEA AND/OR VOMITING; Start 02/10/19 at 22:00 BIGG RICHARDSON Feb 12, 2019 09:53
[2019-02-12] MEDS: DAKINS 0.0125%(1/40) 473 ML SOLUTION TP SCH (10:12)
[2019-02-12] MEDS: CEFEPIME 2GM/50 ML (PMX) 50 ML IVPB SCH ×2 (10:12→21:06)
[2019-02-12] MEDS: oxyCODONE (CR) 10 MG TAB [oxyCONTIN] PO SCH ×2 (10:12→21:10)
[2019-02-12] MEDS: NEOMYC/POLYMYX/BACIT 30 GM OINT TOP SCH (10:13)
[2019-02-12] MEDS: DIGOXIN 0.125 MG TAB PO SCH (12:31)
--- NOTE | 2019-02-12 12:59 | CONS ---
Assessment/Plan Assessment/Plan Hospital Course (Demo Recall) #Gastric mass -pt to have EUS and FNA ans an out patient. 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 Coli, Proteus, and Enterococcus -continue IV abx per ID - Plan for a right pop bypass tomorrow # Anemia-normocytic -Hg currently stable > 9 -likely 2/2 GI bleed -continue to hold all blood thinners -CT A/P does not reveal evidence of bleed -f/u endoscopy. pt was found with a T3.5 cm mass/filling defect arising along the lesser curvature of the stomach - consistent with GIST tumor Consultation Date/Type/Reason Admit Date/Time January 09, 2019 at 18:17 Initial Consult Date 01/16/19 Type of Consult oncology Reason for Consultation GIST tumor Requesting Provider: KRISTIN PRYOR MD Date/Time of Note DATE: 02/12/19 TIME: 12:58 24 HR Interval Summary Free Text/Dictation no acute overnight events. scheduled for surgery tomorrow Exam/Review of Systems Exam Vitals Vital Signs Date Temp Pulse Resp B/P (MAP) Pulse Ox O2 O2 Flow FiO2 Time Delivery Rate 02/12/19 91 12:00 02/12/19 98.0 18 91/56 (68) 94 11:10 02/08/19 Room Air 19:53 Intake and Output 02/11/19 02/11/19 02/12/19 1515:00 23:00 07:00 IntakeIntake Total 600 ml 1000 ml OutputOutput Total 2000 ml BalanceBalance 600 ml -1000 ml Constitutional: alert, oriented Psych: no complaints Head: normocephalic Eyes: nl conjunctiva ENMT: nl external ears & nose Neck: supple Respiratory: clear to auscultation Cardiovascular: regular rate and rhythm Gastrointestinal: soft Musculoskeletal: other (L foot with non healing wound) Results Result Diagram: 02/08/19 0551 02/12/19 0548 Results 24hrs Laboratory Tests Test 02/11/19 17:36 02/11/19 20:56 02/12/19 01:44 02/12/19 05:48 Bedside Glucose 159 129 139 Blood Urea Nitrogen 18 Creatinine 0.60 L Test 02/12/19 07:53 02/12/19 11:49 Bedside Glucose 123 112 Medications Medication Current Medications Amiodarone HCl (Cordarone) 200 mg DAILY PO Last administered on 02/12/19 08:48; Admin Dose 200 MG; Start 01/10/19 at 09:00 Digoxin (Digoxin) 0.125 mg DAILY@1300 PO Last administered on 02/12/19 12:31; Admin Dose 0.125 MG; Start 01/10/19 at 13:00 Gabapentin (Neurontin) 600 mg DAILY PO Last administered on 02/12/19 08:46; Admin Dose 600 MG; Start 01/10/19 at 09:00 Empaglifozin (Jardiance) 25 mg DAILY PO Last administered on 02/12/19 07:54; Admin Dose 25 MG; Start 01/10/19 at 09:00 Linagliptin (Tradjenta) 5 mg DAILY PO Last administered on 02/12/19 07:54; Admin Dose 5 MG; Start 01/10/19 at 09:00 Diagnostic Test (Pha) (Accu-Chek) 1 ea 02 XX Last administered on 02/12/19 02:42; Admin Dose 1 EA; Start 01/10/19 at 02:00 Miscellaneous Information 1 ea NOTE XX ; Start 01/09/19 at 21:30 Glucose (Glutose) 15 gm Q15M PRN PO DECREASED GLUCOSE; Start 01/09/19 at 21:30 Glucose (Glutose) 22.5 gm Q15M PRN PO DECREASED GLUCOSE; Start 01/09/19 at 21:30 Dextrose (D50w Syringe) 50 ml Q15M PRN IV DECREASED GLUCOSE; Start 01/09/19 at 21:30 Glucagon (Glucagen) 1 mg Q15M PRN IM DECREASED GLUCOSE; Start 01/09/19 at 21:30 Glucose (Glutose) 15 gm Q15M PRN BUCCAL DECREASED GLUCOSE; Start 01/09/19 at 21:30 Insulin Glargine (Lantus) 18 units QHS SC Last administered on 02/11/19 21:19; Admin Dose 18 UNITS; Start 01/09/19 at 22:30 Carvedilol (Coreg) 3.125 mg BID PO Last administered on 02/12/19 08:48; Admin Dose 3.125 MG; Start 01/10/19 at 21:00 Vancomycin HCl (Vanco Iv Per Pharmacy) VANCOMYCIN PER PHARMACY PER PROTOCOL XX ; Start 01/11/19 at 02:30 Lisinopril (Zestril) 2.5 mg DAILY PO Last administered on 02/12/19 08:47; Admin Dose 2.5 MG; Start 01/13/19 at 09:00 Senna (Senokot) 1 tab DAILY PRN PO CONSTIPATION Last administered on 02/07/19 14:26; Admin Dose 1 TAB; Start 01/12/19 at 18:30 Neomycin/ Polymyxin/ Bacitracin (Neosporin Topical Oint) 1 applic DAILY TOP Last administered on 02/12/19 10:13; Admin Dose 1 APPLIC; Start 01/12/19 at 18:30 Cyanocobalamin (Vitamin B12 Inj) 1,000 mcg DAILY IM Last administered on 02/12/19 08:46; Admin Dose 1,000 MCG; Start 01/16/19 at 09:00 Pantoprazole (Protonix Tab) 40 mg DAILY@06 PO Last administered on 02/12/19 05:10; Admin Dose 40 MG; Start 01/17/19 at 06:00 Metronidazole 100 ml @ 100 mls/hr Q8 IVPB Last administered on 02/12/19 05:10; Admin Dose 100 MLS/HR; Start 01/16/19 at 22:00 Cefepime HCl 50 ml @ 100 mls/hr Q12 IVPB Last administered on 02/12/19 10:12; Admin Dose 100 MLS/HR; Start 01/17/19 at 21:00 Oxycodone HCl (Oxycontin) 10 mg BID PO Last administered on 02/12/19 10:12; Admin Dose 10 MG; Start 01/18/19 at 15:00 Furosemide (Lasix) 20 mg BID DIURETICS IV Last administered on 02/11/19 17:42; Admin Dose 20 MG; Start 01/21/19 at 18:30 Vancomycin HCl 1.25 gm/Sodium Chloride 250 ml @ 83.333 mls/ hr Q12H IVPB Last administered on 02/12/19 12:31; Admin Dose 83.333 MLS/HR; Start 01/25/19 at 01:00 Insulin Aspart (Novolog Insulin Pen) NOVOLOG *MODERATE* ALGORITHM WITH MEALS BEDTIME SC Last administered on 02/11/19 17:48; Admin Dose 2 UNIT; Start 01/26/19 at 21:00 IV Flush (NS 10 ml) 10 ml PRN PRN IV IV PROTOCOL; Start 01/29/19 at 17:00 Hydromorphone HCl (Dilaudid) 1 mg Q4H PRN IV SEVERE PAIN LEVEL 7-10 Last administered on 02/12/19 08:53; Admin Dose 1 MG; Start 02/02/19 at 15:30 Docusate Sodium (Colace) 100 mg BID PO Last administered on 02/12/19 08:46; Admin Dose 100 MG; Start 02/07/19 at 21:00 Magnesium Hydroxide (Milk Of Mag) 30 ml BID PRN PO CONSTIPATION; Start 02/08/19 at 14:00 Miscellaneous Information (*Order Clarification Bulletin) MEDICATION REQUIRES CLARIFICATI... Q8H XX ; Start 02/09/19 at 09:30 Sodium Hypochlorite (Dakins Diluted (/40)) 1 applic DAILY TP Last administered on 02/12/19 10:12; Admin Dose 1 APPLIC; Start 02/09/19 at 13:00 Miscellaneous Information 1 ea Q12 XX ; Start 02/09/19 at 22:00 Acetaminophen (Tylenol Tab) 650 mg Q4H PRN PO MILD PAIN(1-3)OR ELEVATED TEMP; Start 02/10/19 at 22:00 Ondansetron HCl (Zofran Inj) 4 mg Q6H PRN IV NAUSEA AND/OR VOMITING; Start 02/10/19 at 22:00 TJ QUINTERO M.D. Feb 12, 2019 12:59
--- NOTE | 2019-02-12 13:46 | CONS ---
Assessment/Plan Assessment/Plan Hospital Course (Demo Recall) IMP: 1.Pre-op for peripheral bypass surgery. Lexiscan with no ischemia/+scar EF 28%. Echo EF 25%. OK to proceed to surgery at moderate CV risk 2.Cardiomyopathy with low EF-severely depressed by echo this admit 3.Hoth-borderline today 4.HL 5.Non-healing LE ulcer 6.PAD-severe s/p prior [employer]ER 7.DM 8. 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 Recc: -ON tele -Continue digoxin -Continue coreg and zestril as tolerated only for treatment of cardiomyopathy -Continue amiodarone -Continue abx's and f/u cx data -local wound care -pnding LE bypass tenatively scheduled for this saturday -transfuse PRBC's as neccessary -further outpatient eval of likely GIST tumor -change lasix to po daily and follow Consultation Date/Type/Reason Admit Date/Time January 09, 2019 at 18:17 Initial Consult Date 01/10/19 Type of Consult Cardiology Reason for Consultation preop/CHF Requesting Provider: KRISTIN PRYOR MD Date/Time of Note DATE: 02/12/19 TIME: 13:44 Exam/Review of Systems Vital Signs Vitals Vital Signs Date Temp Pulse Resp B/P (MAP) Pulse Ox O2 O2 Flow FiO2 Time Delivery Rate 02/12/19 91 12:00 02/12/19 98.0 18 91/56 (68) 94 11:10 02/08/19 Room Air 19:53 Intake and Output 02/11/19 02/11/19 02/12/19 1414:59 22:59 06:59 IntakeIntake Total 600 ml 1000 ml OutputOutput Total 2000 ml BalanceBalance 600 ml -1000 ml Exam Exam Review of Systems: CONSTITUTIONAL: No fevers, chills. PULMONARY: No sob CARDIOVASCULAR: No chest pain/palpitations GASTROINTESTINAL: No nausea/vomiting. GENITOURINARY: No hematuria/dysuria. MUSCULOSKELETAL: BACK PAIN PSYCHIATRIC: The patient denies depression. NEUROLOGIC: No weakness Constitutional: alert Psych: no complaints Head: normocephalic ENMT: mucosa pink and moist Neck: supple, jvd (8 cm water) Respiratory: clear to auscultation Cardiovascular: regular rate and rhythm Gastrointestinal: soft, non-tender Musculoskeletal: muscle tone (normal) Extremities: edema (trace), other (covered by dressing in lower leg) 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: other (nO FOCAL DEFICITS) Labs Result Diagram: 02/08/19 0551 02/12/19 0548 Results 24hrs Laboratory Tests Test 02/11/19 17:36 02/11/19 20:56 02/12/19 01:44 02/12/19 05:48 Bedside Glucose 159 129 139 Blood Urea Nitrogen 18 Creatinine 0.60 L Test 02/12/19 07:53 02/12/19 11:49 Bedside Glucose 123 112 Medications Medications Current Medications Amiodarone HCl (Cordarone) 200 mg DAILY PO Last administered on 02/12/19 08:48; Admin Dose 200 MG; Start 01/10/19 at 09:00 Digoxin (Digoxin) 0.125 mg DAILY@1300 PO Last administered on 02/12/19 12:31; Admin Dose 0.125 MG; Start 01/10/19 at 13:00 Gabapentin (Neurontin) 600 mg DAILY PO Last administered on 02/12/19at 08:46; Admin Dose 600 MG; Start 01/10/19 at 09:00 Empaglifozin (Jardiance) 25 mg DAILY PO Last administered on 02/12/19at 07:54; Admin Dose 25 MG; Start 01/10/19 at 09:00 Linagliptin (Tradjenta) 5 mg DAILY PO Last administered on 02/12/19at 07:54; Admin Dose 5 MG; Start 01/10/19 at 09:00 Diagnostic Test (Pha) (Accu-Chek) 1 ea 02 XX Last administered on 02/12/19at 02:42; Admin Dose 1 EA; Start 01/10/19 at 02:00 Miscellaneous Information 1 ea NOTE XX ; Start 01/09/19 at 21:30 Glucose (Glutose) 15 gm Q15M PRN PO DECREASED GLUCOSE; Start 01/09/19 at 21:30 Glucose (Glutose) 22.5 gm Q15M PRN PO DECREASED GLUCOSE; Start 01/09/19 at 21:30 Dextrose (D50w Syringe) 50 ml Q15M PRN IV DECREASED GLUCOSE; Start 01/09/19 at 21:30 Glucagon (Glucagen) 1 mg Q15M PRN IM DECREASED GLUCOSE; Start 01/09/19 at 21:30 Glucose (Glutose) 15 gm Q15M PRN BUCCAL DECREASED GLUCOSE; Start 01/09/19 at 21:30 Insulin Glargine (Lantus) 18 units QHS SC Last administered on 02/11/19 21:19; Admin Dose 18 UNITS; Start 01/09/19 at 22:30 Carvedilol (Coreg) 3.125 mg BID PO Last administered on 02/12/19 08:48; Admin Dose 3.125 MG; Start 01/10/19 at 21:00 Vancomycin HCl (Vanco Iv Per Pharmacy) VANCOMYCIN PER PHARMACY PER PROTOCOL XX ; Start 01/11/19 at 02:30 Lisinopril (Zestril) 2.5 mg DAILY PO Last administered on 02/12/19 08:47; Admin Dose 2.5 MG; Start 01/13/19 at 09:00 Senna (Senokot) 1 tab DAILY PRN PO CONSTIPATION Last administered on 02/07/19 14:26; Admin Dose 1 TAB; Start 01/12/19 at 18:30 Neomycin/ Polymyxin/ Bacitracin (Neosporin Topical Oint) 1 applic DAILY TOP Last administered on 02/12/19 10:13; Admin Dose 1 APPLIC; Start 01/12/19 at 18:30 Cyanocobalamin (Vitamin B12 Inj) 1,000 mcg DAILY IM Last administered on 02/12/19 08:46; Admin Dose 1,000 MCG; Start 01/16/19 at 09:00 Pantoprazole (Protonix Tab) 40 mg DAILY@06 PO Last administered on 02/12/19 05:10; Admin Dose 40 MG; Start 01/17/19 at 06:00 Metronidazole 100 ml @ 100 mls/hr Q8 IVPB Last administered on 02/12/19 05:10; Admin Dose 100 MLS/HR; Start 01/16/19 at 22:00 Cefepime HCl 50 ml @ 100 mls/hr Q12 IVPB Last administered on 02/12/19 10:12; Admin Dose 100 MLS/HR; Start 01/17/19 at 21:00 Oxycodone HCl (Oxycontin) 10 mg BID PO Last administered on 02/12/19 10:12; Admin Dose 10 MG; Start 01/18/19 at 15:00 Furosemide (Lasix) 20 mg BID DIURETICS IV Last administered on 02/11/19 17:42; Admin Dose 20 MG; Start 01/21/19 at 18:30 Vancomycin HCl 1.25 gm/Sodium Chloride 250 ml @ 83.333 mls/ hr Q12H IVPB Last administered on 02/12/19 12:31; Admin Dose 83.333 MLS/HR; Start 01/25/19 at 01:00 Insulin Aspart (Novolog Insulin Pen) NOVOLOG *MODERATE* ALGORITHM WITH MEALS BEDTIME SC Last administered on 02/11/19 17:48; Admin Dose 2 UNIT; Start 01/26/19 at 21:00 IV Flush (NS 10 ml) 10 ml PRN PRN IV IV PROTOCOL; Start 01/29/19 at 17:00 Hydromorphone HCl (Dilaudid) 1 mg Q4H PRN IV SEVERE PAIN LEVEL 7-10 Last administered on 02/12/19 08:53; Admin Dose 1 MG; Start 02/02/19 at 15:30 Docusate Sodium (Colace) 100 mg BID PO Last administered on 02/12/19 08:46; Admin Dose 100 MG; Start 02/07/19 at 21:00 Magnesium Hydroxide (Milk Of Mag) 30 ml BID PRN PO CONSTIPATION; Start 02/08/19 at 14:00 Miscellaneous Information (*Order Clarification Bulletin) MEDICATION REQUIRES CLARIFICATI... Q8H XX ; Start 02/09/19 at 09:30 Sodium Hypochlorite (Dakins Diluted (/40)) 1 applic DAILY TP Last administered on 02/12/19 10:12; Admin Dose 1 APPLIC; Start 02/09/19 at 13:00 Miscellaneous Information 1 ea Q12 XX ; Start 02/09/19 at 22:00 Acetaminophen (Tylenol Tab) 650 mg Q4H PRN PO MILD PAIN(1-3)OR ELEVATED TEMP; Start 02/10/19 at 22:00 Ondansetron HCl (Zofran Inj) 4 mg Q6H PRN IV NAUSEA AND/OR VOMITING; Start 02/10/19 at 22:00 VERO ARELLANO Feb 12, 2019 13:46
--- NOTE | 2019-02-12 14:18 | PN ---
Date/Time of Note Date/Time of Note DATE: 02/12/19 TIME: 14:13 Assessment/Plan VTE Prophylaxis Risk score (from Nsg)>0 risk: 6 SCD applied (from Nsg): Yes Pharmacological prophylaxis: NA/contraindicated Pharm contraindication: anticoag not tolerated Lines/Catheters IV Catheter Type (from Nrsg): PICC Line Central line still needed: Yes Urinary Cath still in place: No Assessment/Plan Hospital Course Patient remains hemodynamically stable, afebrile. Patient's chronic pain is well controlled on current medication. Plan for vascular surgery by Dr. Sheppard tomorrow. Discussed with RN asked to call Dr. Sheppard in the afternoon to verify what time patient should be placed n.p.o for tomorrow surgery. Patient is cleared for vascular surgery by cardiology and internal medicine. Assessment/Plan -Chronic peripheral vascular disease, history of angioplasty x2. Dr. Sheppard is following in vascular surgery consultation. Plan for a right pop DP bypass. -Right heel necrotic wound. Dr. Mata is following in podiatry consultation. Status post debridement. Continue antibiotics per ID. Dr. Urbano is following in infection disease consultation. Will require total of 6 weeks of Vancomycin IV, Cefepime IV, and Flagyl IV through 02/22/19. 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 EUS and FNA as an outpatient to confirm GIST tumor diagnosis. Continue PPI. -New onset of anemia and hypotension requiring blood transfusion on 01/15/2019, stool for OB is negative. -Coronary artery disease, status post coronary artery bypass graft. -Cardiomyopathy with ejection fraction of 25%. Continue Coreg. Dr. Foster is following in cardiology consultation. -Status post AICD. -Hx of Hypertension. -Diabetes hemoglobin A1c 7.6. Continue Lantus and NovoLog. -Right knee contusion and abrasion status post fall. Status post evaluation by Dr. Zelaya and orthopedic surgery. No signs of fracture or dystrophic dislocation. -Chronic low back pain with significant spondylolisthesis grade II at the level of L5 to S1. Status post evaluation and pain management by Dr. Robertson and pain management consultation. Further recommendations based on clinical course. Plan of care discussed with Dr. Mann. Result Diagram: 02/08/19 0551 02/12/19 0548 Results 24hrs Laboratory Tests Test 02/11/19 17:36 02/11/19 20:56 02/12/19 01:44 02/12/19 05:48 Bedside Glucose 159 129 139 Blood Urea Nitrogen 18 Creatinine 0.60 L Test 02/12/19 07:53 02/12/19 11:49 Bedside Glucose 123 112 Exam/Review of Systems Exam Vitals Vital Signs Date Temp Pulse Resp B/P (MAP) Pulse Ox O2 O2 Flow FiO2 Time Delivery Rate 02/12/19 91 12:00 02/12/19 98.0 18 91/56 (68) 94 11:10 02/08/19 Room Air 19:53 Intake and Output 02/11/19 02/11/19 02/12/19 1515:00 23:00 07:00 IntakeIntake Total 600 ml 1000 ml OutputOutput Total 2000 ml BalanceBalance 600 ml -1000 ml Exam Constitutional: alert, oriented Respiratory: clear to auscultation Cardiovascular: regular rhythm and rate, AICD Gastrointestinal: soft, non-tender Extremities: normal pulses, other (Right heel wound) Right chest triple lumen catheter Results Results 24hrs Laboratory Tests Test 02/11/19 17:36 02/11/19 20:56 02/12/19 01:44 02/12/19 05:48 Bedside Glucose 159 129 139 Blood Urea Nitrogen 18 Creatinine 0.60 L Test 02/12/19 07:53 02/12/19 11:49 Bedside Glucose 123 112 Medications Medication Current Medications Amiodarone HCl (Cordarone) 200 mg DAILY PO Last administered on 02/12/19 08:48; Admin Dose 200 MG; Start 01/10/19 at 09:00 Digoxin (Digoxin) 0.125 mg DAILY@1300 PO Last administered on 02/12/19 12:31; Admin Dose 0.125 MG; Start 01/10/19 at 13:00 Gabapentin (Neurontin) 600 mg DAILY PO Last administered on 02/12/19 08:46; Admin Dose 600 MG; Start 01/10/19 at 09:00 Empaglifozin (Jardiance) 25 mg DAILY PO Last administered on 02/12/19 07:54; Admin Dose 25 MG; Start 01/10/19 at 09:00 Linagliptin (Tradjenta) 5 mg DAILY PO Last administered on 02/12/19 07:54; Admin Dose 5 MG; Start 01/10/19 at 09:00 Diagnostic Test (Pha) (Accu-Chek) 1 ea 02 XX Last administered on 02/12/19at 02:42; Admin Dose 1 EA; Start 01/10/19 at 02:00 Miscellaneous Information 1 ea NOTE XX ; Start 01/09/19 at 21:30 Glucose (Glutose) 15 gm Q15M PRN PO DECREASED GLUCOSE; Start 01/09/19 at 21:30 Glucose (Glutose) 22.5 gm Q15M PRN PO DECREASED GLUCOSE; Start 01/09/19 at 21:30 Dextrose (D50w Syringe) 50 ml Q15M PRN IV DECREASED GLUCOSE; Start 01/09/19 at 21:30 Glucagon (Glucagen) 1 mg Q15M PRN IM DECREASED GLUCOSE; Start 01/09/19 at 21:30 Glucose (Glutose) 15 gm Q15M PRN BUCCAL DECREASED GLUCOSE; Start 01/09/19 at 21:30 Insulin Glargine (Lantus) 18 units QHS SC Last administered on 02/11/19 21:19; Admin Dose 18 UNITS; Start 01/09/19 at 22:30 Carvedilol (Coreg) 3.125 mg BID PO Last administered on 02/12/19 08:48; Admin Dose 3.125 MG; Start 01/10/19 at 21:00 Vancomycin HCl (Vanco Iv Per Pharmacy) VANCOMYCIN PER PHARMACY PER PROTOCOL XX ; Start 01/11/19 at 02:30 Lisinopril (Zestril) 2.5 mg DAILY PO Last administered on 02/12/19 08:47; Admin Dose 2.5 MG; Start 01/13/19 at 09:00 Senna (Senokot) 1 tab DAILY PRN PO CONSTIPATION Last administered on 02/07/19at 14:26; Admin Dose 1 TAB; Start 01/12/19 at 18:30 Neomycin/ Polymyxin/ Bacitracin (Neosporin Topical Oint) 1 applic DAILY TOP Last administered on 02/12/19at 10:13; Admin Dose 1 APPLIC; Start 01/12/19 at 18:30 Cyanocobalamin (Vitamin B12 Inj) 1,000 mcg DAILY IM Last administered on 02/12/19 08:46; Admin Dose 1,000 MCG; Start 01/16/19 at 09:00 Pantoprazole (Protonix Tab) 40 mg DAILY@06 PO Last administered on 02/12/19 05:10; Admin Dose 40 MG; Start 01/17/19 at 06:00 Metronidazole 100 ml @ 100 mls/hr Q8 IVPB Last administered on 02/12/19 05:10; Admin Dose 100 MLS/HR; Start 01/16/19 at 22:00 Cefepime HCl 50 ml @ 100 mls/hr Q12 IVPB Last administered on 02/12/19 10:12; Admin Dose 100 MLS/HR; Start 01/17/19 at 21:00 Oxycodone HCl (Oxycontin) 10 mg BID PO Last administered on 02/12/19 10:12; Admin Dose 10 MG; Start 01/18/19 at 15:00 Vancomycin HCl 1.25 gm/Sodium Chloride 250 ml @ 83.333 mls/ hr Q12H IVPB Last administered on 02/12/19 12:31; Admin Dose 83.333 MLS/HR; Start 01/25/19 at 01:00 Insulin Aspart (Novolog Insulin Pen) NOVOLOG *MODERATE* ALGORITHM WITH MEALS BEDTIME SC Last administered on 02/11/19 17:48; Admin Dose 2 UNIT; Start 01/26/19 at 21:00 IV Flush (NS 10 ml) 10 ml PRN PRN IV IV PROTOCOL; Start 01/29/19 at 17:00 Hydromorphone HCl (Dilaudid) 1 mg Q4H PRN IV SEVERE PAIN LEVEL 7-10 Last administered on 02/12/19 14:03; Admin Dose 1 MG; Start 02/02/19 at 15:30 Docusate Sodium (Colace) 100 mg BID PO Last administered on 02/12/19 08:46; Admin Dose 100 MG; Start 02/07/19 at 21:00 Magnesium Hydroxide (Milk Of Mag) 30 ml BID PRN PO CONSTIPATION; Start 02/08/19 at 14:00 Miscellaneous Information (*Order Clarification Bulletin) MEDICATION REQUIRES CLARIFICATI... Q8H XX ; Start 02/09/19 at 09:30 Sodium Hypochlorite (Dakins Diluted (40)) 1 applic DAILY TP Last administered on 02/12/19 10:12; Admin Dose 1 APPLIC; Start 02/09/19 at 13:00 Miscellaneous Information 1 ea Q12 XX ; Start 02/09/19 at 22:00 Acetaminophen (Tylenol Tab) 650 mg Q4H PRN PO MILD PAIN(1-3)OR ELEVATED TEMP; Start 02/10/19 at 22:00 Ondansetron HCl (Zofran Inj) 4 mg Q6H PRN IV NAUSEA AND/OR VOMITING; Start 02/10/19 at 22:00 Furosemide (Lasix) 20 mg DAILY PO ; Start 02/13/19 at 09:00 RAMESH SOLORZANO Feb 12, 2019 14:18
--- NOTE | 2019-02-12 16:59 | EN ---
Date/Time of Note Date/Time of Note DATE: 02/12/19 TIME: 16:59 Event Note Medicine Medicine Event Note EMR reviewed. further eval with [facility] under my direction to follow. full note to follow shortly DENITA WOMACK MD Feb 12, 2019 16:59
--- NOTE | 2019-02-12 17:56 | PREAC ---
Date/Time of Note Date/Time of Note DATE: 02/12/19 TIME: 17:55 Anesthesia Eval and Record Evaluation Time Pre-Procedure Interview DATE: 02/12/19 TIME: 17:55 Age 63 Sex male NPO: 8 hrs Preoperative diagnosis Peripheral vascular disease Planned procedure RIGHT POPLITEAL TO DORSALIS PEDIS VEIN BYPASS Past Medical History Past Medical History: Includes Cardio: HTN, Dyslipidemia, CAD, CABG, Arrythmia, PPM/AICD, CHF, Other (Peripheral vascular disease) Endo: Diabetes GI: Obesity Surgery & Anesthesia Issues No known issue Meds Anticoagulation: No Beta Tasha within 24 hr: No Reason Beta Tasha not given: Pt. not on B-Tasha Reported Medications Amiodarone Hcl* (Amiodarone Hcl*) 200 Mg Tablet, 200 MG PO DAILY, #30 TAB 01/09/19 Digoxin* (Digitek*) 125 Mcg Tablet, 0.125 MG PO DAILY, TAB 01/09/19 Rivaroxaban* (Xarelto*) 20 Mg Tablet, 20 MG PO WITH DINNER, TAB 01/09/19 Clopidogrel Bisulfate* (Clopidogrel Bisulfate*) 75 Mg Tablet, 75 MG PO DAILY, #30 TAB 01/09/19 Empagliflozin (Jardiance) 25 Mg Tablet, 25 MG PO DAILY, TAB 01/09/19 Insulin Glargine,Hum.rec.anlog (Basaglar Kwikpen U-100) 100 Unit/1 Ml Insuln.pen, 18 UNIT SC QHS, EA 01/09/19 Sulfamethoxazole/Trimethoprim* (Bactrim Ds* Tablet) 1 Each Tablet, 1 TAB PO BID, TAB FOR 10 DAYS,START TAKING 01/06/19 01/09/19 Tapentadol Hcl (Nucynta) 100 Mg Tablet, 100 MG PO BID, TAB 01/09/19 Gabapentin* (Gabapentin*) 600 Mg Tablet, 600 MG PO DAILY, #60 TAB 01/09/19 Metformin Hcl* (Metformin Hcl*) 1,000 Mg Tablet, 1000 MG PO WITH BREAKFAST DINNE, #60 TAB 01/09/19 Current Medications Amiodarone HCl (Cordarone) 200 mg DAILY PO Last administered on 02/12/19at 08:48; Admin Dose 200 MG; Start 01/10/19 at 09:00 Digoxin (Digoxin) 0.125 mg DAILY@1300 PO Last administered on 02/12/19at 12:31; Admin Dose 0.125 MG; Start 01/10/19 at 13:00 Gabapentin (Neurontin) 600 mg DAILY PO Last administered on 02/12/19 08:46; Admin Dose 600 MG; Start 01/10/19 at 09:00 Empaglifozin (Jardiance) 25 mg DAILY PO Last administered on 02/12/19 07:54; Admin Dose 25 MG; Start 01/10/19 at 09:00 Linagliptin (Tradjenta) 5 mg DAILY PO Last administered on 02/12/19 07:54; Admin Dose 5 MG; Start 01/10/19 at 09:00 Diagnostic Test (Pha) (Accu-Chek) 1 ea 02 XX Last administered on 02/12/19 02:42; Admin Dose 1 EA; Start 01/10/19 at 02:00 Miscellaneous Information 1 ea NOTE XX ; Start 01/09/19 at 21:30 Glucose (Glutose) 15 gm Q15M PRN PO DECREASED GLUCOSE; Start 01/09/19 at 21:30 Glucose (Glutose) 22.5 gm Q15M PRN PO DECREASED GLUCOSE; Start 01/09/19 at 21:30 Dextrose (D50w Syringe) 50 ml Q15M PRN IV DECREASED GLUCOSE; Start 01/09/19 at 21:30 Glucagon (Glucagen) 1 mg Q15M PRN IM DECREASED GLUCOSE; Start 01/09/19 at 21:30 Glucose (Glutose) 15 gm Q15M PRN BUCCAL DECREASED GLUCOSE; Start 01/09/19 at 21:30 Insulin Glargine (Lantus) 18 units QHS SC Last administered on 02/11/19 21:19; Admin Dose 18 UNITS; Start 01/09/19 at 22:30 Carvedilol (Coreg) 3.125 mg BID PO Last administered on 02/12/19 08:48; Admin Dose 3.125 MG; Start 01/10/19 at 21:00 Vancomycin HCl (Vanco Iv Per Pharmacy) VANCOMYCIN PER PHARMACY PER PROTOCOL XX ; Start 01/11/19 at 02:30 Lisinopril (Zestril) 2.5 mg DAILY PO Last administered on 02/12/19 08:47; Admin Dose 2.5 MG; Start 01/13/19 at 09:00 Senna (Senokot) 1 tab DAILY PRN PO CONSTIPATION Last administered on 02/07/19 14:26; Admin Dose 1 TAB; Start 01/12/19 at 18:30 Neomycin/ Polymyxin/ Bacitracin (Neosporin Topical Oint) 1 applic DAILY TOP Last administered on 02/12/19 10:13; Admin Dose 1 APPLIC; Start 01/12/19 at 18:30 Cyanocobalamin (Vitamin B12 Inj) 1,000 mcg DAILY IM Last administered on 02/12/19 08:46; Admin Dose 1,000 MCG; Start 01/16/19 at 09:00 Pantoprazole (Protonix Tab) 40 mg DAILY@06 PO Last administered on 02/12/19 05:10; Admin Dose 40 MG; Start 01/17/19 at 06:00 Metronidazole 100 ml @ 100 mls/hr Q8 IVPB Last administered on 02/12/19 15:36; Admin Dose 100 MLS/HR; Start 01/16/19 at 22:00 Cefepime HCl 50 ml @ 100 mls/hr Q12 IVPB Last administered on 02/12/19 10:12; Admin Dose 100 MLS/HR; Start 01/17/19 at 21:00 Oxycodone HCl (Oxycontin) 10 mg BID PO Last administered on 02/12/19 10:12; Admin Dose 10 MG; Start 01/18/19 at 15:00 Vancomycin HCl 1.25 gm/Sodium Chloride 250 ml @ 83.333 mls/ hr Q12H IVPB Last administered on 02/12/19 12:31; Admin Dose 83.333 MLS/HR; Start 01/25/19 at 01:00 Insulin Aspart (Novolog Insulin Pen) NOVOLOG *MODERATE* ALGORITHM WITH MEALS BEDTIME SC Last administered on 02/11/19 17:48; Admin Dose 2 UNIT; Start 01/26/19 at 21:00 IV Flush (NS 10 ml) 10 ml PRN PRN IV IV PROTOCOL; Start 01/29/19 at 17:00 Hydromorphone HCl (Dilaudid) 1 mg Q4H PRN IV SEVERE PAIN LEVEL 7-10 Last administered on 02/12/19 14:03; Admin Dose 1 MG; Start 02/02/19 at 15:30 Docusate Sodium (Colace) 100 mg BID PO Last administered on 02/12/19at 08:46; Admin Dose 100 MG; Start 02/07/19 at 21:00 Magnesium Hydroxide (Milk Of Mag) 30 ml BID PRN PO CONSTIPATION; Start 02/08/19 at 14:00 Sodium Hypochlorite (Dakins Diluted (40)) 1 applic DAILY TP Last administered on 02/12/19at 10:12; Admin Dose 1 APPLIC; Start 02/09/19 at 13:00 Acetaminophen (Tylenol Tab) 650 mg Q4H PRN PO MILD PAIN(1-3)OR ELEVATED TEMP; Start 02/10/19 at 22:00 Ondansetron HCl (Zofran Inj) 4 mg Q6H PRN IV NAUSEA AND/OR VOMITING; Start 02/10/19 at 22:00 Furosemide (Lasix) 20 mg DAILY PO ; Start 02/13/19 at 09:00 Meds reviewed: Yes Allergies Coded Allergies: No Known Allergy (Unverified , 01/09/19) Allergies Reviewed: Yes Labs/Studies Labs Reviewed: Reviewed by anesthesiologist Result Diagram: 02/08/19 0551 02/12/19 0548 Laboratory Tests 02/12/19 05:48 test: N/A Studies: ECG, CXR, 2D Echo (EF 25%) Pre-procedure Exam Last vitals Vital Signs Date Temp Pulse Resp B/P (MAP) Pulse Ox O2 O2 Flow FiO2 Time Delivery Rate 02/12/19 65 16:00 02/12/19 97.9 18 110/66 99 15:30 (81) 02/08/19 Room Air 19:53 Airway: Adequate mouth opening Mallampati: Mallampati II Teeth: Normal Lung: Normal Heart: Normal ASA Physical Status ASA physical status: 3 Emergency: None Planned Anesthetic General/MAC: ETT Pre-operative Attestations Prior to commencing anesthesia and surgery, the patient was re-evaluated, there was verification of: *The patient's identity *The results of appropriate recent lab work and preoperative vital signs *The above evaluation not changing prior to induction *Anesthetic plan, risk benefits, alternative and complications discussed with patient/family; questions answered; patient/family understands, accepts and wishes to proceed. MATHEW FORREST Feb 12, 2019 17:56
--- NOTE | 2019-02-12 18:48 | CONS ---
Assessment/Plan Assessment/Plan Hospital Course (Demo Recall) - polymicrobial infection of non-healing ulcer of R heel. CT on 01/10/2019 did not show evidence of OM. ESR 26 on 01/09/2019 and 37 on 01/12/2019; superficial wound culture grew pseudomonas, E. Coli, enterococcus (isolated from broth only), scant proteus, and scant CoNS. ESR 23 and repeat culture on 02/06/2019 grew pseudomonas - s/p Debridement of the right calcaneal ulceration 01/13/2019; intraop culture grew E. Coli, Proteus, and Enterococcus - chronic wound of R heel, in the past the wound culture grew E. coli. repeat culture on 02/06/2019 grew pseudomonas - h/o OM of R foot, h/o 6 weeks of IV vancomycin and ceftriaxone in 2018. 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 and needs EUS with FNA to confirm the diagnosis - trauma to R knee - anemia requiring PRBC - PAF - CAD s/p CABG - HTN - CM with EF 25% - h/o AICD placement - PVD - h/o aortogram, RLE runoff and percutaneous angioplasty of the posterior tibial artery and the anterior tibial artery in 10/2018 - DM - Hgb A1c 7.6% - HLD associated with DM recommendations: - Pt's scheduled for RLE bypass surgery tomorrow, 02/13/2019. Consider debridement of devitalized tissue of R heel - we recommend 6 weeks of vancomycin iv (01/11/2019-), cefepime (restart 01/17/2019-), and metronidazole IV (01/16/2019-) through 02/22/19 - continue local wound care with topical antiseptic (Dakin's solution) - If Pt goes home, IV metronidazole may be replaced with PO metronidazole - please check weekly CBC BMP and ESR while Pt's on IV antibiotics Management discussed with Dr. Urbano Consultation Date/Type/Reason Admit Date/Time January 09, 2019 at 18:17 Initial Consult Date 01/16/19 Type of Consult Infectious Disease Requesting Provider: KRISTIN PRYOR MD Date/Time of Note DATE: 02/12/19 TIME: 18:45 24 HR Interval Summary Free Text/Dictation Chart reviewed. Remains afebrile with normal WBC. Subjective hx not possible: other (pt's non-verbal d/t sleeping soundly) Exam/Review of Systems Exam Vitals Vital Signs Date Temp Pulse Resp B/P (MAP) Pulse Ox O2 O2 Flow FiO2 Time Delivery Rate 02/12/19 65 16:00 02/12/19 97.9 18 110/66 99 15:30 (81) 02/08/19 Room Air 19:53 Intake and Output 02/11/19 02/11/19 02/12/19 1515:00 23:00 07:00 IntakeIntake Total 600 ml 1000 ml OutputOutput Total 2000 ml BalanceBalance 600 ml -1000 ml Exam Constitutional: well developed, other (sleeping on his R side in bed) Psych: other (unable to assess) Head: normocephalic, atraumatic Eyes: nl lids ENMT: nl external ears & nose, nl nasal mucosa & septum, mucosa pink and moist Neck: other (not swollen) Respiratory: clear to auscultation, normal air movement Cardiovascular: regular rate and rhythm, nl pulses Gastrointestinal: bowel sounds (normoactive) Musculoskeletal: swelling (R foot) Extremities: edema (trace RLE edema), other (R foot is wrapped with Kerlix c/d/i; photos in chart and nurses note reviewed) 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: other (deferred as pt is asleep) Skin: nl turgor, other (RUE PICC c/d/i; R heel is wrapped); No rash or lesions Results Result Diagram: 02/08/19 0551 02/12/19 0548 Results 24hrs Laboratory Tests Test 02/11/19 20:56 02/12/19 01:44 02/12/19 05:48 02/12/19 07:53 Bedside Glucose 129 139 123 Blood Urea Nitrogen 18 Creatinine 0.60 L Test 02/12/19 11:49 02/12/19 17:12 Bedside Glucose 112 122 Medications Medication Current Medications Amiodarone HCl (Cordarone) 200 mg DAILY PO Last administered on 02/12/19at 08:48; Admin Dose 200 MG; Start 01/10/19 at 09:00 Digoxin (Digoxin) 0.125 mg DAILY@1300 PO Last administered on 02/12/19at 12:31; Admin Dose 0.125 MG; Start 01/10/19 at 13:00 Gabapentin (Neurontin) 600 mg DAILY PO Last administered on 02/12/19 08:46; Admin Dose 600 MG; Start 01/10/19 at 09:00 Empaglifozin (Jardiance) 25 mg DAILY PO Last administered on 02/12/19 07:54; Ad min Dose 25 MG; Start 01/10/19 at 09:00 Linagliptin (Tradjenta) 5 mg DAILY PO Last administered on 02/12/19 07:54; Admin Dose 5 MG; Start 01/10/19 at 09:00 Diagnostic Test (Pha) (Accu-Chek) 1 ea 02 XX Last administered on 02/12/19 02:42; Admin Dose 1 EA; Start 01/10/19 at 02:00 Miscellaneous Information 1 ea NOTE XX ; Start 01/09/19 at 21:30 Glucose (Glutose) 15 gm Q15M PRN PO DECREASED GLUCOSE; Start 01/09/19 at 21:30 Glucose (Glutose) 22.5 gm Q15M PRN PO DECREASED GLUCOSE; Start 01/09/19 at 21:30 Dextrose (D50w Syringe) 50 ml Q15M PRN IV DECREASED GLUCOSE; Start 01/09/19 at 21:30 Glucagon (Glucagen) 1 mg Q15M PRN IM DECREASED GLUCOSE; Start 01/09/19 at 21:30 Glucose (Glutose) 15 gm Q15M PRN BUCCAL DECREASED GLUCOSE; Start 01/09/19 at 21:30 Insulin Glargine (Lantus) 18 units QHS SC Last administered on 02/11/19 21:19; Admin Dose 18 UNITS; Start 01/09/19 at 22:30 Carvedilol (Coreg) 3.125 mg BID PO Last administered on 02/12/19 08:48; Admin Dose 3.125 MG; Start 01/10/19 at 21:00 Vancomycin HCl (Vanco Iv Per Pharmacy) VANCOMYCIN PER PHARMACY PER PROTOCOL XX ; Start 01/11/19 at 02:30 Lisinopril (Zestril) 2.5 mg DAILY PO Last administered on 02/12/19 08:47; Admin Dose 2.5 MG; Start 01/13/19 at 09:00 Senna (Senokot) 1 tab DAILY PRN PO CONSTIPATION Last administered on 02/07/19 14:26; Admin Dose 1 TAB; Start 01/12/19 at 18:30 Neomycin/ Polymyxin/ Bacitracin (Neosporin Topical Oint) 1 applic DAILY TOP Last administered on 02/12/19 10:13; Admin Dose 1 APPLIC; Start 01/12/19 at 18:30 Cyanocobalamin (Vitamin B12 Inj) 1,000 mcg DAILY IM Last administered on 02/12/19 08:46; Admin Dose 1,000 MCG; Start 01/16/19 at 09:00 Pantoprazole (Protonix Tab) 40 mg DAILY@06 PO Last administered on 02/12/19 05:10; Admin Dose 40 MG; Start 01/17/19 at 06:00 Metronidazole 100 ml @ 100 mls/hr Q8 IVPB Last administered on 02/12/19 15:36; Admin Dose 100 MLS/HR; Start 01/16/19 at 22:00 Cefepime HCl 50 ml @ 100 mls/hr Q12 IVPB Last administered on 02/12/19 10:12; Admin Dose 100 MLS/HR; Start 01/17/19 at 21:00 Oxycodone HCl (Oxycontin) 10 mg BID PO Last administered on 02/12/19 10:12; Admin Dose 10 MG; Start 01/18/19 at 15:00 Vancomycin HCl 1.25 gm/Sodium Chloride 250 ml @ 83.333 mls/ hr Q12H IVPB Last administered on 02/12/19 12:31; Admin Dose 83.333 MLS/HR; Start 01/25/19 at 01:00 Insulin Aspart (Novolog Insulin Pen) NOVOLOG *MODERATE* ALGORITHM WITH MEALS BEDTIME SC Last administered on 02/11/19 17:48; Admin Dose 2 UNIT; Start 01/26/19 at 21:00 IV Flush (NS 10 ml) 10 ml PRN PRN IV IV PROTOCOL; Start 01/29/19 at 17:00 Hydromorphone HCl (Dilaudid) 1 mg Q4H PRN IV SEVERE PAIN LEVEL 7-10 Last administered on 02/12/19 18:10; Admin Dose 1 MG; Start 02/02/19 at 15:30 Docusate Sodium (Colace) 100 mg BID PO Last administered on 02/12/19 08:46; Admin Dose 100 MG; Start 6/1/19 at 21:00 Magnesium Hydroxide (Milk Of Mag) 30 ml BID PRN PO CONSTIPATION; Start 02/08/19 at 14:00 Sodium Hypochlorite (Dakins Diluted ()) 1 applic DAILY TP Last administered on 02/12/19at 10:12; Admin Dose 1 APPLIC; Start 02/09/19 at 13:00 Acetaminophen (Tylenol Tab) 650 mg Q4H PRN PO MILD PAIN(1-3)OR ELEVATED TEMP; Start 02/10/19 at 22:00 Ondansetron HCl (Zofran Inj) 4 mg Q6H PRN IV NAUSEA AND/OR VOMITING; Start 02/10/19 at 22:00 Furosemide (Lasix) 20 mg DAILY PO ; Start 02/13/19 at 09:00 LE HUTCHINS NP Feb 12, 2019 18:48
[2019-02-12] MEDS: INSULIN GLARGINE [LANTus] (100 UNITS/ML) SYG SC SCH (21:17)
[2019-02-13] VITALS (18 sets, daily range): BP systolic 105–173; BP diastolic 44–83; PULSE 62–93; RESP 15–34
[2019-02-13] MEDS: VANCOMYCIN HCL 1.25 GM in SOD CHLORIDE 0.9% 250 ML IVPB SCH ×2 (00:58→14:29)
[2019-02-13] MEDS: ACCU-CHEK XX SCH (02:00)
[2019-02-13] MEDS: HYDROmorphONE 1 MG/ML SYG IV PRN ×2 (02:04→12:41)
--- NOTE | 2019-02-13 05:28 | PN ---
Date/Time of Note Date/Time of Note DATE: 02/13/19 TIME: 05:28 Assessment/Plan VTE Prophylaxis Risk score (from Ns)>0 risk: 5 SCD applied (from Ns): No SCD contraindicated: other Pharmacological prophylaxis: other Pharm contraindication: other Lines/Catheters IV Catheter Type (from Nrsg): PICC Line Central line still needed: Yes Urinary Cath still in place: No Assessment/Plan Assessment/Plan -Chronic peripheral vascular disease, history of angioplasty x2. -Dr. Sheppard is following in vascular surgery consultation. -Plan for a right pop DP bypass. -Right heel necrotic wound. -Dr. Mata is following in podiatry consultation. Status post debridement. -Continue antibiotics per ID. Dr. Urbano is following in infection disease consultation. Will require total of 6 weeks of Vancomycin IV, Cefepime IV, and Flagyl IV through 02/22/19. 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 EUS and FNA as an outpatient to confirm GIST tumor diagnosis. Continue PPI. -New onset of anemia and hypotension requiring blood transfusion on 01/15/2019, stool for OB is negative. -Coronary artery disease, status post coronary artery bypass graft. -Cardiomyopathy with ejection fraction of 25%. Continue Coreg. Dr. Foster is following in cardiology consultation. -Status post AICD. -Hx of Hypertension. -Diabetes hemoglobin A1c 7.6. Continue Lantus and NovoLog. -Right knee contusion and abrasion status post fall. Status post evaluation by Dr. Zelaya and orthopedic surgery. No signs of fracture or dystrophic dislocation. -Chronic low back pain with significant spondylolisthesis grade II at the level of L5 to S1. Status post evaluation and pain management by Dr. Robertson and pain management consultation. Further recommendations based on clinical course. Plan of care discussed with Dr. Mann. Result Diagram: 02/12/19 0548 Results 24hrs Laboratory Tests Test 02/12/19 05:48 02/12/19 07:53 02/12/19 11:49 02/12/19 17:12 Blood Urea Nitrogen 18 Creatinine 0.60 L Bedside Glucose 123 112 122 Test 02/12/19 20:38 Bedside Glucose 160 Subjective 24 Hr Interval Summary Free Text/Dictation For RLE Bypass TODAY c/o back pain-stated muscle relaxant works better for him no events reported last night dw staff Eyes: no complaints ENT: no complaints Respiratory: no complaints Cardiovascular: no complaints Gastrointestinal: no complaints Genitourinary: no complaints Musculoskeletal: back pain Skin: no complaints Neurologic: no complaints Endocrine: no complaints Psychological: nl mood/affect Immunologic: no complaints Exam/Review of Systems Exam Vitals Vital Signs Date Temp Pulse Resp B/P (MAP) Pulse Ox O2 O2 Flow FiO2 Time Delivery Rate 02/13/19 97.9 62 17 105/65 100 04:44 (78) Intake and Output 02/12/19 02/12/19 02/13/19 1515:00 23:00 07:00 IntakeIntake Total 500 ml 900 ml OutputOutput Total 1950 ml BalanceBalance 500 ml -1050 ml Constitutional: alert, well developed, obese Psych: nl mood/affect Head: atraumatic Eyes: nl lids ENMT: nl external ears & nose Neck: non-tender Respiratory: clear to auscultation Cardiovascular: nl pulses, other (s1s2) Gastrointestinal: soft, non-tender Musculoskeletal: joint tenderness, range of motion Extremities: edema 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: nl mental status, nl speech Skin: other (right foot) Lymph: nontender Results Results 24hrs Laboratory Tests Test 02/12/19 05:48 02/12/19 07:53 02/12/19 11:49 02/12/19 17:12 Blood Urea Nitrogen 18 Creatinine 0.60 L Bedside Glucose 123 112 122 Test 02/12/19 20:38 Bedside Glucose 160 Medications Medication Current Medications Amiodarone HCl (Cordarone) 200 mg DAILY PO Last administered on 02/12/19 08:48; Admin Dose 200 MG; Start 01/10/19 at 09:00 Digoxin (Digoxin) 0.125 mg DAILY@1300 PO Last administered on 02/12/19 12:31; Admin Dose 0.125 MG; Start 01/10/19 at 13:00 Gabapentin (Neurontin) 600 mg DAILY PO Last administered on 02/12/19 08:46; Admin Dose 600 MG; Start 01/10/19 at 09:00 Empaglifozin (Jardiance) 25 mg DAILY PO Last administered on 02/12/19 07:54; Admin Dose 25 MG; Start 01/10/19 at 09:00 Linagliptin (Tradjenta) 5 mg DAILY PO Last administered on 02/12/19 07:54; Admin Dose 5 MG; Start 01/10/19 at 09:00 Diagnostic Test (Pha) (Accu-Chek) 1 ea 02 XX Last administered on 02/12/19 02:42; Admin Dose 1 EA; Start 01/10/19 at 02:00 Miscellaneous Information 1 ea NOTE XX ; Start 01/09/19 at 21:30 Glucose (Glutose) 15 gm Q15M PRN PO DECREASED GLUCOSE; Start 01/09/19 at 21:30 Glucose (Glutose) 22.5 gm Q15M PRN PO DECREASED GLUCOSE; Start 01/09/19 at 21:30 Dextrose (D50w Syringe) 50 ml Q15M PRN IV DECREASED GLUCOSE; Start 01/09/19 at 21:30 Glucagon (Glucagen) 1 mg Q15M PRN IM DECREASED GLUCOSE; Start 01/09/19 at 21:30 Glucose (Glutose) 15 gm Q15M PRN BUCCAL DECREASED GLUCOSE; Start 01/09/19 at 21:30 Insulin Glargine (Lantus) 18 units QHS SC Last administered on 02/12/19 21:17; Admin Dose 18 UNITS; Start 01/09/19 at 22:30 Carvedilol (Coreg) 3.125 mg BID PO Last administered on 02/12/19 08:48; Admin Dose 3.125 MG; Start 01/10/19 at 21:00 Vancomycin HCl (Vanco Iv Per Pharmacy) VANCOMYCIN PER PHARMACY PER PROTOCOL XX ; Start 01/11/19 at 02:30 Lisinopril (Zestril) 2.5 mg DAILY PO Last administered on 02/12/19 08:47; Admin Dose 2.5 MG; Start 01/13/19 at 09:00 Senna (Senokot) 1 tab DAILY PRN PO CONSTIPATION Last administered on 02/07/19 14:26; Admin Dose 1 TAB; Start 01/12/19 at 18:30 Neomycin/ Polymyxin/ Bacitracin (Neosporin Topical Oint) 1 applic DAILY TOP Last administered on 02/12/19 10:13; Admin Dose 1 APPLIC; Start 01/12/19 at 18:30 Cyanocobalamin (Vitamin B12 Inj) 1,000 mcg DAILY IM Last administered on 02/12/19 08:46; Admin Dose 1,000 MCG; Start 01/16/19 at 09:00 Pantoprazole (Protonix Tab) 40 mg DAILY@06 PO Last administered on 02/12/19 05:10; Admin Dose 40 MG; Start 01/17/19 at 06:00 Metronidazole 100 ml @ 100 mls/hr Q8 IVPB Last administered on 02/12/19 21:58; Admin Dose 100 MLS/HR; Start 01/16/19 at 22:00 Cefepime HCl 50 ml @ 100 mls/hr Q12 IVPB Last administered on 02/12/19 21:06; Admin Dose 100 MLS/HR; Start 01/17/19 at 21:00 Oxycodone HCl (Oxycontin) 10 mg BID PO Last administered on 02/12/19 21:10; Admin Dose 10 MG; Start 01/18/19 at 15:00 Vancomycin HCl 1.25 gm/Sodium Chloride 250 ml @ 83.333 mls/ hr Q12H IVPB Last administered on 02/13/19 00:58; Admin Dose 83.333 MLS/HR; Start 01/25/19 at 01:00 Insulin Aspart (Novolog Insulin Pen) NOVOLOG *MODERATE* ALGORITHM WITH MEALS BEDTIME SC Last administered on 02/11/19 17:48; Admin Dose 2 UNIT; Start 01/26/19 at 21:00 IV Flush (NS 10 ml) 10 ml PRN PRN IV IV PROTOCOL; Start 01/29/19 at 17:00 Hydromorphone HCl (Dilaudid) 1 mg Q4H PRN IV SEVERE PAIN LEVEL 7-10 Last administered on 02/13/19 02:04; Admin Dose 1 MG; Start 02/02/19 at 15:30 Docusate Sodium (Colace) 100 mg BID PO Last administered on 02/12/19 21:06; Admin Dose 100 MG; Start 02/07/19 at 21:00 Magnesium Hydroxide (Milk Of Mag) 30 ml BID PRN PO CONSTIPATION; Start 02/08/19 at 14:00 Sodium Hypochlorite (Dakins Diluted (/40)) 1 applic DAILY TP Last administered on 02/12/19 10:12; Admin Dose 1 APPLIC; Start 02/09/19 at 13:00 Acetaminophen (Tylenol Tab) 650 mg Q4H PRN PO MILD PAIN(1-3)OR ELEVATED TEMP; Start 02/10/19 at 22:00 Ondansetron HCl (Zofran Inj) 4 mg Q6H PRN IV NAUSEA AND/OR VOMITING; Start 02/10/19 at 22:00 Furosemide (Lasix) 20 mg DAILY PO ; Start 02/13/19 at 09:00 MARTINE PUENTES Feb 13, 2019 05:28
[2019-02-13] MEDS: metroNIDAZOLE 500 MG/NS (PMX) 100 ML IVPB SCH ×3 (05:56→21:11)
[2019-02-13] MEDS: PANTOPRAZOLE (EC) 40 MG TAB PO SCH (05:56)
--- NOTE | 2019-02-13 07:03 | HPN ---
Date/Time of Note Date/Time of Note DATE: 02/13/19 TIME: 07:03 Interval H&P Admission Note Pt. seen H&P reviewed: No system changes VERO MAHONEY MD Feb 13, 2019 07:03
[2019-02-13] MEDS: INSULIN ASPART [NOVOLOG] 3 ML PEN SC SCH ×4 (07:55→21:00)
[2019-02-13] MEDS ORDERED: MIDAZOLAM 1 MG/ML 2 ML INJ ONE (08:12)
[2019-02-13] MEDS ORDERED: PHENYLephrine 10 MG INJ ONE ×2 (08:52→10:56)
[2019-02-13] MEDS: CYCLOBENZAPRINE 10 MG TAB PO SCH ×2 (09:00→21:11)
[2019-02-13] MEDS: DAKINS 0.0125%(1/40) 473 ML SOLUTION TP SCH (09:00)
[2019-02-13] MEDS: LINAGLIPTIN 5 MG TABLET PO SCH (09:00)
[2019-02-13] MEDS: FUROSEMIDE 20 MG TAB PO SCH (09:00)
[2019-02-13] MEDS: GABAPENTIN 300 MG CAP PO SCH (09:00)
[2019-02-13] MEDS: NEOMYC/POLYMYX/BACIT 30 GM OINT TOP SCH (09:00)
[2019-02-13] MEDS: LISINOPRIL 5 MG TAB PO SCH (09:00)
[2019-02-13] MEDS: DOCUSATE SODIUM 100 MG CAP PO SCH ×2 (09:00→21:11)
[2019-02-13] MEDS: EMPAGLIFLOZIN 10 MG TABLET PO SCH (09:00)
[2019-02-13] MEDS: oxyCODONE (CR) 10 MG TAB [oxyCONTIN] PO SCH (09:00)
[2019-02-13] MEDS: CYANOCOBALAMIN 1000 MCG INJ IM SCH (09:00)
[2019-02-13] MEDS: CEFEPIME 2GM/50 ML (PMX) 50 ML IVPB SCH ×2 (09:00→21:09)
[2019-02-13] MEDS: AMIODARONE 200 MG TAB PO SCH (09:00)
[2019-02-13] MEDS ORDERED: THROMBIN 5000 UNIT VIAL ONE (09:33)
[2019-02-13] MEDS ORDERED: HEPARIN 1000 UNITS/ML 10 ML INJ ONE ×2 (09:33→10:51)
[2019-02-13] MEDS ORDERED: GELATIN SIZE 100 SPONGE ONE (09:33)
--- NOTE | 2019-02-13 11:52 | SIPON ---
Date/Time of Note Date/Time of Note DATE: 02/13/19 TIME: 11:50 Operative Report Preoperative Diagnosis R heel gangrene Postoperative Diagnosis same Operation/Procedure Performed R pop-DP bypass with non reversed GSV harvested from the thigh with endoscopic vein harvest Surgeon see signature line trust administrative assistant CHAYITO Pacheco Anesthesia: general Estimated blood loss: 50 - 100 ml's Transfusion Required none Specimen none Grafts/Implants none Complications none VERO MAHONEY MD Feb 13, 2019 11:51
[2019-02-13] MEDS ORDERED: ETOMIDATE 20 MG INJ ONE (12:00)
[2019-02-13] MEDS ORDERED: ROCURONIUM 50 MG INJ ONE (12:00)
[2019-02-13] MEDS ORDERED: LIDOCAINE 2% (SDV) 5 ML INJ ONE (12:00)
[2019-02-13] MEDS ORDERED: CEFAZOLIN 1 GM INJ ONE (12:00)
[2019-02-13] MEDS ORDERED: ONDANSETRON 4 MG INJ ONE (12:02)
--- NOTE | 2019-02-13 12:33 | PAC ---
Date/Time of Note Date/Time of Note DATE: 02/13/19 TIME: 12:32 Post-Anesthesia Notes Post-Anesthesia Note Last documented vital signs Vital Signs Date Temp Pulse Resp B/P (MAP) Pulse Ox O2 O2 Flow FiO2 Time Delivery Rate 02/13/19 89 108/64 06:01 (79) 02/13/19 97.9 17 100 04:44 Activity: WNL Respiratory function: WNL Cardiovascular function: WNL Mental status: Baseline Pain reasonably controlled: Yes Hydration appropriate: Yes Nausea/Vomiting absent: Yes Comments BP:134/67, P:86, Spo2:100%, T:98,9 BLAINE LÓPEZ MD Feb 13, 2019 12:33
[2019-02-13] MEDS ORDERED: HYDROmorphONE 1 MG/5 ML IV SYRINGE IV PRN ×2 (13:00)
[2019-02-13] MEDS ORDERED: hydrALAzine 20 MG INJ IV PRN (13:00)
[2019-02-13] MEDS ORDERED: DIPHENHYDRAMINE 50 MG INJ IV PRN (13:00)
[2019-02-13] MEDS ORDERED: MEPERIDINE 25 MG INJ IV PRN (13:00)
[2019-02-13] MEDS ORDERED: morphine 2 MG INJ IV PRN ×2 (13:00)
[2019-02-13] MEDS ORDERED: LABETALOL HCL 20MG INJ IV PRN (13:00)
--- NOTE | 2019-02-13 13:38 | CONS ---
Assessment/Plan Assessment/Plan Hospital Course (Demo Recall) - s/p R pop-DP bypass with non reversed GSV harvested from the thigh with endoscopic vein harvest 02/13/2019 - polymicrobial infection of non-healing ulcer of R heel. CT on 01/10/2019 did not show evidence of OM. ESR 26 on 01/09/2019 and 37 on 01/12/2019; superficial wound culture grew pseudomonas, E. Coli, enterococcus (isolated from broth only), scant proteus, and scant CoNS. ESR 23 and repeat culture on 02/06/2019 grew pseudomonas - s/p Debridement of the right calcaneal ulceration 01/13/2019; intraop culture grew E. Coli, Proteus, and Enterococcus - chronic wound of R heel, in the past the wound culture grew E. coli. repeat culture on 02/06/2019 grew pseudomonas - h/o OM of R foot, h/o 6 weeks of IV vancomycin and ceftriaxone in 2018. 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 and needs EUS with FNA to confirm the diagnosis - trauma to R knee - anemia requiring PRBC - PAF - CAD s/p CABG - HTN - CM with EF 25% - h/o AICD placement - PVD - h/o aortogram, RLE runoff and percutaneous angioplasty of the posterior tibial artery and the anterior tibial artery in 10/2018 - DM - Hgb A1c 7.6% - HLD associated with DM Recommendations: - continue 6 weeks of vancomycin iv (01/11/2019-), cefepime (restart 01/17/2019-), and metronidazole IV (01/16/2019-) through 02/22/19 - continue local wound care with topical antiseptic (Dakin's solution) - please check weekly CBC BMP and ESR while Pt's on IV antibiotics Management discussed with patient, FLATLOCK SEWING MACHINE OPERATOR Helen, and with Dr. Urbano Total critical care time spent: 35 min Consultation Date/Type/Reason Admit Date/Time January 09, 2019 at 18:17 Initial Consult Date 01/16/19 Type of Consult Infectious Disease Requesting Provider: KRISTIN PRYOR MD Date/Time of Note DATE: 02/13/19 TIME: 13:34 24 HR Interval Summary Free Text/Dictation S/p R pop-DP bypass and pt transferred to ICU for postop care per d/w FLATLOCK SEWING MACHINE OPERATOR. Pt c/o severe pain r/t surgery and LLE sciatica pain rating 10/10. States RLE is "tender" and LLE is "constant". "They (BLE) both hurt". Denies SOB, n/v/d, dysuria. Exam/Review of Systems Exam Vitals Vital Signs Date Temp Pulse Resp B/P (MAP) Pulse Ox O2 O2 Flow FiO2 Time Delivery Rate 02/13/19 93 12:30 02/13/19 108/64 06:01 (79) 02/13/19 97.9 17 100 04:44 Intake and Output 02/12/19 02/12/19 02/13/19 1515:00 23:00 07:00 IntakeIntake Total 500 ml 900 ml 500 ml OutputOutput Total 1950 ml 1250 ml BalanceBalance 500 ml -1050 ml -750 ml Constitutional: alert, oriented, well developed, distress (mild), frail, obese, other (grimacing and asking for pain med) Head: normocephalic, atraumatic Eyes: nl conjunctiva, nl lids, nl sclera ENMT: nl external ears & nose, nl nasal mucosa & septum Neck: supple Respiratory: clear to auscultation, normal air movement, other (On O2 at 8L via FM) Cardiovascular: regular rate and rhythm Gastrointestinal: soft, non-tender Genitourinary - Male: other (Avelar in place with clear yellow urine) Extremities: tenderness (RLE), other (L radial A-line in place) 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: nl mental status, nl speech Skin: nl turgor, other (RLE with dressing c/d/i) Results Result Diagram: 02/13/19 0708 02/13/19 0708 Results 24hrs Laboratory Tests Test 02/12/19 17:12 02/12/19 20:38 02/13/19 06:14 02/13/19 07:08 Bedside Glucose 122 160 121 White Blood Count 6.8 Red Blood Count 4.07 L Hemoglobin 11.5 L Hematocrit 37.1 L Mean Corpuscular Volume 91.2 Mean Corpuscular 28.3 L Hemoglobin Mean Corpuscular 31.0 L Hemoglobin Concent Red Cell Distribution 15.3 H Width Platelet Count 252 Mean Platelet Volume 10.9 H Immature Granulocytes % 0.100 Neutrophils % 56.8 Lymphocytes % 24.7 Monocytes % 13.2 H Eosinophils % 4.6 Basophils % 0.6 Nucleated Red Blood 0.0 Cells % Immature Granulocytes # 0.010 Neutrophils # 3.8 Lymphocytes # 1.7 Monocytes # 0.9 Eosinophils # 0.3 Basophils # 0.0 Nucleated Red Blood 0.0 Cells # Prothrombin Time 13.3 Prothrombin Time Ratio 1.0 INR International 1.00 Normalized Ratio Activated 29.2 Partial Thromboplast Time Thrombin Time 16.4 Sodium Level 139 Potassium Level 4.2 Chloride Level 104 Carbon Dioxide Level 30 Anion Gap 5 Blood Urea Nitrogen 15 Creatinine 0.61 Est Glomerular Filtrat > 60 Rate mL/min Glucose Level 119 Calcium Level 9.1 Medications Medication Current Medications Amiodarone HCl (Cordarone) 200 mg DAILY PO Last administered on 02/12/19 08:48; Admin Dose 200 MG; Start 01/10/19 at 09:00 Digoxin (Digoxin) 0.125 mg DAILY@1300 PO Last administered on 02/12/19 12:31; Admin Dose 0.125 MG; Start 01/10/19 at 13:00 Gabapentin (Neurontin) 600 mg DAILY PO Last administered on 02/12/19 08:46; Admin Dose 600 MG; Start 01/10/19 at 09:00 Empaglifozin (Jardiance) 25 mg DAILY PO Last administered on 02/12/19 07:54; Admin Dose 25 MG; Start 01/10/19 at 09:00 Linagliptin (Tradjenta) 5 mg DAILY PO Last administered on 02/12/19 07:54; Admin Dose 5 MG; Start 01/10/19 at 09:00 Diagnostic Test (Pha) (Accu-Chek) 1 ea 02 XX Last administered on 02/12/19 02:42; Admin Dose 1 EA; Start 01/10/19 at 02:00 Miscellaneous Information 1 ea NOTE XX ; Start 01/09/19 at 21:30 Glucose (Glutose) 15 gm Q15M PRN PO DECREASED GLUCOSE; Start 01/09/19 at 21:30 Glucose (Glutose) 22.5 gm Q15M PRN PO DECREASED GLUCOSE; Start 01/09/19 at 21:30 Dextrose (D50w Syringe) 50 ml Q15M PRN IV DECREASED GLUCOSE; Start 01/09/19 at 21:30 Glucagon (Glucagen) 1 mg Q15M PRN IM DECREASED GLUCOSE; Start 01/09/19 at 21:30 Glucose (Glutose) 15 gm Q15M PRN BUCCAL DECREASED GLUCOSE; Start 01/09/19 at 21:30 Insulin Glargine (Lantus) 18 units QHS SC Last administered on 02/12/19 21:17; Admin Dose 18 UNITS; Start 01/09/19 at 22:30 Carvedilol (Coreg) 3.125 mg BID PO Last administered on 02/12/19 08:48; Admin Dose 3.125 MG; Start 01/10/19 at 21:00 Vancomycin HCl (Vanco Iv Per Pharmacy) VANCOMYCIN PER PHARMACY PER PROTOCOL XX ; Start 01/11/19 at 02:30 Lisinopril (Zestril) 2.5 mg DAILY PO Last administered on 02/12/19 08:47; Admin Dose 2.5 MG; Start 01/13/19 at 09:00 Senna (Senokot) 1 tab DAILY PRN PO CONSTIPATION Last administered on 02/07/19 14:26; Admin Dose 1 TAB; Start 01/12/19 at 18:30 Neomycin/ Polymyxin/ Bacitracin (Neosporin Topical Oint) 1 applic DAILY TOP Last administered on 02/12/19 10:13; Admin Dose 1 APPLIC; Start 01/12/19 at 18:30 Cyanocobalamin (Vitamin B12 Inj) 1,000 mcg DAILY IM Last administered on 02/12/19 08:46; Admin Dose 1,000 MCG; Start 01/16/19 at 09:00 Pantoprazole (Protonix Tab) 40 mg DAILY@06 PO Last administered on 02/13/19 05:56; Admin Dose 40 MG; Start 01/17/19 at 06:00 Metronidazole 100 ml @ 100 mls/hr Q8 IVPB Last administered on 02/13/19 05:56; Admin Dose 100 MLS/HR; Start 01/16/19 at 22:00 Cefepime HCl 50 ml @ 100 mls/hr Q12 IVPB Last administered on 02/12/19 21:06; Admin Dose 100 MLS/HR; Start 01/17/19 at 21:00 Oxycodone HCl (Oxycontin) 10 mg BID PO Last administered on 6/6/19at 21:10; Admin Dose 10 MG; Start 01/18/19 at 15:00 Vancomycin HCl 1.25 gm/Sodium Chloride 250 ml @ 83.333 mls/ hr Q12H IVPB Last administered on 02/13/19 00:58; Admin Dose 83.333 MLS/HR; Start 01/25/19 at 0 1:00 Insulin Aspart (Novolog Insulin Pen) NOVOLOG *MODERATE* ALGORITHM WITH MEALS BEDTIME SC Last administered on 02/11/19 17:48; Admin Dose 2 UNIT; Start 01/26/19 at 21:00 IV Flush (NS 10 ml) 10 ml PRN PRN IV IV PROTOCOL; Start 01/29/19 at 17:00 Hydromorphone HCl (Dilaudid) 1 mg Q4H PRN IV SEVERE PAIN LEVEL 7-10 Last administered on 02/13/19 12:41; Admin Dose 1 MG; Start 02/02/19 at 15:30 Docusate Sodium (Colace) 100 mg BID PO Last administered on 02/12/19 21:06; Admin Dose 100 MG; Start 02/07/19 at 21:00 Magnesium Hydroxide (Milk Of Mag) 30 ml BID PRN PO CONSTIPATION; Start 02/08/19 at 14:00 Sodium Hypochlorite (Dakins Diluted (40)) 1 applic DAILY TP Last administered on 02/12/19at 10:12; Admin Dose 1 APPLIC; Start 02/09/19 at 13:00 Acetaminophen (Tylenol Tab) 650 mg Q4H PRN PO MILD PAIN(1-3)OR ELEVATED TEMP; Start 02/10/19 at 22:00 Ondansetron HCl (Zofran Inj) 4 mg Q6H PRN IV NAUSEA AND/OR VOMITING; Start 02/10/19 at 22:00 Furosemide (Lasix) 20 mg DAILY PO ; Start 02/13/19 at 09:00 Cyclobenzaprine HCl (Flexeril) 5 mg BID PO ; Start 02/13/19 at 09:00 Morphine Sulfate (morphine) 2 mg PACU PRN IV PAIN LEVEL 1-3; Start 02/13/19 at 13:00; Stop 02/13/19 at 16:00 Morphine Sulfate (morphine) 4 mg PACU PRN IV PAIN LEVEL 4-6; Start 02/13/19 at 13:00; Stop 02/13/19 at 16:00 Hydromorphone HCl (Dilaudid) 0.2 mg PACU PRN IV MILD PAIN 1-3; Start 02/13/19 at 13:00; Stop 02/13/19 at 16:00 Hydromorphone HCl (Dilaudid) 0.4 mg PACU PRN IV MOD PAIN 4-6; Start 02/13/19 at 13:00; Stop 02/13/19 at 16:00 Labetalol HCl (Labetalol) 5 mg PACU ORDER PRN IV HIGH BLOOD PRESSURE; Start 02/13/19 at 13:00; Stop 02/13/19 at 16:00 Hydralazine HCl (Apresoline) 5 mg PACU ORDER PRN IV HIGH BLOOD PRESSURE; Start 02/13/19 at 13:00; Stop 02/13/19 at 16:00 Meperidine HCl (Demerol) 25 mg PACU ORDER PRN IV .RIGORS; Start 02/13/19 at 13:00; Stop 02/13/19 at 16:00 Diphenhydramine HCl (Benadryl) 25 mg PACU ORDER PRN IV .PRURITUS; Start 02/13/19 at 13:00; Stop 02/13/19 at 16:00 Heparin Sodium (Porcine) 250 ml @ 5 mls/hr IV IV ; Start 02/13/19 at 14:00; Status LE CORCORAN NP Feb 13, 2019 13:38
[2019-02-13] MEDS ORDERED: HEPARIN 25000 UNITS/250 ML 250 ML IV SCH (14:00)
[2019-02-13] MEDS: DIGOXIN 0.125 MG TAB PO SCH (14:19)
[2019-02-13] MEDS ORDERED: HYDROmorphONE 1 MG/ML SYG IV PRN ×2 (14:43→15:00)
--- NOTE | 2019-02-13 14:45 | OPR ---
DATE OF OPERATION: 02/13/2019 PREOPERATIVE DIAGNOSIS: Right heel gangrene. POSTOPERATIVE DIAGNOSIS: Right heel gangrene. PROCEDURE PERFORMED: Right popliteal artery to dorsalis pedis artery bypass using nonreversed greater saphenous vein harvested from the thigh using endoscopic vein harvest system. SURGEON: Vero Sheppard MD FRONT WORKER: CHAYITO Jimenez ESTIMATED BLOOD LOSS: 100 mL. COMPLICATIONS: There were no intraprocedural complications. INDICATIONS: This is a 63-year-old gentleman, diabetic, hypertensive, has coronary artery disease, has cardiomyopathy, has pretty severe peripheral arterial disease, had gangrene of the right heel for closer a year. I have angioplastied his anterior tibial artery twice and posterior tibial artery once. He has had recurrent restenosis and really no significant healing of the heel wound, so I brought him in today for a pop to DP bypass. His posterior tibial artery is occluded at the ankle. It does not go into the foot and there are no plantar vessels. Dorsalis pedis is the only vessel going into the foot. On angiography, he has good popliteal artery and good great saphenous vein. PROCEDURE IN DETAILS: The patient was brought to the operating room and placed on the table in supine position. After induction of general endotracheal anesthesia, the right leg was prepped and draped in the usual sterile fashion. I used ultrasound to map out the great saphenous vein. It was within the fascia down to the distal thigh then it was out of the fascia and all the way down the rest of the way, so I decided to harvest the vein endoscopically in the thigh that was patent. The patient was prepped and draped in the usual sterile fashion. Deidra Christian used the endoscopic vein harvest system to harvest the great saphenous vein from the thigh down to about the knee level. I made an incision over the dorsalis pedis artery on the dorsum of the foot and exposed the dorsalis pedis. It was very, very small, but patent and soft and easily clampable. We then proceeded. Once we harvested the vein from the thigh using endoscopic vein harvest system, all the side branches have been burned. We went back and tied those off with 3-0 silk ties. I then made an incision down to about the mid calf over the great saphenous vein. It was a tributary branch. It was out of the fascia at this level, but it was a good caliber and I dissected all the way down to the mid calf, ligated all the side branches, 2-0 silk ties and divided them. Once I got the vein, I just ligated it with 2-0 silk tie and transected it. It flushed easily. There was quite good flow through the vein with good caliber. We went back and any side branches that we missed were tied off again with 2-0 silk ties and then cut the fascia overlying the medial calf muscles and into the popliteal space. I dissected the popliteal vein away from the artery and dissected out several centimeter segment of popliteal artery. It was soft and healthy and no disease, easily clampable. I then advanced a Delores tunneler from below and left it in the tract. I gave the patient 8000 units of heparin intravenously. I then began with the arterial proximal anastomosis. I clamped the popliteal artery proximally and distally. I made about a cm long anterior arteriotomy. I then used the upper end of the vein. I cut the first valve under direct vision. I then spatulated the upper end of the vein to fit the arteriotomy and then anastomosed the end of the vein to the side of the artery using 6-0 Prolene suture in a running standard vascular surgical fashion. I then flushed and removed the clamps and I put one suture. It is a repair stitch. He has some bleeding from the heel. There was good hemostasis. I then passed a valvulotome twice from below and cut all the valves. There was excellent flow through the graft. I then brought the graft through the tunnel. I had Delores tunneler in place. I just brought it through and removed the tunneler. I then clamped the graft at the knee, then proceeded to clamp the dorsalis pedis proximally and distally using very small bulldogs. There is about a 1.5 mm vessel. It was very small. I then made an anterior arteriotomy about 1 cm in length. I spatulated the distal end of the vein to fit the arteriotomy and then anastomosed the distal end of the vein to the side of the artery, again using 6-0 Prolene in standard vascular surgical fashion. I removed the clamps. There was good hemostasis. I listened with a Doppler. There is a very nice triphasic Doppler signal in the small but patent distal dorsalis pedis artery. I actually feel a pulse in the artery too. There at this point was good hemostasis. I closed all the skin incisions in 2 layers. I closed the dorsal foot incision with interrupted 3-0 nylon vertical mattress sutures. The other incisions were closed with 3-0 Vicryl subcutaneous and surgical teressa for the skin. Sterile dressing was applied. The patient was then extubated in the operating room and transferred to the ICU in stable condition. He tolerated the procedure well without any complications. Dictated By: VERO TAYLOR/DEXTER Conf#: [id number] DID#: [id number] CC: KRISTIN PRYOR MD; LIANA MANRIQUEZ DPM; KIM ODELL MD;*EndCC* MTDD
--- NOTE | 2019-02-13 15:21 | CONS ---
Assessment/Plan Assessment/Plan Hospital Course (Demo Recall) IMP: 1.Pre-op for peripheral bypass surgery. Lexiscan with no ischemia/+scar EF 28%. Echo EF 25%. OK to proceed to surgery at moderate CV risk. Now POD#0 s/p R POP- DP peripheral bypass 2.Cardiomyopathy with low EF-severely depressed by echo this admit 3.Hoth-borderline today 4.HL 5.Non-healing LE ulcer 6.PAD-severe s/p prior [employer]. Now POD#0 s/p POP to DP r side 7.DM 8. 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 Recc: -IN ICU immediately s/p surgery -Continue digoxin -Resume coreg and zestril as tolerated only for treatment of cardiomyopathy -Resume amiodarone -Continue abx's and f/u cx data -local wound care -further outpatient eval of likely GIST tumor -Contine lasix po daily and follow volume status clsoely -pain control -continue heparin Consultation Date/Type/Reason Admit Date/Time January 09, 2019 at 18:17 Initial Consult Date 01/10/19 Type of Consult Cardiology Reason for Consultation preop/cardiomyopathy Requesting Provider: KRISTIN PRYOR MD Date/Time of Note DATE: 02/13/19 TIME: 15:18 Exam/Review of Systems Vital Signs Vitals Vital Signs Date Temp Pulse Resp B/P (MAP) Pulse Ox O2 O2 Flow FiO2 Time Delivery Rate 02/13/19 98.6 13:39 02/13/19 93 12:30 02/13/19 108/64 06:01 (79) 02/13/19 17 100 04:44 Intake and Output 02/12/19 02/12/19 02/13/19 1515:00 23:00 07:00 IntakeIntake Total 500 ml 900 ml 500 ml OutputOutput Total 1950 ml 1250 ml BalanceBalance 500 ml -1050 ml -750 ml Exam Exam Review of Systems: CONSTITUTIONAL: No fevers, chills. PULMONARY: No sob CARDIOVASCULAR: No chest pain/palpitations GASTROINTESTINAL: No nausea/vomiting. GENITOURINARY: No hematuria/dysuria. MUSCULOSKELETAL: pain in leg s/p surgery PSYCHIATRIC: The patient denies depression. NEUROLOGIC: No weakness Constitutional: alert, oriented Psych: no complaints Head: normocephalic ENMT: mucosa pink and moist Neck: supple, jvd (9 cm water) Respiratory: diminished breath sounds (at bases/B) Cardiovascular: regular rate and rhythm Gastrointestinal: soft, non-tender Musculoskeletal: muscle tone (normal) Extremities: edema (trace/B) Labs Result Diagram: 02/13/19 0708 02/13/19 0708 Results 24hrs Laboratory Tests Test 02/12/19 17:12 02/12/19 20:38 02/13/19 06:14 02/13/19 07:08 Bedside Glucose 122 160 121 White Blood Count 6.8 Red Blood Count 4.07 L Hemoglobin 11.5 L Hematocrit 37.1 L Mean Corpuscular Volume 91.2 Mean Corpuscular 28.3 L Hemoglobin Mean Corpuscular 31.0 L Hemoglobin Concent Red Cell Distribution 15.3 H Width Platelet Count 252 Mean Platelet Volume 10.9 H Immature Granulocytes % 0.100 Neutrophils % 56.8 Lymphocytes % 24.7 Monocytes % 13.2 H Eosinophils % 4.6 Basophils % 0.6 Nucleated Red Blood 0.0 Cells % Immature Granulocytes # 0.010 Neutrophils # 3.8 Lymphocytes # 1.7 Monocytes # 0.9 Eosinophils # 0.3 Basophils # 0.0 Nucleated Red Blood 0.0 Cells # Prothrombin Time 13.3 Prothrombin Time Ratio 1.0 INR International 1.00 Normalized Ratio Activated 29.2 Partial Thromboplast Time Thrombin Time 16.4 Sodium Level 139 Potassium Level 4.2 Chloride Level 104 Carbon Dioxide Level 30 Anion Gap 5 Blood Urea Nitrogen 15 Creatinine 0.61 Est Glomerular Filtrat > 60 Rate mL/min Glucose Level 119 Calcium Level 9.1 Test 02/13/19 14:33 Bedside Glucose 135 Medications Medications Current Medications Amiodarone HCl (Cordarone) 200 mg DAILY PO Last administered on 02/12/19at 08:48; Admin Dose 200 MG; Start 01/10/19 at 09:00 Digoxin (Digoxin) 0.125 mg DAILY@1300 PO Last administered on 02/13/19at 14:19; Admin Dose 0.125 MG; Start 01/10/19 at 13:00 Gabapentin (Neurontin) 600 mg DAILY PO Last administered on 02/12/19at 08:46; Admin Dose 600 MG; Start 01/10/19 at 09:00 Empaglifozin (Jardiance) 25 mg DAILY PO Last administered on 02/12/19 07:54; Admin Dose 25 MG; Start 01/10/19 at 09:00 Linagliptin (Tradjenta) 5 mg DAILY PO Last administered on 02/12/19 07:54; Admin Dose 5 MG; Start 01/10/19 at 09:00 Diagnostic Test (Pha) (Accu-Chek) 1 ea 02 XX Last administered on 02/12/19 02:42; Admin Dose 1 EA; Start 01/10/19 at 02:00 Miscellaneous Information 1 ea NOTE XX ; Start 01/09/19 at 21:30 Glucose (Glutose) 15 gm Q15M PRN PO DECREASED GLUCOSE; Start 01/09/19 at 21:30 Glucose (Glutose) 22.5 gm Q15M PRN PO DECREASED GLUCOSE; Start 01/09/19 at 21:30 Dextrose (D50w Syringe) 50 ml Q15M PRN IV DECREASED GLUCOSE; Start 01/09/19 at 21:30 Glucagon (Glucagen) 1 mg Q15M PRN IM DECREASED GLUCOSE; Start 01/09/19 at 21:30 Glucose (Glutose) 15 gm Q15M PRN BUCCAL DECREASED GLUCOSE; Start 01/09/19 at 21:30 Insulin Glargine (Lantus) 18 units QHS SC Last administered on 02/12/19 21:17; Admin Dose 18 UNITS; Start 01/09/19 at 22:30 Carvedilol (Coreg) 3.125 mg BID PO Last administered on 02/12/19 08:48; Admin Dose 3.125 MG; Start 01/10/19 at 21:00 Vancomycin HCl (Vanco Iv Per Pharmacy) VANCOMYCIN PER PHARMACY PER PROTOCOL XX ; Start 01/11/19 at 02:30 Lisinopril (Zestril) 2.5 mg DAILY PO Last administered on 02/12/19 08:47; Admin Dose 2.5 MG; Start 01/13/19 at 09:00 Senna (Senokot) 1 tab DAILY PRN PO CONSTIPATION Last administered on 02/07/19 14:26; Admin Dose 1 TAB; Start 01/12/19 at 18:30 Neomycin/ Polymyxin/ Bacitracin (Neosporin Topical Oint) 1 applic DAILY TOP Last administered on 02/12/19 10:13; Admin Dose 1 APPLIC; Start 01/12/19 at 18:30 Cyanocobalamin (Vitamin B12 Inj) 1,000 mcg DAILY IM Last administered on 02/12/19 08:46; Admin Dose 1,000 MCG; Start 01/16/19 at 09:00 Pantoprazole (Protonix Tab) 40 mg DAILY@06 PO Last administered on 02/13/19 05:56; Admin Dose 40 MG; Start 01/17/19 at 06:00 Metronidazole 100 ml @ 100 mls/hr Q8 IVPB Last administered on 02/13/19 14:19; Admin Dose 100 MLS/HR; Start 01/16/19 at 22:00 Cefepime HCl 50 ml @ 100 mls/hr Q12 IVPB Last administered on 02/12/19 21:06; Admin Dose 100 MLS/HR; Start 01/17/19 at 21:00 Oxycodone HCl (Oxycontin) 10 mg BID PO Last administered on 02/12/19 21:10; Admin Dose 10 MG; Start 01/18/19 at 15:00 Vancomycin HCl 1.25 gm/Sodium Chloride 250 ml @ 83.333 mls/ hr Q12H IVPB Last administered on 02/13/19 14:29; Admin Dose 83.333 MLS/HR; Start 01/25/19 at 01:00 Insulin Aspart (Novolog Insulin Pen) NOVOLOG *MODERATE* ALGORITHM WITH MEALS BEDTIME SC Last administered on 02/11/19 17:48; Admin Dose 2 UNIT; Start 01/26/19 at 21:00 IV Flush (NS 10 ml) 10 ml PRN PRN IV IV PROTOCOL; Start 01/29/19 at 17:00 Hydromorphone HCl (Dilaudid) 1 mg Q4H PRN IV SEVERE PAIN LEVEL 7-10 Last administered on 02/13/19 12:41; Admin Dose 1 MG; Start 02/02/19 at 15:30 Docusate Sodium (Colace) 100 mg BID PO Last administered on 02/12/19 21:06; Admin Dose 100 MG; Start 02/07/19 at 21:00 Magnesium Hydroxide (Milk Of Mag) 30 ml BID PRN PO CONSTIPATION; Start 02/08/19 at 14:00 Sodium Hypochlorite (Dakins Diluted ()) 1 applic DAILY TP Last administered on 02/12/19at 10:12; Admin Dose 1 APPLIC; Start 02/09/19 at 13:00 Acetaminophen (Tylenol Tab) 650 mg Q4H PRN PO MILD PAIN(1-3)OR ELEVATED TEMP; Start 02/10/19 at 22:00 Ondansetron HCl (Zofran Inj) 4 mg Q6H PRN IV NAUSEA AND/OR VOMITING; Start 02/10/19 at 22:00 Furosemide (Lasix) 20 mg DAILY PO ; Start 02/13/19 at 09:00 Cyclobenzaprine HCl (Flexeril) 5 mg BID PO ; Start 02/13/19 at 09:00 Morphine Sulfate (morphine) 2 mg PACU PRN IV PAIN LEVEL 1-3; Start 02/13/19 at 13:00; Stop 02/13/19 at 16:00 Morphine Sulfate (morphine) 4 mg PACU PRN IV PAIN LEVEL 4-6 Last administered on 02/13/19at 13:45; Admin Dose 4 MG; Start 02/13/19 at 13:00; Stop 02/13/19 at 16:00 Labetalol HCl (Labetalol) 5 mg PACU ORDER PRN IV HIGH BLOOD PRESSURE; Start 02/13/19 at 13:00; Stop 02/13/19 at 16:00 Hydralazine HCl (Apresoline) 5 mg PACU ORDER PRN IV HIGH BLOOD PRESSURE; Start 02/13/19 at 13:00; Stop 02/13/19 at 16:00 Meperidine HCl (Demerol) 25 mg PACU ORDER PRN IV .RIGORS; Start 02/13/19 at 13:00; Stop 02/13/19 at 16:00 Diphenhydramine HCl (Benadryl) 25 mg PACU ORDER PRN IV .PRURITUS; Start 02/13/19 at 13:00; Stop 02/13/19 at 16:00 Heparin Sodium (Porcine) 250 ml @ 5 mls/hr IV IV Last administered on 02/13/19at 14:21; Admin Dose 5 MLS/HR; Start 02/13/19 at 14:00 Hydromorphone HCl (Dilaudid) 0.2 mg PACU PRN IV MILD PAIN 1-3; Start 02/13/19 at 14:43; Stop 02/13/19 at 20:00 Hydromorphone HCl (Dilaudid) 0.4 mg PACU PRN IV MOD PAIN 4-6 Last administered on 02/13/19at 14:51; Admin Dose 0.4 MG; Start 02/13/19 at 15:00; Stop 02/13/19 at 20:00 VERO ARELLANO Feb 13, 2019 15:21
[2019-02-13] MEDS: HYDROmorphONE 2 MG/ML SYG IV PRN ×2 (18:35→21:07)
[2019-02-13] MEDS: INSULIN GLARGINE [LANTus] (100 UNITS/ML) SYG SC SCH (21:18)
[2019-02-14] VITALS (26 sets, daily range): BP systolic 97–148; BP diastolic 49–74; PULSE 74–98; RESP 11–31
[2019-02-14] MEDS: HYDROmorphONE 2 MG/ML SYG IV PRN ×8 (00:04→22:05)
[2019-02-14] MEDS: VANCOMYCIN HCL 1.25 GM in SOD CHLORIDE 0.9% 250 ML IVPB SCH ×2 (01:01→12:59)
[2019-02-14] MEDS: ACCU-CHEK XX SCH (02:00)
[2019-02-14] MEDS: PANTOPRAZOLE (EC) 40 MG TAB PO SCH (06:20)
[2019-02-14] MEDS: metroNIDAZOLE 500 MG/NS (PMX) 100 ML IVPB SCH ×3 (06:20→21:55)
[2019-02-14] MEDS: INSULIN ASPART [NOVOLOG] 3 ML PEN SC SCH ×4 (07:35→21:00)
[2019-02-14] MEDS: CEFEPIME 2GM/50 ML (PMX) 50 ML IVPB SCH ×2 (09:04→21:55)
[2019-02-14] MEDS: GABAPENTIN 300 MG CAP PO SCH (09:04)
[2019-02-14] MEDS: FUROSEMIDE 20 MG TAB PO SCH (09:05)
[2019-02-14] MEDS: DOCUSATE SODIUM 100 MG CAP PO SCH ×2 (09:06→21:55)
[2019-02-14] MEDS: AMIODARONE 200 MG TAB PO SCH (09:06)
[2019-02-14] MEDS: CYANOCOBALAMIN 1000 MCG INJ IM SCH (09:07)
[2019-02-14] MEDS: CYCLOBENZAPRINE 10 MG TAB PO SCH ×2 (09:07→21:54)
[2019-02-14] MEDS: EMPAGLIFLOZIN 10 MG TABLET PO SCH (09:32)
[2019-02-14] MEDS: LINAGLIPTIN 5 MG TABLET PO SCH (09:39)
[2019-02-14] MEDS: LISINOPRIL 5 MG TAB PO SCH (09:40)
--- NOTE | 2019-02-14 10:55 | PN ---
Date/Time of Note Date/Time of Note DATE: 02/14/19 TIME: 10:49 Assessment/Plan Lines/Catheters IV Catheter Type (from Nrs): A Line Parks in Place (from Nrs): Yes Assessment/Plan Assessment/Plan Doing well s/p R pop-DP bypass Stop heparin Start Eliquis 2.5 bid Remove A-line and parks Tx to tele floor PT consult Will d/e Dr. Mata re: heel debridement Subjective 24 Hr Interval Summary Comfortable. No events overnight. Exam/Review of Systems Vital Signs Vitals Vital Signs Date Temp Pulse Resp B/P (MAP) Pulse Ox O2 O2 Flow FiO2 Time Delivery Rate 02/14/19 76 08:00 02/14/19 22 119/62 97 Room Air 06:00 (81) 02/14/19 98.7 04:00 02/13/19 8.0 13:00 Intake and Output 02/13/19 02/13/19 02/14/19 1515:00 23:00 07:00 IntakeIntake Total 1303 ml 790.000 ml 485.0 ml OutputOutput Total 400 ml 850 ml 900 ml BalanceBalance 903 ml -60.000 ml -415.0 ml Exam Free Text/Dictation R foot warm and hyperemic, 3+ graft pulse, incisions are clean and dry, no bleeding or hematoma Results Result Diagram: 02/13/19 0708 02/13/19 0708 VERO MAHONEY MD Feb 14, 2019 10:55
[2019-02-14] MEDS: NEOMYC/POLYMYX/BACIT 30 GM OINT TOP SCH (11:45)
[2019-02-14] MEDS: DAKINS 0.0125%(1/40) 473 ML SOLUTION TP SCH ×2 (11:45→13:54)
[2019-02-14] MEDS: APIXABAN 5 MG TABLET PO SCH ×2 (12:52→21:55)
[2019-02-14] MEDS: DIGOXIN 0.125 MG TAB PO SCH (13:09)
--- NOTE | 2019-02-14 13:18 | CONS ---
Assessment/Plan Assessment/Plan Hospital Course (Demo Recall) IMP: 1.Pre-op for peripheral bypass surgery. Lexiscan with no ischemia/+scar EF 28%. Echo EF 25%. OK to proceed to surgery at moderate CV risk. Now POD#1 s/p R POP- DP peripheral bypass 2.Cardiomyopathy with low EF-severely depressed by echo this admit 3.Hoth-borderline today 4.HL 5.Non-healing LE ulcer 6.PAD-severe s/p prior [employer]. Now POD#0 s/p POP to DP r side 7.DM 8. 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 Recc: -IN ICU -Continue digoxin -Continue coreg and zestril as tolerated only for treatment of cardiomyopathy -Continue amiodarone -Continue abx's and f/u cx data -local wound care -further outpatient eval of likely GIST tumor -Contine lasix po daily and follow volume status clsoely -pain control -Now transitioned to low dose eliquis Consultation Date/Type/Reason Admit Date/Time January 09, 2019 at 18:17 Initial Consult Date 01/10/19 Type of Consult Cardiology Reason for Consultation cardiomyopathy Requesting Provider: KRISTIN PRYOR MD Date/Time of Note DATE: 02/14/19 TIME: 13:16 Exam/Review of Systems Vital Signs Vitals Vital Signs Date Temp Pulse Resp B/P (MAP) Pulse Ox O2 O2 Flow FiO2 Time Delivery Rate 02/14/19 76 08:00 02/14/19 22 119/62 97 Room Air 06:00 (81) 02/14/19 98.7 04:00 02/13/19 8.0 13:00 Intake and Output 02/13/19 02/13/19 02/14/19 1515:00 23:00 07:00 IntakeIntake Total 1303 ml 790.000 ml 490.0 ml OutputOutput Total 400 ml 850 ml 900 ml BalanceBalance 903 ml -60.000 ml -410.0 ml Exam Exam Review of Systems: CONSTITUTIONAL: No fevers, chills. PULMONARY: No sob CARDIOVASCULAR: No chest pain/palpitations GASTROINTESTINAL: No nausea/vomiting. GENITOURINARY: No hematuria/dysuria. MUSCULOSKELETAL:mild pain in leg PSYCHIATRIC: The patient denies depression. NEUROLOGIC: No weakness Constitutional: alert Psych: no complaints Head: normocephalic ENMT: mucosa pink and moist Neck: supple, jvd (9 cm water) Respiratory: clear to auscultation Cardiovascular: regular rate and rhythm Gastrointestinal: soft, non-tender Extremities: other (R leg s/p surgery) 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: other (No focal deficits) Labs Result Diagram: 02/13/19 0708 02/13/19 0708 Results 24hrs Laboratory Tests Test 02/13/19 14:33 02/13/19 17:42 02/13/19 21:15 02/14/19 08:19 Bedside Glucose 135 171 127 106 Test 02/14/19 09:31 02/14/19 12:30 Bedside Glucose 144 113 Medications Medications Current Medications Amiodarone HCl (Cordarone) 200 mg DAILY PO Last administered on 02/14/19 09:06; Admin Dose 200 MG; Start 01/10/19 at 09:00 Digoxin (Digoxin) 0.125 mg DAILY@1300 PO Last administered on 02/14/19 13:09; Admin Dose 0.125 MG; Start 01/10/19 at 13:00 Gabapentin (Neurontin) 600 mg DAILY PO Last administered on 02/14/19 09:04; Admin Dose 600 MG; Start 01/10/19 at 09:00 Empaglifozin (Jardiance) 25 mg DAILY PO Last administered on 02/14/19 09:32; Admin Dose 25 MG; Start 01/10/19 at 09:00 Linagliptin (Tradjenta) 5 mg DAILY PO Last administered on 02/14/19 09:39; Admin Dose 5 MG; Start 01/10/19 at 09:00 Diagnostic Test (Pha) (Accu-Chek) 1 ea 02 XX Last administered on 02/12/19at 02:42; Admin Dose 1 EA; Start 01/10/19 at 02:00 Miscellaneous Information 1 ea NOTE XX ; Start 01/09/19 at 21:30 Glucose (Glutose) 15 gm Q15M PRN PO DECREASED GLUCOSE; Start 01/09/19 at 21:30 Glucose (Glutose) 22.5 gm Q15M PRN PO DECREASED GLUCOSE; Start 01/09/19 at 21:30 Dextrose (D50w Syringe) 50 ml Q15M PRN IV DECREASED GLUCOSE; Start 01/09/19 at 21:30 Glucagon (Glucagen) 1 mg Q15M PRN IM DECREASED GLUCOSE; Start 01/09/19 at 21:30 Glucose (Glutose) 15 gm Q15M PRN BUCCAL DECREASED GLUCOSE; Start 01/09/19 at 21:30 Insulin Glargine (Lantus) 18 units QHS SC Last administered on 02/13/19 21:18; Admin Dose 18 UNITS; Start 01/09/19 at 22:30 Carvedilol (Coreg) 3.125 mg BID PO Last administered on 02/14/19 09:08; Admin Dose 3.125 MG; Start 01/10/19 at 21:00 Vancomycin HCl (Vanco Iv Per Pharmacy) VANCOMYCIN PER PHARMACY PER PROTOCOL XX ; Start 01/11/19 at 02:30 Lisinopril (Zestril) 2.5 mg DAILY PO Last administered on 02/14/19 09:40; Admin Dose 2.5 MG; Start 01/13/19 at 09:00 Senna (Senokot) 1 tab DAILY PRN PO CONSTIPATION Last administered on 02/07/19 14:26; Admin Dose 1 TAB; Start 01/12/19 at 18:30 Neomycin/ Polymyxin/ Bacitracin (Neosporin Topical Oint) 1 applic DAILY TOP Last administered on 02/14/19 11:45; Admin Dose 1 APPLIC; Start 01/12/19 at 18:30 Cyanocobalamin (Vitamin B12 Inj) 1,000 mcg DAILY IM Last administered on 02/14/19 at 09:07; Admin Dose 1,000 MCG; Start 01/16/19 at 09:00 Pantoprazole (Protonix Tab) 40 mg DAILY@06 PO Last administered on 02/14/19 06:20; Admin Dose 40 MG; Start 01/17/19 at 06:00 Metronidazole 100 ml @ 100 mls/hr Q8 IVPB Last administered on 02/14/19 06:20; Admin Dose 100 MLS/HR; Start 01/16/19 at 22:00 Cefepime HCl 50 ml @ 100 mls/hr Q12 IVPB Last administered on 02/14/19 09:04; Admin Dose 100 MLS/HR; Start 01/17/19 at 21:00 Vancomycin HCl 1.25 gm/Sodium Chloride 250 ml @ 83.333 mls/ hr Q12H IVPB Last administered on 02/14/19 12:59; Admin Dose 83.333 MLS/HR; Start 01/25/19 at 01:00 Insulin Aspart (Novolog Insulin Pen) NOVOLOG *MODERATE* ALGORITHM WITH MEALS BEDTIME SC Last administered on 02/13/19 17:45; Admin Dose 2 UNIT; Start 01/26/19 at 21:00 IV Flush (NS 10 ml) 10 ml PRN PRN IV IV PROTOCOL; Start 01/29/19 at 17:00 Docusate Sodium (Colace) 100 mg BID PO Last administered on 02/14/19 09:06; Admin Dose 100 MG; Start 02/07/19 at 21:00 Magnesium Hydroxide (Milk Of Mag) 30 ml BID PRN PO CONSTIPATION; Start 02/08/19 at 14:00 Sodium Hypochlorite (Dakins Diluted ()) 1 applic DAILY TP Last administered on 02/12/19 10:12; Admin Dose 1 APPLIC; Start 02/09/19 at 13:00 Acetaminophen (Tylenol Tab) 650 mg Q4H PRN PO MILD PAIN(1-3)OR ELEVATED TEMP; Start 02/10/19 at 22:00 Ondansetron HCl (Zofran Inj) 4 mg Q6H PRN IV NAUSEA AND/OR VOMITING; Start 02/10/19 at 22:00 Furosemide (Lasix) 20 mg DAILY PO Last administered on 02/14/19 09:05; Admin Dose 20 MG; Start 02/13/19 at 09:00 Cyclobenzaprine HCl (Flexeril) 5 mg BID PO Last administered on 02/14/19 09:07; Admin Dose 5 MG; Start 02/13/19 at 09:00 Hydromorphone HCl (Dilaudid) 2 mg Q3 PRN IV SEVERE PAIN LEVEL 7-10 Last ad ministered on 02/14/19 12:22; Admin Dose 2 MG; Start 02/13/19 at 18:30 Apixaban (Eliquis) 2.5 mg BID PO Last administered on 02/14/19 12:52; Admin Dose 2.5 MG; Start 02/14/19 at 12:00 Miscellaneous Information (*Rx Drug Level Order Reminder*) VANCO TROUGH @ 1,200 ON... 1200 ONCE XX ; Start 02/15/19 at 12:00; Stop 02/15/19 at 12:01 VERO ARELLANO Feb 14, 2019 13:18
--- NOTE | 2019-02-14 14:33 | CONS ---
Assessment/Plan Assessment/Plan Hospital Course (Demo Recall) - s/p R pop-DP bypass with non reversed GSV harvested from the thigh with endoscopic vein harvest 02/13/2019 - polymicrobial infection of non-healing ulcer of R heel. CT on 01/10/2019 did not show evidence of OM. ESR 26 on 01/09/2019 and 37 on 01/12/2019; superficial wound culture grew pseudomonas, E. Coli, enterococcus (isolated from broth only), scant proteus, and scant CoNS. ESR 23 and repeat culture on 02/06/2019 grew pseudomonas - s/p Debridement of the right calcaneal ulceration 01/13/2019; intraop culture grew E. Coli, Proteus, and Enterococcus - chronic wound of R heel, in the past the wound culture grew E. coli. repeat culture on 02/06/2019 grew pseudomonas - h/o OM of R foot, h/o 6 weeks of IV vancomycin and ceftriaxone in 2018. 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 and needs EUS with FNA to confirm the diagnosis - trauma to R knee - anemia requiring PRBC - PAF - CAD s/p CABG - HTN - CM with EF 25% - h/o AICD placement - PVD - h/o aortogram, RLE runoff and percutaneous angioplasty of the posterior tibial artery and the anterior tibial artery in 10/2018 - DM - Hgb A1c 7.6% - HLD associated with DM Recommendations: - continue 6 weeks of vancomycin iv (01/11/2019-), cefepime (restart 01/17/2019-), and metronidazole IV (01/16/2019-) through 02/22/19 - continue local wound care with topical antiseptic (Dakin's solution) - please check weekly CBC BMP and ESR while Pt's on IV antibiotics; ordered ESR with next lab draw (tomorrow at noon with vanco trough) Management discussed with patient, [employer] Lobo, and with Dr. Urbano Total critical care time spent: 30 min Consultation Date/Type/Reason Admit Date/Time January 09, 2019 at 18:17 Initial Consult Date 01/16/19 Type of Consult Infectious Disease Requesting Provider: KRISTIN PRYOR MD Date/Time of Note DATE: 02/14/19 TIME: 14:33 24 HR Interval Summary Free Text/Dictation Rates sciatica pain /10 and RLE pain /10. Denies CP, SOB, n/v/d, dysuria. Avelar and A-line was removed; planning to transfer to Telemetry when bed is available per d/w [employer]. Exam/Review of Systems Exam Vitals Vital Signs Date Temp Pulse Resp B/P (MAP) Pulse Ox O2 O2 Flow FiO2 Time Delivery Rate 02/14/19 85 12:00 02/14/19 13 148/61 97 Room Air 11:45 (90) 02/14/19 98.1 08:00 02/13/19 8.0 13:00 Intake and Output 02/13/19 02/13/19 02/14/19 1515:00 23:00 07:00 IntakeIntake Total 1303 ml 790.000 ml 490.0 ml OutputOutput Total 400 ml 850 ml 900 ml BalanceBalance 903 ml -60.000 ml -410.0 ml Exam Constitutional: alert, oriented, well developed, obese, other (in no acute distress) Head: normocephalic, atraumatic Eyes: nl conjunctiva, nl lids, nl sclera ENMT: nl external ears & nose, nl nasal mucosa & septum Neck: supple Respiratory: clear to auscultation, normal air movement, other (on room air) Cardiovascular: regular rate and rhythm Gastrointestinal: soft, non-tender Genitourinary - Male: other (No Avelar) Extremities: tenderness (RLE) 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: nl mental status, nl speech Skin: nl turgor, other (RLE and R foot dressing c/d/i) Results Result Diagram: 02/13/19 0708 02/13/19 0708 Results 24hrs Laboratory Tests Test 02/13/19 17:42 02/13/19 21:15 02/14/19 08:19 02/14/19 09:31 Bedside Glucose 171 127 106 144 Test 02/14/19 12:30 Bedside Glucose 113 Medications Medication Current Medications Amiodarone HCl (Cordarone) 200 mg DAILY PO Last administered on 02/14/19at 09:06; Admin Dose 200 MG; Start 01/10/19 at 09:00 Digoxin (Digoxin) 0.125 mg DAILY@1300 PO Last administered on 02/14/19at 13:09; Admin Dose 0.125 MG; Start 01/10/19 at 13:00 Gabapentin (Neurontin) 600 mg DAILY PO Last administered on 02/14/19 09:04; Admin Dose 600 MG; Start 01/10/19 at 09:00 Empaglifozin (Jardiance) 25 mg DAILY PO Last administered on 02/14/19 09:32; Admin Dose 25 MG; Start 01/10/19 at 09:00 Linagliptin (Tradjenta) 5 mg DAILY PO Last administered on 02/14/19 09:39; Admin Dose 5 MG; Start 01/10/19 at 09:00 Diagnostic Test (Pha) (Accu-Chek) 1 ea 02 XX Last administered on 02/12/19 02:42; Admin Dose 1 EA; Start 01/10/19 at 02:00 Miscellaneous Information 1 ea NOTE XX ; Start 01/09/19 at 21:30 Glucose (Glutose) 15 gm Q15M PRN PO DECREASED GLUCOSE; Start 01/09/19 at 21:30 Glucose (Glutose) 22.5 gm Q15M PRN PO DECREASED GLUCOSE; Start 01/09/19 at 21:30 Dextrose (D50w Syringe) 50 ml Q15M PRN IV DECREASED GLUCOSE; Start 01/09/19 at 21:30 Glucagon (Glucagen) 1 mg Q15M PRN IM DECREASED GLUCOSE; Start 01/09/19 at 21:30 Glucose (Glutose) 15 gm Q15M PRN BUCCAL DECREASED GLUCOSE; Start 01/09/19 at 21:30 Insulin Glargine (Lantus) 18 units QHS SC Last administered on 02/13/19 21:18; Admin Dose 18 UNITS; Start 01/09/19 at 22:30 Carvedilol (Coreg) 3.125 mg BID PO Last administered on 02/14/19 09:08; Admin Dose 3.125 MG; Start 01/10/19 at 21:00 Vancomycin HCl (Vanco Iv Per Pharmacy) VANCOMYCIN PER PHARMACY PER PROTOCOL XX ; Start 01/11/19 at 02:30 Lisinopril (Zestril) 2.5 mg DAILY PO Last administered on 02/14/19 09:40; Admin Dose 2.5 MG; Start 01/13/19 at 09:00 Senna (Senokot) 1 tab DAILY PRN PO CONSTIPATION Last administered on 02/07/19 14:26; Admin Dose 1 TAB; Start 01/12/19 at 18:30 Neomycin/ Polymyxin/ Bacitracin (Neosporin Topical Oint) 1 applic DAILY TOP Last administered on 02/14/19 11:45; Admin Dose 1 APPLIC; Start 01/12/19 at 18:30 Cyanocobalamin (Vitamin B12 Inj) 1,000 mcg DAILY IM Last administered on 02/14/19 09:07; Admin Dose 1,000 MCG; Start 01/16/19 at 09:00 Pantoprazole (Protonix Tab) 40 mg DAILY@06 PO Last administered on 02/14/19 06:20; Admin Dose 40 MG; Start 01/17/19 at 06:00 Metronidazole 100 ml @ 100 mls/hr Q8 IVPB Last administered on 02/14/19 14:08; Admin Dose 100 MLS/HR; Start 01/16/19 at 22:00 Cefepime HCl 50 ml @ 100 mls/hr Q12 IVPB Last administered on 02/14/19 09:04; Admin Dose 100 MLS/HR; Start 01/17/19 at 21:00 Vancomycin HCl 1.25 gm/Sodium Chloride 250 ml @ 83.333 mls/ hr Q12H IVPB Last administered on 02/14/19 12:59; Admin Dose 83.333 MLS/HR; Start 01/25/19 at 01:00 Insulin Aspart (Novolog Insulin Pen) NOVOLOG *MODERATE* ALGORITHM WITH MEALS BEDTIME SC Last administered on 02/13/19 17:45; Admin Dose 2 UNIT; Start 01/26/19 at 21:00 IV Flush (NS 10 ml) 10 ml PRN PRN IV IV PROTOCOL; Start 01/29/19 at 17:00 Docusate Sodium (Colace) 100 mg BID PO Last administered on 02/14/19 09:06; Admin Dose 100 MG; Start 02/07/19 at 21:00 Magnesium Hydroxide (Milk Of Mag) 30 ml BID PRN PO CONSTIPATION; Start 02/08/19 at 14:00 Sodium Hypochlorite (Dakins Diluted (1/40)) 1 applic DAILY TP Last administered on 02/14/19 13:54; Admin Dose 1 APPLIC; Start 02/09/19 at 13:00 Acetaminophen (Tylenol Tab) 650 mg Q4H PRN PO MILD PAIN(1-3)OR ELEVATED TEMP; Start 02/10/19 at 22:00 Ondansetron HCl (Zofran Inj) 4 mg Q6H PRN IV NAUSEA AND/OR VOMITING; Start 02/10/19 at 22:00 Furosemide (Lasix) 20 mg DAILY PO Last administered on 02/14/19 09:05; Admin Dose 20 MG; Start 02/13/19 at 09:00 Cyclobenzaprine HCl (Flexeril) 5 mg BID PO Last administered on 02/14/19at 09:07; Admin Dose 5 MG; Start 02/13/19 at 09:00 Hydromorphone HCl (Dilaudid) 2 mg Q3 PRN IV SEVERE PAIN LEVEL 7-10 Last administered on 02/14/19at 12:22; Admin Dose 2 MG; Start 02/13/19 at 18:30 Apixaban (Eliquis) 2.5 mg BID PO Last administered on 02/14/19at 12:52; Admin Dose 2.5 MG; Start 02/14/19 at 12:00 Miscellaneous Information (*Rx Drug Level Order Reminder*) VANCO TROUGH @ 1,200 ON... 1200 ONCE XX ; Start 02/15/19 at 12:00; Stop 02/15/19 at 12:01 LE HUTCHINS NP Feb 14, 2019 14:33
--- NOTE | 2019-02-14 16:05 | PN ---
Date/Time of Note Date/Time of Note DATE: 02/14/19 TIME: 16:00 Assessment/Plan VTE Prophylaxis Risk score (from Ns)>0 risk: 3 SCD applied (from Ns): No SCD contraindicated: other Pharmacological prophylaxis: other Pharm contraindication: other Lines/Catheters IV Catheter Type (from Nrsg): A Line Urinary Cath still in place: Yes Reason Cath still needed: urinary retention Assessment/Plan Assessment/Plan -Chronic peripheral vascular disease, history of angioplasty x2. -Dr. Sheppard is following in vascular surgery consultation. - Sp right pop DP bypass yesterday -Right heel necrotic wound. -Dr. Mata is following in podiatry consultation. Status post debridement. -Continue antibiotics per ID. Dr. Urbano is following in infection disease consultation. - Will require total of 6 weeks of Vancomycin IV, Cefepime IV, and Flagyl IV through 02/22/19. 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 EUS and FNA as an outpatient to confirm GIST tumor diagnosis. Continue PPI. -New onset of anemia and hypotension requiring blood transfusion on 01/15/2019, stool for OB is negative. -Coronary artery disease, status post coronary artery bypass graft. -Cardiomyopathy with ejection fraction of 25%. Continue Coreg. Dr. Foster is following in cardiology consultation. -Status post AICD. -Hx of Hypertension. -Diabetes hemoglobin A1c 7.6. Continue Lantus and NovoLog. -Right knee contusion and abrasion status post fall. Status post evaluation by Dr. Zelaya and orthopedic surgery. No signs of fracture or dystrophic dislocation. -Chronic low back pain with significant spondylolisthesis grade II at the level of L5 to S1. Status post evaluation and pain management by Dr. Robertson and pain management consultation. Total critical care tome spent 35 mins. Further recommendations based on clinical course. Plan of care discussed with Dr. Mann. Result Diagram: 02/13/19 0708 02/13/19 0708 Results 24hrs Laboratory Tests Test 02/13/19 17:42 02/13/19 21:15 02/14/19 08:19 02/14/19 09:31 Bedside Glucose 171 127 106 144 Test 02/14/19 12:30 Bedside Glucose 113 Subjective 24 Hr Interval Summary Free Text/Dictation SP RLE Bypass yesterday no events reported last night Tele transfer when bed is available dw staff Constitutional: requiring IVF ENT: no complaints Respiratory: no complaints Cardiovascular: no complaints Gastrointestinal: no complaints Genitourinary: no complaints Musculoskeletal: bone/joint pain Skin: no complaints Neurologic: no complaints Psychological: nl mood/affect Exam/Review of Systems Exam Vitals Vital Signs Date Temp Pulse Resp B/P (MAP) Pulse Ox O2 O2 Flow FiO2 Time Delivery Rate 02/14/19 85 12:00 02/14/19 13 148/61 97 Room Air 11:45 (90) 02/14/19 98.1 08:00 02/13/19 8.0 13:00 Intake and Output 02/13/19 02/13/19 02/14/19 1515:00 23:00 07:00 IntakeIntake Total 1303 ml 790.000 ml 490.0 ml OutputOutput Total 400 ml 850 ml 900 ml BalanceBalance 903 ml -60.000 ml -410.0 ml Constitutional: alert, well developed Psych: nl mood/affect ENMT: nl external ears & nose Respiratory: clear to auscultation Cardiovascular: nl pulses, other (s1s2) Gastrointestinal: soft, non-tender Musculoskeletal: joint tenderness, range of motion, other Extremities: edema 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: other (alert/responsive) Skin: other Lymph: nontender Results Results 24hrs Laboratory Tests Test 02/13/19 17:42 02/13/19 21:15 02/14/19 08:19 02/14/19 09:31 Bedside Glucose 171 127 106 144 Test 02/14/19 12:30 Bedside Glucose 113 Medications Medication Current Medications Amiodarone HCl (Cordarone) 200 mg DAILY PO Last administered on 02/14/19 09:06; Admin Dose 200 MG; Start 01/10/19 at 09:00 Digoxin (Digoxin) 0.125 mg DAILY@1300 PO Last administered on 02/14/19 13:09; Admin Dose 0.125 MG; Start 01/10/19 at 13:00 Gabapentin (Neurontin) 600 mg DAILY PO Last administered on 02/14/19 09:04; Admin Dose 600 MG; Start 01/10/19 at 09:00 Empaglifozin (Jardiance) 25 mg DAILY PO Last administered on 02/14/19 09:32; Admin Dose 25 MG; Start 01/10/19 at 09:00 Linagliptin (Tradjenta) 5 mg DAILY PO Last administered on 02/14/19 09:39; Admin Dose 5 MG; Start 01/10/19 at 09:00 Diagnostic Test (Pha) (Accu-Chek) 1 ea 02 XX Last administered on 02/12/19 02:42; Admin Dose 1 EA; Start 01/10/19 at 02:00 Miscellaneous Information 1 ea NOTE XX ; Start 01/09/19 at 21:30 Glucose (Glutose) 15 gm Q15M PRN PO DECREASED GLUCOSE; Start 01/09/19 at 21:30 Glucose (Glutose) 22.5 gm Q15M PRN PO DECREASED GLUCOSE; Start 01/09/19 at 21:30 Dextrose (D50w Syringe) 50 ml Q15M PRN IV DECREASED GLUCOSE; Start 01/09/19 at 21:30 Glucagon (Glucagen) 1 mg Q15M PRN IM DECREASED GLUCOSE; Start 01/09/19 at 21:30 Glucose (Glutose) 15 gm Q15M PRN BUCCAL DECREASED GLUCOSE; Start 01/09/19 at 21:30 Insulin Glargine (Lantus) 18 units QHS SC Last administered on 02/13/19 21:18; Admin Dose 18 UNITS; Start 01/09/19 at 22:30 Carvedilol (Coreg) 3.125 mg BID PO Last administered on 02/14/19 09:08; Admin Dose 3.125 MG; Start 01/10/19 at 21:00 Vancomycin HCl (Vanco Iv Per Pharmacy) VANCOMYCIN PER PHARMACY PER PROTOCOL XX ; Start 01/11/19 at 02:30 Lisinopril (Zestril) 2.5 mg DAILY PO Last administered on 02/14/19 09:40; Admin Dose 2.5 MG; Start 01/13/19 at 09:00 Senna (Senokot) 1 tab DAILY PRN PO CONSTIPATION Last administered on 02/07/19 14:26; Admin Dose 1 TAB; Start 01/12/19 at 18:30 Neomycin/ Polymyxin/ Bacitracin (Neosporin Topical Oint) 1 applic DAILY TOP Last administered on 02/14/19at 11:45; Admin Dose 1 APPLIC; Start 01/12/19 at 18:30 Cyanocobalamin (Vitamin B12 Inj) 1,000 mcg DAILY IM Last administered on 02/14/19 09:07; Admin Dose 1,000 MCG; Start 01/16/19 at 09:00 Pantoprazole (Protonix Tab) 40 mg DAILY@06 PO Last administered on 02/14/19 06:20; Admin Dose 40 MG; Start 01/17/19 at 06:00 Metronidazole 100 ml @ 100 mls/hr Q8 IVPB Last administered on 02/14/19 14:08; Admin Dose 100 MLS/HR; Start 01/16/19 at 22:00 Cefepime HCl 50 ml @ 100 mls/hr Q12 IVPB Last administered on 02/14/19 09:04; Admin Dose 100 MLS/HR; Start 01/17/19 at 21:00 Vancomycin HCl 1.25 gm/Sodium Chloride 250 ml @ 83.333 mls/ hr Q12H IVPB Last administered on 02/14/19 12:59; Admin Dose 83.333 MLS/HR; Start 01/25/19 at 01:00 Insulin Aspart (Novolog Insulin Pen) NOVOLOG *MODERATE* ALGORITHM WITH MEALS BEDTIME SC Last administered on 02/13/19 17:45; Admin Dose 2 UNIT; Start 01/26/19 at 21:00 IV Flush (NS 10 ml) 10 ml PRN PRN IV IV PROTOCOL; Start 01/29/19 at 17:00 Docusate Sodium (Colace) 100 mg BID PO Last administered on 02/14/19 09:06; Admin Dose 100 MG; Start 02/07/19 at 21:00 Magnesium Hydroxide (Milk Of Mag) 30 ml BID PRN PO CONSTIPATION; Start 02/08/19 at 14:00 Sodium Hypochlorite (Dakins Diluted (/40)) 1 applic DAILY TP Last administered on 02/14/19 13:54; Admin Dose 1 APPLIC; Start 02/09/19 at 13:00 Acetaminophen (Tylenol Tab) 650 mg Q4H PRN PO MILD PAIN(1-3)OR ELEVATED TEMP; Start 02/10/19 at 22:00 Ondansetron HCl (Zofran Inj) 4 mg Q6H PRN IV NAUSEA AND/OR VOMITING; Start 02/10/19 at 22:00 Furosemide (Lasix) 20 mg DAILY PO Last administered on 02/14/19 09:05; Admin Dose 20 MG; Start 02/13/19 at 09:00 Cyclobenzaprine HCl (Flexeril) 5 mg BID PO Last administered on 02/14/19 09:07; Admin Dose 5 MG; Start 02/13/19 at 09:00 Hydromorphone HCl (Dilaudid) 2 mg Q3 PRN IV SEVERE PAIN LEVEL 7-10 Last administered on 02/14/19 15:41; Admin Dose 2 MG; Start 02/13/19 at 18:30 Apixaban (Eliquis) 2.5 mg BID PO Last administered on 02/14/19 12:52; Admin Dose 2.5 MG; Start 02/14/19 at 12:00 Miscellaneous Information (*Rx Drug Level Order Reminder*) VANCO TROUGH @ 1,200 ON... 1200 ONCE XX ; Start 02/15/19 at 12:00; Stop 02/15/19 at 12:01 MARTINE PUENTES Feb 14, 2019 16:05
[2019-02-14] MEDS: INSULIN GLARGINE [LANTus] (100 UNITS/ML) SYG SC SCH (22:03)
[2019-02-15] VITALS (11 sets, daily range): BP systolic 100–111; BP diastolic 56–63; PULSE 68–93; RESP 12–18
[2019-02-15] MEDS: HYDROmorphONE 2 MG/ML SYG IV PRN ×8 (00:56→23:30)
[2019-02-15] MEDS: VANCOMYCIN HCL 1.25 GM in SOD CHLORIDE 0.9% 250 ML IVPB SCH ×2 (00:56→13:26)
[2019-02-15] MEDS: ACCU-CHEK XX SCH (01:22)
[2019-02-15] MEDS ORDERED: PENDING SANTYL ORDER FOR WOUND CARE XX PRN (04:30)
[2019-02-15] MEDS: PANTOPRAZOLE (EC) 40 MG TAB PO SCH ×2 (05:03→10:08)
[2019-02-15] MEDS: MAGNESIUM HYDROXIDE 30ML CUP PO PRN ×2 (05:03→20:20)
[2019-02-15] MEDS: metroNIDAZOLE 500 MG/NS (PMX) 100 ML IVPB SCH ×3 (05:03→21:01)
--- NOTE | 2019-02-15 07:09 | PN ---
Date/Time of Note Date/Time of Note DATE: 02/15/19 TIME: 07:08 Assessment/Plan VTE Prophylaxis Risk score (from Nsg)>0 risk: 6 SCD applied (from Ns): No SCD contraindicated: other Pharmacological prophylaxis: other Lines/Catheters IV Catheter Type (from Nrsg): PICC Line Central line still needed: Yes Urinary Cath still in place: Yes Reason Cath still needed: urinary retention Assessment/Plan Assessment/Plan -Chronic peripheral vascular disease, history of angioplasty x2. -Dr. Sheppard is following in vascular surgery consultation. - Sp right pop DP bypass yesterday -Right heel necrotic wound. -Dr. Mata is following in podiatry consultation. Status post debridement. -Continue antibiotics per ID. Dr. Urbano is following in infection disease consultation. - Will require total of 6 weeks of Vancomycin IV, Cefepime IV, and Flagyl IV through 02/22/19. 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 EUS and FNA as an outpatient to confirm GIST tumor diagnosis. Continue PPI. -New onset of anemia and hypotension requiring blood transfusion on 01/15/2019, stool for OB is negative. -Coronary artery disease, status post coronary artery bypass graft. -Cardiomyopathy with ejection fraction of 25%. Continue Coreg. Dr. Foster is following in cardiology consultation. -Status post AICD. -Hx of Hypertension. -Diabetes hemoglobin A1c 7.6. Continue Lantus and NovoLog. -Right knee contusion and abrasion status post fall. Status post evaluation by Dr. Zelaya and orthopedic surgery. No signs of fracture or dystrophic dislocation. -Chronic low back pain with significant spondylolisthesis grade II at the level of L5 to S1. Status post evaluation and pain management by Dr. Robertson and pain management consultation. Further recommendations based on clinical course. Plan of care discussed with Dr. Mann. Result Diagram: 02/13/19 0708 02/13/19 0708 Results 24hrs Laboratory Tests Test 02/14/19 08:19 02/14/19 09:31 02/14/19 12:30 02/14/19 18:59 Bedside Glucose 106 144 113 144 Test 02/14/19 21:58 Bedside Glucose 168 Subjective 24 Hr Interval Summary Free Text/Dictation c/o right foot pain; effective pain ed afebrile no events reported last night dw staff Eyes: no complaints ENT: no complaints Respiratory: no complaints Cardiovascular: no complaints Gastrointestinal: no complaints Genitourinary: no complaints Musculoskeletal: bone/joint pain, restricted range of motion Skin: other Neurologic: no complaints Endocrine: no complaints Lymphatic: no complaints Psychological: nl mood/affect Immunologic: no complaints Exam/Review of Systems Exam Vitals Vital Signs Date Temp Pulse Resp B/P (MAP) Pulse Ox O2 O2 Flow FiO2 Time Delivery Rate 02/15/19 81 04:00 02/15/19 98.6 18 111/59 95 04:00 (76) 02/15/19 Room Air 00:45 02/13/19 8.0 13:00 Intake and Output 02/14/19 02/14/19 02/15/19 1515:00 23:00 07:00 IntakeIntake Total 709.1 ml 433.3 ml 650 ml OutputOutput Total 1340 ml 920 ml 350 ml BalanceBalance -630.9 ml -486.7 ml 300 ml Constitutional: alert, well developed Psych: nl mood/affect Head: normocephalic Eyes: nl lids, nl sclera ENMT: nl external ears & nose Neck: non-tender Respiratory: clear to auscultation Cardiovascular: nl pulses, other (s1s2) Gastrointestinal: soft, non-tender Musculoskeletal: joint tenderness, range of motion Extremities: edema 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: nl mental status, nl speech Skin: other Lymph: nontender Results Results 24hrs Laboratory Tests Test 02/14/19 08:19 02/14/19 09:31 02/14/19 12:30 02/14/19 18:59 Bedside Glucose 106 144 113 144 Test 02/14/19 21:58 Bedside Glucose 168 Medications Medication Current Medications Amiodarone HCl (Cordarone) 200 mg DAILY PO Last administered on 02/14/19at 09:06; Admin Dose 200 MG; Start 01/10/19 at 09:00 Digoxin (Digoxin) 0.125 mg DAILY@1300 PO Last administered on 02/14/19at 13:09; Admin Dose 0.125 MG; Start 01/10/19 at 13:00 Gabapentin (Neurontin) 600 mg DAILY PO Last administered on 02/14/19at 09:04; Admin Dose 600 MG; Start 01/10/19 at 09:00 Empaglifozin (Jardiance) 25 mg DAILY PO Last administered on 02/14/19 09:32; Admin Dose 25 MG; Start 01/10/19 at 09:00 Linagliptin (Tradjenta) 5 mg DAILY PO Last administered on 02/14/19 09:39; Admin Dose 5 MG; Start 01/10/19 at 09:00 Diagnostic Test (Pha) (Accu-Chek) 1 ea 02 XX Last administered on 02/12/19 02:42; Admin Dose 1 EA; Start 01/10/19 at 02:00 Miscellaneous Information 1 ea NOTE XX ; Start 01/09/19 at 21:30 Glucose (Glutose) 15 gm Q15M PRN PO DECREASED GLUCOSE; Start 01/09/19 at 21:30 Glucose (Glutose) 22.5 gm Q15M PRN PO DECREASED GLUCOSE; Start 01/09/19 at 21:30 Dextrose (D50w Syringe) 50 ml Q15M PRN IV DECREASED GLUCOSE; Start 01/09/19 at 21:30 Glucagon (Glucagen) 1 mg Q15M PRN IM DECREASED GLUCOSE; Start 01/09/19 at 21:30 Glucose (Glutose) 15 gm Q15M PRN BUCCAL DECREASED GLUCOSE; Start 01/09/19 at 21:30 Insulin Glargine (Lantus) 18 units QHS SC Last administered on 02/14/19 22:03; Admin Dose 18 UNITS; Start 01/09/19 at 22:30 Carvedilol (Coreg) 3.125 mg BID PO Last administered on 02/14/19 09:08; Admin Dose 3.125 MG; Start 01/10/19 at 21:00 Vancomycin HCl (Vanco Iv Per Pharmacy) VANCOMYCIN PER PHARMACY PER PROTOCOL XX ; Start 01/11/19 at 02:30 Lisinopril (Zestril) 2.5 mg DAILY PO Last administered on 02/14/19 09:40; Admin Dose 2.5 MG; Start 01/13/19 at 09:00 Senna (Senokot) 1 tab DAILY PRN PO CONSTIPATION Last administered on 02/07/19 14:26; Admin Dose 1 TAB; Start 01/12/19 at 18:30 Neomycin/ Polymyxin/ Bacitracin (Neosporin Topical Oint) 1 applic DAILY TOP Last administered on 02/14/19 11:45; Admin Dose 1 APPLIC; Start 01/12/19 at 18:30 Cyanocobalamin (Vitamin B12 Inj) 1,000 mcg DAILY IM Last administered on 02/14/19 09:07; Admin Dose 1,000 MCG; Start 01/16/19 at 09:00 Pantoprazole (Protonix Tab) 40 mg DAILY@06 PO Last administered on 02/15/19 05:03; Admin Dose 40 MG; Start 01/17/19 at 06:00 Metronidazole 100 ml @ 100 mls/hr Q8 IVPB Last administered on 02/15/19 05:03; Admin Dose 100 MLS/HR; Start 01/16/19 at 22:00 Cefepime HCl 50 ml @ 100 mls/hr Q12 IVPB Last administered on 02/14/19 21:55; Admin Dose 100 MLS/HR; Start 01/17/19 at 21:00 Vancomycin HCl 1.25 gm/Sodium Chloride 250 ml @ 83.333 mls/ hr Q12H IVPB Last administered on 02/15/19 00:56; Admin Dose 83.333 MLS/HR; Start 01/25/19 at 01:00 Insulin Aspart (Novolog Insulin Pen) NOVOLOG *MODERATE* ALGORITHM WITH MEALS BEDTIME SC Last administered on 02/14/19 19:12; Admin Dose 2 UNIT; Start 01/26/19 at 21:00 IV Flush (NS 10 ml) 10 ml PRN PRN IV IV PROTOCOL; Start 01/29/19 at 17:00 Docusate Sodium (Colace) 100 mg BID PO Last administered on 02/14/19 21:55; Admin Dose 100 MG; Start 02/07/19 at 21:00 Magnesium Hydroxide (Milk Of Mag) 30 ml BID PRN PO CONSTIPATION Last administered on 02/15/19 05:03; Admin Dose 30 ML; Start 02/08/19 at 14:00 Sodium Hypochlorite (Dakins Diluted ()) 1 applic DAILY TP Last administered on 02/14/19 13:54; Admin Dose 1 APPLIC; Start 02/09/19 at 13:00 Acetaminophen (Tylenol Tab) 650 mg Q4H PRN PO MILD PAIN(1-3)OR ELEVATED TEMP; Start 02/10/19 at 22:00 Ondansetron HCl (Zofran Inj) 4 mg Q6H PRN IV NAUSEA AND/OR VOMITING; Start 02/10/19 at 22:00 Furosemide (Lasix) 20 mg DAILY PO Last administered on 02/14/19at 09:05; Admin Dose 20 MG; Start 02/13/19 at 09:00 Cyclobenzaprine HCl (Flexeril) 5 mg BID PO Last administered on 02/14/19at 21:54; Admin Dose 5 MG; Start 02/13/19 at 09:00 Hydromorphone HCl (Dilaudid) 2 mg Q3 PRN IV SEVERE PAIN LEVEL 7-10 Last administered on 02/15/19 07:04; Admin Dose 2 MG; Start 02/13/19 at 18:30 Apixaban (Eliquis) 2.5 mg BID PO Last administered on 02/14/19at 21:55; Admin Dose 2.5 MG; Start 02/14/19 at 12:00 Miscellaneous Information (*Rx Drug Level Order Reminder*) VANCO TROUGH @ 1,200 ON... 1200 ONCE XX ; Start 02/15/19 at 12:00; Stop 02/15/19 at 12:01 Miscellaneous Information (Pending Santyl Order For Wound Care) This patient metz... PRN PRN XX WOUND CARE; Start 02/15/19 at 04:30 MARTINE PUENTES Feb 15, 2019 07:09
[2019-02-15] MEDS: LISINOPRIL 5 MG TAB PO SCH (09:00)
[2019-02-15] MEDS: INSULIN ASPART [NOVOLOG] 3 ML PEN SC SCH ×4 (10:03→20:43)
[2019-02-15] MEDS: LINAGLIPTIN 5 MG TABLET PO SCH (10:07)
[2019-02-15] MEDS: FUROSEMIDE 20 MG TAB PO SCH (10:08)
[2019-02-15] MEDS: APIXABAN 5 MG TABLET PO SCH ×2 (10:09→20:21)
[2019-02-15] MEDS: AMIODARONE 200 MG TAB PO SCH (10:09)
[2019-02-15] MEDS: CYCLOBENZAPRINE 10 MG TAB PO SCH ×2 (10:10→20:21)
[2019-02-15] MEDS: EMPAGLIFLOZIN 10 MG TABLET PO SCH (10:12)
[2019-02-15] MEDS: GABAPENTIN 300 MG CAP PO SCH (10:12)
[2019-02-15] MEDS: SENNA TAB PO PRN ×2 (10:35→20:20)
[2019-02-15] MEDS: NEOMYC/POLYMYX/BACIT 30 GM OINT TOP SCH (10:35)
[2019-02-15] MEDS: DOCUSATE SODIUM 100 MG CAP PO SCH ×2 (10:35→20:21)
[2019-02-15] MEDS: DAKINS 0.0125%(1/40) 473 ML SOLUTION TP SCH (10:36)
[2019-02-15] MEDS: CYANOCOBALAMIN 1000 MCG INJ IM SCH (13:23)
[2019-02-15] MEDS: CEFEPIME 2GM/50 ML (PMX) 50 ML IVPB SCH ×2 (13:24→20:25)
--- NOTE | 2019-02-15 14:07 | CONS ---
Assessment/Plan Assessment/Plan Hospital Course (Demo Recall) IMP: 1.Pre-op for peripheral bypass surgery. Lexiscan with no ischemia/+scar EF 28%. Echo EF 25%. OK to proceed to surgery at moderate CV risk. Now POD#3 s/p R POP- DP peripheral bypass 2.Cardiomyopathy with low EF-severely depressed by echo this admit 3.Hoth-borderline today 4.HL 5.Non-healing LE ulcer 6.PAD-severe s/p prior [employer]. Now POD#0 s/p POP to DP r side 7.DM 8. 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 Recc: -now transferred to tele -Continue digoxin -Continue coreg and zestril as tolerated only for treatment of cardiomyopathy -Continue amiodarone -Continue abx's and f/u cx data -local wound care -further outpatient eval of likely GIST tumor -Contine lasix po daily and follow volume status clsoely -pain control -Now transitioned to low dose eliquis Consultation Date/Type/Reason Admit Date/Time January 09, 2019 at 18:17 Initial Consult Date 01/10/19 Type of Consult Cardiology Reason for Consultation cardiomyopathy Requesting Provider: KRISTIN PRYOR MD Date/Time of Note DATE: 02/15/19 TIME: 14:06 Exam/Review of Systems Vital Signs Vitals Vital Signs Date Temp Pulse Resp B/P (MAP) Pulse Ox O2 O2 Flow FiO2 Time Delivery Rate 02/15/19 85 12:00 02/15/19 98.2 18 110/63 98 11:32 (79) 02/15/19 Room Air 00:45 02/13/19 8.0 13:00 Intake and Output 02/14/19 02/14/19 02/15/19 1515:00 23:00 07:00 IntakeIntake Total 709.1 ml 433.3 ml 650 ml OutputOutput Total 1340 ml 920 ml 350 ml BalanceBalance -630.9 ml -486.7 ml 300 ml Exam Exam Review of Systems: CONSTITUTIONAL: No fevers, chills. PULMONARY: No sob CARDIOVASCULAR: No chest pain/palpitations GASTROINTESTINAL: No nausea/vomiting. GENITOURINARY: No hematuria/dysuria. MUSCULOSKELETAL: pain in leg improving PSYCHIATRIC: The patient denies depression. NEUROLOGIC: No weakness Constitutional: alert, oriented Psych: no complaints Head: normocephalic ENMT: mucosa pink and moist Neck: supple, jvd (9 cm water) Respiratory: diminished breath sounds (at bases/B) Cardiovascular: regular rate and rhythm Gastrointestinal: soft, non-tender Musculoskeletal: muscle tone (normal) Extremities: edema (none) Labs Result Diagram: 02/15/19 0800 02/15/19 0800 Results 24hrs Laboratory Tests Test 02/14/19 18:59 02/14/19 21:58 02/15/19 08:00 02/15/19 09:36 Bedside Glucose 144 168 184 White Blood Count 10.6 # Red Blood Count 3.74 L Hemoglobin 10.4 L Hematocrit 34.1 L Mean Corpuscular Volume 91.2 Mean Corpuscular 27.8 L Hemoglobin Mean Corpuscular 30.5 L Hemoglobin Concent Red Cell Distribution 15.5 H Width Platelet Count 250 Mean Platelet Volume 10.7 H Immature Granulocytes % 0.500 H Neutrophils % 66.3 Lymphocytes % 16.9 Monocytes % 14.2 H Eosinophils % 1.8 Basophils % 0.3 Nucleated Red Blood 0.0 Cells % Immature Granulocytes # 0.050 H Neutrophils # 7.0 Lymphocytes # 1.8 Monocytes # 1.5 H Eosinophils # 0.2 Basophils # 0.0 Nucleated Red Blood 0.0 Cells # Sodium Level 137 Potassium Level 4.2 Chloride Level 104 Carbon Dioxide Level 28 Anion Gap 5 Blood Urea Nitrogen 11 Creatinine 0.61 Est Glomerular Filtrat > 60 Rate mL/min Glucose Level 111 Calcium Level 8.7 Test 02/15/19 12:02 02/15/19 12:03 Bedside Glucose 115 Erythrocyte 50 H Sedimentation Rate Vancomycin Level Trough 9.8 L Medications Medications Current Medications Amiodarone HCl (Cordarone) 200 mg DAILY PO Last administered on 02/15/19at 10:09; Admin Dose 200 MG; Start 01/10/19 at 09:00 Digoxin (Digoxin) 0.125 mg DAILY@1300 PO Last administered on 02/14/19at 13:09; Admin Dose 0.125 MG; Start 01/10/19 at 13:00 Gabapentin (Neurontin) 600 mg DAILY PO Last administered on 02/15/19at 10:12; Admin Dose 600 MG; Start 01/10/19 at 09:00 Empaglifozin (Jardiance) 25 mg DAILY PO Last administered on 02/15/19 10:12; Admin Dose 25 MG; Start 01/10/19 at 09:00 Linagliptin (Tradjenta) 5 mg DAILY PO Last administered on 02/15/19 10:07; Admin Dose 5 MG; Start 01/10/19 at 09:00 Diagnostic Test (Pha) (Accu-Chek) 1 ea 02 XX Last administered on 02/12/19 02:42; Admin Dose 1 EA; Start 01/10/19 at 02:00 Miscellaneous Information 1 ea NOTE XX ; Start 01/09/19 at 21:30 Glucose (Glutose) 15 gm Q15M PRN PO DECREASED GLUCOSE; Start 01/09/19 at 21:30 Glucose (Glutose) 22.5 gm Q15M PRN PO DECREASED GLUCOSE; Start 01/09/19 at 21:30 Dextrose (D50w Syringe) 50 ml Q15M PRN IV DECREASED GLUCOSE; Start 01/09/19 at 21:30 Glucagon (Glucagen) 1 mg Q15M PRN IM DECREASED GLUCOSE; Start 01/09/19 at 21:30 Glucose (Glutose) 15 gm Q15M PRN BUCCAL DECREASED GLUCOSE; Start 01/09/19 at 21:30 Insulin Glargine (Lantus) 18 units QHS SC Last administered on 02/14/19 22:03; Admin Dose 18 UNITS; Start 01/09/19 at 22:30 Carvedilol (Coreg) 3.125 mg BID PO Last administered on 02/15/19 10:13; Admin Dose 3.125 MG; Start 01/10/19 at 21:00 Vancomycin HCl (Vanco Iv Per Pharmacy) VANCOMYCIN PER PHARMACY PER PROTOCOL XX ; Start 01/11/19 at 02:30 Lisinopril (Zestril) 2.5 mg DAILY PO Last administered on 02/14/19 09:40; Admin Dose 2.5 MG; Start 01/13/19 at 09:00 Senna (Senokot) 1 tab DAILY PRN PO CONSTIPATION Last administered on 02/15/19 10:35; Admin Dose 1 TAB; Start 01/12/19 at 18:30 Neomycin/ Polymyxin/ Bacitracin (Neosporin Topical Oint) 1 applic DAILY TOP Last administered on 02/15/19 10:35; Admin Dose 1 APPLIC; Start 01/12/19 at 18:30 Cyanocobalamin (Vitamin B12 Inj) 1,000 mcg DAILY IM Last administered on 02/15/19 13:23; Admin Dose 1,000 MCG; Start 01/16/19 at 09:00 Pantoprazole (Protonix Tab) 40 mg DAILY@06 PO Last administered on 02/15/19 10:08; Admin Dose 40 MG; Start 01/17/19 at 06:00 Metronidazole 100 ml @ 100 mls/hr Q8 IVPB Last administered on 02/15/19 10:06; Admin Dose 100 MLS/HR; Start 01/16/19 at 22:00 Cefepime HCl 50 ml @ 100 mls/hr Q12 IVPB Last administered on 02/15/19 13:24; Admin Dose 100 MLS/HR; Start 01/17/19 at 21:00 Vancomycin HCl 1.25 gm/Sodium Chloride 250 ml @ 83.333 mls/ hr Q12H IVPB Last administered on 02/15/19 13:26; Admin Dose 83.333 MLS/HR; Start 01/25/19 at 01:00; Stop 02/15/19 at 18:00 Insulin Aspart (Novolog Insulin Pen) NOVOLOG *MODERATE* ALGORITHM WITH MEALS BEDTIME SC Last administered on 02/15/19 10:03; Admin Dose 4 UNIT; Start at 21:00 IV Flush (NS 10 ml) 10 ml PRN PRN IV IV PROTOCOL; Start 01/29/19 at 17:00 Docusate Sodium (Colace) 100 mg BID PO Last administered on 02/15/19 10:35; Admin Dose 100 MG; Start 02/07/19 at 21:00 Magnesium Hydroxide (Milk Of Mag) 30 ml BID PRN PO CONSTIPATION Last administered on 02/15/19 05:03; Admin Dose 30 ML; Start 02/08/19 at 14:00 Sodium Hypochlorite (Dakins Diluted ()) 1 applic DAILY TP Last administered on 02/15/19 10:36; Admin Dose 1 APPLIC; Start 02/09/19 at 13:00 Acetaminophen (Tylenol Tab) 650 mg Q4H PRN PO MILD PAIN(1-3)OR ELEVATED TEMP; Start 02/10/19 at 22:00 Ondansetron HCl (Zofran Inj) 4 mg Q6H PRN IV NAUSEA AND/OR VOMITING; Start 02/10/19 at 22:00 Furosemide (Lasix) 20 mg DAILY PO Last administered on 02/15/19 10:08; Admin Dose 20 MG; Start 02/13/19 at 09:00 Cyclobenzaprine HCl (Flexeril) 5 mg BID PO Last administered on 02/15/19 10:10; Admin Dose 5 MG; Start 02/13/19 at 09:00 Hydromorphone HCl (Dilaudid) 2 mg Q3 PRN IV SEVERE PAIN LEVEL 7-10 Last admin istered on 02/15/19 13:16; Admin Dose 2 MG; Start 02/13/19 at 18:30 Apixaban (Eliquis) 2.5 mg BID PO Last administered on 02/15/19 10:09; Admin Dose 2.5 MG; Start 02/14/19 at 12:00 Miscellaneous Information (Pending [facility] Order For Wound Care) This patient metz... PRN PRN XX WOUND CARE; Start 02/15/19 at 04:30 Vancomycin HCl 1.5 gm/Sodium Chloride 250 ml @ 83.333 mls/ hr Q12H IVPB ; Start 02/16/19 at 01:00 VERO ARELLANO Feb 15, 2019 14:07
[2019-02-15] MEDS: DIGOXIN 0.125 MG TAB PO SCH (17:22)
--- NOTE | 2019-02-15 19:19 | CONS ---
Assessment/Plan Assessment/Plan Hospital Course (Demo Recall) - s/p R pop-DP bypass with non reversed GSV harvested from the thigh with endoscopic vein harvest 02/13/2019 - polymicrobial infection of non-healing ulcer of R heel. CT on 01/10/2019 did not show evidence of OM. ESR 26 on 01/09/2019 and 37 on 01/12/2019; superficial wound culture grew pseudomonas, E. Coli, enterococcus (isolated from broth only), scant proteus, and scant CoNS. ESR 23 and repeat culture on 02/06/2019 grew pseudomonas - s/p Debridement of the right calcaneal ulceration 01/13/2019; intraop culture grew E. Coli, Proteus, and Enterococcus - chronic wound of R heel, in the past the wound culture grew E. coli. repeat culture on 02/06/2019 grew pseudomonas - h/o OM of R foot, h/o 6 weeks of IV vancomycin and ceftriaxone in 2018. 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 and needs EUS with FNA to confirm the diagnosis - trauma to R knee - anemia requiring PRBC - PAF - CAD s/p CABG - HTN - CM with EF 25% - h/o AICD placement - PVD - h/o aortogram, RLE runoff and percutaneous angioplasty of the posterior tibial artery and the anterior tibial artery in 10/2018 - DM - Hgb A1c 7.6% - HLD associated with DM Recommendations: - continue 6 weeks of vancomycin iv (01/11/2019-), cefepime (restart 01/17/2019-), and metronidazole IV (01/16/2019-) through 02/22/19 - continue local wound care with topical antiseptic (Dakin's solution) - please check weekly CBC BMP and ESR while Pt's on IV antibiotics Management discussed with patient, KAY Brian, and with Dr. Urbano Consultation Date/Type/Reason Admit Date/Time January 09, 2019 at 18:17 Initial Consult Date 01/16/19 Type of Consult Infectious Disease Requesting Provider: KRISTIN PRYOR MD Date/Time of Note DATE: 02/15/19 TIME: 19:19 24 HR Interval Summary Free Text/Dictation Pt transferred out of ICU to telemetry. Had an episode of confusion after receiving Dilaudid overnight. Pain is better controlled today. Currently rates RLE pain 7/10. Has intermittent sciatica pain on LLE rating 7/10. No n/v/d, dysuria. "Look at my (right) foot. The color is much better now (s/p bypass)". Exam/Review of Systems Exam Vitals Vital Signs Date Temp Pulse Resp B/P (MAP) Pulse Ox O2 O2 Flow FiO2 Time Delivery Rate 02/15/19 73 16:00 02/15/19 98.0 18 100/56 96 15:36 (71) 02/15/19 Room Air 00:45 02/13/19 8.0 13:00 Intake and Output 02/14/19 02/14/19 02/15/19 1515:00 23:00 07:00 IntakeIntake Total 709.1 ml 433.3 ml 650 ml OutputOutput Total 1340 ml 920 ml 350 ml BalanceBalance -630.9 ml -486.7 ml 300 ml Exam Constitutional: alert, oriented, well developed, obese, other (in no acute distress) Head: normocephalic, atraumatic Eyes: nl conjunctiva, nl lids, nl sclera ENMT: nl external ears & nose, nl nasal mucosa & septum Neck: supple Respiratory: clear to auscultation, normal air movement, other (on room air) Cardiovascular: regular rate and rhythm Gastrointestinal: soft, non-tender Genitourinary - Male: other (No Avelar) Extremities: tenderness (RLE) 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: nl mental status, nl speech Skin: nl turgor, other (RLE and R foot dressing c/d/i) Results Result Diagram: 02/15/19 0800 02/15/19 0800 Results 24hrs Laboratory Tests Test 02/14/19 21:58 02/15/19 08:00 02/15/19 09:36 02/15/19 12:02 Bedside Glucose 168 184 115 White Blood Count 10.6 # Red Blood Count 3.74 L Hemoglobin 10.4 L Hematocrit 34.1 L Mean Corpuscular Volume 91.2 Mean Corpuscular 27.8 L Hemoglobin Mean Corpuscular 30.5 L Hemoglobin Concent Red Cell Distribution 15.5 H Width Platelet Count 250 Mean Platelet Volume 10.7 H Immature Granulocytes % 0.500 H Neutrophils % 66.3 Lymphocytes % 16.9 Monocytes % 14.2 H Eosinophils % 1.8 Basophils % 0.3 Nucleated Red Blood 0.0 Cells % Immature Granulocytes # 0.050 H Neutrophils # 7.0 Lymphocytes # 1.8 Monocytes # 1.5 H Eosinophils # 0.2 Basophils # 0.0 Nucleated Red Blood 0.0 Cells # Sodium Level 137 Potassium Level 4.2 Chloride Level 104 Carbon Dioxide Level 28 Anion Gap 5 Blood Urea Nitrogen 11 Creatinine 0.61 Est Glomerular Filtrat > 60 Rate mL/min Glucose Level 111 Calcium Level 8.7 Test 02/15/19 12:03 02/15/19 17:28 Erythrocyte 50 H Sedimentation Rate Vancomycin Level Trough 9.8 L Bedside Glucose 111 Medications Medication Current Medications Amiodarone HCl (Cordarone) 200 mg DAILY PO Last administered on 02/15/19at 10:09; Admin Dose 200 MG; Start 01/10/19 at 09:00 Digoxin (Digoxin) 0.125 mg DAILY@1300 PO Last administered on 02/15/19 17:22; Admin Dose 0.125 MG; Start 01/10/19 at 13:00 Gabapentin (Neurontin) 600 mg DAILY PO Last administered on 02/15/19at 10:12; Admin Dose 600 MG; Start 01/10/19 at 09:00 Empaglifozin (Jardiance) 25 mg DAILY PO Last administered on 02/15/19 10:12; Admin Dose 25 MG; Start 01/10/19 at 09:00 Linagliptin (Tradjenta) 5 mg DAILY PO Last administered on 02/15/19at 10:07; Admin Dose 5 MG; Start 01/10/19 at 09:00 Diagnostic Test (Pha) (Accu-Chek) 1 ea 02 XX Last administered on 02/12/19at 02:42; Admin Dose 1 EA; Start 01/10/19 at 02:00 Miscellaneous Information 1 ea NOTE XX ; Start 01/09/19 at 21:30 Glucose (Glutose) 15 gm Q15M PRN PO DECREASED GLUCOSE; Start 01/09/19 at 21:30 Glucose (Glutose) 22.5 gm Q15M PRN PO DECREASED GLUCOSE; Start 01/09/19 at 21:30 Dextrose (D50w Syringe) 50 ml Q15M PRN IV DECREASED GLUCOSE; Start 01/09/19 at 21:30 Glucagon (Glucagen) 1 mg Q15M PRN IM DECREASED GLUCOSE; Start 01/09/19 at 21:30 Glucose (Glutose) 15 gm Q15M PRN BUCCAL DECREASED GLUCOSE; Start 01/09/19 at 21:30 Insulin Glargine (Lantus) 18 units QHS SC Last administered on 02/14/19 22:03; Admin Dose 18 UNITS; Start 01/09/19 at 22:30 Carvedilol (Coreg) 3.125 mg BID PO Last administered on 02/15/19 10:13; Admin Dose 3.125 MG; Start 01/10/19 at 21:00 Vancomycin HCl (Vanco Iv Per Pharmacy) VANCOMYCIN PER PHARMACY PER PROTOCOL XX ; Start 01/11/19 at 02:30 Lisinopril (Zestril) 2.5 mg DAILY PO Last administered on 02/14/19 09:40; Admin Dose 2.5 MG; Start 01/13/19 at 09:00 Senna (Senokot) 1 tab DAILY PRN PO CONSTIPATION Last administered on 02/15/19 10:35; Admin Dose 1 TAB; Start 01/12/19 at 18:30 Neomycin/ Polymyxin/ Bacitracin (Neosporin Topical Oint) 1 applic DAILY TOP Last administered on 02/15/19 10:35; Admin Dose 1 APPLIC; Start 01/12/19 at 18:30 Cyanocobalamin (Vitamin B12 Inj) 1,000 mcg DAILY IM Last administered on 02/15/19 13:23; Admin Dose 1,000 MCG; Start 01/16/19 at 09:00 Pantoprazole (Protonix Tab) 40 mg DAILY@06 PO Last administered on 02/15/19 10:08; Admin Dose 40 MG; Start 01/17/19 at 06:00 Metronidazole 100 ml @ 100 mls/hr Q8 IVPB Last administered on 02/15/19 10:06; Admin Dose 100 MLS/HR; Start 01/16/19 at 22:00 Cefepime HCl 50 ml @ 100 mls/hr Q12 IVPB Last administered on 02/15/19 13:24; Admin Dose 100 MLS/HR; Start 01/17/19 at 21:00 Insulin Aspart (Novolog Insulin Pen) NOVOLOG *MODERATE* ALGORITHM WITH MEALS BEDTIME SC Last administered on 02/15/19 10:03; Admin Dose 4 UNIT; Start 01/26/19 at 21:00 IV Flush (NS 10 ml) 10 ml PRN PRN IV IV PROTOCOL; Start 01/29/19 at 17:00 Docusate Sodium (Colace) 100 mg BID PO Last administered on 02/15/19 10:35; Admin Dose 100 MG; Start 02/07/19 at 21:00 Magnesium Hydroxide (Milk Of Mag) 30 ml BID PRN PO CONSTIPATION Last administered on 02/15/19 05:03; Admin Dose 30 ML; Start 02/08/19 at 14:00 Sodium Hypochlorite (Dakins Diluted ()) 1 applic DAILY TP Last administered on 02/15/19 10:36; Admin Dose 1 APPLIC; Start 02/09/19 at 13:00 Acetaminophen (Tylenol Tab) 650 mg Q4H PRN PO MILD PAIN(1-3)OR ELEVATED TEMP; Start 02/10/19 at 22:00 Ondansetron HCl (Zofran Inj) 4 mg Q6H PRN IV NAUSEA AND/OR VOMITING; Start 02/10/19 at 22:00 Furosemide (Lasix) 20 mg DAILY PO Last administered on 02/15/19 10:08; Admin Dose 20 MG; Start 02/13/19 at 09:00 Cyclobenzaprine HCl (Flexeril) 5 mg BID PO Last administered on 02/15/19 10:10; Admin Dose 5 MG; Start 02/13/19 at 09:00 Hydromorphone HCl (Dilaudid) 2 mg Q3 PRN IV SEVERE PAIN LEVEL 7-10 Last administered on 02/15/19 17:22; Admin Dose 2 MG; Start 02/13/19 at 18:30 Apixaban (Eliquis) 2.5 mg BID PO Last administered on 02/15/19 10:09; Admin Dose 2.5 MG; Start 02/14/19 at 12:00 Miscellaneous Information (Pending [facility] Order For Wound Care) This patient metz... PRN PRN XX WOUND CARE; Start 02/15/19 at 04:30 Vancomycin HCl 1.5 gm/Sodium Chloride 250 ml @ 83.333 mls/ hr Q12H IVPB ; Start 02/16/19 at 01:00 LE HUTCHINS NP Feb 15, 2019 19:19
[2019-02-15] MEDS: INSULIN GLARGINE [LANTus] (100 UNITS/ML) SYG SC SCH (20:43)
[2019-02-15] MEDS ORDERED: ALTEPLASE (CATHFLO) 2 MG INJ CATHETER PRN (21:00)
[2019-02-15] MEDS ORDERED: ALTEPLASE (CATHFLO) 2 MG INJ CATHETER ONE (21:00)
[2019-02-16] VITALS (10 sets, daily range): BP systolic 97–127; BP diastolic 57–75; PULSE 72–96; RESP 18–20
[2019-02-16] MEDS: VANCOMYCIN HCL 1.5 GM in SOD CHLORIDE 0.9% 250 ML IVPB SCH ×2 (00:33→13:13)
[2019-02-16] MEDS: ACCU-CHEK XX SCH (02:00)
[2019-02-16] MEDS: HYDROmorphONE 2 MG/ML SYG IV PRN ×7 (03:42→23:34)
[2019-02-16] MEDS ORDERED: ALTEPLASE (CATHFLO) 2 MG INJ CATHETER PRN (04:00)
[2019-02-16] MEDS ORDERED: ALTEPLASE (CATHFLO) 2 MG INJ CATHETER ONE (04:00)
[2019-02-16] MEDS: metroNIDAZOLE 500 MG/NS (PMX) 100 ML IVPB SCH ×3 (05:36→22:33)
[2019-02-16] MEDS: [UNRECOGNIZED DRUG - OTHER] XX SCH ×2 (06:30→22:30)
[2019-02-16] MEDS: INSULIN ASPART [NOVOLOG] 3 ML PEN SC SCH ×4 (08:00→21:00)
[2019-02-16] MEDS ORDERED: [UNRECOGNIZED DRUG - OTHER] XX SCH (09:00)
[2019-02-16] MEDS: CEFEPIME 2GM/50 ML (PMX) 50 ML IVPB SCH ×2 (09:20→20:43)
[2019-02-16] MEDS: AMIODARONE 200 MG TAB PO SCH (09:21)
[2019-02-16] MEDS: LISINOPRIL 5 MG TAB PO SCH (09:22)
[2019-02-16] MEDS: FUROSEMIDE 20 MG TAB PO SCH (09:22)
[2019-02-16] MEDS: DOCUSATE SODIUM 100 MG CAP PO SCH ×2 (09:22→20:44)
[2019-02-16] MEDS: LINAGLIPTIN 5 MG TABLET PO SCH (09:23)
[2019-02-16] MEDS: GABAPENTIN 300 MG CAP PO SCH (09:23)
[2019-02-16] MEDS: APIXABAN 5 MG TABLET PO SCH ×2 (09:23→20:44)
[2019-02-16] MEDS: CYCLOBENZAPRINE 10 MG TAB PO SCH ×2 (09:24→20:45)
[2019-02-16] MEDS: EMPAGLIFLOZIN 10 MG TABLET PO SCH (09:24)
[2019-02-16] MEDS: DAKINS 0.0125%(1/40) 473 ML SOLUTION TP SCH (09:27)
[2019-02-16] MEDS: NEOMYC/POLYMYX/BACIT 30 GM OINT TOP SCH (09:28)
--- NOTE | 2019-02-16 10:39 | QN ---
Documentation Comment No c/o. Pain is much better. AFVSS R foot warm / hyperemic, 3+ graft pulse Incisions are clean and dry, no edema - I spoke with Dr. Mata and he will arrange to dbride the heel wound VERO MAHONEY MD Feb 16, 2019 10:39
--- NOTE | 2019-02-16 11:31 | CONS ---
Assessment/Plan Assessment/Plan Hospital Course (Demo Recall) - s/p R pop-DP bypass with non reversed GSV harvested from the thigh with endoscopic vein harvest 02/13/2019 - polymicrobial infection of non-healing ulcer of R heel. CT on 01/10/2019 did not show evidence of OM. ESR 26 on 01/09/2019, 37 on 01/12/2019 and 50 on 02/15/19; superficial wound culture grew pseudomonas, E. Coli, enterococcus (isolated from broth only), scant proteus, and scant CoNS. ESR 23 and repeat culture on 02/06/2019 grew pseudomonas - s/p Debridement of the right calcaneal ulceration 01/13/2019; intraop culture grew E. Coli, Proteus, and Enterococcus - chronic wound of R heel, in the past the wound culture grew E. coli. repeat culture on 02/06/2019 grew pseudomonas - h/o OM of R foot, h/o 6 weeks of IV vancomycin and ceftriaxone in 2018. 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 and needs EUS with FNA to confirm the diagnosis - trauma to R knee - anemia requiring PRBC - PAF - CAD s/p CABG - HTN - CM with EF 25% - h/o AICD placement - PVD - h/o aortogram, RLE runoff and percutaneous angioplasty of the posterior tibial artery and the anterior tibial artery in 10/2018 - DM - Hgb A1c 7.6% - HLD associated with DM Recommendations: - continue 6 weeks of vancomycin iv (01/11/2019-), cefepime (restart 01/17/2019-), and metronidazole IV (01/16/2019-) through 02/22/19 - continue local wound care with topical antiseptic (Dakin's solution) - please check weekly CBC BMP and ESR while Pt's on IV antibiotics Management discussed with patient, and with Dr. Urbano via [employer] messaging. Consultation Date/Type/Reason Admit Date/Time January 09, 2019 at 18:17 Initial Consult Date 01/10/19 Type of Consult ID Requesting Provider: KRISTIN PRYOR MD Date/Time of Note DATE: 02/16/19 TIME: 11:28 Detailed Summary Eyes: no complaints ENT: no complaints Respiratory: no complaints Cardiovascular: no complaints Gastrointestinal: no complaints Genitourinary: no complaints Musculoskeletal: no complaints Skin: no complaints, other (reports no current pain to RLE bypass graft site or foot. States there is a planned wound debridement likely today.) Neurologic: other (pt reports the previous numbness is no longer in his RLE since the bypass was done. ) Endocrine: no complaints Lymphatic: no complaints Psychological: no complaints, nl mood/affect, other (states "appreciative and happy" that he had the procedure done and that his foot is "feeling better.") Immunologic: no complaints Exam/Review of Systems Exam Vitals Vital Signs Date Temp Pulse Resp B/P (MAP) Pulse Ox O2 O2 Flow FiO2 Time Delivery Rate 02/16/19 88 08:00 02/16/19 98.1 18 104/64 98 07:44 (77) 02/15/19 Room Air 00:45 02/13/19 8.0 13:00 Allergies Coded Allergies No Known Allergy (Unverified01/09/19) Intake and Output 02/15/19 02/15/19 02/16/19 1515:00 23:00 07:00 IntakeIntake Total 1080 ml 1710 ml 1750 ml OutputOutput Total 550 ml 3035 ml 3000 ml BalanceBalance 530 ml -1325 ml -1250 ml Exam Constitutional: alert, oriented, well developed, other (laying comfortably in bed) Psych: no complaints, nl mood/affect Head: normocephalic, atraumatic Eyes: nl conjunctiva, nl lids, nl sclera ENMT: nl external ears & nose, nl nasal mucosa & septum, mucosa pink and moist (no thrush) Neck: supple, non-tender Respiratory: clear to auscultation, normal air movement; No labored breathing, No wheezing Cardiovascular: regular rate and rhythm, nl pulses Gastrointestinal: soft, non-tender, bowel sounds (normoactive ); No tender Genitourinary - Male: other (urinal at bedside ) Musculoskeletal: nl extremities to inspection Extremities: normal pulses, other (RUE PICC site is c/d/i ) 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: [employer] II-XII intact, nl mental status, nl speech, nl strength Skin: nl turgor, other (R heel is wrapped in a c/d/i kerlix dressing. Strong palpable pulse at marked area on anterior leg above the dressing. C/d/i RLE fritz dressing) Results Result Diagram: 02/16/19 0551 02/16/19 0551 Results 24hrs Laboratory Tests Test 02/15/19 12:02 02/15/19 12:03 02/15/19 17:28 02/15/19 20:19 Bedside Glucose 115 111 194 Erythrocyte 50 H Sedimentation Rate Vancomycin Level 9.8 L Trough Test 02/16/19 01:39 02/16/19 05:51 02/16/19 07:59 Bedside Glucose 118 98 White Blood Count 9.9 Red Blood Count 3.55 L Hemoglobin 10.1 L Hematocrit 32.4 L Mean Corpuscular 91.3 Volume Mean Corpuscular 28.5 L Hemoglobin Mean Corpuscular 31.2 L Hemoglobin Concent Red Cell Distribution 15.3 H Width Platelet Count 216 Mean Platelet Volume 11.4 H Immature Granulocytes 0.300 % Neutrophils % 69.9 Lymphocytes % 16.0 Monocytes % 11.3 H Eosinophils % 2.3 Basophils % 0.2 Nucleated Red Blood 0.0 Cells % Immature Granulocytes 0.030 # Neutrophils # 6.9 Lymphocytes # 1.6 Monocytes # 1.1 H Eosinophils # 0.2 Basophils # 0.0 Nucleated Red Blood 0.0 Cells # Sodium Level 136 Potassium Level 4.1 Chloride Level 105 Carbon Dioxide Level 27 Anion Gap 4 L Blood Urea Nitrogen 12 Creatinine 0.47 L Est Glomerular > 60 Filtrat Rate mL/min Glucose Level 99 Calcium Level 8.3 L Imaging Imaging No new imaging. Medications Medication Current Medications Amiodarone HCl (Cordarone) 200 mg DAILY PO Last administered on 02/16/19 09:21; Admin Dose 200 MG; Start 01/10/19 at 09:00 Digoxin (Digoxin) 0.125 mg DAILY@1300 PO Last administered on 02/15/19 17:22; Admin Dose 0.125 MG; Start 01/10/19 at 13:00 Gabapentin (Neurontin) 600 mg DAILY PO Last administered on 02/16/19 09:23; Admin Dose 600 MG; Start 01/10/19 at 09:00 Empaglifozin (Jardiance) 25 mg DAILY PO Last administered on 02/16/19 09:24; Admin Dose 25 MG; Start 01/10/19 at 09:00 Linagliptin (Tradjenta) 5 mg DAILY PO Last administered on 02/16/19 09:23; Admin Dose 5 MG; Start 01/10/19 at 09:00 Diagnostic Test (Pha) (Accu-Chek) 1 ea 02 XX Last administered on 02/16/19 02:00; Admin Dose 1 EA; Start 01/10/19 at 02:00 Miscellaneous Information 1 ea NOTE XX ; Start 01/09/19 at 21:30 Glucose (Glutose) 15 gm Q15M PRN PO DECREASED GLUCOSE; Start 01/09/19 at 21:30 Glucose (Glutose) 22.5 gm Q15M PRN PO DECREASED GLUCOSE; Start 01/09/19 at 21:30 Dextrose (D50w Syringe) 50 ml Q15M PRN IV DECREASED GLUCOSE; Start 01/09/19 at 21:30 Glucagon (Glucagen) 1 mg Q15M PRN IM DECREASED GLUCOSE; Start 01/09/19 at 21:30 Glucose (Glutose) 15 gm Q15M PRN BUCCAL DECREASED GLUCOSE; Start 01/09/19 at 21:30 Insulin Glargine (Lantus) 18 units QHS SC Last administered on 02/15/19 20:43; Admin Dose 18 UNITS; Start 01/09/19 at 22:30 Carvedilol (Coreg) 3.125 mg BID PO Last administered on 02/16/19 09:21; Admin Dose 3.125 MG; Start 01/10/19 at 21:00 Vancomycin HCl (Vanco Iv Per Pharmacy) VANCOMYCIN PER PHARMACY PER PROTOCOL XX ; Start 01/11/19 at 02:30 Lisinopril (Zestril) 2.5 mg DAILY PO Last administered on 02/16/19 09:22; Admin Dose 2.5 MG; Start 01/13/19 at 09:00 Senna (Senokot) 1 tab DAILY PRN PO CONSTIPATION Last administered on 02/15/19 20:20; Admin Dose 1 TAB; Start 01/12/19 at 18:30 Neomycin/ Polymyxin/ Bacitracin (Neosporin Topical Oint) 1 applic DAILY TOP Last administered on 02/16/19 09:28; Admin Dose 1 APPLIC; Start 01/12/19 at 18:30 Cyanocobalamin (Vitamin B12 Inj) 1,000 mcg DAILY IM Last administered on 02/15/19 13:23; Admin Dose 1,000 MCG; Start 01/16/19 at 09:00 Pantoprazole (Protonix Tab) 40 mg DAILY@06 PO Last administered on 02/15/19 10:08; Admin Dose 40 MG; Start 01/17/19 at 06:00 Metronidazole 100 ml @ 100 mls/hr Q8 IVPB Last administered on 02/16/19 05:36; Admin Dose 100 MLS/HR; Start 01/16/19 at 22:00 Cefepime HCl 50 ml @ 100 mls/hr Q12 IVPB Last administered on 02/16/19 09:20; Admin Dose 100 MLS/HR; Start 01/17/19 at 21:00 Insulin Aspart (Novolog Insulin Pen) NOVOLOG *MODERATE* ALGORITHM WITH MEALS BEDTIME SC Last administered on 02/15/19 20:43; Admin Dose 1 UNIT; Start 01/26/19 at 21:00 IV Flush (NS 10 ml) 10 ml PRN PRN IV IV PROTOCOL; Start 01/29/19 at 17:00 Docusate Sodium (Colace) 100 mg BID PO Last administered on 02/16/19 09:22; Admin Dose 100 MG; Start 02/07/19 at 21:00 Magnesium Hydroxide (Milk Of Mag) 30 ml BID PRN PO CONSTIPATION Last administered on 02/15/19 20:20; Admin Dose 30 ML; Start 02/08/19 at 14:00 Sodium Hypochlorite (Dakins Diluted (1/40)) 1 applic DAILY TP Last administered on 02/16/19 09:27; Admin Dose 1 APPLIC; Start 02/09/19 at 13:00 Acetaminophen (Tylenol Tab) 650 mg Q4H PRN PO MILD PAIN(1-3)OR ELEVATED TEMP; Start 02/10/19 at 22:00 Ondansetron HCl (Zofran Inj) 4 mg Q6H PRN IV NAUSEA AND/OR VOMITING; Start 02/10/19 at 22:00 Furosemide (Lasix) 20 mg DAILY PO Last administered on 02/16/19 09:22; Admin Dose 20 MG; Start 02/13/19 at 09:00 Cyclobenzaprine HCl (Flexeril) 5 mg BID PO Last administered on 02/16/19 09:24; Admin Dose 5 MG; Start 02/13/19 at 09:00 Hydromorphone HCl (Dilaudid) 2 mg Q3 PRN IV SEVERE PAIN LEVEL 7-10 Last administered on 02/16/19at 09:36; Admin Dose 2 MG; Start 02/13/19 at 18:30 Apixaban (Eliquis) 2.5 mg BID PO Last administered on 02/16/19at 09:23; Admin Dose 2.5 MG; Start 02/14/19 at 12:00 [facility] This patient metz... PRN PRN XX WOUND CARE; Start 02/15/19 at 04:30 Vancomycin HCl 1.5 gm/Sodium Chloride 250 ml @ 83.333 mls/ hr Q12H IVPB Last administered on 02/16/19at 00:33; Admin Dose 83.333 MLS/HR; Start 02/16/19 at 01:00 Alteplase, Recombinant (Cathflo (Activase)) 2 mg MAY REPEAT X1 PRN CATHETER IF CATHETER REMAINS OCCULUDED; Start 02/15/19 at 21:00 Miscellaneous Information 1 ea NOTE@BID XX ; Start 02/16/19 at 09:00 Alteplase, Recombinant (Cathflo (Activase)) 2 mg MAY REPEAT X1 PRN CATHETER IF CATHETER REMAINS OCCULUDED; Start 02/16/19 at 04:00 Miscellaneous Information (*Order Clarification Bulletin) MEDICATION REQUIRES CLARIFICATI... Q8H XX ; Start 02/16/19 at 06:30 FELICITY SORTO NP Feb 16, 2019 11:31
[2019-02-16] MEDS: CYANOCOBALAMIN 1000 MCG INJ IM SCH (11:34)
--- NOTE | 2019-02-16 11:35 | CONS ---
Assessment/Plan Assessment/Plan Hospital Course (Demo Recall) IMP: 1.Pre-op for peripheral bypass surgery. Lexiscan with no ischemia/+scar EF 28%. Echo EF 25%. OK to proceed to surgery at moderate CV risk. Now POD#3 s/p R POP- DP peripheral bypass 2.Cardiomyopathy with low EF-severely depressed by echo this admit 3.Hoth-borderline today 4.HL 5.Non-healing LE ulcer 6.PAD-severe s/p prior POLICY INTERN. Now POD#0 s/p POP to DP r side 7.DM 8. 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 -Contine lasix po daily and follow volume status clsoely -pain control -Now transitioned to low dose eliquis Consultation Date/Type/Reason Admit Date/Time January 09, 2019 at 18:17 Initial Consult Date 01/10/19 Type of Consult Cardiology Reason for Consultation cardiomyopathy Requesting Provider: KRISTIN PRYOR MD Date/Time of Note DATE: 02/16/19 TIME: 11:34 Exam/Review of Systems Vital Signs Vitals Vital Signs Date Temp Pulse Resp B/P (MAP) Pulse Ox O2 O2 Flow FiO2 Time Delivery Rate 02/16/19 88 08:00 02/16/19 98.1 18 104/64 98 07:44 (77) 02/15/19 Room Air 00:45 02/13/19 8.0 13:00 Intake and Output 02/15/19 02/15/19 02/16/19 1414:59 22:59 06:59 IntakeIntake Total 1080 ml 1710 ml 1750 ml OutputOutput Total 550 ml 3035 ml 3000 ml BalanceBalance 530 ml -1325 ml -1250 ml Exam Exam Review of Systems: CONSTITUTIONAL: No fevers, chills. PULMONARY: No sob CARDIOVASCULAR: No chest pain/palpitations GASTROINTESTINAL: No nausea/vomiting. GENITOURINARY: No hematuria/dysuria. MUSCULOSKELETAL: decreased pain in foot/leg PSYCHIATRIC: The patient denies depression. NEUROLOGIC: No weakness Constitutional: alert Psych: no complaints Head: normocephalic ENMT: mucosa pink and moist Neck: supple, jvd (9 cm water) Respiratory: diminished breath sounds (at bases/B) Cardiovascular: regular rate and rhythm Gastrointestinal: soft, non-tender Musculoskeletal: muscle tone (normal) Extremities: edema (trace) 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: other (No focal deficits) Labs Result Diagram: 02/16/19 0551 02/16/19 0551 Results 24hrs Laboratory Tests Test 02/15/19 12:02 02/15/19 12:03 02/15/19 17:28 02/15/19 20:19 Bedside Glucose 115 111 194 Erythrocyte 50 H Sedimentation Rate Vancomycin Level 9.8 L Trough Test 02/16/19 01:39 02/16/19 05:51 02/16/19 07:59 Bedside Glucose 118 98 White Blood Count 9.9 Red Blood Count 3.55 L Hemoglobin 10.1 L Hematocrit 32.4 L Mean Corpuscular 91.3 Volume Mean Corpuscular 28.5 L Hemoglobin Mean Corpuscular 31.2 L Hemoglobin Concent Red Cell Distribution 15.3 H Width Platelet Count 216 Mean Platelet Volume 11.4 H Immature Granulocytes 0.300 % Neutrophils % 69.9 Lymphocytes % 16.0 Monocytes % 11.3 H Eosinophils % 2.3 Basophils % 0.2 Nucleated Red Blood 0.0 Cells % Immature Granulocytes 0.030 # Neutrophils # 6.9 Lymphocytes # 1.6 Monocytes # 1.1 H Eosinophils # 0.2 Basophils # 0.0 Nucleated Red Blood 0.0 Cells # Sodium Level 136 Potassium Level 4.1 Chloride Level 105 Carbon Dioxide Level 27 Anion Gap 4 L Blood Urea Nitrogen 12 Creatinine 0.47 L Est Glomerular > 60 Filtrat Rate mL/min Glucose Level 99 Calcium Level 8.3 L Medications Medications Current Medications Amiodarone HCl (Cordarone) 200 mg DAILY PO Last administered on 02/16/19at 09:21; Admin Dose 200 MG; Start 01/10/19 at 09:00 Digoxin (Digoxin) 0.125 mg DAILY@1300 PO Last administered on 02/15/19at 17:22; Admin Dose 0.125 MG; Start 01/10/19 at 13:00 Gabapentin (Neurontin) 600 mg DAILY PO Last administered on 02/16/19at 09:23; Admin Dose 600 MG; Start 01/10/19 at 09:00 Empaglifozin (Jardiance) 25 mg DAILY PO Last administered on 02/16/19 09:24; Admin Dose 25 MG; Start 01/10/19 at 09:00 Linagliptin (Tradjenta) 5 mg DAILY PO Last administered on 02/16/19 09:23; Admin Dose 5 MG; Start 01/10/19 at 09:00 Diagnostic Test (Pha) (Accu-Chek) 1 ea 02 XX Last administered on 02/16/19 02:00; Admin Dose 1 EA; Start 01/10/19 at 02:00 Miscellaneous Information 1 ea NOTE XX ; Start 01/09/19 at 21:30 Glucose (Glutose) 15 gm Q15M PRN PO DECREASED GLUCOSE; Start 01/09/19 at 21:30 Glucose (Glutose) 22.5 gm Q15M PRN PO DECREASED GLUCOSE; Start 01/09/19 at 21:30 Dextrose (D50w Syringe) 50 ml Q15M PRN IV DECREASED GLUCOSE; Start 01/09/19 at 21:30 Glucagon (Glucagen) 1 mg Q15M PRN IM DECREASED GLUCOSE; Start 01/09/19 at 21:30 Glucose (Glutose) 15 gm Q15M PRN BUCCAL DECREASED GLUCOSE; Start 01/09/19 at 21:30 Insulin Glargine (Lantus) 18 units QHS SC Last administered on 02/15/19 20:43; Admin Dose 18 UNITS; Start 01/09/19 at 22:30 Carvedilol (Coreg) 3.125 mg BID PO Last administered on 02/16/19 09:21; Admin Dose 3.125 MG; Start 01/10/19 at 21:00 Vancomycin HCl (Vanco Iv Per Pharmacy) VANCOMYCIN PER PHARMACY PER PROTOCOL XX ; Start 01/11/19 at 02:30 Lisinopril (Zestril) 2.5 mg DAILY PO Last administered on 02/16/19 09:22; Admin Dose 2.5 MG; Start 01/13/19 at 09:00 Senna (Senokot) 1 tab DAILY PRN PO CONSTIPATION Last administered on 02/15/19 20:20; Admin Dose 1 TAB; Start 01/12/19 at 18:30 Neomycin/ Polymyxin/ Bacitracin (Neosporin Topical Oint) 1 applic DAILY TOP Last administered on 02/16/19 09:28; Admin Dose 1 APPLIC; Start 01/12/19 at 18:30 Cyanocobalamin (Vitamin B12 Inj) 1,000 mcg DAILY IM Last administered on 02/15/19 13:23; Admin Dose 1,000 MCG; Start 01/16/19 at 09:00 Pantoprazole (Protonix Tab) 40 mg DAILY@06 PO Last administered on 02/15/19 10:08; Admin Dose 40 MG; Start 01/17/19 at 06:00 Metronidazole 100 ml @ 100 mls/hr Q8 IVPB Last administered on 02/16/19 05:36; Admin Dose 100 MLS/HR; Start 01/16/19 at 22:00 Cefepime HCl 50 ml @ 100 mls/hr Q12 IVPB Last administered on 02/16/19 09:20; Admin Dose 100 MLS/HR; Start 01/17/19 at 21:00 Insulin Aspart (Novolog Insulin Pen) NOVOLOG *MODERATE* ALGORITHM WITH MEALS BEDTIME SC Last administered on 02/15/19 20:43; Admin Dose 1 UNIT; Start 01/26/19 at 21:00 IV Flush (NS 10 ml) 10 ml PRN PRN IV IV PROTOCOL; Start 01/29/19 at 17:00 Docusate Sodium (Colace) 100 mg BID PO Last administered on 02/16/19 09:22; Admin Dose 100 MG; Start 02/07/19 at 21:00 Magnesium Hydroxide (Milk Of Mag) 30 ml BID PRN PO CONSTIPATION Last administered on 02/15/19 20:20; Admin Dose 30 ML; Start 02/08/19 at 14:00 Sodium Hypochlorite (Dakins Diluted (/40)) 1 applic DAILY TP Last administered on 02/16/19 09:27; Admin Dose 1 APPLIC; Start 02/09/19 at 13:00 Acetaminophen (Tylenol Tab) 650 mg Q4H PRN PO MILD PAIN(1-3)OR ELEVATED TEMP; Start 02/10/19 at 22:00 Ondansetron HCl (Zofran Inj) 4 mg Q6H PRN IV NAUSEA AND/OR VOMITING; Start 02/10/19 at 22:00 Furosemide (Lasix) 20 mg DAILY PO Last administered on 02/16/19 09:22; Admin Dose 20 MG; Start 02/13/19 at 09:00 Cyclobenzaprine HCl (Flexeril) 5 mg BID PO Last administered on 02/16/19at 09:24; Admin Dose 5 MG; Start 02/13/19 at 09:00 Hydromorphone HCl (Dilaudid) 2 mg Q3 PRN IV SEVERE PAIN LEVEL 7-10 Last administered on 02/16/19at 09:36; Admin Dose 2 MG; Start 02/13/19 at 18:30 Apixaban (Eliquis) 2.5 mg BID PO Last administered on 02/16/19at 09:23; Admin Dose 2.5 MG; Start 02/14/19 at 12:00 Miscellaneous Information (Pending [facility] Order For Wound Care) This patient metz... PRN PRN XX WOUND CARE; Start 02/15/19 at 04:30 Vancomycin HCl 1.5 gm/Sodium Chloride 250 ml @ 83.333 mls/ hr Q12H IVPB Last administered on 02/16/19at 00:33; Admin Dose 83.333 MLS/HR; Start 02/16/19 at 01:00 Alteplase, Recombinant (Cathflo (Activase)) 2 mg MAY REPEAT X1 PRN CATHETER IF CATHETER REMAINS OCCULUDED; Start 02/15/19 at 21:00 Miscellaneous Information 1 ea NOTE@BID XX ; Start 02/16/19 at 09:00 Alteplase, Recombinant (Cathflo (Activase)) 2 mg MAY REPEAT X1 PRN CATHETER IF CATHETER REMAINS OCCULUDED; Start 02/16/19 at 04:00 Miscellaneous Information (*Order Clarification Bulletin) MEDICATION REQUIRES CLARIFICATI... Q8H XX ; Start 02/16/19 at 06:30 VERO ARELLANO Feb 16, 2019 11:35
[2019-02-16] MEDS: DIGOXIN 0.125 MG TAB PO SCH (13:13)
--- NOTE | 2019-02-16 15:17 | EN ---
Date/Time of Note Date/Time of Note DATE: 02/16/19 TIME: 15:16 Event Note Medicine Medicine Event Note I reviewed EMR. I directed care to BENDING MACHINE OPERATOR via telemediq. cont .current plan. suspect elevated esr likely related to recent events only. DENITA WOMACK MD Feb 16, 2019 15:17
--- NOTE | 2019-02-16 15:38 | PN ---
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 Assessment/Plan -Chronic peripheral vascular disease, history of angioplasty x2. Dr. Sheppard is following in vascular surgery consultation. S/p right pop DP bypass on 02/13/19. -Right heel necrotic wound. Dr. Mata is following in podiatry consultation. Status post debridement. Continue antibiotics per ID. Dr. Urbano is following in infection disease consultation. Will require total of 6 weeks of Vancomycin IV, Cefepime IV, and Flagyl IV through 02/22/19. 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 EUS and FNA as an outpatient to confirm GIST tumor diagnosis. Continue PPI. -New onset of anemia and hypotension requiring blood transfusion on 01/15/2019, stool for OB is negative. -Coronary artery disease, status post coronary artery bypass graft. -Cardiomyopathy with ejection fraction of 25%. Continue Coreg. Dr. Foster is following in cardiology consultation. -Status post AICD. -Hx of Hypertension. -Diabetes hemoglobin A1c 7.6. Continue Lantus and NovoLog. -Right knee contusion and abrasion status post fall. Status post evaluation by Dr. Zelaya and orthopedic surgery. No signs of fracture or dystrophic dislocation. -Chronic low back pain with significant spondylolisthesis grade II at the level of L5 to S1. Status post evaluation and pain management by Dr. Robertson and pain management consultation. Further recommendations based on clinical course. Plan of care discussed with Dr. Mann. Result Diagram: 02/16/19 0551 02/16/19 0551 Results 24hrs Laboratory Tests Test 02/15/19 17:28 02/15/19 20:19 02/16/19 01:39 02/16/19 05:51 Bedside Glucose 111 194 118 White Blood Count 9.9 Red Blood Count 3.55 L Hemoglobin 10.1 L Hematocrit 32.4 L Mean Corpuscular 91.3 Volume Mean Corpuscular 28.5 L Hemoglobin Mean Corpuscular 31.2 L Hemoglobin Concent Red Cell 15.3 H Distribution Width Platelet Count 216 Mean Platelet Volume 11.4 H Immature 0.300 Granulocytes % Neutrophils % 69.9 Lymphocytes % 16.0 Monocytes % 11.3 H Eosinophils % 2.3 Basophils % 0.2 Nucleated Red Blood 0.0 Cells % Immature 0.030 Granulocytes # Neutrophils # 6.9 Lymphocytes # 1.6 Monocytes # 1.1 H Eosinophils # 0.2 Basophils # 0.0 Nucleated Red Blood 0.0 Cells # Sodium Level 136 Potassium Level 4.1 Chloride Level 105 Carbon Dioxide Level 27 Anion Gap 4 L Blood Urea Nitrogen 12 Creatinine 0.47 L Est Glomerular > 60 Filtrat Rate mL/min Glucose Level 99 Calcium Level 8.3 L Test 02/16/19 07:59 02/16/19 12:12 Bedside Glucose 98 120 Exam/Review of Systems Exam Vitals Vital Signs Date Temp Pulse Resp B/P (MAP) Pulse Ox O2 O2 Flow FiO2 Time Delivery Rate 02/16/19 97.9 85 18 127/75 97 12:11 (92) 02/15/19 Room Air 00:45 02/13/19 8.0 13:00 Intake and Output 02/15/19 02/15/19 02/16/19 1515:00 23:00 07:00 IntakeIntake Total 1080 ml 1710 ml 1750 ml OutputOutput Total 550 ml 3035 ml 3000 ml BalanceBalance 530 ml -1325 ml -1250 ml Exam Constitutional: alert, oriented Respiratory: clear to auscultation Cardiovascular: regular rhythm and rate, AICD Gastrointestinal: soft, non-tender Extremities: normal pulses, other (Right heel wound, R leg surgical incision covered with dressing) RUE PICC Results Results 24hrs Laboratory Tests Test 02/15/19 17:28 02/15/19 20:19 02/16/19 01:39 02/16/19 05:51 Bedside Glucose 111 194 118 White Blood Count 9.9 Red Blood Count 3.55 L Hemoglobin 10.1 L Hematocrit 32.4 L Mean Corpuscular 91.3 Volume Mean Corpuscular 28.5 L Hemoglobin Mean Corpuscular 31.2 L Hemoglobin Concent Red Cell 15.3 H Distribution Width Platelet Count 216 Mean Platelet Volume 11.4 H Immature 0.300 Granulocytes % Neutrophils % 69.9 Lymphocytes % 16.0 Monocytes % 11.3 H Eosinophils % 2.3 Basophils % 0.2 Nucleated Red Blood 0.0 Cells % Immature 0.030 Granulocytes # Neutrophils # 6.9 Lymphocytes # 1.6 Monocytes # 1.1 H Eosinophils # 0.2 Basophils # 0.0 Nucleated Red Blood 0.0 Cells # Sodium Level 136 Potassium Level 4.1 Chloride Level 105 Carbon Dioxide Level 27 Anion Gap 4 L Blood Urea Nitrogen 12 Creatinine 0.47 L Est Glomerular > 60 Filtrat Rate mL/min Glucose Level 99 Calcium Level 8.3 L Test 02/16/19 07:59 02/16/19 12:12 Bedside Glucose 98 120 Medications Medication Current Medications Amiodarone HCl (Cordarone) 200 mg DAILY PO Last administered on 02/16/19 09:21; Admin Dose 200 MG; Start 01/10/19 at 09:00 Digoxin (Digoxin) 0.125 mg DAILY@1300 PO Last administered on 02/16/19 13:13; Admin Dose 0.125 MG; Start 01/10/19 at 13:00 Gabapentin (Neurontin) 600 mg DAILY PO Last administered on 02/16/19 09:23; Admin Dose 600 MG; Start 01/10/19 at 09:00 Empaglifozin (Jardiance) 25 mg DAILY PO Last administered on 02/16/19 09:24; Admin Dose 25 MG; Start 01/10/19 at 09:00 Linagliptin (Tradjenta) 5 mg DAILY PO Last administered on 02/16/19 09:23; Admin Dose 5 MG; Start 01/10/19 at 09:00 Diagnostic Test (Pha) (Accu-Chek) 1 ea 02 XX Last administered on 02/16/19 02:00; Admin Dose 1 EA; Start 01/10/19 at 02:00 Miscellaneous Information 1 ea NOTE XX ; Start 01/09/19 at 21:30 Glucose (Glutose) 15 gm Q15M PRN PO DECREASED GLUCOSE; Start 01/09/19 at 21:30 Glucose (Glutose) 22.5 gm Q15M PRN PO DECREASED GLUCOSE; Start 01/09/19 at 21:30 Dextrose (D50w Syringe) 50 ml Q15M PRN IV DECREASED GLUCOSE; Start 01/09/19 at 21:30 Glucagon (Glucagen) 1 mg Q15M PRN IM DECREASED GLUCOSE; Start 01/09/19 at 21:30 Glucose (Glutose) 15 gm Q15M PRN BUCCAL DECREASED GLUCOSE; Start 01/09/19 at 21:30 Insulin Glargine (Lantus) 18 units QHS SC Last administered on 02/15/19 20:43; Admin Dose 18 UNITS; Start 01/09/19 at 22:30 Carvedilol (Coreg) 3.125 mg BID PO Last administered on 02/16/19 09:21; Admin Dose 3.125 MG; Start 01/10/19 at 21:00 Vancomycin HCl (Vanco Iv Per Pharmacy) VANCOMYCIN PER PHARMACY PER PROTOCOL XX ; Start 01/11/19 at 02:30 Lisinopril (Zestril) 2.5 mg DAILY PO Last administered on 02/16/19 09:22; Admin Dose 2.5 MG; Start 01/13/19 at 09:00 Senna (Senokot) 1 tab DAILY PRN PO CONSTIPATION Last administered on 02/15/19 20:20; Admin Dose 1 TAB; Start 01/12/19 at 18:30 Neomycin/ Polymyxin/ Bacitracin (Neosporin Topical Oint) 1 applic DAILY TOP Last administered on 02/16/19 09:28; Admin Dose 1 APPLIC; Start 01/12/19 at 18:30 Cyanocobalamin (Vitamin B12 Inj) 1,000 mcg DAILY IM Last administered on 02/16/19 11:34; Admin Dose 1,000 MCG; Start 01/16/19 at 09:00 Pantoprazole (Protonix Tab) 40 mg DAILY@06 PO Last administered on 02/15/19 10:08; Admin Dose 40 MG; Start 01/17/19 at 06:00 Metronidazole 100 ml @ 100 mls/hr Q8 IVPB Last administered on 02/16/19 14:07; Admin Dose 100 MLS/HR; Start 01/16/19 at 22:00 Cefepime HCl 50 ml @ 100 mls/hr Q12 IVPB Last administered on 02/16/19 09:20; Admin Dose 100 MLS/HR; Start 01/17/19 at 21:00 Insulin Aspart (Novolog Insulin Pen) NOVOLOG *MODERATE* ALGORITHM WITH MEALS BEDTIME SC Last administered on 02/15/19 20:43; Admin Dose 1 UNIT; Start 01/26/19 at 21:00 IV Flush (NS 10 ml) 10 ml PRN PRN IV IV PROTOCOL; Start 01/29/19 at 17:00 Docusate Sodium (Colace) 100 mg BID PO Last administered on 02/16/19 09:22; Admin Dose 100 MG; Start 02/07/19 at 21:00 Magnesium Hydroxide (Milk Of Mag) 30 ml BID PRN PO CONSTIPATION Last adm inistered on 02/15/19 20:20; Admin Dose 30 ML; Start 02/08/19 at 14:00 Sodium Hypochlorite (Dakins Diluted ()) 1 applic DAILY TP Last administered on 02/16/19 09:27; Admin Dose 1 APPLIC; Start 02/09/19 at 13:00 Acetaminophen (Tylenol Tab) 650 mg Q4H PRN PO MILD PAIN(1-3)OR ELEVATED TEMP; Start 02/10/19 at 22:00 Ondansetron HCl (Zofran Inj) 4 mg Q6H PRN IV NAUSEA AND/OR VOMITING; Start 02/10/19 at 22:00 Furosemide (Lasix) 20 mg DAILY PO Last administered on 02/16/19 09:22; Admin Dose 20 MG; Start 02/13/19 at 09:00 Cyclobenzaprine HCl (Flexeril) 5 mg BID PO Last administered on 02/16/19 0 9:24; Admin Dose 5 MG; Start 02/13/19 at 09:00 Hydromorphone HCl (Dilaudid) 2 mg Q3 PRN IV SEVERE PAIN LEVEL 7-10 Last administered on 02/16/19 13:08; Admin Dose 2 MG; Start 02/13/19 at 18:30 Apixaban (Eliquis) 2.5 mg BID PO Last administered on 02/16/19 09:23; Admin Dose 2.5 MG; Start 02/14/19 at 12:00 [facility]isc[facility] Information [facility] This patient metz... PRN PRN XX WOUND CARE; Start 02/15/19 at 04:30 Vancomycin HCl 1.5 gm/Sodium Chloride 250 ml @ 83.333 mls/ hr Q12H IVPB Last administered on 02/16/19at 13:13; Admin Dose 83.333 MLS/HR; Start 02/16/19 at 01:00 Alteplase, Recombinant (Cathflo (Activase)) 2 mg MAY REPEAT X1 PRN CATHETER IF CATHETER REMAINS OCCULUDED; Start 02/15/19 at 21:00 Alteplase, Recombinant (Cathflo (Activase)) 2 mg MAY REPEAT X1 PRN CATHETER IF CATHETER REMAINS OCCULUDED; Start 02/16/19 at 04:00 Miscellaneous Information (*Order Clarification Bulletin) MEDICATION REQUIRES CLARIFICATI... Q8H XX ; Start 02/16/19 at 06:30 Miscellaneous Information (*Rx Drug Level Order Reminder*) VANCO TROUGH @ 1,200 ON... 1200 ONCE XX ; Start 02/17/19 at 12:00; Stop 02/17/19 at 12:01 RAMESH SOLORZANO Feb 16, 2019 15:38
[2019-02-16] MEDS ORDERED: LACTATED RINGER'S 1,000 ML IV SCH (16:07)
--- NOTE | 2019-02-16 16:20 | CONS ---
Assessment/Plan Assessment/Plan Hospital Course (Demo Recall) Dressing change. Use Silver aliginate with daily dressing change. Assessment/Plan (Daily) Scheduled for debridement of the right calcaneal ulceration. Application of allograft. Scheduled around noon. Consultation Date/Type/Reason Admit Date/Time January 09, 2019 at 18:17 Initial Consult Date 01/16/19 Requesting Provider: KRISTIN PRYOR MD Date/Time of Note DATE: 02/16/19 TIME: 16:16 Exam/Review of Systems Exam Vitals Vital Signs Date Temp Pulse Resp B/P (MAP) Pulse Ox O2 O2 Flow FiO2 Time Delivery Rate 02/16/19 98.4 76 18 120/61 98 15:59 (80) 02/15/19 Room Air 00:45 02/13/19 8.0 13:00 Intake and Output 02/15/19 02/15/19 02/16/19 1515:00 23:00 07:00 IntakeIntake Total 1080 ml 1710 ml 1750 ml OutputOutput Total 550 ml 3035 ml 3000 ml BalanceBalance 530 ml -1325 ml -1250 ml Musculoskeletal: nl extremities to inspection, nl gait and stance, joint tenderness, muscle tone, muscle weakness, range of motion, spine non-tender, swelling, other Results Result Diagram: 02/16/19 0551 02/16/19 0551 Results 24hrs Laboratory Tests Test 02/15/19 17:28 02/15/19 20:19 02/16/19 01:39 02/16/19 05:51 Bedside Glucose 111 194 118 White Blood Count 9.9 Red Blood Count 3.55 L Hemoglobin 10.1 L Hematocrit 32.4 L Mean Corpuscular 91.3 Volume Mean Corpuscular 28.5 L Hemoglobin Mean Corpuscular 31.2 L Hemoglobin Concent Red Cell 15.3 H Distribution Width Platelet Count 216 Mean Platelet Volume 11.4 H Immature 0.300 Granulocytes % Neutrophils % 69.9 Lymphocytes % 16.0 Monocytes % 11.3 H Eosinophils % 2.3 Basophils % 0.2 Nucleated Red Blood 0.0 Cells % Immature 0.030 Granulocytes # Neutrophils # 6.9 Lymphocytes # 1.6 Monocytes # 1.1 H Eosinophils # 0.2 Basophils # 0.0 Nucleated Red Blood 0.0 Cells # Sodium Level 136 Potassium Level 4.1 Chloride Level 105 Carbon Dioxide Level 27 Anion Gap 4 L Blood Urea Nitrogen 12 Creatinine 0.47 L Est Glomerular > 60 Filtrat Rate mL/min Glucose Level 99 Calcium Level 8.3 L Test 02/16/19 07:59 02/16/19 12:12 Bedside Glucose 98 120 Medications Medication Current Medications Amiodarone HCl (Cordarone) 200 mg DAILY PO Last administered on 02/16/19 09:21; Admin Dose 200 MG; Start 01/10/19 at 09:00 Digoxin (Digoxin) 0.125 mg DAILY@1300 PO Last administered on 02/16/19 13:13; Admin Dose 0.125 MG; Start 01/10/19 at 13:00 Gabapentin (Neurontin) 600 mg DAILY PO Last administered on 02/16/19 09:23; Admin Dose 600 MG; Start 01/10/19 at 09:00 Empaglifozin (Jardiance) 25 mg DAILY PO Last administered on 02/16/19 09:24; Admin Dose 25 MG; Start 01/10/19 at 09:00 Linagliptin (Tradjenta) 5 mg DAILY PO Last administered on 02/16/19 09:23; Admin Dose 5 MG; Start 01/10/19 at 09:00 Diagnostic Test (Pha) (Accu-Chek) 1 ea 02 XX Last administered on 02/16/19at 02:00; Admin Dose 1 EA; Start 01/10/19 at 02:00 Miscellaneous Information 1 ea NOTE XX ; Start 01/09/19 at 21:30 Glucose (Glutose) 15 gm Q15M PRN PO DECREASED GLUCOSE; Start 01/09/19 at 21:30 Glucose (Glutose) 22.5 gm Q15M PRN PO DECREASED GLUCOSE; Start 01/09/19 at 21:30 Dextrose (D50w Syringe) 50 ml Q15M PRN IV DECREASED GLUCOSE; Start 01/09/19 at 21:30 Glucagon (Glucagen) 1 mg Q15M PRN IM DECREASED GLUCOSE; Start 01/09/19 at 21:30 Glucose (Glutose) 15 gm Q15M PRN BUCCAL DECREASED GLUCOSE; Start 01/09/19 at 21:30 Insulin Glargine (Lantus) 18 units QHS SC Last administered on 02/15/19at 20:43; Admin Dose 18 UNITS; Start 01/09/19 at 22:30 Carvedilol (Coreg) 3.125 mg BID PO Last administered on 02/16/19 09:21; Admin Dose 3.125 MG; Start 01/10/19 at 21:00 Vancomycin HCl (Vanco Iv Per Pharmacy) VANCOMYCIN PER PHARMACY PER PROTOCOL XX ; Start 01/11/19 at 02:30 Lisinopril (Zestril) 2.5 mg DAILY PO Last administered on 02/16/19 09:22; Admin Dose 2.5 MG; Start 01/13/19 at 09:00 Senna (Senokot) 1 tab DAILY PRN PO CONSTIPATION Last administered on 02/15/19 20:20; Admin Dose 1 TAB; Start 01/12/19 at 18:30 Neomycin/ Polymyxin/ Bacitracin (Neosporin Topical Oint) 1 applic DAILY TOP Last administered on 02/16/19 09:28; Admin Dose 1 APPLIC; Start 01/12/19 at 18:30 Cyanocobalamin (Vitamin B12 Inj) 1,000 mcg DAILY IM Last administered on 02/16/19 11:34; Admin Dose 1,000 MCG; Start 01/16/19 at 09:00 Pantoprazole (Protonix Tab) 40 mg DAILY@06 PO Last administered on 02/15/19 10:08; Admin Dose 40 MG; Start 01/17/19 at 06:00 Metronidazole 100 ml @ 100 mls/hr Q8 IVPB Last administered on 02/16/19 14:07; Admin Dose 100 MLS/HR; Start 01/16/19 at 22:00 Cefepime HCl 50 ml @ 100 mls/hr Q12 IVPB Last administered on 02/16/19 09:20; Admin Dose 100 MLS/HR; Start 01/17/19 at 21:00 Insulin Aspart (Novolog Insulin Pen) NOVOLOG *MODERATE* ALGORITHM WITH MEALS BEDTIME SC Last administered on 02/15/19 20:43; Admin Dose 1 UNIT; Start 01/26/19 at 21:00 IV Flush (NS 10 ml) 10 ml PRN PRN IV IV PROTOCOL; Start 01/29/19 at 17:00 Docusate Sodium (Colace) 100 mg BID PO Last administered on 02/16/19 09:22; Admin Dose 100 MG; Start 02/07/19 at 21:00 Magnesium Hydroxide (Milk Of Mag) 30 ml BID PRN PO CONSTIPATION Last administered on 02/15/19 20:20; Admin Dose 30 ML; Start 02/08/19 at 14:00 Sodium Hypochlorite (Dakins Diluted ()) 1 applic DAILY TP Last administered on 02/16/19 09:27; Admin Dose 1 APPLIC; Start 02/09/19 at 13:00 Acetaminophen (Tylenol Tab) 650 mg Q4H PRN PO MILD PAIN(1-3)OR ELEVATED TEMP; Start 02/10/19 at 22:00 Ondansetron HCl (Zofran Inj) 4 mg Q6H PRN IV NAUSEA AND/OR VOMITING; Start 02/10/19 at 22:00 Furosemide (Lasix) 20 mg DAILY PO Last administered on 02/16/19 09:22; Admin Dose 20 MG; Start 02/13/19 at 09:00 Cyclobenzaprine HCl (Flexeril) 5 mg BID PO Last administered on 02/16/19 09:24; Admin Dose 5 MG; Start 02/13/19 at 09:00 Hydromorphone HCl (Dilaudid) 2 mg Q3 PRN IV SEVERE PAIN LEVEL 7-10 Last administered on 02/16/19 13:08; Admin Dose 2 MG; Start 02/13/19 at 18:30 Apixaban (Eliquis) 2.5 mg BID PO Last administered on 02/16/19 09:23; Admin Dose 2.5 MG; Start 02/14/19 at 12:00 [facility]iscellaneous [facility] This patient metz... PRN PRN XX WOUND CARE; Start 02/15/19 at 04:30 Vancomycin HCl 1.5 gm/Sodium Chloride 250 ml @ 83.333 mls/ hr Q12H IVPB Last administered on 02/16/19 13:13; Admin Dose 83.333 MLS/HR; Start 02/16/19 at 01:00 Alteplase, Recombinant (Cathflo (Activase)) 2 mg MAY REPEAT X1 PRN CATHETER IF CATHETER REMAINS OCCULUDED; Start 02/15/19 at 21:00 Alteplase, Recombinant (Cathflo (Activase)) 2 mg MAY REPEAT X1 PRN CATHETER IF CATHETER REMAINS OCCULUDED; Start 02/16/19 at 04:00 Miscellaneous Information (*Order Clarification Bulletin) MEDICATION REQUIRES CLARIFICATI... Q8H XX ; Start 02/16/19 at 06:30 Miscellaneous Information (*Rx Drug Level Order Reminder*) VANCO TROUGH @ 1,200 ON... 1200 ONCE XX ; Start 02/17/19 at 12:00; Stop 02/17/19 at 12:01 KIM ODELL DPM Feb 16, 2019 16:20
[2019-02-16] MEDS ORDERED: CEFAZOLIN 1 GM/50 ML (PMX) 50 ML IVPB ONE (16:30)
[2019-02-16] MEDS: INSULIN GLARGINE [LANTus] (100 UNITS/ML) SYG SC SCH (22:38)
[2019-02-17] VITALS (9 sets, daily range): BP systolic 96–118; BP diastolic 53–65; PULSE 73–97; RESP 18–20
[2019-02-17] MEDS: VANCOMYCIN HCL 1.5 GM in SOD CHLORIDE 0.9% 250 ML IVPB SCH ×2 (01:32→11:54)
[2019-02-17] MEDS: HYDROmorphONE 2 MG/ML SYG IV PRN ×6 (02:35→21:52)
[2019-02-17] MEDS: ACCU-CHEK XX SCH (02:35)
[2019-02-17] MEDS: PANTOPRAZOLE (EC) 40 MG TAB PO SCH (06:27)
[2019-02-17] MEDS: metroNIDAZOLE 500 MG/NS (PMX) 100 ML IVPB SCH ×3 (06:27→22:33)
[2019-02-17] MEDS: INSULIN ASPART [NOVOLOG] 3 ML PEN SC SCH ×4 (08:00→22:03)
[2019-02-17] MEDS: NEOMYC/POLYMYX/BACIT 30 GM OINT TOP SCH (09:00)
--- NOTE | 2019-02-17 09:20 | CONS ---
Consult Date/Type/Reason Admit Date/Time January 09, 2019 at 18:17 Initial Consult Date 01/10/19 Requesting Provider: KRISTIN PRYOR MD Date/Time of Note DATE: 02/17/19 TIME: 09:18 Subjective NO acute events - no CP- con't post op care. ROS: No fever, no chills, no nausea, no vomiting, no diarrhea/constipation No recent weight changes No chest pain, no PND, no orthopnea No dizziness, blurred vision No thirst, no heat or cold intolerance Objective Vitals Vital Signs Date Temp Pulse Resp B/P (MAP) Pulse Ox O2 O2 Flow FiO2 Time Delivery Rate 02/17/19 73 08:24 02/17/19 97.9 18 113/63 98 07:17 (80) 02/15/19 Room Air 00:45 02/13/19 8.0 13:00 Intake and Output 02/16/19 02/16/19 02/17/19 1515:00 23:00 07:00 IntakeIntake Total 240 ml 1960 ml 800 ml OutputOutput Total 400 ml 2600 ml 2000 ml BalanceBalance -160 ml -640 ml -1200 ml Exam General: WN/WD/NAD, AOx 3 HEENT: Unicetric/atraumatic/EOMI ( follow commands) NECK: JVD elevated, no thyromegaly Lymph: no lymphadenopathy HEART: regular with no S3, II/ systolic murmur at apex LUNGS: Coarse sounds ABD: soft, NT, ND, +BS : Intact Neuro: non focal SKIN: chronic changes EXT: trace edema, post op stable pulse Results/Medications Result Diagram: 02/16/19 0551 02/16/19 0551 Results 24 hrs Laboratory Tests Test 02/16/19 12:12 02/16/19 17:34 02/16/19 20:49 02/17/19 02:34 Bedside Glucose 120 122 136 107 Test 02/17/19 08:10 Bedside Glucose 115 Home Meds Reported Medications Amiodarone Hcl* (Amiodarone Hcl*) 200 Mg Tablet, 200 MG PO DAILY, #30 TAB 01/09/19 Digoxin* (Digitek*) 125 Mcg Tablet, 0.125 MG PO DAILY, TAB 01/09/19 Rivaroxaban* (Xarelto*) 20 Mg Tablet, 20 MG PO WITH DINNER, TAB 01/09/19 Clopidogrel Bisulfate* (Clopidogrel Bisulfate*) 75 Mg Tablet, 75 MG PO DAILY, #30 TAB 01/09/19 Empagliflozin (Jardiance) 25 Mg Tablet, 25 MG PO DAILY, TAB 01/09/19 Insulin Glargine,Hum.rec.anlog (Basaglar Kwikpen U-100) 100 Unit/1 Ml Insuln.pen, 18 UNIT SC QHS, EA 01/09/19 Sulfamethoxazole/Trimethoprim* (Bactrim Ds* Tablet) 1 Each Tablet, 1 TAB PO BID, TAB FOR 10 DAYS,START TAKING 01/06/19 01/09/19 Tapentadol Hcl (Nucynta) 100 Mg Tablet, 100 MG PO BID, TAB 01/09/19 Gabapentin* (Gabapentin*) 600 Mg Tablet, 600 MG PO DAILY, #60 TAB 01/09/19 Metformin Hcl* (Metformin Hcl*) 1,000 Mg Tablet, 1000 MG PO WITH BREAKFAST DINNE, #60 TAB 01/09/19 Medications Current Medications Amiodarone HCl (Cordarone) 200 mg DAILY PO Last administered on 02/16/19at 09:21; Admin Dose 200 MG; Start 01/10/19 at 09:00 Digoxin (Digoxin) 0.125 mg DAILY@1300 PO Last administered on 02/16/19at 13:13; Admin Dose 0.125 MG; Start 01/10/19 at 13:00 Gabapentin (Neurontin) 600 mg DAILY PO Last administered on 02/16/19 09:23; Admin Dose 600 MG; Start 01/10/19 at 09:00 Empaglifozin (Jardiance) 25 mg DAILY PO Last administered on 02/16/19at 09:24; Admin Dose 25 MG; Start 01/10/19 at 09:00 Linagliptin (Tradjenta) 5 mg DAILY PO Last administered on 02/16/19at 09:23; Admin Dose 5 MG; Start 01/10/19 at 09:00 Diagnostic Test (Pha) (Accu-Chek) 1 ea 02 XX Last administered on 02/17/19at 02:35; Admin Dose 1 EA; Start 01/10/19 at 02:00 Miscellaneous Information 1 ea NOTE XX ; Start 01/09/19 at 21:30 Glucose (Glutose) 15 gm Q15M PRN PO DECREASED GLUCOSE; Start 01/09/19 at 21:30 Glucose (Glutose) 22.5 gm Q15M PRN PO DECREASED GLUCOSE; Start 01/09/19 at 21:30 Dextrose (D50w Syringe) 50 ml Q15M PRN IV DECREASED GLUCOSE; Start 01/09/19 at 21:30 Glucagon (Glucagen) 1 mg Q15M PRN IM DECREASED GLUCOSE; Start 01/09/19 at 21:30 Glucose (Glutose) 15 gm Q15M PRN BUCCAL DECREASED GLUCOSE; Start 01/09/19 at 21:30 Insulin Glargine (Lantus) 18 units QHS SC Last administered on 02/16/19 22:38; Admin Dose 18 UNITS; Start 01/09/19 at 22:30 Carvedilol (Coreg) 3.125 mg BID PO Last administered on 02/16/19 09:21; Admin Dose 3.125 MG; Start 01/10/19 at 21:00 Vancomycin HCl (Vanco Iv Per Pharmacy) VANCOMYCIN PER PHARMACY PER PROTOCOL XX ; Start 01/11/19 at 02:30 Lisinopril (Zestril) 2.5 mg DAILY PO Last administered on 02/16/19 09:22; Admin Dose 2.5 MG; Start 01/13/19 at 09:00 Senna (Senokot) 1 tab DAILY PRN PO CONSTIPATION Last administered on 02/15/19 20:20; Admin Dose 1 TAB; Start 01/12/19 at 18:30 Neomycin/ Polymyxin/ Bacitracin (Neosporin Topical Oint) 1 applic DAILY TOP Last administered on 02/16/19 09:28; Admin Dose 1 APPLIC; Start 01/12/19 at 18:30 Cyanocobalamin (Vitamin B12 Inj) 1,000 mcg DAILY IM Last administered on 02/16/19 11:34; Admin Dose 1,000 MCG; Start 01/16/19 at 09:00 Pantoprazole (Protonix Tab) 40 mg DAILY@06 PO Last administered on 02/17/19 06:27; Admin Dose 40 MG; Start 01/17/19 at 06:00 Metronidazole 100 ml @ 100 mls/hr Q8 IVPB Last administered on 02/17/19 06:27; Admin Dose 100 MLS/HR; Start 01/16/19 at 22:00 Cefepime HCl 50 ml @ 100 mls/hr Q12 IVPB Last administered on 02/16/19 20:43; Admin Dose 100 MLS/HR; Start 01/17/19 at 21:00 Insulin Aspart (Novolog Insulin Pen) NOVOLOG *MODERATE* ALGORITHM WITH MEALS BEDTIME SC Last administered on 02/15/19 20:43; Admin Dose 1 UNIT; Start 01/26/19 at 21:00 IV Flush (NS 10 ml) 10 ml PRN PRN IV IV PROTOCOL; Start 01/29/19 at 17:00 Docusate Sodium (Colace) 100 mg BID PO Last administered on 02/16/19 20:44; Admin Dose 100 MG; Start 02/07/19 at 21:00 Magnesium Hydroxide (Milk Of Mag) 30 ml BID PRN PO CONSTIPATION Last administered on 02/15/19 20:20; Admin Dose 30 ML; Start 02/08/19 at 14:00 Sodium Hypochlorite (Dakins Diluted ()) 1 applic DAILY TP Last administered on 02/16/19 09:27; Admin Dose 1 APPLIC; Start 02/09/19 at 13:00 Acetaminophen (Tylenol Tab) 650 mg Q4H PRN PO MILD PAIN(1-3)OR ELEVATED TEMP; Start 02/10/19 at 22:00 Ondansetron HCl (Zofran Inj) 4 mg Q6H PRN IV NAUSEA AND/OR VOMITING; Start 02/10/19 at 22:00 Furosemide (Lasix) 20 mg DAILY PO Last administered on 02/16/19 09:22; Admin Dose 20 MG; Start 02/13/19 at 09:00 Cyclobenzaprine HCl (Flexeril) 5 mg BID PO Last administered on 02/16/19 20:45; Admin Dose 5 MG; Start 02/13/19 at 09:00 Hydromorphone HCl (Dilaudid) 2 mg Q3 PRN IV SEVERE PAIN LEVEL 7-10 Last administered on 02/17/19 06:29; Admin Dose 2 MG; Start 02/13/19 at 18:30 Apixaban (Eliquis) 2.5 mg BID PO Last administered on 02/16/19 20:44; Admin Dose 2.5 MG; Start 02/14/19 at 12:00 Miscellaneous Information (Pending [facility] Order For Wound Care) This patient metz... PRN PRN XX WOUND CARE; Start 02/15/19 at 04:30 Vancomycin HCl 1.5 gm/Sodium Chloride 250 ml @ 83.333 mls/ hr Q12H IVPB Last administered on 02/17/19at 01:32; Admin Dose 83.333 MLS/HR; Start 02/16/19 at 01:00 Alteplase, Recombinant (Cathflo (Activase)) 2 mg MAY REPEAT X1 PRN CATHETER IF CATHETER REMAINS OCCULUDED; Start 02/15/19 at 21:00 Alteplase, Recombinant (Cathflo (Activase)) 2 mg MAY REPEAT X1 PRN CATHETER IF CATHETER REMAINS OCCULUDED; Start 02/16/19 at 04:00 Miscellaneous Information (*Order Clarification Bulletin) MEDICATION REQUIRES CLARIFICATI... Q8H XX ; Start 02/16/19 at 06:30 Miscellaneous Information (*Rx Drug Level Order Reminder*) VANCO TROUGH @ 1,200 ON... 1200 ONCE XX ; Start 02/17/19 at 12:00; Stop 02/17/19 at 12:01 Lactated Ringer's 1,000 ml @ 100 mls/hr Q10H IV ; Start 02/16/19 at 16:07 Miscellaneous Information (*Order Clarification Bulletin) MEDICATION REQUIRES CLARIFICATI... Q8H XX ; Start 02/16/19 at 22:00; Stop 02/19/19 at 00:00 Assessment/Plan Hospital Course (Demo Recall) 1.Pre-op for peripheral bypass surgery. Lexiscan with no ischemia/+scar EF 28%. Echo EF 25%. OK to proceed to surgery at moderate CV risk - stable now - on hold for now - con't wound care. Treated. Pt planned for EGD - OK to proceed if needed from cardiac standpoint. Awaiting surgical dispo now for foot care. Dispo planned Saturday. Tolerated pain Ok -con;t to follow. 2.Cardiomyopathy with low EF-severely depressed by echo this admit - mild CHF, con't gentle diuresis - stable fluid satus. BiV upgrade planned per Dr. Polo. [place]on. Defer to DR. Polol. Dubon overall. No ectopy on tele. 3.HTN - well Rx - on therapy now - in good range now. TREATED. On meds. 4.HL 5.Non-healing LE ulcer - in bandage, will follow - con't wound care. Pain better Rx. Wound care in place. 6.PAD-severe s/p prior [employer] 7.DM - on meds, keep euglycemic 8. A. Fib - in sinus now, paroxysmal - on amio - Controlled now at 10.1 MIGUEL WADE MD Feb 17, 2019 09:20
[2019-02-17] MEDS: CYCLOBENZAPRINE 10 MG TAB PO SCH ×2 (09:56→21:52)
[2019-02-17] MEDS: GABAPENTIN 300 MG CAP PO SCH (09:56)
[2019-02-17] MEDS: LINAGLIPTIN 5 MG TABLET PO SCH (09:58)
[2019-02-17] MEDS: FUROSEMIDE 20 MG TAB PO SCH (09:58)
[2019-02-17] MEDS: EMPAGLIFLOZIN 10 MG TABLET PO SCH (10:01)
[2019-02-17] MEDS: LISINOPRIL 5 MG TAB PO SCH (10:01)
[2019-02-17] MEDS: AMIODARONE 200 MG TAB PO SCH (10:02)
[2019-02-17] MEDS: APIXABAN 5 MG TABLET PO SCH ×2 (10:02→21:52)
[2019-02-17] MEDS: DOCUSATE SODIUM 100 MG CAP PO SCH ×2 (10:03→21:52)
[2019-02-17] MEDS: CYANOCOBALAMIN 1000 MCG INJ IM SCH (10:03)
[2019-02-17] MEDS: CEFEPIME 2GM/50 ML (PMX) 50 ML IVPB SCH ×2 (10:09→21:54)
--- NOTE | 2019-02-17 10:32 | CONS ---
Assessment/Plan Assessment/Plan Hospital Course (Demo Recall) - s/p R pop-DP bypass with non reversed GSV harvested from the thigh with endoscopic vein harvest 02/13/2019 - polymicrobial infection of non-healing ulcer of R heel. CT on 01/10/2019 did not show evidence of OM. ESR 26 on 01/09/2019, 37 on 01/12/2019 and 50 on 02/15/19; superficial wound culture grew pseudomonas, E. Coli, enterococcus (isolated from broth only), scant proteus, and scant CoNS. ESR 23 and repeat culture on 02/06/2019 grew pseudomonas - s/p Debridement of the right calcaneal ulceration 01/13/2019; intraop culture grew E. Coli, Proteus, and Enterococcus - chronic wound of R heel, in the past the wound culture grew E. coli. repeat culture on 02/06/2019 grew pseudomonas - h/o OM of R foot, h/o 6 weeks of IV vancomycin and ceftriaxone in 2018. 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 and needs EUS with FNA to confirm the diagnosis - trauma to R knee - anemia requiring PRBC - PAF - CAD s/p CABG - HTN - CM with EF 25% - h/o AICD placement - PVD - h/o aortogram, RLE runoff and percutaneous angioplasty of the posterior tibial artery and the anterior tibial artery in 10/2018 - DM - Hgb A1c 7.6% - HLD associated with DM Recommendations: - continue 6 weeks of vancomycin iv (01/11/2019-), cefepime (restart 01/17/2019-), and metronidazole IV (01/16/2019-) through 02/22/19 - continue local wound care with topical antiseptic (Dakin's solution) - please check weekly CBC BMP and ESR while Pt's on IV antibiotics Management discussed with patient, and with Dr. Urbano via [employer] messaging. Consultation Date/Type/Reason Admit Date/Time January 09, 2019 at 18:17 Initial Consult Date 01/10/19 Type of Consult ID Requesting Provider: KRISTIN PRYOR MD Date/Time of Note DATE: 02/17/19 TIME: 10:26 24 HR Interval Summary Free Text/Dictation Per patient he is planned for R foot debridement procedure tomorrow. Remains afebrile, no new labs. Detailed Summary Eyes: no complaints ENT: no complaints Respiratory: no complaints; No cough, No shortness of breath, No sputum, No wheezing Cardiovascular: no complaints; No chest pain, No palpitations Gastrointestinal: no complaints; No constipation, No decreased appetite, No diarrhea, No nausea, No vomiting Genitourinary: no complaints; No dysuria Musculoskeletal: other (R foot pain 02/16 today - states "better controlled with pain medication.") Skin: other (R foot wound) Neurologic: no complaints; No headache Endocrine: no complaints Lymphatic: no complaints Psychological: no complaints Exam/Review of Systems Exam Vitals Vital Signs Date Temp Pulse Resp B/P (MAP) Pulse Ox O2 O2 Flow FiO2 Time Delivery Rate 02/17/19 73 08:24 02/17/19 97.9 18 113/63 98 07:17 (80) 02/15/19 Room Air 00:45 02/13/19 8.0 13:00 Intake and Output 02/16/19 02/16/19 02/17/19 1515:00 23:00 07:00 IntakeIntake Total 240 ml 1960 ml 800 ml OutputOutput Total 400 ml 2600 ml 2000 ml BalanceBalance -160 ml -640 ml -1200 ml Exam Constitutional: alert, oriented, well developed, other (laying comfortably in bed - sleeping, easily awakened via verbal stimuli) Psych: no complaints, nl mood/affect Head: normocephalic, atraumatic Eyes: nl conjunctiva, nl lids, nl sclera ENMT: nl external ears & nose, nl nasal mucosa & septum, mucosa pink and moist (no thrush) Neck: supple, non-tender Respiratory: clear to auscultation, normal air movement; No labored breathing, No wheezing Cardiovascular: regular rate and rhythm, nl pulses Gastrointestinal: soft, non-tender, bowel sounds (normoactive ); No tender Genitourinary - Male: other (urinal at bedside containing yellow urine) Musculoskeletal: nl extremities to inspection Extremities: normal pulses, other (RUE PICC site is c/d/i) 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: CUPOLA MAN II-XII intact, nl mental status, nl speech, nl strength Skin: nl turgor, other (R heel is wrapped in a c/d/i kerlix dressing. Strong palpable pulse at marked area on anterior leg above the dressing. C/d/i RLE fritz dressing) Results Result Diagram: 02/16/19 0551 02/16/19 0551 Results 24hrs Laboratory Tests Test 02/16/19 12:12 02/16/19 17:34 02/16/19 20:49 02/17/19 02:34 Bedside Glucose 120 122 136 107 Test 02/17/19 08:10 Bedside Glucose 115 Medications Medication Current Medications Amiodarone HCl (Cordarone) 200 mg DAILY PO Last administered on 02/17/19at 10:02; Admin Dose 200 MG; Start 01/10/19 at 09:00 Digoxin (Digoxin) 0.125 mg DAILY@1300 PO Last administered on 02/16/19at 13:13; Admin Dose 0.125 MG; Start 01/10/19 at 13:00 Gabapentin (Neurontin) 600 mg DAILY PO Last administered on 02/17/19at 09:56; Admin Dose 600 MG; Start 01/10/19 at 09:00 Empaglifozin (Jardiance) 25 mg DAILY PO Last administered on 02/17/19at 10:01; Admin Dose 25 MG; Start 01/10/19 at 09:00 Linagliptin (Tradjenta) 5 mg DAILY PO Last administered on 02/17/19at 09:58; Admin Dose 5 MG; Start 01/10/19 at 09:00 Diagnostic Test (Pha) (Accu-Chek) 1 ea 02 XX Last administered on 02/17/19at 02:35; Admin Dose 1 EA; Start 01/10/19 at 02:00 Miscellaneous Information 1 ea NOTE XX ; Start 01/09/19 at 21:30 Glucose (Glutose) 15 gm Q15M PRN PO DECREASED GLUCOSE; Start 01/09/19 at 21:30 Glucose (Glutose) 22.5 gm Q15M PRN PO DECREASED GLUCOSE; Start 01/09/19 at 21:30 Dextrose (D50w Syringe) 50 ml Q15M PRN IV DECREASED GLUCOSE; Start 01/09/19 at 21:30 Glucagon (Glucagen) 1 mg Q15M PRN IM DECREASED GLUCOSE; Start 01/09/19 at 21:30 Glucose (Glutose) 15 gm Q15M PRN BUCCAL DECREASED GLUCOSE; Start 01/09/19 at 21:30 Insulin Glargine (Lantus) 18 units QHS SC Last administered on 02/16/19 22:38; Admin Dose 18 UNITS; Start 01/09/19 at 22:30 Carvedilol (Coreg) 3.125 mg BID PO Last administered on 02/16/19 09:21; Admin Dose 3.125 MG; Start 01/10/19 at 21:00 Vancomycin HCl (Vanco Iv Per Pharmacy) VANCOMYCIN PER PHARMACY PER PROTOCOL XX ; Start 01/11/19 at 02:30 Lisinopril (Zestril) 2.5 mg DAILY PO Last administered on 02/17/19 10:01; Admin Dose 2.5 MG; Start 01/13/19 at 09:00 Senna (Senokot) 1 tab DAILY PRN PO CONSTIPATION Last administered on 02/15/19 20:20; Admin Dose 1 TAB; Start 01/12/19 at 18:30 Neomycin/ Polymyxin/ Bacitracin (Neosporin Topical Oint) 1 applic DAILY TOP Last administered on 02/16/19 09:28; Admin Dose 1 APPLIC; Start 01/12/19 at 18:30 Cyanocobalamin (Vitamin B12 Inj) 1,000 mcg DAILY IM Last administered on 02/17/19 10:03; Admin Dose 1,000 MCG; Start 01/16/19 at 09:00 Pantoprazole (Protonix Tab) 40 mg DAILY@06 PO Last administered on 02/17/19 06:27; Admin Dose 40 MG; Start 01/17/19 at 06:00 Metronidazole 100 ml @ 100 mls/hr Q8 IVPB Last administered on 02/17/19 06:27; Admin Dose 100 MLS/HR; Start 01/16/19 at 22:00 Cefepime HCl 50 ml @ 100 mls/hr Q12 IVPB Last administered on 02/17/19 10:09; Admin Dose 100 MLS/HR; Start 01/17/19 at 21:00 Insulin Aspart (Novolog Insulin Pen) NOVOLOG *MODERATE* ALGORITHM WITH MEALS BEDTIME SC Last administered on 02/15/19 20:43; Admin Dose 1 UNIT; Start 01/26/19 at 21:00 IV Flush (NS 10 ml) 10 ml PRN PRN IV IV PROTOCOL; Start 01/29/19 at 17:00 Docusate Sodium (Colace) 100 mg BID PO Last administered on 02/17/19 10:03; Admin Dose 100 MG; Start 02/07/19 at 21:00 Magnesium Hydroxide (Milk Of Mag) 30 ml BID PRN PO CONSTIPATION Last admi nistered on 02/15/19 20:20; Admin Dose 30 ML; Start 02/08/19 at 14:00 Sodium Hypochlorite (Dakins Diluted ()) 1 applic DAILY TP Last administered on 02/16/19 09:27; Admin Dose 1 APPLIC; Start 02/09/19 at 13:00 Acetaminophen (Tylenol Tab) 650 mg Q4H PRN PO MILD PAIN(1-3)OR ELEVATED TEMP; Start 02/10/19 at 22:00 Ondansetron HCl (Zofran Inj) 4 mg Q6H PRN IV NAUSEA AND/OR VOMITING; Start 02/10/19 at 22:00 Furosemide (Lasix) 20 mg DAILY PO Last administered on 02/17/19 09:58; Admin Dose 20 MG; Start 02/13/19 at 09:00 Cyclobenzaprine HCl (Flexeril) 5 mg BID PO Last administered on 02/17/19 09 :56; Admin Dose 5 MG; Start 02/13/19 at 09:00 Hydromorphone HCl (Dilaudid) 2 mg Q3 PRN IV SEVERE PAIN LEVEL 7-10 Last administered on 02/17/19 10:04; Admin Dose 2 MG; Start 02/13/19 at 18:30 Apixaban (Eliquis) 2.5 mg BID PO Last administered on 02/17/19 10:02; Admin Dose 2.5 MG; Start 02/14/19 at 12:00 Miscellaneous Information [facility] This patient metz... PRN PRN XX WOUND CARE; Start 02/15/19 at 04:30 Vancomycin HCl 1.5 gm/Sodium Chloride 250 ml @ 83.333 mls/ hr Q12H IVPB Last administered on 02/17/19 01:32; Admin Dose 83.333 MLS/HR; Start 02/16/19 at 01:00 Alteplase, Recombinant (Cathflo (Activase)) 2 mg MAY REPEAT X1 PRN CATHETER IF CATHETER REMAINS OCCULUDED; Start 02/15/19 at 21:00 Alteplase, Recombinant (Cathflo (Activase)) 2 mg MAY REPEAT X1 PRN CATHETER IF CATHETER REMAINS OCCULUDED; Start 02/16/19 at 04:00 Miscellaneous Information (*Order Clarification Bulletin) MEDICATION REQUIRES CLARIFICATI... Q8H XX ; Start 02/16/19 at 06:30 Miscellaneous Information (*Rx Drug Level Order Reminder*) VANCO TROUGH @ 1,200 ON... 1200 ONCE XX ; Start 02/17/19 at 12:00; Stop 02/17/19 at 12:01 Lactated Ringer's 1,000 ml @ 100 mls/hr Q10H IV ; Start 02/16/19 at 16:07 Miscellaneous Information (*Order Clarification Bulletin) MEDICATION REQUIRES CLARIFICATI... Q8H XX ; Start 02/16/19 at 22:00; Stop 02/19/19 at 00:00 FELICITY SORTO NP Feb 17, 2019 10:32
[2019-02-17] MEDS: DAKINS 0.0125%(1/40) 473 ML SOLUTION TP SCH (15:57)
[2019-02-17] MEDS: DIGOXIN 0.125 MG TAB PO SCH (15:57)
--- NOTE | 2019-02-17 16:02 | PN ---
Date/Time of Note Date/Time of Note DATE: 02/17/19 TIME: 15:57 Assessment/Plan VTE Prophylaxis Risk score (from Ns)>0 risk: 3 SCD applied (from Ns): Yes Pharmacological prophylaxis: NA/contraindicated, other Pharm contraindication: anticoag not tolerated Lines[facility] Central line still needed: Yes Urinary Cath still in place: Yes Reason Cath still needed: urinary retention Assessment/Plan Hospital Course Patient remains hemodynamically stable, sinus rhythm at controlled rate. patient status post right pop DP bypass on Saturday, pain is adequately controlled, plan for right heel wound debridement tomorrow by network support. Okay to transfer to medical surgical floor. Assessment/Plan -Chronic peripheral vascular disease, history of angioplasty x2. Dr. Sheppard is following in vascular surgery consultation. S/p right pop DP bypass on 02/13/19. -Right heel necrotic wound. Dr. Mata is following in podiatry consultation. Status post debridement. Continue antibiotics per ID. Dr. Urbano is following in infection disease consultation. Will require total of 6 weeks of Vancomycin IV, Cefepime IV, and Flagyl IV through 02/22/19. 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 EUS and FNA as an outpatient to confirm GIST tumor diagnosis. Continue PPI. -New onset of anemia and hypotension requiring blood transfusion on 01/15/2019, stool for OB is negative. -Coronary artery disease, status post coronary artery bypass graft. -Cardiomyopathy with ejection fraction of 25%. Continue Coreg. Dr. Foster is following in cardiology consultation. -Status post AICD. -Hx of Hypertension. -Diabetes hemoglobin A1c 7.6. Continue Lantus and NovoLog. -Right knee contusion and abrasion status post fall. Status post evaluation by Dr. Zelaya and orthopedic surgery. No signs of fracture or dystrophic dislocation. -Chronic low back pain with significant spondylolisthesis grade II at the level of L5 to S1. Status post evaluation and pain management by Dr. Robertson and pain management consultation. Further recommendations based on clinical course. Plan of care discussed with Dr. Mann. Result Diagram: 02/16/19 0551 02/16/19 0551 Results 24hrs Laboratory Tests Test 02/16/19 17:34 02/16/19 20:49 02/17/19 02:34 02/17/19 08:10 Bedside Glucose 122 136 107 115 Test 02/17/19 11:50 02/17/19 12:04 Bedside Glucose 177 Vancomycin Level 13.4 Trough Exam/Review of Systems Exam Vitals Vital Signs Date Temp Pulse Resp B/P (MAP) Pulse Ox O2 O2 Flow FiO2 Time Delivery Rate 02/17/19 98.5 93 19 96/62 (73) 96 15:50 02/15/19 Room Air 00:45 02/13/19 8.0 13:00 Intake and Output 02/16/19 02/16/19 02/17/19 1515:00 23:00 07:00 IntakeIntake Total 240 ml 1960 ml 800 ml OutputOutput Total 400 ml 2600 ml 2000 ml BalanceBalance -160 ml -640 ml -1200 ml Exam Constitutional: alert, oriented Respiratory: clear to auscultation Cardiovascular: regular rhythm and rate, AICD Gastrointestinal: soft, non-tender Extremities: normal pulses, other (Right heel wound, R leg surgical incision covered with dressing) RUE PICC Results Results 24hrs Laboratory Tests Test 02/16/19 17:34 02/16/19 20:49 02/17/19 02:34 02/17/19 08:10 Bedside Glucose 122 136 107 115 Test 02/17/19 11:50 02/17/19 12:04 Bedside Glucose 177 Vancomycin Level 13.4 Trough Medications Medication Current Medications Amiodarone HCl (Cordarone) 200 mg DAILY PO Last administered on 02/17/19at 10:02; Admin Dose 200 MG; Start 01/10/19 at 09:00 Digoxin (Digoxin) 0.125 mg DAILY@1300 PO Last administered on 02/16/19at 13:13; Admin Dose 0.125 MG; Start 01/10/19 at 13:00 Gabapentin (Neurontin) 600 mg DAILY PO Last administered on 02/17/19at 09:56; Admin Dose 600 MG; Start 01/10/19 at 09:00 Empaglifozin (Jardiance) 25 mg DAILY PO Last administered on 02/17/19at 10:01; Admin Dose 25 MG; Start 01/10/19 at 09:00 Linagliptin (Tradjenta) 5 mg DAILY PO Last administered on 02/17/19at 09:58; Admin Dose 5 MG; Start 01/10/19 at 09:00 Diagnostic Test (Pha) (Accu-Chek) 1 ea 02 XX Last administered on 02/17/19at 02:35; Admin Dose 1 EA; Start 01/10/19 at 02:00 Miscellaneous Information 1 ea NOTE XX ; Start 01/09/19 at 21:30 Glucose (Glutose) 15 gm Q15M PRN PO DECREASED GLUCOSE; Start 01/09/19 at 21:30 Glucose (Glutose) 22.5 gm Q15M PRN PO DECREASED GLUCOSE; Start 01/09/19 at 21:30 Dextrose (D50w Syringe) 50 ml Q15M PRN IV DECREASED GLUCOSE; Start 01/09/19 at 21:30 Glucagon (Glucagen) 1 mg Q15M PRN IM DECREASED GLUCOSE; Start 01/09/19 at 21:30 Glucose (Glutose) 15 gm Q15M PRN BUCCAL DECREASED GLUCOSE; Start 01/09/19 at 21:30 Insulin Glargine (Lantus) 18 units QHS SC Last administered on 02/16/19at 22:38; Admin Dose 18 UNITS; Start 01/09/19 at 22:30 Carvedilol (Coreg) 3.125 mg BID PO Last administered on 02/16/19 09:21; Admin Dose 3.125 MG; Start 01/10/19 at 21:00 Vancomycin HCl (Vanco Iv Per Pharmacy) VANCOMYCIN PER PHARMACY PER PROTOCOL XX ; Start 01/11/19 at 02:30 Lisinopril (Zestril) 2.5 mg DAILY PO Last administered on 02/17/19at 10:01; Admin Dose 2.5 MG; Start 01/13/19 at 09:00 Senna (Senokot) 1 tab DAILY PRN PO CONSTIPATION Last administered on 02/15/19 20:20; Admin Dose 1 TAB; Start 01/12/19 at 18:30 Neomycin/ Polymyxin/ Bacitracin (Neosporin Topical Oint) 1 applic DAILY TOP Last administered on 02/16/19at 09:28; Admin Dose 1 APPLIC; Start 01/12/19 at 18:30 Cyanocobalamin (Vitamin B12 Inj) 1,000 mcg DAILY IM Last administered on 02/17/19at 10:03; Admin Dose 1,000 MCG; Start 01/16/19 at 09:00 Pantoprazole (Protonix Tab) 40 mg DAILY@06 PO Last administered on 02/17/19 06:27; Admin Dose 40 MG; Start 01/17/19 at 06:00 Metronidazole 100 ml @ 100 mls/hr Q8 IVPB Last administered on 02/17/19 06:27; Admin Dose 100 MLS/HR; Start 01/16/19 at 22:00 Cefepime HCl 50 ml @ 100 mls/hr Q12 IVPB Last administered on 02/17/19 10:09; Admin Dose 100 MLS/HR; Start 01/17/19 at 21:00 Insulin Aspart (Novolog Insulin Pen) NOVOLOG *MODERATE* ALGORITHM WITH MEALS BEDTIME SC Last administered on 02/17/19 12:05; Admin Dose 2 UNIT; Start 01/26/19 at 21:00 IV Flush (NS 10 ml) 10 ml PRN PRN IV IV PROTOCOL; Start 01/29/19 at 17:00 Docusate Sodium (Colace) 100 mg BID PO Last administered on 02/17/19 10:03; Admin Dose 100 MG; Start 02/07/19 at 21:00 Magnesium Hydroxide (Milk Of Mag) 30 ml BID PRN PO CONSTIPATION Last administered on 02/15/19 20:20; Admin Dose 30 ML; Start 02/08/19 at 14:00 Sodium Hypochlorite (Dakins Diluted (1/40)) 1 applic DAILY TP Last administered on 02/16/19 09:27; Admin Dose 1 APPLIC; Start 02/09/19 at 13:00 Acetaminophen (Tylenol Tab) 650 mg Q4H PRN PO MILD PAIN(1-3)OR ELEVATED TEMP; Start 02/10/19 at 22:00 Ondansetron HCl (Zofran Inj) 4 mg Q6H PRN IV NAUSEA AND/OR VOMITING; Start 02/10 at 22:00 Furosemide (Lasix) 20 mg DAILY PO Last administered on 02/17/19 09:58; Admin Dose 20 MG; Start 02/13/19 at 09:00 Cyclobenzaprine HCl (Flexeril) 5 mg BID PO Last administered on 02/17/19 09:56; Admin Dose 5 MG; Start 02/13/19 at 09:00 Hydromorphone HCl (Dilaudid) 2 mg Q3 PRN IV SEVERE PAIN LEVEL 7-10 Last administered on 02/17/19at 13:52; Admin Dose 2 MG; Start 02/13/19 at 18:30 Apixaban (Eliquis) 2.5 mg BID PO Last administered on 02/17/19at 10:02; Admin Dose 2.5 MG; Start 02/14/19 at 12:00 Miscellaneous Information (Pending [facility] Order For Wound Care) This patient metz... PRN PRN XX WOUND CARE; Start 02/15/19 at 04:30 Vancomycin HCl 1.5 gm/Sodium Chloride 250 ml @ 83.333 mls/ hr Q12H IVPB Last administered on 02/17/19at 11:54; Admin Dose 83.333 MLS/HR; Start 02/16/19 at 01:00 Alteplase, Recombinant (Cathflo (Activase)) 2 mg MAY REPEAT X1 PRN CATHETER IF CATHETER REMAINS OCCULUDED; Start 02/15/19 at 21:00 Alteplase, Recombinant (Cathflo (Activase)) 2 mg MAY REPEAT X1 PRN CATHETER IF CATHETER REMAINS OCCULUDED; Start 02/16/19 at 04:00 Miscellaneous Information (*Order Clarification Bulletin) MEDICATION REQUIRES CLARIFICATI... Q8H XX ; Start 02/16/19 at 06:30 Lactated Ringer's 1,000 ml @ 100 mls/hr Q10H IV ; Start 02/16/19 at 16:07 Miscellaneous Information (*Order Clarification Bulletin) MEDICATION REQUIRES CLARIFICATI... Q8H XX ; Start 02/16/19 at 22:00; Stop 02/19/19 at 00:00 RAMESH SOLORZANO Feb 17, 2019 16:02
[2019-02-17] MEDS: INSULIN GLARGINE [LANTus] (100 UNITS/ML) SYG SC SCH (22:10)
[2019-02-17] MEDS: [UNRECOGNIZED DRUG - OTHER] XX SCH (22:30)
[2019-02-18] VITALS (14 sets, daily range): BP systolic 100–151; BP diastolic 56–82; PULSE 76–100; RESP 11–24
[2019-02-18] MEDS: HYDROmorphONE 2 MG/ML SYG IV PRN ×7 (00:59→23:45)
[2019-02-18] MEDS: VANCOMYCIN HCL 1.5 GM in SOD CHLORIDE 0.9% 250 ML IVPB SCH ×2 (01:18→17:29)
[2019-02-18] MEDS: ACCU-CHEK XX SCH (02:00)
[2019-02-18] MEDS: metroNIDAZOLE 500 MG/NS (PMX) 100 ML IVPB SCH ×3 (05:56→21:40)
[2019-02-18] MEDS: [UNRECOGNIZED DRUG - OTHER] XX SCH ×3 (06:30→22:30)
[2019-02-18] MEDS: INSULIN ASPART [NOVOLOG] 3 ML PEN SC SCH ×4 (08:00→21:00)
[2019-02-18] MEDS: CYANOCOBALAMIN 1000 MCG INJ IM SCH (08:03)
[2019-02-18] MEDS: AMIODARONE 200 MG TAB PO SCH (08:13)
[2019-02-18] MEDS: EMPAGLIFLOZIN 10 MG TABLET PO SCH (08:14)
[2019-02-18] MEDS: APIXABAN 5 MG TABLET PO SCH ×2 (08:14→20:36)
[2019-02-18] MEDS: FUROSEMIDE 20 MG TAB PO SCH (08:14)
[2019-02-18] MEDS: CYCLOBENZAPRINE 10 MG TAB PO SCH ×2 (08:14→20:35)
[2019-02-18] MEDS: LISINOPRIL 5 MG TAB PO SCH (08:15)
[2019-02-18] MEDS: NEOMYC/POLYMYX/BACIT 30 GM OINT TOP SCH (08:15)
[2019-02-18] MEDS: LINAGLIPTIN 5 MG TABLET PO SCH (08:15)
[2019-02-18] MEDS: GABAPENTIN 300 MG CAP PO SCH (08:15)
[2019-02-18] MEDS: DOCUSATE SODIUM 100 MG CAP PO SCH ×2 (08:16→20:36)
[2019-02-18] MEDS: DAKINS 0.0125%(1/40) 473 ML SOLUTION TP SCH (08:16)
--- NOTE | 2019-02-18 09:08 | CONS ---
Assessment/Plan Assessment/Plan Hospital Course (Demo Recall) - s/p R pop-DP bypass with non reversed GSV harvested from the thigh with endoscopic vein harvest 02/13/2019 - polymicrobial infection of non-healing ulcer of R heel. CT on 01/10/2019 did not show evidence of OM. ESR 26 on 01/09/2019, 37 on 01/12/2019 and 50 on 02/15/19; superficial wound culture grew pseudomonas, E. Coli, enterococcus (isolated from broth only), scant proteus, and scant CoNS. ESR 23 and repeat culture on 02/06/2019 grew pseudomonas - s/p Debridement of the right calcaneal ulceration 01/13/2019; intraop culture grew E. Coli, Proteus, and Enterococcus - chronic wound of R heel, in the past the wound culture grew E. coli. repeat culture on 02/06/2019 grew pseudomonas - h/o OM of R foot, h/o 6 weeks of IV vancomycin and ceftriaxone in 2018. 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 and needs EUS with FNA to confirm the diagnosis - trauma to R knee - anemia requiring PRBC - PAF - CAD s/p CABG - HTN - CM with EF 25% - h/o AICD placement - PVD - h/o aortogram, RLE runoff and percutaneous angioplasty of the posterior tibial artery and the anterior tibial artery in 10/2018 - DM - Hgb A1c 7.6% - HLD associated with DM Recommendations: - continue 6 weeks of vancomycin iv (01/11/2019-), cefepime (restart 01/17/2019-), and metronidazole IV (01/16/2019-) through 02/22/19 - continue local wound care with topical antiseptic (Dakin's solution) - weekly CBC BMP and ESR while Pt's on IV antibiotics I directed care to WRISTER yesterday via [employer] messaging. Consultation Date/Type/Reason Admit Date/Time January 09, 2019 at 18:17 Initial Consult Date 01/10/19 Requesting Provider: KRISTIN PRYOR MD Date/Time of Note DATE: 02/18/19 TIME: 09:05 Exam/Review of Systems Exam Vitals Vital Signs Date Temp Pulse Resp B/P (MAP) Pulse Ox O2 O2 Flow FiO2 Time Delivery Rate 02/18/19 98.4 89 20 102/58 98 02:16 (73) 02/15/19 Room Air 00:45 Intake and Output 02/17/19 02/17/19 02/18/19 1515:00 23:00 07:00 IntakeIntake Total 900 ml 1350 ml 1350 ml OutputOutput Total 1200 ml 1800 ml 500 ml BalanceBalance -300 ml -450 ml 850 ml Results Result Diagram: 02/16/19 0551 02/16/19 0551 Results 24hrs Laboratory Tests Test 02/17/19 11:50 02/17/19 12:04 02/17/19 17:53 02/17/19 22:03 Bedside Glucose 177 127 166 Vancomycin Level 13.4 Trough Test 02/18/19 02:13 02/18/19 08:01 Bedside Glucose 123 125 Medications Medication Current Medications Amiodarone HCl (Cordarone) 200 mg DAILY PO Last administered on 02/17/19at 10:02; Admin Dose 200 MG; Start 01/10/19 at 09:00 Digoxin (Digoxin) 0.125 mg DAILY@1300 PO Last administered on 02/17/19at 15:57; Admin Dose 0.125 MG; Start 01/10/19 at 13:00 Gabapentin (Neurontin) 600 mg DAILY PO Last administered on 02/17/19 09:56; Admin Dose 600 MG; Start 01/10/19 at 09:00 Empaglifozin (Jardiance) 25 mg DAILY PO Last administered on 02/17/19at 10:01; Admin Dose 25 MG; Start 01/10/19 at 09:00 Linagliptin (Tradjenta) 5 mg DAILY PO Last administered on 02/17/19at 09:58; Admin Dose 5 MG; Start 01/10/19 at 09:00 Diagnostic Test (Pha) (Accu-Chek) 1 ea 02 XX Last administered on 02/17/19at 02:35; Admin Dose 1 EA; Start 01/10/19 at 02:00 Miscellaneous Information 1 ea NOTE XX ; Start 01/09/19 at 21:30 Glucose (Glutose) 15 gm Q15M PRN PO DECREASED GLUCOSE; Start 01/09/19 at 21:30 Glucose (Glutose) 22.5 gm Q15M PRN PO DECREASED GLUCOSE; Start 01/09/19 at 21:30 Dextrose (D50w Syringe) 50 ml Q15M PRN IV DECREASED GLUCOSE; Start 01/09/19 at 21:30 Glucagon (Glucagen) 1 mg Q15M PRN IM DECREASED GLUCOSE; Start 01/09/19 at 21:30 Glucose (Glutose) 15 gm Q15M PRN BUCCAL DECREASED GLUCOSE; Start 01/09/19 at 21:30 Insulin Glargine (Lantus) 18 units QHS SC Last administered on 02/17/19at 22:10; Admin Dose 18 UNITS; Start 01/09/19 at 22:30 Carvedilol (Coreg) 3.125 mg BID PO Last administered on 02/16/19 09:21; Admin Dose 3.125 MG; Start 01/10/19 at 21:00 Vancomycin HCl (Vanco Iv Per Pharmacy) VANCOMYCIN PER PHARMACY PER PROTOCOL XX ; Start 01/11/19 at 02:30 Lisinopril (Zestril) 2.5 mg DAILY PO Last administered on 02/17/19 10:01; Admin Dose 2.5 MG; Start 01/13/19 at 09:00 Senna (Senokot) 1 tab DAILY PRN PO CONSTIPATION Last administered on 02/15/19 20:20; Admin Dose 1 TAB; Start 01/12/19 at 18:30 Neomycin/ Polymyxin/ Bacitracin (Neosporin Topical Oint) 1 applic DAILY TOP Last administered on 02/18/19 08:15; Admin Dose 1 APPLIC; Start 01/12/19 at 18:30 Cyanocobalamin (Vitamin B12 Inj) 1,000 mcg DAILY IM Last administered on 02/18/19 08:03; Admin Dose 1,000 MCG; Start 01/16/19 at 09:00 Metronidazole 100 ml @ 100 mls/hr Q8 IVPB Last administered on 02/18/19 05:56; Admin Dose 100 MLS/HR; Start 01/16/19 at 22:00 Cefepime HCl 50 ml @ 100 mls/hr Q12 IVPB Last administered on 02/17/19 21:54; Admin Dose 100 MLS/HR; Start 01/17/19 at 21:00 Insulin Aspart (Novolog Insulin Pen) NOVOLOG *MODERATE* ALGORITHM WITH MEALS BEDTIME SC Last administered on 02/17/19at 12:05; Admin Dose 2 UNIT; Start 01/26/19 at 21:00 IV Flush (NS 10 ml) 10 ml PRN PRN IV IV PROTOCOL; Start 01/29/19 at 17:00 Docusate Sodium (Colace) 100 mg BID PO Last administered on 02/17/19 21:52; Admin Dose 100 MG; Start 02/07/19 at 21:00 Magnesium Hydroxide (Milk Of Mag) 30 ml BID PRN PO CONSTIPATION Last administered on 02/15/19 20:20; Admin Dose 30 ML; Start 02/08/19 at 14:00 Sodium Hypochlorite (Dakins Diluted ()) 1 applic DAILY TP Last administered on 02/18/19 08:16; Admin Dose 1 APPLIC; Start 02/09/19 at 13:00 Acetaminophen (Tylenol Tab) 650 mg Q4H PRN PO MILD PAIN(1-3)OR ELEVATED TEMP; Start 02/10/19 at 22:00 Ondansetron HCl (Zofran Inj) 4 mg Q6H PRN IV NAUSEA AND/OR VOMITING; Start 02/10/19 at 22:00 Furosemide (Lasix) 20 mg DAILY PO Last administered on 02/17/19 09:58; Admin Dose 20 MG; Start 02/13/19 at 09:00 Cyclobenzaprine HCl (Flexeril) 5 mg BID PO Last administered on 02/17/19 21:52; Admin Dose 5 MG; Start 02/13/19 at 09:00 Hydromorphone HCl (Dilaudid) 2 mg Q3 PRN IV SEVERE PAIN LEVEL 7-10 Last administered on 02/18/19 07:55; Admin Dose 2 MG; Start 02/13/19 at 18:30 Apixaban (Eliquis) 2.5 mg BID PO Last administered on 02/17/19 21:52; Admin Dose 2.5 MG; Start 02/14/19 at 12:00 Miscellaneous Information [facility] This patient metz... PRN PRN XX WOUND CARE; Start 02/15/19 at 04:30 Vancomycin HCl 1.5 gm/Sodium Chloride 250 ml @ 83.333 mls/ hr Q12H IVPB Last administered on 02/18/19 01:18; Admin Dose 83.333 MLS/HR; Start 02/16/19 at 01:00 Alteplase, Recombinant (Cathflo (Activase)) 2 mg MAY REPEAT X1 PRN CATHETER IF CATHETER REMAINS OCCULUDED; Start 02/15/19 at 21:00 Alteplase, Recombinant (Cathflo (Activase)) 2 mg MAY REPEAT X1 PRN CATHETER IF CATHETER REMAINS OCCULUDED; Start 02/16/19 at 04:00 Miscellaneous Information (*Order Clarification Bulletin) MEDICATION REQUIRES CLARIFICATI... Q8H XX ; Start 02/16/19 at 06:30 DENITA WOMACK MD Feb 18, 2019 09:08
--- NOTE | 2019-02-18 09:09 | EN ---
Date/Time of Note Date/Time of Note DATE: 02/18/19 TIME: 09:08 Event Note Medicine Medicine Event Note Events noted. EMR reviewed. ordered deep cx for today. Noted debridement scheduled. Will be in approx 11:15 for further eval. I directed care to OCCUPATIONAL HEALTH AND SAFETY MANAGER yesterday via tele[employer] messaging. DENITA WOMACK MD Feb 18, 2019 09:09
--- NOTE | 2019-02-18 09:10 | PREAC ---
Date/Time of Note Date/Time of Note DATE: 02/18/19 TIME: 09:06 Anesthesia Eval and Record Evaluation Time Pre-Procedure Interview DATE: 02/18/19 TIME: 09:06 Age 63 Sex male NPO: 8 hrs Preoperative diagnosis RIGHT heel necrotic wound, chronic PVD, DM Planned procedure Debridement RIGHT foot Past Medical History Past Medical History: Includes Cardio: HTN, Dyslipidemia, CAD (s/p CABG), CABG, PPM/AICD (s/p AICD), CHF (cardiomyopathy EF 25%), Other (chronic PVD s/p angioplasty X 2, s/p RIGHT popliteal DP bypass Dr Sheppard. ) Endo: Diabetes Neuro: Other (chronic low back pain) Musculoskeletal: Other (right knee contusion and abrasion) GI: Other (gastric mass ) Heme: Anemia Surgery & Anesthesia Issues No known issue Meds Anticoagulation: No Beta Tasha within 24 hr: No Reason Beta Tasha not given: Pt. not on B-Tasha Reported Medications Amiodarone Hcl* (Amiodarone Hcl*) 200 Mg Tablet, 200 MG PO DAILY, #30 TAB 01/09/19 Digoxin* (Digitek*) 125 Mcg Tablet, 0.125 MG PO DAILY, TAB 01/09/19 Rivaroxaban* (Xarelto*) 20 Mg Tablet, 20 MG PO WITH DINNER, TAB 01/09/19 Clopidogrel Bisulfate* (Clopidogrel Bisulfate*) 75 Mg Tablet, 75 MG PO DAILY, #30 TAB 01/09/19 Empagliflozin (Jardiance) 25 Mg Tablet, 25 MG PO DAILY, TAB 01/09/19 Insulin Glargine,Hum.rec.anlog (Juan Danielaglcirilo Burns U-100) 100 Unit/1 Ml Insuln.pen, 18 UNIT SC QHS, EA 01/09/19 Sulfamethoxazole/Trimethoprim* (Bactrim Ds* Tablet) 1 Each Tablet, 1 TAB PO BID, TAB FOR 10 DAYS,START TAKING 01/06/19 01/09/19 Tapentadol Hcl (Nucynta) 100 Mg Tablet, 100 MG PO BID, TAB 01/09/19 Gabapentin* (Gabapentin*) 600 Mg Tablet, 600 MG PO DAILY, #60 TAB 01/09/19 Metformin Hcl* (Metformin Hcl*) 1,000 Mg Tablet, 1000 MG PO WITH BREAKFAST DINNE, #60 TAB 5/3/19 Current Medications Amiodarone HCl (Cordarone) 200 mg DAILY PO Last administered on 02/17/19 10:02; Admin Dose 200 MG; Start 01/10/19 at 09:00 Digoxin (Digoxin) 0.125 mg DAILY@1300 PO Last administered on 02/17/19 15:57; Admin Dose 0.125 MG; Start 01/10/19 at 13:00 Gabapentin (Neurontin) 600 mg DAILY PO Last administered on 02/17/19 09:56; Admin Dose 600 MG; Start 01/10/19 at 09:00 Empaglifozin (Jardiance) 25 mg DAILY PO Last administered on 02/17/19 10:01; Admin Dose 25 MG; Start 01/10/19 at 09:00 Linagliptin (Tradjenta) 5 mg DAILY PO Last administered on 02/17/19 09:58; Admin Dose 5 MG; Start 01/10/19 at 09:00 Diagnostic Test (Pha) (Accu-Chek) 1 ea 02 XX Last administered on 02/17/19 02:35; Admin Dose 1 EA; Start 01/10/19 at 02:00 Miscellaneous Information 1 ea NOTE XX ; Start 01/09/19 at 21:30 Glucose (Glutose) 15 gm Q15M PRN PO DECREASED GLUCOSE; Start 01/09/19 at 21:30 Glucose (Glutose) 22.5 gm Q15M PRN PO DECREASED GLUCOSE; Start 01/09/19 at 21:30 Dextrose (D50w Syringe) 50 ml Q15M PRN IV DECREASED GLUCOSE; Start 01/09/19 at 21:30 Glucagon (Glucagen) 1 mg Q15M PRN IM DECREASED GLUCOSE; Start 01/09/19 at 21:30 Glucose (Glutose) 15 gm Q15M PRN BUCCAL DECREASED GLUCOSE; Start 01/09/19 at 21:30 Insulin Glargine (Lantus) 18 units QHS SC Last administered on 02/17/19 22:10; Admin Dose 18 UNITS; Start 01/09/19 at 22:30 Carvedilol (Coreg) 3.125 mg BID PO Last administered on 02/16/19 09:21; Admin Dose 3.125 MG; Start 01/10/19 at 21:00 Vancomycin HCl (Vanco Iv Per Pharmacy) VANCOMYCIN PER PHARMACY PER PROTOCOL XX ; Start 01/11/19 at 02:30 Lisinopril (Zestril) 2.5 mg DAILY PO Last administered on 02/17/19 10:01; Admin Dose 2.5 MG; Start 01/13/19 at 09:00 Senna (Senokot) 1 tab DAILY PRN PO CONSTIPATION Last administered on 02/15/19 20:20; Admin Dose 1 TAB; Start 01/12/19 at 18:30 Neomycin/ Polymyxin/ Bacitracin (Neosporin Topical Oint) 1 applic DAILY TOP Last administered on 02/18/19 08:15; Admin Dose 1 APPLIC; Start 01/12/19 at 18:30 Cyanocobalamin (Vitamin B12 Inj) 1,000 mcg DAILY IM Last administered on 02/18/19 08:03; Admin Dose 1,000 MCG; Start 01/16/19 at 09:00 Metronidazole 100 ml @ 100 mls/hr Q8 IVPB Last administered on 02/18/19 05:56; Admin Dose 100 MLS/HR; Start 01/16/19 at 22:00 Cefepime HCl 50 ml @ 100 mls/hr Q12 IVPB Last administered on 02/17/19 21:54; Admin Dose 100 MLS/HR; Start 01/17/19 at 21:00 Insulin Aspart (Novolog Insulin Pen) NOVOLOG *MODERATE* ALGORITHM WITH MEALS BEDTIME SC Last administered on 02/17/19 12:05; Admin Dose 2 UNIT; Start 01/26/19 at 21:00 IV Flush (NS 10 ml) 10 ml PRN PRN IV IV PROTOCOL; Start 01/29/19 at 17:00 Docusate Sodium (Colace) 100 mg BID PO Last administered on 02/17/19 21:52; Admin Dose 100 MG; Start 02/07/19 at 21:00 Magnesium Hydroxide (Milk Of Mag) 30 ml BID PRN PO CONSTIPATION Last administe red on 02/15/19 20:20; Admin Dose 30 ML; Start 02/08/19 at 14:00 Sodium Hypochlorite (Dakins Diluted (/40)) 1 applic DAILY TP Last administered on 02/18/19 08:16; Admin Dose 1 APPLIC; Start 02/09/19 at 13:00 Acetaminophen (Tylenol Tab) 650 mg Q4H PRN PO MILD PAIN(1-3)OR ELEVATED TEMP; Start 02/10/19 at 22:00 Ondansetron HCl (Zofran Inj) 4 mg Q6H PRN IV NAUSEA AND/OR VOMITING; Start 02/10/19 at 22:00 Furosemide (Lasix) 20 mg DAILY PO Last administered on 02/17/19at 09:58; Admin Dose 20 MG; Start 02/13/19 at 09:00 Cyclobenzaprine HCl (Flexeril) 5 mg BID PO Last administered on 02/17/19at 21:52; Admin Dose 5 MG; Start 02/13/19 at 09:00 Hydromorphone HCl (Dilaudid) 2 mg Q3 PRN IV SEVERE PAIN LEVEL 7-10 Last administered on 02/18/19at 07:55; Admin Dose 2 MG; Start 02/13/19 at 18:30 Apixaban (Eliquis) 2.5 mg BID PO Last administered on 02/17/19at 21:52; Admin Dose 2.5 MG; Start 02/14/19 at 12:00 Miscellaneous Information (Pending [facility] Order For Wound Care) This patient metz... PRN PRN XX WOUND CARE; Start 02/15/19 at 04:30 Vancomycin HCl 1.5 gm/Sodium Chloride 250 ml @ 83.333 mls/ hr Q12H IVPB Last administered on 02/18/19at 01:18; Admin Dose 83.333 MLS/HR; Start 02/16/19 at 01:00 Alteplase, Recombinant (Cathflo (Activase)) 2 mg MAY REPEAT X1 PRN CATHETER IF CATHETER REMAINS OCCULUDED; Start 02/15/19 at 21:00 Alteplase, Recombinant (Cathflo (Activase)) 2 mg MAY REPEAT X1 PRN CATHETER IF CATHETER REMAINS OCCULUDED; Start 02/16/19 at 04:00 Miscellaneous Information (*Order Clarification Bulletin) MEDICATION REQUIRES CLARIFICATI... Q8H XX ; Start 02/16/19 at 06:30 Meds reviewed: Yes Allergies Coded Allergies: No Known Allergy (Unverified , 01/09/19) Allergies Reviewed: Yes Labs/Studies Labs Reviewed: Reviewed by anesthesiologist Result Diagram: 02/16/1949 02/16/19550 test: N/A Studies: ECG, CXR, 2D Echo Pre-procedure Exam Last vitals Vital Signs Date Temp Pulse Resp B/P (MAP) Pulse Ox O2 O2 Flow FiO2 Time Delivery Rate 02/18/19 98.4 89 20 102/58 98 02:16 (73) 02/15/19 Room Air 00:45 Airway: Adequate mouth opening, Adequate thyromental dist Mallampati: Mallampati II Teeth: Normal (some missing but no loose tooth) Lung: Normal Heart: Normal ASA Physical Status ASA physical status: 4 Emergency: None Planned Anesthetic General/MAC: MAC Planned Pain Management Parenteral pain med, Local by surgeon Pre-operative Attestations Prior to commencing anesthesia and surgery, the patient was re-evaluated, there was verification of: *The patient's identity *The results of appropriate recent lab work and preoperative vital signs *The above evaluation not changing prior to induction *Anesthetic plan, risk benefits, alternative and complications discussed with patient/family; questions answered; patient/family understands, accepts and wishes to proceed. DEVI HODGES Feb 18, 2019 09:10
[2019-02-18] MEDS: CEFEPIME 2GM/50 ML (PMX) 50 ML IVPB SCH ×2 (09:23→20:30)
[2019-02-18] MEDS ORDERED: MIDAZOLAM 1 MG/ML 2 ML INJ ONE ×2 (12:29→14:42)
[2019-02-18] MEDS ORDERED: LIDOCAINE 2% (SDV) 5 ML INJ ONE (12:29)
[2019-02-18] MEDS ORDERED: PROPOFOL 20 ML ONE (12:29)
[2019-02-18] MEDS ORDERED: FENTAnyl 50 MCG/ML VIAL ONE ×3 (12:30→14:38)
[2019-02-18] MEDS: DIGOXIN 0.125 MG TAB PO SCH (13:00)
--- NOTE | 2019-02-18 13:04 | PN ---
Date/Time of Note Date/Time of Note DATE: 02/18/19 TIME: 13:00 Assessment/Plan VTE Prophylaxis Risk score (from Ns)>0 risk: 7 SCD applied (from Ns): No SCD contraindicated: other Pharmacological prophylaxis: apixaban Lines/Catheters IV Catheter Type (from Nrsg): PICC Line Central line still needed: Yes Urinary Cath still in place: Yes Reason Cath still needed: urinary retention Assessment/Plan Hospital Course No acute events overnight, patient remains hemodynamically stable, pain is adequately controlled, plan for right heel wound debridement today. Assessment/Plan -Chronic peripheral vascular disease, history of angioplasty x2. Dr. Sheppard is following in vascular surgery consultation. S/p right pop DP bypass on 02/13/19. -Right heel necrotic wound. Dr. Mata is following in podiatry consultation. Status post debridement. Continue antibiotics per ID. Dr. Urbano is following in infection disease consultation. Will require total of 6 weeks of Vancomycin IV, Cefepime IV, and Flagyl IV through 02/22/19. 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 EUS and FNA as an outpatient to confirm GIST tumor diagnosis. Continue PPI. -New onset of anemia and hypotension requiring blood transfusion on 01/15/2019, stool for OB is negative. -Coronary artery disease, status post coronary artery bypass graft. -Cardiomyopathy with ejection fraction of 25%. Continue Coreg. Dr. Foster is following in cardiology consultation. -Status post AICD. -Hx of Hypertension. -Diabetes hemoglobin A1c 7.6. Continue Lantus and NovoLog. -Right knee contusion and abrasion status post fall. Status post evaluation by Dr. Zelaya and orthopedic surgery. No signs of fracture or dystrophic dislocation. -Chronic low back pain with significant spondylolisthesis grade II at the level of L5 to S1. Status post evaluation and pain management by Dr. Robertson and cinda webb management consultation. Further recommendations based on clinical course. Plan of care discussed with Dr. Mann. Result Diagram: 02/16/19 0551 02/16/19 0551 Results 24hrs Laboratory Tests Test 02/17/19 17:53 02/17/19 22:03 02/18/19 02:13 02/18/19 08:01 Bedside Glucose 127 166 123 125 Test 02/18/19 11:39 Bedside Glucose 125 Exam/Review of Systems Exam Vitals Vital Signs Date Temp Pulse Resp B/P (MAP) Pulse Ox O2 O2 Flow FiO2 Time Delivery Rate 02/18/19 98.8 91 20 101/56 96 08:00 (71) 02/15/19 Room Air 00:45 Intake and Output 02/17/19 02/17/19 02/18/19 1515:00 23:00 07:00 IntakeIntake Total 900 ml 1350 ml 1350 ml OutputOutput Total 1200 ml 1800 ml 500 ml BalanceBalance -300 ml -450 ml 850 ml Exam Constitutional: alert, oriented Respiratory: clear to auscultation Cardiovascular: regular rhythm and rate, AICD Gastrointestinal: soft, non-tender Extremities: normal pulses, other (Right heel wound, R leg surgical incision covered with dressing) RUE PICC Results Results 24hrs Laboratory Tests Test 02/17/19 17:53 02/17/19 22:03 02/18/19 02:13 02/18/19 08:01 Bedside Glucose 127 166 123 125 Test 02/18/19 11:39 Bedside Glucose 125 Medications Medication Current Medications Amiodarone HCl (Cordarone) 200 mg DAILY PO Last administered on 02/17/19at 10:02; Admin Dose 200 MG; Start 01/10/19 at 09:00 Digoxin (Digoxin) 0.125 mg DAILY@1300 PO Last administered on 02/17/19at 15:57; Admin Dose 0.125 MG; Start 01/10/19 at 13:00 Gabapentin (Neurontin) 600 mg DAILY PO Last administered on 02/17/19at 09:56; Admin Dose 600 MG; Start 01/10/19 at 09:00 Empaglifozin (Jardiance) 25 mg DAILY PO Last administered on 02/17/19 10:01; Admin Dose 25 MG; Start 01/10/19 at 09:00 Linagliptin (Tradjenta) 5 mg DAILY PO Last administered on 02/17/19 09:58; Admin Dose 5 MG; Start 01/10/19 at 09:00 Diagnostic Test (Pha) (Accu-Chek) 1 ea 02 XX Last administered on 02/17/19at 02:35; Admin Dose 1 EA; Start 01/10/19 at 02:00 Miscellaneous Information 1 ea NOTE XX ; Start 01/09/19 at 21:30 Glucose (Glutose) 15 gm Q15M PRN PO DECREASED GLUCOSE; Start 01/09/19 at 21:30 Glucose (Glutose) 22.5 gm Q15M PRN PO DECREASED GLUCOSE; Start 01/09/19 at 21:30 Dextrose (D50w Syringe) 50 ml Q15M PRN IV DECREASED GLUCOSE; Start 01/09/19 at 21:30 Glucagon (Glucagen) 1 mg Q15M PRN IM DECREASED GLUCOSE; Start 01/09/19 at 21:30 Glucose (Glutose) 15 gm Q15M PRN BUCCAL DECREASED GLUCOSE; Start 01/09/19 at 21:30 Insulin Glargine (Lantus) 18 units QHS SC Last administered on 02/17/19 22:10; Admin Dose 18 UNITS; Start 01/09/19 at 22:30 Carvedilol (Coreg) 3.125 mg BID PO Last administered on 02/16/19 09:21; Admin Dose 3.125 MG; Start 01/10/19 at 21:00 Vancomycin HCl (Vanco Iv Per Pharmacy) VANCOMYCIN PER PHARMACY PER PROTOCOL XX ; Start 01/11/19 at 02:30 Lisinopril (Zestril) 2.5 mg DAILY PO Last administered on 02/17/19 10:01; Admin Dose 2.5 MG; Start 01/13/19 at 09:00 Senna (Senokot) 1 tab DAILY PRN PO CONSTIPATION Last administered on 02/15/19 20:20; Admin Dose 1 TAB; Start 01/12/19 at 18:30 Neomycin/ Polymyxin/ Bacitracin (Neosporin Topical Oint) 1 applic DAILY TOP Last administered on 02/18/19 08:15; Admin Dose 1 APPLIC; Start 01/12/19 at 18:30 Cyanocobalamin (Vitamin B12 Inj) 1,000 mcg DAILY IM Last administered on 02/18/19 08:03; Admin Dose 1,000 MCG; Start 01/16/19 at 09:00 Metronidazole 100 ml @ 100 mls/hr Q8 IVPB Last administered on 02/18/19 05:56; Admin Dose 100 MLS/HR; Start 01/16/19 at 22:00 Cefepime HCl 50 ml @ 100 mls/hr Q12 IVPB Last administered on 02/18/19 09:23; Admin Dose 100 MLS/HR; Start 01/17/19 at 21:00 Insulin Aspart (Novolog Insulin Pen) NOVOLOG *MODERATE* ALGORITHM WITH MEALS BEDTIME SC Last administered on 02/17/19 12:05; Admin Dose 2 UNIT; Start 01/26/19 at 21:00 IV Flush (NS 10 ml) 10 ml PRN PRN IV IV PROTOCOL; Start 01/29/19 at 17:00 Docusate Sodium (Colace) 100 mg BID PO Last administered on 02/17/19 21:52; Admin Dose 100 MG; Start 02/07/19 at 21:00 Magnesium Hydroxide (Milk Of Mag) 30 ml BID PRN PO CONSTIPATION Last adminis tered on 02/15/19 20:20; Admin Dose 30 ML; Start 02/08/19 at 14:00 Sodium Hypochlorite (Dakins Diluted ()) 1 applic DAILY TP Last administered on 02/18/19 08:16; Admin Dose 1 APPLIC; Start 02/09/19 at 13:00 Acetaminophen (Tylenol Tab) 650 mg Q4H PRN PO MILD PAIN(1-3)OR ELEVATED TEMP; Start 02/10/19 at 22:00 Ondansetron HCl (Zofran Inj) 4 mg Q6H PRN IV NAUSEA AND/OR VOMITING; Start 02/10/19 at 22:00 Furosemide (Lasix) 20 mg DAILY PO Last administered on 02/17/19 09:58; Admin Dose 20 MG; Start 02/13/19 at 09:00 Cyclobenzaprine HCl (Flexeril) 5 mg BID PO Last administered on 02/17/19 21:52 ; Admin Dose 5 MG; Start 02/13/19 at 09:00 Hydromorphone HCl (Dilaudid) 2 mg Q3 PRN IV SEVERE PAIN LEVEL 7-10 Last administered on 02/18/19 11:37; Admin Dose 2 MG; Start 02/13/19 at 18:30 Apixaban (Eliquis) 2.5 mg BID PO Last administered on 02/17/19 21:52; Admin Dose 2.5 MG; Start 02/14/19 at 12:00 [facility] This patient metz... PRN PRN XX WOUND CARE; Start 02/15/19 at 04:30 Vancomycin HCl 1.5 gm/Sodium Chloride 250 ml @ 83.333 mls/ hr Q12H IVPB Last administered on 02/18/19at 01:18; Admin Dose 83.333 MLS/HR; Start 02/16/19 at 01:00 Alteplase, Recombinant (Cathflo (Activase)) 2 mg MAY REPEAT X1 PRN CATHETER IF CATHETER REMAINS OCCULUDED; Start 02/15/19 at 21:00 Alteplase, Recombinant (Cathflo (Activase)) 2 mg MAY REPEAT X1 PRN CATHETER IF CATHETER REMAINS OCCULUDED; Start 02/16/19 at 04:00 Miscellaneous Information (*Order Clarification Bulletin) MEDICATION REQUIRES CLARIFICATI... Q8H XX ; Start 02/16/19 at 06:30 RAMESH SOLORZANO Feb 18, 2019 13:04
--- NOTE | 2019-02-18 13:06 | HPN ---
Date/Time of Note Date/Time of Note DATE: 02/18/19 TIME: 13:05 Interval H&P Admission Note Pt. seen H&P reviewed: No system changes KIM ODELL DPM Feb 18, 2019 13:06
[2019-02-18] MEDS ORDERED: BUPIVACAINE 0.5% (SDV) 30 ML INJ ONE (13:42)
[2019-02-18] MEDS ORDERED: POLYMYXIN B 500000 UNIT INJ ONE (14:00)
[2019-02-18] MEDS ORDERED: BACITRACIN 50000 UNITS INJ ONE (14:01)
[2019-02-18] MEDS ORDERED: PROPOFOL 40 ML ONE (14:16)
[2019-02-18] MEDS ORDERED: HYDROmorphONE 1 MG/5 ML IV SYRINGE IV PRN ×6 (14:30→15:30)
[2019-02-18] MEDS ORDERED: ONDANSETRON 4 MG INJ IV PRN ×2 (14:30→15:30)
[2019-02-18] MEDS ORDERED: OXYCODONE/ACETAMINOPHEN (5/325) TAB PO PRN ×4 (14:30→15:30)
--- NOTE | 2019-02-18 14:51 | CONS ---
Assessment/Plan Assessment/Plan Hospital Course (Demo Recall) IMP: 1.Pre-op for peripheral bypass surgery. Lexiscan with no ischemia/+scar EF 28%. Echo EF 25%. OK to proceed to surgery at moderate CV risk. Now POD#3 s/p R POP- DP peripheral bypass. Now s/p heel debridement today 2.Cardiomyopathy with low EF-severely depressed by echo this admit 3.Hoth-borderline today 4.HL 5.Non-healing LE ulcer 6.PAD-severe s/p prior SPOOL TENDER. Now POD#1 s/p POP to DP r side 7.DM 8. 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 -Contine lasix po daily and follow volume status closely -pain control -Continue eliquis -s/p debridement of ulcer/continue local wound care Consultation Date/Type/Reason Admit Date/Time January 09, 2019 at 18:17 Initial Consult Date 01/10/19 Type of Consult Cardiology Reason for Consultation cardiomyopathy Requesting Provider: KRISTIN PRYOR MD Date/Time of Note DATE: 02/18/19 TIME: 14:47 Exam/Review of Systems Vital Signs Vitals Vital Signs Date Temp Pulse Resp B/P (MAP) Pulse Ox O2 O2 Flow FiO2 Time Delivery Rate 02/18/19 98.8 91 20 101/56 96 08:00 (71) 02/15/19 Room Air 00:45 Intake and Output 02/17/19 02/17/19 02/18/19 1515:00 23:00 07:00 IntakeIntake Total 900 ml 1350 ml 1350 ml OutputOutput Total 1200 ml 1800 ml 500 ml BalanceBalance -300 ml -450 ml 850 ml Exam Exam Review of Systems: CONSTITUTIONAL: No fevers, chills. PULMONARY: No sob CARDIOVASCULAR: No chest pain/palpitations GASTROINTESTINAL: No nausea/vomiting. GENITOURINARY: No hematuria/dysuria. MUSCULOSKELETAL: mild foot pain PSYCHIATRIC: The patient denies depression. NEUROLOGIC: No weakness Constitutional: alert, oriented Psych: no complaints Head: normocephalic ENMT: mucosa pink and moist Neck: supple, jvd (9 cm wter) Respiratory: diminished breath sounds Cardiovascular: regular rate and rhythm Gastrointestinal: soft, non-tender Musculoskeletal: muscle tone (nomal) Extremities: edema (none) 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: other (No focal deficits) Labs Result Diagram: 02/16/19 0551 02/16/19 0551 Results 24hrs Laboratory Tests Test 02/17/19 17:53 02/17/19 22:03 02/18/19 02:13 02/18/19 08:01 Bedside Glucose 127 166 123 125 Test 02/18/19 11:39 Bedside Glucose 125 Medications Medications Current Medications Amiodarone HCl (Cordarone) 200 mg DAILY PO Last administered on 02/17/19at 10:02; Admin Dose 200 MG; Start 01/10/19 at 09:00 Digoxin (Digoxin) 0.125 mg DAILY@1300 PO Last administered on 02/17/19at 15:57; Admin Dose 0.125 MG; Start 01/10/19 at 13:00 Gabapentin (Neurontin) 600 mg DAILY PO Last administered on 02/17/19at 09:56; Admin Dose 600 MG; Start 01/10/19 at 09:00 Empaglifozin (Jardiance) 25 mg DAILY PO Last administered on 02/17/19at 10:01; Admin Dose 25 MG; Start 01/10/19 at 09:00 Linagliptin (Tradjenta) 5 mg DAILY PO Last administered on 02/17/19at 09:58; Admin Dose 5 MG; Start 01/10/19 at 09:00 Diagnostic Test (Pha) (Accu-Chek) 1 ea 02 XX Last administered on 02/17/19at 02:35; Admin Dose 1 EA; Start 01/10/19 at 02:00 Miscellaneous Information 1 ea NOTE XX ; Start 01/09/19 at 21:30 Glucose (Glutose) 15 gm Q15M PRN PO DECREASED GLUCOSE; Start 01/09/19 at 21:30 Glucose (Glutose) 22.5 gm Q15M PRN PO DECREASED GLUCOSE; Start 01/09/19 at 21:30 Dextrose (D50w Syringe) 50 ml Q15M PRN IV DECREASED GLUCOSE; Start 01/09/19 at 21:30 Glucagon (Glucagen) 1 mg Q15M PRN IM DECREASED GLUCOSE; Start 01/09/19 at 21:30 Glucose (Glutose) 15 gm Q15M PRN BUCCAL DECREASED GLUCOSE; Start 01/09/19 at 21:30 Insulin Glargine (Lantus) 18 units QHS SC Last administered on 02/17/19 22:10; Admin Dose 18 UNITS; Start 01/09/19 at 22:30 Carvedilol (Coreg) 3.125 mg BID PO Last administered on 02/16/19 09:21; Admin Dose 3.125 MG; Start 01/10/19 at 21:00 Vancomycin HCl (Vanco Iv Per Pharmacy) VANCOMYCIN PER PHARMACY PER PROTOCOL XX ; Start 01/11/19 at 02:30 Lisinopril (Zestril) 2.5 mg DAILY PO Last administered on 02/17/19 10:01; Admin Dose 2.5 MG; Start 01/13/19 at 09:00 Senna (Senokot) 1 tab DAILY PRN PO CONSTIPATION Last administered on 02/15/19 20:20; Admin Dose 1 TAB; Start 01/12/19 at 18:30 Neomycin/ Polymyxin/ Bacitracin (Neosporin Topical Oint) 1 applic DAILY TOP Last administered on 02/18/19 08:15; Admin Dose 1 APPLIC; Start 01/12/19 at 18:30 Cyanocobalamin (Vitamin B12 Inj) 1,000 mcg DAILY IM Last administered on 02/18/19 08:03; Admin Dose 1,000 MCG; Start 01/16/19 at 09:00 Metronidazole 100 ml @ 100 mls/hr Q8 IVPB Last administered on 02/18/19 05:56; Admin Dose 100 MLS/HR; Start 01/16/19 at 22:00 Cefepime HCl 50 ml @ 100 mls/hr Q12 IVPB Last administered on 02/18/19 09:23; Admin Dose 100 MLS/HR; Start 01/17/19 at 21:00 Insulin Aspart (Novolog Insulin Pen) NOVOLOG *MODERATE* ALGORITHM WITH MEALS BEDTIME SC Last administered on 02/17/19at 12:05; Admin Dose 2 UNIT; Start 01/26/19 at 21:00 IV Flush (NS 10 ml) 10 ml PRN PRN IV IV PROTOCOL; Start 01/29/19 at 17:00 Docusate Sodium (Colace) 100 mg BID PO Last administered on 02/17/19 21:52; Admin Dose 100 MG; Start 02/07/19 at 21:00 Magnesium Hydroxide (Milk Of Mag) 30 ml BID PRN PO CONSTIPATION Last administered on 02/15/19 20:20; Admin Dose 30 ML; Start 02/08/19 at 14:00 Sodium Hypochlorite (Dakins Diluted ()) 1 applic DAILY TP Last administered on 02/18/19 08:16; Admin Dose 1 APPLIC; Start 02/09/19 at 13:00 Acetaminophen (Tylenol Tab) 650 mg Q4H PRN PO MILD PAIN(1-3)OR ELEVATED TEMP; Start 02/10/19 at 22:00 Ondansetron HCl (Zofran Inj) 4 mg Q6H PRN IV NAUSEA AND/OR VOMITING; Start 02/10/19 at 22:00 Furosemide (Lasix) 20 mg DAILY PO Last administered on 02/17/19 09:58; Admin Dose 20 MG; Start 02/13/19 at 09:00 Cyclobenzaprine HCl (Flexeril) 5 mg BID PO Last administered on 02/17/19 21:52; Admin Dose 5 MG; Start 02/13/19 at 09:00 Hydromorphone HCl (Dilaudid) 2 mg Q3 PRN IV SEVERE PAIN LEVEL 7-10 Last administered on 02/18/19 11:37; Admin Dose 2 MG; Start 02/13/19 at 18:30 Apixaban (Eliquis) 2.5 mg BID PO Last administered on 02/17/19 21:52; Admin Dose 2.5 MG; Start 02/14/19 at 12:00 Miscellaneous Information (Pending Santyl Order For Wound Care) This patient metz... PRN PRN XX WOUND CARE; Start 02/15/19 at 04:30 Vancomycin HCl 1.5 gm/Sodium Chloride 250 ml @ 83.333 mls/ hr Q12H IVPB Last administered on 02/18/19 01:18; Admin Dose 83.333 MLS/HR; Start 02/16/19 at 01:00 Alteplase, Recombinant (Cathflo (Activase)) 2 mg MAY REPEAT X1 PRN CATHETER IF CATHETER REMAINS OCCULUDED; Start 02/15/19 at 21:00 Alteplase, Recombinant (Cathflo (Activase)) 2 mg MAY REPEAT X1 PRN CATHETER IF CATHETER REMAINS OCCULUDED; Start 02/16/19 at 04:00 Miscellaneous Information (*Order Clarification Bulletin) MEDICATION REQUIRES CLARIFICATI... Q8H XX ; Start 02/16/19 at 06:30 Hydromorphone HCl (Dilaudid) 0.2 mg PACU PRN IV MILD PAIN 1-3; Start 02/18/19 at 14:30; Status UNV Hydromorphone HCl (Dilaudid) 0.4 mg PACU PRN IV MOD PAIN 4-6; Start 02/18/19 at 14:30; Status UNV Hydromorphone HCl (Dilaudid) 0.6 mg PACU PRN IV SEVERE PAIN 7-10; Start 02/18/19 at 14:30; Status UNV Oxycodone/ Acetaminophen (Percocet (5/ 325)) 1 tab PACU ORDER PRN PO .PAIN 1-5; Start 02/18/19 at 14:30; Status UNV Oxycodone/ Acetaminophen (Percocet (5/ 325)) 2 tab PACU ORDER PRN PO .PAIN 6-10; Start 02/18/19 at 14:30; Status UNV Ondansetron HCl (Zofran Inj) 4 mg PACU ORDER PRN IV NAUSEA/VOMITING; Start 02/18/19 at 14:30; Status UNV VERO ARELLANO Feb 18, 2019 14:51
--- NOTE | 2019-02-18 14:54 | SIPON ---
Date/Time of Note Date/Time of Note DATE: 02/18/19 TIME: 14:52 Operative Report Preoperative Diagnosis Ulceration right calcaneal region. Postoperative Diagnosis Same Operation/Procedure Performed Debrided ulceration with application of allograft. Surgeon see signature line nutrition assistant none. Anesthesia: MAC, moderate sedation Estimated blood loss: minimal Transfusion Required none Specimen Culture. Grafts/Implants none Complications none KIM ODELL DPM Feb 18, 2019 14:54
--- NOTE | 2019-02-18 14:56 | OPR ---
DATE OF OPERATION: 02/18/2019 PREOPERATIVE DIAGNOSES: Osteomyelitis of the right calcaneus and infection and cellulitis of the ronnell caneal region of the right foot. POSTOPERATIVE DIAGNOSES: Osteomyelitis of the right calcaneus and infection and cellulitis of the ca lcaneal region of the right foot. PROCEDURE: Debridement of the right calcaneus and right calcaneal region with application of allogra ft. ANESTHESIA: MAC with local. DESCRIPTION OF PROCEDURE: The patient was brought into the OR and the right foot was prepped and ramy ped in usual sterile fashion. Prior to prepping and draping, approximately 10 mL of 0.5% plain Eva ine was utilized around the right calcaneal region. After the anesthesia was achieved, the area was prepped and draped in sterile fashion. Attention was then directed to the right calcaneal region whe re utilizing a #10 and #15 blade, the margins are debrided down to the adipose tissue circumferential ly around an approximately 3.5 x 2.5 ulceration on the plantar aspect of the right calcaneus. Necrot ic tissue was debrided with the scissors. There was black, gangrenous tissue was noted around the pe ripheral area and necrotic adipose tissue that was all debrided with a scissor and a blade. Debridem ent was carried down to the bone and a bony rongeur was utilized to promote a below bone bleeding in the region. A rasp and curet was utilized to curette the bone and excellent bleeding was noted in th e area. All adipose tissue was removed and sharp margins were created around the ulcerative area. T here was excellent bleeding noted around the skin region, the adipose region as well as the bone lino on. The area was then copiously lavaged with approximately 2000 mL of antibiotic solution in a pulse lavage method. Prior to lavaging, a culture had been taken both aerobic and anaerobic. After lavag ing, the area was once again inspected and there was excellent bleeding noted. The area was then pre pped and utilizing Integra Meshed Bilayer Wound Matrix, this was applied over the ulcerative site and stapled into position. There was excellent alignment and approximation of the graft and excellent b leeding was noted in the region. The area was then dressed with a wet gauze that had antibiotic solu tion in it. This was compressed over the graft and Adaptic was applied over top of this. A 4 x 4's, rolled gauze, Coban and elastic wrap was then utilized. The patient tolerated the procedure well an d left the room in stable condition. There were no intraoperative complications. There was minimal blood loss noted. Dictated By: KIM ODELL MD RS/NTS Conf#: [id number] DID#: [id number] CC: VERO MAHONEY MD; KRISTIN PRYOR MD;*EndCC*
[2019-02-18] MEDS ORDERED: ROCURONIUM 50 MG INJ IV ONE (15:22)
[2019-02-18] MEDS ORDERED: ONDANSETRON 4 MG INJ IV ONE (15:22)
[2019-02-18] MEDS ORDERED: MIDAZOLAM 1 MG/ML 2 ML INJ IV PRN (15:30)
[2019-02-18] MEDS ORDERED: MEPERIDINE 25 MG INJ IV PRN (15:30)
--- NOTE | 2019-02-18 16:56 | PAC ---
Date/Time of Note Date/Time of Note DATE: 02/18/19 TIME: 16:55 Post-Anesthesia Notes Post-Anesthesia Note Last documented vital signs Vital Signs Date Temp Pulse Resp B/P (MAP) Pulse Ox O2 O2 Flow FiO2 Time Delivery Rate 02/18/19 98 22 136/77 98 Nasal 15:45 (96) Cannula 02/18/19 98.2 14:59 Activity: WNL Respiratory function: WNL Cardiovascular function: WNL Mental status: Baseline Pain reasonably controlled: Yes Hydration appropriate: Yes Nausea/Vomiting absent: Yes DEVI HODGES Feb 18, 2019 16:56
[2019-02-18] MEDS: INSULIN GLARGINE [LANTus] (100 UNITS/ML) SYG SC SCH (21:06)
[2019-02-19 01:48] VITALS: BP 101/58; PULSE 91; RESP 16
[2019-02-19] MEDS: ACCU-CHEK XX SCH (02:00)
[2019-02-19] MEDS: HYDROmorphONE 2 MG/ML SYG IV PRN ×6 (02:54→21:38)
[2019-02-19] MEDS: VANCOMYCIN HCL 1.5 GM in SOD CHLORIDE 0.9% 250 ML IVPB SCH ×2 (04:27→17:06)
[2019-02-19] MEDS: metroNIDAZOLE 500 MG/NS (PMX) 100 ML IVPB SCH ×3 (05:57→21:38)
[2019-02-19] MEDS: [UNRECOGNIZED DRUG - OTHER] XX SCH ×3 (06:30→22:30)
[2019-02-19 08:00] VITALS: BP 100/88; PULSE 64; RESP 18
[2019-02-19] MEDS: INSULIN ASPART [NOVOLOG] 3 ML PEN SC SCH ×4 (08:00→21:13)
[2019-02-19] MEDS: DOCUSATE SODIUM 100 MG CAP PO SCH ×2 (08:52→21:04)
[2019-02-19] MEDS: EMPAGLIFLOZIN 10 MG TABLET PO SCH (08:52)
[2019-02-19] MEDS: CYCLOBENZAPRINE 10 MG TAB PO SCH ×2 (08:52→21:04)
[2019-02-19] MEDS: LINAGLIPTIN 5 MG TABLET PO SCH (08:52)
[2019-02-19] MEDS: APIXABAN 5 MG TABLET PO SCH ×2 (08:52→21:04)
[2019-02-19] MEDS: AMIODARONE 200 MG TAB PO SCH (08:53)
[2019-02-19] MEDS: GABAPENTIN 300 MG CAP PO SCH (08:53)
[2019-02-19] MEDS: FUROSEMIDE 20 MG TAB PO SCH (08:55)
[2019-02-19] MEDS: LISINOPRIL 5 MG TAB PO SCH (08:55)
[2019-02-19] MEDS: NEOMYC/POLYMYX/BACIT 30 GM OINT TOP SCH (08:56)
[2019-02-19] MEDS: DAKINS 0.0125%(1/40) 473 ML SOLUTION TP SCH (08:56)
[2019-02-19] MEDS: CYANOCOBALAMIN 1000 MCG INJ IM SCH (08:57)
[2019-02-19] MEDS: CEFEPIME 2GM/50 ML (PMX) 50 ML IVPB SCH ×2 (09:04→21:02)
[2019-02-19] MEDS: DIGOXIN 0.125 MG TAB PO SCH (13:47)
[2019-02-19 14:00] VITALS: BP 106/52; PULSE 84; RESP 20
--- NOTE | 2019-02-19 17:09 | CONS ---
Assessment/Plan Assessment/Plan Hospital Course (Demo Recall) - s/p R pop-DP bypass with non reversed GSV harvested from the thigh with endoscopic vein harvest 02/13/2019 - polymicrobial infection of non-healing ulcer of R heel. CT on 01/10/2019 did not show evidence of OM. ESR 26 on 01/09/2019 and 37 on 01/12/2019; superficial wound culture grew pseudomonas, E. Coli, enterococcus (isolated from broth only), scant proteus, and scant CoNS. ESR 23 and repeat culture on 02/06/2019 grew pseudomonas - s/p Debridement of the right calcaneal ulceration 01/13/2019; intraop culture grew E. Coli, Proteus, and Enterococcus - chronic wound of R heel, in the past the wound culture grew E. coli. repeat culture on 02/06/2019 grew pseudomonas - h/o OM of R foot, h/o 6 weeks of IV vancomycin and ceftriaxone in 2018. 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 and needs EUS with FNA to confirm the diagnosis - trauma to R knee - anemia requiring PRBC - PAF - CAD s/p CABG - HTN - CM with EF 25% - h/o AICD placement - PVD - h/o aortogram, RLE runoff and percutaneous angioplasty of the posterior tibial artery and the anterior tibial artery in 10/2018 - DM - Hgb A1c 7.6% - HLD associated with DM Recommendations: - continue 6 weeks of vancomycin iv (01/11/2019-), cefepime (restart 01/17/2019-), and metronidazole IV (01/16/2019-) through 02/22/19; will likely need further GN coverage based on yesterday's intraop cx results - f/u intraop cx results (GNR) - continue local wound care - please check weekly CBC BMP and ESR while Pt's on IV antibiotics Management discussed with patient, KAY Mazariegos, and with Dr. Urbano Consultation Date/Type/Reason Admit Date/Time January 09, 2019 at 18:17 Initial Consult Date 01/16/19 Type of Consult Infectious Disease Requesting Provider: KRISTIN PRYOR MD Date/Time of Note DATE: 02/19/19 TIME: 17:09 Exam/Review of Systems Exam Vitals Vital Signs Date Temp Pulse Resp B/P (MAP) Pulse Ox O2 O2 Flow FiO2 Time Delivery Rate 02/19/19 97.8 84 20 106/52 96 14:00 (70) 02/18/19 Nasal 15:45 Cannula Intake and Output 02/18/19 02/18/19 02/19/19 1515:00 23:00 07:00 IntakeIntake Total 450 ml 750 ml 600 ml OutputOutput Total 805 ml 1950 ml BalanceBalance -355 ml 750 ml -1350 ml Exam Constitutional: alert, oriented, well developed, other (laying comfortably in bed) Psych: no complaints, nl mood/affect Head: normocephalic, atraumatic Eyes: nl conjunctiva, nl lids, nl sclera ENMT: nl external ears & nose, nl nasal mucosa & septum, mucosa pink and moist (no thrush) Neck: supple, non-tender Respiratory: clear to auscultation, normal air movement; No labored breathing, No wheezing Cardiovascular: regular rate and rhythm, nl pulses Gastrointestinal: soft, non-tender, bowel sounds (normoactive ); No tender Genitourinary - Male: other (urinal at bedside ) Musculoskeletal: nl extremities to inspection Extremities: normal pulses, other (RUE PICC site is c/d/i ) 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: DENTAL OFFICE MANAGER II-XII intact, nl mental status, nl speech, nl strength Skin: nl turgor, other (R heel is wrapped in a c/d/i kerlix dressing. Strong palpable pulse at marked area on anterior leg above the dressing. C/d/i RLE fritz dressing) Results Result Diagram: 02/16/19 0551 02/16/19 0551 Results 24hrs Laboratory Tests Test 02/18/19 17:31 02/18/19 21:02 02/19/19 08:39 02/19/19 12:22 Bedside Glucose 128 153 107 147 Medications Medication Current Medications Amiodarone HCl (Cordarone) 200 mg DAILY PO Last administered on 02/19/19at 08:53; Admin Dose 200 MG; Start 01/10/19 at 09:00 Digoxin (Digoxin) 0.125 mg DAILY@1300 PO Last administered on 02/19/19at 13:47; Admin Dose 0.125 MG; Start 01/10/19 at 13:00 Gabapentin (Neurontin) 600 mg DAILY PO Last administered on 02/19/19 08:53; Admin Dose 600 MG; Start 01/10/19 at 09:00 Empaglifozin (Jardiance) 25 mg DAILY PO Last administered on 02/19/19 08:52; Admin Dose 25 MG; Start 01/10/19 at 09:00 Linagliptin (Tradjenta) 5 mg DAILY PO Last administered on 02/19/19 08:52; Admin Dose 5 MG; Start 01/10/19 at 09:00 Diagnostic Test (Pha) (Accu-Chek) 1 ea 02 XX Last administered on 02/17/19 02:35; Admin Dose 1 EA; Start 01/10/19 at 02:00 Miscellaneous Information 1 ea NOTE XX ; Start 01/09/19 at 21:30 Glucose (Glutose) 15 gm Q15M PRN PO DECREASED GLUCOSE; Start 01/09/19 at 21:30 Glucose (Glutose) 22.5 gm Q15M PRN PO DECREASED GLUCOSE; Start 01/09/19 at 21:30 Dextrose (D50w Syringe) 50 ml Q15M PRN IV DECREASED GLUCOSE; Start 01/09/19 at 21:30 Glucagon (Glucagen) 1 mg Q15M PRN IM DECREASED GLUCOSE; Start 01/09/19 at 21:30 Glucose (Glutose) 15 gm Q15M PRN BUCCAL DECREASED GLUCOSE; Start 01/09/19 at 21:30 Insulin Glargine (Lantus) 18 units QHS SC Last administered on 02/18/19 21:06; Admin Dose 18 UNITS; Start 01/09/19 at 22:30 Carvedilol (Coreg) 3.125 mg BID PO Last administered on 02/18/19at 20:36; Admin Dose 3.125 MG; Start 01/10/19 at 21:00 Vancomycin HCl (Vanco Iv Per Pharmacy) VANCOMYCIN PER PHARMACY PER PROTOCOL XX ; Start 01/11/19 at 02:30 Lisinopril (Zestril) 2.5 mg DAILY PO Last administered on 02/17/19 10:01; Admin Dose 2.5 MG; Start 01/13/19 at 09:00 Senna (Senokot) 1 tab DAILY PRN PO CONSTIPATION Last administered on 02/15/19 20:20; Admin Dose 1 TAB; Start 01/12/19 at 18:30 Neomycin/ Polymyxin/ Bacitracin (Neosporin Topical Oint) 1 applic DAILY TOP Last administered on 02/19/19 08:56; Admin Dose 1 APPLIC; Start 01/12/19 at 18:30 Cyanocobalamin (Vitamin B12 Inj) 1,000 mcg DAILY IM Last administered on 02/19/19 08:57; Admin Dose 1,000 MCG; Start 01/16/19 at 09:00 Metronidazole 100 ml @ 100 mls/hr Q8 IVPB Last administered on 02/19/19 13:46; Admin Dose 100 MLS/HR; Start 01/16/19 at 22:00 Cefepime HCl 50 ml @ 100 mls/hr Q12 IVPB Last administered on 02/19/19 09:04; Admin Dose 100 MLS/HR; Start 01/17/19 at 21:00 Insulin Aspart (Novolog Insulin Pen) NOVOLOG *MODERATE* ALGORITHM WITH MEALS BEDTIME SC Last administered on 02/19/19 12:23; Admin Dose 1 UNIT; Start 01/26/19 at 21:00 IV Flush (NS 10 ml) 10 ml PRN PRN IV IV PROTOCOL; Start 01/29/19 at 17:00 Docusate Sodium (Colace) 100 mg BID PO Last administered on 02/19/19 08:52; Admin Dose 100 MG; Start 02/07/19 at 21:00 Magnesium Hydroxide (Milk Of Mag) 30 ml BID PRN PO CONSTIPATION Last administered on 02/15/19 20:20; Admin Dose 30 ML; Start 02/08/19 at 14:00 Sodium Hypochlorite (Dakins Diluted (40)) 1 applic DAILY TP Last administered on 02/19/19 08:56; Admin Dose 1 APPLIC; Start 02/09/19 at 13:00 Acetaminophen (Tylenol Tab) 650 mg Q4H PRN PO MILD PAIN(1-3)OR ELEVATED TEMP; Start 02/10/19 at 22:00 Ondansetron HCl (Zofran Inj) 4 mg Q6H PRN IV NAUSEA AND/OR VOMITING; Start 02/10/19 at 22:00 Furosemide (Lasix) 20 mg DAILY PO Last administered on 02/19/19 08:55; Admin Dose 20 MG; Start 02/13/19 at 09:00 Cyclobenzaprine HCl (Flexeril) 5 mg BID PO Last administered on 02/19/19 08:52; Admin Dose 5 MG; Start 02/13/19 at 09:00 Hydromorphone HCl (Dilaudid) 2 mg Q3 PRN IV SEVERE PAIN LEVEL 7-10 Last adm inistered on 02/19/19at 17:03; Admin Dose 2 MG; Start 02/13/19 at 18:30 Apixaban (Eliquis) 2.5 mg BID PO Last administered on 02/19/19 08:52; Admin Dose 2.5 MG; Start 02/14/19 at 12:00 [facility] This patient metz... PRN PRN XX WOUND CARE; Start 02/15/19 at 04:30 Alteplase, Recombinant (Cathflo (Activase)) 2 mg MAY REPEAT X1 PRN CATHETER IF CATHETER REMAINS OCCULUDED; Start 02/15/19 at 21:00 Alteplase, Recombinant (Cathflo (Activase)) 2 mg MAY REPEAT X1 PRN CATHETER IF CATHETER REMAINS OCCULUDED; Start 02/16/19 at 04:00 Miscellaneous Information (*Order Clarification Bulletin) MEDICATION REQUIRES CLARIFICATI... Q8H XX ; Start 02/16/19 at 06:30 Vancomycin HCl 1.5 gm/Sodium Chloride 250 ml @ 83.333 mls/ hr Q12H IVPB Last administered on 02/19/19at 17:06; Admin Dose 83.333 MLS/HR; Start 02/19/19 at 05:00 Miscellaneous Information (*Rx Drug Level Order Reminder*) VANCO TROUGH ON 02/07... 1600 ONCE XX ; Start 02/20/19 at 16:00; Stop 02/20/19 at 16:01 LE HUTCHINS NP Feb 19, 2019 17:09
--- NOTE | 2019-02-19 18:38 | PN ---
Date/Time of Note Date/Time of Note DATE: 02/19/19 TIME: 18:35 Assessment/Plan VTE Prophylaxis Risk score (from Ns)>0 risk: 8 SCD applied (from [facility] [place]): No SCD contraindicated: bilateral LE trauma Pharmacological prophylaxis: other Lines/Catheters IV Catheter Type (from Nrsg): PICC Line Central line still needed: Yes Urinary Cath still in place: No Reason Cath still needed: urinary retention Assessment/Plan Hospital Course Patient is status post debridement of right wound with application of allograft yesterday, pain is well controlled. Pending snf facility placement. Per case management meeting in the morning no snf facility placement is available today. Assessment/Plan -Chronic peripheral vascular disease, history of angioplasty x2. Dr. Sheppard is following in vascular surgery consultation. S/p right pop DP bypass on 02/13/19. -Right heel necrotic wound. Dr. Mata is following in podiatry consultation. Status post debridement and application of allograft on 02/18/2019. Continue antibiotics per ID. Dr. Urbano is following in infection disease consultation. Will require total of 6 weeks of Vancomycin IV, Cefepime IV, and Flagyl IV through 02/22/19. 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 EUS and FNA as an outpatient to confirm GIST tumor diagnosis. Continue PPI. -New onset of anemia and hypotension requiring blood transfusion on 01/15/2019, stool for OB is negative. -Coronary artery disease, status post coronary artery bypass graft. -Cardiomyopathy with ejection fraction of 25%. Continue Coreg. Dr. Foster is following in cardiology consultation. -Status post AICD. -Hx of Hypertension. -Diabetes hemoglobin A1c 7.6. Continue Lantus and NovoLog. -Right knee contusion and abrasion status post fall. Status post evaluation by Dr. Zelaya and orthopedic surgery. No signs of fracture or dystrophic dislocation. -Chronic low back pain with significant spondylolisthesis grade II at the level of L5 to S1. Status post evaluation and pain management by Dr. Robertson and pain management consultation. Further recommendations based on clinical course. Plan of care discussed with Dr. Mann. Result Diagram: 02/16/19 0551 02/16/19 0551 Results 24hrs Laboratory Tests Test 02/18/19 21:02 02/19/19 08:39 02/19/19 12:22 02/19/19 17:42 Bedside Glucose 153 107 147 122 Exam/Review of Systems Exam Vitals Vital Signs Date Temp Pulse Resp B/P (MAP) Pulse Ox O2 O2 Flow FiO2 Time Delivery Rate 02/19/19 97.8 84 20 106/52 96 14:00 (70) 02/18/19 Nasal 15:45 Cannula Intake and Output 02/18/19 02/18/19 02/19/19 1515:00 23:00 07:00 IntakeIntake Total 450 ml 750 ml 600 ml OutputOutput Total 805 ml 1950 ml BalanceBalance -355 ml 750 ml -1350 ml Exam Constitutional: alert, oriented Respiratory: clear to auscultation Cardiovascular: regular rhythm and rate, AICD Gastrointestinal: soft, non-tender Extremities: normal pulses, other (Right heel wound, R leg surgical incision covered with dressing) RUE PICC Results Results 24hrs Laboratory Tests Test 02/18/19 21:02 02/19/19 08:39 02/19/19 12:22 02/19/19 17:42 Bedside Glucose 153 107 147 122 Medications Medication Current Medications Amiodarone HCl (Cordarone) 200 mg DAILY PO Last administered on 02/19/19 08:53; Admin Dose 200 MG; Start 01/10/19 at 09:00 Digoxin (Digoxin) 0.125 mg DAILY@1300 PO Last administered on 02/19/19 13:47; Admin Dose 0.125 MG; Start 01/10/19 at 13:00 Gabapentin (Neurontin) 600 mg DAILY PO Last administered on 02/19/19 08:53; Admin Dose 600 MG; Start 01/10/19 at 09:00 Empaglifozin (Jardiance) 25 mg DAILY PO Last administered on 02/19/19 08:52; Admin Dose 25 MG; Start 01/10/19 at 09:00 Linagliptin (Tradjenta) 5 mg DAILY PO Last administered on 02/19/19 08:52; Admin Dose 5 MG; Start 01/10/19 at 09:00 Diagnostic Test (Pha) (Accu-Chek) 1 ea 02 XX Last administered on 02/17/19at 02:35; Admin Dose 1 EA; Start 01/10/19 at 02:00 Miscellaneous Information 1 ea NOTE XX ; Start 01/09/19 at 21:30 Glucose (Glutose) 15 gm Q15M PRN PO DECREASED GLUCOSE; Start 01/09/19 at 21:30 Glucose (Glutose) 22.5 gm Q15M PRN PO DECREASED GLUCOSE; Start 01/09/19 at 21:30 Dextrose (D50w Syringe) 50 ml Q15M PRN IV DECREASED GLUCOSE; Start 01/09/19 at 21:30 Glucagon (Glucagen) 1 mg Q15M PRN IM DECREASED GLUCOSE; Start 01/09/19 at 21:30 Glucose (Glutose) 15 gm Q15M PRN BUCCAL DECREASED GLUCOSE; Start 01/09/19 at 21:30 Insulin Glargine (Lantus) 18 units QHS SC Last administered on 02/18/19 21:06; Admin Dose 18 UNITS; Start 01/09/19 at 22:30 Carvedilol (Coreg) 3.125 mg BID PO Last administered on 02/18/19 20:36; Admin Dose 3.125 MG; Start 01/10/19 at 21:00 Vancomycin HCl (Vanco Iv Per Pharmacy) VANCOMYCIN PER PHARMACY PER PROTOCOL XX ; Start 01/11/19 at 02:30 Lisinopril (Zestril) 2.5 mg DAILY PO Last administered on 02/17/19 10:01; Admin Dose 2.5 MG; Start 01/13/19 at 09:00 Senna (Senokot) 1 tab DAILY PRN PO CONSTIPATION Last administered on 02/15/19 20:20; Admin Dose 1 TAB; Start 01/12/19 at 18:30 Neomycin/ Polymyxin/ Bacitracin (Neosporin Topical Oint) 1 applic DAILY TOP Last administered on 02/19/19 08:56; Admin Dose 1 APPLIC; Start 01/12/19 at 18:30 Cyanocobalamin (Vitamin B12 Inj) 1,000 mcg DAILY IM Last administered on 02/07 08:57; Admin Dose 1,000 MCG; Start 01/16/19 at 09:00 Metronidazole 100 ml @ 100 mls/hr Q8 IVPB Last administered on 02/19/19at 13:46; Admin Dose 100 MLS/HR; Start 01/16/19 at 22:00 Cefepime HCl 50 ml @ 100 mls/hr Q12 IVPB Last administered on 02/19/19 09:04; Admin Dose 100 MLS/HR; Start 01/17/19 at 21:00 Insulin Aspart (Novolog Insulin Pen) NOVOLOG *MODERATE* ALGORITHM WITH MEALS BEDTIME SC Last administered on 02/19/19 12:23; Admin Dose 1 UNIT; Start 01/26/19 at 21:00 IV Flush (NS 10 ml) 10 ml PRN PRN IV IV PROTOCOL; Start 01/29/19 at 17:00 Docusate Sodium (Colace) 100 mg BID PO Last administered on 02/19/19 08:52; Admin Dose 100 MG; Start 02/07/19 at 21:00 Magnesium Hydroxide (Milk Of Mag) 30 ml BID PRN PO CONSTIPATION Last administered on 02/15/19 20:20; Admin Dose 30 ML; Start 02/08/19 at 14:00 Sodium Hypochlorite (Dakins Diluted ()) 1 applic DAILY TP Last administered on 02/19/19 08:56; Admin Dose 1 APPLIC; Start 02/09/19 at 13:00 Acetaminophen (Tylenol Tab) 650 mg Q4H PRN PO MILD PAIN(1-3)OR ELEVATED TEMP; Start 02/10/19 at 22:00 Ondansetron HCl (Zofran Inj) 4 mg Q6H PRN IV NAUSEA AND/OR VOMITING; Start 02/10/19 at 22:00 Furosemide (Lasix) 20 mg DAILY PO Last administered on 02/19/19 08:55; Admin Dose 20 MG; Start 02/13/19 at 09:00 Cyclobenzaprine HCl (Flexeril) 5 mg BID PO Last administered on 02/19/19 08:52; Admin Dose 5 MG; Start 02/13/19 at 09:00 Hydromorphone HCl (Dilaudid) 2 mg Q3 PRN IV SEVERE PAIN LEVEL 7-10 Last administered on 02/19/19 17:03; Admin Dose 2 MG; Start 02/13/19 at 18:30 Apixaban (Eliquis) 2.5 mg BID PO Last administered on 02/19/19 08:52; Admin Dose 2.5 MG; Start 02/14/19 at 12:00 Miscellaneous Information ([facility] This patient metz... PRN PRN XX WOUND CARE; Start 02/15/19 at 04:30 Alteplase, Recombinant (Cathflo (Activase)) 2 mg MAY REPEAT X1 PRN CATHETER IF CATHETER REMAINS OCCULUDED; Start 02/15/19 at 21:00 Alteplase, Recombinant (Cathflo (Activase)) 2 mg MAY REPEAT X1 PRN CATHETER IF CATHETER REMAINS OCCULUDED; Start 02/16/19 at 04:00 Miscellaneous Information (*Order Clarification Bulletin) MEDICATION REQUIRES CLARIFICATI... Q8H XX ; Start 02/16/19 at 06:30 Vancomycin HCl 1.5 gm/Sodium Chloride 250 ml @ 83.333 mls/ hr Q12H IVPB Last administered on 02/19/19at 17:06; Admin Dose 83.333 MLS/HR; Start 02/19/19 at 05:00 Miscellaneous Information (*Rx Drug Level Order Reminder*) VANCO TROUGH ON 02/07... 1600 ONCE XX ; Start 02/20/19 at 16:00; Stop 02/20/19 at 16:01 RAMESH SOLORZANO Feb 19, 2019 18:38
[2019-02-19 19:39] VITALS: BP 119/66; PULSE 102; RESP 17
--- NOTE | 2019-02-19 20:36 | CONS ---
Assessment/Plan Assessment/Plan Hospital Course (Demo Recall) IMP: 1.Pre-op for peripheral bypass surgery. Lexiscan with no ischemia/+scar EF 28%. Echo EF 25%. OK to proceed to surgery at moderate CV risk. Now POD#3 s/p R POP- DP peripheral bypass. 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 Now POD#1 s/p POP to DP r side 7.DM 8. 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 Recc: -On tele -Continue digoxin -Continue coreg and zestril for treatment of cardiomyopathy -Continue amiodarone -Continue abx's and f/u cx data -local wound care -Contine lasix po daily and follow volume status closely -pain control -Continue eliquis -s/p debridement of ulcer/continue local wound care Consultation Date/Type/Reason Admit Date/Time January 09, 2019 at 18:17 Initial Consult Date 01/10/19 Type of Consult Cardiology Reason for Consultation cardiomyopathy Requesting Provider: KRISTIN PRYOR MD Date/Time of Note DATE: 02/19/19 TIME: 20:34 Exam/Review of Systems Vital Signs Vitals Vital Signs Date Temp Pulse Resp B/P (MAP) Pulse Ox O2 O2 Flow FiO2 Time Delivery Rate 02/19/19 99.5 102 17 119/66 95 19:39 (83) 02/18/19 Nasal 15:45 Cannula Intake and Output 02/18/19 02/18/19 02/19/19 1515:00 23:00 07:00 IntakeIntake Total 450 ml 750 ml 600 ml OutputOutput Total 805 ml 1950 ml BalanceBalance -355 ml 750 ml -1350 ml Exam Exam Review of Systems: CONSTITUTIONAL: No fevers, chills. PULMONARY: No sob CARDIOVASCULAR: No chest pain/palpitations GASTROINTESTINAL: No nausea/vomiting. GENITOURINARY: No hematuria/dysuria. MUSCULOSKELETAL: improving foor pain PSYCHIATRIC: The patient denies depression. NEUROLOGIC: No weakness Constitutional: alert Psych: no complaints Head: normocephalic ENMT: mucosa pink and moist Neck: supple Respiratory: clear to auscultation Cardiovascular: regular rate and rhythm Gastrointestinal: soft, non-tender Musculoskeletal: muscle tone (normal) Extremities: edema (none) 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: other (no focal deficts) Labs Result Diagram: 02/16/1955002/16/19550 Results 24hrs Laboratory Tests Test 02/18/19 21:02 02/19/19 08:39 02/19/19 12:22 02/19/19 17:42 Bedside Glucose 153 107 147 122 Medications Medications Current Medications Amiodarone HCl (Cordarone) 200 mg DAILY PO Last administered on 02/19/19at 08:53; Admin Dose 200 MG; Start 01/10/19 at 09:00 Digoxin (Digoxin) 0.125 mg DAILY@1300 PO Last administered on 02/19/19 13:47; Admin Dose 0.125 MG; Start 01/10/19 at 13:00 Gabapentin (Neurontin) 600 mg DAILY PO Last administered on 02/19/19 08:53; Admin Dose 600 MG; Start 01/10/19 at 09:00 Empaglifozin (Jardiance) 25 mg DAILY PO Last administered on 02/19/19at 08:52; Admin Dose 25 MG; Start 01/10/19 at 09:00 Linagliptin (Tradjenta) 5 mg DAILY PO Last administered on 02/19/19at 08:52; Admin Dose 5 MG; Start 01/10/19 at 09:00 Diagnostic Test (Pha) (Accu-Chek) 1 ea 02 XX Last administered on 02/17/19at 02:35; Admin Dose 1 EA; Start 01/10/19 at 02:00 Miscellaneous Information 1 ea NOTE XX ; Start 01/09/19 at 21:30 Glucose (Glutose) 15 gm Q15M PRN PO DECREASED GLUCOSE; Start 01/09/19 at 21:30 Glucose (Glutose) 22.5 gm Q15M PRN PO DECREASED GLUCOSE; Start 01/09/19 at 21:30 Dextrose (D50w Syringe) 50 ml Q15M PRN IV DECREASED GLUCOSE; Start 01/09/19 at 21:30 Glucagon (Glucagen) 1 mg Q15M PRN IM DECREASED GLUCOSE; Start 01/09/19 at 21:30 Glucose (Glutose) 15 gm Q15M PRN BUCCAL DECREASED GLUCOSE; Start 01/09/19 at 21:30 Insulin Glargine (Lantus) 18 units QHS SC Last administered on 02/18/19 21:06; Admin Dose 18 UNITS; Start 01/09/19 at 22:30 Carvedilol (Coreg) 3.125 mg BID PO Last administered on 02/18/19 20:36; Admin Dose 3.125 MG; Start 01/10/19 at 21:00 Vancomycin HCl (Vanco Iv Per Pharmacy) VANCOMYCIN PER PHARMACY PER PROTOCOL XX ; Start 01/11/19 at 02:30 Lisinopril (Zestril) 2.5 mg DAILY PO Last administered on 02/17/19 10:01; Admin Dose 2.5 MG; Start 01/13/19 at 09:00 Senna (Senokot) 1 tab DAILY PRN PO CONSTIPATION Last administered on 02/15/19 20:20; Admin Dose 1 TAB; Start 01/12/19 at 18:30 Neomycin/ Polymyxin/ Bacitracin (Neosporin Topical Oint) 1 applic DAILY TOP Last administered on 02/19/19 08:56; Admin Dose 1 APPLIC; Start 01/12/19 at 18:30 Cyanocobalamin (Vitamin B12 Inj) 1,000 mcg DAILY IM Last administered on 02/19/19 08:57; Admin Dose 1,000 MCG; Start 01/16/19 at 09:00 Metronidazole 100 ml @ 100 mls/hr Q8 IVPB Last administered on 02/19/19 13:46; Admin Dose 100 MLS/HR; Start 01/16/19 at 22:00 Cefepime HCl 50 ml @ 100 mls/hr Q12 IVPB Last administered on 02/19/19 09:04; Admin Dose 100 MLS/HR; Start 01/17/19 at 21:00 Insulin Aspart (Novolog Insulin Pen) NOVOLOG *MODERATE* ALGORITHM WITH MEALS BEDTIME SC Last administered on 02/19/19 12:23; Admin Dose 1 UNIT; Start 01/26/19 at 21:00 IV Flush (NS 10 ml) 10 ml PRN PRN IV IV PROTOCOL; Start 01/29/19 at 17:00 Docusate Sodium (Colace) 100 mg BID PO Last administered on 02/19/19 08:52; Admin Dose 100 MG; Start 02/07/19 at 21:00 Magnesium Hydroxide (Milk Of Mag) 30 ml BID PRN PO CONSTIPATION Last administered on 02/15/19 20:20; Admin Dose 30 ML; Start 02/08/19 at 14:00 Sodium Hypochlorite (Dakins Diluted ()) 1 applic DAILY TP Last administered on 02/19/19 08:56; Admin Dose 1 APPLIC; Start 02/09/19 at 13:00 Acetaminophen (Tylenol Tab) 650 mg Q4H PRN PO MILD PAIN(1-3)OR ELEVATED TEMP; Start 02/10/19 at 22:00 Ondansetron HCl (Zofran Inj) 4 mg Q6H PRN IV NAUSEA AND/OR VOMITING; Start 02/10/19 at 22:00 Furosemide (Lasix) 20 mg DAILY PO Last administered on 02/19/19 08:55; Admin Dose 20 MG; Start 02/13/19 at 09:00 Cyclobenzaprine HCl (Flexeril) 5 mg BID PO Last administered on 02/19/19 08:52; Admin Dose 5 MG; Start 02/13/19 at 09:00 Hydromorphone HCl (Dilaudid) 2 mg Q3 PRN IV SEVERE PAIN LEVEL 7-10 Last ad ministered on 02/19/19at 17:03; Admin Dose 2 MG; Start 02/13/19 at 18:30 Apixaban (Eliquis) 2.5 mg BID PO Last administered on 02/19/19 08:52; Admin Dose 2.5 MG; Start 02/14/19 at 12:00 Miscellaneous Information (Pending [facility] Order For Wound Care) This patient metz... PRN PRN XX WOUND CARE; Start 02/15/19 at 04:30 Alteplase, Recombinant (Cathflo (Activase)) 2 mg MAY REPEAT X1 PRN CATHETER IF CATHETER REMAINS OCCULUDED; Start 02/15/19 at 21:00 Alteplase, Recombinant (Cathflo (Activase)) 2 mg MAY REPEAT X1 PRN CATHETER IF CATHETER REMAINS OCCULUDED; Start 02/16/19 at 04:00 Miscellaneous Information (*Order Clarification Bulletin) MEDICATION REQUIRES CLARIFICATI... Q8H XX ; Start 02/16/19 at 06:30 Vancomycin HCl 1.5 gm/Sodium Chloride 250 ml @ 83.333 mls/ hr Q12H IVPB Last administered on 02/19/19at 17:06; Admin Dose 83.333 MLS/HR; Start 02/19/19 at 05:00 Miscellaneous Information (*Rx Drug Level Order Reminder*) VANCO TROUGH ON 02/07... 1600 ONCE XX ; Start 02/20/19 at 16:00; Stop 02/20/19 at 16:01 VERO ARELLANO Feb 19, 2019 20:36
[2019-02-19] MEDS: INSULIN GLARGINE [LANTus] (100 UNITS/ML) SYG SC SCH (21:12)
[2019-02-20] MEDS: HYDROmorphONE 2 MG/ML SYG IV PRN ×8 (00:38→23:01)
[2019-02-20] MEDS: ACCU-CHEK XX SCH (02:00)
[2019-02-20 02:08] VITALS: BP 98/67; PULSE 86; RESP 17
[2019-02-20] MEDS: VANCOMYCIN HCL 1.5 GM in SOD CHLORIDE 0.9% 250 ML IVPB SCH ×2 (04:59→17:44)
--- NOTE | 2019-02-20 05:17 | PN ---
Date/Time of Note Date/Time of Note DATE: 02/20/19 TIME: 05:16 Assessment/Plan VTE Prophylaxis Risk score (from Ns)>0 risk: 11 SCD applied (from [facility] [place]): No SCD contraindicated: other Pharmacological prophylaxis: other Pharm contraindication: other Lines/Catheters IV Catheter Type (from Nrsg): PICC Line Central line still needed: Yes Urinary Cath still in place: No Assessment/Plan Assessment/Plan -Chronic peripheral vascular disease, history of angioplasty x2. Dr. Sheppard is following in vascular surgery consultation. S/p right pop DP bypass on 02/13/19. -Right heel necrotic wound. Dr. Mata is following in podiatry consultation. Status post debridement and application of allograft on 02/18/2019. Continue antibiotics per ID. Dr. Urbano is following in infection disease consultation. Will require total of 6 weeks of Vancomycin IV, Cefepime IV, and Flagyl IV through 02/22/19. 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 EUS and FNA as an outpatient to confirm GIST tumor diagnosis. Continue PPI. -New onset of anemia and hypotension requiring blood transfusion on 01/15/2019, stool for OB is negative. -Coronary artery disease, status post coronary artery bypass graft. -Cardiomyopathy with ejection fraction of 25%. Continue Coreg. Dr. Foster is following in cardiology consultation. -Status post AICD. -Hx of Hypertension. -Diabetes hemoglobin A1c 7.6. Continue Lantus and NovoLog. -Right knee contusion and abrasion status post fall. Status post evaluation by Dr. Zelaya and orthopedic surgery. No signs of fracture or dystrophic dislocation. -Chronic low back pain with significant spondylolisthesis grade II at the level of L5 to S1. Status post evaluation and pain management by Dr. Robertson and pain management consultation. Further recommendations based on clinical course. Plan of care discussed with Dr. Mann. Result Diagram: 02/16/19 0551 02/16/1951 Results 24hrs Laboratory Tests Test 02/19/19 08:39 02/19/19 12:22 02/19/19 17:42 02/19/19 21:10 Bedside Glucose 107 147 122 205 Test 02/20/19 02:06 Bedside Glucose 136 Subjective 24 Hr Interval Summary Free Text/Dictation c/o right foot pain no event reported overnight Constitutional: no complaints ENT: no complaints Respiratory: no complaints Cardiovascular: no complaints Gastrointestinal: no complaints Musculoskeletal: bone/joint pain, restricted range of motion Psychological: nl mood/affect Exam/Review of Systems Exam Vitals Vital Signs Date Temp Pulse Resp B/P (MAP) Pulse Ox O2 O2 Flow FiO2 Time Delivery Rate 02/20/19 98.2 86 17 98/67 (77) 98 02:08 02/18/19 Nasal 15:45 Cannula Intake and Output 02/19/19 02/19/19 02/20/19 1515:00 23:00 07:00 IntakeIntake Total 1000 ml 1670 ml 200 ml OutputOutput Total 1200 ml 1750 ml 1000 ml BalanceBalance -200 ml -80 ml -800 ml Constitutional: alert, oriented, well developed Psych: nl mood/affect Head: atraumatic Eyes: nl lids, nl sclera ENMT: nl external ears & nose Neck: non-tender Respiratory: clear to auscultation Cardiovascular: nl pulses, other (s1s2) Gastrointestinal: soft, non-tender Musculoskeletal: joint tenderness, muscle weakness, range of motion Extremities: edema 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: nl mental status, nl speech Skin: other Lymph: nontender Results Results 24hrs Laboratory Tests Test 02/19/19 08:39 02/19/19 12:22 02/19/19 17:42 02/19/19 21:10 Bedside Glucose 107 147 122 205 Test 02/20/19 02:06 Bedside Glucose 136 Medications Medication Current Medications Amiodarone HCl (Cordarone) 200 mg DAILY PO Last administered on 02/19/19 08:53; Admin Dose 200 MG; Start 01/10/19 at 09:00 Digoxin (Digoxin) 0.125 mg DAILY@1300 PO Last administered on 02/19/19at 13:47; Admin Dose 0.125 MG; Start 01/10/19 at 13:00 Gabapentin (Neurontin) 600 mg DAILY PO Last administered on 02/19/19 08:53; Admin Dose 600 MG; Start 01/10/19 at 09:00 Empaglifozin (Jardiance) 25 mg DAILY PO Last administered on 02/19/19 08:52; Admin Dose 25 MG; Start 01/10/19 at 09:00 Linagliptin (Tradjenta) 5 mg DAILY PO Last administered on 02/19/19 08:52; Admin Dose 5 MG; Start 01/10/19 at 09:00 Diagnostic Test (Pha) (Accu-Chek) 1 ea 02 XX Last administered on 02/17/19 02:35; Admin Dose 1 EA; Start 01/10/19 at 02:00 Miscellaneous Information 1 ea NOTE XX ; Start 01/09/19 at 21:30 Glucose (Glutose) 15 gm Q15M PRN PO DECREASED GLUCOSE; Start 01/09/19 at 21:30 Glucose (Glutose) 22.5 gm Q15M PRN PO DECREASED GLUCOSE; Start 01/09/19 at 21:30 Dextrose (D50w Syringe) 50 ml Q15M PRN IV DECREASED GLUCOSE; Start 01/09/19 at 21:30 Glucagon (Glucagen) 1 mg Q15M PRN IM DECREASED GLUCOSE; Start 01/09/19 at 21:30 Glucose (Glutose) 15 gm Q15M PRN BUCCAL DECREASED GLUCOSE; Start 01/09/19 at 21:30 Insulin Glargine (Lantus) 18 units QHS SC Last administered on 02/19/19 21:12; Admin Dose 18 UNITS; Start 01/09/19 at 22:30 Carvedilol (Coreg) 3.125 mg BID PO Last administered on 02/19/19 21:04; Admin Dose 3.125 MG; Start 01/10/19 at 21:00 Vancomycin HCl (Vanco Iv Per Pharmacy) VANCOMYCIN PER PHARMACY PER PROTOCOL XX ; Start 01/11/19 at 02:30 Lisinopril (Zestril) 2.5 mg DAILY PO Last administered on 02/17/19 10:01; Admin Dose 2.5 MG; Start 01/13/19 at 09:00 Senna (Senokot) 1 tab DAILY PRN PO CONSTIPATION Last administered on 02/15/19 20:20; Admin Dose 1 TAB; Start 01/12/19 at 18:30 Neomycin/ Polymyxin/ Bacitracin (Neosporin Topical Oint) 1 applic DAILY TOP Last administered on 02/19/19 08:56; Admin Dose 1 APPLIC; Start 01/12/19 at 18:30 Cyanocobalamin (Vitamin B12 Inj) 1,000 mcg DAILY IM Last administered on 02/19/19 08:57; Admin Dose 1,000 MCG; Start 01/16/19 at 09:00 Metronidazole 100 ml @ 100 mls/hr Q8 IVPB Last administered on 02/19/19 21:38; Admin Dose 100 MLS/HR; Start 01/16/19 at 22:00 Cefepime HCl 50 ml @ 100 mls/hr Q12 IVPB Last administered on 02/19/19 21:02; Admin Dose 100 MLS/HR; Start 01/17/19 at 21:00 Insulin Aspart (Novolog Insulin Pen) NOVOLOG *MODERATE* ALGORITHM WITH MEALS BEDTIME SC Last administered on 02/19/19 21:13; Admin Dose 1 UNIT; Start 01/26/19 at 21:00 IV Flush (NS 10 ml) 10 ml PRN PRN IV IV PROTOCOL; Start 01/29/19 at 17:00 Docusate Sodium (Colace) 100 mg BID PO Last administered on 02/19/19 21:04; Admin Dose 100 MG; Start 02/07/19 at 21:00 Magnesium Hydroxide (Milk Of Mag) 30 ml BID PRN PO CONSTIPATION Last administered on 02/15/19 20:20; Admin Dose 30 ML; Start 02/08/19 at 14:00 Sodium Hypochlorite (Dakins Diluted (/40)) 1 applic DAILY TP Last administered on 02/19/19 08:56; Admin Dose 1 APPLIC; Start 02/09/19 at 13:00 Acetaminophen (Tylenol Tab) 650 mg Q4H PRN PO MILD PAIN(1-3)OR ELEVATED TEMP; Start 02/10/19 at 22:00 Ondansetron HCl (Zofran Inj) 4 mg Q6H PRN IV NAUSEA AND/OR VOMITING; Start 02/10/19 at 22:00 Furosemide (Lasix) 20 mg DAILY PO Last administered on 02/19/19 08:55; Admin Dose 20 MG; Start 02/13/19 at 09:00 Cyclobenzaprine HCl (Flexeril) 5 mg BID PO Last administered on 02/19/19 21:04; Admin Dose 5 MG; Start 02/13/19 at 09:00 Hydromorphone HCl (Dilaudid) 2 mg Q3 PRN IV SEVERE PAIN LEVEL 7-10 Last administered on 02/20/19 03:50; Admin Dose 2 MG; Start 02/13/19 at 18:30 Apixaban (Eliquis) 2.5 mg BID PO Last administered on 02/19/19at 21:04; Admin Dose 2.5 MG; Start 02/14/19 at 12:00 Miscellaneous Information (Pending [facility] Order For Wound Care) This patient metz... PRN PRN XX WOUND CARE; Start 02/15/19 at 04:30 Alteplase, Recombinant (Cathflo (Activase)) 2 mg MAY REPEAT X1 PRN CATHETER IF CATHETER REMAINS OCCULUDED; Start 02/15/19 at 21:00 Alteplase, Recombinant (Cathflo (Activase)) 2 mg MAY REPEAT X1 PRN CATHETER IF CATHETER REMAINS OCCULUDED; Start 02/16/19 at 04:00 Miscellaneous Information (*Order Clarification Bulletin) MEDICATION REQUIRES CLARIFICATI... Q8H XX ; Start 02/16/19 at 06:30 Vancomycin HCl 1.5 gm/Sodium Chloride 250 ml @ 83.333 mls/ hr Q12H IVPB Last administered on 02/20/19at 04:59; Admin Dose 83.333 MLS/HR; Start 02/19/19 at 05:00 Miscellaneous Information (*Rx Drug Level Order Reminder*) VANCO TROUGH ON 02/07... 1600 ONCE XX ; Start 02/20/19 at 16:00; Stop 02/20/19 at 16:01 MARTINE PUENTES Feb 20, 2019 05:17
[2019-02-20] MEDS: metroNIDAZOLE 500 MG/NS (PMX) 100 ML IVPB SCH ×3 (05:59→21:43)
[2019-02-20] MEDS: [UNRECOGNIZED DRUG - OTHER] XX SCH ×3 (06:30→21:49)
[2019-02-20 08:00] VITALS: BP 111/65; PULSE 83; RESP 18
[2019-02-20] MEDS: INSULIN ASPART [NOVOLOG] 3 ML PEN SC SCH ×4 (08:00→20:31)
[2019-02-20] MEDS: EMPAGLIFLOZIN 10 MG TABLET PO SCH (08:24)
[2019-02-20] MEDS: DOCUSATE SODIUM 100 MG CAP PO SCH ×2 (08:25→20:20)
[2019-02-20] MEDS: LISINOPRIL 5 MG TAB PO SCH (08:25)
[2019-02-20] MEDS: FUROSEMIDE 20 MG TAB PO SCH (08:25)
[2019-02-20] MEDS: CYCLOBENZAPRINE 10 MG TAB PO SCH ×2 (08:26→20:21)
[2019-02-20] MEDS: GABAPENTIN 300 MG CAP PO SCH (08:27)
[2019-02-20] MEDS: AMIODARONE 200 MG TAB PO SCH (08:27)
[2019-02-20] MEDS: LINAGLIPTIN 5 MG TABLET PO SCH (08:27)
[2019-02-20] MEDS: APIXABAN 5 MG TABLET PO SCH ×2 (08:27→20:21)
[2019-02-20] MEDS: CYANOCOBALAMIN 1000 MCG INJ IM SCH (08:28)
[2019-02-20] MEDS ORDERED: HYDROmorphONE 1 MG/ML SYG IV ONE (10:46)
[2019-02-20] MEDS: CEFEPIME 2GM/50 ML (PMX) 50 ML IVPB SCH ×2 (11:10→20:56)
[2019-02-20] MEDS: DAKINS 0.0125%(1/40) 473 ML SOLUTION TP SCH (11:10)
[2019-02-20 14:00] VITALS: BP 110/65; PULSE 82; RESP 20
[2019-02-20] MEDS: DIGOXIN 0.125 MG TAB PO SCH (14:39)
[2019-02-20] MEDS: NEOMYC/POLYMYX/BACIT 30 GM OINT TOP SCH (14:44)
--- NOTE | 2019-02-20 15:02 | CONS ---
Assessment/Plan Assessment/Plan Hospital Course (Demo Recall) - s/p R pop-DP bypass with non reversed GSV harvested from the thigh with endoscopic vein harvest 02/13/2019 - polymicrobial infection of non-healing ulcer of R heel. CT on 01/10/2019 did not show evidence of OM. ESR 26 on 01/09/2019 and 37 on 01/12/2019; superficial wound culture grew pseudomonas, E. Coli, enterococcus (isolated from broth only), scant proteus, and scant CoNS. ESR 23 and repeat culture on 02/06/2019 grew pseudomonas - s/p Debridement of the right calcaneal ulceration 01/13/2019; intraop culture grew E. Coli, Proteus, and Enterococcus - chronic wound of R heel, in the past the wound culture grew E. coli. repeat culture on 02/06/2019 grew pseudomonas - h/o OM of R foot, h/o 6 weeks of IV vancomycin and ceftriaxone in 2018. 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 Recommend an additional 4-6 weeks to try and salvage his foot. Trending of ESR and procalc in weeks to come along with potential further imaging will help to further delineate abx duration. - Recommend: very closey outpatient f/u with ID - continue local wound care - please check weekly CBC BMP and ESR while Pt's on IV antibiotics Consultation Date/Type/Reason Admit Date/Time January 09, 2019 at 18:17 Initial Consult Date 01/10/19 Requesting Provider: KRISTIN PRYOR MD Date/Time of Note DATE: 02/20/19 TIME: 14:59 Exam/Review of Systems Exam Vitals Vital Signs Date Temp Pulse Resp B/P (MAP) Pulse Ox O2 O2 Flow FiO2 Time Delivery Rate 02/20/19 98.6 83 18 111/65 96 08:00 (80) 02/18/19 Nasal 15:45 Cannula Intake and Output 02/19/19 02/19/19 02/20/19 1515:00 23:00 07:00 IntakeIntake Total 1000 ml 1670 ml 300 ml OutputOutput Total 1200 ml 1750 ml 1000 ml BalanceBalance -200 ml -80 ml -700 ml Results Result Diagram: 02/20/19 0442 02/20/19 0442 Results 24hrs Laboratory Tests Test 02/19/19 17:42 02/19/19 21:10 02/20/19 02:06 02/20/19 04:42 Bedside Glucose 122 205 136 White Blood Count 11.0 H Red Blood Count 3.92 L Hemoglobin 11.0 L Hematocrit 35.2 L Mean Corpuscular 89.8 Volume Mean Corpuscular 28.1 L Hemoglobin Mean Corpuscular 31.3 L Hemoglobin Concent Red Cell 15.3 H Distribution Width Platelet Count 334 # Mean Platelet Volume 10.8 H Immature 0.400 Granulocytes % Neutrophils % 63.8 Lymphocytes % 19.3 Monocytes % 12.7 H Eosinophils % 3.4 Basophils % 0.4 Nucleated Red Blood 0.0 Cells % Immature 0.040 H Granulocytes # Neutrophils # 7.0 Lymphocytes # 2.1 Monocytes # 1.4 H Eosinophils # 0.4 Basophils # 0.0 Nucleated Red Blood 0.0 Cells # Sodium Level 137 Potassium Level 4.8 Chloride Level 101 Carbon Dioxide Level 29 Anion Gap 7 Blood Urea Nitrogen 17 Creatinine 0.62 Est Glomerular > 60 Filtrat Rate mL/min Glucose Level 126 Calcium Level 9.0 Test 02/20/19 08:01 02/20/19 12:28 Bedside Glucose 121 127 Medications Medication Current Medications Amiodarone HCl (Cordarone) 200 mg DAILY PO Last administered on 02/20/19at 08:27; Admin Dose 200 MG; Start 01/10/19 at 09:00 Digoxin (Digoxin) 0.125 mg DAILY@1300 PO Last administered on 02/20/19at 14:39; Admin Dose 0.125 MG; Start 01/10/19 at 13:00 Gabapentin (Neurontin) 600 mg DAILY PO Last administered on 02/20/19 08:27; Admin Dose 600 MG; Start 01/10/19 at 09:00 Empaglifozin (Jardiance) 25 mg DAILY PO Last administered on 02/20/19 08:24; Admin Dose 25 MG; Start 01/10/19 at 09:00 Linagliptin (Tradjenta) 5 mg DAILY PO Last administered on 02/20/19 08:27; Admin Dose 5 MG; Start 01/10/19 at 09:00 Diagnostic Test (Pha) (Accu-Chek) 1 ea 02 XX Last administered on 02/17/19at 02:35; Admin Dose 1 EA; Start 01/10/19 at 02:00 Miscellaneous Information 1 ea NOTE XX ; Start 01/09/19 at 21:30 Glucose (Glutose) 15 gm Q15M PRN PO DECREASED GLUCOSE; Start 01/09/19 at 21:30 Glucose (Glutose) 22.5 gm Q15M PRN PO DECREASED GLUCOSE; Start 01/09/19 at 21:30 Dextrose (D50w Syringe) 50 ml Q15M PRN IV DECREASED GLUCOSE; Start 01/09/19 at 21:30 Glucagon (Glucagen) 1 mg Q15M PRN IM DECREASED GLUCOSE; Start 01/09/19 at 21:30 Glucose (Glutose) 15 gm Q15M PRN BUCCAL DECREASED GLUCOSE; Start 01/09/19 at 21:30 Insulin Glargine (Lantus) 18 units QHS SC Last administered on 02/19/19at 21:12; Admin Dose 18 UNITS; Start 01/09/19 at 22:30 Carvedilol (Coreg) 3.125 mg BID PO Last administered on 02/20/19 08:28; Admin Dose 3.125 MG; Start 01/10/19 at 21:00 Vancomycin HCl (Vanco Iv Per Pharmacy) VANCOMYCIN PER PHARMACY PER PROTOCOL XX ; Start 01/11/19 at 02:30 Lisinopril (Zestril) 2.5 mg DAILY PO Last administered on 02/20/19 08:25; Admin Dose 2.5 MG; Start 01/13/19 at 09:00 Senna (Senokot) 1 tab DAILY PRN PO CONSTIPATION Last administered on 02/15/19 20:20; Admin Dose 1 TAB; Start 01/12/19 at 18:30 Neomycin/ Polymyxin/ Bacitracin (Neosporin Topical Oint) 1 applic DAILY TOP Last administered on 02/20/19 14:44; Admin Dose 1 APPLIC; Start 01/12/19 at 18:30 Cyanocobalamin (Vitamin B12 Inj) 1,000 mcg DAILY IM Last administered on 02/20/19 08:28; Admin Dose 1,000 MCG; Start 01/16/19 at 09:00 Metronidazole 100 ml @ 100 mls/hr Q8 IVPB Last administered on 02/20/19 14:39; Admin Dose 100 MLS/HR; Start 01/16/19 at 22:00 Cefepime HCl 50 ml @ 100 mls/hr Q12 IVPB Last administered on 02/20/19 11:10; Admin Dose 100 MLS/HR; Start 01/17/19 at 21:00 Insulin Aspart (Novolog Insulin Pen) NOVOLOG *MODERATE* ALGORITHM WITH MEALS BEDTIME SC Last administered on 02/19/19 21:13; Admin Dose 1 UNIT; Start 01/26/19 at 21:00 IV Flush (NS 10 ml) 10 ml PRN PRN IV IV PROTOCOL; Start 01/29/19 at 17:00 Docusate Sodium (Colace) 100 mg BID PO Last administered on 02/20/19 08:25; Admin Dose 100 MG; Start 02/07/19 at 21:00 Magnesium Hydroxide (Milk Of Mag) 30 ml BID PRN PO CONSTIPATION Last administ ered on 02/15/19 20:20; Admin Dose 30 ML; Start 02/08/19 at 14:00 Sodium Hypochlorite (Dakins Diluted (40)) 1 applic DAILY TP Last administered on 02/19/19 08:56; Admin Dose 1 APPLIC; Start 02/09/19 at 13:00 Acetaminophen (Tylenol Tab) 650 mg Q4H PRN PO MILD PAIN(1-3)OR ELEVATED TEMP; Start 02/10/19 at 22:00 Ondansetron HCl (Zofran Inj) 4 mg Q6H PRN IV NAUSEA AND/OR VOMITING; Start 02/10/19 at 22:00 Furosemide (Lasix) 20 mg DAILY PO Last administered on 02/20/19 08:25; Admin Dose 20 MG; Start 02/13/19 at 09:00 Cyclobenzaprine HCl (Flexeril) 5 mg BID PO Last administered on 02/20/19at 08:26; Admin Dose 5 MG; Start 02/13/19 at 09:00 Hydromorphone HCl (Dilaudid) 2 mg Q3 PRN IV SEVERE PAIN LEVEL 7-10 Last administered on 02/20/19at 13:10; Admin Dose 2 MG; Start 02/13/19 at 18:30 Apixaban (Eliquis) 2.5 mg BID PO Last administered on 02/20/19at 08:27; Admin Dose 2.5 MG; Start 02/14/19 at 12:00 Miscellaneous Information (Pending [facility]yl Order For Wound Care) This patient metz... PRN PRN XX WOUND CARE; Start 02/15/19 at 04:30 Alteplase, Recombinant (Cathflo (Activase)) 2 mg MAY REPEAT X1 PRN CATHETER IF CATHETER REMAINS OCCULUDED; Start 02/15/19 at 21:00 Alteplase, Recombinant (Cathflo (Activase)) 2 mg MAY REPEAT X1 PRN CATHETER IF CATHETER REMAINS OCCULUDED; Start 02/16/19 at 04:00 Miscellaneous Information (*Order Clarification Bulletin) MEDICATION REQUIRES CLARIFICATI... Q8H XX ; Start 02/16/19 at 06:30 Vancomycin HCl 1.5 gm/Sodium Chloride 250 ml @ 83.333 mls/ hr Q12H IVPB Last administered on 02/20/19at 04:59; Admin Dose 83.333 MLS/HR; Start 02/19/19 at 05:00 Miscellaneous Information (*Rx Drug Level Order Reminder*) VANCO TROUGH ON 02/07... 1600 ONCE XX ; Start 02/20/19 at 16:00; Stop 02/20/19 at 16:01 Acetaminophen/ Hydrocodone Bitart ([place] (5/325)) 1 tab Q4H PRN PO MODERATE PAIN LEVEL 4-6; Start 02/20/19 at 14:00 DENITA WOMACK MD Feb 20, 2019 15:02
[2019-02-20] MEDS: HYDROCODONE/APAP (5/325) TAB PO PRN (15:41)
--- NOTE | 2019-02-20 17:07 | CONS ---
Assessment/Plan Assessment/Plan Hospital Course (Demo Recall) IMP: 1.Pre-op for peripheral bypass surgery. Lexiscan with no ischemia/+scar EF 28%. Echo EF 25%. OK to proceed to surgery at moderate CV risk. Now POD#3 s/p R POP- DP peripheral bypass. 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 Now POD#1 s/p POP to DP r side 7.DM 8. 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 Recc: -On tele -Continue digoxin -Continue coreg and zestril for treatment of cardiomyopathy -Continue amiodarone -Continue abx's and f/u cx data -local wound care -Contine lasix po daily and follow volume status closely -pain control -Continue eliquis -s/p debridement of ulcer/continue local wound care Consultation Date/Type/Reason Admit Date/Time January 09, 2019 at 18:17 Initial Consult Date 01/10/19 Type of Consult Cardiology Reason for Consultation Preop Requesting Provider: KRISTIN PRYOR MD Date/Time of Note DATE: 02/20/19 TIME: 17:06 Exam/Review of Systems Vital Signs Vitals Vital Signs Date Temp Pulse Resp B/P (MAP) Pulse Ox O2 O2 Flow FiO2 Time Delivery Rate 02/20/19 98.6 82 20 110/65 96 14:00 (80) 02/18/19 Nasal 15:45 Cannula Intake and Output 02/19/19 02/19/19 02/20/19 1515:00 23:00 07:00 IntakeIntake Total 1000 ml 1670 ml 300 ml OutputOutput Total 1200 ml 1750 ml 1000 ml BalanceBalance -200 ml -80 ml -700 ml Exam Exam Review of Systems: CONSTITUTIONAL: No fevers, chills. PULMONARY: No sob CARDIOVASCULAR: No chest pain/palpitations GASTROINTESTINAL: No nausea/vomiting. GENITOURINARY: No hematuria/dysuria. MUSCULOSKELETAL: No myagias/arthalgias. PSYCHIATRIC: The patient denies depression. NEUROLOGIC: No weakness Constitutional: alert Psych: no complaints Head: normocephalic ENMT: mucosa pink and moist Neck: supple, jvd (9 cm water) Respiratory: diminished breath sounds Cardiovascular: regular rate and rhythm Gastrointestinal: soft, non-tender Musculoskeletal: muscle tone (normal) Extremities: edema (none) 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: other (NO focal deficits) Labs Result Diagram: 02/20/192 02/20/19 0442 Results 24hrs Laboratory Tests Test 02/19/19 17:42 02/19/19 21:10 02/20/19 02:06 02/20/19 04:42 Bedside Glucose 122 205 136 White Blood Count 11.0 H Red Blood Count 3.92 L Hemoglobin 11.0 L Hematocrit 35.2 L Mean Corpuscular 89.8 Volume Mean Corpuscular 28.1 L Hemoglobin Mean Corpuscular 31.3 L Hemoglobin Concent Red Cell 15.3 H Distribution Width Platelet Count 334 # Mean Platelet Volume 10.8 H Immature 0.400 Granulocytes % Neutrophils % 63.8 Lymphocytes % 19.3 Monocytes % 12.7 H Eosinophils % 3.4 Basophils % 0.4 Nucleated Red Blood 0.0 Cells % Immature 0.040 H Granulocytes # Neutrophils # 7.0 Lymphocytes # 2.1 Monocytes # 1.4 H Eosinophils # 0.4 Basophils # 0.0 Nucleated Red Blood 0.0 Cells # Sodium Level 137 Potassium Level 4.8 Chloride Level 101 Carbon Dioxide Level 29 Anion Gap 7 Blood Urea Nitrogen 17 Creatinine 0.62 Est Glomerular > 60 Filtrat Rate mL/min Glucose Level 126 Calcium Level 9.0 Test 02/20/19 08:01 02/20/19 12:28 Bedside Glucose 121 127 Medications Medications Current Medications Amiodarone HCl (Cordarone) 200 mg DAILY PO Last administered on 02/20/19at 08:27; Admin Dose 200 MG; Start 01/10/19 at 09:00 Digoxin (Digoxin) 0.125 mg DAILY@1300 PO Last administered on 02/20/19at 14:39; Admin Dose 0.125 MG; Start 01/10/19 at 13:00 Gabapentin (Neurontin) 600 mg DAILY PO Last administered on 02/20/19at 08:27; Admin Dose 600 MG; Start 01/10/19 at 09:00 Empaglifozin (Jardiance) 25 mg DAILY PO Last administered on 02/20/19 08:24; Admin Dose 25 MG; Start 01/10/19 at 09:00 Linagliptin (Tradjenta) 5 mg DAILY PO Last administered on 02/20/19 08:27; Admin Dose 5 MG; Start 01/10/19 at 09:00 Diagnostic Test (Pha) (Accu-Chek) 1 ea 02 XX Last administered on 02/17/19 02:35; Admin Dose 1 EA; Start 01/10/19 at 02:00 Miscellaneous Information 1 ea NOTE XX ; Start 01/09/19 at 21:30 Glucose (Glutose) 15 gm Q15M PRN PO DECREASED GLUCOSE; Start 01/09/19 at 21:30 Glucose (Glutose) 22.5 gm Q15M PRN PO DECREASED GLUCOSE; Start 01/09/19 at 21:30 Dextrose (D50w Syringe) 50 ml Q15M PRN IV DECREASED GLUCOSE; Start 01/09/19 at 21:30 Glucagon (Glucagen) 1 mg Q15M PRN IM DECREASED GLUCOSE; Start 01/09/19 at 21:30 Glucose (Glutose) 15 gm Q15M PRN BUCCAL DECREASED GLUCOSE; Start 01/09/19 at 21:30 Insulin Glargine (Lantus) 18 units QHS SC Last administered on 02/19/19 21:12; Admin Dose 18 UNITS; Start 01/09/19 at 22:30 Carvedilol (Coreg) 3.125 mg BID PO Last administered on 02/20/19 08:28; Admin Dose 3.125 MG; Start 01/10/19 at 21:00 Vancomycin HCl (Vanco Iv Per Pharmacy) VANCOMYCIN PER PHARMACY PER PROTOCOL XX ; Start 01/11/19 at 02:30 Lisinopril (Zestril) 2.5 mg DAILY PO Last administered on 02/20/19 08:25; Admin Dose 2.5 MG; Start 01/13/19 at 09:00 Senna (Senokot) 1 tab DAILY PRN PO CONSTIPATION Last administered on 02/15/19 20:20; Admin Dose 1 TAB; Start 01/12/19 at 18:30 Neomycin/ Polymyxin/ Bacitracin (Neosporin Topical Oint) 1 applic DAILY TOP Last administered on 02/20/19 14:44; Admin Dose 1 APPLIC; Start 01/12/19 at 18:30 Cyanocobalamin (Vitamin B12 Inj) 1,000 mcg DAILY IM Last administered on 02/20/19 08:28; Admin Dose 1,000 MCG; Start 01/16/19 at 09:00 Metronidazole 100 ml @ 100 mls/hr Q8 IVPB Last administered on 02/20/19 14:39; Admin Dose 100 MLS/HR; Start 01/16/19 at 22:00 Cefepime HCl 50 ml @ 100 mls/hr Q12 IVPB Last administered on 02/20/19 11:10; Admin Dose 100 MLS/HR; Start 01/17/19 at 21:00 Insulin Aspart (Novolog Insulin Pen) NOVOLOG *MODERATE* ALGORITHM WITH MEALS BEDTIME SC Last administered on 02/19/19 21:13; Admin Dose 1 UNIT; Start 01/26/19 at 21:00 IV Flush (NS 10 ml) 10 ml PRN PRN IV IV PROTOCOL; Start 01/29/19 at 17:00 Docusate Sodium (Colace) 100 mg BID PO Last administered on 02/20/19 08:25; Admin Dose 100 MG; Start 02/07/19 at 21:00 Magnesium Hydroxide (Milk Of Mag) 30 ml BID PRN PO CONSTIPATION Last administered on 02/15/19 20:20; Admin Dose 30 ML; Start 02/08/19 at 14:00 Sodium Hypochlorite (Dakins Diluted (/40)) 1 applic DAILY TP Last administered on 02/19/19 08:56; Admin Dose 1 APPLIC; Start 02/09/19 at 13:00 Acetaminophen (Tylenol Tab) 650 mg Q4H PRN PO MILD PAIN(1-3)OR ELEVATED TEMP; Start 02/10/19 at 22:00 Ondansetron HCl (Zofran Inj) 4 mg Q6H PRN IV NAUSEA AND/OR VOMITING; Start 02/10/19 at 22:00 Furosemide (Lasix) 20 mg DAILY PO Last administered on 02/20/19 08:25; Admin Dose 20 MG; Start 02/13/19 at 09:00 Cyclobenzaprine HCl (Flexeril) 5 mg BID PO Last administered on 02/20/19 08:26; Admin Dose 5 MG; Start 02/13/19 at 09:00 Hydromorphone HCl (Dilaudid) 2 mg Q3 PRN IV SEVERE PAIN LEVEL 7-10 Last administered on 6/14/19at 16:15; Admin Dose 2 MG; Start 02/13/19 at 18:30 Apixaban (Eliquis) 2.5 mg BID PO Last administered on 02/20/19at 08:27; Admin Dose 2.5 MG; Start 02/14/19 at 12:00 Miscellaneous Information (Pending [facility] Order For Wound Care) This patient metz... PRN PRN XX WOUND CARE; Start 02/15/19 at 04:30 Alteplase, Recombinant (Cathflo (Activase)) 2 mg MAY REPEAT X1 PRN CATHETER IF CATHETER REMAINS OCCULUDED; Start 02/15/19 at 21:00 Alteplase, Recombinant (Cathflo (Activase)) 2 mg MAY REPEAT X1 PRN CATHETER IF CATHETER REMAINS OCCULUDED; Start 02/16/19 at 04:00 Miscellaneous Information (*Order Clarification Bulletin) MEDICATION REQUIRES CLARIFICATI... Q8H XX ; Start 02/16/19 at 06:30 Vancomycin HCl 1.5 gm/Sodium Chloride 250 ml @ 83.333 mls/ hr Q12H IVPB Last administered on 02/20/19at 04:59; Admin Dose 83.333 MLS/HR; Start 02/19/19 at 05:00 Acetaminophen/ Hydrocodone Bitart ([place] (5/325)) 1 tab Q4H PRN PO MODERATE PAIN LEVEL 4-6 Last administered on 02/20/19at 15:41; Admin Dose 1 TAB; Start 02/20/19 at 14:00 VERO ARELLANO Feb 20, 2019 17:07
[2019-02-20 20:00] VITALS: BP 106/65; PULSE 84; RESP 17
[2019-02-20] MEDS: MAGNESIUM HYDROXIDE 30ML CUP PO PRN (20:20)
[2019-02-20] MEDS: INSULIN GLARGINE [LANTus] (100 UNITS/ML) SYG SC SCH (20:29)
[2019-02-21] MEDS: ACCU-CHEK XX SCH ×2 (01:20→22:52)
[2019-02-21 02:00] VITALS: BP 101/66; PULSE 77; RESP 18
[2019-02-21] MEDS: HYDROmorphONE 2 MG/ML SYG IV PRN ×6 (02:03→21:32)
[2019-02-21] MEDS: VANCOMYCIN HCL 1.5 GM in SOD CHLORIDE 0.9% 250 ML IVPB SCH ×2 (05:22→17:12)
[2019-02-21] MEDS: [UNRECOGNIZED DRUG - OTHER] XX SCH ×3 (06:30→20:35)
[2019-02-21 07:55] VITALS: BP 102/62; PULSE 68; RESP 18
[2019-02-21] MEDS: INSULIN ASPART [NOVOLOG] 3 ML PEN SC SCH ×4 (08:00→20:23)
[2019-02-21] MEDS: DAKINS 0.0125%(1/40) 473 ML SOLUTION TP SCH (09:00)
[2019-02-21] MEDS: DOCUSATE SODIUM 100 MG CAP PO SCH ×2 (09:17→20:21)
[2019-02-21] MEDS: CYANOCOBALAMIN 1000 MCG INJ IM SCH (09:17)
[2019-02-21] MEDS: metroNIDAZOLE 500 MG/NS (PMX) 100 ML IVPB SCH ×3 (09:17→21:43)
[2019-02-21] MEDS: AMIODARONE 200 MG TAB PO SCH (09:18)
[2019-02-21] MEDS: LINAGLIPTIN 5 MG TABLET PO SCH (09:19)
[2019-02-21] MEDS: GABAPENTIN 300 MG CAP PO SCH (09:19)
[2019-02-21] MEDS: FUROSEMIDE 20 MG TAB PO SCH (09:19)
[2019-02-21] MEDS: CYCLOBENZAPRINE 10 MG TAB PO SCH ×2 (09:19→20:18)
[2019-02-21] MEDS: APIXABAN 5 MG TABLET PO SCH ×2 (09:19→20:22)
[2019-02-21] MEDS: LISINOPRIL 5 MG TAB PO SCH (09:20)
[2019-02-21] MEDS: EMPAGLIFLOZIN 10 MG TABLET PO SCH (09:20)
[2019-02-21] MEDS: NEOMYC/POLYMYX/BACIT 30 GM OINT TOP SCH (09:23)
--- NOTE | 2019-02-21 09:57 | CONS ---
Assessment/Plan Assessment/Plan Assessment/Plan (Daily) #Gastric mass -pt to have EUS and FNA ans an out patient. 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 Coli, Proteus, and Enterococcus -continue IV abx per ID - SP right pop bypass # Anemia-normocytic- Hgb 11.0 -Hg currently stable > 9 -likely 2/2 GI bleed -continue to hold all blood thinners -CT A/P does not reveal evidence of bleed -f/u endoscopy. pt was found with a T3.5 cm mass/filling defect arising along the lesser curvature of the stomach - consistent with GIST tumor Patient seen in collaboration with Dr Hancock /freda staff Consultation Date/Type/Reason Admit Date/Time January 09, 2019 at 18:17 Initial Consult Date 01/16/19 Type of Consult ONCOLOGY/HEMATOLOGY Reason for Consultation Anemia Gastric mass Requesting Provider: KRISTIN PRYOR MD Date/Time of Note DATE: 02/21/19 TIME: 09:56 24 HR Interval Summary Free Text/Dictation - No GI bleeding reported - Hgb 11.0 no events reported overnight Detailed Summary Eyes: no complaints ENT: no complaints Respiratory: no complaints Cardiovascular: no complaints Gastrointestinal: no complaints Genitourinary: no complaints Musculoskeletal: bone/joint pain, restricted range of motion Skin: other Neurologic: no complaints Endocrine: no complaints Exam/Review of Systems Exam Vitals Vital Signs Date Temp Pulse Resp B/P (MAP) Pulse Ox O2 O2 Flow FiO2 Time Delivery Rate 02/21/19 97.6 68 18 102/62 96 Room Air 07:55 (75) Intake and Output 02/20/19 02/20/19 02/21/19 1515:00 23:00 07:00 IntakeIntake Total 650 ml 900 ml 2700 ml OutputOutput Total 1500 ml 1500 ml BalanceBalance 650 ml -600 ml 1200 ml Constitutional: alert, oriented, well developed Psych: nl mood/affect Head: normocephalic Eyes: nl lids, nl sclera ENMT: nl external ears & nose Neck: non-tender Respiratory: clear to auscultation Cardiovascular: nl pulses, other (s1s2) Gastrointestinal: soft, non-tender Musculoskeletal: joint tenderness, range of motion Extremities: edema 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: nl speech Lymph: nontender Results Result Diagram: 02/20/19 0442 02/20/19 0442 Results 24hrs Laboratory Tests Test 02/20/19 12:28 02/20/19 16:04 02/20/19 17:32 02/20/19 20:25 Bedside Glucose 127 141 142 Vancomycin Level 13.6 Trough Test 02/21/19 08:21 Bedside Glucose 106 Medications Medication Current Medications Amiodarone HCl (Cordarone) 200 mg DAILY PO Last administered on 02/21/19at 09:18; Admin Dose 200 MG; Start 01/10/19 at 09:00 Digoxin (Digoxin) 0.125 mg DAILY@1300 PO Last administered on 02/20/19at 14:39; Admin Dose 0.125 MG; Start 01/10/19 at 13:00 Gabapentin (Neurontin) 600 mg DAILY PO Last administered on 02/21/19at 09:19; Admin Dose 600 MG; Start 01/10/19 at 09:00 Empaglifozin (Jardiance) 25 mg DAILY PO Last administered on 02/21/19at 09:20; Admin Dose 25 MG; Start 01/10/19 at 09:00 Linagliptin (Tradjenta) 5 mg DAILY PO Last administered on 02/21/19at 09:19; Admin Dose 5 MG; Start 01/10/19 at 09:00 Diagnostic Test (Pha) (Accu-Chek) 1 ea 02 XX Last administered on 02/17/19at 02:35; Admin Dose 1 EA; Start 01/10/19 at 02:00 Miscellaneous Information 1 ea NOTE XX ; Start 01/09/19 at 21:30 Glucose (Glutose) 15 gm Q15M PRN PO DECREASED GLUCOSE; Start 01/09/19 at 21:30 Glucose (Glutose) 22.5 gm Q15M PRN PO DECREASED GLUCOSE; Start 01/09/19 at 21:30 Dextrose (D50w Syringe) 50 ml Q15M PRN IV DECREASED GLUCOSE; Start 01/09/19 at 21:30 Glucagon (Glucagen) 1 mg Q15M PRN IM DECREASED GLUCOSE; Start 01/09/19 at 21:30 Glucose (Glutose) 15 gm Q15M PRN BUCCAL DECREASED GLUCOSE; Start 01/09/19 at 21:30 Insulin Glargine (Lantus) 18 units QHS SC Last administered on 02/20/19 20:29; Admin Dose 18 UNITS; Start 01/09/19 at 22:30 Carvedilol (Coreg) 3.125 mg BID PO Last administered on 02/20/19 20:21; Admin Dose 3.125 MG; Start 01/10/19 at 21:00 Vancomycin HCl (Vanco Iv Per Pharmacy) VANCOMYCIN PER PHARMACY PER PROTOCOL XX ; Start 01/11/19 at 02:30 Lisinopril (Zestril) 2.5 mg DAILY PO Last administered on 02/21/19 09:20; Admin Dose 2.5 MG; Start 01/13/19 at 09:00 Senna (Senokot) 1 tab DAILY PRN PO CONSTIPATION Last administered on 02/15/19 20:20; Admin Dose 1 TAB; Start 01/12/19 at 18:30 Neomycin/ Polymyxin/ Bacitracin (Neosporin Topical Oint) 1 applic DAILY TOP Last administered on 02/21/19 09:23; Admin Dose 1 APPLIC; Start 01/12/19 at 18:30 Cyanocobalamin (Vitamin B12 Inj) 1,000 mcg DAILY IM Last administered on 02/21/19 09:17; Admin Dose 1,000 MCG; Start 01/16/19 at 09:00 Metronidazole 100 ml @ 100 mls/hr Q8 IVPB Last administered on 02/21/19 09:17; Admin Dose 100 MLS/HR; Start 01/16/19 at 22:00 Cefepime HCl 50 ml @ 100 mls/hr Q12 IVPB Last administered on 02/20/19 20:56; Admin Dose 100 MLS/HR; Start 01/17/19 at 21:00 Insulin Aspart (Novolog Insulin Pen) NOVOLOG *MODERATE* ALGORITHM WITH MEALS BEDTIME SC Last administered on 02/20/19 17:36; Admin Dose 2 UNIT; Start 01/26/19 at 21:00 IV Flush (NS 10 ml) 10 ml PRN PRN IV IV PROTOCOL Last administered on 02/21/19 08:27; Admin Dose 10 ML; Start 01/29/19 at 17:00 Docusate Sodium (Colace) 100 mg BID PO Last administered on 02/21/19 09:17; Admin Dose 100 MG; Start 02/07/19 at 21:00 Magnesium Hydroxide (Milk Of Mag) 30 ml BID PRN PO CONSTIPATION Last administered on 02/20/19 20:20; Admin Dose 30 ML; Start 02/08/19 at 14:00 Sodium Hypochlorite (Dakins Diluted ()) 1 applic DAILY TP Last administered on 02/19/19at 08:56; Admin Dose 1 APPLIC; Start 02/09/19 at 13:00 Acetaminophen (Tylenol Tab) 650 mg Q4H PRN PO MILD PAIN(1-3)OR ELEVATED TEMP; Start 02/10/19 at 22:00 Ondansetron HCl (Zofran Inj) 4 mg Q6H PRN IV NAUSEA AND/OR VOMITING; Start 02/10/19 at 22:00 Furosemide (Lasix) 20 mg DAILY PO Last administered on 02/21/19at 09:19; Admin Dose 20 MG; Start 02/13/19 at 09:00 Cyclobenzaprine HCl (Flexeril) 5 mg BID PO Last administered on 02/21/19 09:19; Admin Dose 5 MG; Start 02/13/19 at 09:00 Hydromorphone HCl (Dilaudid) 2 mg Q3 PRN IV SEVERE PAIN LEVEL 7-10 Last administered on 02/21/19at 08:27; Admin Dose 2 MG; Start 02/13/19 at 18:30 Apixaban (Eliquis) 2.5 mg BID PO Last administered on 02/21/19 09:19; Admin Dose 2.5 MG; Start 02/14/19 at 12:00 Miscellaneous Information (Pending Santyl Order For Wound Care) This patient metz... PRN PRN XX WOUND CARE; Start 02/15/19 at 04:30 Alteplase, Recombinant (Cathflo (Activase)) 2 mg MAY REPEAT X1 PRN CATHETER IF CATHETER REMAINS OCCULUDED; Start 02/15/19 at 21:00 Alteplase, Recombinant (Cathflo (Activase)) 2 mg MAY REPEAT X1 PRN CATHETER IF CATHETER REMAINS OCCULUDED; Start 02/16/19 at 04:00 Miscellaneous Information (*Order Clarification Bulletin) MEDICATION REQUIRES CLARIFICATI... Q8H XX ; Start 02/16/19 at 06:30 Vancomycin HCl 1.5 gm/Sodium Chloride 250 ml @ 83.333 mls/ hr Q12H IVPB Last administered on 02/21/19at 05:22; Admin Dose 83.333 MLS/HR; Start 02/19/19 at 05:00 Acetaminophen/ Hydrocodone Bitart ([place] (5/325)) 1 tab Q4H PRN PO MODERATE PAIN LEVEL 4-6 Last administered on 02/20/19at 15:41; Admin Dose 1 TAB; Start 02/20/19 at 14:00 MARTINE PUENTES Feb 21, 2019 09:57
--- NOTE | 2019-02-21 10:05 | CONS ---
[facility] Name: Humble Zayas Unit Number: [id number] Date of : 1955 Patient Status: Admitted Inpatient Attending Doctor: Kristin Pryor MD Edit: CARMITA GARCIA M.D. 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 CT on 01/10/2019 did not show evidence of OM. ESR 26 on 01/09/2019 and 37 on 01/12/2019; superficial wound culture grew pseudomonas, E. Coli, enterococcus (isolated from broth only), scant proteus, and scant CoNS. ESR 23 and repeat culture on 02/06/2019 grew pseudomonas - s/p Debridement of the right calcaneal ulceration 01/13/2019; intraop culture grew E. Coli, Proteus, and Enterococcus - chronic wound of R heel, in the past the wound culture grew E. coli. repeat culture on 02/06/2019 grew pseudomonas - S/p debridement of R calcaneal ulceration with allograft placement 02/18/19, intraop culture grew Pseudomonas and enterococcus species - h/o OM of R foot, h/o 6 weeks of IV vancomycin and ceftriaxone in 2018. 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 Recommend an additional 4-6 weeks to try and salvage his foot. Trending of ESR and procalc in weeks to come along with potential further imaging will help to further delineate abx duration. - Recommend: very close outpatient f/u with ID - continue local wound care - please check weekly CBC BMP and ESR while Pt's on IV antibiotics Plan was d/w patient, and with Dr. Garcia. Consultation Date/Type/Reason Admit Date/Time January 09, 2019 at 18:17 Initial Consult Date 01/10/19 Type of Consult ID Requesting Provider: KRISTIN PRYOR MD Date/Time of Note DATE: 02/21/19 TIME: 10:00 24 HR Interval Summary Free Text/Dictation The patient states he was in a large amt of pain yesterday after wound vac placement, but that today it is "more tolerable." Reports poor appetite yesterday, looking forward to going home soon. Denies fevers, chills, night sweats, sob, cp, n/v/d, dysuria, pruritis, rash. Afebrile. WBC 11. Exam/Review of Systems Exam Vitals Vital Signs Date Temp Pulse Resp B/P (MAP) Pulse Ox O2 O2 Flow FiO2 Time Delivery Rate 02/21/19 97.6 68 18 102/62 96 Room Air 07:55 (75) Allergies Coded Allergies No Known Allergy (Unverified01/09/19) Intake and Output 02/20/19 02/20/19 02/21/19 1515:00 23:00 07:00 IntakeIntake Total 650 ml 900 ml 2700 ml OutputOutput Total 1500 ml 1500 ml BalanceBalance 650 ml -600 ml 1200 ml Exam Constitutional: alert, oriented, well developed, other (laying comfortably in bed - sleeping, easily awakened via verbal stimuli) Psych: no complaints, nl mood/affect Head: normocephalic, atraumatic Eyes: nl conjunctiva, nl lids, nl sclera ENMT: nl external ears & nose, nl nasal mucosa & septum, mucosa pink and moist (no thrush) Neck: supple, non-tender Respiratory: clear to auscultation, normal air movement; No labored breathing, No wheezing Cardiovascular: regular rate and rhythm, nl pulses Gastrointestinal: soft, non-tender, bowel sounds (normoactive); No tender Genitourinary - Male: other (urinal at bedside containing yellow urine) Musculoskeletal: nl extremities to inspection Extremities: normal pulses, other (RUE PICC site is c/d/i) 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 Strong palpable pulse at marked area on anterior leg above the dressing. C/d/i RLE fritz dressing. Reviewed pictures taken yesterday prior to wound vac placement, with teressa over the perimeter of the allograft placement post debridement) Results Result Diagram: 02/20/192 02/20/19 0442 Results 24hrs Laboratory Tests Test 02/20/19 12:28 02/20/19 16:04 02/20/19 17:32 02/20/19 20:25 Bedside Glucose 127 141 142 Vancomycin Level 13.6 Trough Test 02/21/19 08:21 Bedside Glucose 106 Imaging Imaging No new imaging Medications Medication Current Medications Amiodarone HCl (Cordarone) 200 mg DAILY PO Last administered on 02/21/19 09:18; Admin Dose 200 MG; Start 01/10/19 at 09:00 Digoxin (Digoxin) 0.125 mg DAILY@1300 PO Last administered on 02/20/19 14:39; Admin Dose 0.125 MG; Start 01/10/19 at 13:00 Gabapentin (Neurontin) 600 mg DAILY PO Last administered on 02/21/19 09:19; Admin Dose 600 MG; Start 01/10/19 at 09:00 Empaglifozin (Jardiance) 25 mg DAILY PO Last administered on 02/21/19 09:20; Admin Dose 25 MG; Start 01/10/19 at 09:00 Linagliptin (Tradjenta) 5 mg DAILY PO Last administered on 02/21/19 09:19; Admin Dose 5 MG; Start 01/10/19 at 09:00 Diagnostic Test (Pha) (Accu-Chek) 1 ea 02 XX Last administered on 02/17/19 02:35; Admin Dose 1 EA; Start 01/10/19 at 02:00 Miscellaneous Information 1 ea NOTE XX ; Start 01/09/19 at 21:30 Glucose (Glutose) 15 gm Q15M PRN PO DECREASED GLUCOSE; Start 01/09/19 at 21:30 Glucose (Glutose) 22.5 gm Q15M PRN PO DECREASED GLUCOSE; Start 01/09/19 at 21:30 Dextrose (D50w Syringe) 50 ml Q15M PRN IV DECREASED GLUCOSE; Start 01/09/19 at 21:30 Glucagon (Glucagen) 1 mg Q15M PRN IM DECREASED GLUCOSE; Start 01/09/19 at 21:30 Glucose (Glutose) 15 gm Q15M PRN BUCCAL DECREASED GLUCOSE; Start 01/09/19 at 21:30 Insulin Glargine (Lantus) 18 units QHS SC Last administered on 02/20/19 20:29; Admin Dose 18 UNITS; Start 01/09/19 at 22:30 Carvedilol (Coreg) 3.125 mg BID PO Last administered on 02/20/19 20:21; Admin Dose 3.125 MG; Start 01/10/19 at 21:00 Vancomycin HCl (Vanco Iv Per Pharmacy) VANCOMYCIN PER PHARMACY PER PROTOCOL XX ; Start 01/11/19 at 02:30 Lisinopril (Zestril) 2.5 mg DAILY PO Last administered on 02/21/19 09:20; Admin Dose 2.5 MG; Start 01/13/19 at 09:00 Senna (Senokot) 1 tab DAILY PRN PO CONSTIPATION Last administered on 02/15/19 20:20; Admin Dose 1 TAB; Start 01/12/19 at 18:30 Neomycin/ Polymyxin/ Bacitracin (Neosporin Topical Oint) 1 applic DAILY TOP Last administered on 02/21/19 09:23; Admin Dose 1 APPLIC; Start 01/12/19 at 18:30 Cyanocobalamin (Vitamin B12 Inj) 1,000 mcg DAILY IM Last administered on 02/21/19 09:17; Admin Dose 1,000 MCG; Start 01/16/19 at 09:00 Metronidazole 100 ml @ 100 mls/hr Q8 IVPB Last administered on 02/21/19 09:17; Admin Dose 100 MLS/HR; Start 01/16/19 at 22:00 Cefepime HCl 50 ml @ 100 mls/hr Q12 IVPB Last administered on 02/20/19 20:56; Admin Dose 100 MLS/HR; Start 01/17/19 at 21:00 Insulin Aspart (Novolog Insulin Pen) NOVOLOG *MODERATE* ALGORITHM WITH MEALS BEDTIME SC Last administered on 02/20/19 17:36; Admin Dose 2 UNIT; Start 01/26/19 at 21:00 IV Flush (NS 10 ml) 10 ml PRN PRN IV IV PROTOCOL Last administered on 02/21/19 08:27; Admin Dose 10 ML; Start 01/29/19 at 17:00 Docusate Sodium (Colace) 100 mg BID PO Last administered on 02/21/19 09:17; Admin Dose 100 MG; Start 02/07/19 at 21:00 Magnesium Hydroxide (Milk Of Mag) 30 ml BID PRN PO CONSTIPATION Last administered on 02/20/19 20:20; Admin Dose 30 ML; Start 02/08/19 at 14:00 Sodium Hypochlorite (Dakins Diluted (1/40)) 1 applic DAILY TP Last administered on 02/19/19 08:56; Admin Dose 1 APPLIC; Start 02/09/19 at 13:00 Acetaminophen (Tylenol Tab) 650 mg Q4H PRN PO MILD PAIN(1-3)OR ELEVATED TEMP; Start 02/10/19 at 22:00 Ondansetron HCl (Zofran Inj) 4 mg Q6H PRN IV NAUSEA AND/OR VOMITING; Start 02/10/19 at 22:00 Furosemide (Lasix) 20 mg DAILY PO Last administered on 02/21/19 09:19; Admin Dose 20 MG; Start 02/13/19 at 09:00 Cyclobenzaprine HCl (Flexeril) 5 mg BID PO Last administered on 02/21/19 09:19; Admin Dose 5 MG; Start 02/13/19 at 09:00 Hydromorphone HCl (Dilaudid) 2 mg Q3 PRN IV SEVERE PAIN LEVEL 7-10 Last a dministered on 6/15/19at 08:27; Admin Dose 2 MG; Start 02/13/19 at 18:30 Apixaban (Eliquis) 2.5 mg BID PO Last administered on 02/21/19at 09:19; Admin Dose 2.5 MG; Start 02/14/19 at 12:00 Miscellaneous Information (Pending Santyl Order For Wound Care) This patient metz... PRN PRN XX WOUND CARE; Start 02/15/19 at 04:30 Alteplase, Recombinant (Cathflo (Activase)) 2 mg MAY REPEAT X1 PRN CATHETER IF CATHETER REMAINS OCCULUDED; Start 02/15/19 at 21:00 Alteplase, Recombinant (Cathflo (Activase)) 2 mg MAY REPEAT X1 PRN CATHETER IF CATHETER REMAINS OCCULUDED; Start 02/16/19 at 04:00 Miscellaneous Information (*Order Clarification Bulletin) MEDICATION REQUIRES CLARIFICATI... Q8H XX ; Start 02/16/19 at 06:30 Vancomycin HCl 1.5 gm/Sodium Chloride 250 ml @ 83.333 mls/ hr Q12H IVPB Last administered on 02/21/19at 05:22; Admin Dose 83.333 MLS/HR; Start 02/19/19 at 05:00 Acetaminophen/ Hydrocodone Bitart ([place] (5/325)) 1 tab Q4H PRN PO MODERATE PAIN LEVEL 4-6 Last administered on 02/20/19at 15:41; Admin Dose 1 TAB; Start 02/20/19 at 14:00 FELICITY SORTO NP Feb 21, 2019 10:05
[2019-02-21] MEDS: HYDROCODONE/APAP (5/325) TAB PO PRN ×2 (10:47→20:33)
[2019-02-21] MEDS: CEFEPIME 2GM/50 ML (PMX) 50 ML IVPB SCH (10:47)
--- NOTE | 2019-02-21 11:46 | PN ---
Date/Time of Note Date/Time of Note DATE: 02/21/19 TIME: 11:45 Assessment/Plan VTE Prophylaxis Risk score (from Ns)>0 risk: 9 SCD applied (from [facility]): No SCD contraindicated: other Pharmacological prophylaxis: LMWH Lines/Catheters IV Catheter Type (from Nrsg): PICC Line Central line still needed: Yes Urinary Cath still in place: No Assessment/Plan Hospital Course -Chronic peripheral vascular disease, history of angioplasty x2. Dr. Sheppard is following in vascular surgery consultation. S/p right pop DP bypass on 02/13/19. -Right heel necrotic wound. Dr. Mata is following in podiatry consultation. Status post debridement and application of allograft on 02/18/2019. Continue antibiotics per ID. Dr. Urbano is following in infection disease consultation. Will require total of 6 weeks of Vancomycin IV, Cefepime IV, and Flagyl IV through 02/22/19. 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 EUS and FNA as an outpatient to confirm GIST tumor diagnosis. Continue PPI. -New onset of anemia and hypotension requiring blood transfusion on 01/15/2019, stool for OB is negative. -Coronary artery disease, status post coronary artery bypass graft. -Cardiomyopathy with ejection fraction of 25%. Continue Coreg. Dr. Foster is following in cardiology consultation. -Status post AICD. -Hx of Hypertension. -Diabetes hemoglobin A1c 7.6. Continue Lantus and NovoLog. -Right knee contusion and abrasion status post fall. Status post evaluation by Dr. Zelaya and orthopedic surgery. No signs of fracture or dystrophic dislocation. -Chronic low back pain with significant spondylolisthesis grade II at the level of L5 to S1. Status post evaluation and pain management by Dr. Robertson and pain management consultation. Result Diagram: 02/20/19 0442 02/20/19 0442 Results 24hrs Laboratory Tests Test 02/20/19 12:28 02/20/19 16:04 02/20/19 17:32 02/20/19 20:25 Bedside Glucose 127 141 142 Vancomycin Level 13.6 Trough Test 02/21/19 08:21 Bedside Glucose 106 Subjective 24 Hr Interval Summary Free Text/Dictation Patient denies pain related to heel infectioin Exam/Review of Systems Exam Vitals Vital Signs Date Temp Pulse Resp B/P (MAP) Pulse Ox O2 O2 Flow FiO2 Time Delivery Rate 02/21/19 97.6 68 18 102/62 96 Room Air 07:55 (75) Intake and Output 02/20/19 02/20/19 02/21/19 1515:00 23:00 07:00 IntakeIntake Total 650 ml 900 ml 2700 ml OutputOutput Total 1500 ml 1500 ml BalanceBalance 650 ml -600 ml 1200 ml Constitutional: well developed Head: normocephalic, atraumatic Neck: supple Respiratory: diminished breath sounds Cardiovascular: regular rate and rhythm Gastrointestinal: soft, non-tender Extremities: normal pulses Results Results 24hrs Laboratory Tests Test 02/20/19 12:28 02/20/19 16:04 02/20/19 17:32 02/20/19 20:25 Bedside Glucose 127 141 142 Vancomycin Level 13.6 Trough Test 02/21/19 08:21 Bedside Glucose 106 Medications Medication Current Medications Amiodarone HCl (Cordarone) 200 mg DAILY PO Last administered on 02/21/19 09:18; Admin Dose 200 MG; Start 01/10/19 at 09:00 Digoxin (Digoxin) 0.125 mg DAILY@1300 PO Last administered on 02/20/19at 14:39; Admin Dose 0.125 MG; Start 01/10/19 at 13:00 Gabapentin (Neurontin) 600 mg DAILY PO Last administered on 02/21/19 09:19; Admin Dose 600 MG; Start 01/10/19 at 09:00 Empaglifozin (Jardiance) 25 mg DAILY PO Last administered on 02/21/19 09:20; Admin Dose 25 MG; Start 01/10/19 at 09:00 Linagliptin (Tradjenta) 5 mg DAILY PO Last administered on 02/21/19 09:19; Admin Dose 5 MG; Start 01/10/19 at 09:00 Diagnostic Test (Pha) (Accu-Chek) 1 ea 02 XX Last administered on 02/17/19at 02:35; Admin Dose 1 EA; Start 01/10/19 at 02:00 Miscellaneous Information 1 ea NOTE XX ; Start 01/09/19 at 21:30 Glucose (Glutose) 15 gm Q15M PRN PO DECREASED GLUCOSE; Start 01/09/19 at 21:30 Glucose (Glutose) 22.5 gm Q15M PRN PO DECREASED GLUCOSE; Start 01/09/19 at 21:30 Dextrose (D50w Syringe) 50 ml Q15M PRN IV DECREASED GLUCOSE; Start 01/09/19 at 21:30 Glucagon (Glucagen) 1 mg Q15M PRN IM DECREASED GLUCOSE; Start 01/09/19 at 21:30 Glucose (Glutose) 15 gm Q15M PRN BUCCAL DECREASED GLUCOSE; Start 01/09/19 at 21:30 Insulin Glargine (Lantus) 18 units QHS SC Last administered on 02/20/19 20:29; Admin Dose 18 UNITS; Start 01/09/19 at 22:30 Carvedilol (Coreg) 3.125 mg BID PO Last administered on 02/20/19 20:21; Admin Dose 3.125 MG; Start 01/10/19 at 21:00 Vancomycin HCl (Vanco Iv Per Pharmacy) VANCOMYCIN PER PHARMACY PER PROTOCOL XX ; Start 01/11/19 at 02:30 Lisinopril (Zestril) 2.5 mg DAILY PO Last administered on 02/21/19 09:20; Admin Dose 2.5 MG; Start 01/13/19 at 09:00 Senna (Senokot) 1 tab DAILY PRN PO CONSTIPATION Last administered on 02/15/19 20:20; Admin Dose 1 TAB; Start 01/12/19 at 18:30 Neomycin/ Polymyxin/ Bacitracin (Neosporin Topical Oint) 1 applic DAILY TOP Last administered on 02/21/19 09:23; Admin Dose 1 APPLIC; Start 01/12/19 at 18:30 Cyanocobalamin (Vitamin B12 Inj) 1,000 mcg DAILY IM Last administered on 02/21/19 09:17; Admin Dose 1,000 MCG; Start 01/16/19 at 09:00 Metronidazole 100 ml @ 100 mls/hr Q8 IVPB Last administered on 02/21/19 09:17; Admin Dose 100 MLS/HR; Start 01/16/19 at 22:00 Cefepime HCl 50 ml @ 100 mls/hr Q12 IVPB Last administered on 02/21/19 10:47; Admin Dose 100 MLS/HR; Start 01/17/19 at 21:00 Insulin Aspart (Novolog Insulin Pen) NOVOLOG *MODERATE* ALGORITHM WITH MEALS BEDTIME SC Last administered on 02/20/19 17:36; Admin Dose 2 UNIT; Start 01/26/19 at 21:00 IV Flush (NS 10 ml) 10 ml PRN PRN IV IV PROTOCOL Last administered on 02/21/19 08:27; Admin Dose 10 ML; Start 01/29/19 at 17:00 Docusate Sodium (Colace) 100 mg BID PO Last administered on 02/21/19 09:17; Admin Dose 100 MG; Start 02/07/19 at 21:00 Magnesium Hydroxide (Milk Of Mag) 30 ml BID PRN PO CONSTIPATION Last administered on 02/20/19 20:20; Admin Dose 30 ML; Start 02/08/19 at 14:00 Sodium Hypochlorite (Dakins Diluted ()) 1 applic DAILY TP Last administered on 02/19/19 08:56; Admin Dose 1 APPLIC; Start 02/09/19 at 13:00 Acetaminophen (Tylenol Tab) 650 mg Q4H PRN PO MILD PAIN(1-3)OR ELEVATED TEMP; Start 02/10/19 at 22:00 Ondansetron HCl (Zofran Inj) 4 mg Q6H PRN IV NAUSEA AND/OR VOMITING; Start 02/10/19 at 22:00 Furosemide (Lasix) 20 mg DAILY PO Last administered on 02/21/19 09:19; Admin Dose 20 MG; Start 02/13/19 at 09:00 Cyclobenzaprine HCl (Flexeril) 5 mg BID PO Last administered on 02/21/19 09:19; Admin Dose 5 MG; Start 02/13/19 at 09:00 Hydromorphone HCl (Dilaudid) 2 mg Q3 PRN IV SEVERE PAIN LEVEL 7-10 Last administered on 02/21/19 08:27; Admin Dose 2 MG; Start 02/13/19 at 18:30 Apixaban (Eliquis) 2.5 mg BID PO Last administered on 02/21/19 09:19; Admin Do se 2.5 MG; Start 02/14/19 at 12:00 Miscellaneous Information (Pending Santyl Order For Wound Care) This patient metz... PRN PRN XX WOUND CARE; Start 02/15/19 at 04:30 Alteplase, Recombinant (Cathflo (Activase)) 2 mg MAY REPEAT X1 PRN CATHETER IF CATHETER REMAINS OCCULUDED; Start 02/15/19 at 21:00 Alteplase, Recombinant (Cathflo (Activase)) 2 mg MAY REPEAT X1 PRN CATHETER IF CATHETER REMAINS OCCULUDED; Start 02/16/19 at 04:00 Miscellaneous Information (*Order Clarification Bulletin) MEDICATION REQUIRES CLARIFICATI... Q8H XX ; Start 02/16/19 at 06:30 Vancomycin HCl 1.5 gm/Sodium Chloride 250 ml @ 83.333 mls/ hr Q12H IVPB Last administered on 02/21/19at 05:22; Admin Dose 83.333 MLS/HR; Start 02/19/19 at 05:00 Acetaminophen/ Hydrocodone Bitart ([place] (5/325)) 1 tab Q4H PRN PO MODERATE PAIN LEVEL 4-6 Last administered on 02/21/19at 10:47; Admin Dose 1 TAB; Start 02/20/19 at 14:00 PARISA VARGAS Feb 21, 2019 11:46
[2019-02-21 12:35] VITALS: PULSE 68
[2019-02-21] MEDS: DIGOXIN 0.125 MG TAB PO SCH (12:35)
[2019-02-21 14:43] VITALS: BP 111/59; PULSE 86; RESP 18
--- NOTE | 2019-02-21 17:00 | CONS ---
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 Diabetes Anemia Continue digoxin Continue Coreg Continue Zestril Continue amiodarone Continue Eliquis Continue antibiotics Wound care as scheduled Pain control as scheduled Consultation Date/Type/Reason Admit Date/Time January 09, 2019 at 18:17 Type of Consult Cardiology Date/Time of Note DATE: 02/21/19 TIME: 16:52 Past Medical History Home Meds Reported Medications Amiodarone Hcl* (Amiodarone Hcl*) 200 Mg Tablet, 200 MG PO DAILY, #30 TAB 01/09/19 Digoxin* (Digitek*) 125 Mcg Tablet, 0.125 MG PO DAILY, TAB 01/09/19 Rivaroxaban* (Xarelto*) 20 Mg Tablet, 20 MG PO WITH DINNER, TAB 01/09/19 Clopidogrel Bisulfate* (Clopidogrel Bisulfate*) 75 Mg Tablet, 75 MG PO DAILY, #30 TAB 01/09/19 Empagliflozin (Jardiance) 25 Mg Tablet, 25 MG PO DAILY, TAB 01/09/19 Insulin Glargine,Hum.rec.anlog (Basaglar Kwikpen U-100) 100 Unit/1 Ml Insuln.pen, 18 UNIT SC QHS, EA 01/09/19 Sulfamethoxazole/Trimethoprim* (Bactrim Ds* Tablet) 1 Each Tablet, 1 TAB PO BID, TAB FOR 10 DAYS,START TAKING 01/06/19 01/09/19 Tapentadol Hcl (Nucynta) 100 Mg Tablet, 100 MG PO BID, TAB 01/09/19 Gabapentin* (Gabapentin*) 600 Mg Tablet, 600 MG PO DAILY, #60 TAB 01/09/19 Metformin Hcl* (Metformin Hcl*) 1,000 Mg Tablet, 1000 MG PO WITH BREAKFAST DINNE, #60 TAB 01/09/19 Medications Current Medications Amiodarone HCl (Cordarone) 200 mg DAILY PO Last administered on 02/21/19at 09:18; Admin Dose 200 MG; Start 01/10/19 at 09:00 Digoxin (Digoxin) 0.125 mg DAILY@1300 PO Last administered on 02/21/19at 12:35; Admin Dose 0.125 MG; Start 01/10/19 at 13:00 Gabapentin (Neurontin) 600 mg DAILY PO Last administered on 02/21/19 09:19; Admin Dose 600 MG; Start 01/10/19 at 09:00 Empaglifozin (Jardiance) 25 mg DAILY PO Last administered on 02/21/19 09:20; Admin Dose 25 MG; Start 01/10/19 at 09:00 Linagliptin (Tradjenta) 5 mg DAILY PO Last administered on 02/21/19 09:19; Admin Dose 5 MG; Start 01/10/19 at 09:00 Diagnostic Test (Pha) (Accu-Chek) 1 ea 02 XX Last administered on 02/17/19at 02:35; Admin Dose 1 EA; Start 01/10/19 at 02:00 Miscellaneous Information 1 ea NOTE XX ; Start 01/09/19 at 21:30 Glucose (Glutose) 15 gm Q15M PRN PO DECREASED GLUCOSE; Start 01/09/19 at 21:30 Glucose (Glutose) 22.5 gm Q15M PRN PO DECREASED GLUCOSE; Start 01/09/19 at 21:30 Dextrose (D50w Syringe) 50 ml Q15M PRN IV DECREASED GLUCOSE; Start 01/09/19 at 21:30 Glucagon (Glucagen) 1 mg Q15M PRN IM DECREASED GLUCOSE; Start 01/09/19 at 21:30 Glucose (Glutose) 15 gm Q15M PRN BUCCAL DECREASED GLUCOSE; Start 01/09/19 at 21:30 Insulin Glargine (Lantus) 18 units QHS SC Last administered on 02/20/19at 20:29; Admin Dose 18 UNITS; Start 01/09/19 at 22:30 Carvedilol (Coreg) 3.125 mg BID PO Last administered on 02/20/19 20:21; Admin Dose 3.125 MG; Start 01/10/19 at 21:00 Vancomycin HCl (Vanco Iv Per Pharmacy) VANCOMYCIN PER PHARMACY PER PROTOCOL XX ; Start 01/11/19 at 02:30 Lisinopril (Zestril) 2.5 mg DAILY PO Last administered on 02/21/19at 09:20; Admin Dose 2.5 MG; Start 01/13/19 at 09:00 Senna (Senokot) 1 tab DAILY PRN PO CONSTIPATION Last administered on 02/15/19 20:20; Admin Dose 1 TAB; Start 01/12/19 at 18:30 Neomycin/ Polymyxin/ Bacitracin (Neosporin Topical Oint) 1 applic DAILY TOP Last administered on 02/21/19 09:23; Admin Dose 1 APPLIC; Start 01/12/19 at 18:30 Cyanocobalamin (Vitamin B12 Inj) 1,000 mcg DAILY IM Last administered on 02/21/19 09:17; Admin Dose 1,000 MCG; Start 01/16/19 at 09:00 Metronidazole 100 ml @ 100 mls/hr Q8 IVPB Last administered on 02/21/19 14:41; Admin Dose 100 MLS/HR; Start 01/16/19 at 22:00 Insulin Aspart (Novolog Insulin Pen) NOVOLOG *MODERATE* ALGORITHM WITH MEALS BEDTIME SC Last administered on 02/21/19 12:39; Admin Dose 2 UNIT; Start 01/26/19 at 21:00 IV Flush (NS 10 ml) 10 ml PRN PRN IV IV PROTOCOL Last administered on 02/21/19 08:27; Admin Dose 10 ML; Start 01/29/19 at 17:00 Docusate Sodium (Colace) 100 mg BID PO Last administered on 02/21/19 09:17; Admin Dose 100 MG; Start 02/07/19 at 21:00 Magnesium Hydroxide (Milk Of Mag) 30 ml BID PRN PO CONSTIPATION Last administered on 02/20/19 20:20; Admin Dose 30 ML; Start 02/08/19 at 14:00 Sodium Hypochlorite (Dakins Diluted (40)) 1 applic DAILY TP Last administered on 02/19/19 08:56; Admin Dose 1 APPLIC; Start 02/09/19 at 13:00 Acetaminophen (Tylenol Tab) 650 mg Q4H PRN PO MILD PAIN(1-3)OR ELEVATED TEMP; Start 02/10/19 at 22:00 Ondansetron HCl (Zofran Inj) 4 mg Q6H PRN IV NAUSEA AND/OR VOMITING; Start 02/10/19 at 22:00 Furosemide (Lasix) 20 mg DAILY PO Last administered on 02/21/19 09:19; Admin Dose 20 MG; Start 02/13/19 at 09:00 Cyclobenzaprine HCl (Flexeril) 5 mg BID PO Last administered on 02/21/19at 09:19; Admin Dose 5 MG; Start 02/13/19 at 09:00 Hydromorphone HCl (Dilaudid) 2 mg Q3 PRN IV SEVERE PAIN LEVEL 7-10 Last administered on 02/21/19at 11:55; Admin Dose 2 MG; Start 02/13/19 at 18:30 Apixaban (Eliquis) 2.5 mg BID PO Last administered on 02/21/19at 09:19; Admin Dose 2.5 MG; Start 02/14/19 at 12:00 Miscellaneous Information (Pending Santyl Order For Wound Care) This patient metz... PRN PRN XX WOUND CARE; Start 02/15/19 at 04:30 Alteplase, Recombinant (Cathflo (Activase)) 2 mg MAY REPEAT X1 PRN CATHETER IF CATHETER REMAINS OCCULUDED; Start 02/15/19 at 21:00 Alteplase, Recombinant (Cathflo (Activase)) 2 mg MAY REPEAT X1 PRN CATHETER IF CATHETER REMAINS OCCULUDED; Start 02/16/19 at 04:00 Miscellaneous Information (*Order Clarification Bulletin) MEDICATION REQUIRES CLARIFICATI... Q8H XX ; Start 02/16/19 at 06:30 Vancomycin HCl 1.5 gm/Sodium Chloride 250 ml @ 83.333 mls/ hr Q12H IVPB Last administered on 02/21/19at 05:22; Admin Dose 83.333 MLS/HR; Start 02/19/19 at 05:00 Acetaminophen/ Hydrocodone Bitart ([place] (5/325)) 1 tab Q4H PRN PO MODERATE PAIN LEVEL 4-6 Last administered on 02/21/19at 10:47; Admin Dose 1 TAB; Start 02/20/19 at 14:00 Ceftazidime 50 ml @ 100 mls/hr Q12 IVPB ; Start 02/21/19 at 21:00 Allergies: Coded Allergies: No Known Allergy (Unverified , 01/09/19) Past Surgical History Past Surgical Hx: coronary bypass surgery Social History Alcohol Use: none Smoking Status: Never smoker Exam/Review of Systems Vital Signs Vitals Vital Signs Date Temp Pulse Resp B/P (MAP) Pulse Ox O2 O2 Flow FiO2 Time Delivery Rate 02/21/19 98.0 86 18 111/59 98 Room Air 14:43 (76) Intake and Output 02/20/19 02/20/19 02/21/19 1515:00 23:00 07:00 IntakeIntake Total 650 ml 900 ml 2700 ml OutputOutput Total 1500 ml 1500 ml BalanceBalance 650 ml -600 ml 1200 ml Exam Constitutional: alert Head: normocephalic, atraumatic Respiratory: clear to auscultation Cardiovascular: regular rate and rhythm (no m/r/g) Gastrointestinal: soft, non-tender Extremities: other (s/p debridement RLE in dressing) Labs Result Diagram: 02/20/19 0442 02/20/19 0442 Results 24hrs Laboratory Tests Test 02/20/19 17:32 02/20/19 20:25 02/21/19 08:21 02/21/19 12:33 Bedside Glucose 141 142 106 148 Medications Medications Current Medications Amiodarone HCl (Cordarone) 200 mg DAILY PO Last administered on 02/21/19 09 :18; Admin Dose 200 MG; Start 01/10/19 at 09:00 Digoxin (Digoxin) 0.125 mg DAILY@1300 PO Last administered on 02/21/19at 12:35; Admin Dose 0.125 MG; Start 01/10/19 at 13:00 Gabapentin (Neurontin) 600 mg DAILY PO Last administered on 02/21/19 09:19; Admin Dose 600 MG; Start 01/10/19 at 09:00 Empaglifozin (Jardiance) 25 mg DAILY PO Last administered on 02/21/19 09:20; Admin Dose 25 MG; Start 01/10/19 at 09:00 Linagliptin (Tradjenta) 5 mg DAILY PO Last administered on 02/21/19 09:19; Admin Dose 5 MG; Start 01/10/19 at 09:00 Diagnostic Test (Pha) (Accu-Chek) 1 ea 02 XX Last administered on 02/17/19at 02:35; Admin Dose 1 EA; Start 01/10/19 at 02:00 Miscellaneous Information 1 ea NOTE XX ; Start 01/09/19 at 21:30 Glucose (Glutose) 15 gm Q15M PRN PO DECREASED GLUCOSE; Start 01/09/19 at 21:30 Glucose (Glutose) 22.5 gm Q15M PRN PO DECREASED GLUCOSE; Start 01/09/19 at 21:30 Dextrose (D50w Syringe) 50 ml Q15M PRN IV DECREASED GLUCOSE; Start 01/09/19 at 21:30 Glucagon (Glucagen) 1 mg Q15M PRN IM DECREASED GLUCOSE; Start 01/09/19 at 21:30 Glucose (Glutose) 15 gm Q15M PRN BUCCAL DECREASED GLUCOSE; Start 01/09/19 at 21:30 Insulin Glargine (Lantus) 18 units QHS SC Last administered on 02/20/19 20:29; Admin Dose 18 UNITS; Start 01/09/19 at 22:30 Carvedilol (Coreg) 3.125 mg BID PO Last administered on 02/20/19 20:21; Admin Dose 3.125 MG; Start 01/10/19 at 21:00 Vancomycin HCl (Vanco Iv Per Pharmacy) VANCOMYCIN PER PHARMACY PER PROTOCOL XX ; Start 01/11/19 at 02:30 Lisinopril (Zestril) 2.5 mg DAILY PO Last administered on 02/21/19 09:20; Admin Dose 2.5 MG; Start 01/13/19 at 09:00 Senna (Senokot) 1 tab DAILY PRN PO CONSTIPATION Last administered on 02/15/19 20:20; Admin Dose 1 TAB; Start 01/12/19 at 18:30 Neomycin/ Polymyxin/ Bacitracin (Neosporin Topical Oint) 1 applic DAILY TOP Last administered on 02/21/19 09:23; Admin Dose 1 APPLIC; Start 01/12/19 at 18:30 Cyanocobalamin (Vitamin B12 Inj) 1,000 mcg DAILY IM Last administered on 02/21/19 09:17; Admin Dose 1,000 MCG; Start 01/16/19 at 09:00 Metronidazole 100 ml @ 100 mls/hr Q8 IVPB Last administered on 02/21/19 14:41; Admin Dose 100 MLS/HR; Start 01/16/19 at 22:00 Insulin Aspart (Novolog Insulin Pen) NOVOLOG *MODERATE* ALGORITHM WITH MEALS BEDTIME SC Last administered on 02/21/19 12:39; Admin Dose 2 UNIT; Start 01/26/19 at 21:00 IV Flush (NS 10 ml) 10 ml PRN PRN IV IV PROTOCOL Last administered on 02/21/19 08:27; Admin Dose 10 ML; Start 01/29/19 at 17:00 Docusate Sodium (Colace) 100 mg BID PO Last administered on 02/21/19 09:17; Admin Dose 100 MG; Start 02/07/19 at 21:00 Magnesium Hydroxide (Milk Of Mag) 30 ml BID PRN PO CONSTIPATION Last administered on 02/20/19 20:20; Admin Dose 30 ML; Start 02/08/19 at 14:00 Sodium Hypochlorite (Dakins Diluted ()) 1 applic DAILY TP Last administered on 02/19/19 08:56; Admin Dose 1 APPLIC; Start 02/09/19 at 13:00 Acetaminophen (Tylenol Tab) 650 mg Q4H PRN PO MILD PAIN(1-3)OR ELEVATED TEMP; Start 02/10/19 at 22:00 Ondansetron HCl (Zofran Inj) 4 mg Q6H PRN IV NAUSEA AND/OR VOMITING; Start 02/10/19 at 22:00 Furosemide (Lasix) 20 mg DAILY PO Last administered on 02/21/19 09:19; Admin Dose 20 MG; Start 02/13/19 at 09:00 Cyclobenzaprine HCl (Flexeril) 5 mg BID PO Last administered on 02/21/19 09:19; Admin Dose 5 MG; Start 02/13/19 at 09:00 Hydromorphone HCl (Dilaudid) 2 mg Q3 PRN IV SEVERE PAIN LEVEL 7-10 Last administered on 02/21/19at 11:55; Admin Dose 2 MG; Start 02/13/19 at 18:30 Apixaban (Eliquis) 2.5 mg BID PO Last administered on 02/21/19 09:19; Admin Dose 2.5 MG; Start 02/14/19 at 12:00 Miscellaneous Information (Pending Santyl Order For Wound Care) This patient metz... PRN PRN XX WOUND CARE; Start 02/15/19 at 04:30 Alteplase, Recombinant (Cathflo (Activase)) 2 mg MAY REPEAT X1 PRN CATHETER IF CATHETER REMAINS OCCULUDED; Start 02/15/19 at 21:00 Alteplase, Recombinant (Cathflo (Activase)) 2 mg MAY REPEAT X1 PRN CATHETER IF CATHETER REMAINS OCCULUDED; Start 02/16/19 at 04:00 Miscellaneous Information (*Order Clarification Bulletin) MEDICATION REQUIRES CLARIFICATI... Q8H XX ; Start 02/16/19 at 06:30 Vancomycin HCl 1.5 gm/Sodium Chloride 250 ml @ 83.333 mls/ hr Q12H IVPB Last administered on 02/21/19at 05:22; Admin Dose 83.333 MLS/HR; Start 02/19/19 at 05:00 Acetaminophen/ Hydrocodone Bitart ([place] (5/325)) 1 tab Q4H PRN PO MODERATE PAIN LEVEL 4-6 Last administered on 02/21/19at 10:47; Admin Dose 1 TAB; Start 02/20/19 at 14:00 Ceftazidime 50 ml @ 100 mls/hr Q12 IVPB ; Start 02/21/19 at 21:00 AMANDA GUADARRAMA M.D. Feb 21, 2019 17:00
[2019-02-21] MEDS: CEFTAZIDIME 1GM/50 ML (PMX) 50 ML IVPB SCH (20:17)
[2019-02-21] MEDS: INSULIN GLARGINE [LANTus] (100 UNITS/ML) SYG SC SCH (20:25)
[2019-02-21 21:14] VITALS: BP 98/63; PULSE 84; RESP 16
[2019-02-21] MEDS: AL HYDROX/MG HYDROX/SIMETH 30 ML CUP PO PRN (22:47)
[2019-02-22] MEDS: HYDROmorphONE 2 MG/ML SYG IV PRN ×6 (00:33→23:21)
[2019-02-22] MEDS: HYDROCODONE/APAP (5/325) TAB PO PRN ×3 (00:58→16:41)
[2019-02-22] MEDS ORDERED: HYDROmorphONE 2 MG/ML SYG IV ONE (01:45)
[2019-02-22 02:47] VITALS: BP 102/66; PULSE 86; RESP 18
[2019-02-22] MEDS: VANCOMYCIN HCL 1.5 GM in SOD CHLORIDE 0.9% 250 ML IVPB SCH ×2 (04:36→16:42)
[2019-02-22] MEDS: AL HYDROX/MG HYDROX/SIMETH 30 ML CUP PO PRN ×2 (04:37→15:37)
[2019-02-22] MEDS: metroNIDAZOLE 500 MG/NS (PMX) 100 ML IVPB SCH ×3 (05:34→22:34)
[2019-02-22] MEDS: [UNRECOGNIZED DRUG - OTHER] XX SCH ×2 (05:41→14:30)
[2019-02-22 08:00] VITALS: BP 114/71; PULSE 82; RESP 18
[2019-02-22] MEDS: INSULIN ASPART [NOVOLOG] 3 ML PEN SC SCH ×4 (08:00→20:31)
[2019-02-22] MEDS: GABAPENTIN 300 MG CAP PO SCH (08:18)
[2019-02-22] MEDS: LINAGLIPTIN 5 MG TABLET PO SCH (08:18)
[2019-02-22] MEDS: DOCUSATE SODIUM 100 MG CAP PO SCH ×2 (08:18→20:30)
[2019-02-22] MEDS: EMPAGLIFLOZIN 10 MG TABLET PO SCH (08:19)
[2019-02-22] MEDS: AMIODARONE 200 MG TAB PO SCH (08:21)
[2019-02-22] MEDS: APIXABAN 5 MG TABLET PO SCH ×2 (08:21→20:31)
[2019-02-22] MEDS: LISINOPRIL 5 MG TAB PO SCH (08:22)
[2019-02-22] MEDS: CYCLOBENZAPRINE 10 MG TAB PO SCH ×2 (08:23→20:30)
[2019-02-22] MEDS: FUROSEMIDE 20 MG TAB PO SCH (08:23)
[2019-02-22] MEDS: CYANOCOBALAMIN 1000 MCG INJ IM SCH (08:24)
[2019-02-22] MEDS: CEFTAZIDIME 1GM/50 ML (PMX) 50 ML IVPB SCH ×2 (08:24→20:26)
[2019-02-22] MEDS: NEOMYC/POLYMYX/BACIT 30 GM OINT TOP SCH (08:25)
[2019-02-22] MEDS: DAKINS 0.0125%(1/40) 473 ML SOLUTION TP SCH (08:25)
--- NOTE | 2019-02-22 09:46 | CONS ---
[facility] Name: Humble Zayas Unit Number: [id number] Date of : 1955 Patient Status: Admitted Inpatient Attending Doctor: Kristin Pryor MD Edit: CARMITA GARCIA M.D. 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 CT on 01/10/2019 did not show evidence of OM. ESR 26 on 01/09/2019 and 37 on 01/12/2019; superficial wound culture grew pseudomonas, E. Coli, enterococcus (isolated from broth only), scant proteus, and scant CoNS. ESR 23 and repeat culture on 02/06/2019 grew pseudomonas - s/p Debridement of the right calcaneal ulceration 01/13/2019; intraop culture grew E. Coli, Proteus, and Enterococcus - chronic wound of R heel, in the past the wound culture grew E. coli. repeat culture on 02/06/2019 grew pseudomonas - S/p debridement of R calcaneal ulceration with allograft placement 02/18/19, intraop culture grew Pseudomonas and enterococcus species - h/o OM of R foot, h/o 6 weeks of IV vancomycin and ceftriaxone in 2018. 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 Recommend an additional 4-6 weeks to try and salvage his foot. Trending of ESR and procalc in weeks to come along with potential further imaging will help to further delineate abx duration. - Recommend: very close outpatient f/u with ID - continue local wound care - please check weekly CBC BMP and ESR while Pt's on IV antibiotics Plan was d/w patient and with Dr. Garcia. Consultation Date/Type/Reason Admit Date/Time January 09, 2019 at 18:17 Initial Consult Date 01/10/19 Type of Consult ID Requesting Provider: KRISTIN PRYOR MD Date/Time of Note DATE: 02/22/19 TIME: 09:44 24 HR Interval Summary Free Text/Dictation The patient tells me that overnight he felt heart burn and rec'd maalox twice, also experienced nausea after dilaudid and took anti nausea medication. He states he feels much better today. He told me that he stood up and walked to the bathroom this am to shave and wash his face, and that since then his foot has been hurting more. he told me he was advised by surgeon to use w/c for 2 weeks. I re-iterated to patient that with wound vac in place and with the wound he should follow the surgeon's instructions to avoid complications. Patient denies fevers, chills, night sweats, sob, cp, current n/v/d, pruritis, or rash. Exam/Review of Systems Exam Vitals Vital Signs Date Temp Pulse Resp B/P (MAP) Pulse Ox O2 O2 Flow FiO2 Time Delivery Rate 02/22/19 98.4 82 18 114/71 96 Room Air 08:00 (85) Allergies Coded Allergies No Known Allergy (Unverified01/09/19) Intake and Output 02/21/19 02/21/19 02/22/19 1515:00 23:00 07:00 IntakeIntake Total 1360 ml 860 ml 100 ml OutputOutput Total 800 ml 800 ml BalanceBalance 560 ml 60 ml 100 ml Exam Constitutional: alert, oriented, well developed, other (laying comfortably in bed - sleeping, easily awakened via verbal stimuli) Psych: no complaints, nl mood/affect Head: normocephalic, atraumatic Eyes: nl conjunctiva, nl lids, nl sclera ENMT: nl external ears & nose, nl nasal mucosa & septum, mucosa pink and moist (no thrush) Neck: supple, non-tender Respiratory: clear to auscultation, normal air movement; No labored breathing, No wheezing Cardiovascular: regular rate and rhythm, nl pulses Gastrointestinal: soft, non-tender, bowel sounds (normoactive); No tender Genitourinary - Male: other (urinal at bedside containing yellow urine) Musculoskeletal: nl extremities to inspection Extremities: normal pulses, edema (right foot), other (RUE PICC site is c/d/i) 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 Strong palpable pulse at marked area on anterior leg above the dressing. C/d/i RLE fritz dressing. R foot swelling) Results Result Diagram: 02/20/192 02/20/19 0442 Results 24hrs Laboratory Tests Test 02/21/19 12:33 02/21/19 17:17 02/21/19 20:17 02/22/19 07:58 Bedside Glucose 148 124 159 109 Medications Medication Current Medications Amiodarone HCl (Cordarone) 200 mg DAILY PO Last administered on 02/22/19at 08:21; Admin Dose 200 MG; Start 01/10/19 at 09:00 Digoxin (Digoxin) 0.125 mg DAILY@1300 PO Last administered on 02/21/19at 12:35; Admin Dose 0.125 MG; Start 01/10/19 at 13:00 Gabapentin (Neurontin) 600 mg DAILY PO Last administered on 02/22/19at 08:18; Admin Dose 600 MG; Start 01/10/19 at 09:00 Empaglifozin (Jardiance) 25 mg DAILY PO Last administered on 02/22/19at 08:19; Admin Dose 25 MG; Start 01/10/19 at 09:00 Linagliptin (Tradjenta) 5 mg DAILY PO Last administered on 02/22/19 08:18; Admin Dose 5 MG; Start 01/10/19 at 09:00 Diagnostic Test (Pha) (Accu-Chek) 1 ea 02 XX Last administered on 02/17/19at 02:35; Admin Dose 1 EA; Start 01/10/19 at 02:00 Miscellaneous Information 1 ea NOTE XX ; Start 01/09/19 at 21:30 Glucose (Glutose) 15 gm Q15M PRN PO DECREASED GLUCOSE; Start 01/09/19 at 21:30 Glucose (Glutose) 22.5 gm Q15M PRN PO DECREASED GLUCOSE; Start 01/09/19 at 21:30 Dextrose (D50w Syringe) 50 ml Q15M PRN IV DECREASED GLUCOSE; Start 01/09/19 at 21:30 Glucagon (Glucagen) 1 mg Q15M PRN IM DECREASED GLUCOSE; Start 01/09/19 at 21:30 Glucose (Glutose) 15 gm Q15M PRN BUCCAL DECREASED GLUCOSE; Start 01/09/19 at 21:30 Insulin Glargine (Lantus) 18 units QHS SC Last administered on 02/21/19 20:25; Admin Dose 18 UNITS; Start 01/09/19 at 22:30 Carvedilol (Coreg) 3.125 mg BID PO Last administered on 02/20/19 20:21; Admin Dose 3.125 MG; Start 01/10/19 at 21:00 Vancomycin HCl (Vanco Iv Per Pharmacy) VANCOMYCIN PER PHARMACY PER PROTOCOL XX ; Start 01/11/19 at 02:30 Lisinopril (Zestril) 2.5 mg DAILY PO Last administered on 02/22/19 08:22; Admin Dose 2.5 MG; Start 01/13/19 at 09:00 Senna (Senokot) 1 tab DAILY PRN PO CONSTIPATION Last administered on 02/15/19 20:20; Admin Dose 1 TAB; Start 01/12/19 at 18:30 Neomycin/ Polymyxin/ Bacitracin (Neosporin Topical Oint) 1 applic DAILY TOP Last administered on 02/22/19 08:25; Admin Dose 1 APPLIC; Start 01/12/19 at 18:30 Cyanocobalamin (Vitamin B12 Inj) 1,000 mcg DAILY IM Last administered on 02/22/19 08:24; Admin Dose 1,000 MCG; Start 01/16/19 at 09:00 Metronidazole 100 ml @ 100 mls/hr Q8 IVPB Last administered on 02/22/19 05:34; Admin Dose 100 MLS/HR; Start 01/16/19 at 22:00 Insulin Aspart (Novolog Insulin Pen) NOVOLOG *MODERATE* ALGORITHM WITH MEALS BEDTIME SC Last administered on 02/21/19 12:39; Admin Dose 2 UNIT; Start 01/26/19 at 21:00 IV Flush (NS 10 ml) 10 ml PRN PRN IV IV PROTOCOL Last administered on 02/21/19 08:27; Admin Dose 10 ML; Start 01/29/19 at 17:00 Docusate Sodium (Colace) 100 mg BID PO Last administered on 02/22/19 08:18; Admin Dose 100 MG; Start 02/07/19 at 21:00 Magnesium Hydroxide (Milk Of Mag) 30 ml BID PRN PO CONSTIPATION Last administered on 02/20/19 20:20; Admin Dose 30 ML; Start 02/08/19 at 14:00 Sodium Hypochlorite (Dakins Diluted (/40)) 1 applic DAILY TP Last administered on 02/22/19 08:25; Admin Dose 1 APPLIC; Start 02/09/19 at 13:00 Acetaminophen (Tylenol Tab) 650 mg Q4H PRN PO MILD PAIN(1-3)OR ELEVATED TEMP; Start 02/10/19 at 22:00 Ondansetron HCl (Zofran Inj) 4 mg Q6H PRN IV NAUSEA AND/OR VOMITING Last administered on 02/22/19 08:27; Admin Dose 4 MG; Start 02/10/19 at 22:00 Furosemide (Lasix) 20 mg DAILY PO Last administered on 02/22/19 08:23; Admin Dose 20 MG; Start 02/13/19 at 09:00 Cyclobenzaprine HCl (Flexeril) 5 mg BID PO Last administered on 02/22/19 08:23; Admin Dose 5 MG; Start 02/13/19 at 09:00 Hydromorphone HCl (Dilaudid) 2 mg Q3 PRN IV SEVERE PAIN LEVEL 7-10 Last administered on 02/22/19 08:15; Admin Dose 2 MG; Start 02/13/19 at 18:30 Apixaban (Eliquis) 2.5 mg BID PO Last administered on 02/22/19 08:21; Admin Dose 2.5 MG; Start 02/14/19 at 12:00 Miscellaneous Information (Pending Santyl Order For Wound Care) This patient metz... PRN PRN XX WOUND CARE; Start 02/15/19 at 04:30 Alteplase, Recombinant (Cathflo (Activase)) 2 mg MAY REPEAT X1 PRN CATHETER IF CATHETER REMAINS OCCULUDED; Start 02/15/19 at 21:00 Alteplase, Recombinant (Cathflo (Activase)) 2 mg MAY REPEAT X1 PRN CATHETER IF CATHETER REMAINS OCCULUDED; Start 02/16/19 at 04:00 Miscellaneous Information (*Order Clarification Bulletin) MEDICATION REQUIRES CLARIFICATI... Q8H XX ; Start 02/16/19 at 06:30 Vancomycin HCl 1.5 gm/Sodium Chloride 250 ml @ 83.333 mls/ hr Q12H IVPB Last administered on 02/22/19 04:36; Admin Dose 83.333 MLS/HR; Start 02/19/19 at 05:00 Acetaminophen/ Hydrocodone Bitart ([place] (5/325)) 1 tab Q4H PRN PO MODERATE PAIN LEVEL 4-6 Last administered on 02/22/19at 06:58; Admin Dose 1 TAB; Start 02/20/19 at 14:00 Ceftazidime 50 ml @ 100 mls/hr Q12 IVPB Last administered on 02/22/19at 08:24; Admin Dose 100 MLS/HR; Start 02/21/19 at 21:00 Al Hydrox/Mg Hydrox/Simethicone (Mag-Al Plus) 30 ml Q6H PRN PO GASTROINTESTINAL UPSET Last administered on 02/22/19 04:37; Admin Dose 30 ML; Start 02/21/19 at 23:00 FELICITY SORTO NP Feb 22, 2019 09:46
--- NOTE | 2019-02-22 11:41 | PN ---
Date/Time of Note Date/Time of Note DATE: 02/22/19 TIME: 11:41 Assessment/Plan VTE Prophylaxis Risk score (from Ns)>0 risk: 8 SCD applied (from [facility] [place]): No SCD contraindicated: other Pharmacological prophylaxis: LMWH Lines/Catheters IV Catheter Type (from Nrsg): PICC Line Central line still needed: Yes Urinary Cath still in place: No Assessment/Plan Hospital Course -Chronic peripheral vascular disease, history of angioplasty x2. Dr. Sheppard is following in vascular surgery consultation. S/p right pop DP bypass on 02/13/19. -Right heel necrotic wound. Dr. Mata is following in podiatry consultation. Status post debridement and application of allograft on 02/18/2019. Continue antibiotics per ID. Dr. Urbano is following in infection disease consultation. Will require total of 6 weeks of Vancomycin IV, Cefepime IV, and Flagyl IV through 02/22/19. 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 EUS and FNA as an outpatient to confirm GIST tumor diagnosis. Continue PPI. -New onset of anemia and hypotension requiring blood transfusion on 01/15/2019, stool for OB is negative. -Coronary artery disease, status post coronary artery bypass graft. -Cardiomyopathy with ejection fraction of 25%. Continue Coreg. Dr. Foster is following in cardiology consultation. -Status post AICD. -Hx of Hypertension. -Diabetes hemoglobin A1c 7.6. Continue Lantus and NovoLog. -Right knee contusion and abrasion status post fall. Status post evaluation by Dr. Zelaya and orthopedic surgery. No signs of fracture or dystrophic dislocation. -Chronic low back pain with significant spondylolisthesis grade II at the level of L5 to S1. Status post evaluation and pain management by Dr. Robertson and pain management consultation. Result Diagram: 02/20/19 0442 02/20/19 0442 Results 24hrs Laboratory Tests Test 02/21/19 12:33 02/21/19 17:17 02/21/19 20:17 02/22/19 07:58 Bedside Glucose 148 124 159 109 Subjective 24 Hr Interval Summary Free Text/Dictation Patient thinks cellulitis is improving Exam/Review of Systems Exam Vitals Vital Signs Date Temp Pulse Resp B/P (MAP) Pulse Ox O2 O2 Flow FiO2 Time Delivery Rate 02/22/19 98.4 82 18 114/71 96 Room Air 08:00 (85) Intake and Output 02/21/19 02/21/19 02/22/19 1515:00 23:00 07:00 IntakeIntake Total 1360 ml 860 ml 100 ml OutputOutput Total 800 ml 800 ml BalanceBalance 560 ml 60 ml 100 ml Constitutional: well developed Head: normocephalic, atraumatic Neck: supple Respiratory: clear to auscultation Cardiovascular: regular rate and rhythm Gastrointestinal: soft, non-tender Extremities: normal pulses Results Results 24hrs Laboratory Tests Test 02/21/19 12:33 02/21/19 17:17 02/21/19 20:17 02/22/19 07:58 Bedside Glucose 148 124 159 109 Medications Medication Current Medications Amiodarone HCl (Cordarone) 200 mg DAILY PO Last administered on 02/22/19at 08:21; Admin Dose 200 MG; Start 01/10/19 at 09:00 Digoxin (Digoxin) 0.125 mg DAILY@1300 PO Last administered on 02/21/19at 12:35; Admin Dose 0.125 MG; Start 01/10/19 at 13:00 Gabapentin (Neurontin) 600 mg DAILY PO Last administered on 02/22/19 08:18; Admin Dose 600 MG; Start 01/10/19 at 09:00 Empaglifozin (Jardiance) 25 mg DAILY PO Last administered on 02/22/19 08:19; Admin Dose 25 MG; Start 01/10/19 at 09:00 Linagliptin (Tradjenta) 5 mg DAILY PO Last administered on 02/22/19 08:18; Admin Dose 5 MG; Start 01/10/19 at 09:00 Diagnostic Test (Pha) (Accu-Chek) 1 ea 02 XX Last administered on 02/17/19at 02:35; Admin Dose 1 EA; Start 01/10/19 at 02:00 Miscellaneous Information 1 ea NOTE XX ; Start 01/09/19 at 21:30 Glucose (Glutose) 15 gm Q15M PRN PO DECREASED GLUCOSE; Start 01/09/19 at 21:30 Glucose (Glutose) 22.5 gm Q15M PRN PO DECREASED GLUCOSE; Start 01/09/19 at 21:30 Dextrose (D50w Syringe) 50 ml Q15M PRN IV DECREASED GLUCOSE; Start 01/09/19 at 21:30 Glucagon (Glucagen) 1 mg Q15M PRN IM DECREASED GLUCOSE; Start 01/09/19 at 21:30 Glucose (Glutose) 15 gm Q15M PRN BUCCAL DECREASED GLUCOSE; Start 01/09/19 at 21:30 Insulin Glargine (Lantus) 18 units QHS SC Last administered on 02/21/19 20:25; Admin Dose 18 UNITS; Start 01/09/19 at 22:30 Carvedilol (Coreg) 3.125 mg BID PO Last administered on 02/20/19 20:21; Admin Dose 3.125 MG; Start 01/10/19 at 21:00 Vancomycin HCl (Vanco Iv Per Pharmacy) VANCOMYCIN PER PHARMACY PER PROTOCOL XX ; Start 01/11/19 at 02:30 Lisinopril (Zestril) 2.5 mg DAILY PO Last administered on 02/22/19 08:22; Admin Dose 2.5 MG; Start 01/13/19 at 09:00 Senna (Senokot) 1 tab DAILY PRN PO CONSTIPATION Last administered on 02/15/19 20:20; Admin Dose 1 TAB; Start 01/12/19 at 18:30 Neomycin/ Polymyxin/ Bacitracin (Neosporin Topical Oint) 1 applic DAILY TOP Last administered on 02/22/19 08:25; Admin Dose 1 APPLIC; Start 01/12/19 at 18:30 Cyanocobalamin (Vitamin B12 Inj) 1,000 mcg DAILY IM Last administered on 02/22/19 08:24; Admin Dose 1,000 MCG; Start 01/16/19 at 09:00 Metronidazole 100 ml @ 100 mls/hr Q8 IVPB Last administered on 02/22/19 05:34; Admin Dose 100 MLS/HR; Start 01/16/19 at 22:00 Insulin Aspart (Novolog Insulin Pen) NOVOLOG *MODERATE* ALGORITHM WITH MEALS BEDTIME SC Last administered on 02/21/19 12:39; Admin Dose 2 UNIT; Start 01/26/19 at 21:00 IV Flush (NS 10 ml) 10 ml PRN PRN IV IV PROTOCOL Last administered on 02/21/19 08:27; Admin Dose 10 ML; Start 01/29/19 at 17:00 Docusate Sodium (Colace) 100 mg BID PO Last administered on 02/22/19 08:18; Admin Dose 100 MG; Start 02/07/19 at 21:00 Magnesium Hydroxide (Milk Of Mag) 30 ml BID PRN PO CONSTIPATION Last administered on 02/20/19 20:20; Admin Dose 30 ML; Start 02/08/19 at 14:00 Sodium Hypochlorite (Dakins Diluted ()) 1 applic DAILY TP Last administered on 02/22/19 08:25; Admin Dose 1 APPLIC; Start 02/09/19 at 13:00 Acetaminophen (Tylenol Tab) 650 mg Q4H PRN PO MILD PAIN(1-3)OR ELEVATED TEMP; Start 02/10/19 at 22:00 Ondansetron HCl (Zofran Inj) 4 mg Q6H PRN IV NAUSEA AND/OR VOMITING Last administered on 02/22/19 08:27; Admin Dose 4 MG; Start 02/10/19 at 22:00 Furosemide (Lasix) 20 mg DAILY PO Last administered on 02/22/19 08:23; Admin Dose 20 MG; Start 02/13/19 at 09:00 Cyclobenzaprine HCl (Flexeril) 5 mg BID PO Last administered on 02/22/19 08:23; Admin Dose 5 MG; Start 02/13/19 at 09:00 Hydromorphone HCl (Dilaudid) 2 mg Q3 PRN IV SEVERE PAIN LEVEL 7-10 Last administered on 02/22/19 11:21; Admin Dose 2 MG; Start 02/13/19 at 18:30 Apixaban (Eliquis) 2.5 mg BID PO Last administered on 02/22/19 08:21; Admin Dose 2.5 MG; Start 02/14/19 at 12:00 Miscellaneous Information (Pending Santyl Order For Wound Care) This patient metz... PRN PRN XX WOUND CARE; Start 02/15/19 at 04:30 Alteplase, Recombinant (Cathflo (Activase)) 2 mg MAY REPEAT X1 PRN CATHETER IF CATHETER REMAINS OCCULUDED; Start 02/15/19 at 21:00 Alteplase, Recombinant (Cathflo (Activase)) 2 mg MAY REPEAT X1 PRN CATHETER IF CATHETER REMAINS OCCULUDED; Start 02/16/19 at 04:00 Miscellaneous Information (*Order Clarification Bulletin) MEDICATION REQUIRES CLARIFICATI... Q8H XX ; Start 02/16/19 at 06:30 Vancomycin HCl 1.5 gm/Sodium Chloride 250 ml @ 83.333 mls/ hr Q12H IVPB Last administered on 02/22/19at 04:36; Admin Dose 83.333 MLS/HR; Start 02/19/19 at 05:00 Acetaminophen/ Hydrocodone Bitart ([place] (5/325)) 1 tab Q4H PRN PO MODERATE PAIN LEVEL 4-6 Last administered on 02/22/19at 06:58; Admin Dose 1 TAB; Start 02/20/19 at 14:00 Ceftazidime 50 ml @ 100 mls/hr Q12 IVPB Last administered on 02/22/19at 08:24; Admin Dose 100 MLS/HR; Start 02/21/19 at 21:00 Al Hydrox/Mg Hydrox/Simethicone (Mag-Al Plus) 30 ml Q6H PRN PO GASTROINTESTINAL UPSET Last administered on 02/22/19at 04:37; Admin Dose 30 ML; Start 02/21/19 at 23:00 PARISA VARGAS Feb 22, 2019 11:41
[2019-02-22] MEDS: DIGOXIN 0.125 MG TAB PO SCH (12:08)
--- NOTE | 2019-02-22 13:57 | CONS ---
Assessment/Plan Assessment/Plan Assessment/Plan (Daily) s/p R POP-DP peripheral bypass and s/p heel debridement CAD s/p Bypass surgery Severe Cardiomyopathy s/p AICD Hyperlipidemia Non-healing LE ulcer s/p debridement Severe PAD s/p prior [employer]. Diabetes Anemia Continue digoxin Continue Coreg Continue Zestril Continue amiodarone Continue Eliquis Continue antibiotics Wound care as scheduled Pain control as scheduled Consultation Date/Type/Reason Admit Date/Time January 09, 2019 at 18:17 Initial Consult Date 01/16/19 Type of Consult Cardiology Requesting Provider: KRISTIN PRYOR MD Date/Time of Note DATE: 02/22/19 TIME: 13:55 Exam/Review of Systems Vital Signs Vitals Vital Signs Date Temp Pulse Resp B/P (MAP) Pulse Ox O2 O2 Flow FiO2 Time Delivery Rate 02/22/19 98.4 82 18 114/71 96 Room Air 08:00 (85) Intake and Output 02/21/19 02/21/19 02/22/19 1515:00 23:00 07:00 IntakeIntake Total 1360 ml 860 ml 100 ml OutputOutput Total 800 ml 800 ml BalanceBalance 560 ml 60 ml 100 ml Exam Exam Head: normocephalic, atraumatic Respiratory: clear to auscultation Cardiovascular: regular rate and rhythm no m/r/g Gastrointestinal: soft, non-tender Extremities: other (s/p debridement RLE in dressing) Labs Result Diagram: 02/20/19 0442 02/20/19 0442 Results 24hrs Laboratory Tests Test 02/21/19 17:17 02/21/19 20:17 02/22/19 07:58 02/22/19 11:52 Bedside Glucose 124 159 109 145 Medications Medications Current Medications Amiodarone HCl (Cordarone) 200 mg DAILY PO Last administered on 02/22/19at 08:21; Admin Dose 200 MG; Start 01/10/19 at 09:00 Digoxin (Digoxin) 0.125 mg DAILY@1300 PO Last administered on 02/22/19at 12:08; Admin Dose 0.125 MG; Start 01/10/19 at 13:00 Gabapentin (Neurontin) 600 mg DAILY PO Last administered on 02/22/19at 08:18; Admin Dose 600 MG; Start 01/10/19 at 09:00 Empaglifozin (Jardiance) 25 mg DAILY PO Last administered on 02/22/19 08:19; Admin Dose 25 MG; Start 01/10/19 at 09:00 Linagliptin (Tradjenta) 5 mg DAILY PO Last administered on 02/22/19 08:18; Admin Dose 5 MG; Start 01/10/19 at 09:00 Diagnostic Test (Pha) (Accu-Chek) 1 ea 02 XX Last administered on 02/17/19 02:35; Admin Dose 1 EA; Start 01/10/19 at 02:00 Miscellaneous Information 1 ea NOTE XX ; Start 01/09/19 at 21:30 Glucose (Glutose) 15 gm Q15M PRN PO DECREASED GLUCOSE; Start 01/09/19 at 21:30 Glucose (Glutose) 22.5 gm Q15M PRN PO DECREASED GLUCOSE; Start 01/09/19 at 21:30 Dextrose (D50w Syringe) 50 ml Q15M PRN IV DECREASED GLUCOSE; Start 01/09/19 at 21:30 Glucagon (Glucagen) 1 mg Q15M PRN IM DECREASED GLUCOSE; Start 01/09/19 at 21:30 Glucose (Glutose) 15 gm Q15M PRN BUCCAL DECREASED GLUCOSE; Start 01/09/19 at 21:30 Insulin Glargine (Lantus) 18 units QHS SC Last administered on 02/21/19 20:25; Admin Dose 18 UNITS; Start 01/09/19 at 22:30 Carvedilol (Coreg) 3.125 mg BID PO Last administered on 02/20/19 20:21; Admin Dose 3.125 MG; Start 01/10/19 at 21:00 Vancomycin HCl (Vanco Iv Per Pharmacy) VANCOMYCIN PER PHARMACY PER PROTOCOL XX ; Start 01/11/19 at 02:30 Lisinopril (Zestril) 2.5 mg DAILY PO Last administered on 02/22/19 08:22; Admin Dose 2.5 MG; Start 01/13/19 at 09:00 Senna (Senokot) 1 tab DAILY PRN PO CONSTIPATION Last administered on 02/15/19 20:20; Admin Dose 1 TAB; Start 01/12/19 at 18:30 Neomycin/ Polymyxin/ Bacitracin (Neosporin Topical Oint) 1 applic DAILY TOP Last administered on 02/22/19 08:25; Admin Dose 1 APPLIC; Start 01/12/19 at 18:30 Cyanocobalamin (Vitamin B12 Inj) 1,000 mcg DAILY IM Last administered on 02/22/19 08:24; Admin Dose 1,000 MCG; Start 01/16/19 at 09:00 Metronidazole 100 ml @ 100 mls/hr Q8 IVPB Last administered on 02/22/19 13:07 ; Admin Dose 100 MLS/HR; Start 01/16/19 at 22:00 Insulin Aspart (Novolog Insulin Pen) NOVOLOG *MODERATE* ALGORITHM WITH MEALS BEDTIME SC Last administered on 02/22/19 12:10; Admin Dose 2 UNIT; Start 01/26/19 at 21:00 IV Flush (NS 10 ml) 10 ml PRN PRN IV IV PROTOCOL Last administered on 02/21/19 08:27; Admin Dose 10 ML; Start 01/29/19 at 17:00 Docusate Sodium (Colace) 100 mg BID PO Last administered on 02/22/19 08:18; Admin Dose 100 MG; Start 02/07/19 at 21:00 Magnesium Hydroxide (Milk Of Mag) 30 ml BID PRN PO CONSTIPATION Last administered on 02/20/19 20:20; Admin Dose 30 ML; Start 02/08/19 at 14:00 Sodium Hypochlorite (Dakins Diluted (/40)) 1 applic DAILY TP Last administered on 02/22/19 08:25; Admin Dose 1 APPLIC; Start 02/09/19 at 13:00 Acetaminophen (Tylenol Tab) 650 mg Q4H PRN PO MILD PAIN(1-3)OR ELEVATED TEMP; Start 02/10/19 at 22:00 Ondansetron HCl (Zofran Inj) 4 mg Q6H PRN IV NAUSEA AND/OR VOMITING Last administered on 02/22/19 08:27; Admin Dose 4 MG; Start 02/10/19 at 22:00 Furosemide (Lasix) 20 mg DAILY PO Last administered on 02/22/19 08:23; Admin Dose 20 MG; Start 02/13/19 at 09:00 Cyclobenzaprine HCl (Flexeril) 5 mg BID PO Last administered on 02/22/19 08: 23; Admin Dose 5 MG; Start 02/13/19 at 09:00 Hydromorphone HCl (Dilaudid) 2 mg Q3 PRN IV SEVERE PAIN LEVEL 7-10 Last administered on 02/22/19 11:21; Admin Dose 2 MG; Start 02/13/19 at 18:30 Apixaban (Eliquis) 2.5 mg BID PO Last administered on 02/22/19 08:21; Admin Dose 2.5 MG; Start 02/14/19 at 12:00 [facility]isc[facility] This patient metz... PRN PRN XX WOUND CARE; Start 02/15/19 at 04:30 Alteplase, Recombinant (Cathflo (Activase)) 2 mg MAY REPEAT X1 PRN CATHETER IF CATHETER REMAINS OCCULUDED; Start 02/15/19 at 21:00 Alteplase, Recombinant (Cathflo (Activase)) 2 mg MAY REPEAT X1 PRN CATHETER IF CATHETER REMAINS OCCULUDED; Start 02/16/19 at 04:00 Miscellaneous Information (*Order Clarification Bulletin) MEDICATION REQUIRES CLARIFICATI... Q8H XX ; Start 02/16/19 at 06:30 Vancomycin HCl 1.5 gm/Sodium Chloride 250 ml @ 83.333 mls/ hr Q12H IVPB Last administered on 02/22/19at 04:36; Admin Dose 83.333 MLS/HR; Start 02/19/19 at 05:00 Acetaminophen/ Hydrocodone Bitart ([place] (5/325)) 1 tab Q4H PRN PO MODERATE PAIN LEVEL 4-6 Last administered on 02/22/19at 06:58; Admin Dose 1 TAB; Start 02/20/19 at 14:00 Ceftazidime 50 ml @ 100 mls/hr Q12 IVPB Last administered on 02/22/19at 08:24; Admin Dose 100 MLS/HR; Start 02/21/19 at 21:00 Al Hydrox/Mg Hydrox/Simethicone (Mag-Al Plus) 30 ml Q6H PRN PO GASTROINTESTINAL UPSET Last administered on 02/22/19at 04:37; Admin Dose 30 ML; Start 02/21/19 at 23:00 AMANDA GUADARRAMA M.D. Feb 22, 2019 13:57
[2019-02-22 14:00] VITALS: BP 107/63; PULSE 82; RESP 18
--- NOTE | 2019-02-22 14:16 | CONS ---
Assessment/Plan Assessment/Plan Assessment/Plan (Daily) #Gastric mass -pt to have EUS and FNA ans an out patient. 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 Coli, Proteus, and Enterococcus -continue IV abx per ID - SP right pop bypass # Anemia-normocytic- Hgb 11.0 -Hg currently stable > 9 -likely 2/2 GI bleed -continue to hold all blood thinners -CT A/P does not reveal evidence of bleed -f/u endoscopy. pt was found with a T3.5 cm mass/filling defect arising along the lesser curvature of the stomach - consistent with GIST tumor Patient seen in collaboration with Dr Hancock/ [facility] staff Consultation Date/Type/Reason Admit Date/Time January 09, 2019 at 18:17 Initial Consult Date 01/16/19 Type of Consult ONCOLOGY/HEMATOLOGY Reason for Consultation Anemia Gastric mass Requesting Provider: KRISTIN PRYOR MD Date/Time of Note DATE: 02/22/19 TIME: 14:15 24 HR Interval Summary Free Text/Dictation - patient fees better - No GI bleeding reported - Hgb 11.0 no events reported overnight Detailed Summary Eyes: no complaints ENT: no complaints Respiratory: no complaints Cardiovascular: no complaints Gastrointestinal: no complaints Genitourinary: no complaints Musculoskeletal: bone/joint pain, restricted range of motion Skin: other Neurologic: no complaints Endocrine: no complaints Psychological: nl mood/affect Exam/Review of Systems Exam Vitals Vital Signs Date Temp Pulse Resp B/P (MAP) Pulse Ox O2 O2 Flow FiO2 Time Delivery Rate 02/22/19 98.4 82 18 114/71 96 Room Air 08:00 (85) Intake and Output 02/21/19 02/21/19 02/22/19 1515:00 23:00 07:00 IntakeIntake Total 1360 ml 860 ml 100 ml OutputOutput Total 800 ml 800 ml BalanceBalance 560 ml 60 ml 100 ml Constitutional: alert, well developed Psych: nl mood/affect Head: atraumatic Eyes: EOMI, nl lids ENMT: nl external ears & nose Respiratory: clear to auscultation Cardiovascular: nl pulses, other (s1s2) Gastrointestinal: soft, non-tender Extremities: normal pulses 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: nl mental status, nl speech Lymph: nontender Results Result Diagram: 02/20/1944102/20/19441 Results 24hrs Laboratory Tests Test 02/21/19 17:17 02/21/19 20:17 02/22/19 07:58 02/22/19 11:52 Bedside Glucose 124 159 109 145 Medications Medication Current Medications Amiodarone HCl (Cordarone) 200 mg DAILY PO Last administered on 02/22/19at 08:21; Admin Dose 200 MG; Start 01/10/19 at 09:00 Digoxin (Digoxin) 0.125 mg DAILY@1300 PO Last administered on 02/22/19at 12:08; Admin Dose 0.125 MG; Start 01/10/19 at 13:00 Gabapentin (Neurontin) 600 mg DAILY PO Last administered on 02/22/19at 08:18; Admin Dose 600 MG; Start 01/10/19 at 09:00 Empaglifozin (Jardiance) 25 mg DAILY PO Last administered on 02/22/19at 08:19; Admin Dose 25 MG; Start 01/10/19 at 09:00 Linagliptin (Tradjenta) 5 mg DAILY PO Last administered on 02/22/19at 08:18; Admin Dose 5 MG; Start 01/10/19 at 09:00 Diagnostic Test (Pha) (Accu-Chek) 1 ea 02 XX Last administered on 02/17/19at 02:35; Admin Dose 1 EA; Start 01/10/19 at 02:00 Miscellaneous Information 1 ea NOTE XX ; Start 01/09/19 at 21:30 Glucose (Glutose) 15 gm Q15M PRN PO DECREASED GLUCOSE; Start 01/09/19 at 21:30 Glucose (Glutose) 22.5 gm Q15M PRN PO DECREASED GLUCOSE; Start 01/09/19 at 21:30 Dextrose (D50w Syringe) 50 ml Q15M PRN IV DECREASED GLUCOSE; Start 01/09/19 at 21:30 Glucagon (Glucagen) 1 mg Q15M PRN IM DECREASED GLUCOSE; Start 01/09/19 at 21:30 Glucose (Glutose) 15 gm Q15M PRN BUCCAL DECREASED GLUCOSE; Start 01/09/19 at 21:30 Insulin Glargine (Lantus) 18 units QHS SC Last administered on 02/21/19 20:25; Admin Dose 18 UNITS; Start 01/09/19 at 22:30 Carvedilol (Coreg) 3.125 mg BID PO Last administered on 02/20/19 20:21; Admin Dose 3.125 MG; Start 01/10/19 at 21:00 Vancomycin HCl (Vanco Iv Per Pharmacy) VANCOMYCIN PER PHARMACY PER PROTOCOL XX ; Start 01/11/19 at 02:30 Lisinopril (Zestril) 2.5 mg DAILY PO Last administered on 02/22/19 08:22; Admin Dose 2.5 MG; Start 01/13/19 at 09:00 Senna (Senokot) 1 tab DAILY PRN PO CONSTIPATION Last administered on 02/15/19 20:20; Admin Dose 1 TAB; Start 01/12/19 at 18:30 Neomycin/ Polymyxin/ Bacitracin (Neosporin Topical Oint) 1 applic DAILY TOP Last administered on 02/22/19 08:25; Admin Dose 1 APPLIC; Start 01/12/19 at 18:30 Cyanocobalamin (Vitamin B12 Inj) 1,000 mcg DAILY IM Last administered on 02/22/19 08:24; Admin Dose 1,000 MCG; Start 01/16/19 at 09:00 Metronidazole 100 ml @ 100 mls/hr Q8 IVPB Last administered on 02/22/19 13:07; Admin Dose 100 MLS/HR; Start 01/16/19 at 22:00 Insulin Aspart (Novolog Insulin Pen) NOVOLOG *MODERATE* ALGORITHM WITH MEALS BEDTIME SC Last administered on 02/22/19 12:10; Admin Dose 2 UNIT; Start 01/26/19 at 21:00 IV Flush (NS 10 ml) 10 ml PRN PRN IV IV PROTOCOL Last administered on 02/21/19 08:27; Admin Dose 10 ML; Start 01/29/19 at 17:00 Docusate Sodium (Colace) 100 mg BID PO Last administered on 02/22/19 08:18; Admin Dose 100 MG; Start 02/07/19 at 21:00 Magnesium Hydroxide (Milk Of Mag) 30 ml BID PRN PO CONSTIPATION Last administered on 02/20/19 20:20; Admin Dose 30 ML; Start 02/08/19 at 14:00 Sodium Hypochlorite (Dakins Diluted ()) 1 applic DAILY TP Last administered on 02/22/19 08:25; Admin Dose 1 APPLIC; Start 02/09/19 at 13:00 Acetaminophen (Tylenol Tab) 650 mg Q4H PRN PO MILD PAIN(1-3)OR ELEVATED TEMP; Start 02/10/19 at 22:00 Ondansetron HCl (Zofran Inj) 4 mg Q6H PRN IV NAUSEA AND/OR VOMITING Last administered on 02/22/19 08:27; Admin Dose 4 MG; Start 02/10/19 at 22:00 Furosemide (Lasix) 20 mg DAILY PO Last administered on 02/22/19 08:23; Admin Dose 20 MG; Start 02/13/19 at 09:00 Cyclobenzaprine HCl (Flexeril) 5 mg BID PO Last administered on 02/22/19 08:23; Admin Dose 5 MG; Start 02/13/19 at 09:00 Hydromorphone HCl (Dilaudid) 2 mg Q3 PRN IV SEVERE PAIN LEVEL 7-10 Last adm inistered on 02/22/19 11:21; Admin Dose 2 MG; Start 02/13/19 at 18:30 Apixaban (Eliquis) 2.5 mg BID PO Last administered on 02/22/19 08:21; Admin Dose 2.5 MG; Start 02/14/19 at 12:00 Miscellaneous Information (Pending [facility] Order For Wound Care) This patient metz... PRN PRN XX WOUND CARE; Start 02/15/19 at 04:30 Alteplase, Recombinant (Cathflo (Activase)) 2 mg MAY REPEAT X1 PRN CATHETER IF CATHETER REMAINS OCCULUDED; Start 02/15/19 at 21:00 Alteplase, Recombinant (Cathflo (Activase)) 2 mg MAY REPEAT X1 PRN CATHETER IF CATHETER REMAINS OCCULUDED; Start 02/16/19 at 04:00 Miscellaneous Information (*Order Clarification Bulletin) MEDICATION REQUIRES CLARIFICATI... Q8H XX ; Start 02/16/19 at 06:30 Vancomycin HCl 1.5 gm/Sodium Chloride 250 ml @ 83.333 mls/ hr Q12H IVPB Last administered on 02/22/19at 04:36; Admin Dose 83.333 MLS/HR; Start 02/19/19 at 05:00 Acetaminophen/ Hydrocodone Bitart ([place] (5/325)) 1 tab Q4H PRN PO MODERATE PAIN LEVEL 4-6 Last administered on 02/22/19at 06:58; Admin Dose 1 TAB; Start 02/20/19 at 14:00 Ceftazidime 50 ml @ 100 mls/hr Q12 IVPB Last administered on 02/22/19at 08:24; Admin Dose 100 MLS/HR; Start 02/21/19 at 21:00 Al Hydrox/Mg Hydrox/Simethicone (Mag-Al Plus) 30 ml Q6H PRN PO GASTROINTESTINAL UPSET Last administered on 02/22/19at 04:37; Admin Dose 30 ML; Start 02/21/19 at 23:00 MARTINE PUENTES Feb 22, 2019 14:16
[2019-02-22] MEDS: PANTOPRAZOLE (EC) 40 MG TAB PO SCH (15:39)
[2019-02-22 20:21] VITALS: BP 114/71; PULSE 91; RESP 20
[2019-02-22] MEDS: MAGNESIUM HYDROXIDE 30ML CUP PO PRN (20:29)
[2019-02-22] MEDS: INSULIN GLARGINE [LANTus] (100 UNITS/ML) SYG SC SCH (20:34)
[2019-02-23] MEDS: ACCU-CHEK XX SCH (02:00)
[2019-02-23 02:36] VITALS: BP 105/65; PULSE 79; RESP 18
[2019-02-23] MEDS: HYDROmorphONE 2 MG/ML SYG IV PRN ×7 (02:40→22:25)
[2019-02-23] MEDS: VANCOMYCIN HCL 1.5 GM in SOD CHLORIDE 0.9% 250 ML IVPB SCH ×2 (04:44→17:28)
[2019-02-23] MEDS: PANTOPRAZOLE (EC) 40 MG TAB PO SCH (05:49)
[2019-02-23] MEDS ORDERED: PANTOPRAZOLE (EC) 40 MG TAB PO SCH ×2 (06:00)
[2019-02-23] MEDS: INSULIN ASPART [NOVOLOG] 3 ML PEN SC SCH ×4 (08:00→21:00)
[2019-02-23] MEDS: APIXABAN 5 MG TABLET PO SCH ×2 (08:20→21:01)
[2019-02-23] MEDS: DOCUSATE SODIUM 100 MG CAP PO SCH ×2 (08:20→21:00)
[2019-02-23] MEDS: FUROSEMIDE 20 MG TAB PO SCH (08:20)
[2019-02-23] MEDS: EMPAGLIFLOZIN 10 MG TABLET PO SCH (08:21)
[2019-02-23] MEDS: LISINOPRIL 5 MG TAB PO SCH (08:21)
[2019-02-23] MEDS: LINAGLIPTIN 5 MG TABLET PO SCH (08:22)
[2019-02-23] MEDS: GABAPENTIN 300 MG CAP PO SCH (08:22)
[2019-02-23] MEDS: CYCLOBENZAPRINE 10 MG TAB PO SCH ×2 (08:23→21:01)
[2019-02-23] MEDS: AMIODARONE 200 MG TAB PO SCH (08:23)
[2019-02-23] MEDS: CYANOCOBALAMIN 1000 MCG INJ IM SCH (08:23)
[2019-02-23] MEDS: metroNIDAZOLE 500 MG/NS (PMX) 100 ML IVPB SCH ×2 (08:26→14:13)
[2019-02-23 08:27] VITALS: BP 117/58; PULSE 65; RESP 18
[2019-02-23] MEDS: NEOMYC/POLYMYX/BACIT 30 GM OINT TOP SCH (08:27)
[2019-02-23] MEDS: DAKINS 0.0125%(1/40) 473 ML SOLUTION TP SCH (08:27)
--- NOTE | 2019-02-23 11:08 | CONS ---
Assessment/Plan Assessment/Plan Hospital Course (Demo Recall) #Gastric mass -pt to have EUS and FNA ans an out patient. 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 pt was found with a T3.5 cm mass/filling defect arising along the lesser curvature of the stomach - consistent with GIST tumor #Cardiomyopathy with AICD -continue Eliquis Consultation Date/Type/Reason Admit Date/Time January 09, 2019 at 18:17 Initial Consult Date 01/16/19 Type of Consult oncology Reason for Consultation anemia Requesting Provider: KRISTIN PRYOR MD Date/Time of Note DATE: 02/23/19 TIME: 11:02 24 HR Interval Summary Free Text/Dictation pt healing well fro this surgery. pt has wound vac in place. continues on broad spectrum antibiotics Exam/Review of Systems Exam Vitals Vital Signs Date Temp Pulse Resp B/P (MAP) Pulse Ox O2 O2 Flow FiO2 Time Delivery Rate 02/23/19 98.6 65 18 117/58 98 08:27 (77) 02/22/19 Room Air 14:00 Intake and Output 02/22/19 02/22/19 02/23/19 1515:00 23:00 07:00 IntakeIntake Total 1220 ml 1100.00 ml 263.3 ml OutputOutput Total 3000 ml 500 ml 2500 ml BalanceBalance -1780 ml 600.00 ml -2236.7 ml Constitutional: alert, oriented Psych: no complaints Head: normocephalic Eyes: nl conjunctiva ENMT: nl external ears & nose Neck: supple Respiratory: clear to auscultation Cardiovascular: regular rate and rhythm Gastrointestinal: soft Musculoskeletal: nl extremities to inspection, other (wound vac in place on R heel) Extremities: normal pulses Results Result Diagram: 02/20/19 0442 02/23/19 0511 Results 24hrs Laboratory Tests Test 02/22/19 11:52 02/22/19 16:45 02/22/19 20:24 02/23/19 05:11 Bedside Glucose 145 139 139 Blood Urea Nitrogen 15 Creatinine 0.64 Test 02/23/19 07:52 Bedside Glucose 109 Medications Medication Current Medications Amiodarone HCl (Cordarone) 200 mg DAILY PO Last administered on 02/23/19at 08:23; Admin Dose 200 MG; Start 01/10/19 at 09:00 Digoxin (Digoxin) 0.125 mg DAILY@1300 PO Last administered on 02/22/19at 12:08; Admin Dose 0.125 MG; Start 01/10/19 at 13:00 Gabapentin (Neurontin) 600 mg DAILY PO Last administered on 02/23/19at 08:22; Admin Dose 600 MG; Start 01/10/19 at 09:00 Empaglifozin (Jardiance) 25 mg DAILY PO Last administered on 02/23/19at 08:21; Admin Dose 25 MG; Start 01/10/19 at 09:00 Linagliptin (Tradjenta) 5 mg DAILY PO Last administered on 02/23/19at 08:22; Admin Dose 5 MG; Start 01/10/19 at 09:00 Diagnostic Test (Pha) (Accu-Chek) 1 ea 02 XX Last administered on 02/17/19at 02:35; Admin Dose 1 EA; Start 01/10/19 at 02:00 Miscellaneous Information 1 ea NOTE XX ; Start 01/09/19 at 21:30 Glucose (Glutose) 15 gm Q15M PRN PO DECREASED GLUCOSE; Start 01/09/19 at 21:30 Glucose (Glutose) 22.5 gm Q15M PRN PO DECREASED GLUCOSE; Start 01/09/19 at 21:30 Dextrose (D50w Syringe) 50 ml Q15M PRN IV DECREASED GLUCOSE; Start 01/09/19 at 21:30 Glucagon (Glucagen) 1 mg Q15M PRN IM DECREASED GLUCOSE; Start 01/09/19 at 21:30 Glucose (Glutose) 15 gm Q15M PRN BUCCAL DECREASED GLUCOSE; Start 01/09/19 at 21:30 Insulin Glargine (Lantus) 18 units QHS SC Last administered on 02/22/19at 20:34; Admin Dose 18 UNITS; Start 01/09/19 at 22:30 Carvedilol (Coreg) 3.125 mg BID PO Last administered on 02/23/19 08:19; Admin Dose 3.125 MG; Start 01/10/19 at 21:00 Vancomycin HCl (Vanco Iv Per Pharmacy) VANCOMYCIN PER PHARMACY PER PROTOCOL XX ; Start 01/11/19 at 02:30 Lisinopril (Zestril) 2.5 mg DAILY PO Last administered on 02/23/19 08:21; Admin Dose 2.5 MG; Start 01/13/19 at 09:00 Senna (Senokot) 1 tab DAILY PRN PO CONSTIPATION Last administered on 02/15/19 20:20; Admin Dose 1 TAB; Start 01/12/19 at 18:30 Neomycin/ Polymyxin/ Bacitracin (Neosporin Topical Oint) 1 applic DAILY TOP Last administered on 02/23/19 08:27; Admin Dose 1 APPLIC; Start 01/12/19 at 18:30 Cyanocobalamin (Vitamin B12 Inj) 1,000 mcg DAILY IM Last administered on 02/23/19 08:23; Admin Dose 1,000 MCG; Start 01/16/19 at 09:00 Metronidazole 100 ml @ 100 mls/hr Q8 IVPB Last administered on 02/23/19 08:26; Admin Dose 100 MLS/HR; Start 01/16/19 at 22:00 Insulin Aspart (Novolog Insulin Pen) NOVOLOG *MODERATE* ALGORITHM WITH MEALS BEDTIME SC Last administered on 02/22/19 12:10; Admin Dose 2 UNIT; Start 01/26/19 at 21:00 IV Flush (NS 10 ml) 10 ml PRN PRN IV IV PROTOCOL Last administered on 02/21/19 08:27; Admin Dose 10 ML; Start 01/29/19 at 17:00 Docusate Sodium (Colace) 100 mg BID PO Last administered on 02/23/19 08:20; Admin Dose 100 MG; Start 02/07/19 at 21:00 Magnesium Hydroxide (Milk Of Mag) 30 ml BID PRN PO CONSTIPATION Last administered on 02/22/19 20:29; Admin Dose 30 ML; Start 02/08/19 at 14:00 Sodium Hypochlorite (Dakins Diluted (40)) 1 applic DAILY TP Last administered on 02/22/19 08:25; Admin Dose 1 APPLIC; Start 02/09/19 at 13:00 Acetaminophen (Tylenol Tab) 650 mg Q4H PRN PO MILD PAIN(1-3)OR ELEVATED TEMP; Start 02/10/19 at 22:00 Ondansetron HCl (Zofran Inj) 4 mg Q6H PRN IV NAUSEA AND/OR VOMITING Last administered on 02/22/19 08:27; Admin Dose 4 MG; Start 02/10/19 at 22:00 Furosemide (Lasix) 20 mg DAILY PO Last administered on 02/23/19 08:20; Admin Dose 20 MG; Start 02/13/19 at 09:00 Cyclobenzaprine HCl (Flexeril) 5 mg BID PO Last administered on 02/23/19 08:23; Admin Dose 5 MG; Start 02/13/19 at 09:00 Apixaban (Eliquis) 2.5 mg BID PO Last administered on 02/23/19 08:20; Admin D ose 2.5 MG; Start 02/14/19 at 12:00 Miscellaneous Information (Pending [facility] Order For Wound Care) This patient metz... PRN PRN XX WOUND CARE; Start 02/15/19 at 04:30 Alteplase, Recombinant (Cathflo (Activase)) 2 mg MAY REPEAT X1 PRN CATHETER IF CATHETER REMAINS OCCULUDED; Start 02/15/19 at 21:00 Alteplase, Recombinant (Cathflo (Activase)) 2 mg MAY REPEAT X1 PRN CATHETER IF CATHETER REMAINS OCCULUDED; Start 02/16/19 at 04:00 Vancomycin HCl 1.5 gm/Sodium Chloride 250 ml @ 83.333 mls/ hr Q12H IVPB Last administered on 02/23/19at 04:44; Admin Dose 83.333 MLS/HR; Start 02/19/19 at 05:00 Acetaminophen/ Hydrocodone Bitart ([place] (5/325)) 1 tab Q4H PRN PO MODERATE PAIN LEVEL 4-6 Last administered on 02/22/19at 16:41; Admin Dose 1 TAB; Start 02/20/19 at 14:00 Ceftazidime 50 ml @ 100 mls/hr Q12 IVPB Last administered on 02/22/19at 20:26; Admin Dose 100 MLS/HR; Start 02/21/19 at 21:00 Al Hydrox/Mg Hydrox/Simethicone (Mag-Al Plus) 30 ml Q6H PRN PO GASTROINTESTINAL UPSET Last administered on 02/22/19at 15:37; Admin Dose 30 ML; Start 02/21/19 at 23:00 Pantoprazole (Protonix Tab) 40 mg DAILY@06 PO Last administered on 02/23/19at 05:49; Admin Dose 40 MG; Start 02/22/19 at 15:30 Hydromorphone HCl (Dilaudid) 3 mg Q3H PRN IV SEVERE PAIN LEVEL 7-10 Last administered on 02/23/19at 09:00; Admin Dose 3 MG; Start 02/22/19 at 18:00 TJ QUINTERO M.D. Feb 23, 2019 11:08
[2019-02-23] MEDS: CEFTAZIDIME 1GM/50 ML (PMX) 50 ML IVPB SCH (11:29)
[2019-02-23] MEDS: DIGOXIN 0.125 MG TAB PO SCH (12:53)
[2019-02-23 14:39] VITALS: BP 101/67; PULSE 79; RESP 18
--- NOTE | 2019-02-23 15:20 | PN ---
Date/Time of Note Date/Time of Note DATE: 02/23/19 TIME: 15:13 Assessment/Plan VTE Prophylaxis Risk score (from Ns)>0 risk: 8 SCD applied (from Ns): No SCD contraindicated: other Pharmacological prophylaxis: other Lines/Catheters IV Catheter Type (from Nrsg): PICC Line Central line still needed: Yes Urinary Cath still in place: No Assessment/Plan Hospital Course Patient is continued on multiple antibiotics for severe wound infection rec ommendation to continue current regimen for 4 to 6 weeks and wound VAC. Assessment/Plan -Chronic peripheral vascular disease, history of angioplasty x2. Dr. Sheppard is following in vascular surgery consultation. S/p right pop DP bypass on 02/13/19. -Right heel necrotic wound. Dr. Mata is following in podiatry consultation. Status post debridement and application of allograft on 02/18/2019. Continue antibiotics per ID. Dr. Urbano is following in infection disease consultation. 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 EUS and FNA as an outpatient to confirm GIST tumor diagnosis. Continue PPI. -New onset of anemia and hypotension requiring blood transfusion on 01/15/2019, stool for OB is negative. -Coronary artery disease, status post coronary artery bypass graft. -Cardiomyopathy with ejection fraction of 25%. Continue Coreg. Dr. Foster is following in cardiology consultation. -Status post AICD. -Hx of Hypertension. -Diabetes hemoglobin A1c 7.6. Continue Lantus and NovoLog. -Right knee contusion and abrasion status post fall. Status post evaluation by Dr. Zelaya and orthopedic surgery. No signs of fracture or dystrophic dislocation. -Chronic low back pain with significant spondylolisthesis grade II at the level of L5 to S1. Status post evaluation and pain management by Dr. Robertson and pain management consultation. Further recommendations based on clinical course. Plan of care discussed with Dr. Mann. Result Diagram: 02/20/19 0442 02/23/19 0511 Results 24hrs Laboratory Tests Test 02/22/19 16:45 02/22/19 20:24 02/23/19 05:11 02/23/19 07:52 Bedside Glucose 139 139 109 Blood Urea Nitrogen 15 Creatinine 0.64 Test 02/23/19 12:11 Bedside Glucose 158 Exam/Review of Systems Exam Vitals Vital Signs Date Temp Pulse Resp B/P (MAP) Pulse Ox O2 O2 Flow FiO2 Time Delivery Rate 02/23/19 97.9 79 18 101/67 100 Room Air 14:39 (78) Intake and Output 02/22/19 02/22/19 02/23/19 1515:00 23:00 07:00 IntakeIntake Total 1220 ml 1100.00 ml 263.3 ml OutputOutput Total 3000 ml 500 ml 2500 ml BalanceBalance -1780 ml 600.00 ml -2236.7 ml Exam Constitutional: alert, oriented Respiratory: clear to auscultation Cardiovascular: regular rhythm and rate, AICD Gastrointestinal: soft, non-tender Extremities: normal pulses, other (Right heel wound with wound vac, R leg surgical incision covered with dressing) RUE PICC Results Results 24hrs Laboratory Tests Test 02/22/19 16:45 02/22/19 20:24 02/23/19 05:11 02/23/19 07:52 Bedside Glucose 139 139 109 Blood Urea Nitrogen 15 Creatinine 0.64 Test 02/23/19 12:11 Bedside Glucose 158 Medications Medication Current Medications Amiodarone HCl (Cordarone) 200 mg DAILY PO Last administered on 02/23/19at 08:23; Admin Dose 200 MG; Start 01/10/19 at 09:00 Digoxin (Digoxin) 0.125 mg DAILY@1300 PO Last administered on 02/23/19at 12:53; Admin Dose 0.125 MG; Start 01/10/19 at 13:00 Gabapentin (Neurontin) 600 mg DAILY PO Last administered on 02/23/19at 08:22; Admin Dose 600 MG; Start 01/10/19 at 09:00 Empaglifozin (Jardiance) 25 mg DAILY PO Last administered on 02/23/19at 08:21; Admin Dose 25 MG; Start 01/10/19 at 09:00 Linagliptin (Tradjenta) 5 mg DAILY PO Last administered on 02/23/19at 08:22; Admin Dose 5 MG; Start 01/10/19 at 09:00 Diagnostic Test (Pha) (Accu-Chek) 1 ea 02 XX Last administered on 02/17/19at 02:35; Admin Dose 1 EA; Start 01/10/19 at 02:00 Miscellaneous Information 1 ea NOTE XX ; Start 01/09/19 at 21:30 Glucose (Glutose) 15 gm Q15M PRN PO DECREASED GLUCOSE; Start 01/09/19 at 21:30 Glucose (Glutose) 22.5 gm Q15M PRN PO DECREASED GLUCOSE; Start 01/09/19 at 21:30 Dextrose (D50w Syringe) 50 ml Q15M PRN IV DECREASED GLUCOSE; Start 01/09/19 at 21:30 Glucagon (Glucagen) 1 mg Q15M PRN IM DECREASED GLUCOSE; Start 01/09/19 at 21:30 Glucose (Glutose) 15 gm Q15M PRN BUCCAL DECREASED GLUCOSE; Start 01/09/19 at 21:30 Insulin Glargine (Lantus) 18 units QHS SC Last administered on 02/22/19 20:34; Admin Dose 18 UNITS; Start 01/09/19 at 22:30 Carvedilol (Coreg) 3.125 mg BID PO Last administered on 02/23/19 08:19; Admin Dose 3.125 MG; Start 01/10/19 at 21:00 Vancomycin HCl (Vanco Iv Per Pharmacy) VANCOMYCIN PER PHARMACY PER PROTOCOL XX ; Start 01/11/19 at 02:30 Lisinopril (Zestril) 2.5 mg DAILY PO Last administered on 02/23/19 08:21; Admin Dose 2.5 MG; Start 01/13/19 at 09:00 Senna (Senokot) 1 tab DAILY PRN PO CONSTIPATION Last administered on 02/15/19 20:20; Admin Dose 1 TAB; Start 01/12/19 at 18:30 Neomycin/ Polymyxin/ Bacitracin (Neosporin Topical Oint) 1 applic DAILY TOP Last administered on 02/23/19 08:27; Admin Dose 1 APPLIC; Start 01/12/19 at 18:30 Cyanocobalamin (Vitamin B12 Inj) 1,000 mcg DAILY IM Last administered on 02/23/19 08:23; Admin Dose 1,000 MCG; Start 01/16/19 at 09:00 Metronidazole 100 ml @ 100 mls/hr Q8 IVPB Last administered on 02/23/19 14:13; Admin Dose 100 MLS/HR; Start 01/16/19 at 22:00 Insulin Aspart (Novolog Insulin Pen) NOVOLOG *MODERATE* ALGORITHM WITH MEALS BEDTIME SC Last administered on 02/23/19 12:56; Admin Dose 2 UNIT; Start 01/26/19 at 21:00 IV Flush (NS 10 ml) 10 ml PRN PRN IV IV PROTOCOL Last administered on 02/21/19 08:27; Admin Dose 10 ML; Start 01/29/19 at 17:00 Docusate Sodium (Colace) 100 mg BID PO Last administered on 02/23/19 08:20; Admin Dose 100 MG; Start 02/07/19 at 21:00 Magnesium Hydroxide (Milk Of Mag) 30 ml BID PRN PO CONSTIPATION Last administered on 02/22/19 20:29; Admin Dose 30 ML; Start 02/08/19 at 14:00 Sodium Hypochlorite (Dakins Diluted ()) 1 applic DAILY TP Last administered on 02/22/19 08:25; Admin Dose 1 APPLIC; Start 02/09/19 at 13:00 Acetaminophen (Tylenol Tab) 650 mg Q4H PRN PO MILD PAIN(1-3)OR ELEVATED TEMP; Start 02/10/19 at 22:00 Ondansetron HCl (Zofran Inj) 4 mg Q6H PRN IV NAUSEA AND/OR VOMITING Last a dministered on 02/22/19 08:27; Admin Dose 4 MG; Start 02/10/19 at 22:00 Furosemide (Lasix) 20 mg DAILY PO Last administered on 02/23/19 08:20; Admin Dose 20 MG; Start 02/13/19 at 09:00 Cyclobenzaprine HCl (Flexeril) 5 mg BID PO Last administered on 02/23/19 08:23; Admin Dose 5 MG; Start 02/13/19 at 09:00 Apixaban (Eliquis) 2.5 mg BID PO Last administered on 02/23/19 08:20; Admin Dose 2.5 MG; Start 02/14/19 at 12:00 [facility]isc[facility] This patient h a... PRN PRN XX WOUND CARE; Start 02/15/19 at 04:30 Alteplase, Recombinant (Cathflo (Activase)) 2 mg MAY REPEAT X1 PRN CATHETER IF CATHETER REMAINS OCCULUDED; Start 02/15/19 at 21:00 Alteplase, Recombinant (Cathflo (Activase)) 2 mg MAY REPEAT X1 PRN CATHETER IF CATHETER REMAINS OCCULUDED; Start 02/16/19 at 04:00 Vancomycin HCl 1.5 gm/Sodium Chloride 250 ml @ 83.333 mls/ hr Q12H IVPB Last administered on 02/23/19at 04:44; Admin Dose 83.333 MLS/HR; Start 02/19/19 at 05:00 Acetaminophen/ Hydrocodone Bitart ([place] (5/325)) 1 tab Q4H PRN PO MODERATE PAIN LEVEL 4-6 Last administered on 02/22/19at 16:41; Admin Dose 1 TAB; Start 02/20/19 at 14:00 Ceftazidime 50 ml @ 100 mls/hr Q12 IVPB Last administered on 02/23/19 11:29; Admin Dose 100 MLS/HR; Start 02/21/19 at 21:00 Al Hydrox/Mg Hydrox/Simethicone (Mag-Al Plus) 30 ml Q6H PRN PO GASTROINTESTINAL UPSET Last administered on 02/22/19at 15:37; Admin Dose 30 ML; Start 02/21/19 at 23:00 Pantoprazole (Protonix Tab) 40 mg DAILY@06 PO Last administered on 02/23/19 05:49; Admin Dose 40 MG; Start 02/22/19 at 15:30 Hydromorphone HCl (Dilaudid) 3 mg Q3H PRN IV SEVERE PAIN LEVEL 7-10 Last administered on 02/23/19 15:10; Admin Dose 3 MG; Start 02/22/19 at 18:00 RAMESH SOLORZANO Feb 23, 2019 15:20
--- NOTE | 2019-02-23 16:29 | CONS ---
Assessment/Plan Assessment/Plan Hospital Course (Demo Recall) Dressing change. Use Silver aliginate with daily dressing change. Assessment/Plan (Daily) Right heel ulceration graft in place and wound vac placed. Pt. to continue with wound vac and IV antibiotics. Will follow as needed. Can f/up in clinic after discharge. Consultation Date/Type/Reason Admit Date/Time January 09, 2019 at 18:17 Initial Consult Date 01/16/19 Requesting Provider: KRISTIN PRYOR MD Date/Time of Note DATE: 02/23/19 TIME: 16:26 Exam/Review of Systems Exam Vitals Vital Signs Date Temp Pulse Resp B/P (MAP) Pulse Ox O2 O2 Flow FiO2 Time Delivery Rate 02/23/19 97.9 79 18 101/67 100 Room Air 14:39 (78) Intake and Output 02/22/19 02/22/19 02/23/19 1515:00 23:00 07:00 IntakeIntake Total 1220 ml 1100.00 ml 263.3 ml OutputOutput Total 3000 ml 500 ml 2500 ml BalanceBalance -1780 ml 600.00 ml -2236.7 ml Results Result Diagram: 02/20/19 0442 02/23/19 0511 Results 24hrs Laboratory Tests Test 02/22/19 16:45 02/22/19 20:24 02/23/19 05:11 02/23/19 07:52 Bedside Glucose 139 139 109 Blood Urea Nitrogen 15 Creatinine 0.64 Test 02/23/19 12:11 Bedside Glucose 158 Medications Medication Current Medications Amiodarone HCl (Cordarone) 200 mg DAILY PO Last administered on 02/23/19at 08:23; Admin Dose 200 MG; Start 01/10/19 at 09:00 Digoxin (Digoxin) 0.125 mg DAILY@1300 PO Last administered on 02/23/19at 12:53; Admin Dose 0.125 MG; Start 01/10/19 at 13:00 Gabapentin (Neurontin) 600 mg DAILY PO Last administered on 02/23/19at 08:22; Admin Dose 600 MG; Start 01/10/19 at 09:00 Empaglifozin (Jardiance) 25 mg DAILY PO Last administered on 02/23/19at 08:21; Admin Dose 25 MG; Start 01/10/19 at 09:00 Linagliptin (Tradjenta) 5 mg DAILY PO Last administered on 02/23/19 08:22; Admin Dose 5 MG; Start 01/10/19 at 09:00 Diagnostic Test (Pha) (Accu-Chek) 1 ea 02 XX Last administered on 02/17/19at 02:35; Admin Dose 1 EA; Start 01/10/19 at 02:00 Miscellaneous Information 1 ea NOTE XX ; Start 01/09/19 at 21:30 Glucose (Glutose) 15 gm Q15M PRN PO DECREASED GLUCOSE; Start 01/09/19 at 21:30 Glucose (Glutose) 22.5 gm Q15M PRN PO DECREASED GLUCOSE; Start 01/09/19 at 21:30 Dextrose (D50w Syringe) 50 ml Q15M PRN IV DECREASED GLUCOSE; Start 01/09/19 at 21:30 Glucagon (Glucagen) 1 mg Q15M PRN IM DECREASED GLUCOSE; Start 01/09/19 at 21:30 Glucose (Glutose) 15 gm Q15M PRN BUCCAL DECREASED GLUCOSE; Start 01/09/19 at 21:30 Insulin Glargine (Lantus) 18 units QHS SC Last administered on 02/22/19at 20:34; Admin Dose 18 UNITS; Start 01/09/19 at 22:30 Carvedilol (Coreg) 3.125 mg BID PO Last administered on 02/23/19 08:19; Admin Dose 3.125 MG; Start 01/10/19 at 21:00 Vancomycin HCl (Vanco Iv Per Pharmacy) VANCOMYCIN PER PHARMACY PER PROTOCOL XX ; Start 01/11/19 at 02:30 Lisinopril (Zestril) 2.5 mg DAILY PO Last administered on 02/23/19 08:21; Admin Dose 2.5 MG; Start 01/13/19 at 09:00 Senna (Senokot) 1 tab DAILY PRN PO CONSTIPATION Last administered on 02/15/19 20:20; Admin Dose 1 TAB; Start 01/12/19 at 18:30 Neomycin/ Polymyxin/ Bacitracin (Neosporin Topical Oint) 1 applic DAILY TOP Last administered on 02/23/19 08:27; Admin Dose 1 APPLIC; Start 01/12/19 at 18:30 Cyanocobalamin (Vitamin B12 Inj) 1,000 mcg DAILY IM Last administered on 02/23/19 08:23; Admin Dose 1,000 MCG; Start 01/16/19 at 09:00 Metronidazole 100 ml @ 100 mls/hr Q8 IVPB Last administered on 02/23/19 14:13; Admin Dose 100 MLS/HR; Start 01/16/19 at 22:00 Insulin Aspart (Novolog Insulin Pen) NOVOLOG *MODERATE* ALGORITHM WITH MEALS BEDTIME SC Last administered on 02/23/19 12:56; Admin Dose 2 UNIT; Start 01/26/19 at 21:00 IV Flush (NS 10 ml) 10 ml PRN PRN IV IV PROTOCOL Last administered on 02/21/19 08:27; Admin Dose 10 ML; Start 01/29/19 at 17:00 Docusate Sodium (Colace) 100 mg BID PO Last administered on 02/23/19 08:20; Admin Dose 100 MG; Start 02/07/19 at 21:00 Magnesium Hydroxide (Milk Of Mag) 30 ml BID PRN PO CONSTIPATION Last a dministered on 02/22/19 20:29; Admin Dose 30 ML; Start 02/08/19 at 14:00 Sodium Hypochlorite (Dakins Diluted (1/40)) 1 applic DAILY TP Last administered on 02/22/19 08:25; Admin Dose 1 APPLIC; Start 02/09/19 at 13:00 Acetaminophen (Tylenol Tab) 650 mg Q4H PRN PO MILD PAIN(1-3)OR ELEVATED TEMP; Start 02/10/19 at 22:00 Ondansetron HCl (Zofran Inj) 4 mg Q6H PRN IV NAUSEA AND/OR VOMITING Last admini stered on 02/22/19 08:27; Admin Dose 4 MG; Start 02/10/19 at 22:00 Furosemide (Lasix) 20 mg DAILY PO Last administered on 02/23/19 08:20; Admin Dose 20 MG; Start 02/13/19 at 09:00 Cyclobenzaprine HCl (Flexeril) 5 mg BID PO Last administered on 02/23/19 08:23; Admin Dose 5 MG; Start 02/13/19 at 09:00 Apixaban (Eliquis) 2.5 mg BID PO Last administered on 02/23/19 08:20; Admin Dose 2.5 MG; Start 02/14/19 at 12:00 [facility] This patient metz... PRN PRN XX WOUND CARE; Start 02/15/19 at 04:30 Alteplase, Recombinant (Cathflo (Activase)) 2 mg MAY REPEAT X1 PRN CATHETER IF CATHETER REMAINS OCCULUDED; Start 02/15/19 at 21:00 Alteplase, Recombinant (Cathflo (Activase)) 2 mg MAY REPEAT X1 PRN CATHETER IF CATHETER REMAINS OCCULUDED; Start 02/16/19 at 04:00 Vancomycin HCl 1.5 gm/Sodium Chloride 250 ml @ 83.333 mls/ hr Q12H IVPB Last administered on 02/23/19at 04:44; Admin Dose 83.333 MLS/HR; Start 02/19/19 at 05:00 Acetaminophen/ Hydrocodone Bitart ([place] (5/325)) 1 tab Q4H PRN PO MODERATE PAIN LEVEL 4-6 Last administered on 02/22/19at 16:41; Admin Dose 1 TAB; Start 02/20/19 at 14:00 Ceftazidime 50 ml @ 100 mls/hr Q12 IVPB Last administered on 02/23/19at 11:29; Admin Dose 100 MLS/HR; Start 02/21/19 at 21:00 Al Hydrox/Mg Hydrox/Simethicone (Mag-Al Plus) 30 ml Q6H PRN PO GASTROINTESTINAL UPSET Last administered on 02/22/19at 15:37; Admin Dose 30 ML; Start 02/21/19 at 23:00 Pantoprazole (Protonix Tab) 40 mg DAILY@06 PO Last administered on 02/23/19at 05:49; Admin Dose 40 MG; Start 02/22/19 at 15:30 Hydromorphone HCl (Dilaudid) 3 mg Q3H PRN IV SEVERE PAIN LEVEL 7-10 Last administered on 02/23/19at 15:10; Admin Dose 3 MG; Start 02/22/19 at 18:00 KIM ODELL DPM Feb 23, 2019 16:28
--- NOTE | 2019-02-23 18:41 | CONS ---
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 CT on 01/10/2019 did not show evidence of OM. ESR 26 on 01/09/2019 and 37 on 01/12/2019; superficial wound culture grew pseudomonas, E. Coli, enterococcus (isolated from broth only), scant proteus, and scant CoNS. ESR 23 and repeat culture on 02/06/2019 grew pseudomonas - s/p debridement of R calcaneal ulceration 01/13/2019; intraop culture grew E. Coli, Proteus, and Enterococcus - chronic wound of R heel, in the past the wound culture grew E. coli - h/o OM of R foot, h/o 6 weeks of IV vancomycin and ceftriaxone in 2018. 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 Although his strain of pseudomonas is still sensitive to cefepime, I recommended cefepime be replaced with ceftazidime because Pt continues to grow pseudomonas in his wound culture - continue IV vancomycin (01/11/2019-) - change metronidazole from IV to PO (01/16/2019-) - given severity of infection noted on debridement, we recommend additional 4 weeks of antibiotics to try and salvage his foot - please check weekly CBC BMP and ESR while Pt's on IV antibiotics - Pt has referral to an ID specialist Dr. Scales who is contracted with his insurance plan the management d/w Pt, PHOEBE Dockery Consultation Date/Type/Reason Admit Date/Time January 09, 2019 at 18:17 Initial Consult Date 01/10/19 Type of Consult ID Requesting Provider: KRISTIN PRYOR MD Date/Time of Note DATE: 02/23/19 TIME: 18:40 24 HR Interval Summary Constitutional: no complaints Detailed Summary Eyes: no complaints ENT: no complaints Respiratory: no complaints Cardiovascular: no complaints Gastrointestinal: no complaints Genitourinary: no complaints Musculoskeletal: bone/joint pain (R foot) Skin: no complaints, other (feels that the skin color improved and is warmer) Neurologic: no complaints Exam/Review of Systems Exam Vitals Vital Signs Date Temp Pulse Resp B/P (MAP) Pulse Ox O2 O2 Flow FiO2 Time Delivery Rate 02/23/19 97.9 79 18 101/67 100 Room Air 14:39 (78) Intake and Output 02/22/19 02/22/19 02/23/19 1515:00 23:00 07:00 IntakeIntake Total 1220 ml 1100.00 ml 263.3 ml OutputOutput Total 3000 ml 500 ml 2500 ml BalanceBalance -1780 ml 600.00 ml -2236.7 ml Constitutional: alert, oriented, well developed, frail Psych: no complaints, nl mood/affect Head: normocephalic, atraumatic Eyes: nl conjunctiva, nl lids ENMT: nl external ears & nose, nl nasal mucosa & septum, mucosa pink and moist Respiratory: normal air movement Cardiovascular: other (RLE: bypass surgical site is dressed); No edema Gastrointestinal: soft; No distended Musculoskeletal: other (R foot is dressed, R heel has teressa and VAC) Extremities: No edema 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: F[employer]ER II-XII intact, nl mental status, nl speech Skin: nl turgor Results Result Diagram: 02/20/19 0442 02/23/19 0511 Results 24hrs Laboratory Tests Test 02/22/19 20:24 02/23/19 05:11 02/23/19 07:52 02/23/19 12:11 Bedside Glucose 139 109 158 Blood Urea Nitrogen 15 Creatinine 0.64 Test 02/23/19 17:04 Bedside Glucose 130 Medications Medication Current Medications Amiodarone HCl (Cordarone) 200 mg DAILY PO Last administered on 02/23/19at 08:23; Admin Dose 200 MG; Start 01/10/19 at 09:00 Digoxin (Digoxin) 0.125 mg DAILY@1300 PO Last administered on 02/23/19 12:53; Admin Dose 0.125 MG; Start 01/10/19 at 13:00 Gabapentin (Neurontin) 600 mg DAILY PO Last administered on 02/23/19 08:22; Admin Dose 600 MG; Start 01/10/19 at 09:00 Empaglifozin (Jardiance) 25 mg DAILY PO Last administered on 02/23/19 08:21; Admin Dose 25 MG; Start 01/10/19 at 09:00 Linagliptin (Tradjenta) 5 mg DAILY PO Last administered on 02/23/19 08:22; Adm in Dose 5 MG; Start 01/10/19 at 09:00 Diagnostic Test (Pha) (Accu-Chek) 1 ea 02 XX Last administered on 02/17/19at 02:35; Admin Dose 1 EA; Start 01/10/19 at 02:00 Miscellaneous Information 1 ea NOTE XX ; Start 01/09/19 at 21:30 Glucose (Glutose) 15 gm Q15M PRN PO DECREASED GLUCOSE; Start 01/09/19 at 21:30 Glucose (Glutose) 22.5 gm Q15M PRN PO DECREASED GLUCOSE; Start 01/09/19 at 21:30 Dextrose (D50w Syringe) 50 ml Q15M PRN IV DECREASED GLUCOSE; Start 01/09/19 at 21:30 Glucagon (Glucagen) 1 mg Q15M PRN IM DECREASED GLUCOSE; Start 01/09/19 at 21:30 Glucose (Glutose) 15 gm Q15M PRN BUCCAL DECREASED GLUCOSE; Start 01/09/19 at 21:30 Insulin Glargine (Lantus) 18 units QHS SC Last administered on 02/22/19at 20:34; Admin Dose 18 UNITS; Start 01/09/19 at 22:30 Carvedilol (Coreg) 3.125 mg BID PO Last administered on 02/23/19 08:19; Admin Dose 3.125 MG; Start 01/10/19 at 21:00 Vancomycin HCl (Vanco Iv Per Pharmacy) VANCOMYCIN PER PHARMACY PER PROTOCOL XX ; Start 01/11/19 at 02:30 Lisinopril (Zestril) 2.5 mg DAILY PO Last administered on 02/23/19 08:21; Admin Dose 2.5 MG; Start 01/13/19 at 09:00 Senna (Senokot) 1 tab DAILY PRN PO CONSTIPATION Last administered on 02/15/19 20:20; Admin Dose 1 TAB; Start 01/12/19 at 18:30 Neomycin/ Polymyxin/ Bacitracin (Neosporin Topical Oint) 1 applic DAILY TOP Last administered on 02/23/19 08:27; Admin Dose 1 APPLIC; Start 01/12/19 at 18:30 Cyanocobalamin (Vitamin B12 Inj) 1,000 mcg DAILY IM Last administered on 02/23/19 08:23; Admin Dose 1,000 MCG; Start 01/16/19 at 09:00 Metronidazole 100 ml @ 100 mls/hr Q8 IVPB Last administered on 02/23/19 14:1 3; Admin Dose 100 MLS/HR; Start 01/16/19 at 22:00 Insulin Aspart (Novolog Insulin Pen) NOVOLOG *MODERATE* ALGORITHM WITH MEALS BEDTIME SC Last administered on 02/23/19 12:56; Admin Dose 2 UNIT; Start 01/26/19 at 21:00 IV Flush (NS 10 ml) 10 ml PRN PRN IV IV PROTOCOL Last administered on 02/21/19 08:27; Admin Dose 10 ML; Start 01/29/19 at 17:00 Docusate Sodium (Colace) 100 mg BID PO Last administered on 02/23/19 08:20; Admin Dose 100 MG; Start 02/07/19 at 21:00 Magnesium Hydroxide (Milk Of Mag) 30 ml BID PRN PO CONSTIPATION Last administered on 02/22/19 20:29; Admin Dose 30 ML; Start 02/08/19 at 14:00 Sodium Hypochlorite (Dakins Diluted (1/40)) 1 applic DAILY TP Last administered on 02/22/19 08:25; Admin Dose 1 APPLIC; Start 02/09/19 at 13:00 Acetaminophen (Tylenol Tab) 650 mg Q4H PRN PO MILD PAIN(1-3)OR ELEVATED TEMP; Start 02/10/19 at 22:00 Ondansetron HCl (Zofran Inj) 4 mg Q6H PRN IV NAUSEA AND/OR VOMITING Last administered on 02/22/19 08:27; Admin Dose 4 MG; Start 02/10/19 at 22:00 Furosemide (Lasix) 20 mg DAILY PO Last administered on 02/23/19 08:20; Admin Dose 20 MG; Start 02/13/19 at 09:00 Cyclobenzaprine HCl (Flexeril) 5 mg BID PO Last administered on 02/23/19 08 :23; Admin Dose 5 MG; Start 02/13/19 at 09:00 Apixaban (Eliquis) 2.5 mg BID PO Last administered on 02/23/19 08:20; Admin Dose 2.5 MG; Start 02/14/19 at 12:00 Miscellaneous Information (Pending Santyl Order For Wound Care) This patient metz... PRN PRN XX WOUND CARE; Start 02/15/19 at 04:30 Alteplase, Recombinant (Cathflo (Activase)) 2 mg MAY REPEAT X1 PRN CATHETER IF CATHETER REMAINS OCCULUDED; Start 02/15/19 at 21:00 Alteplase, Recombinant (Cathflo (Activase)) 2 mg MAY REPEAT X1 PRN CATHETER IF CATHETER REMAINS OCCULUDED; Start 02/16/19 at 04:00 Vancomycin HCl 1.5 gm/Sodium Chloride 250 ml @ 83.333 mls/ hr Q12H IVPB Last administered on 02/23/19at 17:28; Admin Dose 83.333 MLS/HR; Start 02/19/19 at 05:00 Acetaminophen/ Hydrocodone Bitart ([place] (5/325)) 1 tab Q4H PRN PO MODERATE PAIN LEVEL 4-6 Last administered on 02/22/19at 16:41; Admin Dose 1 TAB; Start 02/20/19 at 14:00 Ceftazidime 50 ml @ 100 mls/hr Q12 IVPB Last administered on 02/23/19 11:29; Admin Dose 100 MLS/HR; Start 02/21/19 at 21:00 Al Hydrox/Mg Hydrox/Simethicone (Mag-Al Plus) 30 ml Q6H PRN PO GASTROINTESTINAL UPSET Last administered on 02/22/19at 15:37; Admin Dose 30 ML; Start 02/21/19 at 23:00 Pantoprazole (Protonix Tab) 40 mg DAILY@06 PO Last administered on 02/23/19at 05:49; Admin Dose 40 MG; Start 02/22/19 at 15:30 Hydromorphone HCl (Dilaudid) 3 mg Q3H PRN IV SEVERE PAIN LEVEL 7-10 Last administered on 02/23/19at 15:10; Admin Dose 3 MG; Start 02/22/19 at 18:00 CARMITA WATTS M.D. Feb 23, 2019 18:41
--- NOTE | 2019-02-23 20:10 | CONS ---
Assessment/Plan Assessment/Plan Hospital Course (Demo Recall) IMP: 1.Pre-op for peripheral bypass surgery. Lexiscan with no ischemia/+scar EF 28%. Echo EF 25%. OK to proceed to surgery at moderate CV risk. Now POD#3 s/p R POP- DP peripheral bypass. Now s/p heel debridement today 2.Cardiomyopathy with low EF-severely depressed by echo this admit 3.Hoth-borderline today 4.HL 5.Non-healing LE ulcer 6.PAD-severe s/p prior END FRAZER. Now POD#1 s/p POP to DP r side 7.DM 8. 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 Recc: -On med-surg -Continue digoxin -Continue coreg and zestril for treatment of cardiomyopathy -Continue amiodarone -Continue abx's and f/u cx data -local wound care -Contine lasix po daily and follow volume status closely -pain control -Continue eliquis -s/p debridement of ulcer/continue local wound care Consultation Date/Type/Reason Admit Date/Time January 09, 2019 at 18:17 Initial Consult Date 01/10/19 Type of Consult Cardiology Reason for Consultation Preop Requesting Provider: RKISTIN PRYOR MD Date/Time of Note DATE: 02/23/19 TIME: 20:08 Exam/Review of Systems Vital Signs Vitals Vital Signs Date Temp Pulse Resp B/P (MAP) Pulse Ox O2 O2 Flow FiO2 Time Delivery Rate 02/23/19 97.9 79 18 101/67 100 Room Air 14:39 (78) Intake and Output 02/22/19 02/22/19 02/23/19 1515:00 23:00 07:00 IntakeIntake Total 1220 ml 1100.00 ml 263.3 ml OutputOutput Total 3000 ml 500 ml 2500 ml BalanceBalance -1780 ml 600.00 ml -2236.7 ml Exam Exam Review of Systems: CONSTITUTIONAL: No fevers, chills. PULMONARY: No sob CARDIOVASCULAR: No chest pain/palpitations GASTROINTESTINAL: No nausea/vomiting. GENITOURINARY: No hematuria/dysuria. MUSCULOSKELETAL: No myagias/arthalgias. PSYCHIATRIC: The patient denies depression. NEUROLOGIC: No weakness Constitutional: alert Psych: no complaints Head: normocephalic ENMT: mucosa pink and moist Neck: supple, jvd (9 cm water) Respiratory: diminished breath sounds Cardiovascular: regular rate and rhythm Gastrointestinal: soft, non-tender Musculoskeletal: muscle tone (normal) Extremities: edema (none) 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: other (No focal deficits) Labs Result Diagram: 02/20/19 0442 02/23/19 0511 Results 24hrs Laboratory Tests Test 02/22/19 20:24 02/23/19 05:11 02/23/19 07:52 02/23/19 12:11 Bedside Glucose 139 109 158 Blood Urea Nitrogen 15 Creatinine 0.64 Test 02/23/19 17:04 Bedside Glucose 130 Medications Medications Current Medications Amiodarone HCl (Cordarone) 200 mg DAILY PO Last administered on 02/23/19at 08:23; Admin Dose 200 MG; Start 01/10/19 at 09:00 Digoxin (Digoxin) 0.125 mg DAILY@1300 PO Last administered on 02/23/19at 12:53; Admin Dose 0.125 MG; Start 01/10/19 at 13:00 Gabapentin (Neurontin) 600 mg DAILY PO Last administered on 02/23/19at 08:22; Admin Dose 600 MG; Start 01/10/19 at 09:00 Empaglifozin (Jardiance) 25 mg DAILY PO Last administered on 02/23/19at 08:21; Admin Dose 25 MG; Start 01/10/19 at 09:00 Linagliptin (Tradjenta) 5 mg DAILY PO Last administered on 02/23/19at 08:22; Admin Dose 5 MG; Start 01/10/19 at 09:00 Diagnostic Test (Pha) (Accu-Chek) 1 ea 02 XX Last administered on 02/17/19at 02:35; Admin Dose 1 EA; Start 01/10/19 at 02:00 Miscellaneous Information 1 ea NOTE XX ; Start 01/09/19 at 21:30 Glucose (Glutose) 15 gm Q15M PRN PO DECREASED GLUCOSE; Start 01/09/19 at 21:30 Glucose (Glutose) 22.5 gm Q15M PRN PO DECREASED GLUCOSE; Start 01/09/19 at 21:30 Dextrose (D50w Syringe) 50 ml Q15M PRN IV DECREASED GLUCOSE; Start 01/09/19 at 21:30 Glucagon (Glucagen) 1 mg Q15M PRN IM DECREASED GLUCOSE; Start 01/09/19 at 21:30 Glucose (Glutose) 15 gm Q15M PRN BUCCAL DECREASED GLUCOSE; Start 01/09/19 at 21:30 Insulin Glargine (Lantus) 18 units QHS SC Last administered on 02/22/19 20:34; Admin Dose 18 UNITS; Start 01/09/19 at 22:30 Carvedilol (Coreg) 3.125 mg BID PO Last administered on 02/23/19 08:19; Admin Dose 3.125 MG; Start 01/10/19 at 21:00 Vancomycin HCl (Vanco Iv Per Pharmacy) VANCOMYCIN PER PHARMACY PER PROTOCOL XX ; Start 01/11/19 at 02:30 Lisinopril (Zestril) 2.5 mg DAILY PO Last administered on 02/23/19 08:21; Admin Dose 2.5 MG; Start 01/13/19 at 09:00 Senna (Senokot) 1 tab DAILY PRN PO CONSTIPATION Last administered on 02/15/19 20:20; Admin Dose 1 TAB; Start 01/12/19 at 18:30 Neomycin/ Polymyxin/ Bacitracin (Neosporin Topical Oint) 1 applic DAILY TOP Last administered on 02/23/19 08:27; Admin Dose 1 APPLIC; Start 01/12/19 at 18:30 Cyanocobalamin (Vitamin B12 Inj) 1,000 mcg DAILY IM Last administered on 02/23/19 08:23; Admin Dose 1,000 MCG; Start 01/16/19 at 09:00 Insulin Aspart (Novolog Insulin Pen) NOVOLOG *MODERATE* ALGORITHM WITH MEALS BEDTIME SC Last administered on 02/23/19at 12:56; Admin Dose 2 UNIT; Start 01/26/19 at 21:00 IV Flush (NS 10 ml) 10 ml PRN PRN IV IV PROTOCOL Last administered on 02/21/19 08:27; Admin Dose 10 ML; Start 01/29/19 at 17:00 Docusate Sodium (Colace) 100 mg BID PO Last administered on 02/23/19 08:20; Admin Dose 100 MG; Start 02/07/19 at 21:00 Magnesium Hydroxide (Milk Of Mag) 30 ml BID PRN PO CONSTIPATION Last administered on 02/22/19 20:29; Admin Dose 30 ML; Start 02/08/19 at 14:00 Sodium Hypochlorite (Dakins Diluted ()) 1 applic DAILY TP Last administered on 02/22/19at 08:25; Admin Dose 1 APPLIC; Start 02/09/19 at 13:00 Acetaminophen (Tylenol Tab) 650 mg Q4H PRN PO MILD PAIN(1-3)OR ELEVATED TEMP; Start 02/10/19 at 22:00 Ondansetron HCl (Zofran Inj) 4 mg Q6H PRN IV NAUSEA AND/OR VOMITING Last administered on 02/22/19at 08:27; Admin Dose 4 MG; Start 02/10/19 at 22:00 Furosemide (Lasix) 20 mg DAILY PO Last administered on 02/23/19 08:20; Admin Dose 20 MG; Start 02/13/19 at 09:00 Cyclobenzaprine HCl (Flexeril) 5 mg BID PO Last administered on 02/23/19 08:23; Admin Dose 5 MG; Start 02/13/19 at 09:00 Apixaban (Eliquis) 2.5 mg BID PO Last administered on 02/23/19at 08:20; Admin Dose 2.5 MG; Start 02/14/19 at 12:00 [facility] This patient metz... PRN PRN XX WOUND CARE; Start 02/15/19 at 04:30 Alteplase, Recombinant (Cathflo (Activase)) 2 mg MAY REPEAT X1 PRN CATHETER IF CATHETER REMAINS OCCULUDED; Start 02/15/19 at 21:00 Alteplase, Recombinant (Cathflo (Activase)) 2 mg MAY REPEAT X1 PRN CATHETER IF CATHETER REMAINS OCCULUDED; Start 02/16/19 at 04:00 Vancomycin HCl 1.5 gm/Sodium Chloride 250 ml @ 83.333 mls/ hr Q12H IVPB Last administered on 02/23/19at 17:28; Admin Dose 83.333 MLS/HR; Start 02/19/19 at 05:00 Acetaminophen/ Hydrocodone Bitart ([place] (5/325)) 1 tab Q4H PRN PO MODERATE PAIN LEVEL 4-6 Last administered on 02/22/19at 16:41; Admin Dose 1 TAB; Start 02/20/19 at 14:00 Al Hydrox/Mg Hydrox/Simethicone (Mag-Al Plus) 30 ml Q6H PRN PO GASTROINTESTINAL UPSET Last administered on 02/22/19at 15:37; Admin Dose 30 ML; Start 02/21/19 at 23:00 Pantoprazole (Protonix Tab) 40 mg DAILY@06 PO Last administered on 02/23/19at 05:49; Admin Dose 40 MG; Start 02/22/19 at 15:30 Hydromorphone HCl (Dilaudid) 3 mg Q3H PRN IV SEVERE PAIN LEVEL 7-10 Last administered on 02/23/19at 18:43; Admin Dose 3 MG; Start 02/22/19 at 18:00 Ceftazidime/ Dextrose 50 ml @ 100 mls/hr Q8 IVPB ; Start 02/23/19 at 22:00 Metronidazole (Flagyl) 500 mg Q8 PO ; Start 02/23/19 at 22:00 VERO ARELLANO Feb 23, 2019 20:10
[2019-02-23] MEDS: INSULIN GLARGINE [LANTus] (100 UNITS/ML) SYG SC SCH (21:04)
[2019-02-23] MEDS: metroNIDAZOLE 500 MG TAB PO SCH (21:06)
[2019-02-23] MEDS: CEFTAZIDIME 2GM/50 ML (PMX) 50 ML IVPB SCH (21:06)
[2019-02-23 21:14] VITALS: BP 102/63; PULSE 76; RESP 18
[2019-02-24] MEDS: HYDROmorphONE 2 MG/ML SYG IV PRN ×6 (01:43→19:51)
[2019-02-24] MEDS: ACCU-CHEK XX SCH (02:00)
[2019-02-24] MEDS: HYDROCODONE/APAP (5/325) TAB PO PRN ×3 (03:22→21:10)
[2019-02-24 03:33] VITALS: BP 97/59; PULSE 77; RESP 18
[2019-02-24] MEDS: metroNIDAZOLE 500 MG TAB PO SCH ×3 (05:01→21:10)
[2019-02-24] MEDS: VANCOMYCIN HCL 1.5 GM in SOD CHLORIDE 0.9% 250 ML IVPB SCH ×2 (05:01→17:15)
[2019-02-24] MEDS: PANTOPRAZOLE (EC) 40 MG TAB PO SCH (05:01)
[2019-02-24] MEDS: CEFTAZIDIME 2GM/50 ML (PMX) 50 ML IVPB SCH ×3 (05:03→22:28)
[2019-02-24 07:49] VITALS: BP 108/65; PULSE 83; RESP 16
[2019-02-24] MEDS: INSULIN ASPART [NOVOLOG] 3 ML PEN SC SCH ×4 (08:27→21:00)
[2019-02-24] MEDS: NEOMYC/POLYMYX/BACIT 30 GM OINT TOP SCH (09:00)
[2019-02-24] MEDS: DOCUSATE SODIUM 100 MG CAP PO SCH ×2 (09:30→21:02)
[2019-02-24] MEDS: CYANOCOBALAMIN 1000 MCG INJ IM SCH (09:30)
[2019-02-24] MEDS: AMIODARONE 200 MG TAB PO SCH (09:30)
[2019-02-24] MEDS: EMPAGLIFLOZIN 10 MG TABLET PO SCH (09:31)
[2019-02-24] MEDS: CYCLOBENZAPRINE 10 MG TAB PO SCH ×2 (09:31→21:07)
[2019-02-24] MEDS: APIXABAN 5 MG TABLET PO SCH ×2 (09:31→21:02)
[2019-02-24] MEDS: LISINOPRIL 5 MG TAB PO SCH (09:32)
[2019-02-24] MEDS: LINAGLIPTIN 5 MG TABLET PO SCH (09:32)
[2019-02-24] MEDS: FUROSEMIDE 20 MG TAB PO SCH (09:32)
[2019-02-24] MEDS: GABAPENTIN 300 MG CAP PO SCH (09:32)
--- NOTE | 2019-02-24 10:20 | CONS ---
Consultation Date/Type/Reason Admit Date/Time January 09, 2019 at 18:17 Initial Consult Date 01/10/19 Type of Consult Cardiology Requesting Provider: KRISTIN PRYOR MD Date/Time of Note DATE: 02/24/19 TIME: 10:19 24 HR Interval Summary Free Text/Dictation VS stable - con't to recover. Exam/Review of Systems Vital Signs Vitals Vital Signs Date Temp Pulse Resp B/P (MAP) Pulse Ox O2 O2 Flow FiO2 Time Delivery Rate 02/24/19 98.2 83 16 108/65 99 07:49 (79) 02/23/19 Room Air 14:39 Intake and Output 02/23/19 02/23/19 02/24/19 1515:00 23:00 07:00 IntakeIntake Total 986.7 ml 501 ml OutputOutput Total 1850 ml 1100 ml 1200 ml BalanceBalance -863.3 ml -599 ml -1200 ml Labs Result Diagram: 02/24/19 0549 02/24/19 0549 Results 24hrs Laboratory Tests Test 02/23/19 12:11 02/23/19 17:04 02/23/19 20:59 02/24/19 05:49 Bedside Glucose 158 130 161 White Blood Count 9.3 Red Blood Count 3.93 L Hemoglobin 11.0 L Hematocrit 35.1 L Mean Corpuscular 89.3 Volume Mean Corpuscular 28.0 L Hemoglobin Mean Corpuscular 31.3 L Hemoglobin Concent Red Cell 15.1 H Distribution Width Platelet Count 365 Mean Platelet Volume 10.4 Immature 0.300 Granulocytes % Neutrophils % 58.7 Lymphocytes % 24.4 Monocytes % 11.0 Eosinophils % 5.2 Basophils % 0.4 Nucleated Red Blood 0.0 Cells % Immature 0.030 Granulocytes # Neutrophils # 5.5 Lymphocytes # 2.3 Monocytes # 1.0 H Eosinophils # 0.5 Basophils # 0.0 Nucleated Red Blood 0.0 Cells # Sodium Level 136 Potassium Level 4.2 Chloride Level 98 Carbon Dioxide Level 29 Anion Gap 9 Blood Urea Nitrogen 16 Creatinine 0.59 L Est Glomerular > 60 Filtrat Rate mL/min Glucose Level 100 Calcium Level 8.8 Test 02/24/19 08:25 Bedside Glucose 165 Medications Medications Current Medications Amiodarone HCl (Cordarone) 200 mg DAILY PO Last administered on 02/24/19at 09:30; Admin Dose 200 MG; Start 01/10/19 at 09:00 Digoxin (Digoxin) 0.125 mg DAILY@1300 PO Last administered on 02/23/19at 12:53; Admin Dose 0.125 MG; Start 01/10/19 at 13:00 Gabapentin (Neurontin) 600 mg DAILY PO Last administered on 02/24/19 09:32; Admin Dose 600 MG; Start 01/10/19 at 09:00 Empaglifozin (Jardiance) 25 mg DAILY PO Last administered on 02/24/19 09:31; Admin Dose 25 MG; Start 01/10/19 at 09:00 Linagliptin (Tradjenta) 5 mg DAILY PO Last administered on 02/24/19 09:32; Ad min Dose 5 MG; Start 01/10/19 at 09:00 Diagnostic Test (Pha) (Accu-Chek) 1 ea 02 XX Last administered on 02/17/19at 02:35; Admin Dose 1 EA; Start 01/10/19 at 02:00 Miscellaneous Information 1 ea NOTE XX ; Start 01/09/19 at 21:30 Glucose (Glutose) 15 gm Q15M PRN PO DECREASED GLUCOSE; Start 01/09/19 at 21:30 Glucose (Glutose) 22.5 gm Q15M PRN PO DECREASED GLUCOSE; Start 01/09/19 at 21:30 Dextrose (D50w Syringe) 50 ml Q15M PRN IV DECREASED GLUCOSE; Start 01/09/19 at 21:30 Glucagon (Glucagen) 1 mg Q15M PRN IM DECREASED GLUCOSE; Start 01/09/19 at 21:30 Glucose (Glutose) 15 gm Q15M PRN BUCCAL DECREASED GLUCOSE; Start 01/09/19 at 21:30 Insulin Glargine (Lantus) 18 units QHS SC Last administered on 02/23/19at 21:04; Admin Dose 18 UNITS; Start 01/09/19 at 22:30 Carvedilol (Coreg) 3.125 mg BID PO Last administered on 02/24/19 09:31; Admin Dose 3.125 MG; Start 01/10/19 at 21:00 Vancomycin HCl (Vanco Iv Per Pharmacy) VANCOMYCIN PER PHARMACY PER PROTOCOL XX ; Start 01/11/19 at 02:30 Lisinopril (Zestril) 2.5 mg DAILY PO Last administered on 02/24/19 09:32; Admin Dose 2.5 MG; Start 01/13/19 at 09:00 Senna (Senokot) 1 tab DAILY PRN PO CONSTIPATION Last administered on 02/15/19 20:20; Admin Dose 1 TAB; Start 01/12/19 at 18:30 Neomycin/ Polymyxin/ Bacitracin (Neosporin Topical Oint) 1 applic DAILY TOP Last administered on 02/23/19 08:27; Admin Dose 1 APPLIC; Start 01/12/19 at 18:30 Cyanocobalamin (Vitamin B12 Inj) 1,000 mcg DAILY IM Last administered on 02/24/19 09:30; Admin Dose 1,000 MCG; Start 01/16/19 at 09:00 Insulin Aspart (Novolog Insulin Pen) NOVOLOG *MODERATE* ALGORITHM WITH MEALS BEDTIME SC Last administered on 02/24/19 08:27; Admin Dose 2 UNIT; Start 01/26/19 at 21:00 IV Flush (NS 10 ml) 10 ml PRN PRN IV IV PROTOCOL Last administered on 02/21/19 08:27; Admin Dose 10 ML; Start 01/29/19 at 17:00 Docusate Sodium (Colace) 100 mg BID PO Last administered on 02/24/19 09:30; Admin Dose 100 MG; Start 02/07/19 at 21:00 Magnesium Hydroxide (Milk Of Mag) 30 ml BID PRN PO CONSTIPATION Last administered on 02/22/19 20:29; Admin Dose 30 ML; Start 02/08/19 at 14:00 Sodium Hypochlorite (Dakins Diluted (40)) 1 applic DAILY TP Last administered on 02/22/19 08:25; Admin Dose 1 APPLIC; Start 02/09/19 at 13:00 Acetaminophen (Tylenol Tab) 650 mg Q4H PRN PO MILD PAIN(1-3)OR ELEVATED TEMP; Start 02/10/19 at 22:00 Ondansetron HCl (Zofran Inj) 4 mg Q6H PRN IV NAUSEA AND/OR VOMITING Last administered on 02/22/19 08:27; Admin Dose 4 MG; Start 02/10/19 at 22:00 Furosemide (Lasix) 20 mg DAILY PO Last administered on 02/24/19 09:32; Admin Dose 20 MG; Start 02/13/19 at 09:00 Cyclobenzaprine HCl (Flexeril) 5 mg BID PO Last administered on 02/24/19at 09:31; Admin Dose 5 MG; Start 02/13/19 at 09:00 Apixaban (Eliquis) 2.5 mg BID PO Last administered on 02/24/19at 09:31; Admin Dose 2.5 MG; Start 02/14/19 at 12:00 Miscellaneous Information (Pending Santyl Order For Wound Care) This patient metz... PRN PRN XX WOUND CARE; Start 02/15/19 at 04:30 Alteplase, Recombinant (Cathflo (Activase)) 2 mg MAY REPEAT X1 PRN CATHETER IF CATHETER REMAINS OCCULUDED; Start 02/15/19 at 21:00 Alteplase, Recombinant (Cathflo (Activase)) 2 mg MAY REPEAT X1 PRN CATHETER IF CATHETER REMAINS OCCULUDED; Start 02/16/19 at 04:00 Vancomycin HCl 1.5 gm/Sodium Chloride 250 ml @ 83.333 mls/ hr Q12H IVPB Last administered on 02/24/19at 05:01; Admin Dose 83.333 MLS/HR; Start 02/19/19 at 05:00 Acetaminophen/ Hydrocodone Bitart ([place] (5/325)) 1 tab Q4H PRN PO MODERATE PAIN LEVEL 4-6 Last administered on 02/24/19at 03:22; Admin Dose 1 TAB; Start 02/20/19 at 14:00 Al Hydrox/Mg Hydrox/Simethicone (Mag-Al Plus) 30 ml Q6H PRN PO GASTROINTESTINAL UPSET Last administered on 02/22/19at 15:37; Admin Dose 30 ML; Start 02/21/19 at 23:00 Pantoprazole (Protonix Tab) 40 mg DAILY@06 PO Last administered on 02/24/19at 05:01; Admin Dose 40 MG; Start 02/22/19 at 15:30 Hydromorphone HCl (Dilaudid) 3 mg Q3H PRN IV SEVERE PAIN LEVEL 7-10 Last administered on 02/24/19at 08:33; Admin Dose 3 MG; Start 02/22/19 at 18:00 Ceftazidime/ Dextrose 50 ml @ 100 mls/hr Q8 IVPB Last administered on 02/24/19at 05:03; Admin Dose 100 MLS/HR; Start 02/23/19 at 22:00 Metronidazole (Flagyl) 500 mg Q8 PO Last administered on 02/24/19at 05:01; Admin Dose 500 MG; Start 02/23/19 at 22:00 MIGUEL WADE MD Feb 24, 2019 10:20
[2019-02-24] MEDS: DIGOXIN 0.125 MG TAB PO SCH (14:13)
[2019-02-24] MEDS: DAKINS 0.0125%(1/40) 473 ML SOLUTION TP SCH (14:14)
[2019-02-24 14:44] VITALS: BP 105/68; PULSE 76; RESP 16
--- NOTE | 2019-02-24 16:45 | PN ---
Date/Time of Note Date/Time of Note DATE: 02/24/19 TIME: 16:43 Assessment/Plan VTE Prophylaxis Risk score (from Nsg)>0 risk: 6 SCD applied (from Ns): Yes Pharmacological prophylaxis: NA/contraindicated Pharm contraindication: blood coag disorder Lines/Catheters IV Catheter Type (from Nrsg): PICC Line Central line still needed: Yes Urinary Cath still in place: No Assessment/Plan Hospital Course Patient is complains of the food and low back pain requiring IV Dilaudid, antibiotic management discussed with Dr. Landa, case management to arrange home health for wound care and antibiotics at home for 4 weeks. Assessment/Plan -Chronic peripheral vascular disease, history of angioplasty x2. Dr. Sheppard is following in vascular surgery consultation. S/p right pop DP bypass on 02/13/19. -Right heel necrotic wound. Dr. Mata is following in podiatry consultation. Status post debridement and application of allograft on 02/18/2019. Continue antibiotics per ID. Dr. Urbano is following in infection disease consultation. 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 EUS and FNA as an outpatient to confirm GIST tumor diagnosis. Continue PPI. -New onset of anemia and hypotension requiring blood transfusion on 01/15/2019, stool for OB is negative. -Coronary artery disease, status post coronary artery bypass graft. -Cardiomyopathy with ejection fraction of 25%. Continue Coreg. Dr. Foster is following in cardiology consultation. -Status post AICD. -Hx of Hypertension. -Diabetes hemoglobin A1c 7.6. Continue Lantus and NovoLog. -Right knee contusion and abrasion status post fall. Status post evaluation by Dr. Zelaya and orthopedic surgery. No signs of fracture or dystrophic dislocation. -Chronic low back pain with significant spondylolisthesis grade II at the level of L5 to S1. Status post evaluation and pain management by Dr. Robertson and pain management consultation. Further recommendations based on clinical course. Plan of care discussed with Dr. Mann. Result Diagram: 02/24/19 0549 02/24/19 0549 Results 24hrs Laboratory Tests Test 02/23/19 17:04 02/23/19 20:59 02/24/19 05:49 02/24/19 08:25 Bedside Glucose 130 161 165 White Blood Count 9.3 Red Blood Count 3.93 L Hemoglobin 11.0 L Hematocrit 35.1 L Mean Corpuscular 89.3 Volume Mean Corpuscular 28.0 L Hemoglobin Mean Corpuscular 31.3 L Hemoglobin Concent Red Cell 15.1 H Distribution Width Platelet Count 365 Mean Platelet Volume 10.4 Immature 0.300 Granulocytes % Neutrophils % 58.7 Lymphocytes % 24.4 Monocytes % 11.0 Eosinophils % 5.2 Basophils % 0.4 Nucleated Red Blood 0.0 Cells % Immature 0.030 Granulocytes # Neutrophils # 5.5 Lymphocytes # 2.3 Monocytes # 1.0 H Eosinophils # 0.5 Basophils # 0.0 Nucleated Red Blood 0.0 Cells # Sodium Level 136 Potassium Level 4.2 Chloride Level 98 Carbon Dioxide Level 29 Anion Gap 9 Blood Urea Nitrogen 16 Creatinine 0.59 L Est Glomerular > 60 Filtrat Rate mL/min Glucose Level 100 Calcium Level 8.8 Test 02/24/19 12:24 Bedside Glucose 126 Exam/Review of Systems Exam Vitals Vital Signs Date Temp Pulse Resp B/P (MAP) Pulse Ox O2 O2 Flow FiO2 Time Delivery Rate 02/24/19 98.0 76 16 105/68 100 14:44 (80) 02/23/19 Room Air 14:39 Intake and Output 02/23/19 02/23/19 02/24/19 1515:00 23:00 07:00 IntakeIntake Total 986.7 ml 501 ml OutputOutput Total 1850 ml 1100 ml 1200 ml BalanceBalance -863.3 ml -599 ml -1200 ml Exam Constitutional: alert, oriented Respiratory: clear to auscultation Cardiovascular: regular rhythm and rate, AICD Gastrointestinal: soft, non-tender Extremities: normal pulses, other (Right heel wound with wound vac, R leg surgical incision covered with dressing) RUE PICC Results Results 24hrs Laboratory Tests Test 02/23/19 17:04 02/23/19 20:59 02/24/19 05:49 02/24/19 08:25 Bedside Glucose 130 161 165 White Blood Count 9.3 Red Blood Count 3.93 L Hemoglobin 11.0 L Hematocrit 35.1 L Mean Corpuscular 89.3 Volume Mean Corpuscular 28.0 L Hemoglobin Mean Corpuscular 31.3 L Hemoglobin Concent Red Cell 15.1 H Distribution Width Platelet Count 365 Mean Platelet Volume 10.4 Immature 0.300 Granulocytes % Neutrophils % 58.7 Lymphocytes % 24.4 Monocytes % 11.0 Eosinophils % 5.2 Basophils % 0.4 Nucleated Red Blood 0.0 Cells % Immature 0.030 Granulocytes # Neutrophils # 5.5 Lymphocytes # 2.3 Monocytes # 1.0 H Eosinophils # 0.5 Basophils # 0.0 Nucleated Red Blood 0.0 Cells # Sodium Level 136 Potassium Level 4.2 Chloride Level 98 Carbon Dioxide Level 29 Anion Gap 9 Blood Urea Nitrogen 16 Creatinine 0.59 L Est Glomerular > 60 Filtrat Rate mL/min Glucose Level 100 Calcium Level 8.8 Test 02/24/19 12:24 Bedside Glucose 126 Medications Medication Current Medications Amiodarone HCl (Cordarone) 200 mg DAILY PO Last administered on 02/24/19 09:30; Admin Dose 200 MG; Start 01/10/19 at 09:00 Digoxin (Digoxin) 0.125 mg DAILY@1300 PO Last administered on 02/24/19 14:13; Admin Dose 0.125 MG; Start 01/10/19 at 13:00 Gabapentin (Neurontin) 600 mg DAILY PO Last administered on 02/24/19at 09:32; Admin Dose 600 MG; Start 01/10/19 at 09:00 Empaglifozin (Jardiance) 25 mg DAILY PO Last administered on 02/24/19 09:31; Admin Dose 25 MG; Start 01/10/19 at 09:00 Linagliptin (Tradjenta) 5 mg DAILY PO Last administered on 02/24/19at 09:32; Admin Dose 5 MG; Start 01/10/19 at 09:00 Diagnostic Test (Pha) (Accu-Chek) 1 ea 02 XX Last administered on 02/17/19at 02:35; Admin Dose 1 EA; Start 01/10/19 at 02:00 Miscellaneous Information 1 ea NOTE XX ; Start 01/09/19 at 21:30 Glucose (Glutose) 15 gm Q15M PRN PO DECREASED GLUCOSE; Start 01/09/19 at 21:30 Glucose (Glutose) 22.5 gm Q15M PRN PO DECREASED GLUCOSE; Start 01/09/19 at 21:30 Dextrose (D50w Syringe) 50 ml Q15M PRN IV DECREASED GLUCOSE; Start 01/09/19 at 21:30 Glucagon (Glucagen) 1 mg Q15M PRN IM DECREASED GLUCOSE; Start 01/09/19 at 21:30 Glucose (Glutose) 15 gm Q15M PRN BUCCAL DECREASED GLUCOSE; Start 01/09/19 at 21:30 Insulin Glargine (Lantus) 18 units QHS SC Last administered on 02/23/19 21:04; Admin Dose 18 UNITS; Start 01/09/19 at 22:30 Carvedilol (Coreg) 3.125 mg BID PO Last administered on 02/24/19 09:31; Admin Dose 3.125 MG; Start 01/10/19 at 21:00 Vancomycin HCl (Vanco Iv Per Pharmacy) VANCOMYCIN PER PHARMACY PER PROTOCOL XX ; Start 01/11/19 at 02:30 Lisinopril (Zestril) 2.5 mg DAILY PO Last administered on 02/24/19 09:32; Admin Dose 2.5 MG; Start 01/13/19 at 09:00 Senna (Senokot) 1 tab DAILY PRN PO CONSTIPATION Last administered on 02/15/19 20:20; Admin Dose 1 TAB; Start 01/12/19 at 18:30 Neomycin/ Polymyxin/ Bacitracin (Neosporin Topical Oint) 1 applic DAILY TOP L ast administered on 02/23/19 08:27; Admin Dose 1 APPLIC; Start 01/12/19 at 18:30 Cyanocobalamin (Vitamin B12 Inj) 1,000 mcg DAILY IM Last administered on 02/24/19 09:30; Admin Dose 1,000 MCG; Start 01/16/19 at 09:00 Insulin Aspart (Novolog Insulin Pen) NOVOLOG *MODERATE* ALGORITHM WITH MEALS BEDTIME SC Last administered on 02/24/19 08:27; Admin Dose 2 UNIT; Start 01/26/19 at 21:00 IV Flush (NS 10 ml) 10 ml PRN PRN IV IV PROTOCOL Last administered on 02/21/19 08:27; Admin Dose 10 ML; Start 01/29/19 at 17:00 Docusate Sodium (Colace) 100 mg BID PO Last administered on 02/24/19 09:30; Admin Dose 100 MG; Start 02/07/19 at 21:00 Magnesium Hydroxide (Milk Of Mag) 30 ml BID PRN PO CONSTIPATION Last administered on 02/22/19 20:29; Admin Dose 30 ML; Start 02/08/19 at 14:00 Sodium Hypochlorite (Dakins Diluted ()) 1 applic DAILY TP Last administered on 02/24/19at 14:14; Admin Dose 1 APPLIC; Start 02/09/19 at 13:00 Acetaminophen (Tylenol Tab) 650 mg Q4H PRN PO MILD PAIN(1-3)OR ELEVATED TEMP; Start 02/10/19 at 22:00 Ondansetron HCl (Zofran Inj) 4 mg Q6H PRN IV NAUSEA AND/OR VOMITING Last administered on 02/22/19at 08:27; Admin Dose 4 MG; Start 02/10/19 at 22:00 Furosemide (Lasix) 20 mg DAILY PO Last administered on 02/24/19 09:32; Admin Dose 20 MG; Start 02/13/19 at 09:00 Cyclobenzaprine HCl (Flexeril) 5 mg BID PO Last administered on 02/24/19 09:31; Admin Dose 5 MG; Start 02/13/19 at 09:00 Apixaban (Eliquis) 2.5 mg BID PO Last administered on 02/24/19at 09:31; Admin Dose 2.5 MG; Start 02/14/19 at 12:00 Miscellaneous Information [facility]) This patient metz... PRN PRN XX WOUND CARE; Start 02/15/19 at 04:30 Alteplase, Recombinant (Cathflo (Activase)) 2 mg MAY REPEAT X1 PRN CATHETER IF CATHETER REMAINS OCCULUDED; Start 02/15/19 at 21:00 Alteplase, Recombinant (Cathflo (Activase)) 2 mg MAY REPEAT X1 PRN CATHETER IF CATHETER REMAINS OCCULUDED; Start 02/16/19 at 04:00 Vancomycin HCl 1.5 gm/Sodium Chloride 250 ml @ 83.333 mls/ hr Q12H IVPB Last administered on 02/24/19at 05:01; Admin Dose 83.333 MLS/HR; Start 02/19/19 at 05:00 Acetaminophen/ Hydrocodone Bitart ([place] (5/325)) 1 tab Q4H PRN PO MODERATE PAIN LEVEL 4-6 Last administered on 02/24/19at 03:22; Admin Dose 1 TAB; Start 02/20/19 at 14:00 Al Hydrox/Mg Hydrox/Simethicone (Mag-Al Plus) 30 ml Q6H PRN PO GASTROINTESTINAL UPSET Last administered on 02/22/19 15:37; Admin Dose 30 ML; Start 02/21/19 at 23:00 Pantoprazole (Protonix Tab) 40 mg DAILY@06 PO Last administered on 02/24/19 05:01; Admin Dose 40 MG; Start 02/22/19 at 15:30 Hydromorphone HCl (Dilaudid) 3 mg Q3H PRN IV SEVERE PAIN LEVEL 7-10 Last administered on 02/24/19at 15:47; Admin Dose 3 MG; Start 02/22/19 at 18:00 Ceftazidime/ Dextrose 50 ml @ 100 mls/hr Q8 IVPB Last administered on 02/24/19 14:12; Admin Dose 100 MLS/HR; Start 02/23/19 at 22:00 Metronidazole (Flagyl) 500 mg Q8 PO Last administered on 02/24/19 14:12; Admin Dose 500 MG; Start 02/23/19 at 22:00 Miscellaneous Information (*Rx Drug Level Order Reminder*) VANCO TR AT 1600 1600 ONCE XX ; Start 02/25/19 at 16:00; Stop 02/25/19 at 16:01 RAMESH SOLORZANO Feb 24, 2019 16:45
--- NOTE | 2019-02-24 17:54 | CONS ---
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 CT on 01/10/2019 did not show evidence of OM. ESR 26 on 01/09/2019 and 37 on 01/12/2019; superficial wound culture grew pseudomonas, E. Coli, enterococcus (isolated from broth only), scant proteus, and scant CoNS. ESR 23 and repeat culture on 02/06/2019 grew pseudomonas - s/p debridement of R calcaneal ulceration 01/13/2019; intraop culture grew E. Coli, Proteus, and Enterococcus - chronic wound of R heel, in the past the wound culture grew E. coli - h/o OM of R foot, h/o 6 weeks of IV vancomycin and ceftriaxone in 2018. 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 Although his strain of pseudomonas is still sensitive to cefepime, I recommended cefepime be replaced with ceftazidime because Pt continues to grow pseudomonas in his wound culture - continue IV vancomycin (01/11/2019-) - continue PO metronidazole (01/16/2019-) - given severity of infection noted on debridement, we recommend additional 4 weeks of antibiotics to try and salvage his foot after the surgery (02/13/2019-) through 03/13/2019 - please check weekly CBC BMP and ESR while Pt's on IV antibiotics - Pt has established care with ID specialist Dr. Scales the management d/w Pt Consultation Date/Type/Reason Admit Date/Time January 09, 2019 at 18:17 Initial Consult Date 01/10/19 Type of Consult ID Requesting Provider: KRISTIN PRYOR MD Date/Time of Note DATE: 02/24/19 TIME: 17:50 24 HR Interval Summary Constitutional: improved Detailed Summary Eyes: no complaints ENT: no complaints Respiratory: no complaints Cardiovascular: no complaints Gastrointestinal: no complaints Genitourinary: no complaints Musculoskeletal: other (feels better about the R heel wound, less pain, thinks the tissue looks more healthy) Skin: no complaints Neurologic: no complaints Exam/Review of Systems Exam Vitals Vital Signs Date Temp Pulse Resp B/P (MAP) Pulse Ox O2 O2 Flow FiO2 Time Delivery Rate 02/24/19 98.0 76 16 105/68 100 14:44 (80) 02/23/19 Room Air 14:39 Intake and Output 02/23/19 02/23/19 02/24/19 1515:00 23:00 07:00 IntakeIntake Total 986.7 ml 501 ml OutputOutput Total 1850 ml 1100 ml 1200 ml BalanceBalance -863.3 ml -599 ml -1200 ml Constitutional: alert, oriented, well developed Psych: no complaints, nl mood/affect Head: normocephalic, atraumatic Eyes: nl conjunctiva, nl lids, nl sclera ENMT: nl external ears & nose, nl nasal mucosa & septum, mucosa pink and moist Neck: supple Respiratory: normal air movement Cardiovascular: No edema Gastrointestinal: soft; No distended Musculoskeletal: other (well healed scar with teressa of RLE, R heel wound is well vascularized with teressa (examined in the picture)) Extremities: normal pulses; No edema 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: SITE INTERPRETER II-XII intact, nl mental status, nl speech Skin: nl turgor, other (warm to touch); No rash or lesions Results Result Diagram: 02/24/19 0549 02/24/19 0549 Results 24hrs Laboratory Tests Test 02/23/19 20:59 02/24/19 05:49 02/24/19 08:25 02/24/19 12:24 Bedside Glucose 161 165 126 White Blood Count 9.3 Red Blood Count 3.93 L Hemoglobin 11.0 L Hematocrit 35.1 L Mean Corpuscular 89.3 Volume Mean Corpuscular 28.0 L Hemoglobin Mean Corpuscular 31.3 L Hemoglobin Concent Red Cell 15.1 H Distribution Width Platelet Count 365 Mean Platelet Volume 10.4 Immature 0.300 Granulocytes % Neutrophils % 58.7 Lymphocytes % 24.4 Monocytes % 11.0 Eosinophils % 5.2 Basophils % 0.4 Nucleated Red Blood 0.0 Cells % Immature 0.030 Granulocytes # Neutrophils # 5.5 Lymphocytes # 2.3 Monocytes # 1.0 H Eosinophils # 0.5 Basophils # 0.0 Nucleated Red Blood 0.0 Cells # Sodium Level 136 Potassium Level 4.2 Chloride Level 98 Carbon Dioxide Level 29 Anion Gap 9 Blood Urea Nitrogen 16 Creatinine 0.59 L Est Glomerular > 60 Filtrat Rate mL/min Glucose Level 100 Calcium Level 8.8 Test 02/24/19 17:18 Bedside Glucose 114 Medications Medication Current Medications Amiodarone HCl (Cordarone) 200 mg DAILY PO Last administered on 02/24/19 09:30; Admin Dose 200 MG; Start 01/10/19 at 09:00 Digoxin (Digoxin) 0.125 mg DAILY@1300 PO Last administered on 02/24/19at 14:13; Admin Dose 0.125 MG; Start 01/10/19 at 13:00 Gabapentin (Neurontin) 600 mg DAILY PO Last administered on 02/24/19 09:32; Admin Dose 600 MG; Start 01/10/19 at 09:00 Empaglifozin (Jardiance) 25 mg DAILY PO Last administered on 02/24/19 09:31; Admin Dose 25 MG; Start 01/10/19 at 09:00 Linagliptin (Tradjenta) 5 mg DAILY PO Last administered on 02/24/19 09:32; Admin Dose 5 MG; Start 01/10/19 at 09:00 Diagnostic Test (Pha) (Accu-Chek) 1 ea 02 XX Last administered on 02/17/19at 0 2:35; Admin Dose 1 EA; Start 01/10/19 at 02:00 Miscellaneous Information 1 ea NOTE XX ; Start 01/09/19 at 21:30 Glucose (Glutose) 15 gm Q15M PRN PO DECREASED GLUCOSE; Start 01/09/19 at 21:30 Glucose (Glutose) 22.5 gm Q15M PRN PO DECREASED GLUCOSE; Start 01/09/19 at 21:30 Dextrose (D50w Syringe) 50 ml Q15M PRN IV DECREASED GLUCOSE; Start 01/09/19 at 21:30 Glucagon (Glucagen) 1 mg Q15M PRN IM DECREASED GLUCOSE; Start 01/09/19 at 21:30 Glucose (Glutose) 15 gm Q15M PRN BUCCAL DECREASED GLUCOSE; Start 01/09/19 at 21:30 Insulin Glargine (Lantus) 18 units QHS SC Last administered on 02/23/19 21:04; Admin Dose 18 UNITS; Start 01/09/19 at 22:30 Carvedilol (Coreg) 3.125 mg BID PO Last administered on 02/24/19 09:31; Admin Dose 3.125 MG; Start 01/10/19 at 21:00 Vancomycin HCl (Vanco Iv Per Pharmacy) VANCOMYCIN PER PHARMACY PER PROTOCOL XX ; Start 01/11/19 at 02:30 Lisinopril (Zestril) 2.5 mg DAILY PO Last administered on 02/24/19 09:32; Admin Dose 2.5 MG; Start 01/13/19 at 09:00 Senna (Senokot) 1 tab DAILY PRN PO CONSTIPATION Last administered on 02/15/19 20:20; Admin Dose 1 TAB; Start 01/12/19 at 18:30 Neomycin/ Polymyxin/ Bacitracin (Neosporin Topical Oint) 1 applic DAILY TOP Last administered on 02/23/19 08:27; Admin Dose 1 APPLIC; Start 01/12/19 at 18:30 Cyanocobalamin (Vitamin B12 Inj) 1,000 mcg DAILY IM Last administered on 02/24/19 09:30; Admin Dose 1,000 MCG; Start 01/16/19 at 09:00 Insulin Aspart (Novolog Insulin Pen) NOVOLOG *MODERATE* ALGORITHM WITH MEALS BEDTIME SC Last administered on 02/24/19 08:27; Admin Dose 2 UNIT; Start 01/26/19 at 21:00 IV Flush (NS 10 ml) 10 ml PRN PRN IV IV PROTOCOL Last administered on 02/21/19 08:27; Admin Dose 10 ML; Start 01/29/19 at 17:00 Docusate Sodium (Colace) 100 mg BID PO Last administered on 02/24/19 09:30; Admin Dose 100 MG; Start 02/07/19 at 21:00 Magnesium Hydroxide (Milk Of Mag) 30 ml BID PRN PO CONSTIPATION Last adm inistered on 02/22/19 20:29; Admin Dose 30 ML; Start 02/08/19 at 14:00 Sodium Hypochlorite (Dakins Diluted (40)) 1 applic DAILY TP Last administered on 02/24/19 14:14; Admin Dose 1 APPLIC; Start 02/09/19 at 13:00 Acetaminophen (Tylenol Tab) 650 mg Q4H PRN PO MILD PAIN(1-3)OR ELEVATED TEMP; Start 02/10/19 at 22:00 Ondansetron HCl (Zofran Inj) 4 mg Q6H PRN IV NAUSEA AND/OR VOMITING Last administered on 02/22/19 08:27; Admin Dose 4 MG; Start 02/10/19 at 22:00 Furosemide (Lasix) 20 mg DAILY PO Last administered on 02/24/19 09:32; Admin Dose 20 MG; Start 02/13/19 at 09:00 Cyclobenzaprine HCl (Flexeril) 5 mg BID PO Last administered on 02/24/19 09:31; Admin Dose 5 MG; Start 02/13/19 at 09:00 Apixaban (Eliquis) 2.5 mg BID PO Last administered on 02/24/19 09:31; Admin Dose 2.5 MG; Start 02/14/19 at 12:00 Miscellaneous Information (Pending [facility] Order For Wound Care) This patient metz... PRN PRN XX WOUND CARE; Start 02/15/19 at 04:30 Alteplase, Recombinant (Cathflo (Activase)) 2 mg MAY REPEAT X1 PRN CATHETER IF CATHETER REMAINS OCCULUDED; Start 02/15/19 at 21:00 Alteplase, Recombinant (Cathflo (Activase)) 2 mg MAY REPEAT X1 PRN CATHETER IF CATHETER REMAINS OCCULUDED; Start 02/16/19 at 04:00 Vancomycin HCl 1.5 gm/Sodium Chloride 250 ml @ 83.333 mls/ hr Q12H IVPB Last administered on 02/24/19 17:15; Admin Dose 83.333 MLS/HR; Start 02/19/19 at 05:00 Acetaminophen/ Hydrocodone Bitart ([place] (5/325)) 1 tab Q4H PRN PO MODERATE PAIN LEVEL 4-6 Last administered on 02/24/19at 17:09; Admin Dose 1 TAB; Start 02/20/19 at 14:00 Al Hydrox/Mg Hydrox/Simethicone (Mag-Al Plus) 30 ml Q6H PRN PO GASTROINTESTINAL UPSET Last administered on 02/22/19at 15:37; Admin Dose 30 ML; Start 02/21/19 at 23:00 Pantoprazole (Protonix Tab) 40 mg DAILY@06 PO Last administered on 02/24/19at 05:01; Admin Dose 40 MG; Start 02/22/19 at 15:30 Ceftazidime/ Dextrose 50 ml @ 100 mls/hr Q8 IVPB Last administered on 02/24/19at 14:12; Admin Dose 100 MLS/HR; Start 02/23/19 at 22:00 Metronidazole (Flagyl) 500 mg Q8 PO Last administered on 02/24/19at 14:12; Admin Dose 500 MG; Start 02/23/19 at 22:00 Miscellaneous Information (*Rx Drug Level Order Reminder*) VANCO TR AT 1600 1600 ONCE XX ; Start 02/25/19 at 16:00; Stop 02/25/19 at 16:01 Hydromorphone HCl (Dilaudid) 2 mg Q4 PRN IV SEVERE PAIN LEVEL 7-10; Start 02/24/19 at 17:00 CARMITA WATTS M.D. Feb 24, 2019 17:54
[2019-02-24 20:00] VITALS: BP 109/68; PULSE 88; RESP 18
[2019-02-24] MEDS: INSULIN GLARGINE [LANTus] (100 UNITS/ML) SYG SC SCH (21:06)
[2019-02-24] MEDS: ASCORBIC ACID 500 MG TAB PO SCH (21:07)
[2019-02-25 02:00] VITALS: BP 107/70; PULSE 86; RESP 19
[2019-02-25] MEDS: ACCU-CHEK XX SCH ×2 (02:00→20:53)
[2019-02-25] MEDS: PANTOPRAZOLE (EC) 40 MG TAB PO SCH (05:06)
[2019-02-25] MEDS: metroNIDAZOLE 500 MG TAB PO SCH ×3 (05:06→20:33)
[2019-02-25] MEDS: CEFTAZIDIME 2GM/50 ML (PMX) 50 ML IVPB SCH ×3 (05:06→20:35)
[2019-02-25] MEDS: VANCOMYCIN HCL 1.5 GM in SOD CHLORIDE 0.9% 250 ML IVPB SCH ×2 (05:44→17:32)
[2019-02-25] MEDS: HYDROmorphONE 2 MG/ML SYG IV PRN ×5 (06:29→22:49)
[2019-02-25 07:46] VITALS: BP 116/72; PULSE 87; RESP 18
[2019-02-25] MEDS: INSULIN ASPART [NOVOLOG] 3 ML PEN SC SCH ×4 (08:00→20:39)
[2019-02-25] MEDS: CYANOCOBALAMIN 1000 MCG INJ IM SCH (08:13)
[2019-02-25] MEDS: DOCUSATE SODIUM 100 MG CAP PO SCH ×2 (08:14→20:33)
[2019-02-25] MEDS: MULTIVITAMINS THERAPEUTIC TAB PO SCH (08:15)
[2019-02-25] MEDS: EMPAGLIFLOZIN 10 MG TABLET PO SCH (08:15)
[2019-02-25] MEDS: ASCORBIC ACID 500 MG TAB PO SCH ×2 (08:15→20:33)
[2019-02-25] MEDS: AMIODARONE 200 MG TAB PO SCH (08:16)
[2019-02-25] MEDS: APIXABAN 5 MG TABLET PO SCH ×2 (08:17→20:34)
[2019-02-25] MEDS: FUROSEMIDE 20 MG TAB PO SCH (08:17)
[2019-02-25] MEDS: LINAGLIPTIN 5 MG TABLET PO SCH (08:17)
[2019-02-25] MEDS: ZINC SULFATE 220 MG CAP PO SCH (08:22)
[2019-02-25] MEDS: GABAPENTIN 300 MG CAP PO SCH (08:22)
[2019-02-25] MEDS: HYDROCODONE/APAP (5/325) TAB PO PRN ×4 (08:23→20:50)
[2019-02-25] MEDS: CYCLOBENZAPRINE 10 MG TAB PO SCH ×2 (08:23→20:34)
[2019-02-25] MEDS: LISINOPRIL 5 MG TAB PO SCH (08:24)
[2019-02-25] MEDS: NEOMYC/POLYMYX/BACIT 30 GM OINT TOP SCH (08:26)
[2019-02-25] MEDS: DAKINS 0.0125%(1/40) 473 ML SOLUTION TP SCH (08:27)
[2019-02-25] MEDS: DIGOXIN 0.125 MG TAB PO SCH (13:06)
--- NOTE | 2019-02-25 13:15 | CONS ---
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 CT on 01/10/2019 did not show evidence of OM. ESR 26 on 01/09/2019 and 37 on 01/12/2019; superficial wound culture grew pseudomonas, E. Coli, enterococcus (isolated from broth only), scant proteus, and scant CoNS. ESR 23 and repeat culture on 02/06/2019 grew pseudomonas - s/p debridement of R calcaneal ulceration 01/13/2019; intraop culture grew E. Coli, Proteus, and Enterococcus - chronic wound of R heel, in the past the wound culture grew E. coli - h/o OM of R foot, h/o 6 weeks of IV vancomycin and ceftriaxone in 2018. 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 Although his strain of pseudomonas is still sensitive to cefepime, I recommended cefepime be replaced with ceftazidime because Pt continues to grow pseudomonas in his wound culture - continue IV vancomycin (01/11/2019-) - continue PO metronidazole (01/16/2019-) - given severity of infection noted on debridement, we recommend additional 4 weeks of antibiotics to try and salvage his foot after the surgery (02/13/2019-) through 03/13/2019 - please check weekly CBC BMP and ESR while Pt's on IV antibiotics - Pt has established care with ID specialist Dr. Scales the management d/w Pt, his RN Consultation Date/Type/Reason Admit Date/Time January 09, 2019 at 18:17 Initial Consult Date 01/10/19 Type of Consult ID Requesting Provider: KRISTIN PRYOR MD Date/Time of Note DATE: 02/25/19 TIME: 13:12 24 HR Interval Summary Constitutional: no complaints Detailed Summary Eyes: no complaints ENT: no complaints Respiratory: no complaints Cardiovascular: no complaints Gastrointestinal: no complaints Genitourinary: no complaints Musculoskeletal: restricted range of motion, other (Pt inquires if he could bear weight on his R heel or not) Skin: no complaints, other (Pt's glad that it feels warm after the bypass surgery) Neurologic: no complaints Exam/Review of Systems Exam Vitals Vital Signs Date Temp Pulse Resp B/P (MAP) Pulse Ox O2 O2 Flow FiO2 Time Delivery Rate 02/25/19 98.2 87 18 116/72 100 07:46 (87) 02/23/19 Room Air 14:39 Intake and Output 02/24/19 02/24/19 02/25/19 1515:00 23:00 07:00 IntakeIntake Total 300 ml 2500 ml 1050 ml OutputOutput Total 1850 ml 2400 ml BalanceBalance 300 ml 650 ml -1350 ml Constitutional: alert, oriented, well developed Psych: no complaints, nl mood/affect Head: normocephalic, atraumatic Eyes: nl conjunctiva, EOMI, nl lids, nl sclera ENMT: nl external ears & nose, nl nasal mucosa & septum, mucosa pink and moist Neck: supple Respiratory: normal air movement Cardiovascular: No edema Gastrointestinal: soft; No distended Musculoskeletal: other (the surgical site of RLE has teressa and is dressed, th e R heel is connected to wound VAC and is dressed) Extremities: No edema Skin: other (R foot and TLE feel warm to touch); No rash or lesions Results Result Diagram: 02/24/19 0549 02/24/19 0549 Results 24hrs Laboratory Tests Test 02/24/19 17:18 02/24/19 21:01 02/25/19 07:45 02/25/19 11:51 Bedside Glucose 114 130 131 115 Medications Medication Current Medications Amiodarone HCl (Cordarone) 200 mg DAILY PO Last administered on 02/25/19at 08:16; Admin Dose 200 MG; Start 5/4/19 at 09:00 Digoxin (Digoxin) 0.125 mg DAILY@1300 PO Last administered on 02/25/19at 13:06; Admin Dose 0.125 MG; Start 01/10/19 at 13:00 Gabapentin (Neurontin) 600 mg DAILY PO Last administered on 02/25/19 08:22; Admin Dose 600 MG; Start 01/10/19 at 09:00 Empaglifozin (Jardiance) 25 mg DAILY PO Last administered on 02/25/19at 08:15; Admin Dose 25 MG; Start 01/10/19 at 09:00 Linagliptin (Tradjenta) 5 mg DAILY PO Last administered on 02/25/19 08:17; Adm in Dose 5 MG; Start 01/10/19 at 09:00 Diagnostic Test (Pha) (Accu-Chek) 1 ea 02 XX Last administered on 02/17/19at 02:35; Admin Dose 1 EA; Start 01/10/19 at 02:00 Miscellaneous Information 1 ea NOTE XX ; Start 01/09/19 at 21:30 Glucose (Glutose) 15 gm Q15M PRN PO DECREASED GLUCOSE; Start 01/09/19 at 21:30 Glucose (Glutose) 22.5 gm Q15M PRN PO DECREASED GLUCOSE; Start 01/09/19 at 21:30 Dextrose (D50w Syringe) 50 ml Q15M PRN IV DECREASED GLUCOSE; Start 01/09/19 at 21:30 Glucagon (Glucagen) 1 mg Q15M PRN IM DECREASED GLUCOSE; Start 01/09/19 at 21:30 Glucose (Glutose) 15 gm Q15M PRN BUCCAL DECREASED GLUCOSE; Start 01/09/19 at 21:30 Insulin Glargine (Lantus) 18 units QHS SC Last administered on 02/24/19at 21:06; Admin Dose 18 UNITS; Start 01/09/19 at 22:30 Carvedilol (Coreg) 3.125 mg BID PO Last administered on 02/24/19at 09:31; Admin Dose 3.125 MG; Start 01/10/19 at 21:00 Vancomycin HCl (Vanco Iv Per Pharmacy) VANCOMYCIN PER PHARMACY PER PROTOCOL XX ; Start 01/11/19 at 02:30 Lisinopril (Zestril) 2.5 mg DAILY PO Last administered on 02/25/19 08:24; Admin Dose 2.5 MG; Start 01/13/19 at 09:00 Senna (Senokot) 1 tab DAILY PRN PO CONSTIPATION Last administered on 02/15/19 20:20; Admin Dose 1 TAB; Start 01/12/19 at 18:30 Neomycin/ Polymyxin/ Bacitracin (Neosporin Topical Oint) 1 applic DAILY TOP Last administered on 02/25/19 08:26; Admin Dose 1 APPLIC; Start 01/12/19 at 18:30 Cyanocobalamin (Vitamin B12 Inj) 1,000 mcg DAILY IM Last administered on 02/25/19 08:13; Admin Dose 1,000 MCG; Start 01/16/19 at 09:00 Insulin Aspart (Novolog Insulin Pen) NOVOLOG *MODERATE* ALGORITHM WITH MEALS B EDTIME SC Last administered on 02/24/19 08:27; Admin Dose 2 UNIT; Start 01/26/19 at 21:00 IV Flush (NS 10 ml) 10 ml PRN PRN IV IV PROTOCOL Last administered on 02/21/19 08:27; Admin Dose 10 ML; Start 01/29/19 at 17:00 Docusate Sodium (Colace) 100 mg BID PO Last administered on 02/25/19 08:14; Admin Dose 100 MG; Start 02/07/19 at 21:00 Magnesium Hydroxide (Milk Of Mag) 30 ml BID PRN PO CONSTIPATION Last administered on 02/22/19 20:29; Admin Dose 30 ML; Start 02/08/19 at 14:00 Sodium Hypochlorite (Dakins Diluted (40)) 1 applic DAILY TP Last administered on 02/24/19 14:14; Admin Dose 1 APPLIC; Start 02/09/19 at 13:00 Acetaminophen (Tylenol Tab) 650 mg Q4H PRN PO MILD PAIN(1-3)OR ELEVATED TEMP; Start 02/10/19 at 22:00 Ondansetron HCl (Zofran Inj) 4 mg Q6H PRN IV NAUSEA AND/OR VOMITING Last administered on 02/22/19 08:27; Admin Dose 4 MG; Start 02/10/19 at 22:00 Furosemide (Lasix) 20 mg DAILY PO Last administered on 02/25/19 08:17; Admin Dose 20 MG; Start 02/13/19 at 09:00 Cyclobenzaprine HCl (Flexeril) 5 mg BID PO Last administered on 02/25/19 08:23; Admin Dose 5 MG; Start 02/13/19 at 09:00 Apixaban (Eliquis) 2.5 mg BID PO Last administered on 02/25/19 08:17; Admin Dose 2.5 MG; Start 02/14/19 at 12:00 Miscellaneous Information (Pending Santyl Order For Wound Care) This patient metz... PRN PRN XX WOUND CARE; Start 02/15/19 at 04:30 Alteplase, Recombinant (Cathflo (Activase)) 2 mg MAY REPEAT X1 PRN CATHETER IF CATHETER REMAINS OCCULUDED; Start 02/15/19 at 21:00 Alteplase, Recombinant (Cathflo (Activase)) 2 mg MAY REPEAT X1 PRN CATHETER IF CATHETER REMAINS OCCULUDED; Start 02/16/19 at 04:00 Vancomycin HCl 1.5 gm/Sodium Chloride 250 ml @ 83.333 mls/ hr Q12H IVPB Last administered on 02/25/19at 05:44; Admin Dose 83.333 MLS/HR; Start 02/19/19 at 05:00 Acetaminophen/ Hydrocodone Bitart ([place] (5/325)) 1 tab Q4H PRN PO MODERATE PAIN LEVEL 4-6 Last administered on 02/25/19at 12:34; Admin Dose 1 TAB; Start 02/20/19 at 14:00 Al Hydrox/Mg Hydrox/Simethicone (Mag-Al Plus) 30 ml Q6H PRN PO GASTROINTESTINAL UPSET Last administered on 02/22/19at 15:37; Admin Dose 30 ML; Start 02/21/19 at 23:00 Pantoprazole (Protonix Tab) 40 mg DAILY@06 PO Last administered on 02/25/19 05:06; Admin Dose 40 MG; Start 02/22/19 at 15:30 Ceftazidime/ Dextrose 50 ml @ 100 mls/hr Q8 IVPB Last administered on 02/25/19 13:04; Admin Dose 100 MLS/HR; Start 02/23/19 at 22:00 Metronidazole (Flagyl) 500 mg Q8 PO Last administered on 02/25/19 13:04; Admin Dose 500 MG; Start 02/23/19 at 22:00 Miscellaneous Information (*Rx Drug Level Order Reminder*) VANCO TR AT 1600 1600 ONCE XX ; Start 02/25/19 at 16:00; Stop 02/25/19 at 16:01 Hydromorphone HCl (Dilaudid) 2 mg Q4 PRN IV SEVERE PAIN LEVEL 7-10 Last administered on 02/25/19at 10:57; Admin Dose 2 MG; Start 02/24/19 at 17:00 Multivitamins Therapeutic (Theragran) 1 tab DAILY PO Last administered on 02/25/19at 08:15; Admin Dose 1 TAB; Start 02/25/19 at 09:00 Ascorbic Acid (Vitamin C) 500 mg BID PO Last administered on 02/25/19at 08:15; Admin Dose 500 MG; Start 02/24/19 at 21:00 Zinc Sulfate (Zinc Sulfate) 220 mg DAILY PO Last administered on 02/25/19at 08:22; Admin Dose 220 MG; Start 02/25/19 at 09:00; Stop 03/10/19 at 09:00 CARMITA WATTS M.D. Feb 25, 2019 13:15
--- NOTE | 2019-02-25 14:19 | CONS ---
Assessment/Plan Assessment/Plan Hospital Course (Demo Recall) #Gastric mass -pt to have EUS and FNA ans an out patient. per Dr Roberts clinically this is co nsistent with GIST tumor -CT A/P does not show evidence of metastatic disease -pt needs surgical resection of the mass -depending on the grade of the GIST tumor and pathologic features patient may benefit from adjuvant imatinib therapy #Non healing right foot ulcer -s/p s/p R POP-DP peripheral bypass and s/p heel debridement -continue IV abx per ID. pt currently on ceftazidime, cefepime, vancomycin, and flagyl # Anemia-normocytic -Hg currently stable > 11 -no more evidence of GI bleed -f/u endoscopy. pt was found with a T3.5 cm mass/filling defect arising along the lesser curvature of the stomach - consistent with GIST tumor #Cardiomyopathy with AICD -continue Eliquis Consultation Date/Type/Reason Admit Date/Time January 09, 2019 at 18:17 Initial Consult Date 01/16/19 Type of Consult oncology Reason for Consultation GIST/Anemia Requesting Provider: KRISTIN PRYOR MD Date/Time of Note DATE: 02/25/19 TIME: 14:16 24 HR Interval Summary Free Text/Dictation p now has infection at surgery site Exam/Review of Systems Exam Vitals Vital Signs Date Temp Pulse Resp B/P (MAP) Pulse Ox O2 O2 Flow FiO2 Time Delivery Rate 02/25/19 98.2 87 18 116/72 100 07:46 (87) 02/23/19 Room Air 14:39 Intake and Output 02/24/19 02/24/19 02/25/19 1515:00 23:00 07:00 IntakeIntake Total 300 ml 2500 ml 1050 ml OutputOutput Total 1850 ml 2400 ml BalanceBalance 300 ml 650 ml -1350 ml Constitutional: alert, oriented Psych: no complaints Head: normocephalic Eyes: nl conjunctiva ENMT: nl external ears & nose Neck: supple Respiratory: clear to auscultation Cardiovascular: regular rate and rhythm Gastrointestinal: soft Musculoskeletal: other (LE with dressing in place) Results Result Diagram: 02/24/19 0549 02/24/19 0549 Results 24hrs Laboratory Tests Test 02/24/19 17:18 02/24/19 21:01 02/25/19 07:45 02/25/19 11:51 Bedside Glucose 114 130 131 115 Medications Medication Current Medications Amiodarone HCl (Cordarone) 200 mg DAILY PO Last administered on 02/25/19 08:16; Admin Dose 200 MG; Start 01/10/19 at 09:00 Digoxin (Digoxin) 0.125 mg DAILY@1300 PO Last administered on 02/25/19at 13:06; Admin Dose 0.125 MG; Start 01/10/19 at 13:00 Gabapentin (Neurontin) 600 mg DAILY PO Last administered on 02/25/19 08:22; Admin Dose 600 MG; Start 01/10/19 at 09:00 Empaglifozin (Jardiance) 25 mg DAILY PO Last administered on 02/25/19 08:15; Admin Dose 25 MG; Start 01/10/19 at 09:00 Linagliptin (Tradjenta) 5 mg DAILY PO Last administered on 02/25/19 08:17; Admin Dose 5 MG; Start 01/10/19 at 09:00 Diagnostic Test (Pha) (Accu-Chek) 1 ea 02 XX Last administered on 02/17/19at 02:35; Admin Dose 1 EA; Start 01/10/19 at 02:00 Miscellaneous Information 1 ea NOTE XX ; Start 01/09/19 at 21:30 Glucose (Glutose) 15 gm Q15M PRN PO DECREASED GLUCOSE; Start 01/09/19 at 21:30 Glucose (Glutose) 22.5 gm Q15M PRN PO DECREASED GLUCOSE; Start 01/09/19 at 21:30 Dextrose (D50w Syringe) 50 ml Q15M PRN IV DECREASED GLUCOSE; Start 01/09/19 at 21:30 Glucagon (Glucagen) 1 mg Q15M PRN IM DECREASED GLUCOSE; Start 01/09/19 at 21:30 Glucose (Glutose) 15 gm Q15M PRN BUCCAL DECREASED GLUCOSE; Start 01/09/19 at 21:30 Insulin Glargine (Lantus) 18 units QHS SC Last administered on 02/24/19at 21:06; Admin Dose 18 UNITS; Start 01/09/19 at 22:30 Carvedilol (Coreg) 3.125 mg BID PO Last administered on 02/24/19at 09:31; Admin Dose 3.125 MG; Start 01/10/19 at 21:00 Vancomycin HCl (Vanco Iv Per Pharmacy) VANCOMYCIN PER PHARMACY PER PROTOCOL XX ; Start 01/11/19 at 02:30 Lisinopril (Zestril) 2.5 mg DAILY PO Last administered on 02/25/19 08:24; Admin Dose 2.5 MG; Start 01/13/19 at 09:00 Senna (Senokot) 1 tab DAILY PRN PO CONSTIPATION Last administered on 02/15/19 20:20; Admin Dose 1 TAB; Start 01/12/19 at 18:30 Neomycin/ Polymyxin/ Bacitracin (Neosporin Topical Oint) 1 applic DAILY TOP Last administered on 02/25/19 08:26; Admin Dose 1 APPLIC; Start 01/12/19 at 18:30 Cyanocobalamin (Vitamin B12 Inj) 1,000 mcg DAILY IM Last administered on 02/25/19 08:13; Admin Dose 1,000 MCG; Start 01/16/19 at 09:00 Insulin Aspart (Novolog Insulin Pen) NOVOLOG *MODERATE* ALGORITHM WITH MEALS BEDTIME SC Last administered on 02/24/19 08:27; Admin Dose 2 UNIT; Start 01/26/19 at 21:00 IV Flush (NS 10 ml) 10 ml PRN PRN IV IV PROTOCOL Last administered on 02/21/19 08:27; Admin Dose 10 ML; Start 01/29/19 at 17:00 Docusate Sodium (Colace) 100 mg BID PO Last administered on 02/25/19 08:14; Admin Dose 100 MG; Start 02/07/19 at 21:00 Magnesium Hydroxide (Milk Of Mag) 30 ml BID PRN PO CONSTIPATION Last administer ed on 02/22/19 20:29; Admin Dose 30 ML; Start 02/08/19 at 14:00 Sodium Hypochlorite (Dakins Diluted (/40)) 1 applic DAILY TP Last administered on 02/24/19 14:14; Admin Dose 1 APPLIC; Start 02/09/19 at 13:00 Acetaminophen (Tylenol Tab) 650 mg Q4H PRN PO MILD PAIN(1-3)OR ELEVATED TEMP; Start 02/10/19 at 22:00 Ondansetron HCl (Zofran Inj) 4 mg Q6H PRN IV NAUSEA AND/OR VOMITING Last administered on 02/22/19 08:27; Admin Dose 4 MG; Start 02/10/19 at 22:00 Furosemide (Lasix) 20 mg DAILY PO Last administered on 02/25/19 08:17; Admin Dose 20 MG; Start 02/13/19 at 09:00 Cyclobenzaprine HCl (Flexeril) 5 mg BID PO Last administered on 02/25/19 08:23; Admin Dose 5 MG; Start 02/13/19 at 09:00 Apixaban (Eliquis) 2.5 mg BID PO Last administered on 02/25/19 08:17; Admin Dose 2.5 MG; Start 02/14/19 at 12:00 Miscellaneous Information (Pending [facility] Order For Wound Care) This patient metz... PRN PRN XX WOUND CARE; Start 02/15/19 at 04:30 Alteplase, Recombinant (Cathflo (Activase)) 2 mg MAY REPEAT X1 PRN CATHETER IF CATHETER REMAINS OCCULUDED; Start 02/15/19 at 21:00 Alteplase, Recombinant (Cathflo (Activase)) 2 mg MAY REPEAT X1 PRN CATHETER IF CATHETER REMAINS OCCULUDED; Start 02/16/19 at 04:00 Vancomycin HCl 1.5 gm/Sodium Chloride 250 ml @ 83.333 mls/ hr Q12H IVPB Last administered on 02/25/19 05:44; Admin Dose 83.333 MLS/HR; Start 02/19/19 at 05:00 Acetaminophen/ Hydrocodone Bitart ([place] (5/325)) 1 tab Q4H PRN PO MODERATE PAIN LEVEL 4-6 Last administered on 02/25/19at 12:34; Admin Dose 1 TAB; Start 02/20/19 at 14:00 Al Hydrox/Mg Hydrox/Simethicone (Mag-Al Plus) 30 ml Q6H PRN PO GASTROINTESTINAL UPSET Last administered on 02/22/19 15:37; Admin Dose 30 ML; Start 02/21/19 at 23:00 Pantoprazole (Protonix Tab) 40 mg DAILY@06 PO Last administered on 02/25/19 05:06; Admin Dose 40 MG; Start 02/22/19 at 15:30 Ceftazidime/ Dextrose 50 ml @ 100 mls/hr Q8 IVPB Last administered on 13:04; Admin Dose 100 MLS/HR; Start 02/23/19 at 22:00 Metronidazole (Flagyl) 500 mg Q8 PO Last administered on 02/25/19 13:04; Admin Dose 500 MG; Start 02/23/19 at 22:00 Miscellaneous Information (*Rx Drug Level Order Reminder*) VANCO TR AT 1600 1600 ONCE XX ; Start 02/25/19 at 16:00; Stop 02/25/19 at 16:01 Hydromorphone HCl (Dilaudid) 2 mg Q4 PRN IV SEVERE PAIN LEVEL 7-10 Last administered on 02/25/19at 10:57; Admin Dose 2 MG; Start 02/24/19 at 17:00 Multivitamins Therapeutic (Theragran) 1 tab DAILY PO Last administered on 02/25/19 08:15; Admin Dose 1 TAB; Start 02/25/19 at 09:00 Ascorbic Acid (Vitamin C) 500 mg BID PO Last administered on 02/25/19 08:15; Admin Dose 500 MG; Start 02/24/19 at 21:00 Zinc Sulfate (Zinc Sulfate) 220 mg DAILY PO Last administered on 02/25/19 08:22; Admin Dose 220 MG; Start 02/25/19 at 09:00; Stop 03/10/19 at 09:00 TJ QUINTERO M.D. Feb 25, 2019 14:19
--- NOTE | 2019-02-25 14:20 | CONS ---
Assessment/Plan Assessment/Plan Hospital Course (Demo Recall) IMP: 1.Pre-op for peripheral bypass surgery. Lexiscan with no ischemia/+scar EF 28%. Echo EF 25%. OK to proceed to surgery at moderate CV risk. Now POD#3 s/p R POP- DP peripheral bypass. Now s/p heel debridement today 2.Cardiomyopathy with low EF-severely depressed by echo this admit 3.Hoth-borderline today 4.HL 5.Non-healing LE ulcer 6.PAD-severe s/p prior FIELD REPRESENTATIVE/HEALTH EDUCATION. Now POD#1 s/p POP to DP r side 7.DM 8. 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 Recc: -On med-surg -Continue digoxin -Continue coreg and zestril for treatment of cardiomyopathy -Continue amiodarone -Continue abx's and f/u cx data -local wound care -Contine lasix po daily and follow volume status closely -pain control -Continue eliquis -s/p debridement of ulcer/continue local wound care Consultation Date/Type/Reason Admit Date/Time January 09, 2019 at 18:17 Initial Consult Date 01/10/19 Type of Consult Cardiology Reason for Consultation cardiomyopathy Requesting Provider: KIRSTIN PRYOR MD Date/Time of Note DATE: 02/25/19 TIME: 14:19 Exam/Review of Systems Vital Signs Vitals Vital Signs Date Temp Pulse Resp B/P (MAP) Pulse Ox O2 O2 Flow FiO2 Time Delivery Rate 02/25/19 98.2 87 18 116/72 100 07:46 (87) 02/23/19 Room Air 14:39 Intake and Output 02/24/19 02/24/19 02/25/19 1515:00 23:00 07:00 IntakeIntake Total 300 ml 2500 ml 1050 ml OutputOutput Total 1850 ml 2400 ml BalanceBalance 300 ml 650 ml -1350 ml Exam Exam Review of Systems: CONSTITUTIONAL: No fevers, chills. PULMONARY: No sob CARDIOVASCULAR: No chest pain/palpitations GASTROINTESTINAL: No nausea/vomiting. GENITOURINARY: No hematuria/dysuria. MUSCULOSKELETAL: No myagias/arthalgias. PSYCHIATRIC: The patient denies depression. NEUROLOGIC: No weakness Constitutional: alert, oriented Psych: no complaints Head: normocephalic ENMT: mucosa pink and moist Neck: supple, jvd (9 cm water) Respiratory: clear to auscultation Cardiovascular: regular rate and rhythm Gastrointestinal: soft, non-tender Musculoskeletal: muscle weakness (mild generalized) Extremities: other (covered by dressing) 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: other (No focal defiicts) Labs Result Diagram: 02/24/19 0549 02/24/19 0549 Results 24hrs Laboratory Tests Test 02/24/19 17:18 02/24/19 21:01 02/25/19 07:45 02/25/19 11:51 Bedside Glucose 114 130 131 115 Medications Medications Current Medications Amiodarone HCl (Cordarone) 200 mg DAILY PO Last administered on 02/25/19at 08:16; Admin Dose 200 MG; Start 01/10/19 at 09:00 Digoxin (Digoxin) 0.125 mg DAILY@1300 PO Last administered on 02/25/19at 13:06; Admin Dose 0.125 MG; Start 01/10/19 at 13:00 Gabapentin (Neurontin) 600 mg DAILY PO Last administered on 02/25/19at 08:22; Admin Dose 600 MG; Start 01/10/19 at 09:00 Empaglifozin (Jardiance) 25 mg DAILY PO Last administered on 02/25/19at 08:15; Admin Dose 25 MG; Start 01/10/19 at 09:00 Linagliptin (Tradjenta) 5 mg DAILY PO Last administered on 02/25/19at 08:17; Admin Dose 5 MG; Start 01/10/19 at 09:00 Diagnostic Test (Pha) (Accu-Chek) 1 ea 02 XX Last administered on 02/17/19at 02:35; Admin Dose 1 EA; Start 01/10/19 at 02:00 Miscellaneous Information 1 ea NOTE XX ; Start 01/09/19 at 21:30 Glucose (Glutose) 15 gm Q15M PRN PO DECREASED GLUCOSE; Start 01/09/19 at 21:30 Glucose (Glutose) 22.5 gm Q15M PRN PO DECREASED GLUCOSE; Start 01/09/19 at 21:30 Dextrose (D50w Syringe) 50 ml Q15M PRN IV DECREASED GLUCOSE; Start 01/09/19 at 21:30 Glucagon (Glucagen) 1 mg Q15M PRN IM DECREASED GLUCOSE; Start 01/09/19 at 21:30 Glucose (Glutose) 15 gm Q15M PRN BUCCAL DECREASED GLUCOSE; Start 01/09/19 at 21:30 Insulin Glargine (Lantus) 18 units QHS SC Last administered on 02/24/19 21:06; Admin Dose 18 UNITS; Start 01/09/19 at 22:30 Carvedilol (Coreg) 3.125 mg BID PO Last administered on 02/24/19 09:31; Admin Dose 3.125 MG; Start 01/10/19 at 21:00 Vancomycin HCl (Vanco Iv Per Pharmacy) VANCOMYCIN PER PHARMACY PER PROTOCOL XX ; Start 01/11/19 at 02:30 Lisinopril (Zestril) 2.5 mg DAILY PO Last administered on 02/25/19 08:24; Admin Dose 2.5 MG; Start 01/13/19 at 09:00 Senna (Senokot) 1 tab DAILY PRN PO CONSTIPATION Last administered on 02/15/19 20:20; Admin Dose 1 TAB; Start 01/12/19 at 18:30 Neomycin/ Polymyxin/ Bacitracin (Neosporin Topical Oint) 1 applic DAILY TOP Last administered on 02/25/19 08:26; Admin Dose 1 APPLIC; Start 01/12/19 at 18:30 Cyanocobalamin (Vitamin B12 Inj) 1,000 mcg DAILY IM Last administered on 02/25/19 08:13; Admin Dose 1,000 MCG; Start 01/16/19 at 09:00 Insulin Aspart (Novolog Insulin Pen) NOVOLOG *MODERATE* ALGORITHM WITH MEALS BEDTIME SC Last administered on 02/24/19 08:27; Admin Dose 2 UNIT; Start 01/26/19 at 21:00 IV Flush (NS 10 ml) 10 ml PRN PRN IV IV PROTOCOL Last administered on 02/21/19 08:27; Admin Dose 10 ML; Start 01/29/19 at 17:00 Docusate Sodium (Colace) 100 mg BID PO Last administered on 02/25/19 08:14; Admin Dose 100 MG; Start 02/07/19 at 21:00 Magnesium Hydroxide (Milk Of Mag) 30 ml BID PRN PO CONSTIPATION Last administered on 02/22/19 20:29; Admin Dose 30 ML; Start 02/08/19 at 14:00 Sodium Hypochlorite (Dakins Diluted (1/40)) 1 applic DAILY TP Last administered on 02/24/19at 14:14; Admin Dose 1 APPLIC; Start 02/09/19 at 13:00 Acetaminophen (Tylenol Tab) 650 mg Q4H PRN PO MILD PAIN(1-3)OR ELEVATED TEMP; Start 02/10/19 at 22:00 Ondansetron HCl (Zofran Inj) 4 mg Q6H PRN IV NAUSEA AND/OR VOMITING Last administered on 02/22/19at 08:27; Admin Dose 4 MG; Start 02/10/19 at 22:00 Furosemide (Lasix) 20 mg DAILY PO Last administered on 02/25/19at 08:17; Admin Dose 20 MG; Start 02/13/19 at 09:00 Cyclobenzaprine HCl (Flexeril) 5 mg BID PO Last administered on 02/25/19at 08:23; Admin Dose 5 MG; Start 02/13/19 at 09:00 Apixaban (Eliquis) 2.5 mg BID PO Last administered on 02/25/19 08:17; Admin Dose 2.5 MG; Start 02/14/19 at 12:00 Miscellaneous Information (Pending Santyl Order For Wound Care) This patient metz... PRN PRN XX WOUND CARE; Start 02/15/19 at 04:30 Alteplase, Recombinant (Cathflo (Activase)) 2 mg MAY REPEAT X1 PRN CATHETER IF CATHETER REMAINS OCCULUDED; Start 02/15/19 at 21:00 Alteplase, Recombinant (Cathflo (Activase)) 2 mg MAY REPEAT X1 PRN CATHETER IF CATHETER REMAINS OCCULUDED; Start 02/16/19 at 04:00 Vancomycin HCl 1.5 gm/Sodium Chloride 250 ml @ 83.333 mls/ hr Q12H IVPB Last administered on 02/25/19at 05:44; Admin Dose 83.333 MLS/HR; Start 02/19/19 at 05:00 Acetaminophen/ Hydrocodone Bitart (Lena (5/325)) 1 tab Q4H PRN PO MODERATE PAIN LEVEL 4-6 Last administered on 02/25/19at 12:34; Admin Dose 1 TAB; Start 02/20/19 at 14:00 Al Hydrox/Mg Hydrox/Simethicone (Mag-Al Plus) 30 ml Q6H PRN PO GASTROINTESTINAL UPSET Last administered on 02/22/19 15:37; Admin Dose 30 ML; Start 02/21/19 at 23:00 Pantoprazole (Protonix Tab) 40 mg DAILY@06 PO Last administered on 02/25/19 05:06; Admin Dose 40 MG; Start 02/22/19 at 15:30 Ceftazidime/ Dextrose 50 ml @ 100 mls/hr Q8 IVPB Last administered on 02/25/19 13:04; Admin Dose 100 MLS/HR; Start 02/23/19 at 22:00 Metronidazole (Flagyl) 500 mg Q8 PO Last administered on 02/25/19 13:04; Admin Dose 500 MG; Start 02/23/19 at 22:00 Miscellaneous Information (*Rx Drug Level Order Reminder*) VANCO TR AT 1600 1600 ONCE XX ; Start 02/25/19 at 16:00; Stop 02/25/19 at 16:01 Hydromorphone HCl (Dilaudid) 2 mg Q4 PRN IV SEVERE PAIN LEVEL 7-10 Last administered on 02/25/19 10:57; Admin Dose 2 MG; Start 02/24/19 at 17:00 Multivitamins Therapeutic (Theragran) 1 tab DAILY PO Last administered on 02/25 08:15; Admin Dose 1 TAB; Start 02/25/19 at 09:00 Ascorbic Acid (Vitamin C) 500 mg BID PO Last administered on 02/25/19 08:15; Admin Dose 500 MG; Start 02/24/19 at 21:00 Zinc Sulfate (Zinc Sulfate) 220 mg DAILY PO Last administered on 02/25/19 08:22; Admin Dose 220 MG; Start 02/25/19 at 09:00; Stop 03/10/19 at 09:00 VERO ARELLANO 19, 2019 14:20
[2019-02-25 14:29] VITALS: BP 106/61; PULSE 84; RESP 16
--- NOTE | 2019-02-25 17:47 | PN ---
Date/Time of Note Date/Time of Note DATE: 02/25/19 TIME: 17:46 Assessment/Plan VTE Prophylaxis Risk score (from Nsg)>0 risk: 5 SCD applied (from Ns): No SCD contraindicated: other Pharmacological prophylaxis: apixaban Lines/Catheters IV Catheter Type (from Nrsg): PICC Line Central line still needed: Yes Urinary Cath still in place: No Assessment/Plan Hospital Course Patient remains hemodynamically stable, pain is well controlled, pending arrangement for home health for wound care and antibiotics at home for 4 weeks, discussed with case management today. Assessment/Plan -Chronic peripheral vascular disease, history of angioplasty x2. Dr. Sheppard is following in vascular surgery consultation. S/p right pop DP bypass on 02/13/19. -Right heel necrotic wound. Dr. Mata is following in podiatry consultation. Status post debridement and application of allograft on 02/18/2019. Continue antibiotics per ID. Dr. Urbano is following in infection disease consultation. 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 EUS and FNA as an outpatient to confirm GIST tumor diagnosis. Continue PPI. -New onset of anemia and hypotension requiring blood transfusion on 01/15/2019, stool for OB is negative. -Coronary artery disease, status post coronary artery bypass graft. -Cardiomyopathy with ejection fraction of 25%. Continue Coreg. Dr. Foster is following in cardiology consultation. -Status post AICD. -Hx of Hypertension. -Diabetes hemoglobin A1c 7.6. Continue Lantus and NovoLog. -Right knee contusion and abrasion status post fall. Status post evaluation by Dr. Zelaya and orthopedic surgery. No signs of fracture or dystrophic dislocation. -Chronic low back pain with significant spondylolisthesis grade II at the level of L5 to S1. Status post evaluation and pain management by Dr. Robertson and pain management consultation. Further recommendations based on clinical course. Plan of care discussed with Dr. Mann. Result Diagram: 02/24/19 0549 02/24/19 0549 Results 24hrs Laboratory Tests Test 02/24/19 21:01 02/25/19 07:45 02/25/19 11:51 02/25/19 15:56 Bedside Glucose 130 131 115 Vancomycin Level 14.3 Trough Test 02/25/19 16:51 Bedside Glucose 118 Exam/Review of Systems Exam Vitals Vital Signs Date Temp Pulse Resp B/P (MAP) Pulse Ox O2 O2 Flow FiO2 Time Delivery Rate 02/25/19 98.2 84 16 106/61 100 14:29 (76) 02/23/19 Room Air 14:39 Intake and Output 02/24/19 02/24/19 02/25/19 1515:00 23:00 07:00 IntakeIntake Total 300 ml 2500 ml 1050 ml OutputOutput Total 1850 ml 2400 ml BalanceBalance 300 ml 650 ml -1350 ml Exam Constitutional: alert, oriented Respiratory: clear to auscultation Cardiovascular: regular rhythm and rate, AICD Gastrointestinal: soft, non-tender Extremities: normal pulses, other (Right heel wound with wound vac, R leg surgical incision covered with dressing) RUE PICC Results Results 24hrs Laboratory Tests Test 02/24/19 21:01 02/25/19 07:45 02/25/19 11:51 02/25/19 15:56 Bedside Glucose 130 131 115 Vancomycin Level 14.3 Trough Test 02/25/19 16:51 Bedside Glucose 118 Medications Medication Current Medications Amiodarone HCl (Cordarone) 200 mg DAILY PO Last administered on 02/25/19at 08:16; Admin Dose 200 MG; Start 01/10/19 at 09:00 Digoxin (Digoxin) 0.125 mg DAILY@1300 PO Last administered on 02/25/19at 13:06; Admin Dose 0.125 MG; Start 01/10/19 at 13:00 Gabapentin (Neurontin) 600 mg DAILY PO Last administered on 02/25/19at 08:22; Admin Dose 600 MG; Start 01/10/19 at 09:00 Empaglifozin (Jardiance) 25 mg DAILY PO Last administered on 02/25/19at 08:15; Admin Dose 25 MG; Start 01/10/19 at 09:00 Linagliptin (Tradjenta) 5 mg DAILY PO Last administered on 02/25/19 08:17; Admin Dose 5 MG; Start 01/10/19 at 09:00 Diagnostic Test (Pha) (Accu-Chek) 1 ea 02 XX Last administered on 02/17/19at 02:35; Admin Dose 1 EA; Start 01/10/19 at 02:00 Miscellaneous Information 1 ea NOTE XX ; Start 01/09/19 at 21:30 Glucose (Glutose) 15 gm Q15M PRN PO DECREASED GLUCOSE; Start 01/09/19 at 21:30 Glucose (Glutose) 22.5 gm Q15M PRN PO DECREASED GLUCOSE; Start 01/09/19 at 21:30 Dextrose (D50w Syringe) 50 ml Q15M PRN IV DECREASED GLUCOSE; Start 01/09/19 at 21:30 Glucagon (Glucagen) 1 mg Q15M PRN IM DECREASED GLUCOSE; Start 01/09/19 at 21:30 Glucose (Glutose) 15 gm Q15M PRN BUCCAL DECREASED GLUCOSE; Start 01/09/19 at 21:30 Insulin Glargine (Lantus) 18 units QHS SC Last administered on 02/24/19 21:06; Admin Dose 18 UNITS; Start 01/09/19 at 22:30 Carvedilol (Coreg) 3.125 mg BID PO Last administered on 02/24/19 09:31; Admin Dose 3.125 MG; Start 01/10/19 at 21:00 Vancomycin HCl (Vanco Iv Per Pharmacy) VANCOMYCIN PER PHARMACY PER PROTOCOL XX ; Start 01/11/19 at 02:30 Lisinopril (Zestril) 2.5 mg DAILY PO Last administered on 02/25/19 08:24; Admin Dose 2.5 MG; Start 01/13/19 at 09:00 Senna (Senokot) 1 tab DAILY PRN PO CONSTIPATION Last administered on 02/15/19 20:20; Admin Dose 1 TAB; Start 01/12/19 at 18:30 Neomycin/ Polymyxin/ Bacitracin (Neosporin Topical Oint) 1 applic DAILY TOP Last administered on 02/25/19 08:26; Admin Dose 1 APPLIC; Start 01/12/19 at 18:30 Cyanocobalamin (Vitamin B12 Inj) 1,000 mcg DAILY IM Last administered on 02/25/19 08:13; Admin Dose 1,000 MCG; Start 01/16/19 at 09:00 Insulin Aspart (Novolog Insulin Pen) NOVOLOG *MODERATE* ALGORITHM WITH MEALS BEDTIME SC Last administered on 02/24/19 08:27; Admin Dose 2 UNIT; Start 01/26/19 at 21:00 IV Flush (NS 10 ml) 10 ml PRN PRN IV IV PROTOCOL Last administered on 02/21/19 08:27; Admin Dose 10 ML; Start 01/29/19 at 17:00 Docusate Sodium (Colace) 100 mg BID PO Last administered on 02/25/19 08:14; Admin Dose 100 MG; Start 02/07/19 at 21:00 Magnesium Hydroxide (Milk Of Mag) 30 ml BID PRN PO CONSTIPATION Last admini stered on 02/22/19 20:29; Admin Dose 30 ML; Start 02/08/19 at 14:00 Sodium Hypochlorite (Dakins Diluted ()) 1 applic DAILY TP Last administered on 02/24/19 14:14; Admin Dose 1 APPLIC; Start 02/09/19 at 13:00 Acetaminophen (Tylenol Tab) 650 mg Q4H PRN PO MILD PAIN(1-3)OR ELEVATED TEMP; Start 02/10/19 at 22:00 Ondansetron HCl (Zofran Inj) 4 mg Q6H PRN IV NAUSEA AND/OR VOMITING Last administered on 02/22/19 08:27; Admin Dose 4 MG; Start 02/10/19 at 22:00 Furosemide (Lasix) 20 mg DAILY PO Last administered on 02/25/19 08:17; Admin Dose 20 MG; Start 02/13/19 at 09:00 Cyclobenzaprine HCl (Flexeril) 5 mg BID PO Last administered on 02/25/19 08:23; Admin Dose 5 MG; Start 02/13/19 at 09:00 Apixaban (Eliquis) 2.5 mg BID PO Last administered on 02/25/19 08:17; Admin Dose 2.5 MG; Start 02/14/19 at 12:00 Miscellaneous Information (Pending Santyl Order For Wound Care) This patient metz... PRN PRN XX WOUND CARE; Start 02/15/19 at 04:30 Alteplase, Recombinant (Cathflo (Activase)) 2 mg MAY REPEAT X1 PRN CATHETER IF CATHETER REMAINS OCCULUDED; Start 02/15/19 at 21:00 Alteplase, Recombinant (Cathflo (Activase)) 2 mg MAY REPEAT X1 PRN CATHETER IF CATHETER REMAINS OCCULUDED; Start 02/16/19 at 04:00 Vancomycin HCl 1.5 gm/Sodium Chloride 250 ml @ 83.333 mls/ hr Q12H IVPB Last administered on 02/25/19 17:32; Admin Dose 83.333 MLS/HR; Start 02/19/19 at 05:00 Acetaminophen/ Hydrocodone Bitart (Scott (5/325)) 1 tab Q4H PRN PO MODERATE PAIN LEVEL 4-6 Last administered on 02/25/19 16:48; Admin Dose 1 TAB; Start 02/20/19 at 14:00 Al Hydrox/Mg Hydrox/Simethicone (Mag-Al Plus) 30 ml Q6H PRN PO GASTROINTESTINAL UPSET Last administered on 02/22/19 15:37; Admin Dose 30 ML; Start 02/21/19 at 23:00 Pantoprazole (Protonix Tab) 40 mg DAILY@06 PO Last administered on 02/25/19 05:06; Admin Dose 40 MG; Start 02/22/19 at 15:30 Ceftazidime/ Dextrose 50 ml @ 100 mls/hr Q8 IVPB Last administered on 02/25/19 13:04; Admin Dose 100 MLS/HR; Start 02/23/19 at 22:00 Metronidazole (Flagyl) 500 mg Q8 PO Last administered on 02/25/19 13:04; Admin Dose 500 MG; Start 02/23/19 at 22:00 Hydromorphone HCl (Dilaudid) 2 mg Q4 PRN IV SEVERE PAIN LEVEL 7-10 Last administered on 02/25/19 15:04; Admin Dose 2 MG; Start 02/24/19 at 17:00 Multivitamins Therapeutic (Theragran) 1 tab DAILY PO Last administered on 02/25/19 08:15; Admin Dose 1 TAB; Start 02/25/19 at 09:00 Ascorbic Acid (Vitamin C) 500 mg BID PO Last administered on 02/25/19 08:15; Admin Dose 500 MG; Start 02/24/19 at 21:00 Zinc Sulfate (Zinc Sulfate) 220 mg DAILY PO Last administered on 02/25/19 08:22; Admin Dose 220 MG; Start 02/25/19 at 09:00; Stop 03/10/19 at 09:00 RAMESH SOLORZANO Feb 25, 2019 17:47
[2019-02-25 20:00] VITALS: BP 113/67; PULSE 77; RESP 18
[2019-02-25] MEDS: INSULIN GLARGINE [LANTus] (100 UNITS/ML) SYG SC SCH (20:36)
[2019-02-26] MEDS: HYDROCODONE/APAP (5/325) TAB PO PRN ×4 (01:55→18:13)
[2019-02-26 02:00] VITALS: BP 101/61; PULSE 79; RESP 18
[2019-02-26] MEDS: HYDROmorphONE 2 MG/ML SYG IV PRN ×5 (02:56→19:50)
[2019-02-26] MEDS: VANCOMYCIN HCL 1.5 GM in SOD CHLORIDE 0.9% 250 ML IVPB SCH ×2 (04:54→17:27)
[2019-02-26] MEDS: PANTOPRAZOLE (EC) 40 MG TAB PO SCH (04:54)
[2019-02-26] MEDS: metroNIDAZOLE 500 MG TAB PO SCH ×2 (04:54→13:51)
[2019-02-26] MEDS: CEFTAZIDIME 2GM/50 ML (PMX) 50 ML IVPB SCH ×2 (04:54→13:51)
[2019-02-26] MEDS: INSULIN ASPART [NOVOLOG] 3 ML PEN SC SCH ×3 (08:00→18:05)
[2019-02-26 08:23] VITALS: BP 97/58; PULSE 74; RESP 18
[2019-02-26] MEDS: LISINOPRIL 5 MG TAB PO SCH (09:00)
[2019-02-26] MEDS: DAKINS 0.0125%(1/40) 473 ML SOLUTION TP SCH (09:00)
[2019-02-26] MEDS: CYANOCOBALAMIN 1000 MCG INJ IM SCH (09:28)
[2019-02-26] MEDS: DOCUSATE SODIUM 100 MG CAP PO SCH (09:28)
[2019-02-26] MEDS: APIXABAN 5 MG TABLET PO SCH (09:28)
[2019-02-26] MEDS: AMIODARONE 200 MG TAB PO SCH (09:28)
[2019-02-26] MEDS: CYCLOBENZAPRINE 10 MG TAB PO SCH (09:29)
[2019-02-26] MEDS: EMPAGLIFLOZIN 10 MG TABLET PO SCH (09:29)
[2019-02-26] MEDS: GABAPENTIN 300 MG CAP PO SCH (09:30)
[2019-02-26] MEDS: FUROSEMIDE 20 MG TAB PO SCH (09:30)
[2019-02-26] MEDS: MULTIVITAMINS THERAPEUTIC TAB PO SCH (09:30)
[2019-02-26] MEDS: ZINC SULFATE 220 MG CAP PO SCH (09:30)
[2019-02-26] MEDS: ASCORBIC ACID 500 MG TAB PO SCH (09:30)
[2019-02-26] MEDS: LINAGLIPTIN 5 MG TABLET PO SCH (09:30)
[2019-02-26] MEDS: NEOMYC/POLYMYX/BACIT 30 GM OINT TOP SCH (09:31)
--- NOTE | 2019-02-26 13:09 | CONS ---
Assessment/Plan Assessment/Plan Hospital Course (Demo Recall) IMP: 1.Pre-op for peripheral bypass surgery. Lexiscan with no ischemia/+scar EF 28%. Echo EF 25%. OK to proceed to surgery at moderate CV risk. Now POD#3 s/p R POP- DP peripheral bypass. Now s/p heel debridement today 2.Cardiomyopathy with low EF-severely depressed by echo this admit 3.Hoth-borderline today 4.HL 5.Non-healing LE ulcer 6.PAD-severe s/p prior ROUTEMAN. Now POD#1 s/p POP to DP r side 7.DM 8. 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 Recc: -On med-surg -Continue digoxin -Continue coreg and zestril for treatment of cardiomyopathy -Continue amiodarone -Continue abx's and f/u cx data -local wound care -Contine lasix po daily and follow volume status closely -pain control -Continue eliquis -s/p debridement of ulcer/continue local wound care Consultation Date/Type/Reason Admit Date/Time January 09, 2019 at 18:17 Initial Consult Date 01/10/19 Type of Consult Cardiology Reason for Consultation cardiomyopathy Requesting Provider: KRISTIN PRYOR MD Date/Time of Note DATE: 02/26/19 TIME: 13:07 Exam/Review of Systems Vital Signs Vitals Vital Signs Date Temp Pulse Resp B/P (MAP) Pulse Ox O2 O2 Flow FiO2 Time Delivery Rate 02/26/19 98.0 74 18 97/58 (71) 99 08:23 02/26/19 Room Air 02:00 Intake and Output 02/25/19 02/25/19 02/26/19 1515:00 23:00 07:00 IntakeIntake Total 1500 ml 1543.333 ml 550 ml OutputOutput Total 1000 ml 1100 ml BalanceBalance 500 ml 443.333 ml 550 ml Exam Exam Review of Systems: CONSTITUTIONAL: No fevers, chills. PULMONARY: No sob CARDIOVASCULAR: No chest pain/palpitations GASTROINTESTINAL: No nausea/vomiting. GENITOURINARY: No hematuria/dysuria. MUSCULOSKELETAL: No myagias/arthalgias. PSYCHIATRIC: The patient denies depression. NEUROLOGIC: No weakness Constitutional: alert, oriented Psych: no complaints Head: normocephalic ENMT: mucosa pink and moist Neck: supple, jvd (9 cm water) Respiratory: diminished breath sounds (at bases/B) Cardiovascular: regular rate and rhythm Gastrointestinal: soft, non-tender Musculoskeletal: muscle tone (normal) Extremities: edema (none) 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: other (No focalo deficits) Labs Result Diagram: 02/24/19 0549 02/26/19 0521 Results 24hrs Laboratory Tests Test 02/25/19 15:56 02/25/19 16:51 02/25/19 20:31 02/26/19 05:21 Vancomycin Level 14.3 Trough Bedside Glucose 118 133 Blood Urea Nitrogen 15 Creatinine 0.64 Test 02/26/19 08:23 02/26/19 12:11 Bedside Glucose 123 112 Medications Medications Current Medications Amiodarone HCl (Cordarone) 200 mg DAILY PO Last administered on 02/26/19at 09:28; Admin Dose 200 MG; Start 01/10/19 at 09:00 Digoxin (Digoxin) 0.125 mg DAILY@1300 PO Last administered on 02/25/19at 13:06; Admin Dose 0.125 MG; Start 01/10/19 at 13:00 Gabapentin (Neurontin) 600 mg DAILY PO Last administered on 02/26/19 09:30; Admin Dose 600 MG; Start 01/10/19 at 09:00 Empaglifozin (Jardiance) 25 mg DAILY PO Last administered on 02/26/19 09:29; Admin Dose 25 MG; Start 01/10/19 at 09:00 Linagliptin (Tradjenta) 5 mg DAILY PO Last administered on 02/26/19 09:30; Admin Dose 5 MG; Start 01/10/19 at 09:00 Diagnostic Test (Pha) (Accu-Chek) 1 ea 02 XX Last administered on 02/17/19at 02:35; Admin Dose 1 EA; Start 01/10/19 at 02:00 Miscellaneous Information 1 ea NOTE XX ; Start 01/09/19 at 21:30 Glucose (Glutose) 15 gm Q15M PRN PO DECREASED GLUCOSE; Start 01/09/19 at 21:30 Glucose (Glutose) 22.5 gm Q15M PRN PO DECREASED GLUCOSE; Start 01/09/19 at 21:30 Dextrose (D50w Syringe) 50 ml Q15M PRN IV DECREASED GLUCOSE; Start 01/09/19 at 21:30 Glucagon (Glucagen) 1 mg Q15M PRN IM DECREASED GLUCOSE; Start 01/09/19 at 21:30 Glucose (Glutose) 15 gm Q15M PRN BUCCAL DECREASED GLUCOSE; Start 01/09/19 at 21:30 Insulin Glargine (Lantus) 18 units QHS SC Last administered on 02/25/19 20:36; Admin Dose 18 UNITS; Start 01/09/19 at 22:30 Carvedilol (Coreg) 3.125 mg BID PO Last administered on 02/25/19 20:34; Admin Dose 3.125 MG; Start 01/10/19 at 21:00 Vancomycin HCl (Vanco Iv Per Pharmacy) VANCOMYCIN PER PHARMACY PER PROTOCOL XX ; Start 01/11/19 at 02:30 Lisinopril (Zestril) 2.5 mg DAILY PO Last administered on 02/25/19 08:24; Admin Dose 2.5 MG; Start 01/13/19 at 09:00 Senna (Senokot) 1 tab DAILY PRN PO CONSTIPATION Last administered on 02/15/19 20:20; Admin Dose 1 TAB; Start 01/12/19 at 18:30 Neomycin/ Polymyxin/ Bacitracin (Neosporin Topical Oint) 1 applic DAILY TOP Last administered on 02/26/19 09:31; Admin Dose 1 APPLIC; Start 01/12/19 at 18:30 Cyanocobalamin (Vitamin B12 Inj) 1,000 mcg DAILY IM Last administered on 02/26/19 09:28; Admin Dose 1,000 MCG; Start 01/16/19 at 09:00 Insulin Aspart (Novolog Insulin Pen) NOVOLOG *MODERATE* ALGORITHM WITH MEALS BEDTIME SC Last administered on 02/24/19 08:27; Admin Dose 2 UNIT; Start 01/26/19 at 21:00 IV Flush (NS 10 ml) 10 ml PRN PRN IV IV PROTOCOL Last administered on 02/21/19 08:27; Admin Dose 10 ML; Start 01/29/19 at 17:00 Docusate Sodium (Colace) 100 mg BID PO Last administered on 02/26/19 09:28; Admin Dose 100 MG; Start 02/07/19 at 21:00 Magnesium Hydroxide (Milk Of Mag) 30 ml BID PRN PO CONSTIPATION Last administered on 6/16/19at 20:29; Admin Dose 30 ML; Start 02/08/19 at 14:00 Sodium Hypochlorite (Dakins Diluted ()) 1 applic DAILY TP Last administered on 02/24/19 14:14; Admin Dose 1 APPLIC; Start 02/09/19 at 13:00 Acetaminophen (Tylenol Tab) 650 mg Q4H PRN PO MILD PAIN(1-3)OR ELEVATED TEMP; Start 02/10/19 at 22:00 Ondansetron HCl (Zofran Inj) 4 mg Q6H PRN IV NAUSEA AND/OR VOMITING Last administered on 02/22/19 08:27; Admin Dose 4 MG; Start 02/10/19 at 22:00 Furosemide (Lasix) 20 mg DAILY PO Last administered on 02/26/19 09:30; Admin Dose 20 MG; Start 02/13/19 at 09:00 Cyclobenzaprine HCl (Flexeril) 5 mg BID PO Last administered on 02/26/19 09:29; Admin Dose 5 MG; Start 02/13/19 at 09:00 Apixaban (Eliquis) 2.5 mg BID PO Last administered on 02/26/19 09:28; Admin Dose 2.5 MG; Start 02/14/19 at 12:00 Miscellaneous Information (Pending [facility] Order For Wound Care) This patient metz... PRN PRN XX WOUND CARE; Start 02/15/19 at 04:30 Alteplase, Recombinant (Cathflo (Activase)) 2 mg MAY REPEAT X1 PRN CATHETER IF CATHETER REMAINS OCCULUDED; Start 02/15/19 at 21:00 Alteplase, Recombinant (Cathflo (Activase)) 2 mg MAY REPEAT X1 PRN CATHETER IF CATHETER REMAINS OCCULUDED; Start 02/16/19 at 04:00 Vancomycin HCl 1.5 gm/Sodium Chloride 250 ml @ 83.333 mls/ hr Q12H IVPB Last administered on 02/26/19at 04:54; Admin Dose 83.333 MLS/HR; Start 02/19/19 at 05:00 Acetaminophen/ Hydrocodone Bitart ([place] (5/325)) 1 tab Q4H PRN PO MODERATE PAIN LEVEL 4-6 Last administered on 02/26/19at 05:58; Admin Dose 1 TAB; Start 02/20/19 at 14:00 Al Hydrox/Mg Hydrox/Simethicone (Mag-Al Plus) 30 ml Q6H PRN PO GASTROINTESTINAL UPSET Last administered on 02/22/19 15:37; Admin Dose 30 ML; Start 02/21/19 at 23:00 Pantoprazole (Protonix Tab) 40 mg DAILY@06 PO Last administered on 02/26/19 04:54; Admin Dose 40 MG; Start 02/22/19 at 15:30 Ceftazidime/ Dextrose 50 ml @ 100 mls/hr Q8 IVPB Last administered on 02/26/19 04:54; Admin Dose 100 MLS/HR; Start 02/23/19 at 22:00 Metronidazole (Flagyl) 500 mg Q8 PO Last administered on 02/26/19 04:54; Admin Dose 500 MG; Start 02/23/19 at 22:00 Hydromorphone HCl (Dilaudid) 2 mg Q4 PRN IV SEVERE PAIN LEVEL 7-10 Last administered on 02/26/19 11:16; Admin Dose 2 MG; Start 02/24/19 at 17:00 Multivitamins Therapeutic (Theragran) 1 tab DAILY PO Last administered on 02/26/19 09:30; Admin Dose 1 TAB; Start 02/25/19 at 09:00 Ascorbic Acid (Vitamin C) 500 mg BID PO Last administered on 02/26/19 09:30; Admin Dose 500 MG; Start 02/24/19 at 21:00 Zinc Sulfate (Zinc Sulfate) 220 mg DAILY PO Last administered on 02/26/19 09:30; Admin Dose 220 MG; Start 02/25/19 at 09:00; Stop 03/10/19 at 09:00 Miscellaneous Information (*Order Clarification Bulletin) MEDICATION REQUIRES CLARIFICATI... Q8H XX ; Start 02/25/19 at 21:30 VERO ARELLANO Feb 26, 2019 13:09
[2019-02-26] MEDS ORDERED: PANT40TA4 PO (13:40)
[2019-02-26] MEDS ORDERED: MULTI PO (13:40)
[2019-02-26] MEDS ORDERED: METR500T PO (13:40)
[2019-02-26] MEDS ORDERED: ASC500 PO (13:40)
[2019-02-26] MEDS ORDERED: ZINC220C5 PO (13:40)
[2019-02-26] MEDS ORDERED: LAS20 PO (13:40)
[2019-02-26] MEDS ORDERED: DOCU-144 PO (13:40)
[2019-02-26] MEDS ORDERED: LISI-313 PO (13:40)
[2019-02-26] MEDS ORDERED: DIGO125T PO (13:40)
[2019-02-26] MEDS ORDERED: INSU100I33 SC (13:40)
[2019-02-26] MEDS ORDERED: APIX5TAB PO (13:40)
[2019-02-26] MEDS ORDERED: LINA5TAB PO (13:40)
[2019-02-26] MEDS ORDERED: CARV3.1260 PO (13:40)
[2019-02-26] MEDS ORDERED: GABA-526 PO (13:40)
[2019-02-26] MEDS ORDERED: AMIO200T4 PO (13:40)
[2019-02-26] MEDS ORDERED: CYAN100092 IM (13:40)
[2019-02-26] MEDS ORDERED: SENN-120 PO (13:40)
[2019-02-26] MEDS ORDERED: EMPA25TA PO (13:40)
--- NOTE | 2019-02-26 13:47 | QN ---
Documentation Comment No c/o. AFVSS R calf incision clean and dry, 3+ graft pulse, foot warm, VAC in place on the heel with good seal Labs OK - doing well s/p R pop-DP bypass - remove teressa and steristrip - followup with me in the [facility] next week VERO MAHONEY MD Feb 26, 2019 13:47
[2019-02-26] MEDS: DIGOXIN 0.125 MG TAB PO SCH (13:54)
[2019-02-26 14:00] VITALS: BP 107/67; PULSE 74; RESP 17
[2019-02-26 20:00] VITALS: BP 114/65; PULSE 73; RESP 18
--- NOTE | 2019-02-26 20:40 | DS ---
Date/Time of Note Date/Time of Note DATE: 02/26/19 TIME: 20:36 Discharge Summary Admission/Discharge Info Admit Date/Time January 09, 2019 at 18:17 Discharge Date/Time Patient Condition: Stable Hx of Present Illness The patient is a 63-year-old gentleman with history of coronary artery disease, status post CABG, also status post AICD placement. The patient also has history of hypertension, diabetes, peripheral vascular disease, status post aortogram and right lower extremity runoff and percutaneous angioplasty of the posterior tibial artery and anterior tibial artery in 10/2018. The patient, however, continued to have worsening of his wound. The patient is being followed by Dr. Mian Mata from podiatry standpoint and Dr. Bakari Sheppard from a medical standpoint. The patient apparently is noncompliant and has missed several appointments in [facility]. In 11/2018, he underwent excisional debridement of the right heel. The patient apparently was also placed on oral antibiotic as an outpatient. Details are not available. The patient back in October 2018 had a wound culture from right heel, which revealed E. coli, but only scant growth, which was sensitive to third generation cephalosporins and aminoglycosides. The patient was sent to ER by Dr. Sheppard for further evaluation and management. The patient was seen in ER and was found to have normal white count. The patient did not have any fever or chills. The patient did have significant pain and therefore, patient was admitted for evaluation and management. The patient did have his defibrillator go off a couple of times back in 11/2018. The patient went to see Dr. Ronnell Eduardo who had been following him from electrophysiology standpoint and possibly also from cardiac standpoint. The patient was told that his AICD battery needs to be changed, but patient does not know whether it has been scheduled or not. The patient denied any anginal chest pain. No reported fever or chills. No reported nausea or vomiting. No reported headache, dizziness or syncope. Hospital Course Pt d/[place] home with IV, wound care, wound vac , and PICC line care services. -Chronic peripheral vascular disease, history of angioplasty x2. Dr. Sheppard is following in vascular surgery consultation. S/p right pop DP bypass on 02/13/19. -Right heel necrotic wound. Dr. Mata is following in podiatry consultation. Status post debridement and application of allograft on 02/18/2019. Continue antibiotics per ID. Dr. Urbano is following in infection disease consultation. 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 EUS and FNA as an outpatient to confirm GIST tumor diagnosis. Continue PPI. -New onset of anemia and hypotension requiring blood transfusion on 01/15/2019, stool for OB is negative. -Coronary artery disease, status post coronary artery bypass graft. -Cardiomyopathy with ejection fraction of 25%. Continue Coreg. Dr. Foster is following in cardiology consultation. -Status post AICD. -Hx of Hypertension. -Diabetes hemoglobin A1c 7.6. Continue Lantus and NovoLog. -Right knee contusion and abrasion status post fall. Status post evaluation by Dr. Zelaya and orthopedic surgery. No signs of fracture or dystrophic dislocation. -Chronic low back pain with significant spondylolisthesis grade II at the level of L5 to S1. Status post evaluation and pain management by Dr. Robertson and pain management consultation. Plan of care discussed with Dr. Mann. Home Meds Active Scripts Multivitamins* (Theragran*) 1 Tab Tab, 1 TAB PO DAILY for 30 Days, TAB Prov:RAMESH SOLORZANO 02/26/19 Cyanocobalamin (Vitamin B-12) (Cyanocobalamin Injection) 1,000 Mcg/1 Ml Vial, 1000 MCG IM DAILY for 30 Days, VIAL Prov:RAMESH SOLORZANO 02/26/19 Ascorbic Acid (Vitamin C) 500 Mg Tab, 500 MG PO BID for 30 Days, TAB Prov:RAMESH SOLORZANO 02/26/19 Sennosides* (Senna Lax*) 8.6 Mg Tablet, 1 TAB PO DAILY PRN for CONSTIPATION, #30 TAB Prov:RAMESH SOLORZANO 02/26/19 Linagliptin (TRADJENTA) 5 Mg Tablet, 5 MG PO DAILY for 30 Days, TAB Prov:RAMESH SOLORZANO 02/26/19 Pantoprazole* (Pantoprazole*) 40 Mg Tablet., 40 MG PO DAILY@06 for 30 Days Prov:RAMESH SOLORZANO 02/26/19 Docusate Sodium* (Colace*) 100 Mg Capsule, 100 MG PO BID for 30 Days, CAP Prov:RADCHEN02/26/19 Zinc Sulfate* (Zinc Sulfate*) 220 Mg Cap, 220 MG PO DAILY for 30 Days, CAP Prov:02/26/19 Furosemide (Lasix) 20 Mg Tab, 20 MG PO DAILY for 30 Days, TAB Prov:02/26/19 Lisinopril* (Lisinopril*) 5 Mg Tablet, 2.5 MG PO DAILY for 30 Days, TAB Prov:02/26/19 Carvedilol* (Carvedilol*) 3.125 Mg Tablet, 3.125 MG PO BID for 30 Days, TAB Prov:02/26/19 Apixaban* (Eliquis*) 5 Mg Tablet, 2.5 MG PO BID for 30 Days, TAB Prov:02/26/19 Metronidazole* (Flagyl*) 500 Mg Tablet, 500 MG PO Q8 for 15 Days, TAB Prov:02/26/19 Amiodarone Hcl* (Amiodarone Hcl*) 200 Mg Tablet, 200 MG PO DAILY, #30 TAB Prov:02/26/19 Digoxin* (Digitek*) 125 Mcg Tablet, 0.125 MG PO DAILY for 30 Days, TAB Prov:02/26/19 Empagliflozin (Jardiance) 25 Mg Tablet, 25 MG PO DAILY for 30 Days, TAB Prov:02/26/19 Insulin Glargine,Hum.rec.anlog (Basaglar Kwikpen U-100) 100 Unit/1 Ml Insuln.pen, 18 UNIT SC QHS for 30 Days, EA Prov:02/26/19 Gabapentin* (Gabapentin*) 600 Mg Tablet, 600 MG PO DAILY for 30 Days, TAB Prov:02/26/19 Reported Medications Rivaroxaban* (Xarelto*) 20 Mg Tablet, 20 MG PO WITH DINNER, TAB 01/09/19 Clopidogrel Bisulfate* (Clopidogrel Bisulfate*) 75 Mg Tablet, 75 MG PO DAILY, #3 0 TAB 01/09/19 Sulfamethoxazole/Trimethoprim* (Bactrim Ds* Tablet) 1 Each Tablet, 1 TAB PO BID, TAB FOR 10 DAYS,START TAKING 01/06/19 01/09/19 Tapentadol Hcl (Nucynta) 100 Mg Tablet, 100 MG PO BID, TAB 01/09/19 Metformin Hcl* (Metformin Hcl*) 1,000 Mg Tablet, 1000 MG PO WITH BREAKFAST DINNE, #60 TAB 01/09/19 Follow-up Plan Discharge home with home health services for IV Vanco and ceftazidime until March 13, PICC line care and wound care with wound VAC. Patient is to follow-up with Dr. Mata in podiatry consultation and Dr. Sheppard in vascular surgery consul tation in 1 week, patient is to follow-up with Dr. Roberts , GI, for ultrasound- guided biopsy of gastric mass, patient is to follow-up with PMD in 2 to 3 weeks. Primary Care Provider Not On Staff Doctor Time spent on discharge: > 30 minutes Pending Labs Laboratory Tests Test 02/26/19 05:21 02/26/19 08:23 02/26/19 12:11 02/26/19 18:27 Blood Urea 15 mg/dl (7-20) Nitrogen Creatinine 0.64 mg/dl (0.61-1.2 4) Bedside 123 112 137 Glucose mg/dL (70-220) mg/dL (70-220) mg/dL (70-220) RAMESH SOLORZANO Feb 26, 2019 20:40
== END 2019-02-26 20:35 | disposition home health service (06) | DRG 629 ==
LOC: E/R 14:04 → 2NE 18:17 → ICU 01-15 00:26 → TEL 01-17 17:28 → ICU 02-13 12:25 → 6WM 02-15 00:36 → PP2 02-17 19:07
PROVIDERS: ADMIT Internal Medicine; ATTEND Internal Medicine
PROC: B548ZZA Ultrasonography of Superior Vena Cava, Guidance (ICD-10-PCS; 2019-01-09)
PROC: 0QBL0ZZ Excision of Right Tarsal, Open Approach (ICD-10-PCS; principal; 2019-01-13 09:30)
PROC: 30233N1 Transfusion of Nonautologous Red Blood Cells into Peripheral Vein, Percutaneous Approach (ICD-10-PCS; 2019-01-15)
PROC: 0DJ08ZZ Inspection of Upper Intestinal Tract, Via Natural or Artificial Opening Endoscopic (ICD-10-PCS; 2019-01-23)
PROC: 02HV33Z Insertion of Infusion Device into Superior Vena Cava, Percutaneous Approach (ICD-10-PCS; 2019-01-29)
PROC: 041M09P Bypass Right Popliteal Artery to Foot Artery with Autologous Venous Tissue, Open Approach (ICD-10-PCS; 2019-02-13)
PROC: 06BP4ZZ Excision of Right Saphenous Vein, Percutaneous Endoscopic Approach (ICD-10-PCS; 2019-02-13)
PROC: 0QBL0ZZ Excision of Right Tarsal, Open Approach (ICD-10-PCS; 2019-02-18)
DX: E11.621 Type 2 diabetes mellitus with foot ulcer (principal); L97.419 Non-pressure chronic ulcer of right heel and midfoot with unspecified severity; I42.9 Cardiomyopathy, unspecified; E11.52 Type 2 diabetes mellitus with diabetic peripheral angiopathy with gangrene; E11.40 Type 2 diabetes mellitus with diabetic neuropathy, unspecified; E11.8 Type 2 diabetes mellitus with unspecified complications; I11.0 Hypertensive heart disease with heart failure; I50.9 Heart failure, unspecified; I48.91 Unspecified atrial fibrillation; I25.5 Ischemic cardiomyopathy; Z95.810 Presence of automatic (implantable) cardiac defibrillator; I73.9 Peripheral vascular disease, unspecified; I25.10 Atherosclerotic heart disease of native coronary artery without angina pectoris; M19.90 Unspecified osteoarthritis, unspecified site; E78.5 Hyperlipidemia, unspecified; D64.9 Anemia, unspecified; Z95.1 Presence of aortocoronary bypass graft; E66.9 Obesity, unspecified; Z68.32 Body mass index [BMI] 32.0-32.9, adult; S80.01XA Contusion of right knee, initial encounter; S80.211A Abrasion, right knee, initial encounter; Z72.0 Tobacco use; Z79.4 Long term (current) use of insulin; R19.09 Other intra-abdominal and pelvic swelling, mass and lump; M43.17 Spondylolisthesis, lumbosacral region
CPT/HCPCS: 36415; 36430; 36569; 71045; 72110; 73562; 73700; 74176; 76937; 78452; 80048; 80053; 80061; 80202; 82270; 82565; 82607; 82728; 82746; 82962; 83036; 83540; 83605; 83735; 84153; 84154; 84484; 84520; 85025; 85045; 85049; 85610; 85651; 85670; 85730; 86140; 86850; 86900; 86901; 86920; 87070; 87075; 87081; 93005; 93017; 93306; 93970; 96365; 96375; 97110; 97116; 97162; 97530; A9500; A9505; C1751; C9113; C9363; J0131; J0690; J0692; J0696; J0713; J1170; J1644; J1650; J1815; J1940; J2001; J2185; J2250; J2270; J2370; J2405; J2785; J2916; J2997; J3010; J3370; J3420; J7040; J7050; J7120; P9016; Q4104; Q4118; Q9967